=== PATIENT | male | born 1960 | race Caucasian/White ===

== ENCOUNTER 2024-02-26 14:02 | Outpatient (OUT) | payer OTHER, SELFPAY ==
--- NOTE | 2024-02-26 16:02 | P.CN_ITS ---
Consult Note: HPI Data of Consult Patient: new to practice Consult date: 02/26/24 Requesting Physician: Erum Ye MD Primary Care Provider: Non-Staff Physician, Consult Narrative Reason for consult: low back, left leg pain Narrative: 63yom who presents for evaluation. longstanding low back and left leg pain. previously underwent lumbar tfesi in july 2023, with significant relief >50% for over 3 months. also underwent lumbar medial branch blocks, with significant relief. lumbar imaging reviewed, significant for stenosis at multiple levels, worst at l4-5 and l5-s1. continues in a series of provider directed home exercises >6 weeks, without lasting benefit. uses gabapentin. denies adverse med side effects. cc:: CC: Erum Ye MD Review of Systems ROS Status of ROS 10 or more systems reviewed and unremark able except as noted in history and below Meds Home Medications and Allergies Home Medications ?Medication ?Instructions ?Recorded ?Confirmed ?Type acetaminophen 300 mg-codeine 30 mg 1 tab PO TID 02/26/24 02/26/24 History tablet acetaminophen 300 mg-codeine 30 mg 1 tab PO TID PRN pain #90 tabs 02/26/24 Rx tablet atorvastatin 20 mg tablet 20 mg PO DAILY 02/26/24 02/26/24 History baclofen 10 mg tablet 10 mg PO TID 02/26/24 02/26/24 History bupropion HBr 174 mg 150 mg PO BID 02/26/24 02/26/24 History tablet,extended release 24 hr cilostazol 100 mg tablet 100 mg PO BID 02/26/24 02/26/24 History clopidogrel 75 mg tablet 75 mg PO DAILY 02/26/24 02/26/24 History gabapentin 800 mg tablet 800 mg PO TID 02/26/24 02/26/24 History metoprolol succinate 25 mg capsule 25 mg PO DAILY 02/26/24 02/26/24 History sprinkle, ext. release 24 hr pantoprazole 40 mg tablet,delayed 40 mg PO DAILY 02/26/24 02/26/24 History release ropinirole 1 mg tablet 1 mg PO DAILY 02/26/24 02/26/24 History Allergies Allergy/AdvReac Type Severity Reaction Status Date / Time No Known Drug Allergies Allergy Verified 02/26/24 15:27 Exam Narrative Exam Narrative: Psych-alert and oriented x 3. Attentive and appropriate, constitutionally normal, displays normal mood and affect per situation. There are no obvious deficits in memory, reasoning, or intellect.? Skin-no obvious rashes, bruising, erythema noted to the patient's area of pain.? Extremities- extremities are warm with minimal edema and palpable pulses Lumbar-tenderness to palpation noted in the lumbar spine and paraspinal musculature. Pain is elicited with flexion, extension, and lateral rotation of the lumbar spine. Range of motion is diminished with these motions. Facet loading maneuvers are positive. Strength-noted to be unremarkable with the exception of decreased strength rated at 4 out of 5 in left quadriceps femoris, anterior tibialis. Sensory-no notable sensory deficits in the bilateral lower extremities to touch or pinprick in all dermatomal distributions with the exception to decreased sensation to the left L3, 4, 5 dermatomal distribution Coordination remains intact.? Gait remains non-antalgic. Assessment and Plan Assessment and Plan (1) Lumbar stenosis with neurogenic claudication: (2) Lumbar spondylosis: Plan 63yom who presents for evaluation. failed conservative measures, as noted. imaging reviewed, as noted. given symptoms and imaging findings, prudent to attempt left l4-5, l5-s1 transforaminal epidural steroid injection under fluoroscopic guidance. he is in agreement. meds reviewed. pdmp reviewed. uds obtained. will trial t#3 tid prn. follow up after procedure.
== END 2024-02-26 14:03 | disposition home or self-care (01) ==
PROVIDERS: Visit Provider Anesthesiology
DX: M48.062 Spinal stenosis, lumbar region with neurogenic claudication (principal); M47.816 Spondylosis without myelopathy or radiculopathy, lumbar region
CPT/HCPCS: G0463

== ENCOUNTER 2024-03-11 10:12 | Day surgery (SDC) | payer OTHER, SELFPAY ==
--- OUTSIDE RECORDS SUMMARY | 2024-03-11 10:27 | XMS_ITS | CCD ---
Author Organization [facility] Care Team Providers Care Staff Design Engineer Name Role Phone IFTIKHAR FREY Unavailable Unavailable NILL, IFTIKHAR Unavailable Unavailable MISC, DOCTOR Unavailable Unavailable PARKER BUSH Unavailable Unavailable NILHeavenly, IFTIKHAR Unavailable Unavailable JESSICA GOLDBERG Unavailable Unavailable ARAVIND BURNETT Unavailable Unavailable CHELI BRAMBILA Unavailable Unavailable Niki Deras Primary Care Provider NIKI DERAS Primary Care Unavailable ANKITA MENDEZ Admitting Unavailable ANKITA MENDEZ Attending Unavailable ANKITA MENDEZ Attending Unavailable VIVIAN ANDERSON Primary Care Unavailable ANKITA MENDEZ Admitting Unavailable Vivian Anderson Primary Care Provider Niki Deras Primary Care Provider SHANEL FRITZ Referring Unavailable NIKI DERAS Primary Care Unavailable YASMEEN TRAN Consulting Unavailable ROME RICHARDS Admitting Unavailable ROME RICHARDS Attending Unavailable Unavailable Primary Care Provider UnavailMagalie Benjamin APRN, CNP Primary Care Pro vider Magalie HENNING Primary Care Physician Magalie HENNING Primary Care Physician Guille ALICEA Primary Care Physician Magalie Malagon APRN, CNP Primary Care Pro vider Guille Alicea MD Primary Care Provider Beth Elias Primary Care Physician [phone] Beth Rogers APRN, CNP Primary Care Provider Unavailable Primary Care Provider UnavailBeth Cho APRN, CNP Primary Care Provider Beth Elias Primary Care Physician BETH ELIAS Primary Care Unavailable AVA HERRON Referring Unavailable CURT, BETH Primary Care Unavailable AVA HERRON W Referring Unavailable O'LEONEL, BELTRAN P Admitting Unavailable O'LEONEL, BELTRAN P Attending Unavailable BETH ELIAS Primary Care Unavailable Cresencio Andrade Attending Unavailable Cresencio Andrade Referring Unavailable Lion Beckman Referring Unavailable MD Lion Beckman Admitting Unavailable Lion Beckman Attending Unavailable Mirian Ugarte Attending Unavailable Beth Elias Attending Unavailable Beth Elias Attending Unavailable Beth Elias Attending Unavailable Ivis Bella Attending Unavailable Beth Elias LShaun Admitting Unavailable Beth Elias Attending Unavailable Cresencio Andrade Admitting Unavailable Cresencio Andrade Attending Unavailable Beth Elias Referring Unavailable EMILY Aranda Attending UnavailBeth Thomas LShaun Referring Unavailable Isaias Eliasmy LShaun Referring Unavailable EMILY Aranda Admitting UnavailEMILY Abdul Attending UnavailBeth Thomas Referring Unavailable EMILY Aranda Admitting UnavailEMILY Abdul Attending UnavailCresencio Al Admitting Unavailable Cresencio Andrade Attending Unavailable Cresencio Andrade Referring Unavailable Erum Ye MD Attending Unavailable Allergies Allergy Classification Reported Allergen(s) Allergy Type Date of Onset Reaction(s) Facility (1 source) No Known Medication Allergies; Translations: [No Known Medication Allergies] Propensity to adverse reactions (disorder) [facility] Repository Medications Current Medications Medication Drug Class(es) Dates Sig (Normalized) Sig (Original) Tylenol (8 sources) Start: 04-07-2023 Tylenol Refill s(s) 0 Start Date: 04/07/23 Status: Ordered Start: 01-12-2021 acetaminophen (TYLENOL) tablet 650 mg Start: 06-18-2020 End: 06-18-2020 acetaminophen (TYLENOL) tabl et 650 mg albuterol 0.833 mg/ml / ipratropium bromide 0.167 mg/ml inhalation solution (1 source) Anticholinergic, beta2-Adrenergic Agonist Start: 05-18-2022 End: 05-19-2022 ipratropium-albuterol (DUONEB) nebulizer solution 1 ampule amoxicillin 875 mg / clavulanate 125 mg oral tablet (2 sources) Penicillin-class Antibacterial Start: 01-15-2021 End: 01-25-2021 take 1 tablet by mouth every twelve hours amoxicillin-clavulanate (AUGMENTIN) 875-125 MG per tablet Take 1 tablet by mouth every 12 hours for 10 days 20 tablet 0 01/15/2021 01/25/2021 Active Start: 01-15-2021 amoxicillin-cl avulanate (AUGMENTIN) 875-125 MG per tablet 1 tablet atorvastatin 20 mg oral tablet (20 sources) HMG-CoA Reductase Inhibitor Start: 10-17-2023 take 1 tablet by mouth once daily atorvastatin 20 mg Tab 20 mg = 1 tab(s), Oral, Daily, # 90 tab(s), Refills(s) 3, Pharmacy: [facility] #[id number], 176, cm, 09/07/23 15:47:00 EDT, Height/Length Dosing, 82, kg, 09/07/23 15:47:00 EDT, Weight Dosing Start Date: 10/17/23 Status: Ordered Start: 05-02-2023 take 1 tablet by mey [facility] once daily atorvastatin 20 mg Tab 20 mg = 1 tab(s), Oral, Daily, # 90 tab(s), Refills(s) 3, Pharmacy: [facility] #[id number], 178, cm, 05/02/23 9:17:00 EST, Height/Length Dosing, 84.2, kg, 05/02/23 9:17:00 EST, Weight Dosing Start Date: 05/02/23 Status: Ordered Start: 04-05-2021 End: 08-08-2022 take 1 tablet by mouth once daily atorvastatin 20 mg Tab 20 mg = 1 tab(s), Oral, Daily, # 30 tab(s), Refills(s) 0 Start Date: 01/14/22 Status: Ordered Comment on above: Take 20 mg by mouth once daily. baclofen 10 mg oral tablet (20 sources) gamma-Aminobutyric Acid-ergic Agonist Start: 10-17-2023 End: 01-15-2024 take 1 tablet by mouth three times daily as needed for pain baclofen 10 mg Tab 10 mg = 1 tab(s), Oral, TID, PRN Muscle pain, X 90 day(s), # 270 tab(s), Refills(s) 0, Pharmacy: [facility] #37, 176, cm, 09/07/23 15:47:00 EDT, Height/Length Dosing, 82, kg, 09/07/23 15:47:00 EDT, Weight Dosing Start Date: 10/17/23 Stop Date: 01/15/24 Status: Ordered Start: 06-16-2023 End: 09-14-2023 take 1 tablet by mouth three times daily as needed for pain baclofen 10 mg Tab 10 mg = 1 tab(s), Oral, TID, PRN Muscle pain, X 90 day(s), # 270 tab(s), Refills(s) 0, Pharmacy: [facility] #[id number], 178, cm, 06/16/23 7:55:00 EST, Height/Length Dosing, 84.2, kg, 05/02/23 9:17:00 EST, Weight Dosing Start Date: 06/16/23 Stop Date: 09/14/23 Status: Ordered Start: 01-28-2021 End: 03-16-2023 take 1 tablet by mouth three times daily as needed for pain baclofen 10 mg Tab 10 mg = 1 tab(s), Oral, TID, PRN Muscle pain, X 90 day(s), # 270 tab(s), Refills(s) 0, Pharmacy: [facility] #[id number], 178, cm, 11/11/22 9:15:00 EDT, Height/Length Dosing, 73, kg, 10/14/22 8:44:00 EDT, Weight Dosing Start Date: 12/16/22 Stop Date: 03/16/23 Status: Ordered Comment on above: Take 1 tablet by mey three times daily. 12 hr buPROPion hydrochloride 150 mg extended release oral tablet (11 sources) Aminoketone Start: take 1 tablet by mouth twice daily buPROPion 150 mg ER Tab 150 mg = 1 tab(s), Oral, BID, # 60 tab(s), Refills(s) 3, Pharmacy: [facility] #37, 176, cm, 09/07/23 15:47:00 EDT, Height/Length Dosing, 82, kg, 09/07/23 15:47:00 EDT, Weight Dosing Start Date: 10/17/23 Status: Ordered Start: 05-02-2023 take 1 tablet by me[facility] twice daily buPROPion 150 mg ER Tab 150 mg = 1 tab(s), Oral, BID, # 60 tab(s), Refills(s) 3, Pharmacy: [facility] #[id number], 178, cm, 05/02/23 9:17:00 EST, Height/Length Dosing, 84.2, kg, 05/02/23 9:17:00 EST, Weight Dosing Start Date: 05/02/23 Status: Ordered Start: 02-07-2023 take 1 tablet by [facility] twice daily buPROPion 150 mg ER Tab 150 mg = 1 tab(s), Oral, BID, # 60 tab(s), Refills(s) 3, Pharmacy: [facility] #[id number], 178, cm, 02/07/23 11:02:00 EDT, Height/Length Dosing, 77.3, kg, 02/07/23 11:02:00 EDT, Weight Dosing Start Date: 02/07/23 Status: Ordered calcium chloride 0.0014 meq/ ml / potassium chloride 0.004 meq/ml / sodium chloride 0.103 meq/ml / sodium lactate 0.028 meq/ml injectable solution (2 sources) Start: 06-18-2020 lactated ringe rs infusion Start: 06-05-2020 lactated ringe rs infusion cephalexin 500 mg oral capsule (4 sources) Cephalosporin Antibacterial Start: 03-17-2022 take 1 capsule by mouth every eight hours cephalexin 500 mg Cap 500 mg = 1 cap(s), Oral, q8hr, # 30 cap(s), Refills(s) 0, Pharmacy: [facility] #37, 178, cm, 03/17/22 8:30:00 EDT, Height/Length Dosing, 77.1, kg, 03/17/22 8:30:00 EDT, Weight Dosing Start Date: 03/17/22 Status: Ordered cilostazol 100 mg oral tablet (20 sources) Phosphodiesterase 3 Inhibitor Start: 10-17-2023 cilostazol 100 mg Tab See Instructions, Take one tablet twice a day, # 90 EA, Refills(s) 3, Pharmacy: [facility] #37, 176, cm, 09/07/23 15:47:00 EDT, Height/Length Dosing, 82, kg, 09/07/23 15:47:00 EDT, Weight Dosing Start Date: 10/17/23 Status: Ordered Start: 07-23-2021 take 1 tablet by mey th twice daily cilostazol 100 mg Tab TAKE 1 TABLET BY MOUTH TWICE DAILY Start Date: 12/27/21 Status: Ordered Comment on above: Take 100 mg by mouth twice daily. clopidogrel 75 mg oral tablet (20 sources) [id number] Platelet Inhibitor Start: 2 End: 3 take 1 tablet by mouth once daily Plavix 75 mg Tab 75 mg = 1 tab(s), Oral, Daily, Refills(s) 0 Start Date: 08/27/21 Status: Ordered Comment on above: Take 75 mg by mouth once daily. diatrizoate meglumine-sodium (GASTROGRAFIN) 66-10 % solution 30 mL (1 source) Start: 1 diatrizoate meglumine-sodium (GASTROGRAFIN) 66-10 % solution 30 mL docusate sodium 50 mg / sennosides, custodial 8.6 mg oral tablet (9 sources) take 8.6-50 mg by mouth once senna-docusate (PERICOLACE) 8.6-50 MG per tablet Take 1 tablet by mouth daily 0 Active 0.4 ml enoxaparin sodium 100 mg/ml prefilled syringe (1 source) Low Molecular Weight Heparin Start: 1 enoxaparin (LOVENOX) injection 40 mg famotidine 40 mg oral tablet (18 sources) Histamine-2 Receptor Antagonist Start: 2 take 1 tablet by mouth once daily at bedtime famotidine (PEPCID) 40 MG tablet TAKE 1 TABLET BY MOUTH DAILY AT BEDTIME 0 09/28/2021 Active Start: 01-18-2022 take 1 tablet by mey th once daily at bedtime famotidine 40 mg Tab 40 mg = 1 tab(s), Oral, Once a day (at bedtime), # 30 tab(s), Refills(s) 1, Pharmacy: [facility] #37, 175, cm, 06/08/21 13:40:00 EST, Height/Length Dosing, 74.5, kg, 06/08/21 13:40:00 EST, Weight Dosing Start Date: 06/08/21 Status: Ordered Start: 01-12-2021 End: 01-15-2021 famotidine (PEPCID) injectio n 20 mg gabapentin 800 mg oral tablet (20 sources) Anti-epileptic Agent Start: 02-12-2024 take 1 tablet by mouth three times daily gabapentin 800 mg Tab 800 mg = 1 tab(s), Oral, TID, # 90 tab(s), Refills(s) 0, Pharmacy: [facility] #37, 176, cm, 02/02/24 8:14:00 EDT, Height/Length Dosing, 77.8, kg, 02/02/24 8:14:00 EDT, Weight Dosing Start Date: 02/12/24 Status: Ordered Start: 10-17-2023 take 1 tablet by mey three times daily gabapentin 600 mg Tab 600 mg = 1 tab(s), Oral, TID, # 270 tab(s), Refills(s) 0, Pharmacy: [facility] #37, 176, cm, 09/07/23 15:47:00 EDT, Height/Length Dosing, 82, kg, 09/07/23 15:47:00 EDT, Weight Dosing Start Date: 10/17/23 Status: Ordered Start: 06-16-2023 End: 09-14-2023 take 1 tablet by mouth three times daily gabapentin 600 mg Tab 600 mg = 1 tab(s), Oral, TID, X 90 day(s), # 270 tab(s), Refills(s) 0, [id number], cm, 06/16/23 7:55:00 EST, Height/Length Dosing, 84.2, kg, 05/02/23 9:17:00 EST, Weight Dosing Start Date: 06/16/23 Stop Date: 09/14/23 Status: Ordered Start: 06-10-2022 End: 07-10-2022 gabapentin 600 mg Tab 900 mg = 1.5 tab(s), Oral, TID, X 30 day(s), # 135 tab(s), Refills(s) 0, Pharmacy: [facility] #[id number], 178, cm, 06/10/22 13:55:00 EST, Height/Length Dosing, 73, kg, 06/10/22 13:55:00 EST, Weight Dosing Start Date: 06/10/22 Stop Date: 07/10/22 Status: Ordered Start: 12-24-2021 End: 03-16-2023 take 1 tablet by mouth three times daily gabapentin 600 mg Tab 600 mg = 1 tab(s), Oral, TID, X 90 day(s), # 270 tab(s), Refills(s) 0, Pharmacy: [facility] #[id number], 178, cm, 11/11/22 9:15:00 EDT, Height/Length Dosing, 73, kg, 10/14/22 8:44:00 EDT, Weight Dosing Start Date: 12/16/22 Stop Date: 03/16/23 Status: Ordered Start: 08-27-2021 End: 11-25-2021 take 1 tablet by mouth three times daily gabapentin 600 mg Tab 600 mg = 1 tab(s), Oral, TID, X 90 day(s), # 270 tab(s), Refills(s) 0, Pharmacy: [facility] #[facility], 178, cm, 08/27/21 10:52:00 EDT, Height/Length Dosing, 76.4, kg, 08/21/21 14:18:00 EDT, Weight Dosing Start Date: 08/27/21 Stop Date: 11/25/21 Status: Ordered Start: 01-21-2021 take 2 capsules by m outh three times daily gabapentin (NEURONTIN) 300 MG capsule TAKE 2 CAPSULES BY MOUTH THREE TIMES DAILY 0 01/21/2021 Active take 900 mg by mouth three times daily GABAPENTIN PO Take 900 mg by mouth 3 times daily 0 Suspended take 900 mg by mouth three times daily GABAPENTIN PO Take 900 mg by mouth 3 times daily 0 Active GABAPENTIN PO Ta ke by mouth daily 0 Suspended GABAPENTIN PO Ta ke by mouth daily 0 Active Comment on above: Take 600 mg by mouth three times daily. glucagon (rdna) 1 mg injection (1 source) Antihypoglycemic Agent Start: 05-18-2022 glucagon injection 1 mg 1000 ml glucose 100 mg/ml injection (3 sources) Start: 05-18-2022 dextrose 10 % infusion Start: 05-18-2022 dextrose bolus 10% 125 mL Start: 05-18-2022 glucose chewab le tablet 16 g ibuprofen 800 mg oral tablet (2 sources) Nonsteroidal Anti-inflammatory Drug Start: 01-15-2021 ibuprofen (ADVIL;MOTRIN) tablet 800 mg End: 06-04-2020 take 1 tablet by mouth every six hours as needed for pain ibuprofen (ADVIL;MOTRIN) 200 MG tablet Take 200 mg by mouth every 6 hours as needed for Pain. 0 06/04/2020 Discontinued (LIST CLEANUP) labetalol (NORMODYNE;TRANDATE) injection 10 mg (1 source) Start: 05-18-2022 labetalol (NORMODYNE;TRANDATE) injection 10 mg lidocaine 0.04 mg/mg medicated patch (2 sources) Antiarrhythmic, Amide Local Anesthetic Start: 06-10-2022 lidocaine 4% topical film 1 patch(es), Topical, Daily, 7 film, Refill(s) 0, 12 hours on 12 hours off PRN, [id number], 178, cm, 06/10/22 13:55:00 EST, Height/Length Dosing, 73, kg, 06/10/22 13:55:00 EST, Weight Dosing Start Date: 06/10/22 Status: Ordered Start: 06-18-2020 End: 06-18-2020 lidocaine (XYLOCAINE) 2 % ur o-jet 100 ml magnesium sulfate 10 mg/ml injection (1 source) Start: 01-12-2021 magnesium sulfate 1000 mg in dextrose 5% 100 mL IVPB 2 ml metoclopramide 5 mg/ml prefilled syringe (1 source) Dopamine-2 Receptor Antagonist Start: 05-18-2022 End: 05-19-2022 metoclopramide (REGLAN) injection 10 mg 24 hr metoprolol succinate 25 mg extended release oral tablet (20 sources) beta-Adrenergic Olamide Start: 06-13-2022 End: 08-08-2022 take 1 tablet by mouth once daily metoprolol succinate (TOPROL XL) 25 MG extended release tablet Take 1 tablet by mouth daily 90 tablet 3 08/08/2022 Active Start: 06-08-2021 Metoprolol suc cinate 25 mg ER Tablet Refills(s) 0 Start Date: 06/08/21 Status: Ordered Start: 04-05-2021 take 1 tablet by mey th once daily metoprolol succinate (TOPROL XL) 25 MG extended release tablet Take 1 tablet by mouth daily 90 tablet 3 01/07/2022 Suspended take 1 tablet by mey th once daily metoprolol succinate ER (TOPROL XL) 200 mg 24 hr tablet Take 200 mg by mouth once daily. 0 Active Comment on above: Take 200 mg by mouth once daily. 2 ml ondansetron 2 mg/ml injection (12 sources) Serotonin-3 Receptor Antagonist Start: 05-18-2022 End: 05-19-2022 ondansetron (ZOFRAN) injection 4 mg Start: 01-15-2021 take 1 tablet by mey th every eight hours as needed for nausea ondansetron (ZOFRAN-ODT) 4 MG disintegrating tablet Take 1 tablet by mouth every 8 hours as needed for Nausea or Vomiting 20 tablet 1 01/15/2021 Active Start: 01-12-2021 End: 01-12-2021 ondansetron (ZOFRAN) injecti on 4 mg Start: 06-04-2020 End: 06-05-2020 ondansetron (ZOFRAN) injecti on 4 mg Start: 06-04-2020 End: 01-12-2021 take 1 tablet by mouth every four hours as needed for nausea ondansetron (ZOFRAN ODT) 4 MG disintegrating tablet Take 1 tablet by mouth every 4 hours as needed for Nausea or Vomiting 10 tablet 0 06/04/2020 01/12/2021 Discontinued (LIST CLEANUP) ondansetron (ZOFRAN-ODT) disintegrating tablet 4 mg (1 source) Start: 01-12-2021 ondansetron (ZOFRAN-ODT) disintegrating tablet 4 mg oxyCODONE hydrochloride 5 mg oral tablet (1 source) Opioid Agonist Start: 06-05-2020 End: 06-05-2020 oxyCODONE (ROXICODONE) immediate release tablet 5 mg pantoprazole 40 mg delayed release oral tablet (20 sources) Proton Pump Inhibitor Start: 10-17-2023 take 1 tablet by mouth once daily Protonix 40 mg Tab-DR 40 mg = 1 tab(s), Oral, Daily, # 90 tab(s), Refills(s) 3, Pharmacy: [facility] #[facility], 176, cm, 09/07/23 15:47:00 EDT, Height/Length Dosing, 82, kg, 09/07/23 15:47:00 EDT, Weight Dosing Start Date: 10/17/23 Status: Ordered Start: 08-01-2023 take 1 tablet by mey th once daily Protonix 40 mg Tab-DR 40 mg = 1 tab(s), Oral, Daily, # 90 tab(s), Refills(s) 3, Pharmacy: [facility] #[id number], 178, cm, 08/01/23 8:07:00 EDT, Height/Length Dosing, 83.7, kg, 08/01/23 8:07:00 EDT, Weight Dosing Start Date: 08/01/23 Status: Ordered Start: 04-28-2021 End: 08-08-2022 take 1 tablet by mouth once daily Protonix 40 mg Tab-DR 40 mg = 1 tab(s), Oral, Daily, # 90 tab(s), Refills(s) 3, Pharmacy: [facility] #[id number], 178, cm, 07/22/22 14:01:00 EST, Height/Length Dosing, 80.9, kg, 07/22/22 14:01:00 EST, Weight Dosing Start Date: 07/22/22 Status: Ordered Start: 01-16-2021 pantoprazole ( PROTONIX) tablet 20 mg Start: 09-29-2014 take 1 tablet by mey th twice daily pantoprazole (PROTONIX) 20 MG tablet Take 1 tablet by mouth 2 times daily 60 tablet 11 09/29/2014 Active Comment on above: Take 40 mg by mouth once daily. polyethylene glycol 3350 [id number] mg powder for oral solution (1 source) Osmotic Laxative Start: 1 polyethylene glycol (GLYCOLAX) packet 17 g Potassium Chloride (1 source) Start: 1 potassium chloride (KLOR-CON M) extended release tablet 40 mEq pregabalin 100 mg oral capsule (12 sources) Start: 3 pregabalin 100 mg Cap 100 mg = 1 cap(s), Oral, TID, take twice a day for one week. If doing ok go to TID. DC GPN, # 90 cap(s), Refills(s) 0, Pharmacy: [facility] #[id number], 178, cm, 10/14/22 8:44:00 EDT, Height/Length Dosing, 73, kg, 10/14/22 8:44:00 EDT, Weight Dosing Start Date: 10/14/22 Status: Ordered Protonix 40 mg Tab-DR (1 source) Start: 2 take 1 tablet by mouth once daily Protonix 40 mg Tab-DR 40 mg = 1 tab(s), Oral, Daily, # 90 tab(s), Refills(s) 1, Pharmacy: [facility] #37, 175, cm, 06/23/21 10:13:00 EST, Height/Length Dosing, 74.5, kg, 06/08/21 13:40:00 EST, Weight Dosing Start Date: 07/27/21 Status: Ordered rOPINIRole 1 mg oral tablet (11 sources) Nonergot Dopamine Agonist Start: 4 take 1 tablet by mouth once daily at bedtime ropinirole 1 mg Tab 1 mg = 1 tab(s), Oral, Daily, 1 to 3 hours before bedtime, # 90 tab(s), Refills(s) 1, Pharmacy: [facility] #37, 176, cm, 09/07/23 15:47:00 EDT, Height/Length Dosing, 82, kg, 09/07/23 15:47:00 EDT, Weight Dosing Start Date: 10/17/23 Status: Ordered Start: 09-07-2023 take 1 tablet by mey th once daily at bedtime ropinirole 1 mg Tab 1 mg = 1 tab(s), Oral, Daily, 1 to 3 hours before bedtime, # 90 tab(s), Refills(s) 1, Pharmacy: [facility] #37, 178, cm, 08/02/23 10:58:00 EDT, Height/Length Dosing, 83.7, kg, 08/01/23 8:07:00 EDT, Weight Dosing Start Date: 09/07/23 Status: Ordered Start: 05-02-2023 take 1 tablet by mey th once daily at bedtime ropinirole 1 mg Tab 1 mg = 1 tab(s), Oral, Daily, 1 to 3 hours before bedtime, # 90 tab(s), Refills(s) 0, Pharmacy: [facility] #[id number], 178, cm, 05/02/23 9:17:00 EST, Height/Length Dosing, 84.2, kg, 05/02/23 9:17:00 EST, Weight Dosing Start Date: 05/02/23 Status: Ordered Start: 02-07-2023 End: 06-07-2023 take 1 tablet by mouth at bedtime ropinirole 0.5 mg Tab 0.5 mg = 1 tab(s), Oral, Bedtime, X 30 day(s), # 30 tab(s), Refills(s) 3, Pharmacy: [facility] #[id number], 178, cm, 02/07/23 11:02:00 EDT, Height/Length Dosing, 77.3, kg, 02/07/23 11:02:00 EDT, Weight Dosing Start Date: 02/07/23 Stop Date: 06/07/23 Status: Ordered 5 ml sodium chloride 9 mg/ml injection (9 sources) Start: 05-18-2022 0.9 % sodium c hloride infusion Start: 05-18-2022 sodium chlorid e flush 0.9 % injection 5-40 mL Start: 01-13-2021 sodium chlorid e flush 0.9 % injection 10 mL Start: 01-12-2021 sodium chlorid e flush 0.9 % injection 5-40 mL Start: 01-12-2021 End: 01-15-2021 0.9 % sodium chloride infusi on Start: 01-12-2021 End: 01-12-2021 0.9 % sodium chloride bolus triamcinolone acetonide 0.001 mg/mg topical ointment (20 sources) Corticosteroid Start: 10-17-2023 triamcinolone Top 0.1% Oint 1 ted, Topical, TID Dry skin, 30 gm, Refill(s) 0, [facility] #37, 176, cm, 09/07/23 15:47:00 EDT, Height/Length Dosing, 82, kg, 09/07/23 15:47:00 EDT, Weight Dosing Start Date: 10/17/23 Status: Ordered Start: 07-22-2022 triamcinolone Top 0.1% Oint 1 ted, Topical, TID Dry skin, 30 gm, Refill(s) 0, [facility] #[id number], 178, cm, 07/22/22 14:01:00 EST, Height/Length Dosing, 80.9, kg, 07/22/22 14:01:00 EST, Weight Dosing Start Date: 07/22/22 Status: Ordered Start: 03-15-2021 triamcinolone Top 0.1% Crm 1 ted, Topical, TID Rash, 30 gram, Refill(s) 1, [facility] #37, 175, cm, 03/15/21 14:04:00 EDT, Height/Length Dosing, 71.1, kg, 03/15/21 14:04:00 EDT, Weight Dosing Start Date: 03/15/21 Status: Ordered Start: 03-15-2021 triamcinolone Top 0.1% Crm 1 ted, Topical, TID Rash, 30 gram, Refill(s) 1, [facility] #37, 175, cm, 03/15/21 14:04:00 EDT, Height/Length Dosing, 71.1, kg, 03/15/21 14:04:00 EDT, Weight Dosing Start Date: 03/15/21 Status: Ordered Comment on above: Apply 1 application to affected area three times daily as needed. varenicline 0.5 mg oral tablet (7 sources) Partial Cholinergic Nicotinic Agonist Start: 10-03-2022 varenicline 0.5 mg oral tablet See Instructions, 1 tab(s) by mouth daily x3 days then 1 tab (s) by mouth x4 days., # 11 tab(s), Refills(s) 0, Pharmacy: [facility] #[id number], 178, cm, 09/21/22 13:00:00 EDT, Height/Length Dosing, 75, kg, 09/12/22 8:55:00 EDT, Weight Dosing Start Date: 10/03/22 Status: Ordered Start: 10-03-2022 take 1 tablet by [facility] twice daily varenicline 1 mg oral tablet 1 mg = 1 tab(s), Oral, BID, # 60 tab(s), Refills(s) 1, Pharmacy: [facility] #[id number], 178, cm, 09/21/22 13:00:00 EDT, Height/Length Dosing, 75, kg, 09/12/22 8:55:00 EDT, Weight Dosing Start Date: 10/03/22 Status: Ordered Start: 09-12-2022 take 1 tablet by [facility] once daily Chantix Starter Pack 0.5 mg-1 mg oral tablet See Instructions, 0.5mg daily day 1-3 0.5mg BID day 4-7 1mg BID day 8 until end of treatment, # 1 kit(s), Refills(s) 0, Pharmacy: [facility] #[id number], 178, cm, 09/12/22 8:55:00 EDT, Height/Length Dosing, 75, kg, 09/12/22 8:55:00 EDT, Weight... Start Date: 09/12/22 Status: Ordered Completed/Discontinued Medications Medication Drug Class(es) Dates Sig (Normalized) Sig (Original) acetaminophen 325 mg / HYDROcodone bitartrate 5 mg oral tablet (1 source) Opioid Agonist Start: 06-18-2020 End: 06-18-2020 HYDROcodone-acetam inophen (NORCO) 5-325 MG per tablet 1 tablet Start: 06-18-2020 End: 06-18-2020 HYDROcodone-acetaminophen (N ORCO) 5-325 MG per tablet 1 tablet acetaminophen 325 mg / oxyCODONE hydrochloride 5 mg oral tablet (3 sources) Opioid Agonist Start: 06-04-2020 End: 06-07-2020 take 1 tablet by mouth every six hours as needed for pain, then take 1 tablet by mouth as needed for pain oxyCODONE-acetaminophen (PERCOCET) 5-325 MG per tablet Indications: Left renal stone Take 1 tablet by mouth every 6 hours as needed for Pain for up to 3 days. Intended supply: 3 days. Take lowest dose possible to manage pain 12 tablet 0 06/04/2020 06/07/2020 200 ml ciprofloxacin 2 mg/ml injection (3 sources) Quinolone Antimicrobial Start: 01-12-2021 End: 01-13-2021 ciprofloxacin (CIPRO) IVPB 400 mg Start: 06-18-2020 End: 06-18-2020 ciprofloxacin (CIPRO) IVPB 4 00 mg Start: 06-05-2020 End: 06-05-2020 ciprofloxacin (CIPRO) IVPB 4 00 mg dimenhyDRINATE 50 mg oral tablet (1 source) Start: 06-18-2020 End: 06-18-2020 dimenhyDRINATE (DRAMAMINE) tablet 50 mg esomeprazole 40 mg delayed release oral capsule (2 sources) Proton Pump Inhibitor Start: 08-18-2014 End: 06-05-2020 take 1 capsule by mouth once daily esomeprazole (NEXIUM) 40 MG capsule Take 1 capsule by mouth daily. 30 capsule 3 08/18/2014 06/05/2020 Discontinued (DISCONTINUED BY ANOTHER CLINICIAN) 2 ml fentaNYL 0.05 mg/ml injection (4 sources) Opioid Agonist Start: 01-13-2021 End: 01-13-2021 fentaNYL (SUBLIMAZE) injection Start: 06-05-2020 fentaNYL (SUBL IMAZE) injection 50 mcg Start: 06-05-2020 fentaNYL (SUBL IMAZE) injection 25 mcg iopamidol (ISOVUE-370) 76 % injection 100 mL (2 sources) Start: 02-08-2021 End: 02-08-2021 iopamidol (ISOVUE-370) 76 % injection 100 mL Start: 06-04-2020 End: 06-04-2020 iopamidol (ISOVUE-370) 76 % injection 100 mL iopamidol (ISOVUE-370) 76 % injection 75 mL (1 source) Start: 01-12-2021 End: 01-12-2021 iopamidol (ISOVUE-370) 76 % injection 75 mL ketoconazole 20 mg/ml topical cream (5 sources) Azole Antifungal Start: 10-02-2014 End: 01-12-2021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 not intended for use in patients <18 years of age. eGFR results are calculated without a race factor using the 2020 CKD-EPI equation. Careful clinical correlation is recommended, particularly when comparing to results calculated using previous equations. The CKD-EPI equation is less accurate in patients with extremes of muscle mass, extra-renal metabolism of creatinine, excessive creatinine ingestion, or following therapy that affects renal tubular secretion. Performed By: #### P LEN #### [facility] [address] [place] [address] POC Performed on SEE BELOW Normal [facility] Comment on above: Result Comment: Perf ormed on POC Performed By: #### P LEN #### [facility] [address] [place] [address] POC Sample Type LEN Normal [facility] Comment on above: Performed By: #### P LEN #### [facility] [address] [place] [address] Family Medicine Office/Clini c Noteon 02-02-2024 Family Medicine Office/Clinic Note Family Medicine Office/Clinic Note HPI Staff Patient is here for follow up on hypertension. Hyperlipidemia How often are you checking your blood pressure? Not checking What are your average readings? Are you compliant with your diet? yes Do you exercise? no Are you compliant with your medications? yes Are you having difficulty affording your medications? no Do you have side effects from the medication? no Do you have any of the following symptoms? Chest Pain? no Palpitations? no MULLINS/SOB? no Headache? no Peripheral Edema? no Light Headedness? no Sore legs and feet, numbness when walking, thinks could be from low back pain .. History of Present Illness a 63-year-old male presenting today for a 6-month chronic care follow-up. HPI staff / Chief Complaint confirmed with the patient Social: The patient is ; The patient is currently working; Screening: Colon Cancer screening: couple years with a 1 year f/u recommended; this patient does _ have family history of colon cancer: took polyps out supposed to follow up in 1 year but never did Labs: 08/01/2023 PSA: 1.1 on 02/2022 ; this patient does _ have a family history of prostate cancer Smokers/ former smokers: Low dose lung CT: _ List of Providers: Pain clinic: Dr Andrade Cardiovascular surgeon: Dr Yan Manager Research: Dr Izaguirre Community Support Professional: [facility] Cr/eGFR: eGFR: 95 mL/min/1.73 m2 (08/01/23 08:56:00) Creatinine: 0.9 mg/dL (08/01/23 08:56:00) A1c: No qualifying data available. TSH: No qualifying data available. Vit D: No qualifying data available. LDL: LDL Direct: 72 mg/dL (08/01/23 08:56:00) Lipids: Chol: 125 mg/dL (08/01/23 08:56:00) HDL: 42 mg/dL (08/01/23 08:56:00) LDL Direct: 72 mg/dL (08/01/23 08:56:00) Tri mg/dL (08/01/23 08:56:00) VLDL: 18 mg/dL (08/01/23 08:56:00) The patient is experiencing lumbar pain and is in the process of obtaining credential insurance. He followed up with the specialist, but he is not in the network with his insurance. Previously, he received an injection from Dr. Andrade, which provided temporary relief. Currently, he is waiting for Dr. Andrade to approve another procedure. He has to undergo another procedure to numb the area before proceeding to ablation. There are 3 to 4 step processes. He inquires about the appropriate steps to take in the meantime. He states that it has been 4 or 5 months. He is frustrated. He continues to take gabapentin but is uncertain of its effectiveness. His neurosurgeon has advised against further intervention due to potential long-term implications. After walking for a while, he experiences tingling in his foot and leg pain, which he suspects may be due to poor blood circulation from stents. He reports severe foot pain that is significantly impacting his ability to walk. Occasionally he notices that removing his shoes and trying to walk exacerbates the pain. He experiences a need to defecate, often needing to strain. He takes a stool softener daily while working, as he cannot take it before work due to time constraints. The effectiveness of the stool softener varies. His last colonoscopy was a few years ago, during which polyps were removed. He was supposed to follow up back with Dr. Izaguirre for another colonoscopy within a year but did not follow through. He is planning to schedule an appointment. He has tried MiraLAX in the past, but it caused work-related issues. He had a single bowel movement after taking 2 pills. He denies hematochezia. He has a history of irritable bowel syndrome. He has a nodule on his leg, which has not increased in size. He had a similar nodule in the same leg, which resolved after bursting. He has dry spots on his skin that become erythematous and bleed when he bumps himself. He follows up with a top former, Dr. Gonsalves, who monitors for cancer. SOCIAL HISTORY The patient smokes. He is currently working 3 days a week. FAMILY HISTORY He denies any family history of colon cancer. His father and mother due to cancer. Review of Systems PHQ Score Initial Depression Screen Score: 0 SCORE Negative as stated in the HPI. Physical Exam Vitals & Measurements T: 36.4 ?C(Temporal Artery) HR: 74(Peripheral) RR: 18 BP: 128/82 SpO2: 96% HT: 69 in HT: 176 cm WT: 77.8 kg WT: 171.16 lb BMI: 25.12 Constitutional: Well-groomed, well-nourished, no signs of acute distress. HEENT: Head normocephalic, sclera is clear. Cardiothoracic: Heart rate and rhythm is regular strong, normal S1 and S2. No murmurs, rubs, or bruits auscultated. No peripheral edema, peripheral pulses +2 Respiratory: Lung sounds are clear throughout, respirations regular nonlabored. Abdomen/GI: Abdomen soft nondistended. Musculoskeletal: Gait is steady, full range of motion. Integument: No rashes or lesions noted to the exposed skin. Psychiatric: Alert and oriented x 3, pleasant, no mood changes. Assessment/Plan 1. Benign essential HTN (I10: Essential (more content not included)... Normal [facility] Comment on above: Result Comment: Elec tronically Signed By: Curt AQUINO, ELECTRIC NEEDLE SPECIALIST- REACTOR SERVICE OPERATOR, Beth Dash\.br\Date and Time Signed: 02/02/24 11:03 EDT\.br\Electronically Co-Signed By: Oni Gabriel\.br\Date and Time Co-Signed: 02/02/24 09:58 EDT Main OR Intraoperative Recor gwendolyn 12-27-2023 Main OR Intraoperative Record Main OR Intraoperative Record IntraOp Document Type FT Summary Primary Physician: Cresencio Andrade DO Finalized Date/Time: 12/27/23 13:20:06 Pt. Name: DENVER PERDUE/Sex: 1960 Male Med Rec #: [id number] Physician: Cresencio Andrade DO Financial #: [id number] Pt. Type: P Room/Bed: / Admit/Disch: 12/27/23 11:47:54 - Institution: Case Times FTPM Entry 1 Patient Times In Room 12/27/23 13:11:00 Out Room 12/27/23 13:20:00 Procedure Times Start 12/27/23 13:14:00 Stop 12/27/23 13:19:00 Anesthesia Times Last Modified By: Safia Bruno RN 12/27/23 13:19:37 Case Attendance FTPM Entry 1 Entry 2 Entry 3 Case Attendee Cresencio Andrade DO, RN, Safia Soto RN, Martita Miller Role Performed Surgeon - Primary Pole Sander Operator - Primary Scrub - Primary Time In 12/27/23 13:11:00 12/27/23 13:11:00 12/27/23 13:11:00 Time Out 12/27/23 13:20:00 12/27/23 13:20:00 12/27/23 13:20:00 Procedure MEDIAL BRANCH MEDIAL BRANCH MEDIAL BRANCH BLOCK(Bilateral) BLOCK(Bilateral) BLOCK(Bilateral) Comments Last Modified By: Damion MENON, Safia Bruno RN, Safia Blum RN 12/27/23 13:19:38 12/27/23 13:19:38 12/27/23 13:19:38 Entry 4 Case Attendee Alla Friend Role Performed Director Targeted Marketing Time In 12/27/23 13:11:00 Time Out 12/27/23 13:20:00 Procedure MEDIAL BRANCH BLOCK(Bilateral) Comments Last Modified By: Safia Bruno RN 12/27/23 13:19:38 Perioperative Protocols FTPM Pre-Care Text: Implements protective measures prior to operative or invasive procedure, confirms identity before the operative or invasive procedure, verifies operative procedure, surgical site, and laterality Entry 1 Procedure(s) MEDIAL BRANCH Patient Identity Birthday, ID Band BLOCK(Bilateral) Verified (select at Check, Patient least 2): Participation Consents / H and P H&P, Surgery/Procedure Operative Site Present Verified Consent Marking Verified Surgical Site Yes Laterality Verified Yes Verified Procedure Verified Yes Correct Patient Yes Position Verified Availability Equipment, Medication, Prep Dry Yes Verified (If X-ray Applicable) PreOp Antibiotic No Time Out Safia Bruno RN, Roderick RN, Raymond Rivera DO, Bradford A., Ott, Amy Time Out Complete 12/27/23 13:11:00 Outcomes Met? Yes Last Modified By: Safia Bruno RN 12/27/23 13:12:01 Post-Care Text: The patient is free from signs and symptoms of injury caused by extraneous objects Allergy Information FTPM Pre-Care Text: Verifies allergies Entry 1 Allergies Reviewed? Yes Allergies Reviewed Self/Patient With Outcomes Met? Yes Last Modified By: Safia Bruno RN 12/27/23 13:09:37 Post-Care Text: The patient received appropriate medication(s) safely administered during the perioperative period Surgical Procedures FTPM Entry 1 Procedure Description Procedure MEDIAL BRANCH BLOCK Modifiers Bilateral Surgeon Description L3-5 MBB Primary Procedure Yes Primary Surgeon Cresencio Andrade DO Start 12/27/23 13:14:00 Stop 12/27/23 13:19:00 Anesthesia Type None Surgical Service Pain Management Wound Class 1 - Clean Last Modified By: Safia Bruno RN 12/27/23 13:19:40 General Case Data FTPM Pre-Care Text: Classifies surgical wound, implements aseptic technique, initiates traffic control Entry 1 Case Information OR Pain Proc Room Case Level Level 2 Wound Class 1 - Clean Specialty Pain Management Preop Diagnosis M47.816 Postop Same As Preop Yes Postop Diagnosis M47.816 Outcomes Met? Yes Last Modified By: Safia Bruno RN 12/27/23 13:12:08 Post-Care Text: The patient is free from signs and symptoms of infection Skin Assessment (Pre Procedure) FTPM Pre-Care Text: Implements protective measures to prevent skin/ tissue injury due to thermal or mechanical sources Evaluates for signs and symptoms of physical injury to skin and tissue Entry 1 Skin Integrity Intact, [place], Warm, & Skin Abnormality No Dry Outcomes Met? Yes Last Modified By: Safia Bruno RN 12/27/23 13:09:49 Post-Care Text: The patient is free from signs and symptoms of injury caused by extraneous objects Patient Positioning FTPM Pre-Care Text: Identifies physical alterations that require additional precautions for procedure-specific positioning, verifies presence of prosthetics or corrective devices, positions the patient, evaluates the patient for signs and symptoms of injury as a result of positioning Entry 1 Procedure MEDIAL BRANCH Body Position Prone BLOCK(Bilateral) Feet Uncrossed? Yes Left Arm Position Resting at Side Right Arm Position Resting at Side Left Leg Position Extended Right Leg Position Extended Positioning Device Pillow Under Head Large, Safety Strap, Pillow Large Under Knees Press Points Checked Yes By Safia Bruno RN Outcomes Met? Yes Last Modified By: Tomi (more content not included)... Normal [facility] Main OR Preoperative Recordo n 12-27-2023 Main OR Preoperative Record Main OR Preoperative Record Holding Area Document Type FTPM Summary Primary Physician: Cresencio Andrade DO Finalized Date/Time: 12/27/23 12:18:34 Pt. Name: SHANNAN DENVER Lopez./Sex: 1960 Male Med Rec #: [id number] Physician: Cresencio Andrade DO Financial #: [id number] Pt. Type: Room/Bed: / Admit/Disch: 12/27/23 11:47:54 - Institution: Case Times Holding FTPM Pre-Care Text: Verifies consent for planned procedure, identifies individual values and wishes concerning care, includes family members in perioperative teaching Secures patient's records' belongings, and valuables, maintains patient's dignity and privacy, and maintains patient confidentiality Entry 1 In Holding 12/27/23 11:58:00 Outcomes Met? Yes Last Modified By: Guille Brown RN 12/27/23 11:58:07 Post-Care Text: The patient participates in decisions affecting his or her perioperative plan of care The patient's right to privacy is maintained Surgery Checklist FTPM Entry 1 Patient Birthday, ID Band Procedure History and Physical, Identification: Check, Patient Verification: Surgical Consent, With Participation Patient NPO after Midnight: No Date/Time: 12/27/23 11:58:00 Results Reviewed coffee 0800 Personal Items: Glasses, Jewelry Comments: Personal Items necklace and glasses Complaints of Pain: Yes Comment: Pain Comment: 02/28 lower back Operative Site Yes Marking: Marked By: Dr. Andrade Location: Bilateral L3-5 Availability Equipment, X-Ray Verified: Does Patient Smoke Yes If Yes to Smoking. 1 PPD Cigars or Cigarettes. How much per day? Patient states Yes Comment - Adult - Brooke postop adult Supervision supervision available Case Cancelled in No Holding Area see comments below for reason Last Modified By: Guille Brown RN 12/27/23 12:18:33 Finalized By: Guille Brown RN Document Signatures Signed By: Guille Brown RN 12/27/23 12:01 Guille Brown RN 12/27/23 12:18 Normal [facility] Insurance Correspondence Off iceon 11-02-2023 Insurance Correspondence Office [id number]#2.00 TIFF Normal [facility] RAD - MISCon 09-14-2023 RAD - MISC [id number]#1.00T IFF Normal [facility] XR ABDOMEN (KUB) (SINGLE AP VIEW)on 09-13-2023 XR ABDOMEN (KUB) (SINGLE AP VIEW) EXAM: XR ABDOMEN (KUB) (SINGLE AP VIEW) HISTORY: Kidney stones. COMPARISON: 07/26/2022. IMPRESSION: FINDINGS/IMPRESSION: 1. 5 mm stone versus stool superior pole right kidney, new. 2. Aortoiliac stent graft unchanged. Interpreted by: Claus Cornelius Jr., MD Signed by: Claus Cornelius Jr., MD 09/13/23 Final result Normal [facility] Office/Clinic Note-Physician on 09-12-2023 Office/Clinic Note-Physician [id number]#1.00 TIFF Normal [facility] Consent for Treatmenton 08-20 Consent for Treatment [id number]#1.00 TIFF Normal [facility] Consultation Noteon 09-07-19 Consultation Note Patient is presentin as a follow-up after his L5/S1 interlaminar epidural steroid injection on 08/02/2019 for the provided 75% pain relief and completely resolved his radicular symptoms. At present he still has axial back pain that he rates as a 4/10 but can be a 7/10 particularly in the morning as well as with twisting turning and bending. He is not radiation of any of these pain. This is different in nature than previous pain that he experienced with radicular symptoms. we did review his CT lumbar spine studies and discussed that this is likely spondyloarthropathy in nature as he does have degenerative changes throughout his lumbar spine. He has completed formal physical therapy in the remote past and participates in home stretching and strengthening exercises on a regular basis. He has tried acetaminophen and is unable to take NSAIDs secondary to Plavix use. Additionally, he feels that baclofen gabapentin not help with his axial component of his back pain. BARRETT Score: 52% i PHQ-2: 5 Patient denies any symptoms of progressively worsening upper/lower extremity weakness, progressively worsening gait abnormality, new onset bowel/bladder incontinence/ urinary retention, or saddle anesthesia. No new or worsening symptoms of fever, chills, night sweats. 14 Point Review of systems negative unless otherwise noted. General: No acute distress. Patient appears well-nourished. HEENT: Head is normocephalic and external ears are normal in appearance. Cardiovascular: No signs of poor perfusion and no peripheral edema Pulmonary: Nonlabored breathing, symmetric chest movement. GI: Abdomen nondistended Integumentary: No lesions Musculoskeletal: Laterally tender to palpation lumbar paraspinal musculature and underlying facets bilaterally. Neurologic: Alert, oriented x3. 5/5 strength grossly in the bilateral upper extremities. Sensation intact to light touch in the bilateral upper extremities. 5/5 strength grossly in the bilateral lower extremities. Sensation intact to light touch in the bilateral lower extremities. Special Testing: Negative Josue sign bilaterally, seated straight leg raise test not reproduce radicular sign bilaterally, lumbar facet loading did reproduce axial back pain. History, physical examination, and personal review of pertinent imaging results indicate a diagnosis of: -Lumbar radiculopathy, significantly proved -Lumbar spondyloarthropathy Plan: -Patient on XR sponsored L5/S1 interlaminar epidural steroid injection and his radicular symptoms are significantly improved and completely gone at present he still has persistent axial back pain that is spondylarthritis in nature we will plan to perform bilateral L3-5 medial branch blocks to target the L4/5 and L5-S1 facet joints under fluoroscopic guidance -Will continue on gabapentin and baclofen -Follow-up 1 to 2 weeks postinjection or sooner if any issues arise Patient was counseled on the above diagnosis and treatment, all questions were answered and patient agrees to adhere to the plan above. Risk and benefits of appropriate procedures and medications were reviewed as well with patient, who voiced understanding and agreeance. Patient was counseled on appropriate use of opioids if prescribed or renewed today and naloxone was offered to patient if opioids were prescribed or maintained at this visit. Patient was counseled on smoking cessation and/or continuing to abstain from nicotine/tobacco products as appropriate based on history; as smoking/nicotine can contribute to increased pain overall and decreased wound healing. Patient counseled on maintaining a healthy BMI as part of the total treatment of their pain and to reduce stress/strain on joints. Patient invited to return or call with any questions or concerns that arise. [facility] Comment on above: Result Comment: Elec tronically Signed By: Cresencio Andrade DO.br\Date and Time Signed: 09/07/23 16:43 EDT Office/Clinic Note-Nurseon 0 09-07-2023 Office/Clinic Note-Nurse [id number]#1.00 TIFF [facility] Office/Clinic Note-Physician on 09-07-2023 Office/Clinic Note-Physician [id number]#1.00 TIFF [facility] Patient Correspondenceon Patient Correspondence [id number]#1.00 TIFF [facility] Patient Correspondence [id number]#1.00 TIFF [facility] Patient History Officeon Patient History Office [id number]#1.00 TIFF [facility] Consent for Procedure/Surger yon 08-02-2023 Consent for Procedure/Surgery [id number]#1.00 TIFF [facility] Consent for Treatmenton 07-20 Consent for Treatment [id number] IFF Normal [facility] Discharge Instructionson Discharge Instructions [id number]#1.00 TIFF Normal [facility] IntraOperative Documentson 0 08-02-2023 IntraOperative Documents [id number]#1.00 TIFF Normal [facility] Main OR Intraoperative Recor don 08-02-2023 Main OR Intraoperative Record IntraOp Document Type FTPM Summary Primary Physician: Cresencio Andrade DO Finalized Date/Time: 08/02/23 11:31:39 Pt. Name: SHANNAN DENVERSIVAKUMAR Burdick D.O.B./Sex: 1960 Male Med Rec #: [id number] Physician: Cresencio Andrade DO Financial #: [id number] Pt. Type: P Room/Bed: / Admit/Disch: 08/02/23 10:35:56 - Institution: Case Times FTPM Entry 1 Patient Times In Room 08/02/23 11:26:00 Out Room 08/02/23 11:32:00 Procedure Times Start 08/02/23 11:29:00 Stop 08/02/23 11:31:00 Anesthesia Times Last Modified By: Martita Soto RN 08/02/23 11:31:34 Case Attendance FTPM Entry 1 Entry 2 Entry 3 Case Attendee Cresencio Andrade DO, RN, Martita Bruno RN, [facility] Role Performed Surgeon - Primary Pole Sander Operator - Primary Scrub - Primary Time In 08/02/23 11:26:00 08/02/23 11:26:00 08/02/23 11:26:00 Time Out 08/02/23 11:32:00 08/02/23 11:32:00 08/02/23 11:32:00 Procedure LUMBAR EPIDURAL STEROID LUMBAR EPIDURAL STEROID LUMBAR EPIDURAL STEROID INJECTION(.) INJECTION(.) INJECTION(.) Comments Last Modified By: Charles MENONMartita RN, Martita Concepcion RN 08/02/23 11:31:35 08/02/23 11:31:35 08/02/23 11:31:35 Entry 4 Case Attendee Felecia TAYLORR)Shahrzad Role Performed Director Targeted Marketing Time In 08/02/23 11:26:00 Time Out 08/02/23 11:32:00 Procedure LUMBAR EPIDURAL STEROID INJECTION(.) Comments Last Modified By: Martita Soto RN 08/02/23 11:31:35 Perioperative Protocols FTPM Pre-Care Text: Implements protective measures prior to operative or invasive procedure, confirms identity before the operative or invasive procedure, verifies operative procedure, surgical site, and laterality Entry 1 Procedure(s) LUMBAR EPIDURAL STEROID Patient Identity Birthday, ID Band INJECTION(.) Verified (select at Check, Patient least 2): Participation Consents / H and P HandP, Surgery/Procedure Operative Site Present Verified Consent Marking Verified Surgical Site Yes Laterality Verified Yes Verified Procedure Verified Yes Correct Patient Yes Position Verified Availability Equipment, Medication, Prep Dry Yes Verified (If X-ray Applicable) PreOp Antibiotic No Time Out Martita Soto RN, Given Participants Damion MENON, Raymond Stafford DO, Bradford A., Christman RT(R)Shahrzad Time Out Complete 08/02/23 11:26:00 Outcomes Met? Yes Last Modified By: Martita Soto RN 08/02/23 11:26:34 Post-Care Text: The patient is free from signs and symptoms of injury caused by extraneous objects Allergy Information FTPM Pre-Care Text: Verifies allergies Entry 1 Allergies Reviewed? Yes Allergies Reviewed Self/Patient With Outcomes Met? Yes Last Modified By: Martita Soto RN 08/02/23 11:26:41 Post-Care Text: The patient received appropriate medication(s) safely administered during the perioperative period Surgical Procedures FTPM Entry 1 Procedure Description Procedure LUMBAR EPIDURAL STEROID Modifiers . INJECTION Surgeon Description L5-S1 KRISTEN Primary Procedure Yes Primary Surgeon Cresencio Andrade DO Start 08/02/23 11:29:00 Stop 08/02/23 11:31:00 Anesthesia Type None Surgical Service Pain Management Wound Class 1 - Clean Last Modified By: Martita Soto RN 08/02/23 11:31:36 General Case Data FTPM Pre-Care Text: Classifies surgical wound, implements aseptic technique, initiates traffic control Entry 1 Case Information OR Pain Proc Room Case Level Level 2 Wound Class 1 - Clean Specialty Pain Management Preop Diagnosis M54.16 Postop Same As Preop Yes Postop Diagnosis M54.16 Outcomes Met? Yes Last Modified By: Martita Soto RN 08/02/23 11:26:50 Post-Care Text: The patient is free from signs and symptoms of infection Skin Assessment (Pre Procedure) FTPM Pre-Care Text: Implements protective measures to prevent skin/ tissue injury due to thermal or mechanical sources Evaluates for signs and symptoms of physical injury to skin and tissue Entry 1 Skin Integrity Intact, [place], Warm, and Skin Abnormality No Dry Outcomes Met? Yes Last Modified By: Martita Soto RN 08/02/23 11:26:59 Post-Care Text: The patient is free from signs and symptoms of injury caused by extraneous objects Patient Positioning FTPM Pre-Care Text: Identifies physical alterations that require additional precautions for procedure-specific positioning, verifies presence of prosthetics or corrective devices, positions the patient, evaluates the patient for signs and symptoms of injury as a result of positioning Entry 1 Procedure LUMBAR EPIDURAL STEROID Body Position Prone INJECTION(.) Feet Uncrossed? Yes Left Arm Position Resting at Side Right Arm Position Resting at Side Left Leg Position Extended Right Leg Position Extended Positioning Device Pillow Under Head Large, Safety Strap, Pillow Large Under Knees Press Points Checked Yes By Martita Soto RN Outcomes Met? Yes Last Modifie (more content not included)... Normal [facility] Main OR Preoperative Recordo n 08-02-2023 Main OR Preoperative Record Holding Area Document Type FTPM Summary Primary Physician: Cresencio Andrade DO Finalized Date/Time: 08/02/23 10:54:28 Pt. Name: DENVER PERDUE/Sex: 1960 Male Med Rec #: [id number] Physician: Cresencio Andrade DO Financial #: [id number] Pt. Type: P Room/Bed: / Admit/Disch: 08/02/23 10:35:56 - Institution: Case Times Holding FTPM Pre-Care Text: Verifies consent for planned procedure, identifies individual values and wishes concerning care, includes family members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 Refills(s) 3, Pharmacy: [facility] #[id number], 178, cm, 02/07/23 11:02:00 EDT, Height/Length Dosing, 77.3, kg, 02/07/23 11:02:00 EDT, Weight Dosing pregabalin 100 mg Cap: 100 mg = 1 cap(s), Oral, TID, take twice a day for one week. If doing ok go to TID. DC GPN, # 90 cap(s), Refills(s) 0, Pharmacy: [facility] #[id number], 178, cm, 10/14/22 8:44:00 EDT, Height/Length Dosing, 73, kg, 10/14/22 8:44:00 EDT, Weight D... ropinirole 0.5 mg Tab: 0.5 mg = 1 tab(s), Oral, Bedtime, X 30 day(s), # 30 tab(s), Refills(s) 3, Pharmacy: [facility] #[id number], 178, cm, 02/07/23 11:02:00 EDT, Height/Length Dosing, 77.3, kg, 02/07/23 11:02:00 EDT, Weight Dosing triamcinolone Top 0.1% Oint: 1 ted, Topical, TID Dry skin, 30 gm, Refill(s) 0, [facility] #[id number], 178, cm, 07/22/22 14:01:00 EST, Height/Length Dosing, 80.9, kg, 07/22/22 14:01:00 EST, Weight Dosing Documented Medications Documented Metoprolol succinate 25 mg ER Tablet: Refills(s) 0 Plavix 75 mg Tab: 75 mg = 1 tab(s), Oral, Daily, Refills(s) 0 Tylenol: Refills(s) 0 atorvastatin 20 mg Tab: 20 mg = 1 tab(s), Oral, Daily, # 30 tab(s), Refills(s) 0 cilostazol 100 mg Tab: TAKE 1 TABLET BY MOUTH TWICE DAILY Problem list: All Problems Sciatica / SNOMED CT 08168183 / Confirmed GERD (gastroesophageal reflux disease) / SNOMED CT 908325948 / Confirmed Pain in joint, multiple sites / SNOMED CT 400268920 / Confirmed Kidney stone on left side / SNOMED CT 354637844 / Confirmed AAA (abdominal aortic aneurysm) / SNOMED CT 841820802 / Confirmed PAD (peripheral artery disease) / SNOMED CT 7027716083 / Confirmed Hypocalcemia / SNOMED CT 4891283 / Confirmed BMI 24.0-24.9, adult / SNOMED CT 5479964196 / Confirmed Anticoagulated / SNOMED CT 920122420 / Confirmed Lumbar radiculopathy / SNOMED CT 055074224 / Confirmed Cigarette nicotine dependence / SNOMED CT 03567751 / Confirmed Prostate cancer screening / SNOMED CT 303633935 / Confirmed Combined hyperlipidemia / SNOMED CT 653746555 / Confirmed History of diverticular abscess of colon / SNOMED CT 6159636491 / Confirmed Benign essential HTN / SNOMED CT 0990150 / Confirmed Actinic keratoses / SNOMED CT 2324048965 / Confirmed Restless leg syndrome / SNOMED CT 04530489 / Confirmed 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 Canceled: Smoker / SNOMED CT 1004563866 Added secondary to documentation in Social History. Canceled: Left hip pain / SNOMED CT 27368620 Canceled: Lumbar back pain / SNOMED CT 121284638 Canceled: Dyspepsia / SNOMED CT 208648360 Canceled: Screening for lipoid disorders / SNOMED CT 987631535 Canceled: Tobacco use disorder / SNOMED CT 273532993 Canceled: Smoker / SNOMED CT 085786271 Added secondary to documentation in Social History. Canceled: Left lower quadrant pain / SNOMED CT 574106064 Canceled: Abdominal aortic aneurysm, without rupture / SNOMED CT 994694223 Canceled: Smoker / SNOMED CT 699892893 Added secondary to documentation in Social History. Canceled: Generalized abdominal pain / SNOMED CT 573829529 Canceled: Acute constipation / SNOMED [place] [address] (more content not included)... [facility] Comment on above: Result Comment: Elec tronically Signed By: Jillian Aranda PA-C\.br\Date and Time Signed: 04/07/23 08:37 EST\.br\Electronically Co-Signed By: Cresencio Andrade DO\.br\Date and Time Co-Signed: 04/07/23 11:51 EST Office/Clinic Note-Physician on 04-07-2023 Office/Clinic Note-Physician [id number]#1.00TIF F [facility] Patient Correspondenceon Patient Correspondence [id number]#1.00TIF F [facility] Patient Correspondence [id number]#1.00TIF F [facility] Patient History Officeon Patient History Office [id number]#1.00TIF F [facility] Insurance Correspondence Off iceon 03-23-2023 Insurance Correspondence Office [id number]#1.00T IFF [facility] Patient Correspondenceon Patient Correspondence [id number]#1.00T IFF [facility] Physician Referralon 023 Physician Referral [id number]#1.00T IFF [facility] Consultation Noteon 03-22-20 Consultation Note [id number]#1.00T IFF [facility] Consent for Procedure/Surger yon 03-21-2023 Consent for Procedure/Surgery [id number]#1.00 TIFF [facility] Consent for Treatmenton 02-21 Consent for Treatment [id number]#1.00 TIFF [facility] IntraOperative Documentson 1 IntraOperative Documents [id number]#1.00 TIFF [facility] Main OR Intraoperative Recor don 03-21-2023 Main OR Intraoperative Record IntraOp Document Type FTPM Summary Primary Physician: Lion Beckman MD Finalized Date/Time: 03/21/23 13:55:13 Pt. Name: SHANNANDENVER/Sex: 1960 Male Med Rec #: [id number] Physician: Lion Beckman MD Financial #: [id number] Pt. Type: P Room/Bed: / Admit/Disch: 03/21/23 13:01:44 - Institution: Case Times FTPM Entry 1 Patient Times In Room 03/21/23 13:49:00 Out Room 03/21/23 13:56:00 Procedure Times Start 03/21/23 13:52:00 Stop 03/21/23 13:55:00 Anesthesia Times Last Modified By: Martita Soto RN 03/21/23 13:55:07 Case Attendance FTPM Entry 1 Entry 2 Entry 3 Case Attendee Lion Beckman MD, RN, Martita Bruno RN, Safia Reese Role Performed Surgeon - Primary Pole Sander Operator - Primary Scrub - Primary Time In 03/21/23 13:49:00 03/21/23 13:49:00 03/21/23 13:49:00 Time Out 03/21/23 13:56:00 03/21/23 13:56:00 03/21/23 13:56:00 Procedure LUMBAR EPIDURAL STEROID LUMBAR EPIDURAL STEROID LUMBAR EPIDURAL STEROID INJECTION(.) INJECTION(.) INJECTION(.) Comments Last Modified By: Martita Soto RN, RN, Martita Concepcion RN 03/21/23 13:55:09 03/21/23 13:55:09 03/21/23 13:55:09 Entry 4 Case Attendee Anastacio Lozano Role Performed Director Targeted Marketing Time In 03/21/23 13:49:00 Time Out 03/21/23 13:56:00 Procedure LUMBAR EPIDURAL STEROID INJECTION(.) Comments Last Modified By: Martita Soto RN 03/21/23 13:55:09 Perioperative Protocols FTPM Pre-Care Text: Implements protective measures prior to operative or invasive procedure, confirms identity before the operative or invasive procedure, verifies operative procedure, surgical site, and laterality Entry 1 Procedure(s) LUMBAR EPIDURAL STEROID Patient Identity Birthday, ID Band INJECTION(.) Verified (select at Check, Patient least 2): Participation Consents / H and P HandP, Surgery/Procedure Operative Site Present Verified Consent Marking Verified Surgical Site Yes Laterality Verified Yes Verified Procedure Verified Yes Correct Patient Yes Position Verified Availability Equipment, Medication, Prep Dry Yes Verified (If X-ray Applicable) PreOp Antibiotic No Time Out Martita Soto RN, Given Participants Damion MENON, Karuna Stafford MD, Blake Mullins Bryce Time Out Complete 03/21/23 13:49:00 Outcomes Met? Yes Last Modified By: Martita Soto RN 03/21/23 13:50:32 Post-Care Text: The patient is free from signs and symptoms of injury caused by extraneous objects Allergy Information [facility] Pre-Care Text: Verifies allergies Entry 1 Allergies Reviewed? Yes Allergies Reviewed Self/Patient With Outcomes Met? Yes Last Modified By: Martita Soto RN 03/21/23 13:45:54 Post-Care Text: The patient received appropriate medication(s) safely administered during the perioperative period Surgical Procedures FTPM Entry 1 Procedure Description Procedure LUMBAR EPIDURAL STEROID Modifiers . INJECTION Surgeon Description L5-S1 KRISTEN Primary Procedure Yes Primary Surgeon Lion Beckman MD Start 03/21/23 13:52:00 Stop 03/21/23 13:55:00 Anesthesia Type None Surgical Service Pain Management Wound Class 1 - Clean Last Modified By: Martita Soto RN 03/21/23 13:55:11 General Case Data FT[facility] Pre-Care Text: Classifies surgical wound, implements aseptic technique, initiates traffic control Entry 1 Case Information OR Pain Proc Room Case Level Level 2 Wound Class 1 - Clean Specialty Pain Management Preop Diagnosis M54.16 Postop Same As Preop Yes Postop Diagnosis M54.16 Outcomes Met? Yes Last Modified By: Martita Soto RN 03/21/23 13:51:05 Post-Care Text: The patient is free from signs and symptoms of infection Skin Assessment (Pre Procedure) FT[facility] Pre-Care Text: Implements protective measures to prevent skin/ tissue injury due to thermal or mechanical sources Evaluates for signs and symptoms of physical injury to skin and tissue Entry 1 Skin Integrity Intact, [place], Warm, and Skin Abnormality No Dry Outcomes Met? Yes Last Modified By: Martita Soto RN 03/21/23 13:47:33 Post-Care Text: The patient is free from signs and symptoms of injury caused by extraneous objects Patient Positioning FT[facility] Pre-Care Text: Identifies physical alterations that require additional precautions for procedure-specific positioning, verifies presence of prosthetics or corrective devices, positions the patient, evaluates the patient for signs and symptoms of injury as a result of positioning Entry 1 Procedure LUMBAR EPIDURAL STEROID Body Position Prone INJECTION(.) Feet Uncrossed? Yes Left Arm Position Resting at Side Right Arm Position Resting at Side Left Leg Position Extended Right Leg Position Extended Positioning Device Pillow Under Head Large, Safety Strap, Pillow Large Under Knees Press Points Checked Yes By Martita Soto RN Outcomes Met? Yes Last Modified By: Yvette Soto RN (more content not included)... [facility] Main OR Preoperative Recordo n 03-21-2023 Main OR Preoperative Record Holding Area Document Type FTPM Summary Primary Physician: Lion Beckman MD Finalized Date/Time: 03/21/23 13:20:48 Pt. Name: DENVER PERDUE /Sex: 1960 Male Med Rec #: [id number] Physician: Lion Beckman MD Financial #: [id number] Pt. Type: P Room/Bed: / Admit/Disch: 03/21/23 13:01:44 - Institution: Case Times Holding FTPM Pre-Care Text: Verifies consent for planned procedure, identifies individual values and wishes concerning care, includes family members in perioperative teaching Secures patient's records' belongings, and valuables, maintains patient's dignity and privacy, and maintains patient confidentiality Entry 1 In Holding 03/21/23 13:19:00 Outcomes Met? Yes Last Modified By: Debbi Campbell RN 03/21/23 13:19:03 Post-Care Text: The patient participates in decisions affecting his or her perioperative plan of care The patient's right to privacy is maintained Surgery Checklist FTPM Entry 1 Patient Birthday, ID Band Procedure History and Physical, Identification: Check, Patient Verification: Surgical Consent, With Participation Patient NPO after Midnight: No Date/Time: 03/21/23 13:19:00 Results Reviewed 1130 cup of coffee Personal Items: Glasses, Jewelry Comments: Personal Items Pt. wearing glasses and Complaints of Pain: Yes Comment: one necklace. Pain Comment: 02/28 lower back pain Operative Site Yes Marking: Marked By: Dr. Beckman Location: L5-S1 Availability Equipment, X-Ray Verified: Does Patient Smoke Yes If Yes to Smoking. 1 PPD cigarettes Cigars or Cigarettes. How much per day? Patient states Yes Comment - Adult -Brooke postop adult Supervision supervision available Case Cancelled in No Holding Area see comments below for reason Last Modified By: Debbi Campbell RN 03/21/23 13:20:46 Finalized By: Debbi Campbell RN Document Signatures Signed By: Debbi Campbell RN 03/21/23 13:20 [facility] Operative Reporton 3 Operative Report Patient: DENVER PERDUE Age: 62 years Sex: Male : 1960 Associated Diagnoses: None Author: Lion Beckman MD Procedure Procedure: Lumbar Epidural Steroid Injection with Fluoroscopic Guidance at L5/S1 Diagnosis: Lumbar radiculitis Anesthesia: Local The patient was identified in the pre-op area. The procedure, including risks benefits and alternatives was discussed with the patient. The patient agreed to proceed. Informed consent was obtained and the site(s) marked. The patient was brought to the procedure room and placed in the prone position with padding under the abdomen to reduce lumbar lordosis. Time out was taken. The back was prepped and draped in sterile fashion with Chloraprep. Skin and subcutaneous tissues were anesthetized with 6 mL of Lidocaine 2% through a 25G needle. An 18G Touhy needle was then advanced under fluoroscopic guidance (A/P and contralateral oblique views) onto the inferior lamina and then advanced cephalad into the L5/S1 epidural space using loss of resistance technique with a plastic MARY syringe. Isovue 2mL was injected under live fluoroscopy which demonstrated appropriate epidural spread without vascular uptake. After confirmation of negative aspiration, 6mL of PF normal saline and 10mg of PF dexamethasone (in 1mL) were injected. The needle was removed and a bandage applied. The patient was brought to the recovery area in stable condition and then monitored for an appropriate period of time. The patient was discharged home in good condition with post-procedure instructions. No apparent complications. Epidural injection procedure Physical Exam: vital signs Vital Signs 03/21/2023 13:31 EDT Heart Rate Monitored 60 bpm SpO2 96 % 03/21/2023 13:30 EDT Systolic Blood Pressure 162 mmHg HI Diastolic Blood Pressure 82 mmHg Mean Arterial Pressure, Monitered 109 mmHg 03/21/2023 13:30 EDT Temperature Axillary 36.6 DegC 03/21/2023 13:29 EDT Respiratory Rate 14 br/min . [facility] Comment on above: Result Comment: Elec tronically Signed By: Lion Beckman MD\.br\Date and Time Signed: 03/21/23 13:55 EDT Patient Letter FTon 2022 Patient Letter [facility] (Inserted Image. Lissy ble to display) [address] [place] [address] [id number] March 15, 2023 DENVER PERDUE [address] [place] [address] : 1960 [facility] PPO To whom it may concern, I am writing a formal appeal for my patient Denver Perdue (1960), regarding his January 18, 2023 appointment with micah De La Rosa. I was not aware that his insurance when making a referral had to be set up based on 6 months at a time. Most insurances I deal with, one referral is all they need until the patient has completed their service. I am appealing to have his January 18, 2023 appointment to be covered since I was not aware of Mr. Perdue's insurance plan. I have talked with Earnestine his returned case inspector as well as the Service Department that gave me a call number [phone]. They have guided me that I needed to write a formal letter and I could fax it the appeal department. I would like to have this resolve as soon as possible due to my absent from the office due to medical leave. I thank you for your time and service in getting this resolved. Thank and have a good day. Sincerely, Beth Elias MSN, ELECTRIC NEEDLE SPECIALIST-REACTOR SERVICE OPERATOR [place] [address] Normal [facility] Patient Logson 03-03-2023 Patient Logs [id number]#1.00T IFF Normal [facility] Colonoscopy studyon 05-18-20 22 Beltran Izaguirre MD - 05/18/2022 Site: [facility] Patient Name: DENVER PERDUE Procedure Date: 05/18/2022 Date of : 1960 Gender: Male Attending MD: Beltran Izaguirre Referring MD: PCP NO Indications: - Screening for colorectal malignant neoplasm Medications: - See the Anesthesia note for documentation of the administered medications Complications: - No immediate complications. Estimated Blood Loss: - Estimated blood loss was minimal. Procedure: - The scope was introduced through the anus and advanced to the cecum, identified by appendiceal orifice and ileocecal valve. - The colonoscopy was performed without difficulty. - The patient tolerated the procedure well. - The quality of the bowel preparation was adequate. - The ileocecal valve, appendiceal orifice, and rectum were photographed. Findings: - A 30 mm polyp was found in the rectum. The polyp was pedunculated. The polyp was removed with a hot snare. Resection and retrieval were complete. To close a defect after polypectomy, one hemostatic clip was successfully placed. There was no bleeding at the end of the procedure. - Multiple medium-mouthed diverticula were found in the sigmoid colon. There was no evidence of diverticular bleeding. - A 6 mm polyp was found in the descending colon. The polyp was sessile. Biopsies were taken with a cold forceps for histology. Estimated blood loss was minimal. Impression: - One 30 mm polyp in the rectum, removed with a hot snare. Resected and retrieved. Clip was placed. - Severe diverticulosis in the sigmoid colon. There was no evidence of diverticular bleeding. - One 6 mm polyp in the descending colon. Biopsied. - The exam was otherwise normal to the cecum. Recommendation: - Repeat colonoscopy in 1 year for surveillance based on pathology results. - Await pathology results. Procedure Code(s): - 55738, Colonoscopy, flexible; with removal of tumor(s), polyp(s), or other lesion(s) by snare technique - 79058-96, Colonoscopy, flexible; with biopsy, single or multiple Diagnosis Code(s): - Z12.11, Encounter for screening for malignant neoplasm of colon - D12.8, Benign neoplasm of rectum - D12.4, Benign neoplasm of descending colon - K57.30, Diverticulosis of large intestine without perforation or abscess without bleeding CPT(R) - 2022 copyright [employer]. All Rights Reserved. The CPT codes, CCI edits and ICD codes generated are intended as suggestions and were generated based on input data. These codes are preliminary and upon handbag stitcher review may be revised to meet current compliance and payer requirements. The provider is responsible for the final determination of appropriate codes, and modifiers. Scope Withdrawal Time: 00:17:48 Signature Name: Beltran Izaguirre MD Signature Statement:This document has been electronically signed. Note Initiated On:05/18/2022 Signature Date:05/18/2022 8:57 AM [employer] Phone: Topicmarks Phone: CHEMISTRYOrdered By: SYSTEM SYSTEM on 03-17-2022 Albumin [Mass/Vol] 3.8 g/dL Normal 3.3 - 5.0 gm/dL [facility] Albumin/Globulin [Mass ratio] 1.1 {ratio} Normal 1.1 - 2.2 [facility] ALP [Catalytic activity/Vol] 90 [iU]/d Normal 21 - 98 Int._Unit/L [facility] ALT No additional P-5'-P [Catalytic activity/Vol] 16 [iU]/d Normal 6 - 46 Int._Unit/L [facility] Anion gap [Moles/Vol] 11 mmol/L Normal 6 - 16 mEq/L [facility] AST [Catalytic activity/Vol] 16 [iU]/d Normal 5 - 43 Int._Unit/L [facility] Bilirubin [Mass/Vol] 0.3 mg/dL Normal 0.0 - 1 .1 mg/dL [facility] Calcium [Mass/Vol] 8.9 mg/dL Normal 8.9 - 11. 1 mg/dL [facility] Chloride [Moles/Vol] 104 mmol/L Normal 101 - 1 11 mmol/L [facility] Cholesterol [Mass/Vol] 114 mg/dL Low 120 - 200 mg/dL [facility] Cholesterol in HDL [Mass/Vol] 39 mg/dL Invalid Interpretation Code [facility] Cholesterol in LDL [Mass/Vol] 65 mg/dL Normal <=129mg/dL [facility] Cholesterol in VLDL [Mass/Vol] 7 mg/dL Normal 7 - 40 mg/dL [facility] CO2 [Moles/Vol] 28 mmol/L Normal 21 - 31 mmol/L [facility] Creatinine [Mass/Vol] 0.9 mg/dL Normal 0.5 - 1.3 mg/dL [facility] GFR/1.73 sq M.predicted among blacks MDRD (S/P/Bld) [Vol rate/Area] mL/min/1.73 m2 Normal >=59mL/min/ 1.73 m2 [facility] Chem S GFR/1.73 sq M.predicted among non-blacks MDRD (S/P/Bld) [Vol rate/Area] mL/min/1.73 m2 Normal >=59mL/min/ 1.73 m2 [facility] Chem S Globulin (S) [Mass/Vol] 3.6 g/dL Normal 1.4 - 4.0 gm/dL [facility] Glucose [Mass/Vol] 100 mg/dL Normal 55 - 199 mg/dL [facility] Potassium [Moles/Vol] 3.9 mmol/L Normal 3.5 - 5.3 mmol/L [facility] Prostate specific Ag [Mass/Vol] 1.1 ng/mL Normal 0.1 - 3.5 ng/mL [facility] Protein [Mass/Vol] 7.4 g/dL Normal 6.0 - 7.8 gm/dL [facility] Sodium [Moles/Vol] 139 mmol/L Normal 135 - 145 mmol/L [facility] Triglyceride [Mass/Vol] 34 mg/dL Normal <=149mg/dL [facility] Urea nitrogen [Mass/Vol] 8 mg/dL Normal 5 - 21 mg/dL [facility] Urea nitrogen/Creatinine [Mass ratio] 9 mg/mg Low 10 - 20 [facility] HEMATOLOGYOrdered By: SYSTEM SYSTEM on 03-17-2022 Basophils/100 WBC (Bld) 0.6 % Normal 0.0 - 2.0 % [facility] HemeAutoSS Basophils/Leukocytes Auto (Bld) [Pure # fraction] 0.0 E9/L Normal 0.0 - 0.2 E9/L [facility] HemeAutoSS Eosinophils/100 WBC (Bld) 2.1 % Normal 0.0 - 8.0 % [facility] HemeAutoSS Eosinophils/Leukocyte s Auto (Bld) [Pure # fraction] 0.1 E9/L Normal 0.0 - 0.5 E9/L [facility] HemeAutoSS Lymphocytes/100 WBC (Bld) 21.9 % Normal 14.0 - 50.0 % [facility] HemeAutoSS Lymphocytes/Leukocyte s Auto (Bld) [Pure # fraction] 1.3 E9/L Normal 1.0 - 4.0 E9/L [facility] HemeAutoSS Monocytes/100 WBC (Bld) 8.5 % Normal 4.0 - 14.0 % [facility] HemeAutoSS Monocytes/Leukocytes Auto (Bld) [Pure # fraction] 0.5 E9/L Normal 0.2 - 1.0 E9/L [facility] Neutrophils/100 WBC (Bld) 66.9 % Normal 36.0 - 75.0 % [facility] Neutrophils/Leukocyte s Auto (Bld) [Pure # fraction] 4.1 E9/L Normal 2.0 - 7.5 E9/L [facility] HEMATOLOGYOrdered By: Milo Whitney on 03-17-2022 Erythrocyte distribution width (RBC) [Ratio] 14.9 % High 10.9 - 14.2 % [facility] Hematocrit (Bld) [Volume fraction] 46.0 % Normal 37.7 - 49.0 % [facility] Hemoglobin (Bld) [Mass/Vol] 15.1 g/dL Normal 13.5 - 17.5 gm/dL [facility] MCH (RBC) [Entitic mass] 30.4 pg Normal 27.0 - 34.0 pg [facility] MCHC (RBC) [Mass/Vol] 32.8 g/dL Normal 31.4 - 36.0 gm/dL [facility] MCV (RBC) [Entitic vol] 92.7 fL Normal 80.0 - 100.0 fL [facility] Platelet mean volume (Bld) [Entitic vol] 8.7 fL Normal 6.4 - 10.8 fL [facility] Platelets (Bld) [#/Vol] 206.0 E9/L Normal 150.0 - 500.0 E9/L [facility] RBC (Bld) [#/Vol] 5.0 E12/L Normal 4.3 - 5.9 E12/L [facility] WBC corrected for nucl RBC Auto (Bld) [#/Vol] 6.1 E9/L Normal 4.0 - 11.0 E9/L [facility] US CAROTID ARTERY BILATERALo n 02-25-2022 IN LEFT CAROTID BULB , THERE IS ATHEROSCLEROTIC PLAQUE THAT OCCUPIES 30% OF THE LUMINAL DIAMETER. THERE ARE SCATTERED ATHEROSCLEROSIS ELSEWHERE. SOME ARE CALCIFIED. RIGHT CAROTID TREE DEMONSTRATES SOFT PLAQUE WITHIN THE INTERNAL CAROTID ARTERY THAT OCCUPIES APPROXIMATELY 30-40% OF THE LUMINAL DIAMETER. THERE ARE SCATTERED ATHEROSCLEROSIS ELSEWHERE. BY VELOCITIES, BILATERAL ICAS ARE LESS THAN 50% STENOSIS. RIGHT VERTEBRAL IS ANTEGRADE. LEFT VERTEBRAL DOES NOT DEMONSTRATE ANY FLOW AND THEREFORE ASSUMED TO BE OCCLUDED. [facility] RADIOLOGY EXAMINATION: CAROTID DUPLEX ULTRASONOGRAPHY CLINICAL HISTORY: CAROTID BRUITS COMPARISONS: NONE AVAILABLE TECHNIQUE: B-mode, color flow and spectral Doppler FINDINGS: ARTERIAL BLOOD FLOW VELOCITY RIGHT PS Prox CCA 111 cm/s Mid CCA 105 cm/s Dist CCA 93 cm/s Prox ICA 100 cm/s Mid ICA 74 cm/s Dist ICA 76 cm/s Prox ECA 198 cm/s Prox VERT cm/s ICA/CCA 1.01 LEFT PS Prox CCA 118 cm/s Mid CCA 105 cm/s Dist CCA 108 cm/s Prox ICA 78 cm/s Mid ICA 77 cm/s Dist ICA 73 cm/s Prox ECA 138 cm/s Prox VERT cm/s ICA/CCA 0.89 [facility] RADIOLOGY Laci Dominique MD - 02/25/2022 EXAMINATION: CAROTID DUPLEX ULTRASONOGRAPHY CLINICAL HISTORY: CAROTID BRUITS COMPARISONS: NONE AVAILABLE TECHNIQUE: B-mode, color flow and spectral Doppler FINDINGS: ARTERIAL BLOOD FLOW VELOCITY RIGHT PS Prox CCA 111 cm/s Mid CCA 105 cm/s Dist CCA 93 cm/s Prox ICA 100 cm/s Mid ICA 74 cm/s Dist ICA 76 cm/s Prox ECA 198 cm/s Prox VERT cm/s ICA/CCA 1.01 LEFT PS Prox CCA 118 cm/s Mid CCA 105 cm/s Dist CCA 108 cm/s Prox ICA 78 cm/s Mid ICA 77 cm/s Dist ICA 73 cm/s Prox ECA 138 cm/s Prox VERT cm/s ICA/CCA 0.89 IMPRESSION: IN LEFT CAROTID BULB, THERE IS ATHEROSCLEROTIC PLAQUE THAT OCCUPIES 30% OF THE LUMINAL DIAMETER. THERE ARE SCATTERED ATHEROSCLEROSIS ELSEWHERE. SOME ARE CALCIFIED. RIGHT CAROTID TREE DEMONSTRATES SOFT PLAQUE WITHIN THE INTERNAL CAROTID ARTERY THAT OCCUPIES APPROXIMATELY 30-40% OF THE LUMINAL DIAMETER. THERE ARE SCATTERED ATHEROSCLEROSIS ELSEWHERE. BY VELOCITIES, BILATERAL ICAS ARE LESS THAN 50% STENOSIS. RIGHT VERTEBRAL IS ANTEGRADE. LEFT VERTEBRAL DOES NOT DEMONSTRATE ANY FLOW AND THEREFORE ASSUMED TO BE OCCLUDED. [employer] Phone: [employer] Phone: US CAROTID ARTERY BILATERALo n 02-24-2022 Radiology Study observation (narrative) [employer] Phone: XR ABDOMEN (KUB) (SINGLE AP VIEW)on 07-28-2021 Two small stones left kidney unchanged. [facility] EXAM: XR ABDOMEN (KU B) (SINGLE AP VIEW) HISTORY: Reason for exam:->kidney stones COMPARISON: CT abdomen and pelvis 01/12/2021. TECHNIQUE: KUB, 3 images. FINDINGS: A 5 mm and a 2 mm stone overlies the superior pole left kidney, unchanged. Aortoiliac stent graft. No stones over the bladder or expected course of the ureters. [facility] Claus Cornelius Jr., MD - 07/28/2021 EXAM: XR ABDOMEN (KUB) (SINGLE AP VIEW) HISTORY: Reason for exam:->kidney stones COMPARISON: CT abdomen and pelvis 01/12/2021. TECHNIQUE: KUB, 3 images. FINDINGS: A 5 mm and a 2 mm stone overlies the superior pole left kidney, unchanged. Aortoiliac stent graft. No stones over the bladder or expected course of the ureters. IMPRESSION: Two small stones left kidney unchanged. [employer] Phone: Radiology Study observation (narrative) [email or web address] Phone: XR ABDOMEN (KUB) (SINGLE AP VIEW)Ordered By: Claus Cornelius on 07-28-2021 [facility] [employer] Phone: Basic Metabolic Panelon 10-0 Anion gap [Moles/Vol] 12 mmol/L Normal 9-15 [facility] Comment on above: Performed By: #### B MP #### [facility] [address] [place] [address] Calcium [Mass/Vol] 9.2 mg/dL Normal 8.5-9.9 [facility] Comment on above: Performed By: #### B MP #### [facility] [address] [place] [address] Chloride [Moles/Vol] 102 mmol/L Normal 95-107 [facility] Comment on above: Performed By: #### B MP #### [facility] [address] [place] [address] CO2 [Moles/Vol] 29 mmol/L Normal 20-31 [facility] Comment on above: Performed By: #### B MP #### [facility] [address] [place] [address] Creatinine [Mass/Vol] 0.64 mg/dL Low 0.70-1.20 [facility] Comment on above: Performed By: #### B MP #### [facility] [address] [place] [address] GFR >60.0 Normal >60 [facility] Comment on above: Result Comment: >60 mL/min/1.73m2 EGFR, calc. for ages 18 and older using the MDRD formula (not corrected for weight), is valid for stable renal function. Performed By: #### B MP #### [facility] [address] [place] [address] GFR/1.73 sq M.predicted among blacks MDRD (S/P/Bld) [Vol rate/Area] mL/min/{1.73_m2} Normal >60 [facility] Comment on above: Result Comment: >60 mL/min/1.73m2 EGFR, calc. for ages 18 and older using the MDRD formula (not corrected for weight), is valid for stable renal function. Performed By: #### B MP #### [facility] [address] [place] [address] Glucose [Mass/Vol] 94 mg/dL Normal 70-99 [facility] Comment on above: Performed By: #### B MP #### [facility] [address] [place] [address] Potassium [Moles/Vol] 4.2 mmol/L Normal 3.4-4.9 [facility] Comment on above: Performed By: #### B MP #### [facility] [address] [place] [address] Sodium [Moles/Vol] 143 mmol/L Normal 135-144 [facility] Comment on above: Performed By: #### B MP #### [facility] [address] [place] [address] Urea nitrogen [Mass/Vol] 10 mg/dL Normal 8-23 [facility] Comment on above: Performed By: #### B #### [facility] [address] [place] [address] US TRANSRECTALOrdered By: Maite Quan on 02-10-2021 [employer] Phone: Branden, Chpo Incoming Radiant Results From [employer] - 02/10/2021 10:32 AM EDT IMPRESSION: 1.Limited transrectal ultrasound as part of preprocedure planning did not demonstrate any obvious abscess for drainage. COMPARISON:No prior studies are available for comparison. DIAGNOSIS: Prior abscess at outside hospital and percutaneous drain placement COMMENTS: None TECHNIQUE: Limited transrectal ultrasound performed to assess for transrectal drainage of abscess FINDINGS: Limited transrectal ultrasound did not demonstrate an obvious abscess. Bowel loops with wall thickening, particularly the sigmoid colon with wall thickening are seen. [employer] Phone: [employer] Phone: Basic Metabolic PanelOrdered By: Rome Richards on 01-15-2021 Anion gap [Moles/Vol] 11 mmol/L 9 - 17 mmol/L [employer] Phone: Calcium [Mass/Vol] 8.4 mg/dL Low 8.6 - 10. 4 mg/dL [employer] Phone: Chloride [Moles/Vol] 106 mmol/L 98 - 10 7 mmol/L [employer] Phone: CO2 [Moles/Vol] 25 mmol/L 20 - 31 mmol/L [employer] Phone: Creatinine [Mass/Vol] 0.67 mg/dL Low 0.70 - 1.20 mg/dL [employer] Phone: GFR >60 >60 mL/min [employer] Phone: GFR Non- >60 >60 mL/min [employer] Phone: GFR/1.73 sq M.predicted MDRD (S/P/Bld) [Vol rate/Area] [employer] Phone: Comment on above: Average GFR for 60-6 9 years old: 85 mL/min/1.73sq m Chronic Kidney Disease: <60 mL/min/1.73sq m Kidney failure: <15 mL/min/1.73sq m eGFR calculated using average adult body mass. Additional eGFR calculator available at: http://www.Arzeda/multiple_crcl_2012.htm GFR/1.73 sq M.predicted MDRD (S/P/Bld) [Vol rate/Area] NOT REPORTED [employer] Phone: Glucose [Mass/Vol] 99 mg/dL 70 - 99 mg/dL [employer] Phone: Interpretation and review of laboratory results Abnormal [employer] Phone: Potassium [Moles/Vol] 4.1 mmol/L 3.7 - 5.3 mmol/L [employer] Phone: Sodium [Moles/Vol] 142 mmol/L 135 - 144 mmol/L [employer] Phone: Urea nitrogen (BldV) [Mass/Vol] 12 mg/dL 8 - 23 mg/dL [employer] Phone: Urea nitrogen/Creatinine (Bld) [Mass ratio] NOT REPORTED [employer] Phone: [employer] Phone: Basic Metabolic Profon 01-15 (cont.) Normal [facility] Comment on above: Result Comment: Aver age GFR for 60-69 years old: 85 mL/min/1.73sq m Chronic Kidney Disease: <60 mL/min/1.73sq m Kidney failure: <15 mL/min/1.73sq m eGFR calculated using average adult body mass. Additional eGFR calculator available at: http://www.FAGUO.com/multiple_crcl_2012.htm Performed By: #### C BC, BMP #### [address] [address] [employer] Stock Checker: Dandre Griffiths MD Anion gap [Moles/Vol] 11 mmol/L Normal 9-17 [facility] Comment on above: Performed By: #### C BC, BMP #### [facility] [employer] [address] [place] [address] [employer] Checker: Dandre Griffiths MD Calcium [Mass/Vol] 8.4 mg/dL Low 8.6-10.4 [facility] Comment on above: Performed By: #### C BC, BMP #### [address] [address] [employer] Checker: Dandre Griffiths MD Chloride [Moles/Vol] 106 mmol/L Normal 98-107 [facility] Comment on above: Performed By: #### C BC, BMP #### [address] [address] [employer] Checker: Dandre Griffiths MD CO2 [Moles/Vol] 25 mmol/L Normal 20-31 [facility] Comment on above: Performed By: #### C BC, BMP #### [facility] [employer] [address] [place] [address] [employer] Checker: Dandre Griffiths MD Creatinine [Mass/Vol] 0.67 mg/dL Low 0.70-1.20 [facility] Comment on above: Performed By: #### C BC, BMP #### [facility] [employer] [address] [place] [address] [employer] Checker: Dandre Griffiths MD GFR, Amer >60 Normal >60 [facility] Comment on above: Performed By: #### C BC, BMP #### [facility] [employer] [address] [place] [address] [employer] Checker: Dandre Griffiths MD GFR,non Amer >60 Normal >60 [facility] Comment on above: Performed By: #### C BC, BMP #### [address] [address] [employer] Checker: Dandre Griffiths MD Glucose [Mass/Vol] 99 mg/dL Normal 70-99 [facility] Comment on above: Performed By: #### C BC, BMP #### [facility] [employer] [address] [place] [address] [employer] Checker: Dandre Griffiths MD Potassium [Moles/Vol] 4.1 mmol/L Normal 3.7-5.3 [facility] Comment on above: Performed By: #### C BC, BMP #### [address] [address] [employer] Checker: Dandre Griffiths MD Sodium [Moles/Vol] 142 mmol/L Normal 135-144 [facility] Comment on above: Performed By: #### C BC, BMP #### [address] [address] [employer] Checker: Dandre Griffiths MD Urea nitrogen [Mass/Vol] 12 mg/dL Normal 8-23 [facility] Comment on above: Performed By: #### C BC, BMP #### [facility] [employer] [address] [place] [address] [employer] Checker: Dandre Griffiths MD BUN/CRE Ratio NOT REPORTED Normal 9-20 [facility] Comment on above: Performed By: #### C BC, BMP #### [facility] [address] [place] [address] [employer] Stock Checker: Dandre Griffiths MD Staging: NOT REPORTED Normal [facility] Comment on above: Performed By: #### C BC, BMP #### [facility] [employer] [address] [place] [address] [employer] Checker: Dandre Griffiths MD CBCon 01-15-2021 Erythrocyte distribution width (RBC) [Ratio] 14.0 % Normal 11.8-14.4 [facility] Comment on above: Performed By: #### C BC, BMP #### [facility] [employer] [address] [place] [address] [employer] Checker: Dandre Griffiths MD Hematocrit (Bld) [Volume fraction] 41.2 % Normal 40.7-50.3 [facility] Comment on above: Performed By: #### C BC, BMP #### [facility] [employer] [address] [place] [address] [employer] Checker: Dandre Griffiths MD Hemoglobin (Bld) [Mass/Vol] 13.3 g/dL Normal 13.0-17.0 [facility] Comment on above: Performed By: #### C BC, BMP #### [facility] [employer] [address] [place] [address] [employer] Checker: Dandre Griffiths MD MCH (RBC) [Entitic mass] 31.2 pg Normal 25.2-33.5 [facility] Comment on above: Performed By: #### C BC, BMP #### [facility] [employer] [address] [place] [address] [employer] Checker: Dandre Griffiths MD MCHC (RBC) [Mass/Vol] 32.3 g/dL Normal 28.4-34.8 [facility] Comment on above: Performed By: #### C BC, BMP #### [facility] [employer] [address] [place] [address] [employer] Checker: Dandre Griffiths MD MCV (RBC) [Entitic vol] 96.7 fL Normal 82.6-102.9 [facility] Comment on above: Performed By: #### C BC, BMP #### [facility] [address] [place] [address] [employer] Stock Checker: Dandre Griffiths MD NRBC Automated 0.0 per 100 WBC Normal 0.0 [facility] Comment on above: Performed By: #### C BC, BMP #### [address] [address] [employer] Checker: Dandre Griffiths MD Platelet mean volume (Bld) [Entitic vol] 10.5 fL Normal 8.1-13.5 [facility] Comment on above: Performed By: #### C BC, BMP #### [address] [address] [employer] Checker: Dandre Griffiths MD Platelets (Bld) [#/Vol] 211 10*3/uL Normal 138-453 [facility] Comment on above: Performed By: #### C ADRIANA, BMP #### [facility] [employer] [address] [place] [address] [employer] Checker: Dandre Griffiths MD RBC (Bld) [#/Vol] 4.26 10*6/uL Normal 4.21-5.77 [facility] Comment on above: Performed By: #### C BC, BMP #### [address] [address] [employer] Checker: Dandre Griffiths MD WBC (Bld) [#/Vol] 9.1 10*3/uL Normal 3.5-11.3 [facility] Comment on above: Performed By: #### C BC, BMP #### [address] [address] [employer] Checker: Dandre Griffiths MD CBCOrdered By: Rome Subramanian on on 01-15-2021 Hematocrit (Bld) [Volume fraction] 41.2 % 40.7 - 50.3 % [facility] [employer] Work Phone: Hemoglobin.gastrointe stinal spec 1 Ql (Stl) 13.3 g/dL 13.0 - 17.0 g/dL [employer] Phone: MCH (RBC) [Entitic mass] 31.2 pg 25.2 - 33.5 pg [employer] Phone: MCHC (RBC) [Mass/Vol] 32.3 g/dL 28.4 - 34.8 g/dL [employer] Phone: MCV (RBC) [Entitic vol] 96.7 fL 82.6 - 102.9 fL [employer] Phone: NRBC Automated 0.0 0.0 per 100 WBC [employer] Phone: Platelet distribution width (Bld) [Ratio] 14.0 % 11.8 - 14.4 % [employer] Phone: Platelet mean volume (Bld) [Entitic vol] 10.5 fL 8.1 - 13.5 fL [employer] Phone: Platelets (Bld) [#/Vol] 211 10*3/uL [employer] Phone: RBC (Bld) [#/Vol] 4.26 10*6/uL 4.21 - 5.7 7 m/uL [employer] Phone: WBC (Bld) [#/Vol] 9.1 10*3/uL [employer] Phone: [employer] Phone: Cult,Aerobe/Anaerobeon 01-15 Cult,Aerobe/Anaerobe Specimen Descriptio n .ABSCESS PELVIC Special Requests NOT REPORTED Direct Exam MANY NEUTROPHILS MODERATE GRAM POSITIVE COCCI IN CLUSTERS FEW GRAM POSITIVE COCCI IN PAIRS FEW GRAM POSITIVE RODS Culture ESCHERICHIA COLI LIGHT GROWTH KLEBSIELLA PNEUMONIAE LIGHT GROWTH YEAST, NOT DEWAYNE ALBICANS OR DEWAYNE DUBLINIENSIS SCANT GROWTH YEAST, NOT DEWAYNE ALBICANS OR DEWAYNE DUBLINIENSIS SECOND MORPHOLOGY LIGHT GROWTH NORMAL BEATRIZ MIXED ANAEROBIC BEATRIZ Report Status FINAL 01/18/2021 SUSCEPTIBILITY Organism ESCHERICHIA COLI Method HEVER Amikacin NOT REPORTED Ampicillin <=2 SUSCEPTIBLE Ampicillin/Sulbactam NOT REPORTED Aztreonam <=1 SUSCEPTIBLE Cefazolin <=4 SUSCEPTIBLE Cefepime NOT REPORTED Ceftriaxone <=1 SUSCEPTIBLE Ciprofloxacin <=0.25 SUSCEPTIBLE Ertapenem NOT REPORTED ESBL NEGATIVE Gentamicin <=1 SUSCEPTIBLE Meropenem NOT REPORTED Nitrofurantoin NOT REPORTED Tigecycline NOT REPORTED Tobramycin <=1 SUSCEPTIBLE Trimethoprim/Sulfa <=20 SUSCEPTIBLE Piperacillin/Tazobactam <=4 SUSCEPTIBLE SUSCEPTIBILITY Organism KLEBSIELLA PNEUMONIAE Method HEVER Amikacin NOT REPORTED Ampicillin >=32 RESISTANT Ampicillin/Sulbactam NOT REPORTED Aztreonam <=1 SUSCEPTIBLE Cefazolin <=4 SUSCEPTIBLE Cefepime NOT REPORTED Ceftriaxone <=1 SUSCEPTIBLE Ciprofloxacin <=0.25 SUSCEPTIBLE Ertapenem NOT REPORTED ESBL NEGATIVE Gentamicin <=1 SUSCEPTIBLE Meropenem NOT REPORTED Nitrofurantoin NOT REPORTED Tigecycline NOT REPORTED Tobramycin <=1 SUSCEPTIBLE Trimethoprim/Sulfa <=20 SUSCEPTIBLE Piperacillin/Tazobactam <=4 SUSCEPTIBLE Normal [facility] Comment on above: Performed By: #### C BC, CMPX, MG, WIL #### [employer] [address] [place] [phone] [employer] Checker: Dandre Griffiths MD CBC WITH AUTO DIFFERENTIALOr dered By: Lidia Whitney on 01-14-2021 [employer] Eos # 0.06 [employer] [facility] Work Phone: Absolute Immature Granulocyte 0.06 [facility] Work Phone: Absolute Lymph # 0.62 Low [employer] Work Phone: Absolute [place] # 0.72 [facility] [employer] Work Phone: Basophils (Bld) [#/Vol] 0.03 10*3/uL [employer] Work Phone: Basophils/100 WBC (Bld) 0 % 0 - 2 % [employer] Work Phone: Differential Type NOT REPORTED [employer] Work Phone: Eosinophils/100 WBC (Bld) 1 % 1 - 4 % [employer] Work Phone: Hematocrit (Bld) [Volume fraction] 44.2 % 40.7 - 50.3 % [employer] Phone: Hemoglobin.gastrointe stinal spec 1 Ql (Stl) 14.3 g/dL 13.0 - 17.0 g/dL [employer] Phone: Immature granulocytes/100 WBC (Bld) 1 % High 0 [employer] Phone: Interpretation and review of laboratory results Abnormal [employer] Phone: Lymphocytes/100 WBC (Bld) 6 % Low 24 - 43 % [employer] Phone: MCH (RBC) [Entitic mass] 31.8 pg 25.2 - 33.5 pg [employer] Phone: MCHC (RBC) [Mass/Vol] 32.4 g/dL 28.4 - 34.8 g/dL [employer] Phone: MCV (RBC) [Entitic vol] 98.2 fL 82.6 - 102.9 fL [employer] Phone: Monocytes/100 WBC (Bld) 7 % 3 - 12 % [employer] Phone: NRBC Automated 0.0 0.0 per 100 WBC [employer] Phone: Platelet distribution width (Bld) [Ratio] 14.2 % 11.8 - 14.4 % [employer] Phone: Platelet Estimate NOT REPORTED [employer] Phone: Platelet mean volume (Bld) [Entitic vol] 10.4 fL 8.1 - 13.5 fL [employer] Phone: Platelets (Bld) [#/Vol] 218 10*3/uL [employer] Phone: RBC (Bld) [#/Vol] 4.50 10*6/uL 4.21 - 5.7 7 m/uL [employer] Phone: RBC (Bld) [#/Vol] NOT REPORTED [employer] Phone: Segmented neutrophils/100 WBC (Bld) 86 % High 36 - 65 % [employer] Work Phone: Segs Absolute 8.94 [employer] Work Phone: WBC (Bld) [#/Vol] 10.4 10*3/uL [employer] Work Phone: WBC (Bld) [#/Vol] NOT REPORTED [employer] Phone: [employer] Phone: CBC with Diffon 01-14-2021 Abs. Basophil 0.03 k/uL Normal 0.00-0.20 [facility] Comment on above: Performed By: #### C DP #### [facility] [employer] [address] [place] [address] [employer] Checker: Dandre Griffiths MD Abs.Imm.Granulocyte 0.06 k/uL Normal 0.00-0.30 [facility] Comment on above: Performed By: #### C DP #### [facility] [employer] [address] [place] [address] [employer] Checker: Dandre Griffiths MD Abs.Neutrophil (Seg) 8.94 k/uL High 1.50-8.10 [facility] Comment on above: Performed By: #### C DP #### [facility] [address] [place] [address] [employer] Checker: Dandre Griffiths MD Basophils/100 WBC (Bld) 0 % Normal 0-2 [facility] Comment on above: Performed By: #### C DP #### [employer] [address] [place] [address] [employer] Checker: Dandre Griffiths MD Eosinophils (Bld) [#/Vol] 0.06 10*3/uL Normal 0.00-0.44 [facility] Comment on above: Performed By: #### C DP #### [place] [address] [employer]er: Dandre Griffiths MD Eosinophils/100 WBC (Bld) 1 % Normal 1-4 [facility] Comment on above: Performed By: #### C DP #### [place] [address] [employer] Checker: Dandre Griffiths MD Erythrocyte distribution width (RBC) [Ratio] 14.2 % Normal 11.8-14.4 [facility] Comment on above: Performed By: #### C DP #### [place] [address] [employer] Checker: Dandre Griffiths MD Hematocrit (Bld) [Volume fraction] 44.2 % Normal 40.7-50.3 [facility] Comment on above: Performed By: #### C DP #### [place] [address] [employer] Checker: Dandre Griffiths MD Hemoglobin (Bld) [Mass/Vol] 14.3 g/dL Normal 13.0-17.0 [facility] Comment on above: Performed By: #### C DP #### [place] [address] [employer] Checker: Dandre Griffiths MD Immature granulocytes/100 WBC (Bld) 1 % High 0 [facility] Comment on above: Performed By: #### C DP #### [place] [address] [employer] Checker: Dandre Griffiths MD Lymphocytes (Bld) [#/Vol] 0.62 10*3/uL Low 1.10-3.70 [facility] Comment on above: Performed By: #### C DP #### [address] [address] [employer] Checker: Dandre Griffiths MD Lymphocytes/100 WBC (Bld) 6 % Low 24-43 [facility] Comment on above: Performed By: #### C DP #### [address] [address] [employer] Checker: Dandre Griffiths MD MCH (RBC) [Entitic mass] 31.8 pg Normal 25.2-33.5 [facility] Comment on above: Performed By: #### C DP #### [address] [address] [employer] Checker: Dandre Griffiths MD MCHC (RBC) [Mass/Vol] 32.4 g/dL Normal 28.4-34.8 [facility] Comment on above: Performed By: #### C DP #### [address] [address] [employer] Checker: Dandre Griffiths MD MCV (RBC) [Entitic vol] 98.2 fL Normal 82.6-102.9 [facility] Comment on above: Performed By: #### C DP #### [address] [address] [employer] Checker: Dandre Griffiths MD Monocytes (Bld) [#/Vol] 0.72 10*3/uL Normal 0.10-1.20 [facility] Comment on above: Performed By: #### C DP #### [address] [address] [employer] Checker: Dandre Griffiths MD Monocytes/100 WBC (Bld) 7 % Normal 3-12 [facility] Comment on above: Performed By: #### C DP #### [address] [address] [employer] Checker: Dandre Griffiths MD Neutrophil (Seg) 86 % High 36-65 [facility] Comment on above: Performed By: #### C DP #### [address] [address] [employer] Checker: Dandre Griffiths MD NRBC Automated 0.0 per 100 WBC Normal 0.0 [facility] Comment on above: Performed By: #### C DP #### [address] [address] [employer] Checker: Dandre Griffiths MD Platelet mean volume (Bld) [Entitic vol] 10.4 fL Normal 8.1-13.5 [facility] Comment on above: Performed By: #### C DP #### [address] [address] [employer] Checker: Dandre Griffiths MD Platelets (Bld) [#/Vol] 218 10*3/uL Normal 138-453 [facility] Comment on above: Performed By: #### C DP #### [address] [address] Apparel Stock Checker: Dandre Griffiths MD RBC (Bld) [#/Vol] 4.50 10*6/uL Normal 4.21-5.77 [facility] Comment on above: Performed By: #### C DP #### [address] [address] [employer]arel Stock Checker: Dandre Griffiths MD WBC (Bld) [#/Vol] 10.4 10*3/uL Normal 3.5-11.3 [facility] Comment on above: Performed By: #### C DP #### [address] [address] [employer]arel Stock Checker: Dandre Griffiths MD Auto Diff Performed NOT REPORTED Normal [facility] Comment on above: Performed By: #### C DP #### [address] [address] [employer] Stock Checker: Dandre Griffiths MD Platelet Estimate NOT REPORTED Normal [facility] Comment on above: Performed By: #### C DP #### [address] [address] [employer]arel Stock Checker: Dandre Griffiths MD RBC morphology finding Nom (Bld) NOT REPORTED Normal [facility] Comment on above: Performed By: #### C DP #### [address] [address] [employer] Stock Checker: Dandre Griffiths MD WBC Morphology NOT REPORTED Normal [facility] Comment on above: Performed By: #### C DP #### [address] [address] [employer]arel Stock Checker: Dandre Griffiths MD CBCon 01-13-2021 Erythrocyte distribution width (RBC) [Ratio] 14.3 % Normal 11.8-14.4 [facility] Comment on above: Performed By: #### C BC, CMPX, MG, WIL #### [address] [address] [employer]arel Stock Checker: Dandre Griffiths MD Hematocrit (Bld) [Volume fraction] 43.4 % Normal 40.7-50.3 [facility] Comment on above: Performed By: #### C BC, CMPX, MG, WIL #### [address] [address] [employer]arel Stock Checker: Dandre Griffiths MD Hemoglobin (Bld) [Mass/Vol] 13.9 g/dL Normal 13.0-17.0 [facility] Comment on above: Performed By: #### C BC, CMPX, MG, WIL #### [address] [address] [employer]arel Stock Checker: Dandre Griffiths MD MCH (RBC) [Entitic mass] 31.4 pg Normal 25.2-33.5 [facility] Comment on above: Performed By: #### C BC, CMPX, MG, WIL #### [address] [address] [employer] Stock Checker: Dandre Griffiths MD MCHC (RBC) [Mass/Vol] 32.0 g/dL Normal 28.4-34.8 [facility] Comment on above: Performed By: #### C BC, CMPX, MG, WIL #### [place] [address] [employer] Stock Checker: Dandre Griffiths MD MCV (RBC) [Entitic vol] 98.0 fL Normal 82.6-102.9 [facility] Comment on above: Performed By: #### C BC, CMPX, MG, WIL #### [address] [address] [employer]arel Stock Checker: Dandre Griffiths MD NRBC Automated 0.0 per 100 WBC Normal 0.0 [facility] Comment on above: Performed By: #### C BC, CMPX, MG, WIL #### [address] [address] [employer]arel Stock Checker: Dandre Griffiths MD Platelet mean volume (Bld) [Entitic vol] 10.5 fL Normal 8.1-13.5 [facility] Comment on above: Performed By: #### C BC, CMPX, MG, WIL #### [place] [address] [employer]arel Stock Checker: Dandre Griffiths MD Platelets (Bld) [#/Vol] 179 10*3/uL Normal 138-453 [facility] Comment on above: Performed By: #### C BC, CMPX, MG, WIL #### [facility] [address] [place] [address] [employer] Stock Checker: Dandre Griffiths MD RBC (Bld) [#/Vol] 4.43 10*6/uL Normal 4.21-5.77 [facility] Comment on above: Performed By: #### C BC, CMPX, MG, WIL #### [facility] [address] [place], [place] [phone] [employer] Stock Checker: Dandre Griffiths MD WBC (Bld) [#/Vol] 15.4 10*3/uL High 3.5-11.3 [facility] Comment on above: Performed By: #### C BC, CMPX, MG, WIL #### [facility] [address] [place], [place] [phone] [employer] Stock Checker: Dandre Griffiths MD CBCOrdered By: Elli Banuelos on 01-13-2021 Hematocrit (Bld) [Volume fraction] 43.4 % 40.7 - 50.3 % [employer] Phone: Hemoglobin.gastrointe stinal spec 1 Ql (Stl) 13.9 g/dL 13.0 - 17.0 g/dL [facility] [employer] Phone: Interpretation and review of laboratory results Abnormal [employer] Phone: MCH (RBC) [Entitic mass] 31.4 pg 25.2 - 33.5 pg [employer] Phone: MCHC (RBC) [Mass/Vol] 32.0 g/dL 28.4 - 34.8 g/dL [employer] Phone: MCV (RBC) [Entitic vol] 98.0 fL 82.6 - 102.9 fL [facility] [employer] Phone: NRBC Automated 0.0 0.0 per 100 WBC [facility] [employer] Phone: Platelet distribution width (Bld) [Ratio] 14.3 % 11.8 - 14.4 % [employer] Phone: Platelet mean volume (Bld) [Entitic vol] 10.5 fL 8.1 - 13.5 fL [employer] Phone: Platelets (Bld) [#/Vol] 179 10*3/uL [employer] Phone: RBC (Bld) [#/Vol] 4.43 10*6/uL 4.21 - 5.7 7 m/uL [employer] Phone: WBC (Bld) [#/Vol] 15.4 10*3/uL High [employer] Phone: [facility] [employer] Phone: CT ABSCESS DRAINAGEOrdered B y: Lidia Whitney on 01-13-[address] guided placement of a 8 Congolese pelvic drainage catheter via right transgluteal fashion. [employer] Phone: Branden, Mhpn Incoming Radiant Results From [employer] - 01/13/2021 4:22 PM EDT PROCEDURE: CT GUIDEDTRANSGLUTEAL RIGHT PELVICABSCESS DRAINAGE CATHETER PLACEMENT MODERATE CONSCIOUS SEDATION 01/13/2021 HISTORY: ORDERING SYSTEM PROVIDED HISTORY: recto sigmoid abscess 2/2 diverticulitis TECHNOLOGIST PROVIDED HISTORY: recto sigmoid abscess 2/2 diverticulitis SEDATION: 1.5 mg versed and 100 mcg fentanyl were titrated intravenously for moderate sedation monitored under my direction. Total intra service time of sedation was 30 minutes. The patient's vital signs were monitored throughout the procedure and recorded in the patient's medical record by the nurse. TECHNIQUE: Informed consent was obtained after a detailed explanation of the procedure including risks, benefits, and alternatives. [place] protocol was followed. All elements of maximal sterile barrier technique were used. A suitable skin site was prepped and draped in sterile fashion following CT localization. An 18 gauge needle was advanced under fluoro-CT guidance into the pelvic fluid collection via right transgluteal fashion. CT images confirmed satisfactory needle tip position. A 0.035 guidewire was used, again CT images confirmed satisfactory wire purchase within the pelvic collection. The wire was used to place a 8 Congolese all-purpose locking drainage catheter after the tract was dilated. Approximately 60 cc purulent material was drained. The catheter was sutured to the skin and the patient tolerated the procedure well. The catheter was attached to VICTOR M suction drainage. Dose modulation, iterative reconstruction, and/or weight based adjustment of the mA/kV was utilized to reduce the radiation dose to as low as reasonably achievable. FINDINGS: A total of 60 mL of purulent fluid was removed and sent for diagnostic tests. Postprocedural CT demonstrated complete collapse of the cavity. IMPRESSION: Successful CT guided placement of a 8 Congolese pelvic drainage catheter via right transgluteal fashion. [employer] Phone: [facility] [employer] Phone: Comp Metabolic Pr/rfx MGon 0 01-13-2021 (cont.) Normal [facility] Comment on above: Result Comment: Aver age GFR for 60-69 years old: 85 mL/min/1.73sq m Chronic Kidney Disease: <60 mL/min/1.73sq m Kidney failure: <15 mL/min/1.73sq m eGFR calculated using average adult body mass. Additional eGFR calculator available at: http://www.Arzed[employer]/multiple_crcl_2011.htm Performed By: #### C BC, CMPX, MG, WIL #### [employer] [facility] [address] [place] [phone] [employer] Stock Checker: Dandre Griffiths MD Albumin [Mass/Vol] 3.3 g/dL Low 3.5-5.2 [facility] Comment on above: Performed By: #### C BC, CMPX, MG, WIL #### [employer] [facility] [address] [place] [phone] [employer]arel Stock Checker: Dandre Griffiths MD Albumin/Glob Ratio 1.0 Normal 1.0-2.5 [facility] Comment on above: Performed By: #### C BC, CMPX, MG, WIL #### [employer] [address] [place] [phone] [employer]arel Stock Checker: Dandre Griffiths MD Alkaline Phos 101 U/L Normal 40-129 [facility] Comment on above: Performed By: #### C BC, CMPX, MG, WIL #### [address] [address] [employer]arel Stock Checker: Dandre Griffiths MD ALT [Catalytic activity/Vol] 12 U/L Normal 5-41 [facility] Comment on above: Performed By: #### C BC, CMPX, MG, WIL #### [facility] [address] [place] [phone] [employer] Stock Checker: Dandre Griffiths MD Anion gap [Moles/Vol] 11 mmol/L Normal 9-17 [facility] Comment on above: Performed By: #### C BC, CMPX, MG, WIL #### [address] [address] [employer]arel Stock Checker: Dandre Griffiths MD AST [Catalytic activity/Vol] 14 U/L Normal <40 [facility] Comment on above: Performed By: #### C BC, CMPX, MG, WIL #### [address] [address] [employer]arel Stock Checker: Dandre Griffiths MD Bilirubin [Mass/Vol] 0.78 mg/dL Normal 0.3-1.2 [facility] Comment on above: Performed By: #### C BC, CMPX, MG, WIL #### [facility] [employer] [address] [place] [phone] [employer]arel Stock Checker: Dandre Griffiths MD Calcium [Mass/Vol] 8.5 mg/dL Low 8.6-10.4 [facility] Comment on above: Performed By: #### C BC, CMPX, MG, WIL #### [facility] [employer] [address] [place] [address] [employer]arel Stock Checker: Dandre Griffiths MD Chloride [Moles/Vol] 104 mmol/L Normal 98-107 [facility] Comment on above: Performed By: #### C BC, CMPX, MG, WIL #### [facility] [address] [place] [phone] [employer] Stock Checker: Dandre Griffiths MD CO2 [Moles/Vol] 23 mmol/L Normal 20-31 [facility] Comment on above: Performed By: #### C BC, CMPX, MG, WIL #### [facility] [address] [place] [phone] [employer] Stock Checker: Dandre Griffiths MD Creatinine [Mass/Vol] 0.79 mg/dL Normal 0.70-1.20 [facility] Comment on above: Performed By: #### C BC, CMPX, MG, WIL #### [facility] [address] [place] [phone] [employer] Stock Checker: Dandre Griffiths MD GFR, Amer >60 Normal >60 [facility] Comment on above: Performed By: #### C BC, CMPX, MG, WIL #### [facility] [address] [place] [phone] [employer]arel Stock Checker: Dandre Griffiths MD GFR,non Amer >60 Normal >60 [facility] Comment on above: Performed By: #### C BC, CMPX, MG, WIL #### [address] [address] [employer]arel Stock Checker: Dandre Griffiths MD Glucose [Mass/Vol] 93 mg/dL Normal 70-99 [facility] Comment on above: Performed By: #### C BC, CMPX, MG, WIL #### [facility] [address] [place] [phone] [employer] Stock Checker: Dandre Griffiths MD Potassium [Moles/Vol] 3.9 mmol/L Normal 3.7-5.3 [facility] Comment on above: Performed By: #### C BC, CMPX, MG, WIL #### [facility] [address] [place] [phone] [employer] Stock Checker: Dandre Griffiths MD Protein [Mass/Vol] 6.6 g/dL Normal 6.4-8.3 [facility] Comment on above: Performed By: #### C BC, CMPX, MG, WIL #### [facility] [address] [place] [phone] [employer] Stock Checker: Dandre Griffiths MD Sodium [Moles/Vol] 138 mmol/L Normal 135-144 [facility] Comment on above: Performed By: #### C BC, CMPX, MG, WIL #### [facility] [address] [place] [phone] [employer]arel Stock Checker: Dandre Griffiths MD Urea nitrogen [Mass/Vol] 15 mg/dL Normal - [facility] Comment on above: Performed By: #### C BC, CMPX, MG, WIL #### [facility] [address] [place] [phone] Apparel Stock Checker: Dandre Griffiths MD BUN/CRE Ratio NOT REPORTED Normal - [facility] Comment on above: Performed By: #### C BC, CMPX, MG, WIL #### [facility] [address] [place] [phone] Apparel Stock Checker: Dandre Griffiths MD Staging: NOT REPORTED Normal [facility] Comment on above: Performed By: #### C BC, CMPX, MG, WIL #### [facility] [employer] [address] [place] [address] [phone] Apparel Stock Checker: Dandre Griffiths MD Comprehensive Metabolic Pane l w/ Reflex to MGOrdered By: Elli Banuelos on 01-13-2021 Albumin [Mass/Vol] 3.3 g/dL Low 3.5 - 5.2 g/dL [employer] Phone: Albumin/Globulin [Mass ratio] 1.0 {ratio} [employer] Phone: ALP (Bld) [Catalytic activity/Vol] 101 U/L 40 - 129 U/L [facility] [employer] Phone: ALT [Catalytic activity/Vol] 12 U/L 5 - 41 U/L [employer] Phone: Anion gap [Moles/Vol] 11 mmol/L 9 - 17 mmol/L [employer] Phone: AST [Catalytic activity/Vol] 14 U/L <40 [employer] [facility] [employer] Phone: Bilirubin [Mass/Vol] 0.78 mg/dL 0.3 - 1 .2 mg/dL [employer] Phone: Calcium [Mass/Vol] 8.5 mg/dL Low 8.6 - 10. 4 mg/dL [employer] Phone: Chloride [Moles/Vol] 104 mmol/L 98 - 10 7 mmol/L [employer] Phone: CO2 [Moles/Vol] 23 mmol/L 20 - 31 mmol/L [employer] Phone: Creatinine [Mass/Vol] 0.79 mg/dL 0.70 - 1.20 mg/dL [employer] [facility] [employer] Phone: Free PSA/Total PSA [Mass fraction] 6.6 g/dL 6.4 - 8.3 g/dL [employer] Phone: GFR >60 >60 mL/min [facility] Phone: GFR Non- >60 >60 mL/min [facility] [employer] Phone: GFR/1.73 sq M.predicted MDRD (S/P/Bld) [Vol rate/Area] [employer] Phone: Comment on above: Average GFR for 60-6 9 years old: 85 mL/min/1.73sq m Chronic Kidney Disease: <60 mL/min/1.73sq m Kidney failure: <15 mL/min/1.73sq m eGFR calculated using average adult body mass. Additional eGFR calculator available at: http://www.FAGUO.[employer]/multiple_crcl_2012.htm GFR/1.73 sq M.predicted MDRD (S/P/Bld) [Vol rate/Area] NOT REPORTED [facility] Phone: Glucose [Mass/Vol] 93 mg/dL 70 - 99 mg/dL [facility] [employer] Phone: Potassium [Moles/Vol] 3.9 mmol/L 3.7 - 5.3 mmol/L [facility] Phone: Sodium [Moles/Vol] 138 mmol/L 135 - 144 mmol/L [facility] Phone: Urea nitrogen (BldV) [Mass/Vol] 15 mg/dL 8 - 23 mg/dL [employer] Phone: Urea nitrogen/Creatinine (Bld) [Mass ratio] NOT REPORTED [facility] [employer] Phone: Cult,Fluidon 01-13-2021 Cult,Fluid Specimen Description .ASPIRATE Special Requests NOT REPORTED Direct Exam NOT REPORTED Culture DUE TO THE SPECIMEN TYPE, THE ORDER WAS CANCELED AND REORDERED. PLEASE REFER TO: ANAEROBIC AEROBIC CULTURE Report Status FINAL 01/13/2021 Normal [facility] Comment on above: Performed By: #### F U #### [facility] [address] [place] [phone] Apparel Stock Checker: Dandre Griffiths MD Culture, Body FluidOrdered B y: Kendall Thomason on 01-13-2021 Bacteria identified Cx Nom (Unsp spec) DUE TO THE SPECIMEN TYPE, THE ORDER WAS CANCELED AND REORDERED. PLEASE REFER TO: ANAEROBIC AEROBIC CULTURE [facility] [employer] Phone: Direct Exam NOT REPORTED [employer] Work Phone: Special Requests NOT REPORTED [email or web address] Phone: Specimen Description .ASPIRATE [facility] Phone: [email or web address] Phone: Magnesiumon 01-13-2021 Magnesium [Mass/Vol] 1.9 mg/dL Normal 1.6-2.6 [facility] Comment on above: Performed By: #### C BC, CMPX, MG, WIL #### [employer] [address] [place] [phone] Apparel Stock Checker: Dandre Griffiths MD MagnesiumOrdered By: Elli Banuelos on 01-13-2021 Magnesium [Mass/Vol] 1.9 mg/dL 1.6 - 2 .6 mg/dL [facility] Phone: No Panel InformationOrdered By: Elli Banuelos on 01-13-2021 Interpretation and review of laboratory results Abnormal [facility] [employer] Phone: [facility] [employer] Phone: PROTIME-INROrdered By: Lidia Whitney on 01-13-2021 INR Coag (Bld) [Relative time] 1.0 {INR} [email or web address] Phone: Comment on above: Therapeutic Range: Moderate Anticoagulant Intensity: INR = 2.0-3.0 High Anticoagulant Intensity: INR = 2.5-3.5 PT Coag (PPP) [Time] 11.1 s [email or web address] Phone: [facility] [employer] Phone: PTon 01-13-2021 INR Coag (PPP) [Relative time] 1.0 {INR} Normal [facility] Comment on above: Result Comment: Therapeutic Range: Moderate Anticoagulant Intensity: INR = 2.0-3.0 High Anticoagulant Intensity: INR = 2.5-3.5 Performed By: #### P T #### [employer] [address] [place] [address] Apparel Stock Checker: Dandre Griffiths MD PT Coag (PPP) [Time] 11.1 s Normal 9.1-12.3 [facility] Comment on above: Performed By: #### P T #### [employer] [address] [place] [phone] Apparel Stock Checker: Dandre Griffiths MD PhosphorusOrdered By: Elli Lakisha on 01-13-2021 Phosphate [Mass/Vol] 2.2 mg/dL Low 2.5 - 4 .5 mg/dL [employer] Work Phone: Phosphorus, Inorg.on 021 Phosphorus, Inorg. 2.2 mg/dL Low 2.5-4.5 [facility] Comment on above: Performed By: #### C BC, CMPX, MG, WIL #### [facility] [address] [place] [address] Apparel Stock Checker: Dandre Griffiths MD CBC Auto DifferentialOrdered By: Shanel Fritz on 01-12-2021 [facility] Bands # 2.10 High [facility] Work Phone: Absolute Eos # [facility] Work Phone: Absolute Immature Granulocyte NOT REPORTED [facility] Work Phone: Absolute Lymph # 1.17 [facility] Work Phone: [facility] [place] # 0.93 [facility] Work Phone: Bands 9 % 0 - 10 % [facility] Work Phone: Basophils (Bld) [#/Vol] 0 - 2 % [facility] Work Phone: Basophils Absolute [facility] Work Phone: Differential Type NOT REPORTED [employer] Work Phone: Eosinophils % 0 - 5 % [facility] Work Phone: Hematocrit (Bld) [Volume fraction] 46.9 % 41 - 53 % [employer] Work Phone: Hemoglobin.gastrointe stinal spec 1 Ql (Stl) 15.7 g/dL 13.5 - 17.5 g/dL [employer] Work Phone: Immature Granulocytes NOT REPORTED 0 % [facility] Work Phone: Interpretation and review of laboratory results Abnormal [employer] Phone: Lymphocytes/100 WBC (Bld) 5 % Low 13 - 44 % [employer] Phone: MCH (RBC) [Entitic mass] 32.2 pg 26 - 34 pg [employer] Phone: MCHC (RBC) [Mass/Vol] 33.5 g/dL 31 - 3 7 g/dL [employer] Phone: MCV (RBC) [Entitic vol] 96.0 fL 80 - 100 fL [employer] Phone: Monocytes/100 WBC (Bld) 4 % Low 5 - 9 % [email or web address] Phone: Morphology Mohit (Bld) [Interp] Manual Differential Performed [email or web address] Phone: NRBC Automated NOT REPORTED per 100 WBC [employer] [facility] Work Phone: Platelet distribution width (Bld) [Ratio] 15.4 % High 12.1 - 15.2 % [employer] [facility] [employer] Phone: Platelet Estimate NOT REPORTED [employer] Phone: Platelet mean volume (Bld) [Entitic vol] NOT REPORTED 6.0 - 12.0 fL [employer] Phone: Platelets (Bld) [#/Vol] 200 10*3/uL [employer] [facility] [employer] Phone: RBC (Bld) [#/Vol] 4.89 10*6/uL 4.5 - 5.9 m/uL [employer] Phone: RBC (Bld) [#/Vol] NOT REPORTED [facility] [employer] Phone: Segmented neutrophils/100 WBC (Bld) 82 % High 39 - 75 % [employer] Phone: Segs Absolute 19.10 High [employer] Work Phone: WBC (Bld) [#/Vol] 23.3 10*3/uL Critically high [employer] Work Phone: WBC (Bld) [#/Vol] NOT REPORTED [employer] Phone: [facility] [employer] Phone: CT ABDOMEN PELVIS W IV CONTR AST Additional Contrast? NoneOrdered By: Shanel Fritz on 01-12-2021 1. Acute sigmoid diverticulitis with 5.5 x 6.2 cm perisigmoid rim-enhancing fluid collection with air-fluid level, consistent with perisigmoid abscess. There is a punctate focus of perisigmoid extraluminal gas that communicates with this rim-enhancing fluid collection/abscess. 2. Interval resolution of left hydroureteronephrosis. There are nonobstructing left renal calculi. There is a simple left renal cyst. 3. Stable approximately 5.0 x 5.0 cm infrarenal abdominal aortic aneurysm with minimal aortoiliac atherosclerosis. 4. Sequela of old granulomatous disease. [facility] [employer] Phone: CT abdomen and pelvi s with contrast CLINICAL: Abdominal pain. History of abdominal aortic aneurysm. Constipation for 3 days. Emesis 2 days ago. TECHNIQUE: Contiguous transaxial images were obtained from lung bases to pubic symphysis following the administration of oral and intravenous contrast without incident. Dose reduction: mA and/or kV are were adjusted by automated exposure control software based upon patients height and weight. FINDINGS: Comparison made to CT abdomen and pelvis dated 06/04/2020. There is a calcified right lower lobe granuloma and there is minimal right basilar dependent atelectasis. There are calcified hepatic and splenic granulomata. Gallbladder is normal. There is no intrahepatic or extrahepatic biliary ductal dilatation. The pancreas and bilateral adrenal glands are normal. There is a 2.2 x 2.9 cm simple left renal cyst. There are several nonobstructing left renal calculi, largest measuring 6 mm. There is no hydronephrosis. There is mild wall thickening of the posterior and left posterolateral urinary bladder wall near region of inflammation within the pelvis. There is no abdominal or pelvic lymphadenopathy. There is a stable infrarenal abdominal aortic aneurysm measuring approximately 5.0 x 5.0 cm. There is minimal aortoiliac atherosclerosis. Evaluation the stomach and bowel is limited in the absence of oral contrast. The stomach and small bowel are grossly normal without small bowel obstruction. There is sigmoid colonic diverticulosis with sigmoid wall thickening and perisigmoid inflammatory fat stranding, consistent with acute sigmoid diverticulitis. There is a punctate focus of extraluminal gas in the region of the distal sigmoid colon that communicates with a 5.5 x 6.2 cm pelvic rim-enhancing collection with air-fluid level, consistent with abscess. Several punctate foci of gas are noted within this fluid collection. There is degenerative disc disease of the lumbar spine, most pronounced at L3-L4 and L5-S1 with retrolisthesis of L5 on S1. There is wedging of the T12 vertebral body, age indeterminate. [facility] [employer] Phone: Branden, pn Incoming Radiant Results From [employer] - 01/12/2021 10:[address] abdomen and pelvis with contrast CLINICAL: Abdominal pain. History of abdominal aortic aneurysm. Constipation for 3 days. Emesis 2 days ago. TECHNIQUE: Contiguous transaxial images were obtained from lung bases to pubic symphysis following the administration of oral and intravenous contrast without incident. Dose reduction: mA and/or kV are were adjusted by automated exposure control software based upon patients height and weight. FINDINGS: Comparison made to CT abdomen and pelvis dated 06/04/2020. There is a calcified right lower lobe granuloma and there is minimal right basilar dependent atelectasis. There are calcified hepatic and splenic granulomata. Gallbladder is normal. There is no intrahepatic or extrahepatic biliary ductal dilatation. The pancreas and bilateral adrenal glands are normal. There is a 2.2 x 2.9 cm simple left renal cyst. There are several nonobstructing left renal calculi, largest measuring 6 mm. There is no hydronephrosis. There is mild wall thickening of the posterior and left posterolateral urinary bladder wall near region of inflammation within the pelvis. There is no abdominal or pelvic lymphadenopathy. There is a stable infrarenal abdominal aortic aneurysm measuring approximately 5.0 x 5.0 cm. There is minimal aortoiliac atherosclerosis. Evaluation the stomach and bowel is limited in the absence of oral contrast. The stomach and small bowel are grossly normal without small bowel obstruction. There is sigmoid colonic diverticulosis with sigmoid wall thickening and perisigmoid inflammatory fat stranding, consistent with acute sigmoid diverticulitis. There is a punctate focus of extraluminal gas in the region of the distal sigmoid colon that communicates with a 5.5 x 6.2 cm pelvic rim-enhancing collection with air-fluid level, consistent with abscess. Several punctate foci of gas are noted within this fluid collection. There is degenerative disc disease of the lumbar spine, most pronounced at L3-L4 and L5-S1 with retrolisthesis of L5 on S1. There is wedging of the T12 vertebral body, age indeterminate. IMPRESSION: 1. Acute sigmoid diverticulitis with 5.5 x 6.2 cm perisigmoid rim-enhancing fluid collection with air-fluid level, consistent with perisigmoid abscess. There is a punctate focus of perisigmoid extraluminal gas that communicates with this rim-enhancing fluid collection/abscess. 2. Interval resolution of left hydroureteronephrosis. There are nonobstructing left renal calculi. There is a simple left renal cyst. 3. Stable approximately 5.0 x 5.0 cm infrarenal abdominal aortic aneurysm with minimal aortoiliac atherosclerosis. 4. Sequela of old granulomatous disease. [employer] Phone: [employer] Phone: Comprehensive Metabolic Pane l w/ Reflex to MGOrdered By: Shanel Fritz on 01-12-2021 Albumin [Mass/Vol] 3.9 g/dL 3.5 - 5.2 g/dL [employer] Phone: Albumin/Globulin Ratio NOT REPORTED [employer] Phone: ALP (Bld) [Catalytic activity/Vol] 120 U/L 40 - 129 U/L [employer] Phone: ALT [Catalytic activity/Vol] 15 U/L 5 - 41 U/L [employer] Phone: Anion gap [Moles/Vol] 11 mmol/L 9 - 17 mmol/L [employer] Phone: AST [Catalytic activity/Vol] 17 U/L <40 [employer] Phone: Bilirubin [Mass/Vol] 0.89 mg/dL 0.30 - 1.20 mg/dL [employer] Phone: Calcium [Mass/Vol] 9.6 mg/dL 8.6 - 10. 4 mg/dL [employer] Phone: Chloride [Moles/Vol] 103 mmol/L 98 - 10 7 mmol/L [employer] Phone: CO2 [Moles/Vol] 23 mmol/L 20 - 31 mmol/L [employer] Phone: Creatinine [Mass/Vol] 0.75 mg/dL 0.70 - 1.20 mg/dL [employer] Phone: Free PSA/Total PSA [Mass fraction] 8.0 g/dL 6.4 - 8.3 g/dL [employer] Phone: GFR >60 >60 mL/min [employer] Phone: GFR Non- >60 >60 mL/min [employer] Phone: GFR/1.73 sq M.predicted MDRD (S/P/Bld) [Vol rate/Area] [employer] Phone: Comment on above: Average GFR for 60-6 9 years old: 85 mL/min/1.73sq m Chronic Kidney Disease: <60 mL/min/1.73sq m Kidney failure: <15 mL/min/1.73sq m eGFR calculated using average adult body mass. Additional eGFR calculator available at: http://www.[employer]/multiple_crcl_2012.htm GFR/1.73 sq M.predicted MDRD (S/P/Bld) [Vol rate/Area] NOT REPORTED [employer] Phone: Glucose [Mass/Vol] 125 mg/dL High 70 - 99 mg/dL [facility] [employer] Phone: Interpretation and review of laboratory results Abnormal [facility] [employer] Phone: Potassium [Moles/Vol] 4.0 mmol/L 3.7 - 5.3 mmol/L [email or web address]: Sodium [Moles/Vol] 137 mmol/L 135 - 144 mmol/L [email or web address] Phone: Urea nitrogen (BldV) [Mass/Vol] 16 mg/dL 8 - 23 mg/dL [facility] [employer] Phone: Urea nitrogen/Creatinine (Bld) [Mass ratio] 21 High [facility] [employer] Phone: Lactic AcidOrdered By: Shanel Fritz on 01-12-2021 Lactate [Moles/Vol] 0.8 mmol/L 0.5 - 2. 2 mmol/L [email or web address] Phone: [facility] [employer] Phone: LipaseOrdered By: Shanel arauz on 01-12-2021 Lipase [Catalytic activity/Vol] 14 U/L 13 - 60 U/L [facility] [employer] Phone: Microscopic UrinalysisOrdere d By: Shanel Fritz on 01-12-2021 - [email or web address] Phone: Amorphous, UA NOT REPORTED None [facility] Work Phone: Bacteria, UA NOT REPORTED None [facility] Work Phone: Casts UA NOT REPORTED /LPF [facility] [employer] Work Phone: Crystals, UA NOT REPORTED None /HPF [facility] Work Phone: Epithelial Cells UA NOT REPORTED /HPF [facility] [employer] Work Phone: Interpretation and review of laboratory results Abnormal [facility] [employer] Work Phone: Mucus, UA 1+ Abnormal None [facility] Work Phone: Other Observations UA NOT REPORTED NOT REQ. [facility] Work Phone: RBC, UA 0 TO 2 [facility] Work Phone: Renal Epithelial, UA NOT REPORTED 0 /HPF [facility] Work Phone: Trichomonas, UA NOT REPORTED None [facility] Work Phone: WBC, UA 0 TO 2 0 /HPF [facility] Work Phone: Yeast, UA NOT REPORTED None [facility] Work Phone: [facility] Work Phone: No Panel InformationOrdered By: Shanel Fritz on 01-12-2021 [facility] [employer] Work Phone: Urinalysis, reflex to micros copicOrdered By: Shanel Fritz on 01-12-2021 Bilirubin Urine Negative NEGATIVE [facility] Work Phone: Color, UA TAMIKA Abnormal YELLOW [facility] Work Phone: Glucose, Ur Negative NEGATIVE [facility] Work Phone: Interpretation and review of laboratory results Abnormal [facility] Work Phone: Ketones Ql (U) SMALL Abnormal NEGATIVE [facility] Work Phone: Leukocyte esterase Test strip Ql (U) Negative NEGATIVE [facility] Work Phone: Nitrite, Urine Negative NEGATIVE [facility] Work Phone: pH, UA 6.5 [facility] [employer] Work Phone: Protein, UA TRACE Abnormal NEGATIVE [facility] Work Phone: Specific [place], UA 1.010 [facility] [employer] Work Phone: Turbidity UA CLEAR CLEAR [facility] [employer] Work Phone: Urinalysis Comments [facility] [employer] Work Phone: Urine Hgb TRACE Abnormal NEGATIVE [facility] Work Phone: Urobilinogen, Urine 4 mg/dL Abnormal Normal [facility] Work Phone: [facility] Work Phone: FLUORO FOR SURGICAL PROCEDUR ESon 06-18-2020 FLUORO FOR SURGICAL PROCEDURES Radiology exam is complete. No Radiologist dictation. Please follow up with ordering provider. Final result Normal [facility] OPERATIVE REPORTon OPERATIVE REPORT [address] [id number] OPERATIVE REPORT PATIENT NAME: DENVER PERDUE : 1960 MED REC NO: [id number] ROOM: ACCOUNT NO: [id number] ADMIT DATE: 06/18/2020 PROVIDER: Aknita Mendez DATE OF PROCEDURE: 06/18/2020 SURGEON: Dr. Ankita Mendez. COURTROOM DEPUTY OR CALENDAR CLERK: None. PREOPERATIVE DIAGNOSES: 1. Left ureteral calculus. 2. Left renal calculus. POSTOPERATIVE DIAGNOSES: 1. Left ureteral calculus. 2. Left renal calculus. PROCEDURES PERFORMED: Cystoscopy, left ureteroscopy, left Holmium laser lithotripsy, left ureteral stent exchange. ANESTHESIA: General. COMPLICATIONS: None. ESTIMATED BLOOD LOSS: Minimal. SPECIMENS: None. PROSTHESIS: A 6-Congolese x 26-cm double-J ureteral stent. DISPOSITION: Stable. FINDINGS: 1. Multiple left ureteral stones. 2. Multiple small left renal stones. INDICATIONS: The patient is a 59-year-old male with a history of stone disease, here now after having a stent placed for temporizing therapy. DESCRIPTION OF PROCEDURE: The patient was taken back to the operating room after informed consent including all risks, benefits, and alternatives were obtained. The patient was transferred from the [facility] onto the operating table, where he was induced under general anesthesia and given IV Cipro for preoperative antibiotic prophylaxis. To begin the case, he was prepped and draped in the normal sterile fashion, placed in the dorsal lithotomy. He had a 22-Congolese sheath with a 30-degree lens passed through the urethra into the bladder. Once in the bladder, we identified the left ureteral orifice. We were able to identify the stent. We grasped the stent and removed through the meatus. A 0.035-inch wire was passed up. We were able to then place a dual-lumen catheter. Additional Glidewire was passed up the left ureter into the kidney. Once we were able to do this, we then placed a flexible ureteroscope over the Glidewire into the left ureter. We identified several stones in the distal ureter. We were able to ablate these stones using 200 micron laser fiber. Once this was done, the fragments did come out. We then made our way up into the kidney. We identified several small fragments in the midpole. These were then ablated as well using the 200 micron laser fiber. Once this was done, we removed the scope leaving the Glidewire in place. We placed the cystoscope over the Glidewire and placed a 6-Congolese x 26-cm double-J ureteral stent over the Glidewire up into the kidney. Glidewire was removed. Proximal curl was confirmed by fluoroscopy and distal curl was confirmed by visualization. At this point in time, the stent string was attached to the glans penis with Steris and benzoin. He was awoken from general anesthesia, transferred to the [facility], and taken to the PACU in satisfactory condition by Nursing and Anesthesia Teams. PLAN: The patient will be discharged to home per PACU criteria and follow up with us in three to seven days for stent removal via string. ANKITA MENDEZ TZ/[id number]_T Doc#: [id number] CC: Normal [facility] FLUORO FOR SURGICAL PROCEDUR ESon 06-05-2020 FLUORO FOR SURGICAL PROCEDURES Radiology exam is complete. No Radiologist dictation. Please follow up with ordering provider. Final result Normal [facility] Radiology exam is complete. No Radiologist dictation. Please follow up with ordering provider. [facility], [place] OPERATIVE REPORTon OPERATIVE REPORT [address] [address] OPERATIVE REPORT PATIENT NAME: DENVER PERDUE : 1960 MED REC NO: [id number] ROOM: ACCOUNT NO: [id number] ADMIT DATE: 06/05/2020 PROVIDER: Ankita Mendez DATE OF PROCEDURE: 06/05/2020 SURGEON: Dr. Ankita Mendez. COURTROOM DEPUTY OR CALENDAR CLERK: None. PREOPERATIVE DIAGNOSIS: Left ureteral calculus. POSTOPERATIVE DIAGNOSIS: Left ureteral calculus. PROCEDURES PERFORMED: Cystoscopy and left ureteral stent. ANESTHESIA: General. COMPLICATIONS: None. ESTIMATED BLOOD LOSS: Minimal. SPECIMENS: None. PROSTHESIS: A 6-Congolese x 26 cm double-J ureteral stent. DISPOSITION: Stable. FINDINGS: Left ureteral obstruction. INDICATIONS: The patient is a 59-year-old male with CT-proven left ureteral stone as well as left renal stone, here now for temporizing therapy in the form of left ureteral stent placement. DESCRIPTION OF PROCEDURE: The patient was taken back to the operating room after informed consent including all risks, benefits, and alternatives were obtained. The patient was transferred from the [facility] onto the operating table, where he was induced under general anesthesia, and given IV Cipro for preoperative antibiotic prophylaxis. To begin the case, he was prepped and draped in the normal sterile fashion and placed in dorsal lithotomy. He had a 22-Congolese sheath with a 30-degree lens passed through the urethra into the bladder. Once in the bladder, we identified the left ureteral orifice. A 0.035-inch wire was attempted to be placed up. We were unable to place the wire up. We used an open-ended catheter 5-Congolese and passed up the ureter. We were able to pass by the stone, placed the Glidewire by. We then were able to remove the catheter leaving the Glidewire in place and then we placed a 6-Congolese x 26-cm double-J ureteral stent over the Glidewire up into the kidney. We did have some trouble getting by the distal stone. Once this was done, we removed the Glidewire. The proximal curl was confirmed by fluoroscopy. Distal curl was confirmed by visualization. At this point in time, the bladder was drained. He was awoken from general anesthesia, transferred to the [facility], and taken to the PACU in satisfactory condition by Nursing and Anesthesia Teams. PLAN: The patient will be discharged home per PACU criterion and follow up with us in one to two weeks for definitive stone therapy. He will be on antibiotics during the interim. ANKITA MENDEZ TZ/[id number] Doc#: [id number] CC: Normal [facility] Basic Metabolic Panel w/ Ref roly to MGon 06-04-2020 Anion gap [Moles/Vol] 10 mmol/L 9 - 17 mmol/L [place], [place] Bun/Cre Ratio 12 [place], [place] Calcium [Mass/Vol] 10.0 mg/dL 8.6 - 10. 4 mg/dL [place] Chloride [Moles/Vol] 104 mmol/L 98 - 10 7 mmol/L [place] CO2 [Moles/Vol] 27 mmol/L 20 - 31 mmol/L [place] Creatinine [Mass/Vol] 1.11 mg/dL 0.7 - 1.2 mg/dL [place] GFR >60 >60 mL/min [place] GFR Non- >60 >60 mL/min [place] GFR/1.73 sq M predicted among non-blacks MDRD (S/P/Bld) [Vol rate/Area] NOT REPORTED [place] GFR/1.73 sq M predicted among non-blacks MDRD (S/P/Bld) [Vol rate/Area] [place] Comment on above: Average GFR for 60-6 9 years old: 85 mL/min/1.73sq m Chronic Kidney Disease: <60 mL/min/1.73sq m Kidney failure: <15 mL/min/1.73sq m eGFR calculated using average adult body mass. Additional eGFR calculator available at: http://www.[employer]/multiple_crcl_2012.htm Glucose [Mass/Vol] 127 mg/dL High 70 - 99 mg/dL [place] Interpretation and review of laboratory results Abnormal [place] Potassium [Moles/Vol] 4.1 mmol/L 3.7 - 5.3 mmol/L [place] Sodium [Moles/Vol] 141 mmol/L 135 - 144 mmol/L [place] Urea nitrogen [Mass/Vol] 13 mg/dL 8 - 23 mg/dL [place] CBC Auto Differentialon 05-22 Basophils (Bld) [#/Vol] 0.00 10*3/uL [place] Basophils/100 WBC (Bld) 0 % 0 - 2 % [place] Differential Type YES [facility] [place] Eosinophils (Bld) [#/Vol] 0.00 10*3/uL [place] Eosinophils/100 WBC (Bld) 0 % 0 - 5 % [place] Erythrocyte distribution width (RBC) [Ratio] 14.6 % 12.1 - 15.2 % [place] Hematocrit (Bld) [Volume fraction] 46.3 % 41 - 53 % [place] Hemoglobin (Bld) [Mass/Vol] 15.6 g/dL 13.5 - 17.5 g/dL [place] Interpretation and review of laboratory results Abnormal [place] Lymphocytes (Bld) [#/Vol] 0.90 10*3/uL [place] Lymphocytes/100 WBC (Bld) 5 % Low 13 - 44 % [place] MCH (RBC) [Entitic mass] 32.0 pg 26 - 34 pg [place] MCHC (RBC) [Mass/Vol] 33.8 g/dL 31 - 3 7 g/dL [place] MCV (RBC) [Entitic vol] 94.8 fL 80 - 100 fL [place] Monocytes (Bld) [#/Vol] 0.70 10*3/uL [place] Monocytes/100 WBC (Bld) 5 % 5 - 9 % [place] Platelet mean volume (Bld) [Entitic vol] NOT REPORTED 6 - 12 fL [place] Platelets (Bld) [#/Vol] NOT REPORTED [place] Platelets (Bld) [#/Vol] 251 10*3/uL [place] RBC (Bld) [#/Vol] 4.89 10*6/uL 4.5 - 5.9 m/uL [place] RBC morphology finding Nom (Bld) NOT REPORTED [place] Segmented neutrophils/100 WBC (Bld) 90 % High 39 - 75 % [place] Segs Absolute 14.30 [place] WBC (Bld) [#/Vol] NOT REPORTED per 100 WBC [place] WBC (Bld) [#/Vol] 15.9 10*3/uL [place] WBC Morphology NOT REPORTED [place] COVID-19, PCRon 06-04-2020 SARS-CoV-2, Rapid Not Detected Not Detected [place], [place] Comment on above: Rapid NAAT: The specimen is NEGATIVE for SARS-CoV-2, the novel coronavirus associated with COVID-19. The ID NOW COVID-19 assay is designed to detect the virus that causes COVID-19 in patients with signs and symptoms of infection who are suspected of COVID-19. An individual without symptoms of COVID-19 and who is not shedding SARS-CoV-2 virus would expect to have a negative (not detected) result in this assay. Negative results should be treated as presumptive and, if inconsistent with clinical signs and symptoms or necessary for patient management, should be tested with an alternative molecular assay. Negative results do not preclude SARS-CoV-2 infection and should not be used as the sole basis for patient management decisions. Fact sheet for Healthcare Providers: https://www.fda.gov/media/232758/download Fact sheet for Patients: https://www.fda.gov/media/134010/download Methodology: Isothermal Nucleic Acid Amplification Source .THROAT [place] CT ABDOMEN PELVIS W IV CONTR AST Additional Contrast? Radiologist Recommendationon 06-04-2020 EXAMINATION: CT ABDO MEN PELVIS W IV CONTRAST HISTORY: Contrast As per Dr Cornelius. COMPARISON: CT of abdomen and pelvis from 06/04/2020. TECHNIQUE: CT examination of the abdomen and pelvis following the administration of 50 mL of Isovue-370 intravenous contrast. Coronal and sagittal reformations were performed. Oral contrast was not given. Dose reduction techniques were achieved by using automated exposure control and/or adjustment of mA and/or kV according to patient size and/or use of iterative reconstruction technique. REPORT: The lung bases are clear of infiltrate or nodule or effusion. The visualized heart shows no gross enlargement or pericardial effusion. A mild hiatal hernia is noted without inflammation or edema. The abdominal and pelvic vasculature show no acute process. There is prominence of the abdominal aorta noted at the lower aspect of the kidneys with a maximum measurement of 5.2 cm which is stable. No obvious dissection is noted. The spleen shows no abnormal density or enhancement. The stomach, pancreas, duodenum, and adrenal glands show no acute or gross process. The liver may show slight fatty changes without focal abnormal density or enhancement or ductal dilatation. The gallbladder shows no stones or irregularity. The left kidney shows delay with excretion. Multiple calculi are noted of the left kidney better seen on the earlier CT study. No obvious right renal stones are noted. No inflammation is noted of the right kidney or right ureter. There are mild inflammatory changes including mild surrounding fluid about the left kidney. Moderate to prominent hydroureteronephrosis. There are areas of mild inflammation along the left ureter. A left ureteral stone is again difficult to visualize. The bladder is unremarkable. Limited views of the external genitalia are normal. Perirectal regions and inguinal regions are unremarkable. The anus and rectum are unremarkable. The prostate is mildly prominent with a mid transverse measurement of 5.1 cm causing slight effacement against the floor of the bladder. Calcified phleboliths are noted in the pelvis. Seminal vesicles are unremarkable. Moderate diverticulosis is noted of the sigmoid colon without inflammation. There is moderate stool throughout the colon. The mesentery and ileocecal junction is unremarkable. The appendix is within normal limits. There is no free air, loculated fluid, mass, or lymphadenopathy. The subcutaneous tissues are unremarkable. No abdominal wall hernia is noted. Mild osteopenic and moderate degenerative changes are noted throughout. No bony lesions are noted. [facility] [place], [place], [facility] Incoming Radiant Results From [employer] - 06/04/2020 6:48 PM EST EXAMINATION: CT ABDOMEN PELVIS W IV CONTRAST HISTORY: Contrast As per Dr Cornelius. COMPARISON: CT of abdomen and pelvis from 06/04/2020. TECHNIQUE: CT examination of the abdomen and pelvis following the administration of 50 mL of Isovue-370 intravenous contrast. Coronal and sagittal reformations were performed. Oral contrast was not given. Dose reduction techniques were achieved by using automated exposure control and/or adjustment of mA and/or kV according to patient size and/or use of iterative reconstruction technique. REPORT: The lung bases are clear of infiltrate or nodule or effusion. The visualized heart shows no gross enlargement or pericardial effusion. A mild hiatal hernia is noted without inflammation or edema. The abdominal and pelvic vasculature show no acute process. There is prominence of the abdominal aorta noted at the lower aspect of the kidneys with a maximum measurement of 5.2 cm which is stable. No obvious dissection is noted. The spleen shows no abnormal density or enhancement. The stomach, pancreas, duodenum, and adrenal glands show no acute or gross process. The liver may show slight fatty changes without focal abnormal density or enhancement or ductal dilatation. The gallbladder shows no stones or irregularity. The left kidney shows delay with excretion. Multiple calculi are noted of the left kidney better seen on the earlier CT study. No obvious right renal stones are noted. No inflammation is noted of the right kidney or right ureter. There are mild inflammatory changes including mild surrounding fluid about the left kidney. Moderate to prominent hydroureteronephrosis. There are areas of mild inflammation along the left ureter. A left ureteral stone is again difficult to visualize. The bladder is unremarkable. Limited views of the external genitalia are normal. Perirectal regions and inguinal regions are unremarkable. The anus and rectum are unremarkable. The prostate is mildly prominent with a mid transverse measurement of 5.1 cm causing slight effacement against the floor of the bladder. Calcified phleboliths are noted in the pelvis. Seminal vesicles are unremarkable. Moderate diverticulosis is noted of the sigmoid colon without inflammation. There is moderate stool throughout the colon. The mesentery and ileocecal junction is unremarkable. The appendix is within normal limits. There is no free air, loculated fluid, mass, or lymphadenopathy. The subcutaneous tissues are unremarkable. No abdominal wall hernia is noted. Mild osteopenic and moderate degenerative changes are noted throughout. No bony lesions are noted. IMPRESSION: 1. Again noted is a moderate to prominent left-sided hydroureteronephrosis with inflammation. No obvious calculus is noted. There are some calcifications along the path of the left ureter but difficult to separate out from vascular calcifications. There is delay of excretion of the left kidney compared to the right. 2. Prominent but stable abdominal aortic aneurysm. [facility], [place] 1. Again noted is a moderate to prominent left-sided hydroureteronephrosis with inflammation. No obvious calculus is noted. There are some calcifications along the path of the left ureter but difficult to separate out from vascular calcifications. There is delay of excretion of the left kidney compared to the right. 2. Prominent but stable abdominal aortic aneurysm. [place], [place] CT ABDOMEN PELVIS WO CONTRAS Ton 06-04-2020 EXAMINATION: CT ABDO MEN PELVIS WO CONTRAST HISTORY: Reason for exam:->renal stone protocol COMPARISON: CT with contrast obtained 1659 hours same date reported separately. TECHNIQUE: CT examination of the abdomen and pelvis without IV contrast. Coronal and sagittal reformations were performed. Dose reduction techniques were achieved by using automated exposure control and/or adjustment of mA and/or kV according to patient size and/or use of iterative reconstruction technique. FINDINGS: A 5.1 to 5.2 cm greatest diameter infrarenal abdominal aortic aneurysm is present without involvement of the iliac arteries. There is perinephric stranding and edema of the left kidney with 3 or 4 small subcentimeter stones in the kidney and mild hydronephrosis and hydroureter which is difficult to follow past the level of the aneurysm. There are several calcifications in the inferior true pelvis that likely represent phleboliths, although possibility of a distal ureteral calculus is also present, particularly a 3 to 4 mm stone on image 95 series 2 at the level of the left ischial spine. 2.5 cm cyst left kidney. Normal size prostate. Minimal urine in the bladder. Appendix normal. Right kidney normal. No bowel obstruction. Normal gallbladder, spleen, pancreas and adrenal glands. Lung bases are clear. No free air. Abdominal wall intact. Degenerative changes are most prominent at L3-L4 in the lumbar spine. [place], [place] High-grade obstructi on of the left ureter of uncertain origin, likely due to a calculus, but difficult to separate from vascular calcifications within the lower abdomen and pelvis. Additional delayed images after contrast can be obtained as clinically indicated. 5.1-5.2 cm in greatest diameter infrarenal abdominal aortic aneurysm without leak. Diverticulosis sigmoid colon, without acute diverticulitis. Preliminary report was given by myself to Dr. Brasher at the conclusion of the study. With contrast CT abdomen pelvis dictated separately. [place], [place], [facility] Incoming Radiant Results From [employer] - 06/04/2020 5:28 PM EST EXAMINATION: CT ABDOMEN PELVIS WO CONTRAST HISTORY: Reason for exam:->renal stone protocol COMPARISON: CT with contrast obtained 1659 hours same date reported separately. TECHNIQUE: CT examination of the abdomen and pelvis without IV contrast. Coronal and sagittal reformations were performed. Dose reduction techniques were achieved by using automated exposure control and/or adjustment of mA and/or kV according to patient size and/or use of iterative reconstruction technique. FINDINGS: A 5.1 to 5.2 cm greatest diameter infrarenal abdominal aortic aneurysm is present without involvement of the iliac arteries. There is perinephric stranding and edema of the left kidney with 3 or 4 small subcentimeter stones in the kidney and mild hydronephrosis and hydroureter which is difficult to follow past the level of the aneurysm. There are several calcifications in the inferior true pelvis that likely represent phleboliths, although possibility of a distal ureteral calculus is also present, particularly a 3 to 4 mm stone on image 95 series 2 at the level of the left ischial spine. 2.5 cm cyst left kidney. Normal size prostate. Minimal urine in the bladder. Appendix normal. Right kidney normal. No bowel obstruction. Normal gallbladder, spleen, pancreas and adrenal glands. Lung bases are clear. No free air. Abdominal wall intact. Degenerative changes are most prominent at L3-L4 in the lumbar spine. IMPRESSION: High-grade obstruction of the left ureter of uncertain origin, likely due to a calculus, but difficult to separate from vascular calcifications within the lower abdomen and pelvis. Additional delayed images after contrast can be obtained as clinically indicated. 5.1-5.2 cm in greatest diameter infrarenal abdominal aortic aneurysm without leak. Diverticulosis sigmoid colon, without acute diverticulitis. Preliminary report was given by myself to Dr. Brasher at the conclusion of the study. With contrast CT abdomen pelvis dictated separately. [facility], [place] Microscopic Urinalysison Amorphous, UA NOT REPORTED None [facility], [place] Bacteria, UA RARE Abnormal None [facility], [place] Casts UA NOT REPORTED /LPF [facility], [place] Crystals, UA NOT REPORTED None /HPF [facility], [place] Epithelial Cells UA NOT REPORTED /HPF [facility], [place] Interpretation and review of laboratory results Abnormal [facility], [place] Mucus, UA NOT REPORTED None [facility], [place] Other Observations UA NOT REPORTED NOT REQ. [place] RBC (U) [#/Vol] LOADED [place] Renal Epithelial, UA NOT REPORTED 0 /HPF [place], [place] Trichomonas, UA NOT REPORTED None [place], [place] WBC, UA 5 TO 10 0 /HPF [place], [place] Yeast, UA NOT REPORTED None [place], [place] Otheron 06-04-2020 SARS-CoV-2 [place], [place] Immature granulocytes (Bld) [#/Vol] NOT REPORTED 0 % [place] Urinalysis, reflex to micros copicon 06-04-2020 Bilirubin Urine Negative NEGATIVE [place] Color, UA YELLOW YELLOW [place], [place] Glucose, Ur Negative NEGATIVE [place] Interpretation and review of laboratory results Abnormal [place] Ketones Ql (U) Negative NEGATIVE [place] Leukocyte esterase Test strip Ql (U) 1+ Abnormal NEGATIVE [place] Nitrite, Urine Negative NEGATIVE [place] pH, UA 8.0 [place], [place] Protein (U) [Mass/Vol] TRACE Abnormal NEGATIVE [place] Specific [place], UA 1.010 [place], [place] Turbidity UA HAZY Abnormal CLEAR [place] Urinalysis Comments [place] Urine Hgb 3+ Abnormal NEGATIVE [place] Urobilinogen, Urine Normal Normal [place] Vital Signs Date Time Vital Sign Value Performing Clinician Kasii alexandr 02-28-2024 14:21-0400 Blood Pressure Location Mirian Ugarte [facility] 02-28-2024 14:21-0400 Diastolic blood pressure 100 mm[Hg] Mirian Ugarte [facility] 02-28-2024 14:21-0400 Heart rate 75 /min Mirian Ugarte [facility] 02-28-2024 14:21-0400 SaO2% (BldA) [Mass fraction] 95 % Mirian Ugarte [facility] 02-28-2024 14:21-0400 Systolic blood pressure 172 mm[Hg] Mirian Ugarte [facility] 01-01-2024 12:30-0400 Diastolic blood pressure 93 mm[Hg] Jillian Aranda [facility] 01-01-2024 12:30-0400 Heart rate 78 /min Jillian Aranda [facility] 01-01-2024 12:30-0400 Mean blood pressure 112 mm[Hg] Jillian Aranda [facility] 01-01-2024 12:30-0400 Systolic blood pressure 151 mm[Hg] Jillian Aranda [facility] 12-27-2023 13:22-0400 Heart rate 59 /min Cresencio Raymond [facility] 12-27-2023 13:22-0400 SaO2% (BldA) [Mass fraction] 96 % Cresencio Andrade [facility] 12-27-2023 13:22-0400 Diastolic blood pressure 98 mm[Hg] Cresencio Andrade [facility] 12-27-2023 13:22-0400 Mean blood pressure 123 mm[Hg] Cresencio Andrade [facility] 12-27-2023 13:22-0400 Systolic blood pressure 171 mm[Hg] Cresencio Andrade [facility] 12-27-2023 13:22-0400 Respiratory rate 16 /min Cresencio Andrade [facility] 12-27-2023 13:13-0400 Diastolic blood pressure 102 mm[Hg] Cresencio Andrade [facility] 12-27-2023 13:13-0400 Heart rate 63 /min Cresencio Andrade [facility] 12-27-2023 13:13-0400 Respiratory rate 18 /min Cresencio Andrade [facility] 12-27-2023 13:13-0400 SaO2% (BldA) [Mass fraction] 97 % Cresencio Andrade [facility] 12-27-2023 13:13-0400 Systolic blood pressure 174 mm[Hg] Cresencio Andrade [facility] 12-27-2023 11:59-0400 Heart rate 60 /min Dupont Raymond [facility] 12-27-2023 11:59-0400 SaO2% (BldA) [Mass fraction] 98 % Cresencio Raymond [facility] 12-27-2023 11:59-0400 Body temperature 97.52 [degF] Cresencio Andrade [facility] 12-27-2023 11:57-0400 Diastolic blood pressure 99 mm[Hg] Cresencio Andrade [facility] 12-27-2023 11:57-0400 Mean blood pressure 121 mm[Hg] Cresencio Andrade [facility] 12-27-2023 11:57-0400 Systolic blood pressure 166 mm[Hg] Cresencio Andrade [facility] 12-27-2023 11:57-0400 Respiratory rate 16 /min Cresencio Andrade [facility] 09-07-2023 15:37-0400 Respiratory rate 14 /min Cresencio Andrade [facility] 08-02-2023 11:35-0400 Heart rate 68 /min Cresencio Andrade [facility] 08-02-2023 11:35-0400 SaO2% (BldA) [Mass fraction] 95 % Cresencio Andrade [facility] 08-02-2023 11:35-0400 Diastolic blood pressure 90 mm[Hg] Cresencio Andrade [facility] 08-02-2023 11:35-0400 Mean blood pressure 114 mm[Hg] Cresencio Andrade [facility] 08-02-2023 11:35-0400 Systolic blood pressure 161 mm[Hg] Cresencio Andrade [facility] 08-02-2023 11:34-0400 Respiratory rate 16 /min Cresencio Andrade [facility] 08-02-2023 11:28-0400 Diastolic blood pressure 94 mm[Hg] Cresencio Andrade [facility] 08-02-2023 11:28-0400 Heart rate 73 /min Cresencio Andrade [facility] 08-02-2023 11:28-0400 SaO2% (BldA) [Mass fraction] 97 % Cresencio Andrade [facility] 08-02-2023 11:28-0400 Systolic blood pressure 162 mm[Hg] Cresencio Andrade [facility] 08-02-2023 10:58-0400 Heart rate 71 /min Cresencio Andrade [facility] 08-02-2023 10:58-0400 SaO2% (BldA) [Mass fraction] 94 % Dupont Raymond [facility] 08-02-2023 10:58-0400 Body temperature 98.42 [degF] Cresencio Andrade [facility] 08-02-2023 10:55-0400 Diastolic blood pressure 86 mm[Hg] Cresencio Raymond [facility] 08-02-2023 10:55-0400 Mean blood pressure 109 mm[Hg] Cresencio Andrade [facility] 08-02-2023 10:55-0400 Systolic blood pressure 154 mm[Hg] Cresencio Andrade [facility] 08-02-2023 10:54-0400 Respiratory rate 14 /min Cresencio Andrade [facility] 08-01-2023 07:58-0400 Blood Pressure Location Bethargelia Elias [facility] 08-01-2023 07:58-0400 Body temperature 97.88 [degF] Beth Curt [facility] 08-01-2023 07:58-0400 Diastolic blood pressure 80 mm[Hg] Beth Curt [facility] 08-01-2023 07:58-0400 Heart rate 72 /min Beth Curt [facility] 08-01-2023 07:58-0400 Respiratory rate 18 /min Beth Curt [facility] 08-01-2023 07:58-0400 SaO2% (BldA) [Mass fraction] 97 % Beth Curt [facility] 08-01-2023 07:58-0400 Systolic blood pressure 130 mm[Hg] Beth Curt [facility] 06-16-2023 07:49-0500 Diastolic blood pressure 83 mm[Hg] Jillian Aranda [facility] 06-16-2023 07:49-0500 Heart rate 66 /min Jillian Aranda [facility] 01-26-2024 07:49-0500 Mean blood pressure 106 mm[Hg] Jillian Aranda [facility] 06-16-2023 07:49-0500 Respiratory rate 14 /min Jillian Aranda [facility] 06-16-2023 07:49-0500 Systolic blood pressure 153 mm[Hg] Jillian Aranda [facility] 04-07-2023 08:16-0500 Diastolic blood pressure 86 mm[Hg] Jillian Aranda [facility] 04-07-2023 08:16-0500 Heart rate 64 /min Jillian Aranda [facility] 04-07-2023 08:16-0500 Mean blood pressure 106 mm[Hg] Jillian Aranda [facility] 04-07-2023 08:16-0500 Respiratory rate 14 /min Jillian Aranda [facility] 04-07-2023 08:16-0500 Systolic blood pressure 146 mm[Hg] Jillian Aranda [facility] 02-10-2023 09:27-0400 Diastolic blood pressure 85 mm[Hg] Jillian Aranda [facility] 02-10-2023 09:27-0400 Heart rate 61 /min Jillian Aranda [facility] 02-10-2023 09:27-0400 Mean blood pressure 105 mm[Hg] Jillian Aranda [facility] 02-10-2023 09:27-0400 Respiratory rate 16 /min Jillian Aranda [facility] 02-10-2023 09:27-0400 Systolic blood pressure 144 mm[Hg] Jillian Aranda [facility] 02-07-2023 11:47-0400 Diastolic blood pressure 90 mm[Hg] Beth Curt [facility] 02-07-2023 11:47-0400 Mean blood pressure 107 mm[Hg] Beth Curt [facility] 02-07-2023 11:47-0400 Systolic blood pressure 142 mm[Hg] Beth Curt [facility] 02-07-2023 10:58-0400 Blood Pressure Location Beth Curt [facility] 02-07-2023 10:58-0400 Body temperature 98.78 [degF] Beth Curt [facility] 02-07-2023 10:58-0400 Diastolic blood pressure 60 mm[Hg] Beth Curt [facility] 02-07-2023 10:58-0400 Heart rate 68 /min Beth Curt [facility] 02-07-2023 10:58-0400 Respiratory rate 16 /min Beth Curt [facility] 02-07-2023 10:58-0400 SaO2% (BldA) [Mass fraction] 95 % Beth Curt [facility] 02-07-2023 10:58-0400 Systolic blood pressure 150 mm[Hg] Beth Curt [facility] 01-18-2023 07:59-0400 Diastolic blood pressure 81 mm[Hg] Jillian Aranda [facility] 01-18-2023 07:59-0400 Heart rate 60 /min Jillian Nekst [facility] 01-18-2023 07:59-0400 Mean blood pressure 100 mm[Hg] Jilliandanielle Aradna [facility] 01-18-2023 07:59-0400 Respiratory rate 16 /min Jilliandanielle Aranda [facility] 01-18-2023 07:59-0400 Systolic blood pressure 137 mm[Hg] Jilliandanielle Aranda [facility] 11-11-2022 09:08-0400 Diastolic blood pressure 83 mm[Hg] Jilliandanielle Aranda [facility] 11-11-2022 09:08-0400 Heart rate 63 /min Jilliandanielle Aranda [facility] 11-11-2022 09:08-0400 Mean blood pressure 102 mm[Hg] Jilliandanielle Aranda [facility] 11-11-2022 09:08-0400 Respiratory rate 14 /min Jillian Aranda [facility] 11-11-2022 09:08-0400 Systolic blood pressure 139 mm[Hg] Jillian Aranda [facility] 10-14-2022 08:33-0400 Diastolic blood pressure 87 mm[Hg] Jilliandanielle Aranda [facility] 10-14-2022 08:33-0400 Heart rate 89 /min Jilliandanielle Aranda [facility] 10-14-2022 08:33-0400 Mean blood pressure 99 mm[Hg] Jillian Aranda [facility] 10-14-2022 08:33-0400 Systolic blood pressure 124 mm[Hg] Jillian Aranda [facility] 09-21-2022 14:27-0400 Heart rate 66 /min Marcel Olivares [facility] 09-21-2022 14:27-0400 SaO2% (BldA) [Mass fraction] 95 % Macrel Zumbar [facility] 09-21-2022 14:27-0400 Respiratory rate 16 /min Marcel Zumbar [facility] 09-21-2022 14:26-0400 Diastolic blood pressure 84 mm[Hg] Marcel Zumbar [facility] 09-21-2022 14:26-0400 Mean blood pressure 101 mm[Hg] Marcel Zumbar [facility] 09-21-2022 14:26-0400 Systolic blood pressure 134 mm[Hg] Marcel Zumbar [facility] 09-21-2022 14:17-0400 Diastolic blood pressure 94 mm[Hg] Marcel Zumbar [facility] 09-21-2022 14:17-0400 Heart rate 64 /min Marcel Zumbar [facility] 09-21-2022 14:17-0400 Respiratory rate 14 /min Marcel Zumbar [facility] 09-21-2022 14:17-0400 SaO2% (BldA) [Mass fraction] 98 % Marcel Zumbar [facility] 09-21-2022 14:17-0400 Systolic blood pressure 143 mm[Hg] Marcel Zumbar [facility] 09-21-2022 13:00-0400 Heart rate 70 /min Marcel Zumbar [facility] 09-21-2022 13:00-0400 SaO2% (BldA) [Mass fraction] 96 % Marcel Zumbar [facility] 09-21-2022 12:59-0400 Body temperature 97.52 [degF] Marcel Zumbar [facility] 09-21-2022 12:57-0400 Diastolic blood pressure 86 mm[Hg] Marcel Zumbar [facility] 09-21-2022 12:57-0400 Mean blood pressure 102 mm[Hg] Marcel Zumbar [facility] 09-21-2022 12:57-0400 Systolic blood pressure 133 mm[Hg] Marcel Zumbar [facility] 09-21-2022 12:55-0400 Respiratory rate 4 /min Marcel Zumbar [facility] 08-19-2022 10:53-0400 Diastolic blood pressure 65 mm[Hg] Jillian Aranda [facility] 08-19-2022 10:53-0400 Heart rate 73 /min Jillian Aranda [facility] 08-19-2022 10:53-0400 Mean blood pressure 79 mm[Hg] Jillian Aranda [facility] 08-19-2022 10:53-0400 Respiratory rate 14 /min Jillian Aranda [facility] 08-19-2022 10:53-0400 Systolic blood pressure 107 mm[Hg] Jillian Aranda [facility] 07-27-2022 13:40-0500 Heart rate 60 /min Marcel Olivares [facility] 07-27-2022 13:40-0500 SaO2% (BldA) [Mass fraction] 97 % Marcel Zumbar [facility] 07-27-2022 13:40-0500 Diastolic blood pressure 92 mm[Hg] Marcel Zumbar [facility] 07-27-2022 13:40-0500 Mean blood pressure 115 mm[Hg] Marcel Zumbar [facility] 07-27-2022 13:40-0500 Systolic blood pressure 162 mm[Hg] Marcel Zumbar [facility] 07-27-2022 13:35-0500 Heart rate 69 /min Marcel Zumbar [facility] 07-27-2022 13:35-0500 SaO2% (BldA) [Mass fraction] 97 % Marcel Zumbar [facility] 07-27-2022 13:35-0500 Diastolic blood pressure 122 mm[Hg] Marcel Zumbar [facility] 07-27-2022 13:35-0500 Mean blood pressure 136 mm[Hg] Marcel Zumbar [facility] 07-27-2022 13:35-0500 Systolic blood pressure 165 mm[Hg] Marcel Zumbar [facility] 07-27-2022 13:35-0500 Respiratory rate 20 /min Marcel Zumbar [facility] 07-27-2022 13:28-0500 Diastolic blood pressure 102 mm[Hg] Marcel Zumbar [facility] 07-27-2022 13:28-0500 Heart rate 67 /min Marcel Zumbar [facility] 07-27-2022 13:28-0500 Respiratory rate 14 /min Marcel Zumbar [facility] 07-27-2022 13:28-0500 SaO2% (BldA) [Mass fraction] 98 % Marcel Degrootar [facility] 07-27-2022 13:28-0500 Systolic blood pressure 166 mm[Hg] Marcel Srumbar [facility] 07-27-2022 12:25-0500 Mean blood pressure 112 mm[Hg] Marcel Degrootar [facility] 07-27-2022 12:25-0500 Body temperature 98.06 [degF] Marcel Olivares [facility] 07-27-2022 12:24-0500 Respiratory rate 12 /min Marcel Olivares [facility] 07-22-2022 13:55-0500 Blood Pressure Location Beth Curt [facility] 07-22-2022 13:55-0500 Diastolic blood pressure 62 mm[Hg] Beth Curt [facility] 07-22-2022 13:55-0500 Heart rate 92 /min Beth Curt [facility] 07-22-2022 13:55-0500 SaO2% (BldA) [Mass fraction] 95 % Beth Curt [facility] 07-22-2022 13:55-0500 Systolic blood pressure 116 mm[Hg] Beth Curt [facility] 06-10-2022 13:45-0500 Diastolic blood pressure 94 mm[Hg] Jillian Aranda [facility] 06-10-2022 13:45-0500 Heart rate 64 /min Jillian Aranda [facility] 06-10-2022 13:45-0500 Mean blood pressure 114 mm[Hg] Jillian Aranda [facility] 06-10-2022 13:45-0500 Systolic blood pressure 155 mm[Hg] Jillian Aranda [facility] 05-18-2022 10:00-0500 Diastolic blood pressure 72 mm[Hg] Beltran Izaguirre MD Work Phone: [facility] 05-18-2022 10:00-0500 Heart rate 92 /min Beltran Izaguirre MD Work Phone: [facility] 05-18-2022 10:00-0500 Respiratory rate 16 /min Beltran Izaguirre MD Work Phone: [facility] 05-18-2022 10:00-0500 SaO2% (BldA) [Mass fraction] 95 % Beltran Izaguirre MD Work Phone: [facility] [employer] 05-18-2022 10:00-0500 Systolic blood pressure 125 mm[Hg] Beltran Izaguirre MD Work Phone: [facility] [employer] 05-18-2022 09:30-0500 Body temperature 97.3 [degF] Beltran Izaguirre MD Work Phone: [facility] [employer] 05-18-2022 06:15-0500 Body height 175.3 cm Beltran Izaguirre MD Work Phone: [facility] [employer] 05-18-2022 06:15-0500 Body mass index (BMI) [Ratio] 23.63 kg/m2 Beltran Izaguirre MD Work Phone: [facility] [employer] 05-18-2022 06:15-0500 Body weight 72.58 kg Beltran Izaguirre MD Work Phone: [facility] [employer] 05-11-2022 15:21-0500 Heart rate 55 /min Marcel Olivares [facility] 05-11-2022 15:21-0500 SaO2% (BldA) [Mass fraction] 98 % Marcel Zumbar [facility] 05-11-2022 15:21-0500 Respiratory rate 20 /min Marcel Zumbar [facility] 05-11-2022 15:20-0500 Diastolic blood pressure 78 mm[Hg] Marcel Zumbar [facility] 05-11-2022 15:20-0500 Mean blood pressure 103 mm[Hg] Marcel Zumbar [facility] 05-11-2022 15:20-0500 Systolic blood pressure 154 mm[Hg] Marcel Zumbar [facility] 05-11-2022 15:17-0500 Diastolic blood pressure 91 mm[Hg] Marcel Zumbar [facility] 05-11-2022 15:17-0500 Systolic blood pressure 147 mm[Hg] Marcel Zumbar [facility] 05-11-2022 15:14-0500 Diastolic blood pressure 86 mm[Hg] Marcel Zumbar [facility] 05-11-2022 15:14-0500 Heart rate 58 /min Marcel Zumbar [facility] 05-11-2022 15:14-0500 Respiratory rate 16 /min Marcel Zumbar [facility] 05-11-2022 15:14-0500 SaO2% (BldA) [Mass fraction] 95 % Marcel Zumbar [facility] 05-11-2022 15:14-0500 Systolic blood pressure 171 mm[Hg] Marcel Zumbar [facility] 05-11-2022 14:21-0500 Heart rate 61 /min Marcel Zumbar [facility] 05-11-2022 14:21-0500 SaO2% (BldA) [Mass fraction] 98 % Marcel Zumbar [facility] 05-11-2022 14:09-0500 Mean blood pressure 101 mm[Hg] Marcel Zumbar [facility] 05-11-2022 14:08-0500 Body temperature 97.52 [degF] Marcel Zumbar [facility] 05-11-2022 14:06-0500 Respiratory rate 15 /min Marcel Zumbar [facility] 04-27-2022 08:05-0500 Diastolic blood pressure 82 mm[Hg] Marcel Zumbar [facility] 04-27-2022 08:05-0500 Heart rate 55 /min Marcel Zumbar [facility] 04-27-2022 08:05-0500 Mean blood pressure 100 mm[Hg] Marcel Zumbar [facility] 04-27-2022 08:05-0500 Systolic blood pressure 135 mm[Hg] Marcel Zumbar [facility] 04-05-2022 08:23-0500 Blood Pressure Location Iftikhar NILL [facility] [place] 04-05-2022 08:23-0500 Diastolic blood pressure 100 mm[Hg] Iftikhar NILL [facility] [place] 04-05-2022 08:23-0500 Heart rate 67 /min Iftikhar NILL [facility] [place] 04-05-2022 08:23-0500 Respiratory rate 16 /min Iftikhar FREY [facility] [place] 04-05-2022 08:23-0500 Systolic blood pressure 170 mm[Hg] Iftikhar FREY [facility] [place] 03-17-2022 13:05-0400 Diastolic blood pressure 88 mm[Hg] Christopher BROWN [facility] 03-17-2022 13:05-0400 Mean blood pressure 105 mm[Hg] Christopher BROWN [facility] 03-17-2022 13:05-0400 Systolic blood pressure 138 mm[Hg] Christopher BROWN [facility] 03-17-2022 08:25-0400 Blood Pressure Location Christopher BROWN [facility] 03-17-2022 08:25-0400 Body temperature 98.42 [degF] Christopher BROWN [facility] 03-17-2022 08:25-0400 Diastolic blood pressure 84 mm[Hg] Christopher BROWN [facility] 03-17-2022 08:25-0400 Heart rate 77 /min Christopher BROWN [facility] 03-17-2022 08:25-0400 Respiratory rate 16 /min Christopher BROWN [facility] 03-17-2022 08:25-0400 SaO2% (BldA) [Mass fraction] 94 % Christopher BROWN [facility] 03-17-2022 08:25-0400 Systolic blood pressure 170 mm[Hg] Guille NIXON [facility] 03-04-2022 08:05-0400 Diastolic blood pressure 94 mm[Hg] Jillian Aranda [facility] 03-04-2022 08:05-0400 Heart rate 65 /min Jillian Aranda [facility] 03-04-2022 08:05-0400 Mean blood pressure 117 mm[Hg] Jillian Aranda [facility] 03-04-2022 08:05-0400 Respiratory rate 14 /min Jillian Aranda [facility] 03-04-2022 08:05-0400 Systolic blood pressure 164 mm[Hg] Jillian Aranda [facility] 02-02-2022 08:46-0400 Diastolic blood pressure 87 mm[Hg] Marcel Zumbar [facility] 02-02-2022 08:46-0400 Heart rate 62 /min Marcel Zumbar [facility] 02-02-2022 08:46-0400 Mean blood pressure 107 mm[Hg] Marcel Zumbar [facility] 02-02-2022 08:46-0400 SaO2% (BldA) [Mass fraction] 97 % Marcel Zumbar [facility] 02-02-2022 08:46-0400 Systolic blood pressure 148 mm[Hg] Marcel Zumbar [facility] 02-02-2022 08:46-0400 Respiratory rate 16 /min Marcel Zumbar [facility] [facility] 02-02-2022 08:39-0400 Diastolic blood pressure 98 mm[Hg] Marcel Zumbar [facility] 02-02-2022 08:39-0400 Heart rate 61 /min Marcel Zumbar [facility] 02-02-2022 08:39-0400 Respiratory rate 16 /min Marcel Zumbar [facility] 02-02-2022 08:39-0400 SaO2% (BldA) [Mass fraction] 96 % Marcel Zumbar [facility] 02-02-2022 08:39-0400 Systolic blood pressure 171 mm[Hg] Marcel Zumbar [facility] 02-02-2022 07:34-0400 Body temperature 97.88 [degF] Marcel Zumbar [facility] 02-02-2022 07:34-0400 Diastolic blood pressure 88 mm[Hg] Marcel Zumbar [facility] 02-02-2022 07:34-0400 Heart rate 64 /min Marcel Zumbar [facility] 02-02-2022 07:34-0400 Mean blood pressure 112 mm[Hg] Marcel Zumbar [facility] 02-02-2022 07:34-0400 Respiratory rate 16 /min Marcel Zumbar [facility] 02-02-2022 07:34-0400 SaO2% (BldA) [Mass fraction] 95 % Marcel Zumbar [facility] 02-02-2022 07:34-0400 Systolic blood pressure 160 mm[Hg] Marcel Zumbar [facility] 12-27-2021 12:42-0400 Diastolic blood pressure 67 mm[Hg] Jillian Aranda [facility] 12-27-2021 12:42-0400 Heart rate 81 /min Jillian Aranda [facility] 12-27-2021 12:42-0400 Mean blood pressure 81 mm[Hg] Jillian Aranda [facility] 12-27-2021 12:42-0400 Respiratory rate 12 /min Jillian Aranda [facility] 12-27-2021 12:42-0400 Systolic blood pressure 108 mm[Hg] Jillian Aranda [facility] 09-22-2021 13:41-0400 Body height 175.3 cm Amilcar Yan MD Work Phone: [facility] 09-22-2021 13:41-0400 Body weight 81.65 kg Amilcar Yan MD Work Phone: [facility] 09-15-2021 15:10-0400 Blood Pressure Location Magalie DONNAMILLER [facility] [place] 09-15-2021 15:10-0400 Body temperature 97.7 [degF] Magalie DONNAMILLER [facility] [place] 09-15-2021 15:10-0400 Diastolic blood pressure 78 mm[Hg] Magalie DONNAMILLER [facility] [place] 09-15-2021 15:10-0400 Heart rate 70 /min Magalie DONNAMILLER [facility] [place] 09-15-2021 15:10-0400 Respiratory rate 16 /min Magalie ERICKSONR [facility] [place] 09-15-2021 15:10-0400 SaO2% (BldA) [Mass fraction] 96 % Magalie BENTLEYILLER [facility] [place] 09-15-2021 15:10-0400 Systolic blood pressure 124 mm[Hg] Magalie ERICKSONR [facility] [place] 01-15-2021 08:00-0400 Body temperature 98.1 [degF] Neftali Galvin MD Work Phone: [employer] Work Phone: 01-15-2021 08:00-0400 Diastolic blood pressure 81 mm[Hg] Neftali Galvin MD Work Phone: [employer] Work Phone: 01-15-2021 08:00-0400 Heart rate 66 /min Neftali Galvin MD Work Phone: [employer] Work Phone: 01-15-2021 08:00-0400 Respiratory rate 16 /min Neftali Galvin MD Work Phone: [employer] Work Phone: 01-15-2021 08:00-0400 SaO2% (BldA) [Mass fraction] 98 % Neftali Galvin MD Work Phone: [employer] Work Phone: 01-15-2021 08:00-0400 Systolic blood pressure 162 mm[Hg] Neftali Galvin MD Work Phone: [employer] Work Phone: 01-15-2021 06:00-0400 Body mass index (BMI) [Ratio] 24.9 kg/m2 Neftali Galvin MD Work Phone: [employer] Work Phone: 01-15-2021 06:00-0400 Body weight 76.48 kg Neftali Galvin MD Work Phone: [employer] Work Phone: 01-12-2021 23:29-0400 Body height 175.3 cm Neftali Galvin MD Work Phone: [employer] Work Phone: 01-12-2021 18:59-0400 Diastolic blood pressure 76 mm[Hg] Shanel Fritz MD Work Phone: [employer] Work Phone: 01-12-2021 18:59-0400 SaO2% (BldA) [Mass fraction] 91 % Shanel Fritz MD Work Phone: [employer] Work Phone: 01-12-2021 18:59-0400 Systolic blood pressure 146 mm[Hg] Shanel Fritz MD Work Phone: [employer] Work Phone: 01-12-2021 14:35-0400 Heart rate 85 /min Shanel Fritz MD Work Phone: [employer] Work Phone: 01-12-2021 14:35-0400 Respiratory rate 22 /min Shanel Fritz MD Work Phone: [employer] Work Phone: 01-12-2021 08:46-0400 Body temperature 98.71 [degF] Shanel Fritz MD Work Phone: [employer] Work Phone: 01-12-2021 08:43-0400 Body height 175.3 cm Shanel Fritz MD Work Phone: [employer] Work Phone: 01-12-2021 08:43-0400 Body mass index (BMI) [Ratio] 23.63 kg/m2 Shanel Fritz MD Work Phone: [employer] Work Phone: 01-12-2021 08:43-0400 Body weight 72.58 kg Shanel Fritz MD Work Phone: [employer] Work Phone: 06-18-2020 11:30-0500 BP Diastolic 73 mm[Hg] [facility] westPrimo.io [facility] [place] 06-18-2020 11:30-0500 BP Systolic 149 mm[Hg] [facility] [employer] [facility] 06-18-2020 11:30-0500 Pulse (Heart Rate) 63 /min [facility] 06-18-2020 11:30-0500 Pulse Oximetry 97 % [facility]FREECULTRreg[facility] hospital clevel[facility] westAvrio Solutions Company LimitedFreeman [facility], [place] 06-18-2020 11:30-0500 Respiratory Rate 16 /min [facility] [place] 06-18-2020 10:30-0500 Body Temperature 97.5 [degF] [facility]RE[facility]ULTRreg[facility] west2Duche [facility] Hospital[facility]chet[facility] [place] 06-18-2020 07:30-0500 BMI (Body Mass Index) 23.48 kg/m2 [facility]FREECULTRreg[facility] hospital cle[facility] westAvrio Solutions Company LimitedBART[facility] [place] 06-18-2020 07:30-0500 Body weight 72.12 kg [facility] [place] 06-18-2020 07:30-0500 Height 175.3 cm [facility]Street[facility] [place] 06-05-2020 09:00-0500 BP Diastolic 82 mm[Hg] [facility] [place] 06-05-2020 09:00-0500 BP Systolic 174 mm[Hg] [facility] [place] 06-05-2020 09:00-0500 Pulse (Heart Rate) 66 /min [facility] 06-05-2020 09:00-0500 Pulse Oximetry 94 % [facility] [place], [place] 06-05-2020 09:00-0500 Respiratory Rate 18 /min [facility], [place] 06-05-2020 08:30-0500 Body Temperature 98.2 [degF] [facility] 06-05-2020 06:31-0500 BMI (Body Mass Index) 23.63 kg/m2 [facility] 06-05-2020 06:31-0500 Body weight 72.58 kg [facility] [place] 06-05-2020 06:31-0500 Height 175.3 cm [facility] [place] 06-04-2020 18:03-0500 BP Diastolic 86 mm[Hg] [facility] 06-04-2020 18:03-0500 BP Systolic 156 mm[Hg] [facility] 06-04-2020 18:03-0500 Pulse Oximetry 95 % [facility] 06-04-2020 15:00-0500 Body Temperature 98.71 [degF] [facility] 06-04-2020 14:58-0500 BMI (Body Mass Index) 24.03 kg/m2 [facility] 06-04-2020 14:58-0500 Body weight 75.98 kg [facility] 06-04-2020 14:58-0500 Height 177.8 cm [facility] 06-04-2020 14:58-0500 Pulse (Heart Rate) 79 /min [facility], [place] 06-04-2020 14:58-0500 Respiratory Rate 18 /min [facility] Encounters Encounter Date Encounter Type Care Provider Facility Start: 08-02-2024 ambulatory Beth Cabezas y:RAVIN Nye Start: 02-28-2024 End: 02-28-2024 ambulatory Mirian Ugarte Facility:[facility] Start: 02-28-2024 End: 02-28-2024 Patient encounter procedure Mirian Ugarte [facility] Start: 02-26-2024 End: 02-26-2024 ambulatory Erum Ye MD Facility:[facility] Start: 02-21-2024 End: 02-21-2024 ambulatory BELTRAN [facility] Start: 02-02-2024 End: 02-02-2024 ambulatory Beth Elias Facility:[facility] Start: 01-01-2024 End: 01-01-2024 ambulatory EMILY Aranda Facility:[facility] Start: 01-01-2024 End: 01-01-2024 Pain Management Jillian Aranda [facility] Start: 12-27-2023 End: 12-27-2023 ambulatory Cresencio Andrade Facility:[facility] Start: 12-27-2023 End: 12-27-2023 Pain Management Cresencio Andrade [facility] Start: 09-13-2023 End: 09-16-2023 [facility]ulatory [facility] Start: 09-07-2023 End: 09-07-2023 ambulatory Cresencio Andrade Facility:[facility] Start: 09-07-2023 End: 09-07-2023 Pain Management Cresencio Andrade [facility] Start: 08-02-2023 End: 08-02-2023 ambulatory Cresencio Andrade Facility:[facility] Start: 08-02-2023 End: 08-02-2023 Pain Management Cresencio Andrade [facility] Start: 08-01-2023 End: 08-01-2023 Lab Drop off Beth Elias [facility] Start: 08-01-2023 End: 08-01-2023 ambulatory Beth Elias Facility:[facility] Start: 08-01-2023 End: 08-01-2023 Patient encounter procedure Beth Elias [facility] [place] Start: 06-16-2023 End: 06-16-2023 ambulatory Beth Elias Facility:[facility] Start: 06-16-2023 End: 06-16-2023 Pain Management Jillian Aranda [facility] Start: 05-02-2023 End: 05-02-2023 ambulatory Ivis Bella Facility:[facility] Start: 04-07-2023 End: 04-07-2023 ambulatory Beth Elias Facility:[facility] Start: 04-07-2023 End: 04-07-2023 Pain Management Jillian Aranda [facility] Start: 03-21-2023 End: 03-21-2023 ambulatory Lion Beckman Facility:[facility] Start: 02-10-2023 End: 02-10-2023 Pain Management Jillian Aranda [facility] Start: 02-07-2023 End: 02-07-2023 Patient encounter procedure Beth Elias [facility] [place] Start: 01-19-2023 Telephone encounter Amilcar madrid MD Work Phone: [facility] Comment on above: Refill Request (Plet al) Start: 01-18-2023 End: 01-18-2023 Pain Management Jillian Aranda [facility] Start: 01-10-2023 End: 01-12-2023 Subsequent hospital visit by physician Amilcar Yan MD Work Phone: [facility] Ultrasound Comment on above: Aneurysm of infraren al abdominal aorta, unspecified whether ruptured (HCC) Start: 11-11-2022 End: 11-11-2022 Pain Management Jillian Aranda [facility] Start: 10-24-2022 Telephone encounter Amilcar madrid MD Work Phone: [facility] Comment on above: Medication Assistanc e (Patient out of Pletal, requesting new Rx ) Start: 10-14-2022 End: 10-14-2022 Pain Management Jillian Aranda [facility] Start: 09-21-2022 End: 09-21-2022 Pain Management Marcel Elise [facility] Start: 08-23-2022 Chart abstracting Amilcar Lam cia, MD Work Phone: [facility] Comment on above: Abstract Start: 08-19-2022 End: 08-19-2022 Pain Management Jillian Aranda [facility] Start: 08-08-2022 End: 08-10-2022 Subsequent hospital visit by physician Luis Ultrasound 1 [facility] Ultrasound Comment on above: 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) Infrarenal abdominal aortic aneurysm (AAA) without rupture Start: 07-27-2022 End: 07-27-2022 Pain Management Marcel Zumbar [facility] Start: 07-22-2022 End: 07-22-2022 Patient encounter procedure Beth BurdickShaun Elias [facility] [place] Start: 06-10-2022 End: 06-10-2022 Pain Management Jillian Aranda [facility] Start: 05-18-2022 End: 05-18-2022 Subsequent hospital visit by physician Beltran Izaguirre MD Work Phone: [facility] Comment on above: Colon cancer screeni ng Start: 05-11-2022 End: 05-11-2022 Pain Management Marcel Olivares [facility] Start: 04-29-2022 End: 04-29-2022 Patient encounter procedure Marcel Olivares [facility] Start: 04-27-2022 End: 04-27-2022 Pain Management Marcel Olivares [facility] Start: 04-05-2022 End: 04-05-2022 Patient encounter procedure Iftikhar FREY [facility] [place] Start: 03-17-2022 End: 03-17-2022 Lab Drop off Guille ALICEA [facility] Start: 03-17-2022 End: 03-17-2022 Patient encounter procedure Guille ALICEA [facility] [place] Start: 03-04-2022 End: 03-04-2022 Pain Management Jillian Aranda [facility] Start: 02-24-2022 End: 02-26-2022 Subsequent hospital visit by physician Luis Romero 2 [facility] Ultrasound Comment on above: Bilateral carotid br uits Start: 02-02-2022 End: 02-02-2022 Pain Management Marcel Olivares [facility] Start: 12-27-2021 End: 12-27-2021 Pain Management Jillian Aranda [facility] Start: 09-15-2021 End: 09-15-2021 Patient encounter procedure Magalie BENTLEYYUMIKO [facility] [place] Start: 09-13-2021 End: 09-15-2021 Subsequent hospital visit by physician Luis Ultrasound 2 [facility] Ultrasound Comment on above: Abdominal aortic ane urysm without rupture (HCC) 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) Start: 07-28-2021 End: 07-30-2021 Subsequent hospital visit by physician Hellen Additional Xray At [facility] Radiology Comment on above: Kidney stones Start: 05-05-2021 End: 05-07-2021 Subsequent hospital visit by physician Smith Nuclear Medicine Room 3 [facility] Nuclear Medicine Comment on above: Arrived Start: 02-08-2021 End: 02-10-2021 Subsequent hospital visit by physician Smith Ct Room 1 [facility] CT Scan Comment on above: Abscess Start: 02-08-2021 End: 02-10-2021 Admission to establishment Rome Brock MD Work Phone: [facility]tras[facility] Start: 02-08-2021 End: 02-10-2021 Subsequent hospital visit by physician Rome Brock MD Work Phone: [facility]tras[facility] Comment on above: Colonic diverticular abscess; Encounter for preadmission testing; Abscess Start: 01-12-2021 End: 01-15-2021 Evaluation and management of inpatient SHANEL FRITZ [facility] Start: 01-12-2021 End: 01-15-2021 Evaluation and management of inpatient Neftali Galvin MD Work Phone: [facility]Med Surg Start: 01-12-2021 End: 01-12-2021 Emergency department patient visit Shanel Fritz MD Work Phone: [facility] ED Comment on above: Colonic diverticular abscess (Primary Dx) Start: 06-18-2020 End: 06-18-2020 Patient encounter procedure [facility] Start: 06-18-2020 End: 06-18-2020 Subsequent hospital visit by physician Ankita Mendez Work Phone: [facility] Start: 06-11-2020 End: 06-11-2020 Subsequent hospital visit by physician [facility] Covid19 Pat Screening Schedule [facility] PRE ADMIT Comment on above: Arrived Start: 06-05-2020 End: 06-05-2020 Patient encounter procedure [facility] Start: 06-05-2020 End: 06-05-2020 Subsequent hospital visit by physician Ankita Mendez Work Phone: [facility] Comment on above: Kidney stone Start: 06-04-2020 End: 06-04-2020 Emergency department patient visit Guille Brasher Work Phone: [facility] ED Comment on above: Left renal stone (Pr imary Dx); Abdominal aortic aneurysm (AAA) without rupture (HCC) Start: 10-19-2016 End: 10-19-2016 Ambulatory [facility] Facility:[facility]1 Procedures Date Procedure Procedure Detail Performing Clinician Start: 12-27-2023 Injection of facet j oint using fluoroscopic guidance Jillian Aranda Comment on above: b/l l4-s1 mbb 100% r elief for 4 hours Start: 08-02-2023 Epidural injection o f lumbar spine using fluoroscopic guidance Cresencio Andrade Comment on above: 75% relief Start: 03-21-2023 Epidural injection o f lumbar spine using fluoroscopic guidance [employer] Comment on above: 65% relief Start: 09-21-2022 Structure of pirifor mis muscle (body structure) [employer] Comment on above: Bilateral piriformis injection- 80% relief for 2 days, returned after Start: 07-27-2022 Injection of facet j oint using fluoroscopic guidance [employer] Comment on above: S1-S3 100% relief fo r few hours Start: 05-18-2022 End: 05-18-2022 Colonoscopy Beltran Izaguirre MD Work Phone: Start: 05-11-2022 Injection of sacroil iac joint using fluoroscopic guidance [employer] Comment on above: b/l sij 90% relief f or 2 weeks, back to baseline Start: 02-24-2022 Duplex scan extracra nial art compl bi study Laci Dominique MD Work Phone: Start: 02-02-2022 Injection of nerve r oot of lumbar spine using fluoroscopic guidance [employer] Comment on above: BL S1 TFESI 10% Reli ef Start: 07-28-2021 Radiologic exam abdo men 1 view Anders Santiago PA-C Work Phone: Start: 07-28-2021 Injection of nerve r oot of lumbar spine using fluoroscopic guidance Magalie HENNING Comment on above: S1-75% relief S1-75% relief Start: 06-04-2021 Placement of stent Rodolfo HENNING Comment on above: Aortic aneurysm Aortic aneurysm Start: 02-08-2021 Ct abdomen & pelvis w/contrast material Rome Brock MD Work Phone: Start: 02-08-2021 Us transrectal Flaco Quan ELECTRIC NEEDLE SPECIALIST - REACTOR SERVICE OPERATOR Work Phone: Start: 01-15-2021 Basic metabolic pane l calcium total Rome Richards DO Work Phone: Start: 01-14-2021 Blood count complete auto&auto difrntl wbc Lidia Whitney MD Work Phone: Start: 01-13-2021 End: 01-13-2021 Cul bact xcpt urine blood/stool aerobic isol Kendall Thomason MD Work Phone: Start: 01-13-2021 Cath, drainage Lidia Aguilar MD Work Phone: Start: 01-13-2021 Prothrombin time Lidia Whitney MD Work Phone: Start: 01-13-2021 Assay of magnesium Colt roldan Banuelos ELECTRIC NEEDLE SPECIALIST - REACTOR SERVICE OPERATOR Work Phone: Start: 01-12-2021 Urinalysis microscopic only Shanel Fritz MD Work Phone: Start: 01-12-2021 Urnls dip stick/tabl et rgnt auto w/o microscopy Shanel Fritz MD Work Phone: Start: 01-12-2021 Ct abdomen & pelvis w/contrast material Shanel Fritz MD Work Phone: Start: 01-12-2021 Assay of lipase Shanel turk MD Work Phone: Start: 01-12-2021 Lactate [Moles/volum e] in Serum or Plasma Shanel Fritz MD Work Phone: Start: 01-06-2021 Diverticulitis (disorder) Magalie [employer] Comment on above: Has drain tube in pl triny right lower buttocks area. Has drain tube in pl triny right lower buttocks area. Start: 11-09-2020 Lumbosacral myelography Magalie HENNING Start: 09-30-2020 Epidural injection o f lumbar spine using fluoroscopic guidance Magaliecallie HENNING Comment on above: L5-S1 10% improvment for 2 days L5-S1 10% improvment for 2 days Start: 07-08-2020 Injection of nerve r oot of lumbar spine using fluoroscopic guidance [employer] Comment on above: 25% relief - did not help pain going down his leg 25% relief - did not help pain going down his leg Start: 06-05-2020 Fluoroscopy during operation Ankita Mendez Work Phone: Start: 06-05-2020 Ecg routine ecg w/le ast 12 lds w/i&r Ankita Mendez Work Phone: Start: 06-04-2020 COVID-19 Sebastian Brasher Work Phone: Start: 06-04-2020 Ct abdomen & pelvis w/contrast material Guille Brasher Work Phone: Start: 06-04-2020 Ct abdomen & pelvis w/o contrast material Guille Brasher Work Phone: Start: 06-04-2020 Urinalysis microscopic only Guille Brasher Work Phone: Start: 06-04-2020 Urnls dip stick/tabl et rgnt auto w/o microscopy Guille Brasher Work Phone: Start: 06-04-2020 BASIC METABOLIC PANE L W/ REFLEX TO MG FOR LOW K Guille Brasher Work Phone: Start: 06-04-2020 Blood count complete auto&auto difrntl wbc Guille Brasher Work Phone: Start: 11-13-2019 Epidural steroid injection [employer] Comment on above: bilat L5 TFESI- 80% relief at time of OV bilat L5 TFESI- 80% relief at time of OV Start: 06-19-2019 Injection of nerve r oot of lumbar spine using fluoroscopic guidance [employer] Start: 09-26-2018 transforaminal epidu ral steroid injection 10 Jillian Nekst Comment on above: L4-L5 TFESI 50% reli ef to present Start: 09-26-2018 transforaminal epidu ral steroid injection 11 Jillian Nekst Comment on above: L4-L5 TFESI 50% reli ef to present Start: 09-26-2018 transforaminal epidu ral steroid injection 12 Jillian Nekst Comment on above: L4-L5 TFESI 50% reli ef to present Start: 09-26-2018 transforaminal epidu ral steroid injection 13 Cresencio Andrade Comment on above: L4-L5 TFESI 50% reli ef to present Start: 09-26-2018 transforaminal epidu ral steroid injection 14 Jillian Nekst Comment on above: L4-L5 TFESI 50% reli ef to present Start: 09-26-2018 transforaminal epidu ral steroid injection 7 Magalie MARLIN Comment on above: L4-L5 TFESI 50% reli ef to present L4-L5 TFESI 50% reli ef to present Start: 09-26-2018 transforaminal epidu ral steroid injection 8 Jillian Nekst Comment on above: L4-L5 TFESI 50% reli ef to present Start: 09-26-2018 transforaminal epidu ral steroid injection 9 Bazine Nekst Comment on above: L4-L5 TFESI 50% reli ef to present Start: 09-05-2018 Transforaminal Epidu ral Steroid Injection 10 Jillian Nekst Comment on above: Left L4-5 95% pain r elief Start: 09-05-2018 Transforaminal Epidu ral Steroid Injection 11 Jillian Nekst Comment on above: Left L4-5 95% pain r elief Start: 09-05-2018 Transforaminal Epidu ral Steroid Injection 12 Bazine Nekst Comment on above: Left L4-5 95% pain r elief Start: 09-05-2018 Transforaminal Epidu ral Steroid Injection 13 Jillian Nekst Comment on above: Left L4-5 95% pain r elief Start: 09-05-2018 Transforaminal Epidu ral Steroid Injection 14 Cresencio Andrade Comment on above: Left L4-5 95% pain r elief Start: 09-05-2018 Transforaminal Epidu ral Steroid Injection 15 Jillian Nekst Comment on above: Left L4-5 95% pain r elief Start: 09-05-2018 Transforaminal Epidu ral Steroid Injection 8 [employer] Comment on above: Left L4-5 95% pain r elief Left L4-5 95% pain r elief Start: 09-05-2018 Transforaminal Epidu ral Steroid Injection 9 [employer] Comment on above: Left L4-5 95% pain r elief Abdominal aortic ane urysm (disorder) [facility] Colonoscopy abnormal (finding) Mirian Vanaracelis Comment on above: [facility] (disorder) [facility] Hernia of abdominal cavity (disorder) [facility] [employer] [facility] Comment on above: right inguinal herni a repair on 10/19/2016 hernia bilateral 1980 right inguinal herni a repair on 10/19/2016 hernia bilateral 1980 Lipoma removed from left flank area 10 [employer] Comment on above: 1998 1998 Lipoma removed from left flank area 11 [employer] Comment on above: 1998 Lipoma removed from left flank area 12 [employer] Comment on above: 1998 Lipoma removed from left flank area 13 [employer] Comment on above: 1998 Lipoma removed from left flank area 14 [employer] Comment on above: 1998 Lipoma removed from left flank area 15 Jillian Aranda Comment on above: 1998 Lipoma removed from left flank area 16 Cresencio Andrade Comment on above: 1998 Lipoma removed from left flank area 17 Jillian Aranda Comment on above: 1998 Lipoma removed from left flank area 18 Mirian Ugarte Comment on above: 1998 transforaminal epidu ral steroid injection 11 Magalie HENNING Comment on above: BL L5 0% relief BL L5 0% relief transforaminal epidu ral steroid injection 12 Jillian Nekst Comment on above: BL L5 0% relief transforaminal epidu ral steroid injection 13 Jillian Nekst Comment on above: BL L5 0% relief transforaminal epidu ral steroid injection 14 Jillian Nekst Comment on above: BL L5 0% relief transforaminal epidu ral steroid injection 15 Jillian Nekst Comment on above: BL L5 0% relief transforaminal epidu ral steroid injection 16 Jillian Nekst Comment on above: BL L5 0% relief transforaminal epidu ral steroid injection 17 Cresencio Andrade Comment on above: BL L5 0% relief transforaminal epidu ral steroid injection 18 Jillian Nekst Comment on above: BL L5 0% relief transforaminal epidu ral steroid injection 19 Mirian Ugarte Comment on above: BL L5 0% relief Plan of Treatment Date Care Activity Detail Author Start: 05-18-2032 Screening for malign ant neoplasm of colon [facility] Start: 08-22-2031 DTaP/Tdap/Td vaccine (3 - Td or Tdap) DTaP/Tdap/Td vaccine (3 - Td or Tdap) [facility] Start: 03-24-2027 DTaP/Tdap/Td vaccine (2 - Td or Tdap) DTaP/Tdap/Td vaccine (2 - Td or Tdap) [facility] Start: 08-17-2023 End: 08-17-2023 Patient encounter procedure 08/17/2023 Office Visit Urology Anders Santiago PA-C [address] [place] [address] [facility] Start: 01-20-2023 Influenza vaccination [facility] Start: 12-20-2022 Influenza vaccination Flu vaccine (# 1) [facility] Start: 08-04-2022 End: 08-04-2022 Patient encounter procedure 08/04/2022 Office Visit Urology Anders Santiago PA-C [address] [facility] [address] [facility] Start: 06-13-2022 End: 06-13-2022 Patient encounter procedure 06/13/2022 Office Visit Cardiology Laci Dominique MD [address] [address] [facility] Start: 05-22-2022 DEPRESSION ASSESSMENT DEPRESSION ASS [facility] Start: 05-18-2022 End: 05-18-2022 Colon ca scrn not hi rsk ind COLORECTAL CANCER SCREENING, NOT HIGH RISK Colon cancer screening 05/18/2022 8:09 AM EST [facility] Start: 05-13-2022 End: 05-13-2022 Patient encounter procedure 05/13/2022 [place] [address] [place] [address] [address] [place] [address] [facility] Start: 01-20-2022 Influenza vaccination Flu vacc ine (Season Ended) [facility] Start: 12-20-2021 Influenza vaccination Flu vaccine (# 1) [facility] Start: 11-15-2021 End: 11-15-2021 Patient encounter procedure 11/15/2021 Office Visit Cardiology Laci Dominique MD [address] [place] [address] [facility] Start: 08-09-2021 End: 08-09-2021 Patient encounter procedure 08/09/2021 Office Visit Cardiology Laci Dominique MD [address] [place] [address] [facility] Start: 07-29-2021 End: 07-29-2021 Patient encounter procedure [facility] Start: 05-10-2021 End: 05-10-2021 Patient encounter procedure 05/10/2021 Office Visit Cardiology Laci Dominique MD [address] [place] [address] [facility] Start: 03-06-2021 COVID-19 Vaccine (3 - Booster for Pfizer series) COVID-19 Vaccine (3 - Booster for Pfizer series) [facility] Start: 02-23-2021 End: 02-23-2021 Patient encounter procedure 02/23/2021 Office Visit Radiology Flaco Quan, ELECTRIC NEEDLE SPECIALIST - REACTOR SERVICE OPERATOR [address] [place] [address] [phone] [facility] Start: 02-04-2021 COVID-19 Vaccine (3 - Booster for Pfizer series) COVID-19 Vaccine (3 - Booster for Pfizer series) [facility] Start: 01-20-2021 Influenza vaccination Flu vaccine (# 1) [facility] Start: 10-30-2020 COVID-19 Vaccine (3 - Booster for Pfizer series) COVID-19 Vaccine (3 - Booster for Pfizer series) [facility] Start: 10-30-2020 COVID-19 VACCINE (3 - Pfizer series) COVID-19 VACCINE (3 - Pfizer series) [facility] Start: 06-25-2020 End: 06-25-2020 Office Visit 06/25/2020 Office Visit Urology Anders Santiago PA-C [address] [place] [address] [phone] [facility] [place] Start: 06-18-2020 End: 06-18-2020 Hospital Encounter [facility] Comment on above: CYSTOSCOPY URETEROSC OPY LASER-WITH HLL Start: 06-05-2020 End: 06-05-2020 Hospital Encounter [facility] Comment on above: CYSTOSCOPY STENT INS ERTION Start: 01-21-2020 Influenza vaccination Flu vaccine (# 1) [place] Start: 08-23-2019 Lipid panel Lipid screen [facility] Work Phone: Start: 08-23-2015 Lipid panel [facility] Start: 09-30-2014 PROSTATE CANCER SCREENING DISCUSSION PROSTATE CANCER SCREENING DISCUSSION [facility] Start: 09-30-2009 Influenza vaccination LUNG CANCER SC REENING [facility] Start: 09-30-2009 Screening for malign ant neoplasm of colon Colon cancer screen colonoscopy [place], [place] Start: 09-30-2009 Screening for malign ant neoplasm of lung [facility] Start: 09-30-2009 Shingles Vaccine (1 of 2) Shingles Vaccine (1 of 2) [facility] Start: 09-30-2009 SHINGRIX VACCINE (1 of 2) SHINGRIX VACCINE (1 of 2) [facility] Start: 09-30-2004 COLOGUARD (FIT-DNA) COLOGUARD (FIT-D NA) [facility] Start: 09-30-2004 Colonoscopy COLONOSCOPY [facility] Start: 09-30-2004 COLORECTAL CANCER SCREENING COLORECTAL CANCER SCREENING [facility] Start: 09-30-[address] COLONOGRAPHY [facility] Start: 09-30-2004 DIABETES SCREEN DIABETES SCREEN [facility] Start: 09-30-2004 FECAL OCCULT BLOOD FECAL OCCULT BLOO D [facility] Start: 09-30-2004 Screening for malign ant neoplasm of colon [facility] Start: 09-30-2004 SIGMOIDOSCOPY [facility]COPY [facility] Start: 09-30-1994 Diabetes screen Diabetes screen [facility] Start: 09-30-1994 LIPID SCREEN LIPID SCREEN [facility] Start: 09-30-1978 DTaP/Tdap/Td vaccine (1 - Tdap) DTaP/Tdap/Td vaccine (1 - Tdap) [place] Start: 09-30-1978 Urine microalbumin profile DTAP,TDAP,TD (1 - Tdap) [facility] Start: 09-30-1977 Hepatitis C screening Hepatitis C [facility] Start: 09-30-1977 HEPATITIS C SCREENING HEPATITIS C [facility] Start: 09-30-1977 HIV SCREENING HIV SCREENING [facility] Start: 09-30-1974 HIV screening HIV screen [facility] Start: 1971 Depression Screen Depression Screen [facility] Start: 09-30-1965 PNEUMOCOCCAL (1 - PCV) PNEUMOCOCCAL (1 - PCV) [facility] Start: 09-30-1965 Pneumococcal 0-64 ye ars Vaccine (1 - PCV) Pneumococcal 0-64 years Vaccine (1 - PCV) [facility] Start: 09-30-1965 Pneumococcal 0-64 ye ars Vaccine (1 of 1 - PPSV23) Pneumococcal 0-64 years Vaccine (1 of 1 - PPSV23) [place] Start: 09-30-1965 Pneumococcal 0-64 ye ars Vaccine (1 of 2 - PPSV23) Pneumococcal 0-64 years Vaccine (1 of 2 - PPSV23) [facility] Start: 04-02-1960 COVID-19 VACCINE (#1) COVID-19 VACCI NE (#1) [facility] Start: 1959 Hepatitis C screening Hepatitis C [facility] End: 01-12-2021 Blood Occult Stool Screen #1 Blood Occult Stool Screen #1 Lab Routine One Time for 1 Occurrences starting 01/12/2021 until 01/12/2021 [facility] Work Phone: Comment on above: One Time for 1 Occur rences starting 01/12/2021 until 01/12/2021 End: 06-11-2020 Covid-19 Ambulatory Covid-19 Ambulatory Lab Routine Once for 1 Occurrences starting 06/11/2020 until 06/11/2020 [place] Comment on above: Once for 1 Occurrenc es starting 06/11/2020 until 06/11/2020 Covid-19 Ambulatory Covid-19 Amb ulatory Lab Routine 06/11/2020 4:23 PM [facility] [[email or web address] [place] CT ABDOMEN PELVIS W IV CONTRAST Additional Contrast? Rectal CT ABDOMEN PELVIS W IV CONTRAST Additional Contrast? Rectal Imaging Routine Abscess 02/08/2021 1:23 PM EDT [employer] Phone: Culture, Anaerobic a nd Aerobic Culture, Anaerobic and Aerobic Microbiology Routine 01/13/2021 2:34 PM EDT [employer] Phone: End: 06-04-2020 Culture, Urine Culture, Urine Microbiology Routine Once for 1 Occurrences starting 06/04/2020 until 06/04/2020 [facility] [place] Comment on above: Once for 1 Occurrenc es starting 06/04/2020 until 06/04/2020 Culture, Urine Culture, Urine Microbiology Routine 06/04/2020 5:00 PM [facility] [[email or web address]] [facility] [place] EKG 12 Lead EKG 12 Lead ECG Routine 06/05/2020 7:10 AM [facility] [email or web address]] [facility] [place] End: 06-18-2020 Fluoroscopy during operation [facility]O FOR SURGICAL PROCEDURES Imaging Routine Once for 1 Occurrences starting 06/18/2020 until 06/18/2020 [employer] Comment on above: Once for 1 Occurrenc es starting 06/18/2020 until 06/18/2020 Glucose [Mass/volume ] in Serum or Plasma POCT Glucose Point of Care Testing STAT As Needed until discontinued starting 05/18/2022 [employer] Phone: Comment on above: As Needed until disc ontinued starting 05/18/2022 End: 05-18-2022 INITIATE PACU OXYGEN THERAPY PROTOCOL Initiate PACU Oxygen Therapy Protocol Respiratory Care Routine Continuous until discontinued starting 05/18/2022 [employer] Phone: Comment on above: Continuous until dis continued starting 05/18/2022 Intermittent pulse oximetry Pulse Oximetry Spot Check Respiratory Care Routine As Needed until discontinued starting 01/12/2021 [employer] Phone: Comment on above: As Needed until disc ontinued starting 01/12/2021 NM MYOCARDIAL SPECT REST EXERCISE OR RX NM MYOCARDIAL SPECT REST EXERCISE OR RX Imaging Routine Pre-operative clearance 05/05/2021 10:59 AM EST [employer] Phone: Oxygen therapy [Mini mum Data Set] [facility] [employer] [place] Comment on above: Daily until disconti nued starting 06/18/2020 Daily until disconti nued starting 01/12/2021 Phase I & II - meter ed glucose Phase I & II - metered glucose Point of Care Testing Routine As Needed until discontinued starting 06/05/2020 [facility] [employer] [place] Comment on above: As Needed until disc ontinued starting 06/05/2020 Surgical Pathology Surgical Path ology Lab Routine Colon cancer screening Release Upon Ordering for 1 Occurrences starting 05/18/2022 [facility] [employer] Phone: Comment on above: Release Upon Orderin g for 1 Occurrences starting 05/18/2022 End: 09-13-2021 US DUP LOWER EXTREMITY RIGHT ARTERIES [employer] Phone: Comment on above: 1 Occurrences starti ng 09/13/2021 until 09/13/2021 End: 08-08-2022 US DUP LOWER EXTREMITY RIGHT ARTERIES [employer] Phone: Comment on above: 1 Occurrences starti ng 08/08/2022 until 08/08/2022 End: 08-08-2022 US DUPLEX SCAN OF AORTA [employer] Phone: Comment on above: 1 Occurrences starti ng 08/08/2022 until 08/08/2022 End: 09-13-2021 US SCREENING FOR AAA [employer] Phone: Comment on above: 1 Occurrences starti ng 09/13/2021 until 09/13/2021 End: 01-10-2023 Vascular duplex abdominal aorta [employer] Comment on above: 1 Occurrences starti ng 01/10/2023 until 01/10/2023 [facility] Immunizations Immunization Date Immunization Notes Care Provider Mary yeh 08-21-2021 tetanus toxoid, reduced diphtheria toxoid, and acellular pertussis vaccine, adsorbed; Translations: [Boostrix (Tdap)] Magalie HENNING [facility] [place] 09-04-2020 COVID-19, mRNA, LNP-S, PF, 30 mcg/0.3 mL dose; Translations: [Pfizer-BioNTech COVID-19 Vaccine] Magalie HENNING [facility] [place] Comment on above: Reason for Medicatio n: Prophylaxis Reason for Medicatio n: Prophylaxis 08-07-2020 COVID-19, mRNA, LNP-S, PF, 30 mcg/0.3 mL dose; Translations: [Pfizer-BioNTech COVID-19 Vaccine] Magalie HENNING [facility] [place] Comment on above: Reason for Medicatio n: Prophylaxis Reason for Medicatio n: Prophylaxis 04-11-2019 influenza, injectable, quadrivalent, contains preservative Magalie HENNING [facility] [place] 03-24-2017 tetanus toxoid, reduced diphtheria toxoid, and acellular pertussis vaccine, adsorbed; Translations: [Adacel (Tdap)] Magalie HENNING [facility] NEGATED: Highlighted row has not occurred!08-01-2023 influenza virus vaccine, unspecified formulation Beth Elias [facility] [place] NEGATED: Highlighted row has not occurred!07-22-2022 influenza virus vaccine, unspecified formulation Beth Elias [facility] [place] NEGATED: Highlighted row has not occurred!03-17-2022 SARS-CoV-2 mRNA (tozinameran 5y-11y) vaccine Guille ALICEA [facility] [place] Comment on above: Result Comment: init ial vaccinations received NEGATED: Highlighted row has not occurred!07-30-2020 influenza virus vaccine, unspecified formulation Magalie DONNAMILLER [facility] NEGATED: Highlighted row has not occurred!04-11-2019 influenza virus vaccine, unspecified formulation Magalie DONNAMILLER [facility] Comment on above: Result Comment: pt r eceived vaccine Result Comment: pt r eceived vaccine Payers Date Payer Category Payer Unknown 2022 Private Health Insurance [id number] 2020 Unknown [id number] 1959 Unknown [id number] 2.16.8 [id number] 1959 Unknown [id number] 2.16.8 40.1.097053.3.579.2.173 1959 Unknown [id number] 2.16.8 40.1.384229.3.579.2.175 1959 Unknown [id number] 2.16.8 40.1.450303.3.579.2.174 1959 Unknown [id number] 2.16.8 40.1.540139.3.579.2.174 1959 Unknown [id number] 2.16.8 40.1.245887.3.579.2.182 1959 Unknown [id number] 2.16.8 40.1.124387.3.579.2.727 1959 Unknown [id number] 2.16.8 40.1.825843.3.579.2.7 1959 Unknown [id number] 2.16.8 40.1.167377.3.579.2. 1959 Unknown [id number] 2.16.8 40.1.958155.3.579.2. 1959 Unknown [id number] 2.16.8 40.1.782430.3.579.2. 1959 Unknown [id number] 2.16.8 40.1.698916.3.579.2. 1959 Unknown [id number] 2.16.8 40.1.252712.3.579.2. 1959 Unknown [id number] 2.16.8 40.1.732958.3.579.2. 1959 Unknown [id number] 2.16.8 40.1.604914.3.579.2. 1959 Unknown [id number] 2.16.8 40.1.828909.3.579.2. 1959 Unknown [id number] 2.16.8 40.1.921945.3.579.2. 1959 Unknown [id number] 2.16.8 40.1.580643.3.579.2. 1959 Unknown [id number] 2.16.8 40.1.952409.3.579.2. 1959 Unknown [id number] 2.16. [id number] 1959 Unknown [id number] Social History Date Type Detail Facility Start: 06-05-2020 End: 08-23-2022 Tobacco smoking status NHIS Current every day smoker [place] Start: 05-28-1969 History of tobacco use Cigarette Smo ker [place] Start: 06-05-2020 End: 01-18-2023 Cigarettes smoked current (pack per day) - Reported [place] Start: 06-05-2020 End: 08-23-2022 Tobacco use and exposure Never used [facility] [place] Start: 06-05-2020 End: 08-08-2022 Alcohol intake Current non-drinker of alcohol (finding) [place] Start: 1960 Sex Assigned At Not on file [place] Start: 09-03-2021 End: 08-08-2022 Exposure to SARS-CoV-2 (event) Not sure [place] Start: 09-15-2021 End: 02-28-2024 Tobacco smoking status Heavy tobacco smoker (finding) [facility] Comment on above: 1-2 ppd 1-2 ppd Tobacco smoking status Never [facility] Comment on above: 1-2 ppd 1-2 ppd Start: 11-03-2022 End: 01-18-2023 Sex Assigned At Male [facility] Medical Equipment Procedure Code Equipment Code Equipment Original Text Equipment Identifier Dates Stent Uret 6fr L 26cm Hydr+ Pgtl Tapr Tip Grad Bldr Mrk [id number] Start: 06-05-2020 Stent Uret 6fr L 26cm Hydr+ Pgtl Tapr Tip Grad Bldr k [id number] Start: 06-18-2020 Graft Evar L14cm Aort [id number] Il [id number] Ipsilateral Leg W/ - [id number] Start: 06-03-2021 Comment on above: Description: Main body abdominal aorta Graft Endopros L 12cm Dst [id number] Contralateral Leg W/ C3 - [id number] Start: 06-03-2021 Comment on above: Description: Implanted in: LEFT COMMON I LIAC ARTERY Stent Protege Ev erflex [id number] Start: 06-03-2021 Comment on above: Description: IMPLANTED IN: LEFT FEMORAL ARTERY Patch Biologic V asc 1cm Wx14cm L .55mm Thicknessxenosure [id number] Start: 06-03-2021 Functional Status Date Assessment Result Facility 02-28-2024 Functional Status N/A [facility] 01-01-2024 Functional Status N/A [facility] 12-27-2023 Functional Status N/A [facility] 09-07-2023 Functional Status N/A [facility] 08-02-2023 Functional Status N/A [facility] 08-01-2023 Functional Status N/A [facility] 06-16-2023 Functional Status N/A [facility] 04-07-2023 Functional Status N/A [facility] 02-10-2023 Functional Status N/A [facility] 02-07-2023 Functional Status N/A [facility] 01-18-2023 Functional Status N/A [facility] 11-11-2022 Functional Status N/A [facility] 10-14-2022 Functional Status N/A [facility] 09-21-2022 Functional Status N/A [facility] 08-19-2022 Functional Status N/A [facility] 07-27-2022 Functional Status N/A [facility] 06-10-2022 Functional Status N/A [facility] 05-11-2022 Functional Status N/A [facility] 04-27-2022 Functional Status N/A [facility] 04-05-2022 Functional Status N/A [facility] 03-17-2022 Functional Status N/A [facility] 03-04-2022 Functional Status N/A [facility] 02-02-2022 N/A [facility] 12-27-2021 Functional Status N/A [facility] Clinical Notes 01-13-2021 to 02-28-2024 Note Date & Type Note Facility 02-28-2024 Hospital Discharg e instructions Patient Education 02/28/2024 15:30:20 Hypertension, Adult, Ssaw-an-Uwre Hypertension, Adult Hypertension is another name for high blood pressure. High blood pressure forces your heart to work harder to pump blood. This can cause problems over time. There are two numbers in a blood pressure reading. There is a top number (systolic) over a bottom number (diastolic). It is best to have a blood pressure that is below 120/80. What are the causes? The cause of this condition is not known. Some other conditions can lead to high blood pressure. What increases the risk? Some lifestyle factors can make you more likely to develop high blood pressure: Smoking. Not getting enough exercise or physical activity. Being overweight. Having too much fat, sugar, calories, or salt (sodium) in your diet. Drinking too much alcohol. Other risk factors include: Having any of these conditions: ?Heart disease. ?Diabetes. ? High cholesterol. ?Kidney disease. ?Obstructive sleep apnea. Having a family history of high blood pressure and high cholesterol. Age. The risk increases with age. Stress. What are the signs or symptoms? High blood pressure may not cause symptoms. Very high blood pressure (hypertensive crisis) may cause: Headache. Fast or uneven heartbeats (palpitations). Shortness of breath. Nosebleed. Vomiting or feeling like you may vomit (nauseous). Changes in how you see. Very bad chest pain. Feeling dizzy. Seizures. How is this treated? This condition is treated by making healthy lifestyle changes, such as: ?Eating healthy foods. ?Exercising more. ?Drinking less alcohol. Your doctor may prescribe medicine if lifestyle changes do not help enough and if: ?Your top number is above 130. ?Your bottom number is above 80. Your personal target blood pressure may vary. Follow these instructions at home: Eating and drinking If told, follow the DASH eating plan. To follow this plan: ?Fill one half of your plate at each meal with fruits and vegetables. ?Fill one fourth of your plate at each meal with whole grains. Whole grains include whole-wheat pasta, brown rice, and whole-grain bread. ?Eat or drink low-fat dairy products, such as skim milk or low-fat yogurt. ?Fill one fourth of your plate at each meal with low-fat (lean) proteins. Low-fat proteins include fish, chicken without skin, eggs, beans, and tofu. ?Avoid fatty meat, cured and processed meat, or chicken with skin. ?Avoid pre-made or processed food. Limit the amount of salt in your diet to less than 1,500 mg each day. Do not drink alcohol if: ?Your doctor tells you not to drink. ?You are , may be , or are planning to become . If you drink alcohol: ?Limit how much you have to: ?0 1 drink a day for women. ?0 2 drinks a day for men. ?Know how much alcohol is in your drink. In the [place] one drink equals one 12 oz bottle of beer (355 mL), one 5 oz glass of wine (148 mL), or one 1 oz glass of hard liquor (44 mL). Lifestyle Work with your doctor to stay at a healthy weight or to lose weight. Ask your doctor what the best weight is for you. Get at least 30 minutes of exercise that causes your heart to beat faster (aerobic exercise) most days of the week. This may include walking, swimming, or biking. Get at least 30 minutes of exercise that strengthens your muscles (resistance exercise) at least 3 days a week. This may include lifting weights or doing Pilates. Do not smoke or use any products that contain nicotine or tobacco. If you need help quitting, ask your doctor. Check your blood pressure at home as told by your doctor. Keep all follow-up visits. Medicines Take ixwc-vzv-egypclm and prescription medicines only as told by your doctor. Follow directions carefully. Do not skip doses of blood pressure medicine. The medicine does not work as well if you skip doses. Skipping doses also puts you at risk for problems. Ask your doctor about side effects or reactions to medicines that you should watch for. Contact a doctor if: You think you are having a reaction to the medicine you are taking. You have headaches that keep coming back. You feel dizzy. You have swelling in your ankles. You have trouble with your vision. Get help right away if: You get a very bad headache. You start to feel mixed up (confused). You feel weak or numb. You feel faint. You have very bad pain in your: ?Chest. ?Belly (abdomen). You vomit more than once. You have trouble breathing. These symptoms may be an emergency. Get help right away. Call 911. Do not wait to see if the symptoms will go away. Do not drive yourself to the hospital. Summary Hypertension is another name for high blood pressure. High blood pressure forces your heart to work harder to pump blood. For most people, a normal blood pressure is less than 120/80. Making healthy choices can help lower blood pressure. If your blood pressure does not get lower with healthy choices, you may need to take medicine. This information is not intended to replace advice given to you by your health care provider. Make sure you discuss any questions you have with your health care provider. Document Revised: 02/24/2022 Document Reviewed: 02/24/2022 [employer] Patient Education 2023 [employer]. 02/28/2024 15:30:16 Sciatica, Edwq-rc-Vjjd Sciatica Sciatica is pain, weakness, tingling, or loss of feeling (numbness) along the sciatic nerve. The sciatic nerve starts in the lower back and goes down the back of each leg. Sciatica usually affects one side of the body. Sciatica usually goes away on its own or with treatment. Sometimes, sciatica may come back. What are the causes? This condition happens when the sciatic nerve is pinched or has pressure put on it. This may be caused by: A disk in between the bones of the spine bulging out too far (herniated disk). Changes in the spinal disks due to aging. A condition that affects a muscle in the butt. Extra bone growth near the sciatic nerve. A break (fracture) of the area between your hip bones (pelvis). . Tumor. This is rare. What increases the risk? You are more likely to develop this condition if you: Play sports that put pressure or stress on the spine. Have poor strength and ease of movement (flexibility). Have had a back injury or back surgery. Sit for long periods of time. Do activities that involve bending or lifting over and over again. Are very overweight (obese). What are the signs or symptoms? Symptoms can vary from mild to very bad. They may include: Any of these problems in the lower back, leg, hip, or butt: ?Mild tingling, loss of feeling, or dull aches. ?A burning feeling. ?Sharp pains. Loss of feeling in the back of the calf or the sole of the foot. Leg weakness. Very bad back pain that makes it hard to move. These symptoms may get worse when you cough, sneeze, or laugh. They may also get worse when you sit or stand for long periods of time. How is this treated? This condition often gets better without any treatment. However, treatment may include: Changing or cutting back on physical activity when you have pain. Exercising, including strengthening and stretching. Putting ice or heat on the affected area. Shots of medicines to relieve pain and swelling or to relax your muscles. Surgery. Follow these instructions at home: Medicines Take mujd-iif-jbjnwjn and prescription medicines only as told by your doctor. Ask your doctor if you should avoid driving or using machines while you are taking your medicine. Managing pain If told, put ice on the affected area. To do this: ?Put ice in a plastic bag. ?Place a towel between your skin and the bag. ?Leave the ice on for 20 minutes, 2 3 times a day. ?If your skin turns bright red, take off the ice right away to prevent skin damage. The risk of skin damage is higher if you cannot feel pain, heat, or cold. If told, put heat on the affected area. Do this as often as told by your doctor. Use the heat source that your doctor tells you to use, such as a moist heat pack or a heating pad. ?Place a towel between your skin and the heat source. ?Leave the heat on for 20 30 minutes. ?If your skin turns bright red, take off the heat right away to prevent huerta. The risk of huerta is higher if you cannot feel pain, heat, or cold. Activity Return to your normal activities when your doctor says that it is safe. Avoid activities that make your symptoms worse. Take short rests during the day. ?When you rest for a long time, do some physical activity or stretching between periods of rest. ?Avoid sitting for a long time without moving. Get up and move around at least one time each hour. Do exercises and stretches as told by your doctor. Do not lift anything that is heavier than 10 lb (4.5 kg). ?Avoid lifting heavy things even when you do not have symptoms. ?Avoid lifting heavy things over and over. When you lift objects, always lift in a way that is safe for your body. To do this, you should: ?Bend your knees. ?Keep the object close to your body. ?Avoid twisting. General instructions Stay at a healthy weight. Wear comfortable shoes that support your feet. Avoid wearing high heels. Avoid sleeping on a mattress that is too soft or too hard. You might have less pain if you sleep on a mattress that is firm enough to support your back. Contact a doctor if: Your pain is not controlled by medicine. Your pain does not get better. Your pain gets worse. Your pain lasts longer than 4 weeks. You lose weight without trying. Get help right away if: You cannot control when you pee (urinate) or poop (have a bowel movement). You have weakness in any of these areas and it gets worse: ?Lower back. ?The area between your hip bones. ?Butt. ?Legs. You have redness or swelling of your back. You have a burning feeling when you pee. Summary Sciatica is pain, weakness, tingling, or loss of feeling (numbness) along the sciatic nerve. This may include the lower back, legs, hips, and butt. This condition happens when the sciatic nerve is pinched or has pressure put on it. Treatment often includes rest, exercise, medicines, and putting ice or heat on the affected area. This information is not intended to replace advice given to you by your health care provider. Make sure you discuss any questions you have with your health care provider. Document Revised: 08/15/2022 Document Reviewed: 08/15/2022 [employer] Patient Education 2023 [employer]. 02/28/2024 15:30:08 Acute Pain, Adult Acute Pain, Adult Acute pain is a type of sudden pain that may last for just a few days or for as long as three months. It is often related to an illness, injury, or a medical procedure. Acute pain may be mild, moderate, or severe. Pain can make it hard for you to do your daily activities. It can cause anxiety and lead to other problems if it is not treated. Treatment may not take all the pain away, but it may lessen the pain so you can move around and tolerate it. Pain is best treated with medicines and other therapies such as distraction, meditation, oils from plants (aromatherapy), heat, and ice. Treatment depends on the cause of the pain and how severe it is. Acute pain usually goes away once your injury has healed or you are no longer ill. Follow these instructions at home: Medicines Take akzw-mfq-ozuxayf and prescription medicines only as told by your health care provider. Take the lowest dose of medicine for the shortest amount of time needed to relieve the pain. If you are taking prescription pain medicine: ?Do not stop taking the medicine suddenly. Talk to your health care provider about how and when to stop taking prescription medicine. ?Do not take more pills than told by your health care provider even if your pain is severe. ?Do not take other lvrt-bhb-pkpcipu pain medicines in addition to prescription pain medicine unless told by your health care provider. ?Keep your medicine in a safe place, away from children or anyone who could use it in a way that it was not prescribed. ?Ask your health care provider if the medicine prescribed to you requires you to avoid driving or using machinery. Managing pain, stiffness, and swelling If told, put ice on the affected area. ?Put ice in a plastic bag. ?Place a towel between your skin and the bag. ?Leave the ice on for 20 minutes, 2 3 times a day. If told, apply heat to the affected area as often as told by your health care provider. Use the heat source that your health care provider recommends, such as a moist heat pack or a heating pad. ?Place a towel between your skin and the heat source. ?Leave the heat on for 20 30 minutes. If your skin turns bright red, remove the ice or heat right away to prevent skin damage. The risk of damage is higher if you cannot feel pain, heat, or cold. Managing constipation Your medicines may cause constipation. To prevent or treat constipation, you may need to: Drink enough fluid to keep your urine pale yellow. Take tluu-shy-tnmsucv or prescription medicines. Eat foods that are high in fiber, such as beans, whole grains, and fresh fruits and vegetables. Limit foods that are high in fat and processed sugars, such as fried or sweet foods. Activity Rest as told by your health care provider. Return to your normal activities as told by your health care provider. Ask your health care provider what activities are safe for you. Ask your health care provider if doing physical therapy exercises to improve movement and strength can help you manage your pain. General instructions Check your pain level as told by your health care provider. Ask your health care provider if distraction, relaxation, or aromatherapy can help you manage your pain. Keep all follow-up visits. Your health care provider will monitor your pain level. Contact a health care provider if: Your pain is not controlled by medicine. Your pain does not improve or gets worse. You have side effects from pain medicines. Get help right away if: You have severe pain. You have trouble breathing. You faint, or another person sees you faint. You have chest pain or pressure that lasts for more than a few minutes, or if you have other symptoms along with chest pain, including: ?Pain or discomfort in one or both arms, your back, neck, jaw, or stomach. ?Shortness of breath. ?A cold sweat. ?Nausea. ?Feeling light-headed. These symptoms may be an emergency. Get help right away. Call 911. Do not wait to see if the symptoms will go away. Do not drive yourself to the hospital. This information is not intended to replace advice given to you by your health care provider. Make sure you discuss any questions you have with your health care provider. Document Revised: 11/30/2022 Document Reviewed: 11/30/2022 [employer] Patient Education 2023 [employer]. Follow Up Care 02/28/2024 12:56:26 With:Curt AQUINO, ELECTRIC NEEDLE SPECIALIST-REACTOR SERVICE OPERATOR, Beth Dash Address: [address] [place] [id number] When: Unknown [facility] 02-28-2024 Note Patient Education Cardiovascular Hypertension, Adult Hypertension is another name for high blood pressure. High blood pressure forces your heart to work harder to pump blood. This can cause problems over time. There are two numbers in a blood pressure reading. There is a top number (systolic) over a bottom number (diastolic). It is best to have a blood pressure that is below 120/80. What are the causes? The cause of this condition is not known. Some other conditions can lead to high blood pressure. What increases the risk? Some lifestyle factors can make you more likely to develop high blood pressure: ? Smoking. ? Not getting enough exercise or physical activity. ? Being overweight. ? Having too much fat, sugar, calories, or salt (sodium) in your diet. ? Drinking too much alcohol. Other risk factors include: ? Having any of these conditions: ? Heart disease. ? Diabetes. ? High cholesterol. ? Kidney disease. ? Obstructive sleep apnea. ? Having a family history of high blood pressure and high cholesterol. ? Age. The risk increases with age. ? Stress. What are the signs or symptoms? High blood pressure may not cause symptoms. Very high blood pressure (hypertensive crisis) may cause: ? Headache. ? Fast or uneven heartbeats (palpitations). ? Shortness of breath. ? Nosebleed. ? Vomiting or feeling like you may vomit (nauseous). ? Changes in how you see. ? Very bad chest pain. ? Feeling dizzy. ? Seizures. How is this treated? ? This condition is treated by making healthy lifestyle changes, such as: ? Eating healthy foods. ? Exercising more. ? Drinking less alcohol. ? Your doctor may prescribe medicine if lifestyle changes do not help enough and if: ? Your top number is above 130. ? Your bottom number is above 80. ? Your personal target blood pressure may vary. Follow these instructions at home: Eating and drinking ? If told, follow the DASH eating plan. To follow this plan: ? Fill one half of your plate at each meal with fruits and vegetables. ? Fill one fourth of your plate at each meal with whole grains. Whole grains include whole-wheat pasta, brown rice, and whole-grain bread. ? Eat or drink low-fat dairy products, such as skim milk or low-fat yogurt. ? Fill one fourth of your plate at each meal with low-fat (lean) proteins. Low-fat proteins include fish, chicken without skin, eggs, beans, and tofu. ? Avoid fatty meat, cured and processed meat, or chicken with skin. ? Avoid pre-made or processed food. ? Limit the amount of salt in your diet to less than 1,500 mg each day. ? Do not drink alcohol if: ? Your doctor tells you not to drink. ? You are , may be , or are planning to become . ? If you drink alcohol: ? Limit how much you have to: ? 0?1 drink a day for women. ? 0?2 drinks a day for men. ? Know how much alcohol is in your drink. In the [place] one drink equals one 12 oz bottle of beer (355 mL), one 5 oz glass of wine (148 mL), or one 1? oz glass of hard liquor (44 mL). Lifestyle ? Work with your doctor to stay at a healthy weight or to lose weight. Ask your doctor what the best weight is for you. ? Get at least 30 minutes of exercise that causes your heart to beat faster (aerobic exercise) most days of the week. This may include walking, swimming, or biking. ? Get at least 30 minutes of exercise that strengthens your muscles (resistance exercise) at least 3 days a week. This may include lifting weights or doing Pilates. ? Do not smoke or use any products that contain nicotine or tobacco. If you need help quitting, ask your doctor. ? Check your blood pressure at home as told by your doctor. ? Keep all follow-up visits. Medicines ? Take mxuf-yll-lsawjwu and prescription medicines only as told by your doctor. Follow directions carefully. ? Do not skip doses of blood pressure medicine. The medicine does not work as well if you skip doses. Skipping doses also puts you at risk for problems. ? Ask your doctor about side effects or reactions to medicines that you should watch for. Contact a doctor if: ? You think you are having a reaction to the medicine you are taking. ? You have headaches that keep coming back. ? You feel dizzy. ? You have swelling in your ankles. ? You have trouble with your vision. Get help right away if: ? You get a very bad headache. ? You start to feel mixed up (confused). ? You feel weak or numb. ? You feel faint. ? You have very bad pain in your: ? Chest. ? Belly (abdomen). ? You vomit more than once. ? You have trouble breathing. These symptoms may be an emergency. Get help right away. Call 911. ? Do not wait to see if the symptoms will go away. ? Do not drive yourself to the hospital. Summary ? Hypertension is another name for high blood pressure. ? High blood pressure forces your heart to work harder to p (more content not included)... [facility] 02-01-2024 Note Patient Education Cardiovascular Hypertension, Adult High blood pressure (hypertension) is when the force of blood pumping through the arteries is too strong. The arteries are the blood vessels that carry blood from the heart throughout the body. Hypertension forces the heart to work harder to pump blood and may cause arteries to become narrow or stiff. Untreated or uncontrolled hypertension can lead to a heart attack, heart failure, a stroke, kidney disease, and other problems. A blood pressure reading consists of a higher number over a lower number. Ideally, your blood pressure should be below 120/80. The first ( top ) number is called the systolic pressure. It is a measure of the pressure in your arteries as your heart beats. The second ( bottom ) number is called the diastolic pressure. It is a measure of the pressure in your arteries as the heart relaxes. What are the causes? The exact cause of this condition is not known. There are some conditions that result in high blood pressure. What increases the risk? Certain factors may make you more likely to develop high blood pressure. Some of these risk factors are under your control, including: ? Smoking. ? Not getting enough exercise or physical activity. ? Being overweight. ? Having too much fat, sugar, calories, or salt (sodium) in your diet. ? Drinking too much alcohol. Other risk factors include: ? Having a personal history of heart disease, diabetes, high cholesterol, or kidney disease. ? Stress. ? Having a family history of high blood pressure and high cholesterol. ? Having obstructive sleep apnea. ? Age. The risk increases with age. What are the signs or symptoms? High blood pressure may not cause symptoms. Very high blood pressure (hypertensive crisis) may cause: ? Headache. ? Fast or irregular heartbeats (palpitations). ? Shortness of breath. ? Nosebleed. ? Nausea and vomiting. ? Vision changes. ? Severe chest pain, dizziness, and seizures. How is this diagnosed? This condition is diagnosed by measuring your blood pressure while you are seated, with your arm resting on a flat surface, your legs uncrossed, and your feet flat on the floor. The cuff of the blood pressure monitor will be placed directly against the skin of your upper arm at the level of your heart. Blood pressure should be measured at least twice using the same arm. Certain conditions can cause a difference in blood pressure between your right and left arms. If you have a high blood pressure reading during one visit or you have normal blood pressure with other risk factors, you may be asked to: ? Return on a different day to have your blood pressure checked again. ? Monitor your blood pressure at home for 1 week or longer. If you are diagnosed with hypertension, you may have other blood or imaging tests to help your health care provider understand your overall risk for other conditions. How is this treated? This condition is treated by making healthy lifestyle changes, such as eating healthy foods, exercising more, and reducing your alcohol intake. You may be referred for counseling on a healthy diet and physical activity. Your health care provider may prescribe medicine if lifestyle changes are not enough to get your blood pressure under control and if: ? Your systolic blood pressure is above 130. ? Your diastolic blood pressure is above 80. Your personal target blood pressure may vary depending on your medical conditions, your age, and other factors. Follow these instructions at home: Eating and drinking ? Eat a diet that is high in fiber and potassium, and low in sodium, added sugar, and fat. An example of this eating plan is called the DASH diet. DASH stands for Dietary Approaches to Stop Hypertension. To eat this way: ? Eat plenty of fresh fruits and vegetables. Try to fill one half of your plate at each meal with fruits and vegetables. ? Eat whole grains, such as whole-wheat pasta, brown rice, or whole-grain bread. Fill about one fourth of your plate with whole grains. ? Eat or drink low-fat dairy products, such as skim milk or low-fat yogurt. ? Avoid fatty cuts of meat, processed or cured meats, and poultry with skin. Fill about one fourth of your plate with lean proteins, such as fish, chicken without skin, beans, eggs, or tofu. ? Avoid pre-made and processed foods. These tend to be higher in sodium, added sugar, and fat. ? Reduce your daily sodium intake. Many people with hypertension should eat less than 1,500 mg of sodium a day. ? Do not drink alcohol if: ? Your health care provider tells you not to drink. ? You are , may be , or are planning to become . ? If you drink alcohol: ? Limit how much you have to: ? 0?1 drink a day for women. ? 0?2 drinks a day for men. ? Know how much alcohol is in your drink. In the [place] one drink equals one 12 oz bottle of beer (355 mL), one 5 oz glass of wine (148 mL), (more content not included)... 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 Patient underwent bilateral medial branch block covering the L4-S1 facet joints on 12/27/2023. This gave 100% relief for at least 4 hours. Unfortunate, the back pain has since returned and is back to baseline at a 5/10. This affects his quality of life. This affects his activities. Affects his ability to do things he wants to do and he is eager to get long-term relief. Based on his imaging findings, his pain pattern and his failure to improve with conservative treatments as well as the significant response he got from the recent medial branch block I discussed with patient once again pursuing bilateral medial branch block covering the L4-S1 facet joints under fluoroscopy for diagnostic purposes. If he once again get significant short-term relief he would be a future cane for RFA. Procedure was discussed. Risk and benefits were discussed. Patient is agreeable. He will follow-up 1 week after the injection for reevaluation. Call the clinic in the interim should he require anything from our services. BARRETT score: 62%. Future Appointments Appointment Date:02/02/2024 08:00:00 AM Scheduled Provider:Curt AQUINO, Beth HARLEY Location:[facility] Appointment Type: Open Future Scheduled Tests Laboratory* CBC w/ Auto Diff 02/07/23 * Comprehensive Metabolic Panel 02/07/23 * Lipid Panel 02/07/23 [facility] 08-12-2024 NoteConsultation Note Patient: DENVER PERDUE Age: 63 years Sex: Male : 1960 Associated Diagnoses: None Author: Jillian Aranda PA-C Subjective Chief complaint 01/01/2024 12:30 EDT Low back pain . Patient is a 63-year-old male. He is following up today after undergoing bilateral medial branch block covering the L4-S1 facet joints. This was done on 12/27/2023 and gave him 100% relief for 4 hours if not more. His back pain was impaired at that time. Unfortunate, it has since returned. It is a 5/10. Worse with being upright, worse with being active, worse with standing. He would like to get this amount of pain relief long-term. He has done therapy in the past that has not helped. He has trialed all reasonable conservative treatments. This has not helped. He underwent an epidural in the pastwith relief of his radicular symptoms at this time just wants to get relief of the back pain. Health Status Allergies: Allergic Reactions (Selected) No Known Allergies No Known Medication Allergies, Allergies (2) Active Severity Reaction No Known Allergies None Documented No Known Medication Allergies None Documented Current medications: (Selected) Prescriptions Prescribed Protonix 40 mg Tab-DR: 40 mg = 1 tab(s), Oral, Daily, # 90 tab(s), Refills(s) 3, Pharmacy: [facility] #[facility], 176, cm, 09/07/23 15:47:00 EDT, Height/Length Dosing, 82, kg, 09/07/23 15:47:00 EDT, Weight Dosing atorvastatin 20 mg Tab: 20 mg = 1 tab(s), Oral, Daily, # 90 tab(s), Refills(s) 3, Pharmacy: [facility] #[facility], 176, cm, 09/07/23 15:47:00 EDT, Height/Length Dosing, 82, kg, 09/07/23 15:47:00EDT, Weight Dosing baclofen 10 mg Tab: 10 mg = 1 tab(s), Oral, TID, PRN Muscle pain, X 90 day(s), # 270 tab(s), Refills(s) 0, Pharmacy: [facility] #[facility], 176, cm, 09/07/23 15:47:00 EDT, Height/Length Dosing, 82, kg, 09/07/23 15:47:00 EDT, Weight Dosing buPROPion 150 mg ER Tab: 150 mg = 1 tab(s), Oral, BID, # 60 tab(s), Refills(s) 3, Pharmacy: [facility] #[facility], 176, cm, 09/07/23 15:47:00 EDT, Height/Length Dosing, 82, kg, 09/07/23 15:47:00EDT, Weight Dosing cilostazol 100 mg Tab: See Instructions, Take one tablet twice a day, # 90 EA, Refills(s) 3, Pharmacy: [facility] #[facility], 176, cm, 09/07/23 15:47:00 EDT, Height/Length Dosing, 82, kg, 09/07/23 15:47:00 EDT, Weight Dosing gabapentin 600 mg Tab: 600 mg = 1 tab(s), Oral, TID, # 270 tab(s), Refills(s) 0, Pharmacy: [facility] #[facility], 176, cm, 09/07/23 15:47:00 EDT, Height/Length Dosing, 82, kg, 09/07/23 15:47:00 EDT, Weight Dosing ropinirole 1 mg Tab: 1 mg = 1 tab(s), Oral, Daily, 1 to 3 hours before bedtime, # 90 tab(s), Refills(s) 1, Pharmacy: [facility] #[facility], 176, cm, 09/07/23 15:47:00 EDT, Height/Length Dosing, 82, kg, 09/07/23 15:47:00 EDT, Weight Dosing triamcinolone Top 0.1% Oint: 1 ted, Topical, TID Dry skin, 30 gm, Refill(s) 0, [facility] #[facility], 176, cm, 09/07/23 15:47:00 EDT, Height/Length Dosing, 82, kg, 09/07/23 15:47:00 EDT, Weight Dosing Documented Medications Documented Metoprolol succinate 25 mg ER Tablet: Refills(s) 0 Plavix 75 mg Tab: 75 mg = 1 tab(s), Oral, Daily, Refills(s) 0 Problem list: All Problems Sciatica / SNOMED CT 17303141 / Confirmed GERD (gastroesophageal reflux disease) / SNOMED CT 883488344 / Confirmed Pain in joint, multiple sites / SNOMED CT 420979893 / Confirmed Kidney stone on left side / SNOMED CT 895214871 / Confirmed AAA (abdominal aortic aneurysm) / SNOMED CT 300982914 / Confirmed PAD (peripheral artery disease) / SNOMED CT 6112453306 / Confirmed Hypocalcemia / SNOMED CT 3892702 / Confirmed Anticoagulated / SNOMED CT 945309306 / Confirmed Lumbar radiculopathy / SNOMED CT 348079502 / Confirmed Cigarette nicotine dependence / SNOMED CT 58159773 / Confirmed Prostate cancer screening / SNOMED CT [id number] / Confirmed Combined hyperlipidemia / SNOMED CT 642443301 / Confirmed History of diverticular abscess of colon / SNOMED CT 9291403148 / Confirmed Benign essential HTN / SNOMED CT 4972912 / Confirmed Actinic keratoses / SNOMED CT 7754709407 / Confirmed Restless leg syndrome / SNOMED CT 53383988 / Confirmed 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 Canceled: Smoker / SNOMED CT 1162357895 Added secondary to documentation in Social History. Canceled: Left hip pain / SNOMED CT 73239412 Canceled: Lumbar back pain / SNOMED CT 332370724 Canceled: Dyspepsia / SNOMED CT 341577153 (more content not included)...[facility] HospitalComment on above:Result Comment: Electronically Signed By: Jillian Aranda PA-C\.br\Date and Time Signed: 01/01/24 12:59 [id number] NoteOperative Report Diagnosis: m47.816, lumbar spondyloarthropathy Procedure: Bilateral diagnostic lumbar medial branch blocks under fluoroscopic guidance, targeting the L4/5 and L5/S1 facet joints Anesthesia: Local Complications: none After informed consent was obtained, the patient was brought to the procedure room and placed in the prone position. The back area is prepped and draped in usual sterile fashion. Using fluoroscopic guidance skin and subcutaneous tissue overlying needle trajectories to the target sites were anesthetized with 2% lidocaine. 22-gauge needles were advanced under fluoroscopic guidance to the appropriate anatomic landmarks. Needle tip position was confirmed using fluoroscopy in at least 2 views. Injection of small amount of contrast through each needle tip revealed appropriate spread without vascular take. Subsequently, 0.5 mL of 0.5% bupivacaine was injected at each needle tip. The needles were re moved. The patient was then transferred to the recovery room in stable condition. Follow-up: Should the patient have pain relief, the patient may be a candidate for radiofrequency lesioning. The patient agrees to continue currently prescribed/recommended therapies.[facility] HospitalComment on above: Result Comment: Electronically Signed By: Cresencio Andrade DO\.br\Date and Time Signed: 12/27/23 13:20 [id number] Evaluation + Plan noteExtracted from: Title:chronic pain Author:Cresencio Andrade DO Date:09/07/23 Patient is presenting as a f ollow-up after his L5/S1 interlaminar epidural steroid injection on 08/02/2019 for the provided 75% pain relief and completely resolved his radicular symptoms. At present he still has axial back pain that he rates as a 4/10 but can be a 7/10 particularly in the morning as well as with twisting turning and bending. He is not radiation of any of these pain. This is different in nature than previous pain that he experienced with radicular symptoms. we did review his CT lumbar spine studies and discussed that this is likely spondyloarthropathy in nature as he does have degenerative changes throughout his lumbar spine. He has completed formal physical therapy in the remote past and participates in home stretching and strengthening exercises on a regular basis. He has tried acetaminophen and is unable to take NSAIDs secondary to Plavix use. Additionally, he feels that baclofen gabapentin not help with his axial component of his back pain. BARRETT Score: 52% i PHQ-2: 5 Patient denies any symptoms of progressively worsening upper/lower extremity weakness, progressively worsening gait abnormality, new onset bowel/bladder incontinence/ urinary retention, or saddle anesthesia. No new or worsening symptoms of fever, chills, night sweats. 14 Point Review of systems negative unless otherwise noted. General: No acute distress. Patient appears well-nourished. HEENT: Head is normocephalic and external ears are normal in appearance. Cardiovascular: No signs of poor perfusion and no peripheral edema Pulmonary: Nonlabored breathing, symmetric chest movement. GI: Abdomen nondistended Integumentary: No lesions Musculoskeletal: Laterally tender to palpation lumbar paraspinal musculature and underlying facets bilaterally. Neurologic: Alert, oriented x3. 5/5 strength grossly in the bilateral upper extremities. Sensation intact to light touch in the bilateral upper extremities. 5/5 strength grossly in the bilateral lower extremities. Sensation intact to light touch in the bilateral lower extremities. Special Testing: Negative Josue sign bilaterally, seated straight leg raise test not reproduce radicular sign bilaterally, lumbar facet loading did reproduce axial back pain. History, physical examination, and personal review of pertinent imaging results indicate a diagnosis of: -Lumbar radiculopathy, significantly proved -Lumbar spondyloarthropathy Plan: -Patient on XR sponsored L5/S1 interlaminar epidural steroid injection and his radicular symptoms are significantly improved and completely gone at present he still has persistent axial back pain that is spondylarthritis in nature we will plan to perform bilateral L3-5 medial branch blocks to target the L4/5 and L5-S1 facet joints under fluoroscopic guidance -Will continue on gabapentin and baclofen -Follow-up 1 to 2 weeks postinjection or sooner if any issues arise Patient was counseled on the above diagnosis and treatment, all questions were answered and patient agrees to adhere to the plan above. Risk and benefits of appropriate procedures and medications were reviewed as well with patient, who voiced understanding and agreeance. Patient was counseled on appropriate use of opioids if prescribed or renewed today and naloxone was offered to patient if opioids were prescribed or maintained at this visit. Patient was counseled on smoking cessation and/or continuing to abstain from nicotine/tobacco products as appropriate based on history; as smoking/nicotine can contribute to increased pain overall and decreased wound healing. Patient counseled on maintaining a healthy BMI as part of the total treatment of their pain and to reduce stress/strain on joints. Patient invited to return or call with any questions or concerns that arise. Future Appointments Appointment Date:02/02/2024 08:00:00 AM Scheduled Provider:Curt AQUINO, ELECTRIC NEEDLE SPECIALIST-ROBERT, Beth Dash Location:[facility] Appointment Type: Open Future Scheduled Tests Laboratory* CBC w/ Auto Diff 02/07/23 * Comprehensive Metabolic Panel 02/07/23 * Lipid Panel 02/07/23 [facility]04-05-2024 Evaluation + Plan noteExtracted from: Title:Bilateral lumbar media l branch block for L4/5 and L5/S1 facets #1 Author:Cresencio Andrade DO Date:12/27/23 Diagnosis: m47.816, lumbar s pondyloarthropathy Procedure: Bilateral diagnostic lumbar medial branch blocks under fluoroscopic guidance, targeting the L4/5 and L5/S1 facet joints Anesthesia: Local Complications: none After informed consent was obtained, the patient was brought to the procedure room and placed in the prone position. The back area is prepped and draped in usual sterile fashion. Using fluoroscopic guidance skin and subcutaneous tissue overlying needle trajectories to the target sites were anesthetized with 2% lidocaine. 22- gauge needles were advanced under fluoroscopic guidance to the appropriate anatomic landmarks. Needle tip position was confirmed using fluoroscopy in at least 2 views. Injection of small amount of contrast through each needle tip revealed appropriate spread without vascular take. Subsequently, 0.5 mL of 0.5% bupivacaine was injected at each needle tip. The needles were removed. The patient was then transferred to the recovery room in stable condition. Follow-up: Should the patient have pain relief, the patient may be a candidate for radiofrequency lesioning. The patient agrees to continue currently prescribed/recommended therapies. Future Appointments Appointment Date:01/01/2024 10:30:00 AM Scheduled Provider:Jillian Aranda PA-C Location:[facility] Appointment Type:Pain Management - Follow Up (FT) Appointment Date:02/02/2024 08:00:00 AM Scheduled Provider:Curt AQUINO, ELECTRIC NEEDLE SPECIALIST-Beth JONES [facility] Type: Open Future Scheduled Tests Laboratory* CBC w/ Auto Diff 02/07/23 * Comprehensive Metabolic Panel 02/07/23 * Lipid Panel 02/07/23 [facility] 03-13-2024 Evaluation + Plan noteExtracted from: Title:L5/S1 interlaminar epi dural steroid injection Author:Cresencio Andrade DO Date:08/02/23 Diagnosis: M54.16, lumbar ra diculopathy Procedure: L5/S1 lumbar interlaminar epidural steroid injection under fluoroscopic guidance Anesthesia: Local Complications: none We had a discussion about his current pain symptoms it appears that he has some element of radicular symptoms that we are addressing today. We also discussed that based on his previous x-ray and CT imaging he also has lumbar spondyloarthropathy and his pain particular the axial component of his low back pain may be secondary to spondyloarthropathy as this is different in nature than his typical radicular symptoms or neuropathic pain features. Will discuss this further at his follow- up and it may be reasonable to consider lumbar medial branch blocks to address his arthritic pain in his low back. After informed consent was obtained, the patient was brought to the procedure suite and placed in the prone position. Pulse oximetry and blood pressure were monitored throughout. Low back areas prepped and draped in the usual sterile fashion. Using fluoroscopic guidance, the skin and subcutaneous tissue overlying the needle trajectory were anesthetized with 2% lidocaine. A 17-gauge Touhy needle was inserted and directed by fluoroscopy. Entry into the epidural space was confirmed using the cskj-fk-opbeuutgct technique and 2 cc of air. Injection of contrast revealed appropriate spread without vascular uptake. 4 mL of normal saline plus 40 mg of methylprednisolone was then injected. The needle was removed and the patient was then transferred to the recovery room in stable condition. The patient tolerated the procedure well. There were no apparent complications. Follow-up: The patient will update us on the response to this procedure, and agrees to continue currently prescribed/recommended therapies. Future Appointments Appointment Date:09/07/2023 03:30:00 PM Scheduled Provider:Cresencio Andrade DO Location:[facility] Appointment Type:Pain Management - Follow Up (FT) Appointment Date:02/02/2024 08:00:00 AM Scheduled Provider:Curt AQUINO, BERNARD-Beth JONES [facility] Appoint[facility] Type: Open Future Scheduled Tests Laboratory* CBC w/ Auto Diff 02/07/23 * Comprehensive Metabolic Panel 02/07/23 * Lipid Panel 02/07/23 [facility]03-13-2024 Note [id number] [facility] 08-02-2023 NoteDiagnosis: M54.16, lumbar radiculopathy Procedure: L5/S1 lumbar interlaminar epidural steroid injection under fluoroscopic guidance Anesthesia: Local Complications: none We had a discussion about his current pain symptoms it appears that he has some element of radicular symptoms that we are addressing today. We also discussed that based on his previous x-ray and CT imaging he also has lumbar spondyloarthropathy and his pain particular the axial component of his lowback pain may be secondary to spondyloarthropathy as this is different in nature than his typical radicular symptoms or neuropathic pain features. Will discuss this further at his follow-up and it may be reasonable to consider lumbar medial branch blocks to address his arthritic pain in his low back. After informed consent was obtained, the patient was brought to the procedure suite and placed in the prone position. Pulse oximetry and blood pressure were monitored throughout. Low back areas prepped and draped in the usual sterile fashion. Using fluoroscopic guidance, the skin and subcutaneous tissue overlying the needle trajectory were anesthetized with 2% lidocaine. A 17-gauge Touhy needle was inserted and directed by fluoroscopy. Entry into the epidural space was confirmed using the jqbx-tw-swtmfvskne technique and 2 cc of air. Injection of contrast revealed appropriate spread without vascular uptake. 4 mL of normal saline plus 40 mg of methylprednisolone was then injected. The needlewas removed and the patient was then transferred to the recovery room in stable condition. The patient tolerated the procedure well. There were no apparent complications. Follow-up: The patient will update us on the response to this procedure, and agrees to continue currently prescribed/recommended therapies.[facility] Comment on above:Result Comment: Electronically Signed By: Cresencio Andrade DO\.[place]\Date and Time Signed: 08/02/23 11:33 [id number] Hospital Discharge instructions Patient Education 07/30/2023 16:46:01 Peripheral Vascular Disease Peripheral Vascular Disease Peripheral vascular disease (PVD) is a disease of the blood vessels. PVD may also be called peripheral artery disease (PAD) or poor circulation. PVD is the blocking or hardening of the arteries anywhere within the circulatory system beyond the heart. This can result in a decreased supply of blood to the arms, legs, and internal organs, such as the stomach or kidneys. However, PVD most often affects a person's lower legs and feet. Without treatment, PVD often worsens. PVD can lead to acute limb ischemia. This occurs when an arm or leg suddenly has trouble getting enough blood. This is a medical emergency. What are the causes? The most common cause of PVD is atherosclerosis. This is a buildup of fatty material and other substances (plaque)inside your arteries. Pieces of plaque can break off from the mendoza of an artery and become stuck in a smaller artery, blocking blood flow and possibly causing acute limb ischemia. Other common causes of PVD include: Blood clots that form inside the blood vessels. Injuries to blood vessels. Diseases that cause inflammation of blood vessels or cause blood vessel tightening (spasms). What increases the risk? The following factors may make you more likely to develop this condition: A family history of PVD. Common medical conditions, including: ?High cholesterol. ?Diabetes. ?High blood pressure (hypertension). ?Heart disease. ?Known atherosclerotic disease in another area of the body. ?Past injury, such as huerta or a broken bone. Other medical conditions, such as: ?Buerger's disease. This is caused by inflamed blood vessels in your hands and feet. ?Some forms of arthritis. ? defects that affect the arteries in your legs. ?Kidney disease. Using tobacco and nicotine products. Not getting enough exercise. Obesity. Being age 65 or older, or being age 50 or older and having the other risk factors. What are the signs or symptoms? This condition may cause different symptoms. Your symptoms depend on what body part is not getting enough blood. Common signs and symptoms include: Cramps in your buttocks, legs, and feet. Intermittent claudication. This is pain and weakness in your legs during activity that resolves with rest. Leg pain at rest and leg numbness, tingling, or weakness. Coldness in a leg or foot, especially when compared to the other leg or foot. Skin or hair changes. These can include: ?Hair loss. ?Shiny skin. ?Pale or bluish skin. ?Thick toenails. Inability to get or maintain an erection (erectile dysfunction). Tiredness (fatigue). Weak pulse or no pulse in the feet. People with PVD are more likely to develop open wounds (ulcers) and sores on their toes, feet, or legs. The ulcers or sores may take longer than normal to heal. How is this diagnosed? PVD is diagnosed based on your signs and symptoms, a physical exam, and your medical history. You may also have other tests to find the cause. Tests include: Ankle-brachial index test.This test compares the blood pressure readings of the legs and arms. ?This may also include an exercise ankle-brachial index test in which you walk on a treadmill to check your symptoms. Doppler ultrasound. This takes pictures of blood flow through your blood vessels. Imaging studies that use dye to show blood flow. These are: ?CT angiogram. ?Magnetic resonance angiogram, or MRA. How is this treated? Treatment for PVD depends on the cause of your condition, how severe your symptoms are, and your age. Underlying causes need to be treated and controlled. These include long-term (chronic) conditions, such as diabetes, high cholesterol, and hypertension. Treatment may include: Lifestyle changes, such as: ?Quitting tobacco use. ?Exercising regularly. ?Following a low-fat, low-cholesterol diet. ?Not drinking alcohol. Taking medicines, such as: ?Blood thinners to prevent blood clots. ?Medicines to improve blood flow. ?Medicines to improve cholesterol levels. Procedures, such as: ?Angioplasty. This uses an inflated balloon to open a blocked artery and improve blood flow. ?Stent implant. This inserts a small mesh tube to keep a blocked artery open. ?Peripheral bypass surgery. This reroutes blood flow around a blocked artery. ?Surgery to remove tissue from an infected wound (debridement). ?Amputation. This is surgical removal of the affected limb. It may be necessary in cases of acute limb ischemia when medical or surgical treatments have not helped. Follow these instructions at home: Medicines Take elup-npb-smsezkh and prescription medicines only as told by your health care provider. If you are taking blood thinners: ?Talk with your health care provider before you take any medicines that contain aspirin or NSAIDs, such as ibuprofen. These medicines increase your risk for dangerous bleeding. ?Take your medicine exactly as told, at the same time every day. ?Avoid activities that could cause injury or bruising, and follow instructions about how to preventfalls. ?Wear a medical alert bracelet or carry a card that lists what medicines you take. Lifestyle Exercise regularly. Ask your health care provider about some good activities for you. Talk with your health care provider about maintaining a healthy weight. If needed, ask about losingweight. Eat a diet that is low in fat and cholesterol. If you need help, talk with your health care provider. Do not drink alcohol. Do not use any products that contain nicotine or tobacco. These products include cigarettes, chewing tobacco, and vaping devices, such as e-cigarettes. If you need help quitting, ask your health careprovider. General instructions Take good care of your feet. To do this: ?Wear comfortable shoes that fit well. ?Check your feet often for any cuts or sores. Get an annual influenza vaccine. Keep all follow-up visits. This is important. Where to find more information Society for Vascular Surgery: vascular.org [place] [employer]: heart.org National Heart, Lung, and Blood [place]: nhlbi.nih.gov Contact a health care provider if: You have leg cramps while walking. You have leg pain when you rest. Your leg or foot feels cold. Your skin changes color. You have erectile dysfunction. You have cuts or sores on your legs or feet that do not heal. Get help right away if: You have sudden changes in color and feeling of your arms or legs, such as: ?Your arm or leg turns cold, numb, and blue. ?Your arm or leg becomes red, warm, swollen, painful, or numb. You have any symptoms of a stroke. BE FAST is an easy way to remember the main warning signs of astroke: ?B - Balance. Signs are dizziness, sudden trouble walking, or loss of balance. ?E - Eyes. Signs are trouble seeing or a sudden change in vision. ?F - Face. Signs are sudden weakness or numbness of the face, or the face or eyelid drooping on oneside. ?A - Arms. Signs are weakness or numbness in an arm. This happens suddenly and usually on one side of the body. ?S - Speech. Signs are sudden trouble speaking, slurred speech, or trouble understanding what people say. ?T - Time. Time to call emergency services. Write down what time symptoms started. You have other signs of a stroke, such as: ?A sudden, severe headache with no known cause. ?Nausea or vomiting. ?Seizure. You have chest pain or trouble breathing. These symptoms may represent a serious problem that is an emergency. Do not wait to see if the symptoms will go away. Get medical help right away. Call your local emergency services (911 in the [place] Do not drive yourself to the hospital. Summary Peripheral vascular disease (PVD) is a disease of the blood vessels. PVD is the blocking or hardening of the arteries anywhere within the circulatory system beyond the heart. PVD may cause different symptoms. Your symptoms depend on what part of your body is not getting enough blood. Treatment for PVD depends on what caused it, how severe your symptoms are, and your age. This information is not intended to replace advice given to you by your health care provider. Make sure you discuss any questions you have with your health care provider. Document Revised: 11/09/2020 Document Reviewed: 11/09/2020 [employer] Patient Education 2022 [employer]. 07/30/2023 16:45:57 Intermittent Claudication Intermittent Claudication Intermittent claudication is pain in one leg or both legs that occurs when walking or exercising and goes away when resting. This condition is a symptom of peripheral vascular disease (PVD). PVD is adisease of the blood vessels. This condition is commonly treated with physical activity, medicine, and lifestyle changes. If medical management does not improve symptoms, surgery may be done to restore blood flow. This surgery is called revascularization. What are the causes? This condition is caused by a buildup of fatty material and other substances (plaque) within the arteries (atherosclerosis). Plaque makes arteries stiff and narrow, preventing proper blood flow to the leg muscles. Pain occurs when you walk or exercise because your muscles need more blood when you are moving and exercising but cannot get it because of poor blood flow. What increases the risk? The following factors may make you more likely to develop this condition: Smoking cigarettes. A personal history of stroke or heart disease. Age. The older you are, the higher the risk. Being inactive (sedentary lifestyle) or being overweight. A family history of atherosclerosis. Having another health condition, such as: ?Diabetes. ?High blood pressure. ?High cholesterol. What are the signs or symptoms? Symptoms of this condition can be in one leg or both legs, and can occur in the feet, calf, thigh, hip, or buttock over time. Symptoms may include: Aches or pains when walking. Cramps. A feeling of tightness, weakness, or heaviness. A wound on the lower leg or foot that heals poorly or does not heal. How is this diagnosed? This condition may be diagnosed based on: Your symptoms. Your medical history. A physical exam. Tests, such as: ?Ankle-brachial index (ZOHREH) to check blood pressure in the legs and compare it to the pressure in the arms. ?Exercise ankle-brachial test. For this test, you walk on a treadmill. Tests are done to check how the condition affects your ability to walk or exercise. ?Arterial duplex ultrasound to view how blood flows within arteries. ?CT angiogram (CTA). An X-ray machine is used to take pictures of the blood vessels after dye is injected. ?Magnetic resonance angiogram (MRA). This creates images of blood vessels and blood flow within them. ?Angiogram. In this procedure, dye is injected into arteries and then X-rays are taken. ?Blood tests. How is this treated? Treatment for this condition involves treating the underlying cause and managing risk factors, suchas high blood pressure, high cholesterol, or diabetes. Treatment may include: Lifestyle changes, such as: ?Starting a supervised or home-based exercise program. ?Losing weight. ?Quitting smoking. Medicines to help restore blood flow through your legs. If you have symptoms that affect your everyday activities, or have a wound that is not healing, treatment may include: Angioplasty to open a blocked artery using an inflated balloon. Stent implant to open a blocked artery using a mesh-like tube. Surgery to restore blood flow by creating a bypass around a blocked area. Follow these instructions at home: Lifestyle Maintain a healthy weight. Eat a diet that is low in saturated fats and calories. Consider working with a dietitianto help youmake healthy food choices. Do not use any products that contain nicotine or tobacco. These products include cigarettes, chewing tobacco, and vaping devices, such as e-cigarettes. If you need help quitting, ask your health careprovider. If your health care provider recommended an exercise program for you, follow it as directed. Your exercise program may involve: ?Walking three or more times a week. ?Walking until you have certain symptoms of intermittent claudication, resting until your symptoms go away, and then resuming your walk. ?Gradually increasing your total walking time to about 50 minutes a day. General instructions Work with your health care provider to manage other health conditions that may increase your risk, including diabetes, high blood pressure, or high cholesterol. Take lqsc-eux-fscegnq and prescription medicines only as told by your health care provider. Keep all follow-up visits. This is important. Contact a health care provider if: Your pain does not go away with rest. You have sores on your legs that do not heal or have pus or a bad smell. Your condition gets worse or does not improve with treatment. Get help right away if: You have chest pain. You have trouble breathing. Your foot or leg is cold or it changes color. Your foot or leg becomes numb. You have any symptoms of a stroke. BE FAST is an easy way to remember the main warning signs of astroke: ?B - Balance. Signs are dizziness, sudden trouble walking, or loss of balance. ?E - Eyes. Signs are trouble seeing or a sudden change in vision. ?F - Face. Signs are sudden weakness or numbness of the face, or the face or eyelid drooping on oneside. ?A - Arms. Signs are weakness or numbness in an arm. This happens suddenly and usually on one side of the body. ?S - Speech. Signs are sudden trouble speaking, slurred speech, or trouble understanding what people say. ?T - Time. Time to call emergency services. Write down what time symptoms started. You have other signs of a stroke, such as: ?A sudden, severe headache with no known cause. ?Nausea or vomiting. ?Seizure. These symptoms may represent a serious problem that is an emergency. Do not wait to see if the symptoms resolve. Get medical help right away. Call your local emergency services (911 in the [place]). Do not drive yourself to the hospital. Summary Intermittent claudication is pain in the leg or legs that occurs when walking or exercising and goes away when resting. This condition is caused by a buildup of plaque in the arteries. Plaque makes arteries stiff and narrow, which prevents proper blood flow to the leg. Intermittent claudication can be treated with medicine and lifestyle changes. If these fail, surgery may be done to restore blood flow to the affected area. Work with your health care provider to manage other health conditions you may have, including diabetes, high blood pressure, or high cholesterol. This information is not intended to replace advice given to you by your health care provider. Make sure you discuss any questions you have with your health care provider. Document Revised: 11/09/2020 Document Reviewed: 11/09/2020 [employer] Patient Education 2022 Pretty Simple. 07/30/2023 16:45:52 Health Risks of Smoking Health Risks of Smoking Smoking tobacco is very bad for your health. Tobacco smoke contains many toxic chemicals that can damage every part of your body. Secondhand smoke can be harmful to those around you. Tobacco or nicotine use can cause many long-term (chronic) diseases. Smoking is difficult to quit because a chemical in tobacco, called nicotine, causes addiction or dependence. When you smoke and inhale, nicotine is absorbed quickly into your bloodstream through yourlungs. Both inhaled and non-inhaled nicotine may be addictive. How can quitting affect me? There are health benefits of quitting smoking. Some benefits happen right away and others take time. Benefits may include: Blood flow, blood pressure, heart rate, and lung capacity may begin to improve. However, any lung damage that has already occurred cannot be repaired. Respiratory symptoms from smoking, such as nasal congestion and cough, may improve over time. Your risk of heart disease, stroke, and cancer is reduced. The overall quality of your health may improve. You may save money, as you will not spend money on tobacco products and may spend less money on smoking-related health issues. What can increase my risk? Smoking harms nearly every organ in the body. People who smoke tobacco have a shorter life expectancy and an increased risk of many serious medical problems. These include: More respiratory infections, such as colds and pneumonia. Cancer. Heart disease. Stroke. Chronic respiratory diseases. Delayed wound healing and increased risk of complications during surgery. Problems with reproduction, , and childbirth, such as infertility, early (premature) births, stillbirths, and defects. Secondhand smoke exposure to children increases the risk of: Sudden infant syndrome (SIDS). Infections in the nose, throat, or airways (respiratory infections). Chronic respiratory symptoms. What actions can I take to quit? Smoking is an addiction that affects both your body and your mind, and long-time habits can be hardto change. Your health care provider can recommend: Nicotine replacement products, such as patches, gum, and nasal sprays. Use these products only as directed. Do not replace cigarette smoking with electronic cigarettes, which are commonly called e-cigarettes. The safety of e-cigarettes is not known, and some may contain harmful chemicals. Programs and community resources, which may include group support, education, or talk therapy. Prescription medicines to help reduce cravings. A combination of two or more quit methods, which may increase the success of quitting. Where to find support Follow the recommendations from your health care provider about support groups and other assistance. You can also visit: U.[place]. Department of Health and Human Services: www.smokefree.gov [place] [employer]: www.freedomfromsmoking.org [place] [employer] Association: www.heart.org Where to find more information Centers for Disease Control and Prevention: www.cdc.gov World Health Organization: www.who.int Summary Smoking tobacco is very bad for your health. Tobacco smoke contains many toxic chemicals that can damage every part of the body. Smoking is difficult to quit because a chemical in tobacco, called nicotine, causes addiction or dependence. There are immediate and long-term health benefits of quitting smoking. A combination of two or more quit methods may increase the success of quitting. This information is not intended to replace advice given to you by your health care provider. Make sure you discuss any questions you have with your health care provider. Document Revised: 05/10/2022 Document Reviewed: 05/10/2022 [employer] Patient Education 2022 Pretty Simple. 07/30/2023 16:45:51 DASH Eating Plan DASH Eating Plan DASH stands for Dietary Approaches to Stop Hypertension. The DASH eating plan is a healthy eating plan that has been shown to: Reduce high blood pressure (hypertension). Reduce your risk for type 2 diabetes, heart disease, and stroke. Help with weight loss. What are tips for following this plan? Reading food labels Check food labels for the amount of salt (sodium) per serving. Choose foods with less than 5 percent of the Daily Value of sodium. Generally, foods with less than 300 milligrams (mg) of sodium per serving fit into this eating plan. To find whole grains, look for the word whole as the first word in the ingredient list. Shopping Buy products labeled as low-sodium or no salt added. Buy fresh foods. Avoid canned foods and pre-made or frozen meals. Cooking Avoid adding salt when cooking. Use salt-free seasonings or herbs instead of table salt or sea salt. Check with your health care provider or pharmacist before using salt substitutes. Do not kaur foods. Cook foods using healthy methods such as baking, boiling, grilling, roasting, andbroiling instead. Cook with heart-healthy oils, such as olive, canola, avocado, soybean, or sunflower oil. Meal planning Eat a balanced diet that includes: ?4 or more servings of fruits and 4 or more servings of vegetables each day. Try to fill one-half of your plate with fruits and vegetables. ?6 8 servings of whole grains each day. ?Less than 6 oz (170 g) of lean meat, poultry, or fish each day. A 3-oz (85-g) serving of meat is about the same size as a deck of cards. One egg equals 1 oz (28 g). ?2 3 servings of low-fat dairy each day. One serving is 1 cup (237 mL). ?1 serving of nuts, seeds, or beans 5 times each week. ?2 3 servings of heart-healthy fats. Healthy fats called omega-3 fatty acids are found in foods such as walnuts, flaxseeds, fortified milks, and eggs. These fats are also found in cold-water fish, such as sardines, salmon, and mackerel. Limit how much you eat of: ?Canned or prepackaged foods. ?Food that is high in trans fat, such as some fried foods. ?Food that is high in saturated fat, such as fatty meat. ?Desserts and other sweets, sugary drinks, and other foods with added sugar. ?Full-fat dairy products. Do not salt foods before eating. Do not eat more than 4 egg yolks a week. Try to eat at least 2 vegetarian meals a week. Eat more home-cooked food and less restaurant, buffet, and fast food. Lifestyle When eating at a restaurant, ask that your food be prepared with less salt or no salt, if possible. If you drink alcohol: ?Limit how much you use to: ?0 1 drink a day for women who are not . ?0 2 drinks a day for men. ?Be aware of how much alcohol is in your drink. In the [place] one drink equals one 12 oz bottle of beer (355 mL), one 5 oz glass of wine (148 mL), or one 1 oz glass of hard liquor (44 mL). General information Avoid eating more than 2,300 mg of salt a day. If you have hypertension, you may need to reduce your sodium intake to 1,500 mg a day. Work with your health care provider to maintain a healthy body weight or to lose weight. Ask what an ideal weight is for you. Get at least 30 minutes of exercise that causes your heart to beat faster (aerobic exercise) most days of the week. Activities may include walking, swimming, or biking. Work with your health care provider or dietitian to adjust your eating plan to your individual calorie needs. What foods should I eat? Fruits All fresh, dried, or frozen fruit. Canned fruit in natural juice (without added sugar). Vegetables Fresh or frozen vegetables (raw, steamed, roasted, or grilled). Low-sodium or reduced-sodium tomatoand vegetable juice. Low-sodium or reduced-sodium tomato sauce and tomato paste. Low-sodium or reduced-sodium canned vegetables. Grains Whole-grain or whole-wheat bread. Whole-grain or whole-wheat pasta. Brown rice. Oatmeal. Quinoa. Bulgur. Whole-grain and low-sodium cereals. Parris bread. Low- fat, low-sodium crackers. Whole-wheat flour tortillas. Meats and other proteins Skinless chicken or turkey. Ground chicken or turkey. Pork with fat trimmed off. Fish and seafood. Egg whites. Dried beans, peas, or lentils. Unsalted nuts, nut butters, and seeds. Unsalted canned beans. Lean cuts of beef with fat trimmed off. Low-sodium, lean precooked or cured meat, such as sausages or meat loaves. Dairy Low-fat (1%) or fat-free (skim) milk. Reduced-fat, low-fat, or fat-free cheeses. Nonfat, low-sodiumricotta or cottage cheese. Low-fat or nonfat yogurt. Low-fat, low-sodium cheese. Fats and oils Soft margarine without trans fats. Vegetable oil. Reduced-fat, low-fat, or light mayonnaise and salad dressings (reduced-sodium). Canola, safflower, olive, avocado, soybean, and sunflower oils. Avocado. Seasonings and condiments Herbs. Spices. Seasoning mixes without salt. Other foods Unsalted popcorn and pretzels. Fat-free sweets. The items listed above may not be a complete list of foods and beverages you can eat. Contact a dietitian for more information. What foods should I avoid? Fruits Canned fruit in a light or heavy syrup. Fried fruit. Fruit in cream or butter sauce. Vegetables Creamed or fried vegetables. Vegetables in a cheese sauce. Regular canned vegetables (not low-sodium or reduced-sodium). Regular canned tomato sauce and paste (not low-sodium or reduced-sodium). Regular tomato and vegetable juice (not low-sodium or reduced-sodium). Pickles. Olives. Grains Baked goods made with fat, such as croissants, muffins, or some breads. Dry pasta or rice meal packs. Meats and other proteins Fatty cuts of meat. Ribs. Fried meat. Cordon. Bologna, salami, and other precooked or cured meats, such as sausages or meat loaves. Fat from the back of a pig (fatback). Bratwurst. Salted nuts and seeds. Canned beans with added salt. Canned or smoked fish. Whole eggs or egg yolks. Chicken or turkey with skin. Dairy Whole or 2% milk, cream, and tbiw-ptt-itdc. Whole or full-fat cream cheese. Whole-fat or sweetened yogurt. Full-fat cheese. Nondairy creamers. Whipped toppings. Processed cheese and cheese spreads. Fats and oils Butter. Stick margarine. Lard. Shortening. Ghee. Cordon fat. Tropical oils, such as coconut, palm kernel, or palm oil. Seasonings and condiments Onion salt, garlic salt, seasoned salt, table salt, and sea salt. [facility] sauce. Tartar sauce. Barbecue sauce. Teriyaki sauce. Soy sauce, including reduced-sodium. Steak sauce. Canned and packaged gravies. Fish sauce. Oyster sauce. Cocktail sauce. Store-bought horseradish. Ketchup. Mustard. Meat flavorings and tenderizers. Bouillon cubes. Hot sauces. Pre-made or packaged marinades. Pre-made or packaged taco seasonings. Relishes. Regular salad dressings. Other foods Salted popcorn and pretzels. The items listed above may not be a complete list of foods and beverages you should avoid. Contact a dietitian for more information. Where to find more information National Heart, Lung, [employer] [place]: www.nhlbi.nih.gov [place] [employer] Association: www.heart.org Academy of Nutrition and Dietetics: www.eatright.org National Kidney Foundation: www.kidney.org Summary The DASH eating plan is a healthy eating plan that has been shown to reduce high blood pressure (hypertension). It may also reduce your risk for type 2 diabetes, heart disease, and stroke. When on the DASH eating plan, aim to eat more fresh fruits and vegetables, whole grains, lean proteins, low-fat dairy, and heart-healthy fats. With the DASH eating plan, you should limit salt (sodium) intake to 2,300 mg a day. If you have hypertension, you may need to reduce your sodium intake to 1,500 mg a day. Work with your health care provider or dietitian to adjust your eating plan to your individual calorie needs. This information is not intended to replace advice given to you by your health care provider. Make sure you discuss any questions you have with your health care provider. Document Revised: 04/10/2020 Document Reviewed: 04/10/2020 [employer] Patient Education 2022 Pretty Simple. Follow Up Care 05/02/2023 10:10:57 With:Curt AQUINO, ELECTRIC NEEDLE SPECIALIST-REACTOR SERVICE OPERATOR, Beth Dash Address: [address] [place], [place] [id number] When:Within 6 Month(s) Comments:chronic care [facility] [place] 01-26-2024 Evaluation + Plan noteExtracted from: Title:Pain Managment Follow up Author:Jillian Greene Date:06/16/23 Patient: DENVER PERDUE Age: 62 years Sex: Male : 1960 Associated Diagnoses: None Author: Jillian Aranda PA-C Subjective Chief complaint 06/16/2023 7:49 EST lower back pain . Patient is a 62-year-old male. He presents today for another follow-up after undergoing an L5-S1 epidural steroid injection. This was done on 03/21/2023 and gave him 65% relief. He still has 50% relief but he is noticing that some of the pain is returning so he wants to get the ball rolling and get on the schedule to have another injection as soon as possible. He has lower back pain with Bilateral leg pain. He rates it a 5 10/10. He is using gabapentin. mg 3 times a day. He also uses baclofen. Up to 10 mg 3 times a day as needed pain. These 2 medications do help him. He tolerates them well. He is requesting refills. He never did get a second opinion and he still feels that he would like to get second opinion as he would like to get this taken care of . Health Status Allergies: Allergic Reactions (Selected) No Known Allergies No Known Medication Allergies, Allergies (2) ActiveReaction No Known AllergiesNone Documented No Known Medication AllergiesNone Documented Current medications: (Selected) Prescriptions Prescribed Protonix 40 mg Tab-DR: 40 mg = 1 tab(s), Oral, Daily, # 90 tab(s), Refills(s) 3, Pharmacy: [facility] #[id number], 178, cm, 07/22/22 14:01:00 EST, Height/Length Dosing, 80.9, kg, 07/22/22 14:01:00 EST, Weight Dosing atorvastatin 20 mg Tab: 20 mg = 1 tab(s), Oral, Daily, # 90 tab(s), Refills(s) 3, Pharmacy: [facility] #[id number], 178, cm, 05/02/23 9:17:00 EST, Height/Length Dosing, 84.2, kg, 05/02/23 9:17:00 EST, Weight Dosing buPROPion 150 mg ER Tab: 150 mg = 1 tab(s), Oral, BID, # 60 tab(s), Refills(s) 3, [facility]acy: [facility] #[id number], 178, cm, 05/02/23 9:17:00 EST, Height/Length Dosing, 84.2, kg, 05/02/23 9:17:00 EST, Weight Dosing pregabalin 100 mg Cap: 100 mg = 1 cap(s), Oral, TID, take twice a day for one week. If doing ok go to TID. DC GPN, # 90 cap(s), Refills(s) 0, Pharmacy: [facility] #[id number], 178, cm, 10/14/22 8:44:00 EDT, Height/Length Dosing, 73, kg, 10/14/22 8:44:00 EDT, Weight D... ropinirole 1 mg Tab: 1 mg = 1 tab(s), Oral, Daily, 1 to 3 hours before bedtime, # 90 tab(s), Refills(s) 0, Pharmacy: [facility] #[id number], 178, cm, 05/02/23 9:17:00 EST, Height/Length Dosing, 84.2, kg, 05/02/23 9:17:00 EST, Weight Dosing triamcinolone Top 0.1% Oint: 1 ted, Topical, TID Dry skin, 30 gm, Refill(s) 0, [facility] #[id number], 178, cm, 07/22/22 14:01:00 EST, Height/Length Dosing, 80.9, kg, 07/22/22 14:01:00 EST, Weight Dosing Documented Medications Documented Metoprolol succinate 25 mg ER Tablet: Refills(s) 0 Plavix 75 mg Tab: 75 mg = 1 tab(s), Oral, Daily, Refills(s) 0 Tylenol: Refills(s) 0 cilostazol 100 mg Tab: TAKE 1 TABLET BY MOUTH TWICE DAILY Problem list: All Problems Sciatica / SNOMED CT 72977900 / Confirmed GERD (gastroesophageal reflux disease) / SNOMED CT 017229026 / Confirmed Pain in joint, multiple sites / SNOMED CT 633066535 / Confirmed Kidney stone on left side / SNOMED CT 778885174 / Confirmed AAA (abdominal aortic aneurysm) / SNOMED CT 954861239 / Confirmed PAD (peripheral artery disease) / SNOMED CT 2327218549 / Confirmed Hypocalcemia / SNOMED CT 2283470 / Confirmed Anticoagulated / SNOMED CT 646950549 / Confirmed Lumbar radiculopathy / SNOMED CT 737179930 / Confirmed Cigarette nicotine dependence / SNOMED CT 62785289 / Confirmed Prostate cancer screening / SNOMED CT 266896764 / Confirmed Combined hyperlipidemia / SNOMED CT 466771074 / Confirmed History of diverticular abscess of colon / SNOMED CT 2595218387 / Confirmed Benign essential HTN / SNOMED CT 0777388 / Confirmed Actinic keratoses / SNOMED CT 0964500424 / Confirmed Restless leg syndrome / SNOMED CT 94891548 / Confirmed 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 Canceled: Smoker / SNOMED CT 1348244309 Added secondary to documentation in Social History. Canceled: Left hip pain / SNOMED CT 55269773 Canceled: Lumbar back pain / SNOMED CT 024884350 Canceled: Dyspepsia / SNOMED CT 662690163 Canceled: Screening for lipoid disorders / SNOMED CT 778550910 Canceled: Tobacco use disorder / SNOMED CT 485427890 Canceled: Smoker / SNOMED CT 063813215 Added secondary to documentation in Social History. Canceled: Left lower quadrant pain / SNOMED CT 508552268 Canceled: Abdominal aortic aneurysm, without rupture / SNOMED CT 493753679 Canceled: Smoker / SNOMED CT 682176805 Added secondary to documentation in Social History. Canceled: Generalized abdominal pain / SNOMED CT 605327592 Canceled: Acute constipation / SNOMED CT 201440987 Canceled: BMI 23.0-23.9, adult / SNOMED CT 1749706821 Canceled: Acute diverticulitis / SNOMED CT 2377523345 Canceled: BMI 22.0-22.9, adult / SNOMED CT 6368288182 Canceled: Diverticulitis of sigmoid colon / SNOMED CT 4061932594 Canceled: Abscess of sigmoid colon / SNOMED CT 0445523948 Canceled: Smoker / SNOMED CT 439792077 Added secondary to documentation in Social History. Canceled: BMI 23.0-23.9, adult / SNOMED CT 9691417382 Canceled: Cigarette smoker / SNOMED CT 998706490 Canceled: Dry skin dermatitis / SNOMED CT 887882402 Canceled: BMI 24.0-24.9, adult / SNOMED CT 8598364763 Canceled: Laceration of left thigh / SNOMED CT 825706266 Canceled: Senile purpura / SNOMED CT 03310755 Canceled: Colon cancer screening / SNOMED CT 139578769 Canceled: Cellulitis of right hand excluding fingers and thumb / SNOMED CT 237944270 Canceled: Screening for malignant neoplasm of colon / SNOMED CT 584976152 Canceled: Sore throat / SNOMED CT 676207509 Canceled: Oral thrush / SNOMED CT 777870879 Canceled: Skin lesion of hand / SNOMED CT 0167811897 Canceled: Lipid screening / SNOMED CT 441088474 Canceled: Medication management / SNOMED CT 465269307 Canceled: Diabetes mellitus screening / SNOMED CT 730389558 Objective Vital Signs 06/16/2023 7:49 EST Peripheral Pulse Rate 66 bpm Respiratory Rate 14 br/min Systolic Blood Pressure 153 mmHg HI Diastolic Blood Pressure 83 mmHg Mean Arterial Pressure, Cuff 106 mmHg General: Alert and oriented, No acute distress. Eye: Normal conjunctiva. HENT: Normocephalic, Normal hearing. Cardiovascular: No edema. Musculoskeletal Normal range of motion. Normal strength. 5/5 lower extremity strength Integumentary: Warm, Dry, [place]. Neurologic: Alert, Oriented. Psychiatric: Cooperative, Appropriate mood & affect. Results Review CT scan. 02/02/2023. L3-4 disc bulge/herniation affecting the right-sided nerve. L4-5 disc bulge affecting the left-sided nerve. Moderate stenosis. L5-S1 bilateral neural foraminal narrowing. Impression and Plan Patient is a 62-year-old male with a past medical history significant for lumbar stenosis, lumbar neuritis, lumbar degenerative disease, lumbar disc bulge and lumbar spondylosis. We once again discussed referral for second opinion as he did not do this at the end of last year because of insurance changes. He would like to get set up for this so we will set him up locally with Dr. Tilley. In regards to his injection he underwent previous L5-S1 epidural steroid injection with significant improvement. He still has 50% relief from this but wants to get set up to have this done once again as he is noticing that, the pain is returning. We once again reviewed the imaging. We discussed repeating the L5-S1 epidural injection under fluoroscopy for both diagnostic and therapeutic purposes. Procedure was discussed. Risk and benefits were discussed. Patient is agreeable. He will follow-up 2 weeks after the injection for reevaluation. Call clinic sooner if necessary. In the meantime he will continue on gabapentin and baclofen. OARRS reviewed. Refill sent to the pharmacy. BARRETT score: 70% Addendum by Jillian Aranda PA-C on May 8:20 EST 600 mg of GPN Future Appointments Appointment Date:08/01/2023 08:00:00 AM Scheduled Provider:[facility] Anders Tammy L. [facility] App[facility] Type: Open Future Scheduled Tests Laboratory* CBC w/ Auto Diff 02/07/23 * Comprehensive Metabolic Panel 02/07/23 * Lipid Panel 02/07/23 [facility]11-17-2023 Evaluation + Plan noteExtracted from: Title:Pain Managment Follow up Author:Jillian Greene Date:04/07/23 Impression and Plan Patient is a 62-year-old male with a past medical history significant for lumbar stenosis, lumbar neuritis, lumbar degenerative disease, lumbar disc bulge, and lumbar foraminal stenosis. Recent L5-S1 epidural steroid injection gave him 65% relief. He states that things are better. It still is not perfect but better than before. He would like to get a second opinion from a surgeon. We will facilitate a referral. He wants to check with his insurance company to see who would be covered he will let us know. In the meantime, he is going to continue on gabapentin 1200 mg 3 times a day and baclofen 10 mg up to 3 times a day. He tolerates both these well. They do also help him. OARRS reviewed. Refill sent to the pharmacy per his request. Follow-up in 24 May 2023 to discuss repeating the injection should it be necessary as he states that he does not want to have to wait around. If he wants to do get it done again he wants to be able to do this. BARRETT score: 64% Future Appointments Appointment Date:05/09/2023 11:00:00 AM Scheduled Provider:CRICKET Anders Tammy L. Location:[facility] Appointment Type: Open Appointment Date:06/16/2023 07:45:00 AM Scheduled Provider:Jillian Aranda PA-C Location:[facility] Appointment Type:Pain Management - Follow Up (FT) Future Scheduled Tests Laboratory* CBC w/ Auto Diff 02/07/23 * Comprehensive Metabolic Panel 02/07/23 * Lipid Panel 02/07/23 [facility]10-31-2023 Note [id number] [facility] 02-10-2023 Evaluation + Plan noteExtracted from: Title:Pain Managment Follow up Author:Jillian Greene Date:02/10/23 Impression and Plan Patient is a 62-year-old male with a past medical history significant for lumbar stenosis, lumbar neuritis, lumbar degenerative disease, lumbar disc bulge, and lumbar foraminal stenosis. We reviewed the lumbar CT scan. We had a long session of his pain. We had a long assessment his options. He has previously failed all other reasonable conservative treatments. Patient states that he is significantly debilitated because of all the pain that he is experiencing. Based on his CT findings, his pain pattern and his physical examination I would recommend an L5- S1 epidural steroid injection for both diagnostic and therapeutic purposes. Procedure was discussed. Risks and benefits were discussed. Patient is agreeable. He will follow-up 2 weeks after the injection for reevaluation. Call the clinic sooner if necessary. Patient did inquire about having us do something permanent to help his pain permanently. I discussed with him referral to a surgeon but he states that he saw a previous surgeon and they told him that he did not need surgery and in fact, to have that appointment he canceled an appointment with us and then when he needed a refill I would not give it to him . At this time, he does not require refill of the gabapentin. OARRS was reviewed. He will call when he does. BARRETT score: 86% Future Appointments Appointment Date:05/09/2023 11:00:00 AM Scheduled Provider:Curt AQUINO, ELECTRIC NEEDLE SPECIALIST-ROBERT, Beth Dash Location:[facility] Appointment Type: Open Future Scheduled Tests Laboratory* CBC w/ Auto Diff 02/07/23 * Comprehensive Metabolic Panel 02/07/23 * Lipid Panel 02/07/23 [facility]09-18-2023 Hospital Discharge instructions Patient Education 02/06/2023 18:30:10 High Cholesterol High Cholesterol High cholesterol is a condition in which the blood has high levels of a white, waxy substance similar to fat (cholesterol). The liver makes all the cholesterol that the body needs. The human body needs small amounts of cholesterol to help build cells. A person gets extra or excess cholesterol from the food that he or she eats. The blood carries cholesterol from the liver to the rest of the body. If you have high cholesterol,deposits (plaques) may build up on the mendoza of your arteries. Arteries are the blood vessels that carry blood away from your heart. These plaques make the arteries narrow and stiff. Cholesterol plaques increase your risk for heart attack and stroke. Work with your health care provider to keep your cholesterol levels in a healthy range. What increases the risk? The following factors may make you more likely to develop this condition: Eating foods that are high in animal fat (saturated fat) or cholesterol. Being overweight. Not getting enough exercise. A family history of high cholesterol (familial hypercholesterolemia). Use of tobacco products. Having diabetes. What are the signs or symptoms? In most cases, high cholesterol does not usually cause any symptoms. In severe cases, very high cholesterol levels can cause: Fatty bumps under the skin (xanthomas). A white or williamson ring around the black center (pupil) of the eye. How is this diagnosed? This condition may be diagnosed based on the results of a blood test. If you are older than 20 years of age, your health care provider may check your cholesterol levels every 4 6 years. You may be checked more often if you have high cholesterol or other risk factors for heart disease. The blood test for cholesterol measures: Bad cholesterol, or LDL cholesterol. This is the main type of cholesterol that causes heart disease. The desired level is less than 100 mg/dL (2.59 mmol/L). Good cholesterol, or HDL cholesterol. HDL helps protect against heart disease by cleaning the arteries and carrying the LDL to the liver for processing. The desired level for HDL is 60 mg/dL (1.55 mmol/L) or higher. Triglycerides. These are fats that your body can store or burn for energy. The desired level is less than 150 mg/dL (1.69 mmol/L). Total cholesterol. This measures the total amount of cholesterol in your blood and includes LDL, HDL, and triglycerides. The desired level is less than 200 mg/dL (5.17 mmol/L). How is this treated? Treatment for high cholesterol starts with lifestyle changes, such as diet and exercise. Diet changes. You may be asked to eat foods that have more fiber and less saturated fats or added sugar. Lifestyle changes. These may include regular exercise, maintaining a healthy weight, and quitting use of tobacco products. Medicines. These are given when diet and lifestyle changes have not worked. You may be prescribed astatin medicine to help lower your cholesterol levels. Follow these instructions at home: Eating and drinking Eat a healthy, balanced diet. This diet includes: ? Daily servings of a variety of fresh, frozen, or canned fruits and vegetables. ?Daily servings of whole grain foods that are rich in fiber. ?Foods that are low in saturated fats and trans fats. These include poultry and fish without skin, lean cuts of meat, and low-fat dairy products. ?A variety of fish, especially oily fish that contain omega-3 fatty acids. Aim to eat fish at least2 times a week. Avoid foods and drinks that have added sugar. Use healthy cooking methods, such as roasting, grilling, broiling, baking, poaching, steaming, and stir-frying. Do not kaur your food except for stir-frying. If you drink alcohol: ?Limit how much you have to: ?0 1 drink a day for women who are not . ?0 2 drinks a day for men. ?Know how much alcohol is in a drink. In the [place] one drink equals one 12 oz bottle of beer (355 mL), one 5 oz glass of wine (148 mL), or one 1 oz glass of hard liquor (44 mL). Lifestyle Get regular exercise. Aim to exercise for a total of 150 minutes a week. Increase your activity level by doing activities such as gardening, walking, and taking the stairs. Do not use any products that contain nicotine or tobacco. These products include cigarettes, chewing tobacco, and vaping devices, such as e-cigarettes. If you need help quitting, ask your health careprovider. General instructions Take vtxh-kmh-obnvcyk and prescription medicines only as told by your health care provider. Keep all follow-up visits. This is important. Where to find more information [place] [employer]: www.heart.org National Heart, Lung, and Blood [place]: www.nhlbi.nih.gov Contact a health care provider if: You have trouble achieving or maintaining a healthy diet or weight. You are starting an exercise program. You are unable to stop smoking. Get help right away if: You have chest pain. You have trouble breathing. You have discomfort or pain in your jaw, neck, back, shoulder, or arm. You have any symptoms of a stroke. BE FAST is an easy way to remember the main warning signs of astroke: ?B - Balance. Signs are dizziness, sudden trouble walking, or loss of balance. ?E - Eyes. Signs are trouble seeing or a sudden change in vision. ?F - Face. Signs are sudden weakness or numbness of the face, or the face or eyelid drooping on oneside. ?A - Arms. Signs are weakness or numbness in an arm. This happens suddenly and usually on one side of the body. ?S - Speech. Signs are sudden trouble speaking, slurred speech, or trouble understanding what people say. ?T - Time. Time to call emergency services. Write down what time symptoms started. You have other signs of a stroke, such as: ?A sudden, severe headache with no known cause. ?Nausea or vomiting. ?Seizure. These symptoms may represent a serious problem that is an emergency. Do not wait to see if the symptoms will go away. Get medical help right away. Call your local emergency services (911 in the [place] Do not drive yourself to the hospital. Summary Cholesterol plaques increase your risk for heart attack and stroke. Work with your health care provider to keep your cholesterol levels in a healthy range. Eat a healthy, balanced diet, get regular exercise, and maintain a healthy weight. Do not use any products that contain nicotine or tobacco. These products include cigarettes, chewing tobacco, and vaping devices, such as e-cigarettes. Get help right away if you have any symptoms of a stroke. This information is not intended to replace advice given to you by your health care provider. Make sure you discuss any questions you have with your health care provider. Document Revised: 07/22/2021 Document Reviewed: 07/12/2021 [employer] Patient Education 2022 [employer] 02/06/2023 18:30:06 Health Risks of Smoking Health Risks of Smoking Smoking tobacco is very bad for your health. Tobacco smoke contains many toxic chemicals that can damage every part of your body. Secondhand smoke can be harmful to those around you. Tobacco or nicotine use can cause many long-term (chronic) diseases. Smoking is difficult to quit because a chemical in tobacco, called nicotine, causes addiction or dependence. When you smoke and inhale, nicotine is absorbed quickly into your bloodstream through yourlungs. Both inhaled and non-inhaled nicotine may be addictive. How can quitting affect me? There are health benefits of quitting smoking. Some benefits happen right away and others take time. Benefits may include: Blood flow, blood pressure, heart rate, and lung capacity may begin to improve. However, any lung damage that has already occurred cannot be repaired. Respiratory symptoms from smoking, such as nasal congestion and cough, may improve over time. Your risk of heart disease, stroke, and cancer is reduced. The overall quality of your health may improve. You may save money, as you will not spend money on tobacco products and may spend less money on smoking-related health issues. What can increase my risk? Smoking harms nearly every organ in the body. People who smoke tobacco have a shorter life expectancy and an increased risk of many serious medical problems. These include: More respiratory infections, such as colds and pneumonia. Cancer. Heart disease. Stroke. Chronic respiratory diseases. Delayed wound healing and increased risk of complications during surgery. Problems with reproduction, , and childbirth, such as infertility, early (premature) births, stillbirths, and defects. Secondhand smoke exposure to children increases the risk of: Sudden syndrome (SIDS). Infections in the nose, throat, or airways (respiratory infections). Chronic respiratory symptoms. What actions can I take to quit? Smoking is an addiction that affects both your body and your mind, and long-time habits can be hardto change. Your health care provider can recommend: Nicotine replacement products, such as patches, gum, and nasal sprays. Use these products only as directed. Do not replace cigarette smoking with electronic cigarettes, which are commonly called e-cigarettes. The safety of e-cigarettes is not known, and some may contain harmful chemicals. Programs and community resources, which may include group support, education, or talk therapy. Prescription medicines to help reduce cravings. A combination of two or more quit methods, which may increase the success of quitting. Where to find support Follow the recommendations from your health care provider about support groups and other assistance. You can also visit: [place]. Department of Health and Human Services: www.smokefree.gov [place] [employer] Association: www.freedomfromsmoking.org [place] Heart Association: www.heart.org Where to find more information Centers for Disease Control and Prevention: www.cdc.gov World Health Organization: www.who.int Summary Smoking tobacco is very bad for your health. Tobacco smoke contains many toxic chemicals that can damage every part of the body. Smoking is difficult to quit because a chemical in tobacco, called nicotine, causes addiction or dependence. There are immediate and long-term health benefits of quitting smoking. A combination of two or more quit methods may increase the success of quitting. This information is not intended to replace advice given to you by your health care provider. Make sure you discuss any questions you have with your health care provider. Document Revised: 05/10/2022 Document Reviewed: 05/10/2022 [employer] Patient Education 2022 [employer]. 02/06/2023 18:30:05 DASH Eating Plan DASH Eating Plan DASH stands for Dietary Approaches to Stop Hypertension. The DASH eating plan is a healthy eating plan that has been shown to: Reduce high blood pressure (hypertension). Reduce your risk for type 2 diabetes, heart disease, and stroke. Help with weight loss. What are tips for following this plan? Reading food labels Check food labels for the amount of salt (sodium) per serving. Choose foods with less than 5 percent of the Daily Value of sodium. Generally, foods with less than 300 milligrams (mg) of sodium per serving fit into this eating plan. To find whole grains, look for the word whole as the first word in the ingredient list. Shopping Buy products labeled as low-sodium or no salt added. Buy fresh foods. Avoid canned foods and pre-made or frozen meals. Cooking Avoid adding salt when cooking. Use salt-free seasonings or herbs instead of table salt or sea salt. Check with your health care provider or pharmacist before using salt substitutes. Do not kaur foods. Cook foods using healthy methods such as baking, boiling, grilling, roasting, andbroiling instead. Cook with heart-healthy oils, such as olive, canola, avocado, soybean, or sunflower oil. Meal planning Eat a balanced diet that includes: ?4 or more servings of fruits and 4 or more servings of vegetables each day. Try to fill one-half of your plate with fruits and vegetables. ?6 8 servings of whole grains each day. ?Less than 6 oz (170 g) of lean meat, poultry, or fish each day. A 3-oz (85-g) serving of meat is about the same size as a deck of cards. One egg equals 1 oz (28 g). ?2 3 servings of low-fat dairy each day. One serving is 1 cup (237 mL). ?1 serving of nuts, seeds, or beans 5 times each week. ?2 3 servings of heart-healthy fats. Healthy fats called omega-3 fatty acids are found in foods such as walnuts, flaxseeds, fortified milks, and eggs. These fats are also found in cold-water fish, such as sardines, salmon, and mackerel. Limit how much you eat of: ?Canned or prepackaged foods. ?Food that is high in trans fat, such as some fried foods. ?Food that is high in saturated fat, such as fatty meat. ?Desserts and other sweets, sugary drinks, and other foods with added sugar. ?Full-fat dairy products. Do not salt foods before eating. Do not eat more than 4 egg yolks a week. Try to eat at least 2 vegetarian meals a week. Eat more home-cooked food and less restaurant, buffet, and fast food. Lifestyle When eating at a restaurant, ask that your food be prepared with less salt or no salt, if possible. If you drink alcohol: ?Limit how much you use to: ?0 1 drink a day for women who are not . ?0 2 drinks a day for men. ?Be aware of how much alcohol is in your drink. In the [place] one drink equals one 12 oz bottle of beer (355 mL), one 5 oz glass of wine (148 mL), or one 1 oz glass of hard liquor (44 mL). General information Avoid eating more than 2,300 mg of salt a day. If you have hypertension, you may need to reduce your sodium intake to 1,500 mg a day. Work with your health care provider to maintain a healthy body weight or to lose weight. Ask what an ideal weight is for you. Get at least 30 minutes of exercise that causes your heart to beat faster (aerobic exercise) most days of the week. Activities may include walking, swimming, or biking. Work with your health care provider or dietitian to adjust your eating plan to your individual calorie needs. What foods should I eat? Fruits All fresh, dried, or frozen fruit. Canned fruit in natural juice (without added sugar). Vegetables Fresh or frozen vegetables (raw, steamed, roasted, or grilled). Low-sodium or reduced-sodium tomatoand vegetable juice. Low-sodium or reduced-sodium tomato sauce and tomato paste. Low-sodium or reduced-sodium canned vegetables. Grains Whole-grain or whole-wheat bread. Whole-grain or whole-wheat pasta. Brown rice. Oatmeal. Quinoa. Bulgur. Whole-grain and low-sodium cereals. Parris bread. Low- fat, low-sodium crackers. Whole-wheat flour tortillas. Meats and other proteins Skinless chicken or turkey. Ground chicken or turkey. Pork with fat trimmed off. Fish and seafood. Egg whites. Dried beans, peas, or lentils. Unsalted nuts, nut butters, and seeds. Unsalted canned beans. Lean cuts of beef with fat trimmed off. Low-sodium, lean precooked or cured meat, such as sausages or meat loaves. Dairy Low-fat (1%) or fat-free (skim) milk. Reduced-fat, low-fat, or fat-free cheeses. Nonfat, low-sodiumricotta or cottage cheese. Low-fat or nonfat yogurt. Low-fat, low-sodium cheese. Fats and oils Soft margarine without trans fats. Vegetable oil. Reduced-fat, low-fat, or light mayonnaise and salad dressings (reduced-sodium). Canola, safflower, olive, avocado, soybean, and sunflower oils. Avocado. Seasonings and condiments Herbs. Spices. Seasoning mixes without salt. Other foods Unsalted popcorn and pretzels. Fat-free sweets. The items listed above may not be a complete list of foods and beverages you can eat. Contact a dietitian for more information. What foods should I avoid? Fruits Canned fruit in a light or heavy syrup. Fried fruit. Fruit in cream or butter sauce. Vegetables Creamed or fried vegetables. Vegetables in a cheese sauce. Regular canned vegetables (not low-sodium or reduced-sodium). Regular canned tomato sauce and paste (not low-sodium or reduced-sodium). Regular tomato and vegetable juice (not low-sodium or reduced-sodium). Pickles. Olives. Grains Baked goods made with fat, such as croissants, muffins, or some breads. Dry pasta or rice meal packs. Meats and other proteins Fatty cuts of meat. Ribs. Fried meat. Cordon. Bologna, salami, and other precooked or cured meats, such as sausages or meat loaves. Fat from the back of a pig (fatback). Bratwurst. Salted nuts and seeds. Canned beans with added salt. Canned or smoked fish. Whole eggs or egg yolks. Chicken or turkey with skin. Dairy Whole or 2% milk, cream, and hnvp-lvm-jgmh. Whole or full-fat cream cheese. Whole-fat or sweetened yogurt. Full-fat cheese. Nondairy creamers. Whipped toppings. Processed cheese and cheese spreads. Fats and oils Butter. Stick margarine. Lard. Shortening. Ghee. Cordon fat. Tropical oils, such as coconut, palm kernel, or palm oil. Seasonings and condiments Onion salt, garlic salt, seasoned salt, table salt, and sea salt. Worcestershire sauce. Tartar sauce. Barbecue sauce. Teriyaki sauce. Soy sauce, including reduced-sodium. Steak sauce. Canned and packaged gravies. Fish sauce. Oyster sauce. Cocktail sauce. Store-bought horseradish. Ketchup. Mustard. Meat flavorings and tenderizers. Bouillon cubes. Hot sauces. Pre-made or packaged marinades. Pre-made or packaged taco seasonings. Relishes. Regular salad dressings. Other foods Salted popcorn and pretzels. The items listed above may not be a complete list of foods and beverages you should avoid. Contact a dietitian for more information. Where to find more information National Heart, Lung, and Blood [place]: www.nhlbi.nih.gov [place] [employer]: www.heart.org Academy of Nutrition and Dietetics: www.eatright.org National Kidney Foundation: www.kidney.org Summary The DASH eating plan is a healthy eating plan that has been shown to reduce high blood pressure (hypertension). It may also reduce your risk for type 2 diabetes, heart disease, and stroke. When on the DASH eating plan, aim to eat more fresh fruits and vegetables, whole grains, lean proteins, low-fat dairy, and heart-healthy fats. With the DASH eating plan, you should limit salt (sodium) intake to 2,300 mg a day. If you have hypertension, you may need to reduce your sodium intake to 1,500 mg a day. Work with your health care provider or dietitian to adjust your eating plan to your individual calorie needs. This information is not intended to replace advice given to you by your health care provider. Make sure you discuss any questions you have with your health care provider. Document Revised: 04/10/2020 Document Reviewed: 04/10/2020 [employer] Patient Education 2022 [employer]. Follow Up Care 07/22/2022 14:47:37 With:Curt AQUINO, ELECTRIC NEEDLE SPECIALIST-REACTOR SERVICE OPERATOR, Beth Dash Address: [address] [place] [id number] When:Within 3 Month(s) Comments:smoking cessation f/u [facility] [place] 08-31-2023 Miscellaneous Notes* Telephone Encounter - Radha Marroquin - 01/19/2023 3:44 PM EDT Patient requested refill of Pletal 100 mg, qty 180, one tob po bis, [address] Yan [facility] [place] [place] [facility] + Plan note Extracted from: Title:Pain Managment Follow up Author:Jillian Greene Date:01/18/23 Impression and Plan Patient is a 62-year-old male with a past medical history significant for lumbosacral neuritis, lumbar degenerative disease and multifocal pain. At this time, he is using gabapentin. 900 mg 3 times a day. He has not gotten the relief he is looking for with this. We had previously discussed Lyrica but was too expensive. We discussed increasing gabapentin to max dose. He is going to go up to 1200 mg 3 times a day. I told him that this is the maximum dose he should be on. He voiced understanding. We reviewed his previous imaging. Unfortunate, he has not gotten any long-term relief from previous injections. We discussed obtaining an updated lumbar CT scan for possible injection options versus surgical consultation depend on the results. Patient is agreeable. Patient is not able to have an MRI due to some shrapnel in his body. He is going to follow-up after the CT scan for further discussion of different options. BARRETT score: 72% Future Appointments Appointment Date:02/03/2023 09:20:00 AM Scheduled Provider:CRICKET Anders Tammy L. Location:[facility] Appointment Type:[facility]06-23-2023 Evaluation + Plan noteExtracted from: Title:Pain Managment Follow up Author:Jillian Greene Date:11/11/22 Impression and Plan Patient is a 62-year-old male with a past medical history significant for multifocal pain, sacroiliitis and lumbar neuritis. Unfortunately, the last few injections that he has had have not given him any long-term relief. We once again had a long discussion about this. He has lower back pain with bilateral leg pain that he rates a 5/10. He wondered once again about what he could possibly take to try to get some pain relief. We had a long discussion what the medication options that are available to him. At this time, he would like to just stay on the gabapentin and the baclofen. OARRS was reviewed. He is requesting refills. These were sent to the pharmacy. He is also going to continue to use OTC lidocaine roll on medication that he has been using that he states works well for him. At this time, he is going to follow-up in 3 months. He will call the clinic sooner or if he should require anything for services before then. BARRETT score: 64% Future Appointments Appointment Date:01/27/2023 08:00:00 AM Scheduled Provider:CRICKET Anders Tammy L. Location:[facility] Appointment Type:[facility]06-05-2023 Miscellaneous Notes* Telephone Encounter - Radha Marroquin - 10/24/2022 11:31 AM EDT Patient requesting refill of Pletal Called into [facility] [phone] Cilostazol 100 mg tab, 100mg, 180 qty, 2 refills. Take 1 tab po bid [facility] + Plan note Extracted from: Title:Pain Managment Follow up Author:Jillian Greene Date:10/14/22 Impression and Plan Patient is a 62-year-old male with a past medical history significant for multifocal pain, sacroiliitis and lumbar neuritis. Unfortunate, the last few injections that he has had have not given him any long-term relief. He is discouraged by this. He states that each 1 gives him short-term relief but nothing long-term. He just wants to feel better. He also able to walk further and stand longer. He wants feel to be more active. He is using baclofen and gabapentin. He now shares with me that the gabapentin makes him tired and upset his stomach. I recommended discontinuing the gabapentin and trialing Lyrica. How to switch over was discussed. Potential side effects were discussed. He is going to switch over to Lyrica at 100 mg twice daily and if doing well he can go to 3 times daily. OARRS was reviewed. Follow-up in 3 to 4 weeks. Call clinic sooner if necessary. BARRETT score: 56% Future Appointments Appointment Date:11/11/2022 09:00:00 AM Scheduled Provider:Jillian Aranda PA-C Location:[facility] Appointment Type:Pain Management - Follow Up (FT) Appointment Date:01/27/2023 08:00:00 AM Scheduled Provider:Curt AQUINO, ELECTRIC NEEDLE SPECIALIST-ROBERT, Beth Dash [facility]05-03-2023 Evaluation + Plan noteExtracted from: Title:Clinical Document Author:Anitra Olivares MD Date:09/21/22 Procedure: Injection of the left and right sciatic nerves within the piriformis muscles under fluoroscopic guidance Diagnosis: Compression of the left and right sciatic nerves Solution: 4 mL of lidocaine 2%, 5 mL normal saline, and 1 mL of Kenalog 40 mg. 10 mL total. 5 mL per side Contrast: 3 mL per side Local anesthetic: 2 mL lidocaine 2% per side Anesthesia: Local Complications: None After informed consent was obtained the patient was brought to the OR and placed in the prone position. The area in question was prepped in sterile fashion. An AP fluoroscopic view of the pelvis was obtained and the greater trochanter and inferior sacroiliac joint on the left side were visualized. A line connecting the 2 sites was visualized and after local anesthetic was administered into the skin with a 25- gauge needle, a 25-gauge Quincke needle was inserted into the skin and advanced to the midpoint of that line just superior to the acetabulum and was advanced until the bone was contacted. The needle was withdrawn slightly. Aspiration was negative. Contrast was administered which demonstrated appropriate spread. The local anesthetic steroid solution was injected incrementally. The needle was removed. Bleeding was nil. The procedure was repeated in the same manner on the right side. The patient tolerated the procedure well and was transferred to the recovery room in good condition. Future Appointments Appointment Date:10/14/2022 08:45:00 AM Scheduled Provider:Jillian Aranda PA-C Location:[facility] Appointment Type:Pain Management - Follow Up (FT) Appointment Date:01/27/2023 08:00:00 AM Scheduled Provider:Curt AQUINO, ELECTRIC NEEDLE SPECIALIST-Beth JONES Location:[facility] Appointment Type:[facility]03-31-2023 Evaluation + Plan noteExtracted from: Title:Pain Managment Follow up Author:Jillian Greene Date:08/19/22 Impression and Plan Patient is a 61-year-old male. He presents today for follow-up after undergoing left and right lateral branch blocks from S1-3. This gave him 100% relief for 4 to 6 hours. He was able to walk further and stand longer. Unfortunately, since his pain has returned he is once again significantly debilitated. This is affecting his quality of life and activities of daily. Is affecting his ability to comfortable and affecting his ability to do certain things. His ability to walk and stand for any sort of distance is affected. Based on his pain pattern we discussed different options. I recommended to patient a bilateral piriformis injection to be done by Dr. Olivares. Procedure was discussed. Questions and concerns were all answered and discussed at length. At this time we will facilitate authorization for this and follow-up with patient to do the injection. We will then see him back 3 weeks after the injection for reevaluation. In regards to his medications, OARRS reviewed. At this time, he is also requesting refills. I will send refills to his pharmacy of his medications baclofen and gabapentin. BARRETT score: 58 Future Appointments Appointment Date:01/27/2023 08:00:00 AM Scheduled Provider:Curt AQUINO, Beth HARLEY Location:[facility] Appointment Type:[facility]03-02-2023 Hospital Discharge instructions Patient Education 07/21/2022 14:32:40 Health Risks of Smoking Health Risks of Smoking Smoking cigarettes is very bad for your health. Tobacco smoke has over 200 known poisons in it. It contains the poisonous gases nitrogen oxide and carbon monoxide. There are over 60 chemicals in tobacco smoke that cause cancer. Smoking is difficult to quit because a chemical in tobacco, called nicotine, causes addiction or dependence. When you smoke and inhale, nicotine is absorbed rapidly into the bloodstream through your lungs. Both inhaled and non-inhaled nicotine may be addictive. What are the risks of cigarette smoke? Cigarette smokers have an increased risk of many serious medical problems, including: Lung cancer. Lung disease, such as pneumonia, bronchitis, and emphysema. Chest pain (angina) and heart attack because the heart is not getting enough oxygen. Heart disease and peripheral blood vessel disease. High blood pressure (hypertension). Stroke. Oral cancer, including cancer of the lip, mouth, or voice box. Bladder cancer. Pancreatic cancer. Cervical cancer. complications, including premature . Stillbirths and smaller babies, defects, and genetic damage to sperm. Early menopause. Lower estrogen level for women. Infertility. Facial wrinkles. Blindness. Increased risk of broken bones (fractures). Senile dementia. Stomach ulcers and internal bleeding. Delayed wound healing and increased risk of complications during surgery. Even smoking lightly shortens your life expectancy by several years. Because of secondhand smoke exposure, children of smokers have an increased risk of the following: Sudden infant syndrome (SIDS). Respiratory infections. Lung cancer. Heart disease. Ear infections. What are the benefits of quitting? There are many health benefits of quitting smoking. Here are some of them: Within days of quitting smoking, your risk of having a heart attack decreases, your blood flow improves, and your lung capacity improves. Blood pressure, pulse rate, and breathing patterns start returning to normal soon after quitting. Within months, your lungs may clear up completely. Quitting for 10 years reduces your risk of developing lung cancer and heart disease to almost that of a nonsmoker. People who quit may see an improvement in their overall quality of life. How do I quit smoking? Smoking is an addiction with both physical and psychological effects, and longtime habits can be hard to change. Your health care provider can recommend: Programs and community resources, which may include group support, education, or talk therapy. Prescription medicines to help reduce cravings. Nicotine replacement products, such as patches, gum, and nasal sprays. Use these products only as directed. Do not replace cigarette smoking with electronic cigarettes, which are commonly called e-cigarettes. The safety of e-cigarettes is not known, and some may contain harmful chemicals. A combination of two or more of these methods. Where to find more information [place] [employer]: www.lung.org [place] [employer]: www.cancer.org Summary Smoking cigarettes is very bad for your health. Cigarette smokers have an increased risk of many serious medical problems, including several cancers, heart disease, and stroke. Smoking is an addiction with both physical and psychological effects, and longtime habits can be hard to change. By stopping right away, you can greatly reduce the risk of medical problems for you and your family. To help you quit smoking, your health care provider can recommend programs, community resources, prescription medicines, and nicotine replacement products such as patches, gum, and nasal sprays. This information is not intended to replace advice given to you by your health care provider. Make sure you discuss any questions you have with your health care provider. Document Released: 06/15/2005 Document Revised: 08/09/2018 Document Reviewed: 05/12/2017 [employer] Patient Education 2020 Pretty Simple. 07/21/2022 14:32:29 DASH Eating Plan DASH Eating Plan DASH stands for Dietary Approaches to Stop Hypertension. The DASH eating plan is a healthy eatingplan that has been shown to reduce high blood pressure (hypertension). It may also reduce your riskfor type 2 diabetes, heart disease, and stroke. The DASH eating plan may also help with weight loss. What are tips for following this plan? General guidelines Avoid eating more than 2,300 mg (milligrams) of salt (sodium) a day. If you have hypertension, you may need to reduce your sodium intake to 1,500 mg a day. Limit alcohol intake to no more than 1 drink a day for non women and 2 drinks a day for men. One drink equals 12 oz of beer, 5 oz of wine, or 1 oz of hard liquor. Work with your health care provider to maintain a healthy body weight or to lose weight. Ask what an ideal weight is for you. Get at least 30 minutes of exercise that causes your heart to beat faster (aerobic exercise) most days of the week. Activities may include walking, swimming, or biking. Work with your health care provider or diet and dairy nutrition consultant (dietitian) to adjust your eating plan to your individual calorie needs. Reading food labels Check food labels for the amount of sodium per serving. Choose foods with less than 5 percent of the Daily Value of sodium. Generally, foods with less than 300 mg of sodium per serving fit into this eating plan. To find whole grains, look for the word whole as the first word in the ingredient list. Shopping Buy products labeled as low-sodium or no salt added. Buy fresh foods. Avoid canned foods and premade or frozen meals. Cooking Avoid adding salt when cooking. Use salt-free seasonings or herbs instead of table salt or sea salt. Check with your health care provider or pharmacist before using salt substitutes. Do not kaur foods. Cook foods using healthy methods such as baking, boiling, grilling, and broiling instead. Cook with heart-healthy oils, such as olive, canola, soybean, or sunflower oil. Meal planning Eat a balanced diet that includes: ?5 or more servings of fruits and vegetables each day. At each meal, try to fill half of your platewith fruits and vegetables. ?Up to 6 8 servings of whole grains each day. ?Less than 6 oz of lean meat, poultry, or fish each day. A 3-oz serving of meat is about the same size as a deck of cards. One egg equals 1 oz. ?2 servings of low-fat dairy each day. ?A serving of nuts, seeds, or beans 5 times each week. ?Heart-healthy fats. Healthy fats called Pillsbury-3 fatty acids are found in foods such as flaxseeds and coldwater fish, like sardines, salmon, and mackerel. Limit how much you eat of the following: ?Canned or prepackaged foods. ?Food that is high in trans fat, such as fried foods. ?Food that is high in saturated fat, such as fatty meat. ?Sweets, desserts, sugary drinks, and other foods with added sugar. ?Full-fat dairy products. Do not salt foods before eating. Try to eat at least 2 vegetarian meals each week. Eat more home-cooked food and less restaurant, buffet, and fast food. When eating at a restaurant, ask that your food be prepared with less salt or no salt, if possible. What foods are recommended? The items listed may not be a complete list. Talk with your dietitian about what dietary choices are best for you. Grains Whole-grain or whole-wheat bread. Whole-grain or whole-wheat pasta. Brown rice. Oatmeal. Quinoa. Bulgur. Whole-grain and low-sodium cereals. Parris bread. Low- fat, low-sodium crackers. Whole-wheat flour tortillas. Vegetables Fresh or frozen vegetables (raw, steamed, roasted, or grilled). Low-sodium or reduced-sodium tomatoand vegetable juice. Low-sodium or reduced-sodium tomato sauce and tomato paste. Low-sodium or reduced-sodium canned vegetables. Fruits All fresh, dried, or frozen fruit. Canned fruit in natural juice (without added sugar). Meat and other protein foods Skinless chicken or turkey. Ground chicken or turkey. Pork with fat trimmed off. Fish and seafood. Egg whites. Dried beans, peas, or lentils. Unsalted nuts, nut butters, and seeds. Unsalted canned beans. Lean cuts of beef with fat trimmed off. Low-sodium, lean deli meat. Dairy Low-fat (1%) or fat-free (skim) milk. Fat-free, low-fat, or reduced-fat cheeses. Nonfat, low-sodiumricotta or cottage cheese. Low-fat or nonfat yogurt. Low-fat, low-sodium cheese. Fats and oils Soft margarine without trans fats. Vegetable oil. Low-fat, reduced-fat, or light mayonnaise and salad dressings (reduced-sodium). Canola, safflower, olive, soybean, and sunflower oils. Avocado. Seasoning and other foods Herbs. Spices. Seasoning mixes without salt. Unsalted popcorn and pretzels. Fat- free sweets. What foods are not recommended? The items listed may not be a complete list. Talk with your dietitian about what dietary choices are best for you. Grains Baked goods made with fat, such as croissants, muffins, or some breads. Dry pasta or rice meal packs. Vegetables Creamed or fried vegetables. Vegetables in a cheese sauce. Regular canned vegetables (not low-sodium or reduced-sodium). Regular canned tomato sauce and paste (not low-sodium or reduced-sodium). Regular tomato and vegetable juice (not low-sodium or reduced-sodium). Pickles. Olives. Fruits Canned fruit in a light or heavy syrup. Fried fruit. Fruit in cream or butter sauce. Meat and other protein foods Fatty cuts of meat. Ribs. Fried meat. Cordon. Sausage. Bologna and other processed lunch meats. Salami. Fatback. Hotdogs. Bratwurst. Salted nuts and seeds. Canned beans with added salt. Canned or smoked fish. Whole eggs or egg yolks. Chicken or turkey with skin. Dairy Whole or 2% milk, cream, and [id number]. Whole or full-fat cream cheese. Whole-fat or sweetened yogurt. Full-fat cheese. Nondairy creamers. Whipped toppings. Processed cheese and cheese spreads. Fats and oils Butter. Stick margarine. Lard. Shortening. Ghee. Cordon fat. Tropical oils, such as coconut, palm kernel, or palm oil. Seasoning and other foods Salted popcorn and pretzels. Onion salt, garlic salt, seasoned salt, table salt, and sea salt. [facility] Hospitalter[facility] sauce. Tartar sauce. Barbecue sauce. Teriyaki sauce. Soy sauce, including reduced-sodium.Steak sauce. Canned and packaged gravies. Fish sauce. Oyster sauce. Cocktail sauce. Horseradish that you find on the shelf. Ketchup. Mustard. Meat flavorings and tenderizers. Bouillon cubes. Hot sauce and Tabasco sauce. Premade or packaged marinades. Premade or packaged taco seasonings. Relishes. Regular salad dressings. Where to find more information: National Heart, Lung, and [place]: www.nhlbi.nih.gov [place] [employer]: www.heart.org Summary The DASH eating plan is a healthy eating plan that has been shown to reduce high blood pressure (hypertension). It may also reduce your risk for type 2 diabetes, heart disease, and stroke. With the DASH eating plan, you should limit salt (sodium) intake to 2,300 mg a day. If you have hypertension, you may need to reduce your sodium intake to 1,500 mg a day. When on the DASH eating plan, aim to eat more fresh fruits and vegetables, whole grains, lean proteins, low-fat dairy, and heart-healthy fats. Work with your health care provider or diet and dairy nutrition consultant (dietitian) to adjust your eating plan to your individual calorie needs. This information is not intended to replace advice given to you by your health care provider. Make sure you discuss any questions you have with your health care provider. Document Released: 04/26/2012 Document Revised: 04/20/2018 Document Reviewed: 05/01/2017 [employer] Patient Education 2020 Pretty Simple. Follow Up Care 07/14/2022 15:46:53 With:Curt AQUINO, ELECTRIC NEEDLE SPECIALIST-REACTOR SERVICE OPERATOR, Beth Dash Address: [address] [place] [id number] When:Within 6 Month(s) Comments:chronic care [facility] [place] 01-20-2023 Evaluation + Plan noteExtracted from: Title:Pain Managment Follow up Author:Jillian Greene Date:06/10/22 Impression and Plan Patient is a 61-year-old male with a past medical history significant for sacroiliitis. Recent bilateral sacroiliac joint injections gave him 90% relief for 2 weeks but unfortunately, the pain then returned. It is back to baseline at an 8/10. It is in the buttocks and affects his ability to get comfort. This affects his ability to do think throughout the day. It affects his quality of life and activities daily. Previous physical therapy did not help. He is not able to use anti-inflammatory medications due to Plavix use. The sacroiliac joint injections gave significant relief but unfortunate, did not last long enough. I discussed with patient pursuing a bilateral sacroiliac joint block and if he does well with this he may be a future candidate for RFA. Procedure was discussed. Risk and benefits were discussed. Patient is agreeable. He will follow-up 2 weeks after the injection for reevaluation. Call clinic sooner if necessary. BARRETT score: 35 [facility]12-28-2022 History of Present illness Narrative* Aleja Galeano RN - 05/18/2022 9:17 AM EST 09:05 Admitted to PACU from OR. Monitor leads applied rec'd report and pt assessed. Remains very sleepy from surgery will monitor. 09:15 Remains sleepy VSS no distress noted. 09:23 Fully awake offers no C/O, VSS. [facility] environment Phone: [phone] 592-874312-28-2022 Hospital Discharge instructions* Discharge Instructions* Beltran Izaguirre MD - 05/18/2022 8:53 AM EST Normal post colonoscopy instructions May resume Plavix Call office in 1 week for polyp results No driving today [facility] ffk environment Phone: [phone] 124-368112-28-2022 NoteSite: [facility] Patient Name: DENVER PERDUE Procedure Date: 05/18/2022 Date of : 1960 Gender: Male Attending MD: Beltran Izaguirre Referring MD: PCP NO Indications: - Screening for colorectal malignant neoplasm Medications: - See the Anesthesia note for documentation of the administered medications Complications: - No immediate complications. Estimated Blood Loss: - Estimated blood loss was minimal. Procedure: - The scope was introduced through the anus and advanced to the cecum, identified by appendiceal orifice and ileocecal valve. - The colonoscopy was performed without difficulty. - The patient tolerated the procedure well. - The quality of the bowel preparation was adequate. - The ileocecal valve, appendiceal orifice, and rectum were photographed. Findings: - A 30 mm polyp was found in the rectum. The polyp was pedunculated. The polyp was removed with a hot snare. Resection and retrieval were complete. To close a defect after polypectomy, one hemostatic clip was successfully placed. There was no bleeding at the end of the procedure. - Multiple medium-mouthed diverticula were found in the sigmoid colon. There was no evidence of diverticular bleeding. - A 6 mm polyp was found in the descending colon. The polyp was sessile. Biopsies were taken with a cold forceps for histology. Estimated blood loss was minimal. Impression: - One 30 mm polyp in the rectum, removed with a hot snare. Resected and retrieved. Clip was placed. - Severe diverticulosis in the sigmoid colon. There was no evidence of diverticular bleeding. - One 6 mm polyp in the descending colon. Biopsied. - The exam was otherwise normal to the cecum. Recommendation: - Repeat colonoscopy in 1 year for surveillance based on pathology results. - Await pathology results. Procedure Code(s): - 98147, Colonoscopy, flexible; with removal of tumor(s), polyp(s), or other lesion(s) by snare technique - 96285-15, Colonoscopy, flexible; with biopsy, single or multiple Diagnosis Code(s): - Z12.11, Encounter for screening for malignant neoplasm of colon - D12.8, Benign neoplasm of rectum - D12.4, Benign neoplasm of descending colon - K57.30, Diverticulosis of large intestine without perforation or abscess without bleeding CPT(R) - 2022 copyright [place] [employer]. All Rights Reserved. The CPT codes, CCI edits and ICD codes generated are intended as suggestions and were generated based on input data. These codes are preliminary and upon handbag stitcher review may be revised to meet current compliance and payer requirements. The provider is responsible for the final determination of appropriate codes, and modifiers. Scope Withdrawal Time: 00:17:48 Signature Name: Beltran Izaguirre MD Signature Statement:This document has been electronically signed. Note Initiated On:05/18/2022 Signature Date:05/18/2022 8:57 [facility] [id number] Hospital Discharge instructions Patient Education 03/17/2022 09:06:08 Colon Polyps Colon Polyps Polyps are tissue growths inside the body. Polyps can grow in many places, including the large intestine (colon). A polyp may be a round bump or a mushroom-shaped growth. You could have one polyp or several. Most colon polyps are noncancerous (benign). However, some colon polyps can become cancerous over time. Finding and removing the polyps early can help prevent this. What are the causes? The exact cause of colon polyps is not known. What increases the risk? You are more likely to develop this condition if you: Have a family history of colon cancer or colon polyps. Are older than 50 or older than 45 if you are . Have inflammatory bowel disease, such as ulcerative colitis or Crohn's disease. Have certain hereditary conditions, such as: ?Familial adenomatous polyposis. ?Fernandez syndrome. ?Turcot syndrome. ?Peutz Jeghers syndrome. Are overweight. Smoke cigarettes. Do not get enough exercise. Drink too much alcohol. Eat a diet that is high in fat and red meat and low in fiber. Had childhood cancer that was treated with abdominal radiation. What are the signs or symptoms? Most polyps do not cause symptoms. If you have symptoms, they may include: Blood coming from your rectum when having a bowel movement. Blood in your stool. The stool may look dark red or black. Abdominal pain. A change in bowel habits, such as constipation or diarrhea. How is this diagnosed? This condition is diagnosed with a colonoscopy. This is a procedure in which a lighted, flexible scope is inserted into the anus and then passed into the colon to examine the area. Polyps are sometimes found when a colonoscopy is done as part of routine cancer screening tests. How is this treated? Treatment for this condition involves removing any polyps that are found. Most polyps can be removed during a colonoscopy. Those polyps will then be tested for cancer. Additional treatment may be needed depending on the results of testing. Follow these instructions at home: Lifestyle Maintain a healthy weight, or lose weight if recommended by your health care provider. Exercise every day or as told by your health care provider. Do not use any products that contain nicotine or tobacco, such as cigarettes and e-cigarettes. If you need help quitting, ask your health care provider. If you drink alcohol, limit how much you have: ?0 1 drink a day for women. ? 0 2 drinks a day for men. Be aware of how much alcohol is in your drink. In the [place] one drink equals one 12 oz bottle of beer (355 mL), one 5 oz glass of wine (148 mL), or one 1 oz shot of hard liquor (44 mL). Eating and drinking Eat foods that are high in fiber, such as fruits, vegetables, and whole grains. Eat foods that are high in calcium and vitamin D, such as milk, cheese, yogurt, eggs, liver, fish, and broccoli. Limit foods that are high in fat, such as fried foods and desserts. Limit the amount of red meat and processed meat you eat, such as hot dogs, sausage, cordon, and lunch meats. General instructions Keep all follow-up visits as told by your health care provider. This is important. ?This includes having regularly scheduled colonoscopies. ?Talk to your health care provider about when you need a colonoscopy. Contact a health care provider if: You have new or worsening bleeding during a bowel movement. You have new or increased blood in your stool. You have a change in bowel habits. You lose weight for no known reason. Summary Polyps are tissue growths inside the body. Polyps can grow in many places, including the colon. Most colon polyps are noncancerous (benign), but some can become cancerous over time. This condition is diagnosed with a colonoscopy. Treatment for this condition involves removing any polyps that are found. Most polyps can be removed during a colonoscopy. This information is not intended to replace advice given to you by your health care provider. Make sure you discuss any questions you have with your health care provider. Document Released: 02/01/2005 Document Revised: 08/23/2018 Document Reviewed: 08/23/2018 [employer] Patient Education 2020 Pretty Simple. 03/16/2022 14:24:46 Gastroesophageal Reflux Disease, Adult Gastroesophageal Reflux Disease, Adult Gastroesophageal reflux (TERESA) happens when acid from the stomach flows up into the tube that connects the mouth and the stomach (esophagus). Normally, food travels down the esophagus and stays in thestomach to be digested. However, when a person has TERESA, food and stomach acid sometimes move back up into the esophagus. If this becomes a more serious problem, the person may be diagnosed with a disease called gastroesophageal reflux disease (GERD). GERD occurs when the reflux: Happens often. Causes frequent or severe symptoms. Causes problems such as damage to the esophagus. When stomach acid comes in contact with the esophagus, the acid may cause soreness (inflammation) in the esophagus. Over time, GERD may create small holes (ulcers) in the lining of the esophagus. What are the causes? This condition is caused by a problem with the muscle between the esophagus and the stomach (lower esophageal sphincter, or LES). Normally, the LES muscle closes after food passes through the esophagus to the stomach. When the LES is weakened or abnormal, it does not close properly, and that allowsfood and stomach acid to go back up into the esophagus. The LES can be weakened by certain dietary substances, medicines, and medical conditions, including: Tobacco use. . Having a hiatal hernia. Alcohol use. Certain foods and beverages, such as coffee, chocolate, onions, and peppermint. What increases the risk? You are more likely to develop this condition if you: Have an increased body weight. Have a connective tissue disorder. Use NSAID medicines. What are the signs or symptoms? Symptoms of this condition include: Heartburn. Difficult or painful swallowing. The feeling of having a lump in the throat. A bitter taste in the mouth. Bad breath. Having a large amount of saliva. Having an upset or bloated stomach. Belching. Chest pain. Different conditions can cause chest pain. Make sure you see your health care provider if you experience chest pain. Shortness of breath or wheezing. Ongoing (chronic) cough or a night-time cough. Wearing away of tooth enamel. Weight loss. How is this diagnosed? Your health care provider will take a medical history and perform a physical exam. To determine if you have mild or severe GERD, your health care provider may also monitor how you respond to treatment. You may also have tests, including: A test to examine your stomach and esophagus with a small camera (endoscopy). A test that measures the acidity level in your esophagus. A test that measures how much pressure is on your esophagus. A barium swallow or modified barium swallow test to show the shape, size, and functioning of your esophagus. How is this treated? The goal of treatment is to help relieve your symptoms and to prevent complications. Treatment for this condition may vary depending on how severe your symptoms are. Your health care provider may recommend: Changes to your diet. Medicine. Surgery. Follow these instructions at home: Eating and drinking Follow a diet as recommended by your health care provider. This may involve avoiding foods and drinks such as: ?Coffee and tea (with or without caffeine). ?Drinks that contain alcohol. ?Energy drinks and sports drinks. ?Carbonated drinks or sodas. ?Chocolate and cocoa. ?Peppermint and mint flavorings. ?Garlic and onions. ?Horseradish. ?Spicy and acidic foods, including peppers, chili powder, brennan powder, vinegar, hot sauces, and barbecue sauce. ?[place] fruit juices and citrus fruits, such as oranges, nilesh, and limes. ?Tomato-based foods, such as red sauce, chili, salsa, and pizza with red sauce. ?Fried and fatty foods, such as donuts, ghanaian fries, potato chips, and high-fat dressings. ?High-fat meats, such as hot dogs and fatty cuts of red and white meats, such as rib eye steak, sausage, ham, and cordon. ?High-fat dairy items, such as whole milk, butter, and cream cheese. Eat small, frequent meals instead of large meals. Avoid drinking large amounts of liquid with your meals. Avoid eating meals during the 2 3 hours before bedtime. Avoid lying down right after you eat. Do not exercise right after you eat. Lifestyle Do not use any products that contain nicotine or tobacco, such as cigarettes, e- cigarettes, and chewing tobacco. If you need help quitting, ask your health care provider. Try to reduce your stress by using methods such as yoga or meditation. If you need help reducing stress, ask your health care provider. If you are overweight, reduce your weight to an amount that is healthy for you. Ask your health care provider for guidance about a safe weight loss goal. General instructions Pay attention to any changes in your symptoms. Take wvwc-ckj-wsahzjh and prescription medicines only as told by your health care provider. Do not take aspirin, ibuprofen, or other NSAIDs unless your health care provider told you to do so. Wear loose-fitting clothing. Do not wear anything tight around your waist that causes pressure on your abdomen. Raise (elevate) the head of your bed about 6 inches (15 cm). Avoid bending over if this makes your symptoms worse. Keep all follow-up visits as told by your health care provider. This is important. Contact a health care provider if: You have: ?New symptoms. ?Unexplained weight loss. ?Difficulty swallowing or it hurts to swallow. ?Wheezing or a persistent cough. ?A hoarse voice. Your symptoms do not improve with treatment. Get help right away if you: Have pain in your arms, neck, jaw, teeth, or back. Feel sweaty, dizzy, or light-headed. Have chest pain or shortness of breath. Vomit and your vomit looks like blood or coffee grounds. Faint. Have stool that is bloody or black. Cannot swallow, drink, or eat. Summary Gastroesophageal reflux happens when acid from the stomach flows up into the esophagus. GERD is a disease in which the reflux happens often, causes frequent or severe symptoms, or causes problems such as damage to the esophagus. Treatment for this condition may vary depending on how severe your symptoms are. Your health care provider may recommend diet and lifestyle changes, medicine, or surgery. Contact a health care provider if you have new or worsening symptoms. Take fcza-yki-oduvlom and prescription medicines only as told by your health care provider. Do not take aspirin, ibuprofen, or other NSAIDs unless your health care provider told you to do so. Keep all follow-up visits as told by your health care provider. This is important. This information is not intended to replace advice given to you by your health care provider. Make sure you discuss any questions you have with your health care provider. Document Released: 02/15/2006 Document Revised: 11/14/2018 Document Reviewed: 11/14/2018 [employer] Patient Education 2020 Pretty Simple. Follow Up Care 09/28/2021 09:49:44 With:Guille ALICEA MD, FAM Address: [address] [place], [place] [id number]- [facility] Evaluation + Plan noteExtracted from: Title:Pain management follow-up Author:Jillian Aranda PA-C Date:03/04/22 Impression and Plan Patient is a 61-year-old male with a past medical history sent for lumbosacral neuritis. Recent repeat bilateral S1 transforaminal epidural steroid injection did not give him any relief. He is discouraged and wants to know what else he can do because he states that the surgeon would not touch him . He is not exactly sure why. He does not understand why the surgeon would not help him. I would like to get these notes. I would like him to continue on his baclofen and gabapentin. He will call when he requires any refills. At this time I would like to gather up his notes from his surgeon and I would like to speak to Dr. olivares. I will call patient with a formal plan of care once I have been able to speak to him. Future Appointments Appointment Date:03/17/2022 08:20:00 AM Scheduled Provider:Guille ALICEA MD Location:[facility] [place] Appointment Type:[facility]09-14-2022 Evaluation + Plan noteExtracted from: Title:Operative Report Author:Marcel Olivares MD Date:02/02/22 SURGERY DATE: 02/02/2022 DIAGNOSIS: Lumbosacral radiculopathy OPERATION: Bilateral lumbosacral transforaminal epidural steroid injection under fluoroscopic guidance at the S1 nerve roots SOLUTION USED: 1 mL of lidocaine 2%, 3 mL of normal saline, and 1 mL of Kenalog 40 mg, 5 mL total, 2.5 mL per side; 1 mL of Isovue per side ANESTHESIA: Local COMPLICATIONS: None NOTES: The procedure was performed at the left and right S1 levels because the patient had symptoms in the distribution of those nerve roots PROCEDURE: After informed consent was obtained, the patient was brought to the Operating Room and placed in the prone position. The area in question was prepped and draped in a sterile fashion. An ipsilateral oblique fluoroscopic view of the lumbosacral spine was obtained and after a local anesthetic was administered into the skin, a 25 gauge Quincke needle was inserted into the skin and advanced into the left S1 foramen under intermittent fluoroscopic guidance. Proper needle position was confirmed via AP and lateral fluoroscopy. Contrast was administered under live fluoroscopy which demonstrated appropriate epidural and nerve root uptake and the absence of any intravascular or intrathecal spread. The local anesthetic steroid solution was injected incrementally. The needle was removed. Bleeding was nil. The procedure was repeated in the same manner at the same level on the opposite side. The patient tolerated the procedure well and was transferred to the Recovery Room in good condition. Marcel Olivares M.D. Future Appointments Appointment Date:03/04/2022 08:00:00 AM Scheduled Provider:Jillian Aranda PA-C [facility] [place] [facility] Type:Pain Management - Follow Up (FT) Appointment Date:03/17/2022 08:20:00 AM Scheduled Provider:Guille ALICEA MD Location:[facility] [place] Appointment Type:[facility]08-08-2022 Evaluation + Plan noteExtracted from: Title:Pain management follow up Author:Jillian Aranda PA-C Date:12/27/21 Impression and Plan Patient is a 60-year-old male. He has a past medical history significant for lumbosacral neuritis. Patient underwent previous bilateral S1 transforaminal epidural steroid injection. This was done on 07/28/2021 and gave him 75% relief. He continues to use baclofen 10 mg 1 tablet up to 3 times daily as needed pain. He also uses gabapentin 600 mg 3 times a day. He tolerates his well. No side effects. He takes it as prescribed. He is requesting a 9-day supply be sent to his pharmacy. I will accommodate this. At this time we discussed repeating the injection but he wants to first see the surgeon. He has an appointment tomorrow. He states that based on what they tell him he may call to pursue the injection but he would like to get his surgical options first. OARRS was reviewed and is appropriate. Patient will follow-up as needed. He will call after he discusses with the surgeon what his options are. Future Appointments Appointment Date:03/17/2022 08:20:00 AM Scheduled Provider:Guille ALICEA MD Location:[facility] [place] Appointment Type:[facility]04-27-2022 Hospital Discharge instructions Patient Education 09/15/2021 15:50:02 Laceration Care, Adult, Ikvo-xn-Ivit Laceration Care, Adult A laceration is a cut that may go through all layers of the skin. The cut may also go into the tissue that is right under the skin. Some cuts heal on their own. Others need to be closed with stitches(sutures), janice, skin adhesive strips, or skin glue. Taking care of your injury lowers your riskof infection, helps your injury to heal better, and may prevent scarring. Supplies needed: Soap. Water. Hand hydraulic repairer. Bandage (dressing). Antibiotic ointment. Clean towel. How to take care of your cut Wash your hands with soap and water before touching your wound or changing your bandage. If soap and water are not available, use hand hydraulic repairer. If your doctor used stitches or janice: Keep the wound clean and dry. If you were given a bandage, change it at least once a day as told by your doctor. You should also change it if it gets wet or dirty. Keep the wound completely dry for the first 24 hours, or as told by your doctor. After that, you may take a shower or a bath. Do not get the wound soaked in water until after the stitches or janice have been removed. Clean the wound once a day, or as told by your doctor: ?Wash the wound with soap and water. ?Rinse the wound with water to remove all soap. ?Pat the wound dry with a clean towel. Do not rub the wound. After you clean the wound, put a thin layer of antibiotic ointment on it as told by your doctor. This ointment: ?Helps to prevent infection. ?Keeps the bandage from sticking to the wound. Have your stitches or janice removed as told by your doctor. If your doctor used skin adhesive strips: Keep the wound clean and dry. If you were given a bandage, you should change it at least once a day as told by your doctor. You should also change it if it gets wet or dirty. Do not get the skin adhesive strips wet. You can take a shower or a bath, but keep the wound dry. If the wound gets wet, pat it dry with a clean towel. Do not rub the wound. Skin adhesive strips fall off on their own. You can trim the strips as the wound heals. Do not remove any strips that are still stuck to the wound. They will fall off after a while. If your doctor used skin glue: Try to keep your wound dry, but you may briefly wet it in the shower or bath. Do not soak the woundin water, such as by swimming. After you take a shower or a bath, gently pat the wound dry with a clean towel. Do not rub the wound. Do not do any activities that will make you really sweaty until the skin glue has fallen off on itsown. Do not apply liquid, cream, or ointment medicine to your wound while the skin glue is still on. If you were given a bandage, you should change it at least once a day or as told by your doctor. You should also change it if it gets dirty or wet. If a bandage is placed over the wound, do not let the tape touch the skin glue. Do not pick at the glue. The skin glue usually stays on for 5 10 days. Then, it falls off the skin. General instructions Take duzd-sst-vmnheuv and prescription medicines only as told by your doctor. If you were given antibiotic medicine or ointment, take or apply it as told by your doctor. Do not stop using it even if your condition improves. Do not scratch or pick at the wound. Check your wound every day for signs of infection. Watch for: ?Redness, swelling, or pain. ?Fluid, blood, or pus. Raise (elevate) the injured area above the level of your heart while you are sitting or lying down. If directed, put ice on the affected area: ?Put ice in a plastic bag. ?Place a towel between your skin and the bag. ?Leave the ice on for 20 minutes, 2 3 times a day. Prevent scarring by covering your wound with sunscreen of at least 30 SPF whenever you are outside after your wound has healed. Keep all follow-up visits as told by your doctor. This is important. Get help if: You got a tetanus shot and you have any of these problems at the injection site: ?Swelling. ?Very bad pain. ?Redness. ?Bleeding. You have a fever. A wound that was closed breaks open. You notice a bad smell coming from your wound or your bandage. You notice something coming out of the wound, such as wood or glass. Medicine does not relieve your pain. You have more redness, swelling, or pain at the site of your wound. You have fluid, blood, or pus coming from your wound. You notice a change in the color of your skin near your wound. You need to change the bandage often because fluid, blood, or pus is coming from the wound. You start to have a new rash. You start to have numbness around the wound. Get help right away if: You have very bad swelling around the wound. Your pain suddenly gets worse and is very bad. You notice painful lumps near the wound or anywhere on your body. You have a red streak going away from your wound. The wound is on your hand or foot, and: ?You cannot move a finger or toe. ?Your fingers or toes look pale or bluish. Summary A laceration is a cut that may go through all layers of the skin. The cut may also go into the tissue right under the skin. Some cuts heal on their own. Others need to be closed with stitches, janice, skin adhesive strips,or skin glue. Follow your doctor's instructions for caring for your cut. Proper care of a cut lowers the risk of infection, helps the cut heal better, and prevents scarring. This information is not intended to replace advice given to you by your health care provider. Make sure you discuss any questions you have with your health care provider. Document Released: 10/24/2008 Document Revised: 07/06/2018 Document Reviewed: 05/28/2018 [employer] Patient Education [employer]. Follow Up Care 03/15/2021 14:44:23 With:[facility] Address: [facility] Note1.Limited transrectal ultrasound as part of preprocedure planning did not demonstrate any obvious abscess for drainage. COMPARISON:No prior studies are available for comparison. DIAGNOSIS: Prior absce ss at outside hospital and percutaneous drain placement COMMENTS: None TECHNIQUE: Limited transrectal ultrasound performed to assess for transrectal drainage of abscess FINDINGS: Limited transrectal ultrasound did not demonstrate an obvious abscess. Bowel loops with wall thickening, particularly the sigmoid colon with wall thickening are seen.[employer] Work Phone: [phone]) 864-475208-27-2021 History of Present illness Narrative* Nanette Cary - 01/15/2021 11:31 AM EDT CLINICAL PHARMACY NOTE: MEDS TO BEDS Total # of Prescriptions Filled: 2 The following medications were delivered to the patient: Ondansetron 4 odt Amoxicillin- pot clavul 875-125 Additional Documentation: Left with pt in room * Rome Richards, - 01/15/2021 9:52 AM EDT Images from the original note were not included. [facility] Office: [phone] Francisco Sanabria DO, Rome Richards DO, Chandler Romeo DO, Kenyon Rose DO, Tanika Forte MD, Kat Romo MD, Janneth Arevalo MD, Viktoria Parks MD, Goran Weinstein MD, Lanny Michel MD, MD Phyllis, Patt Castro MD, Guille Navarro DO, Tbaitha Berkowitz MD, Perry Schreiber DO, MD Nadia, Lani Coles DO, Neftali Galvin MD, Viktoria Kent MD, Ernestine Garcia MD, Tyson Ferreira MD, Sandra Colindres CNP, Viviane Whitman CNP, Elli Banuelos CNP, Janie Sutton, WINDOWS LAPTOP TECHNICIAN,Will Arzate CNP, Camille Casillas CNP, Brooke Calle CNP, Tamika Melgoza, REACTOR SERVICE OPERATOR, Noe Lucero CNP, Bk Palacios PA-C, Frieda Strange DNP, Liz Martin CNP, Elisabet Rodriguez CNP, Sharla Rodriguez CNP, Roger Lozano CNP, Laura Roca CNP, Daksha Vann, REACTOR SERVICE OPERATOR [facility] IN-PATIENT SERVICE [facility] Progress Note 01/15/2021 10:08 AM Name: Denver Perdue Acct: [id number] Room: 0320/0320-01 Day: 3 Admit Date: 01/12/2021 8:27 PM PCP: NIKI DERAS Code Status: Full Code Subjective: C/C: Abdominal pain Interval History Status: Improved Up to chair Left lower quadrant pain resolving Mild pain at drain site Doing okay with diet Has had loose stools Hoping to go home today Data Base Updates: WBC9.1k/uL RBC4.26m/uL Vrdisngomx59.3 Specimen Source: Abscess Specimen Description.ABSCESS PELVIC Special RequestsNOT REPORTED Direct ExamMANY NEUTROPHILSAbnormal MODERATE GRAM POSITIVE COCCI IN CLUSTERSAbnormal FEW GRAM POSITIVE COCCI IN PAIRSAbnormal FEW GRAM POSITIVE RODSAbnormal CultureLACTOSE FERMENTING GRAM NEGATIVE RODS LIGHT GROWTHAbnormal NORMAL BEATRIZ Brief History: Denver Perdue is a 60 y.o. male who presents with: LLQ pain Patient was admitted thru [place] [facility] with diverticulitis, diverticular abscess The patient reports his problems began last week He had developed crampy left lower quadrant abdominal pain Stools have been somewhat loose and green in color He did achieve some relief with bowel movements He does have chronic back pain The patient follows with pain management He also underwent a L4 5 injection last week on Monday No prior history of diverticular disease CT revealed: 1. Acute sigmoid diverticulitis with 5.5 x 6.2 cm perisigmoid rim-enhancing fluid collection with air-fluid level, consistent with perisigmoid abscess. There is a punctate focus of perisigmoid extraluminal gas that communicates with this rim-enhancing fluid collection/abscess. 2. Interval resolution of left hydroureteronephrosis. There are nonobstructing left renal calculi. There is a simple leftrenal cyst. 3. Stable approximately 5.0 x 5.0 cm infrarenal abdominal aortic aneurysm with minimal aortoiliac atherosclerosis. 4. Sequela of old granulomatous disease. The initial plan included: Admit N.p.o. Antibiotics: Zosyn train caller for abscess drainage per IR Pain management CRS evaluation Smoking cessation / education Reflux precautions Vascular follow-up as scheduled: 5 cm AAA On 01/13 the patient underwent: Abscess drainage placement A total of 60 mL of purulent fluid was removed and sent for diagnostic tests. Postprocedural CT demonstrated complete collapse of the cavity The patient responded well to medical therapy Diet was resumed He was transition to oral therapy Discharge planning initiated Medications: Allergies: No Known Allergies Current Meds: Scheduled Meds: amoxicillin-clavulanate 1 tablet Oral 2 times per day [START ON 01/16/2021] pantoprazole 20 mg Oral QAM AC sodium chloride flush 10 mL IntraCATHeter BID sodium chloride flush 5-40 mL IntraVENous 2 times per day enoxaparin 40 mg Subcutaneous Daily Continuous Infusions: sodium chloride PRN Meds: ibuprofen, sodium chloride flush, sodium chloride, potassium chloride OR potassium alternative oral replacement OR potassium chloride, magnesium sulfate, ondansetron OR ondansetron, acetaminophen OR [DISCONTINUED] acetaminophen, polyethylene glycol Data: Past Medical History: has a past medical history of AAA (abdominal aortic aneurysm) (HCC), Chest pain, Chronic midline low back pain with bilateral sciatica, DDD (degenerative disc disease), lumbar, GERD (gastroesophageal reflux disease), and GERD (gastroesophageal reflux disease). Social History: reports that he has been smoking cigarettes. He has been smoking about 1.00 pack per day. He has never used smokeless tobacco. He reports that he does not drink alcohol and does not use drugs. Family History: Family History Problem Relation Age of Onset Heart Disease Mother Cancer Mother Primary site unknown to patient Cancer Father Primary site unknown to patient Review of Systems: Review of Systems Constitutional: Positive for activity change (Improving). Negative for chills, diaphoresis (Reportssweats last night, he attributes to his room being warm) and fever. Respiratory: Positive for cough (Chronic). Negative for shortness of breath. Cardiovascular: Negative for chest pain and palpitations. Gastrointestinal: Positive for abdominal pain (Improving left lower quadrant pain, mild pain at drain site). Negative for abdominal distention, constipation, diarrhea, nausea and vomiting. Genitourinary: Negative for flank pain and hematuria. Musculoskeletal: Positive for back pain (Known lumbar degenerative disc disease) and gait problem (Due to chronic back pain and sciatica). Neurological: Positive for numbness (Chronic sciatica worse on the right side). Physical Examination: Physical Exam Vitals reviewed. Constitutional: General: He is not in acute distress. Appearance: He is not diaphoretic. HENT: Head: Normocephalic. Nose: Nose normal. Eyes: General: No scleral icterus. Conjunctiva/sclera: Conjunctivae normal. Neck: Trachea: No tracheal deviation. Cardiovascular: Rate and Rhythm: Normal rate and regular rhythm. Pulmonary: Effort: Pulmonary effort is normal. No respiratory distress. Breath sounds: Rhonchi (Occasional) present. No wheezing or rales. Chest: Chest wall: No tenderness. Abdominal: General: Bowel sounds are normal. There is no distension. Palpations: Abdomen is soft. Tenderness: There is abdominal tenderness (Less left lower quadrant discomfort). Comments: Drain site stable Drain collecting purulent fluid Musculoskeletal: General: No tenderness. Cervical back: Neck supple. Skin: General: Skin is warm and dry. Neurological: Mental Status: He is alert. Vitals: BP (!) 162/81 Pulse 66 Temp 98.1 F (36.7 C) (Oral) Resp 16 Ht 5' 9 (1.753 m) Wt 168 lb 9.6 oz (76.5 kg) SpO2 98% BMI 24.90 kg/m Temp (24hrs), Av.5 F (36.9 C), Min:98.1 F (36.7 C), Max:98.9 F (37.2 C) No results for input(s): POCGLU in the last 72 hours. I/O (24Hr): Intake/Output Summary (Last 24 hours) at 01/15/2021 1008 Last data filed at 01/15/2021 0643 Gross per 24 hour Intake Output 10 ml Net -10 ml Labs: Hematology: Recent Labs 01/13/21 0647 01/13/21 0820 01/14/21 1257 01/15/21 0426 WBC 15.4* -- 10.4 9.1 RBC 4.43 -- 4.50 4.26 HGB 13.9 -- 14.3 13.3 HCT 43.4 -- 44.2 41.2 MCV 98.0 -- 98.2 96.7 MCH 31.4 -- 31.8 31.2 MCHC 32.0 -- 32.4 32.3 RDW 14.3 -- 14.2 14.0 PLT 179 -- 218 211 MPV 10.5 -- 10.4 10.5 INR -- 1.0 -- -- Chemistry: Recent Labs 01/13/21 0647 01/15/21 0426 NA 138 142 K 3.9 4.1 CL 104 106 CO2 23 25 GLUCOSE 93 99 BUN 15 12 CREATININE 0.79 0.67* MG 1.9 -- ANIONGAP 11 11 LABGLOM >60 >60 GFRAA >60 >60 CALCIUM 8.5* 8.4* PHOS 2.2* -- Recent Labs 01/13/21 0647 PROT 6.6 LABALBU 3.3* AST 14 ALT 12 ALKPHOS 101 BILITOT 0.78 ABG:No results found for: POCPH, PHART, PH, POCPCO2, VEM6FJY, PCO2, POCPO2, PO2ART, PO2, POCHCO3, VNF0MIP, HCO3, NBEA, PBEA, BEART, BE, THGBART, THB, MBJ4GON, GACB2HWJ, [id number], O2SAT, FIO2 Lab Results Component Value Date/Time SPECIAL NOT REPORTED 01/13/2021 02:34 PM Lab Results Component Value Date/Time CULTURE LACTOSE FERMENTING GRAM NEGATIVE RODS LIGHT GROWTH (A) 01/13/2021 02:34 PM CULTURE NORMAL BEATRIZ 01/13/2021 02:34 PM Radiology: CT ABDOMEN PELVIS W IV CONTRAST Additional Contrast? None Result Date: 01/12/2021 1. Acute sigmoid diverticulitis with 5.5 x 6.2 cm perisigmoid rim-enhancing fluid collection with air-fluid level, consistent with perisigmoid abscess. There is a punctate focus of perisigmoid extraluminal gas that communicates with this rim-enhancing fluid collection/abscess. 2. Interval resolution of left hydroureteronephrosis. There are nonobstructing left renal calculi. There is a simple leftrenal cyst. 3. Stable approximately 5.0 x 5.0 cm infrarenal abdominal aortic aneurysm with minimal aortoiliac atherosclerosis. 4. Sequela of old granulomatous disease. CT ABSCESS DRAINAGE Result Date: 01/13/[address] guided placement of a 8 Congolese pelvic drainage catheter via right transgluteal fashion. Assessment: Principal Problem: Colonic diverticular abscess Active Problems: GERD (gastroesophageal reflux disease) Acute diverticulitis AAA (abdominal aortic aneurysm) (HCC) Tobacco use Chronic midline low back pain with bilateral sciatica DDD (degenerative disc disease), lumbar Hypokalemia Labile blood pressure Resolved Problems: * No resolved hospital problems. * Plan: Progress to regular diet Transition to oral therapy Antibiotics: Augmentin 10 days Pain management CRS evaluation and f/u Dr Tran in two weeks Smoking cessation / education Reflux precautions Vascular follow-up as scheduled: 5 cm AAA Correct electrolyte abnormalities Blood Pressure - Monitor and control DVT prophylaxis DC planning Will discharge when arrangements complete and ok with other services. Follow-up with PCP in one week, NIKI DERAS Notify PCP of discharge Med rec done Drain care CINDY done Home care orders placed DCP 32 min+ IP CONSULT TO GENERAL SURGERY IP CONSULT TO HOME CARE NEEDS Rome Richards DO 01/15/2021 10:08 AM * Rome Richards DO - 01/14/2021 11:14 AM EDT Physician Progress Note PATIENT: DENVER PERDUE CSN #: [id number] : 1960 ADMIT DATE: 01/12/2021 8:27 PM DISCH DATE: RESPONDING PROVIDER #: ROME RICHARDS DO QUERY TEXT: Pt admitted with Ac Diverticulitis with abscess. Pt noted to have SIRS. If possible, please document in the progress notes and discharge summary if you are evaluating and /or treating any of the following: The medical record reflects the following: Risk Factors: GERD, AAA, Diverticulitis Clinical Indicators: CT Acute sigmoid diverticulitis with 5.5 x 6.2 cm perisigmoid rim-enhancing fluid collection with air-fluid level, consistent with perisigmoid abscess. WBC 01/12 23.3, 01/13 15.4, Resp 19-26, HR 91-110 Treatment: IR placed drainage tube to sigmoid, Ct, Cipro changed to Zosyn, IV fluids. Please call with any questions. Donna Peña Options provided: -- Abscess Sepsis, present on admission -- Ac Diverticulitis with abscess without Sepsis -- Other - I will add my own diagnosis -- Disagree - Not applicable / Not valid -- Disagree - Clinically unable to determine / Unknown -- Refer to Clinical Documentation Reviewer PROVIDER RESPONSE TEXT: This patient has Ac Diverticulitis with abscess without Sepsis. Query created by: Donna Peña on 01/14/2021 11:08 AM Electronically signed by: ROME RICHARDS DO 01/14/2021 11:13 AM * Rome Richards, DO - 01/14/2021 10:07 AM EDT Images from the original note were not included. [facility] Office: [phone] Francisco Sanabria DO, Rome Richards, DO, Chandler Romeo DO, Kenyon Rose DO, Tanika Forte MD, Kat Romo MD, Janneth Arevalo MD, Viktoria Parks MD, Goran Weinstein MD, Lanny Michel MD, MD Phyllis, Patt Castro MD, Guille Navarro DO, Tabitha Berkowitz MD, Perry Schreiber DO, MD Nadia, Lani Coles DO, Neftali Galvin MD, Viktoria Kent MD, Ernestine Garcia MD, Tyson Ferreira MD, Sandra Colindres, REACTOR SERVICE OPERATOR, Viviane Whitman, REACTOR SERVICE OPERATOR, Elli Banuelos, REACTOR SERVICE OPERATOR, Janie Sutton, WINDOWS LAPTOP TECHNICIAN,Will Arzate, REACTOR SERVICE OPERATOR, Camille Casillas, REACTOR SERVICE OPERATOR, Brooke Calle, REACTOR SERVICE OPERATOR, Tamika Melgoza, REACTOR SERVICE OPERATOR, Noe Lucero, REACTOR SERVICE OPERATOR, Bk Palacios PA-C, Frieda Strange, RACH, Liz Martin, REACTOR SERVICE OPERATOR, Elisabet Rdoriguez, REACTOR SERVICE OPERATOR, Sharla Rodriguez, REACTOR SERVICE OPERATOR, Roger Lozano, REACTOR SERVICE OPERATOR, Laura Roca, REACTOR SERVICE OPERATOR, Daksha Vann, REACTOR SERVICE OPERATOR [facility] IN-PATIENT SERVICE [facility] Progress Note 01/14/2021 10:18 AM Name: Denver Perdue Acct: [id number] Room: [address] [place] [address] Day: 2 Admit Date: 01/12/2021 8:27 PM PCP: NIKI DERAS Code Status: Full Code Subjective: C/C: Abdominal pain Interval History Status: Improved Status post drain placement Pain better controlled Ambulating Hungry No BM Data Base Updates: Specimen Source: Abscess Specimen Description.ABSCESS PELVIC Special RequestsNOT REPORTED Direct ExamMANY NEUTROPHILSAbnormal MODERATE GRAM POSITIVE COCCI IN CLUSTERSAbnormal FEW GRAM POSITIVE COCCI IN PAIRSAbnormal FEW GRAM POSITIVE RODSAbnormal CulturePENDING Brief History: Denver Perdue is a 60 y.o. male who presents with: LLQ pain Patient was admitted thru [place] [facility] with diverticulitis, diverticular abscess The patient reports his problems began last week He had developed crampy left lower quadrant abdominal pain Stools have been somewhat loose and green in color He did achieve some relief with bowel movements He does have chronic back pain The patient follows with pain management He also underwent a L4 5 injection last week on Monday No prior history of diverticular disease CT revealed: 1. Acute sigmoid diverticulitis with 5.5 x 6.2 cm perisigmoid rim-enhancing fluid collection with air-fluid level, consistent with perisigmoid abscess. There is a punctate focus of perisigmoid extraluminal gas that communicates with this rim-enhancing fluid collection/abscess. 2. Interval resolution of left hydroureteronephrosis. There are nonobstructing left renal calculi. There is a simple leftrenal cyst. 3. Stable approximately 5.0 x 5.0 cm infrarenal abdominal aortic aneurysm with minimal aortoiliac atherosclerosis. 4. Sequela of old granulomatous disease. The initial plan included: Admit N.p.o. Antibiotics: Zosyn train caller for abscess drainage per IR Pain management CRS evaluation Smoking cessation / education Reflux precautions Vascular follow-up as scheduled: 5 cm AAA On 01/13 the patient underwent: Abscess drainage placement A total of 60 mL of purulent fluid was removed and sent for diagnostic tests. Postprocedural CT demonstrated complete collapse of the cavity Medications: Allergies: No Known Allergies Current Meds: Scheduled Meds: piperacillin-tazobactam 3,375 mg IntraVENous Q8H sodium chloride flush 10 mL IntraCATHeter BID sodium chloride flush 5-40 mL IntraVENous 2 times per day enoxaparin 40 mg Subcutaneous Daily famotidine (PEPCID) injection 20 mg IntraVENous BID Continuous Infusions: sodium chloride sodium chloride 125 mL/hr at 01/13/212051 PRN Meds: morphine, sodium chloride flush, sodium chloride, potassium chloride OR potassium alternative oral replacement OR potassium chloride, magnesium sulfate, ondansetron OR ondansetron, acetaminophen OR acetaminophen, polyethylene glycol Data: Past Medical History: has a past medical history of AAA (abdominal aortic aneurysm) (HCC), Chest pain, Chronic midline low back pain with bilateral sciatica, DDD (degenerative disc disease), lumbar, GERD (gastroesophageal reflux disease), and GERD (gastroesophageal reflux disease). Social History: reports that he has been smoking cigarettes. He has been smoking about 1.00 pack per day. He has never used smokeless tobacco. He reports that he does not drink alcohol and does not use drugs. Family History: Family History Problem Relation Age of Onset Heart Disease Mother Cancer Mother Primary site unknown to patient Cancer Father Primary site unknown to patient Review of Systems: Review of Systems Constitutional: Positive for activity change (Decreased) and diaphoresis (Reports sweats last night, he attributes to his room being warm). Negative for appetite change (The patient is hungry) and fever. Respiratory: Positive for cough (Chronic). Negative for shortness of breath. Cardiovascular: Negative for chest pain and palpitations. Gastrointestinal: Positive for abdominal pain (Improving left lower quadrant pain). Negative for abdominal distention, constipation, diarrhea, nausea and vomiting. Genitourinary: Negative for flank pain and hematuria. Musculoskeletal: Positive for back pain (Known lumbar degenerative disc disease) and gait problem (Due to chronic back pain and sciatica). Neurological: Positive for numbness (Chronic sciatica worse on the right side). Physical Examination: Physical Exam Vitals reviewed. Constitutional: General: He is not in acute distress. Appearance: He is not diaphoretic. HENT: Head: Normocephalic. Nose: Nose normal. Eyes: General: No scleral icterus. Conjunctiva/sclera: Conjunctivae normal. Neck: Trachea: No tracheal deviation. Cardiovascular: Rate and Rhythm: Normal rate and regular rhythm. Pulmonary: Effort: Pulmonary effort is normal. No respiratory distress. Breath sounds: Rhonchi (Occasional) present. No wheezing or rales. Chest: Chest wall: No tenderness. Abdominal: General: Bowel sounds are normal. There is no distension. Palpations: Abdomen is soft. Tenderness: There is abdominal tenderness (Less left lower quadrant discomfort). Comments: Drain site stable Drain collecting purulent fluid Musculoskeletal: General: No tenderness. Cervical back: Neck supple. Skin: General: Skin is warm and dry. Neurological: Mental Status: He is alert. Vitals: BP (!) 155/94 Pulse 69 Temp 98.1 F (36.7 C) Resp 16 Ht 5' 9 (1.753 m) Wt 169 lb (76.7 kg) SpO2 93% BMI 24.96 kg/m Temp (24hrs), Av.8 F (36.6 C), Min:96.8 F (36 C), Max:98.1 F (36.7 C) No results for input(s): POCGLU in the last 72 hours. I/O (24Hr): Intake/Output Summary (Last 24 hours) at 01/14/2021 1018 Last data filed at 01/14/2021 0627 Gross per 24 hour Intake 1855 ml Output 90 ml Net 1765 ml Labs: Hematology: Recent Labs 01/12/21 0848 01/13/21 0647 01/13/21 0820 WBC 23.3* 15.4* -- RBC 4.89 4.43 -- HGB 15.7 13.9 -- HCT 46.9 43.4 -- MCV 96.0 98.0 -- MCH 32.2 31.4 -- MCHC 33.5 32.0 -- RDW 15.4* 14.3 -- PLT 200 179 -- MPV NOT REPORTED 10.5 -- INR -- -- 1.0 Chemistry: Recent Labs 01/12/21 0848 01/13/21 0647 NA 137 138 K 4.0 3.9 CL 103 104 CO2 23 23 GLUCOSE 125* 93 BUN 16 15 CREATININE 0.75 0.79 MG -- 1.9 ANIONGAP 11 11 LABGLOM >60 >60 GFRAA >60 >60 CALCIUM 9.6 8.5* PHOS -- 2.2* Recent Labs 01/12/21 0848 01/13/21 0647 PROT 8.0 6.6 LABALBU 3.9 3.3* AST 17 14 ALT 15 12 ALKPHOS 120 101 BILITOT 0.89 0.78 LIPASE 14 -- ABG:No results found for: POCPH, PHART, PH, POCPCO2, UFX6MFC, PCO2, POCPO2, PO2ART, PO2, POCHCO3, EFM7VEH, HCO3, NBEA, PBEA, BEART, BE, THGBART, THB, JNL5QCJ, ZZMY0IDX, [id number], O2SAT, FIO2 Lab Results Component Value Date/Time SPECIAL NOT REPORTED 01/13/2021 02:34 PM Lab Results Component Value Date/Time CULTURE PENDING 01/13/2021 02:34 PM Radiology: CT ABDOMEN PELVIS W IV CONTRAST Additional Contrast? None Result Date: 01/12/2021 1. Acute sigmoid diverticulitis with 5.5 x 6.2 cm perisigmoid rim-enhancing fluid collection with air-fluid level, consistent with perisigmoid abscess. There is a punctate focus of perisigmoid extraluminal gas that communicates with this rim-enhancing fluid collection/abscess. 2. Interval resolution of left hydroureteronephrosis. There are nonobstructing left renal calculi. There is a simple leftrenal cyst. 3. Stable approximately 5.0 x 5.0 cm infrarenal abdominal aortic aneurysm with minimal aortoiliac atherosclerosis. 4. Sequela of old granulomatous disease. CT ABSCESS DRAINAGE Result Date: 01/13/[address] guided placement of a 8 Congolese pelvic drainage catheter via right transgluteal fashion. Assessment: Principal Problem: Colonic diverticular abscess Active Problems: GERD (gastroesophageal reflux disease) Acute diverticulitis AAA (abdominal aortic aneurysm) (HCC) Tobacco use Chronic midline low back pain with bilateral sciatica DDD (degenerative disc disease), lumbar Hypokalemia Resolved Problems: * No resolved hospital problems. * Plan: Progress to clear liquid diet Antibiotics: Zosyn Pain management CRS evaluation and f/u Dr Tran Smoking cessation / education Reflux precautions Vascular follow-up as scheduled: 5 cm AAA Correct electrolyte abnormalities DVT prophylaxis IP CONSULT TO GENERAL SURGERY Rome Richards DO 01/14/2021 10:18 AM * Yasmeen Tran MD - 01/14/2021 5:53 AM EDT General Surgery: Daily Progress Note PATIENT NAME: Denver Perdue TODAY'S DATE: 01/14/2021, 5:53 AM SUBJECTIVE: Pt seen and examined at bedside. No acute events overnight and he appears significantly improved. Pt states his abdominal pain has resolved. C/O minimal pain at the drain placement site from yesterday. Denies fever, chills, nausea, vomiting, chest pain, and SOB. He is NPO and has not eaten. He has been getting up out of bed and walking. + flatus, - BM. OBJECTIVE: VITALS: BP 131/68 Pulse 71 Temp 98.1 F (36.7 C) (Temporal) Resp 20 Ht 5' 9 (1.753 m) Wt 163 lb (73.9 kg) SpO2 94% BMI 24.07 kg/m INTAKE/OUTPUT: Intake/Output Summary (Last 24 hours) at 01/14/2021 0553 Last data filed at 01/13/2021 1827 Gross per 24 hour Intake Output 80 ml Net -80 ml PHYSICAL EXAM: General Appearance: awake, alert, oriented, in no acute distress HEENT: Normocephalic, atraumatic, mucus membranes moist Skin: Skin color, texture, turgor normal. No rashes or lesions. Lungs: Normal expansion and respiratory effort Heart: Heart regular rate and rhythm Abdomen: soft, ND, NTTP, VICTOR M drain in place posteriorly draining purulent fluid about 5cc in bulb Extremities: Extremities warm to touch, pink, with no edema. Data: CBC: Lab Results Component Value Date WBC 15.4 01/13/2021 RBC 4.43 01/13/2021 HGB 13.9 01/13/2021 HCT 43.4 01/13/2021 MCV 98.0 01/13/2021 MCH 31.4 01/13/2021 MCHC 32.0 01/13/2021 RDW 14.3 01/13/2021 PLT 179 01/13/2021 MPV 10.5 01/13/2021 BMP: Lab Results Component Value Date NA 138 01/13/2021 K 3.9 01/13/2021 CL 104 01/13/2021 CO2 23 01/13/2021 BUN 15 01/13/2021 LABALBU 3.3 01/13/2021 CREATININE 0.79 01/13/2021 CALCIUM 8.5 01/13/2021 GFRAA >60 01/13/2021 LABGLOM >60 01/13/2021 GLUCOSE 93 01/13/2021 ASSESSMENT: Active Hospital Problems Diagnosis Date Noted Colonic diverticular abscess [K57.20] 01/13/2021 Tobacco use [Z72.0] 01/13/2021 Chronic midline low back pain with bilateral sciatica [M54.41, M54.42, G89.29] 01/13/2021 AAA (abdominal aortic aneurysm) (HCC) [I71.4] DDD (degenerative disc disease), lumbar [M51.36] Acute diverticulitis [K57.92] 01/12/2021 GERD (gastroesophageal reflux disease) [K21.9] 09/29/2014 60 y.o. male with acute diverticulitis s/p drain placement for perisigmoid abscess by IR. Plan: IR successfully place drain into perisigmoid abscess with 60 cc of purulent fluid drained. VICTOR M drainin place. Continue to monitor output Medical management and supportive care per primary team Advance to [facility] today Activity: Continue to encourage ambulation/activity w/ PT/OT Continue to encourage incentive spirometry Continue to monitor with serial abdominal exams. Follow up as outpatient with vascular surgery for infrarenal AAA measuring 5cm x5cm I performed a history and physical examination on the patient and discussed the management with themedical student . I reviewed, edited and agree with the findings and plan as documented in her note. Patient doing well clinically. Abdominal pain resolved. Mild pain at IR drain site. 5ml purulent fluid drained overnight. Okay for clear liquid diet. I Dr. Tran saw and examined the patient. I have edited the above and agree with the above. Yasmeen Tran Colorectal Surgery * Yasmeen Tran MD - 01/13/2021 5:52 AM EDT General Surgery: Daily Progress Note PATIENT NAME: Denver Perdue TODAY'S DATE: 01/13/2021, 5:53 AM SUBJECTIVE: Pt seen and examined at bedside. No acute events overnight. Pt states overall pain is 5/10. C/O abdominal pain in his lower quadrants. Denies fever, chills, nausea, vomiting, chest pain, and SOB. He is NPO. He last ate Monday. Gets up to chair. + flatus, - BM. OBJECTIVE: VITALS: BP 139/88 Pulse 110 Temp 99.5 F (37.5 C) (Oral) Resp 18 Ht 5' 9 (1.753 m) Wt 163lb (73.9 kg) SpO2 97% BMI 24.07 kg/m INTAKE/OUTPUT: No intake or output data in the 24 hours ending 01/13/21 0553 PHYSICAL EXAM: General Appearance: awake, alert, oriented, in no acute distress HEENT: Normocephalic, atraumatic, mucus membranes moist Skin: Skin color, texture, turgor normal. No rashes or lesions. Lungs: Normal expansion. Clear to auscultation. Heart: Heart regular rate and rhythm Abdomen: Tenderness to palpation in the lower abdominal quadrants, mild guarding. Nondistended. Nonperitoneal.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 [place]) * Aortic Aneurysm: Abdominal ([place]izen [place]) documented in this encounter* Instructions* Mirian Weaver RN - 06/05/2020 SAME DAY SURGERY DISCHARGE INSTRUCTIONS 1. Do not drive or operate hazardous machinery for 24 hours. 2. Do not make important personal or business decisions for 24 hours. 3. Do not drink alcoholic beverages for 24 hours. 4. Do not smoke tobacco products for 24 hours. 5. Eat light foods (Jell-O, soups, etc....) and drink plenty of fluids (water, Sprite, etc...) up to 8 glasses per day, as you can tolerate. 6. Limit your activities for 24 hours. Do not engage in heavy work until your surgeon gives you permission. 7. Report the following signs or any questions regarding your physical condition to your surgeon immediately: Excessive swelling of, or around the wound area. Redness. Temperature of 100 degrees (F) or above. Excessive pain. 8. Call your surgeon for any questions regarding your surgery. CYSTOSCOPY DISCHARGE INSTRUCTIONS Possible burning during urination and/or blood tinged urine. Drink 6-8 glasses of water for the next day or so. (This helps to flush the urinary tract.) Call Dr. Mendez ([phone]) if you develop: Fever over 100 degrees Prolonged soreness/pain Unusual bleeding/bruising Unable to urinate or if urine is bloody You cannot pass urine 8 hours after the test. You have pain in your belly or your back just below your rib cage. (This is called flank pain.) You have frequent urge to urinate but can pass only small amounts of urine. Call Dr. Mendez office for follow-up appointment ([phone]). documented in this encounter History of Present Illness * Jeannette Gomez RN - 06/18/2020 11:33 AM EST Pt verbalized readiness to go home. Discharge instructions given to pt and . Verbalized understanding and all questions answered at this time. Discharge Criteria Inpatients must meet Criteria 1 through 7. All other patients are either YES or N/A. If a NO is chosen then Anesthesia or Surgeon must be notified. 1. Minimum 30 minutes after last dose of sedative medication, minimum 120 minutes after last dose of reversal agent. Yes 2. Systolic BP stable within 20 mmHg for 30 minutes & systolic BP between 90 & 180 or within 10 mmHg of baseline. Yes 3. Pulse between 60 and 100 or within 10 bpm of baseline. Yes 4. Spontaneous respiratory rate >/= 10 per minute. Yes 5. SaO2 >/= 95 or >/= baseline. Yes 6. Able to cough and swallow or return to baseline function. Yes 7. Alert and oriented or return to baseline mental status. Yes 8. Demonstrates controlled, coordinated movements, ambulates with steady gait, or return to baseline activity function. Yes 9. Minimal or no pain or nausea, or at a level tolerable and acceptable to patient. Yes 10. Takes and retains oral fluids as allowed. Yes 11. Procedural / perioperative site stable. Minimal or no bleeding. Yes 12. If GI endoscopy procedure, minimal or no abdominal distention or passing flatus. N/A 13. Written discharge instructions and emergency telephone number provided. Yes 14. Accompanied by a responsible adult. Yes * Jeannette Gomez RN - 06/18/2020 10:40 AM EST Pt ambulated to bathroom and back to chair with 1 assist. Pt able to urinate, and states it really huerta. RN reassured pt that bleeding and burning with urination are completely normal after this type of procedure. * Tess Wall RN - 06/05/2020 2:36 PM EST Patient instructed on the pre-operative, intra-operative, and post-operative process. Patient instructed on NPO status. Medication instructions and Pre operative instruction sheet reviewed over the phone. Instructed pt to stop taking mobic 7 days prior to surgery and to take gabapentin and protonixwith a small sip of water prior to arriving to the hospital the day of surgery. documented in this encounter* Mirian Weaver RN - 06/05/2020 9:21 AM EST Discharge instructions given to pt and . 09 Dr. Mendez spoke with pt and .Discharge Criteria Inpatients must meet Criteria 1 through 7. All other patients are either YES or N/A. If a NO is chosen then Anesthesia or Surgeon must be notified. 1. Minimum 30 minutes after last dose of sedative medication, minimum 120 minutes after last dose of reversal agent. Yes 2. Systolic BP stable within 20 mmHg for 30 minutes & systolic BP between 90 & 180 or within 10 mmHg of baseline. Yes 3. Pulse between 60 and 100 or within 10 bpm of baseline. Yes 4. Spontaneous respiratory rate >/= 10 per minute. Yes 5. SaO2 >/= 95 or >/= baseline. Yes 6. Able to cough and swallow or return to baseline function. Yes 7. Alert and oriented or return to baseline mental status. Yes 8. Demonstrates controlled, coordinated movements, ambulates with steady gait, or return to baseline activity function. Yes 9. Minimal or no pain or nausea, or at a level tolerable and acceptable to patient. Yes 10. Takes and retains oral fluids as allowed. Yes 11. Procedural / perioperative site stable. Minimal or no bleeding. Yes 12. If GI endoscopy procedure, minimal or no abdominal distention or passing flatus. N/A 13. Written discharge instructions and emergency telephone number provided. Yes 14. Accompanied by a responsible adult. Yes documented in this encounter Assessments Diagnosis Ureteral calculus- Primary Calculus of ureter Diagnosis Left renal stone- Primary Abdominal aortic aneurysm (AAA) without rupture (HCC) Diagnosis Kidney stone Calculus of kidney Reason for Referral Status Reason Specialty Diagnoses / Procedures Referre d By Contact Referred To Contact Closed Radiology Diagnoses Abscess Procedures CT ABDOMEN PELVIS WO CONTRAST Additional Contrast? Rectal Rome Brock MD [address] [facility] [address] [place] [address] Status Reason Specialty Diagnoses / Procedures Referre d By Contact Referred To Contact Closed Radiology Diagnoses Colonic diverticular abscess Encounter for preadmission testing Procedures US TRANSRECTAL Flaco Quan, ELECTRIC NEEDLE SPECIALIST - REACTOR SERVICE OPERATOR [address] [facility] [address] [place] [address] Specialty Diagnoses / Procedures Referred By Contac t Referred To Contact Radiology Diagnoses Abdominal aortic aneurysm without rupture (HCC) Procedures US [place]CREENING [place] [id number] [place] [address] [address] [place] [address] Referral ID Status Reason Start Date Expiration Date V isits Requested Visits Authorized Pending Review 09/13/2021 08/30/2022 1 1 Specialty Diagnoses / Procedures Referred By Contac t Referred To Contact Radiology Diagnoses 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) Procedures US DUP LOWER EXTREMITY RIGHT [place]ER[place] [id number] [place] [address] [address] [place] [address] Referral ID Status Reason Start Date Expiration Date V isits Requested Visits Authorized Pending Review 09/13/2021 08/30/2022 1 1 Specialty Diagnoses / Procedures Referred By Contac t Referred To Contact Radiology Diagnoses Bilateral carotid bruits Procedures US CAROTID ARTERY BILATERAL Laci Dominique MD [address] [facility] [address] [place] [address] Referral ID Status Reason Start Date Expiration Date Visits Re quested Visits Authorized [id number] Closed 02/22/2022 02/06/2023 1 1 Referral ID Status Reason Start Date Expiration Date V isits Requested Visits Authorized [id number] Pending Review 07/30/2022 07/29/2023 1 1 Specialty Diagnoses / Procedures Referred By Contac t Referred To Contact Radiology Diagnoses Infrarenal abdominal aortic aneurysm (AAA) without rupture (HCC) Procedures [place] [address] [place] [address] Referral ID Status Reason Start Date Expiration Date V isits Requested Visits Authorized [id number] Pending Review 07/30/2022 07/29/2023 1 1 Specialty Diagnoses / Procedures Referred By Contac t Referred To Contact Diagnoses Aneurysm of infrarenal abdominal aorta, unspecified whether ruptured (HCC) Procedures Vascular [place] [address] [place] [address] Referral ID Status Reason Start Date Expiration Date V isits Requested Visits Authorized [id number] Pending Review 01/10/2023 01/05/2024 1 1 Additional Source Comments (unrecognized sect ion and content) No Status Records FoundNo Status Records FoundNo Status Records FoundNo Status Records FoundNo Status Records FoundNo Status Records FoundNo Status Records FoundNo Status Records Found INFORMATION SOURCE (unrecogn ized section and content) DATE CREATED AUTHOR 11/15/2017 [facility] DATE CREATED AUTHOR AUTHOR'S ORGANIZ ATION 06/18/2020 [facility] DATE CREATED AUTHOR AUTHOR'S ORGANIZ ATION 01/19/2021 [facility] DATE CREATED AUTHOR AUTHOR'S ORGANIZ ATION 02/25/2021 [facility] DATE CREATED AUTHOR AUTHOR'S ORGANIZ ATION 09/16/2023 [facility] DATE CREATED AUTHOR AUTHOR'S ORGANIZ ATION 02/22/2024 [facility] DATE CREATED AUTHOR AUTHOR'S ORGANIZ ATION 03/01/2024 [facility] DATE CREATED AUTHOR AUTHOR'S ORGANIZ ATION 03/06/2024 [facility] Reason for Visit (unrecogniz ed section and content) Status Reason Specialty Diagnoses / Procedures Referre d By Contact Referred To Contact Diagnoses Left ureteral calculus LEFT URETERAL CALCULUS Procedures ND CYSTO/URETERO W/LITHOTRIPSY &INDWELL STENT INSRT ND CYSTO/URETERO W/LITHOTRIPSY &INDWELL STENT INSRT CYSTOSCOPY URETEROSCOPY LASER-WITH HLL CYSTOSCOPY STENT INSERTION/EXCHANGE Ankita Mendez MD [address], [address] [place] [address] [employer] Reason Comments Flank Pain pain to left flank a nd abdomen started yesterday. Pt sent here from [facility] office for possible Kidney Stone Status Reason Specialty Diagnoses / Procedures Referre d By Contact Referred To Contact Diagnoses Kidney stone KIDNEY STONE Procedures ND CYSTOSCOPY,INSERT URETERAL STENT CYSTOSCOPY STENT INSERTION Ankita Mendez MD [address], [address] [place] [address] [facility] [employer] Reason Comments Abdominal Pain started Monday - had BM Monday - hx AAA - was sent over from walk in clinic Status Reason Specialty Diagnoses / Procedures Referre d By Contact Referred To Contact Diagnoses Acute diverticulitis acute diverticulitis Rome Richards DO [address] [place] [address] [facility] [employer] Status Reason Specialty Diagnoses / Procedures Referre d By Contact Referred To Contact Closed Radiology Diagnoses Abscess Procedures CT ABDOMEN PELVIS WO CONTRAST Additional Contrast? Rectal Rome Brock MD [address] [facility] [address] [place] [address] Status Reason Specialty Diagnoses / Procedures Referre d By Contact Referred To Contact Closed Radiology Diagnoses Colonic diverticular abscess Encounter for preadmission testing Procedures US ABSCESS DRAINAGE W CATH S&I IR ABSCESS DRAINAGE PERC Flaco Quan, ELECTRIC NEEDLE SPECIALIST - REACTOR SERVICE OPERATOR [address] [facility] [address] [place] [address] Specialty Diagnoses / Procedures Referred By Reynaldo rm Referred To Contact Radiology Diagnoses Pre-operative clearance Z01.818 (ICD-10-CM) - Pre-operative clearance Procedures NM MYOCARDIAL SPECT REST EXERCISE OR RX CHG MYOCARDIAL SPECT MULTIPLE STUDIES [id number] - CHG MYOCARDIAL SPECT MULTIPLE STUDIES Laci Dominique MD [address] [place] [address] Referral ID Status Reason Start Date Expiration Date V isits Requested Visits Authorized [id number] Pending Review 05/05/2021 04/05/2022 4 4 Specialty Diagnoses / Procedures Referred By Contac t Referred To Contact Radiology Diagnoses Abdominal aortic aneurysm without rupture (HCC) Procedures [place] [address] [place] [address] Referral ID Status Reason Start Date Expiration Date V isits Requested Visits Authorized Pending Review 09/13/2021 08/30/2022 1 1 Specialty Diagnoses / Procedures Referred By Contac t Referred To Contact Radiology Diagnoses 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) Procedures US DUP LOWER [place]ITY [place] [address] [place] [address] Referral ID Status Reason Start Date Expiration Date V isits Requested Visits Authorized Pending Review 09/13/2021 08/30/2022 1 1 Specialty Diagnoses / Procedures Referred By Contac t Referred To Contact Radiology Diagnoses Bilateral carotid bruits Procedures US CAROTID ARTERY BILATERAL Laci Dominique MD [address] [facility] [address] [place] [address] Referral ID Status Reason Start Date Expiration Date Visits Re quested Visits Authorized [id number] Closed 02/22/2022 02/06/2023 1 1 Specialty Diagnoses / Procedures Referred By Contac t Referred To Contact Diagnoses Colon cancer screening COLON SCREENING Procedures ND COLON CA SCRN NOT HI RSK IND ND COLONOSCOPY FLX DX W/COLLJ SPEC WHEN PFRMD COLONOSCOPY, PAT ON ADMIT Beltran Izaguirre MD [address] [place] [address] [facility] [address] [place] [address] Referral ID Status Reason Start Date Expiration Date Visits Re quested Visits Authorized [id number] 1 1 Referral ID Status Reason Start Date Expiration Date V isits Requested Visits Authorized [id number] Pending Review 07/30/2022 07/29/2023 1 1 Specialty Diagnoses / Procedures Referred By Contac t Referred To Contact Radiology Diagnoses Infrarenal abdominal aortic aneurysm (AAA) without rupture (HCC) Procedures [place] [address] [place] [address] Referral ID Status Reason Start Date Expiration Date V isits Requested Visits Authorized [id number] Pending Review 07/30/2022 07/29/2023 1 1 Reason Comments Abstract Reason Comments Medication Assistance Patient out of Ple mikala, requesting new Rx Specialty Diagnoses / Procedures Referred By Contac t Referred To Contact Diagnoses Aneurysm of infrarenal abdominal aorta, unspecified whether ruptured (HCC) Procedures Vascular [place] [address] [place] [address] Referral ID Status Reason Start Date Expiration Date V isits Requested Visits Authorized [id number] Pending Review 01/10/2023 01/05/2024 1 1 Reason Comments Refill Request Pletal Ordered Prescriptions (unrec ognized section and content) Prescription Sig Dispensed Refills Start Date End Da te sulfamethoxazole-trimetho prim (BACTRIM DS) 800-160 MG per tablet Take 1 tablet by mouth 2 times daily for 7 days 14 tablet 0 06/04/2020 06/11/2020 tamsulosin (FLOMAX) 0.4 MG capsule Take 1 capsule by mouth daily for 7 days 7 capsule 0 06/04/2020 06/11/2020 ondansetron (ZOFRAN ODT) 4 MG disintegrating tablet Take 1 tablet by mouth every 4 hours as needed for Nausea or Vomiting 10 tablet 0 06/04/2020 oxyCODONE-acetaminophen (PERCOCET) 5-325 MG per tabletIndications:Left renal stone Take 1 tablet by mouth every 6 hours as needed for Pain for up to 3 days. Intended supply: 3 days. Take lowest dose possible to manage pain 12 tablet 0 06/04/2020 06/07/2020 Prescription Sig Dispensed Refills Start Date End Da te amoxicillin-clavulanate (AUGMENTIN) 875-125 MG per tablet Take 1 tablet by mouth every 12 hours for 10 days 20 tablet 0 01/15/2021 01/25/2021 ondansetron (ZOFRAN-ODT) 4 MG disintegrating tablet Take 1 tablet by mouth every 8 hours as needed for Nausea or Vomiting 20 tablet 1 01/15/2021 Scheduled Active and Recently Administ ered Medications (unrecognized section and content) Medication Order 01/10/2021 01/11/2021 01/12/2021 0.9 % sodium chloride bolus (COMPLETED) 1,000 mL (13.8 mL/kg), Intravenous, at 1,000 mL/hr, Administer over 1 Hours, ONCE, On Mon01/12/21 at 0900, For 1 dose 0900 (New Bag - Prov ider: Starr Brasher RN)1050 (Stopped - Provider: Iftikhar Ac RN) morphine sulfate (PF) injection 4 mg (COMPLETED) 4 mg, Intravenous, ONCE, On Mon01/12/21 at 0900, For 1 dose 0901 (Given - Provid er: Starr Brasher RN) morphine sulfate (PF) injection 4 mg (COMPLETED) 4 mg, Intravenous, ONCE, On Mon01/12/21 at 1100, For 1 dose 1056 (Given - Provid er: Iftikhar Ac RN) morphine sulfate (PF) injection 4 mg (COMPLETED) 4 mg, IntraVENous, ONCE, On Mon01/12/21 at 1730, For 1 dose 1722 (Given - Provid er: Delores Hatfield RN) ondansetron (ZOFRAN) injection 4 mg (COMPLETED) 4 mg, Intravenous, ONCE, On Mon01/12/21 at 0900, For 1 dose 0901 (Given - Provid er: Starr Brasher RN) piperacillin-tazobactam (ZOSYN) 4,500 mg in dextrose 5 % 100 mL IVPB (mini-bag) (COMPLETED) 4,500 mg, Intravenous, ONCE, 1 dose, On Mon01/12/21 at 1030 1044 (New Bag - Prov ider: Iftikhar Ac RN)1114 (Stopped - Provider: Delores Hatfield RN) piperacillin-tazobactam (ZOSYN) 4,500 mg in dextrose 5 % 100 mL IVPB (mini-bag) (COMPLETED) 4,500 mg, IntraVENous, ONCE, 1 dose, On Mon01/12/21 at 1730 1722 (New Bag - Prov ider: Delores Hatfield RN)1756 (Stopped - Provider: Iftikhar Ac RN) PRN Medication Order 01/10/2021 01/11/2021 01/12/2021 iopamidol (ISOVUE-370) 76 % injection 75 mL (COMPLETED) 75 mL, Intravenous, IMG ONCE PRN, Other, Starting on Mon01/12/21 at 0913, For 1 dose 0942 (Given - Provid er: Delmy Dean) Scheduled Medication Order 01/13/2021 01/14/2021 01/15/2021 amoxicillin-clavulanate (AUGMENTIN) 875-125 MG per tablet 1 tablet 1 tablet, Oral, EVERY 12 HOURS SCHEDULED (2 times per day), First dose on Mon01/15/21 at 1015 1204 (Given - Provider: Zahida Read RN)2100 (Due) enoxaparin (LOVENOX) injection 40 mg 40 mg, Subcutaneous, DAILY, First dose on Mon01/13/21 at 0900 0742 (Not Given - Provider: Majo Mchugh RN - Reason: Contraindicated)1022 (Held by provider - Provider: Lidia Whitney MD - Reason: Transfer to a Procedural area - Comment: IR drainage of abscess) 0900 (Automatically Held - Provider: Lidia Whitney MD)1018 (Unheld by provider - Provider: Rome Richards DO)1506 (Given - Provider: Cherie Self RN) 0809 (Given - Provider: Zahida Read RN) famotidine (PEPCID) injection 20 mg (CANCELED) 20 mg, IntraVENous, 2 TIMES DAILY, First dose on Mon01/12/21 at 2245, Administer over 2 minutes. 0833 (Given - Provider: Cherie Self RN)2053 (Given - Provider: Solo Huff RN) 0937 (Given - Provider: Cherie Self RN)2305 (Given - Provider: Jeanine Harry RN) 0809 (Given - Provider: Zahida Read, RN) pantoprazole (PROTONIX) tablet 20 mg 20 mg, Oral, DAILY BEFORE BREAKFAST, First dose on Mon01/16/21 at 0700, Do not crush or break. piperacillin-tazobactam (ZOSYN) 3,375 mg in dextrose 5 % 50 mL IVPB (mini-bag) (CANCELED) 3,375 mg, IntraVENous, EVERY 8 HOURS, First dose (after last reorder) on Mon01/13/21 at 0145, Until Discontinued 0153 (New Bag - Provider: Shahzad Torres RN)0527 (Stopped - Provider: Shahzad Torres RN)1023 (New Bag - Provider: Cherie Self RN)1434 (Stopped - Provider: Cherie Self RN)1720 (New Bag - Provider: Cherie Self RN)2120 (Stopped - Provider: Solo Huff RN) 0142 (New Bag - Provider: Solo Huff RN)0542 (Stopped - Provider: Solo Huff RN)0937 (New Bag - Provider: Cherie Self RN)1414 (Stopped - Provider: Cherie Self RN)1753 (New Bag - Provider: Cherie Self RN)1930 (Paused - Provider: Jeanine Harry RN - Comment: loss of iv)2311 (Restarted - Provider: Jeanine Harry RN) 0103 (Stopped - Provider: Jeanine Harry RN)0202 (New Bag - Provider: Jeanine Harry RN)0603 (Stopped - Provider: Jeanine Harry RN)1004 (Canceled Entry - Provider: Zahida Read, RN) sodium chloride flush 0.9 % injection 10 mL 10 mL, IntraCATHeter, 2 TIMES DAILY, First dose on Mon01/13/21 at 1445, Please flush abscess drain with 10 mL of saline BID and record I&Os. 1448 (Given - Provider: Cherie Self RN)2227 (Given - Provider: Solo Huff RN - Comment: see MAR) 0937 (Given - Provider: Cherie Self RN)2312 (Not Given - Provider: Jeanine Harry RN - Reason: Loss of IV access) 0810 (Given - Provider: Zahida Read, RN)2100 (Due) sodium chloride flush 0.9 % injection 5-40 mL 5-40 mL, IntraVENous, EVERY 12 HOURS SCHEDULED (2 times per day), First dose on Mon01/12/21 at 2200, For Line Patency: Peripheral IV = 5 mL; Midline or Central Line = 10 mL/lumen. If following IV push medication, administer flush at same rate as the IV push. Flush volume is determined by type of infusion therapy being given. For non-viscous solutions use: Peripheral IV = 5 mL Midline or Central Line = 10 mL/lumen For viscous solutions (i.e. blood components, parenteral nutrition, contrast media, or after obtaining blood sample) use: Peripheral IV = 10 mL Midline or Central Line = 20 mL/lumen 0833 (Given - Provider: Cherie Self RN)2051 (Given - Provider: Solo Huff RN)2052 (Given - Provider: Solo Huff RN - Comment: victor m) 0900 (Not Given - Provider: Cherie Self RN - Reason: IV Fluid Infusing)231 (Not Given - Provider: Jeanine Harry RN - Reason: Loss of IV access) 0810 (Given - Provider: Zahida Read, LYNSEY)2100 (Due) Continuous Medication Order 01/13/2021 01/14/2021 01/15/2021 0.9 % sodium chloride infusion (CANCELED) IntraVENous, at 125 mL/hr, CONTINUOUS, Starting on Mon01/12/21 at 2200 2051 (New Bag - Provider: Solo Huff RN) PRN Medication Order 01/13/2021 01/14/2021 01/15/2021 0.9 % sodium chloride infusion 25 mL, IntraVENous, at 100 mL/hr, PRN, If patient receiving piggyback infusions without ordered maintenance IV fluids or with frequent/long duration piggyback infusions, Starting on Mon01/12/21 at 2129, Administer at the same rate as the piggyback being infused. acetaminophen (TYLENOL) tablet 650 mg 650 mg, Oral, EVERY 6 HOURS PRN, Pain Mild (1-3), Fever, For temp greater than 100.4 F (38 C), Starting on Mon01/12/21 at 2129, Maximum dose of acetaminophen is 4000 mg from all sources in 24 hours. fentaNYL (SUBLIMAZE) injection (COMPLETED) ONCE PRN, Starting on Mon01/13/21 at 1347, For 1 dose 1347 (Given - Provider: Guerline Esparza RN - Comment: for procedural discomfort) fentaNYL (SUBLIMAZE) injection (COMPLETED) ONCE PRN, Starting on Mon01/13/21 at 1354, For 1 dose 1354 (Given - Provider: Guerline Esparza RN - Comment: for drain placement) ibuprofen (ADVIL;MOTRIN) tablet 800 mg 800 mg, Oral, EVERY 8 HOURS PRN, Pain Mild (1-3), Starting on Mon01/15/21 at 0847, Do not crush or chew. magnesium sulfate 1000 mg in dextrose 5% 100 mL IVPB 1,000 mg, IntraVENous, at 100 mL/hr, Administer over 1 Hours, PRN, Other, Per IV Magnesium Replacement Protocol, Starting on Mon01/12/21 at 2129, Mg Lab Replacement Action 1.4-1.6 1 gram IVPB x 2 doses (2 gram Total) 1.0-1.3 1 gram IVPB x 4 doses (4 gram Total) <1.0 CALL PHYSICIAN and 1 gram IVPB x 4 doses (4 gram Total) Infuse at 1 gram/hr. Repeat Mag level next AM. Protocol not for use in patients with CrCl less than 30 mL/min. midazolam PF (VERSED) injection (COMPLETED) ONCE PRN, Starting on Mon01/13/21 at 1346, For 1 dose 1346 (Given - Provider: Guerline Esparza RN - Comment: for procedural anxiety) morphine (PF) injection 1 mg (CANCELED) 1 mg, IntraVENous, EVERY 4 HOURS PRN, Pain Severe (7-10), Starting on Mon01/13/21 at 0807, If oral and IV narcotics ordered, use oral first and only use IV if oral is ineffective or cannot take oral. Do Not give oral and IV within 1 hour of each other unless specifically ordered. 0833 (Given - Provider: Cherie Self RN)2100 (Given - Provider: Solo Huff RN) 1258 (Given - Provider: Cherie Self RN)1803 (Given - Provider: Cherie Self RN)2302 (Given - Provider: Jeanine Harry RN) ondansetron (ZOFRAN) injection 4 mg(Linked Group 1) 4 mg, IntraVENous, EVERY 6 HOURS PRN, Nausea, Vomiting, Starting on Mon01/12/21 at 2128, Administer if oral route cannot be used. ondansetron (ZOFRAN-ODT) disintegrating tablet 4 mg(Linked Group 1) 4 mg, Oral, EVERY 8 HOURS PRN, Nausea, Vomiting, Starting on Mon01/12/21 at 2128 polyethylene glycol (GLYCOLAX) packet 17 g 17 g, Oral, DAILY PRN, Constipation, Starting on Mon01/12/21 at 2128, First line therapy for constipation potassium bicarb-citric acid (EFFER-K) effervescent tablet 40 mEq(Linked Group 2) 40 mEq, Oral, PRN, Per Potassium Replacement Protocol, Starting on Mon01/12/21 at 2128, Administer as alternative if patient unable to tolerate oral tablet. K Lab Replacement Action 3.1 to 3.5 40 mEq ORAL x 1 Under 3.1 Refer to IV replacement protocol Recheck K level in AM. Protocol not for use in patients with CrCl less than 30 mL/min. Do not chew or crush. Dissolve flavored tablets completely in 3 to 4 ounces of cold water; unflavored tablets may be dissolved in 3 to 4 ounces of cold juice. Patient to sip slowly over a 5 to 10 minute period. May further dilute if GI adverse effects occur. potassium chloride (KLOR-CON M) extended release tablet 40 mEq(Linked Group 2) 40 mEq, Oral, PRN, Per Potassium Replacement Protocol, Starting on Mon01/12/21 at 2128, May give oral solution if patient unable to tolerate tablet K Lab Replacement Action 3.1-3.5 40 mEq ORAL x 1 2.7-3.0 Refer to IV replacement protocol <2.7 Refer to IV replacement protocol Recheck potassium level in AM. Protocol not for use in patients with CrCl less than 30 mL/min. potassium chloride 10 mEq/100 mL IVPB (Peripheral Line)(Linked Group 2) 10 mEq, IntraVENous, at 100 mL/hr, PRN, Per Potassium Replacement Protocol, Starting on Mon01/12/21 at 2128, K Lab Replacement Action 2.7-3.0 10 mEeq IVPB x 6 doses (60 mEq Total) <2.7 CALL PHYSICIAN and 10 mEq IVPB x 6 doses (60 mEq Total) Infuse at 10 mEq/hr. Repeat potassium lab 1 hour after final administration. Protocol not for use in patients with CrCl less than 30 mL/min. sodium chloride flush 0.9 % injection 10 mL 10 mL, IntraVENous, PRN, Line Care, After every IV line use, Starting on Mon01/12/21 at 2128 Linked Groups Order Group 1: ondansetron (ZOFRAN-ODT) disintegrating tablet 4 mgJump to med 4 mg, Oral, EVERY 8 HOURS PRN, Nausea, Vomiting, Starting on Mon01/12/21 at 2128 Or ondansetron (ZOFRAN) injection 4 mgJump to med 4 mg, IntraVENous, EVERY 6 HOURS PRN, Nausea, Vomiting, Starting on Mon01/12/21 at 2128
Administer if oral route cannot be used.
Group 2: potassium chloride (KLOR-CON M) extended release tablet 40 mEqJump to med 40 mEq, Oral, PRN, Per Potassium Replacement Protocol, Starting on Mon01/12/21 at 2128
May give oral solution if patient unable to tolerate tablet K Lab Replacement Action 3.1-3.5 40 mEq ORAL x 1 &n bsp;& nbsp; 2.7-3.0 Refer to IV replacement protocol &n bsp;& nbsp; <2.7 Refer to IV replacement protocol &n bsp;& nbsp; Recheck potassium level in AM. Protocol not for use in patients with CrCl less than 30 mL/min.
Or potassium bicarb-citric acid (EFFER-K) effervescent tablet 40 mEqJump to med 40 mEq, Oral, PRN, Per Potassium Replacement Protocol, Starting on Mon01/12/21 at 2129
Administer as alternative if patient unable to tolerate oral tablet. K Lab R eplac ement Action 3.1 to 3.5 40 mEq ORAL x 1 Under 3.1 Refer to IV replacement protocol Recheck K level in AM. Protocol not for use in patients with CrCl less than 30 mL/min. Do not chew or crush. Dissolve flavored tablets completely in 3 to 4 ounces of cold water; unflavored tablets may be dissolved in 3 to 4 ounces of cold juice. Patient to sip slowly over a 5 to 10 minute period. May further dilute if GI adverse effects occur.
Or potassium chloride 10 mEq/100 mL IVPB (Peripheral Line)Jump to med 10 mEq, IntraVENous, at 100 mL/hr, PRN, Per Potassium Replacement Protocol, Starting on Mon01/12/21 at 2129
K Lab Replacement Action 2.7-3.0 10 mEeq IVPB x 6 doses &n bsp;& nbsp; (60 mEq Total) <2.7 CALL PHYSICIAN and &n bsp;& nbsp; 10 mEq IVPB x 6 doses &n bsp;& nbsp; (60 mEq Total) Infuse at 10 mEq/hr. Repeat potassium lab 1 hour after final administration. Protocol not for use in patients with CrCl less than 30 mL/min.
Scheduled Medication Order 05/16/2022 05/17/2022 05/18/2022 sodium chloride flush 0.9 % injection 5-40 mL 5-40 mL, IntraVENous, EVERY 12 HOURS SCHEDULED (2 times per day), First dose on Mon05/18/22 at 0900, Until Discontinued, For Line Patency: Peripheral IV = 5 mL; Midline or Central Line = 10 mL/lumen. If following IV push medication, administer flush at same rate as the IV push. Flush volume is determined by type of infusion therapy being given. For non-viscous solutions use: Peripheral IV = 5 mL Midline or Central Line = 10 mL/lumen For viscous solutions (i.e. blood components, parenteral nutrition, contrast media, or after obtaining blood sample) use: Peripheral IV = 10 mL Midline or Central Line = 20 mL/lumen, PACU only 0900 (Due)2100 (Due) PRN Medication Order 05/16/2022 05/17/2022 05/18/2022 0.9 % sodium chloride infusion 25 mL, IntraVENous, at 100 mL/hr, PRN, If patient receiving piggyback infusions without ordered maintenance IV fluids or with frequent/long duration piggyback infusions, Starting on Mon05/18/22 at 0844, Administer at the same rate as the piggyback being infused., PACU only dextrose 10 % infusion IntraVENous, at 100 mL/hr, CONTINUOUS PRN, if blood glucose remains LESS THAN 70 mg/dL after 2 dextrose 10% intravenous boluses or administration of glucagon, Starting on Mon05/18/22 at 0844, If blood glucose fails to stabilize after 2 dextrose 10% intravenous boluses or glucagon administration, start dextrose 10% infusion at 100 mL/hour and repeat blood glucose at 30 and 60 minutes. If blood glucose is GREATER THAN 70 mg/dL after 60 minutes, discontinue dextrose 10% infusion., PACU only dextrose bolus 10% 125 mL(Linked Group 1) 125 mL, IntraVENous, at 937.5 mL/hr, Administer over 8 Minutes, PRN, Other, Blood glucose 40 - 69 mg/dL and patient NOT ALERT or NPO, Starting on Mon05/18/22 at 0844, Repeat blood glucose in 15 minutes. If blood glucose remains LESS THAN 70 mg/dL, repeat treatment and recheck blood glucose in 15 minutes x 2. If using glycemic management system, dose as instructed per system. If blood glucose remains LESS THAN 70 mg/dL after 2 intravenous boluses start dextrose 10% at 100 mL/hour and notify provider., PACU only dextrose bolus 10% 250 mL(Linked Group 1) 250 mL, IntraVENous, at 937.5 mL/hr, Administer over 16 Minutes, PRN, Other, Blood glucose LESS THAN 40 mg/dL and patient NOT ALERT or NPO, Starting on Mon05/18/22 at 0844, Repeat blood glucose in 15 minutes. If blood glucose remains LESS THAN 70 mg/dL, repeat treatment and recheck blood glucose in 15 minutes x 2. If using glycemic management system, dose as instructed per system. If blood glucose remains LESS THAN 70 mg/dL after 2 intravenous boluses start dextrose 10% at 100 mL/hour and notify provider., PACU only glucagon injection 1 mg 1 mg, SubCUTAneous, PRN, Starting on Mon05/18/22 at 0844, Until Discontinued, Low blood sugar, Blood glucose LESS THAN 70 mg/dL and patient NOT ALERT or NPO and does not have IV access., After administration, attempt intravenous access and start dextrose 10% at 100 mL/hr. Repeat blood glucose in 15 minutes x 2 and notify provider., PACU only glucose chewable tablet 16 g 16 g (4 tablet), Oral, PRN, Starting on Mon05/18/22 at 0844, Until Discontinued, Low blood sugar, If blood glucose is LESS THAN 70 mg/dL and patient is alert and tolerating oral. Give 4 tablets (16g) Repeat blood glucose in 15 minutes. If blood glucose is LESS THAN 70 mg/dL, repeat treatment and recheck blood glucose in 15 minutes x 2. If blood glucose remains LESS THAN 70 mg/dL, notify provider., PACU only hydrALAZINE (APRESOLINE) injection 10 mg(Linked Group 2) 10 mg, IntraVENous, EVERY 15 MIN PRN, 2 doses, Starting on Mon05/18/22 at 0844, Until Discontinued, High Blood Pressure, for SBP greater than 180 mmHg for 2 consecutive measurements taken from different sites, If heart rate is greater than 60 bpm, hold hydralazine and use labetalol if ordered, otherwise contact provider. Inform provider if SBP is still greater than 180 mmHg 10 minutes after second antihypertensive dose is administered., PACU only ipratropium-albuterol (DUONEB) nebulizer solution 1 ampule 1 ampule, Inhalation, ONCE PRN, 1 dose, Starting on Mon05/18/22 at 0844, Until Mikayla 05/19/22 at 0844, Shortness of Breath, Initiate RT Bronchodilator Protocol: No, PACU only labetalol (NORMODYNE;TRANDATE) injection 10 mg(Linked Group 2) 10 mg, IntraVENous, EVERY 15 MIN PRN, 2 doses, Starting on Mon05/18/22 at 0844, Until Discontinued, High Blood Pressure, for SBP greater than 180 mmHg for 2 consecutive measurements taken from different sites., If heart rate is 60 bpm or less hold labetalol and use hydralazine if ordered, otherwise contact provider. Inform provider if SBP is still greater than 180 mmHg, 10 minutes after second antihypertensive dose is administered., PACU only metoclopramide (REGLAN) injection 10 mg 10 mg, IntraVENous, ONCE PRN, 1 dose, Starting on Mon05/18/22 at 0844, Until Mikayla 05/19/22 at 0844, Nausea, Secondary antiemetic therapy., PACU only ondansetron (ZOFRAN) injection 4 mg 4 mg, IntraVENous, ONCE PRN, 1 dose, Starting on Mon05/18/22 at 0844, Until Mikayla 05/19/22 at 0844, Nausea, Initial antiemetic therapy., PACU only sodium chloride flush 0.9 % injection 5-40 mL 5-40 mL, IntraVENous, PRN, Starting on Mon05/18/22 at 0844, Until Discontinued, Line Care, After every IV line use, For Line Patency: Peripheral IV = 5 mL; Midline or Central Line = 10 mL/lumen. If following IV push medication, administer flush at same rate as the IV push. Flush volume is determined by type of infusion therapy being given. For non-viscous solutions use: Peripheral IV = 5 mL Midline or Central Line = 10 mL/lumen For viscous solutions (i.e. blood components, parenteral nutrition, contrast media, or after obtaining blood sample) use: Peripheral IV = 10 mL Midline or Central Line = 20 mL/lumen, PACU only sterile water for irrigation (CANCELED) PRN, Starting on Mon05/18/22 at 0820, Intra-op 0820 (Given - Provid er: Beltran Izaguirre MD) Linked Groups Order Group 1: dextrose bolus 10% 125 mLJump to med 125 mL, IntraVENous, at 937.5 mL/hr, Administer over 8 Minutes, PRN, Other, Blood glucose 40 - 69 mg/dL and patient NOT ALERT or NPO, Starting on Mon05/18/22 at 0844
Repeat blood glucose in 15 minutes. If blood glucose remains LESS THAN 70 mg/dL, repeat treatment and recheck blood glucose in 15 minutes x 2. If using glycemic management system, dose as instructed per system. If blood glucose remains LESS THAN 70 mg/dL after 2 intravenous boluses start dextrose 10% at 100 mL/hour and notify provider.
PACU only Or dextrose bolus 10% 250 mLJump to med 250 mL, IntraVENous, at 937.5 mL/hr, Administer over 16 Minutes, PRN, Other, Blood glucose LESS THAN 40 mg/dL and patient NOT ALERT or NPO, Starting on Mon05/18/22 at 0844
Repeat blood glucose in 15 minutes. If blood glucose remains LESS THAN 70 mg/dL, repeat treatment and recheck blood glucose in 15 minutes x 2. If using glycemic management system, dose as instructed per system. If blood glucose remains LESS THAN 70 mg/dL after 2 intravenous boluses start dextrose 10% at 100 mL/hour and notify provider.
PACU only Group 2: labetalol (NORMODYNE;TRANDATE) injection 10 mgJump to med 10 mg, IntraVENous, EVERY 15 MIN PRN, 2 doses, Starting on Mon05/18/22 at 0844, Until Discontinued, High Blood Pressure, for SBP greater than 180 mmHg for 2 consecutive measurements taken from different sites.
If heart rate is 60 bpm or less hold labetalol and use hydralazine if ordered, otherwise contact provider. Inform provider if SBP is still greater than 180 mmHg, 10 minutes after second antihypertensive dose is administered.
PACU only Or hydrALAZINE (APRESOLINE) injection 10 mgJump to med 10 mg, IntraVENous, EVERY 15 MIN PRN, 2 doses, Starting on Mon05/18/22 at 0844, Until Discontinued, High Blood Pressure, for SBP greater than 180 mmHg for 2 consecutive measurements taken from different sites
If heart rate is greater than 60 bpm, hold hydralazine and use labetalol if ordered, otherwise contact provider. Inform provider if SBP is still greater than 180 mmHg 10 minutes after second antihypertensive dose is administered.
PACU only Care Teams (unrecognized sec tion and content) Staff Design Engineer Relationship Specialty Start Date End Date Magalie Henning ELECTRIC NEEDLE SPECIALIST - [facility] [address] [place] [address] PCP - General Family Medicine 07/28/21 Staff Design Engineer Relationship Specialty Start Date End Date Magalie Henning ELECTRIC NEEDLE SPECIALIST [address] [place] [address] PCP - General Family Medicine 07/28/21 Staff Design Engineer Relationship Specialty Start Date End Date Magalie Henning ELECTRIC NEEDLE SPECIALIST [facility] [address] [place] [address] PCP - General Family Medicine 07/28/21 Staff Design Engineer Relationship Specialty Start Date End Date Magalie Henning ELECTRIC NEEDLE SPECIALIST [facility] [address] [place] [address] PCP - General Family Medicine 07/28/21 Staff Design Engineer Relationship Specialty Start Date End Date Guille Alicea MD [address] [place] [id number] PCP - General Family Medicine 05/18/22 Staff Design Engineer Relationship Specialty Start Date End Date Beth Elias APRN [facility] [address] [place] [address] PCP - General 07/26/22 Source Comments (unrecognize d section and content) In the event this informatio n is protected by the [facility] Confidentiality of Alcohol and Drug Abuse Patient Records regulations: The Federal rules restrict any use of the information to criminally investigate or prosecute any alcohol or drug abuse patient.[facility] the event this information is protected by the Federal Confidentiality of Alcohol and Drug Abuse Patient Records regulations: The Federal rules restrict any use of the information to criminally investigate or prosecute any alcohol or drug abuse patient.[facility] the event this information is protected by the Federal Confidentiality of Alcohol and Drug Abuse Patient Records regulations: The Federal rules restrict any use of the information to criminally investigate or prosecute any alcohol or drug abuse patient.[facility] FOR RECORDS PERTAINING TO PATIENTS WHO ARE OR HAVE BEEN ENROLLED IN A CHEMICAL DEPENDENCY/SUBSTANCEABUSE PROGRAM, SOME INFORMATION MAY BE OMITTED. This clinical summary was aggregated from multiple sources. Caution should be exercised in using it in the provision of clinical care. This summary normalizes information from multiple sources, and as a consequence, information in this document may materially change the coding, format and clinical context of patient data. In addition, data may be omitted in some cases. CLINICAL DECISIONS SHOULD BE BASED ON THE PRIMARY CLINICAL RECORDS. [employer] [employer] [facility] provides no warranty or guarantee of the accuracy or completeness of information in this document.
[2024-03-11 10:44] VITALS: BP 144/89; PULSE 78; TEMP 37.3; O2SAT 97
[2024-03-11 11:23] VITALS: BP 160/84; PULSE 69; O2SAT 95
[2024-03-11] MEDS: BUPIVACAINE HCL 0.25% PF 25 MG/10 ML VIAL INJ (11:23)
[2024-03-11] MEDS: TRIAMCINOLONE ACETONIDE 40 MG/ML VIAL 80 MG INJ (11:23)
[2024-03-11] MEDS: LIDOCAINE HCL 2% 400 MG/20 ML MDV 5 ML INJ (11:23)
[2024-03-11] MEDS: IOHEXOL 240 MG/ML - 10 ML VIAL INJ (11:23)
[2024-03-11] MEDS: 0.9 % SODIUM CHLORIDE 10 ML SYRINGE - SALINE FLUSH INJ (11:23)
[2024-03-11 11:24] VITALS: BP 164/88; PULSE 71; O2SAT 97
--- NOTE | 2024-03-11 11:27 | P.ON_ITS ---
Date of procedure: 03/11/24 Pre-op diagnosis: Pain due to lumbar stenosis with neurogenic claudication Post-op diagnosis: same as pre-op Procedure: Procedure: Left L4-5, L5-S1 transforaminal epidural steroid injection Medications: Bupivacaine 0.25% 2cc, lidocaine 2% 1cc, kenalog 80mg The patient was seen and examined in the preoperative holding area.? Informed consent was obtained and placed on the chart.? Patient was brought to the medical procedure unit and placed in the prone position where a timeout was completed verifying the correct patient, procedure site, position, and planned special equipment using sterile aseptic technique.? Under direct fluoroscopic visualization a 25-gauge Quincke tipped spinal needle was advanced to the designated neural foramen where contrast dye was injected to show adequate spread.? The needle was inserted at level left L4-5. There was no evidence of vascular or adverse uptake.? Epidural spread was appreciated.? The above- mentioned injectate was then placed in a 1.5 mL aliquot preceded by negative aspiration.? The needle was removed. The needle was inserted and the procedure repeated at level left L5-S1.? The surgery site was covered.? Patient was taken to the postprocedural recovery area and monitored for an appropriate length of time before found suitable for discharge in the accompaniment of a responsible adult. Anesthesia: Local Surgeon: Erum Ye Pathology: none sent Condition: stable Disposition: no change
== END 2024-03-11 11:33 | disposition home or self-care (01) ==
LOC: SURGOUT 10:14
PROVIDERS: Visit Provider Anesthesiology
DX: M48.062 Spinal stenosis, lumbar region with neurogenic claudication (principal)
CPT/HCPCS: 64483; 64484; J0665; J3301; Q9966

== ENCOUNTER 2024-03-28 08:14 | Outpatient (OUT) | payer OTHER, SELFPAY ==
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
== END 2024-03-28 08:15 | disposition home or self-care (01) ==
LOC: PM 08:15
PROVIDERS: Visit Provider Nurse Practitioner
DX: M48.062 Spinal stenosis, lumbar region with neurogenic claudication (principal); M47.816 Spondylosis without myelopathy or radiculopathy, lumbar region; M79.18 Myalgia, other site
CPT/HCPCS: G0463

== ENCOUNTER 2024-06-26 08:07 | Outpatient (OUT) | payer OTHER, SELFPAY ==
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
== END 2024-06-26 08:08 | disposition home or self-care (01) ==
LOC: PM 08:07
PROVIDERS: Visit Provider Nurse Practitioner
DX: M48.062 Spinal stenosis, lumbar region with neurogenic claudication (principal); M47.816 Spondylosis without myelopathy or radiculopathy, lumbar region; M79.18 Myalgia, other site
CPT/HCPCS: G0463

== ENCOUNTER 2024-07-22 08:34 | Day surgery (SDC) | payer OTHER, SELFPAY ==
[2024-07-22 09:36] VITALS: BP 147/80; PULSE 61; TEMP 36.9; O2SAT 97
[2024-07-22 10:12] VITALS: BP 168/73; PULSE 65; O2SAT 97
[2024-07-22 10:13] VITALS: BP 161/74; PULSE 62; O2SAT 97
[2024-07-22] MEDS: 0.9 % SODIUM CHLORIDE 10 ML SYRINGE - SALINE FLUSH INJ (10:15)
[2024-07-22] MEDS: IOHEXOL 240 MG/ML - 10 ML VIAL 24 MG INJ (10:16)
[2024-07-22] MEDS: LIDOCAINE HCL 2% 400 MG/20 ML MDV 3 ML INJ (10:16)
[2024-07-22] MEDS: METHYLPREDNISOLONE ACETATE 80 MG/ML VIAL INJ (10:16)
[2024-07-22] MEDS: BUPIVACAINE HCL 0.25% PF 25 MG/10 ML VIAL INJ (10:16)
--- NOTE | 2024-07-22 10:16 | P.ON_ITS ---
Date of procedure: 07/22/24 Pre-op diagnosis: Pain due to lumbar stenosis with neurogenic claudication Post-op diagnosis: same as pre-op Procedure: Procedure: Left L4-5, L5-S1 transforaminal epidural steroid injection Medications: Bupivacaine 0.25% 2cc, lidocaine 2% 1cc, depomedrol 80mg The patient was seen and examined in the preoperative holding area.? Informed consent was obtained and placed on the chart.? Patient was brought to the medical procedure unit and placed in the prone position where a timeout was completed verifying the correct patient, procedure site, position, and planned special equipment using sterile aseptic technique.? Under direct fluoroscopic visualization a 25-gauge Quincke tipped spinal needle was advanced to the designated neural foramen where contrast dye was injected to show adequate spread.? The needle was inserted at level left L4-5. There was no evidence of vascular or adverse uptake.? Epidural spread was appreciated.? The above- mentioned injectate was then placed in a 1.5 mL aliquot preceded by negative aspiration.? The needle was removed. The needle was inserted and the procedure repeated at level left L5-S1.? The surgery site was covered.? Patient was taken to the postprocedural recovery area and monitored for an appropriate length of time before found suitable for discharge in the accompaniment of a responsible adult. Anesthesia: Local Surgeon: Erum Ye Pathology: none sent Condition: stable Disposition: no change
== END 2024-07-22 10:20 | disposition home or self-care (01) ==
LOC: SURGOUT 08:34
PROVIDERS: Visit Provider Anesthesiology
DX: M48.062 Spinal stenosis, lumbar region with neurogenic claudication (principal)
CPT/HCPCS: 64483; 64484; J0665; J1010; Q9966

== ENCOUNTER 2024-07-31 10:31 | Outpatient (OUT) | payer OTHER, SELFPAY ==
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
== END 2024-07-31 10:32 | disposition home or self-care (01) ==
LOC: PM 10:32
PROVIDERS: Visit Provider Nurse Practitioner
DX: M48.02 Spinal stenosis, cervical region (principal); M54.16 Radiculopathy, lumbar region; M47.816 Spondylosis without myelopathy or radiculopathy, lumbar region; M79.18 Myalgia, other site
CPT/HCPCS: G0463

== ENCOUNTER 2024-08-19 09:38 | Day surgery (SDC) | payer OTHER, SELFPAY ==
[2024-08-19 10:30] VITALS: BP 146/84; PULSE 69; TEMP 36.7; O2SAT 96
[2024-08-19 10:47] VITALS: BP 170/82; PULSE 70; O2SAT 96
[2024-08-19 10:48] VITALS: BP 167/82; PULSE 69; O2SAT 95
[2024-08-19] MEDS: BUPIVACAINE HCL 0.25% PF 25 MG/10 ML VIAL 2 ML INJ (10:54)
[2024-08-19] MEDS: 0.9 % SODIUM CHLORIDE 10 ML SYRINGE - SALINE FLUSH 2 ML INJ (10:54)
--- NOTE | 2024-08-19 10:54 | P.ON_ITS ---
Date of procedure: 08/19/24 Pre-op diagnosis: Pain due to left sciatica Post-op diagnosis: same as pre-op Procedure: Procedure: Left distal sciatic nerve block Medications: Bupivacaine 0.25% 4cc, depomedrol 80mg After informed consent was obtained and placed on the chart, the patient was brought to the medical procedures unit and placed in the prone position.? A timeout was completed verifying correct patient, procedure, site, positioning, and planned special equipment.? The area overlying the popliteal fossa was prepped and draped using aseptic technique. Ultrasound guidance was used to find the distal sciatic nerve, just before it branches into the tibial and common per michaud nerves. A 22-gauge, 4-inch Stimuplex needle with active tip was advanced through a skin wheal raised with 2% lidocaine in the area overlying the site of insertion. The needle was advanced until it abutted the sciatic nerve. A test injection was given with 1cc of the above solution, which showed appropriate spread around the sciatic nerve. ? The above-mentioned injectate was placed in three 1 mL aliquots preceded by negative aspiration without sequelae.? The needle was removed.? The needle insertion site was covered.? The patient was taken to the postprocedural recovery area and monitored for the appropriate length of time, and when the patient was found suitable for discharge in the accompaniment of a responsible adult. Anesthesia: Local Surgeon: Erum Ye Pathology: none sent Condition: stable Disposition: no change
[2024-08-19] MEDS: METHYLPREDNISOLONE ACETATE 80 MG/ML VIAL INJ (10:55)
[2024-08-19] MEDS: LIDOCAINE HCL 2% PF 100 MG/5 ML VIAL 4 ML INJ (10:55)
[2024-08-19] MEDS: IOHEXOL 240 MG/ML - 50 ML VIAL 24 MG INJ (10:55)
== END 2024-08-19 11:01 | disposition home or self-care (01) ==
LOC: SURGOUT 09:38
PROVIDERS: Visit Provider Anesthesiology
DX: M54.42 Lumbago with sciatica, left side (principal)
CPT/HCPCS: 64445; J0665; J1010; Q9966

== ENCOUNTER 2024-08-28 08:43 | Outpatient (OUT) | payer OTHER, SELFPAY ==
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
== END 2024-08-28 08:44 | disposition home or self-care (01) ==
LOC: PM 08:44
PROVIDERS: Visit Provider Nurse Practitioner
DX: M48.062 Spinal stenosis, lumbar region with neurogenic claudication (principal); M54.16 Radiculopathy, lumbar region; M47.816 Spondylosis without myelopathy or radiculopathy, lumbar region; M79.18 Myalgia, other site
CPT/HCPCS: G0463

== ENCOUNTER 2024-09-12 13:58 | Outpatient (OUT) | payer OTHER, SELFPAY ==
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
== END 2024-09-12 13:59 | disposition home or self-care (01) ==
LOC: PM 13:59
PROVIDERS: Visit Provider Nurse Practitioner
DX: M54.16 Radiculopathy, lumbar region (principal); M48.062 Spinal stenosis, lumbar region with neurogenic claudication; M47.816 Spondylosis without myelopathy or radiculopathy, lumbar region; M79.18 Myalgia, other site
CPT/HCPCS: G0463

== ENCOUNTER 2024-11-18 08:39 | Day surgery (SDC) | payer MEDICARE, SELFPAY ==
--- OUTSIDE RECORDS SUMMARY | 2024-11-18 08:42 | XMS_ITS | Clinical Summary ---
Author Organization [facility] Address [address] [place] [address] Care Team Providers Care Repairer Cylinder Heads Name Role Phone Unavailable Primary Care Provider Unavailabl e Allergies No known active allergies Medications gabapentin (NEURONTIN) 600 mg tablet Take 600 mg by mouth three times daily. Active clopidogrel (PLAVIX) 75 mg tablet Take 75 mg by mouth once daily. Active atorvastatin (LIPITOR) 20 mg tablet Take 20 mg by mouth once daily. Active metoprolol succinate ER (TOPROL XL) 200 mg 24 hr tablet Take 200 mg by mouth once daily. Active baclofen (LIORESAL) 10 mg tablet Take 1 tablet by mouth three times daily. 3 Active cilostazol (PLETAL) 100 mg tablet Take 100 mg by mouth twice daily. [address] (PROTONIX) 40 mg tablet Take 40 mg by mouth once daily. 3 Active triamcinolone acetonide (KENALOG) 0.1 % ointment Apply 1 application to affected area three times daily as needed. 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 Back pain, lumbosacral 08/23/2022 Encounters Date Type Department Care Team Description 10/23/2024 Travel from Last 3 Months Family History Medical History Relation Comments Cancer Mother Relation Status Comments Mother Social History Tobacco Use Types Packs/Day Years Used Date Smoking Tobacco: Every Day Cigarettes 1 47 Smokeless Tobacco: Never Tobacco Cessation:Ready to Q uit: Not Asked; Counseling Given: Not Answered Area Deprivation Index Answer Date Wilfrido rded National Score (1-100), lower number is lower ri sk 71 01/18/2023 State Score (1-10), lower number is lower risk 5 01/18/2023 Data from: https://www.neighborhoodatlas.medicine.[facility].edu/. Last address used for calculation [address] [facility] 01/18/2023 Sex and Gender Information Value Date Recorded Sex Assigned at Not on file Legal Sex Male 7:11 PM EDT Gender Identity Not on file Sexual Orientation Not on file Last Filed Vital Signs Vital Sign Reading Time Taken Comments Blood Pressure 140/82 01/18/2023 1:02 PM EDT Pulse - - Temperature - - Respiratory Rate - - Oxygen Saturation - - Inhaled Oxygen Concentration - - Weight 72.6 kg (160 lb) 01/18/2023 1:02 PM EDT Height 175.3 cm (5' 9 ) 01/18/2023 1:02 PM EDT Body Mass Index 23.63 01/18/2023 1:02 PM EDT Plan of Treatment Upcoming Encounters Date Type Department Care Team (Late st Contact Info) Description 11/25/2024 9:45 AM EDT Nurse Visit [facility] Vascular Surgery [facility] [address] [place] [address] ZOHREH 11/25/2024 10:15 AM EDT Office Visit [facility] Vascular Surgery [facility] [address] [place] [place] [address] [place] [address] [place] [address] PAD Health Maintenance Due Date Last Done Comments Anxiety Screening 09/30/1977 Depression Screening 09/30/1977 HIV Screening 09/30/1977 Hepatitis C Screening 09/30/1977 Lipid Screening 09/30/1994 CT Colonography 09/30/2004 Cologuard (FIT-DNA) 09/30/2004 Fecal Occult Blood 09/30/2004 Prostate Cancer Screening Discussion 09/30/2004 Sigmoidoscopy 09/30/2004 Shingrix Vaccine (1 of 2) 09/30/2009 Covid-19 Vaccine (3 - 2023-2 5 season) 2024 09/04/2020, 08/07/2020 Pneumococcal Vaccine: 50+ (2 of 2 - PPSV23) 06/07/2024 04/12/2024 Advance Directive Discussion 09/30/2024 Colonoscopy 02/20/2025 02/21/2024 Colorectal Cancer Screening 02/20/2025 Diabetes Screening 07/02/2027 07/02/2024, 0 07/02/2024, 05/02/2024, Additional history exists DTaP,Tdap,Td Vaccine (3 - Td or Tdap) 08/22/2031 08/21/2021, 03/24/2017 RSV Vaccine (1 - 1-dose 75+ series) 09/30/2034 Abdominal Aortic Aneurysm Screening Completed 08/08/2022, 09/13/2021 Influenza Vaccine Completed 04/12/2024, 04/11/2019
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
--- OUTSIDE RECORDS SUMMARY | 2024-11-18 08:42 | XMS_ITS | Encounter Summary ---
Author Organization [facility] 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) Procedures US DUP LOWER EXTREMITY RIGHT [place]ER[place] [id number] [place] [address] [address] [place] [address] Phone: tel: fax: Referral ID Status Reason Start Date Expiration Date Visits Re quested Visits Authorized Closed 09/13/2021 08/30/2022 1 1 * Imaging (Routine) - Closed Specialty Diagnoses / Procedures Referred By Contac t Referred To Contact Radiology Diagnoses Abdominal aortic aneurysm without rupture Procedures [place] [address] [place] [address] Phone: tel: fax: Referral ID Status Reason Start Date Expiration Date Visits Re quested Visits Authorized Closed 09/13/2021 08/30/2022 1 1 Encounter Details Date Type Department Care Team (Latest Contact Info) Description 08/30/2021 Transcribe Orders Luis Patel [facility] [address] [place] [address] [place] [address] [place] [address] Abdominal aortic aneurysm without rupture (Primary Dx); 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) Social History Tobacco Use Types Packs/Day Years Used Date Smoking Tobacco: Every Day Cigarettes 1 55.5 Started: [birth year]/28/1970 Smokeless Tobacco: Never Alcohol Use Standard Drinks/Week Comments No 0 (1 standard drink = 0.6 oz pur e alcohol) Sex and Gender Information Value Date Recorded Sex Assigned at Not on file Legal Sex Male 2:52 PM EDT Gender Identity Not on file Sexual Orientation Not on file documented as of this encounter Plan of Treatment Upcoming Encounters Date Type Department Care Team (Late st Contact Info) Description 04/24/2025 1:15 PM EST Office Visit [facility] Cardiology [address] [facility] [facility] [address] [place] [address] Laci Dominique MD [address] [facility] [address] [place] [address] 6 month follow up 09/25/2025 1:30 PM EDT Office Visit [facility] Urology [address] [facility] [address]nd [place] [address] Anders Santiago PA-C [address] [facility] [facility] [address] [place] [address] 1 yr KUB documented as of this encounter Results * US SCREENING FOR AAA (09/13/2021 9:43 AM EDT) Anatomical Region Laterality Modality Ultrasound 09/29/2021 1:56 PM EDT Impressions 09/30/2021 3:38 PM EDT Patient is status post EVAR. No evidence of endoleak. Follow up guidelines are according to the Society of Vascular Surgery from 2009. Narrative 09/30/2021 3:38 PM EDT ABDOMINAL AORTA ULTRASOUND HISTORY: Patient is here for surveillance of his prior EVAR Technique: Sonography of the abdominal aorta was performed. Images were obtained and stored in a permanent archive. COMPARISON: None RESULT: AORTA (AP x TV): Proximal: 2.50 x 2.87 cm Mid (Level of renal arteries): 1.94 x 1.99 cm Distal: 1.1 x 1.1 cm Common Iliac Arteries (AP x TV): Right: 1.43 x 0.98 cm Left: 1.16 x 0.88 cm AAA: 7.48 x 4.84 x 4.67 cm Procedure Note Amilcar Yan MD - 09/30/2021 ABDOMINAL AORTA ULTRASOUND HISTORY: Patient is here for surveillance of his prior EVAR Technique: Sonography of the abdominal aorta was performed. Images wereobtained and stored in a permanent archive. COMPARISON: None RESULT: AORTA (AP x TV): Proximal: 2.50 x 2.87 cm Mid (Level of renal arteries): 1.94 x 1.99 cm Distal: 1.1 x 1.1 cm Common Iliac Arteries (AP x TV): Right: 1.43 x 0.98 cm Left: 1.16 x 0.88 cm AAA: 7.48 x 4.84 x 4.67 cm IMPRESSION: Patient is status post EVAR. No evidence of endoleak. Follow up guidelines are according to the Society of Vascular Surgery [id number]. us Amilcar Yan MD IMG US ORDERABLES Final Resul t * US DUP LOWER EXTREMITY RIGHT ARTERIES (09/13/2021 9:13 AM EDT) Anatomical Region Laterality Modality Ultrasound 09/29/2021 2:00 PM EDT Impressions 09/30/2021 3:39 PM EDT PATENT RIGHT COMMON FEMORAL ARTERY ENDARTERECTOMY Narrative 09/30/2021 3:39 PM EDT EXAMINATION: RIGHT LOWER EXTREMITY ARTERIAL DUPLEX CLINICAL HISTORY: PATIENT IS STATUS POST RIGHT FEMORAL ENDARTERECTOMY COMPARISONS: None REASON FOR EXAMINATION: As above FINDINGS: The following arteries were evaluated of the right leg: BULK CLERK, SFA, popliteal artery and a few of the runoff vessels. The measurements of the systolic velocities at the various levels of these arteries are noted below. Right leg: Triphasic waveforms are noted throughout the right lower extremity with no doubling of velocities noted. RIGHT PEAK SYSTOLIC FLOW RATE (cm/sec) Common Femoral 174 FA Prox 109 FA Mid 122 FA Dst 69 Popliteal Mid 66 Ant Tib Prx 72 Ant Tib Mid 32 Ant Tib Dst 27 Post Tib Prx 74 Post Tib Mid 51 Post Tib Dst 56 Peroneal Prx 41 Peroneal Mid 37 Peroneal Dist 35 Procedure Note Amilcar Yan MD - 09/30/2021 EXAMINATION: RIGHT LOWER EXTREMITY ARTERIAL DUPLEX CLINICAL HISTORY: PATIENT IS STATUS POST RIGHT FEMORAL ENDARTERECTOMY COMPARISONS: None REASON FOR EXAMINATION: As above FINDINGS: The following arteries were evaluated of the right leg: BULK CLERK,SFA, popliteal artery and a few of the runoff vessels. The measurements ofthe systolic velocities at the various levels of these arteries are notedbelow. Right leg: Triphasic waveforms are noted throughout the right lowerextremity with no doubling of velocities noted. 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
--- OUTSIDE RECORDS SUMMARY | 2024-11-18 08:42 | XMS_ITS | Encounter Summary ---
Author Organization [facility] Address [address] [place] [address] Care Team Providers Care Tailer Off Name Role Phone Sherie Ramon BERNARD - SHIP SCALER Primary Care Provider + Reason for Referral * Imaging (Routine) - Closed Specialty Diagnoses / Procedures Referred By Contac t Referred To Contact Radiology Diagnoses Atherosclerosis of [place] artery of both lower extremities with intermittent claudication Abdominal aortic aneurysm without rupture Procedures CTA ABDOMINAL AORTA W [place]IL[place] [address] [place] [address] Phone: tel: fax: Referral ID Status Reason Start Date Expiration Date Visits Re quested Visits Authorized [id number] Closed 03/16/2021 05/14/2021 1 1 Encounter Details Date Type Department Care Team (Latest Contact Info) Description 03/15/2021 Transcribe Orders Luis Patel Pre Access [address] [place] [address] [place] [address] [place] [address] Atherosclerosis of [place] artery of both lower extremities with intermittent claudication (Primary Dx); Abdominal aortic aneurysm without rupture Social History Tobacco Use Types Packs/Day Years Used Date Smoking Tobacco: Every Day Cigarettes Smokeless Tobacco: Never Alcohol Use Standard Drinks/Week Comments No 0 (1 standard drink = 0.6 oz pur e alcohol) Sex and Gender Information Value Date Recorded Sex Assigned at Not on file Legal Sex Male 2:52 PM EDT Gender Identity Not on file Sexual Orientation Not on file COVID-19 Exposure Response Date Recorded In the last month, have you been in contact with someone who was confirmed or suspected to have Coronavirus / COVID-19? No / Unsure 03/17/2021 1:27 PM EDT documented as of this encounter Plan of Treatment Upcoming Encounters Date Type Department Care Team (Late st Contact Info) Description 04/24/2025 1:15 PM EST Office Visit [facility] Cardiology [address] [place] [address] [place] [address] Laci Dominique MD [address] [facility] [address] [place] [address] 6 month follow up 09/25/2025 1:30 PM EDT Office Visit [facility] [address] [facility] [address] [place] [address] Anders Santiago PA-C [address] [place] [address] [place] [id number] 1 yr KUB documented as of this encounter Results * CTA ABDOMINAL AORTA W BILAT RUNOFF W WO CONTRAST (03/17/2021 2:08 PM EDT) Anatomical Region Laterality Modality Abdomen, Vascular, Pelvis Comput ed Tomography 03/17/2021 2:41 PM EDT Impressions 03/17/2021 2:59 PM EDT Infrarenal abdominal aortic aneurysm with maximum AP and transverse dimension 5.4 x 5.6 cm, extending caudally to aortic bifurcation. Occlusion left superficial femoral artery beginning just distal to origin, with reconstitution occurring at level of inferior geniculate arteries. 2 vessel left lower extremity distal runoff via anterior tibial and posterior tibial arteries. Peroneal artery identified to level of distal tibia proximal to tibial plafond. Three-vessel right lower extremity distal runoff via anterior tibial, posterior tibial, and peroneal arteries. Hypoplastic left internal iliac artery. 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 Nonobstructing left renal calculus. All CT scans at this facility use dose modulation, iterative reconstruction, and/or weight based dosing when appropriate to reduce radiation dose to as low as reasonably achievable. Narrative 03/17/2021 2:59 PM EDT CTA abdomen, pelvis, bilateral lower extremities, with intravenous contrast medium. History: Bilateral intermittent lower extremity claudication. Dominantly aortic aneurysm. Technical Factors: CTA imaging of the abdomen, pelvis, bilateral lower extremities, were obtained and formatted as 5 mm contiguous axial images from the domes of the diaphragm to the ankles. Overlap, 3-D MIP, sagittal, and coronal reconstructions were also obtained. Oral contrast medium: None. Intravenous contrast medium: Isovue-370, 100 mL. Comparison: CT abdomen pelvis, February 08, 2021. Bilateral lower extremity color flow arterial Doppler sonography, March 04, 2021. Findings: Lungs: Lung bases are clear. Liver: Normal in size, shape, and attenuation. Bile Ducts: Normal in caliber. Gallbladder: No stones or wall thickening. Pancreas: Normal without masses, cysts, ductal dilatation or calcification. Spleen: Normal in size without masses or calcifications. No splenules. Kidneys: Normal in size and enhancement. No hydronephrosis, masses, calculi right kidney. 6.6 mm calculus upper pole left kidney. 2 cm cyst anterior lower pole left kidney. No left hydronephrosis. Adrenals: Normal. Small bowel: Normal in caliber. Appendix: Normal. Colon: Normal in caliber. Diverticular change, sigmoid colon. Peritoneum: No ascites, free air, or fluid collections. Lymph nodes: Retroperitoneal: No enlarged retroperitoneal lymph nodes. Mesenteric: No enlarged mesenteric lymph nodes. Pelvic: No enlarged pelvic lymph nodes. Ureters: Normal in course and caliber. No calcifications. Bladder: No wall thickening. Prostate: Upper limits of normal with transverse diameter 5 cm. Abdominal Wall: No hernia identified Bones: No bone lesions. Diffuse disc space narrowing L3-4, L5-S1. No post operative changes. Vessels: Infrarenal abdominal aortic aneurysm with maximum AP and transverse diameter 5.4 cm x 5.6 cm extending caudally to aortic bifurcation (series 2, image 37). Celiac artery, superior mesenteric artery, and bilateral main renal arteries patent. Inferior mesenteric artery patent and arises at junction of abdominal aorta and left common iliac artery. Portal vein, splenic vein, superior mesenteric vein are patent. On the right side, the right common, internal, and external iliac arteries are patent. The right common femoral profunda femoral arteries are patent. Right superficial femoral artery patent right popliteal artery patent. Right anterior tibial artery identified and in continuity from origin to ankle. Right posterior tibial artery patent from level of origin and to level of ankle. Right peroneal artery identified from the level of origin to the level of ankle. On the left side, the left common and external iliac arteries are patent. The left internal iliac artery is patent but hypoplastic. Left common femoral and profunda femoral arteries patent. Origin left superficial femoral artery patent but quickly occludes at level of proximal left thigh reconstitution via geniculate and profunda femoral branches near abductor canal. Left popliteal artery patent. Left anterior tibial artery patent from its origin the level of ankle. Left posterior tibial artery patent from level of origin the level of ankle. Left peroneal artery patent from level of origin to distal left tibia. Procedure Note Signer, MD Lazaro - 03/17/2021 CTA abdomen, pelvis, bilateral lower extremities, with intravenouscontrast medium. History: Bilateral intermittent lower extremity claudication. Dominantlyaortic aneurysm. Technical Factors: CTA imaging of the abdomen, pelvis, bilateral lower extremities, wereobtained and formatted as 5 mm contiguous axial images from the domes ofthe diaphragm to the ankles. Overlap, 3-D MIP, sagittal, and coronalreconstructions were also obtained. Oral contrast medium: None. Intravenous contrast medium: Isovue-370, 100 mL. Comparison: CT abdomen pelvis, February 08, 2021. Bilateral lowerextremity color flow arterial Doppler sonography, March 04, 2021. Findings: Lungs: Lung bases are clear. Liver: Normal in size, shape, and attenuation. Bile Ducts: Normal in caliber. Gallbladder: No stones or wall thickening. Pancreas: Normal without masses, cysts, ductal dilatation orcalcification. Spleen: Normal in size without masses or calcifications. No splenules. Kidneys: Normal in size and enhancement. No hydronephrosis, masses,calculi right kidney. 6.6 mm calculus upper pole left kidney. 2 cm cystanterior lower pole left kidney. No left hydronephrosis. Adrenals: Normal. Small bowel: Normal in caliber. Appendix: Normal. Colon: Normal in caliber. Diverticular change, sigmoid colon. Peritoneum: No ascites, free air, or fluid collections. Lymph nodes: Retroperitoneal: No enlarged retroperitoneal lymph nodes. Mesenteric: No enlarged mesenteric lymph nodes. Pelvic: No enlarged pelvic lymph nodes. Ureters: Normal in course and caliber. No calcifications. Bladder: No wall thickening. Prostate: Upper limits of normal with transverse diameter 5 cm. Abdominal Wall: No hernia identified Bones: No bone lesions. Diffuse disc space narrowing L3-4, L5-S1. No post operative changes. Vessels: Infrarenal abdominal aortic aneurysm with maximum AP andtransverse diameter 5.4 cm x 5.6 cm extending caudally to aorticbifurcation (series 2, image 37). Celiac artery, superior mesenteric artery, and bilateral main renalarteries patent. Inferior mesenteric artery patent and arises at junctionof abdominal aorta and left common iliac artery. Portal vein, splenic vein, superior mesenteric vein are patent. On the right side, the right common, internal, and external iliac arteriesare patent. The right common femoral profunda femoral arteries are patent.Right superficial femoral artery patent right popliteal artery patent.Right anterior tibial artery identified and in continuity from origin to ankle. Right posterior tibialartery patent from level of origin and to level of ankle. Right peronealartery identified from the level of origin to the level of ankle. On the left side, the left common and external iliac arteries are patent.The left internal iliac artery is patent but hypoplastic. Left commonfemoral and profunda femoral arteries patent. Origin left superficialfemoral artery patent but quickly occludes at level of proximal left thigh reconstitution via geniculate andprofunda femoral branches near abductor canal. Left popliteal arterypatent. Left anterior tibial artery patent from its origin the level ofankle. Left posterior tibial artery patent from level of origin the level of ankle. Left peroneal arterypatent from level of origin to distal left tibia. IMPRESSION: Infrarenal abdominal aortic aneurysm with maximum AP and transversedimension 5.4 x 5.6 cm, extending caudally to aortic bifurcation. Occlusion left superficial femoral artery beginning just distal to origin,with reconstitution occurring at level of inferior geniculate arteries. 2 vessel left lower extremity distal runoff via anterior tibial andposterior tibial arteries. Peroneal artery identified to level of distaltibia proximal to tibial plafond. Three-vessel right lower extremity distal runoff via anterior tibial,posterior tibial, and peroneal arteries. Hypoplastic left internal iliac artery. Inferior mesenteric artery arises at junction abdominal aorta and leftcommon iliac artery. Nonobstructing left renal calculus. All CT scans at this facility use dose modulation, iterativereconstruction, and/or weight based dosing when appropriate to reduceradiation dose to as low as reasonably achievable. Amilcar Yan MD IMRuchi CT ORDERABLES Final Resul t documented in this encounter Visit Diagnoses Diagnosis Atherosclerosis of [place] artery of both lower extremities with intermittent claudication- Primary Atherosclerosis of [place] arteries of the extremities with intermittent claudication Abdominal aortic aneurysm without rupture Abdominal aneurysm without mention of rupture Atherosclerosis of [place] artery of both lower extremities with intermittent claudication Atherosclerosis of [place] arteries of the extremities with intermittent claudication Abdominal aortic aneurysm without rupture Abdominal aneurysm without mention of rupture documented in this encounter Additional Health Concerns Infection Onset Date Last Indicated Resolved Time COVID-19 (Rule Out) 05/28/2021 05/28/2021 05/29/19 22 8:40 AM EST documented as of this encounter Care Teams Tailer Off Relationship Specialty Start Date End Date Sherie Ramon APRN - SHIP SCALER PCP - General 07/26/22 documented as of this encounter
--- OUTSIDE RECORDS SUMMARY | 2024-11-18 08:42 | XMS_ITS | Encounter Summary ---
Author Organization [facility] Address [address] [place] [address] Care Team Providers Care Sales Representative [employer] Name Role Phone Sherie Ramon BERNARD - [employer] Primary Care Provider + Reason for Referral * Imaging (Routine) - Closed Specialty Diagnoses / Procedures Referred By Contac t Referred To Contact Radiology Diagnoses Lumbosacral radiculopathy M54.17 (ICD-10-CM) - Lumbosacral radiculopathy Procedures CT LUMBAR SPINE WO CONTRAST CHG CT LUMBAR SPINE W/O CONTRAST MATERIAL [address] - CHG CT LUMBAR SPINE W/O CONTRAST MATERIAL Jillian Aranda PA [address] [place] [address] Phone: tel: fax: Referral ID Status Reason Start Date Expiration Date Visits Re quested Visits Authorized [id number] Closed 01/25/2023 01/30/2024 1 1 Encounter Details Date Type Department Care Team (Late st Contact Info) Description 01/30/2023 Transcribe Orders Luis Patel Pre Access [address] [place], [place] [phone] Jillian Aranda PA [address] [place] [address] Lumbosacral radiculopathy (Primary Dx) Social History Tobacco Use Types Packs/Day Years [...] Description 04/24/2025 1:15 PM EST Office Visit [facility] Cardiology [address] [facility] [address] [place] [address] Laci Dominique MD [address] [facility] [address] [place] [address] 6 month follow up 09/25/2025 1:30 PM EDT Office Visit [facility] Urology [address] [facility] 2nd [place] [address] Anders Santiago, PAAna [address] [place] [address] [address] 1 yr KUB documented as of this encounter Results * CT LUMBAR SPINE WO CONTRAST (02/02/2023 9:10 AM EDT) Anatomical Region Laterality Modality T-spine, L-spine, Pelvis Compute d Tomography 02/02/2023 1:38 PM EDT Impressions 02/02/2023 1:45 PM EDT Lumbar spondylosis at L3-4 through L5-S1. This is highlighted by severe right neural foraminal narrowing at L3-4, contacting the nerve root Narrative 02/02/2023 1:45 PM EDT EXAMINATION: CT OF THE LUMBAR SPINE WITHOUT CONTRAST 02/02/2023 TECHNIQUE: CT of the lumbar spine was performed without the administration of intravenous contrast. Multiplanar reformatted images are provided for review. Adjustment of mA and/or kV according to patient size was utilized. Automated exposure control, iterative reconstruction, and/or weight based adjustment of the mA/kV was utilized to reduce the radiation dose to as low as reasonably achievable. COMPARISON: None HISTORY: ORDERING SYSTEM PROVIDED HISTORY: Lumbosacral radiculopathy TECHNOLOGIST PROVIDED HISTORY: What reading provider will be dictating this exam?->CRC FINDINGS: BONES/ALIGNMENT: There is normal alignment of the spine. The vertebral body heights are maintained. No osseous destructive lesion is seen. DEGENERATIVE CHANGES: L1-2: No disc herniation L2-3: Mild annular disc bulge L3-4: Large annular disc bulge, eccentric to the right lateral zone, with osteophyte formation. There is mild canal stenosis. There is advanced right neural foraminal narrowing with contacting of the nerve root. L4-5: There is mild annular disc bulge, eccentric to the left foraminal and lateral zone. There is advanced right and mild right neural foraminal narrowing along with moderate canal stenosis. L5-S1: There is a moderate annular disc bulge with vacuum disc phenomenon. There is moderate left and [id number] right neural foraminal narrowing. SOFT TISSUES/RETROPERITONEUM: Aorta bi-iliac stenting. Sigmoid diverticula without inflammation. Nonobstructive right renal stone. Procedure Note Sharath Moody MD - 02/02/2023 EXAMINATION: CT OF THE LUMBAR SPINE WITHOUT CONTRAST 02/02/2023 TECHNIQUE: CT of the lumbar spine was performed without the administration of intravenous contrast. Multiplanar reformatted images are provided forreview. Adjustment of mA and/or kV according to patient size was utilized.Automated exposure control, iterative reconstruction, and/or weight based adjustmentof the mA/kV was utilized to reduce the radiation dose to as low asreasonably achievable. COMPARISON: None HISTORY: ORDERING SYSTEM PROVIDED HISTORY: Lumbosacral radiculopathy TECHNOLOGIST PROVIDED HISTORY: What reading provider will be dictating this exam?->CRC FINDINGS: BONES/ALIGNMENT: There is normal alignment of the spine. The vertebralbody heights are maintained. No osseous destructive lesion is seen. DEGENERATIVE CHANGES: L1-2: No disc herniation L2-3: Mild annular disc bulge L3-4: Large annular disc bulge, eccentric to the right lateral zone,with osteophyte formation. There is mild canal stenosis. There is advancedright neural foraminal narrowing with contacting of the nerve root. L4-5: There is mild annular disc bulge, eccentric to the left foraminaland lateral zone. There is advanced right and mild right neural foraminal narrowing along with moderate canal stenosis. L5-S1: There is a moderate annular disc bulge with vacuum discphenomenon. There is moderate left and [id number] right neural foraminalnarrowing. SOFT TISSUES/RETROPERITONEUM: Aorta bi-iliac stenting. Sigmoiddiverticula without inflammation. Nonobstructive right renal stone. IMPRESSION: Lumbar spondylosis at L3-4 through L5-S1. This is highlighted by severe right neural foraminal narrowing at L3-4, contacting the nerve root Jillian ORTA IMG CT ORDERABLES Final Resul t documented in this encounter Visit Diagnoses Diagnosis Lumbosacral radiculopathy- Primary Thoracic or lumbosacral neuritis or radiculitis, unspecified Lumbosacral radiculopathy Thoracic or lumbosacral neuritis or radiculitis, unspecified documented in this encounter Care Teams Sales Representative [employer] Relationship Specialty Start Date End Date Sherie Ramon APRN - [employer] PCP - General 07/26/22 documented as of this encounter
--- OUTSIDE RECORDS SUMMARY | 2024-11-18 08:42 | XMS_ITS | Clinical Summary ---
Author Organization [facility] Address [address] [place] [address] Care Team Providers Care Assistant Chief Engineer Name Role Phone Unavailable Primary Care Provider Unavailabl e Allergies No known active allergies Encounters Date Type Department Care Team Description 09/03/2024 2:00 PM EDT Procedure Visit [facility] [address] [id number] Guille Phillips DO Lumbar radiculopathy (Primary Dx) from Last 3 Months Social History Tobacco Use Types Packs/Day Years Used Date Smoking Tobacco: Never Assessed Sex and Gender Information Value Date Recorded Sex Assigned at Not on file Legal Sex Male 6:38 PM EDT Gender Identity Not on file Sexual Orientation Not on file Plan of Treatment Health Maintenance Due Date Last Done Comments CT Colonography 1959 FIT-DNA 1959 FIT 1959 FOBT 1960 Sigmoidoscopy 1960 Pneumococcal Vaccine: 65+ Ye ars (2 of 2 - PPSV23) 04/12/2025 04/12/2024 Colonoscopy 06/10/2034 06/10/2024, 06/10/2024 Colorectal Cancer Screening 06/10/2034 Influenza Vaccine Completed 04/12/2024, 04/11/2019 Procedures Procedure Name Priority Date/Time Associated Diagnosis Comments [facility] EMG 1 EXTREMEITY Routine 09/03/2024 2:27 PM EDT Lumbar radiculopathy [facility] NVC 5-6 NERVES Routine 09/03/2024 2:27 PM EDT Lumbar radiculopathy from Last 3 Months Results * EMG 1 Extremeity (09/03/2024 2:27 PM EDT) Narrative Alan Guille, DO - 09/03/2024 2:27 PM EDT L5 radiculopathy on the left, mild Guille Phillips DO NEUROLOGY ORDERABLES Lara l Result * NVC 5-6 Nerves (09/03/2024 2:27 PM EDT) Mayelin Alan Guille - 09/03/2024 2:27 PM EDT L5 radiculopathy on the left, mild Guille Phillips DO NEUROLOGY ORDERABLES Lara l Result from Last 3 Months Insurance [employer]
--- OUTSIDE RECORDS SUMMARY | 2024-11-18 08:42 | XMS_ITS | Clinical Summary ---
Author Organization [facility] Address [address] [place] [address] Care Team Providers Care Board Setter Name Role Phone Sherie Ramon LIPSTICK MOLDER - SILO FILLER Primary Care Provider + Allergies No known active allergies Medications baclofen (LIORESAL) 10 MG tablet TAKE 1 TABLET BY MOUTH THREE TIMES DAILY NEEDED for muscle pain 1 Active gabapentin (NEURONTIN) 600 MG tablet TAKE 1 TABLET BY MOUTH THREE TIMES DAILY 2 Active atorvastatin (LIPITOR) 20 MG tablet Take 1 tablet by mouth daily 90 tablet 3 3 Active rOPINIRole (REQUIP) 1 MG tablet Take 2 tablets by mouth nightly 4 Active buPROPion (WELLBUTRIN SR) 150 MG extended release tablet Take 1 tablet by mouth 2 times daily 60 tablet 3 4 Active tamsulosin (FLOMAX) 0.4 MG capsule Take 1 capsule by mouth daily 30 capsule 3 4 Active nicotine (NICODERM CQ) 14 MG/24HR Place 1 patch onto the skin daily 30 patch 3 4 Active Vitamin D (CHOLECALCIFEROL) 50 MCG (1999 UT) TABS tablet Take 1 tablet by mouth Daily with supper 60 tablet 4 4 Active metoprolol succinate (TOPROL XL) 25 MG extended release tablet TAKE 1 TABLET BY MOUTH EVERY DAY 90 tablet 1 5 Active pantoprazole (PROTONIX) 40 MG tabletIndications :Essential hypertension Take 1 tablet by mouth daily 90 tablet 3 5 Active clopidogrel (PLAVIX) 75 MG tablet Take 1 tablet by mouth daily 90 tablet 3 5 Active Active Problems Problem Noted Date Diagnosed Date Kidney stones 09/13/2024 Ileostomy dysfunction 06/10/2024 Candidiasis 04/26/2024 Oral candidiasis 04/25/2024 Primary hypertension 04/23/2024 Post-op pain 04/22/[address] 04/22/2024 Diverticulitis of sigmoid colon 04/16/2024 Constipation 04/16/2024 Dry skin dermatitis 04/16/2024 Multiple joint pain 04/16/2024 Rheumatoid arthritis 04/16/2024 Impaired mobility & ADLs dt RA flare sp debility iliostomy 04/16/2024 Shock 04/15/2024 Urinary retention 04/15/2024 Status post splenectomy 04/12/2024 Assessment & Plan (05/07/2024 2:12 PM EST): New, at goal (stable), needs routine vaccination as discussed with patient and Hemorrhagic shock 04/11/2024 Diverticulitis 04/10/2024 Perforation and abscess of l arge intestine concurrent with and due to diverticulitis 03/22/2024 Assessment & Plan (05/07/2024 2:12 PM EST): New and at goal DC PICC line. 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 Spondylosis of lumbar spine 02/26/2024 History of colonic polyps 02/13/2024 Overview (02/21/2024): Problem List Diagnosis Replacement Utility 02/20/2024 Herniated lumbar intervertebral disc 08/23/2022 Thrombosis of arteries of lower extremity 2022 Mixed hyperlipidemia 03/17/2022 Sciatica 03/16/2022 Smoker 12/28/2021 Peripheral vascular disease 12/28/2021 AAA (abdominal aortic aneurysm) without rupture 06/03/2021 Iliac artery stenosis, left 05/28/2021 Thrombosis of both common femoral arteries 05/28 Edema of left lower leg due to peripheral venous insufficiency 03/16/2021 Atherosclerosis of [place] teries of extremities with intermittent claudication, left leg 03/16/2021 Colonic diverticular abscess 01/13/2021 Tobacco use 01/13/2021 Chronic 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 Added secondary to documentation in Social History. Chest pain 09/29/2014 GERD (gastroesophageal reflux disease) 5 AAA (abdominal aortic aneurysm) Lumbar degenerative disc disease Hypokalemia Labile blood pressure Resolved Problems Problem Noted Date Diagnosed Date Resolved Date Colon cancer screening 05/07/202406/06 Colon cancer screening 05/18/202203/22 Encounters Date Type Department Care Team Description 10/28/2024 1:59 PM EDT - 10/30/2024 11:59 PM EDT Hospital Encounter [facility] Ultrasound [address] [place] [address] Laci Dominique MD Bilateral carotid bruits Discharge Disposition: Home or Self Care 10/17/2024 2:00 PM EDT Office Visit [facility] Cardiology [address] [facility] [address] [place] [id number] Laci Dominique MD Essential hypertension (Primary Dx); Abdominal aortic aneurysm (AAA) without rupture, unspecified part; 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); PAD (peripheral artery disease); Hyperlipidemia, unspecified hyperlipidemia type; Bilateral carotid bruits; Atherosclerosis of [place] arteries of extremities with intermittent claudication, left leg 09/23/2024 Results Follow-Up [facility] Specialty Providers on Main [place] [id number] Violetta Murray APRN - SILO FILLER 09/22/2024 Refill [facility] Physical Medicine and Rehabilitation [address] [place] [address] Bárbraa Dong, Medication Refill 09/19/2024 1:30 PM EDT Office Visit [facility] Urology [address] [facility] 2nd [place] [address] Anders Santiago PA-C Kidney stones (Primary Dx); BPH with obstruction/lower urinary tract symptoms 09/17/2024 4:38 PM EDT - 09/19/2024 11:59 PM EDT Hospital Encounter [facility] Radiology [address] [place] [address] Kidney stones Discharge Disposition: Home or Self Care 09/17/2024 4:29 PM EDT - 09/19/2024 11:59 PM EDT Hospital Encounter [facility] Radiology [address] [place] [address] Discharge Disposition: Home or Self Care 09/13/2024 Orders Only [facility] Urology [address] [facility] 2nd [place] [address] Anders Santiago PA-C Kidney stones (Primary Dx) 09/02/2024 Refill [facility] Heart Failure Center [address] [place] [id number] Laci Dominique MD Medication Refill from Last 3 Months Immunizations Immunization Administration Dates Next Due Hib PRP-T, ACTHIB (age 2m-5y , Adlt Risk), HIBERIX (age 6w-4y, Adlt Risk), IM, 0.5mL 04/12/2024 Influenza, AFLURIA, FLUZONE, (age3 y+), IM, Trivalent MDV, 0.5mL 04/12/2024 Meningococcal ACWY, MENVEO ( MenACWY-CRM), (age 2m-55y), IM, 0.5mL 04/12/2024 Meningococcal B, BEXSERO, (age 10y-25y), IM, 0.5 mL 04/12/2024 Pneumococcal, PCV-13, PREVNAR 13, (age 6w+), IM, 0.5mL 04/12/2024 Family History Medical History Relation Name Comments No Known Problems Brother x 1 No Known Problems Daughter x 1 Cancer Father Primary site un known to patient Cancer Mother Primary site un known to patient Heart Disease Mother No Known Problems Sister x 3 No Known Problems Son x 1 Relation Name Status Comments Brother x 1 Alive Daughter x 1 Alive Father Mother Sister x 3 Alive Son x 1 Alive Social History Tobacco Use Types Packs/Day Years Used Date Smoking Tobacco: Former Cigarettes 1 55.5 S tarted: 05/28/1969 Passive Smoke Exposure: Past Smokeless Tobacco: Never Tobacco Cessation:Counseling Given: Not Answered Alcohol Use Standard Drinks/Week Comments No 0 (1 standard drink = 0.6 oz pur e alcohol) [place] Utilities Answer Date Recorded In the past 12 months has e [employer], gas, oil, or water [employer] threatened to shut off services in your [...] any time in the past 12 m [facility], were you homeless or living in a jail (including now)? No 04/20/2024 Food Insecurity Answer [...] Sign Reading Time Taken Comments Blood Pressure 150/82 10/17/2024 2:25 PM EDT Pulse 75 10/17/2024 2:25 PM EDT Temperature 36.7 C (98 F) 07/16/2024 10:15 AM EST Respiratory Rate 18 07/03/2024 1:21 PM EST Oxygen Saturation 93% 10/17/2024 2:25 PM EDT Inhaled Oxygen Concentration - - Weight 85.1 kg (187 lb 9.6 oz) 10/17/2024 2:25 P M EDT Height 175.3 cm (5' 9.02 ) 09/19/2024 1:18 PM ED T Body Mass Index 27.69 09/19/2024 1:18 PM EDT Plan of Treatment Upcoming Encounters Date Type Department Care Team (Late st Contact Info) Description 04/24/2025 1:15 PM EST Office Visit [facility] Cardiology [address] [place] [address] [place] [address] Laci Dominique MD [address] [facility] [address] [place] [address] 6 month follow up 09/25/2025 1:30 PM EDT Office Visit [facility] Urology [address] [facility] 2nd [place] [address] Anders Santiago, PAJonhC [address] [facility] [address] [address] 1 yr KUB Health Maintenance Due Date Last Done Comments HIV screen 09/30/1974 Hepatitis C screen 09/30/1977 FIT/FOBT: Average risk 09/30/2004 Fecal-DNA (Cologuard): Average risk 09/30/2004 Sigmoidoscopy/CT colonography 09/30/2004 Shingles vaccine (1 of 2) 09/30/2009 Lipids 08/23/2015 08/22/2014 COVID-19 Vaccine (3 - season) 2024 09/04/2020, 08/07/2020 Meningococcal B vaccine (2 of 5 - Increased Risk Bexsero 3-dose series) 05/10/2024 04/12/2024 Meningococcal (ACWY) vaccine (2 - Risk 2-dose series) 06/07/2024 04/12/2024 Pneumococcal 50+ years Vaccine (2 of 2 - PPSV23) 06/07/2024 04/12/2024 Annual Wellness Visit (Medicare) 10/17/2024 A1C test (Diabetic or Prediabetic) 04/11/2025 04/11/2024 Depression Screen 05/07/2025 05/07/2024, 05/07/2024 DTaP/Tdap/Td vaccine (3 - Td or Tdap) 08/22/2031 08/21/2021, 03/24/2017 Colonoscopy 06/10/2034 06/10/2024, 05/23, 02/21/2024, Additional history exists Colorectal Cancer Screen 06/10/2034 Respiratory Syncytial Virus (RSV) or age 60 yrs+ (1 - 1-dose 75+ series) 09/30/2034 Prostate Specific Antigen (PSA) Screening or Monitoring Discontinued 08/22/2014 Diabetes screen Discontinued 04/11/2024 Flu vaccine Completed 04/12/2024, 04/11/2019 Hib vaccine Completed 04/12/2024 Pneumococcal 0-49 years Vaccine Discontinued 04/12/2024 GFR test (Diabetes, CKD 3-4, OR last GFR 15-59) Discontinued 07/02/2024, 05/02/2024, 04/25/2024, Additional history exists Hepatitis A vaccine Aged Out No longe r eligible based on patient's age to complete this topic Hepatitis B vaccine Aged Out No longe r eligible based on patient's age to complete this topic Polio vaccine Aged Out No longer elig ible based on patient's age to complete this topic Medical Devices Implanted Type Area Casing In Line Feeder Device Identifier Shelf Expiration Date Model / Serial / Lot Graft Evar L14cm Aort [id number] Ipsilateral Leg W/ - [id number] Implanted:Qty: 1 on 06/03/2021 by Amilcar Yan MD at [facility] [employer] Right: Groin [employer]WD 11/01/2023 [id number] / [id number] / Description:Main body abdomi nal aorta Graft Endopros L12cm Dst [id number] Contralateral Leg W/ C3 - [id number] Implanted:Qty: 1 on 06/03/2021 by Amilcar Yan MD at [facility] [employer] Groin [employer] 02/28/2024 [id number] / [id number] / Description:Implanted in: LE FT COMMON ILIAC ARTERY Stent Protege Everflex [id number] Implanted:Qty: 1 on 06/03/2021 by Amilcar Yan MD at [facility] Stent:Biliar y/Pancreatic /Iliac Groin [employer] [facility] 11/20/2021 [id number] / / [id number] Description:IMPLANTED IN: LE FT FEMORAL ARTERY Stent Uret 6fr L26cm Hydr+ Pgtl Tapr Tip Grad Bldr Mrk Lo Implanted:Qty: 1 on 06/05/2020 by Justin Mendez MD at [facility] Left: Ureter [employer] 10/28/2022 [id number] / / [id number] Stent Uret 6fr L26cm Hydr+ Pgtl Tapr Tip Grad Bldr Mrk Lo Implanted:Qty: 1 on 06/18/2020 by Justin Mendez MD at [facility] Left: Ureter [employer] 10/28/2022 [id number] / / [id number] Patch Biologic Vasc 1cm Wx14cm L .55mm Thicknessxenosure Implanted:Qty: 1 on 06/03/2021 by Amilcar Yan MD at [facility] [employer] 08/16/2026 [id number] / / [id number] Procedures Procedure Name Priority Date/Time Associated Diagnosis Comments VAS DUP CAROTID BILATERAL Routine 10/28/2024 2:47 PM EDT Bilateral carotid bruits XR ABDOMEN (KUB) (SINGLE AP VIEW) Routine 09/17/2024 4:44 PM EDT Kidney stones BASIC METABOLIC PANEL Routine 07/02/2024 5:06 AM EST COLONOSCOPY PROCEDURE Routine 06/10/2024 7:19 AM EST HEMOGLOBIN A1C Routine 04/11/2024 4:24 AM EST PSA SCREENING Routine 08/22/2014 8:41 AM EDT LIPID PANEL Routine 08/22/2014 8:41 AM EDT from Last 3 Months or Most Recently Relevant to Health Maintenance Results * Vascular duplex carotid bilateral (10/28/2024 2:47 PM EDT) Left CCA dist PSV 103.0 cm/s [facility] CV RPACS VR Left CCA mid PSV 97.10 cm/s [facility] CV RPACS VR Left CCA prox PSV 123.0 cm/s [facility] CV RPACS VR Left ICA dist PSV 88.4 cm/s [facility] CV RPACS VR Left ICA dist EDV 27.4 cm/s [facility] CV RPACS VR Left ICA mid PSV 95.9 cm/s [facility] CV RPACS VR Left ICA prox PSV 108.0 cm/s [facility] CV RPACS VR Left ECA PSV 123.0 cm/s [facility] CV RPACS VR Right cca dist PSV 87.0 cm/s [facility] CV RPACS VR Right CCA mid PSV 98.20 cm/s [facility] CV RPACS VR Right CCA prox PSV 109.0 cm/s [facility] CV RPACS VR Right ICA dist PSV 79.3 cm/s [facility] CV RPACS VR Right ICA mid PSV 136.0 cm/s [facility] CV RPACS VR Right ICA prox PSV 202.0 cm/s [facility] CV RPACS VR Right ICA prox EDV 31.0 cm/s [facility] CV RPACS VR Right ECA PSV 169.0 cm/s [facility] C V RPACS VR Right vertebral PSV 59.2 cm/s BS CV RPACS VR Right ICA/CCA PSV 2.06 BS CV RPACS VR Left ICA/CCA PSV 1.11 BS CV RPACS VR Anatomical Region Laterality Modality Vascular, Head Ultrasound Narrative 10/28/2024 4:09 PM EDT Mild (<50%) stenosis in the right internal carotid artery. Mild plaque in the right internal carotid artery. Mild (<50%) stenosis in the left internal carotid artery. Mild plaque in the left internal carotid artery. Normal antegrade flow involving the right vertebral artery. Occluded flow involving the left vertebral artery. Right Carotid Common Carotid Artery: Patent. Intimal thickening present. Internal Carotid Artery: Mild (<50%) stenosis. Intimal thickening present. Mild plaque. External Carotid Artery: Patent. Vertebral Artery: Flow is antegrade. Left Carotid Common Carotid Artery: Patent. Intimal thickening present. Internal Carotid Artery: Mild (<50%) stenosis. Intimal thickening present. Mild plaque. External Carotid Artery: Patent. Vertebral Artery: Occluded. Signal Integrity Engineer Details A williamson scale, color Doppler imaging and spectral Doppler analysis ultrasound was performed. During the study longitudinal and transverse views were obtained. Pulsed wave doppler was performed. Overall the study quality was good. us Laci Matta MD CV VASCULAR ORDERABLES Final Re sult * XR ABDOMEN (KUB) (SINGLE AP VIEW) (09/17/2024 4:44 PM EDT) Anatomical Region Laterality Modality Abdomen Computed Radiogr aphy 09/17/2024 4:44 PM EDT Impressions 09/21/2024 8:12 AM EDT 1. 5 mm right renal calculus. 2. Nonobstructive bowel gas pattern. 3. Large amount of stool. Narrative 09/21/2024 8:12 AM EDT EXAM: XR ABDOMEN (KUB) (SINGLE AP VIEW) HISTORY: Kidney stones, , , COMPARISON: 09/12/2024. FINDINGS: Supine view of the abdomen demonstrates a nonspecific and nonobstructive bowel gas pattern. There are no significant air-fluid levels demonstrated. Visceral and psoas margins are well maintained. The properitoneal fat stripes are well defined. Aortoiliac stent graft placement. Large amount of stool. 5 mm right renal calculus. No definite free air. S-shaped thoracolumbar scoliosis. Procedure Note MarlyDulce MariaLuis Aliciarashel, DO - 09/21/2024 EXAM: XR ABDOMEN (KUB) (SINGLE AP VIEW) HISTORY: Kidney stones, , , COMPARISON: 09/12/2024. FINDINGS: Supine view of the abdomen demonstrates a nonspecific and nonobstructivebowel gas pattern. There are no significant air-fluid levels demonstrated.Visceral and psoas margins are well maintained. The properitoneal fat stripes arewell defined. Aortoiliac stent graft placement. Large amount of stool. 5 mmright renal calculus. No definite free air. S-shaped thoracolumbar scoliosis. IMPRESSION: 1. 5 mm right renal calculus. 2. Nonobstructive bowel gas pattern. 3. Large amount of stool. us Anders Santiago PA-C IMG DIAGNOSTIC IMAGING ORD ERABLES Final Result * (ABNORMAL) Basic Metabolic Panel (07/02/2024 5:06 AM EST) Sodium 143 135 - 144 mEq/L 07/02/2024 6:41 AM [facility] Potassium 4.3 3.4 - 4.9 mEq/L 07/02/2024 6:41 AM [facility] Chloride 108(H) 95 - 107 mEq/L 07/02/2024 6:41 AM [facility] CO2 25 20 - 31 mEq/L 07/02/2024 6:41 AM [facility] Anion Gap 10 9 - 15 mEq/L 07/02/2024 6:41 AM [facility] Glucose 74 70 - 99 mg/dL 07/02/2024 6:41 AM [facility] BUN 15 8 - 23 mg/dL 07/02/2024 6:41 AM [facility] Creatinine 0.97 0.70 - 1.20 mg/dL 07/02/2024 6:41 AM [facility] Est, Glom Filt Rate 86.8 >60 07/02/2024 6:41 AM EST [facility] Comment: Pediatric calculator link https://www.kidney.org/professionals/kdoqi/gfr_calculatorped Effective Feb 21, 2022 [...] following therapy that affects renal tubular secretion. Calcium 8.4(L) 8.5 - 9.9 mg/dL 07/02/2024 6:41 AM [facility] Blood BLOOD SPECIMEN / Unknown 07/02/2024 5:06 AM EST 07/02/2024 6:22 AM EST Aneesh Izaguirre MD CHEMISTRY ORDERABLES Lara l Result [facility] [address] [facility] [address] [phone] * Colonoscopy (06/10/2024 7:19 AM EST) 06/10/2024 7:19 AM EST Narrative [facility] - 06/10/2024 7:19 AM [facility] Patient: DENVER CAMPBELL : 1960 Account: [id number] Sex at : Male Age: 63 Years Procedure: Colonoscopy Date: 06/10/2024 Attending Physician: Aneesh Izaguirre Indications: - Screening for colorectal malignant neoplasm [...] orifice, and rectum were photographed. Findings: - There was evidence of a prior end-to-end colo-rectal anastomosis in the rectum. This was patent and was characterized by healthy appearing mucosa. The anastomosis was traversed. - An 8 mm polyp was found in the descending colon. The polyp was sessile. The polyp was removed with a hot snare. Resection and retrieval were complete. Impression: - Patent end-to-end colo-rectal anastomosis, characterized by healthy appearing mucosa. - One 8 mm polyp in the descending colon, removed with a hot snare. Resected and retrieved. Recommendation: - Await pathology results. Procedure Code(s): - 99219, Colonoscopy, flexible; with removal of tumor(s), polyp(s), or other lesion(s) by snare technique Diagnosis Code(s): - Z12.11, Encounter for screening for malignant neoplasm of colon - Z98.0, Intestinal bypass and anastomosis status - D12.4, Benign neoplasm of descending colon CPT(R) - 3 copyright [employer]. All Rights Reserved. The CPT codes, CCI edits and ICD codes generated are intended as suggestions and were generated based on input data. These codes are preliminary and upon security systems manager review may be revised to meet current compliance and payer requirements. The provider is responsible for the final determination of appropriate codes, and modifiers. Scope Withdrawal Time: 00:06:31 Aneesh Izaguirre MD This document has been electronically signed. Note Initiated:06/10/2024 Note Completed:06/10/2024 7:48 AM Procedure Note Aneesh Izaguirre MD - 06/10/2024 [facility] Patient: DENVER CAMPBELL : 1960 Account: [id number] Sex at : Male Age: 63 Years Procedure: Colonoscopy Date: 06/10/2024 Attending Physician: Aneesh Izaguirre Indications: - Screening for colorectal malignant neoplasm [...] orifice, and rectum were photographed. Findings: - There was evidence of a prior end-to-end colo-rectalanastomosis in the rectum. This was patent and was characterized byhealthy appearing mucosa. The anastomosis was traversed. - An 8 mm polyp was found in the descending colon. The polypwas sessile. The polyp was removed with a hot snare. Resectionand retrieval were complete. Impression: - Patent end-to-end colo-rectal anastomosis, characterized by healthy appearing mucosa. - One 8 mm polyp in the descending colon, removed with a hotsnare. Resected and retrieved. Recommendation: - Await pathology results. Procedure Code(s): - 63855, Colonoscopy, flexible; with removal of tumor(s),polyp(s), or other lesion(s) by snare technique Diagnosis Code(s): - Z12.11, Encounter for screening for malignant neoplasm of colon - Z98.0, Intestinal bypass and anastomosis status - D12.4, Benign neoplasm of descending colon CPT(R) - 2023 copyright [employer]. All RightsReserved. The CPT codes, CCI edits and ICD codes generated are intended as suggestions and were generated based on input data. These codesare preliminary and upon security systems manager review may be revised to meet current compliance and payer requirements. The provider is responsiblefor the final determination of appropriate codes, and modifiers. Scope Withdrawal Time: 00:06:31 Aneesh Izaguirre MD This document has been electronically signed. Note Initiated:06/10/2024 Note Completed:06/10/2024 7:48 AM us Aneesh Izaguirre MD ENDOSCOPY ORDERABLES Lara l Result [facility] * Hemoglobin A1c (04/11/2024 4:24 AM EST) Hemoglobin A1C 5.9 4.0 - 6.0 % 04/11/2024 6:48 PM EST nVoq Estimated Avg Glucose 123 mg/dL 04/11/2024 6:48 PM EST nVoq Comment: The ADA and AACC recommend providing the estimated average glucose result to permit better patient understanding of their HBA1c result. Performed at [facility], [address] [place] [id number] . Blood BLOOD SPECIMEN / Unknown 04/11/2024 4:24 AM EST 04/11/2024 4:31 AM EST us Gladys Diane LIPSTICK MOLDER - SILO FILLER CHEMISTRY ORDERABLES Final Result [facility] [address] [place] [address], [facility] [phone] [address], [facility] [phone] * Psa screening (08/22/2014 8:41 AM EDT) Pathologist [facility] PSA 2.07 0.00 - 3.89 ng/mL 08/22/2014 5:22 PM EDT [facility] Comment: When the Total PSA is between 3.00 and 10.00 ng/mL, consider requesting a Free PSA to aid in diagnosis. 08/22/2014 8:41 AM EDT 08/22/2014 4:47 PM EDT us Joe Johns MD CHEMISTRY ORDERABLES Final Resu lt [facility] * (ABNORMAL) Lipid Panel (08/22/2014 8:41 AM EDT) Cholesterol, Total 191 0 - 199 mg/dL 08/22/2014 5:24 PM EDT [facility] Comment:ATP III Cholesterol classification is Desirable. Triglycerides 84 0 - 200 mg/dL 08/22/2014 5:24 PM EDT [facility] Comment:ATP III Triglyceride s Classification is Normal. HDL 41 40 - 59 mg/dL 08/22/2014 5:24 PM EDT [facility] Comment: ATP III HDL Cholesterol Classification is Desirable. Expected Values: Males: >55 = No Risk 35-55 = Moderate Risk <35 = High Risk Females: >65 = No Risk 45-65 = Moderate Risk <45 = High Risk NCEP Guidelines: Third Report September 2000 >59 = negative risk factor for CHD <40 = major risk factor for CHD LDL Calculated 133(H) 0 - 129 mg/dL 08/22/2014 5:24 PM EDT [facility] Comment:ATT III Classificati on is Borderline High. 08/22/2014 8:41 AM EDT 08/22/2014 4:47 PM EDT us Joe Johns MD CHEMISTRY ORDERABLES Final Resu lt [facility] from Last 3 Months or Most Recently Relevant to Health Maintenance Insurance MEDICARE Member Subscriber Plan / Payer ( fective 2024-Present) Name:Neal Campbellic Relation to Subscriber:Self Name:Neal Campbellic Payer ID:Not on file Group ID:Not on file Type:Not on file Address: [address] Advance Directives * Full Code (Latest Code Status on File) Date Activated Date Inactivated Comments 07/01/2024 1:58 PM 07/03/2024 3:29 PM * Full Code Date Activated Date Inactivated Comments 07/01/2024 1:58 PM 07/01/2024 1:58 PM * Full Code Date Activated Date Inactivated Comments 06/10/2024 6:17 AM 06/10/2024 11:13 AM * Full Code Date Activated Date Inactivated Comments 04/20/2024 2:22 PM 04/25/2024 5:44 PM * Full Code Date Activated Date Inactivated Comments 04/10/2024 8:12 AM 04/20/2024 2:05 PM Healthcare Agents on File Name Relationship Healthcare Agent Relationshi p Communication Brooke Campbell Spouse Primary Decision Maker Care Teams Board Setter Relationship Specialty Start Date End Date Sherie Ramon APRN - SILO FILLER PCP - General 07/26/22
--- OUTSIDE RECORDS SUMMARY | 2024-11-18 08:42 | XMS_ITS | Encounter Summary ---
Author Organization [facility] 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) Procedures Vascular duplex [place] [address] [place] [address] Phone: tel: fax: Referral ID Status Reason Start Date Expiration Date Visits Re quested Visits Authorized [id number] Closed 01/10/2023 01/05/2024 1 1 * Other (Routine) - Closed Specialty Diagnoses / Procedures Referred By Contac t Referred To Contact Diagnoses Aneurysm of infrarenal abdominal aorta, unspecified whether ruptured Procedures Vascular [place] [address] [place] [address] Phone: tel: fax: Referral ID Status Reason Start Date Expiration Date Visits Re quested Visits Authorized [id number] Closed 01/10/2023 01/05/2024 1 1 Encounter Details Date Type Department Care Team (Latest Contact Info) Description 01/05/2023 Transcribe Orders Luis Patel Pre Access [address] [place] [address] [place] [address] [place] [address] Aneurysm of infrarenal abdominal aorta, unspecified whether ruptured (Primary Dx); Embolism and thrombosis of arteries [...] Description 04/24/2025 1:15 PM EST Office Visit [facility] Cardiology [address] [place] [address] Laci Dominique MD [address] [place] [address] 6 month follow up 09/25/2025 1:30 PM EDT Office Visit [facility] Urology [address] Specialty Clinic [address]nd [place] [address] Anders Santiago, PA-C [address] [place] [address] [address] [place] [address] 1 yr KUB documented as of this encounter Results * Vascular duplex abdominal aorta (01/10/2023 7:38 AM EDT) Anatomical Region Laterality Modality Ultrasound Narrative 02/08/2023 10:33 AM EDT Status post EVAR. No evidence of endoleak. Patent bilateral iliac limbs. us Amilcar Yan MD CV VASCULAR ORDERABLES Final Result * Vascular duplex lower extremity arteries right (01/10/2023 7:38 AM EDT) Anatomical Region Laterality Modality Vascular, Thigh, Leg Ultrasound Narrative 02/08/2023 10:35 AM EDT Patent right common femoral artery endarterectomy. No evidence of hemodynamically significant stenosis in the right lower extremity. 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
[2024-11-18 09:11] VITALS: BP 156/83; PULSE 67; TEMP 37.2; O2SAT 98
[2024-11-18 09:48] VITALS: PULSE 63; O2SAT 93
[2024-11-18 09:49] VITALS: BP 158/74; PULSE 66; O2SAT 96
[2024-11-18] MEDS: TRIAMCINOLONE ACETONIDE 40 MG/ML VIAL 80 MG INJ (09:49)
[2024-11-18] MEDS: 0.9 % SODIUM CHLORIDE 10 ML SYRINGE - SALINE FLUSH INJ (09:50)
[2024-11-18] MEDS: BUPIVACAINE HCL 0.25% PF 25 MG/10 ML VIAL INJ (09:50)
[2024-11-18] MEDS: IOHEXOL 240 MG/ML - 10 ML VIAL INJ (09:50)
[2024-11-18 09:51] VITALS: BP 153/71
[2024-11-18] MEDS: LIDOCAINE HCL 2% 400 MG/20 ML MDV INJ (09:51)
--- NOTE | 2024-11-18 09:55 | P.ON_ITS ---
Date of procedure: 11/18/24 Pre-op diagnosis: Pain due to lumbar stenosis with neurogenic claudication Post-op diagnosis: same as pre-op Procedure: Procedure: Left L4-5, L5-S1 transforaminal epidural steroid injection Medications: Bupivacaine 0.25% 2cc, lidocaine 2% 1cc, kenalog 80mg The patient was seen and examined in the preoperative holding area.? Informed consent was obtained and placed on the chart.? Patient was brought to the medical procedure unit and placed in the prone position where a timeout was completed verifying the correct patient, procedure site, position, and planned special equipment using sterile aseptic technique.? Under direct fluoroscopic visualization a 25-gauge Quincke tipped spinal needle was advanced to the designated neural foramen where contrast dye was injected to show adequate spread.? The needle was inserted at level left L4-5. There was no evidence of vascular or adverse uptake.? Epidural spread was appreciated.? The above- mentioned injectate was then placed in a 1.5 mL aliquot preceded by negative aspiration.? The needle was removed. The needle was inserted and the procedure repeated at level left L5-S1.? The surgery site was covered.? Patient was taken to the postprocedural recovery area and monitored for an appropriate length of time before found suitable for discharge in the accompaniment of a responsible adult. Anesthesia: Local Surgeon: Erum Ye Pathology: none sent Condition: stable Disposition: no change
== END 2024-11-18 09:57 | disposition home or self-care (01) ==
LOC: SURGOUT 08:40
PROVIDERS: Visit Provider Anesthesiology
DX: M48.062 Spinal stenosis, lumbar region with neurogenic claudication (principal); M54.50 Low back pain, unspecified
CPT/HCPCS: 64483; 64484; J0665; J3301; Q9966

== ENCOUNTER 2024-11-28 09:05 | Outpatient (OUT) | payer MEDICARE, SELFPAY ==
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
== END 2024-11-28 09:06 | disposition home or self-care (01) ==
PROVIDERS: Visit Provider Nurse Practitioner
DX: M54.16 Radiculopathy, lumbar region (principal); M48.062 Spinal stenosis, lumbar region with neurogenic claudication; M47.816 Spondylosis without myelopathy or radiculopathy, lumbar region; M79.18 Myalgia, other site
CPT/HCPCS: G0463

== ENCOUNTER 2025-02-20 09:32 | Outpatient (OUT) | payer MEDICARE, SELFPAY ==
--- OUTSIDE RECORDS SUMMARY | 2025-02-05 13:15 | XMS_ITS ---
Author Name Auto Generated Organization OHIP Support Name Relationship Address Phone NOT GIVEN Next of Kin Unknown Unavailable NOT GIVEN Next of Kin Unknown Unavailable NOT GIVEN Next of Kin Unknown Unavailable NOT GIVEN Next of Kin Unknown Unavailable TYRELL VELASQUEZ Next of Kin Unknown [phone] TYRELL VELASQUEZ Next of Kin Unknown [phone] YTRELL VELASQUEZ Next of Kin Unknown [phone] TYRELL VELASQUEZ Next of Kin Unknown [phone] TYRELL VELASQUEZ Next of Kin Unknown [phone] TYRELL VELASQUEZ Next of Kin Unknown [phone] NOT GIVEN Next of Kin Unknown Unavailable TYRELL VELASQUEZ Next of Kin Unknown [phone] TYRELL VELASQUEZ Next of Kin Unknown [phone] TYRELL VELASQUEZ Next of Kin Unknown [phone] TYRELL PERDUE Next of Kin Unknown + NOT GIVEN Next of Kin Unknown Unavailable NOT GIVEN Next of Kin Unknown Unavailable NOT GIVEN Next of Kin Unknown Unavailable NOT GIVEN Next of Kin Unknown Unavailable NOT GIVEN Next of Kin Unknown Unavailable TYRELL PERDUE Next of Kin [address] [place] [phone] + Care Team Providers Care Labor Custodian Name Role Phone HENRY PHILLIPS Attending Unavailable BURT WISE Referring Unavailable CURT, BETH Primary Care Unavailable KEITH MCLEAN Referring Unavailable CURT, BETH Referring Unavailable CURT, BETH Primary Care Unavailable SCULLIN, DEVON Admitting Unavailable SCULLIN, DEVON Attending Unavailable CURT, BETH Primary Care Unavailable ADDIS, DEVON Consulting Unavailable LANCE NORWOOD Consulting Unavailable VERONICA RIOS Consulting Unavailable HENRY CLEMENTS Consulting Unavailable SHANEL AGUSTIN Consulting Unavailable VALE SHIN Consulting Unavailable O'LEONEL, BELTRAN P Admitting Unavailable O'LEONEL, BELTRAN P Attending Unavailable O'LEONEL, BELTRAN P Referring Unavailable CURT, BETH Primary Care Unavailable CHRIS STERN Consulting Unavailable JM I, ANDRADE Consulting Unavailable EMMA, MANAF Consulting Unavailable JESSICA PERDUE Consulting Unavailable HENRY CLEMENTS Consulting Unavailable CAROLIN GOLDBERG Consulting Unavailable DEVON MANCINI Consulting Unavailable LAUREN IZQUIERDO Consulting Unavailable O'LEONEL, BELTRAN P Admitting Unavailable O'LEONEL, BELTRAN P Attending Unavailable CURT, BETH Primary Care Unavailable O'LEONEL, BELTRAN P Admitting Unavailable O'LEONEL, BELTRAN P Attending Unavailable CURT, BETH Primary Care Unavailable CHO I, ANDRADE Attending Unavailable CHO I, ANDRADE Referring Unavailable CURT, BETH Primary Care Unavailable O'LEONEL, BELTRAN P Referring Unavailable CURT, BETH Primary Care Unavailable CURT, BETH Primary Care Unavailable VINAY MCLEANHAM Referring Unavailable CURT, BETH Primary Care Unavailable VINAY MCLEANHAM Referring Unavailable ABBUD, VERONICA A Referring Unavailable CURT, BETH Primary Care Unavailable ABBUD, VERONICA A Referring Unavailable CURT, BETH Primary Care Unavailable ABBUD, VERONICA A Referring Unavailable CURT, BETH Primary Care Unavailable CURT, BETH Primary Care Unavailable MARCO URIARTE Referring Unavailable ABBUD, VERONICA A Referring Unavailable CURT, BETH Primary Care Unavailable ABBUD, VERONICA A Referring Unavailable CURT, BETH Primary Care Unavailable ABBUD, VERONICA A Referring Unavailable CURT, BETH Primary Care Unavailable ABBUD, VERONICA A Referring Unavailable CURT, BETH Primary Care Unavailable ABBUD, VERONICA A Referring Unavailable CURT, BETH Primary Care Unavailable ABBUD, VERONICA A Referring Unavailable CURT, BETH Primary Care Unavailable ABBUD, VERONICA A Referring Unavailable CURT, BETH Primary Care Unavailable DORKOSKIE, MARCO D Referring Unavailable CURT, BETH Primary Care Unavailable ABBUD, VERONICA A Referring Unavailable CURT, BETH Primary Care Unavailable Ephraim BURNETTE, Erum Jones Attending Unavailable pEhraim BURNETTE, Erum Jones Attending Unavailable Ephraim BURNETTE, Erum Jones Attending Unavailable Ephraim BURNETTE, Erum Jones Attending Unavailable MICHELLE, DAYAN Referring Unavailable MICHELLE, DAYAN Referring Unavailable MICHELLE, DAYAN Referring Unavailable MICHELLE, DAYAN Referring Unavailable MICHELLE, DAYAN Referring Unavailable MICHELLE, DAYAN Attending Unavailable MICHELLE, DAYAN Attending Unavailable MICHELLE, DAYAN Referring Unavailable MICHELLE, DAYAN Referring Unavailable Curt, Beth L. Admitting Unavailable Mirian Ugarte Attending Unavailable AUGSUTA, Niki T Primary Care Unavailable Curt, Beth L. Attending Unavailable Curt, Beth L. Attending Unavailable Curt, Beth L. Attending Unavailable Curt, Beth L. Attending Unavailable Curt, Beth L. Attending Unavailable MICHELLE, DAYAN T Attending Unavailable MICHELLE, DAYAN T Referring Unavailable MICHELLE, DAYAN T Admitting Unavailable MICHELLE, DAYAN T Attending Unavailable MICHELLE, DAYAN T Referring Unavailable MICHELLE, DAYAN T Admitting Unavailable Curt, Beth L. Attending Unavailable Curt, Beth L. Admitting Unavailable Curt, Beth L. Admitting Unavailable Curt, Beth L. Attending Unavailable Curt, Beth L. Admitting Unavailable Curt, Beth L. Attending Unavailable Curt, Beth L. Admitting Unavailable Curt, Beth L. Admitting Unavailable PROBLEMS DATE TYPE CONDITION / CODE ATTENDING STATUS [facility] 02/05/2025 Admitting diagnosis Chronic viral hepatitis C (HCC) / B18.2(ICD-10) [facility] 12/31/2024 Principle diagnosis Other specified abnormal immunological findings in serum / R76.8(ICD-10) [facility] 11/12/2024 Admitting Diagnosis Follow-up / [id number]() MICHELLE, [facility] 10/28/2024 Principle diagnosis Other specified symptoms and signs involving the circulatory and respiratory systems / R09.89(ICD-10) ANDRADE LEAL [facility] 10/21/2024 Admitting Diagnosis Radiculopathy, site unspecified / M54.10(ICD-10) MICHELLE, [facility] 09/13/2024 Unknown Calculus of kidn ey / N20.0(ICD-10) [facility] 09/17/2024 Admitting diagnosis Calculus of kidney / N20.0(ICD-10) [facility] 07/01/2024 Admitting diagnosis Enterostomy malfunction / K94.13(ICD-10) BELTRAN IZAGUIRRE [facility] 06/10/2024 Admitting diagnosis Encounter for screening for malignant neoplasm of colon / Z12.11(ICD-10) BELTRAN IZAGUIRRE [facility] 05/08/2024 Admitting diagnosis Diverticulitis of large intestine with perforation and abscess without bleeding / K57.20(ICD-10) [facility] 04/26/2024 Unknown Candidiasis, unspecified / B37.9(ICD-10) [facility] 04/25/2024 Unknown Diverticulitis o f large intestine with perforation and abscess without bleeding / K57.20(ICD-10) [facility] 04/20/2024 Admitting diagnosis Other reduced mobility / Z74.09(ICD-10) [facility] 04/20/2024 Admitting diagnosis Other specified health status / Z78.9(ICD-10) [facility] 04/10/2024 Admitting diagnosis Diverticulitis of large intestine without perforation or abscess without bleeding / K57.32(ICD-10) BELTRAN IZAGUIRRE [facility] 04/10/2024 Admitting diagnosis Diverticulitis of intestine, part unspecified, without perforation or abscess without bleeding / K57.92(ICD-10) BELTRAN IZAGUIRRE [facility] PROCEDURES No Procedure Records Found RESULTS AMBULATORY VISIT SUMMARY Observed: 01/13 8:12 AM Status: F Source: [facility] Ambulatory Visit Summary [place] PERDUE :1960 Visit Date:01/13/2025 Ambulatory Visit Instructions Your Diagnosis Restless leg syndrome Hepatitis C antibody detected Cigarette nicotine dependence Overweight BMI 26.0-26.9,adult Your Care Team Attending Physician - Curt MSN, CONCRETE VIBRATOR OPERATOR-POLYMER MATERIALS CONSULTANT, Beth Dash Primary Care Physician - Curt MSN, CONCRETE VIBRATOR OPERATOR-POLYMER MATERIALS CONSULTANT, Beth Dash This Is Your Medications List Misc Prescription (baclofen 10 mg tablet) Misc Prescription (handicap placard) atorvastatin (atorvastatin 20 mg Tab) baclofen (baclofen 10 mg Tab) buPROPion (buPROPion 150 mg ER Tab) cilostazol (cilostazol 100 mg Tab) clopidogrel (Plavix 75 mg Tab) ferrous sulfate (ferrous sulfate 325 mg Tab) gabapentin (gabapentin 800 mg Tab) metoprolol (Metoprolol succinate 25 mg ER Tablet) pantoprazole (Protonix 40 mg Tab-DR) ropinirole (ropinirole 3 mg Tab) Procedures Performed CT myelogram of lumbar region (11/06/2024), Injection of facet joint using fluoroscopic guidance [...] steroid injection. Discharge Vitals Heart Rate (Peripheral) 50 Respiratory Rate 16 Blood Pressure 108/68 Height 176 cm Height 69 in Weight 82 kg Weight 180.779 lb BMI 26.47 What to do next Scheduled Follow-Up Appointments Monday2025 9:20 AM EST With: Curt AQUINO, Beth HARLEY Where: [facility] [address] [place] [address]- You Need to Schedule the Following Appointments Follow Up with Curt AQUINO, Beth HARLEY When: In 6 months Comments: chronic care Where: [address] [place] [phone] Medications What How Much When Why Instructions Unchanged atorvastatin (atorvastatin 20 mg Tab) 1 Tablets By Mouth Every day Unchanged baclofen (baclofen 10 mg Tab) 1 Tablets By Mouth 3 times a day as needed for Muscle pain Unchanged buPROPion (buPROPion 150 mg ER Tab) 1 Tablets By Mouth 2 times a day Unchanged cilostazol (cilostazol 100 mg Tab) See instructions Take one tablet twice a day Unchanged clopidogrel (Plavix 75 mg Tab) 1 Tablets By Mouth Every day Unchanged ferrous sulfate (ferrous sulfate 325 mg Tab) 1 Tablets By Mouth Every day Iron deficiency anemia, unspecified Duration: 90 Days Unchanged gabapentin (gabapentin 800 mg Tab) See instructions TAKE 1 TABLET BY MOUTH THREE TIMES DAILY Unchanged metoprolol (Metoprolol succinate 25 mg ER Tablet) Unchanged Misc Prescription (baclofen 10 mg tablet) 0 Unchanged Misc Prescription (handicap placard) See instructions Intermittent claudication of left lower extremity due to atherosclerosis used to access handicap parking places, limited 5 years, exp: 2029 Unchanged pantoprazole (Protonix 40 mg Tab-DR) 1 Tablets By Mouth Every day Unchanged ropinirole (ropinirole 3 mg Tab) 1 Tablets By Mouth 3 times a day Allergies No Known Allergies No Known Medication Allergies Problems Ongoing - Any problem that you are currently receiving treatment for. AAA (abdominal aortic aneurysm) Actinic keratoses Anticoagulated Benign essential HTN Cigarette nicotine dependence Combined hyperlipidemia Constipation Difficulty sleeping Diverticulitis of colon Embolism of iliac artery GERD (gastroesophageal reflux disease) Hepatitis C antibody detected History of diverticular abscess of colon History of reversal of ileostomy Hoarseness of voice Hypocalcemia Intermittent claudication of left lower extremity due to atherosclerosis Iron deficiency anemia, unspecified Kidney stone on left side Lumbar radiculopathy Multiple lipomas Overweight PAD (peripheral artery disease) Pain in joint, multiple sites Restless leg syndrome S/P colon resection S/P splenectomy Sacroiliitis Sciatica Historical - Any problem that you are no longer receiving treatment for. Smoker Patient Survey You may receive a survey via text or e-mail asking about your office visit. Please share your experience with us by completing your survey. We appreciate your feedback and thank you for choosing us for your care. Education Materials Restless Legs Syndrome Restless legs syndrome is a condition that causes uncomfortable feelings or sensations in the legs, especially while sitting or lying down. The sensations usually cause an overwhelming urge to move the legs. The arms can also sometimes be affected. The condition can range from mild to severe. The symptoms often interfere with a person's ability to sleep. What are the causes? The cause of this condition is not known. What increases the risk? The following factors may make you more likely to develop this condition: ??? Being older than 50. ??? . ??? Being a woman. In general, the condition is more common in women than in men. ??? A family history of the condition. ??? Having iron deficiency. ??? Overuse of caffeine, nicotine, or alcohol. ??? Certain medical conditions, such as kidney disease, Parkinson's disease, or nerve damage. ??? Certain medicines, such as those for high blood pressure, nausea, colds, allergies, depression, and some heart conditions. What are the signs or symptoms? The main symptom of this condition is uncomfortable sensations in the legs, such as: ??? Pulling. ??? Tingling. ??? Prickling. ??? Throbbing. ??? Crawling. ??? Burning. Usually, the sensations: ??? Affect both sides of the body. ??? Are worse when you sit or lie down. ??? Are worse at night. These may make it difficult to fall asleep. ??? Make you have a strong urge to move your legs. ??? Are temporarily relieved by moving your legs or standing. The arms can also be affected, but this is rare. People who have this condition often have tiredness during the day because of their lack of sleep at night. How is this diagnosed? This condition may be diagnosed based on: ??? Your symptoms. ??? Blood tests. In some cases, you may be monitored in a sleep lab by a specialist (a sleep study). This can detect any disruptions in your sleep. How is this treated? This condition is treated by managing the symptoms. This may include: ??? Lifestyle changes, such as exercising, using relaxation techniques, and avoiding caffeine, alcohol, or tobacco. ??? Iron supplements. ??? Medicines. Parkinson's medications may be tried first. Anti-seizure medications can also be helpful. Follow these instructions at home: General instructions ??? Take [id number] and prescription medicines only as told by your health care provider. ??? Use methods to help relieve the uncomfortable sensations, such as: ? Massaging your legs. ? Walking or stretching. ? Taking a cold or hot bath. ??? Keep all follow-up visits. This is important. Lifestyle ??? Practice good sleep habits. For example, go to bed and get up at the same time every day. Most adults should get 7???9 hours of sleep each night. ??? Exercise regularly. Try to get at least 30 minutes of exercise most days of the week. ??? Practice ways of relaxing, such as yoga or meditation. ??? Avoid caffeine and alcohol. ??? Do not use any products that contain nicotine or tobacco. These products include cigarettes, chewing tobacco, and vaping devices, such as e-cigarettes. If you need help quitting, ask your health care provider. Where to find more information ??? National [place] of Neurological Disorders and Stroke: www.ninds.nih.gov Contact a health care provider if: ??? Your symptoms get worse or they do not improve with treatment. Summary ??? Restless legs syndrome is a condition that causes uncomfortable feelings or sensations in the legs, especially while sitting or lying down. ??? The symptoms often interfere with your ability to sleep. ??? This condition is treated by managing the symptoms. You may need to make lifestyle changes or take medicines. This information is not intended to replace advice given to you by your health care provider. Make sure you discuss any questions you have with your health care provider. Document Revised: 12/19/2021 Document Reviewed: 12/19/2021 [employer] Patient Education ??? 2023 [employer] Patient Portal You may access all of your results and other medical record information on our secure patient portal. If you are not signed up for this yet, please contact [employer] at [phone] to get signed up today. Language Information Language assistance services are available as needed. FAMILY MEDICINE OFFICE/CLINI C NOTE Observed: 01/13/2025 8:12 AM Status: F Source: [facility] Family Medicine Office/Clini c Note Chief Complaint The patient presents with concerns regarding restless legs syndrome and hepatitis C management. HPI Staff Patient is a 64 yo male in office today to discuss RLS. Still has RLS at night, wakes him up throughout the night if he does not take his Ropinirole. Patient stated that his insurance will not cover medication for Hep C. Patient brought denial letter today. History of Present Illness The patient is a 64-year-old male presenting with management of restless legs syndrome. Staff HPI has been reviewed with the patient The patient reports experiencing restless legs syndrome, which disrupts his sleep if he does not take his medication, Requip. The dosage of Requip was increased to 3 mg three times a day, which has resulted in some improvement, although the patient occasionally forgets to take it. The patient is also following up with a dye room helper for hepatitis C management. There are issues with insurance coverage for the prescribed medication, which requires coordination with the dye room helper and insurance company. The patient has a history of cigarette smoking and is currently trying to quit. Review of Systems PHQ Score Initial Depression Screen Score: 0 SCORE - Neurological: Reports restless legs syndrome disrupting sleep. - Gastrointestinal: Following up with dye room helper for hepatitis C management. - Respiratory: Reports ongoing cigarette smoking, attempting to quit. Physical Exam Vitals & Measurements HR: 50(Peripheral) RR: 16 BP: 108/68 SpO2: 99% HT: 176 cm HT: 69 in WT: 82 kg WT: 180.779 lb BMI: 26.47 Constitutional: Well-groomed, well-nourished, no signs of acute [...] 3, pleasant, no mood changes. Assessment/Plan 1. Restless leg syndrome (G25.81: Restless legs syndrome) The patient is advised to continue taking Requip at the dosage of 3 mg three times a day. It is important for the patient to adhere to the medication schedule to manage symptoms effectively. Assisted the patient with his cell phone to put reminders in it so he can remember to take his medication. Remind him for it to be effective he has to adhere to the regimen. Ordered: 1126F Pain severity quantified; no pain present Current tobacco smoker 1034F Functional status assessed 1170F Medication list documented in medical record 1159F Most recent diastolic blood pressure <80 mm Hg 3078F Patient screen for fall risk: no falls in last year or 1 fall with no injury in last year 1101F Review of all meds by a prescribing practitioner or clinical pharmacist documented in EHR 1160F Systolic BP <130 mm Hg (Most Recent) 3074F 2. Hepatitis C antibody detected (R76.8: Other specified abnormal immunological findings in serum) The patient should continue follow-up with the dye room helper for hepatitis C management. Coordination with the insurance company is necessary to resolve medication coverage issues. 3. Cigarette nicotine dependence (F17.210: Nicotine dependence, cigarettes, uncomplicated) Strongly recommend patient to quit tobacco use. Cigarette smoking harms nearly every organ of the body, causes many diseases, and reduces the health of smokers in general. Quitting smoking lowers risk for smoking-related diseases and increases life expectancy. Encouraged patient to visit helpful online resources and/or free telephone support such as 2-627-VCJHRTD. Prescription medication to help smoking cessation available on request. Ordered: 1126F Pain severity quantified; no pain present Current tobacco smoker 1034F Functional status assessed 1170F Medication list documented in medical record 1159F Most recent diastolic blood pressure <80 mm Hg 3078F Patient screen for fall risk: no falls in last year or 1 fall with no injury in last year 1101F Review of all meds by a prescribing practitioner or clinical pharmacist documented in EHR 1160F Systolic BP <130 mm Hg (Most Recent) 3074F 4. Overweight (E66.3: Overweight) Calorie restriction along with routine aerobic exercises discussed in order to avoid hypertension, osteoarthritis, metabolic syndrome and/or worsening of chronic underlying disease states. Encouraged to limit sugary drinks, foods high in sodium, as well as alcohol. Ordered: 1126F Pain severity quantified; no pain present Current tobacco smoker 1034F Functional status assessed 1170F Medication list documented in medical record 1159F Most recent diastolic blood pressure <80 mm Hg 3078F Patient screen for fall risk: no falls in last year or 1 fall with no injury in last year 1101F Review of all meds by a prescribing practitioner or clinical pharmacist documented in EHR 1160F Systolic BP <130 mm Hg (Most Recent) 3074F 5. BMI 26.0-26.9,adult (Z68.26: Body mass index [BMI] 26.0-26.9, adult) see #4 Ordered: 1126F Pain severity quantified; no pain present Current tobacco smoker 1034F Functional status assessed 1170F Medication list documented in medical record 1159F Most recent diastolic blood pressure <80 mm Hg 3078F Patient screen for fall risk: no falls in last year or 1 fall with no injury in last year 1101F Review of all meds by a prescribing practitioner or clinical pharmacist documented in EHR 1160F Systolic BP <130 mm Hg (Most Recent) 3074F This note was created by the assist of a speech-recognition program although the intention is to generate a document that actually reflects the content of the visit, no guarantees can be provided that every mistake has been identified and corrected by editing. Follow-up With When Contact Information Curt MSN, CONCRETE VIBRATOR OPERATOR-POLYMER MATERIALS CONSULTANT, Beth Dash In [address] [place] [phone] Additional Instructions: chronic care Patient Education Restless Legs Syndrome Problem List/Past Medical History Ongoing AAA (abdominal aortic aneurysm) Actinic keratoses Anticoagulated Benign essential HTN Cigarette nicotine dependence Combined hyperlipidemia Constipation Difficulty sleeping Diverticulitis of colon Embolism of iliac artery GERD (gastroesophageal reflux disease) Hepatitis C antibody detected History of diverticular abscess of colon History of reversal of ileostomy Hoarseness of voice Hypocalcemia Intermittent claudication of left lower extremity due to atherosclerosis Iron deficiency anemia, unspecified Kidney stone on left side Lumbar radiculopathy Multiple lipomas Overweight PAD (peripheral artery disease) Pain in joint, multiple sites Restless leg syndrome S/P colon resection S/P splenectomy Sacroiliitis Sciatica Historical Smoker Procedure/Surgical History CT myelogram of lumbar region (11/06/2024), Injection of facet joint using fluoroscopic guidance [...] left flank area, transforaminal epidural steroid injection. Medications atorvastatin 20 mg Tab, 20 mg= 1 tab(s), Oral, Daily, 4 refills baclofen 10 mg Tab, 10 mg= 1 tab(s), Oral, TID, PRN baclofen 10 mg tablet, 0 buPROPion 150 mg ER Tab, 150 mg= 1 tab(s), Oral, BID, 11 refills cilostazol 100 mg Tab, See Instructions, 3 refills ferrous sulfate 325 mg Tab, 325 mg= 1 tab(s), Oral, Daily gabapentin 800 mg Tab, See Instructions handicap placard, See Instructions Metoprolol succinate 25 mg ER Tablet Plavix 75 mg Tab, 75 mg= 1 tab(s), Oral, Daily, 4 refills Protonix 40 mg Tab-DR, 40 mg= 1 tab(s), Oral, Daily, 4 refills ropinirole 3 mg Tab, 3 mg= 1 tab(s), Oral, TID, 4 refills Allergies No Known Allergies No Known Medication Allergies Social History Alcohol - Denies Alcohol Use, 04/27/2022 Past, Beer, 08/06/2020 Employment/School Employed, 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 Never Smokeless Tobacco Use:. Cigarettes, 1 per day. 47 year(s). Started age 11.0 Years. Previous treatment: None. Ready to change: No. Yes, 01/13/2025 10 or more cigarettes (1/2 pack or more)/day in last 30 days Tobacco Use:., 12/02/2024 10 or more cigarettes (1/2 pack or more)/day in last 30 days Tobacco Use:., 06/04/2024 Family History Alcoholism: Father. Arthritis: Mother. Cancer: Mother and Father. Immunizations Vaccine Date Status Comments pneumococcal 13-valent vaccine 04/12/2024 Recorded 2024-12-02: VIS DATE: 09/30/2022 meningococcal group B vaccine 04/12/2024 Recorded 2024-12-02: VIS DATE: 12/25/2020 meningococcal conjugate vaccine 04/12/2024 Recorded 2024-12-02: VIS DATE: 12/25/2020 influenza virus vaccine, inactivated 04/12/2024 Recorded 2024-12-02: VIS DATE: 12/25/2020 haemophilus b conjugate (PRP-T) vaccine 04/12/2024 Recorded 2024-12-02: VIS DATE: 12/25/2020 influenza virus vaccine, inactivated - Not Given Postpone due to refusal influenza virus vaccine, inactivated - Not Given Patient Refuses diphtheria/pertussis, acel/tetanus adult 08/21/2021 Given SARS-CoV-2 (COVID-19) mRNA BNT-162b2 vax 09/04/2020 Given Prophylaxis SARS-CoV-2 (COVID-19) mRNA BNT-162b2 vax 08/07/2020 Given Prophylaxis influenza virus vaccine, inactivated - Not Given Patient Refuses influenza virus vaccine, inactivated 04/11/2019 Given diphtheria/pertussis, acel/tetanus adult 03/24/2017 Given Result Comment: Electronical ly Signed By: Curt AQUINO, CONCRETE VIBRATOR OPERATOR-ROBERT, Beth Dash\.br\Date and Time Signed: 01/13/25 10:57 EDT PATIENT EDUCATION Observed: 01/12/2025 11:39 AM Status: F Source: [facility] Patient Education Neurology Restless Legs Syndrome Restless legs syndrome is a condition that causes uncomfortable feelings or sensations in the legs, especially while sitting or lying down. The sensations usually cause an overwhelming urge to move the legs. The arms can also sometimes be affected. The condition can range from mild to severe. The symptoms often interfere with a person's ability to sleep. What are the causes? The cause of this condition is not known. What increases the risk? The following factors may make you more likely to develop this condition: ??? Being older than 50. ??? . ??? Being a woman. In general, the condition is more common in women than in men. ??? A family history of the condition. ??? Having iron deficiency. ??? Overuse of caffeine, nicotine, or alcohol. ??? Certain medical conditions, such as kidney disease, Parkinson's disease, or nerve damage. ??? Certain medicines, such as those for high blood pressure, nausea, colds, allergies, depression, and some heart conditions. What are the signs or symptoms? The main symptom of this condition is uncomfortable sensations in the legs, such as: ??? Pulling. ??? Tingling. ??? Prickling. ??? Throbbing. ??? Crawling. ??? Burning. Usually, the sensations: ??? Affect both sides of the body. ??? Are worse when you sit or lie down. ??? Are worse at night. These may make it difficult to fall asleep. ??? Make you have a strong urge to move your legs. ??? Are temporarily relieved by moving your legs or standing. The arms can also be affected, but this is rare. People who have this condition often have tiredness during the day because of their lack of sleep at night. How is this diagnosed? This condition may be diagnosed based on: ??? Your symptoms. ??? Blood tests. In some cases, you may be monitored in a sleep lab by a specialist (a sleep study). This can detect any disruptions in your sleep. How is this treated? This condition is treated by managing the symptoms. This may include: ??? Lifestyle changes, such as exercising, using relaxation techniques, and avoiding caffeine, alcohol, or tobacco. ??? Iron supplements. ??? Medicines. Parkinson's medications may be tried first. Anti-seizure medications can also be helpful. Follow these instructions at home: General instructions ??? Take otpb-vxb-qgydppq and prescription medicines only as told by your health care provider. ??? Use methods to help relieve the uncomfortable sensations, such as: ? Massaging your legs. ? Walking or stretching. ? Taking a cold or hot bath. ??? Keep all follow-up visits. This is important. Lifestyle ??? Practice good sleep habits. For example, go to bed and get up at the same time every day. Most adults should get 7?9 hours of sleep each night. ??? Exercise regularly. Try to get at least 30 minutes of exercise most days of the week. ??? Practice ways of relaxing, such as yoga or meditation. ??? Avoid caffeine and alcohol. ??? Do not use any products that contain nicotine or tobacco. These products include cigarettes, chewing tobacco, and vaping devices, such as e-cigarettes. If you need help quitting, ask your health care provider. Where to find more information ??? National [place] of Neurological Disorders and Stroke: www.ninds.nih.gov Contact a health care provider if: ??? Your symptoms get worse or they do not improve with treatment. Summary ??? Restless legs syndrome is a condition that causes uncomfortable feelings or sensations in the legs, especially while sitting or lying down. ??? The symptoms often interfere with your ability to sleep. ??? This condition is treated by managing the symptoms. You may need to make lifestyle changes or take medicines. This information is not intended to replace advice given to you by your health care provider. Make sure you discuss any questions you have with your health care provider. Document Revised: 12/19/2021 Document Reviewed: 12/19/2021 [employer] ([employer]) Patient Education ? 2023 [employer] FIBROSCAN Observed: 12/31/2024 10:00 AM Status: F Source: [facility] Table formatting from the or iginal result was not included. Velocity Controlled Transient Elastography (Fibroscan) Concrete Stone Finishing Supervisor: Niki Holloway Attending: Keith Mclean MD Patient was identified via name and . [place] Perdue presents to endoscopy suite for VCTE. Referring Physician: Dr. Mclean Diagnosis: Hep C Probe Used: M Pre-procedure Checklist: Presence of ascites: No Fasting for at least two hours: Yes Alcohol Use: No History of heart failure: No @[id number](ALT:3,AST:3,GGT:3,ALKPHOS:3,BILITOT:3)@ @RESUFAST(PLT:3)@ Findings: Median kPa: 6.7 IQR/med (%): 7 Controlled Attenuation Paramater (CAP) Median (dB/m): 261 IQR (%): 24 Interpretation: Appropriate reading, Based on LSM of 6.7 Kpa, NO evidence of advanced fibrosis noted Fibrosis stage 0-I ( F0-1) Based on CAP of 261 db/M, Mild steatosis (< 33%) - S1. Clinical correlation indicated Keith Mclean MD [facility] Interpreted by: Keith Mclean MD Signed by: Keith Mclean MD 01/08/25 Final result HEPATITIS A ABS, TOTAL Collected: 12/31 9:18 AM Status: F Source: [facility] TYPE CODE TESTS RESULT OUT OF RANGE REFERENCE UNITS LAB Hepatitis A Abs, Total Positive Abnormal Negative Result Comment: The positive anti-HAV is consistent with recent or remote Hepatitis A infection or antibody response to HAV vaccination. False positive anti-HAV can occur. Performed By: [facility] [address] [place] [id number] Speeder Frame Tender: Chriss Agudelo MD, PhD CLIA Number: [id number] HEP B SURF AB Collected: 12/31/2024 9:18 AM Status: F Source: [facility] TYPE CODE TESTS RESULT OUT OF RANGE REFERENCE UNITS LAB IAHBS Hep B Surf Ab <3.50 <10 mIU/mL Result Comment: REFERENCE RANGE: <10.0 NON-REACTIVE/NOT IMMUNE >=10.0 REACTIVE/IMMUNE Performed at [facility], [address] [place] [id number] . HEPATITIS B SURFACE AG Collected: 12/31/2024 9:18 AM Status: F Source: [facility] TYPE CODE TESTS RESULT OUT OF RANGE REFERENCE UNITS LAB HBSAG Hepatitis B Surface Ag Interp Non-reactive Performed By: #### HBSG #### [facility] [address] [place] [id number] HCV GENOTYPE BY SEQUENCING Collected: 0 12/31/2024 9:18 AM Status: F Source: [facility] TYPE CODE TESTS RESULT OUT OF RANGE REFERENCE UNITS LAB 5559C HCV Genotype By Sequencing 1a or 1b Result Comment: Cannot be fu rther subtyped into Type 1a or Type 1b due to high conservation of the 5' untranslated region of the HCV genome. In addition, Type 6 virus may be misclassified as Type 1 in some cases. The Hepatitis C Virus High-Resolution Genotype by Sequencing test (NDTranslateMedia test code [id number]) provides a higher level of subtype resolution. INTERPRETIVE INFORMATION: Hepatitis C Genotyping Hepatitis C viral RNA is tested using reverse submarine advisory team watch officer polymerase chain reaction (RT-PCR) to amplify a specific portion of the 5' untranslated region (5' UTR) of the viral genome. The amplified nucleic acid is sequenced bidirectionally using dye-terminator chemistry (C[employer]). Sequencing data is compared to a database of characterized sequences. Isolates of hepatitis C virus are grouped into six major genotypes (1-6). These genotypes are subtyped according to sequence characteristics. Due to high conservation of the 5' untranslated region of the HCV genome, this test has limitations in differentiating subtype 1a from 1b. Therefore, these subtypes will be reported as 1a or 1b. In rare instances, type 6 virus may be misclassified as type 1. This test was developed and its performance characteristics determined by [facility]. It has not been cleared or approved by the U.S. Food and Drug Administration. This test was performed in a CLIA-certified laboratory and is intended for clinical purposes. Performed By: [facility] [address] [place] [id number] Speeder Frame Tender: Chriss Agudelo MD, PhD CLIA Number: [id number] HCV QUANT REFLEX TO GENOTYPE Collected: 12/31/2024 9:18 AM Status: F Source: [facility] TYPE CODE TESTS RESULT OUT OF RANGE REFERENCE UNITS LAB B057C HCV Qnt by NAAT IU/mL [id number] IU/mL LAB B057D HCV Qnt by NAAT log IU/mL 6.02 log IU/mL Result Comment: Hepatitis C Virus Genotype by Sequencing added. LAB B096F HCV Qnt by NAAT Interp Detected Abnormal Not Detect Result Comment: INTERPRETIVE INFORMATION: HCV by Quantitative NAAT The quantitative range of this test is 15-100,000,000 IU/mL (1.18-8.0 log IU/mL). A result of Not Detected does not rule out the presence of inhibitors in the patient specimen or hepatitis C virus RNA concentrations below the level of detection of the test. Care should be taken when interpreting any single viral load determination. This test is intended for use as an aid in the diagnosis of HCV infection in the following populations: individuals with antibody evidence of HCV with evidence of liver disease, individuals suspected to be actively infected with HCV antibody evidence, and individuals at risk for HCV infection with antibodies to HCV. Detection of HCV RNA indicates that the virus is replicating and therefore is evidence of active infection. This test is also intended for use as an aid in the management of patients with an HCV infection undergoing antiviral therapy. The assay can be used to measure HCV RNA levels at baseline, during treatment, at the end of treatment, and at the end of follow-up of treatment to determine sustained or nonsustained viral response. The results must be interpreted within the context of all relevant clinical and laboratory findings. This test should not be used for blood donor screening, associated reentry protocols, or for screening human cells, tissues, and cellular tissue-based products (HCT/P). Performed By: [facility] [address] [place], [place] [id number] Speeder Frame Tender: Chriss Agudelo MD, PhD CLIA Number: [id number] HEPATITIS B CORE ABS, TOTAL Collected: 12/31/2024 9:1 8 AM Status: F Source: [facility] TYPE CODE TESTS RESULT OUT OF RANGE REFERENCE UNITS LAB 2009A Hepatitis B Core Abs, Total Negative Negative Result Comment: INTERPRETIVE INFORMATION: Hepatitis B Core Ab (Total) This assay should not be used for blood donor screening, associated re-entry protocols, or for screening Human Cells, Tissues and Cellular and Tissue-Based Products (HCT/P). Performed By: [facility] [address] [place] [id number] Speeder Frame Tender: Chriss Agudelo MD, PhD CLIA Number: [id number] COMPREHENSIVE METABOLIC PANEL Collected: 12/31/2024 9 :18 AM Status: F Source: [facility] TYPE CODE TESTS RESULT OUT OF RANGE REFERENCE UNITS LAB NA Sodium 141 135-144 mEq/L LAB K Potassium 3.9 3.4-4.9 mEq/L LAB CL Chloride 104 95-107 mEq/L LAB CO2 CO2 26 20-31 mEq/L LAB AGAP Anion Gap 11 9-15 mEq/L LAB GLU Glucose 93 70-99 mg/dL LAB BUN BUN 11 8-23 mg/dL LAB CREA Creatinine 1.05 0.70-1.20 mg/dL LAB GFR GFR 78.7 >60 Result Comment: Pediatric ca lculator link [email or web address] Effective Feb 21, 2022 These [...] following therapy that affects renal tubular secretion. LAB CA Calcium 9.2 8.5-9.9 mg/dL LAB TP Total Protein 7.0 6.3-8.0 g/dL LAB ALB Albumin 4.2 3.5-4.6 g/dL LAB BILIT Bilirubin Total 0.4 0.2-0.7 mg/dL LAB ALP Alkaline Phosphatase 101 35-104 U/L LAB ALT ALT 19 0-41 U/L LAB AST AST 19 0-40 U/L LAB GLOB Globulin 2.8 2.3-3.5 g/dL Performed By: #### CMP #### [facility] [address] [place] [address] CBC WITH PLATELET AND DIFFERENTIAL Collected: 12/31/2024 9:18 AM Status: F Source: [facility] TYPE CODE TESTS RESULT OUT OF RANGE REFERENCE UNITS LAB WBCIR WBC 8.8 4.8-10.8 K/uL LAB RBC RBC 4.55 Low 4.70-6.10 M/uL LAB HGB Hemoglobin 12.2 Low 14.0-18.0 g/dL LAB HCT Hematocrit 40.3 Low 42.0-52.0 % LAB MCV MCV 88.6 79.0-92.2 fL LAB MCH MCH 26.8 Low 27.0-31.3 pg LAB MCHC MCHC 30.3 Low 33.0-37.0 % LAB RDW RDW 28.0 High alert 11.5-14.5 % LAB PLT Platelet Count 426 High alert 130-400 K/uL LAB ANISO Anisocytosis 3+ LAB HYPO Hypochromia 1+ LAB POIK Poikilocytosis 3+ LAB ACANT Acanthocytes 1+ LAB OVAL Ovalocytes 1+ LAB TARG Target Cells 2+ LAB BSTIP Basophilic Stippling 2+ LAB PLTR Platelet Slide Review Increased LAB SLREV Slide Review see below Result Comment: Slide review agrees with reported results LAB SEGR Neutrophils 72.3 % LAB LYMPR Lymphocytes 15.5 % LAB MONOR Monocytes 8.9 % LAB EOSR Eosinophils 2.3 % LAB BASOR Basophils 0.8 % LAB ASEGR Absolute Neutrophils 6.4 1.4-6.5 K/uL LAB ALYMR Absolute Lymphocytes 1.4 1.0-4.8 K/uL LAB AMONR Absolute Monocytes 0.8 0.2-0.8 K/uL LAB AEOSR Absolute Eosinophils 0.2 0.0-0.7 K/uL LAB ABASR Absolute Basophils 0.1 0.0-0.2 K/uL Performed By: #### CBCWD ### # [facility] [address] [place] [address] HIV AG/AB Collected: 9:18 AM Status: F Source: [facility] TYPE CODE TESTS RESULT OUT OF RANGE REFERENCE UNITS LAB IHIVA HIV Ag/Ab NONREACTIVE NR Result Comment: No laborator y evidence of HIV infection. If acute HIV infection is suspected, consider testing for HIV-1 RNA. Performed at [facility], [address] [place] [id number] . PATIENT EDUCATION Observed: 12/02/2024 10:54 AM Status: C Source: [facility] Patient Education Cardiovascular Hypertension, Adult High blood [...] risk factors are under your control, including: ??? Smoking. ??? Not getting enough exercise or physical activity. ??? Being overweight. ??? Having too much fat, sugar, calories, or salt (sodium) in your diet. ??? Drinking too much alcohol. Other risk factors include: ??? Having a personal history of heart disease, diabetes, high cholesterol, or kidney disease. ??? Stress. ??? Having a family history of high blood pressure and high cholesterol. ??? Having obstructive sleep apnea. ??? Age. The risk increases with age. What are the signs or symptoms? High blood pressure may not cause symptoms. Very high blood pressure (hypertensive crisis) may cause: ??? Headache. ??? Fast or irregular heartbeats (palpitations). ??? Shortness of breath. ??? Nosebleed. ??? Nausea and vomiting. ??? Vision changes. ??? Severe chest pain, dizziness, and seizures. How [...] risk factors, you may be asked to: ??? Return on a different day to have your blood pressure checked again. ??? Monitor your blood pressure at home for [...] your blood pressure under control and if: ??? Your systolic blood pressure is above 130. ??? Your diastolic blood pressure is above 80. Your personal target blood pressure may vary depending on your medical conditions, your age, and other factors. Follow these instructions at home: Eating and drinking ??? Eat a diet that is high in [...] higher in sodium, added sugar, and fat. ??? Reduce your daily sodium intake. Many people with hypertension should eat less than 1,500 mg of sodium a day. ??? Do not drink alcohol if: ? Your health care provider tells you not to drink. ? You are , may be , or are planning to become . ??? If you drink alcohol: ? Limit how [...] glass of hard liquor (44 mL). Lifestyle ??? Work with your health care provider to maintain a healthy body weight or to lose weight. Ask what an ideal weight is for you. ??? Get at least 30 minutes of exercise that causes your heart to beat faster (aerobic exercise) most days of the week. Activities may include walking, swimming, or biking. ??? Include exercise to strengthen your muscles (resistance exercise), such as Pilates or lifting weights, as part of your weekly exercise routine. Try to do these types of exercises for 30 minutes at least 3 days a week. ??? Do not use any products that contain nicotine or tobacco. These products include cigarettes, chewing tobacco, and vaping devices, such as e-cigarettes. If you need help quitting, ask your health care provider. ??? Monitor your blood pressure at home as told by your health care provider. ??? Keep all follow-up visits. This is important. Medicines ??? Take mnij-eaz-auvsych and prescription medicines only as told by your health care provider. Follow directions carefully. Blood pressure medicines must be taken as prescribed. ??? Do not skip doses of blood pressure medicine. Doing this puts you at risk for problems and can make the medicine less effective. ??? Ask your health care provider about side effects or reactions to medicines that you should watch for. Contact a health care provider if you: ??? Think you are having a reaction to a medicine you are taking. ??? Have headaches that keep coming back (recurring). ??? Feel dizzy. ??? Have swelling in your ankles. ??? Have trouble with your vision. Get help right away if you: ??? Develop a severe headache or confusion. ??? Have unusual weakness or numbness. ??? Feel faint. ??? Have severe pain in your chest or abdomen. ??? Vomit repeatedly. ??? Have trouble breathing. These symptoms may be an emergency. Get help right away. Call 911. ??? Do not wait to see if the symptoms will go away. ??? Do not drive yourself to the hospital. Summary ??? Hypertension is when the force of blood pumping through your arteries is too strong. If this condition is not controlled, it may put you at risk for serious complications. ??? Your personal target blood pressure may vary depending on your medical conditions, your age, and other factors. For most people, a normal blood pressure is less than 120/80. ??? Hypertension is treated with lifestyle changes, medicines, or a combination of both. Lifestyle changes include losing weight, eating a healthy, low-sodium diet, exercising more, and limiting alcohol. This information is not intended to replace advice given to you by your health care provider. Make sure you discuss any questions you have with your health care provider. Document Revised: 03/15/2022 Document Reviewed: 03/15/2022 [employer] Patient Education ? 2023 [employer].ENT Hoarseness Hoarseness, also called dysphonia, is any abnormal change in your voice that can make it difficult to speak. Your voice may sound raspy, breathy, or strained. Hoarseness is caused by a problem with your vocal cords (vocal folds). These are two bands of tissue inside your voice box (larynx). When you speak, your vocal cords move back and forth to create sound. The surfaces of your vocal cords need to be smooth for your voice to sound clear. Swelling or lumps on your vocal cords can cause hoarseness. Vocal cord problems may be the result of injuries or abnormal growths, certain diseases, upper respiratory infection, or allergies. Other causes may include medicine side effects and exposure to irritants. Follow these instructions at home: Pay attention to any changes in your symptoms. Take these actions to stay safe and to help relieve your symptoms: Lifestyle ??? Do not eat foods that give you heartburn, such as spicy or acidic foods like hot peppers and orange juice. These foods can cause a gastroesophageal reflux that may worsen your vocal cord problems. ??? Limit how much alcohol and caffeine you drink as told by your health care provider. ??? Drink enough fluid to keep your urine pale yellow. ??? Do not use any products that contain nicotine or tobacco. These products include cigarettes, chewing tobacco, and vaping devices, such as e-cigarettes. If you need help quitting, ask your health care provider. ??? Avoid secondhand smoke. General instructions ??? Use a humidifier if the air in your home is dry. ??? Avoid coughing or clearing your throat. ??? Do not whisper. Whispering can cause muscle strain. ??? Do not speak in a loud or harsh voice. ??? Rest your voice. If recommended by your health care provider, schedule an appointment with a speech-english language learner teacher. This specialist may give you methods to try that can help you avoid misusing your voice. Contact a health care provider if: ??? Your voice is hoarse longer than 2 weeks. ??? You almost lose or completely lose your voice for more than 3 days. ??? You have pain when you swallow or try to talk. ??? You feel a lump in your neck. Get help right away if: ??? You have trouble swallowing. ??? You feel like you are choking when you swallow. ??? You cough up blood or vomit blood. ??? You have trouble breathing. ??? You choke, cannot swallow, or cannot breathe if you lie flat. ??? You notice swelling or a rash on your body, face, or tongue. These symptoms may represent a serious problem that is an emergency. Do not wait to see if the symptoms will go away. Get medical help right away. Call your local emergency services (911 in the [place] Do not drive yourself to the hospital. Summary ??? Hoarseness, also called dysphonia, is any abnormal change in your voice that can make it difficult to speak. Your voice may sound raspy, breathy, or strained. ??? Hoarseness is caused by a problem with your vocal cords (vocal folds). ??? Do not speak in a loud or harsh voice, whisper, use nicotine or tobacco products, or eat foods that give you heartburn. ??? See your health care provider if your hoarseness does not improve after 2 weeks. This information is not intended to replace advice given to you by your health care provider. Make sure you discuss any questions you have with your health care provider. Document Revised: 10/26/2021 Document Reviewed: 10/26/2021 [employer] Patient Education ? 2023 [employer].Nutrition High Cholesterol High cholesterol is a condition [...] of the body. If you have high cholesterol, deposits (plaques) may build up on the mendoza [...] you more likely to develop this condition: ??? Eating foods that are high in animal fat (saturated fat) or cholesterol. ??? Being overweight. ??? Not getting enough exercise. ??? A family history of high cholesterol (familial hypercholesterolemia). ??? Use of tobacco products. ??? Having diabetes. What are the signs or symptoms? In most cases, high cholesterol does not usually cause any symptoms. In severe cases, very high cholesterol levels can cause: ??? Fatty bumps under the skin (xanthomas). ??? A white or williamson ring around the black center (pupil) of the eye. How is this diagnosed? This condition may be diagnosed based on the results of a blood test. ??? If you are older than 20 years of age, your health care provider may check your cholesterol levels every 4?6 years. ??? You may be checked more often if you have high cholesterol or other risk factors for heart disease. The blood test for cholesterol measures: ??? Bad cholesterol, or LDL cholesterol. This is the main type of cholesterol that causes heart disease. The desired level is less than 100 mg/dL (2.59 mmol/L). ??? Good cholesterol, or HDL cholesterol. HDL helps protect against heart disease by cleaning the arteries and carrying the LDL to the liver for processing. The desired level for HDL is 60 mg/dL (1.55 mmol/L) or higher. ??? Triglycerides. These are fats that your body can store or burn for energy. The desired level is less than 150 mg/dL (1.69 mmol/L). ??? Total cholesterol. This measures the total amount of cholesterol in your blood and includes LDL, HDL, and triglycerides. The desired level is less than 200 mg/dL (5.17 mmol/L). How is this treated? Treatment for high cholesterol starts with lifestyle changes, such as diet and exercise. ??? Diet changes. You may be asked to eat foods that have more fiber and less saturated fats or added sugar. ??? Lifestyle changes. These may include regular exercise, maintaining a healthy weight, and quitting use of tobacco products. ??? Medicines. These are given when diet and lifestyle changes have not worked. You may be prescribed a statin medicine to help lower your cholesterol levels. Follow these instructions at home: Eating and drinking ??? Eat a healthy, balanced diet. This diet includes: ? Daily servings of a variety of fresh, frozen, or canned fruits and vegetables. ? Daily servings of whole grain foods that are rich in fiber. ? Foods that are low in saturated fats and trans fats. These include poultry and fish without skin, lean cuts of meat, and low-fat dairy products. ? A variety of fish, especially oily fish that contain omega-3 fatty acids. Aim to eat fish at least 2 times a week. ??? Avoid foods and drinks that have added sugar. ??? Use healthy cooking methods, such as roasting, grilling, broiling, baking, poaching, steaming, and stir-frying. Do not kaur your food except for stir- frying. ??? If you drink alcohol: ? Limit how much you have to: ? 0?1 drink a day for women who are not . ? 0?2 drinks a day for men. ? Know how much alcohol is in a drink. In the [place] one drink equals one 12 oz bottle of beer (355 mL), one 5 oz glass of wine (148 mL), or one 1? oz glass of hard liquor (44 mL). Lifestyle ??? Get regular exercise. Aim to exercise for a total of 150 minutes a week. Increase your activity level by doing activities such as gardening, walking, and taking the stairs. ??? Do not use any products that contain nicotine or tobacco. These products include cigarettes, chewing tobacco, and vaping devices, such as e-cigarettes. If you need help quitting, ask your health care provider. General instructions ??? Take bvom-bdt-brxinub and prescription medicines only as told by your health care provider. ??? Keep all follow-up visits. This is important. Where to find more information ??? [place] [employer]: www.heart.org ??? National Heart, Lung, and Blood [place]: www.nhlbi.nih.gov Contact a health care provider if: ??? You have trouble achieving or maintaining a healthy diet or weight. ??? You are starting an exercise program. ??? You are unable to stop smoking. Get help right away if: ??? You have chest pain. ??? You have trouble breathing. ??? You have discomfort or pain in your jaw, neck, back, shoulder, or arm. ??? You have any symptoms of a stroke. BE FAST is an easy way to remember the main warning signs of a stroke: ? B - Balance. Signs are dizziness, sudden trouble walking, or loss of balance. ? E - Eyes. Signs are trouble seeing or a sudden change in vision. ? F - Face. Signs are sudden weakness or numbness of the face, or the face or eyelid drooping on one side. ? A - Arms. Signs are weakness or numbness in an arm. This happens suddenly and usually on one side of the body. ? S - Speech. Signs are sudden trouble speaking, slurred speech, or trouble understanding what people say. ? T - Time. Time to call emergency services. Write down what time symptoms started. ??? You have other signs of a stroke, such as: ? A sudden, severe headache with no known cause. ? Nausea or vomiting. ? Seizure. These symptoms may represent a serious problem that is an emergency. Do not wait to see if the symptoms will go away. Get medical help right away. Call your local emergency services (911 in the [place] Do not drive yourself to the hospital. Summary ??? Cholesterol plaques increase your risk for heart attack and stroke. Work with your health care provider to keep your cholesterol levels in a healthy range. ??? Eat a healthy, balanced diet, get regular exercise, and maintain a healthy weight. ??? Do not use any products that contain nicotine or tobacco. These products include cigarettes, chewing tobacco, and vaping devices, such as e-cigarettes. ??? Get help right away if you have any symptoms of a stroke. This information is not intended to replace advice given to you by your health care provider. Make sure you discuss any questions you have with your health care provider. Document Revised: 12/09/2022 Document Reviewed: 07/12/2021 Elsevier Patient Education ? 2023 [employer]Pulmonary Medicine Health Risks of Smoking Smoking tobacco is [...] is absorbed quickly into your bloodstream through your lungs. Both inhaled and non-inhaled nicotine may be addictive. How can quitting affect me? There are health benefits of quitting smoking. Some benefits happen right away and others take time. Benefits may include: ??? Blood flow, blood pressure, heart rate, and lung capacity may begin to improve. However, any lung damage that has already occurred cannot be repaired. ??? Respiratory symptoms from smoking, such as nasal congestion and cough, may improve over time. ??? Your risk of heart disease, stroke, and cancer is reduced. ??? The overall quality of your health may improve. ??? You may save money, as you will not spend money on tobacco products and may spend less money on smoking-related health issues. What can increase my risk? Smoking harms nearly every organ in the body. People who smoke tobacco have a shorter life expectancy and an increased risk of many serious medical problems. These include: ??? More respiratory infections, such as colds and pneumonia. ??? Cancer. ??? Heart disease. ??? Stroke. ??? Chronic respiratory diseases. ??? Delayed wound healing and increased risk of complications during surgery. ??? Problems with reproduction, , and childbirth, such as infertility, early (premature) births, stillbirths, and defects. Secondhand smoke exposure to children increases the risk of: ??? Sudden infant syndrome (SIDS). ??? Infections in the nose, throat, or airways (respiratory infections). ??? Chronic respiratory symptoms. What actions can I take to quit? Smoking is an addiction that affects both your body and your mind, and long-time habits can be hard to change. Your health care provider can recommend: ??? Nicotine replacement products, such as patches, gum, and nasal sprays. Use these products only as directed. Do not replace cigarette smoking with electronic cigarettes, which are commonly called e-cigarettes. The safety of e-cigarettes is not known, and some may contain harmful chemicals. ??? Programs and community resources, which may include group support, education, or talk therapy. ??? Prescription medicines to help reduce cravings. ??? A combination of two or more quit methods, which may increase the success of quitting. Where to find support Follow the recommendations from your health care provider about support groups and other assistance. You can also visit: ??? [place] Department of Health and Human Services: www.smokefree.gov ??? [place] [employer]: www.freedomfromsmoking.org ??? [place] [employer]: www.heart.org Where to find more information ??? Centers for Disease Control and Prevention: www.cdc.gov ??? World Health Organization: www.who.int Summary ??? Smoking tobacco is very bad for your health. Tobacco smoke contains many toxic chemicals that can damage every part of the body. ??? Smoking is difficult to quit because a chemical in tobacco, called nicotine, causes addiction or dependence. ??? There are immediate and long-term health benefits of quitting smoking. ??? A combination of two or more quit methods may increase the success of quitting. This information is not intended to replace advice given to you by your health care provider. Make sure you discuss any questions you have with your health care provider. Document Revised: 05/10/2022 Document Reviewed: 05/10/2022 [employer] Patient Education ? 2023 [employer] CBC W/ AUTO DIFF Collected: 07/14/202 5 9:09 AM Status: F Source: [facility] TYPE CODE TESTS RESULT OUT OF RANGE REFERENCE UNITS LAB [id number](LOINC) WBC 9.0 Normal 4.0-11.0 E9/L LAB [id number](LOINC) RBC 4.1 Low 4.3-5.9 E12/L LAB [id number](LOINC) HGB 9.9 Low 13.5-17.5 gm/dL LAB [id number](LOINC) Hct 32.2 Low 37.7-49.0 % LAB [id number](LOINC) RDW 19.9 High 10.9-14.2 % LAB [id number](LOINC) MCH 24.5 Low 27.0-34.0 pg LAB [id number](LOINC) MCHC 30.8 Low 31.4-36.0 gm/dL LAB [id number](LOINC) MCV 79.5 Low 80.0-100.0 fL LAB [id number](LOINC) MPV 8.3 Normal 6.4-10.8 fL LAB [id number](LOINC) Platelet 513.0 High 150.0-500.0 E9/ L Performed By: #### [id number] # ### [facility] [address] [place] [address] IRON Collected: 9:09 AM Status: F Source: [facility] TYPE CODE TESTS RESULT OUT OF RANGE REFERENCE UNITS LAB [id number]([facility]) Iron 24 Low 35-153 microgra m/ dL Performed By: #### [id number] # ### [facility] [address] [id number] EGFR Collected: 9:09 AM Status: F Source: [facility] TYPE CODE TESTS RESULT OUT OF RANGE REFERENCE UNITS LAB [id number](INC) eGFR 83 Normal >=59 mL/min/1 .7 3 m2 Performed By: #### [id number] #### [facility] [address] [place] [address] FOLATE Collected: 9:09 AM Status: F Source: [facility] TYPE CODE TESTS RESULT OUT OF RANGE REFERENCE UNITS LAB [id number](LOINC) Folate Lvl 10.0 Normal >=6.7 ng/mL Performed By: #### [id number] # ### [facility] [address] [id number] LIPID PANEL Collected: 9:09 AM Status: F Source: [facility] TYPE CODE TESTS RESULT OUT OF RANGE REFERENCE UNITS LAB 34415518(LOINC) Chol 134 Normal 120-200 mg/dL LAB [id number](LOINC) HDL 48 Unknown mg/dL Result Comment: '>= 60 LOW R ISK' '<= 40 HIGH RISK' LAB [id number](LOINC) LDL Direct 84 Normal <=129 mg/dL LAB [id number](LOINC) Trig 48 Normal <=149 mg/dL LAB 43407778(INC) VLDL 10 Normal 7-40 mg/dL Performed By: #### [id number] # ### [facility] [address] [place] [address] FERRITIN Collected: 12/02/2024 9:09 AM Status: F Source: [facility] TYPE CODE TESTS RESULT OUT OF RANGE REFERENCE UNITS LAB [id number]([facility]) Ferritin Lvl 5 Low 24-336 ng/ mL Performed By: #### [id number] # ### [facility] [address] [place] [address] .HCV RT-PCR, QUANT (NON-GRAPH) Collected: 12/02/2024 9:09 AM Status: F Source: [facility] TYPE CODE TESTS RESULT OUT OF RANGE REFERENCE UNITS LAB CD:[id number]( LOINC) Hepatitis C Quantitation [id number] Unknown Internat ional_Un it/mL LAB CD:[id number]( LOINC) HCV log10 5.691 Unknown LAB CD:[id number](LO INC) Test Information: Comment Unknown Result Comment: The quantita tive range of this assay is 15 IU/mL to 100 million IU/mL. LAB CD:[id number](L OINC) Interpretation: Comment Unknown Result Comment: Positive HCV antibody screen with the presence of HCV RNA is consistent with active infection. Performed at: [address] [id number] MD Cj Lipscomb Performed By: #### [id number] #### [facility] [address] [place] [address] HCV ANTIBODY RFX TO QUANT PCR Collected : 12/02/2024 9:09 AM Status: F Source: [facility] TYPE CODE TESTS RESULT OUT OF RANGE REFERENCE UNITS LAB [id number]([facility]) HCV Ab Reactive Abnormal Non Reactive Result Comment: Performed at : [address] [id number] PhD Haroldo Dominguez Performed By: #### [id number] #### [facility] [address] [id number] RETIC COUNT Collected: 9:09 AM Status: F Source: [facility] TYPE CODE TESTS RESULT OUT OF RANGE REFERENCE UNITS LAB [id number]([facility]) Reticulocyte 1.2 Normal 0.5-2.2 % Result Comment: Reticulocyte count has been corrected for anemia Performed By: #### [id number] # ### [facility] [address] [place] [address] CMP Collected: 12/02/2024 9:09 AM Status: F Source: [facility] TYPE CODE TESTS RESULT OUT OF RANGE REFERENCE UNITS LAB 97951530(INC) Glucose Lvl 88 Normal 55-199 mg/d L LAB 07863567(INC) BUN 12 Normal 5-21 mg/dL LAB 2062616([facility]) Creatinine 1.0 Normal 0.5-1.3 mg/dL LAB 26246765(INC) Calcium Lvl 8.9 Normal 8.9-11.1 mg/ dL LAB 26585903(INC) Sodium Lvl 142 Normal 135-145 mmol/ L LAB 91874967(INC) Potassium Lvl 3.5 Normal 3.5-5.3 mm ol/L LAB 18823621(LOINC) Chloride 104 Normal 101-111 mmol/L LAB [id number](INC) CO2 32 High 21-31 mmol/L LAB 39653231(INC) Alk Phos 86 Normal 21-98 Int._Un it /L LAB [id number](LOINC) Bili Total 0.5 Normal 0.0-1.1 mg/dL LAB 17630909(LOINC) Albumin Lvl 4.1 Normal 3.3-5.0 gm/d L LAB [id number](LOINC) Total Protein 7.1 Normal 6.0-7.8 gm /dL LAB [id number](LOINC) ALT 29 Normal 6-46 Int._Uni t /L LAB 69439743(LOINC) AST 21 Normal 5-43 Int._Uni t /L LAB 32955054(LOINC) BUN/Creat Ratio 12 Normal 10-20 No Units LAB [id number]([facility]) AGAP 10 Normal 6-16 mEq/L LAB 26655959(INC) Globulin 3.0 Normal 1.4-4.0 gm/dL LAB 50707769(INC) A/G Ratio 1.4 Normal 1.1-2.2 Performed By: #### [id number] # ### [facility] [address] [place] [address] PSA SCREEN, TOTAL Collected: 9:09 AM Status: F Source: [facility] TYPE CODE TESTS RESULT OUT OF RANGE REFERENCE UNITS LAB [id number]([facility]) PSA Scrn Tot. 1.0 Normal 0.1-3.5 ng/mL Result Comment: The concentr ation of PSA determined by different manufacturers can vary due to differences in assay methods and reagent specificity. Values obtained from different assay methods cannot be used interchangeably. The methodology used for this result was chemiluminescence using [employer]'s Access Hybritech PSA reagent. Performed By: #### [id number] #### [facility] [address] [place] [address] CBC W/ AUTO DIFF Collected: 12/02/2024 9:09 AM Statu s: F Source: [facility] TYPE CODE TESTS RESULT OUT OF RANGE REFERENCE UNITS LAB 00519105(LOINC ) WBC 9.0 Normal 4.0-11.0 E9/L LAB 37682338(LOINC ) RBC 4.1 Low 4.3-5.9 E12/L LAB 51142637(LOINC ) HGB 9.9 Low 13.5-17.5 gm/dL LAB 49514805(LOINC ) Hct 32.2 Low 37.7-49.0 % LAB 61040285(LOINC ) RDW 19.9 High 10.9-14.2 % LAB 22328693(LOINC ) MCH 24.5 Low 27.0-34.0 pg LAB 93000475(LOINC ) MCHC 30.8 Low 31.4-36.0 gm/dL LAB 23667827(LOINC ) MCV 79.5 Low 80.0-100.0 fL LAB 83200646(LOINC ) MPV 8.3 Normal 6.4-10.8 fL LAB 49557851(LOINC ) Platelet 513.0 High 150.0-500.0 E9/L LAB 05721749(LOINC ) Segs Man 55.0 Normal 36.0-75.0 % LAB 39840889(LOINC ) Lymph Man 36.0 Normal 14.0-50.0 % LAB 16205921(LOINC ) Monocyte Man 7.0 Normal 4.0-14.0 % LAB 95781380(LOINC ) Eos Man 2.0 Normal 0.0-8.0 % LAB 99882154(LOINC ) Basophil Man 0.0 Normal 0.0-2.0 % LAB 81166505(LOINC ) NRBC Man 2.0 High 0.0-0.0 % LAB [id number](LOINC ) Neutro Abs Man 5.0 Unknown E9/L LAB 71137861(LOINC ) Lymph Abs Man 3.2 Normal 1.0-4.0 E9/L LAB 83132891(LOINC ) Ceiba Abs Man 0.6 Normal 0.2-1.0 E9/L LAB [id number](LOINC ) Eos Abs Man 0.2 Normal 0.0-0.5 E9/L LAB 55036530(LOINC ) Basophil Abs Man 0.0 Normal 0.0-0.2 E9/L LAB 47618620(LOINC ) RBC Morph SEE MORPHOLOGY Unknown LAB 47966894(LOINC ) Hypochromasia PRESENT Unknown LAB 33558208(LOINC ) Anisocytosis PRESENT Unknown Performed By: #### [id number] # ### [facility] [address] [place] [address] VIT B12 Collected: 12/02/2024 9:09 AM Status: F Source: [facility] TYPE CODE TESTS RESULT OUT OF RANGE REFERENCE UNITS LAB 33025789(LOINC) Vitamin B12 Lvl 548 Normal 50-1500 pg/mL Performed By: #### [id number] # ### [facility] [address] [place] [address] TIBC CALCULATED Collected: 9:09 AM Status: F Source: [facility] TYPE CODE TESTS RESULT OUT OF RANGE REFERENCE UNITS LAB [id number](LOINC) TIBC 472 High 250-400 microgra m/ dL LAB [id number](LOINC) Transferrin 337 Normal 200-370 mg/d L Performed By: #### [id number] #### [facility] [address] [place] [address] FAMILY MEDICINE OFFICE/CLINI C NOTE Observed: 12/02/2024 8:14 AM Status: F Source: [facility] Family Medicine Office/Clini c Note Chief Complaint The patient reports worsening restless legs syndrome and concerns about vaccination status. HPI Staff Patient is here for follow up on hypertension. HLD How often are you checking your blood pressure? Not checking What are your average readings? Are you compliant with your diet? no Do you exercise? yes walks Are you compliant with your medications? yes Do you have side effects from the medication? no Do you have any of the following symptoms? Chest Pain? no Palpitations? no MULLINS/SOB? yes Headache? no Peripheral Edema? no Light Headedness? no Patient stated that his restless leg (left) is not getting better, stated that he has to move his leg often when trying to relax and unable to sleep at night. History of Present Illness 64 Years old Male here for 4 month chronic care HPI staff / Chief Complaint confirmed with the patient Screening: Colon Cancer screenin03/23/2024 with a year f/u recommended; this patient does _ have family history of colon cancer: found a blockage, had a colon resection 04/10/2024 Labs: 08/01/2023 for office, 04/2024 hospital PSA: 1.1 on 02/2022 ; this patient does _ have a family history of prostate cancer Smokers/ former smokers: Low dose lung CT: _ List of Providers Pain clinic: Dr Andrade Cardiovascular surgeon: Dr Yan Material Scheduler: Dr Izaguirre Registration Manager: [facility] Cr/eGFR: eGFR: 95 mL/min/1.73 m2 (08/01/23 08:56:00) Creatinine: 0.9 mg/dL (08/01/23 08:56:00) A1c: No qualifying data available. TSH: No qualifying data available. Vit D: No qualifying data available. LDL: LDL Direct: 72 mg/dL (08/01/23 08:56:00) Lipids: Chol: 125 mg/dL (08/01/23 08:56:00) HDL: 42 mg/dL (08/01/23 08:56:00) LDL Direct: 72 mg/dL (08/01/23 08:56:00) Tri mg/dL (08/01/23 08:56:00) VLDL: 18 mg/dL (08/01/23 08:56:00) Microalbumin: No qualifying data available. INR: INR: 1.12 (11/06/24 08:00:00) The patient is presenting with management of restless legs syndrome and review of vaccination status as well as his chronic care follow-up. The patient reports worsening symptoms of restless legs syndrome, particularly during the morning and night, despite taking medication twice daily. He experiences significant discomfort at work. The patient is currently on ropinirole, and asking for dose adjustment. The patient has a history of a colostomy, which affects his dietary choices. Certain foods, particularly meats, exacerbate gastrointestinal symptoms, leading to frequent bathroom visits. He avoids red meats and prefers eggs, potatoes, and fish, which are better tolerated. The patient reports persistent hoarseness of voice, which has been present since a surgical procedure last year. He attributes this to possible intubation during surgery, although smoking may also contribute. 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 He is due for a shingles vaccine and may need to visit a pharmacy for administration. Review of Systems PHQ Score Initial Depression Screen Score: 0 SCORE - Neurological: Reports worsening restless legs syndrome, particularly in the morning and night. - Gastrointestinal: Reports frequent bathroom visits triggered by certain foods, particularly meats. - Respiratory: Reports persistent hoarseness of voice since last year. - General: Denies alcohol consumption. Physical Exam Vitals & Measurements HR: 72(Peripheral) RR: 18 BP: 126/88 SpO2: 97% HT: 176 cm HT: 69 in WT: 83.6 kg WT: 184.306 lb BMI: 26.99 Constitutional: Well-groomed, well-nourished, no signs of acute [...] Assessment/Plan 1. Benign essential HTN (I10: Essential (primary) hypertension) The importance of the following were all reviewed with the patient: -Take medications as prescribed. There are simple Lifestyle Modifications that you can do to reduce your blood pressure. -Weight Reduction -Follow the DASH eating plan. -Reduce Sodium (Salt) Intake to 2000mg per day. -Use Moderation when consuming alcohol. - To improve your health we recommend increasing your level of moderate exercise to at least 2.5 hrs per week. Blood pressure is well-managed and controlled at this time we will continue the metoprolol as previously prescribed. Ordered: 1126F Pain severity quantified; no pain present CBC w/ Auto Diff Comprehensive Metabolic Panel Current tobacco smoker 1034F Functional status assessed 1170F HCV Antibody RFX to Quant PCR Lab Specimen Collect [id number] Lipid Panel Medication list documented in medical record 1159F Most recent diastolic blood pressure 80-89 mm Hg 3079F Patient screen for fall risk: no falls in last year or 1 fall with no injury in last year 1101F PSA Screen, Total Systolic BP <130 mm Hg (Most Recent) 3074F 2. Combined hyperlipidemia (E78.2: Mixed hyperlipidemia) The importance of the following were all reviewed with the patient: -Take medications as prescribed. - Recommended following the TLC Lipid Diet which is a low fat/low cholesterol diet for high cholesterol. - More information about this eating plan can be found here: http://tlcdiet.org - To improve your health we recommend increasing your level of moderate exercise to at least 2.5 hrs per week. For more information, please visit the CDC Exercise and Fitness Recommendations at www.cdc.gov/physicalactivity/basics/index.htm He is due for his lipid panel we will go ahead and get that drawn. Encouraged to continue taking the Lipitor at 20 mg we will make adjustments accordingly to his results. 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 Monitor any signs and symptoms. Ordered: 1126F Pain severity quantified; no pain present CBC w/ Auto Diff Comprehensive Metabolic Panel Current tobacco smoker 1034F Functional status assessed 1170F HCV Antibody RFX to Quant PCR Lab Specimen Collect 99397 Lipid Panel Medication list documented in medical record 1159F Most recent diastolic blood pressure 80-89 mm Hg 3079F Patient screen for fall risk: no falls in last year or 1 fall with no injury in last year 1101F PSA Screen, Total Systolic BP <130 mm Hg (Most Recent) 3074F 4. Restless leg syndrome (G25.81: Restless legs syndrome) The patient reports worsening symptoms of restless legs syndrome, particularly during the morning and night, despite taking medication twice daily. The plan is to increase the medication dosage to three times daily, at the dose of 3 mg and reassess in six weeks. Ordered: 1126F Pain severity quantified; no pain present CBC w/ Auto Diff Comprehensive Metabolic Panel Current tobacco smoker 1034F Functional status assessed 1170F HCV Antibody RFX to Quant PCR Lab Specimen Collect 19394 Lipid Panel Medication list documented in medical record 1159F Most recent diastolic blood pressure 80-89 mm Hg 3079F Patient screen for fall risk: no falls in last year or 1 fall with no injury in last year 1101F PSA Screen, Total Systolic BP <130 mm Hg (Most Recent) 3074F 5. Cigarette nicotine dependence (F17.210: Nicotine dependence, cigarettes, uncomplicated) Strongly recommend patient to quit tobacco use. Cigarette smoking harms nearly every organ of the body, causes many diseases, and reduces the health of smokers in general. Quitting smoking lowers risk for smoking-related diseases and increases life expectancy. Encouraged patient to visit helpful online resources and/or free telephone support such as [facility]. Prescription medication to help smoking cessation available on request. Ordered: CBC w/ Auto Diff Comprehensive Metabolic Panel HCV Antibody RFX to Quant PCR Lab Specimen Collect [id number] Lipid Panel PSA Screen, Total 6. Hoarseness of voice (R49.0: Dysphonia) The patient reports persistent hoarseness of voice since a surgical procedure last year. The plan includes trying home remedies such as gargling with warm salt water and avoiding irritants. May need a referral to ENT for further evaluation. 7. Difficulty sleeping (G47.9: Sleep disorder, unspecified) Encouraged to try [id number] melatonin 5 to 10 mg every night. If no improvement may look into Tylenol PM as well. Ordered: CBC w/ Auto Diff Comprehensive Metabolic Panel HCV Antibody RFX to Quant PCR Lipid Panel PSA Screen, Total 8. Overweight (E66.3: Overweight) Calorie restriction along with routine aerobic exercises discussed in order to avoid hypertension, osteoarthritis, metabolic syndrome and/or worsening of chronic underlying disease states. Encouraged to limit sugary drinks, foods high in sodium, as well as alcohol. Ordered: 1126F Pain severity quantified; no pain present CBC w/ Auto Diff Comprehensive Metabolic Panel Current tobacco smoker 1034F Functional status assessed 1170F HCV Antibody RFX to Quant PCR Lipid Panel Medication list documented in medical record 1159F Most recent diastolic blood pressure 80-89 mm Hg 3079F Patient screen for fall risk: no falls in last year or 1 fall with no injury in last year 1101F PSA Screen, Total Systolic BP <130 mm Hg (Most Recent) 3074F 9. BMI 26.0-26.9,adult (Z68.26: Body mass index [BMI] 26.0-26.9, adult) see #8 Ordered: CBC w/ Auto Diff Comprehensive Metabolic Panel HCV Antibody RFX to Quant PCR Lipid Panel PSA Screen, Total 10. Medication management (Z79.899: Other meterman (current) drug therapy) Ordered: 1126F Pain severity quantified; no pain present CBC w/ Auto Diff Comprehensive Metabolic Panel Current tobacco smoker 1034F Functional status assessed 1170F HCV Antibody RFX to Quant PCR Lipid Panel Medication list documented in medical record 1159F Most recent diastolic blood pressure 80-89 mm Hg 3079F Patient screen for fall risk: no falls in last year or 1 fall with no injury in last year 1101F PSA Screen, Total Systolic BP <130 mm Hg (Most Recent) 3074F 11. Encounter for screening for cardiovascular disorders (Z13.6: Encounter for screening for cardiovascular disorders) Ordered: 1126F Pain severity quantified; no pain present CBC w/ Auto Diff Comprehensive Metabolic Panel Current tobacco smoker 1034F Functional status assessed 1170F HCV Antibody RFX to Quant PCR Lipid Panel Medication list documented in medical record 1159F Most recent diastolic blood pressure 80-89 mm Hg 3079F Patient screen for fall risk: no falls in last year or 1 fall with no injury in last year 1101F PSA Screen, Total Systolic BP <130 mm Hg (Most Recent) 3074F 12. Screening for viral disease (Z11.59: Encounter for screening for other viral diseases) The patient is concerned about his vaccination status due to a history of splenectomy, requiring regular updates on vaccines. He is due for a shingles vaccine and may need to visit a pharmacy for administration. Ordered: 1126F Pain severity quantified; no pain present CBC w/ Auto Diff Comprehensive Metabolic Panel Current tobacco smoker 1034F Functional status assessed 1170F HCV Antibody RFX to Quant PCR Lipid Panel Medication list documented in medical record 1159F Most recent diastolic blood pressure 80-89 mm Hg 3079F Patient screen for fall risk: no falls in last year or 1 fall with no injury in last year 1101F PSA Screen, Total Systolic BP <130 mm Hg (Most Recent) 3074F 13. Diabetes mellitus screening (Z13.1: Encounter for screening for diabetes mellitus) Ordered: 1126F Pain severity quantified; no pain present CBC w/ Auto Diff Comprehensive Metabolic Panel Current tobacco smoker 1034F Functional status assessed 1170F HCV Antibody RFX to Quant PCR Lipid Panel Medication list documented in medical record 1159F Most recent diastolic blood pressure 80-89 mm Hg 3079F Patient screen for fall risk: no falls in last year or 1 fall with no injury in last year 1101F PSA Screen, Total Systolic BP <130 mm Hg (Most Recent) 3074F 14. Prostate cancer screening (Z12.5: Encounter for screening for malignant neoplasm of prostate) Ordered: 1126F Pain severity quantified; no pain present Current tobacco smoker 1034F Functional status assessed 1170F Medication list documented in medical record 1159F Most recent diastolic blood pressure 80-89 mm Hg 3079F Patient screen for fall risk: no falls in last year or 1 fall with no injury in last year 1101F Systolic BP <130 mm Hg (Most Recent) 3074F 15. Lipid screening (Z13.220: Encounter for screening for lipoid disorders) Orders: ropinirole, 3 mg = 1 tab(s), Oral, TID, # 90 tab(s), Refills(s) 0, Pharmacy: [facility], 176, cm, 12/02/24 8:25:00 EDT, Height/Length Dosing, 83.6, kg, 12/02/24 8:25:00 EDT, Weight Dosing This note was created by the assist of a speech-recognition program although the intention is to generate a document that actually reflects the content of the visit, no guarantees can be provided that every mistake has been identified and corrected by editing. Follow-up With When Contact Information Curt AQUINO, CONCRETE VIBRATOR OPERATOR-POLYMER MATERIALS CONSULTANT, Beth Dash In [address] [place] [phone] Additional Instructions: RLS Patient Education Health Risks of Smoking Hypertension, Adult High Cholesterol Hoarseness Problem List/Past Medical History Ongoing AAA (abdominal aortic aneurysm) Actinic keratoses SANDEEP (acute kidney injury) Anticoagulated Benign essential HTN BMI 26.0-26.9,adult Cigarette nicotine dependence Combined hyperlipidemia Constipation Difficulty sleeping Diverticulitis of colon Embolism of iliac artery GERD (gastroesophageal reflux disease) History of diverticular abscess of colon History of reversal of ileostomy Hoarseness of voice Hypocalcemia Intermittent claudication of left lower extremity due to atherosclerosis Kidney stone on left side Lipid screening Lumbar radiculopathy Medication management Multiple lipomas Overweight PAD (peripheral artery disease) Pain in joint, multiple sites Restless leg syndrome S/P colon resection S/P splenectomy Sacroiliitis Sciatica Historical Smoker Procedure/Surgical History CT myelogram of lumbar region (11/06/2024), Injection of facet joint using fluoroscopic guidance [...] left flank area, transforaminal epidural steroid injection. Medications atorvastatin 20 mg Tab, 20 mg= 1 tab(s), Oral, Daily, 4 refills baclofen 10 mg Tab, 10 mg= 1 tab(s), Oral, TID, PRN baclofen 10 mg tablet, 0 buPROPion 150 mg ER Tab, 150 mg= 1 tab(s), Oral, BID, 11 refills cilostazol 100 mg Tab, See Instructions, 3 refills gabapentin 800 mg Tab, 800 mg= 1 tab(s), Oral, TID handicap placard, See Instructions Metoprolol succinate 25 mg ER Tablet Plavix 75 mg Tab, 75 mg= 1 tab(s), Oral, Daily, 4 refills Protonix 40 mg Tab-DR, 40 mg= 1 tab(s), Oral, Daily, 4 refills ropinirole 3 mg Tab, 3 mg= 1 tab(s), Oral, TID Allergies No Known Allergies No Known Medication Allergies Social History Alcohol - Denies Alcohol Use, 04/27/2022 Past, Beer, 08/06/2020 Employment/School Employed, 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 Never Smokeless Tobacco Use:. Cigarettes, 1 per day. 47 year(s). Started age 11.0 Years. Previous treatment: None. Ready to change: No. Yes, 07/30/2024 10 or more cigarettes (1/2 pack or more)/day in last 30 days Tobacco Use:., 06/04/2024 Family History Alcoholism: Father. Arthritis: Mother. Cancer: Mother and Father. Immunizations Vaccine Date Status Comments pneumococcal 13-valent vaccine 04/12/2024 Recorded 2024-12-02: VIS DATE: 09/30/2022 meningococcal group B vaccine 04/12/2024 Recorded 2024-12-02: VIS DATE: 12/25/2020 meningococcal conjugate vaccine 04/12/2024 Recorded 2024-12-02: VIS DATE: 12/25/2020 influenza virus vaccine, inactivated 04/12/2024 Recorded 2024-12-02: VIS DATE: 12/25/2020 haemophilus b conjugate (PRP-T) vaccine 04/12/2024 Recorded 2024-12-02: VIS DATE: 12/25/2020 influenza virus vaccine, inactivated - Not Given Postpone due to refusal influenza virus vaccine, inactivated - Not Given Patient Refuses diphtheria/pertussis, acel/tetanus adult 08/21/2021 Given SARS-CoV-2 (COVID-19) mRNA BNT-162b2 vax 09/04/2020 Given Prophylaxis SARS-CoV-2 (COVID-19) mRNA BNT-162b2 vax 08/07/2020 Given Prophylaxis influenza virus vaccine, inactivated - Not Given Patient Refuses influenza virus vaccine, inactivated 04/11/2019 Given diphtheria/pertussis, acel/tetanus adult 03/24/2017 Given Result Comment: Electronical ly Signed By: Curt AQUINO, Beth HARLEY\.br\Date and Time Signed: 12/02/24 10:55 EDT AMBULATORY VISIT SUMMARY Observed: 12/02 8:14 AM Status: F Source: [facility] Ambulatory Visit Summary DEN[place] PERDUE :1960 Visit Date:12/02/2024 Ambulatory Visit Instructions Your Diagnosis Benign essential HTN Combined hyperlipidemia Embolism of iliac artery Restless leg syndrome Cigarette nicotine dependence Hoarseness of voice Difficulty sleeping Overweight BMI 26.0-26.9,adult Medication management Encounter for screening for cardiovascular disorders Screening for viral disease Diabetes mellitus screening Prostate cancer screening Lipid screening Your Care Team Attending Physician - CRICKET Anders Tammy L. Primary Care Physician - CRICKET Anders Tammy L. This Is Your Medications List ropinirole (ropinirole 3 mg Tab) Contact prescribing physician if questions or concerns Misc Prescription (baclofen 10 mg tablet) Misc Prescription (handicap placard) atorvastatin (atorvastatin 20 mg Tab) baclofen (baclofen 10 mg Tab) buPROPion (buPROPion 150 mg ER Tab) cilostazol (cilostazol 100 mg Tab) clopidogrel (Plavix 75 mg Tab) gabapentin (gabapentin 800 mg Tab) metoprolol (Metoprolol succinate 25 mg ER Tablet) pantoprazole (Protonix 40 mg Tab-DR) Procedures Performed CT myelogram of lumbar region (11/06/2024), Injection of facet joint using fluoroscopic guidance [...] steroid injection. Discharge Vitals Heart Rate (Peripheral) 72 Respiratory Rate 18 Blood Pressure 126/88 Height 176 cm Height 69 in Weight 83.6 kg Weight 184.306 lb BMI 26.99 What to do next Scheduled Follow-Up Appointments Monday 8:20 AM EDT With: Curt AQUINO, BERNARD-Beth JONES Where: [address] [address]- You Need to Schedule the Following Appointments Follow Up with Curt AQUINO, BERNARD-ROBERT, Beth Dash When: In 6 weeks Comments: RLS Where: [address] [place] [phone] Medications What How Much When Why Instructions Changed ropinirole (ropinirole 3 mg Tab) 1 Tablets By Mouth 3 times a day Pickup at [facility] Unchanged atorvastatin (atorvastatin 20 mg Tab) 1 Tablets By Mouth Every day Contact prescribing physician if questions or concerns Unchanged baclofen (baclofen 10 mg Tab) 1 Tablets By Mouth 3 times a day as needed for Muscle pain Contact prescribing physician if questions or concerns Unchanged buPROPion (buPROPion 150 mg ER Tab) 1 Tablets By Mouth 2 times a day Contact prescribing physician if questions or concerns Unchanged cilostazol (cilostazol 100 mg Tab) See instructions Take one tablet twice a day Contact prescribing physician if questions or concerns Unchanged clopidogrel (Plavix 75 mg Tab) 1 Tablets By Mouth Every day Contact prescribing physician if questions or concerns Unchanged gabapentin (gabapentin 800 mg Tab) 1 Tablets By Mouth 3 times a day Contact prescribing physician if questions or concerns Unchanged metoprolol (Metoprolol succinate 25 mg ER Tablet) Contact prescribing physician if questions or concerns Unchanged Misc Prescription (baclofen 10 mg tablet) 0 Contact prescribing physician if questions or concerns Unchanged Misc Prescription (handicap placard) See instructions Intermittent claudication of left lower extremity due to atherosclerosis used to access handicap parking places, limited 5 years, exp: 2029 Contact prescribing physician if questions or concerns Unchanged pantoprazole (Protonix 40 mg Tab-DR) 1 Tablets By Mouth Every day Contact prescribing physician if questions or concerns Pharmacy Information [facility]: [address] [place] [phone] Allergies No Known Allergies No Known Medication Allergies Problems Ongoing - Any problem that you are currently receiving treatment for. AAA (abdominal aortic aneurysm) Actinic keratoses SANDEEP (acute kidney injury) Anticoagulated Benign essential HTN BMI 26.0-26.9,adult Cigarette nicotine dependence Combined hyperlipidemia Constipation Difficulty sleeping Diverticulitis of colon Embolism of iliac artery GERD (gastroesophageal reflux disease) History of diverticular abscess of colon History of reversal of ileostomy Hoarseness of voice Hypocalcemia Intermittent claudication of left lower extremity due to atherosclerosis Kidney stone on left side Lipid screening Lumbar radiculopathy Medication management Multiple lipomas Overweight PAD (peripheral artery disease) Pain in joint, multiple sites Restless leg syndrome S/P colon resection S/P splenectomy Sacroiliitis Sciatica Historical - Any problem that you are no longer receiving treatment for. Smoker Patient Survey You may receive a survey via text or e-mail asking about your office visit. Please share your experience with us by completing your survey. We appreciate your feedback and thank you for choosing us for your care. Education Materials Hoarseness Hoarseness, also called dysphonia, is any abnormal change in your voice that can make it difficult to speak. Your voice may sound raspy, breathy, or strained. Hoarseness is caused by a problem with your vocal cords (vocal folds). These are two bands of tissue inside your voice box (larynx). When you speak, your vocal cords move back and forth to create sound. The surfaces of your vocal cords need to be smooth for your voice to sound clear. Swelling or lumps on your vocal cords can cause hoarseness. Vocal cord problems may be the result of injuries or abnormal growths, certain diseases, upper respiratory infection, or allergies. Other causes may include medicine side effects and exposure to irritants. Follow these instructions at home: Pay attention to any changes in your symptoms. Take these actions to stay safe and to help relieve your symptoms: Lifestyle ??? Do not eat foods that give you heartburn, such as spicy or acidic foods like hot peppers and orange juice. These foods can cause a gastroesophageal reflux that may worsen your vocal cord problems. ??? Limit how much alcohol and caffeine you drink as told by your health care provider. ??? Drink enough fluid to keep your urine pale yellow. ??? Do not use any products that contain nicotine or tobacco. These products include cigarettes, chewing tobacco, and vaping devices, such as e-cigarettes. If you need help quitting, ask your health care provider. ??? Avoid secondhand smoke. General instructions ??? Use a humidifier if the air in your home is dry. ??? Avoid coughing or clearing your throat. ??? Do not whisper. Whispering can cause muscle strain. ??? Do not speak in a loud or harsh voice. ??? Rest your voice. If recommended by your health care provider, schedule an appointment with a speech-english language learner teacher. This specialist may give you methods to try that can help you avoid misusing your voice. Contact a health care provider if: ??? Your voice is hoarse longer than 2 weeks. ??? You almost lose or completely lose your voice for more than 3 days. ??? You have pain when you swallow or try to talk. ??? You feel a lump in your neck. Get help right away if: ??? You have trouble swallowing. ??? You feel like you are choking when you swallow. ??? You cough up blood or vomit blood. ??? You have trouble breathing. ??? You choke, cannot swallow, or cannot breathe if you lie flat. ??? You notice swelling or a rash on your body, face, or tongue. These symptoms may represent a serious problem that is an emergency. Do not wait to see if the symptoms will go away. Get medical help right away. Call your local emergency services (911 in the [place] Do not drive yourself to the hospital. Summary ??? Hoarseness, also called dysphonia, is any abnormal change in your voice that can make it difficult to speak. Your voice may sound raspy, breathy, or strained. ??? Hoarseness is caused by a problem with your vocal cords (vocal folds). ??? Do not speak in a loud or harsh voice, whisper, use nicotine or tobacco products, or eat foods that give you heartburn. ??? See your health care provider if your hoarseness does not improve after 2 weeks. This information is not intended to replace advice given to you by your health care provider. Make sure you discuss any questions you have with your health care provider. Document Revised: 10/26/2021 Document Reviewed: 10/26/2021 [employer] Patient Education ??? 2023 [facility] Patient Portal You may access all of your results and other medical record information on our secure patient portal. If you are not signed up for this yet, please contact [facility] at [phone] to get signed up today. Language Information Language assistance services are available as needed. PROGRESS Observed: 11/12/2024 1:15 PM Status: COMPLETED Source: [facility] Neurosurgery Clinic Note Chief Complaint: Left low back and leg pain, imaging follow-up. Interval History: Denver Perdue is a 64 y.o. year-old male who presents for for review of a CT myelogram of the lumbar and thoracic spine. He continues to note that his leg pain is worse than his back pain. He denies any substantial changes in the pattern of pain since last seen. A CT myelogram was performed at [facility]. In review of his symptoms, he was first evaluated in referral from pain management at [facility] for evaluation of left low back pain which radiates into the left leg on 10/21/2024. Pain has been present for approximately 7 years. He denies any clear inciting event. The pain is worsened over time. He notes that pain is centered in the left low back. It radiates down the lateral aspect of the left leg, down the lateral aspect of the left calf, and into the bottom of the left foot. Pain had radiated into the bilateral legs until about 6 months ago, when the right leg pain improved. He notes numbness involving the bilateral soles of the feet as well as numbness in the same distribution of the pain in the left leg. He feels that his left leg is weaker than the right. He has undergone multiple nonsurgical therapies including injections, physical therapy, gabapentin, and baclofen. He has not undergone MRI imaging due to shrapnel in the left shoulder and neck. He did last undergo CT imaging of the lumbar spine in 2022. He underwent an EMG of the lower extremities by Dr. Phillips in the [place] which stated evidence of a chronic left L5 radiculopathy without active denervation. He is referred to discuss potential surgical treatments including potential treatment with spinal cord stimulation. Problem List: Problem List[1] Past Medical History: Medical History[2] Past Surgical History: Surgical History[3] Medications: Current Outpatient Medications Medication Instructions atorvastatin (LIPITOR) 20 mg, oral, Daily baclofen (Lioresal) 10 mg tablet TAKE 1 TABLET BY MOUTH THREE TIMES DAILY NEEDED for MUSCLE pain buPROPion SR (WELLBUTRIN SR) 150 mg, oral, 2 times daily RT cholecalciferol (VITAMIN D-3) 2,000 Units, oral cilostazol (PLETAL) 100 mg, oral, 2 times daily clopidogrel (PLAVIX) 75 mg, oral, Daily gabapentin (Neurontin) 600 mg tablet 1 tablet, oral, 3 times daily RT metoprolol succinate XL (TOPROL-XL) 25 mg, oral, Daily nicotine (Nicoderm CQ) 14 mg/24 hr patch 1 patch, transdermal pantoprazole (PROTONIX) 40 mg, oral, Daily rOPINIRole (REQUIP) 2 mg, oral, 2 times daily RT Allergies: Allergies[4] Review of Systems: Review of Systems Musculoskeletal: Positive for back pain. Exam: Vitals: Vitals: 11/12/24 1310 BP: 128/70 Pulse: 66 Temp: 36.5 ???C (97.7 ???F) Body mass index is 25.83 kg/m???. Deferred. Lab: No visits with results within 30 Day(s) from this visit. Latest known visit with results is: No results found for any previous visit. Imaging: CT myelogram imaging of the thoracic and lumbar spine from [facility] dated 11/06/2024 is available for review. There is dense pooling of the contrast agent in the dependent portions of the lumbar and thoracic thecal sac. There is poor opacification of the remaining CSF. At least on my interpretation of imaging on the remote viewer, the study is nondiagnostic. There is a suggestion of the disc protrusion with lateral recess stenosis at the L4-5 level on the left. The report which accompanies it, however details some regions of neuroforaminal narrowing without definite canal stenosis. Impression: Denver Perdue is a 64 y.o. male with a history of left low back and left leg pain. The distribution of symptoms is suggestive of an L5 radiculopathy and an EMG had demonstrated evidence of chronic L5 radiculopathy on the left. A CT myelogram obtained and attempted define a structural lesion does not appear to be of diagnostic quality to my ability to interpret the images. The patient, his , and I had a ludin conversation. We discussed the difficulty in determining if there is a surgical intervention. He has experienced improvement with epidural steroid injections near the site in the past, although the relief is time-limited. This would again suggest that there may be a target for structural decompression. At this point, I believe that there are 3 major options. The first would be continuing epidural steroid injections and pain management while avoiding additional intervention. The second would be to undertake a percutaneous trial of spinal cord stimulation. While this may be of help in reducing pain symptoms, it is unlikely to resolve left lower extremity pain. A trial through a thoracic laminotomy could be considered, but a percutaneous trial is less invasive and based on the available imaging of the thoracic spine there is no critical stenosis or prior surgical intervention that would prevent a percutaneous trial. The patient, his , and I spent some time talking about the difference between a percutaneous trial and a trial via thoracic laminotomy. The third option would be undertaking a left L4 and L5 hemilaminectomy with possible discectomy. Given the poor imaging quality, it is difficult for me to predict how helpful such intervention would be. If there is a substantial amount of stenosis, this maneuver may be a more permanent solution to chronic radicular pain the neuromodulation. It does, however, carry the risks of surgical intervention. At the conclusion of the conversation, they wished for my recommendation as to the right thing to do. I indicated that I would consider each of the options separately. If his pain management doctors do not feel that a percutaneous trial would be reasonable, I would also be willing to explore a trial via thoracic laminotomy. Plan: 1. I will attempt to obtain a neuroradiology evaluation of the outside imaging to aid in interpretation at [facility]. 2. If the patient elects to proceed with a decompressive surgery, we will plan to return to neurosurgery clinic and discussed the details. 3. If the patient elects for a trial of neuromodulation with spinal cord stimulation and a percutaneous trial as deemed to be a poor option, I would be happy to see him to discuss a paddle type trial. A voice recognition system was used to compose this note. While attempts have been made to review dictation as it is transcribed, on occasion spoken words may be misinterpreted by the technology leading to omissions and inappropriate words or phrases. [1] Patient Active Problem List Diagnosis Actinic keratoses Acute diverticulitis SANDEEP (acute kidney injury) AAA (abdominal aortic aneurysm) without rupture Aneurysm of infrarenal abdominal aorta Anticoagulated Impaired mobility and activities of daily living Atheroscler of [place] artery of both legs with intermit claudication Intermittent claudication of left lower extremity due to atherosclerosis Back pain, lumbosacral Chest pain Benign essential HTN Primary hypertension BMI 27.0-27.9,adult Chronic midline low back pain with bilateral sciatica Colonic diverticular abscess Constipation Diverticulitis of sigmoid colon Dry skin dermatitis Atherosclerosis of [place] arteries of extremities with intermittent claudication, left leg Edema of left lower leg due to peripheral venous insufficiency GERD (gastroesophageal reflux disease) Hemorrhagic shock (CMS/HCC) Herniated lumbar intervertebral disc History of colonic polyps History of diverticular abscess of colon History of reversal of ileostomy Hypocalcemia Hypokalemia Ileostomy in place (CMS/HCC) Kidney stones Labile blood pressure Ileostomy dysfunction (CMS/HCC) Lumbar degenerative disc disease Lumbar radiculopathy Spondylosis of lumbar spine Mixed hyperlipidemia Multiple joint pain Multiple lipomas Nicotine dependence Candidiasis Oral candidiasis Overweight PAD (peripheral artery disease) Peripheral vascular disease Perforation and abscess of large intestine concurrent with and due to diverticulitis Post-op pain Restless leg syndrome Rheumatoid arthritis (CMS/HCC) S/P colon resection S/P splenectomy Status post splenectomy Sacroiliitis Sciatica Shock (CMS/HCC) Smoker Thrombosis of arteries of lower extremity (CMS/HCC) Thrombosis of both common femoral arteries (CMS/HCC) 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 No pertinent past medical history. [3] Past Surgical History: Procedure Laterality Date AORTIC VALVE SURGERY COLOSTOMY COLOSTOMY CLOSURE HERNIA REPAIR LIPOMA RESECTION SPLENECTOMY, TOTAL [4] No Known Allergies FOLLOW-UP Observed: 11/12/2024 1:15 PM Status: COMPLETED Source: [facility] [id number] Denver Perdue 89 M Date Provider Department Center 11/12/2024 [facility] SURG Second Fl No family history on file Level of Service:21484 [place] OFFICE/OUTPATIENT ESTABLISHED MOD MDM 30 MIN Reason for Visit and Comments: Follow-up [608055] CT SPINE THORACIC W/ CONTRAST Observed: 11/06/2024 9:28 AM Status: F Source: [facility] Exam Date/Time: 11/06/2024 09:38 EDT Reason for Exam: M54.10 Report IMPRESSION: Mild degenerative changes thoracic spine without high-grade canal or foraminal narrowing. HISTORY: Back pain. TECHNIQUE: CT of the thoracic spine with intrathecal contrast, without IV contrast. Spiral, high resolution axial images were obtained from the cervicothoracic junction to thoracolumbar junction with sagittal and coronal planar reconstructions. All CT scans at this facility use dose modulation, iterative reconstruction, and/or weight based dosing when appropriate to reduce radiation dose to as low as reasonably achievable. COMPARISON: No prior dedicated thoracic spine imaging available. RESULT: Counting reference: Lumbosacral junction. 12 rib-bearing vertebral bodies. Alignment: Mild thoracic kyphosis. Mild dextroscoliosis. Grade 1 retrolisthesis of T12 on L1 measuring around 4 mm. Bone marrow / fracture: No evidence for acute fracture. No destructive osseous lesions. Underlying decreased bone mineral density. Thoracic soft tissues: Of the meniscus changes within the imaged lungs. Biapical pleural parenchymal thickening/scarring. Granulomatous calcifications. No distinct acute findings. Renal calculi, better imaged on the concurrent CT lumbar spine. Canal and foramina: Mild degenerative changes with endplate osteophytes and facet degenerative changes. No distinct high-grade canal or foraminal narrowing within the thoracic spine. For T12-L-1 findings refer to the concurrent CT lumbar spine. Tech Comments: GFR (mL/min/1/73m2) na Contrast: Isovue 300 Contrast amount in ml's: 15.00 Report Ordering Provider: , FINAL REPORT Dictated: 11/06/2024 10:24 am Noe Yousif MD Signed (Electronic Signature): 11/06/2024 10:24 am Signed by: Noe Yousif MD Transcribed by: MEDHAT Technologist: MARQUIS CT SPINE LUMBAR W/ CONTRAST Observed: 9:20 AM Status: F Source: [facility] Exam Date/Time: 11/06/2024 09:37 EDT Reason for Exam: M54.10 Report IMPRESSION: Multilevel degenerative changes lumbar spine, overall similar to slightly worsened compared to the CT from 2020. HISTORY: Back pain. Left leg pain. TECHNIQUE: Routine CT myelogram of the lumbar spine with intrathecal contrast, without intravenous contrast. Sagittal and coronal reconstructions. All CT scans at this facility use dose modulation, iterative reconstruction, and/or weight based dosing when appropriate to reduce radiation dose to as low as reasonably achievable. Unless otherwise stated, incidental findings identified in this report do not require routine follow-up imaging. COMPARISON: CT 11/09/2020. RESULT: Counting reference: Lumbosacral junction. For the purposes of this report, L5-S1 is the last well-formed disc space. Alignment: Mild levoscoliosis. Grade 1 retrolisthesis of T12 on L1 measuring around 4 mm, similar to prior. Grade 1 retrolisthesis of L5 on S1 measuring around 4 mm, similar to prior. Bone marrow /fracture: No destructive osseous lesions. No evidence for acute fracture. Severe disc height loss at L3-L4 with vacuum disc phenomenon and endplate sclerosis. Moderate to severe disc height loss at L5-S1 with vacuum disc phenomenon and areas of endplate sclerosis. Paraspinal soft tissues: Bilateral renal calculi, without hydronephrosis. Partially imaged aortobiiliac stent graft, not well assessed on this study without intravenous contrast. T12-L1: Retrolisthesis. Disc bulge. Endplate osteophytes. No significant canal or foraminal narrowing. L1-L2: Disc bulge. Endplate osteophytes. Facet degenerative changes. No significant canal or foraminal narrowing. L2-L3: Disc bulge. Endplate osteophytes. Facet degenerative changes. No significant canal or foraminal narrowing. L3-L4: Severe disc height loss with endplate sclerosis. Endplate osteophytes. Facet degenerative changes. Moderate to severe right foraminal narrowing, with mild canal narrowing and mild left foraminal narrowing. Report L4-L5: Disc height loss. Endplate osteophytes. Facet degenerative changes. Moderate bilateral foraminal narrowing with mild to moderate canal narrowing. L5-S1: Disc height loss. Retrolisthesis. Endplate osteophytes. Facet degenerative changes. Mild to moderate bilateral foraminal narrowing without definite canal narrowing. Sacrum and iliac wings: Degenerative changes SI joints. No acute findings. Other: Overall the degenerative changes are similar to slightly worsened from the prior CT from 2020.. Tech Comments: GFR (mL/min/1/73m2) na Contrast: Isovue 300 Contrast amount in ml's: 15.00 Ordering Provider: , FINAL REPORT Dictated: 11/06/2024 10:20 am Noe Yousif MD Signed (Electronic Signature): 11/06/2024 10:20 am Signed by: Noe Yousif MD Transcribed by: MEDHAT Technologist: MARQUIS MAIN OR PACU II RECORD Observed: 025 9:00 AM Status: F Source: [facility] Main OR PACU II Record PACU Phase II Document Type FT Summary Primary Physician: RODNEY, XXXX Finalized Date/Time: 11/06/24 15:30:06 Pt. Name: DENVER PERDUE/Sex: 1960 Male Med Rec #: [id number] Physician: DAYAN MARTINEZ MD Financial #: [id number] Pt. Type: O Room/Bed: / Admit/Disch: 11/06/24 07:15:15 - Institution: Case Times PACU II FT Pre-Care Text: Identifies barriers to communication and implements measures to provide psychological support and determines knowledge level Develops individualized plan of care, and ensures continuity of care Maintains patient's dignity and privacy, and maintains patient confidentiality Identifies and reports philosophical, cultural, and spiritual beliefs and values Identifies individual values and wishes concerning care administers prescribed antibiotic therapy and immunizing agents as ordered, Evaluates postoperative tissue perfusion Implements thermoregulation measures, and monitors body temperature Evaluates postoperative respiratory status Evaluates postoperative cardiac status Evaluates postoperative neurological status Assesses pain control, collaborated in initiating patient-controlled analgesia and implements alternative methods of pain control Verifies allergies, administers prescribed medications and solutions, evaluates response to medications Entry 1 In PACU II 11/06/24 09:30:00 Discharge from PACU 11/06/24 13:35:00 II Outcomes Met? Yes Last Modified By: Shirley Martínez RN 11/06/24 15:30:04 Post-Care Text: The patient demonstrates knowledge of the expected response to the operative or invasive procedure The patient's care is consistent with the individualized perioperative plan of care The patient's right to privacy is maintained The patient's value system, lifestyle, ethnicity, and culture are considered, respected, and incorporated into the perioperative plan of care The patient participates in decisions affecting his or her perioperative plan of care. The patient is free from signs and symptoms of infection The patient has wound/tissue perfusion consistent with or improved from baseline levels established preoperatively The patient is at or returning to normothermia at the conclusion of the immediate postoperative period The patient's respiratory function is consistent with or improved from baseline levels established preoperatively The patient's cardiovascular status is consistent with or improved from baseline levels established preoperatively The patient's neurological status is consistent with or improved from baseline levels established preoperatively The patient demonstrates and/or reports adequate pain control throughout the perioperative period The patient received appropriate medication(s), safely administered during the perioperative period Finalized By: Shirley Martínez RN Document Signatures Signed By: Shirley Martínez RN 11/06/24 15:30 MAIN OR PREOPERATIVE RECORD Observed: 9:00 AM Status: F Source: [facility] Main OR Preoperative Record Holding Area Document Type FT Summary Primary Physician: NONE, XXXX Finalized Date/Time: 11/06/24 07:55:57 Pt. Name: DENVER PERDUE/Sex: 1960 Male Med Rec #: [id number] Physician: DAYAN MARTINEZ MD Financial #: [id number] Pt. Type: O Room/Bed: / Admit/Disch: 11/06/24 07:15:15 - Institution: Case Times Holding FT Pre-Care Text: Verifies consent for planned procedure, identifies individual values and wishes concerning care, includes family members in perioperative teaching Secures patient's records' belongings, and valuables, maintains patient's dignity and privacy, and maintains patient confidentiality Entry 1 In Holding 11/06/24 08:00:00 Last Modified By: Sangita Castro RN 11/06/24 07:52:13 Post-Care Text: The patient participates in decisions affecting his or her perioperative plan of care The patient's right to privacy is maintained Surgery Checklist FT Entry 1 Patient Birthday, ID Band Procedure With Patient Identification: Check, Patient Verification: Participation NPO after Midnight: n/a Personal Items: Glasses, Jewelry Personal Items necklace Limitations: none Comment: Complaints of Pain: Yes Pain Comment: 10/29 Does Patient Smoke Yes If Yes to Smoking. 2-3 Cigars or Cigarettes. How much per day? Patient states Yes Comment - Adult Tyrell () postop adult Supervision supervision available Case Cancelled in No Holding Area see comments below for reason Last Modified By: Sangita Castro RN 11/06/24 07:55:50 Finalized By: Sangita Castro RN Document Signatures Signed By: Sangita Castro RN 11/06/24 07:55 XR MYELOGRAM 2 OR MORE REGIONS Observed: 11/06/2024 8:50 AM Status: F Source: [facility] Exam Date/Time: 11/06/2024 09:35 EDT Reason for Exam: M54.10 Report IMPRESSION: Technically successful myelogram.\X09\ Refer to the separately dictated CT myelogram reports for further results. PROCEDURE: XR Myelogram 2 or More Regions HISTORY: Back pain. Consent: The risks, benefits, treatment options, potential complications, equipment, and personnel to be involved were discussed with the patient. All questions were answered and consent was obtained. The patient indicated willingness to proceed. General: The lower back was sterile prepped and draped. Time Out: A time out was performed immediately prior to procedure start with the team. Anesthesia Type: administration of local anesthesia. Local Anesthesia: 1% Lidocaine TECHNIQUE/RESULT: Access Site: 22 gauge spinal needle from a left paramedian approach at the L2-L3 level. Counting reference: Lumbosacral junction. For the purposes of this report, L4-5 is considered the level nearest the iliac crest. Procedure Details: Using sterile procedure, local anesthesia was introduced to the skin and subcutaneous tissues as outlined above. Diagnostic Myelo Details: Under fluoroscopic guidance, the needle was carefully advanced into the lumbar subarachnoid space resulting in free flow of CSF. 15 ml of Isovue-300 M Intrathecal contrast was administered. CSF Color: Clear Diagnostic Myelogram Results: Myelogram Type: Thoracic and Lumbar Primary Site Results: Free flow of contrast into the thecal sac Estimated Blood Loss: 0 mls Type of Removed Specimens: None Number of Specimens: None Fluoroscopic Radiation Summary: Report All CT scans at this facility use dose modulation, iterative reconstruction, and/or weight based dosing when appropriate to reduce radiation dose to as low as reasonably achievable. Post-Procedure: \X09\Conclusion: The patient was transferred to the Radiology Recovery Room in stable condition and will be observed for approximately 4 hours. Immediate Complications: None Tech Comments: Contrast: Isovue 300 M Contrast amount in ml's: 15.00 Ka,r in mGy = 14.30 DAP = 314.45 Ordering Provider: , FINAL REPORT Dictated: 11/06/2024 10:30 am Noe Yousif MD Signed (Electronic Signature): 11/06/2024 10:30 am Signed by: Noe Yousif MD Transcribed by: MEDHAT Technologist: SAL PT & PTT Collected: 8:00 AM Status: F Source: [facility] Order Comment: ONLY if patie nt has been on blood thinners and has not had labs in past week. TYPE CODE TESTS RESULT OUT OF RANGE REFERENCE UNITS LAB 96575072(INC ) PT 12.6 High 9.4-12.5 second(s) Result Comment: 15 days - 4 weeks 1 - 5 months 6 -11 months 1 ??? 5 years 6 ??? 10 years 11 -17 years Mean: 11.2 (9.5 ??? 12.6) Mean: 11.0 (9.7 ??? 12.8) Mean: 11.0 (9.8 ??? 13.0) Mean: 11.3 (9.9 ??? 13.4) Mean: 11.7 (10.0 ??? 14.6) Mean: 11.8 (10.0 - 14.1) Pediatric Reference ranges were obtained from a study by Willy Paige et al. prepared from 1437 samples obtained at 7 different centers using the same coagulation reagent and instrumentation as [facility]. Currently there are no coagulation studies available worldwide for children to 14 days, and no normal ranges. LAB [id number](LOINC ) PTT 28.9 Normal 25.1-36.5 second(s) Result Comment: Parameter 15 days - 4 weeks 1 - 5 months 6 - 11 months 1 - 5 years 6 - 10 years 11 - 17 years PTT Mean: 35.4 (27.6-45.6) Mean: 33.5 (24.8-40.7) Mean: 32.4 (25.1-40.7) Mean: 31.6 (24.0-39.2) Mean: 31.6 (26.9-38.7) Mean: 31.0 (24.6-38.4) Pediatric Reference ranges were obtained from a study by Willy Paige et al. prepared from 1437 samples obtained at 7 different centers using the same coagulation reagent and instrumentation as [facility]. Currently there are no coagulation studies available worldwide for children to 14 days, and no normal ranges. Heparin therapeutic range (represented by Anti-Factor Xa activity of 0.2 - 0.4 U/mL) corresponds to PTT of 56.6 - 109.0 sec. LAB [id number](LOINC ) INR 1.12 Unknown Result Comment: INR results are specifically intended to assess patients stabilized on long-term Anticoagulation therapy suggested INR???s ???Less Intensive Anticoagulation??? 2.0 ??? 3.0 Conventional Range 3.0 ??? 4.5 Performed By: #### [id number] #### [facility] [address] [place] [address] PROGRESS Observed: 10/21/2024 2:30 PM Status: COMPLETED Source: [facility] Neurosurgery Consult Chief Complaint: Left low back and leg pain. History of Present Illness: Denver Perdue is a 64 y.o. male who presents in kind referral from pain management in [facility] for evaluation of left low back and leg pain. She reports that pain has been present for least 7 years. He denies any clear inciting event. It has worsened over time. He notes that pain is centered in the left low back. It radiates down the lateral aspect of the left leg, down the lateral aspect of the left calf, and into the bottom of the left foot. Pain had radiated into the bilateral legs until about 6 months ago, when the right leg pain improved. He notes numbness involving the bilateral soles of the feet as well as numbness in the same distribution of the pain in the left leg. He feels that his left leg is weaker than the right. He has undergone multiple nonsurgical therapies including injections, physical therapy, gabapentin, and baclofen. He has not undergone MRI imaging due to shrapnel in the left shoulder and neck. He did last undergo CT imaging of the lumbar spine in 2022. He underwent an EMG of the lower extremities by Dr. Phillips in the [place] which stated evidence of a chronic left L5 radiculopathy without active denervation. He is referred to discuss potential surgical treatments including potential treatment with spinal cord stimulation. Problem List: Patient Active Problem List Diagnosis Actinic keratoses Acute diverticulitis SANDEEP (acute kidney injury) AAA (abdominal aortic aneurysm) without rupture Aneurysm of infrarenal abdominal aorta Anticoagulated Impaired mobility and activities of daily living Atheroscler of [place] artery of both legs with intermit claudication Intermittent claudication of left lower extremity due to atherosclerosis Back pain, lumbosacral Chest pain Benign essential HTN Primary hypertension BMI 27.0-27.9,adult Chronic midline low back pain with bilateral sciatica Colonic diverticular abscess Constipation Diverticulitis of sigmoid colon Dry skin dermatitis Atherosclerosis of [place] arteries of extremities with intermittent claudication, left leg Edema of left lower leg due to peripheral venous insufficiency GERD (gastroesophageal reflux disease) Hemorrhagic shock (CMS/HCC) Herniated lumbar intervertebral disc History of colonic polyps History of diverticular abscess of colon History of reversal of ileostomy Hypocalcemia Hypokalemia Ileostomy in place (CMS/HCC) Kidney stones Labile blood pressure Ileostomy dysfunction (CMS/HCC) Lumbar degenerative disc disease Lumbar radiculopathy Spondylosis of lumbar spine Mixed hyperlipidemia Multiple joint pain Multiple lipomas Nicotine dependence Candidiasis Oral candidiasis Overweight PAD (peripheral artery disease) Peripheral vascular disease Perforation and abscess of large intestine concurrent with and due to diverticulitis Post-op pain Restless leg syndrome Rheumatoid arthritis (CMS/HCC) S/P colon resection S/P splenectomy Status post splenectomy Sacroiliitis Sciatica Shock (CMS/HCC) Smoker Thrombosis of arteries of lower extremity (CMS/HCC) 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 No pertinent past medical history. Past Surgical History: Past Surgical History: Procedure Laterality Date AORTIC VALVE SURGERY COLOSTOMY COLOSTOMY CLOSURE HERNIA REPAIR LIPOMA RESECTION SPLENECTOMY, TOTAL Medications: Current Outpatient Medications: atorvastatin (Lipitor) 20 mg tablet, Take 20 mg by mouth in the morning., Disp: , Rfl: baclofen (Lioresal) 10 mg tablet, TAKE 1 TABLET BY MOUTH THREE TIMES DAILY NEEDED for MUSCLE pain, Disp: , Rfl: buPROPion SR (Wellbutrin SR) 150 mg 12 hr tablet, Take 150 mg by mouth in the morning and at bedtime., Disp: , Rfl: cholecalciferol (Vitamin D-3) 50 MCG (1999 UT) tablet, Take 2,000 Units by mouth., Disp: , Rfl: cilostazol (Pletal) 100 mg tablet, Take 100 mg by mouth two times daily., Disp: , Rfl: clopidogrel (Plavix) 75 mg tablet, Take 75 mg by mouth in the morning., Disp: , Rfl: gabapentin (Neurontin) 600 mg tablet, Take 1 tablet by mouth in the morning, afternoon, and at bedtime., Disp: , Rfl: metoprolol succinate XL (Toprol-XL) 25 mg 24 hr tablet, Take 25 mg by mouth in the morning., Disp: , Rfl: nicotine (Nicoderm CQ) 14 mg/24 hr patch, Place 1 patch on the skin., Disp: , Rfl: pantoprazole (ProtoNix) 40 mg EC tablet, Take 40 mg by mouth in the morning., Disp: , Rfl: rOPINIRole (Requip) 2 mg tablet, Take 2 mg by mouth in the morning and at bedtime., Disp: , Rfl: Allergies: Not on File Social History: Social History Socioeconomic History Marital status: Spouse name: Not on file Number of children: Not on file Years of education: Not on file Highest education level: Not on file Occupational History Not on file Tobacco Use Smoking status: Some Days Types: Cigarettes Smokeless tobacco: Never Substance and Sexual Activity Alcohol use: Never Drug use: Never Sexual activity: Not on file Other Topics Concern Not on file Social History Narrative Not on file Social Determinants of Health Financial Resource Strain: Not on file Food Insecurity: No Food Insecurity (04/20/2024) Received from [email or web address] Hunger Vital Sign Worried About Running Out of Food in the Last Year: Never true Ran Out of Food in the Last Year: Never true Transportation Needs: No Transportation Needs (04/20/2024) Received from [email or web address] PRAPARE - Transportation Lack of Transportation (Medical): No Lack of Transportation (Non-Medical): No Physical Activity: Not on file Stress: Not on file Social Connections: Not on file Intimate Partner Violence: Unknown (10/21/2024) Humiliation, Afraid, Rape, and Kick questionnaire Fear of Current or Ex-Partner: Patient unable to answer Emotionally Abused: Not on file Physically Abused: Not on file Sexually Abused: Not on file Housing Stability: Low Risk (04/20/2024) Received from [email or web address] Housing Stability Vital Sign Unable to Pay for Housing in the Last Year: No Number of Times Moved in the Last Year: 1 Homeless in the Last Year: No Family History: No family history on file. Review of Systems: Review of Systems Musculoskeletal: Positive for back pain. Neurological: Positive for weakness. Exam: Vitals: Vitals: 10/21/24 1427 BP: 118/67 Pulse: 82 Temp: 37.3 ???C (99.1 ???F) Body mass index is 25.83 kg/m???. I/O: @IOBRIEF@ General: Awake, alert, NAD. Well groomed. HEENT: Normocephalic, atraumatic. Neck supple without lymphadenopathy. Heart: Regular rate and rhythm. Lungs: Clear to auscultation bilaterally. Abdomen: Soft, non-tender, non-distended. Bowel sounds present. Extremities: No cyanosis or edema. No noted deformities. Neurologic: Appropriate affect during exam. Oriented x 3. Normal fluency and prosody of speech. Content appropriate and higher function appears intact. CN II-XII grossly intact. PERRL. EOMI. Face symmetric strength and sensation. Tongue midline. Shoulder shrug full strength and symmetric. Palate elevates symmetrically. Motor 5/5 throughout bilateral upper extremities, 4+ of 5 throughout bilateral lower extremities, pain limited. No pronator drift. Sensation intact to light touch throughout. DTR's 1+ and symmetric. Gait antalgic with some sparing of the left leg. Able to toe and heel walk. FTN intact. No ankle clonus. Lab: No visits with results within 1 Day(s) from this visit. Latest known visit with results is: No results found for any previous visit. Imaging: CT lumbar spine wo IV contrast Order: [id number] Impression Lumbar spondylosis at L3-4 through L5-S1. This is highlighted by severe right neural foraminal narrowing at L3-4, contacting the nerve root Narrative EXAMINATION: CT OF THE LUMBAR SPINE WITHOUT [...] disc phenomenon. There is moderate left and [id number] right neural foraminal narrowing. SOFT TISSUES/RETROPERITONEUM: Aorta bi-iliac stenting. Sigmoid diverticula without inflammation. Nonobstructive right renal stone. Exam End: 02/02/23 09:10 Specimen Collected: 02/02/23 13:38 Last Resulted: 02/02/23 13:45 Received From: [facility] Result Received: 09/13/24 11:05 Impression: Denver Perdue is a 64 y.o. male with a longstanding history of left low back and left leg pain. His leg symptoms are suspicious for an L5 radiculopathy and this is supported by the EMG findings. CT imaging demonstrates multilevel degenerative changes but is not adequate to define soft tissues or planned surgery. Today, the patient and I discussed the findings. I recommended obtaining additional structural imaging with a CT myelogram in the interest of identifying any culprit lesions amenable to surgical therapy. If there is no clear target for surgical intervention, he may be an appropriate candidate for a trial of neuromodulation with spinal cord stimulation. Recommendations: 1. We will obtain a CT myelogram of thoracic and lumbar spine for evaluation of left lower extremity radiculopathy. 2. We will plan for follow-up in neurosurgery clinic after the imaging is complete. A voice recognition system was used to compose this note. While attempts have been made to review dictation as it is transcribed, on occasion spoken words may be misinterpreted by the technology leading to omissions and inappropriate words or phrases. CONSULT Observed: 10/21/2024 2:30 PM Status: COMPLETED Source: [facility] [id number] Denver Perdue 89 M Date Provider Department Center 10/21/2024 [facility] SURG [address] Fl No family history on file Level of Service:[id number] [place] OFFICE/OUTPATIENT NEW MODERATE MDM 45 MINUTES Reason for Visit and Comments: Consult [484] XR ABDOMEN (KUB) (SINGLE AP VIEW) Observed: 09/21/2024 8:12 AM Status: F Source: [facility] EXAM: XR ABDOMEN (KUB) (SING LE AP VIEW) HISTORY: Kidney stones, , , [...] gas pattern. 3. Large amount of stool. Interpreted by: Luis Luke DO Signed by: Luis Luke DO 09/21/24 Final result POPULATION HEALTH Observed: 07/31/2024 11:17 AM Status: F Source: [facility] Population Health Case Information Case Priority: None Programs: -- Referral Source: Emergency Planning And Response Manager Referral Reason: Care coordination Case Type: Transition Care Management Risk Score: -- Case Status: Enrolled (July 05, 2024) Date Assigned: July 04, 2024 Assigned By: Alla Osuna R.N. Date Enrolled: July 05, 2024 Assigned Primary Personnel: Alla Osuna R.N. Assigned Secondary Personnel: -- Case Physician: Curt AQUINO, CONCRETE VIBRATOR OPERATOR-POLYMER MATERIALS CONSULTANT, Beth Dash Problems Ongoing AAA (abdominal aortic aneurysm) Actinic keratoses SANDEEP (acute kidney injury) Anticoagulated Benign essential HTN BMI 27.0-27.9,adult Cigarette nicotine dependence Combined hyperlipidemia Constipation Diverticulitis of colon Embolism of iliac artery GERD (gastroesophageal reflux disease) History of diverticular abscess of colon History of reversal of ileostomy Hypocalcemia Intermittent claudication of left lower extremity due to atherosclerosis Kidney stone on left side Lumbar radiculopathy Multiple lipomas Overweight PAD (peripheral artery disease) Pain in joint, multiple sites Restless leg syndrome S/P colon resection S/P splenectomy Sacroiliitis Sciatica Historical Smoker Procedure/Surgical History Injection of facet joint using fluoroscopic guidance [...] left flank area, transforaminal epidural steroid injection. Home Medications atorvastatin 20 mg Tab, 20 mg= 1 tab(s), Oral, Daily, 3 refills baclofen 10 mg Tab, 10 mg= 1 tab(s), Oral, TID, PRN baclofen 10 mg tablet, 0 buPROPion 150 mg ER Tab, 150 mg= 1 tab(s), Oral, BID, 11 refills cilostazol 100 mg Tab, See Instructions, 3 refills gabapentin 800 mg Tab, 800 mg= 1 tab(s), Oral, TID Metoprolol succinate 25 mg ER Tablet Plavix 75 mg Tab, 75 mg= 1 tab(s), Oral, Daily Protonix 40 mg Tab-DR, 40 mg= 1 tab(s), Oral, Daily, 3 refills ropinirole 2 mg Tab, 2 mg= 1 tab(s), Oral, BID, 4 refills Allergies No Known Allergies No Known Medication Allergies Social History Alcohol - Denies Alcohol Use, 04/27/2022 Past, Beer, 08/06/2020 Employment/School Employed, 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 Never Smokeless Tobacco Use:. Cigarettes, 1 per day. 47 year(s). Started age 11.0 Years. Previous treatment: None. Ready to change: No. Yes, 07/30/2024 10 or more cigarettes (1/2 pack or more)/day in last 30 days Tobacco Use:., 06/04/2024 10 or more cigarettes (1/2 pack or more)/day in last 30 days Tobacco Use:., 02/10/2023 Family History Alcoholism: Father. Arthritis: Mother. Cancer: Mother and Father. Screenings and Assessments 07/04/24 06:56:00 Result Name Value Comment Phone Call Monitoring Consent Agreed to continue call Phone Verification Patient Information Full name, street address and date of verified CM Program Enrollment Provides verbal consent for enrollment Goals and Interventions Care Plan Progress Note tcm #4 final Patient states I'm ok. . Reports Bowel movement are becoming more normal. . Denies any abdominal pain or bloating. Denies any drainage from area and states it looks like it is healed. Denies CP, SOB, or fever. Denies trouble eating, drinking, swallowing. Patient ended call at this time d/t an incoming call Patient notified this was last tcm, but can contact the office if has further concerns. Communication Events Date: July 31, 2024 Method: Phone call Type: Outbound Duration (min): 2 Outcome: Case discussion Contact Type: Patient Contact Name: DENVER PERDUE Notes: tcm #4 final see ft summary note Created By: Alla Osuna R.N. Date: July 23, 2024 Method: Phone call Type: Outbound Duration (min): 6 Outcome: Case discussion Contact Type: Patient Contact Name: DENVER PERDUE Notes: tcm #3 se ft summary note Created By: Alla Osuna R.N. Date: July 11, 2024 Method: Phone call Type: Outbound Duration (min): 12 Outcome: Case discussion Contact Type: Patient Contact Name: DENVER PERDUE Notes: tcm #2 see ft summary note Created By: Alla Osuna R.N. Date: July 04, 2024 Method: Phone call Type: Outbound Duration (min): 1 Outcome: Case discussion Contact Type: Patient Contact Name: DENVER PERDUE Notes: tcm #1 see ft sumary note Created By: Alla Osuna R.N. Date: July 04, 2024 Method: Phone call Type: Outbound Duration (min): 16 Outcome: Case discussion Contact Type: Patient Contact Name: DENVER PERDUE Notes: tcm #1 see ft summary note Created By: Alla Osuna R.N. Date: July 04, 2024 Method: Phone call Type: Outbound Duration (min): 1 Outcome: Case discussion Contact Type: Patient Contact Name: DENVER PERDUE Notes: tcm #1 see ft summary note Created By: Alla Osuna R.N. Date: July 04, 2024 Method: Phone call Type: Outbound Duration (min): 5 Outcome: Case discussion Contact Type: Patient Contact Name: DENVER PERDUE Notes: tcm#1 see ft summary note Created By: Alla Osuna R.N. FAMILY MEDICINE OFFICE/CLINI C NOTE Observed: 07/30/2024 10:07 AM Status: F Source: [facility] Family Medicine Office/Clini c Note Chief Complaint The patient presents for follow-up regarding restless legs syndrome and management of medications post-ileostomy reversal. HPI Staff C/O: restless leg Onset: chronic Location: derrek legs Symptoms: spasms takes Ropinirole and will take earlier in the evening but then his spasms will start up earlier in the AM , having more spasms during the day Patient is here for follow up on hypertension. HLD How often are you checking your blood [...] Light Headedness? no History of Present Illness 63 Years old Male here for 6 month CC HPI staff / Chief Complaint confirmed with the patient Screening: Colon Cancer screenin03/23/2024 with a year f/u recommended; this patient does _ have family history of colon cancer: found a blockage, had a colon resection 04/10/2024 Labs: 08/01/2023 for office, 04/2024 hospital PSA: 1.1 on 02/2022 ; this patient does _ have a family history of prostate cancer Smokers/ former smokers: Low dose lung CT: _ List of Providers: Pain clinic: Dr Andrade Cardiovascular surgeon: Dr Yan Material Scheduler: Dr Izaguirre Registration Manager: [facility] Cr/eGFR: eGFR: 95 mL/min/1.73 m2 (08/01/23 [...] 18 mg/dL (08/01/23 08:56:00) The patient is presenting with recent management adjustments for restless legs syndrome (RLS) and routine follow-up after ileostomy reversal. Following the ileostomy reversal performed last month, the patient reports experiencing bowel irritation and urgency, although without significant bowel movement. The patient has been applying Neosporin to the surgical site for irritation, noting it appears to provide some relief. As per his last surgical consultation, further visits are unnecessary unless preparing for a future colonoscopy five years henceforth. In parallel, the patient's RLS has progressed to daytime occurrences. Previously manifesting primarily nocturnally, this change prompted a new medication regimen trial involving twice-daily dosing, with plans to assess symptom improvement over six weeks and potential dosage increase to three times daily. The patient additionally references resolving dry rash-like symptoms related to the ostomy supplies, speculating previous interventions for a similar condition due to significant scarring. Does not typically check his blood pressures at home, but denies any chest pain, palpitations, or swelling in the legs. Continues takes all of his medications as prescribed. Does continue to smoke but states he has cut back. Review of Systems PHQ Score Initial Depression Screen Score: 0 SCORE - Neurologic: Reports episodes of restless legs during the day. - Dermatologic: Reports rash-like itchiness and irritation; denies dryness or severe itching currently. - Cardiovascular: Denies chest pain or palpitations. - Vascular: Denies swelling in the legs. Physical Exam Vitals & Measurements T: 36.4 ???C(Temporal Artery) HR: 64(Peripheral) RR: 18 BP: 146/84 SpO2: 97% HT: 69 in HT: 176 cm WT: 84.5 kg WT: 186.29 lb BMI: 27.28 Constitutional: Well-groomed, well-nourished, no signs of acute [...] rashes or lesions noted to the exposed skin, incisions to abdomen well-healed. Psychiatric: Alert and oriented x 3, pleasant, no mood changes. Assessment/Plan 1. Benign essential HTN (I10: Essential (primary) hypertension) The importance of the following were all reviewed with the patient: -Take medications as prescribed. There are simple Lifestyle Modifications that you can do to reduce your blood pressure. -Weight Reduction -Follow the DASH eating plan. -Reduce Sodium (Salt) Intake to 2000mg per day. -Use Moderation when consuming alcohol. - To improve your health we recommend increasing your level of moderate exercise to at least 2.5 hrs per week. Continue medications as prescribed, encouraged to monitor blood pressures at home notify the office if there is any elevation. Will have him follow-up in 4 months and we will do his annual blood work at that time. 2. Combined hyperlipidemia (E78.2: Mixed hyperlipidemia) The importance of the following were all reviewed with the patient: -Take medications as prescribed. - Recommended following the TLC Lipid Diet which is a low fat/low cholesterol diet for high cholesterol. - More information about this eating plan can be found here: http://tlcdiet.org - To improve your health we recommend increasing your level of moderate exercise to at least 2.5 hrs per week. 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 Does not seem like he will be following up with him so we will do a complete blood work in 4 months. 3. Restless leg syndrome (G25.81: Restless legs syndrome) Management includes addressing the progression of symptoms through a revised medication schedule. Will go ahead and increase the Requip to be every 12 hours, again follow-up with me in 4 months. The patient should monitor symptoms under this regimen and follow up to consider further adjustments as needed. 4. History of reversal of ileostomy (Z98.890: Other specified postprocedural states) The patient is advised to continue using topical applications for mild irritation relief. Routine postoperative follow-ups with the surgeon are deferred pending future need or scheduled colonoscopy preparation. 5. Cigarette nicotine dependence (F17.210: Nicotine dependence, cigarettes, uncomplicated) Strongly recommend patient to quit tobacco use. Cigarette smoking harms nearly every organ of the body, causes many diseases, and reduces the health of smokers in general. Quitting smoking lowers risk for smoking-related diseases and increases life expectancy. Encouraged patient to visit helpful online resources and/or free telephone support such as [facility]. Prescription medication to help smoking cessation available on request. 6. Overweight (E66.3: Overweight) Calorie restriction along with routine aerobic exercises discussed in order to avoid hypertension, osteoarthritis, metabolic syndrome and/or worsening of chronic underlying disease states. Encouraged to limit sugary drinks, foods high in sodium, as well as alcohol. 7. BMI 27.0-27.9,adult (Z68.27: Body mass index [BMI] 27.0-27.9, adult) see #7 Orders: cilostazol, See Instructions, Take one tablet twice a day, # 90 EA, Refills(s) 3, Pharmacy: [facility], 176, cm, 07/30/24 8:06:00 EDT, Height/Length Dosing, 84.5, kg, 07/30/24 8:06:00 EDT, Weight Dosing gabapentin, 600 mg = 1 tab(s), Oral, TID, # 270 tab(s), Refills(s) 0, Pharmacy: [facility], 176, cm, 09/07/23 15:47:00 EDT, Height/Length Dosing, 82, kg, 09/07/23 15:47:00 EDT, Weight Dosing ropinirole, 2 mg = 1 tab(s), Oral, BID, # 180 tab(s), Refills(s) 4, other reason (Rx) This note was created by the assist of a speech-recognition program although the intention is to generate a document that actually reflects the content of the visit, no guarantees can be provided that every mistake has been identified and corrected by editing. Follow-up With When Contact Information Curt AQUINO, CONCRETE VIBRATOR OPERATOR-POLYMER MATERIALS CONSULTANT, Beth Dash In [address] [place] [phone] Additional Instructions: chronic care Patient Education Hypertension, Adult High Cholesterol Health Risks of Smoking Problem List/Past Medical History Ongoing AAA (abdominal aortic aneurysm) Actinic keratoses SANDEEP (acute kidney injury) Anticoagulated Benign essential HTN BMI 27.0-27.9,adult Cigarette nicotine dependence Combined hyperlipidemia Constipation Diverticulitis of colon Embolism of iliac artery GERD (gastroesophageal reflux disease) History of diverticular abscess of colon History of reversal of ileostomy Hypocalcemia Intermittent claudication of left lower extremity due to atherosclerosis Kidney stone on left side Lumbar radiculopathy Multiple lipomas Overweight PAD (peripheral artery disease) Pain in joint, multiple sites Restless leg syndrome S/P colon resection S/P splenectomy Sacroiliitis Sciatica Historical Smoker Procedure/Surgical History Injection of facet joint using fluoroscopic guidance [...] left flank area, transforaminal epidural steroid injection. Medications atorvastatin 20 mg Tab, 20 mg= 1 tab(s), Oral, Daily, 3 refills baclofen 10 mg Tab, 10 mg= 1 tab(s), Oral, TID, PRN baclofen 10 mg tablet, 0 buPROPion 150 mg ER Tab, 150 mg= 1 tab(s), Oral, BID, 11 refills cilostazol 100 mg Tab, See Instructions, 3 refills gabapentin 800 mg Tab, 800 mg= 1 tab(s), Oral, TID Metoprolol succinate 25 mg ER Tablet Plavix 75 mg Tab, 75 mg= 1 tab(s), Oral, Daily Protonix 40 mg Tab-DR, 40 mg= 1 tab(s), Oral, Daily, 3 refills ropinirole 2 mg Tab, 2 mg= 1 tab(s), Oral, BID, 4 refills Allergies No Known Allergies No Known Medication Allergies Social History Alcohol - Denies Alcohol Use, 04/27/2022 Past, Beer, 08/06/2020 Employment/School Employed, 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 Never Smokeless Tobacco Use:. Cigarettes, 1 per day. 47 year(s). Started age 10.0 Years. Previous treatment: None. Ready to change: No. Yes, 07/30/2024 10 or more cigarettes (1/2 pack or more)/day in last 30 days Tobacco Use:., 06/04/2024 10 or more cigarettes (1/2 pack or more)/day in last 30 days Tobacco Use:., 02/10/2023 Family History Alcoholism: Father. Arthritis: Mother. Cancer: Mother and Father. Immunizations Vaccine Date Status Comments influenza virus vaccine, inactivated - Not Given Postpone due to refusal influenza virus vaccine, inactivated - Not Given Patient Refuses diphtheria/pertussis, acel/tetanus adult 08/21/2021 Given SARS-CoV-2 (COVID-19) mRNA BNT-162b2 vax 09/04/2020 Given Prophylaxis SARS-CoV-2 (COVID-19) mRNA BNT-162b2 vax 08/07/2020 Given Prophylaxis influenza virus vaccine, inactivated - Not Given Patient Refuses influenza virus vaccine, inactivated 04/11/2019 Given diphtheria/pertussis, acel/tetanus adult 03/24/2017 Given Result Comment: Electronical ly Signed By: Curt AQUINO, Beth HARLEY\.br\Date and Time Signed: 07/30/24 10:08 EDT AMBULATORY VISIT SUMMARY Observed: 07/30 8:33 AM Status: F Source: [facility] Ambulatory Visit Summary SHANNANDENVER May Heavenly :1960 Visit Date:07/30/2024 Ambulatory Visit Instructions Your Diagnosis Benign essential HTN Combined hyperlipidemia Restless leg syndrome History of reversal of ileostomy Cigarette nicotine dependence Overweight BMI 27.0-27.9,adult Your Care Team Attending Physician - CRICKET Anders Tammy L. Primary Care Physician - CRICKET Anders Tammy L. This Is Your Medications List cilostazol (cilostazol 100 mg Tab) ropinirole (ropinirole 2 mg Tab) Contact prescribing physician if questions or concerns Misc Prescription (baclofen 10 mg tablet) atorvastatin (atorvastatin 20 mg Tab) baclofen (baclofen 10 mg Tab) buPROPion (buPROPion 150 mg ER Tab) clopidogrel (Plavix 75 mg Tab) gabapentin (gabapentin 800 mg Tab) metoprolol (Metoprolol succinate 25 mg ER Tablet) pantoprazole (Protonix 40 mg Tab-DR) [Image Removed: STOP]Stop taking these medications Misc Prescription (brava protective seal - # 42538) Misc Prescription (xproconvex light -#[id number]) Misc Prescription (xproconvex light -#[id number]) tamsulosin (tamsulosin 0.4 mg Cap) Procedures Performed Injection of facet joint using [...] steroid injection. Discharge Vitals Temperature (Temporal Artery) 36.4 ???C Heart Rate (Peripheral) 64 Respiratory Rate 18 Blood Pressure 146/84 Height 176 cm Height 69 in Weight 84.5 kg Weight 186.29 lb BMI 27.28 What to do next Scheduled Follow-Up Appointments Monday 8:20 AM EDT With: Curt AQUINO, Beth HARLEY Where: [facility] [address] [place] [address]- You Need to Schedule the Following Appointments Follow Up with Curt AQUINO, Beth HARLEY When: In 4 months Comments: chronic care Where: [address] [place] [phone] Medications What How Much When Instructions Changed ropinirole (ropinirole 2 mg Tab) 1 Tablets By Mouth 2 times a day Unchanged cilostazol (cilostazol 100 mg Tab) See instructions Take one tablet twice a day Pickup at [facility] Unchanged atorvastatin (atorvastatin 20 mg Tab) 1 [...] if questions or concerns Unchanged gabapentin (gabapentin 800 mg Tab) 1 Tablets By Mouth 3 times a day Contact prescribing physician if questions or concerns Unchanged metoprolol (Metoprolol succinate 25 mg ER Tablet) Contact prescribing physician if questions or concerns Unchanged Misc Prescription (baclofen 10 mg tablet) 0 Contact prescribing physician if questions or concerns Unchanged pantoprazole (Protonix 40 mg Tab-DR) 1 Tablets By Mouth Every day Contact prescribing physician if questions or concerns Pharmacy Information [facility]: [address] [place] [id number] [phone] What How Much When Why Comments Stop Taking Misc Prescription (brava protective seal - # 77418) See instructions Colostomy present use with colostomy, change daily Stop Taking Misc Prescription (xproconvex light -#[id number]) See instructions Colostomy present change colostomy bag daily. Stop Taking Misc Prescription (xproconvex light -#[id number]) See instructions Colostomy present change colostomy bag daily. Stop Taking tamsulosin (tamsulosin 0.4 mg Cap) 1 Capsules Allergies No Known Allergies No Known Medication Allergies Problems Ongoing - Any problem that you are currently receiving treatment for. AAA (abdominal aortic aneurysm) Actinic keratoses SANDEEP (acute kidney injury) Anticoagulated Benign essential HTN BMI 27.0-27.9,adult Cigarette nicotine dependence Combined hyperlipidemia Constipation Diverticulitis of colon Embolism of iliac artery GERD (gastroesophageal reflux disease) History of diverticular abscess of colon History of reversal of ileostomy Hypocalcemia Intermittent claudication of left lower extremity due to atherosclerosis Kidney stone on left side Lumbar radiculopathy Multiple lipomas Overweight PAD (peripheral artery disease) Pain in joint, multiple sites Restless leg syndrome S/P colon resection S/P splenectomy Sacroiliitis Sciatica Historical - Any problem that you are no longer receiving treatment for. Smoker Patient Survey You may receive a survey via text or e-mail asking about your office visit. Please share your experience with us by completing your survey. We appreciate your feedback and thank you for choosing us for your care. Education Materials Hypertension, Adult High blood pressure (hypertension) is [...] risk factors are under your control, including: ??? Smoking. ??? Not getting enough exercise or physical activity. ??? Being overweight. ??? Having too much fat, sugar, calories, or salt (sodium) in your diet. ??? Drinking too much alcohol. Other risk factors include: ??? Having a personal history of heart disease, diabetes, high cholesterol, or kidney disease. ??? Stress. ??? Having a family history of high blood pressure and high cholesterol. ??? Having obstructive sleep apnea. ??? Age. The risk increases with age. What are the signs or symptoms? High blood pressure may not cause symptoms. Very high blood pressure (hypertensive crisis) may cause: ??? Headache. ??? Fast or irregular heartbeats (palpitations). ??? Shortness of breath. ??? Nosebleed. ??? Nausea and vomiting. ??? Vision changes. ??? Severe chest pain, dizziness, and seizures. How [...] risk factors, you may be asked to: ??? Return on a different day to have your blood pressure checked again. ??? Monitor your blood pressure at home for [...] your blood pressure under control and if: ??? Your systolic blood pressure is above 130. ??? Your diastolic blood pressure is above 80. Your personal target blood pressure may vary depending on your medical conditions, your age, and other factors. Follow these instructions at home: Eating and drinking ??? Eat a diet that is high in [...] higher in sodium, added sugar, and fat. ??? Reduce your daily sodium intake. Many people with hypertension should eat less than 1,500 mg of sodium a day. ??? Do not drink alcohol if: ? Your health care provider tells you not to drink. ? You are , may be , or are planning to become . ??? If you drink alcohol: ? Limit how much you have to: ? 0???1 drink a day for women. ? 0???2 drinks a day for men. ? Know how much alcohol is in your drink. In the [place] one drink equals one 12 oz bottle of beer (355 mL), one 5 oz glass of wine (148 mL), or one 1??? oz glass of hard liquor (44 mL). Lifestyle ??? Work with your health care provider to maintain a healthy body weight or to lose weight. Ask what an ideal weight is for you. ??? Get at least 30 minutes of exercise that causes your heart to beat faster (aerobic exercise) most days of the week. Activities may include walking, swimming, or biking. ??? Include exercise to strengthen your muscles (resistance exercise), such as Pilates or lifting weights, as part of your weekly exercise routine. Try to do these types of exercises for 30 minutes at least 3 days a week. ??? Do not use any products that contain nicotine or tobacco. These products include cigarettes, chewing tobacco, and vaping devices, such as e-cigarettes. If you need help quitting, ask your health care provider. ??? Monitor your blood pressure at home as told by your health care provider. ??? Keep all follow-up visits. This is important. Medicines ??? Take vhil-xxn-jjwhnoh and prescription medicines only as told by your health care provider. Follow directions carefully. Blood pressure medicines must be taken as prescribed. ??? Do not skip doses of blood pressure medicine. Doing this puts you at risk for problems and can make the medicine less effective. ??? Ask your health care provider about side effects or reactions to medicines that you should watch for. Contact a health care provider if you: ??? Think you are having a reaction to a medicine you are taking. ??? Have headaches that keep coming back (recurring). ??? Feel dizzy. ??? Have swelling in your ankles. ??? Have trouble with your vision. Get help right away if you: ??? Develop a severe headache or confusion. ??? Have unusual weakness or numbness. ??? Feel faint. ??? Have severe pain in your chest or abdomen. ??? Vomit repeatedly. ??? Have trouble breathing. These symptoms may be an emergency. Get help right away. Call 911. ??? Do not wait to see if the symptoms will go away. ??? Do not drive yourself to the hospital. Summary ??? Hypertension is when the force of blood pumping through your arteries is too strong. If this condition is not controlled, it may put you at risk for serious complications. ??? Your personal target blood pressure may vary depending on your medical conditions, your age, and other factors. For most people, a normal blood pressure is less than 120/80. ??? Hypertension is treated with lifestyle changes, medicines, or a combination of both. Lifestyle changes include losing weight, eating a healthy, low-sodium diet, exercising more, and limiting alcohol. This information is not intended to replace advice given to you by your health care provider. Make sure you discuss any questions you have with your health care provider. Document Revised: 03/15/2022 Document Reviewed: 03/15/2022 [employer] Patient Education ??? 2023 [employer]. High Cholesterol High cholesterol is a condition [...] of the body. If you have high cholesterol, deposits (plaques) may build up on the mendoza [...] you more likely to develop this condition: ??? Eating foods that are high in animal fat (saturated fat) or cholesterol. ??? Being overweight. ??? Not getting enough exercise. ??? A family history of high cholesterol (familial hypercholesterolemia). ??? Use of tobacco products. ??? Having diabetes. What are the signs or symptoms? In most cases, high cholesterol does not usually cause any symptoms. In severe cases, very high cholesterol levels can cause: ??? Fatty bumps under the skin (xanthomas). ??? A white or williamson ring around the black center (pupil) of the eye. How is this diagnosed? This condition may be diagnosed based on the results of a blood test. ??? If you are older than 20 years of age, your health care provider may check your cholesterol levels every 4???6 years. ??? You may be checked more often if you have high cholesterol or other risk factors for heart disease. The blood test for cholesterol measures: ??? Bad cholesterol, or LDL cholesterol. This is the main type of cholesterol that causes heart disease. The desired level is less than 100 mg/dL (2.59 mmol/L). ??? Good cholesterol, or HDL cholesterol. HDL helps protect against heart disease by cleaning the arteries and carrying the LDL to the liver for processing. The desired level for HDL is 60 mg/dL (1.55 mmol/L) or higher. ??? Triglycerides. These are fats that your body can store or burn for energy. The desired level is less than 150 mg/dL (1.69 mmol/L). ??? Total cholesterol. This measures the total amount of cholesterol in your blood and includes LDL, HDL, and triglycerides. The desired level is less than 200 mg/dL (5.17 mmol/L). How is this treated? Treatment for high cholesterol starts with lifestyle changes, such as diet and exercise. ??? Diet changes. You may be asked to eat foods that have more fiber and less saturated fats or added sugar. ??? Lifestyle changes. These may include regular exercise, maintaining a healthy weight, and quitting use of tobacco products. ??? Medicines. These are given when diet and lifestyle changes have not worked. You may be prescribed a statin medicine to help lower your cholesterol levels. Follow these instructions at home: Eating and drinking ??? Eat a healthy, balanced diet. This diet includes: ? Daily servings of a variety of fresh, frozen, or canned fruits and vegetables. ? Daily servings of whole grain foods that are rich in fiber. ? Foods that are low in saturated fats and trans fats. These include poultry and fish without skin, lean cuts of meat, and low-fat dairy products. ? A variety of fish, especially oily fish that contain omega-3 fatty acids. Aim to eat fish at least 2 times a week. ??? Avoid foods and drinks that have added sugar. ??? Use healthy cooking methods, such as roasting, grilling, broiling, baking, poaching, steaming, and stir-frying. Do not kaur your food except for stir-frying. ??? If you drink alcohol: ? Limit how much you have to: ? 0???1 drink a day for women who are not . ? 0???2 drinks a day for men. ? Know how much alcohol is in a drink. In the [place] one drink equals one 12 oz bottle of beer (355 mL), one 5 oz glass of wine (148 mL), or one 1??? oz glass of hard liquor (44 mL). Lifestyle ??? Get regular exercise. Aim to exercise for a total of 150 minutes a week. Increase your activity level by doing activities such as gardening, walking, and taking the stairs. ??? Do not use any products that contain nicotine or tobacco. These products include cigarettes, chewing tobacco, and vaping devices, such as e-cigarettes. If you need help quitting, ask your health care provider. General instructions ??? Take rfzk-mdi-knballp and prescription medicines only as told by your health care provider. ??? Keep all follow-up visits. This is important. Where to find more information ??? [place] [employer]: www.heart.org ??? National Heart, Lung, and Blood [place]: www.nhlbi.nih.gov Contact a health care provider if: ??? You have trouble achieving or maintaining a healthy diet or weight. ??? You are starting an exercise program. ??? You are unable to stop smoking. Get help right away if: ??? You have chest pain. ??? You have trouble breathing. ??? You have discomfort or pain in your jaw, neck, back, shoulder, or arm. ??? You have any symptoms of a stroke. BE FAST is an easy way to remember the main warning signs of a stroke: ? B - Balance. Signs are dizziness, sudden trouble walking, or loss of balance. ? E - Eyes. Signs are trouble seeing or a sudden change in vision. ? F - Face. Signs are sudden weakness or numbness of the face, or the face or eyelid drooping on one side. ? A - Arms. Signs are weakness or numbness in an arm. This happens suddenly and usually on one side of the body. ? S - Speech. Signs are sudden trouble speaking, slurred speech, or trouble understanding what people say. ? T - Time. Time to call emergency services. Write down what time symptoms started. ??? You have other signs of a stroke, such as: ? A sudden, severe headache with no known cause. ? Nausea or vomiting. ? Seizure. These symptoms may represent a serious problem that is an emergency. Do not wait to see if the symptoms will go away. Get medical help right away. Call your local emergency services (911 in the [place] Do not drive yourself to the hospital. Summary ??? Cholesterol plaques increase your risk for heart attack and stroke. Work with your health care provider to keep your cholesterol levels in a healthy range. ??? Eat a healthy, balanced diet, get regular exercise, and maintain a healthy weight. ??? Do not use any products that contain nicotine or tobacco. These products include cigarettes, chewing tobacco, and vaping devices, such as e-cigarettes. ??? Get help right away if you have any symptoms of a stroke. This information is not intended to replace advice given to you by your health care provider. Make sure you discuss any questions you have with your health care provider. Document Revised: 12/09/2022 Document Reviewed: 07/12/2021 [employer] Patient Education ??? 2023 [employer] Health Risks of Smoking Smoking tobacco is [...] is absorbed quickly into your bloodstream through your lungs. Both inhaled and non-inhaled nicotine may be addictive. How can quitting affect me? There are health benefits of quitting smoking. Some benefits happen right away and others take time. Benefits may include: ??? Blood flow, blood pressure, heart rate, and lung capacity may begin to improve. However, any lung damage that has already occurred cannot be repaired. ??? Respiratory symptoms from smoking, such as nasal congestion and cough, may improve over time. ??? Your risk of heart disease, stroke, and cancer is reduced. ??? The overall quality of your health may improve. ??? You may save money, as you will not spend money on tobacco products and may spend less money on smoking-related health issues. What can increase my risk? Smoking harms nearly every organ in the body. People who smoke tobacco have a shorter life expectancy and an increased risk of many serious medical problems. These include: ??? More respiratory infections, such as colds and pneumonia. ??? Cancer. ??? Heart disease. ??? Stroke. ??? Chronic respiratory diseases. ??? Delayed wound healing and increased risk of complications during surgery. ??? Problems with reproduction, , and childbirth, such as infertility, early (premature) births, stillbirths, and defects. Secondhand smoke exposure to children increases the risk of: ??? Sudden infant syndrome (SIDS). ??? Infections in the nose, throat, or airways (respiratory infections). ??? Chronic respiratory symptoms. What actions can I take to quit? Smoking is an addiction that affects both your body and your mind, and long-time habits can be hard to change. Your health care provider can recommend: ??? Nicotine replacement products, such as patches, gum, and nasal sprays. Use these products only as directed. Do not replace cigarette smoking with electronic cigarettes, which are commonly called e-cigarettes. The safety of e-cigarettes is not known, and some may contain harmful chemicals. ??? Programs and community resources, which may include group support, education, or talk therapy. ??? Prescription medicines to help reduce cravings. ??? A combination of two or more quit methods, which may increase the success of quitting. Where to find support Follow the recommendations from your health care provider about support groups and other assistance. You can also visit: ??? [place] Department of Health and Human Services: www.smokefree.gov ??? [place] [employer]: www.freedomfromsmoking.org ??? [place] [employer]: www.heart.org Where to find more information ??? Centers for Disease Control and Prevention: www.cdc.gov ??? World Health Organization: www.who.int Summary ??? Smoking tobacco is very bad for your health. Tobacco smoke contains many toxic chemicals that can damage every part of the body. ??? Smoking is difficult to quit because a chemical in tobacco, called nicotine, causes addiction or dependence. ??? There are immediate and long-term health benefits of quitting smoking. ??? A combination of two or more quit methods may increase the success of quitting. This information is not intended to replace advice given to you by your health care provider. Make sure you discuss any questions you have with your health care provider. Document Revised: 05/10/2022 Document Reviewed: 05/10/2022 [employer] Patient Education ??? 2023 [employer]. PATIENT EDUCATION Observed: 07/28/2024 12:58 PM Status: C Source: [facility] Patient Education Cardiovascular Hypertension, Adult High blood [...] risk factors are under your control, including: ??? Smoking. ??? Not getting enough exercise or physical activity. ??? Being overweight. ??? Having too much fat, sugar, calories, or salt (sodium) in your diet. ??? Drinking too much alcohol. Other risk factors include: ??? Having a personal history of heart disease, diabetes, high cholesterol, or kidney disease. ??? Stress. ??? Having a family history of high blood pressure and high cholesterol. ??? Having obstructive sleep apnea. ??? Age. The risk increases with age. What are the signs or symptoms? High blood pressure may not cause symptoms. Very high blood pressure (hypertensive crisis) may cause: ??? Headache. ??? Fast or irregular heartbeats (palpitations). ??? Shortness of breath. ??? Nosebleed. ??? Nausea and vomiting. ??? Vision changes. ??? Severe chest pain, dizziness, and seizures. How [...] risk factors, you may be asked to: ??? Return on a different day to have your blood pressure checked again. ??? Monitor your blood pressure at home for [...] your blood pressure under control and if: ??? Your systolic blood pressure is above 130. ??? Your diastolic blood pressure is above 80. Your personal target blood pressure may vary depending on your medical conditions, your age, and other factors. Follow these instructions at home: Eating and drinking ??? Eat a diet that is high in [...] higher in sodium, added sugar, and fat. ??? Reduce your daily sodium intake. Many people with hypertension should eat less than 1,500 mg of sodium a day. ??? Do not drink alcohol if: ? Your health care provider tells you not to drink. ? You are , may be , or are planning to become . ??? If you drink alcohol: ? Limit how [...] glass of hard liquor (44 mL). Lifestyle ??? Work with your health care provider to maintain a healthy body weight or to lose weight. Ask what an ideal weight is for you. ??? Get at least 30 minutes of exercise that causes your heart to beat faster (aerobic exercise) most days of the week. Activities may include walking, swimming, or biking. ??? Include exercise to strengthen your muscles (resistance exercise), such as Pilates or lifting weights, as part of your weekly exercise routine. Try to do these types of exercises for 30 minutes at least 3 days a week. ??? Do not use any products that contain nicotine or tobacco. These products include cigarettes, chewing tobacco, and vaping devices, such as e-cigarettes. If you need help quitting, ask your health care provider. ??? Monitor your blood pressure at home as told by your health care provider. ??? Keep all follow-up visits. This is important. Medicines ??? Take jdpz-anz-qsuihdy and prescription medicines only as told by your health care provider. Follow directions carefully. Blood pressure medicines must be taken as prescribed. ??? Do not skip doses of blood pressure medicine. Doing this puts you at risk for problems and can make the medicine less effective. ??? Ask your health care provider about side effects or reactions to medicines that you should watch for. Contact a health care provider if you: ??? Think you are having a reaction to a medicine you are taking. ??? Have headaches that keep coming back (recurring). ??? Feel dizzy. ??? Have swelling in your ankles. ??? Have trouble with your vision. Get help right away if you: ??? Develop a severe headache or confusion. ??? Have unusual weakness or numbness. ??? Feel faint. ??? Have severe pain in your chest or abdomen. ??? Vomit repeatedly. ??? Have trouble breathing. These symptoms may be an emergency. Get help right away. Call 911. ??? Do not wait to see if the symptoms will go away. ??? Do not drive yourself to the hospital. Summary ??? Hypertension is when the force of blood pumping through your arteries is too strong. If this condition is not controlled, it may put you at risk for serious complications. ??? Your personal target blood pressure may vary depending on your medical conditions, your age, and other factors. For most people, a normal blood pressure is less than 120/80. ??? Hypertension is treated with lifestyle changes, medicines, or a combination of both. Lifestyle changes include losing weight, eating a healthy, low-sodium diet, exercising more, and limiting alcohol. This information is not intended to replace advice given to you by your health care provider. Make sure you discuss any questions you have with your health care provider. Document Revised: 03/15/2022 Document Reviewed: 03/15/2022 [employer] Patient Education ? 2023 [employer]Nutrition High Cholesterol High cholesterol is a condition [...] of the body. If you have high cholesterol, deposits (plaques) may build up on the mendoza [...] you more likely to develop this condition: ??? Eating foods that are high in animal fat (saturated fat) or cholesterol. ??? Being overweight. ??? Not getting enough exercise. ??? A family history of high cholesterol (familial hypercholesterolemia). ??? Use of tobacco products. ??? Having diabetes. What are the signs or symptoms? In most cases, high cholesterol does not usually cause any symptoms. In severe cases, very high cholesterol levels can cause: ??? Fatty bumps under the skin (xanthomas). ??? A white or williamson ring around the black center (pupil) of the eye. How is this diagnosed? This condition may be diagnosed based on the results of a blood test. ??? If you are older than 20 years of age, your health care provider may check your cholesterol levels every 4?6 years. ??? You may be checked more often if you have high cholesterol or other risk factors for heart disease. The blood test for cholesterol measures: ??? Bad cholesterol, or LDL cholesterol. This is the main type of cholesterol that causes heart disease. The desired level is less than 100 mg/dL (2.59 mmol/L). ??? Good cholesterol, or HDL cholesterol. HDL helps protect against heart disease by cleaning the arteries and carrying the LDL to the liver for processing. The desired level for HDL is 60 mg/dL (1.55 mmol/L) or higher. ??? Triglycerides. These are fats that your body can store or burn for energy. The desired level is less than 150 mg/dL (1.69 mmol/L). ??? Total cholesterol. This measures the total amount of cholesterol in your blood and includes LDL, HDL, and triglycerides. The desired level is less than 200 mg/dL (5.17 mmol/L). How is this treated? Treatment for high cholesterol starts with lifestyle changes, such as diet and exercise. ??? Diet changes. You may be asked to eat foods that have more fiber and less saturated fats or added sugar. ??? Lifestyle changes. These may include regular exercise, maintaining a healthy weight, and quitting use of tobacco products. ??? Medicines. These are given when diet and lifestyle changes have not worked. You may be prescribed a statin medicine to help lower your cholesterol levels. Follow these instructions at home: Eating and drinking ??? Eat a healthy, balanced diet. This diet includes: ? Daily servings of a variety of fresh, frozen, or canned fruits and vegetables. ? Daily servings of whole grain foods that are rich in fiber. ? Foods that are low in saturated fats and trans fats. These include poultry and fish without skin, lean cuts of meat, and low-fat dairy products. ? A variety of fish, especially oily fish that contain omega-3 fatty acids. Aim to eat fish at least 2 times a week. ??? Avoid foods and drinks that have added sugar. ??? Use healthy cooking methods, such as roasting, grilling, broiling, baking, poaching, steaming, and stir-frying. Do not kaur your food except for stir- frying. ??? If you drink alcohol: ? Limit how much you have to: ? 0?1 drink a day for women who are not . ? 0?2 drinks a day for men. ? Know how much alcohol is in a drink. In the [place] one drink equals one 12 oz bottle of beer (355 mL), one 5 oz glass of wine (148 mL), or one 1? oz glass of hard liquor (44 mL). Lifestyle ??? Get regular exercise. Aim to exercise for a total of 150 minutes a week. Increase your activity level by doing activities such as gardening, walking, and taking the stairs. ??? Do not use any products that contain nicotine or tobacco. These products include cigarettes, chewing tobacco, and vaping devices, such as e-cigarettes. If you need help quitting, ask your health care provider. General instructions ??? Take opmj-hiz-thetlwa and prescription medicines only as told by your health care provider. ??? Keep all follow-up visits. This is important. Where to find more information ??? [place] [employer]: www.heart.org ??? National Heart, Lung, and Blood [place]: www.nhlbi.nih.gov Contact a health care provider if: ??? You have trouble achieving or maintaining a healthy diet or weight. ??? You are starting an exercise program. ??? You are unable to stop smoking. Get help right away if: ??? You have chest pain. ??? You have trouble breathing. ??? You have discomfort or pain in your jaw, neck, back, shoulder, or arm. ??? You have any symptoms of a stroke. BE FAST is an easy way to remember the main warning signs of a stroke: ? B - Balance. Signs are dizziness, sudden trouble walking, or loss of balance. ? E - Eyes. Signs are trouble seeing or a sudden change in vision. ? F - Face. Signs are sudden weakness or numbness of the face, or the face or eyelid drooping on one side. ? A - Arms. Signs are weakness or numbness in an arm. This happens suddenly and usually on one side of the body. ? S - Speech. Signs are sudden trouble speaking, slurred speech, or trouble understanding what people say. ? T - Time. Time to call emergency services. Write down what time symptoms started. ??? You have other signs of a stroke, such as: ? A sudden, severe headache with no known cause. ? Nausea or vomiting. ? Seizure. These symptoms may represent a serious problem that is an emergency. Do not wait to see if the symptoms will go away. Get medical help right away. Call your local emergency services (911 in the [place] Do not drive yourself to the hospital. Summary ??? Cholesterol plaques increase your risk for heart attack and stroke. Work with your health care provider to keep your cholesterol levels in a healthy range. ??? Eat a healthy, balanced diet, get regular exercise, and maintain a healthy weight. ??? Do not use any products that contain nicotine or tobacco. These products include cigarettes, chewing tobacco, and vaping devices, such as e-cigarettes. ??? Get help right away if you have any symptoms of a stroke. This information is not intended to replace advice given to you by your health care provider. Make sure you discuss any questions you have with your health care provider. Document Revised: 12/09/2022 Document Reviewed: 07/12/2021 [employer] Patient Education ? 2023 [employer]Pulmonary Medicine Health Risks of Smoking Smoking tobacco is [...] is absorbed quickly into your bloodstream through your lungs. Both inhaled and non-inhaled nicotine may be addictive. How can quitting affect me? There are health benefits of quitting smoking. Some benefits happen right away and others take time. Benefits may include: ??? Blood flow, blood pressure, heart rate, and lung capacity may begin to improve. However, any lung damage that has already occurred cannot be repaired. ??? Respiratory symptoms from smoking, such as nasal congestion and cough, may improve over time. ??? Your risk of heart disease, stroke, and cancer is reduced. ??? The overall quality of your health may improve. ??? You may save money, as you will not spend money on tobacco products and may spend less money on smoking-related health issues. What can increase my risk? Smoking harms nearly every organ in the body. People who smoke tobacco have a shorter life expectancy and an increased risk of many serious medical problems. These include: ??? More respiratory infections, such as colds and pneumonia. ??? Cancer. ??? Heart disease. ??? Stroke. ??? Chronic respiratory diseases. ??? Delayed wound healing and increased risk of complications during surgery. ??? Problems with reproduction, , and childbirth, such as infertility, early (premature) births, stillbirths, and defects. Secondhand smoke exposure to children increases the risk of: ??? Sudden syndrome (SIDS). ??? Infections in the nose, throat, or airways (respiratory infections). ??? Chronic respiratory symptoms. What actions can I take to quit? Smoking is an addiction that affects both your body and your mind, and long-time habits can be hard to change. Your health care provider can recommend: ??? Nicotine replacement products, such as patches, gum, and nasal sprays. Use these products only as directed. Do not replace cigarette smoking with electronic cigarettes, which are commonly called e-cigarettes. The safety of e-cigarettes is not known, and some may contain harmful chemicals. ??? Programs and community resources, which may include group support, education, or talk therapy. ??? Prescription medicines to help reduce cravings. ??? A combination of two or more quit methods, which may increase the success of quitting. Where to find support Follow the recommendations from your health care provider about support groups and other assistance. You can also visit: ??? U.S. Department of Health and Human Services: www.smokefree.gov ??? [place] [employer]: www.freedomfromsmoking.org ??? [place] [employer]: www.heart.org Where to find more information ??? Centers for Disease Control and Prevention: www.cdc.gov ??? World Health Organization: www.who.int Summary ??? Smoking tobacco is very bad for your health. Tobacco smoke contains many toxic chemicals that can damage every part of the body. ??? Smoking is difficult to quit because a chemical in tobacco, called nicotine, causes addiction or dependence. ??? There are immediate and long-term health benefits of quitting smoking. ??? A combination of two or more quit methods may increase the success of quitting. This information is not intended to replace advice given to you by your health care provider. Make sure you discuss any questions you have with your health care provider. Document Revised: 05/10/2022 Document Reviewed: 05/10/2022 [employer] Patient Education ? 2023 [employer]. POPULATION HEALTH Observed: 07/23/2024 1:41 PM Status: F Source: [facility] Population Health Case Information No case details exist for the encounter. Problems Ongoing AAA (abdominal aortic aneurysm) Actinic keratoses SANDEEP (acute kidney injury) Anticoagulated Benign essential HTN Cigarette nicotine dependence Combined hyperlipidemia Constipation Diverticulitis of colon Embolism of iliac artery GERD (gastroesophageal reflux disease) History of diverticular abscess of colon Hypocalcemia Ileostomy present Intermittent claudication of left lower extremity due to atherosclerosis Kidney stone on left side Lumbar radiculopathy Multiple lipomas Overweight PAD (peripheral artery disease) Pain in joint, multiple sites Restless leg syndrome S/P colon resection S/P splenectomy Sacroiliitis Sciatica Historical Smoker Procedure/Surgical History Injection of facet joint using fluoroscopic guidance [...] left flank area, transforaminal epidural steroid injection. Home Medications acetaminophen-oxycodone 325 mg-5 mg Tab, 1 tab(s), Oral, QID, Not taking atorvastatin 20 mg Tab, 20 mg= 1 tab(s), Oral, Daily, 3 refills baclofen 10 mg Tab, 10 mg= 1 tab(s), Oral, TID, PRN baclofen 10 mg tablet, 0 brava protective seal - # [id number], See Instructions, 5 refills buPROPion 150 mg ER Tab, 150 mg= 1 tab(s), Oral, BID, 11 refills cilostazol 100 mg Tab, See Instructions, 3 refills gabapentin 600 mg Tab, 600 mg= 1 tab(s), Oral, TID gabapentin 800 mg Tab, 800 mg= 1 tab(s), Oral, TID Metoprolol succinate 25 mg ER Tablet Plavix 75 mg Tab, 75 mg= 1 tab(s), Oral, Daily Protonix 40 mg Tab-DR, 40 mg= 1 tab(s), Oral, Daily, 3 refills ropinirole 2 mg Tab, 2 mg= 1 tab(s), Oral, Bedtime, 4 refills tamsulosin 0.4 mg Cap, 0.4 mg= 1 cap(s) xproconvex light -#[id number], See Instructions, 5 refills xproconvex light -#[id number], See Instructions, 5 refills Allergies No Known Allergies No Known Medication Allergies Social History Alcohol - Denies Alcohol Use, 04/27/2022 Past, Beer, 08/06/2020 Employment/School Employed, 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 Never Smokeless Tobacco Use:. Cigarettes, 1 per day. 47 year(s). Started age 10.0 Years. Previous treatment: None. Ready to change: No. Yes, 02/28/2024 10 or more cigarettes (1/2 pack or more)/day in last 30 days Tobacco Use:., 02/10/2023 Family History Alcoholism: Father. Arthritis: Mother. Cancer: Mother and Father. Screenings and Assessments 07/04/24 09:36:00 Result Name Value Comment Phone Call Monitoring Consent Agreed to continue call Phone Verification Patient Information Full name, street address and date of verified CM Program Enrollment Provides verbal consent for enrollment Goals and Interventions Care Plan Progress Note tcm #3 [id number] min Patient states I'm ok. . Continues to endorses diarrhea, but goes on to say it really isn't diarrhea anymore it's gotten more solid, it's just that I have to go right after I eat cause it goes straight through me. . Had janice removed. Denies any drainage from area and states it looks like it is healed. Denies CP, SOB, or fever. Patient continues to slowly advance diet as tolerated. Denies trouble eating, drinking, swallowing, sleeping, or with bladder. Denies concerns. Encouraged to seek medical attention should abdominal pain increase, begin to have fever, or bloody stools. Denies concerns Communication Events Date: July 23, 2024 Method: Phone call Type: Outbound Duration (min): 6 Outcome: Case discussion Contact Type: Patient Contact Name: DENVER PERDUE Notes: tcm #3 see ft summary note Created By: Alla Osuna R.N. Date: July 11, 2024 Method: Phone call Type: Outbound Duration (min): 3 Outcome: Case discussion Contact Type: Patient Contact Name: DENVER PERDUE Notes: tcm #2 see ft summary ote Created By: Alla Osuna R.N. Date: July 04, 2024 Method: Phone call Type: Outbound Duration (min): 16 Outcome: Case discussion Contact Type: Patient Contact Name: DENVER PERDUE Notes: imley #1 CN called patient back to finish call d/t bad connection Created By: Alla Osuna R.N. Date: July 04, 2024 Method: Phone call Type: Outbound Duration (min): 5 Outcome: Case discussion Contact Type: Patient Contact Name: DENVER PERDUE Notes: tcm #1 see ft summary note Created By: Alla Osuna R.N. POPULATION HEALTH Observed: 07/11/2024 9:37 AM Status: F Source: [facility] Population Health Case Information No case details exist for the encounter. Problems Ongoing AAA (abdominal aortic aneurysm) Actinic keratoses SANDEEP (acute kidney injury) Anticoagulated Benign essential HTN Cigarette nicotine dependence Combined hyperlipidemia Constipation Diverticulitis of colon Embolism of iliac artery GERD (gastroesophageal reflux disease) History of diverticular abscess of colon Hypocalcemia Ileostomy present Intermittent claudication of left lower extremity due to atherosclerosis Kidney stone on left side Lumbar radiculopathy Multiple lipomas Overweight PAD (peripheral artery disease) Pain in joint, multiple sites Restless leg syndrome S/P colon resection S/P splenectomy Sacroiliitis Sciatica Historical Smoker Procedure/Surgical History Injection of facet joint using fluoroscopic guidance [...] left flank area, transforaminal epidural steroid injection. Home Medications acetaminophen-oxycodone 325 mg-5 mg Tab, 1 tab(s), Oral, QID, Not taking atorvastatin 20 mg Tab, 20 mg= 1 tab(s), Oral, Daily, 3 refills baclofen 10 mg Tab, 10 mg= 1 tab(s), Oral, TID, PRN baclofen 10 mg tablet, 0 brava protective seal - # [id number], See Instructions, 5 refills buPROPion 150 mg ER Tab, 150 mg= 1 tab(s), Oral, BID, 11 refills cilostazol 100 mg Tab, See Instructions, 3 refills gabapentin 600 mg Tab, 600 mg= 1 tab(s), Oral, TID gabapentin 800 mg Tab, 800 mg= 1 tab(s), Oral, TID Metoprolol succinate 25 mg ER Tablet Plavix 75 mg Tab, 75 mg= 1 tab(s), Oral, Daily Protonix 40 mg Tab-DR, 40 mg= 1 tab(s), Oral, Daily, 3 refills ropinirole 2 mg Tab, 2 mg= 1 tab(s), Oral, Bedtime, 4 refills tamsulosin 0.4 mg Cap, 0.4 mg= 1 cap(s) xproconvex light -#[id number], See Instructions, 5 refills xproconvex light -#[id number], See Instructions, 5 refills Allergies No Known Allergies No Known Medication Allergies Social History Alcohol - Denies Alcohol Use, 04/27/2022 Past, Beer, 08/06/2020 Employment/School Employed, 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 Never Smokeless Tobacco Use:. Cigarettes, 1 per day. 47 year(s). Started age 10.0 Years. Previous treatment: None. Ready to change: No. Yes, 02/28/2024 10 or more cigarettes (1/2 pack or more)/day in last 30 days Tobacco Use:., 02/10/2023 Family History Alcoholism: Father. Arthritis: Mother. Cancer: Mother and Father. Screenings and Assessments 07/04/24 09:36:00 Result Name Value Comment Phone Call Monitoring Consent Agreed to continue call Phone Verification Patient Information Full name, street address and date of verified CM Program Enrollment Provides verbal consent for enrollment Goals and Interventions Care Plan Progress Note [facility] #4 [id number] 12 min Patient states I'm ok, just a little sore. . Continues to endorses diarrhea. Discussed using a barrier cream in Sheila area d/t soreness.Has 7 seven janice to close wound. It is covered at this time by a gauze dressing per patient. States dressing is clean and dry with no discharge. Will have janice removed 07/16/2024. Denies CP, SOB, or fever. Endorse, but does state that this is becoming less frequent and is also having formed stool as well. Patient also continues to express discomfort around anus d/t frequency of BM. Indicates he is using hemorrhoid cream to soothe area. Discussed using a barrier cream as well. Patient is slowly advancing diet as tolerated. Denies trouble eating, drinking, swallowing, sleeping, or with bladder. Denies concerns. Encouraged to seek medical attention should abdominal pain increase, begin to have fever, bloody stools, or purulent discharge from wound. Also encouraged patient to use pillow o splint if needed to cough. Patient acknowledged understanding. Communication Events Date: July 11, 2024 Method: Phone call Type: Outbound Duration (min): 3 Outcome: Case discussion Contact Type: Patient Contact Name: DENVER PERDUE Notes: tcm #2 see ft summary ote Created By: Alla Osuna R.N. Date: July 04, 2024 Method: Phone call Type: Outbound Duration (min): 16 Outcome: Case discussion Contact Type: Patient Contact Name: DENVER PERDUE Notes: tcm #1 CN called patient back to finish call d/t bad connection Created By: Alla Osuna R.N. Date: July 04, 2024 Method: Phone call Type: Outbound Duration (min): 5 Outcome: Case discussion Contact Type: Patient Contact Name: DENVER PERDUE Notes: tcm #1 see ft summary note Created By: Alla Osuna R.N. POPULATION HEALTH Observed: 07/04/2024 9:40 AM Status: F Source: [facility] Population Health Case Information No case details exist for the encounter. Problems Ongoing AAA (abdominal aortic aneurysm) Actinic keratoses SANDEEP (acute kidney injury) Anticoagulated Benign essential HTN Cigarette nicotine dependence Combined hyperlipidemia Constipation Diverticulitis of colon Embolism of iliac artery GERD (gastroesophageal reflux disease) History of diverticular abscess of colon Hypocalcemia Ileostomy present Intermittent claudication of left lower extremity due to atherosclerosis Kidney stone on left side Lumbar radiculopathy Multiple lipomas Overweight PAD (peripheral artery disease) Pain in joint, multiple sites Restless leg syndrome S/P colon resection S/P splenectomy Sacroiliitis Sciatica Historical Smoker Procedure/Surgical History Injection of facet joint using fluoroscopic guidance [...] left flank area, transforaminal epidural steroid injection. Home Medications acetaminophen-oxycodone 325 mg-5 mg Tab, 1 tab(s), Oral, QID, Not taking atorvastatin 20 mg Tab, 20 mg= 1 tab(s), Oral, Daily, 3 refills baclofen 10 mg Tab, 10 mg= 1 tab(s), Oral, TID, PRN baclofen 10 mg tablet, 0 brava protective seal - # [id number], See Instructions, 5 refills buPROPion 150 mg ER Tab, 150 mg= 1 tab(s), Oral, BID, 11 refills cilostazol 100 mg Tab, See Instructions, 3 refills gabapentin 600 mg Tab, 600 mg= 1 tab(s), Oral, TID gabapentin 800 mg Tab, 800 mg= 1 tab(s), Oral, TID Metoprolol succinate 25 mg ER Tablet Percocet 5 mg-325 mg oral tablet, 1 tab(s), Oral, q6hr Plavix 75 mg Tab, 75 mg= 1 tab(s), Oral, Daily Protonix 40 mg Tab-DR, 40 mg= 1 tab(s), Oral, Daily, 3 refills ropinirole 2 mg Tab, 2 mg= 1 tab(s), Oral, Bedtime, 4 refills tamsulosin 0.4 mg Cap, 0.4 mg= 1 cap(s) xproconvex light -#[id number], See Instructions, 5 refills xproconvex light -#[id number], See Instructions, 5 refills Allergies No Known Allergies No Known Medication Allergies Social History Alcohol - Denies Alcohol Use, 04/27/2022 Past, Beer, 08/06/2020 Employment/School Employed, 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 Never Smokeless Tobacco Use:. Cigarettes, 1 per day. 47 year(s). Started age 10.0 Years. Previous treatment: None. Ready to change: No. Yes, 02/28/2024 10 or more cigarettes (1/2 pack or more)/day in last 30 days Tobacco Use:., 02/10/2023 Family History Alcoholism: Father. Arthritis: Mother. Cancer: Mother and Father. Screenings and Assessments 07/04/24 09:36:00 Result Name Value Comment Phone Call Monitoring Consent Agreed to continue call Phone Verification Patient Information Full name, street address and date of verified CM Program Enrollment Provides verbal consent for enrollment Goals and Interventions Care Plan Progress Note Admit Date: 07/01/2024 Date of Discharge: 07/03/2024 Follow-up appointment scheduled? declines at this time. Will f/u with specialist. Did you understand your discharge instructions? yes Are you able to follow them? yes Did you receive new medications? Percocet 5-325 q6h PO PRN up to 3 days Have you filled the Rx's? yes Are you taking them as prescribed? yes Are you having difficulty eating or swallowing your pills? no Are you having any stomach upset, diarrhea or constipation? diarrhea How are you sleeping? ok Are you having any pain? some soreness in abdomen Do you have everything you need at home to care for yourself? yes Do you have Home Health? no Called patient for Transitional Care Management following hospitalization for ileostomy reversal. Patient risk for readmission unavailable. Reviewed discharge instructions and medications reconciled with patient, discharge list and EHR. Reviewed purpose and side effects of new medications. Patient states I'm ok, just a little sore. . Endorses diarrhea. Discussed using a barrier cream in Sheila area d/t soreness.Has 7 seven janice to close wound. It is covered at this time by a guaze dressing per patient. States dressing is clean and dry with no discharge. Denies CP, SOB, or fever. Endorses some soreness in back. Expressed concern of how long would have diarrhea. CN reminded patient it could take several weeks/months for everything to return to normal. Encouraged patient to discuss this with specialist at follow up in a 2 weeks. Patient is slowly advancing diet as tolerated. Denies trouble eating, drinking, swallowing, sleeping, or wit bladder. Denies concerns. Encouraged to seek medical attention should abdominal pain increase, begin to have fever, bloody stools, or purulent discharge from wound. Also encouraged patient to use pillow o splint if needed to cough. Patient acknowledged understanding. TCM services explained and direct phone number given. Communication Events Date: July 04, 2024 Method: Phone call Type: Outbound Duration (min): 16 Outcome: Case discussion Contact Type: Patient Contact Name: SHANNANDENVER Notes: tcm #1 CN called patient back to finish call d/t bad connection Created By: Alla Osuna R.N. Date: July 04, 2024 Method: Phone call Type: Outbound Duration (min): 5 Outcome: Case discussion Contact Type: Patient Contact Name: DENVER PERDUE Notes: tcm #1 see ft summary note Created By: Alla Osuna R.N. CBC WITH PLATELET AND DIFFERENTIAL Collected: 07/03/2024 5:46 AM Status: F Source: [facility] Order Comment: Collection lima s been rescheduled by JACQUE at 07/03/2024 05:39 Reason: Patient refuse venipuncture TYPE CODE TESTS RESULT OUT OF RANGE REFERENCE UNITS LAB WBCIR WBC 11.9 High alert 4.8-10.8 K/uL LAB RBC RBC 3.54 Low 4.70-6.10 M/uL LAB HGB Hemoglobin 9.0 Low 14.0-18.0 g/dL LAB HCT Hematocrit 30.4 Low 42.0-52.0 % LAB MCV MCV 85.9 79.0-92.2 fL LAB MCH MCH 25.4 Low 27.0-31.3 pg LAB MCHC MCHC 29.6 Low 33.0-37.0 % LAB RDW RDW 17.5 High alert 11.5-14.5 % LAB PLT Platelet Count 511 High alert 130-400 K/uL LAB SMDG Smudge Cells 12.5 LAB ANISO Anisocytosis 1+ LAB MACRO Macrocytic 1+ LAB POLY Polychromasia 1+ LAB HYPO Hypochromia 1+ LAB POIK Poikilocytosis 2+ LAB OVAL Ovalocytes 1+ LAB TARG Target Cells 1+ LAB PLTR Platelet Slide Review Increased LAB SLREV Slide Review see below Result Comment: Slide review agrees with reported results LAB SEGR Neutrophils 57.0 % LAB LYMPR Lymphocytes 34.0 % LAB MONOR Monocytes 5.8 % LAB EOSR Eosinophils 3.0 % LAB BASOR Basophils 1.0 % LAB ASEGR Absolute Neutrophils 6.8 High alert 1.4-6.5 K/uL LAB ALYMR Absolute Lymphocytes 4.0 1.0-4.8 K/uL LAB AMONR Absolute Monocytes 0.7 0.2-0.8 K/uL LAB AEOSR Absolute Eosinophils 0.4 0.0-0.7 K/uL LAB ABASR Absolute Basophils 0.1 0.0-0.2 K/uL Performed By: #### CBCWD ### # [facility] [address] [place] [address] CBC WITH PLATELET NO DIFFERENTIAL Collected: 07/02/2024 5:06 AM Status: F Source: [facility] TYPE CODE TESTS RESULT OUT OF RANGE REFERENCE UNITS LAB WBCIR WBC 19.3 High alert 4.8-10.8 K/uL LAB RBC RBC 3.60 Low 4.70-6.10 M/uL LAB HGB Hemoglobin 9.3 Low 14.0-18.0 g/dL LAB HCT Hematocrit 31.4 Low 42.0-52.0 % LAB MCV MCV 87.2 79.0-92.2 fL LAB MCH MCH 25.8 Low 27.0-31.3 pg LAB MCHC MCHC 29.6 Low 33.0-37.0 % LAB RDW RDW 17.9 High alert 11.5-14.5 % LAB PLT Platelet Count 540 High alert 130-400 K/uL Performed By: #### CBCND ### # [facility] [address] [place] [id number] BASIC METABOLIC PANEL Collected: 2024 5:06 AM Status: F Source: [facility] TYPE CODE TESTS RESULT OUT OF RANGE REFERENCE UNITS LAB NA Sodium 143 135-144 mEq/L LAB K Potassium 4.3 3.4-4.9 mEq/L LAB CL Chloride 108 High alert 95-107 mEq/L LAB CO2 CO2 25 20-31 mEq/L LAB AGAP Anion Gap 10 9-15 mEq/L LAB GLU Glucose 74 70-99 mg/dL LAB BUN BUN 15 8-23 mg/dL LAB CREA Creatinine 0.97 0.70-1.20 mg/dL LAB GFR GFR 86.8 >60 Result Comment: Pediatric ca lculator link https://www.kidney.org/professionals/kdoqi/gfr_calculatorped Effective Feb 21, 2022 These [...] following therapy that affects renal tubular secretion. LAB CA Calcium 8.4 Low 8.5-9.9 mg/dL Performed By: #### BMP #### [facility] [address] [place] [id number] OPERATIVE REPORT Observed: 07/01/2024 9:47 AM Status: F Source: [facility] [address] [place] [address] OPERATIVE REPORT PATIENT NAME:DENVER PERDUE DOB:1960 [facility] REC NO:[id number] ROOM:[facility] ACCOUNT NO:[id number] ADMIT DATE:07/01/2024 PROVIDER:Beltran Izaguirre MD DATE OF PROCEDURE: 07/01/2024 SURGEON: Beltran Izaguirre MD SAFETY SECURITY OFFICER: Ms. Olvera. PREOPERATIVE DIAGNOSIS: Dysfunctional ileostomy. POSTOPERATIVE DIAGNOSIS: Dysfunctional ileostomy. PROCEDURE: Ileostomy reversal. ANESTHESIA: 1. General endotracheal anesthesia. 2. Bilateral TAP block. ESTIMATED BLOOD LOSS: 50. SPECIMEN: None. COMPLICATIONS: None. INDICATIONS: 63-year-old male with previous sigmoid resection with diverting ileostomy for complicated diverticulitis. Colonoscopy preoperatively showed a patent anastomosis. Risks and benefits of ileostomy reversal discussed. Risks of infection, bleeding, anastomotic leak, reoperation, and postoperative pain discussed. Despite the risks, he wished to proceed. Consent obtained. DESCRIPTION OF PROCEDURE: He was taken to the operating room, placed in a supine position. General endotracheal anesthesia was administered. Abdomen was prepped and draped with a ChloraPrep-containing solution. Bilateral TAP block was placed. Ancef and Flagyl given preoperatively. Time-out was taken for appropriate verification. A circumferential incision at the mucocutaneous junction of his loop ileostomy was performed. It was freed up to the anterior fascia. I entered the abdomen without difficulty. The remainder of the adhesions were taken down circumferentially. The ileostomy and the afferent and efferent limbs of the bowel were exteriorized. A 75 HORACE was used to transect the afferent and efferent limbs of the ileostomy. The mesentery was suture ligated using 0 Vicryl suture. The ileostomy was discarded. A irgz-is-gtov ileoileostomy was performed with a 75 HORACE and completed with a 60 TA stapler. The anastomotic crotch was reinforced with interrupted 3-0 silk suture. The mesenteric defect was closed with a 3-0 silk suture in a [id number]-[id number] fashion. The anastomosis was well perfused and under no tension. The bowel was placed back in the abdomen. No other adhesions were present. Lap, needle, and instrument counts were all correct. The posterior fascia was closed using a running 0 Vicryl suture. The anterior fascia was closed with a combination of 0 Vicryl and 0 Prolene suture. Subcutaneous tissues were irrigated with saline. A 1/-inch Henry drain was placed and secured in the subcutaneous tissue, and the skin was closed with janice. Following completion, the lap, needle, and instrument counts were all correct. The patient was extubated and taken to Recovery for postop monitoring. BELTRAN IZAGUIRRE MD TPO/AQS Doc#: [id number] SURGICAL SPECIMEN Observed: 06/10/2024 9:27 AM Status: F Source: [facility] [address] [place], [place] [id number] FINAL SURGICAL PATHOLOGY REPORT Patient Name: DENVER PERDUE Accession No: [id number] Age Sex: 1960 Location: [facility] Account No: [id number] Collected: 06/10/2024 Med Rec No: [id number] Received: 06/11/2024 Attend Phys: BELTRAN IZAGUIRRE Completed: 06/12/2024 Perform Phys: BELTRAN IZAGUIRRE FINAL DIAGNOSIS: DESCENDING COLON BIOPSY - INFLAMMATORY POLYP WITH FOCAL ADENOMATOUS CHANGES. ALIFA/KATINA CLINICAL INFORMATION: Colon cancer screening, Z12.11. SPECIMEN: Descending Colon Biopsy GROSS DESCRIPTION: The specimen is received in formalin in a container labeled Denver Perdue and designated as colon and consists of a pinkish-estrdaa polyp, measuring 3 mm in greatest dimension, filtered, submitted in toto in one cassette. KATINA/HUSSEIN CPT: 62835 X1 NITA HILLMAN M.D. 06/12/2024 Electronically signed out by Page 1 of 1 Performed By: #### JOSE CARLOS #### [address] [address] FAMILY MEDICINE OFFICE/CLINI C NOTE Observed: 06/04/2024 3:38 PM Status: F Source: [facility] Family Medicine Office/Clini c Note Chief Complaint The patient presents for follow-up care regarding acute kidney injury and persistent restless legs syndrome. HPI Staff C/O:restless leg Onset: ongoing / chronic Location: left leg Symptoms: cramps, spasms OTC: History of Present Illness 63 Years old Male here for 1 Month follow up upon discharge from the hospital for acute kidney injury and splenectomy, companied by his . HPI staff / Chief Complaint confirmed with the patient Screening: Colon Cancer screenin03/23/2024 with a year f/u recommended; this patient does _ have family history of colon cancer: found a blockage, had a colon resection 04/10/2024 Labs: 08/01/2023 for office, 04/2024 hospital PSA: 1.1 on 02/2022 ; this patient does _ have a family history of prostate cancer Smokers/ former smokers: Low dose lung CT: _ List of Providers: Pain clinic: Dr Andrade Cardiovascular surgeon: Dr Yan Material Scheduler: Dr Izaguirre Registration Manager: [facility] Cr/eGFR: eGFR: 95 mL/min/1.73 m2 (08/01/23 08:56:00) Creatinine: 0.9 mg/dL (08/01/23 08:56:00) A1c: No qualifying data available. TSH: No qualifying data available. Vit D: No qualifying data available. LDL: LDL Direct: 72 mg/dL (08/01/23 08:56:00) Lipids: Chol: 125 mg/dL (08/01/23 08:56:00) HDL: 42 mg/dL (08/01/23 08:56:00) LDL Direct: 72 mg/dL (08/01/23 08:56:00) Tri mg/dL (08/01/23 08:56:00) VLDL: 18 mg/dL (08/01/23 08:56:00) Future Appointments [facility] [place] Appt. Date: 08/02/2024 7:20 AM Scheduled Provider: [place], [address] Phone: [phone] Fax: [phone] The acute kidney injury was initially noticed when the patient began experiencing symptoms, including changes in urination patterns, as described during the visit. Blood work was recently done to monitor kidney function and CBC, which reportedly showed high blood platelets, though they are improving. 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 The patient had a catheter placed for about a week while in the hospital due to difficulty urinating, leading to ongoing issues with urination flow. 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 The patient also has a history of restless legs syndrome, for which he has been prescribed 1 mg of Ropinirole, initially taken twice daily due to severity at night. The patient reports that 2 mg provides better symptom control, and requests an increase in dosage. Moreover, the patient has a history of cigarette nicotine dependence but has quit smoking. He is currently using nicotine patches to manage withdrawal symptoms, having recently reduced to a 14 mg patch. The patient reports cravings and potential overdosing risks if he smoked while on the patches, which he has avoided. Additionally, the patient reports the presence of lipomas, which were noted during the visit. One on the leg has increased in size over time. Review of Systems PHQ Score Initial Depression Screen Score: 0 SCORE - Skin: Reports presence of knots/lipomas. - Musculoskeletal: Reports restless legs, primarily at night. - Genitourinary: Reports altered urination patterns since catheterization. - Respiratory: Denies wheezing. - Social: Denies current smoking status. Physical Exam Vitals & Measurements T: 36.7 ???C(Temporal Artery) HR: 76(Peripheral) RR: 18 BP: 126/68 SpO2: 97% HT: 69 in HT: 176 cm WT: 82.5 kg WT: 181.881 lb BMI: 26.63 Constitutional: Well-groomed, well-nourished, no signs of acute distress. HEENT: Head normocephalic, sclera is clear. Cardiothoracic: Heart rate and rhythm is regular strong, normal S1 and S2. No murmurs, rubs, or bruits auscultated. No peripheral edema, peripheral pulses +2 Respiratory: Lung sounds are clear throughout, respirations regular nonlabored. No wheezing noted. Abdomen/GI: Abdomen soft nondistended. ostomy in placed to right abdomen Musculoskeletal: Gait is steady, full range of motion. Integument: No rashes or lesions noted to the exposed skin. Approximate 2 inch round, soft, raised movable area to the left lateral leg, approximate 1 to 2 inch round, soft, raised movable area to the right axillary. Psychiatric: Alert and oriented x 3, pleasant, no mood changes. Assessment/Plan 1. SANDEEP (acute kidney injury) (N17.9: Acute kidney failure, unspecified) Continued monitoring of kidney function is indicated. Blood work will be rechecked at the next visit to ensure improvement. The patient's catheter history and urinary changes necessitate follow-up consideration. For current evaluation, no nephrology referral was needed unless laboratory abnormalities persist. 2. Ileostomy present (Z93.2: Ileostomy status) No intervention required today regarding the ileostomy. Ensure supply issues for ileostomy care are being addressed, as per the patient???s report of exchange troubles and need for appropriate supplies. 3. Restless Legs Syndrome (G25.81) The patient's Ropinirole dosage has been increased to 2 mg for better symptom control. Monitor effectiveness and any side effects during the trial period, with a follow-up plan to reassess or adjust the dosage if necessary. 4. Multiple lipomas (D17.9: Benign lipomatous neoplasm, unspecified) Known history of having lipomas. Noticed 1 on the left lateral leg that has gotten a little bit bigger per patient. He already follows up with a candy dipper. Encouraged that if it starts increasing in size or causing discomfort to follow-up with them to have it evaluated and removed. 5. Cigarette nicotine dependence (F17.210: Nicotine dependence, cigarettes, uncomplicated) The patient continues using nicotine patches to manage withdrawal as he remains abstinent from smoking. A transition to a lower patch dosage has commenced. Reinforce the need to avoid smoking with the patch to prevent nicotine overdose. 6. Overweight (E66.3: Overweight) Calorie restriction along with routine aerobic exercises discussed in order to avoid hypertension, osteoarthritis, metabolic syndrome and/or worsening of chronic underlying disease states. Encouraged to limit sugary drinks, foods high in sodium, as well as alcohol. 7. BMI 26.0-26.9,adult (Z68.26: Body mass index [BMI] 26.0-26.9, adult) see #5 Orders: nicotine, 1 patch(es), TransDermal, Daily for 21 day(s), 21 patch(es), Refill(s) 0, Apply 1 patch daily as directed, [facility], 176, cm, 06/04/24 14:49:00 EST, Height/Length Dosing, 82.5, kg, 06/04/24 14:49:00 EST, Weight Dosing ropinirole, 2 mg = 1 tab(s), Oral, Bedtime, X 30 day(s), # 30 tab(s), Refills(s) 0, Pharmacy: [facility], 176, cm, 06/04/24 14:49:00 EST, Height/Length Dosing, 82.5, kg, 06/04/24 14:49:00 EST, Weight Dosing This note was created by the assist of a speech-recognition program although the intention is to generate a document that actually reflects the content of the visit, no guarantees can be provided that every mistake has been identified and corrected by editing. Follow-up With When Contact Information Curt MSN, CONCRETE VIBRATOR OPERATOR-POLYMER MATERIALS CONSULTANT, Beth Dash Only if needed [address] [place] [phone] Additional Instructions: Patient Education Lipoma Restless Legs Syndrome Colostomy Home Guide, Adult Acute Kidney Injury, Adult Health Risks of Smoking Problem List/Past Medical History Ongoing AAA (abdominal aortic aneurysm) Actinic keratoses SANDEEP (acute kidney injury) Anticoagulated Benign essential HTN Cigarette nicotine dependence Combined hyperlipidemia Constipation Diverticulitis of colon Embolism of iliac artery GERD (gastroesophageal reflux disease) History of diverticular abscess of colon Hypocalcemia Ileostomy present Intermittent claudication of left lower extremity due to atherosclerosis Kidney stone on left side Lumbar radiculopathy Multiple lipomas Overweight PAD (peripheral artery disease) Pain in joint, multiple sites Restless leg syndrome S/P colon resection S/P splenectomy Sacroiliitis Sciatica Historical Smoker Procedure/Surgical History Injection of facet joint using fluoroscopic guidance [...] left flank area, transforaminal epidural steroid injection. Medications acetaminophen-oxycodone 325 mg-5 mg Tab, 1 tab(s), Oral, QID atorvastatin 20 mg Tab, 20 mg= 1 tab(s), Oral, Daily, 3 refills baclofen 10 mg Tab, 10 mg= 1 tab(s), Oral, TID, PRN baclofen 10 mg tablet, 0 brava protective seal - # [id number], See Instructions, 5 refills buPROPion 150 mg ER Tab, 150 mg= 1 tab(s), Oral, BID, 11 refills cilostazol 100 mg Tab, See Instructions, 3 refills gabapentin 600 mg Tab, 600 mg= 1 tab(s), Oral, TID gabapentin 800 mg Tab, 800 mg= 1 tab(s), Oral, TID Metoprolol succinate 25 mg ER Tablet nicotine 14 mg/24 hr Transderm ER Film, 1 patch(es), TransDermal, Daily Plavix 75 mg Tab, 75 mg= 1 tab(s), Oral, Daily Protonix 40 mg Tab-DR, 40 mg= 1 tab(s), Oral, Daily, 3 refills ropinirole 2 mg Tab, 2 mg= 1 tab(s), Oral, Bedtime tamsulosin 0.4 mg Cap, 0.4 mg= 1 cap(s) xproconvex light -#[id number], See Instructions, 5 refills xproconvex light -#[id number], See Instructions, 5 refills Allergies No Known Allergies No Known Medication Allergies Social History Alcohol - Denies Alcohol Use, 04/27/2022 Past, Beer, 08/06/2020 Employment/School Employed, 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 Never Smokeless Tobacco Use:. Cigarettes, 1 per day. 47 year(s). Started age 11.0 Years. Previous treatment: None. Ready to change: No. Yes, 02/28/2024 10 or more cigarettes (1/2 pack or more)/day in last 30 days Tobacco Use:., 02/10/2023 Family History Alcoholism: Father. Arthritis: Mother. Cancer: Mother and Father. Immunizations Vaccine Date Status Comments influenza virus vaccine, inactivated - Not Given Postpone due to refusal influenza virus vaccine, inactivated - Not Given Patient Refuses diphtheria/pertussis, acel/tetanus adult 08/21/2021 Given SARS-CoV-2 (COVID-19) mRNA BNT-162b2 vax 09/04/2020 Given Prophylaxis SARS-CoV-2 (COVID-19) mRNA BNT-162b2 vax 08/07/2020 Given Prophylaxis influenza virus vaccine, inactivated - Not Given Patient Refuses influenza virus vaccine, inactivated 04/11/2019 Given diphtheria/pertussis, acel/tetanus adult 03/24/2017 Given Result Comment: Electronical ly Signed By: Curt AQUINO, CONCRETE VIBRATOR OPERATOR-POLYMER MATERIALS CONSULTANT, Beth Dash\.br\Date and Time Signed: 06/04/24 15:38 EST PATIENT EDUCATION Observed: 06/04/2024 3:38 PM Status: C Source: [facility] Patient Education Caregiving Colostomy Home Guide, Adult A colostomy is a surgically created opening (ostomy) that brings a piece of the large intestine through an opening in the abdomen to create a stoma. The stoma allows stool (feces) and gas (flatus) to leave the body. A stoma may be a variety of shapes and sizes. An ostomy pouch or bag is used to cover the stoma and to contain the stool and gas. A colostomy may be temporary or permanent, depending on the medical reason for your surgery. After surgery, you will need to learn to care for your ostomy. This includes emptying and changing the colostomy bag as needed. There are many different types of bags or pouching options, including one-piece, two-piece, clear, fabric covered, flat or curved (convex), drainable, and closed or vented options. Your health care provider will help you select the best pouch for you. How to care for the stoma Your stoma should look pink, red, and moist, like the inside of your cheek. It should not be painful to touch, but it may bleed easily when rubbed or bumped. Soon after surgery, the stoma may be swollen, but this goes away within 6 weeks. To care for the stoma: ??? Keep the skin around the stoma clean and dry. ??? Use a clean, soft washcloth to gently wash the stoma and the skin around it. Clean using a circular motion, and wipe away from the stoma opening, nottoward it. ? Use warm water and only use cleansers, such as mild soap and stoma-safe adhesive remover, recommended by your health care provider. ? Inspect and dry the skin around the stoma. ??? Use stoma powder or skin protectant on your skin as told by your health care provider. Do not use any other powders, gels, wipes, or creams on the skin around the stoma. These may keep pouch adhesive from sticking or may cause injury to your stoma. ??? Check the stoma area every day for signs of infection or problems. Check for: ? New or worsening redness, warmth, swelling, irritation, itching, or pain around the stoma. ? New or worsening changes to the stoma, such as bleeding, trauma, or a dark and dusky color. ? Changes to the drainage from the stoma, such as pus, blood, a large amount of liquid drainage, or little to no stool drainage. ??? Measure the stoma opening regularly and record the size. Watch for changes, such as the stoma getting longer, becoming flat, or falling below skin level. (It is normal for the stoma to get smaller as the swelling goes away.) Share this information with your health care provider. Changes in the size or shape of the stoma may require a different style of pouch to be used. How to empty the colostomy bag Empty your bag at bedtime, before physical activity or sexual relations, and whenever it is one-third to one-half full. Do not let the bag get more than half-full with stool or gas. The bag could leak if it gets too full. Some colostomy bags have a built-in gas release valve that releases gas often throughout the day. Follow these basic steps for emptying a drainable pouch: 1. Prepare the toilet or container: ??? If draining directly into the toilet, put several pieces of toilet paper into the toilet water. This will prevent splashing as you empty the stool into the toilet. Sit far back on the toilet seat. ??? If draining into a container, place a few pieces of moistened toilet paper in the bottom of the container. This can help when emptying the container. 2. Remove the clip or the tqsd-org-[id number] fastener from the tail end of the bag. 3. Unroll the tail, then empty the stool into the toilet or container. 4. Clean the tail with toilet paper or a moist towelette. 5. Reroll the tail, and close it with the clip or the dych-bcw-mnox fastener. 6. Wash your hands. How to change the colostomy bag Change your bag every 3?4 days or as often as told by your health care provider. Also change the bag if it is leaking or from the skin, or if your skin around the stoma looks or feels irritated. Irritated skin may be a sign that the bag is leaking. Always have colostomy supplies with you, and follow these basic steps: 1. Have paper towels or tissues and a trash bag nearby to clean any discharge and dispose of the soiled pouch. 2. Remove the old pouching appliance. Use your fingers, a warm, moist cloth, or a stoma-safe adhesive remover to gently remove the pouch and remove adhesive residue. 3. Clean the stoma area with water or with mild soap and water, as directed. Use water to rinse away any soap. 4. Dry the skin. You may use the cool setting on a unhairer to do this. 5. Use a tracing pattern (template) to cut the skin barrier to the size needed. The opening should be large enough to fit around the stoma, but you should not see exposed skin. 6. If you are using a two-piece bag, attach the bag and the base to each other. Add the barrier ring, if you use one. 7. If directed, apply stoma powder or skin protectant to the skin. 8. Warm the pouch base with your hands or blow with a unhairer for 5?10 seconds. 9. Remove the paper from the adhesive backing of the pouch base. 10. Press the adhesive backing onto the skin around the stoma. 11. Gently rub the pouch base onto the skin. This creates heat that helps the barrier to stick. 12. Apply barrier strips to the edges of the pouch, if desired. 13. Dispose of the soiled pouch, and wash your hands. General recommendations ??? Avoid wearing tight clothes or having anything press directly on your stoma or bag. Change your clothing whenever it is soiled or damp. ??? You may shower or bathe with the bag on or off. Do not use harsh or oily soaps or lotions. Dry the skin and bag after bathing. Do not shower or bathe right after changing the pouch. Wait 4?5 hours. ??? Store all supplies in a cool, dry place. Do not leave supplies in extreme heat because some parts can melt or not stick as well. ??? Whenever you leave home, take extra clothing and an extra ostomy pouch with you. ??? If your bag gets wet, you can dry it with a unhairer on the cool setting. ??? To prevent odor, you may put drops of ostomy deodorizer in the bag. ??? If recommended by your health care provider, put ostomy lubricant inside the bag. This helps stool slide out of the bag more easily and completely. Contact a health care provider if: ??? You have new or worsening redness, warmth, swelling, irritation, itching, or pain around the stoma. ??? You have new or worsening changes to the stoma, such as bleeding, trauma, or a dark and dusky color. ??? There are changes to the drainage from the stoma, such as pus, blood, a large amount of liquid drainage, or little to no stool drainage. ??? Your stoma extends in or out farther than normal. ??? You need to change your bag every day or have frequent leaks. ??? You have a fever. Get help right away if: ??? Your stool is bloody. ??? You have nausea or you vomit. ??? You have trouble breathing. These symptoms may be an emergency. Get help right away. Call 911. ??? Do not wait to see if the symptoms will go away. ??? Do not drive yourself to the hospital. Summary ??? Measure your stoma opening regularly and record the size. Watch for changes. ??? Empty your bag at bedtime, before physical activity or sexual relations, and whenever it is one-third to one-half full. Do not let the bag get more than half-full with stool or gas. ??? Change your bag every 3?4 days or as often as told by your health care provider. ??? Whenever you leave home, take extra clothing and an extra ostomy pouch with you. This information is not intended to replace advice given to you by your health care provider. Make sure you discuss any questions you have with your health care provider. Document Revised: 05/18/2022 Document Reviewed: 05/18/2022 [employer] Patient Education ? 2023 [employer].Dermatology Lipoma A lipoma is a noncancerous (benign) tumor that is made up of fat cells. This is a very common type of soft-tissue growth. Lipomas are usually found under the skin (subcutaneous). They may occur in any tissue of the body that contains fat. Common areas for lipomas to appear include the back, arms, shoulders, buttocks, and thighs. Lipomas grow slowly, and they are usually painless. Most lipomas do not cause problems and do not require treatment. What are the causes? The cause of this condition is not known. What increases the risk? You are more likely to develop this condition if: ??? You are 40?60 years old. ??? You have a family history of lipomas. What are the signs or symptoms? A lipoma usually appears as a small, round bump under the skin. In most cases, the lump will: ??? Feel soft or rubbery. ??? Not cause pain or other symptoms. However, if a lipoma is located in an area where it pushes on nerves, it can become painful or cause other symptoms. How is this diagnosed? A lipoma can usually be diagnosed with a physical exam. You may also have tests to confirm the diagnosis and to rule out other conditions. Tests may include: ??? Imaging tests, such as a CT scan or an MRI. ??? Removal of a tissue sample to be looked at under a microscope (biopsy). How is this treated? Treatment for this condition depends on the size of the lipoma and whether it is causing any symptoms. ??? For small lipomas that are not causing problems, no treatment is needed. ??? If a lipoma is bigger or it causes problems, surgery may be done to remove the lipoma. Lipomas can also be removed to improve appearance. Most often, the procedure is done after applying a medicine that numbs the area (local anesthetic). ??? Liposuction may be done to reduce the size of the lipoma before it is removed through surgery, or it may be done to remove the lipoma. Lipomas are removed with this method to limit incision size and scarring. A liposuction tube is inserted through a small incision into the lipoma, and the contents of the lipoma are removed through the tube with suction. Follow these instructions at home: ??? Watch your lipoma for any changes. ??? Keep all follow-up visits. This is important. Where to find more information ??? OrthoInfo: orthoinfo.aaos.org Contact a health care provider if: ??? Your lipoma becomes larger or hard. ??? Your lipoma becomes painful, red, or increasingly swollen. These could be signs of infection or a more serious condition. Get help right away if: ??? You develop tingling or numbness in an area near the lipoma. This could indicate that the lipoma is causing nerve damage. Summary ??? A lipoma is a noncancerous tumor that is made up of fat cells. ??? Most lipomas do not cause problems and do not require treatment. ??? If a lipoma is bigger or it causes problems, surgery may be done to remove the lipoma. ??? Contact a health care provider if your lipoma becomes larger or hard, or if it becomes painful, red, or increasingly swollen. These could be signs of infection or a more serious condition. This information is not intended to replace advice given to you by your health care provider. Make sure you discuss any questions you have with your health care provider. Document Revised: 05/27/2022 Document Reviewed: 05/27/2022 [employer] Patient Education ? 2023 [employer].Nephrology Acute Kidney Injury, Adult Acute kidney injury is a sudden decrease in the ability of the kidneys to do what they are supposed to do. The kidneys are a pair of organs that: ??? Make urine. ??? Make hormones. ??? Keep the right amount of fluids and chemicals in the body. This condition ranges from mild to severe. Over time, it may turn into long-term (chronic) kidney disease. Finding and treating the injury early may keep it from turning into chronic kidney disease. What are the causes? Common causes of this condition include: ??? A problem with blood flow to the kidneys. This may be caused by: ? Low blood pressure, shock, or severe dehydration. ? Severe blood loss. ? Heart and blood vessel disease. ? Severe huerta. ? Liver disease. ??? Direct damage to the kidneys. This may be caused by: ? Certain medicines or toxins. ? Kidney disease. ? Contrast dye used in imaging tests. ? An infection of the kidney or bloodstream. ? Problems from surgery. ? Trauma to the kidney area. ? Organ failure. This includes heart or liver failure. ??? A sudden block in urine flow. This may be caused by: ? Cancer. ? Kidney stones. ? An enlarged prostate. What increases the risk? You may be more likely to develop this condition if: ??? You are older than 65 years of age. ??? You are female. ??? You are in the hospital. You may be even more at risk if you are very sick. ??? You have certain conditions. These may include: ? Chronic kidney or liver disease. ? Diabetes. ? Heart disease and heart failure. ? Lung disease. What are the signs or symptoms? This condition may not cause symptoms until it becomes severe. If it does, symptoms may include: ??? Feeling very tired or having trouble staying awake. ??? Nausea or vomiting. ??? Swelling (edema) of the face, legs, ankles, or feet. ??? Pain in your abdomen, back, or along the side of your back (flank). ??? Urine changes. You may: ? Make little or no urine. ? Pass urine with a weak flow. ??? Muscle twitches and cramps. These are most often in the legs. ??? Confusion or trouble focusing. ??? Not feeling the urge to eat. ??? Fever. How is this diagnosed? This condition may be diagnosed based on your symptoms and your medical history. You may have a physical exam done. You may also have tests, such as: ??? Blood tests. ??? Urine tests. ??? Imaging tests. ??? A kidney biopsy. This is when a sample of kidney tissue is removed and looked at under a microscope. How is this treated? Treatment depends on the cause and how severe the condition is. In mild cases, treatment may not be needed. The kidneys may heal on their own. In severe cases, treatment may include: ??? Treating the cause of the kidney injury. This may mean that you have to change your medicines or the doses you take. ??? Getting fluids through an IV tube. ??? Having a flexible tube (catheter) put in. This tube will drain urine and prevent blockages. ??? Trying to keep problems from starting. This may mean not using certain medicines or not having tests done that could cause more injury. In some cases, you may also need: ??? Dialysis or continuous renal replacement therapy (CRRT). This treatment uses a machine to do the job of the kidneys. ??? Surgery. This may be done to repair a damaged kidney. It could also be done to remove a blockage in the urinary tract. Follow these instructions at home: Medicines ??? Take fhxt-pyf-ndhdipx and prescription medicines only as told by your health care provider. ??? Do not take new medicines unless approved by your health care provider. Many medicines can make kidney damage worse. ??? Do not take vitamin or mineral supplements unless approved by your health care provider. Some of these can make kidney damage worse. Lifestyle ??? Make changes to your diet as told by your health care provider. You may need to eat less protein. ??? Get to, and stay at, a healthy weight. If you need help, ask your health care provider. ??? Start or keep up an exercise plan. Exercise at least 30 minutes a day, 5 days a week. ??? Do not use any products that contain nicotine or tobacco. These products include cigarettes, chewing tobacco, and vaping devices, such as e-cigarettes. If you need help quitting, ask your health care provider. General instructions ??? Keep track of your blood pressure. Tell your health care provider if you notice any changes. ??? Keep your vaccines up to date. Ask your health care provider which vaccines you need. ??? Keep all follow-up visits. Your health care provider will need to monitor your kidneys. Where to find support ??? [place] [employer] of Kidney Patients: aakp.org ??? [place] [employer]: akfinc.org Where to find more information ??? National Kidney Foundation: kidney.org ??? Medical Education [place]: ? LifeOptions: lifeoptions.org ? Kidney School: kidneyschool.org Contact a health care provider if: ??? Your symptoms get worse. ??? You have new symptoms, such as: ? Headaches. ? Skin that is darker or associate accountant than normal. ? Easy bruising. ? Feeling itchy. ? Hiccups. ? Lack of menstrual periods. ??? You have a fever. Get help right away if: ??? You have signs of severe kidney disease, such as: ? Chest pain. ? Shortness of breath. ? Seizures. ??? You have pain or bleeding when you pass urine. ??? You make little or no urine. These symptoms may be an emergency. Get help right away. Call 911. ??? Do not wait to see if the symptoms will go away. ??? Do not drive yourself to the hospital. This information is not intended to replace advice given to you by your health care provider. Make sure you discuss any questions you have with your health care provider. Document Revised: 11/25/2022 Document Reviewed: 11/25/2022 [employer] Patient Education ? 2023 [employer]Neurology Restless Legs Syndrome Restless legs syndrome is a condition that causes uncomfortable feelings or sensations in the legs, especially while sitting or lying down. The sensations usually cause an overwhelming urge to move the legs. The arms can also sometimes be affected. The condition can range from mild to severe. The symptoms often interfere with a person's ability to sleep. What are the causes? The cause of this condition is not known. What increases the risk? The following factors may make you more likely to develop this condition: ??? Being older than 50. ??? . ??? Being a woman. In general, the condition is more common in women than in men. ??? A family history of the condition. ??? Having iron deficiency. ??? Overuse of caffeine, nicotine, or alcohol. ??? Certain medical conditions, such as kidney disease, Parkinson's disease, or nerve damage. ??? Certain medicines, such as those for high blood pressure, nausea, colds, allergies, depression, and some heart conditions. What are the signs or symptoms? The main symptom of this condition is uncomfortable sensations in the legs, such as: ??? Pulling. ??? Tingling. ??? Prickling. ??? Throbbing. ??? Crawling. ??? Burning. Usually, the sensations: ??? Affect both sides of the body. ??? Are worse when you sit or lie down. ??? Are worse at night. These may make it difficult to fall asleep. ??? Make you have a strong urge to move your legs. ??? Are temporarily relieved by moving your legs or standing. The arms can also be affected, but this is rare. People who have this condition often have tiredness during the day because of their lack of sleep at night. How is this diagnosed? This condition may be diagnosed based on: ??? Your symptoms. ??? Blood tests. In some cases, you may be monitored in a sleep lab by a specialist (a sleep study). This can detect any disruptions in your sleep. How is this treated? This condition is treated by managing the symptoms. This may include: ??? Lifestyle changes, such as exercising, using relaxation techniques, and avoiding caffeine, alcohol, or tobacco. ??? Iron supplements. ??? Medicines. Parkinson's medications may be tried first. Anti-seizure medications can also be helpful. Follow these instructions at home: General instructions ??? Take sklj-oil-oqstinv and prescription medicines only as told by your health care provider. ??? Use methods to help relieve the uncomfortable sensations, such as: ? Massaging your legs. ? Walking or stretching. ? Taking a cold or hot bath. ??? Keep all follow-up visits. This is important. Lifestyle ??? Practice good sleep habits. For example, go to bed and get up at the same time every day. Most adults should get 7?9 hours of sleep each night. ??? Exercise regularly. Try to get at least 30 minutes of exercise most days of the week. ??? Practice ways of relaxing, such as yoga or meditation. ??? Avoid caffeine and alcohol. ??? Do not use any products that contain nicotine or tobacco. These products include cigarettes, chewing tobacco, and vaping devices, such as e-cigarettes. If you need help quitting, ask your health care provider. Where to find more information ??? National [place] of Neurological Disorders and Stroke: www.ninds.nih.gov Contact a health care provider if: ??? Your symptoms get worse or they do not improve with treatment. Summary ??? Restless legs syndrome is a condition that causes uncomfortable feelings or sensations in the legs, especially while sitting or lying down. ??? The symptoms often interfere with your ability to sleep. ??? This condition is treated by managing the symptoms. You may need to make lifestyle changes or take medicines. This information is not intended to replace advice given to you by your health care provider. Make sure you discuss any questions you have with your health care provider. Document Revised: 12/19/2021 Document Reviewed: 12/19/2021 [employer] Patient Education ? 2023 [employer].Pulmonary Medicine Health Risks of Smoking Smoking tobacco is [...] is absorbed quickly into your bloodstream through your lungs. Both inhaled and non-inhaled nicotine may be addictive. How can quitting affect me? There are health benefits of quitting smoking. Some benefits happen right away and others take time. Benefits may include: ??? Blood flow, blood pressure, heart rate, and lung capacity may begin to improve. However, any lung damage that has already occurred cannot be repaired. ??? Respiratory symptoms from smoking, such as nasal congestion and cough, may improve over time. ??? Your risk of heart disease, stroke, and cancer is reduced. ??? The overall quality of your health may improve. ??? You may save money, as you will not spend money on tobacco products and may spend less money on smoking-related health issues. What can increase my risk? Smoking harms nearly every organ in the body. People who smoke tobacco have a shorter life expectancy and an increased risk of many serious medical problems. These include: ??? More respiratory infections, such as colds and pneumonia. ??? Cancer. ??? Heart disease. ??? Stroke. ??? Chronic respiratory diseases. ??? Delayed wound healing and increased risk of complications during surgery. ??? Problems with reproduction, , and childbirth, such as infertility, early (premature) births, stillbirths, and defects. Secondhand smoke exposure to children increases the risk of: ??? Sudden syndrome (SIDS). ??? Infections in the nose, throat, or airways (respiratory infections). ??? Chronic respiratory symptoms. What actions can I take to quit? Smoking is an addiction that affects both your body and your mind, and long-time habits can be hard to change. Your health care provider can recommend: ??? Nicotine replacement products, such as patches, gum, and nasal sprays. Use these products only as directed. Do not replace cigarette smoking with electronic cigarettes, which are commonly called e-cigarettes. The safety of e-cigarettes is not known, and some may contain harmful chemicals. ??? Programs and community resources, which may include group support, education, or talk therapy. ??? Prescription medicines to help reduce cravings. ??? A combination of two or more quit methods, which may increase the success of quitting. Where to find support Follow the recommendations from your health care provider about support groups and other assistance. You can also visit: ??? U.S. Department of Health and Human Services: www.smokefree.gov ??? [place] [employer] Association: www.freedomfromsmoking.org ??? [place] Heart Association: www.heart.org Where to find more information ??? Centers for Disease Control and Prevention: www.cdc.gov ??? World Health Organization: www.who.int Summary ??? Smoking tobacco is very bad for your health. Tobacco smoke contains many toxic chemicals that can damage every part of the body. ??? Smoking is difficult to quit because a chemical in tobacco, called nicotine, causes addiction or dependence. ??? There are immediate and long-term health benefits of quitting smoking. ??? A combination of two or more quit methods may increase the success of quitting. This information is not intended to replace advice given to you by your health care provider. Make sure you discuss any questions you have with your health care provider. Document Revised: 05/10/2022 Document Reviewed: 05/10/2022 [employer] ([employer]) Patient Education ? 2023 [employer] AMBULATORY VISIT SUMMARY Observed: 06/04 3:27 PM Status: F Source: [facility] Ambulatory Visit Summary JEANCARLOS PERDUEDONALD Burdick :1960 Visit Date:06/04/2024 Ambulatory Visit Instructions Your Diagnosis SANDEEP (acute kidney injury) Hypovolemic shock Ileostomy present Cigarette nicotine dependence Overweight BMI 26.0-26.9,adult Your Care Team Attending Physician - Curt AQUINO, BERNARD-Beth JONES Primary Care Physician - Curt AQUINO, BERNARD-Beth JONES. This Is Your Medications List nicotine (nicotine 14 mg/24 hr Transderm ER Film) ropinirole (ropinirole 2 mg Tab) Contact prescribing physician if questions or concerns Misc Prescription (baclofen 10 mg tablet) Misc Prescription (brava protective seal - # 69519) Misc Prescription (xproconvex light -#[id number]) Misc Prescription (xproconvex light -#[id number]) acetaminophen-oxycodone (acetaminophen-oxycodone 325 mg-5 mg Tab) atorvastatin (atorvastatin 20 mg Tab) baclofen (baclofen 10 mg Tab) buPROPion (buPROPion 150 mg ER Tab) cilostazol (cilostazol 100 mg Tab) clopidogrel (Plavix 75 mg Tab) gabapentin (gabapentin 600 mg Tab) gabapentin (gabapentin 800 mg Tab) metoprolol (Metoprolol succinate 25 mg ER Tablet) pantoprazole (Protonix 40 mg Tab-DR) tamsulosin (tamsulosin 0.4 mg Cap) Procedures Performed Injection of facet joint using [...] steroid injection. Discharge Vitals Temperature (Temporal Artery) 36.7 ???C Heart Rate (Peripheral) 76 Respiratory Rate 18 Blood Pressure 126/68 Height 176 cm Height 69 in Weight 82.5 kg Weight 181.881 lb BMI 26.63 What to do next Scheduled Follow-Up Appointments Monday 7:20 AM EDT With: Curt AQUINO, Beth HARLEY Where: [facility] [address] [place] [address]- You Need to Schedule the Following Appointments Follow Up with Curt AQUINO, Beth HARLEY When: Only if needed Where: [address] [place] [id number] Medications What How Much When Why Instructions Changed nicotine (nicotine 14 mg/ 24 hr Transderm ER Film) 1 Patches Transdermal Every day Duration: 21 Days Apply 1 patch daily as directed Pickup at [facility] Changed ropinirole (ropinirole 2 mg Tab) 1 Tablets By Mouth At bedtime Duration: 30 Days Pickup at [facility] Unchanged acetaminophen-oxycodone (acetaminophen-oxycodone 325 mg-5 mg Tab) 1 Tablets By Mouth 4 times a day Contact prescribing physician if [...] concerns Unchanged cilostazol (cilostazol 100 mg Tab) See instructions Take one tablet twice a day Contact prescribing physician if questions or concerns Unchanged clopidogrel (Plavix 75 mg Tab) 1 Tablets By Mouth Every day Contact prescribing physician if questions or concerns Unchanged gabapentin (gabapentin 600 mg Tab) 1 Tablets By Mouth 3 times a day Contact prescribing physician if questions or concerns Unchanged gabapentin (gabapentin 800 mg Tab) 1 Tablets By Mouth 3 times a day Contact prescribing physician if questions or concerns Unchanged metoprolol (Metoprolol succinate 25 mg ER Tablet) Contact prescribing physician if questions or concerns Unchanged Misc Prescription (baclofen 10 mg tablet) 0 Contact prescribing physician if questions or concerns Unchanged Misc Prescription (brava protective seal - # [id number]) See instructions Colostomy present use with colostomy, change daily Contact prescribing physician if questions or concerns Unchanged Misc Prescription (xproconvex light -#[id number]) See instructions Colostomy present change colostomy bag daily. Contact prescribing physician if questions or concerns Unchanged Misc Prescription (xproconvex light -#[id number]) See instructions Colostomy present change colostomy bag daily. Contact prescribing physician if questions or concerns Unchanged pantoprazole (Protonix 40 mg Tab-DR) 1 Tablets By Mouth Every day Contact prescribing physician if questions or concerns Unchanged tamsulosin (tamsulosin 0.4 mg Cap) 1 Capsules Contact prescribing physician if questions or concerns Pharmacy Information [facility]: [address] [place], [place] [id number] [phone] Allergies No Known Allergies No Known Medication Allergies Problems Ongoing - Any problem that you are currently receiving treatment for. AAA (abdominal aortic aneurysm) Actinic keratoses SANDEEP (acute kidney injury) Anticoagulated Benign essential HTN Cigarette nicotine dependence Combined hyperlipidemia Constipation Diverticulitis of colon Embolism of iliac artery GERD (gastroesophageal reflux disease) History of diverticular abscess of colon Hypocalcemia Hypovolemic shock Ileostomy present Intermittent claudication of left lower extremity due to atherosclerosis Kidney stone on left side Lumbar radiculopathy Overweight PAD (peripheral artery disease) Pain in joint, multiple sites Restless leg syndrome S/P colon resection S/P splenectomy Sacroiliitis Sciatica Historical - Any problem that you are no longer receiving treatment for. Smoker Patient Survey You may receive a survey via text or e-mail asking about your office visit. Please share your experience with us by completing your survey. We appreciate your feedback and thank you for choosing us for your care. Education Materials Colostomy Home Guide, Adult A colostomy is a surgically created opening (ostomy) that brings a piece of the large intestine through an opening in the abdomen to create a stoma. The stoma allows stool (feces) and gas (flatus) to leave the body. A stoma may be a variety of shapes and sizes. An ostomy pouch or bag is used to cover the stoma and to contain the stool and gas. A colostomy may be temporary or permanent, depending on the medical reason for your surgery. After surgery, you will need to learn to care for your ostomy. This includes emptying and changing the colostomy bag as needed. There are many different types of bags or pouching options, including one-piece, two-piece, clear, fabric covered, flat or curved (convex), drainable, and closed or vented options. Your health care provider will help you select the best pouch for you. How to care for the stoma Your stoma should look pink, red, and moist, like the inside of your cheek. It should not be painful to touch, but it may bleed easily when rubbed or bumped. Soon after surgery, the stoma may be swollen, but this goes away within 6 weeks. To care for the stoma: ??? Keep the skin around the stoma clean and dry. ??? Use a clean, soft washcloth to gently wash the stoma and the skin around it. Clean using a circular motion, and wipe away from the stoma opening, nottoward it. ? Use warm water and only use cleansers, such as mild soap and stoma-safe adhesive remover, recommended by your health care provider. ? Inspect and dry the skin around the stoma. ??? Use stoma powder or skin protectant on your skin as told by your health care provider. Do not use any other powders, gels, wipes, or creams on the skin around the stoma. These may keep pouch adhesive from sticking or may cause injury to your stoma. ??? Check the stoma area every day for signs of infection or problems. Check for: ? New or worsening redness, warmth, swelling, irritation, itching, or pain around the stoma. ? New or worsening changes to the stoma, such as bleeding, trauma, or a dark and dusky color. ? Changes to the drainage from the stoma, such as pus, blood, a large amount of liquid drainage, or little to no stool drainage. ??? Measure the stoma opening regularly and record the size. Watch for changes, such as the stoma getting longer, becoming flat, or falling below skin level. (It is normal for the stoma to get smaller as the swelling goes away.) Share this information with your health care provider. Changes in the size or shape of the stoma may require a different style of pouch to be used. How to empty the colostomy bag Empty your bag at bedtime, before physical activity or sexual relations, and whenever it is one-third to one-half full. Do not let the bag get more than half-full with stool or gas. The bag could leak if it gets too full. Some colostomy bags have a built-in gas release valve that releases gas often throughout the day. Follow these basic steps for emptying a drainable pouch: 1. Prepare the toilet or container: ??? If draining directly into the toilet, put several pieces of toilet paper into the toilet water. This will prevent splashing as you empty the stool into the toilet. Sit far back on the toilet seat. ??? If draining into a container, place a few pieces of moistened toilet paper in the bottom of the container. This can help when emptying the container. 2. Remove the clip or the txxd-xww-jtbw fastener from the tail end of the bag. 3. Unroll the tail, then empty the stool into the toilet or container. 4. Clean the tail with toilet paper or a moist towelette. 5. Reroll the tail, and close it with the clip or the sjiy-lgs-fyqd fastener. 6. Wash your hands. How to change the colostomy bag Change your bag every 3???4 days or as often as told by your health care provider. Also change the bag if it is leaking or from the skin, or if your skin around the stoma looks or feels irritated. Irritated skin may be a sign that the bag is leaking. Always have colostomy supplies with you, and follow these basic steps: 1. Have paper towels or tissues and a trash bag nearby to clean any discharge and dispose of the soiled pouch. 2. Remove the old pouching appliance. Use your fingers, a warm, moist cloth, or a stoma-safe adhesive remover to gently remove the pouch and remove adhesive residue. 3. Clean the stoma area with water or with mild soap and water, as directed. Use water to rinse away any soap. 4. Dry the skin. You may use the cool setting on a unhairer to do this. 5. Use a tracing pattern (template) to cut the skin barrier to the size needed. The opening should be large enough to fit around the stoma, but you should not see exposed skin. 6. If you are using a two-piece bag, attach the bag and the base to each other. Add the barrier ring, if you use one. 7. If directed, apply stoma powder or skin protectant to the skin. 8. Warm the pouch base with your hands or blow with a unhairer for 5???10 seconds. 9. Remove the paper from the adhesive backing of the pouch base. 10. Press the adhesive backing onto the skin around the stoma. 11. Gently rub the pouch base onto the skin. This creates heat that helps the barrier to stick. 12. Apply barrier strips to the edges of the pouch, if desired. 13. Dispose of the soiled pouch, and wash your hands. General recommendations ??? Avoid wearing tight clothes or having anything press directly on your stoma or bag. Change your clothing whenever it is soiled or damp. ??? You may shower or bathe with the bag on or off. Do not use harsh or oily soaps or lotions. Dry the skin and bag after bathing. Do not shower or bathe right after changing the pouch. Wait 4???5 hours. ??? Store all supplies in a cool, dry place. Do not leave supplies in extreme heat because some parts can melt or not stick as well. ??? Whenever you leave home, take extra clothing and an extra ostomy pouch with you. ??? If your bag gets wet, you can dry it with a unhairer on the cool setting. ??? To prevent odor, you may put drops of ostomy deodorizer in the bag. ??? If recommended by your health care provider, put ostomy lubricant inside the bag. This helps stool slide out of the bag more easily and completely. Contact a health care provider if: ??? You have new or worsening redness, warmth, swelling, irritation, itching, or pain around the stoma. ??? You have new or worsening changes to the stoma, such as bleeding, trauma, or a dark and dusky color. ??? There are changes to the drainage from the stoma, such as pus, blood, a large amount of liquid drainage, or little to no stool drainage. ??? Your stoma extends in or out farther than normal. ??? You need to change your bag every day or have frequent leaks. ??? You have a fever. Get help right away if: ??? Your stool is bloody. ??? You have nausea or you vomit. ??? You have trouble breathing. These symptoms may be an emergency. Get help right away. Call 911. ??? Do not wait to see if the symptoms will go away. ??? Do not drive yourself to the hospital. Summary ??? Measure your stoma opening regularly and record the size. Watch for changes. ??? Empty your bag at bedtime, before physical activity or sexual relations, and whenever it is one-third to one-half full. Do not let the bag get more than half-full with stool or gas. ??? Change your bag every 3???4 days or as often as told by your health care provider. ??? Whenever you leave home, take extra clothing and an extra ostomy pouch with you. This information is not intended to replace advice given to you by your health care provider. Make sure you discuss any questions you have with your health care provider. Document Revised: 05/18/2022 Document Reviewed: 05/18/2022 [employer] Patient Education ??? 2023 [employer]. Acute Kidney Injury, Adult Acute kidney injury is a sudden decrease in the ability of the kidneys to do what they are supposed to do. The kidneys are a pair of organs that: ??? Make urine. ??? Make hormones. ??? Keep the right amount of fluids and chemicals in the body. This condition ranges from mild to severe. Over time, it may turn into long-term (chronic) kidney disease. Finding and treating the injury early may keep it from turning into chronic kidney disease. What are the causes? Common causes of this condition include: ??? A problem with blood flow to the kidneys. This may be caused by: ? Low blood pressure, shock, or severe dehydration. ? Severe blood loss. ? Heart and blood vessel disease. ? Severe huerta. ? Liver disease. ??? Direct damage to the kidneys. This may be caused by: ? Certain medicines or toxins. ? Kidney disease. ? Contrast dye used in imaging tests. ? An infection of the kidney or bloodstream. ? Problems from surgery. ? Trauma to the kidney area. ? Organ failure. This includes heart or liver failure. ??? A sudden block in urine flow. This may be caused by: ? Cancer. ? Kidney stones. ? An enlarged prostate. What increases the risk? You may be more likely to develop this condition if: ??? You are older than 65 years of age. ??? You are female. ??? You are in the hospital. You may be even more at risk if you are very sick. ??? You have certain conditions. These may include: ? Chronic kidney or liver disease. ? Diabetes. ? Heart disease and heart failure. ? Lung disease. What are the signs or symptoms? This condition may not cause symptoms until it becomes severe. If it does, symptoms may include: ??? Feeling very tired or having trouble staying awake. ??? Nausea or vomiting. ??? Swelling (edema) of the face, legs, ankles, or feet. ??? Pain in your abdomen, back, or along the side of your back (flank). ??? Urine changes. You may: ? Make little or no urine. ? Pass urine with a weak flow. ??? Muscle twitches and cramps. These are most often in the legs. ??? Confusion or trouble focusing. ??? Not feeling the urge to eat. ??? Fever. How is this diagnosed? This condition may be diagnosed based on your symptoms and your medical history. You may have a physical exam done. You may also have tests, such as: ??? Blood tests. ??? Urine tests. ??? Imaging tests. ??? A kidney biopsy. This is when a sample of kidney tissue is removed and looked at under a microscope. How is this treated? Treatment depends on the cause and how severe the condition is. In mild cases, treatment may not be needed. The kidneys may heal on their own. In severe cases, treatment may include: ??? Treating the cause of the kidney injury. This may mean that you have to change your medicines or the doses you take. ??? Getting fluids through an IV tube. ??? Having a flexible tube (catheter) put in. This tube will drain urine and prevent blockages. ??? Trying to keep problems from starting. This may mean not using certain medicines or not having tests done that could cause more injury. In some cases, you may also need: ??? Dialysis or continuous renal replacement therapy (CRRT). This treatment uses a machine to do the job of the kidneys. ??? Surgery. This may be done to repair a damaged kidney. It could also be done to remove a blockage in the urinary tract. Follow these instructions at home: Medicines ??? Take [id number] and prescription medicines only as told by your health care provider. ??? Do not take new medicines unless approved by your health care provider. Many medicines can make kidney damage worse. ??? Do not take vitamin or mineral supplements unless approved by your health care provider. Some of these can make kidney damage worse. Lifestyle ??? Make changes to your diet as told by your health care provider. You may need to eat less protein. ??? Get to, and stay at, a healthy weight. If you need help, ask your health care provider. ??? Start or keep up an exercise plan. Exercise at least 30 minutes a day, 5 days a week. ??? Do not use any products that contain nicotine or tobacco. These products include cigarettes, chewing tobacco, and vaping devices, such as e-cigarettes. If you need help quitting, ask your health care provider. General instructions ??? Keep track of your blood pressure. Tell your health care provider if you notice any changes. ??? Keep your vaccines up to date. Ask your health care provider which vaccines you need. ??? Keep all follow-up visits. Your health care provider will need to monitor your kidneys. Where to find support ??? [place] Association [employer] Kidney Patients: aakp.org ??? [place] Kidney Fund: akfinc.org Where to find more information ??? National Kidney Foundation: kidney.org ??? Medical Education [place]: ? LifeOptions: lifeoptions.org ? Kidney School: kidneyschool.org Contact a health care provider if: ??? Your symptoms get worse. ??? You have new symptoms, such as: ? Headaches. ? Skin that is darker or associate accountant than normal. ? Easy bruising. ? Feeling itchy. ? Hiccups. ? Lack of menstrual periods. ??? You have a fever. Get help right away if: ??? You have signs of severe kidney disease, such as: ? Chest pain. ? Shortness of breath. ? Seizures. ??? You have pain or bleeding when you pass urine. ??? You make little or no urine. These symptoms may be an emergency. Get help right away. Call 911. ??? Do not wait to see if the symptoms will go away. ??? Do not drive yourself to the hospital. This information is not intended to replace advice given to you by your health care provider. Make sure you discuss any questions you have with your health care provider. Document Revised: 11/25/2022 Document Reviewed: 11/25/2022 [employer] Patient Education ??? 2023 [employer] Health Risks of Smoking Smoking tobacco is [...] is absorbed quickly into your bloodstream through your lungs. Both inhaled and non-inhaled nicotine may be addictive. How can quitting affect me? There are health benefits of quitting smoking. Some benefits happen right away and others take time. Benefits may include: ??? Blood flow, blood pressure, heart rate, and lung capacity may begin to improve. However, any lung damage that has already occurred cannot be repaired. ??? Respiratory symptoms from smoking, such as nasal congestion and cough, may improve over time. ??? Your risk of heart disease, stroke, and cancer is reduced. ??? The overall quality of your health may improve. ??? You may save money, as you will not spend money on tobacco products and may spend less money on smoking-related health issues. What can increase my risk? Smoking harms nearly every organ in the body. People who smoke tobacco have a shorter life expectancy and an increased risk of many serious medical problems. These include: ??? More respiratory infections, such as colds and pneumonia. ??? Cancer. ??? Heart disease. ??? Stroke. ??? Chronic respiratory diseases. ??? Delayed wound healing and increased risk of complications during surgery. ??? Problems with reproduction, , and childbirth, such as infertility, early (premature) births, stillbirths, and defects. Secondhand smoke exposure to children increases the risk of: ??? Sudden infant syndrome (SIDS). ??? Infections in the nose, throat, or airways (respiratory infections). ??? Chronic respiratory symptoms. What actions can I take to quit? Smoking is an addiction that affects both your body and your mind, and long-time habits can be hard to change. Your health care provider can recommend: ??? Nicotine replacement products, such as patches, gum, and nasal sprays. Use these products only as directed. Do not replace cigarette smoking with electronic cigarettes, which are commonly called e-cigarettes. The safety of e-cigarettes is not known, and some may contain harmful chemicals. ??? Programs and community resources, which may include group support, education, or talk therapy. ??? Prescription medicines to help reduce cravings. ??? A combination of two or more quit methods, which may increase the success of quitting. Where to find support Follow the recommendations from your health care provider about support groups and other assistance. You can also visit: ??? U.S. Department of Health and Human Services: www.smokefree.gov ??? [place] Lung Association: www.freedomfromsmoking.org ??? [place] Heart Association: www.heart.org Where to find more information ??? Centers for Disease Control and Prevention: www.cdc.gov ??? World Health Organization: www.who.int Summary ??? Smoking tobacco is very bad for your health. Tobacco smoke contains many toxic chemicals that can damage every part of the body. ??? Smoking is difficult to quit because a chemical in tobacco, called nicotine, causes addiction or dependence. ??? There are immediate and long-term health benefits of quitting smoking. ??? A combination of two or more quit methods may increase the success of quitting. This information is not intended to replace advice given to you by your health care provider. Make sure you discuss any questions you have with your health care provider. Document Revised: 05/10/2022 Document Reviewed: 05/10/2022 [employer] Patient Education ??? 2023 [employer]. POPULATION HEALTH Observed: 05/27/2024 11:18 AM Status: F Source: [facility] Case Information Case Priority: None Programs: -- Referral Source: Emergency Planning And Response Manager Referral Reason: Care coordination Case Type: Transition Care Management Risk Score: -- Case Status: Enrolled (April 26, 2024) Date Assigned: April 26, 2024 Assigned By: Mylene Ledesma RN Date Enrolled: April 26, 2024 Assigned Primary Personnel: Alla Osuna R.N. Assigned Secondary Personnel: -- Case Physician: Curt MSN, CONCRETE VIBRATOR OPERATOR-ROBERT, Beth Dash Problems Ongoing AAA (abdominal aortic aneurysm) Actinic keratoses SANDEEP (acute kidney injury) Anticoagulated Benign essential HTN Cigarette nicotine dependence Combined hyperlipidemia Constipation Diverticulitis of colon Embolism of iliac artery GERD (gastroesophageal reflux disease) History of diverticular abscess of colon Hypocalcemia Hypovolemic shock Ileostomy present Intermittent claudication of left lower extremity due to atherosclerosis Kidney stone on left side Lumbar radiculopathy PAD (peripheral artery disease) Pain in joint, multiple sites Restless leg syndrome S/P colon resection S/P splenectomy Sacroiliitis Sciatica Historical Smoker Procedure/Surgical History Injection of facet joint using fluoroscopic guidance [...] left flank area, transforaminal epidural steroid injection. Home Medications acetaminophen-oxycodone 325 mg-5 mg Tab, 1 tab(s), Oral, QID atorvastatin 20 mg Tab, 20 mg= 1 tab(s), Oral, Daily, 3 refills baclofen 10 mg Tab, 10 mg= 1 tab(s), Oral, TID, PRN baclofen 10 mg tablet, 0 buPROPion 150 mg ER Tab, 150 mg= 1 tab(s), Oral, BID, 11 refills cilostazol 100 mg Tab, See Instructions, 3 refills colostomy bag: xproconvex [id number]., See Instructions, 6 refills gabapentin 600 mg Tab, 600 mg= 1 tab(s), Oral, TID gabapentin 800 mg Tab, 800 mg= 1 tab(s), Oral, TID Metoprolol succinate 25 mg ER Tablet nicotine 14 mg/24 hr Transderm ER Film nicotine 21 mg/24 hr Transderm ER Film, 1 patch(es), Topical, Daily Plavix 75 mg Tab, 75 mg= 1 tab(s), Oral, Daily Protonix 40 mg Tab-DR, 40 mg= 1 tab(s), Oral, Daily, 3 refills ropinirole 1 mg Tab, 1 mg= 1 tab(s), Oral, Daily, 1 refills Seals brava protective seals- [id number], See Instructions, 6 refills tamsulosin 0.4 mg Cap, 0.4 mg= 1 cap(s) Allergies No Known Allergies No Known Medication Allergies Social History Alcohol - Denies Alcohol Use, 04/27/2022 Past, Beer, 08/06/2020 Employment/School 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 Never Smokeless Tobacco Use:. Cigarettes, 1 per day. 47 year(s). Started age 11.0 Years. Previous treatment: None. Ready to change: No. Yes, 02/28/2024 10 or more cigarettes (1/2 pack or more)/day in last 30 days Tobacco Use:., 02/10/2023 Family History Alcoholism: Father. Arthritis: Mother. Cancer: Mother and Father. Screenings and Assessments 04/26/24 11:08:00 Result Name Value Comment Phone Call Monitoring Consent Agreed to continue call Phone Verification Patient Information Full name, street address and date of verified CM Program Enrollment Provides verbal consent for enrollment Goals and Interventions Care Plan Progress Note [facility] #3 [id number] 8 min. Notified patient of discussion with PCP and ostomy supplies encouraged to reach out to [facility] to see if they have any solutions since they are more familiar with different supplies and options. If this is unsuccessful encouraged patient to discuss alternative options with insurance company. Acknowledges understanding. Patient is in process of speaking to ostomy nurse at [facility] as directed by [facility]. Communication Events Date: May 27, 2024 Method: Phone call Type: Outbound Duration (min): 8 Outcome: Case discussion Contact Type: Patient Contact Name: DENVER PERDUE Notes: tcm #7 see ft summary note Created By: Alla Osuna R.N. Date: May 27, 2024 Method: Phone call Type: Outbound Duration (min): 5 Outcome: Case discussion Contact Type: Patient Contact Name: DENVER PERDUE Notes: tcm #7 see ft summary note Created By: Alla Osuna R.N. Date: May 23, 2024 Method: Phone call Type: Outbound Duration (min): 1 Outcome: Left message-voicemail Contact Type: sourcing coordinator Contact Name: Alla Osuna R.N. Notes: miley #5 LVM asking for return call Created By: Alla Osuna R.N. Date: May 21, 2024 Method: Phone call Type: Outbound Duration (min): 14 Outcome: Case discussion Contact Type: Patient Contact Name: DENVER PERDUE Notes: tcm #4 see ft summary note Created By: Alla Osuna R.N. Date: May 13, 2024 Method: Phone call Type: Outbound Duration (min): 7 Outcome: Case discussion Contact Type: Patient Contact Name: DENVER PERDUE Notes: tcm #3 see ft summary note Created By: Alla Osuna R.N. Date: May 07, 2024 Method: Phone call Type: Outbound Duration (min): 7 Outcome: Case discussion Contact Type: Patient Contact Name: DENVER PERDUE Notes: tcm #2 see ft summary note Created By: Alla Osuna R.N. Date: April 26, 2024 Method: Phone call Type: Outbound Duration (min): 11 Outcome: Case discussion Contact Type: Patient Contact Name: DENVER PERDUE Notes: TCM #1 - Spoke with patient for initial TCM program call; Patient Summary sent to PCP. Created By: Mylene Ledesma RN Date: April 24, 2024 Method: Phone call Type: Outbound Duration (min): 8 Outcome: Case discussion Contact Type: Patient Contact Name: DENVER PERDUE Notes: tcm #1 see ft summary note Created By: Alla Osuna R.N. [facility] Observed: 05/27/2024 10:51 AM Status: F Source: [facility] Case Information Case Priority: None Programs: -- Referral Source: Emergency Planning And Response Manager Referral Reason: Care coordination Case Type: Transition Care Management Risk Score: -- Case Status: Enrolled (April 26, 2024) Date Assigned: April 26, 2024 Assigned By: Baltazar MENON, Mylene Reese Date Enrolled: April 26, 2024 Assigned Primary Personnel: Alla Osuna R.N. Assigned Secondary Personnel: -- Case Physician: Curt MSN, CONCRETE VIBRATOR OPERATOR-POLYMER MATERIALS CONSULTANT, Beth Dash Problems Ongoing AAA (abdominal aortic aneurysm) Actinic keratoses SANDEEP (acute kidney injury) Anticoagulated Benign essential HTN Cigarette nicotine dependence Combined hyperlipidemia Constipation Diverticulitis of colon Embolism of iliac artery GERD (gastroesophageal reflux disease) History of diverticular abscess of colon Hypocalcemia Hypovolemic shock Ileostomy present Intermittent claudication of left lower extremity due to atherosclerosis Kidney stone on left side Lumbar radiculopathy PAD (peripheral artery disease) Pain in joint, multiple sites Restless leg syndrome S/P colon resection S/P splenectomy Sacroiliitis Sciatica Historical Smoker Procedure/Surgical History Injection of facet joint using fluoroscopic guidance [...] left flank area, transforaminal epidural steroid injection. Home Medications acetaminophen-oxycodone 325 mg-5 mg Tab, 1 tab(s), Oral, QID atorvastatin 20 mg Tab, 20 mg= 1 tab(s), Oral, Daily, 3 refills baclofen 10 mg Tab, 10 mg= 1 tab(s), Oral, TID, PRN baclofen 10 mg tablet, 0 buPROPion 150 mg ER Tab, 150 mg= 1 tab(s), Oral, BID, 11 refills cilostazol 100 mg Tab, See Instructions, 3 refills colostomy bag: xproconvex [id number]., See Instructions, 6 refills gabapentin 600 mg Tab, 600 mg= 1 tab(s), Oral, TID gabapentin 800 mg Tab, 800 mg= 1 tab(s), Oral, TID Metoprolol succinate 25 mg ER Tablet nicotine 14 mg/24 hr Transderm ER Film nicotine 21 mg/24 hr Transderm ER Film, 1 patch(es), Topical, Daily Plavix 75 mg Tab, 75 mg= 1 tab(s), Oral, Daily Protonix 40 mg Tab-DR, 40 mg= 1 tab(s), Oral, Daily, 3 refills ropinirole 1 mg Tab, 1 mg= 1 tab(s), Oral, Daily, 1 refills Seals brava protective seals- [id number], See Instructions, 6 refills tamsulosin 0.4 mg Cap, 0.4 mg= 1 cap(s) Allergies No Known Allergies No Known Medication Allergies Social History Alcohol - Denies Alcohol Use, 04/27/2022 Past, Beer, 08/06/2020 Employment/School 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 Never Smokeless Tobacco Use:. Cigarettes, 1 per day. 47 year(s). Started age 11.0 Years. Previous treatment: None. Ready to change: No. Yes, 02/28/2024 10 or more cigarettes (1/2 pack or more)/day in last 30 days Tobacco Use:., 02/10/2023 Family History Alcoholism: Father. Arthritis: Mother. Cancer: Mother and Father. Screenings and Assessments 04/26/24 11:08:00 Result Name Value Comment Phone Call Monitoring Consent Agreed to continue call Phone Verification Patient Information Full name, street address and date of verified CM Program Enrollment Provides verbal consent for enrollment Goals and Interventions Care Plan Progress Note tcm #7 [phone] 5 min Returned Patient call regarding ostomy supplies. Patient continue to have difficulty obtaining supplies. His insurance is not accepted locally at any of the DME suppliers that carry his specific ostomy supplies and DM no longer orders supplies. Patient will check with hospital and CN will check with PCP to see if alternative supplies can be ordered. Patient indicates everything else is going good. Denies abdominal pain,or bloating. Denies difficulty attaching bag. Kelvin s/s of infection, fever, CP, SOB, difficulty eating, drinking, swallowing, or sleeping. Denies trouble with bladder. Denies other concerns. Communication Events Date: May 27, 2024 Method: Phone call Type: Outbound Duration (min): 5 Outcome: Case discussion Contact Type: Patient Contact Name: DENVER PERDUE Notes: tcm #7 see ft summary note Created By: Alla Osuna R.N. Date: May 23, 2024 Method: Phone call Type: Outbound Duration (min): 1 Outcome: Left message-voicemail Contact Type: sourcing coordinator Contact Name: Alla Osuna R.N. Notes: tcm #5 LVM asking for return call Created By: Alla Osuna R.N. Date: May 21, 2024 Method: Phone call Type: Outbound Duration (min): 14 Outcome: Case discussion Contact Type: Patient Contact Name: DENVER PERDUE Notes: tcm #4 see ft summary note Created By: Alla Osuna R.N. Date: May 13, 2024 Method: Phone call Type: Outbound Duration (min): 7 Outcome: Case discussion Contact Type: Patient Contact Name: DENVER PERDUE Notes: tcm #3 see ft summary note Created By: Alla Osuna R.N. Date: May 07, 2024 Method: Phone call Type: Outbound Duration (min): 7 Outcome: Case discussion Contact Type: Patient Contact Name: DENVER PERDUE Notes: tcm #2 see ft summary note Created By: Alla Osuna R.N. Date: April 26, 2024 Method: Phone call Type: Outbound Duration (min): 11 Outcome: Case discussion Contact Type: Patient Contact Name: DENVER PERDUE Notes: TCM #1 - Spoke with patient for initial TCM program call; Patient Summary sent to PCP. Created By: Mylene Ledesma RN Date: April 24, 2024 Method: Phone call Type: Outbound Duration (min): 8 Outcome: Case discussion Contact Type: Patient Contact Name: DENVER PERDUE Notes: tcm #1 see ft summary note Created By: Alla Osuna R.N. POPULATION HEALTH Observed: 05/21/2024 10:52 AM Status: F Source: [facility] Population Health Case Information No case details exist for the encounter. Problems Ongoing AAA (abdominal aortic aneurysm) Actinic keratoses SANDEEP (acute kidney injury) Anticoagulated Benign essential HTN Cigarette nicotine dependence Combined hyperlipidemia Constipation Diverticulitis of colon Embolism of iliac artery GERD (gastroesophageal reflux disease) History of diverticular abscess of colon Hypocalcemia Hypovolemic shock Ileostomy present Intermittent claudication of left lower extremity due to atherosclerosis Kidney stone on left side Lumbar radiculopathy PAD (peripheral artery disease) Pain in joint, multiple sites Restless leg syndrome S/P colon resection S/P splenectomy Sacroiliitis Sciatica Historical Smoker Procedure/Surgical History Injection of facet joint using fluoroscopic guidance [...] left flank area, transforaminal epidural steroid injection. Home Medications acetaminophen-oxycodone 325 mg-5 mg Tab, 1 tab(s), Oral, QID atorvastatin 20 mg Tab, 20 mg= 1 tab(s), Oral, Daily, 3 refills baclofen 10 mg Tab, 10 mg= 1 tab(s), Oral, TID, PRN baclofen 10 mg tablet, 0 buPROPion 150 mg ER Tab, 150 mg= 1 tab(s), Oral, BID, 11 refills cilostazol 100 mg Tab, See Instructions, 3 refills gabapentin 600 mg Tab, 600 mg= 1 tab(s), Oral, TID gabapentin 800 mg Tab, 800 mg= 1 tab(s), Oral, TID Metoprolol succinate 25 mg ER Tablet nicotine 14 mg/24 hr Transderm ER Film nicotine 21 mg/24 hr Transderm ER Film, 1 patch(es), Topical, Daily Plavix 75 mg Tab, 75 mg= 1 tab(s), Oral, Daily Protonix 40 mg Tab-DR, 40 mg= 1 tab(s), Oral, Daily, 3 refills ropinirole 1 mg Tab, 1 mg= 1 tab(s), Oral, Daily, 1 refills tamsulosin 0.4 mg Cap, 0.4 mg= 1 cap(s) Allergies No Known Allergies No Known Medication Allergies Social History Alcohol - Denies Alcohol Use, 04/27/2022 Past, Beer, 08/06/2020 Employment/School 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 Never Smokeless Tobacco Use:. Cigarettes, 1 per day. 47 year(s). Started age 11.0 Years. Previous treatment: None. Ready to change: No. Yes, 02/28/2024 10 or more cigarettes (1/2 pack or more)/day in last 30 days Tobacco Use:., 02/10/2023 Family History Alcoholism: Father. Arthritis: Mother. Cancer: Mother and Father. Screenings and Assessments 04/30/24 14:54:00 Result Name Value Comment Little Interest - Pleasure in Activities Not at all Feeling Down, Depressed, Hopeless Not at all Initial Depression Screen Score 0 SCORE Goals and Interventions Care Plan Progress Note tcm #4 1034 14 min Patient states I'm doing pretty good. Patient denies abdominal pain. Continues to experiment with what food he can eat. To keep stool at an appropriate consistency. Patient is attempting to maintain a low fiber diet as directed. Continues to have difficulty getting ostomy supples. DM-N can order supplies for patient per patient. Sent supply names and number of supplies to PCP so can send an order to drugstore. Denies CP, SOB, trouble eating, drinking, swallowing, sleeping, or with bladder. Denies concerns. Communication Events Date: May 21, 2024 Method: Phone call Type: Outbound Duration (min): 14 Outcome: Case discussion Contact Type: Patient Contact Name: DENVER PERDUE Notes: tcm #4 see ft summary note Created By: Alla Osuna R.N. Date: May 13, 2024 Method: Phone call Type: Outbound Duration (min): 6 Outcome: Case discussion Contact Type: Patient Contact Name: DENVER PERDUE Notes: tcm #3 see summary note Created By: Alla Osuna R.N. Date: May 07, 2024 Method: Phone call Type: Outbound Duration (min): 7 Outcome: Case discussion Contact Type: Patient Contact Name: DENVER PERDUE Notes: tcm # 2 see ft summary note Created By: Alla Osuna R.N. Date: April 24, 2024 Method: Phone call Type: Outbound Duration (min): 8 Outcome: Case discussion Contact Type: Patient Contact Name: DENVER PERDUE Notes: tcm #1 see ft summary note Created By: Alla Osuna R.N. [facility] Observed: 05/13/2024 12:27 PM Status: F Source: [facility] Population Health Case Information No case details exist for the encounter. Problems Ongoing AAA (abdominal aortic aneurysm) Actinic keratoses SANDEEP (acute kidney injury) Anticoagulated Benign essential HTN Cigarette nicotine dependence Combined hyperlipidemia Constipation Diverticulitis of colon Embolism of iliac artery GERD (gastroesophageal reflux disease) History of diverticular abscess of colon Hypocalcemia Hypovolemic shock Ileostomy present Intermittent claudication of left lower extremity due to atherosclerosis Kidney stone on left side Lumbar radiculopathy PAD (peripheral artery disease) Pain in joint, multiple sites Restless leg syndrome S/P colon resection S/P splenectomy Sacroiliitis Sciatica Historical Smoker Procedure/Surgical History Injection of facet joint using fluoroscopic guidance [...] left flank area, transforaminal epidural steroid injection. Home Medications acetaminophen-oxycodone 325 mg-5 mg Tab, 1 tab(s), Oral, QID atorvastatin 20 mg Tab, 20 mg= 1 tab(s), Oral, Daily, 3 refills baclofen 10 mg Tab, 10 mg= 1 tab(s), Oral, TID, PRN baclofen 10 mg tablet, 0 buPROPion 150 mg ER Tab, 150 mg= 1 tab(s), Oral, BID, 11 refills cilostazol 100 mg Tab, See Instructions, 3 refills gabapentin 600 mg Tab, 600 mg= 1 tab(s), Oral, TID gabapentin 800 mg Tab, 800 mg= 1 tab(s), Oral, TID Metoprolol succinate 25 mg ER Tablet Plavix 75 mg Tab, 75 mg= 1 tab(s), Oral, Daily Protonix 40 mg Tab-DR, 40 mg= 1 tab(s), Oral, Daily, 3 refills ropinirole 1 mg Tab, 1 mg= 1 tab(s), Oral, Daily, 1 refills tamsulosin 0.4 mg Cap, 0.4 mg= 1 cap(s) Allergies No Known Allergies No Known Medication Allergies Social History Alcohol - Denies Alcohol Use, 04/27/2022 Past, Beer, 08/06/2020 Employment/School 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 Never Smokeless Tobacco Use:. Cigarettes, 1 per day. 47 year(s). Started age 11.0 Years. Previous treatment: None. Ready to change: No. Yes, 02/28/2024 10 or more cigarettes (1/2 pack or more)/day in last 30 days Tobacco Use:., 02/10/2023 Family History Alcoholism: Father. Arthritis: Mother. Cancer: Mother and Father. Screenings and Assessments 04/30/24 14:54:00 Result Name Value Comment Little Interest - Pleasure in Activities Not at all Feeling Down, Depressed, Hopeless Not at all Initial Depression Screen Score 0 SCORE Goals and Interventions Care Plan Progress Note tcm #3 1219 7 min Patient states I'm doing pretty good. Patient denies abdominal pain. Continues o experiment with what food he can eat. To keep stool at an appropriate consistency. Patient is attempting to maintain a low fiber diet as directed. Also states having difficulty getting ostomy supples. The surgeons ofc and insurance company are attempting to find a local automatic trimming sewer that carries the supplies and takes his insurance. Denies CP, SOB, trouble eating, drinking, swallowing, sleeping, or with bladder. Denies concerns. Communication Events Date: May 13, 2024 Method: Phone call Type: Outbound Duration (min): 6 Outcome: Case discussion Contact Type: Patient Contact Name: DENVER PERDUE Notes: tcm #3 see summary note Created By: Alla Osuna R.N. Date: May 07, 2024 Method: Phone call Type: Outbound Duration (min): 7 Outcome: Case discussion Contact Type: Patient Contact Name: DENVER PERDUE Notes: tcm # 2 see ft summary note Created By: Alla Osuna R.N. [facility] Observed: 05/07/2024 1:12 PM Status: F Source: [facility] Population Health Case Information No case details exist for the encounter. Problems Ongoing AAA (abdominal aortic aneurysm) Actinic keratoses SANDEEP (acute kidney injury) Anticoagulated Benign essential HTN Cigarette nicotine dependence Combined hyperlipidemia Constipation Diverticulitis of colon Embolism of iliac artery GERD (gastroesophageal reflux disease) History of diverticular abscess of colon Hypocalcemia Hypovolemic shock Ileostomy present Intermittent claudication of left lower extremity due to atherosclerosis Kidney stone on left side Lumbar radiculopathy PAD (peripheral artery disease) Pain in joint, multiple sites Restless leg syndrome S/P colon resection S/P splenectomy Sacroiliitis Sciatica Historical Smoker Procedure/Surgical History Injection of facet joint using fluoroscopic guidance [...] left flank area, transforaminal epidural steroid injection. Home Medications acetaminophen-oxycodone 325 mg-5 mg Tab, 1 tab(s), Oral, QID atorvastatin 20 mg Tab, 20 mg= 1 tab(s), Oral, Daily, 3 refills baclofen 10 mg Tab, 10 mg= 1 tab(s), Oral, TID, PRN baclofen 10 mg tablet, 0 buPROPion 150 mg ER Tab, 150 mg= 1 tab(s), Oral, BID, 11 refills cilostazol 100 mg Tab, See Instructions, 3 refills gabapentin 600 mg Tab, 600 mg= 1 tab(s), Oral, TID gabapentin 800 mg Tab, 800 mg= 1 tab(s), Oral, TID Metoprolol succinate 25 mg ER Tablet Plavix 75 mg Tab, 75 mg= 1 tab(s), Oral, Daily Protonix 40 mg Tab-DR, 40 mg= 1 tab(s), Oral, Daily, 3 refills ropinirole 1 mg Tab, 1 mg= 1 tab(s), Oral, Daily, 1 refills tamsulosin 0.4 mg Cap, 0.4 mg= 1 cap(s) Allergies No Known Allergies No Known Medication Allergies Social History Alcohol - Denies Alcohol Use, 04/27/2022 Past, Beer, 08/06/2020 Employment/School 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 Never Smokeless Tobacco Use:. Cigarettes, 1 per day. 47 year(s). Started age 10.0 Years. Previous treatment: None. Ready to change: No. Yes, 02/28/2024 10 or more cigarettes (1/2 pack or more)/day in last 30 days Tobacco Use:., 02/10/2023 Family History Alcoholism: Father. Arthritis: Mother. Cancer: Mother and Father. Screenings and Assessments 04/30/24 14:54:00 Result Name Value Comment Little Interest - Pleasure in Activities Not at all Feeling Down, Depressed, Hopeless Not at all Initial Depression Screen Score 0 SCORE Goals and Interventions Care Plan Progress Note tcm #2 1307 7 min Patient states I'm doing pretty good. Has an appointment today with specialist to see if will continue to need the PICC line. Will also have a f/u with asphalt paving supervisor. States BP has been around 107/73. He had a f/u this morning with surgeon who per patient told him the goal would be to reverse the colostomy in 3 months. Reports stools continue to go between runny and more solid. Encouraged patient to be conscious of how body is reacting to different food he is eating. Patient is attempting to maintain a low fiber diet as directed. Denies CP, SOB, trouble eating, drinking, swallowing, sleeping, or with bladder. Denies concerns. Communication Events Date: May 07, 2024 Method: Phone call Type: Outbound Duration (min): 7 Outcome: Case discussion Contact Type: Patient Contact Name: DENVER PREDUE Notes: tcm # 2 see ft summary note Created By: Alla Osuna R.N. CBC WITH DIFF Collected: 05/02/2024 2:37 PM Status: F Source: [facility] TYPE CODE TESTS RESULT OUT OF RANGE REFERENCE UNITS LAB WBC(LOINC) WBC Count 10.7 3.5-11.0 k/uL LAB RBC(LOINC) RBC Count 3.25 Low 4.50-5.90 m/uL LAB HGB(LOINC) Hemoglobin 9.6 Low 13.5-17.5 g/dL LAB HCT(LOINC) Hematocrit 29.3 Low 41.0-53.0 % LAB MCV(LOINC) MCV 90.2 80.0-100.0 fL LAB MCH(LOINC) MCH 29.5 26.0-34.0 pg LAB MCHC(LOINC) MCHC 32.8 31.0-37.0 g/dL LAB RDW(LOINC) RDW 14.8 12.1-15.2 % LAB PLT(LOINC) Platelet Count 938 High 140-450 k/uL LAB MPVX(LOINC) MPV 9.0 6.0-12.0 fL LAB SEG(LOINC) Neutrophil (Seg) 63 39-75 % LAB LYM(LOINC) Lymphocyte 24 13-44 % LAB MON(LOINC) Monocyte 10 High 5-9 % LAB EO(LOINC) Eosinophil 2 0-5 % LAB BASO(LOINC) Basophil 0 0-2 % LAB IGRAN(LOINC) Immature Granulocyte 1 0-5 % LAB ASEG(LOINC) Abs.Neutrophil (Seg) 6.76 High 2.1-6.5 k/uL LAB ALYM(LOINC) Abs. Lymph 2.61 1.00-4.80 k/uL LAB AMONO(LOINC) Abs. Monocyte 1.05 High 0.00-1.00 k/u L LAB AEO(LOINC) Abs. Eosinophil 0.20 0.00-0.40 k/u L LAB ABASO(LOINC) Abs. Basophil 0.03 0.00-0.20 k/u L LAB AIGRAN(LOINC) Abs.Imm.Granuloc yte 0.06 0.00-0.30 k/uL Performed By: #### CDP, CRP, CP #### [facility] [address] [place] [address] Computer Information Science Professor: Willard Ramirez MD COMP METABOLIC PROF Collected: 05/02/20 24 2:37 PM Status: F Source: [facility] TYPE CODE TESTS RESULT OUT OF RANGE REFERENCE UNITS LAB NA(LOINC) NA (Sodium) 135 135-144 mmol/L LAB K(LOINC) K (Potassium) 4.7 3.7-5.3 mmol/L LAB CL(LOINC) Chloride 101 98-107 mmol/L LAB HCO(LOINC) CO2 20 20-31 mmol/L LAB GAP(LOINC) Anion Gap 14 9-17 mmol/L LAB GLU(LOINC) Glucose 130 High 70-99 mg/dL LAB BUN(LOINC) BUN (Urea N) 20 8-23 mg/dL LAB CRE(LOINC) Creatinine 1.2 0.7-1.2 mg/dL LAB EGFR(LOINC) eGFR 68 >60 mL/min/1. 73m2 Result Comment: These results are not intended for use in patients <18 years of age. eGFR results are calculated without a race factor using the 2020 CKD-EPI equation. Careful clinical correlation is recommended, particularly when comparing to results calculated using previous equations. The CKD-EPI equation is less accurate in patients with extremes of muscle mass, extra-renal metabolism of creatine, excessive creatine ingestion, or following therapy that affects renal tubular secretion. LAB BUNCRE(LOINC) BUN/CRE Ratio 17 9-20 LAB CA(LOINC) Calcium 9.5 8.6-10.4 mg/dL LAB TP(LOINC) Protein, Total 6.9 6.4-8.3 g/dL LAB ALB(LOINC) Albumin 3.4 Low 3.5-5.2 g/dL LAB TBIL(LOINC) Bilirubin, Total 0.2 Low 0.3-1.2 mg/dL LAB ALP(LOINC) Alkaline Phos 127 40-129 U/L LAB ALT(LOINC) ALT 21 5-41 U/L LAB AST(LOINC) AST 11 <40 U/L Performed By: #### CDP, CRP, CP #### [facility] [address], [place] [id number] Computer Information Science Professor: Willard Ramirez MD C-REACTIVE PROTEIN Collected: 05/02/2024 2:37 PM Sta tus: F Source: [facility] TYPE CODE TESTS RESULT OUT OF RANGE REFERENCE UNITS LAB CRP(LOINC) C-Reactive Protein <3.0 0.0-5.0 mg/L Performed By: #### CDP, CRP, CP #### [facility] [address] [place] [address] Computer Information Science Professor: Willard Ramirez MD FAMILY MEDICINE OFFICE/CLINI C NOTE Observed: 04/30/2024 5:41 PM Status: F Source: [facility] Family Medicine Office/Clini c Note Chief Complaint Follow-up post-surgery and management of acute kidney injury. HPI Staff TCM followup: Hospital: [facility] Visit date: 04-10-24 - 04-25-24 Symptoms the patient presented with: Splenectomy, colon resection with Stoma Current concerns: circulation in hands , stinging sensation in left upper thigh History of Present Illness 63 Years old Male here for Hospital f/u [facility] 04/25, for ileostomy as well as a splenectomy. HPI staff / Chief Complaint confirmed with the patient Screening: Colon Cancer screenin03/23/2024 with a year f/u recommended; this patient does _ have family history of colon cancer: found a blockage, had a colon resection 04/10/2024 Labs: 08/01/2023 PSA: 1.1 on 02/2022 ; this patient does _ have a family history of prostate cancer Smokers/ former smokers: Low dose lung CT: _ List of Providers: Pain clinic: Dr Andrade Cardiovascular surgeon: Dr Yan Material Scheduler: Dr Izaguirre Registration Manager: [facility] Cr/eGFR: eGFR: 95 mL/min/1.73 m2 (08/01/23 08:56:00) Creatinine: 0.9 mg/dL (08/01/23 08:56:00) A1c: No qualifying data available. TSH: No qualifying data available. Vit D: No qualifying data available. LDL: LDL Direct: 72 mg/dL (08/01/23 08:56:00) Lipids: Chol: 125 mg/dL (08/01/23 08:56:00) HDL: 42 mg/dL (08/01/23 08:56:00) LDL Direct: 72 mg/dL (08/01/23 08:56:00) Tri mg/dL (08/01/23 08:56:00) VLDL: 18 mg/dL (08/01/23 08:56:00) Future Appointments [facility] Appt. Date: 08/02/2024 7:20 AM Scheduled Provider: [place], [address] Phone: [phone] Fax: [phone] The patient underwent surgery following a diagnosis of diverticulitis of the colon, which involved colon resection and ileostomy. His condition was complicated by hypovolemic shock, necessitating significant medical intervention, including the use of intravenous fluids and blood transfusions, with the patient receiving approximately six liters of transfused blood. The patient also has a history of status post splenectomy and has been dealing with acute kidney injury. Post-discharge, he reports feeling generally weak and is not engaged in any formal rehabilitation program beyond walking. He noted quitting smoking recently and reports not being on any specific home therapy regiment. The patient expresses having gone through significant medical challenges and is under antibiotic infusion treatment due to associated complications from recent procedures. He is scheduled for blood work to assess current levels, supported by his surgeon in [place] this Review of Systems PHQ Score Initial Depression Screen Score: 0 SCORE - Constitutional: Reports feeling weak; denies feeling strong. - Cardiovascular: Denies chest pain currently, reported symptoms related to procedures during hospitalization. - Respiratory: Denies shortness of breath at present. - Gastrointestinal: Denies constipation, reports presence of ileostomy. - Genitourinary: Denies urinary frequency; reported history of transient elevated blood pressure managed with medication. - Musculoskeletal: Denies engaging in prescribed home exercises for rehabilitation. - Neurological: Reports transient feelings of dizziness upon standing. - Psychological: Denies smoking after quitting during recent hospitalization. Physical Exam Vitals & Measurements T: 36.6 ???C(Temporal Artery) HR: 74(Peripheral) RR: 18 BP: 104/68 SpO2: 92% HT: 69 in HT: 176 cm WT: 71.5 kg WT: 157.63 lb BMI: 23.08 Constitutional: Well-groomed, well-nourished, no signs of acute distress. HEENT: Head normocephalic, sclera is clear. Cardiothoracic: Heart rate and rhythm is regular strong, normal S1 and S2. No murmurs, rubs, or bruits auscultated. No peripheral edema, peripheral pulses +2 Respiratory: Lung sounds are clear throughout, respirations regular nonlabored. Abdomen/GI: Abdomen soft nondistended. Bowel sounds active x 4. Ileostomy in place draining brown liquid to soft stool Musculoskeletal: Gait is steady, full range of motion. Integument: Midline abdominal incision healed scabbed area noted in the middle, edges well proximal no active drainage and no erythema. Psychiatric: Alert and oriented x 3, pleasant, no mood changes. Assessment/Plan 1. S/P colon resection (Z90.49: Acquired absence of other specified parts of digestive tract) Collaborate with surgical follow-up to ensure the patient???s satisfactory recovery. Reinforce the importance of adhering to follow-up schedules and lifestyle modifications as required by current health status. Maintain healthy eating habits and maintain good hydration. Will closely monitor as well follow-up with me in 1 month 2. Ileostomy present (Z93.2: Ileostomy status) Continuously provide care instructions for managing ileostomy, including skin care and signs of complications such as infection. 3. Diverticulitis of colon (K57.32: Diverticulitis of large intestine without perforation or abscess without bleeding) Encourage patient to adhere to a diet suitable for recovery post-resection, ensuring ileostomy management. Patient education on physical rehabilitation to regain strength is crucial, recommended to begin regimen gently tailored to the patient???s tolerance and slowly increase activity levels. 4. Hypovolemic shock (R57.1: Hypovolemic shock) Regular monitoring of hemodynamic signs and symptoms, ensuring patient maintains adequate fluid intake to support circulatory stability. He is scheduled for blood work this , he will have the hospital send me the results as well. Encouraged him to monitor blood pressure readings at home as well as a heart rate bring him to his cardiology met next week, follow-up in 1 month. 5. SANDEEP (acute kidney injury) (N17.9: Acute kidney failure, unspecified) Monitor renal function through scheduled blood tests. Continue hydration and adjust current medications as necessary to preserve kidney function. 6. 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 Recommend necessary prophylactic measures against infection, maintain regular follow-ups to monitor overall health. 8. BMI 23.0-23.9, adult (Z68.23: Body mass index [BMI] 23.0-23.9, adult) Maintain healthy weight through proper nutrition and exercise. This note was created by the assist of a speech-recognition program although the intention is to generate a document that actually reflects the content of the visit, no guarantees can be provided that every mistake has been identified and corrected by editing. Follow-up With When Contact Information Curt MSN, CONCRETE VIBRATOR OPERATOR-POLYMER MATERIALS CONSULTANT, Beth Dash In [address] [place] [phone] Additional Instructions: Patient Education Acute Kidney Injury, Adult Ileostomy Problem List/Past Medical History Ongoing AAA (abdominal aortic aneurysm) Actinic keratoses SANDEEP (acute kidney injury) Anticoagulated Benign essential HTN Cigarette nicotine dependence Combined hyperlipidemia Constipation Diverticulitis of colon Embolism of iliac artery GERD (gastroesophageal reflux disease) History of diverticular abscess of colon Hypocalcemia Hypovolemic shock Ileostomy present Intermittent claudication of left lower extremity due to atherosclerosis Kidney stone on left side Lumbar radiculopathy PAD (peripheral artery disease) Pain in joint, multiple sites Restless leg syndrome S/P colon resection S/P splenectomy Sacroiliitis Sciatica Historical Smoker Procedure/Surgical History Injection of facet joint using fluoroscopic guidance [...] left flank area, transforaminal epidural steroid injection. Medications acetaminophen-oxycodone 325 mg-5 mg Tab, 1 tab(s), Oral, QID atorvastatin 20 mg Tab, 20 mg= 1 tab(s), Oral, Daily, 3 refills baclofen 10 mg tablet, 0 buPROPion 150 mg ER Tab, 150 mg= 1 tab(s), Oral, BID, 11 refills cilostazol 100 mg Tab, See Instructions, 3 refills gabapentin 600 mg Tab, 600 mg= 1 tab(s), Oral, TID gabapentin 800 mg Tab, 800 mg= 1 tab(s), Oral, TID Metoprolol succinate 25 mg ER Tablet Plavix 75 mg Tab, 75 mg= 1 tab(s), Oral, Daily Protonix 40 mg Tab-DR, 40 mg= 1 tab(s), Oral, Daily, 3 refills ropinirole 1 mg Tab, 1 mg= 1 tab(s), Oral, Daily, 1 refills tamsulosin 0.4 mg Cap, 0.4 mg= 1 cap(s) Allergies No Known Allergies No Known Medication Allergies Social History Alcohol - Denies Alcohol Use, 04/27/2022 Past, Beer, 08/06/2020 Employment/School 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 Never Smokeless Tobacco Use:. Cigarettes, 1 per day. 47 year(s). Started age 11.0 Years. Previous treatment: None. Ready to change: No. Yes, 02/28/2024 10 or more cigarettes (1/2 pack or more)/day in last 30 days Tobacco Use:., 02/10/2023 Family History Alcoholism: Father. Arthritis: Mother. Cancer: Mother and Father. Immunizations Vaccine Date Status Comments influenza virus vaccine, inactivated - Not Given Postpone due to refusal influenza virus vaccine, inactivated - Not Given Patient Refuses diphtheria/pertussis, acel/tetanus adult 08/21/2021 Given SARS-CoV-2 (COVID-19) mRNA BNT-162b2 vax 09/04/2020 Given Prophylaxis SARS-CoV-2 (COVID-19) mRNA BNT-162b2 vax 08/07/2020 Given Prophylaxis influenza virus vaccine, inactivated - Not Given Patient Refuses influenza virus vaccine, inactivated 04/11/2019 Given diphtheria/pertussis, acel/tetanus adult 03/24/2017 Given Result Comment: Electronical ly Signed By: Curt AQUINO, CONCRETE VIBRATOR OPERATOR-Beth JONES\.br\Date and Time Signed: 04/30/24 17:41 EST AMBULATORY VISIT SUMMARY Observed: 04/30 3:56 PM Status: F Source: [facility] Ambulatory Visit Summary DENVER PERDUE :1960 Visit Date:04/30/2024 Ambulatory Visit Instructions Your Diagnosis S/P colon resection Ileostomy present Diverticulitis of colon Hypovolemic shock SANDEEP (acute kidney injury) S/P splenectomy BMI 23.0-23.9, adult Your Care Team Attending Physician - Curt AQUINO, CONCRETE VIBRATOR OPERATOR-Beth JONES Primary Care Physician - Curt MSN, CONCRETE VIBRATOR OPERATOR-POLYMER MATERIALS CONSULTANT, Beth Dash This Is Your Medications List [facility] Prescription (baclofen 10 mg tablet) acetaminophen-oxycodone (acetaminophen-oxycodone 325 mg-5 mg Tab) atorvastatin (atorvastatin 20 mg Tab) buPROPion (buPROPion 150 mg ER Tab) cilostazol (cilostazol 100 mg Tab) clopidogrel (Plavix 75 mg Tab) gabapentin (gabapentin 600 mg Tab) gabapentin (gabapentin 800 mg Tab) metoprolol (Metoprolol succinate 25 mg ER Tablet) pantoprazole (Protonix 40 mg Tab-DR) ropinirole (ropinirole 1 mg Tab) tamsulosin (tamsulosin 0.4 mg Cap) Procedures Performed Injection of facet joint using [...] steroid injection. Discharge Vitals Temperature (Temporal Artery) 36.6 ???C Heart Rate (Peripheral) 74 Respiratory Rate 18 Blood Pressure 104/68 Height 69 in Height 176 cm Weight 157.63 lb Weight 71.5 kg BMI 23.08 What to do next Scheduled Follow-Up Appointments Monday 2:40 PM EST With: Curt AQUINO, Beth HAR[place] Where: [facility] [address] [place] [address]- Monday 7:20 AM EDT With: Curt AQUINO, Beth HARLEY Where: [facility] [address] [place] [address]- You Need to Schedule the Following Appointments Follow Up with Curt AQUINO, Beth HARLEY When: In 1 month Where: [address] [place] [id number] Medications What How Much When Instructions Unchanged acetaminophen-oxycodone (acetaminophen-oxycodone 325 mg-5 mg Tab) 1 Tablets By Mouth 4 times a day Unchanged atorvastatin (atorvastatin 20 mg Tab) 1 [...] (Metoprolol succinate 25 mg ER Tablet) Unchanged Misc Prescription (baclofen 10 mg tablet) 0 Unchanged pantoprazole (Protonix 40 mg Tab-DR) 1 Tablets By Mouth Every day Unchanged ropinirole (ropinirole 1 mg Tab) 1 Tablets By Mouth Every day 1 to 3 hours before bedtime Unchanged tamsulosin (tamsulosin 0.4 mg Cap) 1 Capsules Allergies No Known Allergies No Known Medication Allergies Problems Ongoing - Any problem that you are currently receiving treatment for. AAA (abdominal aortic aneurysm) Actinic keratoses SANDEEP (acute kidney injury) Anticoagulated Benign essential HTN Cigarette nicotine dependence Combined hyperlipidemia Constipation Diverticulitis of colon Embolism of iliac artery GERD (gastroesophageal reflux disease) History of diverticular abscess of colon Hypocalcemia Hypovolemic shock Ileostomy present Intermittent claudication of left lower extremity due to atherosclerosis Kidney stone on left side Lumbar radiculopathy PAD (peripheral artery disease) Pain in joint, multiple sites Restless leg syndrome S/P colon resection S/P splenectomy Sacroiliitis Sciatica Historical - Any problem that you are no longer receiving treatment for. Smoker Patient Survey You may receive a survey via text or e-mail asking about your office visit. Please share your experience with us by completing your survey. We appreciate your feedback and thank you for choosing us for your care. Education Materials Acute Kidney Injury, Adult Acute kidney injury is a sudden decrease in the ability of the kidneys to do what they are supposed to do. The kidneys are a pair of organs that: ??? Make urine. ??? Make hormones. ??? Keep the right amount of fluids and chemicals in the body. This condition ranges from mild to severe. Over time, it may turn into long-term (chronic) kidney disease. Finding and treating the injury early may keep it from turning into chronic kidney disease. What are the causes? Common causes of this condition include: ??? A problem with blood flow to the kidneys. This may be caused by: ? Low blood pressure, shock, or severe dehydration. ? Severe blood loss. ? Heart and blood vessel disease. ? Severe huerta. ? Liver disease. ??? Direct damage to the kidneys. This may be caused by: ? Certain medicines or toxins. ? Kidney disease. ? Contrast dye used in imaging tests. ? An infection of the kidney or bloodstream. ? Problems from surgery. ? Trauma to the kidney area. ? Organ failure. This includes heart or liver failure. ??? A sudden block in urine flow. This may be caused by: ? Cancer. ? Kidney stones. ? An enlarged prostate. What increases the risk? You may be more likely to develop this condition if: ??? You are older than 65 years of age. ??? You are female. ??? You are in the hospital. You may be even more at risk if you are very sick. ??? You have certain conditions. These may include: ? Chronic kidney or liver disease. ? Diabetes. ? Heart disease and heart failure. ? Lung disease. What are the signs or symptoms? This condition may not cause symptoms until it becomes severe. If it does, symptoms may include: ??? Feeling very tired or having trouble staying awake. ??? Nausea or vomiting. ??? Swelling (edema) of the face, legs, ankles, or feet. ??? Pain in your abdomen, back, or along the side of your back (flank). ??? Urine changes. You may: ? Make little or no urine. ? Pass urine with a weak flow. ??? Muscle twitches and cramps. These are most often in the legs. ??? Confusion or trouble focusing. ??? Not feeling the urge to eat. ??? Fever. How is this diagnosed? This condition may be diagnosed based on your symptoms and your medical history. You may have a physical exam done. You may also have tests, such as: ??? Blood tests. ??? Urine tests. ??? Imaging tests. ??? A kidney biopsy. This is when a sample of kidney tissue is removed and looked at under a microscope. How is this treated? Treatment depends on the cause and how severe the condition is. In mild cases, treatment may not be needed. The kidneys may heal on their own. In severe cases, treatment may include: ??? Treating the cause of the kidney injury. This may mean that you have to change your medicines or the doses you take. ??? Getting fluids through an IV tube. ??? Having a flexible tube (catheter) put in. This tube will drain urine and prevent blockages. ??? Trying to keep problems from starting. This may mean not using certain medicines or not having tests done that could cause more injury. In some cases, you may also need: ??? Dialysis or continuous renal replacement therapy (CRRT). This treatment uses a machine to do the job of the kidneys. ??? Surgery. This may be done to repair a damaged kidney. It could also be done to remove a blockage in the urinary tract. Follow these instructions at home: Medicines ??? Take mqyp-lkf-nilosra and prescription medicines only as told by your health care provider. ??? Do not take new medicines unless approved by your health care provider. Many medicines can make kidney damage worse. ??? Do not take vitamin or mineral supplements unless approved by your health care provider. Some of these can make kidney damage worse. Lifestyle ??? Make changes to your diet as told by your health care provider. You may need to eat less protein. ??? Get to, and stay at, a healthy weight. If you need help, ask your health care provider. ??? Start or keep up an exercise plan. Exercise at least 30 minutes a day, 5 days a week. ??? Do not use any products that contain nicotine or tobacco. These products include cigarettes, chewing tobacco, and vaping devices, such as e-cigarettes. If you need help quitting, ask your health care provider. General instructions ??? Keep track of your blood pressure. Tell your health care provider if you notice any changes. ??? Keep your vaccines up to date. Ask your health care provider which vaccines you need. ??? Keep all follow-up visits. Your health care provider will need to monitor your kidneys. Where to find support ??? [place] [employer] Kidney Patients: aakp.org ??? [employer]: akfinc.org Where to find more information ??? National Kidney Foundation: kidney.org ??? Medical Education [place]: ? LifeOptions: lifeoptions.org ? Kidney School: kidneyschool.org Contact a health care provider if: ??? Your symptoms get worse. ??? You have new symptoms, such as: ? Headaches. ? Skin that is darker or associate accountant than normal. ? Easy bruising. ? Feeling itchy. ? Hiccups. ? Lack of menstrual periods. ??? You have a fever. Get help right away if: ??? You have signs of severe kidney disease, such as: ? Chest pain. ? Shortness of breath. ? Seizures. ??? You have pain or bleeding when you pass urine. ??? You make little or no urine. These symptoms may be an emergency. Get help right away. Call 911. ??? Do not wait to see if the symptoms will go away. ??? Do not drive yourself to the hospital. This information is not intended to replace advice given to you by your health care provider. Make sure you discuss any questions you have with your health care provider. Document Revised: 11/25/2022 Document Reviewed: 11/25/2022 [employer] Patient Education ??? 2023 [employer] Ileostomy Ileostomy is a surgery to redirect part of the small intestine (ileum) to an external opening (stoma) in the abdomen. This means that poop (stool) passes through the stoma and into an external bag (ostomy pouch) instead of passing through the rest of the intestines and the rectum (bowel). You may need this surgery if your bowel is diseased or has been partially removed. An ileostomy may be temporary or permanent. Tell a health care provider about: ??? Any allergies you have. ??? All medicines you are taking, including vitamins, herbs, eye drops, creams, and aoqv-eha-utxeqlt medicines. ??? Any problems you or family members have had with anesthesia. ??? Any bleeding problems you have. ??? Any surgeries you have had. ??? Any medical conditions you have or have had. ??? Whether you are or may be . What are the risks? Your health care provider will talk with you about risks. These may include: ??? Infection. ??? Bleeding. ??? Allergic reactions to medicines or dyes. ??? Damage to nearby structures or organs. ??? Lung problems, such as: ? Lung infection (pneumonia). ? Pulmonary embolism. This is when a blood clot forms in a leg and travels to the lung. ??? Blockage of the intestine (ileus). ??? Tissue that bulges through a weak spot in the abdomen muscles (hernia). ??? Part of the small intestine coming out through the stoma (prolapse). ??? Dehydration. What happens before the surgery? When to stop eating and drinking Follow instructions from your health care provider about what you may eat and drink. These may include: ??? 8 hours before your procedure ? Stop eating most foods. Do not eat meat, fried foods, or fatty foods. ? Eat only light foods, such as toast or crackers. ? All liquids are okay except energy drinks and alcohol. ??? 6 hours before your procedure ? Stop eating. ? Drink only clear liquids, such as water, clear fruit juice, black coffee, plain tea, and sports drinks. ? Do not drink energy drinks or alcohol. ??? 2 hours before your procedure ? Stop drinking all liquids. ? You may be allowed to take medicines with small sips of water. If you do not follow your health care provider's instructions, your procedure may be delayed or canceled. Medicines Ask your health care provider about: ??? Changing or stopping your regular medicines. These include any diabetes medicines or blood thinners you take. ??? Taking medicines such as aspirin and ibuprofen. These medicines can thin your blood. Do not take them unless your health care provider tells you to. ??? Taking zgaw-vjr-rgfvmhe medicines, vitamins, herbs, and supplements. Exams and tests ??? You will have a physical exam, which may include a rectal exam. ??? You may have tests, such as: ? Blood tests. ? Stool tests. ? X-rays. ? Colonoscopy. General instructions ??? Ask your health care provider: ? How your surgery and stoma site will be marked. ? What steps will be taken to help prevent infection. These may include: ? Removing hair at the surgery site. ? Washing skin with a soap that kills germs. ? Taking antibiotics. ??? Do not use any products that contain nicotine or tobacco for at least 4 weeks before the procedure. These products include cigarettes, chewing tobacco, and vaping devices, such as e-cigarettes. If you need help quitting, ask your health care provider. What happens during the surgery? An IV will be inserted into one of your veins. ??? You may be given: ? A sedative. This helps you relax. ? Anesthesia. This will: ? Numb certain areas of your body. ? Make you fall asleep for surgery. ??? A drainage tube called a nasogastric tube (NG tube) may be passed through your nose and into your stomach. ??? An incision will be made in your abdomen. ??? Your ileum will be cut so that it is divided in two. The end of the ileum will be attached to your abdomen with stitches (sutures) to make the stoma. ??? An ostomy pouch will be attached to your stoma. ??? The incision in your upper abdomen will be closed with sutures and may be covered with a bandage (dressing). The procedure may vary among health care providers and hospitals. What happens after the surgery? General information ??? Your blood pressure, heart rate, breathing rate, and blood oxygen level will be monitored until you leave the hospital or clinic. ??? You will have some pain. Medicines will be available to help you. ??? You will be asked to: ? Get out of bed and start walking as soon as you are able. ? Do deep breathing exercises several times a day to prevent pneumonia. ??? You will be taught how to care for your stoma and ostomy pouch. ??? Wear compression stockings as told by your health care provider. These stockings help to prevent blood clots and reduce swelling in your legs. ??? Do not drive or operate machinery until your health care provider says that it is safe. Hydration and nutrition ??? You may continue to get fluids and medicines through your IV. ??? You may not be able to drink fluids or eat solid food for at least 24 hours after your procedure. You may be given ice chips to suck on until you are able to drink fluids. ??? The NG tube may stay in place until you can drink and eat normally. This information is not intended to replace advice given to you by your health care provider. Make sure you discuss any questions you have with your health care provider. Document Revised: 11/09/2022 Document Reviewed: 11/09/2022 [employer] Patient Education ??? 2023 [employer]. PATIENT EDUCATION Observed: 04/28/2024 5:57 PM Status: C Source: [facility] Patient Education Gastroenterology Ileostomy Ileostomy is a surgery to redirect part of the small intestine (ileum) to an external opening (stoma) in the abdomen. This means that poop (stool) passes through the stoma and into an external bag (ostomy pouch) instead of passing through the rest of the intestines and the rectum (bowel). You may need this surgery if your bowel is diseased or has been partially removed. An ileostomy may be temporary or permanent. Tell a health care provider about: ??? Any allergies you have. ??? All medicines you are taking, including vitamins, herbs, eye drops, creams, and fxai-qqy-joeiunw medicines. ??? Any problems you or family members have had with anesthesia. ??? Any bleeding problems you have. ??? Any surgeries you have had. ??? Any medical conditions you have or have had. ??? Whether you are or may be . What are the risks? Your health care provider will talk with you about risks. These may include: ??? Infection. ??? Bleeding. ??? Allergic reactions to medicines or dyes. ??? Damage to nearby structures or organs. ??? Lung problems, such as: ? Lung infection (pneumonia). ? Pulmonary embolism. This is when a blood clot forms in a leg and travels to the lung. ??? Blockage of the intestine (ileus). ??? Tissue that bulges through a weak spot in the abdomen muscles (hernia). ??? Part of the small intestine coming out through the stoma (prolapse). ??? Dehydration. What happens before the surgery? When to stop eating and drinking Follow instructions from your health care provider about what you may eat and drink. These may include: ??? 8 hours before your procedure ? Stop eating most foods. Do not eat meat, fried foods, or fatty foods. ? Eat only light foods, such as toast or crackers. ? All liquids are okay except energy drinks and alcohol. ??? 6 hours before your procedure ? Stop eating. ? Drink only clear liquids, such as water, clear fruit juice, black coffee, plain tea, and sports drinks. ? Do not drink energy drinks or alcohol. ??? 2 hours before your procedure ? Stop drinking all liquids. ? You may be allowed to take medicines with small sips of water. If you do not follow your health care provider's instructions, your procedure may be delayed or canceled. Medicines Ask your health care provider about: ??? Changing or stopping your regular medicines. These include any diabetes medicines or blood thinners you take. ??? Taking medicines such as aspirin and ibuprofen. These medicines can thin your blood. Do not take them unless your health care provider tells you to. ??? Taking rxmr-lto-piewugf medicines, vitamins, herbs, and supplements. Exams and tests ??? You will have a physical exam, which may include a rectal exam. ??? You may have tests, such as: ? Blood tests. ? Stool tests. ? X-rays. ? Colonoscopy. General instructions ??? Ask your health care provider: ? How your surgery and stoma site will be marked. ? What steps will be taken to help prevent infection. These may include: ? Removing hair at the surgery site. ? Washing skin with a soap that kills germs. ? Taking antibiotics. ??? Do not use any products that contain nicotine or tobacco for at least 4 weeks before the procedure. These products include cigarettes, chewing tobacco, and vaping devices, such as e-cigarettes. If you need help quitting, ask your health care provider. What happens during the surgery? An IV will be inserted into one of your veins. ??? You may be given: ? A sedative. This helps you relax. ? Anesthesia. This will: ? Numb certain areas of your body. ? Make you fall asleep for surgery. ??? A drainage tube called a nasogastric tube (NG tube) may be passed through your nose and into your stomach. ??? An incision will be made in your abdomen. ??? Your ileum will be cut so that it is divided in two. The end of the ileum will be attached to your abdomen with stitches (sutures) to make the stoma. ??? An ostomy pouch will be attached to your stoma. ??? The incision in your upper abdomen will be closed with sutures and may be covered with a bandage (dressing). The procedure may vary among health care providers and hospitals. What happens after the surgery? General information ??? Your blood pressure, heart rate, breathing rate, and blood oxygen level will be monitored until you leave the hospital or clinic. ??? You will have some pain. Medicines will be available to help you. ??? You will be asked to: ? Get out of bed and start walking as soon as you are able. ? Do deep breathing exercises several times a day to prevent pneumonia. ??? You will be taught how to care for your stoma and ostomy pouch. ??? Wear compression stockings as told by your health care provider. These stockings help to prevent blood clots and reduce swelling in your legs. ??? Do not drive or operate machinery until your health care provider says that it is safe. Hydration and nutrition ??? You may continue to get fluids and medicines through your IV. ??? You may not be able to drink fluids or eat solid food for at least 24 hours after your procedure. You may be given ice chips to suck on until you are able to drink fluids. ??? The NG tube may stay in place until you can drink and eat normally. This information is not intended to replace advice given to you by your health care provider. Make sure you discuss any questions you have with your health care provider. Document Revised: 11/09/2022 Document Reviewed: 11/09/2022 [employer] Patient Education ? 2023 [employer].Nephrology Acute Kidney Injury, Adult Acute kidney injury is a sudden decrease in the ability of the kidneys to do what they are supposed to do. The kidneys are a pair of organs that: ??? Make urine. ??? Make hormones. ??? Keep the right amount of fluids and chemicals in the body. This condition ranges from mild to severe. Over time, it may turn into long-term (chronic) kidney disease. Finding and treating the injury early may keep it from turning into chronic kidney disease. What are the causes? Common causes of this condition include: ??? A problem with blood flow to the kidneys. This may be caused by: ? Low blood pressure, shock, or severe dehydration. ? Severe blood loss. ? Heart and blood vessel disease. ? Severe huerta. ? Liver disease. ??? Direct damage to the kidneys. This may be caused by: ? Certain medicines or toxins. ? Kidney disease. ? Contrast dye used in imaging tests. ? An infection of the kidney or bloodstream. ? Problems from surgery. ? Trauma to the kidney area. ? Organ failure. This includes heart or liver failure. ??? A sudden block in urine flow. This may be caused by: ? Cancer. ? Kidney stones. ? An enlarged prostate. What increases the risk? You may be more likely to develop this condition if: ??? You are older than 65 years of age. ??? You are female. ??? You are in the hospital. You may be even more at risk if you are very sick. ??? You have certain conditions. These may include: ? Chronic kidney or liver disease. ? Diabetes. ? Heart disease and heart failure. ? Lung disease. What are the signs or symptoms? This condition may not cause symptoms until it becomes severe. If it does, symptoms may include: ??? Feeling very tired or having trouble staying awake. ??? Nausea or vomiting. ??? Swelling (edema) of the face, legs, ankles, or feet. ??? Pain in your abdomen, back, or along the side of your back (flank). ??? Urine changes. You may: ? Make little or no urine. ? Pass urine with a weak flow. ??? Muscle twitches and cramps. These are most often in the legs. ??? Confusion or trouble focusing. ??? Not feeling the urge to eat. ??? Fever. How is this diagnosed? This condition may be diagnosed based on your symptoms and your medical history. You may have a physical exam done. You may also have tests, such as: ??? Blood tests. ??? Urine tests. ??? Imaging tests. ??? A kidney biopsy. This is when a sample of kidney tissue is removed and looked at under a microscope. How is this treated? Treatment depends on the cause and how severe the condition is. In mild cases, treatment may not be needed. The kidneys may heal on their own. In severe cases, treatment may include: ??? Treating the cause of the kidney injury. This may mean that you have to change your medicines or the doses you take. ??? Getting fluids through an IV tube. ??? Having a flexible tube (catheter) put in. This tube will drain urine and prevent blockages. ??? Trying to keep problems from starting. This may mean not using certain medicines or not having tests done that could cause more injury. In some cases, you may also need: ??? Dialysis or continuous renal replacement therapy (CRRT). This treatment uses a machine to do the job of the kidneys. ??? Surgery. This may be done to repair a damaged kidney. It could also be done to remove a blockage in the urinary tract. Follow these instructions at home: Medicines ??? Take uaow-zmz-mitpruz and prescription medicines only as told by your health care provider. ??? Do not take new medicines unless approved by your health care provider. Many medicines can make kidney damage worse. ??? Do not take vitamin or mineral supplements unless approved by your health care provider. Some of these can make kidney damage worse. Lifestyle ??? Make changes to your diet as told by your health care provider. You may need to eat less protein. ??? Get to, and stay at, a healthy weight. If you need help, ask your health care provider. ??? Start or keep up an exercise plan. Exercise at least 30 minutes a day, 5 days a week. ??? Do not use any products that contain nicotine or tobacco. These products include cigarettes, chewing tobacco, and vaping devices, such as e-cigarettes. If you need help quitting, ask your health care provider. General instructions ??? Keep track of your blood pressure. Tell your health care provider if you notice any changes. ??? Keep your vaccines up to date. Ask your health care provider which vaccines you need. ??? Keep all follow-up visits. Your health care provider will need to monitor your kidneys. Where to find support ??? [place] [employer] Kidney Patients: aakp.org ??? [place] Kidney [employer]: akfinc.org Where to find more information ??? National Kidney Foundation: kidney.org ??? Medical Education [place]: ? LifeOptions: lifeoptions.org ? Kidney School: kidneyschool.org Contact a health care provider if: ??? Your symptoms get worse. ??? You have new symptoms, such as: ? Headaches. ? Skin that is darker or associate accountant than normal. ? Easy bruising. ? Feeling itchy. ? Hiccups. ? Lack of menstrual periods. ??? You have a fever. Get help right away if: ??? You have signs of severe kidney disease, such as: ? Chest pain. ? Shortness of breath. ? Seizures. ??? You have pain or bleeding when you pass urine. ??? You make little or no urine. These symptoms may be an emergency. Get help right away. Call 911. ??? Do not wait to see if the symptoms will go away. ??? Do not drive yourself to the hospital. This information is not intended to replace advice given to you by your health care provider. Make sure you discuss any questions you have with your health care provider. Document Revised: 11/25/2022 Document Reviewed: 11/25/2022 [employer] Patient Education ? 2023 [employer]. PATH CONSULT HEMATOLOGY Collected: 04/25/2024 6:28 AM Status: F Source: [facility] TYPE CODE TESTS RESULT OUT OF RANGE REFERENCE UNITS LAB HREV Path Consult Hematology Reviewed Result Comment: The peripher al blood smear is reviewed. There is leukocytosis. The leukocyte population is predominantly composed of neutrophils with granulocytic left shift. There is anemia with red blood cell anisopoikilocytosis and polychromasia. Target cells are present. Rare nucleated red blood cells are noted. There is thrombocytosis with platelet anisocytosis. The findings may be reactive however a myeloproliferative disorder cannot be completely excluded. [id number] Performed By: #### HREV #### [facility] [address] [place] [address] C-REACTIVE PROTEIN Collected: 04/25/2024 6:28 AM Sta tus: F Source: [facility] TYPE CODE TESTS RESULT OUT OF RANGE REFERENCE UNITS LAB CRP C-Reactive Protein 24.1 High alert 0.0-5.0 mg/L Performed By: #### CRP #### [facility] [address] [facility] [address] BASIC METABOLIC PANEL Collected: 2023 6:28 AM Status: F Source: [facility] TYPE CODE TESTS RESULT OUT OF RANGE REFERENCE UNITS LAB NA Sodium 140 135-144 mEq/L LAB K Potassium 3.8 3.4-4.9 mEq/L LAB CL Chloride 104 95-107 mEq/L LAB CO2 CO2 27 20-31 mEq/L LAB AGAP Anion Gap 9 9-15 mEq/L LAB GLU Glucose 102 High alert 70-99 mg/dL LAB BUN BUN 7 Low 8-23 mg/dL LAB CREA Creatinine 1.11 0.70-1.20 mg/dL LAB GFR GFR 73.9 >60 Result Comment: Pediatric ca lculator link [email or web address]_[email or web address] Effective Feb 21, 2022 These [...] following therapy that affects renal tubular secretion. LAB CA Calcium 8.9 8.5-9.9 mg/dL Performed By: #### BMP #### [facility] [address] [place] [address] CBC WITH PLATELET AND DIFFERENTIAL Collected: 04/25/2024 6:28 AM Status: F Source: [facility] Order Comment: CALL Zhu LCR HB tel. [phone], plt results called to and read back by ramiro jane, 04/25/2024 06:43, by [facility] TYPE CODE TESTS RESULT OUT OF RANGE REFERENCE UNITS LAB WBCIR WBC 15.6 High alert 4.8-10.8 K/uL LAB RBC RBC 3.06 Low 4.70-6.10 M/uL LAB HGB Hemoglobin 9.4 Low 14.0-18.0 g/dL LAB HCT Hematocrit 28.7 Low 42.0-52.0 % LAB MCV MCV 93.8 High alert 79.0-92.2 fL LAB MCH MCH 30.7 27.0-31.3 pg LAB MCHC MCHC 32.8 Low 33.0-37.0 % LAB RDW RDW 15.3 High alert 11.5-14.5 % LAB PLT Platelet Count 970 High alert 130-400 K/uL LAB ATLYM Atypical Lymphs 4 % LAB NRBCR Nucleated RBC 1 /100 WBC LAB SMDG Smudge Cells 4.9 LAB ANISO Anisocytosis 2+ LAB MACRO Macrocytic 1+ LAB POLY Polychromasia 1+ LAB POIK Poikilocytosis 2+ LAB PLTR Platelet Slide Review Increased LAB PATHH Path Consult Hematology Yes Result Comment: Sent for Pat hology Review LAB SEGR Neutrophils 86.0 % LAB LYMPR Lymphocytes 5.0 % LAB MONOR Monocytes 3.9 % LAB EOSR Eosinophils 1.4 % LAB BASOR Basophils 1.0 % LAB ASEGR Absolute Neutrophils 13.4 High alert 1.4-6.5 K/uL LAB ALYMR Absolute Lymphocytes 1.4 1.0-4.8 K/uL LAB AMONR Absolute Monocytes 0.6 0.2-0.8 K/uL LAB AEOSR Absolute Eosinophils 0.0 0.0-0.7 K/uL LAB ABASR Absolute Basophils 0.2 0.0-0.2 K/uL Performed By: #### CBCWD ### # [facility] [address] [place] [id number] BASIC METABOLIC PANEL Collected: 2023 5:26 AM Status: F Source: [facility] TYPE CODE TESTS RESULT OUT OF RANGE REFERENCE UNITS LAB NA Sodium 140 135-144 mEq/L LAB K Potassium 3.8 3.4-4.9 mEq/L LAB CL Chloride 101 95-107 mEq/L LAB CO2 CO2 30 20-31 mEq/L LAB AGAP Anion Gap 9 9-15 mEq/L LAB GLU Glucose 104 High alert 70-99 mg/dL LAB BUN BUN 11 8-23 mg/dL LAB CREA Creatinine 1.11 0.70-1.20 mg/dL LAB GFR GFR 73.9 >60 Result Comment: Pediatric ca lculator link [email or web address]_[email or web address] Effective Feb 21, 2022 These [...] following therapy that affects renal tubular secretion. LAB CA Calcium 8.7 8.5-9.9 mg/dL Performed By: #### BMP #### [facility] [address] [place] [address] CBC WITH PLATELET AND DIFFERENTIAL Collected: 04/22/2024 5:26 AM Status: F Source: [facility] TYPE CODE TESTS RESULT OUT OF RANGE REFERENCE UNITS LAB WBCIR WBC 16.0 High alert 4.8-10.8 K/uL LAB RBC RBC 2.93 Low 4.70-6.10 M/uL LAB HGB Hemoglobin 9.0 Low 14.0-18.0 g/dL LAB HCT Hematocrit 27.1 Low 42.0-52.0 % LAB MCV MCV 92.5 High alert 79.0-92.2 fL LAB MCH MCH 30.7 27.0-31.3 pg LAB MCHC MCHC 33.2 33.0-37.0 % LAB RDW RDW 15.4 High alert 11.5-14.5 % LAB PLT Platelet Count 836 High alert 130-400 K/uL LAB SEGR Neutrophils 70.7 % LAB LYMPR Lymphocytes 16.7 % LAB MONOR Monocytes 7.8 % LAB EOSR Eosinophils 2.1 % LAB BASOR Basophils 0.5 % LAB ASEGR Absolute Neutrophils 11.3 High alert 1.4-6.5 K/uL LAB ALYMR Absolute Lymphocytes 2.7 1.0-4.8 K/uL LAB AMONR Absolute Monocytes 1.3 High alert 0.2-0.8 K/uL LAB AEOSR Absolute Eosinophils 0.3 0.0-0.7 K/uL LAB ABASR Absolute Basophils 0.1 0.0-0.2 K/uL Performed By: #### CBCWD ### # [facility] [address] [place] [address] POCT GLUCOSE Collected: 04/21/2024 6:01 AM Status: F Source: [facility] TYPE CODE TESTS RESULT OUT OF RANGE REFERENCE UNITS LAB GLUP POC Glucose 108 High alert 70-99 mg/dl LAB PERFP POC Performed on ACCU-CHEK Performed By: #### PGLU #### [facility] [address] [facility] [address] CBC WITH PLATELET AND DIFFERENTIAL Collected: 04/21/2024 4:36 AM Status: F Source: [facility] TYPE CODE TESTS RESULT OUT OF RANGE REFERENCE UNITS LAB WBCIR WBC 13.5 High alert 4.8-10.8 K/uL LAB RBC RBC 2.70 Low 4.70-6.10 M/uL LAB HGB Hemoglobin 8.3 Low 14.0-18.0 g/dL LAB HCT Hematocrit 25.2 Low 42.0-52.0 % LAB MCV MCV 93.3 High alert 79.0-92.2 fL LAB MCH MCH 30.7 27.0-31.3 pg LAB MCHC MCHC 32.9 Low 33.0-37.0 % LAB RDW RDW 15.2 High alert 11.5-14.5 % LAB PLT Platelet Count 717 High alert 130-400 K/uL LAB SEGR Neutrophils 64.7 % LAB LYMPR Lymphocytes 17.8 % LAB MONOR Monocytes 9.2 % LAB EOSR Eosinophils 3.6 % LAB BASOR Basophils 0.8 % LAB ASEGR Absolute Neutrophils 8.7 High alert 1.4-6.5 K/uL LAB ALYMR Absolute Lymphocytes 2.4 1.0-4.8 K/uL LAB AMONR Absolute Monocytes 1.2 High alert 0.2-0.8 K/uL LAB AEOSR Absolute Eosinophils 0.5 0.0-0.7 K/uL LAB ABASR Absolute Basophils 0.1 0.0-0.2 K/uL Performed By: #### CBCWD ### # [facility] [address] [place] [address] RENAL FUNCTION PANEL Collected: 4:36 AM Status: F Source: [facility] TYPE CODE TESTS RESULT OUT OF RANGE REFERENCE UNITS LAB NA Sodium 141 135-144 mEq/L LAB K Potassium 3.8 3.4-4.9 mEq/L LAB CL Chloride 104 95-107 mEq/L LAB CO2 CO2 30 20-31 mEq/L LAB AGAP Anion Gap 7 Low 9-15 mEq/L LAB GLU Glucose 99 70-99 mg/dL LAB BUN BUN 11 8-23 mg/dL LAB CREA Creatinine 0.83 0.70-1.20 mg/dL LAB GFR GFR >90.0 >60 Result Comment: Pediatric ca lculator link [email or web address]_[email or web address] Effective Feb 21, 2022 These [...] following therapy that affects renal tubular secretion. LAB CA Calcium 8.2 Low 8.5-9.9 mg/dL LAB PHOS Phosphorus 3.5 2.3-4.8 mg/dL LAB ALB Albumin 2.8 Low 3.5-4.6 g/dL Performed By: #### RENAL ### # [facility] [address] [place] [address] POCT GLUCOSE Collected: 04/20/2024 8:48 PM Status: F Source: [facility] TYPE CODE TESTS RESULT OUT OF RANGE REFERENCE UNITS LAB GLUP POC Glucose 127 High alert 70-99 mg/dl LAB PERFP POC Performed on ACCU-CHEK Performed By: #### PGLU #### [facility] [address] [place] [address] POCT GLUCOSE Collected: 04/20/2024 11:00 AM Status: F Source: [facility] TYPE CODE TESTS RESULT OUT OF RANGE REFERENCE UNITS LAB GLUP POC Glucose 139 High alert 70-99 mg/dl LAB PERFP POC Performed on ACCU-CHEK Performed By: #### PGLU #### [facility] [address] [place] [id number] POCT GLUCOSE Collected: 04/20/2024 7:46 AM Status: F Source: [facility] TYPE CODE TESTS RESULT OUT OF RANGE REFERENCE UNITS LAB GLUP POC Glucose 135 High alert 70-99 mg/dl LAB PERFP POC Performed on ACCU-CHEK Performed By: #### PGLU #### [facility] [address] [place] [id number] CBC WITH PLATELET AND DIFFERENTIAL Collected: 04/20/2024 5:19 AM Status: F Source: [facility] TYPE CODE TESTS RESULT OUT OF RANGE REFERENCE UNITS LAB WBCIR WBC 12.3 High alert 4.8-10.8 K/uL LAB RBC RBC 2.84 Low 4.70-6.10 M/uL LAB HGB Hemoglobin 8.5 Low 14.0-18.0 g/dL LAB HCT Hematocrit 26.5 Low 42.0-52.0 % LAB MCV MCV 93.3 High alert 79.0-92.2 fL LAB MCH MCH 29.9 27.0-31.3 pg LAB MCHC MCHC 32.1 Low 33.0-37.0 % LAB RDW RDW 15.2 High alert 11.5-14.5 % LAB PLT Platelet Count 666 High alert 130-400 K/uL LAB SEGR Neutrophils 64.2 % LAB LYMPR Lymphocytes 16.3 % LAB MONOR Monocytes 11.9 % LAB EOSR Eosinophils 3.2 % LAB BASOR Basophils 0.6 % LAB ASEGR Absolute Neutrophils 7.9 High alert 1.4-6.5 K/uL LAB ALYMR Absolute Lymphocytes 2.0 1.0-4.8 K/uL LAB AMONR Absolute Monocytes 1.5 High alert 0.2-0.8 K/uL LAB AEOSR Absolute Eosinophils 0.4 0.0-0.7 K/uL LAB ABASR Absolute Basophils 0.1 0.0-0.2 K/uL Performed By: #### CBCWD ### # [facility] [address] [place] [id number] RENAL FUNCTION PANEL Collected: 5:19 AM Status: F Source: [facility] TYPE CODE TESTS RESULT OUT OF RANGE REFERENCE UNITS LAB NA Sodium 140 135-144 mEq/L LAB K Potassium 3.5 3.4-4.9 mEq/L LAB CL Chloride 102 95-107 mEq/L LAB CO2 CO2 31 20-31 mEq/L LAB AGAP Anion Gap 7 Low 9-15 mEq/L LAB GLU Glucose 120 High alert 70-99 mg/dL LAB BUN BUN 12 8-23 mg/dL LAB CREA Creatinine 0.77 0.70-1.20 mg/dL LAB GFR GFR >90.0 >60 Result Comment: Pediatric ca lculator link [email or web address]_[email or web address] Effective Feb 21, 2022 These [...] following therapy that affects renal tubular secretion. LAB CA Calcium 8.2 Low 8.5-9.9 mg/dL LAB PHOS Phosphorus 3.1 2.3-4.8 mg/dL LAB ALB Albumin 2.9 Low 3.5-4.6 g/dL Performed By: #### RENAL ### # [facility] [address] [facility] [place] [address] C-REACTIVE PROTEIN Collected: 04/20/2024 5:19 AM Sta tus: F Source: [facility] TYPE CODE TESTS RESULT OUT OF RANGE REFERENCE UNITS LAB CRP C-Reactive Protein 22.9 High alert 0.0-5.0 mg/L Performed By: #### CRP #### [facility] [address] [facility] [address] POCT GLUCOSE Collected: 04/19/2024 8:35 PM Status: F Source: [facility] TYPE CODE TESTS RESULT OUT OF RANGE REFERENCE UNITS LAB GLUP POC Glucose 140 High alert 70-99 mg/dl LAB PERFP POC Performed on ACCU-CHEK Performed By: #### PGLU #### [facility] [address] [place] [address] POCT GLUCOSE Collected: 04/19/2024 3:57 PM Status: F Source: [facility] TYPE CODE TESTS RESULT OUT OF RANGE REFERENCE UNITS LAB GLUP POC Glucose 140 High alert 70-99 mg/dl LAB PERFP POC Performed on ACCU-CHEK Performed By: #### PGLU #### [facility] [address] [place] [address] POCT GLUCOSE Collected: 04/19/2024 11:14 AM Status: F Source: [facility] TYPE CODE TESTS RESULT OUT OF RANGE REFERENCE UNITS LAB GLUP POC Glucose 136 High alert 70-99 mg/dl LAB PERFP POC Performed on ACCU-CHEK Performed By: #### PGLU #### [facility] [address] [place] [address] CT ABDOMEN PELVIS W IV CONTRAST Observed: 04/19/2024 9:54 AM Status: F Source: [facility] EXAMINATION: CT OF THE ABDOMEN AND PELVIS WITH [id number]/29/2024 9:54 am TECHNIQUE: CT of the abdomen and pelvis was performed with the administration of intravenous contrast. Multiplanar reformatted images are provided for review. Automated exposure control, iterative reconstruction, and/or weight based adjustment of the mA/kV was utilized to reduce the radiation dose to as low as reasonably achievable. COMPARISON: CT abdomen and pelvis 02/21/2024. 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 Additional Contrast?->Oral What reading provider will be dictating this exam?->CRC FINDINGS: The included lung bases are clear. There is no visible pleural or pericardial effusion. The heart is normal in size. There is a calcified granuloma in the central right lower lobe. There is no evidence of pneumonia or pleural or pericardial effusions. The liver and gallbladder and adrenal glands and pancreas are unremarkable. There is been interval splenectomy with a surgical drain terminating in the splenic bed with no evidence of abscess. Kidneys enhance normally with no hydronephrosis or calculus disease. There is a simple cortical cyst along the anteromedial lower pole of the left kidney measuring 3.4 cm. There is no gross gastric abnormality. A nasogastric tube has been placed and terminates in the gastric fundus. There has been interval sigmoidectomy and placement of a right lower quadrant loop ileostomy. There is generalized small bowel ileus with no gross small bowel wall thickening or gross perienteric fatty infiltrative changes. There is minimally complex fluid in the posterior deep pelvis-presacral region likely reflecting postsurgical serosanguineous fluid with no evidence of abscess. A Patten catheter is present within the urinary bladder which is largely decompressed. IMPRESSION: 1. Interval sigmoidectomy and placement of a right lower quadrant diverting ileostomy with no complicating process. 2. Presumed postsurgical deep posterior pelvic serosanguineous fluid. 3. No evidence of abdominal or pelvic phlegmon or abscess or bowel obstruction. 4. Diffuse small bowel ileus pattern. No bowel wall pneumatosis or free intraperitoneal air. 5. Interval splenectomy with no complicating process. Interpreted by: Alberto Molina MD Signed by: Alberto Molina MD 04/19/24 Final result POCT GLUCOSE Collected: 04/19/2024 7:16 AM Status: F Source: [facility] TYPE CODE TESTS RESULT OUT OF RANGE REFERENCE UNITS LAB GLUP POC Glucose 140 High alert 70-99 mg/dl LAB PERFP POC Performed on ACCU-CHEK Performed By: #### PGLU #### [facility] [address] [place] [address] RENAL FUNCTION PANEL Collected: 024 6:01 AM Status: F Source: [facility] TYPE CODE TESTS RESULT OUT OF RANGE REFERENCE UNITS LAB NA Sodium 143 135-144 mEq/L LAB K Potassium 3.6 3.4-4.9 mEq/L LAB CL Chloride 103 95-107 mEq/L LAB CO2 CO2 34 High alert 20-31 mEq/L LAB AGAP Anion Gap 6 Low 9-15 mEq/L LAB GLU Glucose 131 High alert 70-99 mg/dL LAB BUN BUN 14 8-23 mg/dL LAB CREA Creatinine 0.82 0.70-1.20 mg/dL LAB GFR GFR >90.0 >60 Result Comment: Pediatric ca lculator link [email or web address]/[email or web address]_[email or web address] Effective Feb 21, 2022 These [...] following therapy that affects renal tubular secretion. LAB CA Calcium 8.2 Low 8.5-9.9 mg/dL LAB PHOS Phosphorus 2.6 2.3-4.8 mg/dL LAB ALB Albumin 2.9 Low 3.5-4.6 g/dL Performed By: #### RENAL ### # [facility] [address] [place] [address] CBC WITH PLATELET AND DIFFERENTIAL Collected: 04/19/2024 6:00 AM Status: F Source: [facility] TYPE CODE TESTS RESULT OUT OF RANGE REFERENCE UNITS LAB WBCIR WBC 10.4 4.8-10.8 K/uL LAB RBC RBC 2.85 Low 4.70-6.10 M/uL LAB HGB Hemoglobin 8.8 Low 14.0-18.0 g/dL LAB HCT Hematocrit 26.7 Low 42.0-52.0 % LAB MCV MCV 93.7 High alert 79.0-92.2 fL LAB MCH MCH 30.9 27.0-31.3 pg LAB MCHC MCHC 33.0 33.0-37.0 % LAB RDW RDW 15.4 High alert 11.5-14.5 % LAB PLT Platelet Count 671 High alert 130-400 K/uL LAB MYELO Myelocytes 2 % LAB NRBCR Nucleated RBC 2 /100 WBC LAB SMDG Smudge Cells 2.9 LAB ANISO Anisocytosis 1+ LAB MACRO Macrocytic 1+ LAB POLY Polychromasia 1+ LAB HYPO Hypochromia 1+ LAB POIK Poikilocytosis 2+ LAB OVAL Ovalocytes 1+ LAB STOMA Stomatocytes 1+ LAB TARG Target Cells 1+ LAB PLTR Platelet Slide Review Increased LAB SLREV Slide Review see below Result Comment: Slide review agrees with reported results LAB SEGR Neutrophils 77.0 % LAB LYMPR Lymphocytes 9.0 % LAB MONOR Monocytes 9.5 % LAB EOSR Eosinophils 3.0 % LAB BASOR Basophils 0.5 % LAB ASEGR Absolute Neutrophils 8.2 High alert 1.4-6.5 K/uL LAB ALYMR Absolute Lymphocytes 0.9 Low 1.0-4.8 K/uL LAB AMONR Absolute Monocytes 1.0 High alert 0.2-0.8 K/uL LAB AEOSR Absolute Eosinophils 0.3 0.0-0.7 K/uL LAB ABASR Absolute Basophils 0.0 0.0-0.2 K/uL Performed By: #### CBCWD ### # [facility] [address] [facility] [place] [address] POCT GLUCOSE Collected: 04/18/2024 4:21 PM Status: F Source: [facility] TYPE CODE TESTS RESULT OUT OF RANGE REFERENCE UNITS LAB GLUP POC Glucose 94 70-99 mg/dl LAB PERFP POC Performed on ACCU-CHEK Performed By: #### PGLU #### [facility] [address] [place] [address] POCT GLUCOSE Collected: 04/18/2024 11:56 AM Status: F Source: [facility] TYPE CODE TESTS RESULT OUT OF RANGE REFERENCE UNITS LAB GLUP POC Glucose 133 High alert 70-99 mg/dl LAB PERFP POC Performed on ACCU-CHEK Performed By: #### PGLU #### [facility] [address] [place] [address] POCT GLUCOSE Collected: 04/18/2024 8:16 AM Status: F Source: [facility] TYPE CODE TESTS RESULT OUT OF RANGE REFERENCE UNITS LAB GLUP POC Glucose 117 High alert 70-99 mg/dl LAB PERFP POC Performed on ACCU-CHEK Performed By: #### PGLU #### [facility] [address] [place] [address] POCT GLUCOSE Collected: 04/18/2024 6:29 AM Status: F Source: [facility] TYPE CODE TESTS RESULT OUT OF RANGE REFERENCE UNITS LAB GLUP POC Glucose 147 High alert 70-99 mg/dl LAB PERFP POC Performed on ACCU-CHEK Performed By: #### PGLU #### [facility] [address] [place] [address] CBC WITH PLATELET AND DIFFERENTIAL Collected: 04/18/2024 4:57 AM Status: F Source: [facility] Order Comment: Collection lima s been rescheduled by DEBBI at 04/18/2024 02:16 Reason: Patient has port or line TYPE CODE TESTS RESULT OUT OF RANGE REFERENCE UNITS LAB WBCIR WBC 14.2 High alert 4.8-10.8 K/uL LAB RBC RBC 2.98 Low 4.70-6.10 M/uL LAB HGB Hemoglobin 9.4 Low 14.0-18.0 g/dL LAB HCT Hematocrit 27.5 Low 42.0-52.0 % LAB MCV MCV 92.3 High alert 79.0-92.2 fL LAB MCH MCH 31.5 High alert 27.0-31.3 pg LAB MCHC MCHC 34.2 33.0-37.0 % LAB RDW RDW 15.5 High alert 11.5-14.5 % LAB PLT Platelet Count 570 High alert 130-400 K/uL LAB BAND Bands 1 % LAB MYELO Myelocytes 2 % LAB ANISO Anisocytosis 1+ LAB MACRO Macrocytic 1+ LAB POLY Polychromasia 1+ LAB POIK Poikilocytosis 1+ LAB STOMA Stomatocytes 1+ LAB PLTR Platelet Slide Review Increased LAB SLREV Slide Review see below Result Comment: Slide review agrees with reported results LAB SEGR Neutrophils 84.0 % LAB LYMPR Lymphocytes 6.0 % LAB MONOR Monocytes 7.6 % LAB EOSR Eosinophils 1.1 % LAB BASOR Basophils 0.4 % LAB ASEGR Absolute Neutrophils 12.4 High alert 1.4-6.5 K/uL LAB ALYMR Absolute Lymphocytes 0.9 Low 1.0-4.8 K/uL LAB AMONR Absolute Monocytes 1.1 High alert 0.2-0.8 K/uL LAB AEOSR Absolute Eosinophils 0.0 0.0-0.7 K/uL LAB ABASR Absolute Basophils 0.0 0.0-0.2 K/uL Performed By: #### CBCWD ### # [facility] [address] [place] [address] RENAL FUNCTION PANEL Collected: 4:57 AM Status: F Source: [facility] Order Comment: Collection lima s been rescheduled by DEBBI at 04/18/2024 02:16 Reason: Patient has port or line TYPE CODE TESTS RESULT OUT OF RANGE REFERENCE UNITS LAB NA Sodium 137 135-144 mEq/L LAB K Potassium 3.2 Low 3.4-4.9 mEq/L LAB CL Chloride 94 Low 95-107 mEq/L LAB CO2 CO2 31 20-31 mEq/L LAB AGAP Anion Gap 12 9-15 mEq/L LAB GLU Glucose 124 High alert 70-99 mg/dL LAB BUN BUN 10 8-23 mg/dL LAB CREA Creatinine 0.88 0.70-1.20 mg/dL LAB GFR GFR >90.0 >60 Result Comment: Pediatric ca lculator link [email or web address]_[email or web address] Effective Feb 21, 2022 These [...] following therapy that affects renal tubular secretion. LAB CA Calcium 8.5 8.5-9.9 mg/dL LAB PHOS Phosphorus 2.9 2.3-4.8 mg/dL LAB ALB Albumin 3.0 Low 3.5-4.6 g/dL Performed By: #### RENAL ### # [facility] [address] [place] [address] POCT GLUCOSE Collected: 04/17/2024 7:53 PM Status: F Source: [facility] TYPE CODE TESTS RESULT OUT OF RANGE REFERENCE UNITS LAB GLUP POC Glucose 116 High alert 70-99 mg/dl LAB PERFP POC Performed on ACCU-CHEK Performed By: #### PGLU #### [facility] [address] [place] [address] POCT GLUCOSE Collected: 04/17/2024 4:48 PM Status: F Source: [facility] TYPE CODE TESTS RESULT OUT OF RANGE REFERENCE UNITS LAB GLUP POC Glucose 89 70-99 mg/dl LAB PERFP POC Performed on ACCU-CHEK Performed By: #### PGLU #### [facility] [address] [place] [address] POCT GLUCOSE Collected: 04/17/2024 11:48 AM Status: F Source: [facility] TYPE CODE TESTS RESULT OUT OF RANGE REFERENCE UNITS LAB GLUP POC Glucose 102 High alert 70-99 mg/dl LAB PERFP POC Performed on ACCU-CHEK Performed By: #### PGLU #### [facility] [address] [place] [address] POCT GLUCOSE Collected: 04/17/2024 10:20 AM Status: F Source: [facility] TYPE CODE TESTS RESULT OUT OF RANGE REFERENCE UNITS LAB GLUP POC Glucose 118 High alert 70-99 mg/dl LAB PERFP POC Performed on ACCU-CHEK Performed By: #### PGLU #### [facility] [address] [place] [address] IR PICC WO SQ PORT/PUMP > 5 YEARS Observed: 04/17/2024 8:45 AM Status: F Source: [facility] PROCEDURE: ULTRASOUND GUIDED VASCULAR ACCESS. FLUOROSCOPY GUIDED PICC PLACEMENT 04/17/2024. HISTORY: ORDERING SYSTEM PROVIDED HISTORY: Perforated diverticulitis with abscess TECHNOLOGIST PROVIDED HISTORY: Reason for exam:->Perforated diverticulitis with abscess What reading provider will be dictating this exam?->CRC SEDATION: FLUOROSCOPY DOSE AND TYPE: Radiation Exposure Index: None, TECHNIQUE: Informed consent was obtained after a detailed explanation of the procedure including risks, benefits, and alternatives. Dermott protocol was observed. The right arm was prepped and draped in sterile fashion using maximum sterile barrier technique. Local anesthesia was achieved with lidocaine. A micropuncture needle was used to access the right brachial vein using ultrasound guidance. An ultrasound image demonstrating patency of the vein with needle tip located within it. An image was obtained and stored in PACs. A 0.018 guidewire was used to place a peel-a-way sheath and a 5 [place] dual lumen 44 cm PICC was advanced with fluoroscopic guidance with the tip at the cavo-atrial junction. The catheter flushed easily and there was a good blood return. The catheter was secured to the skin. The patient tolerated the procedure well and there were no immediate complications. FINDINGS: Fluoroscopic image demonstrates the tip of the catheter at the cavo-atrial junction. IMPRESSION: Successful ultrasound and fluoroscopy guided PICC placement Interpreted by: Sharath Moody MD Signed by: Sharath Moody MD 04/17/24 Final result CBC WITH PLATELET AND DIFFERENTIAL Collected: 04/17/2024 6:18 AM Status: F Source: [facility] TYPE CODE TESTS RESULT OUT OF RANGE REFERENCE UNITS LAB WBCIR WBC 12.7 High alert 4.8-10.8 K/uL LAB RBC RBC 2.84 Low 4.70-6.10 M/uL LAB HGB Hemoglobin 8.8 Low 14.0-18.0 g/dL LAB HCT Hematocrit 26.4 Low 42.0-52.0 % LAB MCV MCV 93.0 High alert 79.0-92.2 fL LAB MCH MCH 31.0 27.0-31.3 pg LAB MCHC MCHC 33.3 33.0-37.0 % LAB RDW RDW 15.7 High alert 11.5-14.5 % LAB PLT Platelet Count 521 High alert 130-400 K/uL LAB NRBCR Nucleated RBC 4 /100 WBC LAB SMDG Smudge Cells 2.9 LAB ANISO Anisocytosis 1+ LAB MACRO Macrocytic 1+ LAB POLY Polychromasia 1+ LAB HYPO Hypochromia 1+ LAB POIK Poikilocytosis 1+ LAB STOMA Stomatocytes 1+ LAB PLTR Platelet Slide Review Increased LAB SLREV Slide Review see below Result Comment: Slide review agrees with reported results LAB SEGR Neutrophils 87.0 % LAB LYMPR Lymphocytes 5.0 % LAB MONOR Monocytes 4.8 % LAB EOSR Eosinophils 4.0 % LAB BASOR Basophils 0.5 % LAB ASEGR Absolute Neutrophils 11.0 High alert 1.4-6.5 K/uL LAB ALYMR Absolute Lymphocytes 0.6 Low 1.0-4.8 K/uL LAB AMONR Absolute Monocytes 0.6 0.2-0.8 K/uL LAB AEOSR Absolute Eosinophils 0.5 0.0-0.7 K/uL LAB ABASR Absolute Basophils 0.0 0.0-0.2 K/uL Performed By: #### CBCWD ### # [facility] [address] [place] [address] RENAL FUNCTION PANEL Collected: 6:18 AM Status: F Source: [facility] TYPE CODE TESTS RESULT OUT OF RANGE REFERENCE UNITS LAB NA Sodium 138 135-144 mEq/L LAB K Potassium 3.3 Low 3.4-4.9 mEq/L LAB CL Chloride 99 95-107 mEq/L LAB CO2 CO2 24 20-31 mEq/L LAB AGAP Anion Gap 15 9-15 mEq/L LAB GLU Glucose 99 70-99 mg/dL LAB BUN BUN 12 8-23 mg/dL LAB CREA Creatinine 0.74 0.70-1.20 mg/dL LAB GFR GFR >90.0 >60 Result Comment: Pediatric ca lculator link [email or web address]_[email or web address] Effective Feb 21, 2022 These [...] following therapy that affects renal tubular secretion. LAB CA Calcium 8.3 Low 8.5-9.9 mg/dL LAB PHOS Phosphorus 2.5 2.3-4.8 mg/dL LAB ALB Albumin 2.9 Low 3.5-4.6 g/dL Performed By: #### RENAL ### # [facility] [address] [place] [address] RENAL FUNCTION PANEL Collected: 6:39 AM Status: F Source: [facility] TYPE CODE TESTS RESULT OUT OF RANGE REFERENCE UNITS LAB NA Sodium 139 135-144 mEq/L LAB K Potassium 3.8 3.4-4.9 mEq/L LAB CL Chloride 102 95-107 mEq/L LAB CO2 CO2 30 20-31 mEq/L LAB AGAP Anion Gap 7 Low 9-15 mEq/L LAB GLU Glucose 85 70-99 mg/dL LAB BUN BUN 13 8-23 mg/dL LAB CREA Creatinine 0.78 0.70-1.20 mg/dL LAB GFR GFR >90.0 >60 Result Comment: Pediatric ca lculator link [email or web address] Effective Feb 21, 2022 These [...] following therapy that affects renal tubular secretion. LAB CA Calcium 8.2 Low 8.5-9.9 mg/dL LAB PHOS Phosphorus 2.9 2.3-4.8 mg/dL LAB ALB Albumin 2.9 Low 3.5-4.6 g/dL Performed By: #### RENAL ### # [facility] [address] [place] [address] CBC WITH PLATELET AND DIFFERENTIAL Collected: 04/16/2024 6:39 AM Status: F Source: [facility] TYPE CODE TESTS RESULT OUT OF RANGE REFERENCE UNITS LAB WBCIR WBC 11.9 High alert 4.8-10.8 K/uL LAB RBC RBC 2.66 Low 4.70-6.10 M/uL LAB HGB Hemoglobin 8.1 Low 14.0-18.0 g/dL LAB HCT Hematocrit 24.9 Low 42.0-52.0 % LAB MCV MCV 93.6 High alert 79.0-92.2 fL LAB MCH MCH 30.5 27.0-31.3 pg LAB MCHC MCHC 32.5 Low 33.0-37.0 % LAB RDW RDW 16.1 High alert 11.5-14.5 % LAB PLT Platelet Count 385 130-400 K/uL LAB ATLYM Atypical Lymphs 1 % LAB NRBCR Nucleated RBC 4 /100 WBC LAB SMDG Smudge Cells 8.7 LAB PLTR Platelet Slide Review Adequate LAB SLREV Slide Review see below Result Comment: Slide review agrees with reported results LAB SEGR Neutrophils 83.0 % LAB LYMPR Lymphocytes 5.0 % LAB MONOR Monocytes 4.8 % LAB EOSR Eosinophils 4.0 % LAB BASOR Basophils 3.0 % LAB ASEGR Absolute Neutrophils 9.9 High alert 1.4-6.5 K/uL LAB ALYMR Absolute Lymphocytes 0.7 Low 1.0-4.8 K/uL LAB AMONR Absolute Monocytes 0.6 0.2-0.8 K/uL LAB AEOSR Absolute Eosinophils 0.5 0.0-0.7 K/uL LAB ABASR Absolute Basophils 0.4 High alert 0.0-0.2 K/uL Performed By: #### CBCWD ### # [facility] [address] [place] [address] RENAL FUNCTION PANEL Collected: 4:27 AM Status: F Source: [facility] TYPE CODE TESTS RESULT OUT OF RANGE REFERENCE UNITS LAB NA Sodium 141 135-144 mEq/L LAB K Potassium 3.5 3.4-4.9 mEq/L LAB CL Chloride 102 95-107 mEq/L LAB CO2 CO2 31 20-31 mEq/L LAB AGAP Anion Gap 8 Low 9-15 mEq/L LAB GLU Glucose 97 70-99 mg/dL LAB BUN BUN 12 8-23 mg/dL LAB CREA Creatinine 0.97 0.70-1.20 mg/dL LAB GFR GFR 86.9 >60 Result Comment: Pediatric ca lculator link [email or web address] Effective Feb 21, 2022 These [...] following therapy that affects renal tubular secretion. LAB CA Calcium 8.2 Low 8.5-9.9 mg/dL LAB PHOS Phosphorus 2.7 2.3-4.8 mg/dL LAB ALB Albumin 2.6 Low 3.5-4.6 g/dL Performed By: #### RENAL ### # [facility] [address] [place] [id number] MAGNESIUM Collected: 4 4:27 AM Status: F Source: [facility] TYPE CODE TESTS RESULT OUT OF RANGE REFERENCE UNITS LAB MG Magnesium 1.8 1.7-2.4 mg/dL Performed By: #### MG #### [facility] [address] [facility] [address] LIVER PANEL Collected: 04/15/2024 4:27 AM Status: F Source: [facility] TYPE CODE TESTS RESULT OUT OF RANGE REFERENCE UNITS LAB TP Total Protein 5.2 Low 6.3-8.0 g/dL LAB ALP Alkaline Phosphatase 88 35-104 U/L LAB ALT ALT 67 High alert 0-41 U/L LAB AST AST 21 0-40 U/L LAB BILIT Bilirubin Total 0.5 0.2-0.7 mg/dL LAB BILID Bilirubin Direct <0.2 0.0-0.4 mg/dL LAB BILII Bilirubin Indirect see below 0.0-0.6 mg/dL Result Comment: Indirect Derrek irubin cannot be calculated since Total Bilirubin and/or Direct Bilirubin is below measurable range. Performed By: #### LIVER ### # [facility] [address] [facility] [address] CBC WITH PLATELET AND DIFFERENTIAL Collected: 04/15/2024 4:27 AM Status: F Source: [facility] TYPE CODE TESTS RESULT OUT OF RANGE REFERENCE UNITS LAB WBCIR WBC 10.5 4.8-10.8 K/uL LAB RBC RBC 2.52 Low 4.70-6.10 M/uL LAB HGB Hemoglobin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 REFERENCE UNITS LAB WBCIR WBC 7.6 4.8-10.8 K/uL LAB RBC RBC 5.20 4.70-6.10 M/uL LAB HGB Hemoglobin 16.8 14.0-18.0 g/dL LAB HCT Hematocrit 50.6 42.0-52.0 % LAB MCV MCV 97.3 High alert 79.0-92.2 fL LAB MCH MCH 32.3 High alert 27.0-31.3 pg LAB MCHC MCHC 33.2 33.0-37.0 % LAB RDW RDW 14.6 High alert 11.5-14.5 % LAB PLT Platelet Count 199 130-400 K/uL Performed By: #### CBCND ### # [facility] [address] [place] [address] FRESH FROZEN PLASMA Observed: 04/03/2024 2:01 PM Status: F Source: [facility] PATIENT: SHANNAN Burdick MRN: [id number] LOC: [facility] BILL# : [id number] : 1960 SEX: M ORDERED BY: LEXI Moore ORDERED : 04/11/2024 03:13 COLLECTED: 04/03/2024 14:01 ORDER : [id number] RECEIVED : 04/03/2024 14:01 Two types on record-confirmation type not required. TEST NAME RESULT UNITS RANGES ABN FL ST Fresh Frozen Plasma E5548 FP Thaw 5D W1 F =<[id number] F Fresh Frozen Plasma E5548 FP Thaw 5D W1 F =<[id number] F Fresh Frozen Plasma E5548 FP Thaw 5D W1 F =<[id number] F Fresh Frozen Plasma E5548 FP Thaw 5D W1 F =<N5539H65 F Fresh Frozen Plasma E2701 FP thaw 5D W1 F =<[id number] F Fresh Frozen Plasma E5548 FP Thaw 5D W1 F =<[id number] F Fresh Frozen Plasma E5549 FP Thaw 5D W1 F =<[id number] F Fresh Frozen Plasma E2701 FP thaw 5D W1 F =<[id number] F Fresh Frozen Plasma E5548 FP Thaw 5D W1 F =<[id number] F Performed By: #### FFP #### [facility] [address] [place] [address] RBC LR Observed: 04/03/2024 2:01 PM Status: F Source: [facility] PATIENT: SHANNAN Burdick MRN: [id number] LOC: [facility] BILL# : [id number] : 1960 SEX: M ORDERED BY: LEXI Moore ORDERED : 04/11/2024 02:25 COLLECTED: 04/03/2024 14:01 ORDER : [id number] RECEIVED : 04/03/2024 14:01 Two types on record-confirmation type not required. TEST NAME RESULT UNITS RANGES ABN FL ST RBC LR E0336 RBC LR W1 F =<[id number] F RBC LR E0685 RBC Aph LR W1 F =<[id number] F RBC LR E0686 RBC Aph LR W1 F =<R8723E72 F RBC LR E0685 RBC Aph LR W1 F =<[id number] F RBC LR E0686 RBC Aph LR W1 F =<E6853G35 F RBC LR E0336 RBC LR W1 F =<[id number] F RBC LR E0336 RBC LR W1 F =<[id number] F RBC LR E0336 RBC LR W1 F =<[id number] F RBC LR E0336 RBC LR W1 F =<S6331R52 F RBC LR E0685 RBC Aph LR W1 F =<R6981W10 F RBC LR E0336 RBC LR W1 F =<Y7305P32 F Performed By: #### RL #### [facility] [address] [facility] [address] TYPE AND SCREEN CAPTURE 3 SCRN CELL Observed: 04/03/2024 2:01 PM Status: F Source: [facility] PATIENT: SHANNAN Burdick MRN: Heavenly [id number] LOC: [facility] BILL# : [id number] : 1960 SEX: M ORDERED BY: LEXI Moore ORDERED : 04/03/2024 13:57 COLLECTED: 04/03/2024 14:01 ORDER : [id number] RECEIVED : 04/03/2024 14:01 Two types on record-confirmation type not required. TEST NAME RESULT UNITS RANGES ABN FL ST ABORH Capture O POS F Antibody 3 Cell Scrn Captu NEG F Performed By: #### TS3C #### [facility] [address] [place] [address] PLATELET LR Observed: 04/03/2024 2:01 PM Status: F Source: [facility] PATIENT: SHANNAN Burdick MRN: Heavenly [id number] LOC: [facility] BILL# : [id number] : 1960 SEX: M ORDERED BY: LEXI Moore ORDERED : 04/11/2024 08:02 COLLECTED: 04/03/2024 14:01 ORDER : [id number] RECEIVED : 04/03/2024 14:01 Two types on record-confirmation type not required. TEST NAME RESULT UNITS RANGES ABN FL ST Platelet IRR LR E8342 APLT LR W1 F =<[id number] F Performed By: #### PL #### [facility] [address] [place] [address] FAMILY MEDICINE OFFICE/CLINI C NOTE Observed: 02/28/2024 3:31 PM Status: F Source: [facility] Medicine Office/Clini c Note Chief Complaint leg and hip pain HPI Staff complaints of leg and hip pain Onset: a week Characteristics: left side, think it comes from back pain, hard to do daily activities, hip down to calf, OTC tried: ice on back, was [place] pain [place] [facility] they got new drs who are not credentialed with his insurance so they placed him on hold History of Present Illness I have reviewed and verified the staff HPI to be accurate for this encounter. Portions of this record have been created with voice recognition software. Occasional wrong-word or ?iuguz-g-rfyv? substitutions may have occurred due to the [...] department. Follow-up With When Contact Information Curt AQUINO, CONCRETE VIBRATOR OPERATOR-POLYMER MATERIALS CONSULTANT, Beth Dash [address] [place] [phone] Additional Instructions: Patient Education Hypertension, Adult, Kqlx-br-Roxo Sciatica, Btwn-fe-Exre Acute Pain, Adult Problem List/Past Medical History [...] sites Restless leg syndrome Sacroiliitis Sciatica Historical Smoker Procedure/Surgical History Injection of facet joint using fluoroscopic guidance [...] left flank area, transforaminal epidural steroid injection. Medications atorvastatin 20 mg Tab, 20 mg= 1 tab(s), Oral, Daily, 3 refills buPROPion 150 mg ER Tab, 150 mg= 1 tab(s), Oral, BID, 3 refills cilostazol 100 mg Tab, See Instructions, 3 refills gabapentin 600 mg Tab, 600 mg= 1 tab(s), Oral, TID gabapentin 800 mg Tab, 800 mg= 1 tab(s), Oral, TID Metoprolol succinate 25 mg ER Tablet Plavix 75 mg Tab, 75 mg= 1 tab(s), Oral, Daily Protonix 40 mg Tab-DR, 40 mg= 1 tab(s), Oral, Daily, 3 refills ropinirole 1 mg Tab, 1 mg= 1 tab(s), Oral, Daily, 1 refills triamcinolone Top 0.1% Oint, 1 ted, Topical, TID, PRN Allergies No Known Allergies No Known Medication Allergies Social History Alcohol - Denies Alcohol Use, 04/27/2022 Past, Beer, 08/06/2020 Employment/School Employed, 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 Never Smokeless Tobacco Use:. Cigarettes, 1 per day. 47 year(s). Started age 11.0 Years. Previous treatment: None. Ready to change: No. Yes, 02/28/2024 10 or more cigarettes (1/2 pack or more)/day in last 30 days Tobacco Use:., 02/10/2023 10 or more cigarettes (1/2 pack or more)/day in last 30 days Tobacco Use:., 01/18/2023 Family History Alcoholism: Father. Arthritis: Mother. Cancer: Mother and Father. Immunizations Vaccine Date Status Comments influenza virus vaccine, inactivated - Not Given Postpone due to refusal influenza virus vaccine, inactivated - Not Given Patient Refuses diphtheria/pertussis, acel/tetanus adult 08/21/2021 Given SARS-CoV-2 (COVID-19) mRNA BNT-162b2 vax 09/04/2020 Given Prophylaxis SARS-CoV-2 (COVID-19) mRNA BNT-162b2 vax 08/07/2020 Given Prophylaxis influenza virus vaccine, inactivated - Not Given Patient Refuses influenza virus vaccine, inactivated 04/11/2019 Given diphtheria/pertussis, acel/tetanus adult 03/24/2017 Given Result Comment: Electronical ly Signed By: Aurora Tena\.quinton\Date and Time Signed: 02/28/24 15:33 EDT PATIENT EDUCATION Observed: 02/28/2024 3:30 PM Status: C Source: [facility] Patient Education Cardiovascular Hypertension, Adult Hypertension is [...] at each meal with low-fat (lean) proteins. Low- fat proteins include fish, chicken without skin, eggs, [...] Keep all follow-up visits. Medicines ? Take qnuw-mxe-suvqqpv and prescription medicines only as told by [...] heart to work harder to pump blood. ? For most people, a normal blood pressure is less than 120/80. ? Making healthy choices can help lower blood pressure. If your blood pressure does not get lower with healthy choices, you may need to take medicine. This information is not intended to replace advice given to you by your health care provider. Make sure you discuss any questions you have with your health care provider. Document Revised: 02/24/2022 Document Reviewed: 02/24/2022 [employer] Patient Education ? 2023 [employer].Orthopedics Sciatica Sciatica is pain, weakness, tingling, or [...] on it. This may be caused by: ? A disk in between the bones of the spine bulging out too far (herniated disk). ? Changes in the spinal disks due to aging. ? A condition that affects a muscle in the butt. ? Extra bone growth near the sciatic nerve. ? A break (fracture) of the area between your hip bones (pelvis). ? . ? Tumor. This is rare. What increases the risk? You are more likely to develop this condition if you: ? Play sports that put pressure or stress on the spine. ? Have poor strength and ease of movement (flexibility). ? Have had a back injury or back surgery. ? Sit for long periods of time. ? Do activities that involve bending or lifting over and over again. ? Are very overweight (obese). What are the signs or symptoms? Symptoms can vary from mild to very bad. They may include: ? Any of these problems in the lower back, leg, hip, or butt: ? Mild tingling, loss of feeling, or dull aches. ? A burning feeling. ? Sharp pains. ? Loss of feeling in the back of the calf or the sole of the foot. ? Leg weakness. ? Very bad back pain that makes it hard to move. These symptoms may get worse when you cough, sneeze, or laugh. They may also get worse when you sit or stand for long periods of time. How is this treated? This condition often gets better without any treatment. However, treatment may include: ? Changing or cutting back on physical activity when you have pain. ? Exercising, including strengthening and stretching. ? Putting ice or heat on the affected area. ? Shots of medicines to relieve pain and swelling or to relax your muscles. ? Surgery. Follow these instructions at home: Medicines ? Take sqcd-llw-rpsxzlv and prescription medicines only as told by your doctor. ? Ask your doctor if you should avoid driving or using machines while you are taking your medicine. Managing pain ? If told, put ice on the affected area. To do this: ? Put ice in a plastic bag. ? Place a towel between your skin and the bag. ? Leave the ice on for 20 minutes, 2?3 times a day. ? If your skin turns bright red, take off the ice right away to prevent skin damage. The risk of skin damage is higher if you cannot feel pain, heat, or cold. ? If told, put heat on the affected area. Do this as often as told by your doctor. Use the heat source that your doctor tells you to use, such as a moist heat pack or a heating pad. ? Place a towel between your skin and the heat source. ? Leave the heat on for 20?30 minutes. ? If your skin turns bright red, take off the heat right away to prevent huerta. The risk of huerta is higher if you cannot feel pain, heat, or cold. Activity ? Return to your normal activities when your doctor says that it is safe. ? Avoid activities that make your symptoms worse. ? Take short rests during the day. ? When you rest for a long time, do some physical activity or stretching between periods of rest. ? Avoid sitting for a long time without moving. Get up and move around at least one time each hour. ? Do exercises and stretches as told by your doctor. ? Do not lift anything that is heavier than 10 lb (4.5 kg). ? Avoid lifting heavy things even when you do not have symptoms. ? Avoid lifting heavy things over and over. ? When you lift objects, always lift in a way that is safe for your body. To do this, you should: ? Bend your knees. ? Keep the object close to your body. ? Avoid twisting. General instructions ? Stay at a healthy weight. ? Wear comfortable shoes that support your feet. Avoid wearing high heels. ? Avoid sleeping on a mattress that is too soft or too hard. You might have less pain if you sleep on a mattress that is firm enough to support your back. Contact a doctor if: ? Your pain is not controlled by medicine. ? Your pain does not get better. ? Your pain gets worse. ? Your pain lasts longer than 4 weeks. ? You lose weight without trying. Get help right away if: ? You cannot control when you pee (urinate) or poop (have a bowel movement). ? You have weakness in any of these areas and it gets worse: ? Lower back. ? The area between your hip bones. ? Butt. ? Legs. ? You have redness or swelling of your back. ? You have a burning feeling when you pee. Summary ? Sciatica is pain, weakness, tingling, or loss of feeling (numbness) along the sciatic nerve. This may include the lower back, legs, hips, and butt. ? This condition happens when the sciatic nerve is pinched or has pressure put on it. ? Treatment often includes rest, exercise, medicines, and putting ice or heat on the affected area. This information is not intended to replace advice given to you by your health care provider. Make sure you discuss any questions you have with your health care provider. Document Revised: 08/15/2022 Document Reviewed: 08/15/2022 [employer] Patient Education ? 2023 [employer].Acute Pain, Adult Acute pain is a type [...] ill. Follow these instructions at home: Medicines ? Take xpnw-tgf-pbosffu and prescription medicines only as told by your health care provider. ? Take the lowest dose of medicine for the shortest amount of time needed to relieve the pain. ? If you are taking prescription pain medicine: ? Do not stop taking the medicine suddenly. Talk to your health care provider about how and when to stop taking prescription medicine. ? Do not take more pills than told by your health care provider even if your pain is severe. ? Do not take other wbuv-uig-lbeoxfe pain medicines in addition to prescription pain medicine unless told by your health care provider. ? Keep your medicine in a safe place, away from children or anyone who could use it in a way that it was not prescribed. ? Ask your health care provider if the medicine prescribed to you requires you to avoid driving or using machinery. Managing pain, stiffness, and swelling ? If told, put ice on the affected area. ? Put ice in a plastic bag. ? Place a towel between your skin and the bag. ? Leave the ice on for 20 minutes, 2?3 times a day. ? If told, apply heat to the affected area as often as told by your health care provider. Use the heat source that your health care provider recommends, such as a moist heat pack or a heating pad. ? Place a towel between your skin and the heat source. ? Leave the heat on for 20?30 minutes. ? If your skin turns bright red, remove the ice or heat right away to prevent skin damage. The risk of damage is higher if you cannot feel pain, heat, or cold. Managing constipation Your medicines may cause constipation. To prevent or treat constipation, you may need to: ? Drink enough fluid to keep your urine pale yellow. ? Take yfig-ivt-onihopz or prescription medicines. ? Eat foods that are high in fiber, such as beans, whole grains, and fresh fruits and vegetables. ? Limit foods that are high in fat and processed sugars, such as fried or sweet foods. Activity ? Rest as told by your health care provider. ? Return to your normal activities as told by your health care provider. Ask your health care provider what activities are safe for you. ? Ask your health care provider if doing physical therapy exercises to improve movement and strength can help you manage your pain. General instructions ? Check your pain level as told by your health care provider. ? Ask your health care provider if distraction, relaxation, or aromatherapy can help you manage your pain. ? Keep all follow-up visits. Your health care provider will monitor your pain level. Contact a health care provider if: ? Your pain is not controlled by medicine. ? Your pain does not improve or gets worse. ? You have side effects from pain medicines. Get help right away if: ? You have severe pain. ? You have trouble breathing. ? You faint, or another person sees you faint. ? You have chest pain or pressure that lasts for more than a few minutes, or if you have other symptoms along with chest pain, including: ? Pain or discomfort in one or both arms, your back, neck, jaw, or stomach. ? Shortness of breath. ? A cold sweat. ? Nausea. ? Feeling light-headed. These symptoms may be an emergency. [...] provider. Document Revised: 11/30/2022 Document Reviewed: 11/30/2022 [employer] Patient Education ? 2023 [employer] AMBULATORY VISIT SUMMARY Observed: 02/27 2:58 PM Status: F Source: [facility] Ambulatory Visit Summary DENVER PERDUE :1960 Visit Date:02/28/2024 Ambulatory Visit Instructions Your Diagnosis Chronic sciatica of left side Your Care Team Attending Physician - Shanel VICK, [place] Primary Care Physician - Curt MSN, CONCRETE VIBRATOR OPERATOR-POLYMER MATERIALS CONSULTANT, Beth Burdick. This Is Your Medications List atorvastatin (atorvastatin [...] Appointments Monday 7:20 AM EDT With: Curt AQUINO, CONCRETE VIBRATOR OPERATOR-ROBERT, Beth Dash Where: [place] [id number]- Medications What How Much When Instructions Unchanged [...] you for choosing us for your care. [facility] Observed: 09/13/2023 1:04 PM Status: F Source: [facility] [id number] ALLERGIES DATE TYPE / CODE NAME / CODE REACTION SEVERITY SOURCE SYSTEMIC/50506279 6(SNOMED CT) NO KNOWN ALLERGIES [facility] SYSTEMIC/26143499 6(SNOMED CT) ALLERGIES NOT ON FILE [facility] [id number](SNOM ED CT) No Known Allergies [facility] [id number](SNOM ED CT) No Known Medication Allergies [facility] CHRIS436861212(SNOM ED CT) Unknown [facility] ENCOUNTERS ADMIT/DISCHARGE ACCOUNT NUMBER ADMITTING ENCOUNTER CLASS LOCATION SOURCE 02/05/2025 [id number] Ambulatory Building:[facility] 01/13/2025/01/14/20 [id number] Ambulatory FM WillardBuil ding:FM WillardRoom : Exam 3 [facility] 01/08/2025 [id number] Ambulatory Building:[facility] 12/31/2024 [id number] Ambulatory Building:[facility] 12/25/2024 [id number] Ambulatory Building:[facility] 12/02/2024 [id number] Beth Ramon Ambulatory FTMCBuildin g:FT LAB [facility] 12/02/2024 [id number] Beth Ramon Ambulatory FTMCBuildin g:FT LAB [facility] 12/02/2024/12/03/19 [id number] Beth Ramon Ambulatory FTMCBuildin g:FT LAB [facility] 12/02/2024/12/03/19 [id number] Ambulatory FM WillardBuil ding:FM WillardRoom : Exam 2 [facility] 11/18/2024/11/19/19 [id number] Ambulatory PM BellevdebbyBui lding:PM [facility] 11/12/2024/11/13/19 25 [id number] Ambulatory Buildin [id number] [facility] 11/12/2024/11/13/19 25 [id number] Ambulatory Building:[facility] 11/06/2024/11/07/19 25 [id number] Ambulatory Buildin [id number] [facility] 11/06/2024/11/07/19 25 [id number] Ambulatory Buildin [id number] [facility] 11/06/2024/11/07/19 [id number] Ambulatory Buildin [id number] [facility] 11/06/2024/11/07/19 [id number] Ambulatory Buildin [id number] [facility] 11/06/2024 [id number] DAYAN MARTINEZ Ambulatory FTMCBuildin g:FT XR [facility] 11/06/2024/11/07/19 [id number] DAYAN MARTINEZ Ambulatory FTMCBuildin g:FT XR [facility] 10/28/2024/10/31/19 [id number] Ambulatory Building[facility] 10/22/2024/10/23/19 25 [id number] Ambulatory Buildin [id number] [facility] 10/22/2024/10/23/19 [id number] Ambulatory Buildin [id number] [facility] 10/21/2024/10/22/19 [id number] Ambulatory Building:[facility] 09/17/2024/09/20/19 [id number] Amb[facility] 09/17/2024/09/20/19 25 [id number] Ambulatory Building:[facility] 09/03/2024/09/04/19 [id number] Ambulatory Building:[facility] 08/19/2024/08/20/19 25 [id number] Ambulatory PM AbelinoBui lding:PM [facility] 07/30/2024/07/31/19 25 [id number] Ambulatory FM WillardBuil ding:FM WillardRoom : Exam 2 [facility] 07/04/2024/08/08/19 25 [id number] Beth Ramon Ambulatory CD:[id number]: CD:[id number] 25 [facility] 07/01/2024/07/03/19 [id number] BELTRAN IZAGUIRRE Inpatient Encounter Building: WTRoom: [id number]: [address] [place] [address] 06/10/2024/06/10/19 [id number] BELTRAN IZAGUIRRE Ambulatory Building: L1Room: ORPOOLBed: [facility] 06/04/2024/06/04/19 25 [id number] Ambulatory FM WillardBuil ding:FM WillardRoom : Exam 2 [facility] 05/08/2024/05/08/20 24 [id number] Ambulatory Building:[facility] 05/05/2024/05/05/20 24 [id number] Ambulatory Building:[facility] 05/04/2024/05/04/20 24 [id number] Ambulatory Building:[facility] 05/03/2024/05/03/20 24 [id number] Ambulatory Building:[facility] 05/02/2024/05/02/20 24 [id number] Ambulatory Building:[facility] 05/01/2024/05/01/20 24 [id number] Ambulatory Building:[facility] 04/30/2024/04/30/20 24 [id number] Ambulatory FM WillardBuil ding: Milton [facility] 04/30/2024/04/30/20 24 [id number] Ambulatory Building:[facility] 04/29/2024/04/29/20 24 [id number] Ambulatory Building:[facility] 04/28/2024/04/28/20 24 [id number] Ambulatory Building:[facility] 04/27/2024/04/27/20 24 [id number] Ambulatory Building:[facility] 04/26/2024/04/26/20 24 [id number] Ambulatory Building:[facility] 04/26/2024/06/03/19 25 [id number] Beth Ramon Ambulatory CD:[id number]: CD:[id number] 25 [facility] 04/22/2024/04/26/20 24 [id number] Beth Ramon Ambulatory CD:[id number] 75Building: CD:[id number] 25 [facility] 04/20/2024/04/25/20 24 [id number] DEVON MANCINI Inpatient Encounter Building:CR HBRoom: G798Scj: [facility] 04/10/2024/04/20/20 24 [id number] BELTRAN IZAGUIRRE Inpatient Encounter Building:C4 WTRoom: D342Izl: [facility] 04/03/2024/04/07/20 24 [id number] Ambulatory Building:LP AT [facility] 03/11/2024/03/11/20 24 [id number] Ambulatory PM BellevueBui lding:PM [facility] 02/28/2024 [id number] Ambulatory CC NorRadhal ding:CC [facility] 02/28/2024/02/28/20 24 [id number] Ambulatory CC NorwalAdelfouil ding:[facility] 2 [facility] 02/26/2024/02/26/20 24 [id number] Ambulatory PM BellevueBui lding:PM [facility] 12/07/2018 [id number] Ambulatory CD:[id number]: CD:[id number] 69 [facility] PAYERS ENCOUNTER GUARANTOR PAYER SUBSCRIBER SOURCE 02/05/2025 DENVER REINOSO: [place], [place] [address]Lcg: () Primary Insurance:[facility] Number: [id number] Date:2024-10-[address] [place] [address]GM: DENVER GAMINOOB: [id number] [place], [place] [address]Tmw: (HP) [facility] 01/13/2025 DENVER REINOSO: [facility] STTel: [phone] (HP) Primary Insurance:PARAMOUNTPolic y Number: [id number] Date:7956-11-97RJ [address] [place] [address]UX: DENVERDONALD SANTAAN [facility] 01/08/2025 DENVER MURRYDOB: [place], [place] [address]Gyt: (HP) Primary Insurance:[place] ELITEPolicy Number: [id number] Date:2024-10-20P [address] [place] [address]HS: DENVER LISSETYDOB: 7580-32-82ZJS45 [place], [place] [address]Gkt: (HP) [facility] 12/31/2024 DENVER MURRYDOB: [place], [place] [address]Ngv: (HP) Primary Insurance:[place] ELITEPolicy Number: [id number] Date:2024-10-20P O [address] [address]XO: DENVER MURRYDOB: [id number] [place], [place] [address]Sup: (HP) [facility] 12/25/2024 DENVER MURRYDOB: [place], [place] [address]Tcb: (HP) Primary Insurance:[place] ELITEPolicy Number: [id number] Date:2024-10-20P [address] [place] [address]TJ: DENVER MURRYDOB: 5934-34-84IFY00 [place], [place] [address]Kjp: (HP) [facility] 12/02/2024 DENVERDONALD DARLINGYDOB: [facility] STTel: [phone] (HP) Primary Insurance:PARAMOUNTPolic y Number: [id number] Date:8311-24-45GU [place]AMERA [place], [place] [address]KS: DENVER SANTANA [facility] 12/02/2024 DENVER L MURRYDOB: [address] STTel: [phone] (HP) Primary Insurance:PARAMOUNTPolic y Number: [id number] Date:4954-41-27AZ [place]AMERA [place], [place] [address]NH: EDNVER SANTANA [facility] 12/02/2024 DENVER Heavenly MURRYDOB: W [facility] STTel: [phone] (HP) Primary Insurance:PARAMOUNTPolic y Number: [id number] Date:8792-69-28TV TAMERA [address] [place] [address]FJ: DENVER SANTANA [facility] 11/18/2024 Denverdonald DarlingyDOB: [place] [phone] Primary Insurance:ParamountPolic y Number: Effective Date:2295-84-75Idva Name:MEDP O Tamera [address] [place] [address]RJ: Denver Heavenly MurryDOB: 0181-98-25CDZ85 [place] [address] [facility] 11/12/2024 Primary Insurance:[place] ELITE MEDICAREPolicy Number: [id number] Date:2024-10-20 DENVER MURRYDOB: 4583-85-71WRZ85 [place] [address] [facility] 11/12/2024 Primary Insurance:[place] ELITE MEDICAREPolicy Number: [id number] Date:2024-10-20 DENVER MURRYDOB: 6207-79-68DWU15 [place] [address] [facility] 11/06/2024 Primary Insurance:NATAN ALEJANDRO MEDICAREPolicy Number: [id number] Date:2024-10-20 DENVER DARLINGYDOB: 1598-44-81BSV69 [place] [address] [facility] 11/06/2024 Primary Insurance:NATAN ALEJANDRO MEDICAREPolicy Number: [id number] Date:2024-10-20 DENVER MURRYDOB: 8022-17-39YUV58 [place] [address] [facility] 11/06/2024 Primary Insurance:NATAN ALEJANDRO MEDICAREPolicy Number: [id number] Date:2024-10-20 DENVER MURRYDOB: 2394-08-66NUG77 [place] [address] [facility] 11/06/2024 Primary Insurance:NATAN ALEJANDRO MEDICAREPolicy Number: [id number] Date:2024-10-20 DENVER DARLINGYDOB: 4030-30-81KPA37 [place] [address] [facility] 11/06/2024 DENVER L MURRYDOB: W [facility] STTel: [phone] (HP) Primary Insurance:MEDICAREPolicy Number: [id number] Date:9200-50-87XK[address] [address]WA: [facility]ALD [facility] 11/06/2024 Secondary Insurance:PARAMOUNTPolic y Number: [id number] Date: [place], [place] [address]AC: DENVER L MAX [facility] 11/06/2024 DENVER L MURRYDOB: W [facility] STTel: [phone] (HP) Primary Insurance:PARAMOUNTPolic y Number: [id number] Date:4026-37-72NB [address] [address]UW: DENVER L MAX [facility] 10/28/2024 DENVER GAMINOOB: [place], [place] [address]Wzp: (HP) Primary Insurance:NATAN ELITEPolicy Number: [id number] Date:2024-10-20P [address] [address]TG: DENVERDONALD GAMINOOB: [id number] [place], [place] [address]Dix: (HP) [facility] 10/22/2024 Primary Insurance:[place] ELITE MEDICAREPolicy Number: [id number] Date:2024-10-20 DENVER GAMINOOB: [id number] [place] [address] [facility] 10/22/2024 Primary Insurance:NATAN ELITE MEDICAREPolicy Number: [id number] Date:2024-10-20 DENVER LISSETINGRIDOB: 6048-17-09IYZ82 [place] [address] [facility] 10/21/2024 Primary Insurance:NATAN ELITE MEDICAREPolicy Number: [id number] Date:2024-10-20 DENVER GAMINOOB: 0670-81-92MUS49 [place] [address] [facility] 09/17/2024 DENVER GAMINOOB: [place], [place] [address]Ulh: (HP) Primary Insurance:PERKINSChampion Windows ACAPolicy Number: [id number] Date:1960-82-10[address] [place] [address]MX: DENVERDONALD GAMINOOB: [id number] [place], [place] [address]Hsx: (HP) [facility] 09/17/2024 DENVER GAMINOOB: [place], [place] [address]Xme: (HP) Primary Insurance:PERKINS Vobile ACAPolicy Number: [id number] Date:9846-95-49WM [address] [address]XF: DENVERDONALD GAMINOOB: 8279-00-66JXD54 [place], [place] [address]Smc: (HP) [facility] 09/03/2024 DENVERDONALD GAMINOOB: [place] [id number]: (HP) Primary Insurance:Resolve TherapeuticsPolicy Number: [id number] Date:2023-08-03 DENVER GAMINOOB: 0089-19-48IQI02 [place] [phone] [place] [address] [facility] 08/19/2024 Denverdonald GaminoOB: [place] [address] Primary Insurance:Responde Ai Number: Effective Date:8261-07-62Xxdu Name:[address] [address]QO: Denverdonald DarlingyDOB: 7880-78-92WAW84 [place] [phone] [place] [address] 07/30/2024 DENVERDONALD GAMINOOB: [facility] STTel: [phone]~~[phone] (HP) Primary Insurance:[employer]Point Globaly Number: [id number] Date:0455-94-89CN[address] [address]JV: [id number] DENVER Burdick LISSETLaloOUSMANE [facility] 07/01/2024 DENVER Heavenly DARLINGYDOB: [place], [place] [address]Gbz: (HP) Primary Insurance:[employer] ACAPolicy Number: [id number] Date:7648-36-88NB [address] [address]UH: DENVER GAMINOOB: [id number] [place], [place] [address]Ibp: (HP) [facility] 06/10/2024 DENVER GAMINOOB: [place], [place] [address]Dzv: (HP) Primary Insurance:PERKINS MARKETPLACE ACAPolicy Number: [id number] Date:0188-69-91XO [address] [address]CA: DENVER GAMINOOB: 3274-22-79QHW82 [place], [place] [address]Pog: (HP) [facility] 06/04/2024 DENVER GAMINOOB: [facility]: [phone]~~[phone] (HP) Primary Insurance:MolinaPolicy Number: [id number] Date:5155-28-23SJ [address] [address]QQ: [phone] DENVER PERDUEUNK [facility] 05/08/2024 DENVER GAMINOOB: [place], [place] [address]Qlz: (HP) Primary Insurance:PERKINS BandtasticPLACE ACAPolicy Number: [id number] Date:0921-21-98WU [address] [address]PV: DENVER GAMINOOB: [id number] [place], [place] [address]Dcd: (HP) [facility] 05/05/2024 DENVER GAMINOOB: [place], [place] [address]Kdq: (HP) Primary Insurance:PERKINS MARKETPLACE ACAPolicy Number: [id number] Date:2813-68-96MP [address] [address]DI: DENVER L MURRYDOB: 7197-21-17KKU11 [place], [place] [address]Mut: (HP) [facility] 05/04/2024 DENVER L MURRYDOB: [place], [place] [address]Ocv: (HP) Primary Insurance:[employer] ACAPolicy Number: [id number] Date:7334-34-38HV[address] [address]RH: DENVER L MURRYDOB: 5630-00-98LGX19 [place], [place] [address]Mym: (HP) [facility] 05/03/2024 DENVER L MURRYDOB: [place], [place] [address]Ryi: (HP) Primary Insurance:[employer] ACAPolicy Number: [id number] Date:9414-47-74ON[address] [address]SI: DENVER L MURRYDOB: 4180-60-29ZWL64 [place], [place] [address]Ual: (HP) [facility] 05/02/2024 DENVER L MURRYDOB: [place], [place] [address]Zcb: (HP) Primary Insurance:[employer] ACAPolicy Number: [id number] Date:7630-11-94DR[address] [address]PP: DENVER L MURRYDOB: 0692-32-69MVY60 [place], [place] [address]Uhn: (HP) [facility] 05/01/2024 DENVER L MURRYDOB: [place], [place] [address]Cyj: (HP) Primary Insurance:PERKINS MARKETPLACE ACAPolicy Number: [id number] Date:2887-32-40WZ [address] [place] [address]EY: DENVER DARLINGYDOB: 7489-10-81GLS26 [place], [place] [address]Wzx: (HP) [facility] 04/30/2024 DENVER DARLINGYDOB: [facility]: [phone]~~[phone] (HP) Primary Insurance:CaskPoledulioy Number: [id number] Date:0582-05-17ZX [address] [place] [address]SG: [phone] DENVER SANTANA [facility] 04/30/2024 DENVER DARLINGYDOB: [place], [place] [address]Gyv: (HP) Primary Insurance:[employer] ACAPolicy Number: [id number] Date:1480-06-52SP [address] [place] [address]SC: DENVER DARLINGYDOB: 6981-48-61GHX45 [place], [place] [address]Lgi: (HP) [facility] 04/29/2024 DENVER DARLINGYDOB: [place], [place] [address]Ith: (HP) Primary Insurance:[employer] ACAPolicy Number: [id number] Date:7867-41-89WK [address] [place] [address]UO: DENVER DARLINGYDOB: 8951-29-47GBV09 [place], [place] [address]Qqm: (HP) [facility] 04/28/2024 DENVER GAMINOOB: [place], [place] [address]Syd: (HP) Primary Insurance:PERKINSChampion Windows ACAPolicy Number: [id number] Date:3311-50-20QD [address] [address]QQ: DENVER L MURRYDOB: 0174-58-39ZHY51 [place], [place] [address]Wff: (HP) [facility] 04/27/2024 DENVER L MURRYDOB: [place], [place] [address]Gly: (HP) Primary Insurance:PERKINS Vobile ACAPolicy Number: [id number] Date:6563-83-00LE [address] [address]PY: DENVER L MURRYDOB: 9273-11-48MEY33 [place], [place] [address]Vlw: (HP) [facility] 04/26/2024 DENVER L MURRYDOB: [place], [place] [address]Wrm: (HP) Primary Insurance:PERKINSChampion Windows ACAPolicy Number: [id number] Date:3614-83-01YN [address] [address]TI: DENVER L MURRYDOB: 5862-70-92EXZ34 [place], [place] [address]Xru: (HP) [facility] 04/20/2024 DENVER L MURRYDOB: [place], [place] [address]Abt: (HP) Primary Insurance:PERKINS Vobile ACAPolicy Number: [id number] Date:4574-16-75FY [address] [address]RT: DENVER L MURRYDOB: 7911-22-48XCI42 [place], [place] [address]Ybd: (HP) [facility] 04/10/2024 DENVER GAMINOOB: [place], [place] [address]Omi: (HP) Primary Insurance:[employer] ACAPolicy Number: [id number] Date:2958-49-24AL[address] [address]QC: DENVER DARLINGYDOB: 1369-93-15ZXO32 [place], [place] [address]Ipp: (HP) [facility] 04/03/2024 DENVER GAMINOOB: [place], [place] [address]Cmp: (HP) Primary Insurance:[employer] ACAPolicy Number: [id number] Date:1635-95-30VC [address] [address]EV: DENVER GAMINOOB: 7731-26-49VDJ30 [place], [place] [address]Gpc: (HP) [facility] 03/11/2024 [place] GaminoOB: [place] [address] Primary Insurance:MolinaPolicy Number: Effective Date:2626-91-64Ynkq Name:[facility] O [address] [address]GW: Denverdonald DarlingyDOB: 5937-49-53EXS27 [place] [address] [facility] 02/28/2024 DENVER GAMINOOB: [facility] STTel: [phone]~~[phone] (HP) Primary Insurance:MolinaPolicy Number: [id number] Date:2873-31-56EI[address] [address]GJ: [phone] DENVER L MAX [facility] 02/26/2024 Denver Reinoso: [place] [address] Primary Insurance:MolinaPolicy Number: Effective Date:8614-37-05Rapt Name:RO [address] [address] [address]TJ: [place] Reinoso: 4428-66-60LAL39 [place] [address] [facility] 12/07/2018 DENVER REINOSO: [facility] STTel: [phone] (HP) Primary Insurance:MEDICAL MUTUALPolicy Number: Effective Date:6093-35-03[address] [address]AE: [facility]al[facility]
--- OUTSIDE RECORDS SUMMARY | 2025-02-20 09:35 | XMS_ITS | Encounter Summary ---
Author Organization [facility] Address [address], [address] [place] [address] Care Team Providers Care String Cutter Name Role Phone Sherie Ramon LEAD HANDLER - GLOBAL CATEGORY MANAGER Primary Care Provider + Reason for Referral * Imaging (Routine) - Closed Specialty Diagnoses / Procedures Referred By Contac t Referred To Contact Radiology Diagnoses Lumbosacral radiculopathy M54.17 (ICD-10-CM) - Lumbosacral radiculopathy Procedures CT LUMBAR SPINE WO CONTRAST CHG CT LUMBAR SPINE W/O CONTRAST MATERIAL 24257 - CHG CT LUMBAR SPINE W/O CONTRAST MATERIAL Jillian Aranda PA [address] [place] [address] Phone: tel: fax: Referral ID Status Reason Start Date Expiration Date Visits Re quested Visits Authorized [id number] Closed 01/25/2023 01/30/2024 1 1 Encounter Details Date Type Department Care Team (Late st Contact Info) Description 01/30/2023 Transcribe Orders Luis Patel Pre Access [address] [place], [place] [address] Jillian Aranda PA [address] [place] [address] Lumbosacral radiculopathy (Primary Dx) Social History Tobacco Use Types Packs/Day Years Used Date Smoking Tobacco: Every Day Cigarettes 1 55.7 Started: [birth year]/28/1969 Smokeless Tobacco: Never Alcohol Use [...] Care Team (Late st Contact Info) Description 03/19/2025 1:40 PM EDT Office Visit [facility] OR [address] [place] [address] Mignon Mclean MD [address] [place] [address] 4 to 6 week follow up 04/24/2025 1:15 PM EST Office Visit [facility] Cardiology [address] [place] [address] [address] [place] [address] Laci Dominique MD [address] [place] [address] 6 month follow up 09/25/2025 1:30 PM EDT Office Visit [facility] [address] [facility] [address]nd [place] [address] Anders Santiago, PAJonhC [address] [place] [address] [address] 1 yr KUB documented as [...] disc phenomenon. There is moderate left and fvwf-en-pwbjqypn right neural foraminal narrowing. SOFT TISSUES/RETROPERITONEUM: Aorta [...] vacuum discphenomenon. There is moderate left and nwxc-mb-ciqwasfb right neural foraminalnarrowing. SOFT TISSUES/RETROPERITONEUM: Aorta bi-iliac stenting. Sigmoiddiverticula without inflammation. Nonobstructive right renal stone. IMPRESSION: Lumbar spondylosis at L3-4 through L5-S1. This is highlighted by severe right neural foraminal narrowing at L3-4, contacting the nerve root Jillian ORTA IMRuchi CT ORDERABLES Final Resul t documented in this encounter Visit Diagnoses Diagnosis Lumbosacral radiculopathy- Primary Thoracic or lumbosacral neuritis or radiculitis, unspecified Lumbosacral radiculopathy Thoracic or lumbosacral neuritis or radiculitis, unspecified documented in this encounter Care Teams String Cutter Relationship Specialty Start Date End Date Sherie Ramon APRN - GLOBAL CATEGORY MANAGER PCP - General 07/26/22 documented as of this encounter
--- OUTSIDE RECORDS SUMMARY | 2025-02-20 09:35 | XMS_ITS | Clinical Summary ---
Author Organization [facility] Address [address] [place], [place] [id number] Care Team Providers Care Exerciser Horse Name Role Phone Unavailable Primary Care Provider [...] three times daily as needed. 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/. Last address used for calculation [address] [facility] 01/18/2023 Sex and Gender Information Value Date Recorded Sex Assigned at Not on file Legal Sex Male 7:11 PM EDT Gender Identity Not on file Sexual Orientation Not on file Last Filed Vital Signs Vital Sign Reading Time Taken Comments Blood Pressure 130/80 11/25/2024 10:48 AM EDT Pulse - - Temperature - - Respiratory Rate 14 11/25/2024 10:48 AM EDT Oxygen Saturation - - Inhaled Oxygen Concentration - - Weight 81.6 kg (180 lb) 11/25/2024 10:48 AM EDT Height 175.3 cm (5' 9 ) 11/25/2024 10:48 AM EDT Body Mass Index 26.58 11/25/2024 10:48 AM EDT Plan of Treatment Health Maintenance Due Date Last Done Comments Anxiety Screening 09/30/1977 Depression Screening 09/30/1977 HIV Screening 09/30/1977 Hepatitis C Screening 09/30/1977 Lipid Screening 09/30/1994 CT Colonography 09/30/2004 Cologuard (FIT-DNA) 09/30/2004 Fecal Occult Blood 09/30/2004 Prostate Cancer Screening Discussion 09/30/2004 Sigmoidoscopy 09/30/2004 Lung Cancer Screening 09/30/2009 Shingrix Vaccine (1 of 2) 09/30/2009 Pneumococcal Vaccine: 50+ (2 of 2 - PPSV23, PCV20, or PCV21) 06/07/2024 04/12/2024 Advance Directive Discussion 09/30/2024 Influenza Vaccine (#1) 2025 04/12/2024, 2018 Colonoscopy 02/20/2025 02/21/2024 Colorectal Cancer Screening 02/20/2025 Diabetes Screening 07/02/2027 07/02/2024, 0 07/02/2024, 05/02/2024, Additional history exists DTaP,Tdap,Td Vaccine (3 - Td or Tdap) 08/22/2031 08/21/2021, 03/24/2017 RSV Vaccine (1 - 1-dose 75+ series) 09/30/2034 Abdominal Aortic Aneurysm Screening Completed 08/08/2022, 09/13/2021
--- OUTSIDE RECORDS SUMMARY | 2025-02-20 09:35 | XMS_ITS | Encounter Summary ---
Author Organization [facility] 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) Procedures US DUP LOWER EXTREMITY RIGHT [place]car Yan [place] [address] [place] [address] [address] [place] [address] Phone: tel: fax: Referral ID Status Reason Start Date Expiration Date Visits Re quested Visits Authorized Closed 09/13/2021 08/30/2022 1 1 * Imaging (Routine) - Closed Specialty Diagnoses / Procedures Referred By Contac t Referred To Contact Radiology Diagnoses Abdominal aortic aneurysm without rupture Procedures [place] [address] [place] [address] Phone: tel: fax: Referral ID Status Reason Start Date Expiration Date Visits Re quested Visits Authorized Closed 09/13/2021 08/30/2022 1 1 Encounter Details Date Type Department Care Team (Latest Contact Info) Description 08/30/2021 Transcribe Orders Luis Patel Pre Access [address] [place] [address] [place] [address] [place] [address] Abdominal aortic aneurysm without rupture (Primary Dx); [...] Description 03/19/2025 1:40 PM EDT Office Visit [facility] [place] [address] [place] [address] Mignon Mclean MD [address] [place] [address] 4 to 6 week follow up 04/24/2025 1:15 PM EST Office Visit [facility] Cardiology [address] [place] [address] [address] [place] [address] Laci Dominique MD [address] [facility] [address] [place] [address] 6 month follow up 09/25/2025 1:30 PM EDT Office Visit [facility] [address] [facility] 2nd [place] [address] Anders Santiago PA-C [address] [place] [address] [address] [place] [address] 1 yr KUB documented as [...] according to the Society of Vascular Surgery [id number]. us Amilcar Yan MD [facility] [place] ORDERABLES Final Resul t * US [...] arteries were evaluated of the right leg: BENDING MACHINE SET UP OPERATOR, SFA, popliteal artery and a few of [...] arteries were evaluated of the right leg: BENDING MACHINE SET UP OPERATOR,SFA, popliteal artery and a few of the [...] IMPRESSION: PATENT RIGHT COMMON FEMORAL ARTERY ENDARTERECTOMY Amilcar Yan MD [facility] ORDERABLES Final Resul t documented in this [...] extremity documented in this encounter Care Teams Knitting Teacher Relationship Specialty Start Date End Date Sherie Ramon, BRAND AMBASSADOR - CHLORINATOR OPERATOR PCP - General 07/26/22 documented as of this encounter
--- OUTSIDE RECORDS SUMMARY | 2025-02-20 09:35 | XMS_ITS | Encounter Summary ---
Author Organization [facility] Address [address], [address] [place] [address] Care Team Providers Care Adobe Layer Name Role Phone Sherie Ramon PANTOGRAPH I ENGRAVER - SALESPERSON BURIAL NEEDS Primary Care Provider + Reason for Visit * Reason Comments Medication Refill Encounter Details Date Type Department Care Team (Late st Contact Info) Description 02/16/2025 Refill [facility] [address] [place] [address] Laci Dominique MD [address] [place] [address] Medication Refill Social History Tobacco Use Types Packs/Day Years Used Date Smoking Tobacco: Every Day Cigarettes 1 55.7 Started: 05/28/1970 Passive Smoke Exposure: Past Smokeless Tobacco: Never Comments:Patient has slowed down Alcohol Use Standard Drinks/Week Comments No 0 (1 standard drink = 0.6 oz pur e alcohol) [facility] Utilities Answer Date Recorded In the past 12 months has [employer], gas, oil, or water [employer] threatened to shut off services in your [...] any time in the past 12 m [facility], were you homeless or living in a retirement (including now)? No 04/20/2024 Food Insecurity Answer [...] Description 03/19/2025 1:40 PM EDT Office Visit [facility] [place] [address] [facility] [place] [address] Mignon Mclean MD [address] [facility] [place] [address] 4 to 6 week follow up 04/24/2025 1:15 PM EST Office Visit [facility] Cardiology [address] [place] [address] [place], [place] [address], [place] [address] Laci Dominique MD [address] [place] [address] 6 month follow up 09/25/2025 1:30 PM EDT Office Visit [facility] [address] [facility] 2nd [place] [address] Anders Santiago, PAJonhC [address] [facility] [address] [place] [address] 1 yr KUB documented as of this encounter Visit Diagnoses Not on filedocumented in this encounter Care Teams Adobe Layer Relationship Specialty Start Date End Date Sherie Ramon APRN - SALESPERSON BURIAL NEEDS PCP - General 07/26/22 documented as of this encounter
--- OUTSIDE RECORDS SUMMARY | 2025-02-20 09:35 | XMS_ITS | Encounter Summary ---
Author Organization [facility] Address [address], [address] [place] [address] Care Team Providers Care Glass Handler Name Role Phone Sherie Ramon FLOOR SERVICE WORKER SPRING - HOT STAMP OPERATOR Primary Care Provider + Encounter Details Date Type Department Care Team (Late st Contact Info) Description 01/09/2025 Telephone [facility] [address] [place] [address] Chayito Amos MA Social History Tobacco Use Types Packs/Day Years Used Date Smoking Tobacco: Every Day Cigarettes 1 55.7 Started: [birth year]/28/1970 Passive Smoke Exposure: Past Smokeless Tobacco: Never Comments:Patient has slowed down Alcohol Use Standard Drinks/Week Comments No 0 (1 standard drink = 0.6 oz pur e alcohol) [facility] Utilities Answer Date Recorded In the past 12 months has [employer], gas, oil, or water company threatened to shut off services in your [...] any time in the past 12 m ont, were you homeless or living in a fpc (including now)? No 04/20/2024 Food Insecurity Answer [...] Description 03/19/2025 1:40 PM EDT Office Visit [facility] [place] [address] [place] [address] Mignon Mclean MD [address] [place] [address] 4 to 6 week follow up 04/24/2025 1:15 PM EST Office Visit [facility] Cardiology [address] [facility] [address] [place] [address] Laci Dominique MD [address] [address] 6 month follow up 09/25/2025 1:30 PM EDT Office Visit [facility] [address] Specialty Clinic 2nd [place] [address] Anders Santiago, PAAna [address] [facility] [address] [place] [address] 1 yr KUB documented as of this encounter Visit Diagnoses Not on filedocumented in this encounter Care Teams Glass Handler Relationship Specialty Start Date End Date Sherie Ramon APRN - HOT STAMP OPERATOR PCP - General 07/26/22 documented as of this encounter
--- OUTSIDE RECORDS SUMMARY | 2025-02-20 09:35 | XMS_ITS | Clinical Summary ---
Author Organization [facility] Address [address] [place] [address] Care Team Providers Care Raw Stock Machine Feeder Name Role Phone Unavailable Primary Care Provider Unavailabl e Allergies No known active allergies Social History Tobacco Use Types Packs/Day Years Used Date Smoking Tobacco: Never Assessed Sex and Gender Information Value Date Recorded Sex Assigned at Not on file Legal Sex Male 6:38 PM EDT Gender Identity Not on file Sexual Orientation Not on file Plan of Treatment Health Maintenance Due Date Last Done Comments CT Colonography 1959 FIT-DNA 1959 FIT 1959 FOBT 1959 Sigmoidoscopy 1959 Influenza Vaccine (#1) 2025 04/12/2024, 2018 Pneumococcal Vaccine: 65+ Ye ars (2 of 2 - PPSV23) 04/12/2025 04/12/2024 Colonoscopy 06/10/2034 06/10/2024, 06/10/2024 Colorectal Cancer Screening 06/10/2034 Insurance [employer]
--- OUTSIDE RECORDS SUMMARY | 2025-02-20 09:35 | XMS_ITS | Clinical Summary ---
Author Organization [facility] Address [address] [place] [address] Care Team Providers Care Special Needs Tutor Name Role Phone Amilcar Yan MD Unavailable [phone] Laci Dominique MD Unavailable Allergies No known active allergies Medications atorvastatin (Lipitor) 20 mg tablet Take 20 mg by mouth in the morning. Active baclofen (Lioresal) 10 mg tablet TAKE 1 TABLET BY MOUTH THREE TIMES DAILY NEEDED for MUSCLE pain Active buPROPion SR (Wellbutrin SR) 150 mg 12 hr tablet Take 150 mg by mouth in the morning and at bedtime. Active clopidogrel (Plavix) 75 mg tablet Take 75 mg by mouth in the morning. Active gabapentin (Neurontin) 600 mg tablet Take 1 tablet by mouth in the morning, afternoon, and at bedtime. 12/24/2021 Active metoprolol succinate XL (Toprol-XL) 25 mg 24 hr tablet Take 25 mg by mouth in the morning. Active nicotine (Nicoderm CQ) 14 mg/[address] 1 patch on the skin. 04/25/2024 Active pantoprazole (ProtoNix) 40 mg EC tablet Take 40 mg by mouth in the morning. Active rOPINIRole (Requip) 2 mg tablet Take 2 mg by mouth in the morning and at bedtime. Active cilostazol (Pletal) 100 mg tablet Take 100 mg by mouth two times daily. Active cholecalciferol (Vitamin D-3) 50 MCG (1999) tablet Take 2,000 Units by mouth. Active Active Problems Problem Noted Date Diagnosed Date Actinic keratoses 10/21/2024 SANDEEP (acute kidney injury) 10/21/2024 Anticoagulated 10/21/2024 Intermittent claudication of left lower extremity due to atherosclerosis 10/21/2024 Benign essential HTN 10/21/2024 BMI 27.0-27.9,adult 10/21/2024 History of diverticular abscess of colon 025 History of reversal of ileostomy 10/21/2024 Hypocalcemia 10/21/2024 Hypokalemia 10/21/2024 Labile blood pressure 10/21/2024 Lumbar degenerative disc disease 10/21/2024 Lumbar radiculopathy 10/21/2024 Multiple lipomas 10/21/2024 Overweight 10/21/2024 PAD (peripheral artery disease) 10/21/2024 Restless leg syndrome 10/21/2024 S/P colon resection 10/21/2024 S/P splenectomy 10/21/2024 Sacroiliitis 10/21/2024 Embolism of iliac artery 10/21/2024 Kidney stones 09/13/2024 Ileostomy dysfunction 06/10/2024 Candidiasis 04/26/2024 Oral candidiasis 04/25/2024 Primary hypertension 04/23/[address] 04/22/2024 Post-op pain 04/22/2024 Impaired mobility and activities of daily living 04/16/2024 Constipation 04/16/2024 Diverticulitis of sigmoid colon 04/16/2024 Dry skin dermatitis 04/16/2024 Multiple joint pain 04/16/2024 Rheumatoid arthritis 04/16/2024 Shock 04/15/2024 Urinary retention 04/15/2024 Status post splenectomy 04/12/2024 Hemorrhagic shock 04/11/2024 Perforation and abscess of l arge intestine concurrent with and due to diverticulitis 03/22/2024 Spondylosis of lumbar spine 02/26/2024 History of colonic polyps 02/13/2024 Overview (10/21/2024): Problem List Diagnosis Replacement Utility 02/20/2024 Aneurysm of infrarenal abdominal aorta Atheroscler of [place] artery of both legs with intermit claudication 08/23/2022 Back pain, lumbosacral 08/23/2022 Herniated lumbar intervertebral disc 08/23/2022 Thrombosis of arteries of lower extremity 2022 Thrombosis of iliac artery 08/23/2022 Mixed hyperlipidemia 03/17/2022 Sciatica 03/16/2022 Peripheral vascular disease 12/28/2021 Smoker 12/28/2021 AAA (abdominal aortic aneurysm) without rupture 06/03/2021 Thrombosis of both common femoral arteries 05/28 Iliac artery stenosis, left 05/28/2021 Atherosclerosis of [place] ar teries of extremities with intermittent claudication, left leg 03/16/2021 Edema of left lower leg due to peripheral venous insufficiency 03/16/2021 Chronic midline low back pain with bilateral sci atica 01/13/2021 Colonic diverticular abscess 01/13/2021 Tobacco use 01/13/2021 Acute diverticulitis 01/12/2021 Ureteral calculus 06/17/2020 Nicotine dependence 10/28/2016 Overview (10/21/2024): Comment on above: Added secondary to documentation in Social History. Added secondary to documentation in Social History. Chest pain 09/29/2014 GERD (gastroesophageal reflux disease) 5 Social History Tobacco Use Types Packs/Day Years Used Date Smoking Tobacco: Some Days Cigarettes Smokeless Tobacco: Never Tobacco Cessation:Ready to Q uit: Not Asked; Counseling Given: Not Answered Alcohol Use Standard Drinks/Week Comments Never 0 (1 standard drink = 0.6 oz pur e alcohol) Humiliation, Afraid, Rape, a nd Kick questionnaire Answer Date Recorded Within the last year, have y ou been afraid of your partner or ex-partner? Patient unable to answer 11/12/2024 Emotionally Abused Not on file 11/12/2024 Physically Abused Not on file 11/12/2024 Sexually Abused Not on file 11/12/2024 PHQ-2 Answer Date Recorded Patient Health Questionnaire-2 Score 0 11/12/2024 Sex and Gender Information Value Date Recorded Sex Assigned at Not on file Legal Sex Male 11:04 AM EDT Gender Identity Not on file Sexual Orientation Not on file Last Filed Vital Signs Vital Sign Reading Time Taken Comments Blood Pressure 128/70 11/12/2024 1:10 PM EDT Pulse 66 11/12/2024 1:10 PM EDT Temperature 36.5 C (97.7 F) 11/12/2024 1:10 PM EDT Respiratory Rate - - Oxygen Saturation - - Inhaled Oxygen Concentration - - Weight 81.6 kg (180 lb) 11/12/2024 1:10 PM EDT Height 177.8 cm (5' 10 ) 11/12/2024 1:10 PM EDT Body Mass Index 25.83 11/12/2024 1:10 PM EDT Plan of Treatment Health Maintenance Due Date Last Done Comments CT Colonography 1959 FIT-DNA 1959 FIT 1959 FOBT 1959 Medicare Annual Wellness (AWV) 1959 Medicare Initial Physical (IPPE) 1959 Sigmoidoscopy 1959 Zoster Vaccines (1 of 2) 09/30/2009 Meningococcal B Vaccine (2 o f 5 - Increased Risk Bexsero 3-dose series) 05/10/2024 04/12/2024 Meningococcal Vaccine (2 - Risk 2-dose series) 06/07/2024 04/12/2024 Pneumococcal Vaccine: 50+ Years (2 of 2 - PPSV23, PCV20, or PCV21) 06/07/2024 04/12/2024 COVID-19 Vaccine (3 - 2024-2 6 season) 2025 09/04/2020, 08/07/2020 Influenza Vaccine (#1) 2025 , 04/12/2024, 04/11/2019 Depression Screening 11/12/2025 11/12/2024 Fall Risk Screening 11/12/2025 11/12/2024 Adult Tetanus 08/22/2031 08/21/2021, 03/24/2017 Colonoscopy 06/10/2034 06/10/2024 Colorectal Cancer Screening 06/10/2034 HIB Vaccines Completed 04/12/2024 HPV Vaccines Aged Out No longer eligi ble based on patient's age to complete this topic IPV Vaccines Aged Out No longer eligi ble based on patient's age to complete this topic Rotavirus Vaccines Aged Out No longer eligible based on patient's age to complete this topic Insurance [employer] MEDICARE Care Teams Special Needs Tutor Relationship Specialty [place] [id number] [address] [facility] [address] [place] [address] Referring Physician Vascular Surgery 10/21/24 Laci Dominique MD [address] [place] [address] [address] [place] [address] Referring Physician Cardiology 10/21/24 Sherie Ramon CNP Primary Care Provider Family Medicine 10/21/24
--- OUTSIDE RECORDS SUMMARY | 2025-02-20 09:35 | XMS_ITS | Patient Health Record ---
Author Organization [facility] Address [address] [place] [address] Care Team Providers Care Hosting Engineer Name Role Phone None, Unknown or Primary Care Provider Unavailab le Reason For Referral No Information Plan Of Treatment No Information Insurance Providers Payer Name Payer Address Payer Phone Subscriber Number Group Number Insured Name Patient Relationship to Insured Coverage Start Date Coverage End Date [facility] [address] [address] [place] [phone] [id number] DEN[place] CAMPBELL Self - patient is the insured
--- OUTSIDE RECORDS SUMMARY | 2025-02-20 09:35 | XMS_ITS | Encounter Summary ---
Author Organization [facility] Address [address], [address] [place] [address] Care Team Providers Care Combo Welder Name Role Phone Sherie Ramon FINANCIAL LEGAL ASSISTANT - CONSTRUCTION ESTIMATOR Primary Care Provider + Reason for Referral * Imaging (Routine) - Closed Specialty Diagnoses / Procedures Referred By Contac t Referred To Contact Radiology Diagnoses Atherosclerosis of [place] artery of both lower extremities with intermittent claudication Abdominal aortic aneurysm without rupture Procedures CTA ABDOMINAL AORTA W [place] [address] [place] [address] Phone: tel: fax: Referral ID Status Reason Start Date Expiration Date Visits Re quested Visits Authorized [id number] Closed 03/16/2021 05/14/2021 1 1 Encounter Details Date Type Department Care Team (Latest Contact Info) Description 03/15/2021 Transcribe Orders Luis Patel Pre Access [address] [place] [address] [place] [address] [place] [address] Atherosclerosis of [place] artery of both lower extremities with intermittent [...] Description 03/19/2025 1:40 PM EDT Office Visit [facility] [place] [address] [place] [address] [place] [address] [place] [address] 4 to 6 week follow up 04/24/2025 1:15 PM EST Office Visit [facility] Cardiology [address] [place] [address] [address] [place] [address] Laci Dominique MD [address] [facility] [address] [place] [address] 6 month follow up 09/25/2025 1:30 PM EDT Office Visit [facility] Urology [address] [facility] Specialty Clinic 2nd [place] [address] Anders Santiago, JUAN AC [address] [place] [address] [facility] [address] [place] [address] 1 yr KUB documented as [...] dose to as low as reasonably achievable. us Amilcar Yan MD IMG CT ORDERABLES Final Resul t documented in this encounter Visit Diagnoses Diagnosis Atherosclerosis of [place] artery of both lower extremities with intermittent claudication- Primary Atherosclerosis of [place] arteries of the extremities with intermittent claudication Abdominal aortic aneurysm without rupture Abdominal aneurysm without mention of rupture Atherosclerosis of [place] artery of both lower extremities with intermittent claudication Atherosclerosis of [place] arteries of the extremities with intermittent claudication Abdominal aortic aneurysm without rupture Abdominal aneurysm without mention of rupture documented in this encounter Additional Health Concerns Infection Onset Date Last Indicated Resolved Time COVID-19 (Rule Out) 05/28/2021 05/28/2021 05/29/19 22 8:40 AM EST documented as of this encounter Care Teams Combo Welder Relationship Specialty Start Date End Date Sherie Ramon, BERNARD - CONSTRUCTION ESTIMATOR PCP - General 07/26/22 documented as of this encounter
--- OUTSIDE RECORDS SUMMARY | 2025-02-20 09:35 | XMS_ITS | Clinical Summary ---
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 Primary Care Provider + Allergies No known active allergies Medications baclofen (LIORESAL) 10 MG tablet Take 1 tablet by mouth 3 times daily Only takes twice daily per patient 01/29/20 21 Active gabapentin (NEURONTIN) 600 MG tablet Patient taking 800 mg po twice daily 12/25/19 22 Active atorvastatin (LIPITOR) 20 MG tablet Take 1 tablet by mouth daily 90 tablet 3 01/19/20 23 Active Additional Information Patient not taking.Reported on 02/05/2025 rOPINIRole (REQUIP) 1 MG tablet Take 2 tablets by mouth nightly 04/05/20 24 Active buPROPion (WELLBUTRIN SR) 150 MG extended release tablet Take 1 tablet by mouth 2 times daily 60 tablet 3 04/24/20 24 Active tamsulosin (FLOMAX) 0.4 MG capsule Take 1 capsule by mouth daily 30 capsule 3 04/25/20 24 Active Additional Information Patient not taking.Reported on 02/05/2025 nicotine (NICODERM CQ) 14 MG/24HR Place 1 patch onto the skin daily 30 patch 3 04/25/20 24 Active Additional Information Patient not taking.Reported on 02/05/2025 Vitamin D (CHOLECALCIFERO L) 50 MCG (1999 UT) TABS tablet Take 1 tablet by mouth Daily with supper 60 tablet 4 04/24/20 24 Active pantoprazole (PROTONIX) 40 MG tabletIndicatio ns:Essential hypertension Take 1 tablet by mouth daily 90 tablet 3 09/04/19 25 Active clopidogrel (PLAVIX) 75 MG tablet Take 1 tablet by mouth daily 90 tablet 3 09/04/19 25 Active Cyanocobalamin (VITAMIN B 12) 500 MCG TABS Take 500 mcg by mouth daily Active ferrous sulfate (IRON 325) 325 (65 Fe) MG tablet Take 1 tablet by mouth daily (with breakfast) Active Sofosbuvir-Velp atasvir 400-100 MG TABS Take 1 tablet by mouth daily 30 tablet 2 01/09/20 25 Active metoprolol succinate (TOPROL XL) 25 MG extended release tablet TAKE 1 TABLET BY MOUTH EVERY DAY 90 tablet 1 02/18/20 25 Active metoprolol succinate (TOPROL XL) 25 MG extended release tablet TAKE 1 TABLET BY MOUTH EVERY DAY 90 tablet 1 09/04/19 25 025 Discontinued Active Problems Problem Noted Date Diagnosed Date [...] to peripheral venous insufficiency 03/16/2021 Atherosclerosis of [place] ar teries of extremities with intermittent claudication, [...] Encounters Date Type Department Care Team Description 02/16/2025 Refill [facility] Failure [facility] [address] [address] Laci Dominique MD Medication Refill 02/05/2025 2:00 PM EDT Office Visit [facility] [place] [place] [address] [place] [address] Mignon Mclean MD Chronic hepatitis C without hepatic coma (HCC) (Primary Dx) 01/09/2025 Telephone [facility] Gastroenterology [address] [place] [address] Chayito Amos MA 01/08/2025 1:50 PM EDT Office Visit [facility] [place] [address] [place] [address] Mignon Mclean MD Chronic hepatitis C without hepatic coma (HCC) (Primary Dx) 01/08/2025 Telephone [facility] Cardiology [address] [place] [address] Laci Dominique MD medications 12/31/2024 10:30 AM EDT Ancillary Procedure [facility] [place] [address] [place] [address] Hepatitis C antibody positive 12/31/2024 Orders Only [facility] [place] [address] [place] [address] Mignon Mclean MD Hepatitis C antibody positive; Chronic hepatitis C without hepatic coma (HCC) 12/30/2024 Telephone [facility] Cardiology [address] [place] [address] Laci Dominique MD 12/25/2024 2:50 PM EDT Office Visit [facility] [place] [address] [place] [address] Mignon Mclean MD Hepatitis C antibody positive (Primary Dx); Chronic hepatitis C without hepatic coma (HCC) from Last 3 Months Immunizations Immunization Administration [...] 3 No Known Problems Son x 1 Colon Cancer Neg Hx Relation Name Status Comments Brother x 1 Alive Daughter x 1 Alive Father Mother Sister x 3 Alive Son x 1 Alive Social History Tobacco Use Types Packs/Day Years Used Date Smoking Tobacco: Every Day Cigarettes 1 55.7 Started: 05/28/1969 Passive Smoke Exposure: Past Smokeless Tobacco: Never Tobacco Cessation:Ready to Q uit: No; Counseling Given: No Comments:Patient has slowed down Alcohol Use Standard Drinks/Week Comments No 0 (1 standard drink = 0.6 oz pur e alcohol) [facility] Utilities Answer Date Recorded In the past 12 months has th e electric, gas, oil, or water company threatened [...] any time in the past 12 m [facility], were you homeless or living in a prison (including now)? No 04/20/2024 Food Insecurity Answer [...] Sign Reading Time Taken Comments Blood Pressure 112/66 02/05/2025 1:49 PM EDT Pulse 85 02/05/2025 1:49 PM EDT Temperature 37.2 C (99 F) 02/05/2025 1:49 PM EDT Respiratory Rate 16 02/05/2025 1:49 PM EDT Oxygen Saturation 93% 02/05/2025 1:49 PM EDT Inhaled Oxygen Concentration - - Weight 83.3 kg (183 lb 9.6 oz) 02/05/2025 1:49 P M EDT Height 175.3 cm (5' 9 ) 02/05/2025 1:49 PM EDT Body Mass Index 27.11 02/05/2025 1:49 PM EDT Plan of Treatment Upcoming Encounters Date Type Department Care Team (Late st Contact Info) Description 03/19/2025 1:40 PM EDT Office Visit [facility] [place] [address] [place] [address] Mignon Mclean MD [address] [place] [address] 4 to 6 week follow up 04/24/2025 1:15 PM EST Office Visit [facility] Cardiology [address] [facility] [address] [place] [address] Laci Dominique MD [address] [address] 6 month follow up 09/25/2025 1:30 PM EDT Office Visit [facility] Urology [address] [facility] [address]nd [place] [address] Anders Santiago PA-C [address] [place] [address] 1 yr KUB Health Maintenance Due Date Last Done Comments Hepatitis A vaccine (1 of 2 - Risk 2-dose series) 09/30/1978 FIT/FOBT: Average risk 09/30/2004 Fecal-DNA (Cologuard): Average risk 09/30/2004 Sigmoidoscopy/CT colonography 09/30/2004 Lung Cancer Screening &/or Counseling 09/30/2009 Shingles vaccine (1 of 2) 09/30/2009 Lipids 08/23/2015 08/22/2014 Hepatitis B vaccine (1 of 3 - Risk 3-dose series) 2019 Respiratory Syncytial Virus (RSV) or age 60 yrs+ (1 - Risk 60-74 years 1-dose series) 2019 Meningococcal B vaccine (2 of 5 - Increased Risk Bexsero 3-dose series) 05/10/2024 04/12/2024 Meningococcal (ACWY) vaccine (2 - Risk 2-dose series) 06/07/2024 04/12/2024 Pneumococcal 50+ years Vaccine (2 of 2 - PPSV23, PCV20, or PCV21) 06/07/2024 04/12/2024 Annual Wellness Visit (Medicare) 10/17/2024 Flu vaccine (#1) 12/20/2024 04/12/2024, 04/11/2019 COVID-19 Vaccine (3 - season) 2025 09/04/2020, 08/07/2020 A1C test (Diabetic or Prediabetic) 04/11/2025 04/11/2024 Depression Screen 05/07/2025 05/07/2024, 05/07/2024 DTaP/Tdap/Td vaccine (3 - Td or Tdap) 08/22/2031 08/21/2021, 03/24/2017 Colonoscopy 06/10/2034 06/10/2024, 05/23, 02/21/2024, Additional history exists Colorectal Cancer Screen 06/10/2034 Prostate Specific Antigen (PSA) Screening or Monitoring Discontinued 08/22/2014 Diabetes screen Discontinued 04/11/2024 Hib vaccine Completed 04/12/2024 Pneumococcal 0-49 years Vaccine Discontinued 04/12/2024 GFR test (Diabetes, CKD 3-4, OR last GFR 15-59) Discontinued 12/31/2024, 07/02/2024, 05/02/2024, Additional history exists HIV screen Completed 12/31/2024 Hepatitis C screen Completed 12/31/2024 Polio vaccine Aged Out No longer elig ible based on patient's age to complete this topic Medical Devices Implanted Type Area Shop Technician Device Identifier Shelf Expiration Date Model / Serial / Lot Graft Evar L14cm Aort [id number] Il [id number] Ipsilateral Leg W/ - [id number] Implanted:Qty: 1 on 06/03/2021 by Amilcar Yan MD at [facility] Endografts Right: Groin [employer]WD 11/01/2023 [id number] / [id number] / Description:Main body abdomi nal aorta Graft Endopros L12cm Dst [id number] Contralateral Leg W/ C3 - [id number] Implanted:Qty: 1 on 06/03/2021 by Amilcar Yan MD at [facility] Endografts Groin [employer]WD 02/28/2024 [id number] / [id number] / Description:Implanted in: LE FT COMMON ILIAC ARTERY Stent Protege Everflex [id number] Implanted:Qty: 1 on 06/03/2021 by Amilcar Yan MD at [facility] Stent:Biliar y/Pancreatic /Iliac Groin [employer]-PMM 11/20/2021 [id number] / / [id number] Description:IMPLANTED IN: LE FT FEMORAL ARTERY Stent Uret 6fr L26cm Hydr+ Pgtl Tapr Tip Grad Bldr Mrk Lo Implanted:Qty: 1 on 06/05/2020 by Justin Mendez MD at [facility] Left: Ureter [employer] 10/28/2022 [id number] / / [id number] Stent Uret 6fr L26cm Hydr+ Pgtl Tapr Tip Grad Bldr Mrk Lo Implanted:Qty: 1 on 06/18/2020 by Justin Mendez MD at [facility] Left: Ureter [employer] 10/28/2022 [id number] / / [id number] Patch Biologic Vasc 1cm Wx14cm L .55mm Thicknessxenosure Implanted:Qty: 1 on 06/03/2021 by Amilcar Yan MD at [facility] [employer] 08/16/2026 [id number] / / [id number] Procedures Procedure Name Priority Date/Time Associated Diagnosis Comments US FIBROSCAN Routine 12/31/2024 10:10 AM EDT Hepatitis C antibody positive HEP C GENOTYPING PCR & SEQUENCE Routine 12/31/2024 9:18 AM EDT HEPATITIS C RNA QNT W GENOTYPE RFLX Routine 12/31/2024 9:18 AM EDT Hepatitis C antibody positive CBC WITH AUTO DIFFERENTIAL Routine 12/31/2024 9:18 AM EDT Hepatitis C antibody positive COMPREHENSIVE METABOLIC PANEL Routine 12/31/2024 9:18 AM EDT Hepatitis C antibody positive HEPATITIS A ANTIBODY, TOTAL Routine 12/31/2024 9:18 AM EDT Hepatitis C antibody positive HEPATITIS B CORE ANTIBODY, TOTAL Routine 12/31/2024 9:18 AM EDT Hepatitis C antibody positive HEPATITIS B SURFACE ANTIGEN Routine 12/31/2024 9:18 AM EDT Hepatitis C antibody positive HEPATITIS B SURFACE ANTIBODY Routine 12/31/2024 9:18 AM EDT Hepatitis C antibody positive HIV SCREEN Routine 12/31/2024 9:18 AM EDT Hepatitis C antibody positive Chronic hepatitis C without hepatic coma (HCC) COLONOSCOPY PROCEDURE Routine 06/10/2024 7:19 AM EST HEMOGLOBIN A1C Routine 04/11/2024 4:24 AM EST PSA SCREENING Routine 08/22/2014 8:41 AM EDT LIPID PANEL Routine 08/22/2014 8:41 AM EDT from Last 3 Months or Most Recently Relevant to Health Maintenance Results * US FIBROSCAN (12/31/2024 10:10 AM EDT) Anatomical Region Laterality Modality Abdomen Ultrasound Narrative 01/08/2025 1:56 PM EDT Table formatting from the original result was not included. Velocity Controlled Transient Elastography (Fibroscan) Marine Engineering Teacher: Niki Holloway Attending: Mignon Mclean MD Patient was identified via name and . Denver Campbell presents to endoscopy suite for VCTE. Referring Physician: Dr. Mclean Diagnosis: Hep C Probe Used: M Pre-procedure Checklist: Presence of ascites: No Fasting for at least two hours: Yes Alcohol Use: No History of heart failure: No @[id number](ALT:3,AST:3,GGT:3,ALKPHOS:3,BILITOT:3)@ @RESUFAST(PLT:3)@ Findings: Median kPa: 6.7 IQR/med (%): 7 Controlled Attenuation Paramater (CAP) Median (dB/m): 261 IQR (%): 24 Interpretation: Appropriate reading, Based on LSM of 6.7 Kpa, NO evidence of advanced fibrosis noted Fibrosis stage 0-I ( F0-1) Based on CAP of 261 db/M, Mild steatosis (< 33%) - S1. Clinical correlation indicated Mignon Mclean MD [facility] Mignon Mclean MD [facility] ORDERABLES Final Resul t * (ABNORMAL) Hepatitis C RNA QNT W Genotype RFLX (12/31/2024 9:18 AM EDT) HCV QNT by NAAT IU/ML 1,040,000 IU/mL 01/02/2025 1:02 AM EDT [facility] HCV Qnt by NAAT log IU/ml 6.02 log IU/mL 01/02/2025 1:02 AM EDT [facility] Comment:Hepatitis C Virus Ge notype by Sequencing added. Interpretation Detected( A) Not Detected 01/02/2025 1:02 AM EDT [facility] Comment: INTERPRETIVE INFORMATION: HCV by Quantitative NAAT [...] and cellular tissue-based products (HCT/P). Performed By: [facility] [address] [place] [address] Payroll Officer: Chriss Agudelo MD, PhD CLIA Number: [id number] BLOOD SPECIMEN / Unknown 12/31/2024 9:18 AM EDT 12/31/2024 11:12 AM EDT Mignon Mclean MD CHEMISTRY ORDERABLES Final Re sult [facility] [address] [place] [id number], [facility] [phone] [facility] [address] [place] [address] [phone] * HEP C GENOTYPING PCR & SEQUENCE (12/31/2024 9:18 AM EDT) Hepatitis C Genotype 1a or 1b 01/04/2025 8:08 AM EDT [facility] Comment: Cannot be further subtyped into Type 1a or Type 1b due to high conservation of the 5' untranslated region of the HCV genome. In addition, Type 6 virus may be misclassified as Type 1 in some cases. The Hepatitis C Virus High-Resolution Genotype by Sequencing test ([facility] test code [id number]) provides a higher level of subtype resolution. INTERPRETIVE INFORMATION: Hepatitis C Genotyping Hepatitis C viral RNA is tested using reverse program architect polymerase chain reaction (RT-PCR) to amplify a specific portion of the 5' untranslated region (5' UTR) of the viral genome. The amplified nucleic acid is sequenced bidirectionally using dye-terminator chemistry (Tigerstripe). Sequencing data is compared to a database [...] developed and its performance characteristics determined by [facility] [employer]. It has not been cleared or approved by the U.S. Food and Drug Administration. This test was performed in a CLIA-certified laboratory and is intended for clinical purposes. Performed By: [facility] [employer] [employer] [facility] [employer] [address] [place] [address] Payroll Officer: Chriss Agudelo MD, PhD CLIA Number: [id number] 12/31/2024 9:18 AM EDT 12/31/2024 11:12 AM EDT us Mignon Mclean MD CHEMISTRY ORDERABLES Final Re sult [facility] [address] [place] [id number], [facility] [phone] [address] [phone] * (ABNORMAL) CBC with Auto Differential (12/31/2024 9:18 AM EDT) WBC 8.8 4.8 - 10.8 K/uL 12/31/2024 11:16 AM [facility] RBC 4.55(L) 4.70 - 6.10 M/uL 12/31/2024 11:16 AM [facility] Hemoglobin 12.2(L) 14.0 - 18.0 g/dL 12/31/2024 11:16 AM [facility] Hematocrit 40.3(L) 42.0 - 52.0 % 12/31/2024 11:16 AM [facility] MCV 88.6 79.0 - 92.2 fL 12/31/2024 11:16 AM [facility] MCH 26.8(L) 27.0 - 31.3 pg 12/31/2024 11:16 AM [facility] MCHC 30.3(L) 33.0 - 37.0 % 12/31/2024 11:16 AM [facility] RDW 28.0(H) 11.5 - 14.5 % 12/31/2024 11:16 AM [facility] Platelets 426(H) 130 - 400 K/uL 12/31/2024 11:16 AM [facility] PLATELET SLIDE REVIEW Increased 12/31/2024 3:35 PM [facility] SLIDE REVIEW see below 12/31/2024 3:35 PM [facility] Comment:Slide review agrees with reported results Neutrophils % 72.3 % 12/31/2024 11:16 AM [facility] Lymphocytes % 15.5 % 12/31/2024 11:16 AM [facility] Monocytes % 8.9 % 12/31/2024 11:16 AM [facility] Eosinophils % 2.3 % 12/31/2024 11:16 AM [facility] Basophils % 0.8 % 12/31/2024 11:16 AM EDT [facility] Neutrophils Absolute 6.4 1.4 - 6.5 K/uL 12/31/2024 11:16 AM EDT [facility] Lymphocytes Absolute 1.4 1.0 - 4.8 K/uL 12/31/2024 11:16 AM EDT [facility] Monocytes Absolute 0.8 0.2 - 0.8 K/uL 12/31/2024 11:16 AM EDT [facility] Eosinophils Absolute 0.2 0.0 - 0.7 K/uL 12/31/2024 11:16 AM EDT [facility] Basophils Absolute 0.1 0.0 - 0.2 K/uL 12/31/2024 11:16 AM EDT [facility] Anisocytosis 3+ 12/31/2024 3:09 PM EDT [facility] Hypochromia 1+ 12/31/2024 3:09 PM EDT [facility] Poikilocytes 3+ 12/31/2024 3:09 PM EDT [facility] Acanthocytes 1+ 12/31/2024 3:09 PM EDT [facility] Ovalocytes 1+ 12/31/2024 3:09 PM EDT [facility] Target Cells 2+ 12/31/2024 3:09 PM EDT [facility] Basophilic Stippling 2+ 12/31/2024 3:09 PM EDT [facility] Blood BLOOD SPECIMEN / Unknown 12/31/2024 9:18 AM EDT 12/31/2024 11:14 AM EDT Mignon Mclean MD HEMATOLOGY ORDERABLES Final R esult [facility] [address] [place] [id number], [facility] [phone] * (ABNORMAL) Hepatitis A Antibody, Total (12/31/2024 9:18 AM EDT) Pathologist [facility] Hep A Total Ab Positive( A) Negative 01/01/2025 6:38 PM EDT [facility] Comment: The positive anti-HAV is consistent with recent or remote Hepatitis A infection or antibody response to HAV vaccination. False positive anti-HAV can occur. Performed By: [facility] [employer] [address] [place] [address] Payroll Officer: Chriss Agudelo MD, PhD CLIA Number: [id number] Blood BLOOD SPECIMEN / Unknown 12/31/2024 9:18 AM EDT 12/31/2024 11:12 AM EDT Mignon Mclean MD IMMUNOLOGY ORDERABLES Final R esult Performing Organization Address City/[facility]/ZIP Co de Phone Number [facility] [address] [place] [address], [facility] [phone] [facility] [address] [place] [address] * Hepatitis B Core Antibody, Total (12/31/2024 9:18 AM EDT) Pathologist [facility] Hep B Core Total Ab Negative Negative 01/01/2025 5:01 PM EDT [facility] Comment: INTERPRETIVE INFORMATION: Hepatitis B Core Ab (Total) This assay should not be used for blood donor screening, associated re-entry protocols, or for screening Human Cells, Tissues and Cellular and Tissue-Based Products (HCT/P). Performed By: [facility] [employer] [address] [place] [address] Payroll Officer: Chriss Agudelo MD, PhD CLIA Number: [id number] Blood BLOOD SPECIMEN / Unknown 12/31/2024 9:18 AM EDT 12/31/2024 11:12 AM EDT Mignon Mclean MD IMMUNOLOGY ORDERABLES Final R esult [facility] [address] [place] [address], [facility] [phone] [facility] [address] [place], [place] [address] [phone] * HIV Screen (12/31/2024 9:18 AM EDT) HIV Ag/Ab NONREACTIVE NR 12/31/2024 8:58 PM EDT [facility] Comment: No laboratory evidence of HIV infection. If acute HIV infection is suspected, consider testing for HIV-1 RNA. Performed at [facility], [address] [place] [id number] . BLOOD SPECIMEN / Unknown 12/31/2024 9:18 AM EDT 12/31/2024 11:12 AM EDT Mignon Mclean MD IMMUNOLOGY ORDERABLES Final R esult Performing Organization Address City/[facility]/ZIP Co de Phone Number [facility] [address] [place] [address], [facility] [phone] [address], [facility] [phone] * Hepatitis B Surface Antibody (12/31/2024 9:18 AM EDT) Hep B S Ab <3.50 <10 mIU/mL 12/31/2024 8:58 PM EDT [facility] Comment: REFERENCE RANGE: <10.0 NON-REACTIVE/NOT IMMUNE >=10.0 REACTIVE/IMMUNE Performed at [facility], [address] [place] [id number] . Blood BLOOD SPECIMEN / Unknown 12/31/2024 9:18 AM EDT 12/31/2024 11:12 AM EDT Mignon Mclean MD IMMUNOLOGY ORDERABLES Final R esult [facility] [address] [place] [address], [facility] [phone] [address], [facility] [phone] * Hepatitis B Surface Antigen (12/31/2024 9:18 AM EDT) Hep B S Ag Interp Non-reacti ve 12/31/2024 11:15 AM EDT [facility] Blood BLOOD SPECIMEN / Unknown 12/31/2024 9:18 AM EDT 12/31/2024 11:12 AM EDT us Mignon Mclean MD IMMUNOLOGY ORDERABLES Final R esult [facility] [address] [place] [id number], [facility] [phone] * Comprehensive Metabolic Panel (12/31/2024 9:18 AM EDT) Sodium 141 135 - 144 mEq/L 12/31/2024 11:15 AM [facility] Potassium 3.9 3.4 - 4.9 mEq/L 12/31/2024 11:15 AM [facility] Chloride 104 95 - 107 mEq/L 12/31/2024 11:15 AM [facility] CO2 26 20 - 31 mEq/L 12/31/2024 11:15 AM [facility] Anion Gap 11 9 - 15 mEq/L 12/31/2024 11:15 AM [facility] Glucose 93 70 - 99 mg/dL 12/31/2024 11:15 AM [facility] BUN 11 8 - 23 mg/dL 12/31/2024 11:15 AM [facility] Creatinine 1.05 0.70 - 1.20 mg/dL 12/31/2024 11:15 AM [facility] Est, Glom Filt Rate 78.7 >60 12/31/2024 11:15 AM [facility] Comment: Pediatric calculator link https://www.kidney.org/professionals/kdoqi/gfr_calculatorped Effective [...] therapy that affects renal tubular secretion. Calcium 9.2 8.5 - 9.9 mg/dL 12/31/2024 11:15 AM [facility] Total Protein 7.0 6.3 - 8.0 g/dL 12/31/2024 11:15 AM [facility] Albumin 4.2 3.5 - 4.6 g/dL 12/31/2024 11:15 AM [facility] Total Bilirubin 0.4 0.2 - 0.7 mg/dL 12/31/2024 11:15 AM [facility] Alkaline Phosphatase 101 35 - 104 U/L 12/31/2024 11:15 AM [facility] ALT 19 0 - 41 U/L 12/31/2024 11:15 AM [facility] AST 19 0 - 40 U/L 12/31/2024 11:15 AM [facility] Globulin 2.8 2.3 - 3.5 g/dL 12/31/2024 11:15 AM [facility] Blood BLOOD SPECIMEN / Unknown 12/31/2024 9:18 AM EDT 12/31/2024 11:12 AM EDT Mignon Mclean MD CHEMISTRY ORDERABLES Final Re sult [facility] [address] [facility]. [place] [id number], [facility] [phone] * Colonoscopy (06/10/2024 7:19 AM EST) 06/10/2024 7:19 AM EST Narrative [facility] MUSE - 06/10/2024 7:19 AM [facility] Patient: DENVER CAMPBELL : 1960 Account: [id number] Sex at : Male Age: 63 Years [...] - Await pathology results. 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 All Rights Reserved. The CPT codes, CCI edits and ICD codes generated are intended as suggestions and were generated based on input data. These codes are preliminary and upon spring inspector review may be revised to meet current compliance and payer requirements. The provider is responsible for the final determination of appropriate codes, and modifiers. Scope Withdrawal Time: 00:06:31 Aneesh Izaguirre MD This document has been electronically signed. Note Initiated:06/10/2024 Note Completed:06/10/2024 7:48 AM Procedure Note Aneesh Izaguirre MD - 06/10/2024 [facility] Patient: DENVER DE LA GARZAN: [id number] : 1960 Account: [id number] Sex at : Male Age: 63 Years [...] - Await pathology results. 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 All RightsReserved. The CPT codes, CCI edits and ICD codes generated are intended as suggestions and were generated based on input data. These codesare preliminary and upon spring inspector review may be revised to meet current compliance and payer requirements. The provider is responsiblefor the final determination of appropriate codes, and modifiers. Scope Withdrawal Time: 00:06:31 Aneesh Izaguirre MD This document has been electronically signed. Note Initiated:06/10/2024 Note Completed:06/10/2024 7:48 AM Aneesh Izaguirre MD ENDOSCOPY ORDERABLES Lara l Result Performing Organization Address [facility]/ZIP Co de Phone Number SW[facility] MUSE * Hemoglobin A1c (04/11/2024 4:24 AM EST) [facility] Hemoglobin A1C 5.9 4.0 - 6.0 % 04/11/2024 6:48 PM EST [facility] Estimated Avg Glucose 123 mg/dL 04/11/2024 6:48 PM EST [facility] Comment: The ADA and AACC recommend providing the estimated average glucose result to permit better patient understanding of their HBA1c result. Performed at [facility], [address] [place] [address] . Blood BLOOD SPECIMEN / Unknown 04/11/2024 4:24 AM EST 04/11/2024 4:31 AM EST us Gladys Borja CNP CHEMISTRY ORDERABLES Final Result Performing Organization Address [facility] Co de Phone Number [facility] [address] [place] [address], [facility] [phone] [address], [facility] [phone] * Psa screening (08/22/2014 8:41 AM EDT) [facility] PSA 2.07 0.00 - 3.89 ng/mL 08/22/2014 5:22 PM EDT [facility] Comment: When the Total PSA is between 3.00 and 10.00 ng/mL, consider requesting a Free PSA to aid in diagnosis. 08/22/2014 8:41 AM EDT 08/22/2014 4:47 PM EDT us Joe Johns MD CHEMISTRY ORDERABLES Final Resu lt Performing Organization Address [facility]/ZIP Co de Phone Number [facility] * (ABNORMAL) Lipid Panel (08/22/2014 8:41 AM EDT) Pathologist [facility] Cholesterol, Total 191 0 - 199 mg/dL [...] Insurance MEDICARE Member Subscriber Plan / Payer (Ef fective 2024-Present) Name:Denver Campbell Relation to Subscriber:Self Name:Denver Campbell Payer ID:Not on file Group ID:Not on file Type:Not on file Address: [address] Advance Directives * Full Code (Latest [...] Campbell Spouse Primary Decision Maker Care Teams Communication Center Coordinator Relationship Specialty Start Date End Date Sherie Ramon APRN - ROBERT PCP - General 07/26/22
--- OUTSIDE RECORDS SUMMARY | 2025-02-20 09:35 | XMS_ITS | Encounter Summary ---
Author Organization [facility] 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) Procedures Vascular duplex lower extremity arteries right Amilcar Yan MD [id number] [place] [address] [address] [place] [address] Phone: tel: fax: Referral ID Status Reason Start Date Expiration Date Visits Re quested Visits Authorized [id number] Closed 01/10/2023 01/05/2024 1 1 * Other (Routine) - Closed Specialty Diagnoses / Procedures Referred By Contac t Referred To Contact Diagnoses Aneurysm of infrarenal abdominal aorta, unspecified whether ruptured Procedures Vascular duplex abdominal aorta Amilcar Yan MD [id number] [place] [address] [address] [place] [address] Phone: tel: fax: Referral ID Status Reason Start Date Expiration Date Visits Re quested Visits Authorized [id number] Closed 01/10/2023 01/05/2024 1 1 Encounter Details Date Type Department Care Team (Latest Contact Info) Description 01/05/2023 Transcribe Orders Luis Jorge Pre Access [address] [place] [address] [place] [address] [place], [place] [id number] Aneurysm of infrarenal abdominal aorta, unspecified whether [...] Description 03/19/2025 1:40 PM EDT Office Visit [facility] [place] [address] [place] [address] Mignon Mclean MD [address] [place] [address] 4 to 6 week follow up 04/24/2025 1:15 PM EST Office Visit [facility] [address] [place] [address] [address] [place] [address] Laci Dominique MD [address] [facility] [address] [place] [address] 6 month follow up 09/25/2025 1:30 PM EDT Office Visit [facility] [address] [address] [place] [address] Anders Santiago PAJonhC [address] [place] [address] [facility] [address] [place] [address] 1 yr KUB documented as [...] significant stenosis in the right lower extremity. us Amilcar Yan MD CV VASCULAR ORDERABLES Final Result documented in this [...] ruptured documented in this encounter Care Teams Model Maker Plastic Relationship Specialty Start Date End Date Sherie Ramon APRN - [address] ATTENDANT PCP - General 07/26/22 documented as of this encounter
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
== END 2025-02-20 09:33 | disposition home or self-care (01) ==
LOC: PM 09:32
PROVIDERS: Visit Provider Nurse Practitioner
DX: M54.16 Radiculopathy, lumbar region (principal); M48.062 Spinal stenosis, lumbar region with neurogenic claudication; M79.18 Myalgia, other site; M47.816 Spondylosis without myelopathy or radiculopathy, lumbar region
CPT/HCPCS: G0463

== ENCOUNTER 2025-03-24 08:05 | Day surgery (SDC) | payer MEDICARE, SELFPAY ==
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
--- OUTSIDE RECORDS SUMMARY | 2025-03-24 08:09 | XMS_ITS | Clinical Summary ---
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 Primary Care Provider + Allergies No known active allergies Medications MedicationSigDispense QuantityRefillsLast FilledStart DateEnd DateStatus baclofen (LIORESAL) 10 MG tablet Take 1 tablet by mouth 3 times daily Only takes twice daily per patient 01/28/2021ctive gabapentin (NEURONTIN) 600 MG tablet Patient taking 800 mg po twice daily12/24/2021ctive atorvastatin (LIPITOR) 20 MG tablet Take 1 tablet by mouth daily 90 tablet ctive Additional Information Patient not taking.Reported on 02/05/2025 rOPINIRole (REQUIP) 1 MG tablet Take 2 tablets by mouth dsbdasx8004/05/2024ctive buPROPion (WELLBUTRIN SR) 150 MG extended release tablet Take 1 tablet by mouth 2 times daily 60 tablet ctive tamsulosin (FLOMAX) 0.4 MG capsule Take 1 capsule by mouth daily 30 capsule ctive Additional Information Patient not taking.Reported on 02/05/2025 nicotine (NICODERM CQ) 14 MG/24HR Place 1 patch onto the skin daily 30 patch ctive Additional Information Patient not taking.Reported on 02/05/2025 Vitamin D (CHOLECALCIFEROL) 50 MCG (1999) TABS tablet Take 1 tablet by mouth Daily with supper 60 tablet ctive pantoprazole (PROTONIX) 40 MG tablet Indications:Essential hypertensionTake 1 tablet by mouth daily 90 tablet 5Active clopidogrel (PLAVIX) 75 MG tablet Take 1 tablet by mouth daily 90 tablet 5Active Cyanocobalamin (VITAMIN B 12) 500 MCG TABS Take 500 mcg by mouth dailyActive ferrous sulfate (IRON 325) 325 (65 Fe) MG tablet Take 1 tablet by mouth daily (with breakfast)Active Sofosbuvir-Velpatasvir 400-100 MG TABS Take 1 tablet by mouth daily 30 tablet 5Active metoprolol succinate (TOPROL XL) 25 MG extended release tablet TAKE 1 TABLET BY MOUTH EVERY DAY 90 tablet 5Active Active Problems ProblemNoted DateDiagnosed DateKidney bhphug7309/13/2024Ileostomy dysfunction 06/10/20248674Tozeqwxxjpm67/06/2024Oral dkmnmnmxakn57/05/2024rimary hypertension 04/23/2024ost-op pain04/22/2024Ileostomy in place04/22/2024iverticulitis of sigmoid colon04/16/20247089Osrxspmsefcr50/26/2024ry skin yhzhfwzflf87/26/2024 Multiple joint pain04/16/2024heumatoid rokheiqre55/26/2024Impaired mobility & ADLs dt RA flare sp debility xtbjmuboc58/26/7072Upunl06/25/2024Urinary retention 04/15/2024Status post vvpmufuopdb43/22/2024 Assessment & Plan (05/07/2024 2:12 PM EST): New, at goal (stable), needs routine vaccination as discussed with patient and Hemorrhagic shock4524Lfypmordwyqymp44/20/2024Perforation and abscess of large intestine concurrent with and due to tlgoxutdlljoqr56/01/2024 Assessment & Plan (05/07/2024 2:12 PM EST): New and at goal DC PICC line. 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 Spondylosis of lumbar spine02/26/2024History of colonic rgtast8202/13/2024 Overview (02/21/2024): Problem List Diagnosis Replacement Utility 02/20/2024 Herniated lumbar intervertebral disc08/23/2022Thrombosis of arteries of lower fcipzhbin30/04/2023Mixed hkvzstorikvwoj65/27/3987Ylkmwbuh44/26/2022Smoker 12/28/2021eripheral vascular qxudyvb41/09/2022AAA (abdominal aortic aneurysm) without getomxx9706/03/2021Iliac artery stenosis, left05/28/2021Thrombosis of both common femoral jlutbqzc89/07/2022Edema of left lower leg due to peripheral venous hoyiwwebgrxlh54/26/2021therosclerosis of [place] arteries of extremities with intermittent claudication, left leg03/16/2021olonic diverticular abscess 01/13/2021Tobacco use01/13/2021hronic midline low back pain with bilateral rmufzfhm07/25/2021cute vpfosncvgntewi07/24/2021Ureteral /27/2021 Nicotine imueywhciq90/09/2017 Overview (04/16/2024): Comment on above: Added secondary to documentation in Social History. Added secondary to documentation in Social History. Chest pain09/29/2014GERD (gastroesophageal reflux disease)09/29/2014AA (abdominal aortic aneurysm)Lumbar degenerative disc diseaseHypokalemiaLabile blood pressure Resolved Problems ProblemNoted DateDiagnosed DateResolved DateColon cancer hppkdhulj32/17/2024 5Colon cancer pyadutnzr75 Encounters DateTypeDepartmentCare VgfiOktlnuijwts75/29/2025 11:45 AM EDTOffice Visit [facility] [address] [place] [address] Mignon Mclean MD Chronic hepatitis C without hepatic coma (HCC) (Primary Dx)03/19/2025Orders Only [facility] [address] [place] [address] Mignon Mclean MD Chronic hepatitis C without hepatic coma (HCC)02/16/2025Refill [facility] [address] [facility], [address] [address] Laci Dominique MD Medication Nmptgl1802/05/2025 2:00 PM EDTOffice Visit [facility] [place] [address] [place] [address] Mignon Mclean MD Chronic hepatitis C without hepatic coma (HCC) (Primary Dx)01/09/2025[facility] Gastroenterology [address] [place] [address] Chayito Amos MA OTHER01/08/2025 1:50 PM EDTOffice Visit [facility] [place] [address] [place] [address] Mignon Mclean MD Chronic hepatitis C without hepatic coma (HCC) (Primary Dx)01/08/2025[facility] Cardiology [address] [address] Laci Dominique MD wpwvepxvzoi83/12/2025 10:30 AM EDTAncillary Procedure [facility] [place] [address] [place] [address] Hepatitis C antibody jfaxrwtj61/12/2025Orders Only [facility] [place] [address] [place] [address] Mignon Mclean MD Hepatitis C antibody positive; Chronic hepatitis C without hepatic coma (HCC)12/30/2024[facility] Cardiology [address] [address] Laci Dominique MD 12/25/2024 2:50 PM EDTOffice Visit [facility] [place] [address] [place] [address] Mignon Mclean MD Hepatitis C antibody positive (Primary Dx); Chronic hepatitis C without hepatic coma (HCC)from Last 3 Months Immunizations ImmunizationAdministration DatesNext DueHib PRP-T, ACTHIB (age 2m-5y, Adlt Risk), HIBERIX (age 6w-4y, Adlt Risk), IM, 0.5mL04/12/2024Influenza, AFLURIA, FLUZONE, (age3 y+), IM, Trivalent MDV, 0.5mL04/12/2024Meningococcal ACWY, MENVEO (MenACWY-CRM), (age 2m-55y), IM, 0.5mL04/12/2024Meningococcal B, BEXSERO, (age 10y-25y), IM, 0.5mL04/12/2024neumococcal, PCV-13, PREVNAR 13, (age 6w+), IM, 0.5mL04/12/2024 Family History Medical HistoryRelationNameCommentsNo Known ProblemsBrotherx 1No Known Problems Daughterx 1CancerFatherPrimary site unknown to patientCancerMotherPrimary site unknown to patientHeart DiseaseMotherNo Known ProblemsSisterx 3No Known Problems Sonx 1Colon CancerNeg HxRelationNameStatusCommentsBrotherx 1AliveDaughterx 1 AliveFatherDeceasedMotherDeceasedSisterx 3AliveSonx 1Alive Social History Tobacco UseTypesPacks/DayYears UsedDateSmoking Tobacco: Every VmjCkhqcbayfo461.8 Started: 05/28[birth year]1969Passive Smoke Exposure: PastSmokeless Tobacco: Never Tobacco Cessation:Ready to Q uit: No; Counseling Given: No Comments:Patient has slowed down Alcohol UseStandard Drinks/WeekCommentsNo0 (1 standard drink = 0.6 oz pure alcohol)[facility] UtilitiesAnswerDate RecordedIn the past 12 months has the [employer], gas, oil, or water [employer] threatened to shut off services in your home?No 04/20/2024HQ-2AnswerDate RecordedPHQ-9 Total Yjamy47207/08/2023Hunger Vital Sign AnswerDate RecordedWithin the past 12 [...] were you homeless or living in a snf (including now)?No04/20/2024Food Insecurity AnswerDate RecordedWithin the past 12 months, you worried that your food would run out before you got the money to buymore.Within the past 12 months, the food you bought just didn't last and you didn't have money to get more.Interpersonal Safety Domain Source: IP Abuse ScreeningAnswerDate RecordedPhysical zhqyjDcmrlf99/10/2025Verbal yngxrYohlzz19/10/2025Emotional gvxggRcyncx96/10/2025Financial fsbghRtmaka61/10/2025Sexual jnlsoTbflyk48/10/2025 Sex and Gender InformationValueDate RecordedSex Assigned at BirthNot on file Legal FnuUrph8808/11/2014 2:52 PM EDTGender IdentityNot on fileSexual Orientation Not on file Last Filed Vital Signs Vital SignReadingTime TakenCommentsBlood Iytwxhho849/7410 11:28 AM EDT Olgnz3479 1:49 PM JTFPfgdnqwllbb58.2 ??C (99 ??F)02/05/2025 1:49 PM EDT Respiratory Oxql633802/05/2025 1:49 PM EDTOxygen Mbdvrgmgsh81%02/05/2025 1:49 PM EDTInhaled Oxygen Concentration--Rrnkxe27.8 kg (187 lb)03/19/2025 11:28 AM EDT Mbzjnm609.3 cm (5' 9 )02/05/2025 1:49 PM EDTBody Mass Index27.6209 1:49 PM EDT Plan of Treatment DateTypeDepartmentCare Team (Latest Contact Info)Ueqjgerhkxe50/04/2025 1:15 PM ESTOffice Visit [facility] [address] [facility] [address] [place] [address] Laci Dominique MD [address] [facility] [address] [place] [address] 6 month follow up08/11/2025 2:00 PM EDTOffice Visit [facility] Gastroenterology [address] [place] [address] Horacio Perez MD [address] [place] [address] FU09/25/2025 1:30 PM EDTOffice Visit [facility] Urology [address] [facility] 2nd [place] [address] Anders Santiago, PAAna 27 [facility] [address] [address] 1 yr KUBHealth MaintenanceDue DateLast DoneCommentsHepatitis A vaccine (1 of 2 - Risk 2-dose series)09/30/1978FIT/FOBT: Average risk09/30/2004Fecal-DNA (Cologuard): Average risk09/30/2004Sigmoidoscopy/CT yjigsyoriohm28/12/2005Lung Cancer Screening &/or Jahlwfusbv98/12/2010Shingles vaccine (1 of 2)09/30/2009 Zfbubg98/03/Hepatitis B vaccine (1 of 3 - Risk 3-dose series) 2019Respiratory Syncytial Virus (RSV) or age 60 yrs+ (1 - Risk 60-74 years 1-dose series)2019Meningococcal B vaccine (2 of 5 - Increased Risk Bexsero 3-dose series)/Meningococcal (ACWY) vaccine (2 - Risk 2-dose series)4Pneumococcal 50+ years Vaccine (2 of 2 - PPSV23, PCV20, or PCV21)/2024Annual Wellness Visit (Medicare) 10/17/2024Flu vaccine (#1)/, 04/11/2019COVID-19 Vaccine (3 - season)/, 1A1C test (Diabetic or Prediabetic)/epression Lnnuxx53/, 4DTaP/Tdap/Td vaccine (3 - Td or Tdap)/06/2021, 03/24/2017 Sehrpybbged28/20/203501/, 06/10/2024, 02/21/2024, Additional history existsColorectal Cancer Apjxjm0806/10/2034Prostate Specific Antigen (PSA) Screening or AfbrddxcntBzcgppmhcepr50/03/2015Diabetes screenDiscontinued 04/11/2024Hib ohyapokVkhkqezgl64/22/2024Pneumococcal 0-49 years Vaccine Jvqgxheijcls30/22/2024HIV zovslbHuugrqyus06/12/2025GFR test (Diabetes, CKD 3-4, OR last GFR 15-59)Zvxncxemarbl02/29/2025, 12/31/2024, 07/02/2024, Additional history existsHepatitis C fdwrpbBqnjyhdih78/29/2025, 12/31/2024Polio vaccineAged OutNo longer eligible based on patient's age to complete this topic Medical Devices ImplantedTypeAreaManufacturerDevice IdentifierShelf Expiration DateModel / Serial / LotGraft Evar L14cm Aort [id number] Il Hgp34ml Ipsilateral Leg W/ - [id number] Implanted:Qty: 1 on 06/03/2021 [facility]Right: [employer]-[id number] / [id number] / Description:Main body abdominal aortaGraft Endopros L12cm Dst Mhq51tk Contralateral Leg W/ C3 - [id number] Implanted:Qty: 1 on 06/03/2021 by [facility] CenterEndograftsGroinW [employer]ORE [employer] INC-[id number] / [id number] / Description:Implanted in: LEFT COMMON ILIAC ARTERYStent Protege Everflex [id number] Implanted:Qty: 1 on 06/03/2021 [facility]:Biliary/Pancreatic/IliacGroinMEDTRONIC [facility] INC-PMM11/20/2021 [id number] / / [id number]:IMPLANTED IN: LEFT FEMORAL ARTERYStent Uret 6fr L26cm Hydr+ Pgtl Tapr Tip Grad Bldr Mrk Lo Implanted:Qty: 1 on 06/05/2020 [facility]: UreterBO[facility] SCI [facility]Y-WD10/28/[id number] / / [id number] Uret 6fr L26cm Hydr+ Pgtl Tapr Tip Grad Bldr Mrk Lo Implanted:Qty: 1 on 06/18/2020 by [facility]Left: UreterBOSTON SCI UROLOGY-WD10/28/[id number] / / [id number] Biologic Vasc 1cm Wx14cm L .55mm Thicknessxenosure Implanted:Qty: 1 on 06/03/2021 [facility]-WD08/16/84434H48 / / [id number] Procedures Procedure NamePriorityDate/TimeAssociated DiagnosisCommentsHEPATITIS C RNA, QUANTITATIVE, UPLGmqnnge82/29/2025 11:55 AM EDT Chronic hepatitis C without hepatic coma (HCC) XXWVgcjcvd56/29/2025 11:55 AM EDT Chronic hepatitis C without hepatic coma (HCC) COMPREHENSIVE METABOLIC MLHUEWtmcmpz18/29/2025 11:55 AM EDT Chronic hepatitis C without hepatic coma (HCC) US VKJBVXIDUYmupbxb39/12/2025 10:10 AM EDT Hepatitis C antibody positive HEP C GENOTYPING PCR & OTAQXMSTXtioizd98/12/2025 9:18 AM EDT HEPATITIS C RNA QNT W GENOTYPE AMKKVjjxxfd00/12/2025 9:18 AM EDT Hepatitis C antibody positive CBC WITH AUTO CXGTUCFXAVSSYhcsrer62/12/2025 9:18 AM EDT Hepatitis C antibody positive COMPREHENSIVE METABOLIC VQGCAYyoluxi44/12/2025 9:18 AM EDT Hepatitis C antibody positive HEPATITIS A ANTIBODY, IHBNSJfulhoz98/12/2025 9:18 AM EDT Hepatitis C antibody positive HEPATITIS B CORE ANTIBODY, MDCLMKyvgved90/12/2025 9:18 AM EDT Hepatitis C antibody positive HEPATITIS B SURFACE IWCOPAVRsimbsy61/12/2025 9:18 AM EDT Hepatitis C antibody positive HEPATITIS B SURFACE ZWQADJMARpbpyhv24/12/2025 9:18 AM EDT Hepatitis C antibody positive HIV UXAKZMWcymspn24/12/2025 9:18 AM EDT Hepatitis C antibody positive Chronic hepatitis C without hepatic coma (HCC) COLONOSCOPY NTKNIJJMFPkyxyva50/20/2025 7:19 AM EST HEMOGLOBIN R0TTjfnnsh19/21/2024 4:24 AM EST PSA GJCTRODEYMuowwai25/03/2015 8:41 AM EDT LIPID MWTOGPaoakrn48/03/2015 8:41 AM EDT from Last 3 Months or Most Recently Relevant to Health Maintenance Results * Hepatitis C RNA, quantitative, PCR (03/19/2025 11:55 AM EDT)ComponentValueRef RangeTest MethodAnalysis TimePerformed AtPathologist SignatureHCV QNT by NAAT IU/MLNot DetectedIU/mL03/21/2025 5:19 PM EDTARUP LABORATORYHCV Qnt by NAAT log IU/mlNot Detectedlog IU/mL03/21/2025 5:19 PM EDTARUP LABORATORYInterpretation Not DetectedNot Mhivianm22/31/2025 5:19 PM EDTARUP LABORATORYComment: INTERPRETIVE INFORMATION: HCV by Quantitative NAAT [...] and cellular tissue-based products (HCT/P). Performed By: [facility] [address] [place] [address] Library Technician: Chriss Agudelo MD, PhD CLIA Number: [id number] Specimen (Source)Anatomical Location / LateralityCollection Method / Volume Collection TimeReceived TimeBloodBLOOD SPECIMEN / Otflsbp1903/19/2025 11:55 AM EDT 03/19/2025 12:54 PM EDT Narrative Authorizing ProviderResult TypeResult StatusHicmadelyn Mclean MDIMMUNOLOGY ORDERABLESFinal ResultPerforming OrganizationAddressCity/State/ZIP CodePhone Number [facility] [address] [place] [address], [facility] [phone] [facility] [address] [place] [id number] [place] [address] * (ABNORMAL) CBC (03/19/2025 11:55 AM EDT)ComponentValueRef RangeTest Method Analysis TimePerformed AtPathologist SignatureWBC8.74.8 - 10.8 K/uL03/19/2025 12:50 PM [facility] LABRBC4.974.70 - 6.10 M/uL03/19/2025 12:50 PM [facility] FZKJpuczqabyt28.714.0 - 18.0 g/dL 03/19/2025 12:50 PM [facility] BINXquzduvzlf45.342.0 - 52.0 %03/19/2025 12:50 PM [facility] GEGFYH44.2(H)79.0 - 92.2 fL03/19/2025 12:50 PM [facility] AXCARN83.6(H)27.0 - 31.3 pg03/19/2025 12:50 PM [facility] KRCKQRA06.5(L)33.0 - 37.0 %03/19/2025 12:50 PM [facility] BRJEAM67.0(H)11.5 - 14.5 %03/19/2025 12:50 PM [facility] SCCHkvkeoqap674807 - 400 K/uL03/19/2025 12:50 PM [facility] LABSpecimen (Source)Anatomical Location / LateralityCollection Method / VolumeCollection TimeReceived TimeBloodBLOOD SPECIMEN / Fqaiznu3703/19/2025 11:55 AM EDT 03/19/2025 12:44 PM EDT Narrative Authorizing ProviderResult TypeResult StatusHicmadelyn Mclean MDHEMATOLOGY ORDERABLESFinal ResultPerforming OrganizationAddressCity/State/ZIP CodePhone Number [facility] [address] [place] [id number], [facility] [phone] * (ABNORMAL) Comprehensive Metabolic Panel (03/19/2025 11:55 AM EDT) Only the most recent of2 resultswithin the time period is included. ComponentValueRef RangeTest MethodAnalysis TimePerformed AtPathologist Signature Tbhxjh267745 - 144 mEq/L1 12:52 PM [facility] Potassium4.63.4 - 4.9 mEq/L1 12:52 PM [facility] RMVNhlilwvi53013 - 107 mEq/L1 12:52 PM [facility] QDJHT92604 - 31 mEq/L1 12:52 PM [facility] Anion Udw608 - 15 mEq/L1 12:52 PM [facility] Mpanpdh2823 - 99 mg/dL03/19/2025 12:52 PM [facility] LABBUN 178 - 23 mg/dL03/19/2025 12:52 PM [facility] LABCreatinine 1.100.70 - 1.20 mg/dL03/19/2025 12:52 PM [facility] LABEst, Glom Filt Rate74.3>6003/19/2025 12:52 PM [facility] Comment: Pediatric calculator link https://www.kidney.org/professionals/kdoqi/gfr_calculatorped Effective [...] following therapy that affects renal tubular secretion. Tkwfuwp84.0(H)8.5 - 9.9 mg/dL03/19/2025 12:52 PM [facility] LABTotal Protein7.46.3 - 8.0 g/dL03/19/2025 12:52 PM [facility] LABAlbumin4.33.5 - 4.6 g/dL03/19/2025 12:52 PM [facility] LABTotal Bilirubin0.30.2 - 0.7 mg/dL03/19/2025 12:52 PM [facility] LABAlkaline Cuvprngwqbq410(H)35 - 104 U/L1 12:52 PM EDT [facility] MYZSOL550 - 41 U/L1 12:52 PM [facility] NJJLJI584 - 40 U/L1 12:52 PM [facility] LABGlobulin3.12.3 - 3.5 g/dL03/19/2025 12:52 PM [facility] LABSpecimen (Source)Anatomical Location / LateralityCollection Method / VolumeCollection TimeReceived TimeBloodBLOOD SPECIMEN / Unknown 03/19/2025 11:55 AM EDT1 12:43 PM EDT Narrative Authorizing ProviderResult TypeResult StatusMignon Mclean MDCHEMISTRY ORDERABLESFinal ResultPerforming OrganizationAddressCity/State/ZIP CodePhone Number [facility] [address] [place] [address], [facility] [phone] * [place] FIBROSCAN (12/31/2024 10:10 AM EDT)Anatomical RegionLateralityModality AbdomenUltrasoundSpecimen (Source)Anatomical Location / LateralityCollection Method / VolumeCollection TimeReceived Time Narrative 01/08/2025 1:56 PM EDT Table formatting from the original result was not included. Velocity Controlled Transient Elastography (Fibroscan) Healthcare Financial Analyst: ??Niki Holloway Attending: ??Mignon Mclean MD Patient was identified via name and . Denver Campbell presents to endoscopy suite for VCTE. Referring Physician: ??Dr. Mclean Diagnosis: ??Hep C Probe Used: ??M Pre-procedure Checklist: Presence of ascites: ??No Fasting for at least two hours: ??Yes Alcohol Use: ??No History of heart failure: ??No @DSMAQQJ99ALU(ALT:3,AST:3,GGT:3,ALKPHOS:3,BILITOT:3)@ @RESUFAST(PLT:3)@ Findings: Median kPa: ??6.7 IQR/med (%): ??7 Controlled Attenuation Paramater (CAP) Median (dB/m): ??261 IQR (%): ??24 Interpretation: Appropriate reading, Based on LSM of 6.7 Kpa, NO evidence of advanced fibrosis noted Fibrosis stage 0-I ( F0-1) Based on CAP of 261 db/M, Mild steatosis (< 33%) - S1. Clinical correlation indicated Mignon Mclean MD [facility] Authorizing ProviderResult TypeResult StatusHicmadelyn Mclean MDUNION GENERAL [facility] ORDERABLES Final Result * (ABNORMAL) Hepatitis C RNA QNT W Genotype RFLX (12/31/2024 9:18 AM EDT) ComponentValueRef RangeTest MethodAnalysis TimePerformed AtPathologist SignatureHCV QNT by NAAT IU/ML1,040,000IU/mL01/02/2025 1:02 AM EDTARUP LABORATORYHCV Qnt by NAAT log IU/ml6.02log IU/mL01/02/2025 1:02 AM EDTARUP LABORATORYComment:Hepatitis C Virus Genotype by Sequencing added. InterpretationDetected(A)Not Esmpdaap12/14/2025 1:02 AM EDTARUP LABORATORY Comment: INTERPRETIVE INFORMATION: HCV by Quantitative [...] and cellular tissue-based products (HCT/P). Performed By: [facility] [address] [place] [address] Library Technician: Chriss Agudelo MD, PhD CLIA Number: [id number] Specimen (Source)Anatomical Location / LateralityCollection Method / Volume Collection TimeReceived TimeBLOOD SPECIMEN / Kyrpcnt5912/31/2024 9:18 AM EDT 12/31/2024 11:12 AM EDT Narrative Authorizing ProviderResult TypeResult StatusHicham allafi MDCHEMISTRY ORDERABLESFinal ResultPerforming OrganizationAddressCity/State/ZIP CodePhone Number [facility] [address] [facility]. [place], [place] [address] [phone] [facility] [address] [place] [address] [phone] * HEP C GENOTYPING PCR & SEQUENCE (12/31/2024 9:18 AM EDT)ComponentValueRef RangeTest MethodAnalysis TimePerformed AtPathologist SignatureHepatitis C Gvhodjmp0z or 1b01/04/2025 8:08 AM EDTARUP LABORATORYComment: Cannot be further subtyped into Type 1a or Type 1b due to high conservation of the 5' untranslated region of the HCV genome. In addition, Type 6 virus may be misclassified as Type 1 in some cases. The Hepatitis C Virus High-Resolution Genotype by Sequencing test ([employer] test code 6348549) provides a higher level of subtype resolution. INTERPRETIVE INFORMATION: ??Hepatitis C Genotyping Hepatitis C viral RNA is tested using reverse waitangi tribunal member polymerase chain reaction (RT-PCR) to amplify a specific portion of the 5' untranslated region (5' UTR) of the viral genome. The amplified nucleic acid is sequenced bidirectionally using dye-terminator chemistry ([employer]). Sequencing data is compared to a database [...] developed and its performance characteristics determined by [facility]. It has not been cleared or approved by the U.S. Food and Drug Administration. This test was performed in a CLIA-certified laboratory and is intended for clinical purposes. Performed By: [facility] [address] [place] [address] Library Technician: Chriss Agudelo MD, PhD CLIA Number: [id number] Specimen (Source)Anatomical Location / LateralityCollection Method / Volume Collection TimeReceived Time12/31/2024 9:18 AM EDT12/31/2024 11:12 AM EDT Narrative Authorizing ProviderResult TypeResult StatusHicham Khallafi MDCHEMISTRY ORDERABLESFinal ResultPerforming OrganizationAddressCity/State/ZIP CodePhone Number [facility] [address] [place] [id number] [phone] [facility] [address] [place], [place] [address] [phone] * (ABNORMAL) CBC with Auto Differential (12/31/2024 9:18 AM EDT)ComponentValue Ref RangeTest MethodAnalysis TimePerformed AtPathologist SignatureWBC8.84.8 - 10.8 K/uL12/31/2024 11:16 AM [facility] LABRBC4.55(L)4.70 - 6.10 M/uL12/31/2024 11:16 AM [facility] LABHemoglobin 12.2(L)14.0 - 18.0 g/dL12/31/2024 11:16 AM [facility] Ucpjvcljtl36.3(L)42.0 - 52.0 %12/31/2024 11:16 AM [facility] QHSZQF81.679.0 - 92.2 fL12/31/2024 11:16 AM [facility] HDHXMC14.8(L)27.0 - 31.3 pg12/31/2024 11:16 AM [facility] VSNAWHD07.3(L)33.0 - 37.0 %12/31/2024 11:16 AM [facility] JVSGOP84.0(H)11.5 - 14.5 %12/31/2024 11:16 AM [facility] BSJVykuoytko283(H)130 - 400 K/uL12/31/2024 11:16 AM [facility] LABPLATELET SLIDE ETEXWWFnabqzpxj02/12/2025 3:35 PM [facility] LABSLIDE REVIEWsee below12/31/2024 3:35 PM [facility] LABComment:Slide review agrees with reported results Neutrophils %72.3%12/31/2024 11:16 AM [facility] Lymphocytes %15.5%12/31/2024 11:16 AM [facility] Monocytes %8.9%12/31/2024 11:16 AM [facility] Eosinophils %2.3%12/31/2024 11:16 AM [facility] Basophils %0.8%12/31/2024 11:16 AM [facility] Neutrophils Absolute6.41.4 - 6.5 K/12/31/2024 11:16 AM [facility] LABLymphocytes Absolute1.41.0 - 4.8 K/12/31/2024 11:16 AM [facility] LABMonocytes Absolute0.80.2 - 0.8 K/uL 12/31/2024 11:16 AM [facility]Eosinophils Absolute0.2 0.0 - 0.7 K/uL12/31/2024 11:16 AM [facility] LABBasophils Absolute0.10.0 - 0.2 K/12/31/2024 11:16 AM [facility]Anisocytosis3+12/31/2024 3:09 PM [facility] Hypochromia1+12/31/2024 3:09 PM [facility] Poikilocytes3+12/31/2024 3:09 PM [facility] Acanthocytes1+12/31/2024 3:09 PM [facility] LABOvalocytes 1+12/31/2024 3:09 PM [facility] LABTarget Cells2+ 12/31/2024 3:09 PM [facility] LABBasophilic Stippling2+ 12/31/2024 3:09 PM [facility] LABSpecimen (Source) Anatomical Location / LateralityCollection Method / VolumeCollection Time Received TimeBloodBLOOD SPECIMEN / Sjkggub3712/31/2024 9:18 AM EDT12/31/2024 11:14 AM EDT Narrative Authorizing ProviderResult TypeResult StatusMignon Mclean MDHEMATOLOGY ORDERABLESFinal ResultPerforming OrganizationAddressCity/State/ZIP CodePhone Number [facility] [address] [phone] * (ABNORMAL) Hepatitis A Antibody, Total (12/31/2024 9:18 AM EDT)ComponentValue Ref RangeTest MethodAnalysis TimePerformed AtPathologist SignatureHep A Total AbPositive(A)Xbxxjmqv93/13/2025 6:38 PM EDTARUP LABORATORYComment: The positive anti-HAV is consistent with recent or remote Hepatitis A infection or antibody response to HAV vaccination. False positive anti-HAV can occur. Performed By: [facility] [address] [place] [id number] Library Technician: Chriss Agudelo MD, PhD CLIA Number: [id number] Specimen (Source)Anatomical Location / LateralityCollection Method / Volume Collection TimeReceived TimeBloodBLOOD SPECIMEN / Arpoxjs5612/31/2024 9:18 AM EDT 12/31/2024 11:12 AM EDT Narrative Authorizing ProviderResult TypeResult StatusMignon Mclean MDIMMUNOLOGY ORDERABLESFinal ResultPerforming OrganizationAddressCity/State/ZIP CodePhone Number [facility] [address] [place] [address], [facility] [phone] [phone] * Hepatitis B Core Antibody, Total (12/31/2024 9:18 AM EDT)ComponentValueRef RangeTest MethodAnalysis TimePerformed AtPathologist SignatureHep B Core Total WfVheuabbnWrxpykzf93/13/2025 5:01 PM EDTARUP LABORATORYComment: INTERPRETIVE INFORMATION: Hepatitis B Core Ab (Total) This assay should not be used for blood donor screening, associated re-entry protocols, or for screening Human Cells, Tissues and Cellular and Tissue-Based Products (HCT/P). Performed By: [facility] [address] [place] [address] Library Technician: Chriss Agudelo MD, PhD CLIA Number: [id number] Specimen (Source)Anatomical Location / LateralityCollection Method / Volume Collection TimeReceived TimeBloodBLOOD SPECIMEN / Mgyrlpj5712/31/2024 9:18 AM EDT 12/31/2024 11:12 AM EDT Narrative Authorizing ProviderResult TypeResult StatusHicmadelyn Mclean MDIMMUNOLOGY ORDERABLESFinal ResultPerforming OrganizationAddressCity/State/ZIP CodePhone Number [facility] [address] [place] [address], [facility] [phone] [phone] * HIV Screen (12/31/2024 9:18 AM EDT)ComponentValueRef RangeTest MethodAnalysis TimePerformed AtPathologist SignatureHIV Ag/WtUGGEGVYEOQYHW82/12/2025 8:58 PM EDTMERCY LABORATORIESComment: No laboratory evidence of HIV infection. ??If acute HIV infection is suspected, consider testing for HIV-1 RNA. [facility], [address] [place] [address] . Specimen (Source)Anatomical Location / LateralityCollection Method / Volume Collection TimeReceived TimeBLOOD SPECIMEN / Ivurkgp29/04/2025 9:18 AM EDT 12/31/2024 11:12 AM EDT Narrative Authorizing ProviderResult TypeResult StatusMignon Mclean MDIMMUNOLOGY ORDERABLESFinal ResultPerforming OrganizationAddressCity/State/ZIP CodePhone Number [facility] [address] [place] [address], [facility] [phone] [address], [facility] [phone] * Hepatitis B Surface Antibody (12/31/2024 9:18 AM EDT)ComponentValueRef Range Test MethodAnalysis TimePerformed AtPathologist SignatureHep B S Ab<3.50<10 mIU/mL12/31/2024 8:58 PM EDTRINITY HEALTH SYSTEM EAST CAMPUS LABORATORIESComment: REFERENCE RANGE: <10.0 NON-REACTIVE/NOT IMMUNE >=10.0 REACTIVE/IMMUNE Performed at [facility], [address] [place] [address] . Specimen (Source)Anatomical Location / LateralityCollection Method / Volume Collection TimeReceived TimeBloodBLOOD SPECIMEN / Rsorvvo6812/31/2024 9:18 AM EDT 12/31/2024 11:12 AM EDT Narrative Authorizing ProviderResult TypeResult StatusMignon Mclean MDIMMUNOLOGY ORDERABLESFinal ResultPerforming OrganizationAddressCity/State/ZIP CodePhone Number [facility] [address] [place] [address], [facility] [phone] [address], [facility] [phone] * Hepatitis B Surface Antigen (12/31/2024 9:18 AM EDT)ComponentValueRef Range Test MethodAnalysis TimePerformed AtPathologist SignatureHep B S Ag Interp Non-kcuviunq10/12/2025 11:15 AM ED[facility] LABSpecimen (Source)Anatomical Location / LateralityCollection Method / VolumeCollection TimeReceived TimeBloodBLOOD SPECIMEN / Zxgcxht5012/31/2024 9:18 AM EDT12/31/2024 11:12 AM EDT Narrative Authorizing ProviderResult TypeResult StatusMignon Mclean MDIMMUNOLOGY ORDERABLESFinal ResultPerforming OrganizationAddressCity/State/ZIP CodePhone Number [facility] [address] [place] [id number], [facility] [phone] * Colonoscopy (06/10/2024 7:19 AM EST)Specimen (Source)Anatomical Location / LateralityCollection Method / VolumeCollection TimeReceived Time06/10/2024 7:19 AM EST Narrative [facility] - 06/10/2024 7:19 AM EST [facility] Patient: DENVER CAMPBELL : 1960 Account: [id number] Sex at : Male Age: 63 Years Procedure: Colonoscopy Date: 06/10/2024 Attending Physician: Aneesh Izaguirre Indications: ? - ??Screening for colorectal malignant neoplasm Medications: ? - ??See the Anesthesia note for documentation of the administered ?medications Complications: ? - ??No immediate complications. Estimated Blood Loss: ? - ??Estimated blood loss was minimal. Procedure: ? - The scope was introduced through the anus and advanced to the ?cecum, identified by appendiceal orifice and ileocecal valve. ? - ??The colonoscopy was performed without difficulty. ? - ??The patient tolerated the procedure well. ? - ??The quality of the bowel preparation was adequate. ? - ??The ileocecal valve, appendiceal orifice, and rectum were ?photographed. Findings: ? - ??There was evidence of a prior end-to-end colo-rectal anastomosis ?in the rectum. ??This was patent and was characterized by healthy ?appearing mucosa. ??The anastomosis was traversed. ? - ??An 8 mm polyp was found in the descending colon. ??The polyp was ?sessile. ??The polyp was removed with a hot snare. ?? Resection and ?retrieval were complete. Impression: ? - ??Patent end-to-end colo-rectal anastomosis, characterized by ?healthy appearing mucosa. ? - ??One 8 mm polyp in the descending colon, removed with a hot snare. ? Resected and retrieved. Recommendation: ? - ??Await pathology results. Procedure Code(s): ? - 63270, Colonoscopy, flexible; with removal of tumor(s), polyp(s), ?or other lesion(s) by snare technique Diagnosis Code(s): ? - Z12.11, Encounter for screening for malignant neoplasm of colon ? - Z98.0, Intestinal bypass and anastomosis status ? - D12.4, Benign neoplasm of descending colon ?CPT(R) - 2022 copyright [employer]. All Rights Reserved. ?The CPT codes, CCI edits and ICD codes generated are intended as ?suggestions and were generated based on input data. ??These codes are ?preliminary and upon medical biller/coder review may be revised to meet current ?compliance and payer requirements. ??The provider is responsible for ?the final determination of appropriate codes, and modifiers. Scope Withdrawal Time: ? 00:06:31 Aneesh Izaguirre MD This document has been electronically signed. Note Initiated:06/10/2024 Note Completed:06/10/2024 7:48 AM Procedure Note Aneesh Izaguirre MD - 06/10/2024 [facility] Patient: DENVER CAMPBELL : 1960 Account: [id number] Sex at : Male Age: 63 Years [...] - Await pathology results. Procedure Code(s): - 53062, Colonoscopy, flexible; with removal of tumor(s),polyp(s), or other lesion(s) by snare technique Diagnosis Code(s): - Z12.11, Encounter for screening for malignant neoplasm of colon - Z98.0, Intestinal bypass and anastomosis status - D12.4, Benign neoplasm of descending colon CPT(R) - 2023 copyright [employer]. All RightsReserved. The CPT codes, CCI edits and ICD codes generated are intended as suggestions and were generated based on input data. These codesare preliminary and upon medical biller/coder review may be revised to meet current compliance and payer requirements. The provider is responsiblefor the final determination of appropriate codes, and modifiers. Scope Withdrawal Time: 00:06:31 Aneesh Izaguirre MD This document has been electronically signed. Note Initiated:06/10/2024 Note Completed:06/10/2024 7:48 AM Authorizing ProviderResult TypeResult StatusTimdany Izaguirre MDENDOSCOPY ORDERABLESFinal ResultPerforming OrganizationAddressCity/State/ZIP CodePhone Number [facility] * Hemoglobin A1c (04/11/2024 4:24 AM EST)ComponentValueRef RangeTest Method Analysis TimePerformed AtPathologist SignatureHemoglobin A1C5.94.0 - 6.0 % 04/11/2024 6:48 PM ESTMERCY LABORATORIESEstimated Avg Pevtjas033ci/dL 04/11/2024 6:48 PM ESTMERCY LABORATORIESComment: The ADA and AACC recommend providing the estimated average glucose result to permit better patient understanding of their HBA1c result. Performed at [facility], [address] [place] [address] . Specimen (Source)Anatomical Location / LateralityCollection Method / Volume Collection TimeReceived TimeBloodBLOOD SPECIMEN / Eniukyd0004/11/2024 4:24 AM EST 04/11/2024 4:31 AM EST Narrative Authorizing ProviderResult TypeResult StatusGladys Diane TRADES HELPER - CNPCHEMISTRY ORDERABLESFinal ResultPerforming OrganizationAddressCity/State/ZIP CodePhone Number [facility] [address] [place] [address], [facility] [phone] [place] [id number], [facility] [phone] * Psa screening (08/22/2014 8:41 AM EDT)ComponentValueRef RangeTest Method Analysis TimePerformed AtPathologist SignaturePSA2.070.00 - 3.89 ng/mL 08/22/2014 5:22 PM EDTCHPO LABComment: When the Total PSA is between 3.00 and 10.00 ng/mL, consider requesting a Free PSA to aid in diagnosis. Specimen (Source)Anatomical Location / LateralityCollection Method / Volume Collection TimeReceived Time08/22/2014 8:41 AM EDT08/22/2014 4:47 PM EDT Narrative Authorizing ProviderResult TypeResult StatusMartin Andreas MDCHEMISTRY ORDERABLES Final ResultPerforming OrganizationAddressCity/State/ZIP CodePhone Number [facility] * (ABNORMAL) Lipid Panel (08/22/2014 8:41 AM EDT)ComponentValueRef RangeTest MethodAnalysis TimePerformed AtPathologist SignatureCholesterol, Dytov8592 - 199 mg/dL08/22/2014 5:24 PM EDTCHPO LABComment:ATP III Cholesterol classification is Desirable.Zhifsqldvfnnq902 - 200 mg/dL08/22/2014 5:24 PM EDT [facility] LABComment:ATP III Triglycerides Classification is Normal.ZNM7849 - 59 mg/dL08/22/2014 5:24 PM EDTCHPO LABComment: ATP III HDL Cholesterol Classification is Desirable. Expected Values: Males: >55 = No Risk ?35-55 = Moderate Risk <35 = High Risk Females: >65 = No Risk ?45-65 = Moderate Risk <45 = High Risk NCEP Guidelines: ??Third Report September 2000 >59 = negative risk factor for CHD <40 = major risk factor for CHD LDL Bdnkfkxthg926(H)0 - 129 mg/dL08/22/2014 5:24 PM EDTCHPO LABComment:ATT III Classification is Borderline High.Specimen (Source)Anatomical Location / LateralityCollection Method / VolumeCollection TimeReceived Time08/22/2014 8:41 AM EDT08/22/2014 4:47 PM EDT Narrative Authorizing ProviderResult TypeResult StatusMartin Andreas MDCHEMISTRY ORDERABLES Final ResultPerforming OrganizationAddressCity/State/ZIP CodePhone Number [facility] from Last 3 Months or Most Recently Relevant to Health Maintenance Insurance Advance Directives * Full Code (Latest Code Status on File) Date ActivatedDate InactivatedComments07/01/2024 1:58 PM2 3:29 PM * Full Code Date ActivatedDate InactivatedComments07/01/2024 1:58 PM2 1:58 PM * Full Code Date ActivatedDate InactivatedComments06/10/2024 6:17 AM06/10/2024 11:13 AM * Full Code Date ActivatedDate WynkgofekdbGzrtqlkd34/30/2024 2:22 PM04/25/2024 5:44 PM * Full Code Date ActivatedDate FtjlluwhvokWcqymipe31/20/2024 8:12 AM04/20/2024 2:05 PM NameRelationshipHealthcare Agent RelationshipCommunicationLinda MurrySpouse Primary Decision Maker* * Care Teams Team MemberRelationshipSpecialtyStart DateEnd Date Sherie Ramon APRN - DASHBOARD DEVELOPER [facility] - [facility]07/26/22
--- OUTSIDE RECORDS SUMMARY | 2025-03-24 08:09 | XMS_ITS | Patient Health Record ---
Author Organization [facility] in [place] Address [address] [place] [address] Care Team Providers Care Waterproof Bag Cutting Machine Operator Name Role Phone None, Unknown or Primary Care Provider Unavailab le Reason For Referral No Information Plan Of Treatment No Information Insurance Providers Payer Name Payer Address Payer Phone Subscriber Number Group Number Insured Name Patient Relationship to Insured Coverage Start Date Coverage End Date [facility] [address] [address] [place], [place] [phone] [id number], ERICSelf - patient is the insured
--- OUTSIDE RECORDS SUMMARY | 2025-03-24 08:09 | XMS_ITS | Clinical Summary ---
Author Organization [facility] Address [address] [place] [address] Care Team Providers Care Rolling Mill Operator Helper Name Role Phone Amilcar Yan MD Unavailable [phone] Laci Dominique MD Unavailable Allergies No known active allergies Medications MedicationSigDispense QuantityRefillsLast FilledStart DateEnd DateStatus atorvastatin (Lipitor) 20 mg tablet Take 20 mg by mouth in the morning.Active baclofen (Lioresal) 10 mg tablet TAKE 1 TABLET BY MOUTH THREE TIMES DAILY NEEDED for MUSCLE painActive buPROPion SR (Wellbutrin SR) 150 mg 12 hr tablet Take 150 mg by mouth in the morning and at bedtime.Active clopidogrel (Plavix) 75 mg tablet Take 75 mg by mouth in the morning.Active gabapentin (Neurontin) 600 mg tablet Take 1 tablet by mouth in the morning, afternoon, and at bedtime.12/24/2021 Active metoprolol succinate XL (Toprol-XL) 25 mg 24 hr tablet Take 25 mg by mouth in the morning.Active nicotine (Nicoderm CQ) 14 mg/[address] 1 patch on the skin.04/25/2024ctive pantoprazole (ProtoNix) 40 mg EC tablet Take 40 mg by mouth in the morning.Active rOPINIRole (Requip) 2 mg tablet Take 2 mg by mouth in the morning and at bedtime.Active cilostazol (Pletal) 100 mg tablet Take 100 mg by mouth two times daily.Active cholecalciferol (Vitamin D-3) 50 MCG (1999) tablet Take 2,000 Units by mouth.Active Active Problems ProblemNoted DateDiagnosed DateActinic uiaipinlb96/02/2025KI (acute kidney injury)10/21/20248350Qefuxjoedohpty75/02/2025Intermittent claudication of left lower extremity due to nvinyktnitwoqrj86/02/2025enign essential HTN10/21/2024MI 27.0-27.9,adult10/21/2024History of diverticular abscess of colon10/21/2024 History of reversal of apuvbjdif10/02/2751Lumiwsngxqwh48/02/2025Hypokalemia 10/21/2024Labile blood hbhqncsu67/02/2025Lumbar degenerative disc disease 10/21/2024Lumbar sdlechadpdlio26/02/2025Multiple rrjfhzf4110/21/2024Overweight 10/21/2024PAD (peripheral artery disease)10/21/2024Restless leg syndrome 10/21/2024S/P colon qjozczbji23/02/2025S/P hefhcunlgaf37/02/2025Sacroiliitis 10/21/2024Embolism of iliac btyrmo1510/21/2024Kidney nehzle7209/13/2024Ileostomy qlqdxktrkov50/20/3525Wnswaphhijd28/06/2024Oral udxnvjapljb15/05/2024rimary eiyvsqfrxkaz58/03/2024Ileostomy in place04/22/2024ost-op pain04/22/2024Impaired mobility and activities of daily zcmwrd0804/16/20241337Ufpgcbhvfwrp77/26/2024 Diverticulitis of sigmoid colon04/16/2024ry skin gpnpspokkf68/26/2024Multiple joint pain04/16/2024heumatoid vfiocpuby81/26/0071Hepzr18/25/2024Urinary pdbhmxdej99/25/2024Status post afuqsljrwjg39/22/2024Hemorrhagic shock04/11/2024 Perforation and abscess of large intestine concurrent with and due to rwffezywwbbtel82/01/2024Spondylosis of lumbar spine02/26/2024History of colonic waksjz2002/13/2024 Overview (10/21/2024): Problem List Diagnosis Replacement Utility 02/20/2024 Aneurysm of infrarenal abdominal aorta08/23/2022theroscler of [place] artery of both legs with intermit obgcptkzgeem00/04/2023ack pain, rcnzxlewsgr41/04/2023 Herniated lumbar intervertebral disc08/23/2022Thrombosis of arteries of lower vnhqbkvpu62/04/2023Thrombosis of iliac hsekoc1608/23/2022Mixed hyperlipidemia 03/17/20229142Xuweeils51/26/2022Peripheral vascular txciilx9512/28/2021moker 12/28/2021AA (abdominal aortic aneurysm) without yhsurrl5406/03/2021Thrombosis of both common femoral /07/2022Iliac artery stenosis, left05/28/2021 Atherosclerosis of [place] arteries of extremities with intermittent claudication, left leg03/16/2021dema of left lower leg due to peripheral venous womrssmywzryt69/26/2021hronic midline low back pain with bilateral sciatica 01/13/2021olonic diverticular afwtwpz0201/13/2021Tobacco use01/13/2021cute axcbahwetsuphj55/24/2021Ureteral doaarpuc69/27/2021Nicotine khjjdsyrqa72/09/2017 Overview (10/21/2024): Comment on above: Added secondary to documentation in Social History. Added secondary to documentation in Social History. Chest pain09/29/2014GERD (gastroesophageal reflux disease)09/29/2014 Social History Tobacco UseTypesPacks/DayYears UsedDateSmoking Tobacco: Some DaysCigarettes Smokeless Tobacco: Never Tobacco Cessation:Ready to Q uit: Not Asked; Counseling Given: Not Answered Alcohol UseStandard Drinks/WeekCommentsNever0 (1 standard drink = 0.6 oz pure alcohol)Humiliation, Afraid, Rape, and Kick questionnaireAnswerDate Recorded Within the last year, have you been afraid of your partner or ex-partner?Patient unable to xhfpkl1611/12/2024Emotionally AbusedNot on file11/12/2024Physically AbusedNot on file11/12/2024Sexually AbusedNot on file11/12/2024PHQ-2AnswerDate RecordedPatient Health Questionnaire-2 Cxuea340Sex and Gender InformationValueDate RecordedSex Assigned at BirthNot on fileLegal SexMale 09/13/2024 11:04 AM EDTGender IdentityNot on fileSexual OrientationNot on file Last Filed Vital Signs Vital SignReadingTime TakenCommentsBlood Vtpvovbi500/70011/12/2024 1:10 PM EDT Hxflh597311/12/2024 1:10 PM KTAFyixznucroz84.5 ??C (97.7 ??F)11/12/2024 1:10 PM EDTRespiratory Rate--Oxygen Saturation--Inhaled Oxygen Concentration--Wtjepd18.6 kg (180 lb)11/12/2024 1:10 PM AAOFkfjwi510.8 cm (5' 10 )11/12/2024 1:10 PM EDT Body Mass Index25.8311/12/2024 1:10 PM EDT Plan of Treatment Health MaintenanceDue DateLast DoneCommentsCT Gwaesyqeuvcw84/12/1960FIT-DNA 1960FIT1960FOBT1960Medicare Annual Wellness (AWV)1960 Medicare Initial Physical (IPPE)1960 1923Snattkvkneuul72/12/1960Zoster Vaccines (1 of 2)09/30/2009Meningococcal B Vaccine (2 of 5 - Increased Risk Bexsero 3- dose series)Meningococcal Vaccine (2 - Risk 2-dose series) neumococcal Vaccine: 50+ Years (2 of 2 - PPSV23, PCV20, or PCV21)4COVID-19 Vaccine (3 - season)2025 09/04/2020, 08/07/2020Influenza Vaccine (#1), 04/12/2024, 04/11/2019Depression Zwzefwymh20/24/59521411/12/2024Fall Risk Daegtbfpz68/24/2026 11/12/2024dult Nkuyqhh01/06/2021, 03/24/20173491Bdpzifrdhib66/20/2035 06/10/2024olorectal Cancer Echldclsq72/20/2035HIB WeiuunkaGtnkaqwml84/22/2024 HPV VaccinesAged OutNo longer eligible based on patient's age to complete this topicIPV VaccinesAged OutNo longer eligible based on patient's age to complete this topicRotavirus VaccinesAged OutNo longer eligible based on patient's age to complete this topic Insurance Care Teams Team MemberRelationshipSpecialty[place] [id number] [facility] [address] [place] [address] Referring PhysicianVascular Surgery10/21/24 Laci Dominique MD [address] [place] [address] [address] [place] [address] Referring PhysicianCardiology10/21/24 Sherie Ramon CNP Primary Care ProviderFami Medicine10/21/24
--- OUTSIDE RECORDS SUMMARY | 2025-03-24 08:10 | XMS_ITS | Clinical Summary ---
Author Organization [facility] Address [address] [facility] [place] [address] Care Team Providers Care Shearing Machine Operator Name Role Phone Unavailable Primary Care Provider Unavailabl e Allergies No known active allergies Social History Tobacco UseTypesPacks/DayYears UsedDateSmoking Tobacco: Never AssessedSex and Gender InformationValueDate RecordedSex Assigned at BirthNot on fileLegal Sex Male08/03/2022 6:38 PM EDTGender IdentityNot on fileSexual OrientationNot on file Plan of Treatment Health MaintenanceDue DateLast DoneCommentsCT Dmjatcglimqj03/12/1960FIT-DNA 1960FIT1960FOBT1960 2206Zllvfmtujkeax48/12/1960MMR Vaccines (1 of 1 - Standard series)1DTaP/Tdap/Td Vaccines (1 - Tdap)09/30/1966COVID-19 Vaccine (3 - season)/, 08/07/2020Influenza Vaccine (#1), 04/11/2019Pneumococcal Vaccine: 65+ Years (2 of 2 - PCV20 or PCV21)/6703Uqwpaumjupq37/20/03316206/10/2024, 06/10/2024 Colorectal Cancer Lywphoyav26/20/2035HIB VaccinesAged OutNo longer eligible based on patient's age to complete this topicHPV VaccinesAged OutNo longer eligible based on patient's age to complete this topicHepatitis A VaccinesAged OutNo longer eligible based on patient's age to complete this topicHepatitis B VaccinesAged OutNo longer eligible based on patient's age to complete this topic IPV VaccinesAged OutNo longer eligible based on patient's age to complete this topicMeningococcal B VaccineAged OutNo longer eligible based on patient's age to complete this topicMeningococcal VaccineAged OutNo longer eligible based on patient's age to complete this topicRotavirus VaccinesAged OutNo longer eligible based on patient's age to complete [place] [address]
--- OUTSIDE RECORDS SUMMARY | 2025-03-24 08:10 | XMS_ITS | Encounter Summary ---
Author Organization [facility] 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 Primary Care Provider + Encounter Details DateTypeDepartmentCare Team (Latest Contact Info)Olxurnqudon78/29/2025Orders Only [facility] [address] [place] [address] Mignon Mclean MD [address] [place] [address] Chronic hepatitis C without hepatic coma (HCC) Social History Tobacco UseTypesPacks/DayYears UsedDateSmoking Tobacco: Every FbxJbbpzwxnkc664.8 Started: 05/28/1970Passive Smoke Exposure: PastSmokeless Tobacco: Never Comments:Patient has slowed down Alcohol UseStandard Drinks/WeekCommentsNo0 (1 standard drink = 0.6 oz pure alcohol)[facility] UtilitiesAnswerDate RecordedIn the past 12 months has the electric, gas, oil, or water company threatened to shut off services in your home?No 04/20/2024HQ-2AnswerDate RecordedPHQ-9 Total Gdgqw38407/08/2023Hunger Vital Sign AnswerDate RecordedWithin the past 12 months, you worried that your food would run out before you got the money to buymore.Never true04/20/2024Within the past 12 months, the food you bought just didn't last and you didn't have money to get more.Never true11/30/2024PRAPARE - TransportationAnswerDate RecordedIn the past 12 months, [...] were you homeless or living in a halfway (including now)?No04/20/2024Food Insecurity AnswerDate RecordedWithin the past 12 months, you worried that your food would run out before you got the money to buymore.Within the past 12 months, the food you bought just didn't last and you didn't have money to get more.Interpersonal Safety Domain Source: IP Abuse ScreeningAnswerDate RecordedPhysical wzxmgPndfol03/10/2025Verbal fpzuqFlbmmt89/10/2025Emotional ozgarOjdgrx27/10/2025Financial laotfRgythl33/10/2025Sexual hvvujAbjlpq25/10/2025 Sex and Gender InformationValueDate RecordedSex Assigned at BirthNot on file Legal GjtBygw2708/11/2014 2:52 PM EDTGender IdentityNot on fileSexual Orientation Not on filedocumented as of this encounter Plan of Treatment DateTypeDepartmentCare Team (Latest Contact Info)Cyjjddhapwa59/04/2025 1:15 PM ESTOffice Visit [facility] [address] [place] [address] Laci Dominique MD [address] [place] [address] 6 month follow up08/11/2025 2:00 PM EDTOffice Visit [facility] [address] [place] [address] Horacio Perez MD [address] [place] [address] 09/25/2025 1:30 PM EDTOffice Visit [facility] [address] [facility] [address] [place] [address] Anders Santiago PA-C [address] [facility] [address] [place] [address] 1 yr KUBdocumented as of this encounter Procedures Procedure NamePriorityDate/TimeAssociated DiagnosisCommentsHEPATITIS C RNA, QUANTITATIVE, CBWWuzkdii00/29/2025 11:55 AM EDT Chronic hepatitis C without hepatic coma (HCC) OESRmmkqxa75/29/2025 11:55 AM EDT Chronic hepatitis C without hepatic coma (HCC) COMPREHENSIVE METABOLIC GNKHRAyqamgg36/29/2025 11:55 AM EDT Chronic hepatitis C without hepatic coma (HCC) documented in this encounter Results * Hepatitis C RNA, quantitative, PCR (03/19/2025 11:55 AM EDT)ComponentValueRef RangeTest MethodAnalysis TimePerformed AtPathologist SignatureHCV QNT by NAAT IU/MLNot DetectedIU/mL03/21/2025 5:19 PM EDTARUP LABORATORYHCV Qnt by NAAT log IU/mlNot Detectedlog IU/mL03/21/2025 5:19 PM EDTARUP LABORATORYInterpretation Not DetectedNot Incckiag88/31/2025 5:19 PM EDTARUP LABORATORYComment: INTERPRETIVE INFORMATION: HCV [...] and cellular tissue-based products (HCT/P). Performed By: [facility] [address] [place] [address] Coating Inspector: Chriss Agudelo MD, PhD CLIA Number: [id number] Specimen (Source)Anatomical Location / LateralityCollection Method / Volume Collection TimeReceived TimeBloodBLOOD SPECIMEN / Csutkwr1103/19/2025 11:55 AM EDT 03/19/2025 12:54 PM EDT Narrative Authorizing ProviderResult TypeResult StatusMignon Mclean MDIMMUNOLOGY ORDERABLESFinal ResultPerforming OrganizationAddressCity/State/ZIP CodePhone Number [facility] [address] [place] [address] [phone] [facility] [address] [place], [place] [address] [phone] * (ABNORMAL) CBC (03/19/2025 11:55 AM EDT)ComponentValueRef RangeTest Method Analysis TimePerformed AtPathologist SignatureWBC8.74.8 - 10.8 K/uL03/19/2025 12:[address] [facility] LABRBC4.974.70 - 6.10 M/uL03/19/2025 12:[address] [facility] ZNJOnaxmxiwud22.714.0 - 18.0 g/dL 03/19/2025 12:[address] [facility] BAVBpnsllaopy05.342.0 - 52.0 %03/19/2025 12:[address] [facility] GOHMIR37.2(H)79.0 - 92.2 fL03/19/2025 12:[address] [facility] KPHDQR14.6(H)27.0 - 31.3 pg03/19/2025 12:[address] [facility] SQRTVVD08.5(L)33.0 - 37.0 %03/19/2025 12:[address] [facility] JSPTSG28.0(H)11.5 - 14.5 %03/19/2025 12:[address] [facility] AZCEhasdszbd534419 - 400 K/uL03/19/2025 12:[address] [facility] LABSpecimen (Source)Anatomical Location / LateralityCollection Method / VolumeCollection TimeReceived TimeBloodBLOOD SPECIMEN / Vevmhpb1803/19/2025 11:55 AM EDT 03/19/2025 12:44 PM EDT Narrative Authorizing ProviderResult TypeResult StatusHicmadelyn Mclean MDHEMATOLOGY ORDERABLESFinal ResultPerforming OrganizationAddressCity/State/ZIP CodePhone Number [facility] [address] [place] [address], [facility] [phone] * (ABNORMAL) Comprehensive Metabolic Panel (03/19/2025 11:55 AM EDT)Component ValueRef RangeTest MethodAnalysis TimePerformed AtPathologist SignatureSodium 346704 - 144 mEq/L1 12:[address] [facility] Potassium4.63.4 - 4.9 mEq/L1 12:[address] [facility] GCWEitmlfsf42540 - 107 mEq/L1 12:[address] [facility] XOBIO92117 - 31 mEq/L1 12:[address] [facility] LABAnion Uvi949 - 15 mEq/L1 12:[address] [facility] ZKITmawhtx7635 - 99 mg/dL03/19/2025 12:[address] [facility] TOKHMZ509 - 23 mg/dL03/19/2025 12:[address] [facility] LABCreatinine1.100.70 - 1.20 mg/dL03/19/2025 12:[address] [facility] LABEst, Glom Filt Rate74.3>6003/19/2025 12:[address] [facility] LABComment: Pediatric calculator link https://www.kidney.org/professionals/kdoqi/gfr_calculatorped Effective Feb [...] following therapy that affects renal tubular secretion. Ljhuhxd43.0(H)8.5 - 9.9 mg/dL03/19/2025 12:[address] [facility] LABTotal Protein7.46.3 - 8.0 g/dL03/19/2025 12:[address] [facility] LABAlbumin4.33.5 - 4.6 g/dL03/19/2025 12:[address] [facility] LABTotal Bilirubin0.30.2 - 0.7 mg/dL03/19/2025 12:[address] [facility] LABAlkaline Sjpfztmolzq152(H)35 - 104 U/L1 12:52 PM T [facility] OBYAGL928 - 41 U/L1 12:[address] [facility] RNCSNH086 - 40 U/L1 12:[address] [facility] LABGlobulin3.12.3 - 3.5 g/dL03/19/2025 12:[address] [facility] LABSpecimen (Source)Anatomical Location / LateralityCollection Method / VolumeCollection TimeReceived TimeBloodBLOOD SPECIMEN / Unknown 03/19/2025 11:55 AM EDT1 12:43 PM EDT Narrative Authorizing ProviderResult TypeResult StatusHicham Taniaallafadalgisa MDCHEMISTRY ORDERABLESFinal ResultPerforming OrganizationAddressCity/State/ZIP CodePhone Number [facility] [address] [place] [address], [facility] [phone] documented in this encounter Visit Diagnoses Diagnosis Chronic hepatitis C without hepatic coma (HCC) documented in this encounter Care Teams Team MemberRelationshipSpecialtyStart DateEnd Date Sherie Ramon, BERNARD - ROBERT PCP - General07/26/22documented as of this encounter
--- OUTSIDE RECORDS SUMMARY | 2025-03-24 08:18 | XMS_ITS | CCD ---
Author Organization [facility] ion Partnership [facility] Care Team Providers Care Dairy Worker Name Role Phone IFTIKHAR FREY Unavailable Unavailable NILL, IFTIKHAR Unavailable Unavailable MISC, DOCTOR Unavailable Unavailable PARKER FRANKLNI Unavailable Unavailable NILHeavenly, IFTIKHAR Unavailable Unavailable JESSICA GOLDBERG Unavailable Unavailable ARAVIND BURNETT Unavailable Unavailable SABINE BRAMBILA Unavailable Unavailable Leonel Taveras Primary Care Provider LEONEL TAVERAS Primary Care Unavailable ANKITA YIP Admitting Unavailable ANKITA YIP Attending Unavailable ANKITA YIP Attending Unavailable VIVIAN PETIT Primary Care Unavailable ANKITA YIP Admitting Unavailable Vivian Petit Primary Care Provider [phone] Leonel Taveras Primary Care Provider SHANEL FRITZ Referring Unavailable LEONEL TAVERAS Primary Care Unavailable YASMEEN TRAN Consulting Unavailable GEOFFREY RICHARDS Admitting Unavailable GEOFFREY RICHARDS Attending Unavailable Unavailable Primary Care Provider Unavailabl e Magalie Malagon APRN, CNP Primary Care Pro vider Magalie HENNING Primary Care Physician [phone] Magalie HENNING Primary Care Physician [phone] Henry FREITAS Primary Care Physician [phone] Magalie Malagon APRN, CNP Primary Care Pro vider Henry Freitas MD Primary Care Provider Sherie Ramon Primary Care Physician [phone] Sherie Rogers APRN, CNP Primary Care Provider Unavailable Primary Care Provider Unavailabl e Tristen APPLICATION ADMINISTRATOR - PROCUREMENT BUYER, Sherie Primary Care Provider Sherie Ramon Primary Care Physician [phone] Tristen APPLICATION ADMINISTRATOR - PROCUREMENT BUYER, Sherie Primary Care Provider Tristen APPLICATION ADMINISTRATOR - PROCUREMENT BUYER, Sherie Primary Care Provider Unavailable Primary Care Provider Unavailabl e Tristen APPLICATION ADMINISTRATOR - PROCUREMENT BUYER, Sherie Primary Care Provider Unavailable Primary Care Provider Unavailabl e HENRY PHILLIPS Attending Unavailable BILLIE, MOLLY Referring Unavailable ABBUD, VERONICA A Referring Unavailable TRISTEN, SHERIE Primary Care Unavailable TRISTEN, SHERIE Primary Care Unavailable ABBUD, VERONICA A Referring Unavailable TRISETN, SHERIE Primary Care Unavailable ABBUD, VERONICA A Referring Unavailable DORKOSKIE, MARCO D Referring Unavailable TRISTEN, SHERIE Primary Care Unavailable TRISTEN, SHERIE Primary Care Unavailable ABBUD, VERONICA A Referring Unavailable TRISTEN, SHERIE Primary Care Unavailable ABBUD, VERONICA A Referring Unavailable TRISTEN, SHERIE Primary Care Unavailable ABBUD, VERONICA A Referring Unavailable TRISTEN, SHERIE Primary Care Unavailable ABBUD, VERONICA A Referring Unavailable TRISTEN, SHERIE Primary Care Unavailable ABBUD, VERONICA A Referring Unavailable ABBUD, VERONICA A Referring Unavailable TRISTEN, SHERIE Primary Care Unavailable ABBUD, VERONICA A Referring Unavailable TRISTEN, SHERIE Primary Care Unavailable DORKOSKIE, MARCO D Referring Unavailable TRISTEN, SHERIE Primary Care Unavailable ABBUD, VERONICA A Referring Unavailable TRISTEN, SHERIE Primary Care Unavailable MICHELLE, DAYAN Referring Unavailable MICHELLE, DAYAN Attending Unavailable MICHELLE, DAYAN Attending Unavailable MICHELLE, DAYAN Referring Unavailable MICHELLE, DYAAN Referring Unavailable MICHELLE, DAYAN Referring Unavailable MICHELLE, DAYAN Referring Unavailable MICHELLE, DAYAN Referring Unavailable MICHELLE, DAYAN Referring Unavailable MICHELLE, DAYAN T Admitting Unavailable MICHELLE, DAYAN T Attending Unavailable MICHELLE, DAYAN T Referring Unavailable Jillian Aranda Attending Unavailable Tristen, Sherie L. Referring Unavailable Tristen, Sherie L. Admitting Unavailable Tristen, Sherie L. Admitting Unavailable Tristen, Sherie L. Admitting Unavailable Bordner, Mirian C Attending Unavailable Tristen, Sherie L. Attending Unavailable Tristen, Sherie L. Attending Unavailable Tristen, Sherie L. Attending Unavailable Tristen, Sherie L. Attending Unavailable Tristen, Sherie L. Attending Unavailable Cresencio Andrade Attending Unavailable Cresencio Andrade Referring Unavailable Gijacyitis , Erum Jones Attending Unavailable Giedraitis , Erum Jones Attending Unavailable Giedraitis , Erum Jones Attending Unavailable Giedraitis , Andselma Jones Attending Unavailable Tristen, MSN, APPLICATION ADMINISTRATOR-PROCUREMENT BUYER Sherie L. Attending U navailable Tristen, MSN, APPLICATION ADMINISTRATOR-PROCUREMENT BUYER Sherie L. Admitting U navailable Tristen, MSN, APPLICATION ADMINISTRATOR-PROCUREMENT BUYER Sherie L. Attending U navailable Tristen, MSN, APPLICATION ADMINISTRATOR-PROCUREMENT BUYER Sherie L. Admitting U navailable Tristen, Sherie L. Attending Unavailable MICHELLE, DAYAN T Attending Unavailable MICHELLE, DAYAN T Referring Unavailable MICHELLE, DAYAN T Admitting Unavailable Tristen, Sherie L. Admitting Unavailable Tristen, Sherie L. Attending Unavailable TRISTEN, SHERIE Primary Care Unavailable RENEEAFSigrid, HICHAM Referring Unavailable TRISTEN, SHERIE Primary Care Unavailable KHALLAFI, HICHAM Referring Unavailable TRISTEN, SHERIE Primary Care Unavailable O'LEONEL, BELTRAN P Referring Unavailable CHO I, ANDRADE Referring Unavailable CHO I, ANDRADE Attending Unavailable TRISTEN, SHERIE Primary Care Unavailable TRISTEN, SHERIE Primary Care Unavailable O'LEONEL, BELTRAN P Attending Unavailable O'LEONEL, BELTRAN P Admitting Unavailable TRISTEN, SHERIE Primary Care Unavailable O'LEONEL, BELTRAN P Admitting Unavailable O'LEONEL, BELTRAN P Attending Unavailable TRISTEN, SHERIE Primary Care Unavailable O'LEONEL, BELTRAN P Admitting Unavailable O'LEONEL, BELTRAN P Attending Unavailable TRISTEN, SHERIE Primary Care Unavailable CHRIS DYER Consulting Unavailable O'LEONEL, BELTRAN P Admitting Unavailable O'LEONEL, BELTRAN P Referring Unavailable O'LEONEL, BELTRAN P Attending Unavailable CHO I, ANDRADE Consulting Unavailable JULIANA PARRA Consulting Unavailable JESSICA PERDUE Consulting Unavailable HENRY ALVARADO Consulting Unavailable VERA GOLDBERG Consulting Unavailable SCDAMARISINBÁRBARA Consulting Unavailable PRANEETH AC Consulting Unavailable TRISTEN, SHERIE Primary Care Unavailable BÁRBARA DONG Attending Unavailable CAROLANNINBÁRBARA Consulting Unavailable BÁRBARA ODNG Admitting Unavailable LANCE NORWOOD Consulting Unavailable VERONICA MARISCAL Consulting Unavailable HENRY ALVARADO Consulting Unavailable SHANEL ESPINOZA Consulting Unavailable VALE SHIN Consulting Unavailable TRISTEN, SHERIE Referring Unavailable TRISTEN, SHERIE Primary Care Unavailable KEITH KING Referring Unavailable TRISTEN, SHERIE Primary Care Unavailable TristenIsaiasmy LShaun Attending Unavailable Sherie Ramon Attending Unavailable Henry FREITAS Admitting Unavailable Henyr FREITAS Attending Unavailable Henry FREITAS Attending Unavailable Henry FREITAS Admitting Unavailable Allergies Allergy ClassificationReported Allergen(s)Allergy TypeDate of OnsetReaction(s) Facility (1 source)ALLERGIES NOT ON FILE; Translations: [ALLERGIES NOT ON FILE]Propensity to adverse reactions (disorder)[facility] Repository (4 sources)No Known Medication Allergies; Translations: [No Known Medication Allergies]Propensity to adverse reactions (disorder)[facility] [place] Rep[facility] Medications Current Medications MedicationDrug Class(es)DatesSig (Normalized)Sig (Original)acetaminophen 325 mg / oxyCODONE hydrochloride 5 mg oral tablet (14 sources)Opioid AgonistStart: 07-03-2024 End: 62-32-1528mrjWGFYRO-acetaminophen (PERCOCET) 5-325 MG per tablet Indications: Ileostomy dysfunction (HCC) Take 1 tablet by mouth every 6 hours as needed for Pain for up to 3 days. 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 Max Daily Amount: 6 tablets 30 tablet 04/24/2024 05/01/2024 ActiveStart: 04-20-2024 oxyCODONE-acetaminophen (PERCOCET) 5-325 MG per tablet 1 tabletStart: 06-04-2020 End: 19-57-5373qmfy 1 tablet by mouth every six hours as needed for pain, then take 1 tablet by mouth as needed for painoxyCODONE-acetaminophen (PERCOCET) 5- 325 MG per tablet Indications: Left renal stone Take 1 tablet by mouth every 6 hours as needed for Pain for up to 3 days. Intended supply: 3 days. Take lowest dose possible to manage pain 12 tablet 0 06/04/2020 06/07/2020 Expiredalbuterol 0.833 mg/ml / ipratropium bromide 0.167 mg/ml inhalation solution (7 sources)Anticholinergic, beta2-Adrenergic AgonistStart: 06-10-2024 End: 45-67-2347hkur 1 dose by inhalation once as needed1 Dose, Inhalation, ONCE PRN, 1 dose, Starting on Mon06/10/24 at 0757, Until Mon06/11/24 at 0757, Sh ortness of Breath, Initiate RT Bronchodilator Protocol: No, PACU onlyStart: 60-02-3221Glnag: 04-12-2024 End: 54-04-4082Ajsna: 05-18-2022 End: 27-79-2152xcusvqyzvpx-albuterol (DUONEB) nebulizer solution 1 ampule amoxicillin 875 mg / clavulanate 125 mg oral tablet (2 sources)Penicillin-class AntibacterialStart: 01-15-2021 End: 92-80-3811yqqi 1 tablet by mouth every twelve hoursamoxicillin-clavulanate (AUGMENTIN) 875-125 MG per tablet Take 1 tablet by mouth every 12 hours for10 days 20 tablet 0 01/15/2021 01/25/2021 ActiveStart: 16-95-3477nqupmzchkzs- clavulanate (AUGMENTIN) 875-125 MG per tablet 1 tabletatorvastatin 20 mg oral tablet (20 sources)HMG-CoA Reductase InhibitorStart: 83-92-0113nepz 1 tablet by mouth once dailyatorvastatin 20 mg Tab 20 mg = 1 tab(s), Oral, Daily, # 90 tab(s), Refills(s) 4, Pharmacy: [facility], 176, cm, 07/30/24 8:06:00 EDT, Height/Length Dosing, 84.5, kg, 07/30/24 8:06:00 EDT, Weight Dosing Start Date: 09/03/24 Status: Ordered Quantity: 90.0 Unit: tab(s) Repeat number: 5Start: 04-05-2021 End: 70-35-7966hihb 1 tablet by mouth once dailyatorvastatin 20 mg Tab 20 mg = 1 tab(s), Oral, Daily, # 30 tab(s), Refills(s) 0 Start Date: 01/14/22Status: OrderedComment on above:Take 20 mg by mouth once daily.baclofen 10 mg oral tablet (20 sources)gamma-Aminobutyric Acid-ergic AgonistStart: 94-05-2298xrfn 1 tablet by mouth three times daily as needed for painbaclofen 10 mg Tab 10 mg = 1 tab(s), Oral, TID, PRN Muscle pain, # 90 tab(s), Refills(s) 0, Pharmacy: [facility], 176, cm, 01/13/25 8:21:00 EDT, Height/Length Dosing, 82, kg, 258:21:00 EDT, Weight Dosing Start Date: 01/29/25 Status: Ordered Quantity: 90.0 Unit: tab(s) Repeat number: 1Start: 22-76-5801cvqp 1 tablet by mouth three times daily as needed for painbaclofen 10 mg Tab 10 mg = 1 tab(s), Oral, TID, PRN Muscle pain, # 90 tab(s), Refills(s) 0, Pharmacy: [facility], 176, cm, 12/02/24 8:25:00 EDT, Height/Length Dosing, 83.6, kg, 12/02/24 8:25:00 EDT, Weight Dosing Start Date: 12/11/24 Status: Ordered Quantity: 90.0 Unit: tab(s) Repeatnumber: 1Start: 02-08-9572vzek 1 tablet by mouth three times daily as needed for painbaclofen 10 mg Tab 10 mg = 1 tab(s), Oral, TID, PRN Muscle pain, # 90 tab(s), Refills(s) 0, Pharmacy: [facility], 176, cm, 07/30/24 8:06:00 EDT, Height/Length Dosing, 84.5, kg, 07/30/24 8:06:00 EDT, Weight Dosing Start Date: 10/21/24 Status: Ordered Quantity: 90.0 Unit: tab(s) Repeat number: 1Start: 57-47-4859mntelthk 10 mg tablet baclofen 10 mg tablet Start Date: 04/30/24 Status: Ordered Repeat number: 1 Start: 17-58-2535ekccqftx 10 mg tablet baclofen 10 mg tablet Start Date: 04/30/24 Status: OrderedStart: 01-28-2021 End: 49-57-8482ptir 1 tablet by mouth three times daily as needed for pain baclofen (LIORESAL) 10 MG tablet TAKE 1 TABLET BY MOUTH THREE TIMES DAILY NEEDED for muscle pain01/28/2021 ActiveComment on above:Take 1 tablet by mouth three times daily.brava protective seal - # 00620 (1 source)Start: 16-76-1129ouesa protective seal - # 09760 brava protective seal - # 95982, See Instructions, 30 EA, 5, use with colostomy, change daily, Supply Start Date: 05/29/24 Status: Qyfqehh03 hr buPROPion hydrochloride 150 mg extended release oral tablet (20 sources)AminoketoneStart: 02-07-2023 End: 51-97-5764zbdy 1 tablet by mouth twice dailybuPROPion 150 mg ER Tab 150 mg = 1 tab(s), Oral, BID, # 60 tab(s), Refills(s) 11, Pharmacy: [facility], 172, cm, 02/28/24 14:27:00 EDT, Height/Length Dosing, 79.1, kg, 02/28/24 14:27:00 EDT, Weight Dosing Start Date: 04/02/24 Status: Ordered Quantity: 60.0 Unit: tab(s) Repeat number: 12calcium carbonate 500 mg chewable tablet (2 sources)Start: 58-06-6822Pmcub: 81-40-8644uksaeuqjtm 500 mg oral capsule (4 sources)Cephalosporin AntibacterialStart: 40-01-5075ktnn 1 capsule by mouth every eight hourscephalexin 500 mg Cap 500 mg = 1 cap(s), Oral, q8hr, # 30 cap(s), Refills(s) 0, Pharmacy: [facility], 178, cm, 03/17/22 8:30:00 EDT, Height/Length Dosing, 77.1, kg, 03/17/22 8:30:00 EDT, Weight Dosing Start Date: 03/17/22 Status: Orderedcholecalciferol 0.05 mg oral tablet (16 sources)Vitamin DStart: 19-55-0763mqrv 1 tablet by mouth once dailyVitamin D (CHOLECALCIFEROL) 50 MCG (2000 UT) TABS tablet Take 1 tablet by mouth Daily with supper 60 tablet 4 04/24/2024 ActiveStart: 42,000 Units, Oral, DAILY WITH DINNER, First dose on Mon04/22/24 at 1730, Until Discontinued, Labeling may look different. 25 qrv=4879 Units. Please double check dosages.cilostazol 100 mg oral tablet (20 sources)Phosphodiesterase 3 InhibitorStart: 78-80-5693xxzr 1 tablet by mouth twice dailycilostazol 100 mg Tab See Instructions, TAKE 1 TABLET BY MOUTH TWICE DAILY, # 90 tab(s), Refills(s)3, Pharmacy: [facility], 176, cm, 01/13/25 8:21:00 EDT, Height/Length Dosing, 82, kg, 01/13/25 8:21:00 EDT, Weight Dosing Start Date: 02/26/25 Status: Ordered Quantity: 90.0 Unit: tab(s) Repeat number: 1Start: 80-91-7470andydsxdwm 100 mg Tab See Instructions, Take one tablet twice a day, # 90 EA, Refills(s) 3, Pharmacy: [facility], 176, cm, 07/30/24 8:06:00 EDT, Height/Length Dosing, 84.5, kg, 07/30/24 8:06:00 EDT, Weight Dosing Start Date: 07/30/24 Status: Ordered Quantity: 90.0 Unit: EA Repeat number: 4Start: 07-23-2021 End: 21-83-0928hyxx 1 tablet by mouth twice dailycilostazol (PLETAL) 100 mg tablet Take 100 mg by mouth twice daily. 10/16/2022 ActiveComment on above:Take 100 mg by mouth twice daily.clopidogrel 75 mg oral tablet (20 sources)P2Y12 Platelet InhibitorStart: 25-22-6610mskj 1 tablet by mouth once dailyPlavix 75 mg Tab 75 mg = 1 tab(s), Oral, Daily, # 90 tab(s), Refills(s) 4, Pharmacy: [facility] #[facility], 176, cm, 07/30/24 8:06:00 EDT, Height/Length Dosing, 84.5, kg, 07/30/24 8:06:00 EDT, Weight Dosing Start Date: 10/21/24 Status: Ordered Quantity: 90.0 Unit: tab(s) Repeat number: 5Start: 08-77-8851opsg 1 tablet by mouth once dailyclopidogrel (PLAVIX) 75 MG tablet TAKE 1 TABLET BY MOUTH EVERY DAY 90 tablet 3 02/04/2024 ActiveStart: 08-09-2021 End: 26-96-9475twth 1 tablet by mouth once dailyclopidogrel (PLAVIX) 75 MG tablet TAKE 1 TABLET BY MOUTH EVERY DAY 90 tablet 3 02/04/2024 ActiveComment on above:Take 75 mg by mouth once daily.diatrizoate meglumine-sodium (GASTROGRAFIN) 66-10 % solution 30 mL (1 source)Start: 90-69-6590yfqiebldcda meglumine-sodium (GASTROGRAFIN) 66-10 % solution 30 mLertapenem (INVANZ) infusion (9 sources)Start: 04-25-2024 End: 31-87-7329cfblvhqby (INVANZ) infusion Infuse 1,000 mg intravenously every 24 hours for 10 days CBC BMP in 1 week CRP in 1 week Fax results to [phone] 10 g 04/25/2024 05/05/2024 Activefamotidine 40 mg oral tablet (18 sources)Histamine-2 Receptor AntagonistStart: 80-18-0143zsav 1 tablet by mouth once daily at bedtimefamotidine (PEPCID) 40 MG tablet TAKE 1 TABLET BY MOUTH DAILY AT BEDTIME 0 09/28/2021 ActiveStart: 60-08-9994knta 1 tablet by mouth once daily at bedtimefamotidine 40 mg Tab 40 mg = 1 tab(s), Oral, Once a day (at bedtime), # 30 tab(s), Refills(s) 1, Pharmacy: [facility], 175, cm, 06/08/21 13:40:00 EST, Height/Length Dosing, 74.5, kg, 06/08/21 13:40:00 EST, Weight Dosing Start Date: 06/08/21 Status: OrderedStart: 01-12-2021 End: 39-38-5151dhgybkuade (PEPCID) injection 20 mgferrous sulfate 325 mg oral tablet (1 source)Start: 12-03-2024 End: 70-62-9403yqbi 1 tablet by mouth once dailyferrous sulfate 325 mg Tab 325 mg = 1 tab(s), Oral, Daily, X 90 day(s), # 90 tab(s), Refills(s) 0, Pharmacy: [facility], 176, cm, 12/02/24 8:25:00 EDT, Height/Length Dosing, 83.6, kg,12/02/24 8:25:00 EDT, Weight Dosing Start Date: 12/03/24 Stop Date: 03/03/25 Status: Ordered Quantity: 90.0 Unit: tab(s) Repeat number: 1 Indications: Iron deficiency anemia, unspecified;fluconazole 200 mg oral tablet (9 sources)Azole AntifungalStart: 04-25-2024 End: 73-80-8635jdyl 1 tablet by mouth once dailyfluconazole (DIFLUCAN) 200 MG tablet Take 1 tablet by mouth daily for 10 days 10 tablet 04/25/2024 05/05/2024 Activefluticasone propionate 0.05 mg/actuat metered dose nasal spray (2 sources)CorticosteroidStart: 48-57-0477smtqaunvkf 800 mg oral tablet (20 sources)Anti-epileptic AgentStart: 16-20-4218csgy 1 tablet by mouth three times dailygabapentin 800 mg Tab See Instructions, TAKE 1 TABLET BY MOUTH THREE TIMES DAILY, # 90 tab(s), Refills(s) 2, Pharmacy: [facility], 176, cm, 01/13/25 8:21:00 EDT, Height/Length Dosing,82, kg, 01/13/25 8:21:00 EDT, Weight Dosing Start Date: 01/29/25 Status: Ordered Quantity: 90.0 Unit: tab(s) Repeat number: 1Start: 49-93-7932qgkd 1 tablet by mouth three times daily gabapentin 800 mg Tab See Instructions, TAKE 1 TABLET BY MOUTH THREE TIMES DAILY, # 90 tab(s), Refills(s) 0, Pharmacy: [facility], 176, cm, 12/02/24 8:25:00 EDT, Height/Length Dosing,83.6, kg, 12/02/24 8:25:00 EDT, Weight Dosing Start Date: 12/11/24 Status: Ordered Quantity: 90.0 Unit: tab(s) Repeat number: 1Start: 20-35-3510bkop 1 tablet by mouth three times daily gabapentin 800 mg Tab 800 mg = 1 tab(s), Oral, TID, # 90 tab(s), Refills(s) 0, Pharmacy: [facility], 176, cm, 07/30/24 8:06:00 EDT, Height/Length Dosing, 84.5, kg, 07/30/24 8:06:00 EDT, Weight Dosing Start Date: 10/21/24 Status: Ordered Quantity: 90.0 Unit: tab(s) Repeat number: 1Start: 12-15-5929wipk 600 mg by mouth three times mg, Oral, 3 TIMES DAILY, First dose on 07/01/24 at 1415, Until DiscontinuedStart: 66-23-9938upsx 600 mg by mouth three times hrxoy117 mg, Oral, 3 TIMES DAILY, First dose (after last reorder) on 04/20/24 at 1445, Until DiscontinuedStart: 57-69-5803iumn 1 tablet by mouth three times dailygabapentin 800 mg Tab 800 mg = 1 tab(s), Oral, TID, # 90 tab(s), Refills(s) 0, Pharmacy: [facility], 176, cm, 02/02/24 8:14:00 EDT, Height/Length Dosing, 77.8, kg, 02/02/24 8:14:00 EDT, Weight Dosing Start Date: 02/12/24 Status: OrderedStart: 12-24-2021 End: 50-88-0438fttf 1 tablet by mouth three times dailygabapentin (NEURONTIN) 600 MG tablet TAKE 1 TABLET BY MOUTH THREE TIMES DAILY 12/24/2021 ActiveStart: 12-24-2021 End: 27-90-7337lmdrgytewv 600 mg Tab 900 mg = 1.5 tab(s), Oral, TID, X 30 day(s), # 135 tab(s), Refills(s) 0, Pharmacy: [facility] #[id number], 178, cm, 06/10/22 13:55:00 EST, Height/Length Dosing, 73, kg, 06/10/22 13:55:00 EST, Weight Dosing Start Date: 06/10/22 Stop Date: 07/10/22 Status: OrderedStart: 08-27-2021 End: 10-55-8028wwqw 1 tablet by mouth three times dailygabapentin 600 mg Tab 600 mg = 1 tab(s), Oral, TID, X 90 day(s), # 270 tab(s), Refills(s) 0, Pharmacy: [facility], 178, cm, 08/27/21 10:52:00 EDT, Height/Length Dosing, 76.4, kg, 08/21/21 14:18:00 EDT, Weight Dosing Start Date: 08/27/21 Stop Date: 11/25/21 Status: OrderedStart: 39-28-7106knkr 2 capsules by mouth three times dailygabapentin (NEURONTIN) 300 MG capsule TAKE 2 CAPSULES BY MOUTH THREE TIMES DAILY 0 01/21/2021 Activetake 900 mg by mouth three times dailyGABAPENTIN PO Take 900 mg by mouth 3 times daily 0 Suspendedtake 900 mg by mouth three times dailyGABAPENTIN PO Take 900 mg by mouth 3 times daily 0 ActiveGABAPENTIN PO Take by mouth daily 0 SuspendedGABAPENTIN PO Take by mouth daily 0 Active Comment on above:Take 600 mg by mouth three times daily.glucagon (rdna) 1 mg injection (4 sources)Antihypoglycemic AgentStart: mg, SubCUTAneous, PRN, Starting on Mon06/10/24 at 0757, Until Discontinued, Low blood sugar, Blood glucose LESS THAN 70 mg/dL and patient NOT ALERT or NPO and does not have IV access., After administration, attempt intravenous access and start dextrose 10% at 100 mL/hr. Repeat blood glucose in 15minutes x 2 and notify provider. Reconstitute powder for injection by adding 1 mL of metal polisher and buffer apprentice-supplied sterile diluent or sterile water for injection to a vial containing 1 mg of the drug, to provide solutions containing 1 mg/mL. Shake vial gently to dissolve., PACU onlyStart: 24-06-2356Adkhz: 07-94-6181Jvgkp: 06-06-0139lcgqfmzv injection 1 mgGlucose (10 sources)Start: 35-46-1739CjofePGMvvy, at 100 mL/hr, CONTINUOUS PRN, if blood glucose remains LESS THAN 70 mg/dL after 2 dextrose 10% intravenous boluses or administration of glucagon, Starting on Mon06/10/24 at 0757, If blood glucose fails to stabilize after 2 dextrose 10% intravenous boluses or glucagon administration, start dextrose 10% infusion at 100 mL/hour and repeat blood glucose at 30 and 60 minutes. If blood glucose is GREATER THAN 70 mg/dL after 60 minutes, discontinue dextrose 10% infusion., PACU onlyStart: 21-66-6870imuztliu bolus 10% 125 mLStart: 68-35-147987 g (4 tablet), Oral, PRN, Starting on Mon06/10/24 at 0757, Until Discontinued, Low blood sugar, If blood glucose is LESS THAN 70 mg/dL and patient is alert and tolerating oral. Give 4 tablets (16g) Repeat blood glucose in 15 minutes. If blood glucose is LESS THAN 70 mg/dL, repeat treatment and recheck blood glucose in 15 minutes x 2. If blood glucose remains LESS THAN 70 mg/dL, notify provider., PACU onlyStart: 20-49-1427Cvgkn: 43-58-3701wiifxwuh bolus 10% 125 mLStart: 92-68-1933Bbmpo: 92-23-4339Uggzq: 18-44-7217uzgivbhr 10 % infusionStart: 40-72-7801chkktoiy bolus 10% 125 mLStart: 79-03-1985vcuybcj chewable tablet 16 ghandicap placard (4 sources)Start: 25-93-5078mmagdajp placard handicap placard, See Instructions, 1 EA, 0, used to access handicap parking places, limited 5 years, exp: 09/18/2029, Supply Start Date: 09/18/24 Status: Ordered Quantity: 1.0 Unit: EA Repeat number: 1 Indications: Atherosclerosis of [place] arteries of extremities with intermittent claudication, left leg;HYDROmorphone (DILAUDID) injection 0.5 mg (1 source)Start: 00-55-1594DENLWccgwymdw (DILAUDID) injection 0.5 mgibuprofen 800 mg oral tablet (2 sources)Nonsteroidal Anti-inflammatory DrugStart: 82-37-5959arzteflyf (ADVIL;MOTRIN) tablet 800 mg End: 94-24-4823qjub 1 tablet by mouth every six hours as needed for pain ibuprofen (ADVIL;MOTRIN) 200 MG tablet Take 200 mg by mouth every 6 hours as needed for Pain. 0 06/04/2020 Discontinued (LIST CLEANUP)1 ml ketorolac tromethamine 30 mg/ml cartridge (3 sources)Nonsteroidal Anti-inflammatory Drug, Cyclooxygenase InhibitorStart: 07-01-2024 End: 19-08-919564 mg, IntraVENous, EVERY 6 HOURS PRN, Starting on 07/01/24 at 1358, Until 07/06/24 at 1357, Pain Moderate (4-6), Do not administer for more than 5 days.Start: 04-10-2024 End: 80-63-7136Lbqqd: 06-04-2020 End: 60-11-4791nnrkwruww (TORADOL) injection 30 mglabetalol (NORMODYNE;TRANDATE) injection 10 mg (2 sources)Start: 23-68-7977esvhjevjm (NORMODYNE;TRANDATE) injection 10 mgStart: 67-81-7040vosokndkv (NORMODYNE;TRANDATE) injection 10 mglidocaine 0.04 mg/mg medicated patch (4 sources)Antiarrhythmic, Amide Local AnestheticStart: patch, TransDERmal, Administer over 24 Hours, DAILY, First dose on Mon04/22/24 at 0915, Substituted for Lidocaine 5% Patch.Start: 04-16-2024 End: 42-67-4676Kybyu: 05-39-6522xpdkegozi 4% topical film 1 patch(es), Topical, Daily, 7 film, Refill(s) 0, 12 hours on 12 hours off PRN, [facility] #[id number], 178, cm, 06/10/22 13:55:00 EST, Height/Length Dosing, 73, kg, 06/10/22 13:55:00 EST, Weight Dosing Start Date: 06/10/22 Status: OrderedStart: 06-18-2020 End: 50-84-9465abmypvuqo (XYLOCAINE) 2 % uro-jet2 ml metoclopramide 5 mg/ml prefilled syringe (2 sources)Dopamine-2 Receptor AntagonistStart: 06-10-2024 End: 94-42-324479 mg, IntraVENous, ONCE PRN, 1 dose, Starting on Mon06/10/24 at 0757, Until Mon06/11/24 at 0757, Nausea, Secondary antiemetic therapy., PACU onlyStart: 05-18-2022 End: 04-14-8098lpdwdtyittljko (REGLAN) injection 10 mg24 hr metoprolol succinate 25 mg extended release oral tablet (20 sources)beta-Adrenergic BlockerStart: 28-38-8377nrol 1 tablet by mouth once dailymetoprolol succinate (TOPROL XL) 25 MG extended release tablet TAKE 1 TABLET BY MOUTH EVERY DAY 90 tablet 1 09/03/2024 ActiveStart: 18-49-6016rybj 25 mg by mouth once daily25 mg, Oral, DAILY, First dose on Mon07/01/24 at 1415, Until Discontinued, Do not crush or chew.Start: 06-13-2022 End: 26-62-1309cvcm 1 tablet by mouth once dailymetoprolol succinate (TOPROL XL) 25 MG extended release tablet Take 1 tablet by mouth daily 90 tablet 3 08/08/2022 ActiveStart: 75-83-6204Zxwqyetkdg succinate 25 mg ER Tablet Refills(s) 0 Start Date: 06/08/21 Status: Ordered Repeat number: 1Start: 91-50-9905Efurfyvirn succinate 25 mg ER Tablet Refills(s) 0 Start Date: 06/08/21 Status: OrderedStart: 35-55-6691sdyy 1 tablet by mouth once dailymetoprolol succinate (TOPROL XL) 25 MG extended release tablet Take 1 tablet by mouth daily 90 tablet 3 01/07/2022 Suspendedtake 1 tablet by mouth once dailymetoprolol succinate ER (TOPROL XL) 200 mg 24 hr tablet Take 200 mg by mouth once daily. ActiveComment on above:Take 200 mg by mouth once daily.miconazole nitrate 0.02 mg/mg topical powder (1 source)Azole AntifungalStart: 11-20-2923rfbom 1 dose topically twice daily Topical, 2 TIMES DAILY, First dose on Mon04/22/24 at 1145, Apply to To back rash. Substituted for Nystatin (MICOSTATIN) powder.naloxone 0.4 mg in 10 mL sodium chloride syringe (2 sources)Start: 57-55-6888KizynPUOrvh, PRN, Opioid Reversal, Starting on Mon06/10/24 at 0757, PRN if respiratory rate is lessthan 6/min and patient is difficult to arouse then notify physician STAT. Mix 9 mL of sodium chloride 0.9% with 0.4 mg (1 mL) of naloxone (NARCAN) in 10 mL syringe. (Note: dilution is 0.04 mg/mL) Give 0.08 mg (2 mL of special dilution), slow IV push, repeat up to 0.4 mg (10 mL) or until patient is responsive to physical stimulation and respiratory rate is equal to or greater than 6 breaths/min. Continue to observe, if no response within 3 minutes of administration of 0.4 mg (10 mL) total, repeat dose (0.4 mg as administered previously). Concentration 0.04 mg/mL, PACU onlyStart: hr nicotine 0.583 mg/hr transdermal system (19 sources)Cholinergic Nicotinic AgonistStart: 04-21-2024 End: 84-63-0454cmoiy 1 dose transdermal route once dailynicotine (NICODERM CQ) 14 MG/24HR Place 1 patch onto the skin daily 30 patch 3 04/25/2024 ActiveStart: ml ondansetron 2 mg/ml injection (14 sources)Serotonin-3 Receptor AntagonistStart: 06-10-2024 End: mg, IntraVENous, ONCE PRN, 1 dose, Starting on Mon06/10/24 at 0757, Until Mon06/11/24 at 0757, Nausea, Initial antiemetic therapy., PACU only Start: 04-10-2024 End: 13-46-4424Hphrq: 05-18-2022 End: 50-24-5033mmmppiudasz (ZOFRAN) injection 4 mgStart: 89-97-6216brrr 1 tablet by mouth every eight hours as needed for nauseaondansetron (ZOFRAN-ODT) 4 MG disintegrating tablet Take 1 tablet by mouth every 8 hours as needed for Nausea or Vomiting 20 tablet 1 01/15/2021 ActiveStart: 01-12-2021 End: 11-06-9553qmwfheepmsd (ZOFRAN) injection 4 mgStart: 06-04-2020 End: 20-06-1412ixdotfstfhg (ZOFRAN) injection 4 mgStart: 06-04-2020 End: 51-96-1108sqxu 1 tablet by mouth every four hours as needed for nausea ondansetron (ZOFRAN ODT) 4 MG disintegrating tablet Take 1 tablet by mouth every 4 hours as needed for Nausea or Vomiting 10 tablet 0 06/04/2020 01/12/2021 Discontinued (LIST CLEANUP)ondansetron (ZOFRAN-ODT) disintegrating tablet 4 mg (3 sources)Start: 72-85-4411amqafkjwjwe (ZOFRAN-ODT) disintegrating tablet 4 mg Start: 09-02-9408dzeavhppfqh (ZOFRAN-ODT) disintegrating tablet 4 mgStart: 83-01-3470yhfkrzqxwtp (ZOFRAN-ODT) disintegrating tablet 4 mgoxyCODONE hydrochloride 5 mg oral tablet (1 source)Opioid AgonistStart: 06-05-2020 End: 85-74-6253lfyWCISVV (ROXICODONE) immediate release tablet 5 mgpantoprazole 40 mg delayed release oral tablet (20 sources)Proton Pump InhibitorStart: 68-81-4568vgvt 1 tablet by mouth once dailyProtonix 40 mg Tab-DR 40 mg = 1 tab(s), Oral, Daily, # 90 tab(s), Refills(s) 4, Pharmacy: [facility] #37, 176, cm, 07/30/24 8:06:00 EDT, Height/Length Dosing, 84.5, kg, 07/30/24 8:06:00 EDT, Weight Dosing Start Date: 09/03/24 Status: Ordered Quantity: 90.0 Unit: tab(s) Repeat number: 5Start: 56-53-8756diez 1 tablet by mouth once dailypantoprazole (PROTONIX) 40 MG tablet Indications: Essential hypertension Take 1 tablet by mouth daily 90 tablet 3 10/25/2023 ActiveStart: 04-28-2021 End: 28-19-5242ydsd 1 tablet by mouth once dailyProtonix 40 mg Tab-DR 40 mg = 1 tab(s), Oral, Daily, # 90 tab(s), Refills(s) 3, [facility] [place] [id number], 178, cm, 07/22/22 14:01:00 EST, Height/Length Dosing, 80.9, kg, 07/22/22 14:01:00 EST, Weight Dosing Start Date: 07/22/22 Status: OrderedStart: 01-16-2021 pantoprazole (PROTONIX) tablet 20 mgStart: 99-39-3279uzlo 1 tablet by mouth twice dailypantoprazole (PROTONIX) 20 MG tablet Take 1 tablet by mouth 2 times daily 60 tablet 11 09/29/2014 ActiveComment on above:Take 40 mg by mouth once daily.PIPERACILLIN-TAZOBACTAM (ZOSYN) INFUSION (OUTPATIENT ONLY) (1 source)Start: 04-17-2024 End: 93-92-8945nuvcutlvokxd glycol 3350 02951 mg powder for oral solution (1 source)Osmotic LaxativeStart: 55-61-9978ygmvlpjxdzsb glycol (GLYCOLAX) packet 17 gpregabalin 100 mg oral capsule (12 sources)Start: 54-35-5816uxtcclwpas 100 mg Cap 100 mg = 1 cap(s), Oral, TID, take twice a day for one week. If doing ok go to TID. DC GPN, # 90 cap(s), Refills(s) 0, Pharmacy: [facility] #[id number], 178, cm, 10/14/22 8:44:00 EDT, Height/Length Dosing, 73, kg, 10/14/22 8:44:00 EDT, Weight Dosing Start Date: 10/14/22 Status: Ordered1 ml promethazine hydrochloride 25 mg/ml injection (2 sources)PhenothiazineStart: 13-68-0093Xbfem: 87-73-4675Arfavvab 40 mg Tab-DR (1 source)Start: 79-65-8076fbbr 1 tablet by mouth once dailyProtonix 40 mg Tab- DR 40 mg = 1 tab(s), Oral, Daily, # 90 tab(s), Refills(s) 1, Pharmacy: [facility] #37, 175, cm, 06/23/21 10:13:00 EST, Height/Length Dosing, 74.5, kg, 06/08/21 13:40:00EST, Weight Dosing Start Date: 07/27/21 Status: Ordered rOPINIRole 3 mg oral tablet (20 sources)Nonergot Dopamine AgonistStart: 66-05-7392xmqw 1 tablet by mouth three times dailyropinirole 3 mg Tab 3 mg = 1 tab(s), Oral, TID, # 90 tab(s), Refills(s) 4, Pharmacy: [facility] #37, 176, cm, 12/02/24 8:25:00 EDT, Height/Length Dosing, 83.6, kg, 12/02/24 8:25:00 EDT, Weight Dosing Start Date: 12/23/24 Status: Ordered Quantity: 90.0 Unit: tab(s) Repeat number: 5Start: 49-26-2331ekcd 1 tablet by mouth three times dailyropinirole 3 mg Tab 3 mg = 1 tab(s), Oral, TID, # 90 tab(s), Refills(s) 0, Pharmacy: [facility] #37, 176, cm, 12/02/24 8:25:00 EDT, Height/Length Dosing, 83.6, kg, 12/02/24 8:25:00 EDT, Weight Dosing Start Date: 12/02/24 Status: Ordered Quantity: 90.0 Unit: tab(s) Repeat number: 1Start: 93-62-0994hgkg 1 tablet by mouth twice daily ropinirole 2 mg Tab 2 mg = 1 tab(s), Oral, BID, # 180 tab(s), Refills(s) 4, Pharmacy: [facility] #[id number], 176, cm, 07/30/24 8:06:00 EDT, Height/Length Dosing, 84.5, kg, 07/30/24 8:06:00 EDT, Weight Dosing Start Date: 09/06/24 Status: Ordered Quantity: 180.0 Unit: tab(s) Repeat number: 5Start: 07-01-2024 End: 63-77-5524heuh 0.5 mg by mouth once daily0.5 mg, Oral, NIGHTLY, First dose on Mon07/01/24 at 2100, Until DiscontinuedStart: 06-04-2024 End: 27-84-9845ypfg 2 mg by mouth once daily2 mg, Oral, NIGHTLY, First dose (after last modification) on Mon07/02/24 at 2100, Until DiscontinuedStart: 19-51-7500bufk 2 tablets by mouth once dailyrOPINIRole (REQUIP) 1 MG tablet Take 2 tablets by mouth nightly 04/05/2024 ActiveStart: 12-66-7499lerm 1 tablet by mouth once daily at bedtimerOPINIRole (REQUIP) 1 MG tablet TAKE 1 TABLET BY MOUTH EVERY DAY 1 to 3 hours before bedtime 04/05/2024 ActiveStart: 10-17-2023 take 1 tablet by mouth once daily at bedtimeropinirole 1 mg Tab 1 mg = 1 tab(s), Oral, Daily, 1 to 3 hours before bedtime, # 90 tab(s), Refills(s) 1, Pharmacy: [facility] #37, 176, cm, 09/07/23 15:47:00 EDT, Height/Length Dosing, 82, kg, 09/07/23 15:47:00 EDT, Weight Dosing Start Date: 10/17/23 Status: OrderedStart: 17-13-5384ukip 1 tablet by mouth once daily at bedtimeropinirole 1 mg Tab 1 mg = 1 tab(s), Oral, Daily, 1 to 3 hours before bedtime, # 90 tab(s), Refills(s) 1, Pharmacy: [facility] #37, 178, cm, 08/02/23 10:58:00 EDT, Height/Length Dosing, 83.7, kg, 08/01/23 8:07:00 EDT, Weight Dosing Start Date: 09/07/23 Status: OrderedStart: 42-33-7179hkvw 1 tablet by mouth once daily at bedtimeropinirole 1 mg Tab 1 mg = 1 tab(s), Oral, Daily, 1 to 3 hours before bedtime, # 90 tab(s), Refills(s) 0, Pharmacy: [facility] #[id number], 178, cm, 05/02/23 9:17:00 EST, Height/Length Dosing, 84.2, kg, 05/02/23 9:17:00 EST, Weight Dosing Start Date: 05/02/23 Status: OrderedStart: 02-07-2023 End: 39-96-6784ksov 1 tablet by mouth at bedtimeropinirole 0.5 mg Tab 0.5 mg = 1 tab(s), Oral, Bedtime, X 30 day(s), # 30 tab(s), Refills(s) 3, Pharmacy: [facility] #[id number], 178, cm, 02/07/23 11:02:00 EDT, Height/Length Dosing, 77.3, kg, 02/07/23 11:02:00 EDT, Weight Dosing Start Date: 02/07/23 Stop Date: 06/07/23 Status: Orderedtamsulosin hydrochloride 0.4 mg oral capsule (20 sources)alpha-Adrenergic BlockerStart: 78-13-5389ibla 1 capsule by mouth once dailytamsulosin (FLOMAX) 0.4 MG capsule Take 1 capsule by mouth daily 30 capsule 3 04/25/2024 ActiveStart: 06-04-2020 End: 57-53-2096iyxb 1 capsule by mouth once dailytamsulosin (FLOMAX) 0.4 MG capsule Take 1 capsule by mouth daily 4 capsule 0 06/25/2020 01/12/2021 D iscontinued (LIST CLEANUP)triamcinolone acetonide 0.001 mg/mg topical ointment (20 sources)CorticosteroidStart: 79-24-7187vjupnlatsyhgw Top 0.1% Oint 1 ted, Topical, TID Dry skin, 30 gm, Refill(s) 0, [facility] #[facility], 176, cm, 09/07/23 15:47:00 EDT, Height/Length Dosing, 82, kg, 09/07/23 15:47:00 EDT, Weight Dosing Start Date: 10/17/23 Status: OrderedStart: 96-36-1542gvqpraifmollm Top 0.1% Crm 1 ted, Topical, TID Rash, 30 gram, Refill(s) 1, [facility] #37, 175, cm, 03/15/21 14:04:00 EDT, Height/Length Dosing, 71.1, kg, 03/15/21 14:04:00 EDT, Weight Dosing Start Date: 03/15/21 Status: OrderedStart: 43-69-0094kufidqyamglsv Top 0.1% Crm 1 ted, Topical, TID Rash, 30 gram, Refill(s) 1, [facility] #[facility], 175, cm, 03/15/21 14:04:00 EDT, Height/Length Dosing, 71.1, kg, 03/15/21 14:04:00 EDT, Weight Dosing Start Date: 03/15/21 Status: OrderedComment on above:Apply 1 application to affected area three times daily as needed.varenicline 0.5 mg oral tablet (7 sources)Partial Cholinergic Nicotinic AgonistStart: 50-54-7370zmvnoniyckz 0.5 mg oral tablet See Instructions, 1 tab(s) by mouth daily x3 days then 1 tab (s) by mouth x4 days., # 11 tab(s), Refills(s) 0, Pharmacy: [facility] #[id number], 178, cm, 09/21/22 13:00:00 EDT, Height/Length Dosing, 75, kg, 09/12/22 8:55:00 EDT, Weight Dosing Start Date: 10/03/22 Status: OrderedStart: 10-03-2022 take 1 tablet by mouth twice dailyvarenicline 1 mg oral tablet 1 mg = 1 tab(s), Oral, BID, # 60 tab(s), Refills(s) 1, Pharmacy: [facility] #[id number], 178, cm, 09/21/22 13:00:00 EDT, Height/Length Dosing, 75, kg, 09/12/22 8:55:00 EDT, Weight Dosing Start Date: 10/03/22 Status: OrderedStart: 25-91-3912qqzj 1 tablet by mouth once dailyChantix Starter Pack 0.5 mg-1 mg oral tablet See Instructions, 0.5mg daily day 1-3 0.5mg BID day 4-7 1mg BID day 8 until end of treatment, # 1 kit(s), Refills(s) 0, Pharmacy: [facility] #[id number], 178, cm, 09/12/22 8:55:00 EDT, Height/Length Dosing, 75, kg, 09/12/22 8:55:00 EDT, Weight... Start Date: 09/12/22 Status: Orderedxproconvex light -#[id number] (2 sources)Start: 94-11-7940dwudpuauiw light -#[id number] xproconvex light - #[id number], See Instructions, 30 EA, 5, change colostomybag daily., Supply Start Date: 05/29/24 Status: Ordered (1 source)Start: 04-17-2024 End: 05-17-2024 (12 sources)Start: 04-19-2024 End: 07-81-0818Eaylt: 04-18-2024 End: 51-23-7395Kluiy: 04-17-2024[Order 1 Start] Name: potassium chloride (KLOR- CON M) extended release tablet 40 mEq Signed Summary: 40 mEq, Oral, PRN, Starting on Mon04/17/24 at 0801, Until Discontinued, Per Potassium Replacement Protocol, May give alternative linked oral order (ordered as effervescent, packet, or liquid solution) if patient unable to tolerate tablet. K Lab Replacement Action 3.1 to 3.5 40 mEq ORAL x 1 Under 3.1 Refer to IV replacement protocol Recheck K level in AM. Protocol not for use in patients with CrCl less than 30 mL/min. Do not crush, chew, or suck on tablet. Tablet may also be broken in half andeach half swallowed separately. [Order 1 End] [Order 2 Start] Name: potassium bicarb-citric acid (EFFER-K) effervescent tablet 40 mEq Signed Summary: 40 mEq, Oral, PRN, Starting on Mon04/17/24 at 0801, Until Discontinued, Per Potassium Replacement Protocol, Administer as alternative if patient unable to [...] juice. Patient to sip slowly over a 5to 10 minute period. May further dilute if GI adverse effects occur. [Order 2 End] [Order 3 Start] Name: potassium chloride 10 mEq/100 mL IVPB (Peripheral Line) Signed Summary: 10 mEq, IntraVENous, PRN, Starting on Mon04/17/24 at 0801, Until Discontinued, at 100 mL/hr, Per Potassium Replacement Protocol, K Lab Replacement Action 2.7 to 3.0 10 mEq IVPB x 6 doses (60 mEq Total) Under 2.7 CALL PROVIDER and administer 10 mEq IVPB x 6 doses (60 mEq Total) Infuse at 10 mEq/hr. Repeat Potassium lab 1hour after final administration. Protocol not for use in patients with CrCl less than 30 mL/min. [Order 3 End]Start: 34-68-5943Wseto: 33-46-1765Ywdpb: 04-12-2024[Order 1 Start] Name: oxyCODONE-acetaminophen (PERCOCET) 5-325 MG per tablet 1 tablet Signed Summary: 1 tablet, Oral, EVERY 4 HOURS PRN, Starting on Mon04/12/24 at 0906, Until Discontinued, Pain Moderate (4-6), Maximum dose of acetaminophen is 4000 mg from all sources in 24 hours. [Order 1 End] [Order 2 Start] Name: oxyCODONE- acetaminophen (PERCOCET) 5-325 MG per tablet 2 tablet Signed Summary: 2 tablet, Oral, EVERY 4 HOURS PRN, Starting on Mon04/12/24 at 0906, Until Discontinued, Pain Severe(7-10), Maximum dose of acetaminophen is 4000 mg from all sources in 24 hours. [Order 2 End]Start: 68-71-4341Rytae: 94-07-0123Tqber: 04-11-2024 End: 54-95-5163Xzzem: 04-10-2024[Order 1 Start] Name: HYDROmorphone (DILAUDID) injection 0.5 mg Signed Summary: 0.5 mg, IntraVENous, EVERY 2 HOURS PRN, Starting on Mon04/10/24 at 1643, Until Discontinued, Pain Moderate (4-6), pain, If oral and IV narcotics ordered, use oral first and only use IV if oral is ineffective or cannot take oral. Do Not give oral and IV within 1 hour of each other unless specifically ordered. [Order 1End] [Order 2 Start] Name: HYDROmorphone HCl PF (DILAUDID) injection 1 mg Signed Summary: 1 mg, Intr aVENous, EVERY 2 HOURS PRN, Starting on Mon04/10/24 at 1643, Until Discontinued, Pain Severe (7-10), pain, If oral and IV narcotics ordered, use oral first and only use IV if oral is ineffective or cannot take oral. Do Not give oral and IV within 1 hour of each other unless specifically ordered. [Order 2 End]Start: 04-10-2024[Order 1 Start] Name: dextrose bolus 10% 125 mL Signed Summary: 125 mL, IntraVENous, at 937.5 mL/hr, Administer over 8 Minutes, PRN, Other, Blood glucose 40 - 69 mg/dL and patient NOT ALERT or NPO, Starting on Mon04/10/24 at 1554, Repeat blood glucose in 15 minutes. If blood glucose remains LESS THAN 70 mg/dL, repeat treatment and recheck blood glucose in 15 minutes x 2. If using glycemic management system, dose as instructed per system. If blood glucose remains LESS THAN 70 mg/dL after 2 intravenous boluses start dextrose 10% at 100 mL/hour and notify provider. [Order 1 End] [Order 2 Start]Name: dextrose bolus 10% 250 mL Signed Summary: 250 mL, IntraVENous, at 937.5 mL/hr, Administer over 16 Minutes, PRN, Other, Blood glucose LESS THAN 40 mg/dL and patient NOT ALERT or NPO, Starting onWed 04/10/24 at 1554, Repeat blood glucose in 15 minutes. If blood glucose remains LESS THAN 70 mg/dL, repeat treatment and recheck blood glucose in 15 minutes x 2. If using glycemic management system, dose as instructed per system. If blood glucose remains LESS THAN 70 mg/dL after 2 intravenous boluses start dextrose 10% at 100 mL/hour and notify provider. [Order 2 End]Start: 04-10-2024[Order 1 Start] Name: ondansetron (ZOFRAN-ODT) disintegrating tablet 4 mg Signed Summary: 4 mg, Oral, EVERY 8 HOURS PRN, Starting on Mon04/10/24 at 1505, Until Discontinued, Nausea, Vomiting [Order 1 End] [Order 2 Start] Name: ondansetron (ZOFRAN) injection 4 mg Signed Summary: 4 mg, IntraVENous, EVERY 6 HOURS PRN, Starting on Mon04/10/24 at 1505, Until Discontinued, Nausea, Vomiting, Administer if oral route cannot be used. [Order 2 End] (1 source)Start: 04-10-2024 Completed/Discontinued Medications MedicationDrug Class(es)DatesSig (Normalized)Sig (Original)acetaminophen 325 mg oral tablet (9 sources)Start: 28-16-6914269 mg, Oral, EVERY 4 HOURS PRN, Starting on Mon04/21/24 at 1229, Until Discontinued, Pain Mild (1-3), Pain Moderate (4-6), Fever, Maximum dose of acetaminophen is 3000 mg from all sources in 24 hours. Discontinue at discharge.Start: 70-57-9882Zzhnoqm Refills(s) 0 Start Date: 04/07/23 Status: OrderedStart: 34-53-4835qxinewjipmqch (TYLENOL) tablet 650 mg Start: 06-18-2020 End: 88-95-5178gcrwltqljemuf (TYLENOL) tablet 650 mgacetaminophen 300 mg / codeine phosphate 30 mg oral tablet (2 sources)Opioid AgonistStart: 02-26-2024 End: 87-78-0615Esdff: 78-91-1595kabyxtmojhvwc-codeine (TYLENOL #3) 300-30 MG per tablet 02/26/2024 Activeacetaminophen 325 mg / HYDROcodone bitartrate 5 mg oral tablet (1 source)Opioid AgonistStart: 06-18-2020 End: 08-31-5634CRHLQseiglr-acetaminophen (NORCO) 5-325 MG per tablet 1 tablet Start: 06-18-2020 End: 38-04-3836AFPWSpqdmcu-acetaminophen (NORCO) 5-325 MG per tablet 1 ml albumin human, detention 50 mg/ml injection (1 source)Human Serum AlbuminStart: 04-10-2024 End: 25-88-1186fsybgazz hydroxide 40 mg/ml / magnesium hydroxide 40 mg/ml / simethicone 4 mg/ml oral suspension (1 source)Start: 04-12-2024 End: 15-18-6480Ihwws: 04-12-2024 End: 71-21-7476lkctwdfujk 6 mg / menthol 10 mg oral lozenge (1 source)Standardized Chemical AllergenStart: lozenge, Oral, EVERY 2 HOURS PRN, Starting on Mon04/21/24 at 1734, Until Discontinued, Sore Throat bisacodyl 10 mg rectal suppository (1 source)Stimulant LaxativeStart: 84-72-9154qdop 10 mg rectal route once daily as needed for pttlloaxrids79 mg, Rectal, DAILY PRN, Starting on Mon04/21/24 at 1229, Until Discontinued, Constipation, First line therapy for constipation calcium chloride 0.0014 meq/ml / potassium chloride 0.004 meq/ml / sodium chloride 0.103 meq/ml / sodium lactate 0.028 meq/ml injectable solution (7 sources)Start: 04-20-2024 End: 13-01-3292Lzgyv: 04-12-2024 End: 51-46-8809Oewav: 04-11-2024 End: 87-99-5735Mpnnn: 04-10-2024 End: 73-45-9715Ssotg: 17-52-6030zoggxvqn ringers infusionStart: 06-05-2020 lactated ringers kzgigalo710 ml ciprofloxacin 2 mg/ml injection (3 sources)Quinolone AntimicrobialStart: 01-12-2021 End: 24-58-3980fvdlhwasundoj (CIPRO) IVPB 400 mgStart: 06-18-2020 End: 96-55-3321ctctgeemvsfvi (CIPRO) IVPB 400 mgStart: 06-05-2020 End: 93-67-4259uhylcvjmeiuhe (CIPRO) IVPB 400 mgdimenhyDRINATE 50 mg oral tablet (1 source)Start: 06-18-2020 End: 10-49-5798ajmggzgHWMDVWF (DRAMAMINE) tablet 50 mgdocusate sodium 50 mg / sennosides, detention 8.6 mg oral tablet (11 sources) End: 06-25-2430tdho 8.6-50 mg by mouth oncesenna-docusate (PERICOLACE) 8.6-50 MG per tablet Take 1 tablet by mouth daily Active0.4 ml enoxaparin sodium 100 mg/ml prefilled syringe (4 sources)Low Molecular Weight HeparinStart: 35-91-6325ujlagz 40 mg by subcutaneous injection once daily40 mg, SubCUTAneous, DAILY, First dose on 07/01/24 at 1415, Until Discontinued, Indication of Use: Prophylaxis-DVT/PE, Administer by deep subCUTAneous injection with pt lying down. Alternate inject ion sites on abdominal wall. Do not rub site after injection. Check with provider prior to any invasive procedure., Post-opStart: 33-99-4225tjixol 40 mg by subcutaneous injection once daily40 mg, SubCUTAneous, DAILY, First dose (after last modification) on 04/21/24 at 0900, Until Discontinued, Indication of Use: Prophylaxis-DVT/PE, Administer by deep subCUTAneous injection with pt ly ing down. Alternate injection sites on abdominal wall. Do not rub site after injection. Check with provider prior to any invasive procedure.Start: 01-13-2021 enoxaparin (LOVENOX) injection 40 mgertapenem (INVanz) 1,000 mg in sodium chloride 0.9 % 50 mL IVPB (mini-bag) (9 sources)Start: 05-04-2024 End: 18-98-6137woqv 1000 mg intravenously once daily1,000 mg, IntraVENous, ONCE, 1 dose, On 05/04/24 at 1345, Antimicrobial Indications: Intra-Abdominal Infection, Incompatible with dextrose containing solutions. Invanz 1000mg IV every day for 10 daysStart: 05-03-2024 End: 48-47-3163rhqy 1000 mg intravenously once daily1,000 mg, IntraVENous, ONCE, 1 dose, On Mon05/03/24 at 1400, Antimicrobial Indications: Intra-Abdominal Infection, Incompatible with dextrose containing solutions. Invanz 1000mg IV every day for 10 daysStart: 05-02-2024 End: 22-01-2731oqbw 1000 mg intravenously once daily1,000 mg, IntraVENous, ONCE, 1 dose, On Mikayla 05/02/24 at 1415, Antimicrobial Indications: Intra-Abdominal Infection, Incompatible with dextrose containing solutions. Invanz 1000mg IV every day for 10 daysStart: 04-30-2024 End: 42-79-7530gzfn 1000 mg intravenously once daily1,000 mg, IntraVENous, ONCE, 1 dose, On 04/30/24 at 1415, Antimicrobial Indications: Intra-Abdominal Infection, Incompatible with dextrose containing solutions. Invanz 1000mg IV every day for 10 daysStart: 04-29-2024 End: 31-29-4868broi 1000 mg intravenously once daily1,000 mg, IntraVENous, ONCE, 1 dose, On 04/29/24 at 1400, Antimicrobial Indications: Intra-Abdominal Infection, Incompatible with dextrose containing solutions. Invanz 1000mg IV every day for 10 daysStart: 04-28-2024 End: 83-55-3142fykm 1000 mg intravenously once daily1,000 mg, IntraVENous, ONCE, 1 dose, On Mon04/28/24 at 1400, Antimicrobial Indications: Intra-Abdominal Infection, Incompatible with dextrose containing solutions. Invanz 1000mg IV every day for 10 daysStart: 04-27-2024 End: 99-46-9877uzfd 1000 mg intravenously once daily1,000 mg, IntraVENous, ONCE, 1 dose, On 04/27/24 at 1415, Antimicrobial Indications: Intra-Abdominal Infection, Incompatible with dextrose containing solutions. Invanz 1000mg IV every day for 10 daysStart: 04-26-2024 End: 57-09-2266adiq 1000 mg intravenously once daily1,000 mg, IntraVENous, ONCE, 1 dose, On Mon04/26/24 at 1430, Antimicrobial Indications: Intra-Abdominal Infection, Incompatible with dextrose containing solutions. Invanz 1000mg IV every day for 10 daysStart: 04-25-2024 End: ,000 mg, IntraVENous, ONCE, 1 dose, On Mikayla 04/25/24 at 1200, Antimicrobial Indications: Other, Other Abx Indication: ., Incompatible with dextrose containing solutions.esomeprazole 40 mg delayed release oral capsule (2 sources)Proton Pump InhibitorStart: 08-18-2014 End: 50-15-2913cces 1 capsule by mouth once dailyesomeprazole (NEXIUM) 40 MG capsule Take 1 capsule by mouth daily. 30 capsule 3 08/18/2014 06/05/2020 Discontinued (DISCONTINUED BY ANOTHER CLINICIAN)2 ml fentaNYL 0.05 mg/ml injection (4 sources)Opioid AgonistStart: 01-13-2021 End: 66-70-8867hobetLNJ (SUBLIMAZE) injectionStart: 20-32-4091itnphKGX (SUBLIMAZE) injection 50 mcgStart: 98-92-2979xyemxIPU (SUBLIMAZE) injection 25 mcg2 ml furosemide 10 mg/ml injection (2 sources)Loop DiureticStart: 04-13-2024 End: ml HYDROmorphone hydrochloride 1 mg/ml cartridge (2 sources)Opioid AgonistStart: 07-01-2024 End: .5 mg, IntraVENous, EVERY 10 MIN PRN, 4 doses, Starting on Mon07/01/24 at 0953, Until Mon07/01/24 at 1354, Pain Severe (7-10), Phase I - Initial therapy for severe pain., PACU onlyStart: 04-10-2024 End: 61-65-7341tdsrhvdqy (ISOVUE-370) 76 % injection 100 mL (2 sources)Start: 02-08-2021 End: 02-44-8400kyielxemd (ISOVUE-370) 76 % injection 100 mLStart: 06-04-2020 End: 73-95-6828yjjzzqwdn (ISOVUE-370) 76 % injection 100 mLiopamidol (ISOVUE- 370) 76 % injection 75 mL (1 source)Start: 01-12-2021 End: 78-19-8800htlxywcul (ISOVUE-370) 76 % injection 75 mLketoconazole 20 mg/ml topical cream (5 sources)Azole AntifungalStart: 10-02-2014 End: 19-69-5880wuudsmixsgpa (NIZORAL) 2 % cream Indications: Tinea pedis Apply to affected area(s) twice daily 30 g 3 10/02/2014 01/12/2021 Discontinued (LIST CLEANUP)lactobacillus rhamnosus gg [id number] unt oral capsule (2 sources)Start: 69-60-2871chaj 1 capsule by mouth twice daily1 capsule, Oral, 2 TIMES DAILY, First dose (after last modification) on 04/20/24 at 2100, UntilDiscontinuedStart: 48-42-4009Fublwfgpp / Sodium Chloride (1 source)Antiarrhythmic, Amide Local AnestheticStart: 06-04-2020 End: 74-68-7645jrrwjhdem (cardiac) (XYLOCAINE) 76 mg in sodium chloride 0.9 % 100 mL IVPB50 ml magnesium sulfate 40 mg/ml injection (2 sources)Start: 04-13-2024 End: 93-21-7912Bkrac: 74-79-7251stwldcrby sulfate 1000 mg in dextrose 5% 100 mL IVPBmeloxicam 15 mg oral tablet (6 sources)Nonsteroidal Anti-inflammatory Drugtake 1 tablet by mouth once daily meloxicam (MOBIC) 15 MG tablet Take 15 mg by mouth daily 0 Riktvgzbr568 ml metroNIDAZOLE 5 mg/ml injection (1 source)Nitroimidazole AntimicrobialStart: 01-12-2021 End: 81-49-8176dpodbbxtpjmwr (FLAGYL) 500 mg in NaCl 100 mL IVPB premix2 ml midazolam 1 mg/ml injection (1 source)BenzodiazepineStart: 01-13-2021 End: 18-79-4151yrdghgegg PF (VERSED) injection1 ml morphine sulfate 2 mg/ml cartridge (5 sources)Opioid AgonistStart: 01-13-2021 End: 73-17-8059uesuadlo (PF) injection 1 mgStart: 01-12-2021 End: 13-69-2358xjoztpzl injection 2 mgStart: 01-12-2021 End: 64-51-4801zibenuzz sulfate (PF) injection 4 mgStart: 01-12-2021 End: 50-86-8446fovugrig sulfate (PF) injection 4 mgStart: 01-12-2021 End: 45-22-4917kyoxrxzm sulfate (PF) injection 4 mgnystatin 934922 unt/ml oral suspension (2 sources)Polyene AntifungalStart: 04-20-2024 End: 55-26-6825504,000 Units (5 mL), Oral, 4 TIMES DAILY, 12 doses, First dose (after last modification) on 04/20/24 at 2100, Last dose on Mon04/23/24 at 1700, Swish about the mouth and retain in the mouth for as long as possible before swallowing.Start: 04-16-2024 End: 86-03-3121uksxlkeeftlwm hydrochloride 0.5 mg/ml nasal spray (1 source)Start: 04-22-2024 End: spray, Each Nostril, 2 TIMES DAILY, 6 doses, First dose on Mon04/22/24 at 0930, Last dose on Mon04/24/24 at 2100piperacillin-tazobactam (ZOSYN) 3,375 mg in dextrose 5 % 50 mL IVPB (mini-bag) (1 source)Start: 01-13-2021 End: 67-53-5398bfizqfffnwdy-tazobactam (ZOSYN) 3,375 mg in dextrose 5 % 50 mL IVPB (mini-bag)piperacillin-tazobactam (ZOSYN) 3,375 mg in sodium chloride 0.9 % 50 mL IVPB (mini-bag) (2 sources)Start: ,375 mg, IntraVENous, EVERY 6 HOURS, First dose (after last modification) on Mon04/21/24 at 2045, Until Discontinued, Antimicrobial Indications: Intra-Abdominal InfectionStart: 04-20-2024 End: ,375 mg, IntraVENous, EVERY 8 HOURS, First dose (after last modification) on 04/20/24 at 1445,Until Discontinued, Antimicrobial Indications: Intra-Abdominal Infectionpiperacillin-tazobactam (ZOSYN) 4,500 mg in dextrose 5 % 100 mL IVPB (mini-bag) (2 sources)Start: 01-12-2021 End: 24-46-7600fsuuhepswrpd-tazobactam (ZOSYN) 4,500 mg in dextrose 5 % 100 mL IVPB (mini-bag)Start: 01-12-2021 End: 42-69-9218uaqbhhahbpoi-tazobactam (ZOSYN) 4,500 mg in dextrose 5 % 100 mL IVPB (mini-bag)piperacillin-tazobactam (ZOSYN) infusion (2 sources)Start: 04-24-2024 End: 55-15-4386ognh 3.375 g intravenously every six hourspiperacillin-tazobactam (ZOSYN) infusion Infuse 3.375 g intravenously every 6 hours for 10 days Cbcbmp weekly CRP weekly 135 g 04/24/2024 04/25/2024 Discontinued (Stop Taking at Discharge)Start: 04-17-2024 End: 06-99-0483kllj 3.375 g intravenously every six hourspiperacillin-tazobactam (ZOSYN) infusion Infuse 3.375 g intravenously every 6 hours CBC BMP weekly CRP in 3 weeks Fax results to [phone] Follow-up with Dr. Veronica Mariscal in 4 weeks at [id number] 405 g 04/17/2024 04/24/2024 Discontinued (Stop Taking at Discharge) PN-Adult 3 IN 1 Central Line (Standard) (1 source)Start: 04-20-2024 End: 17-66-9232AigncLOIxuz, at 75 mL/hr, Administer over 24 Hours, CONTINUOUS TPN, Starting on 04/20/24 at 1445, For 6 hours, Use 1.2 micro filter. Do not use administration sets and lines that contain DEHP. USE CAUTION IF PATIENT USING PROPOFOL.50 ml potassium chloride 0.4 meq/ml injection (2 sources)Start: 04-18-2024 End: 20-51-1477Kvdlu: 46-25-8609eteaftero chloride (KLOR-CON M) extended release tablet 40 mEqraNITIdine 150 mg oral tablet (2 sources)Histamine-2 Receptor Antagonist End: 78-02-4476cceu 1 tablet by mouth four times dailyranitidine (ZANTAC) 150 MG tablet Take 150 mg by mouth 4 times daily. 0 06/05/2020 Discontinued (DIS CONTINUED BY ANOTHER CLINICIAN)simvastatin 20 mg oral tablet (5 sources)HMG-CoA Reductase InhibitorStart: 09-29-2014 End: 51-55-8500lzxz 1 tablet by mouth once dailysimvastatin (ZOCOR) 20 MG tablet Take 1 tablet by mouth nightly 30 tablet 09/29/2014 01/12/2021 Discontinued (LIST CLEANUP)10 ml sodium bicarbonate 84 mg/ml injection (1 source)Start: 04-11-2024 End: 84-20-2166Ncycw: 04-11-2024 End: ml sodium chloride 9 mg/ml injection (20 sources)Start: -40 mL, IntraVENous, EVERY 12 HOURS SCHEDULED (2 times per day), First dose on Mon07/01/24 at 2100, Until Discontinued, For Line Patency: Peripheral IV = 5 mL; Midline or Central Line = 10 mL/lumen.If following IV push medication, administer flush at same rate as the IV push. Flush volume is determined by type of infusion therapy being given. For non- viscous solutions use: Peripheral IV = 5 mL Midline or Central Line = 10 mL/lumen For viscous solutions (i.e. blood components, parenteral nutrition, contrast media, or after obtaining blood sample) use: Peripheral IV = 10 mL Midline or CentralLine = 20 mL/lumen, Post-opStart: 85-36-6143Dnnyv: 07-01-2024 End: 45-98-1576RdvsfMEOgjn, at 50 mL/hr, CONTINUOUS, Starting on Mon07/01/24 at 1415, Post-opStart: 07-01-2024 End: 05-83-0392YvotpLMUzqr, at 5-250 mL/hr, PRN, if patient receiving piggyback infusions and maintenance fluids are not ordered, Starting on Mon07/01/24 at 0705, For piggyback infusion, administer at same rate as piggyback for a total of 25 mL. Enter 25 mL into dose field and piggyback rate into rate field of ord er. If piggyback is infusing at a rate less than 100 mL/hr, enter 25 mL into dose field and 100 mL/hr into rate field of order., Pre-op (day of surgery) Start: -40 mL, IntraVENous, EVERY 12 HOURS SCHEDULED (2 times per day), First dose on Mon06/10/24 at 0900, Until Discontinued, For Line Patency: Peripheral IV = 5 mL; Midline or Central Line = 10 mL/lumen.If following IV push medication, administer flush at same rate as the IV push. Flush volume is deter mined by type of infusion therapy being given. For non-viscous solutions use: Peripheral IV = 5 mL Midline or Central Line = 10 mL/lumen For viscous solutions (i.e. blood components, parenteral nutrition, contrast media, or after obtaining blood sample) use: Peripheral IV = 10 mL Midline or CentralLine = 20 mL/lumen, PACU onlyStart: 63-15-5443cror 1 mL intravenously every hour as needed IntraVENous, at 100 mL/hr, PRN, If patient receiving piggyback infusions without ordered maintenance IV fluids or with frequent/long duration piggyback infusions, Starting on Mon06/10/24 at 0757, Administer at the same rate as the piggyback being infused., PACU onlyStart: -40 mL, IntraVENous, PRN, Starting on Mon06/10/24 at 0757, Until Discontinued, Line Care, After every IV [...] IV = 10 mL Midline or Central Line= 20 mL/lumen, PACU onlyStart: 06-10-2024 End: 66-05-4872BbjusYOHrfj, at 5-250 mL/hr, PRN, if patient receiving piggyback infusions and maintenance fluids are not ordered, Starting on Mon06/10/24 at 0617, For piggyback infusion, administer at same rate as piggyback for a total of 25 mL. Enter 25 mL into dose field and piggyback rate into rate field of ord er. If piggyback is infusing at a rate less than 100 mL/hr, enter 25 mL into dose field and 100 mL/hr into rate field of order., Pre-op (day of surgery) Start: 05-04-2024 End: -40 mL, IntraVENous, PRN, Starting on 05/04/24 at 1329, Until 05/05/24 at 0728, Line Care,If following IV push medication, administer flush at same rate as the IV push. Flush volume is determined by type of infusion therapy being given. For non-viscous solutions use: Peripheral IV = 5 mL Midline or Central Line = 10 mL/lumen For viscous solutions (i.e. blood components, parenteral nutrition, contrast media, or after obtaining blood sample) use: Peripheral IV = 10 mL Midline or CentralLine = 20 mL/lumenStart: 04-20-2024 End: -40 mL, IntraVENous, EVERY 12 HOURS SCHEDULED (2 times per day), First dose (after last modification) on 04/20/24 at 2100, Until Discontinued, For Line Patency: Peripheral IV = 5 mL; Midline or Central Line = 10 mL/lumen. If following IV push medication, administer flush at same rate as the IVpush. Flush volume is determined by type of infusion therapy being given. For non-viscous solutionsuse: Peripheral IV = 5 mL Midline or Central Line = 10 mL/lumen For viscous solutions (i.e. blood components, parenteral nutrition, contrast media, or after obtaining blood sample) use: Peripheral IV= 10 mL Midline or Central Line = 20 mL/lumenStart: 02-84-3716Upgsc: 27-45-2290Auviz: 04-11-2024 End: 02-25-2444Gzjfu: 04-11-2024 End: 77-05-1690Qwzpc: 04-10-2024 End: 77-10-9566Uqtfw: 04-10-2024 End: 15-83-0694Oilyo: .9 % sodium chloride infusionStart: 05-18-2022 sodium chloride flush 0.9 % injection 5-40 mLStart: 60-41-3554ucrdxo chloride flush 0.9 % injection 10 mLStart: 20-32-3215xrtrts chloride flush 0.9 % injection 5-40 mLStart: 01-12-2021 End: .9 % sodium chloride infusionStart: 01-12-2021 End: .9 % sodium chloride bolussodium phosphate, dibasic 35.5 mg/ml / sodium phosphate, monobasic 96.4 mg/ml enema (1 source)Start: enema, Rectal, DAILY PRN, Starting on 04/21/24 at 1229, Until Discontinued, Constipation, Second line therapy for constipation, After 24 hours, if no result from first line PRN therapy, give second line therapy in combination with first line therapy.sulfamethoxazole 800 mg / trimethoprim 160 mg oral tablet (4 sources)Dihydrofolate Reductase Inhibitor Antibacterial, Sulfonamide AntimicrobialStart: 06-04-2020 End: 49-25-7593ycjc 1 tablet by mouth twice dailysulfamethoxazole-trimethoprim (BACTRIM DS) 800-160 MG per tablet Take 1 tablet by mouth 2 times daily for 7 days 14 tablet 0 06/04/2020 06/11/2020 Expiredubidecarenone 100 mg / vitamin e 5 unt oral capsule (1 source)Start: 23-37-9268wape 100 mg by mouth once ipyvn372 mg, Oral, DAILY, First dose on 04/22/24 at 0915, Until Discontinuedvitamin B12 (1 source)Vitamin B60Zlrmo: 83-00-3890pcjiqt 1000 ug by intramuscular injection every week1,000 mcg, IntraMUSCular, WEEKLY, First dose on 04/22/24 at 0915, Until Discontinued (2 sources)Start: 04-19-2024 End: 04-19-2024 (1 source)Start: 04-11-2024 End: 04-12-2024 (2 sources)Start: 04-11-2024 End: 19-39-3248Zyerz: 04-11-2024 End: 04-11-2024 Problems Active Problems Problem ClassificationProblemDateDocumented DateEpisodic/ChronicAcute and unspecified renal failure (6 sources)Acute renal failure syndrome; Translations: [Acute kidney failure, unspecified]Onset: 14-39-2063SkggsfptIuwiih and peripheral arterial embolism or thrombosis (20 sources)Embolism and thrombosis of arteries of the lower extremities; Translations: [Arterial embolism and thrombosis of lower extremity]Onset: 906528-37-6885BiyqtraUqlmlb; peripheral; and visceral artery aneurysms (20 sources)Abdominal aortic aneurysm without rupture; Translations: [Abdominal aortic aneurysm]Onset: 42-79-6108IbsptueOqppombl of urinary tract (20 sources)Ureteric stone; Translations: [Kidney stone]Onset: 06-17-2020 39-06-2868ExrmmnmeOgccmejtbmo and hemorrhagic disorders (13 sources)Non-thrombocytopenic purpura; Translations: [Other nonthrombocytopenic purpura]Onset: 21-95-3586YqhfonnaDjzpjbnpkkjuq of surgical procedures or medical care (9 sources)Ileostomy malfunction; Translations: [Enterostomy malfunction]Onset: 903921-52-9122LwjyqaoLuaagsuyic and other anemia (3 sources)Iron deficiency anemia; Translations: [Iron deficiency anemia, unspecified]Onset: 525445-87-7346InuqrcqvKmzbhfmjx of lipid metabolism (20 sources)Mixed hyperlipidemia; Translations: [Mixed hyperlipidemia]Onset: 52-28-1148FnsluqgTeqtqkcrbhzoag and diverticulitis (20 sources)Abscess with diverticular disease of colon; Translations: [Diverticulitis of large intestine with perforation and abscess without bleeding]Onset: 54-36-9467EgxggxfPaksloalkl disorders (20 sources)Gastro-esophageal reflux disease without esophagitis; Translations: [Gastroesophageal reflux disease]Onset: 213707-80-5899LenjveqFujwsbwnm hypertension (20 sources)Essential hypertension; Translations: [Essential (primary) hypertension]Onset: 47-11-9549ByhaobgRoqhd and electrolyte disorders (20 sources)Hypokalemia; Translations: [Hypokalemia]EpisodicHepatitis (2 sources)Chronic viral hepatitis C; Translations: [Chronic viral hepatitis C (HCC)]Onset: 05-03-1560JcuooyhDzuoajumflyol and screening for infectious disease (5 sources)Viral screening status; Translations: [Encounter for screening for other viral diseases]Onset: 96-71-8820NrdiqpotOqvn wounds of extremities (5 sources)Laceration of left thigh; Translations: [Laceration without foreign body, left thigh, initial encounter]Onset: 76-46-5478YducahalQqgjfqfntxoboh (1 source)Unspecified osteoarthritis, unspecified site; Translations: [UNSPECIFIED OSTEOARTHRITIS UNS SITE]Onset: 69-91-5972GxpgcybHdhbq aftercare (1 source)Long-term current use of anticoagulant; Translations: [assisted (current) use of anticoagulants]Onset: 46-58-9477QvknoghiJxnwn aftercare (3 sources)Long-term current use of drug therapy; Translations: [Other alf (current) drug therapy]Onset: 63-87-5055DtrelkuvXerfc and unspecified benign neoplasm (1 source)Benign lipomatous tumor; Translations: [Benign lipomatous neoplasm, unspecified]Onset: 93-08-4708KswsdinyJffqe and unspecified benign neoplasm (5 sources)Lipoma (clinical)88-16-8312AluffmpgZhcmb circulatory disease (20 sources)Iliac artery stenosis; Translations: [Stricture of artery]Onset: 194274-15-7904BuarkudEytwk circulatory disease (20 sources)Labile blood pressure; Translations: [Other specified symptoms and signs involving the circulatory and respiratory systems]EpisodicOther circulatory disease (3 sources)Carotid bruit; Translations: [Other specified symptoms and signs involving the circulatory and respiratory systems]EpisodicOther circulatory disease (1 source)Bleeding; Translations: [Hemorrhage, not elsewhere classified] 08-93-3137OegkezwuWfbkf gastrointestinal disorders (19 sources)Ileostomy present; Translations: [Ileostomy status]Onset: 04-22-2024 77-63-1357HlolhnyStczq gastrointestinal disorders (20 sources)History of pmtqytcnueekbp51-41-1883NlqwbudlWxhif gastrointestinal disorders (1 source)H/O: gastrointestinal disease; Translations: [Personal history of other diseases of the digestive system]Onset: 88-30-4694NogcrqjaZfygc gastrointestinal disorders (20 sources)Constipation; Translations: [Constipation, unspecified]Onset: 814485-51-2364YqjauklgExkca gastrointestinal disorders (1 source)Constipation, unspecified; Translations: [Constipation, unspecified] Onset: 72-62-3716FxgihvhwDlcdo hereditary and degenerative nervous system conditions (20 sources)Restless legs; Translations: [Restless legs syndrome]Onset: 60-53-0756OoilvrsXuvxt non-traumatic joint disorders (20 sources)Multiple joint pain; Translations: [Pain in unspecified joint]Onset: 706899-89-6454RdotjmeePsdsj non-traumatic joint disorders (3 sources)Disorder of dcya92-41-8511QqlxutxcSutct nutritional; endocrine; and metabolic disorders (20 sources)Xrfzrnhqozho49-38-3259UrsxzhlYycdb nutritional; endocrine; and metabolic disorders (13 sources)Overweight in adulthood with body mass index of 25 or more but less than 30; Translations: [Body mass index (BMI) 26.0-26.9, adult]Onset: 07-30-2023 EpisodicOther nutritional; endocrine; and metabolic disorders (18 sources)Overweight; Translations: [Overweight]Onset: 11-94-0177WcdtppmwBvaqw skin disorders (19 sources)Multiple actinic cwohzkgpv11-55-7430YsqdqggdNlufj skin disorders (1 source)Actinic keratosis; Translations: [Actinic keratosis]Onset: 02-07-2023 EpisodicOther upper respiratory disease (1 source)Difficulty talking; Translations: [Dysphonia]Onset: 35-14-7958Hjxrloyb Other upper respiratory disease (3 sources)Vybwrg07-78-1784FspajpfkDgowdczixz and visceral atherosclerosis (20 sources)Atherosclerosis of artery of lower limb; Translations: [Atherosclerosis of quinault arteries of extremities with intermittent claudication, left leg]Onset: 677714-84-5344FukteraEyfxqjtfpzu and intestinal abscess (4 sources)Abscess of sigmoid heqtn18-81-4557FehjirnlEucfylvd codes; unclassified (3 sources)Body mass index 20-24 - normal; Translations: [Body mass index (BMI) 24.0-24.9, adult]Onset: 74-11-9133QsptwnbkCegkygaj codes; unclassified (1 source)Acquired absence of organ; Translations: [Acquired absence of other specified parts of digestive tract]Onset: 65-20-3415BvjsdhtoDypyhzqv codes; unclassified (1 source)Spleen absent; 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]Onset: 31-44-3984HkfrkjwsMxwgsvqq codes; unclassified (6 sources)History of unsjuypav76-51-6212HiubwqtwOksgsgwg codes; unclassified (1 source)Sleep disorder; Translations: [Sleep disorder, unspecified]Onset: 70-49-2135XrdazjkcPkkfaytg codes; unclassified (3 sources)Difficulty lmhboqup68-23-9425CgfyrljiJardoznzlk arthritis and related disease (17 sources)Rheumatoid arthritis; Translations: [Rheumatoid arthritis, unspecified]Onset: 693487-67-3618YltykizJdwz and subcutaneous tissue infections (11 sources)Abscess; Translations: [Cutaneous abscess, unspecified]Onset: 19-14-6266KjllprenByodupmwedo; intervertebral disc disorders; other back problems (20 sources)Degeneration of lumbar intervertebral disc; Translations: [Other intervertebral disc degeneration, lumbar region]Onset: 77-78-3411Fdjcjoi Spondylosis; intervertebral disc disorders; other back problems (20 sources)Chronic low back pain; Translations: [Lumbago with sciatica, right side]Onset: 39-70-2863JncesvbsGppizhdkj-related disorders (20 sources)Nicotine dependence, cigarettes, uncomplicated; Translations: [Nicotine dependence]Onset: 83-65-2001UoifwkqNfxeukt on above:Added secondary to documentation in Social History.Added secondary to documentation in Social History.Unclassified (20 sources)Body mass index 20-24 - srimwx41-25-5204Gdlusvcuvpxk (20 sources)Drug therapy qiqjgzd10-09-6285Hwiyotoegavo (20 sources)Peripheral arterial wyrlwuj22-73-0844Zridnllurryf (20 sources)Patient encounter oxkkvs24-47-9677Daiglpilaesj (4 sources)History of closure of yejcrmcjn43-39-0293Wknhahzukhzw (1 source)Personal history of colon polyps, unspecified; Translations: [Personal history of colon polyps, unspecified]Onset: 02-21-2024 Past or Other Problems Problem ClassificationProblemDateDocumented DateEpisodic/ChronicAbdominal hernia (4 sources)Unilateral inguinal hernia, without obstruction or gangrene, recurrent; Translations: [UNI ING HERNW/O OBST/GANGREN RECUR]Onset: 10-19-2016 EpisodicAdministrative/social admission (20 sources)Other reduced mobility; Translations: [Other specified conditions influencing health status]Onset: 284961-49-4741EwbzqqzsNhdevvnknfypo symptoms and ill-defined conditions (18 sources)Acute retention of urine ; Translations: [Other retention of urine] Onset: 732173-11-3691LcgtwjsiPavextr (20 sources)Candidiasis of mouth; Translations: [Candidal stomatitis]Onset: 825471-01-6077IiedsxwfDtpvdzxikdp chest pain (20 sources)Chest pain; Translations: [Chest pain, unspecified]Onset: 09-29-2014 33-11-7070MghvarucAcpse and unspecified benign neoplasm (17 sources)History of polyp of colon; Translations: [History of colonic polyps] Onset: 233268-20-1828SfuvoohvBxxzz circulatory disease (1 source)Other specified symptoms and signs involving the circulatory and respiratory systems; Translations:[Other specified symptoms and signs involving the circulatory and respiratory systems]Onset: 11-35-6019FpcpqwzhSxcav diseases of veins and lymphatics (20 sources)Venous stasis edema of left lower limb; Translations: [Venous insufficiency (chronic) (peripheral)]Onset: 757811-18-4450TusohdkbKluzi nervous system disorders (17 sources)Postoperative pain ; Translations: [Other acute postprocedural pain] Onset: 321887-02-7462PrekwlclVcodm screening for suspected conditions (not mental disorders or infectious disease) (20 sources)Screening for malignant neoplasm of colon done; Translations: [Encounter for screening for malignant neoplasm of colon]Onset: 03-16-2022 Resolved: 94-23-5743LivkqthgCfifi skin disorders (20 sources)Dry skin dermatitis; Translations: [Xerosis cutis]Onset: 04-16-2024 01-39-8080JdkqdrmbWbhthxtg codes; unclassified (20 sources)Tobacco use and exposure - finding; Translations: [Tobacco use] Onset: 31-33-9939XooycdzmWjrykgtk codes; unclassified (2 sources)Other specified health status; Translations: [Other specified health status]Onset: 41-15-3141CxudceraJkvgo (20 sources)Hemorrhagic shock; Translations: [Other shock]Onset: 04-11-2024 96-61-4718TnluedtoOychvljhoypc (1 source)Personal history of colon polyps, unspecified; Translations: [Personal history of colon polyps, unspecified]Onset: 02-21-2024 Results Test NameValueInterpretationReference RangeFacilityHCV by Veda Saldivar 83-51-5712XHD Qnt by NAAT InterpNot detectedNormalNot DetectArkansas Valley Regional Medical CenterComment on above:Result Comment: INTERPRETIVE INFORMATION: HCV by Quantitative NAAT [...] and cellular tissue-based products (HCT/P). Performed By: [facility] [address] [place] [address] Nutrition Worker: Chriss Agudelo MD, PhD CLIA Number: [id number] Qnt by NAAT IU/mLNot detectedNormDenver Health Medical CenterHCV Qnt by NAAT log IU/mLNot detectedNormDenver Health Medical CenterCBC With Platelet No Differentialon 49-68-3415Seuauidumcn distribution width (RBC) [Ratio]18.0 %Critically high11.5-14.5[facility] Comment on above:Performed By: #### CBCND ####[facility] [facility] [phone] (Bld) [Volume fraction]48.3 % Vtppnl85.0-52.0[facility] CenterComment on above:Performed By: #### CBCND ####[facility] [facility] [phone] Hemoglobin (Bld) [Mass/Vol]15.7 g/nXUjgamp79.0-18.0[facility] Comment on above:Performed By: #### CBCND ####[facility] [facility] [phone] (RBC) [Entitic mass]31.6 pgCritically high27.0-31.3MSky Ridge Medical CenterComment on above:Performed By: #### CBCND ####[facility] [place] [address] [phone] MCHC32.5 %Low33.0-37.0[facility] Medical CenterComment on above:Performed By: #### CBCND ####[facility] [facility] [phone] (RBC) [Entitic vol]97.2 fLCritically high79.0-92.2MSky Ridge Medical CenterComment on above:Performed By: #### CBCND ####[facility] [facility] [phone] (Bld) [#/Vol]365 10*3/dZQmxfsd798-247CjwwpArkansas Valley Regional Medical CenterComment on above: Performed By: #### CBCND ####[facility] [facility] [facility] [phone] (Bld) [#/Vol]4.97 10*6/uLNormal4.70-6.10[facility] CenterComment on above:Performed By: #### CBCND ####[facility] [place] [address] [phone] (Bld) [#/Vol]8.7 10*3/uLNormal4.8-10.8[facility] CenterComment on above:Performed By: #### CBCND ####[facility] [phone] Metabolic Panelon 04-44-0402Hjjhnil [Mass/Vol]4.3 g/dLNormal3.5-4.6MSky Ridge Medical CenterComment on above:Performed By: #### CMP #### [facility] [address] [place] [address] CTY [Catalytic activity/Vol]113 U/LCritically bvca83-409MouzuArkansas Valley Regional Medical CenterComment on above:Performed By: #### CMP #### [facility] [address] [place] [address] MMD [Catalytic activity/Vol]10 U/LNormal0-41[facility] CenterComment on above:Performed By: #### CMP #### [facility] [address] [place] [address] Umixy gap [Moles/Vol]10 mmol/LNormal9-15[facility] CenterComment on above:Performed By: #### CMP #### [facility] [address] [place] [address] UVW [Catalytic activity/Vol]13 U/LNormal0-40[facility] CenterComment on above:Performed By: #### CMP #### [facility] [address] [place] [address] Eoghlszmq [Mass/Vol]0.3 mg/dLNormal0.2-0.7[facility] CenterComment on above:Performed By: #### CMP #### [facility] [address] [place] [address] Oszvghi [Mass/Vol]10.0 mg/dLCritically high8.5-9.9[facility] CenterComment on above:Performed By: #### CMP #### [facility] [address] [place] [address] Juqqxgnr [Moles/Vol]104 mmol/EQzeppp85-840UvsksArkansas Valley Regional Medical CenterComment on above:Performed By: #### CMP #### [facility] [address] [place] [place] [address] SH3 [Moles/Vol]29 mmol/OAsckyx41-75UnzsxArkansas Valley Regional Medical Center Comment on above:Performed By: #### CMP #### [facility] [address] [place] [address] Zpnmibcqzp [Mass/Vol]1.10 mg/dLNormal0.70-1.20[facility] CenterComment on above:Performed By: #### CMP #### [facility] [address] [place] [address] IGR95.3Normal>60[facility] CenterComment on above:Result Comment: Pediatric calculator link [email or web address]://www.kidney.org/professionals/kdoqi/gfr_[email or web address] Effective Feb [...] or following therapy that affects renal tubular secretion.Performed By: #### CMP #### [facility] [address] [place] [address] Tylvhqxx (S) [Mass/Vol]3.1 g/dLNormal2.3-3.5[facility] CenterComment on above:Performed By: #### CMP #### [facility] [address] [place] [address] Jstgijc [Mass/Vol]75 mg/wLBiuzdy92-88FdilqSky Ridge Medical Center Comment on above:Performed By: #### CMP #### [facility] [address] [place] [address] Jzfraxevo [Moles/Vol]4.6 mmol/LNormal3.4-4.9[facility] CenterComment on above:Performed By: #### CMP #### [facility] [address] [place] [address] Ajyaxxb [Mass/Vol]7.4 g/dLNormal6.3-8.0[facility] Comment on above:Performed By: #### CMP #### [facility] [address] [place] [address] Ivmmci [Moles/Vol]143 mmol/MSyxvvn934-186QdjsoArkansas Valley Regional Medical CenterComment on above:Performed By: #### CMP #### [facility] [address] [place] [address] Nmdl nitrogen [Mass/Vol]17 mg/dLNormal8-23[facility] CenterComment on above:Performed By: #### CMP #### [facility] [address] [place] [address] NPG w/ Auto Diffon 16-32-4382Sgxufdfkvskx Ql (Bld)PRESENTInvalid Interpretation CodeSelect Medical Cleveland Clinic Rehabilitation Hospital, AvonComment on above:Performed By: #### [id number] #### [facility] Laboratory [address], [place] [address]Zegcehit Absolute0.1 E9/LNormal0.0-0.2Fisher Kennedy Krieger InstituteComment on above:Performed By: #### [id number] #### [facility] [address], [place] [address]Dkwczlnhx/100 WBC (Bld)0.8 %Normal0.0-2.0[facility], AvonComment on above:Performed By: #### [id number] #### [facility] [address], [place] [address]Eeu Absolute0.6 E9/LHigh0.0-0.5FNewark Hospital Comment on above:Performed By: #### [id number] #### [facility] [address], [place] [address]Cglaiyhyyqg/100 WBC (Bld)6.6 %Normal0.0-8.0[facility], AvonComment on above:Performed By: #### [id number] #### [facility] [address], [place] [address]Zwhtsvoriuv distribution width (RBC) [Ratio]21.8 %High10.9-14.2 [facility], AvonComment on above:Performed By: #### [id number] #### [facility] Laboratory [address] [place] [address]Uafxwaygyd (Bld) [Volume fraction]47.8 %Mhejqj98.7-49.0[facility], AvonComment on above:Performed By: #### [id number] #### [facility] [address] [place] [address]Jndrmiimqd (Bld) [Mass/Vol]15.6 g/tBBmyfqg80.5-17.5FNewark HospitalComment on above:Performed By: #### [id number] #### [facility] [address] [place] [address]Kyaku Absolute2.3 E9/LNormal1.0-4.0[facility] Comment on above:Performed By: #### [id number] #### [facility] [address] [place] [address]Wybnocigzgd/100 WBC (Bld)25.5 %Juqpdp31.0-50.0[facility], AvonComment on above:Performed By: #### [id number] #### [facility] Laboratory [address], [place] [address]SZC (RBC) [Entitic mass]31.4 gcSfzqus87.0-34.0[facility], AvonComment on above:Performed By: #### [id number] #### [facility] [address] [place] [address]QABP (RBC) [Mass/Vol]32.7 g/lEDttpgu25.4-36.0[facility], AvonComment on above:Performed By: #### [id number] #### [facility] Laboratory [address] [place] [address]VRB (RBC) [Entitic vol]95.8 jLCexmqq35.0-100.0[facility], AvonComment on above:Performed By: #### [id number] #### [facility] [address], [place] [address]Ezaa Absolute0.9 E9/LNormal0.2-1.0[facility] Comment on above:Performed By: #### [id number] #### [facility] [address], [place] [address]Wrxoqldgj/100 WBC (Bld)10.1 %Normal4.0-14.0[facility], AvonComment on above:Performed By: #### [id number] #### [facility] [address], [place] [address]Ardhyb Absolute5.1 E9/LNormal2.0-7.5FNewark Hospital Comment on above:Performed By: #### [id number] #### [facility] Laboratory [address], [place] [address]Zlzdmn Auto57.0 %Carxnw70.0-75.0[facility] Comment on above:Performed By: #### [id number] #### [facility] [address] [place] [address]Rlizvjcr279.0 E9/FIavnfp835.0-500.0[facility] Comment on above:Performed By: #### [id number] #### [facility] Laboratory [address], [place] [address]Looehlos mean volume (Bld) [Entitic vol]8.9 fLNormal6.4-10.8 [facility], AvonComment on above:Performed By: #### [id number] #### [facility] [address], [place] [address]UUY8.0 E12/LNormal4.3-5.9[facility], AvonComment on above:Performed By: #### [id number] #### [facility] [address], [place] [address]OFQ morphology finding Nom (Bld)SEE MORPHOLOGYInvalid Interpretation CodeSelect Medical Cleveland Clinic Rehabilitation Hospital, AvonComment on above:Performed By: #### [id number] #### [facility] Laboratory [address] [place] [address]AYP9.9 E9/LNormal4.0-11.0[facility], AvonComment on above:Performed By: #### [id number] #### [facility] [address], [place] [address]Famptajpwm 69-41-8146Uveuwkjz Lvl22 ng/hMHki69-665PjzevtSelect Medical Cleveland Clinic Rehabilitation Hospital, AvonComment on above:Performed By: #### [id number] #### [facility] Laboratory [address], [place] [address]Mrqdtyzr 70-83-8207Wyedeh Lvl4.5 ng/mLLow>=6.7FNewark HospitalComment on above:Performed By: #### [id number] #### [facility] Laboratory [address] [place] [address]Njabkn 94-10-6634Xmuh055 microgram/tFKkmjnf00-297VzmwhdSelect Medical Cleveland Clinic Rehabilitation Hospital, AvonComment on above:Performed By: #### [id number] #### [facility] Laboratory [address] [place] [address]Tuxnp Counton 64-31-4252Cikepfunxmxs6.1 %Normal0.5-2.2FNewark HospitalComment on above:Performed By: #### [id number] #### [facility] [address], [place] [address]DTZJ Calculatedon 26-57-4308YGZN909 microgram/aACbxybt218-619 [facility], AvonComment on above:Performed By: #### [id number] #### [facility] [address], [place] [address]Anmhlravwfv [Mass/Vol]239 mg/pSZakeve438-373IkambtSelect Medical Cleveland Clinic Rehabilitation Hospital, AvonComment on above:Performed By: #### [id number] #### [facility] [address], [place] [address]Bqubetwmsc Visit Summaryon 26-10-5313Epfhgbpxmu Visit Summary Ambulatory Visit Summary JASMEET PERDUE :1960 Visit Date:01/13/2025 Ambulatory Visit Instructions Your Diagnosis Restless leg syndrome Hepatitis C antibody detected Cigarette nicotine dependence Overweight BMI 26.0-26.9,adult Your Care Team Attending Physician - Tristen MSN, APPLICATION ADMINISTRATOR-Sherie JONES Primary Care Physician - Tristen AQUINO, APPLICATION ADMINISTRATOR-PROCUREMENT BUYERSherie This Is Your Medications List Misc Prescription [...] fluoroscopic guidance (07/27/2022), Injection of sacroiliac joint usingfluoroscopic guidance (05/11/2022), Injection of nerve root of lumbar spine using fluoroscopic guidance (02/02/2022), Injection of nerve root of lumbar spine using fluoroscopic guidance (07/28/2021),Stent placement (06/04/2021), Diverticulitis (01/06/2021), Lumbar myelogram (11/09/2020), Epidural injection of lumbar spine using fluoroscopic guidance (09/30/2020), Injection of nerve root of lumbar spine using fluoroscopic guidance (07/08/2020), Epidural steroid injection (11/13/2019), Injectionof nerve root of lumbar spine using fluoroscopic [...] Follow-Up Appointments Monday2025 9:20 AM EST With: Tristen AQUINO, BERNARD-ROBERT, Sherie Dash Where: [facility] [address] [place] [address]- You Need to Schedule the Following Appointments Follow Up with Tristen AQUINO, CRICKET, Sherie Dash When: In 6 months Comments: chronic care Where: [address] [place] [phone] Medications What How Much When Why Instructions [...] 1 Tablets By Mouth Every day Iron deficiencyanemia, unspecified Duration: 90 Days Unchanged gabapentin (gabapentin [...] - Any problem that you are no long (more content not included)... [facility] Medicine Office/Clinic Noteon 01-13-2025 [facility]/Clinic [facility] Chief Complaint The patient presents with [...] patient is also following up with a dioramist for hepatitis C management. There are issues with insurance coverage for the prescribed medication, which requires coordination with the dioramist and insurance company. The patient has a history of cigarette smoking and is currently trying to quit. Review of Systems PHQ Score Initial Depression Screen Score: 0 SCORE - Neurological: Reports restless legs syndrome disrupting sleep. - Gastrointestinal: Following up with dioramist for hepatitis C management. - Respiratory: Reports [...] the medication schedule to manage symptoms effectively. Assistedthe patient with his cell phone to put [...] The patient should continue follow-up with the dioramist for hepatitis C management. Coordination with the [...] resources and/or free telephone support such as 4-384-RJZMIUT. Prescription medication to help smoking cessation available [...] and/or worsening of chronic underlying disease states. Encouragedto limit sugary drinks, foods high in sodium, as well as alcohol. Ordered: 1126F Pain severity quantified; no pain present Current tobacco smoker 1034F Functional status assessed 1170F Medication list documented in medical record 1159F Most recent diastolic blood pressure <80 mm Hg 3078F (more content not included)...[facility] CenterComment on above:Result Comment: Electronically Signed By: Tristen AQUINO, APPLICATION ADMINISTRATOR-ROBERT, Sherie Dash\.br\Date and Time Signed: 01/13/25 10:57 EDTHCV Genotype By Sequencingon 60-56-0582RWU Genotype By Izrxgiplaa8g or 1bNoWray Community District HospitalComment on above:Result Comment: Cannot be further subtyped into Type 1a or Type 1b due to high conservation of the 5' untranslated region of the HCV genome. In addition, Type 6 virus may be misclassified as Type 1 in some cases. The Hepatitis C Virus High-Resolution Genotype by Sequencing test ([facility] test code 3704869) provides a higher level of subtype resolution. INTERPRETIVE INFORMATION: Hepatitis C Genotyping Hepatitis C viral RNA is tested using reverse timber poisoner polymerase chain reaction (RT-PCR) to amplify a specific portion of the 5' untranslated region (5' UTR) of the viral genome. The amplified nucleic acid is sequenced bidirectionally using dye-terminator chemistry ([employer]). Sequencing data is compared to a database [...] developed and its performance characteristics determined by [facility]. It has not been cleared or approved by the U.S. Food and Drug Administration. This test was performed in a CLIA-certified laboratory and is intended for clinical purposes. Performed By: [facility] [address] [place] [id number] Nutrition Worker: Chriss Agudelo MD, PhD CLIA Number: [id number] Quant reflex to Genotypeon 07-45-4201FXB Qnt by NAAT InterpDetectedAbnormalNot [facility] Memorial HospitalComment on above: Result Comment: INTERPRETIVE INFORMATION: HCV by Quantitative [...] and cellular tissue-based products (HCT/P). Performed By: [facility] [address] [place] [id number] Nutrition Worker: Chriss Agudelo MD, PhD CLIA Number: [id number] Qnt by NAAT IU/[id number] IU/mLNYuma District HospitalHCV Qnt by NAAT log IU/mL6.02 log IU/mLNYuma District HospitalComment on above:Result Comment: Hepatitis C Virus Genotype by Sequencing added.Hepatitis A Abs, Totalon 49-39-2210Hmfjvzyum A Abs, Total PositiveAbnormilNegLongmont United HospitalComment on above:Result Comment: The positive anti-HAV is consistent with recent or remote Hepatitis A infection or antibody response to HAV vaccination. False positive anti-HAV can occur. Performed By: [facility] [employer] [address] [place] [address] Nutrition Worker: Chriss Agudelo MD, PhD CLIA Number: [id number] B Core Abs, Totalon 61-99-6920Arijeoefb B Core Abs, TotalNegativeNormalNegLongmont United HospitalComment on above: Result Comment: INTERPRETIVE INFORMATION: Hepatitis B Core Ab (Total) This assay should not be used for blood donor screening, associated re-entry protocols, or for screening Human Cells, Tissues and Cellular and Tissue-Based Products (HCT/P). Performed By: [employer] [address] [place] [address] Nutrition Worker: Chriss Agudelo MD, PhD CLIA Number: [id number] With Platelet and Differentialon 16-74-8636Jcrlhfja Slide ReviewIncreWest Springs HospitalComment on above: Performed By: #### CBCWD #### [facility] [address] [place] [address] Tvoes Reviewsee belowValley View HospitalComment on above:Result Comment: Slide review agrees with reported resultsPerformed By: #### CBCWD #### [facility] [address] [place] [place] [address] Ynilsobtqxtr3+[facility] View HospitalComment on above: Performed By: #### CBCWD #### [facility] [address] [place] [address] Aulnchsphoer Ql (Bld)3+[facility] View HospitalComment on above:Performed By: #### CBCWD #### [facility] [address] [place] [address] Xxewdqropc stippling LM Ql (Bld)2+[facility] View HospitalComment on above:Performed By: #### CBCWD #### [facility] [address] [place] [address] Jknrxxjucpu2+[facility] View HospitalComment on above: Performed By: #### CBCWD #### [facility] [address] [place] [address] Apwjpvrbtw2+[facility] HospitalComment on above: Performed By: #### CBCWD #### [facility] [address] [place] [address] Cpclhxycxmxifh6+[facility] HospitalComment on above: Performed By: #### CBCWD #### [facility] [address] [place] [place] [address] Iovmkl Cells2+[facility] View HospitalComment on above: Performed By: #### CBCWD #### [facility] [address] [place] [address] Tfyveuuhq (Bld) [#/Vol]0.1 10*3/uLNormal0.0-0.2MSky Ridge Medical CenterComment on above:Performed By: #### CBCWD #### [facility] [address] [place] [address] Iasmdiksv/100 WBC (Bld)0.8 %[facility] Comment on above:Performed By: #### CBCWD #### [facility] [address] [place] [address] Igcrpueuswl (Bld) [#/Vol]0.2 10*3/uLNormal0.0-0.7[facility] CenterComment on above:Performed By: #### CBCWD #### [facility] [address] [place] [address] Onbyvyssedv/100 WBC (Bld)2.3 %[facility] Comment on above:Performed By: #### CBCWD #### [facility] [address] [place] [address] Kdxyvcfpziz distribution width (RBC) [Ratio]28.0 %Critically high 11.5-14.5[facility] CenterComment on above:Performed By: #### CBCWD #### [facility] [address] [place] [address] Ypsuzyelhx (Bld) [Volume fraction]40.3 %Low42.0-52.0[facility] CenterComment on above:Performed By: #### CBCWD #### [facility] [address] [place] [address] Xxrroutjah (Bld) [Mass/Vol]12.2 g/dLLow14.0-18.0[facility] CenterComment on above:Performed By: #### CBCWD #### [facility] [address] [place] [address] Pyttyzyzexl (Bld) [#/Vol]1.4 10*3/uLNormal1.0-4.8[facility] CenterComment on above:Performed By: #### CBCWD #### [facility] [address] [place] [address] Hccbfcqsqvp/100 WBC (Bld)15.5 %NormalArkansas Valley Regional Medical Center Comment on above:Performed By: #### CBCWD #### [facility] [address] [place] [address] ZJI (RBC) [Entitic mass]26.8 pgLow27.0-31.3MSky Ridge Medical CenterComment on above:Performed By: #### CBCWD #### [facility] [address] [place] [address] EFTR77.3 %Low33.0-37.0[facility] CenterComment on above: Performed By: #### CBCWD #### [facility] [address] [place] [address] ONW (RBC) [Entitic vol]88.6 vLKjcaac73.0-92.2[facility] CenterComment on above:Performed By: #### CBCWD #### [facility] [address] [place] [address] Tfttgurvo (Bld) [#/Vol]0.8 10*3/uLNormal0.2-0.8[facility] CenterComment on above:Performed By: #### CBCWD #### [facility] [address] [place] [address] Dzdwwxnlh/100 WBC (Bld)8.9 %[facility] Comment on above:Performed By: #### CBCWD #### [facility] [address] [place] [address] Ctjmpiylgrt (Bld) [#/Vol]6.4 10*3/uLNormal1.4-6.5[facility] CenterComment on above:Performed By: #### CBCWD #### [facility] [address] [place] [address] Yruhrrjwnmx/100 WBC (Bld)72.3 %[facility] Comment on above:Performed By: #### CBCWD #### [facility] [address] [place] [address] Dweenbzea (Bld) [#/Vol]426 10*3/uLCritically ohwe417-594BcvytArkansas Valley Regional Medical CenterComment on above:Performed By: #### CBCWD #### [facility] [address] [place] [address] QON (Bld) [#/Vol]4.55 10*6/uLLow4.70-6.10[facility] CenterComment on above:Performed By: #### CBCWD #### [facility] [address] [place] [address] LYB (Bld) [#/Vol]8.8 10*3/uLNormal4.8-10.8[facility] CenterComment on above:Performed By: #### CBCWD #### [facility] [address] [place] [address] Ezohyjlycjfyp Metabolic Panelon 95-23-8126Pcdlbgc [Mass/Vol]4.2 g/dL Normal3.5-4.6MSky Ridge Medical CenterComment on above:Performed By: #### CMP #### [facility] [address] [place] [address] PUD [Catalytic activity/Vol]101 U/IVibdjr85-990VltgpArkansas Valley Regional Medical CenterComment on above:Performed By: #### CMP #### [facility] [address] [place] [address] JAF [Catalytic activity/Vol]19 U/LNormal0-41[facility] CenterComment on above:Performed By: #### CMP #### [facility] [address] [place] [address] Feeoe gap [Moles/Vol]11 mmol/LNormal9-15[facility] CenterComment on above:Performed By: #### CMP #### [facility] [address] [place] [place] [address] FUL [Catalytic activity/Vol]19 U/LNormal0-40[facility] CenterComment on above:Performed By: #### CMP #### [facility] [address] [place] [address] Vvpkkamvi [Mass/Vol]0.4 mg/dLNormal0.2-0.7[facility] CenterComment on above:Performed By: #### CMP #### [facility] [address] [place] [address] Tcelddp [Mass/Vol]9.2 mg/dLNormal8.5-9.9[facility] CenterComment on above:Performed By: #### CMP #### [facility] [address] [place] [place] [address] Llmxpofo [Moles/Vol]104 mmol/XSixxbd70-600QjtheArkansas Valley Regional Medical CenterComment on above:Performed By: #### CMP #### [facility] [address] [place] [address] OH3 [Moles/Vol]26 mmol/KYrztlk06-30CwkkmArkansas Valley Regional Medical Center Comment on above:Performed By: #### CMP #### [facility] [address] [place] [address] Xzsukgauoy [Mass/Vol]1.05 mg/dLNormal0.70-1.20[facility] Medical CenterComment on above:Performed By: #### CMP #### [facility] [address] [place] [address] NTM84.7Normal>60Ar[facility] Regional Medical CenterComment on above:Result Comment: Pediatric calculator link https://www.kidney.org/professionals/kdoqi/gfr_[email or web address] Effective Feb [...] or following therapy that affects renal tubular secretion.Performed By: #### CMP #### [facility] [address] [place] [address] Ocpihpgl (S) [Mass/Vol]2.8 g/dLNormal2.3-3.5Ar[facility] Regional Medical CenterComment on above:Performed By: #### CMP #### [facility] [address] [place] [address] Vbwsprj [Mass/Vol]93 mg/kMIblosv37-96JdpfuSky Ridge Medical Center Comment on above:Performed By: #### CMP #### [facility] [address] [place] [address] Fcoecgxqy [Moles/Vol]3.9 mmol/LNormal3.4-4.9Ar[facility] Medical CenterComment on above:Performed By: #### CMP #### [facility] [address] [place] [address] Mdfquxs [Mass/Vol]7.0 g/dLNormal6.3-8.0[facility] Comment on above:Performed By: #### CMP #### [facility] [address] [place] [address] Nyltda [Moles/Vol]141 mmol/RXxemkq758-267HxrlmArkansas Valley Regional Medical CenterComment on above:Performed By: #### CMP #### [facility] [address] [place] [address] Lhef nitrogen [Mass/Vol]11 mg/dLNormal8-23Ar[facility] Regional Medical CenterComment on above:Performed By: #### CMP #### [facility] [address] [place] [address] OGB Ag/Abon 75-36-1969XID Ag/AbNon-ReactiveNocone health wesley long hospitalNRArkansas Valley Regional Medical CenterComment on above:Result Comment: No laboratory evidence of HIV infection. If acute HIV infection is suspected, consider testing for HIV-1 RNA. Performed at [facility], [address] [place] [address] .Hep B Surf Abon 29-87-0449Ejq B Surf Ab<3.50Normal<10Ar[facility] Regional Medical CenterComment on above:Result Comment: REFERENCE RANGE: <10.0 NON-REACTIVE/NOT IMMUNE >=10.0 REACTIVE/IMMUNE Performed at [facility], [address] [place] [address] .Hepatitis B Surface Agon 55-75-8475Tpazmczxa B Surface Ag Interp Non-ReactiveNoWray Community District HospitalComment on above:Performed By: #### HBSG #### [facility] [address] [place] [address] DZ FIBROSCANon 70-29-9128QZ FIBROSCANTable formatting from the original result was not included. Velocity Controlled Transient Elastography (Fibroscan) City Weighmaster: Leonel Holloway Attending: Keith King MD Patient was identified via name and . Jasmeet Perdue presents to endoscopy suite for VCTE. Referring Physician: Dr. King Diagnosis: Hep C Probe Used: M Pre-procedure Checklist: Presence of ascites: No Fasting for at least two hours: Yes Alcohol Use: No History of heart failure: No @OYVZZIH74UVD(ALT:3,AST:3,GGT:3,ALKPHOS:3,BILITOT:3)@ @RESUFAST(PLT:3)@ Findings: Median kPa: 6.7 IQR/med (%): 7 Controlled Attenuation Paramater (CAP) Median (dB/m): 261 IQR (%): 24 Interpretation: Appropriate reading, Based on LSM of 6.7 Kpa, NO evidence of advanced fibrosis noted Fibrosis stage 0-I ( F0-1) Based on CAP of 261 db/M, Mild steatosis (< 33%) - S1. Clinical correlation indicated Keith King MD [facility] Interpreted by: Keith King MD Signed by: Keith King MD 01/08/25 Final resultNoWray Community District Hospital.HCV RT-PCR, Quant (Non-Graph)on 83-41-5907HFU rwj074.691Invalid Interpretation [facility] Comment on above:Performed By: #### [id number] #### [facility] [address], [place] [address]Rwhmdzdkr C Tecztlldijfr536624 International_Unit/mLInvalid Interpretation [facility] HospitalComment on above:Performed By: #### [id number] #### [facility] [address], [place] [address]Rdxvoatluuympl:CommentInvalid Interpretation [facility] HospitalComment on above:Result Comment: Positive HCV antibody screen with the presence of HCV RNA is consistent with active infection. Performed at: [address] [id number] MD Cj Vázquezformed By: #### [id number] #### [facility] [address], [place] [address]Scpp Information:CommentInvalid Interpretation [facility] HospitalComment on above:Result Comment: The quantitative range of this assay is 15 IU/mL to 100 million IU/mL.Performed By: #### [id number] #### [facility] [address], [place] [address]VCO Antibody RFX to Quant PCRon 93-54-8740ZMN AbReactive AbnormalNon ReactiveSelect Medical [facility] Clinic Rehabilitation Hospital, AvonComment on above:Result Comment: Performed at: [address] [id number] PhD Haroldo DominguezPerformed By: #### [id number] #### [facility] [address], [place] [address]Vjxfxqpllk 05-90-9036Htjcgumt Lvl5 ng/zVAps87-920LoetswSelect Medical Cleveland Clinic Rehabilitation Hospital, AvonComment on above:Performed By: #### [id number] #### [facility] [address], [place] [address]Ncxibqvd 13-44-9718Omkkgo Lvl10.0 ng/mLNormal>=6.7FNewark HospitalComment on above:Performed By: #### [id number] #### [facility] [address] [place] [address]Nbontc 08-60-3345Hwey39 microgram/bWBek56-241RkswhySelect Medical [facility] Clinic Rehabilitation Hospital, AvonComment on above:Performed By: #### [id number] #### [facility] [address], [place] [address]Ggeze Counton 46-47-3794Louucdmcjclh5.2 %Normal0.5-2.2FNewark HospitalComment on above:Result Comment: Reticulocyte count has been corrected for anemiaPerformed By: #### [id number] #### [facility] [address], [place] [address]UIKI Calculatedon 40-65-2672GUWL647 microgram/aBClix775-090 [facility], AvonComment on above:Performed By: #### [id number] #### [facility] [address], [place] [address]Ielowuuoica [Mass/Vol]337 mg/aOTxwcvt355-632JyhgcsSelect Medical Cleveland Clinic Rehabilitation Hospital, AvonComment on above:Performed By: #### [id number] #### [facility] [address], [place] [address]Orb B12on 59-37-4764Coxholkwg (Vitamin B12) [Mass/Vol]548 pg/mL Qzcshl58-4301JkxyvuSelect Medical Cleveland Clinic Rehabilitation Hospital, AvonComment on above:Performed By: #### [id number] #### [facility] [address], [place] [address]Dzofpaxljh Visit Summaryon 61-01-2819Exsonijzym Visit Summary Ambulatory Visit Summary JASMEET PERDUE :1960 Visit Date:12/02/2024 Ambulatory Visit Instructions Your Diagnosis Benign essential HTN Combined hyperlipidemia Embolism of iliac artery Restless leg syndrome Cigarette nicotine dependence Hoarseness of voice Difficulty sleeping Overweight BMI 26.0-26.9,adult Medication management Encounter for screening for cardiovascular disorders Screening for viral disease Diabetes mellitus screening Prostate cancer screening Lipid screening Your Care Team Attending Physician - Tristen MSN, APPLICATION ADMINISTRATOR-PROCUREMENT BUYERSherie Primary Care Physician - Tristen MSN, APPLICATION ADMINISTRATOR-PROCUREMENT BUYERSherie This Is Your Medications List ropinirole (ropinirole [...] fluoroscopic guidance (07/27/2022), Injection of sacroiliac joint usingfluoroscopic guidance (05/11/2022), Injection of nerve root of lumbar spine using fluoroscopic guidance (02/02/2022), Injection of nerve root of lumbar spine using fluoroscopic guidance (07/28/2021),Stent placement (06/04/2021), Diverticulitis (01/06/2021), Lumbar myelogram (11/09/2020), Epidural injection of lumbar spine using fluoroscopic guidance (09/30/2020), Injection of nerve root of lumbar spine using fluoroscopic guidance (07/08/2020), Epidural steroid injection (11/13/2019), Injectionof nerve root of lumbar spine using fluoroscopic [...] Follow-Up Appointments Monday 8:20 AM EDT With: Tristen AQUINO, Sherie HARLEY Where: [address] [address]- You Need to Schedule the Following Appointments Follow Up with Tristen AQUINO, Sherie HARLEY When: In 6 weeks Comments: RLS Where: [address] [place] [phone] Medications What How Much When Why Instructions Changed ropinirole (ropinirole 3 mg Tab) 1 Tablets By Mouth 3 times a day Pickup at [facility] Unchanged atorvastatin (atorvastatin 20 mg Tab) [...] Tablets By Mouth Every day Contact prescribing physicianif questions or concerns Unchanged gabapentin (gabapentin 800 mg Tab) 1 Tablets By Mouth 3 times a day Contact prescribing physician if questions or concerns Unchanged metoprolol (Metoprolol succinate 25 mg ER Tablet) Contact prescribing physician if questions or concerns Unchanged Misc Prescription (baclofen 10 mg tablet) 0 Contact prescribing physician if questions orconcerns Unchanged Misc Prescription (handicap placard) See instructions Intermittent claudication of left lower extremity due to atherosclerosis used to access [employer] parking places, limited 5 years, exp: 2029 Contact prescribing physician if questions or concerns Unchanged pantoprazole (Protonix 40 mg Tab-DR) 1 Tablets By Mouth Every day Contact prescribing physician if questions or concerns Pharmacy Information [facility]: [address], [place] [phone] Allergies No Known Allergies No Known Medication Allergies Problems Ongoing - Any problem that you are currently receiving treatment for. AAA (abdominal aortic a (more content not included)...NormalSelect Medical Cleveland Clinic Rehabilitation Hospital, AvonCB w/ Auto Diffon 28-40-5573Zpknrfxqratu Ql (Bld)PRESENTInvalid Interpretation [facility] HospitalComment on above:Performed By: #### [id number] #### [facility] [address], [place] [address]Crsibock Abs Man0.0 E9/LNormal0.0-0.2FNewark HospitalComment on above:Performed By: #### [id number] #### [facility] [address], [place] [address]Ynsheczjv/100 WBC (Bld)0.0 %Normal0.0-2.0[facility], AvonComment on above:Performed By: #### [id number] #### [facility] [address], [place] [address]Kvs Abs Man0.2 E9/LNormal0.0-0.5FNewark Hospital Comment on above:Performed By: #### [id number] #### [facility] [address] [place] [address]Epplzkwwlbt/100 WBC (Bld)2.0 %Normal0.0-8.0[facility], AvonComment on above:Performed By: #### [id number] #### [facility] [address] [place] [address]JebisifyubszgPLDDIDCHqtjvmy Interpretation [facility] HospitalComment on above:Performed By: #### [id number] #### [facility] [address] [place] [address]Kywbd Abs Man3.2 E9/LNormal1.0-4.0[facility] Comment on above:Performed By: #### [id number] #### [facility] [address] [place] [address]Lfusdcqjnzo/100 WBC (Bld)36.0 %Xawrcj58.0-50.0[facility], AvonComment on above:Performed By: #### [id number] #### [facility] [address] [place] [address]Owei Abs Man0.6 E9/LNormal0.2-1.0[facility] Comment on above:Performed By: #### [id number] #### [facility] [address] [place] [address]Klknfdwgm/100 WBC (Bld)7.0 %Normal4.0-14.0[facility], AvonComment on above:Performed By: #### [id number] #### [facility] [address] [place] [address]Lqpovx Abs Man5.0 E9/LInvalid Interpretation [facility] HospitalComment on above:Performed By: #### [id number] #### [facility] [address] [place] [address]OCOD Man2.0 %High0.0-0.0[facility], AvonComment on above:Performed By: #### [id number] #### [facility] [address], [place] [address]BZX morphology finding Nom (Bld)SEE MORPHOLOGYInvalid Interpretation CodeSelect Medical Cleveland Clinic Rehabilitation Hospital, AvonComment on above:Performed By: #### [id number] #### [facility] [address], [place] [address]Ccxo Man55.0 %Kooqgq73.0-75.0[facility], AvonComment on above:Performed By: #### [id number] #### [facility] [address], [place] [address]Azvhwlracty distribution width (RBC) [Ratio]19.9 %High10.9-14.2 [facility] Hospital, AvonComment on above:Performed By: #### [id number] #### [facility] [address], [place] [address]Xsgwjzowqj (Bld) [Volume fraction]32.2 %Low37.7-49.0[facility], AvonComment on above:Performed By: #### [id number] #### [facility] [address], [place] [address]Nmxyipzmnw (Bld) [Mass/Vol]9.9 g/dLLow13.5-17.5FNewark HospitalComment on above:Performed By: #### [id number] #### [facility] [address], [place] [address]WRD (RBC) [Entitic mass]24.5 pgLow27.0-34.0[facility], AvonComment on above:Performed By: #### [id number] #### [facility] [address], [place] [address]GLZC (RBC) [Mass/Vol]30.8 g/dLLow31.4-36.0[facility], AvonComment on above:Performed By: #### [id number] #### [facility] [address], [place] [address]ZCM (RBC) [Entitic vol]79.5 fLLow80.0-100.0[facility], AvonComment on above:Performed By: #### [id number] #### [facility] [address] [place] [address]Tvoeoevr875.0 E9/HSphi270.0-500.0[facility] Comment on above:Performed By: #### [id number] #### [facility] [address] [place] [address]Skfunzyn mean volume (Bld) [Entitic vol]8.3 fLNormal6.4-10.8 [facility], AvonComment on above:Performed By: #### [id number] #### [facility] [address] [place] [address]UEF5.1 E12/LLow4.3-5.9[facility], AvonComment on above:Performed By: #### [id number] #### [facility] [address] [place] [address]WLX9.0 E9/LNormal4.0-11.0[facility], AvonComment on above:Performed By: #### [id number] #### [facility] [address] [place] [address]UIQtj 60-67-2968Qhoyctn [Mass/Vol]4.1 g/dLNormal3.3-5.0[facility], AvonComment on above:Performed By: #### [id number] #### [facility] [address] [place] [address]Lrdpypb/Globulin [Mass ratio]1.4 {ratio}Normal1.1-2.2FNewark HospitalComment on above:Performed By: #### [id number] #### [facility] [address] [place] [address]Ozt Phos86 Int._Unit/AXerqoc51-15PjxfybSelect Medical [facility] Clinic [facility] Comment on above:Performed By: #### [id number] #### [facility] [address] [place] [address]AXU78 Int._Unit/LNormal6-46[facility], AvonComment on above:Performed By: #### [id number] #### [facility] [address], [place] [address]Dnxli gap [Moles/Vol]10 mmol/LNormal6-16[facility], AvonComment on above:Performed By: #### [id number] #### [facility] [address], [place] [address]ECG87 Int._Unit/LNormal5-43[facility], AvonComment on above:Performed By: #### [id number] #### [facility] [address], [place] [address]Ffnh Total0.5 mg/dLNormal0.0-1.1FNew[facility] Hospital Comment on above:Performed By: #### [id number] #### [facility] [address], [place] [address]IQG/Creat Ratio12 No VwrhkIuemcq16-46PgkgkdSelect Medical Cleveland Clinic Rehabilitation Hospital, AvonComment on above:Performed By: #### [id number] #### [facility] [address], [place] [address]Uzqfhtv [Mass/Vol]8.9 mg/dLNormal8.9-11.1FNewark HospitalComment on above:Performed By: #### [id number] #### [facility] [address], [place] [address]Fqjjzqha [Moles/Vol]104 mmol/MGsablj464-308ObekdsSelect Medical Cleveland Clinic Rehabilitation Hospital, AvonComment on above:Performed By: #### [id number] #### [facility] [address], [place] [address]LF0 [Moles/Vol]32 mmol/CQhha84-84JajzprSelect Medical [facility] Clinic [facility] Comment on above:Performed By: #### [id number] #### [facility] [address], [place] [address]Gelarafmwv [Mass/Vol]1.0 mg/dLNormal0.5-1.3FNewark HospitalComment on above:Performed By: #### [id number] #### [facility] [address], [place] [address]Puxmgmvr (S) [Mass/Vol]3.0 g/dLNormal1.4-4.0[facility], AvonComment on above:Performed By: #### [id number] #### [facility] [address], [place] [address]Jkyuzac [Mass/Vol]88 mg/nWBdgfrd03-804SdazfaSelect Medical Cleveland Clinic Rehabilitation Hospital, AvonComment on above:Performed By: #### [id number] #### [facility] [address], [place] [address]Zixudjsdf [Moles/Vol]3.5 mmol/LNormal3.5-5.3FNewark HospitalComment on above:Performed By: #### [id number] #### [facility] [address], [place] [address]Kvzczqr [Mass/Vol]7.1 g/dLNormal6.0-7.8[facility], AvonComment on above:Performed By: #### [id number] #### [facility] [address], [place] [address]Jdoozw [Moles/Vol]142 mmol/IJapykp851-685RtrdnnSelect Medical Cleveland Clinic Rehabilitation Hospital, AvonComment on above:Performed By: #### [id number] #### [facility] [address], [place] [address]Ipkv nitrogen [Mass/Vol]12 mg/dLNormal5-21[facility], AvonComment on above:Performed By: #### [id number] #### [facility] [address], [place] [address]Fvopru Medicine Office/Clinic Noteon 34-25-0400Ocxooi Medicine Office/Clinic NoteFasouthcoast behavioral health hospital Medicine Office/Clinic Note Chief Complaint The patient reports worsening [...] clinic: Dr Andrade Cardiovascular surgeon: Dr Yan Software Qa System Specialist: Dr Hall Games Manager: NOMJaskaran LABS Cr/eGFR: eGFR: 95 mL/min/1.73 [...] CBC w/ Auto Diff Comprehensive Metabolic Panel C (more content not included)...NormalSelect Medical Cleveland Clinic Rehabilitation Hospital, AvonComment on above:Result Comment: Electronically Signed By: Tristen AQUINO, APPLICATION ADMINISTRATOR-ROBERT, Sherie Dash\.br\Date and Time Signed: 12/02/24 10:55 EDTLipid Panelon 12-02-2024 Cholesterol [Mass/Vol]134 mg/rYXgzhzn349-372IchdmxSelect Medical [facility] Clinic Rehabilitation Hospital, AvonComment on above:Performed By: #### [id number] #### [facility] [address], [place] [address]Snkmsygmmrt in HDL [Mass/Vol]48 mg/dLInvalid Interpretation CodeSelect Medical Cleveland Clinic Rehabilitation Hospital, AvonComment on above:Result Comment: '>= 60 LOW RISK' '<= 40 HIGH RISK'Performed By: #### [id number] #### [facility] [address], [place] [address]Cpecvoomkap in LDL [Mass/Vol]84 mg/dLNormal<=129[facility], AvonComment on above:Performed By: #### [id number] #### [facility] [address], [place] [address]Wkyylvysure in VLDL [Mass/Vol]10 mg/dLNormal7-40[facility], AvonComment on above:Performed By: #### [id number] #### [facility] [address], [place] [address]Zlcgzvagxvmk [Mass/Vol]48 mg/dLNormal<=149[facility], AvonComment on above:Performed By: #### [id number] #### [facility] [address], [place] [address]IKO Screen, Totalon 15-95-0735KTR Scrn Tot.1.0 ng/mLNormal 0.1-3.5Fisher [facility] Krieger InstituteComment on above:Result Comment: The concentration of PSA determined by different manufacturers can vary due to diffe rences in assay methods and reagent specificity. Values obtained from different assay methods cannot be used interchangeably. The methodology used for this result was chemiluminescence using [employer] Access Hybritech PSA reagent.Performed By: #### [id number] #### [facility] [address], [place] [address]eLEJtk 89-44-7744zTVV53 mL/min/1.73 l4Wazygp>=59[facility] Krieger InstituteComment on above:Performed By: #### [id number] #### [facility] [address], [place] [address]Nvwumd-Vjcl 82-17-4745Yaaxfn-[id number] Jasmeet Perdue 1960 M Date Provider Department Center 11/12/2024 [facility] SURG [place] No family history on file Level of Service:32822 GA OFFICE/OUTPATIENT ESTABLISHED MOD MDM 30 MIN Reason for Visit and Comments: Follow-up [396671]NormalCleveland Clinic South Pointe HospitalCOAGULATIONOrdered By: Harleen Ayala on 40-14-0957pXUZ Coag (PPP) [Time]28.9 nGczphc89.1 - 36.5 second(s)[facility] Auto CoagComment on above:Interpretive Data: Parameter 15 days - 4 weeks 1 [...] the same coagulation reagent and instrumentation as [facility]. Currently there are no coagulation studies available worldwide for children to 14 days, andno normal ranges. Heparin therapeutic range (represented by Anti-Factor Xa activity of 0.2 - 0.4 U/mL) corresponds to PTT of 56.6 - 109.0 sec.PT Coag (PPP) [Time]12.6 sHigh9.4 - 12.5 second(s)[facility] Auto CoagComment on above:Interpretive Data: 15 days - 4 weeks 1 - 5 months 6 -11 months 1 5 years 6 10 years 11 -17 years Mean: 11.2 (9.5 12.6) Mean: 11.0 (9.7 12.8) Mean: 11.0 (9.8 13.0) Mean: 11.3 (9.9 13.4) Mean: 11.7 (10.0 14.6) Mean: 11.8 (10.0 - 14.1) Pediatric Reference ranges were obtained from a study by Willy Paige et al. prepared from 1437 samples obtained at 7 different centers using the same coagulation reagent and instrumentation as [facility]. Currently there are no coagulation studies available worldwide for children to 14 days, andno normal ranges.CT Spine Lumbar w/ Contraston [id number] Spine Lumbar w/ ContrastExam Date/Time: 11/06/2024 09:37 EDT Reason for Exam: [...] Noe Yousif MD Transcribed by: MEDHAT Technologist: Kimmy [facility]rieger InstituteCT Spine Thoracic w/ Contraston [id number] Spine Thoracic w/ ContrastExam Date/Time: 11/06/2024 09:38 EDT Reason for Exam: [...] REPORT Dictated: 11/06/2024 10:24 am Noe Yousif MD. Signed (Electronic Signature): 11/06/2024 10:24 am Signed by: Noe Yousif MD Transcribed by: MEDHAT Technologist: CaritoAtrium Health Wake Forest Baptist Medical Centeraracelis Kennedy K[facility] InstituteMain OR PACU II Recordon [id number] OR PACU II RecordMain OR PACU II Record PACU Phase II Document Type FT Summary Primary Physician: NONE, XXXX Finalized Date/Time: 11/06/24 15:30:06 Pt. Name: JASMEET PERDUE/Sex: 1960 Male Med Rec #: [id number] Physician: DAYAN MARTINEZ MD Financial #: [id number] Pt. Type: O Room/Bed: / Admit/Disch: 11/06/24 [...] and monitors body temperature Evaluates postoperative respiratory statusEvaluates postoperative cardiac status Evaluates postoperative neurological status [...] individualized perioperative plan of care The patient's rightto privacy is maintained The patient's value system, [...] with or improved from baseline levels established preoperativelyThe patient's cardiovascular status is consistent with or improved from baseline levels established preoperatively The patient's neurological status is consistent with or improved from baseline levels established preoperatively The patient demonstrates and/or reports adequate pain control throughout the perioperative period The patient received appropriate medication(s), safely administered during the perioperativeperiod Finalized By: Shirley Martínez RN Document Signatures Signed By: Shirley Martínez RN 11/06/24 15:30[facility] Center[facility] OR Preoperative Recordon [phone] OR Preoperative RecordMain OR Preoperative Record Holding Area Document Type FT Summary Primary Physician: NONE, XXXX Finalized Date/Time: 11/06/24 07:55:57 Pt. Name: JASMEET PERDUE/Sex: 1960 Male Med Rec #: [id number] Physician: DAYAN MARTINEZ MD Financial #: [id number] Pt. Type: O Room/Bed: / Admit/Disch: 11/06/24 [...] or her perioperative plan of care The patient'sright to privacy is maintained Surgery Checklist FT [...] day? Patient states Yes Comment - Adult Brooke () postop adult Supervision supervision available Case Cancelled in No Holding Area see comments below for reason Last Modified By: Sangita Castro RN 11/06/24 07:55:50 Finalized By: Sangita Castro RN Document Signatures Signed By: Sangita Castro RN 11/06/24 07:55[facility] CenterPT & PTT Ordered By: Harleen Ayala on [id number] Coag (PPP) [Relative time]1.12 {INR} Invalid Interpretation [facility] Auto CoagComment on above:Interpretive Data: INR results are specifically intended to assess patients stabilized on long-term Anticoagulation therapy suggested INR s Less Intensive Anticoagulation 2.0 3.0 Conventional Range 3.0 4.5Order Comment: ONLY if patient has been on blood thinners and has not had labs in past week.Result Comment: INR results are specifically intended to assess patients stabilized on long-term Anticoagulation therapy suggested INR???s ???Less Intensive Anticoagulation??? 2.0 ??? 3.0 Conventional Range 3.0 ??? 4.5Performed By: #### [id number] #### [facility] [address], [place] [address]IE & PTTon 84-25-0599GP78.6 second(s)High9.4-12.5FNewark HospitalComment on above:Order Comment: ONLY if patient has been on blood thinners and has not had labs in past week.Result Comment: 15 days - 4 weeks 1 - 5 months 6 -11 months 1 ??? 5 years 6 ??? 10 years 11 -17 years Mean: 11.2 (9.5 ??? 12.6) Mean: 11.0 (9.7 ??? 12.8) Mean: 11.0 (9.8 ??? 13.0) Mean: 11.3 (9.9 ??? 13.4) Mean: 11.7 (10.0 ??? 14.6) Mean: 11.8 (10.0 - 14.1) Pediatric Reference ranges were obtained from a study by birdie Diez. prepared from 1437 samples obtained at 7 different centers using the same coagulation reagent and instrumentation as [facility]. Currently there are no coagulation studies available worldwide for children to 14 days, andno normal ranges.Performed By: #### [id number] #### Pancho [facility] [address], [place] [address]OHY60.9 second(s)Afonmk78.1-36.5FNewark Hospital Comment on above:Order Comment: ONLY if patient has been on blood thinners and has not had labs in past week.Result Comment: Parameter 15 days - 4 weeks 1 - 5 months 6 - 11 months 1 - 5 years 6 - 10 years 11 - 17 years PTT Mean: 35.4 (27.6-45.6) Mean: 33.5 (24.8-40.7) Mean: 32.4 (25.1-40.7) Mean: 31.6 (24.0-39.2) Mean: 31.6 (26.9-38.7) Mean: 31.0 (24.6-38.4) Pediatric Reference ranges were obtained from a study by Willy Manquin, et al. prepared from 1437 samples obtained at 7 different centers using the same coagulation reagent and instrumentation as [facility]. Currently there are no coagulation studies available worldwide for children to 14 days, andno normal ranges. Heparin therapeutic range (represented by Anti-Factor Xa activity of 0.2 - 0.4 U/mL) corresponds to PTT of 56.6 - 109.0 sec.Performed By: #### [id number] #### [facility] [address], [place] [address]VG Myelogram 2 or More Regionson [id number] Myelogram 2 or More RegionsExam Date/Time: 11/06/2024 09:35 EDT Reason for Exam: [...] Noe Yousif MD Transcribed by: MEDHAT Technologist: [facility] Medical CenterVascular duplex carotid bilateralon 29-37-1381Cyju CCA dist VYK368 cm/sBon Secours Mercy HealthLeft CCA mid PSV97.1 cm/sBon Secours Mercy HealthLeft CCA prox UEN543 cm/s [facility] HealthLeft ECA VLU108 cm/sBon Secours Mercy HealthLeft ICA dist EDV27.4 cm/sBon Secours Mercy HealthLeft ICA dist PSV88.4 cm/sBon Secours Mercy HealthLeft ICA mid PSV95.9 cm/sBon Secours Mercy HealthLeft ICA prox PSV 108 cm/sBon Secours Mercy HealthLeft ICA/CCA PSV1.11[facility] Right cca dist PSV87 cm/sBon [facility]ours Mercy HealthRight CCA mid PSV98.2 cm/sBon Secours Mercy HealthRight CCA prox KPD206 cm/sBon [facility] Mercy HealthRight ECA SHX430 cm/sBon [facility] Mercy HealthRight ICA dist PSV79.3 cm/sBon [facility]ours Mercy HealthRight ICA mid IGC785 cm/sBon [facility]ours Mercy HealthRight ICA prox EDV31 cm/s [facility] HealthRight ICA prox VZW286 cm/sBon [facility]ours Mercy HealthRight ICA/CCA PSV2.06[facility] Mer[facility] HealthRight vertebral PSV59.2 cm/sBon Secours Mercy HealthMild (<50%) stenosis in the right internal carotid [...] External Carotid Artery: Patent. Vertebral Artery: Occluded. Recruitment Officer Details A williamson scale, color Doppler imaging and spectral Doppler analysis ultrasound was performed. During the study longitudinal and transverse views were obtained. Pulsed wave doppler was performed. Overall the study quality was good.[facility] Stafford HospitalRadiology Study observation (narrative)Jamison [facility] Medical CenterConsulton [id number] Jasmeet Perdue 1960 M Date Provider Department Center 10/21/2024 Tere0-DAYAN MARTINEZ [facility] SURG Second Fl No family history on file Level of Service:91921 GA OFFICE/OUTPATIENT NEW MODERATE MDM 45 MINUTES Reason for Visit and Comments: Consult [484][facility] DaytonXR ABDOMEN (KUB) (SINGLE AP VIEW)on 41-74-4257IC ABDOMEN (KUB) (SINGLE AP VIEW)EXAM: XR ABDOMEN (KUB) (SINGLE AP VIEW) HISTORY: [...] Signed by: Luis Luke DO 09/21/24 Final resultNormalMerTrinity Health System 1 Extremeityon [id number] radiculopathy on the left, [facility] HealthcareNVC 5-6 Nerveson 26-29-4704V1 radiculopathy on the left, [facility] Population Healthon 09-42-5030RatxvqzxezAmerican Academic Health System Case Information Case Priority: None Programs: -- Referral Source: Cashier And Waiter/Waitress Referral Reason: Care coordination Case Type: Transition Care Management Risk Score: -- Case Status: Enrolled (July 05, 2024) Date Assigned: July 04, 2024 Assigned By: Alla Osuna R.N. Date Enrolled: July 05, 2024 Assigned Primary Personnel: Alla Osuna R.N. 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 Ambulatory Visit Summaryon [id number] Visit SummaryAmbulatory Visit Summary NETTEJASMEET :1960 Visit Date:07/30/2024 Ambulatory Visit Instructions Your Diagnosis Benign essential HTN Combined hyperlipidemia Restless leg syndrome History of reversal of ileostomy Cigarette nicotine dependence Overweight BMI 27.0-27.9,adult Your Care Team Attending Physician - Tristen MSN, APPLICATION ADMINISTRATOR-PROCUREMENT BUYERSherie Primary Care Physician - Tristen MSN, APPLICATION ADMINISTRATOR-PROCUREMENT BUYERSherie This Is Your Medications List cilostazol (cilostazol [...] Misc Prescription (brava protective seal - # 80325) Misc Prescription (xproconvex light -#0170668) Misc Prescription (xproconvex light -#2913508) tamsulosin (tamsulosin 0.4 mg Cap) Procedures Performed [...] (11/09/2020), Epidural injection of lumbar spine using fluoroscopicguidance (09/30/2020), Injection of nerve root of lumbar [...] Follow-Up Appointments Monday 8:20 AM EDT With: Tristen MSN, APPLICATION ADMINISTRATOR-PROCUREMENT BUYER, Sherie Dash Where: [address] [place] [address]- You Need to Schedule the Following Appointments Follow Up with Tristen MSN, APPLICATION ADMINISTRATOR-PROCUREMENT BUYER, Sherie Dash When: In 4 months Comments: chronic care Where: [address] [place] [address] Medications What How Much When Instructions Changed ropinirole (ropinirole 2 mg Tab) 1 Tablets By Mouth 2 times a day Unchanged cilostazol (cilostazol 100 mg Tab) See instructions Take one tablet twice a [facility] Unchanged atorvastatin (atorvastatin 20 mg Tab) [...] Tablets By Mouth Every day Contact prescribing physicianif questions or concerns Unchanged gabapentin (gabapentin 800 mg Tab) 1 Tablets By Mouth 3 times a day Contact prescribing physician if questions or concerns Unchanged metoprolol (Metoprolol succinate 25 mg ER Tablet) Contact prescribing physician if questions or concerns Unchanged Misc Prescription (baclofen 10 mg tablet) 0 Contact prescribing physician if questions orconcerns Unchanged pantoprazole (Protonix 40 mg Tab-DR) 1 Tablets By Mouth Every day Contact prescribing physician if questions or concerns Pharmacy Information [facility]: [address] [place], [place] [id number] [phone] What How Much When Why Comments Stop Taking Misc Prescription (brava protective seal - # 59201) See instructions Colostomy present use with colostomy, change daily Stop Taking Misc Prescription (xproconvex light -#4027549) See instructions Colostomy present change colostomy bag daily. Stop Taking Misc Prescription (xproconvex light -#8859175) See instructions Colostomy present change colostomy bag daily. Stop Taking tamsulosin (tamsulosin 0.4 mg Cap) 1 Capsules Allergies (more content not included)...[facility] Medicine Office/Clinic Noteon [id number] Medicine Office/Clinic NoteFasouthcoast behavioral health hospital Medicine Office/Clinic Note Chief Complaint The patient presents for follow-up regarding restless legs syndrome and management of medications post-ileostomy reversal. HPI Staff C/O: restless leg Onset: chronic Location: dior legs Symptoms: spasms takes Ropinirole and will [...] clinic: Dr Andrade Cardiovascular surgeon: Dr Yan Software Qa System Specialist: Dr Hall Games Manager: [facility] Cr/eGFR: eGFR: 95 mL/min/1.73 [...] the surgical site for irritation, noting it appearsto provide some relief. As per his last [...] moderate exercise to at least 2.5 hrs pe (more content not included)...[facility] Medical CenterComment on above:Result Comment: Electronically Signed By: Tristen AQUINO, APPLICATION ADMINISTRATOR-ROBERT, Sherie Dash\.br\Date and Time Signed: 07/30/24 10:08 [facility] UnitInneractive on [id number] Valley Health Network Case Information No case details exist for [...] (11/09/2020), Epidural injection of lumbar spine using fluoroscopicguidance (09/30/2020), Injection of nerve root of lumbar [...] tablet, 0 brava protective seal - # 69993, See Instructions, 5 refills buPROPion 150 mg [...] Cap, 0.4 mg= 1 cap(s) xproconvex light -#5111370, See Instructions, 5 refills xproconvex light -#5827563, See Instructions, 5 refills Allergies No Known Allergies No Known Medication Allergies Social History Alcohol - Denies Alcohol Use, 04/27/2022 Past, Beer, 08/06/2020 Employment/School 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 . Continues [...] Outbound Duration (min): 6 Outcome: Case discussion Conta (more content not included)...[facility]St[facility] 12-19-0807JgxcnsrufxAmerican Academic Health System Case Information No case details exist for [...] (11/09/2020), Epidural injection of lumbar spine using fluoroscopicguidance (09/30/2020), Injection of nerve root of lumbar [...] tablet, 0 brava protective seal - # 69422, See Instructions, 5 refills buPROPion 150 mg [...] Cap, 0.4 mg= 1 cap(s) xproconvex light -#1169922, See Instructions, 5 refills xproconvex light -#4274377, See Instructions, 5 refills Allergies No Known Allergies No Known Medication Allergies Social History Alcohol - Denies Alcohol Use, 04/27/2022 Past, Beer, 08/06/2020 Employment/School 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 [facility] [id number]al Access Hospital Case Information No case details exist for [...] (11/09/2020), Epidural injection of lumbar spine using fluoroscopicguidance (09/30/2020), Injection of nerve root of lumbar [...] tablet, 0 brava protective seal - # 89203, See Instructions, 5 refills buPROPion 150 mg [...] Cap, 0.4 mg= 1 cap(s) xproconvex light -#3697245, See Instructions, 5 refills xproconvex light -#1664081, See Instructions, 5 refills Allergies No Known Allergies No Known Medication Allergies Social History Alcohol - Denies Alcohol Use, 04/27/2022 Past, Beer, 08/06/2020 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 no Called (more content not included)...[facility] W Auto Differential panel (Bld)on 83-28-6185Hsphqwrbndki Ql (Bld)1+Bon [facility] Clinic Orthopedic Centerphils (Bld) [#/Vol]0.1 10*3/uL0.0 - 0.2 K/uLBon Secours [facility] Health Basophils/100 WBC (Bld)1.0 %[facility] HealthEosinophils (Bld) [#/Vol]0.4 10*3/uL0.0 - 0.7 K/uLBon Secours Mercy HealthEosinophils/100 WBC (Bld)3.0 %[facility] Medical CenterErythrocyte distribution width (RBC) [Ratio]17.5 %High11.5 - 14.5 %[facility] Medical CenterHematocrit (Bld) [Volume fraction]30.4 %Low42.0 - 52.0 %[facility] Medical CenterHemoglobin (Bld) [Mass/Vol]9.0 g/dLLow14.0 - 18.0 g/dLBon Secours [facility] Medical CenterHypochromia Ql (Bld)1+Bon [facility] Interpretation and review of laboratory resultsAbnormalBon [facility] Lymphocytes (Bld) [#/Vol]4.0 10*3/uL1.0 - 4.8 K/uLBon Secours [facility] Health Lymphocytes/100 WBC (Bld)34.0 %[facility] Medical CenterMacrocytes Ql (Bld)1+[facility] Medical CenterMCH (RBC) [Entitic mass]25.4 pgLow27.0 - 31.3 pgBon SecMercy Health Urbana HospitalMCHC (RBC) [Mass/Vol]29.6 %Low33.0 - 37.0 %[facility] SecMercy Health U[facility] Hospital MCV (RBC) [Entitic vol]85.9 fL79.0 - 92.2 fLBon Secours [facility] Hospital HealthMonocytes (Bld) [#/Vol]0.7 10*3/uL0.2 - 0.8 K/uLBon Secours [facility] HealthMonocytes/100 WBC (Bld)5.8 %[facility] Medical CenterNeutrophils (Bld) [#/Vol]6.8 10*3/uLHigh1.4 - 6.5 K/uLBon Secours [facility] Medical CenterOvalocytes LM Ql (Bld)1+[facility] Platelets (Bld) [#/Vol]511 10*3/hDVgyv896 - 400 K/uLBon SecRapides Regional Medical Center Health Platelets LM Ql (Bld)IncreasedBon [facility]ena Regional Medical CenterPoikilocytosis LM Ql (Bld) 2+Bon [facility] CenterPolychromasia LM Ql (Bld)1+Bon [facility] CenterRBC (Bld) [#/Vol]3.54 10*6/uLLowBon [facility] Regional Medical CenterSegmented neutrophils/100 WBC (Bld)57.0 %Bon [facility] CenterSLIDE REVIEWsee belowInova Fair Oaks HospitalComment on above:Slide review agrees with reported resultsSmudge cells LM Ql (Bld)12.5Bon [facility] Medical CenterTarget cells LM Ql (Bld)1+Bon [facility] CenterWBC (Bld) [#/Vol]11.9 10*3/uLHigh4.8 - 10.8 K/uLBon [facility] Collection has been rescheduled by JACQUE at 07/03/2024 05:39 Reason: Patient refuse venipunctureBlanchard Valley Health SystemCBC With Platelet and Differentialon 03-46-8871Afzergvk Slide Review [facility] HospitalComment on above:Order Comment: Collection has been rescheduled by DEBBI at 04/18/2024 02:16 Reason: Patient has port or linePerformed By: #### RENAL #### [facility] [address] [place] [address] Gbbnp Reviewsee [facility] Valley HospitalComment on above:Order Comment: Collection has been rescheduled by DEBBI at 04/18/2024 02:16 Reason: Patient has port or lineResult Comment: Slide review agrees with reported resultsPerformed By: #### RENAL #### [facility] [address] [place] [address] Hfrkpqykdjuu Ql (Bld)1+[facility] HospitalComment on above:Order Comment: Collection has been rescheduled by DEBBI at 04/18/2024 02:16 Reason: Patient has port or linePerformed By: #### RENAL #### [facility] [address] [place] [address] Dufcdedho (Bld) [#/Vol]0.1 10*3/uLNormal0.0-0.2MSky Ridge Medical CenterComment on above:Order Comment: Collection has been rescheduled by DAVCN at 04/18/2024 02:16 Reason: Patient has port or linePerformed By: #### RENAL #### [facility] [address] [place] [address] Witlspmsj/100 WBC (Bld)1.0 %[facility] Comment on above:Order Comment: Collection has been rescheduled by DAVCN at 04/18/2024 02:16 Reason: Patient has port or linePerformed By: #### RENAL #### [facility] [address] [place] [address] Qkwiewuyaey (Bld) [#/Vol]0.4 10*3/uLNormal0.0-0.7[facility] Medical CenterComment on above:Order Comment: Collection has been rescheduled by DAVCN at 04/18/2024 02:16 Reason: Patient has port or linePerformed By: #### RENAL #### [facility] [address] [place] [address] Cbwyqnfpakn/100 WBC (Bld)3.0 %[facility] Comment on above:Order Comment: Collection has been rescheduled by DAVCN at 04/18/2024 02:16 Reason: Patient has port or linePerformed By: #### RENAL #### [facility] [address] [place] [address] Mjmwbptxgrp7+[facility] HospitalComment on above: Order Comment: Collection has been rescheduled by DAVCN at 04/18/2024 02:16 Reason: Patient has port or linePerformed By: #### RENAL #### [facility] [address] [place] [address] Tktgttgygng (Bld) [#/Vol]4.0 10*3/uLNormal1.0-4.8[facility] Medical CenterComment on above:Order Comment: Collection has been rescheduled by DAVCN at 04/18/2024 02:16 Reason: Patient has port or linePerformed By: #### RENAL #### [facility] [address] [place] [address] Ipflyrwhnwd/100 WBC (Bld)34.0 %[facility] Comment on above:Order Comment: Collection has been rescheduled by DAVCN at 04/18/2024 02:16 Reason: Patient has port or linePerformed By: #### RENAL #### [facility] [address] [place] [address] Xngoximaja4+[facility] HospitalComment on above: Order Comment: Collection has been rescheduled by DAVCN at 04/18/2024 02:16 Reason: Patient has port or linePerformed By: #### RENAL #### [facility] [address] [place] [address] Srwdamwar (Bld) [#/Vol]0.7 10*3/uLNormal0.2-0.8[facility] Medical CenterComment on above:Order Comment: Collection has been rescheduled by DAVCN at 04/18/2024 02:16 Reason: Patient has port or linePerformed By: #### RENAL #### [facility] [address] [place] [address] Yytiyjsod/100 WBC (Bld)5.8 %[facility] Comment on above:Order Comment: Collection has been rescheduled by DAVCN at 04/18/2024 02:16 Reason: Patient has port or linePerformed By: #### RENAL #### [facility] [address] [place] [address] Wbryektzrea (Bld) [#/Vol]6.8 10*3/uLCritically high1.4-6.5[facility] Medical CenterComment on above:Order Comment: Collection has been rescheduled by DAVCN at 04/18/2024 02:16 Reason: Patient has port or linePerformed By: #### RENAL #### [facility] [address] [place] [address] Ybvqrbniyci/100 WBC (Bld)57.0 %[facility] Comment on above:Order Comment: Collection has been rescheduled by DAVCN at 04/18/2024 02:16 Reason: Patient has port or linePerformed By: #### RENAL #### [facility] [address] [place] [address] Kygbmblfat9+[facility] HospitalComment on above: Order Comment: Collection has been rescheduled by DAVCN at 04/18/2024 02:16 Reason: Patient has port or linePerformed By: #### RENAL #### [facility] [address] [place] [address] Sqzhwuzvdvabeh5+[facility] HospitalComment on above: Order Comment: Collection has been rescheduled by DAVCN at 04/18/2024 02:16 Reason: Patient has port or linePerformed By: #### RENAL #### [facility] [address] [place] [address] Zdbabxnswgwbe2+Valley View HospitalComment on above: Order Comment: Collection has been rescheduled by DAVCN at 04/18/2024 02:16 Reason: Patient has port or linePerformed By: #### RENAL #### [facility] [address] [place] [address] Fgqecm Cells12.5NormDenver Health Medical CenterComment on above: Order Comment: Collection has been rescheduled by DAVCN at 04/18/2024 02:16 Reason: Patient has port or linePerformed By: #### RENAL #### [facility] [address] [place] [address] Ebfejg Cells1+Valley View HospitalComment on above: Order Comment: Collection has been rescheduled by DAVCN at 04/18/2024 02:16 Reason: Patient has port or linePerformed By: #### RENAL #### [facility] [address] [place] [address] Imeqaaqopgq distribution width (RBC) [Ratio]17.5 %Critically high 11.5-14.5[facility] Medical CenterComment on above:Order Comment: Collection has been rescheduled by DAVCN at 04/18/2024 02:16 Reason: Patient has port or linePerformed By: #### RENAL #### [facility] [address] [place] [address] Xzlemqwhdm (Bld) [Volume fraction]30.4 %Low42.0-52.0[facility] CenterComment on above:Order Comment: Collection has been rescheduled by DAVCN at 04/18/2024 02:16 Reason: Patient has port or linePerformed By: #### RENAL #### [facility] [address] [place] [address] Wdcktprkqe (Bld) [Mass/Vol]9.0 g/dLLow14.0-18.0[facility] CenterComment on above:Order Comment: Collection has been rescheduled by DAVCN at 04/18/2024 02:16 Reason: Patient has port or linePerformed By: #### RENAL #### [facility] [address] [place] [address] KQQ (RBC) [Entitic mass]25.4 pgLow27.0-31.3MSky Ridge Medical CenterComment on above:Order Comment: Collection has been rescheduled by DAVCN at 04/18/2024 02:16 Reason: Patient has port or linePerformed By: #### RENAL #### [facility] [address] [address] IFVU12.6 %Low33.0-37.0[facility] CenterComment on above: Order Comment: Collection has been rescheduled by DAVCN at 04/18/2024 02:16 Reason: Patient has port or linePerformed By: #### RENAL #### [facility] [address] [place] [address] UKH (RBC) [Entitic vol]85.9 kIIebvmc21.0-92.2MSky Ridge Medical CenterComment on above:Order Comment: Collection has been rescheduled by DAVCN at 04/18/2024 02:16 Reason: Patient has port or linePerformed By: #### RENAL #### [facility] [address] [place] [address] Pjwghoqac (Bld) [#/Vol]511 10*3/uLCritically qujj781-808ZblnmArkansas Valley Regional Medical CenterComment on above:Order Comment: Collection has been rescheduled by DAVCN at 04/18/2024 02:16 Reason: Patient has port or linePerformed By: #### RENAL #### [facility] [address] [place] [place] [address] NCS (Bld) [#/Vol]3.54 10*6/uLLow4.70-6.10[facility] Medical CenterComment on above:Order Comment: Collection has been rescheduled by DAVCN at 04/18/2024 02:16 Reason: Patient has port or linePerformed By: #### RENAL #### [facility] [address] [place] [address] NPR (Bld) [#/Vol]11.9 10*3/uLCritically high4.8-10.8[facility] CenterComment on above:Order Comment: Collection has been rescheduled by DAVCN at 04/18/2024 02:16 Reason: Patient has port or linePerformed By: #### RENAL #### [facility] [address] [place] [place] [address] Dxvbx Metabolic Panelon [id number] gap [Moles/Vol]10 mmol/L Normal9-15[facility] CenterComment on above:Performed By: #### RENAL #### [facility] [address] [place] [place] [address] Deouqsu [Mass/Vol]8.4 mg/dLLow8.5-9.9[facility] Comment on above:Performed By: #### RENAL #### [facility] [address] [place] [address] Bjwvaaai [Moles/Vol]108 mmol/LCritically thji73-086FkyrcArkansas Valley Regional Medical CenterComment on above:Performed By: #### RENAL #### [facility] [address] [place] [address] TE2 [Moles/Vol]25 mmol/VKawzwm40-63QoalrArkansas Valley Regional Medical Center Comment on above:Performed By: #### RENAL #### [facility] [address] [place] [place] [address] Pfmszkvtnh [Mass/Vol]0.97 mg/dLNormal0.70-1.20[facility] CenterComment on above:Performed By: #### RENAL #### [facility] [address] [place] [place] [address] ZVN39.8Normal>60[facility] CenterComment on above:Result Comment: Pediatric calculator link https://www.kidney.org/professionals/kdoqi/gfr_calculatorped Effective Feb [...] or following therapy that affects renal tubular secretion.Performed By: #### RENAL #### [facility] [address] [place] [place] [address] Vbuzrap [Mass/Vol]74 mg/jHTcwxwa98-31CglpeSky Ridge Medical Center Comment on above:Performed By: #### RENAL #### [facility] [address] [place] [place] [address] Wkfikreig [Moles/Vol]4.3 mmol/LNormal3.4-4.9[facility] CenterComment on above:Performed By: #### RENAL #### [facility] [address] [place] [place] [address] Tqbqzt [Moles/Vol]143 mmol/FMxgbjp335-862FalygArkansas Valley Regional Medical CenterComment on above:Performed By: #### RENAL #### [facility] [address] [place] [place] [address] Cyxg nitrogen [Mass/Vol]15 mg/dLNormal8-23[facility] CenterComment on above:Performed By: #### RENAL #### [facility] [address] [place] [place] [address] Pujpf metabolic 2000 panelon 01-09-4291Xvksq gap [Moles/Vol]10 mmol/LBon Secours Mercy HealthCalcium [Mass/Vol]8.4 mg/dLLow8.5 - 9.9 mg/dLBon Secours Mercy HealthChloride [Moles/Vol]108 mmol/LHighBon Secours Mercy Health CO2 [Moles/Vol]25 mmol/LBon Secours Mercy HealthCreatinine [Mass/Vol]0.97 mg/dL 0.70 - 1.20 mg/dLBon Secours Mercy HealthGFR/1.73 sq M.predicted among non- blacks MDRD (S/P/Bld) [Vol rate/Area]86.8 mL/min/{1.73_m2}60 - PINFBon Secours AkesoGenXy HealthComment on above:Pediatric calculator link https://www.kidney.org/professionals/kdoqi/gfr_calculatorped Effective Feb 21, 2022 [...] following therapy that affects renal tubular secretion. Glucose [Mass/Vol]74 mg/dL70 - 99 mg/dLBon Secours AkesoGenXy HealthInterpretation and review of laboratory resultsAbnormalBon Secours Mercy HealthPotassium [Moles/Vol]4.3 mmol/LBon Secours Mercy HealthSodium [Moles/Vol]143 mmol/LBon Secours Mercy HealthUrea nitrogen [Mass/Vol]15 mg/dL8 - 23 mg/dLBon Adena Regional Medical CenterBon Adena Regional Medical CenterCBC With Platelet No Differentialon [id number] distribution width (RBC) [Ratio]17.9 %Critically high 11.5-14.5[facility] CenterComment on above:Performed By: #### RENAL #### [facility] [address] [place] [place] [address] Cvhvsijpry (Bld) [Volume fraction]31.4 %Low42.0-52.0[facility] CenterComment on above:Performed By: #### RENAL #### [facility] [address] [facility] [address] Bqastmyaeb (Bld) [Mass/Vol]9.3 g/dLLow14.0-18.0[facility] CenterComment on above:Performed By: #### RENAL #### [facility] [address] [facility] [address] MSF (RBC) [Entitic mass]25.8 pgLow27.0-31.3MSky Ridge Medical CenterComment on above:Performed By: #### RENAL #### [facility] [address] [place] [place] [address] LUHC89.6 %Low33.0-37.0[facility] CenterComment on above: Performed By: #### RENAL #### [facility] [address] [place] [place] [address] SWX (RBC) [Entitic vol]87.2 bDAptsyd75.0-92.2MSky Ridge Medical CenterComment on above:Performed By: #### RENAL #### [facility] [address] [place] [place] [address] Xijdorhgg (Bld) [#/Vol]540 10*3/uLCritically deja214-491FklvoArkansas Valley Regional Medical CenterComment on above:Performed By: #### RENAL #### [facility] [address] [place] [place] [address] IMI (Bld) [#/Vol]3.60 10*6/uLLow4.70-6.10[facility] CenterComment on above:Performed By: #### RENAL #### [facility] [address] [place] [address] XEF (Bld) [#/Vol]19.3 10*3/uLCritically high4.8-10.8[facility] CenterComment on above:Performed By: #### RENAL #### [facility] [address] [place] [address] JPQ panel Auto (Bld)on [id number] distribution width (RBC) [Ratio]17.9 %High11.5 - 14.5 %Bon [facility] Regional Medical CenterHematocrit (Bld) [Volume fraction]31.4 %Low42.0 - 52.0 %[facility]aks HospitalHemoglobin (Bld) [Mass/Vol]9.3 g/dLLow14.0 - 18.0 g/dLBon Adena Regional Medical CenterInterpretation and review of laboratory resultsAbnormalBon Protestant HospitalH (RBC) [Entitic mass]25.8 pgLow27.0 - 31.3 pgBon Protestant HospitalHC (RBC) [Mass/Vol]29.6 % Low33.0 - 37.0 %[facility]aks HospitalV (RBC) [Entitic vol]87.2 fL79.0 - 92.2 fLBon Adena Regional Medical CenterPlatelets (Bld) [#/Vol]540 10*3/aCBqfz631 - 400 K/uLBon SecMercy Health Urbana HospitalRBC (Bld) [#/Vol]3.60 10*6/uLLowBon Adena Regional Medical CenterWBC (Bld) [#/Vol]19.3 10*3/uLHigh4.8 - 10.8 K/uLBon Adena Regional Medical Center Bon [facility] Medical CenterOPERATIVE REPORTon [id number] REPORTMOUNT ST. [facility] [address] [place] [address] OPERATIVE REPORT PATIENT NAME:JASMEET PERDUE :1960 [facility] REC NO:[id number] ROOM:[facility] ACCOUNT NO:[id number] ADMIT DATE:07/01/2024 PROVIDER:Beltran Hall MD DATE OF PROCEDURE: 07/01/2024 SURGEON: Beltran Hall MD RESOURCE ROOM TEACHER: Ms. Olvera. PREOPERATIVE DIAGNOSIS: Dysfunctional ileostomy. POSTOPERATIVE [...] the afferent and efferent limbs of the b owel were exteriorized. A 75 HORACE was used to transect the afferent and efferent limbs of the ileostomy. The mesentery was suture ligated using 0 Vicryl suture. The ileostomy was discarded. A akwp-gk-isnw ileoileostomy was performed with a 75 HORACE and completed with a 60 TA stapler. The anastomotic crotch was reinforced with interrupted 3-0 silk suture. The mesenteric defect was closed with a 3-0 silk suture in a wlqxqu-sh-grsmt fashion. The anastomosis was well perfused and under no tension. The bowel was placed back in the abdomen. No other adhesions were present. Lap, needle, and instrument counts were all correct. The posterior fascia was closed using a running 0 Vicryl suture. The anterior fascia was closed with a combination of 0 Vicryl and 0 Prolene suture. Subcutaneous tissues were irrigated with saline. A1/4-inch Henry drain was placed and secured in the subcutaneous tissue, and the skin was closed with janice. Following completion, the lap, needle, and instrument counts were all correct. The patient was extubated and taken to Recovery for postop monitoring. BELTRAN HALL MD TPO/AQS Doc#: [id number] View HospitalColonoscopy studyon [id number] [facility] Patient: JASMEET PERDUE : 1960 Account: [id number] Sex at : Male Age: 63 Years Procedure: Colonoscopy Date: 06/10/2024 Attending Physician: Beltran Hall Indications: - Screening for colorectal malignant neoplasm [...] - Await pathology results. 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 All Rights Reserved. The CPT codes, CCI edits and ICD codes generated are intended as suggestions and were generated based on input data. These codes are preliminary and upon soft sugar cutter review may be revised to meet current compliance and payer requirements. The provider is responsible for the final determination of appropriate codes, and modifiers. Scope Withdrawal Time: 00:06:31 Beltran Hall MD This document has been electronically signed. Note Initiated:06/10/2024 Note Completed:06/10/2024 7:48 AMSWOH Beltran Angeles MD - 06/10/2024 [facility] Patient: JASMEET PERDUE : 1960 Account: [id number] Sex at : Male Age: 63 Years Procedure: Colonoscopy Date: 06/10/2024 Attending Physician: Beltran Hall Indications: - Screening for colorectal malignant neoplasm [...] - Await pathology results. 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 All Rights Reserved. The CPT codes, CCI edits and ICD codes generated are intended as suggestions and were generated based on input data. These codes are preliminary and upon soft sugar cutter review may be revised to meet current compliance and payer requirements. The provider is responsible for the final determination of appropriate codes, and modifiers. Scope Withdrawal Time: 00:06:31 Beltran Hall MD This document has been electronically signed. Note Initiated:06/10/2024 Note Completed:06/10/2024 7:48 AM [facility] CampusSurgical Specimenon 06-10-2024 [facility] [address] [place], [place] [id number] FINAL SURGICAL PATHOLOGY REPORT Patient Name: JASMEET PERDUE Accession No: [id number] Age Sex: 1960 Location: [facility] Account No: [id number] Collected: 06/10/2024 Med Rec No: [id number] Received: 06/11/2024 Attend Phys: BELTRAN HALL Completed: 06/12/2024 Perform Phys: BELTRAN HALL FINAL DIAGNOSIS: DESCENDING COLON BIOPSY - INFLAMMATORY POLYP WITH FOCAL ADENOMATOUS CHANGES. ALIFA/ALIFA CLINICAL INFORMATION: Colon cancer screening, Z12.11. SPECIMEN: Descending Colon Biopsy GROSS DESCRIPTION: The specimen is received in formalin in a container labeled Jasmeet Perdue and designated as colon and consists of a pinkish-estrada polyp, measuring 3 mm in greatest dimension, filtered, submitted in toto in one cassette. ALIFA/PJS CPT: 47678 X1 NITA HILLMAN M.D. 06/12/2024 Electronically signed out by Page 1 of 1Invalid Interpretation [facility] HealthComment on above:Performed By: #### JOSE CARLOS ####[facility] [facility] [phone] Visit Summaryon [id number] Visit SummaryAmbulatory Visit Summary JASMEET PERDUE :1960 Visit Date:06/04/2024 Ambulatory Visit Instructions Your Diagnosis SANDEEP (acute kidney injury) Hypovolemic shock Ileostomy present Cigarette nicotine dependence Overweight BMI 26.0-26.9,adult Your Care Team Attending Physician - Tristen AQUINO, APPLICATION ADMINISTRATOR-Sherie JONES Primary Care Physician - Tristen AQUINO, BERNARD-Sherie JONES This Is Your Medications List nicotine (nicotine 14 mg/24 hr Transderm ER Film) ropinirole (ropinirole 2 mg Tab) Contact prescribing physician if questions or concerns Misc Prescription (baclofen 10 mg tablet) Misc Prescription (brava protective seal - # 27054) Misc Prescription (xproconvex light -#[id number]) Misc Prescription (xproconvex light -#[id number]) acetaminophen-oxycodone (acetaminophen-oxycodone 325 mg-5 mg Tab) atorvastatin [...] (11/09/2020), Epidural injection of lumbar spine using fluoroscopicguidance (09/30/2020), Injection of nerve root of lumbar [...] Follow-Up Appointments Monday 7:20 AM EDT With: Tristen AQUINO, Sherie HARLEY Where: [address] [address]- You Need to Schedule the Following Appointments Follow Up with Tristen AQUINO, BERNARD-ROBERT, Sherie Dash When: Only if needed Where: [address] [place] [phone] Medications What How Much When Why Instructions Changed nicotine (nicotine 14 mg/ 24 hr Transderm ER Film) 1 Patches Transdermal Every day Duration: 21 Days Apply 1 patch daily as directed Pickup at [facility] Changed ropinirole (ropinirole 2 mg Tab) 1 Tablets By Mouth At bedtime Duration: 30 Days Pickup at [facility] Unchanged acetaminophen-oxycodone (acetaminophen-oxycodone 325 mg-5 mg [...] Tablets By Mouth Every day Contact prescribing physicianif questions or concerns Unchanged gabapentin (gabapentin 600 [...] tablet) 0 Contact prescribing physician if questions orconcerns Unchanged Misc Prescription (brava protective seal - # 36634) See instructions Colostomy present use with colostomy, change daily Contac (more content not included)...[facility] CenterF[facility] Medicine Office/Clinic Note on [id number] Medicine Office/Clinic NoteFami Medicine Office/Clinic Note Chief Complaint The patient presents for [...] clinic: Dr Andrade Cardiovascular surgeon: Dr Yan Software Qa System Specialist: Dr Hall Games Manager: NOMJ[facility] LABS Cr/eGFR: eGFR: 95 mL/min/1.73 [...] VLDL: 18 mg/dL (08/01/23 08:56:00) Future Appointments [facility] [place] Appt. Date: 08/02/2024 7:20 AM Scheduled Provider: [place], [address] Phone: [phone] Fax: [phone] The acute kidney injury was initially noticed when the patient began experiencing symptoms, including changes in urination patterns, as described during the visit. Blood work was recently done to monitor kidney function and CBC, which reportedly showed high blood platelets, though they are improving. He followed up with a natural resources engineer in [place]. The patient had a catheter placed for about a week while in the hospital due to difficulty urinating, leading to ongoing issues with urination flow. Hestates he did not have specific orders to follow-up with a transition of care specialist upon discharge from the hospital. The patient [...] ileostomy. Ensure supply issues for ileostomy care arebeing addressed, as per the patient???s report of exchange troubles and need for appropriate supplies. 3. Restle (more content not included)...[facility] CenterComment on above:Result Comment: Electronically Signed By: Tristen AQUINO, APPLICATION ADMINISTRATOR-ROBERT, Sherie Dash\.br\Date and Time Signed: 06/04/24 15:38 [facility] 05-27-2024 [facility] Case Information Case Priority: None Programs: -- Referral Source: Cashier And Waiter/Waitress Referral Reason: Care coordination Case Type: Transition Care Management Risk Score: -- Case Status: Enrolled (April 26, 2024) Date Assigned: April 26, 2024 Assigned By: Mylene Ledesma RN Date Enrolled: April 26, 2024 Assigned Primary Personnel: Alla Osuna R.N. Assigned Secondary Personnel: -- Case Physician: Tristen MSN, APPLICATION ADMINISTRATOR-PROCUREMENT BUYER, Sherie Dash Problems Ongoing AAA (abdominal aortic aneurysm) [...] (11/09/2020), Epidural injection of lumbar spine using fluoroscopicguidance (09/30/2020), Injection of nerve root of lumbar [...] See Instructions, 3 refills colostomy bag: xproconvex light-47113., See Instructions, 6 refills gabapentin 600 mg [...] Daily, 1 refills Seals brava protective seals- 46252, See Instructions, 6 refills tamsulosin 0.4 mg Cap, 0.4 mg= 1 cap(s) Allergies No Known Allergies No Known Medication Allergies Social History Alcohol - Denies Alcohol Use, 04/27/2022 Past, Beer, 08/06/2020 Employment/School 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 Notified patient of discussion with PCP and ostomy supplies encouraged to reach out to surgeons ofc to see if they have any solutions since they are more familiar with different supplies and options. If this is unsuccessful encouraged patient to discuss alternati (more content not included)...[facility] Case Information Case Priority: None Programs: -- Referral Source: Cashier And Waiter/Waitress Referral Reason: Care coordination Case Type: Transition Care Management Risk Score: -- Case Status: Enrolled (April 26, 2024) Date Assigned: April 26, 2024 Assigned By: Mylene Ledesma RN Date Enrolled: April 26, 2024 Assigned Primary Personnel: Alla Osuna R.N. Assigned Secondary Personnel: -- Case Physician: Tristen MSN, APPLICATION ADMINISTRATOR-PROCUREMENT BUYER, Sherie Dash Problems Ongoing AAA (abdominal aortic aneurysm) [...] (11/09/2020), Epidural injection of lumbar spine using fluoroscopicguidance (09/30/2020), Injection of nerve root of lumbar [...] See Instructions, 3 refills colostomy bag: xproconvex light-08593., See Instructions, 6 refills gabapentin 600 mg [...] Daily, 1 refills Seals brava protective seals- 72599, See Instructions, 6 refills tamsulosin 0.4 mg Cap, 0.4 mg= 1 cap(s) Allergies No Known Allergies No Known Medication Allergies Social History Alcohol - Denies Alcohol Use, 04/27/2022 Past, Beer, 08/06/2020 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 Patient continue to have difficulty obtaining supplies. His insurance is not accepted locally at any of the DME suppliers that carryhis specific ostomy supplies and DM no longer orders supplies. Patient will check (more content notincluded)... 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 Patient denies abdominal pain. Continuesto experiment with what food he can eat. To keep stool at an appropriate consistency. Patient is attempting to maintain a low fiber diet as directed. Continues to have difficulty getting ostomy supples. DM-N can order supplies for patient per patient. Sent supply names and number of supplies to PCPso can send an order to drugstore. Denies CP, SOB, trouble eating, drinking, swallowing, sleeping, or with bladder. Denies concerns. Communication Events Date: May 21, 2024 Method: Phone call Type: Outbound Duration (min): 14 Outcome: Case discussion Contact Type: Patient Contact Name: JASMEET PERDUE Notes: tcm #4 see ft summary note Created By: Alla Osuna R.N. 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 Denies CP, SOB, trouble eating, drinking, swallowing, sleeping, or with bladder. Denies concerns. Communication Events Date: May 13, 2024 Method: Phone call Type: Outbound Duration (min): 6 Outcome: Case discussion Contact Type: Patient Contact Name: JASMEET PERDUE Notes: tcm #3 see summary note Created By: Alla Osuna R.N. 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 Will also have a f/u with hourly manager. States BP hasbeen around 107/73. He had a f/u this [...] Case discussion Contact Type: Patient Contact Name: JASMEET PERDUE Notes: tcm # 2 see ft summary note Created By: Alla Osuna R.N.[facility] Centeraracelis Kennedy Krieger InstituteC-Reactive Proteinon [id number] High sensitivity method [Mass/Vol]mg/L0.0 - 5.0 mg/LBon [facility] Medical CenterCRP [Mass/Vol]mg/LNormal0.0-5.0Holzer Health SystemComment on above:Performed By: #### CDP, CP, CRP #### [facility] [address] [place] [address] Telesales Advisor: Willard Ramirez [facility] With Auto Differentialon [id number] (Bld) [#/Vol]0.03 10*3/uLBon [facility]ena Regional Medical CenterImmature granulocytes (Bld) [#/Vol]0.06 10*3/uLBon [facility] HealthInterpretation and review of laboratory resultsAbnormalBon [facility] Regional Medical CenterLymphocytes/100 WBC (Bld)2.61 %[facility] HealthMonocytes/100 WBC (Bld)1.05 %HighInova Fair Oaks HospitalNeutrophils/100 WBC (Bld)63 %39 - 75 %Bon [facility] CenterSegmented neutrophils/100 WBC (Bld)6.76 %HighInova Fair Oaks HospitalWBC other (Bld) [#/Vol]10.7[facility] HospitalCBC with Diffon [id number]/100 WBC (Bld)0 %Normal0-2Bon [facility] CenterComment on above:Performed By: #### CDP, CP, CRP #### [facility] [address] [place] [address] Telesales Advisor: Willard Ramirez MDEosinophils (Bld) [#/Vol]0.20 10*3/uLNormal 0.00-0.40Bon [facility] on above:Performed By: #### CDP, CP, CRP #### [facility] [address] [place] [address] Telesales Advisor: Willard Ramirez MDEosinophils/100 WBC (Bld)2 %Normal0-5Bon [facility] on above:Performed By: #### CDP, CP, CRP #### [facility] [address] [place] [address] Telesales Advisor: Willard Ramirez MDErythrocyte distribution width (RBC) [Ratio]14.8 % Aogsvo30.1-15.2Bon [facility] on above:Performed By: #### CDP, CP, CRP #### [facility] [address] [place] [address] Telesales Advisor: Willard Ramirez MDHematocrit (Bld) [Volume fraction]29.3 %Low 41.0-53.0Bon [facility] on above:Performed By: #### CDP, CP, CRP #### [facility] [address] [place] [address] Telesales Advisor: Willard Ramirez MDHemoglobin (Bld) [Mass/Vol]9.6 g/dLLow13.5-17.5Bon [facility] on above:Performed By: #### CDP, CP, CRP #### [facility] [address] [place] [address] Telesales Advisor: Willard Ramirez MDImmature granulocytes/100 WBC (Bld)1 %Normal0-5Bon [facility] on above:Performed By: #### CDP, CP, CRP #### [facility] [address] [place] [address] Telesales Advisor: Willard Ramirez MDLymphocytes/100 WBC (Bld)24 %Vakjgm47-62Shg [facility] Medical CenterComment on above:Performed By: #### CDP, CP, CRP #### [facility] [address] [place] [id number] Telesales Advisor: DIANN AdamsonCH (RBC) [Entitic mass]29.5 dlMjtknq35.0-34.0[facility] Medical CenterComment on above:Performed By: #### CDP, CP, CRP #### [facility] [address] [place] [address] Telesales Advisor: AYANNA AdamsonC (RBC) [Mass/Vol]32.8 g/lOAhestt40.0-37.0[facility] Medical CenterCombrighton hospital on above:Performed By: #### CDP, CP, CRP #### [facility] [address] [place] [id number] Telesales Advisor: DIANN AdamsonCV (RBC) [Entitic vol]90.2 sQCsvpjf71.0-100.0[facility] CenterCombrighton hospital on above:Performed By: #### CDP, CP, CRP #### [facility] [address] [place] [address] Telesales Advisor: DIANN Adamsononocytes/100 WBC (Bld)10 %High5-9[facility] CenterCombrighton hospital on above:Performed By: #### CDP, CP, CRP #### [facility] [address] [place] [phone] Telesales Advisor: KASSIDY Adamsonlatelet mean volume (Bld) [Entitic vol]9.0 fL Normal6.0-12.0[facility] Medical CenterComment on above:Performed By: #### CDP, CP, CRP #### [facility] [address] [place] [address] Telesales Advisor: Rafael Adamson (Bld) [#/Vol]938 10*3/dIPnwy275-034Qth [facility] Medical CenterCombrighton hospital on above:Performed By: #### CDP, CP, CRP #### [facility] [address] [place] [address] Telesales Advisor: FRANKI AdamsonBC (Bld) [#/Vol]3.25 10*6/uLLow4.50-5.90Bon SecMercy Health Urbana HospitalCombrighton hospital on above:Performed By: #### CDP, CP, CRP #### [facility] [address] [place] [address] Telesales Advisor: Jc Adamson. Basophil0.03 k/uLNormal0.00-0.20Holzer Health SystemCombrighton hospital on above:Performed By: #### CDP, CP, CRP #### [facility] [address] [place] [address] Telesales Advisor: MDAbs. SnowImm.Granulocyte0.06 k/uLNormal0.00-0.30Hol[facility] Health SystemCombrighton hospital on above:Performed By: #### CDP, CP, CRP #### [facility] [address] [place] [address] Telesales Advisor: MDAbs. SnowNeutrophil (Seg)6.76 k/uLHigh2.1-6.5MerElmira Psychiatric CenterCombrighton hospital on above:Performed By: #### CDP, CP, CRP #### [facility] [address] [place] [address] Telesales Advisor: Jason Adamsonhocytes (Bld) [#/Vol]2.61 10*3/uLNormal 1.00-4.80Hol[facility] Health SystemCombrighton hospital on above:Performed By: #### CDP, CP, CRP #### [facility] [address] [place], [place] [id number] Telesales Advisor: Amado Adamsoncytaditya (Bld) [#/Vol]1.05 10*3/uLHigh0.00-1.00 [facility] Health SystemComment on above:Performed By: #### CDP, CP, CRP #### [facility] [address] [place] [address] Telesales Advisor: Kae Adamsonophil (Seg)63 %Tnedic29-27ZxvhkHolzer Health SystemComment on above:Performed By: #### CDP, CP, CRP #### [facility] [address] [place] [address] Telesales Advisor: VISH Adamson (Bld) [#/Vol]10.7 10*3/uLNormal3.5-11.0Holzer Health SystemComment on above:Performed By: #### CDP, CP, CRP #### [facility] [address] [place] [address] Telesales Advisor: Grzegorz Adamson Metabolic Profon [id number] [Mass/Vol] 3.4 g/dLLow3.5-5.2MSelect Medical Specialty Hospital - Cleveland-FairhillComment on above:Performed By: #### CDP, CP, CRP #### [facility] [address] [place] [phone] Telesales Advisor: Ritchie Adamsonline Lcdd741 U/PGbmofn58-350OabzyHolzer Health SystemComment on above:Performed By: #### CDP, CP, CRP #### [facility] [address] [place] [address] Telesales Advisor: Willard Ramirez MDALT [Catalytic activity/Vol]21 U/LNormal5-41Hol[facility] Health SystemCombrighton hospital on above:Performed By: #### CDP, CP, CRP #### [facility] [address] [place] [address] Telesales Advisor: Kendrick Adamson gap [Moles/Vol]14 mmol/LNormal9-17Holzer Health SystemComment on above:Performed By: #### CDP, CP, CRP #### [facility] [address] [place] [address] Telesales Advisor: Willard Ramirez MDAST [Catalytic activity/Vol]11 U/LNormal<40Holzer Health SystemComment on above:Performed By: #### CDP, CP, CRP #### [facility] [address] [place] [address] Telesales Advisor: Willard Ramirez MDBilirubin [Mass/Vol]0.2 mg/dLLow0.3-1.2MSelect Medical Specialty Hospital - Cleveland-FairhillComment on above:Performed By: #### CDP, CP, CRP #### [facility] [address] [place] [phone] Telesales Advisor: Willard Ramirez MDBUN/CRE Gwgqa16Tswgpr4-23Mbzmw [facility] Comment on above:Performed By: #### CDP, CP, CRP #### [facility] [address] [place] [phone] Telesales Advisor: ALBA Adamsonalcium [Mass/Vol]9.5 mg/dLNormal8.6-10.4Holzer Health SystemComment on above:Performed By: #### CDP, CP, CRP #### [facility] [address] [place] [address] Telesales Advisor: ALBA Adamsonhloride [Moles/Vol]101 mmol/EVfpwcj97-575KjgbnHolzer Health SystemComment on above:Performed By: #### CDP, CP, CRP #### [facility] [address] [place] [phone] Telesales Advisor: ABLA AdamsonO2 [Moles/Vol]20 mmol/ZTtdtzk39-07YdielHolzer Health SystemComment on above:Performed By: #### ELMIRA ARNAA, CRP #### [facility] [address] [place], [place] [id number] Telesales Advisor: ALBA Adamsonreatinine [Mass/Vol]1.2 mg/dLNormal0.7-1.2MSelect Medical Specialty Hospital - Cleveland-FairhillComment on above:Performed By: #### SUMIT CP, CRP #### [facility] [address] [place] [address] Telesales Advisor: Willard Ramirez MDGFR/1.73 sq M.predicted among non-blacks MDRD (S/P/Bld) [Vol rate/Area]68 mL/min/{1.73_m2}Normal>60[facility] Comment on above:Result Comment: These results are not intended for [...] or following therapy that affects renal tubular secretion.Performed By: #### ELMIRA ARANA, CRP #### [facility] [address] [place], [place] [id number] Telesales Advisor: Willard Ramirez MDGlucose [Mass/Vol]130 mg/nCQzgj51-50HcrvcSelect Medical Specialty Hospital - Cleveland-FairhillComment on above:Performed By: #### ELMIRA ARANA, CRP #### [facility] [address] [place], [place] [id number] Telesales Advisor: KASSIDY Adamsonotassium [Moles/Vol]4.7 mmol/LNormal3.7-5.3MSelect Medical Specialty Hospital - Cleveland-FairhillComment on above:Performed By: #### ELMIRA ARANA, CRP #### [facility] [address] [place] [phone] Telesales Advisor: KASSIDY Adamsonrotein [Mass/Vol]6.9 g/dLNormal6.4-8.3MSelect Medical Specialty Hospital - Cleveland-FairhillComment on above:Performed By: #### SUMIT CP, CRP #### [facility] [address] [place] [phone] Telesales Advisor: BENJAMÍN Adamsonodium [Moles/Vol]135 mmol/CKsrskj737-722XwegvHolzer Health SystemComment on above:Performed By: #### SUMIT CP, CRP #### [facility] [address] [place] [phone] Telesales Advisor: Willard Ramirez MDUrea nitrogen [Mass/Vol]20 mg/dLNormal8-23Hol[facility] Health SystemComment on above:Performed By: #### ELMIRA ARANA, CRP #### [facility] [address] [place] [phone] Telesales Advisor: ALBA Adamsonomprehensive metabolic panelon [id number] [Mass/Vol]3.4 g/dLLow3.5 - 5.2 g/dLBon Secours [facility] - Andersony HealthALP [Catalytic activity/Vol]127 U/L40 - 129 U/LBon [facility] Anders[facility] HealthALT [Catalytic activity/Vol]21 U/L5 - 41 U/LBon Secours Mercy HealthAnion gap [Moles/Vol]14 mmol/L9 - 17 mmol/LBon Secours Mercy HealthAST [Catalytic activity/Vol]11 U/L NINF - 40 U/LBon Secours Mercy HealthBilirubin [Mass/Vol]0.2 mg/dLLow0.3 - 1.2 mg/dLBon Secours Mercy HealthCalcium [Mass/Vol]9.5 mg/dL8.6 - 10.4 mg/dLBon Secours Mercy HealthChloride [Moles/Vol]101 mmol/L98 - 107 mmol/LBon [facility] Andersony HealthCO2 [Moles/Vol]20 mmol/L20 - 31 mmol/LBon [facility] Creatinine [Mass/Vol]1.2 mg/dL0.7 - 1.2 mg/dLBon [facility] CenterAutoparts24Bath Community HospitalEst, Dick Filt Rate68- PINFBon [facility]ena Regional Medical CenterComment on above: These results are not intended for use [...] following therapy that affects renal tubular secretion. Glucose [Mass/Vol]130 mg/wMIdyu44 - 99 mg/dLBon [facility] [employer] Interpretation and review of laboratory resultsAbnormalBon [facility] Potassium [Moles/Vol]4.7 mmol/L3.7 - 5.3 mmol/LBon [facility] CenterPowerPractical Reg[facility] Hospital CompanyProtein [Mass/Vol]6.9 g/dL6.4 - 8.3 g/dLBon [facility] AkesoGenXBath Community HospitalSodium [Moles/Vol]135 mmol/L135 - 144 mmol/LBon [facility] CenterTreatsie [facility] Medical CenterUrea nitrogen [Mass/Vol]20 mg/dL8 - 23 mg/dLBon [facility] Medical CenterUrea nitrogen/Creatinine [Mass ratio]17 mg/mg9 - 20Bon [facility] AkesoGenXBath Community HospitalNo Panel Informationon [id number] [facility] AkesoGenXBath Community HospitalAmbulatory Visit Summaryon 21-07-0132Eoekvqxueh Visit SummaryAmbulatory Visit Summary JASMEET PERDUE Heavenly :1960 Visit Date:04/30/2024 Ambulatory Visit Instructions Your Diagnosis S/P colon resection Ileostomy present Diverticulitis of colon Hypovolemic shock SANDEEP (acute kidney injury) S/P splenectomy BMI 23.0-23.9, adult Your Care Team Attending Physician - Tristen AQUINO, BERNARD-Sherie JONES Primary Care Physician - Tristen AQUINO, APPLICATION ADMINISTRATOR-Sherie JONES This Is Your Medications List [facility] Prescription (baclofen 10 mg tablet) acetaminophen-oxycodone (acetaminophen-oxycodone [...] (11/09/2020), Epidural injection of lumbar spine using fluoroscopicguidance (09/30/2020), Injection of nerve root of lumbar [...] Follow-Up Appointments Monday 2:40 PM EST With: Tristen MSN, APPLICATION ADMINISTRATOR-PROCUREMENT BUYER, Sherie Dash Where: [facility] [address] [place] [address]- Monday 7:20 AM EDT With: Tristen AQUINO, Sherie HARLEY Where: [facility] [place] [address] [place] [address]- You Need to Schedule the Following Appointments Follow Up with Tristen AQUINO, Sherie HARLEY When: In 1 month Where: [address] [place] [phone] Medications What How Much When Instructions Unchanged [...] a survey via text or e-mail asking (more content not included)...[facility] CenterFasouthcoast behavioral health hospital Medicine Office/Clinic Note on [id number] Medicine Office/Clinic NoteFami Medicine Office/Clinic Note Chief Complaint Follow-up post-surgery and management of acute kidney injury. HPI Staff TCM followup: Hospital: [facility] Visit date: 04-10-24 - 04-25-24 Symptoms the patient presented with: Splenectomy, colon resection with Stoma Current concerns: circulation in hands , stinging sensation in left upper thigh History of Present Illness 63 Years old Male here for Hospital f/u [facility] 04/25, for ileostomy as well [...] clinic: Dr Andrade Cardiovascular surgeon: Dr Yan Software Qa System Specialist: Dr Hall Games Manager: [facility] Cr/eGFR: eGFR: 95 mL/min/1.73 [...] VLDL: 18 mg/dL (08/01/23 08:56:00) Future Appointments [facility] [place] Appt. Date: 08/02/2024 7:20 AM Scheduled [place]: [place], [address] Phone: [phone] Fax: [phone] The patient underwent surgery following a diagnosis [...] being on any specific home therapy regiment. Thepatient expresses having gone through significant medical challenges and is under antibiotic infusion treatment due to associated complications from recent procedures. He is scheduled for blood work to assess current levels, supported by his surgeon in [place] this Review of Systems PHQ Score Initial [...] area noted in the middle, edges well proximalno active drainage and no erythema. Psychiatric: Alert [...] maintain good hydration. Will closely monitor as wellfollow-up with me in 1 month 2. Ileostomy present (Z93.2: Ileostomy status) Continuously provide care instructions for managing ileostomy, including skin care and signs of complications such as infection. 3. Diverticulitis of colon (K57.32 (more content not included)...[facility] Medical CenterComment on above:Result Comment: Electronically Signed By: Tristen AQUINO, APPLICATION ADMINISTRATOR-PROCUREMENT BUYER, Sherie Dash\.br\Date and Time Signed: 04/30/24 17:41 ESTBasic Metabolic Panelon [id number] gap [Moles/Vol]9 mmol/LNormal9-15[facility] CenterComment on above:Performed By: #### PGLU #### [facility] [address] [place] [address] Uyfqoaa [Mass/Vol]8.9 mg/dLNormal8.5-9.9[facility] CenterComment on above:Performed By: #### PGLU #### [facility] [address] [place] [address] Gwnkgxeo [Moles/Vol]104 mmol/TMfqigr00-831MfskuArkansas Valley Regional Medical CenterComment on above:Performed By: #### PGLU #### [facility] [address] [place] [address] GV6 [Moles/Vol]27 mmol/PMatggz76-55HimpsArkansas Valley Regional Medical Center Comment on above:Performed By: #### PGLU #### [facility] [address] [place] [address] Cfxenruqzw [Mass/Vol]1.11 mg/dLNormal0.70-1.20[facility] CenterComment on above:Performed By: #### PGLU #### [facility] [address] [place] [address] PST51.9Normal>60[facility] CenterComment on above:Result Comment: Pediatric calculator link https://www.kidney.org/professionals/kdoqi/gfr_calculatorped Effective Feb [...] or following therapy that affects renal tubular secretion.Performed By: #### PGLU #### [facility] [address] [place] [address] Gkjsypf [Mass/Vol]102 mg/dLCritically ctgn30-02OfegwSky Ridge Medical CenterComment on above:Performed By: #### PGLU #### [facility] [address] [place] [address] Hebpponog [Moles/Vol]3.8 mmol/LNormal3.4-4.9[facility] CenterComment on above:Performed By: #### PGLU #### [facility] [address] [place] [address] Hrqaqr [Moles/Vol]140 mmol/GVyowff850-202ZsokdArkansas Valley Regional Medical CenterComment on above:Performed By: #### PGLU #### [facility] [address] [place] [place] [address] Imvn nitrogen [Mass/Vol]7 mg/dLLow8-23[facility] Comment on above:Performed By: #### PGLU #### [facility] [address] [place] [address] Ddaur metabolic 2000 panelon [id number] gap [Moles/Vol]9 mmol/L [facility] Mercy HealthCalcium [Mass/Vol]8.9 mg/dL8.5 - 9.9 mg/dLBon [facility] Medical CenterChloride [Moles/Vol]104 mmol/LBon [facility] Medical CenterCO2 [Moles/Vol]27 mmol/LBon [facility] Medical CenterCreatinine [Mass/Vol]1.11 mg/dL0.70 - 1.20 mg/dLBon [facility] Medical CenterGFR/1.73 sq M.predicted among non-blacks MDRD (S/P/Bld) [Vol rate/Area]73.9 mL/min/{1.73_m2}60 - PINFBon [facility] Regional Medical CenterComment on above:Pediatric calculator link https://www.kidney.org/professionals/kdoqi/gfr_calculatorped Effective Feb 21, 2022 [...] following therapy that affects renal tubular secretion. Glucose [Mass/Vol]102 mg/uBKbxs80 - 99 mg/dLBon [facility] Interpretation and review of laboratory resultsAbnormalBon [facility] Potassium [Moles/Vol]3.8 mmol/LBon [facility] Medical CenterSodium [Moles/Vol]140 mmol/LBon [facility] Medical CenterUrea nitrogen [Mass/Vol]7 mg/dLLow8 - 23 mg/dLBon [facility] Hospital and SchoolC-Reactive Proteinon [id number] High sensitivity method [Mass/Vol]24.1 mg/LHigh0.0 - 5.0 mg/LBon [facility] CenterCRP [Mass/Vol]24.1 mg/LCritically high0.0-5.0[facility] Comment on above:Performed By: #### CBCND #### [facility] [address] [place] [address] CBC W Auto Differential panel (Bld)on [id number] Ql (Bld)2+Bon [facility] CenterBasophils (Bld) [#/Vol]0.2 10*3/uL0.0 - 0.2 K/uL Bon [facility] CenterBasophils/100 WBC (Bld)1.0 %[facility] Eosinophils (Bld) [#/Vol]0.0 10*3/uL0.0 - 0.7 K/uLBon [facility] Eosinophils/100 WBC (Bld)1.4 %[facility] HospitalErythrocyte distribution width (RBC) [Ratio]15.3 %High11.5 - 14.5 %[facility] HospitalHematocrit (Bld) [Volume fraction]28.7 %Low42.0 - 52.0 %[facility] HospitalHemoglobin (Bld) [Mass/Vol]9.4 g/dLLow14.0 - 18.0 g/dLBon [facility] Interpretation and review of laboratory resultsAbnormalBon [facility] Lymphocytes (Bld) [#/Vol]1.4 10*3/uL1.0 - 4.8 K/uLInova Fair Oaks Hospital Lymphocytes/100 WBC (Bld)5.0 %[facility] HospitalMacrocytes Ql (Bld)1+[facility] Oaks HospitalH (RBC) [Entitic mass]30.7 pg27.0 - 31.3 pgInova Fair Oaks HospitalMCHC (RBC) [Mass/Vol]32.8 %Low33.0 - 37.0 %[facility] MCV (RBC) [Entitic vol]93.8 oRQygj23.0 - 92.2 fLInova Fair Oaks Hospital Monocytes (Bld) [#/Vol]0.6 10*3/uL0.2 - 0.8 K/uLInova Fair Oaks Hospital Monocytes/100 WBC (Bld)3.9 %[facility] HospitalNeutrophils (Bld) [#/Vol] 13.4 10*3/uLHigh1.4 - 6.5 K/uLBon [facility] Regional Medical CenterNucleated RBC/100 WBC (Bld) [Ratio]1 %/100 WBCBon Secours Mercy HealthPathologist interpretation (Bld) [Interp]YesInova Fair Oaks HospitalComment on above:Sent for Pathology Review Platelets (Bld) [#/Vol]970 10*3/uLCritically upia062 - 400 K/uLJohnston Memorial Hospital HealthPlatelets LM Ql (Bld)IncreasedBon [facility] Regional Medical CenterPoikilocytosis LM Ql (Bld)2+Bon SecRapides Regional Medical Center HealthPolychromasia LM Ql (Bld)1+Bon [facility] HealthRBC (Bld) [#/Vol]3.06 10*6/uLLowBon [facility] CenterSegmented neutrophils/100 WBC (Bld)86.0 %Bon [facility] CenterSmudge cells LM Ql (Bld) 4.9Bon SecMercy Health Urbana HospitalVariant lymphocytes/100 WBC (Bld)4 %Bon [facility] CenterWBC (Bld) [#/Vol]15.6 10*3/uLHigh4.8 - 10.8 K/uLInova Fair Oaks Hospital CALL Zhu LCRHB tel. [phone], plt results called to and read back by ramiro jane, 04/25/2024 06:43, by [facility] With Platelet and Differentialon [id number] Consult HematologyYeArkansas Valley Regional Medical CenterComment on above:Order Comment: CALL Zhu LCRHB tel. [phone],plt results called to and read back by ramiro jane,04/25/2024 06:43, byCHATRResult Comment: Sent for Pathology ReviewPerformed By: #### CBCWD #### [facility] [address] [place] [address] Urusbfyy Slide ReviewIncreasedValley View Hospital Comment on above:Order Comment: CALL Zhu LCRHB tel. [phone],plt results called to and read back by ramiro jane,04/25/2024 06:43, byCHATRPerformed By: #### CBCWD #### [facility] [address] [place] [address] Qbyvyqrgkazi Ql (Bld)2+[facility] View HospitalComment on above:Order Comment: CALL Zhu LCRHB tel. [phone],plt results called to and read back by ramiro jane,04/25/2024 06:43, byCHATRPerformed By: #### CBCWD #### [facility] [address] [place] [address] Mfatreqe Lymphs4 %[facility] View HospitalComment on above:Order Comment: CALL Zhu LCRHB tel. [phone],plt results called to and read back by ramiro jane,04/25/2024 06:43, byCHATRPerformed By: #### CBCWD #### [facility] [address] [place] [address] Okscfulqp (Bld) [#/Vol]0.2 10*3/uLNormal0.0-0.2MSky Ridge Medical CenterComment on above:Order Comment: CALL Zhu LCRHB tel. [phone],plt results called to and read back by ramiro jane,04/25/2024 06:43, byCHATRPerformed By: #### CBCWD #### [facility] [address] [address] Hfannjwky/100 WBC (Bld)1.0 %[facility] Comment on above:Order Comment: CALL Zhu LCRHB tel. [phone],plt results called to and read back by ramiro jane,04/25/2024 06:43, byCHATRPerformed By: #### CBCWD #### [facility] [address] [facility] [address] Fyshytvucby (Bld) [#/Vol]0.0 10*3/uLNormal0.0-0.7[facility] CenterComment on above:Order Comment: CALL Zhu LCRHB tel. [phone],plt results called to and read back by ramiro jane,04/25/2024 06:43, byCHATRPerformed By: #### CBCWD #### [facility] [address] [place] [address] Vsvnvyduybe/100 WBC (Bld)1.4 %[facility] Comment on above:Order Comment: CALL Zhu LCRHB tel. [phone],plt results called to and read back by ramiro jane,04/25/2024 06:43, byCHATRPerformed By: #### CBCWD #### [facility] [address] [place] [address] Atjgxuysgvu (Bld) [#/Vol]1.4 10*3/uLNormal1.0-4.8[facility] CenterComment on above:Order Comment: CALL Zhu LCRHB tel. [phone],plt results called to and read back by ramiro jane,04/25/2024 06:43, byCHATRPerformed By: #### CBCWD #### [facility] [address] [place] [address] Vwopbummlgd/100 WBC (Bld)5.0 %[facility] Comment on above:Order Comment: CALL Zhu LCRHB tel. [phone],plt results called to and read back by ramiro jane,04/25/2024 06:43, byCHATRPerformed By: #### CBCWD #### [facility] [address] [place] [address] Rtefmkocdq5+[facility] View HospitalComment on above: Order Comment: CALL Zhu LCRHB tel. [phone],plt results called to and read back by ramiro jane,04/25/2024 06:43, byCHATRPerformed By: #### CBCWD #### [facility] [address] [place] [address] Maroijepa (Bld) [#/Vol]0.6 10*3/uLNormal0.2-0.8[facility] CenterComment on above:Order Comment: CALL Zhu LCRHB tel. [phone],plt results called to and read back by ramiro jane,04/25/2024 06:43, byCHATRPerformed By: #### CBCWD #### [facility] [address] [place] [address] Wvuoxwvjx/100 WBC (Bld)3.9 %[facility] Comment on above:Order Comment: CALL Zhu LCRHB tel. [phone],plt results called to and read back by ramiro jane,04/25/2024 06:43, byCHATRPerformed By: #### CBCWD #### [facility] [address] [address] Hfwdaakcuxx (Bld) [#/Vol]13.4 10*3/uLCritically high1.4-6.5[facility] CenterComment on above:Order Comment: CALL Zhu LCRHB tel. [phone],plt results called to and read back by ramiro jane,04/25/2024 06:43, byCHATRPerformed By: #### CBCWD #### [facility] [address] [address] Eulnpwrvxuj/100 WBC (Bld)86.0 %[facility] Comment on above:Order Comment: CALL Zhu LCRHB tel. [phone],plt results called to and read back by ramiro jane,04/25/2024 06:43, byCHATRPerformed By: #### CBCWD #### [facility] [address] [place] [address] Ivhtfbagu RBC1 /100 WBCNormalArkansas Valley Regional Medical CenterComment on above:Order Comment: CALL Zhu LCRHB tel. [phone],plt results called to and read back by ramiro jane,04/25/2024 06:43, byCHATRPerformed By: #### CBCWD #### [facility] [address] [address] Jheudevbdkzvyp0+[facility] HospitalComment on above: Order Comment: CALL Zhu LCRHB tel. [phone],plt results called to and read back by ramiro jane,04/25/2024 06:43, byCHATRPerformed By: #### CBCWD #### [facility] [address] [address] Vfkcgwlrrwhmi1+NormalArkansas Valley Regional Medical CenterComment on above: Order Comment: CALL Zhu LCRHB tel. [phone],plt results called to and read back by ramiro jane,04/25/2024 06:43, byCHATRPerformed By: #### CBCWD #### [facility] [address] [address] Fjrxzp Cells4.9NormalArkansas Valley Regional Medical CenterComment on above: Order Comment: CALL Zhu LCRHB tel. [phone],plt results called to and read back by ramiro jane,04/25/2024 06:43, byCHATRPerformed By: #### CBCWD #### [facility] [address] [place] [address] Stetktbeigs distribution width (RBC) [Ratio]15.3 %Critically high 11.5-14.5[facility] CenterComment on above:Order Comment: CALL Zhu LCRHB tel. [phone],plt results called to and read back by ramiro jane, 04/25/2024 06:43, byCHATRPerformed By: #### CBCWD #### [facility] [address] [address] Vuqkiplsyl (Bld) [Volume fraction]28.7 %Low42.0-52.0[facility] CenterComment on above:Order Comment: CALL Zhu LCRHB tel. [phone],plt results called to and read back by ramiro jane,04/25/2024 06:43, byCHATRPerformed By: #### CBCWD #### [facility] [address] [place] [address] Qulskgkjrw (Bld) [Mass/Vol]9.4 g/dLLow14.0-18.0[facility] CenterComment on above:Order Comment: CALL Zhu LCRHB tel. [phone],plt results called to and read back by ramiro jane,04/25/2024 06:43, byCHATRPerformed By: #### CBCWD #### [facility] [address] [address] FWP (RBC) [Entitic mass]30.7 syXgrasu60.0-31.3MSky Ridge Medical CenterComment on above:Order Comment: CALL Zhu LCRHB tel. [phone],plt results called to and read back by ramiro jane,04/25/2024 06:43, byCHATR Performed By: #### CBCWD #### [facility] [address] [place] [address] VAUV64.8 %Low33.0-37.0[facility] CenterComment on above: Order Comment: CALL Zhu LCRHB tel. [phone],plt results called to and read back by ramiro jane,04/25/2024 06:43, byCHATRPerformed By: #### CBCWD #### [facility] [address] [place] [address] YWP (RBC) [Entitic vol]93.8 fLCritically high79.0-92.2MSky Ridge Medical CenterComment on above:Order Comment: CALL Zhu LCRHB tel. [phone],plt results called to and read back by ramiro jane,04/25/2024 06:43, byCHATRPerformed By: #### CBCWD #### [facility] [address] [place] [address] Bwgxltrko (Bld) [#/Vol]970 10*3/uLCritically piin762-066AcabbArkansas Valley Regional Medical CenterComment on above:Order Comment: CALL Zhu LCRHB tel. [phone],plt results called to and read back by ramiro jane,04/25/2024 06:43, byCHATRPerformed By: #### CBCWD #### [facility] [address] [place] [address] XMD (Bld) [#/Vol]3.06 10*6/uLLow4.70-6.10[facility] CenterComment on above:Order Comment: CALL Zhu LCRHB tel. [phone],plt results called to and read back by ramiro jane,04/25/2024 06:43, byCHATR Performed By: #### CBCWD #### [facility] [address] [place] [place] [address] AXA (Bld) [#/Vol]15.6 10*3/uLCritically high4.8-10.8[facility] CenterComment on above:Order Comment: CALL Zhu LCRHB tel. [phone],plt results called to and read back by ramiro jane,04/25/2024 06:43, byCHATRPerformed By: #### CBCWD #### [facility] [address] [facility] [address] XRG High sensitivity method [Mass/Vol]on [id number] and review of laboratory resultsAbnoSturgis Regional Hospital Consult Hematologyon [id number] Consult HematologyReviewed [facility] View HospitalComment on above:Result Comment: The peripheral blood smear is reviewed. There is leukocytosis. [...] completely excluded. Clinical correlation is necessary. MJ [id number] By: #### CBCND #### [facility] [address] [place] [address] Apzsn Metabolic Panelon 28-56-9635Dwlif gap [Moles/Vol]9 mmol/L Normal9-15[facility] CenterComment on above:Performed By: #### PGLU #### [facility] [address] [place] [place] [address] Sxhgtbc [Mass/Vol]8.7 mg/dLNormal8.5-9.9[facility] CenterComment on above:Performed By: #### PGLU #### [facility] [address] [place] [address] Ahshppxr [Moles/Vol]101 mmol/TOnazrx64-840KhcqkArkansas Valley Regional Medical CenterComment on above:Performed By: #### PGLU #### [facility] [address] [place] [place] [address] NY1 [Moles/Vol]30 mmol/VVnpqrv91-60BbfuiArkansas Valley Regional Medical Center Comment on above:Performed By: #### PGLU #### [facility] [address] [place] [place] [address] Aicxiombcq [Mass/Vol]1.11 mg/dLNormal0.70-1.20[facility] CenterComment on above:Performed By: #### PGLU #### [facility] [address] [place] [address] VNW52.9Normal>60[facility] CenterComment on above:Result Comment: Pediatric calculator link https://www.kidney.org/professionals/kdoqi/gfr_calculatorped Effective Feb [...] or following therapy that affects renal tubular secretion.Performed By: #### PGLU #### [facility] [address] [place] [address] Wvznzrh [Mass/Vol]104 mg/dLCritically zsuh36-69FscvoSky Ridge Medical CenterComment on above:Performed By: #### PGLU #### [facility] [address] [place] [address] Ulzhyhugm [Moles/Vol]3.8 mmol/LNormal3.4-4.9[facility] CenterComment on above:Performed By: #### PGLU #### [facility] [address] [place] [place] [address] Joxqnc [Moles/Vol]140 mmol/HVaxozw516-161DibcsArkansas Valley Regional Medical CenterComment on above:Performed By: #### PGLU #### [facility] [address] [place] [place] [address] Hfmn nitrogen [Mass/Vol]11 mg/dLNormal8-23Ar[facility] CenterComment on above:Performed By: #### PGLU #### [facility] [address] [place] [address] Inklx metabolic 2000 panelon 82-43-2329Fkjnj gap [Moles/Vol]9 mmol/L [facility] [place] AkesoGenXy HealthCalcium [Mass/Vol]8.7 mg/dL8.5 - 9.9 mg/dLBon Secours Mercy HealthChloride [Moles/Vol]101 mmol/LBon Secours AkesoGenXy HealthCO2 [Moles/Vol]30 mmol/LBon Secours AkesoGenXy HealthCreatinine [Mass/Vol]1.11 mg/dL0.70 - 1.20 mg/dLBon Secours AkesoGenXy HealthGFR/1.73 sq M.predicted among non-blacks MDRD (S/P/Bld) [Vol rate/Area]73.9 mL/min/{1.73_m2}60 - PINFBon SecSharetribeComment on above:Pediatric calculator link https://www.kidney.org/professionals/kdoqi/gfr_calculatorped Effective Feb 21, 2022 [...] following therapy that affects renal tubular secretion. Glucose [Mass/Vol]104 mg/wLBtwd44 - 99 mg/dLBon [employer] Interpretation and review of laboratory resultsAbnormalInova [facility]aks Hospital Potassium [Moles/Vol]3.8 mmol/LBon [facility] Medical CenterSodium [Moles/Vol]140 mmol/LBon [facility] Medical CenterUrea nitrogen [Mass/Vol]11 mg/dL8 - 23 mg/dLBon [facility]ver[facility] HealthC W Auto Differential panel (Bld) on [id number] and review of laboratory resultsAbnormalInova Fair Oaks HospitalMCHC (RBC) [Mass/Vol]33.2 %33.0 - 37.0 %[facility] Segmented neutrophils/100 WBC (Bld)70.7 %[facility] With Platelet and Differentialon 30-32-3960Yjoqraekd (Bld) [#/Vol]0.1 10*3/uLNormal0.0-0.2Bon [facility] on above: Performed By: #### PGLU #### [facility] [address] [facility] [address] Zuavologb/100 WBC (Bld)0.5 %NormalBon [facility] - Andersonment on above:Performed By: #### PGLU #### [facility] [address] [place] [address] Czmezaqwccr (Bld) [#/Vol]0.3 10*3/uLNormal0.0-0.7Bon [facility] on above:Performed By: #### PGLU #### [facility] [address] [place] [address] Oilzwocmgeo/100 WBC (Bld)2.1 %NormalAugusta Health on above:Performed By: #### PGLU #### [facility] [address] [facility] [address] Xalbfdeiesl distribution width (RBC) [Ratio]15.4 %Critically high 11.5-14.5Bon [facility] on above:Performed By: #### PGLU #### [facility] [address] [place] [address] Gmrxudgprk (Bld) [Volume fraction]27.1 %Low42.0-52.0[facility] Medical CenterComment on above:Performed By: #### PGLU #### [facility] [address] [facility] [address] Womxvdbosf (Bld) [Mass/Vol]9.0 g/dLLow14.0-18.0[facility] HealthComment on above:Performed By: #### PGLU #### [facility] [address] [facility] [address] Wxrdimntupd (Bld) [#/Vol]2.7 10*3/uLNormal1.0-4.8[facility] Medical CenterComment on above:Performed By: #### PGLU #### [facility] [address] [facility] [place] [address] Boveyhnokvl/100 WBC (Bld)16.7 %NormalBon Secours [facility] Heights Medical CenterComment on above:Performed By: #### PGLU #### [facility] [address] [facility] [address] YKZ (RBC) [Entitic mass]30.7 noRohkpw20.0-31.3[facility] Medical CenterComment on above:Performed By: #### PGLU #### [facility] [address] [facility] [address] XGFA84.2 %Ksmxef57.0-37.0[facility] CenterComment on above:Performed By: #### PGLU #### [facility] [address] [facility] [address] VGH (RBC) [Entitic vol]92.5 fLCritically high79.0-92.2[facility] HealthComment on above:Performed By: #### PGLU #### [facility] [address] [facility] [address] Thzqjmzjd (Bld) [#/Vol]1.3 10*3/uLCritically high0.2-0.8[facility] Medical CenterComment on above:Performed By: #### PGLU #### [facility] [address] [place] [address] Mzdnbqwoi/100 WBC (Bld)7.8 %NormalBon [facility] Medical CenterComment on above:Performed By: #### PGLU #### [facility] [address] [facility] [address] Aidozgjynog (Bld) [#/Vol]11.3 10*3/uLCritically high1.4-6.5Bon SecMercy Health Urbana HospitalComment on above:Performed By: #### PGLU #### [facility] [address] [facility] [address] Omwyurhldcj/100 WBC (Bld)70.7 %[facility] Comment on above:Performed By: #### PGLU #### [facility] [address] [facility] [address] Roasromkj (Bld) [#/Vol]836 10*3/uLCritically fpot542-908Wth SecMercy Health Urbana HospitalComment on above:Performed By: #### PGLU #### [facility] [address] [facility] [address] NSS (Bld) [#/Vol]2.93 10*6/uLLow4.70-6.10Bon [facility] Comment on above:Performed By: #### PGLU #### [facility] [address] [facility] [address] SLT (Bld) [#/Vol]16.0 10*3/uLCritically high4.8-10.8Bon SecMercy Health Urbana HospitalComment on above:Performed By: #### PGLU #### [facility] [address] [facility] [address] NBZ W Auto Differential panel (Bld)on [id number] and review of laboratory resultsAbnormalInova Fair Oaks HospitalMCHC (RBC) [Mass/Vol]32.9 %Low33.0 - 37.0 %[facility] HospitalSegmented neutrophils/100 WBC (Bld)64.7 %[facility] CBC With Platelet and Differentialon 62-25-8606Daxtmazkf (Bld) [#/Vol]0.1 10*3/uLNormal0.0-0.2Bon [facility] on above:Performed By: #### RENAL #### [facility] [address] [address] Zoowfbjos/100 WBC (Bld)0.8 %[facility] on above:Performed By: #### RENAL #### [facility] [address] [address] Opixlbsomsb (Bld) [#/Vol]0.5 10*3/uLNormal0.0-0.7Bon [facility] on above:Performed By: #### RENAL #### [facility] [address] [address] Nhxdrueedkk/100 WBC (Bld)3.6 %[facility] on above:Performed By: #### RENAL #### [facility] [address] [address] Ynqplqsrrpi distribution width (RBC) [Ratio]15.2 %Critically high 11.5-14.5Bon [facility] on above:Performed By: #### RENAL #### [facility] [address] [address] Bnmihkkvgj (Bld) [Volume fraction]25.2 %Low42.0-52.0Bon [facility] on above:Performed By: #### RENAL #### [facility] [address] [address] Rxzbyywxng (Bld) [Mass/Vol]8.3 g/dLLow14.0-18.0[facility] HealthComment on above:Performed By: #### RENAL #### [facility] [address] [place] [place] [address] Vzthelhxlem (Bld) [#/Vol]2.4 10*3/uLNormal1.0-4.8[facility] HealthComment on above:Performed By: #### RENAL #### [facility] [address] [facility] [address] Fdejewhlooy/100 WBC (Bld)17.8 %NormalBon Secours [facility] - Andersony HealthComment on above:Performed By: #### RENAL #### [facility] [address] [facility] [address] HGL (RBC) [Entitic mass]30.7 tfMrlgzm77.0-31.3[facility] Anders[facility] HealthComment on above:Performed By: #### RENAL #### [facility] [address] [facility] [address] RKEL67.9 %Low33.0-37.0[facility] CenterComment on above: Performed By: #### RENAL #### [facility] [address] [facility] [address] RDN (RBC) [Entitic vol]93.3 fLCritically high79.0-92.2[facility] HealthComment on above:Performed By: #### RENAL #### [facility] [address] [facility] [address] Oszflyxsc (Bld) [#/Vol]1.2 10*3/uLCritically high0.2-0.8[facility] HealthComment on above:Performed By: #### RENAL #### [facility] [address] [facility] [address] Ldggiqpiz/100 WBC (Bld)9.2 %NormalBon Secours [facility] Andersony HealthComment on above:Performed By: #### RENAL #### [facility] [address] [place] [place] [address] Rcfnpvbrxjz (Bld) [#/Vol]8.7 10*3/uLCritically high1.4-6.5Bon [facility] CenterComment on above:Performed By: #### RENAL #### [facility] [address] [place] [address] Fnbdofloexl/100 WBC (Bld)64.7 %[facility] Comment on above:Performed By: #### RENAL #### [facility] [address] [place] [address] Mvukwmrek (Bld) [#/Vol]717 10*3/uLCritically bbxj850-559Giy [facility] Medical CenterComment on above:Performed By: #### RENAL #### [facility] [address] [place] [address] UPP (Bld) [#/Vol]2.70 10*6/uLLow4.70-6.10Bon [facility] Comment on above:Performed By: #### RENAL #### [facility] [address] [place] [address] DIF (Bld) [#/Vol]13.5 10*3/uLCritically high4.8-10.8Bon [facility] CenterComment on above:Performed By: #### RENAL #### [facility] [address] [place] [address] QZUB Glucoseon 64-64-1534Exefozj [Mass/Vol]108 mg/jPUfvm99 - 99 mg/dlBon [facility] CenterInterpretation and review of laboratory results AbnormalBon [facility] CenterPerformed onACCU-CHEKBon [facility] CenterBon [facility] Medical CenterGlucose [Mass/Vol]108 mg/dLCritically ufyg16-89Vhmen [facility] Va Medical CenterComment on above:Performed By: #### RENAL #### [facility] [address] [place] [address] ORE Performed onACCU-CHEKNormalArkansas Valley Regional Medical CenterComment on above:Performed By: #### RENAL #### [facility] [address] [place] [address] [phone] Function Panelon 37-82-2212Mrqvpfm [Mass/Vol]2.8 g/dLLow3.5 - 4.6 g/dLBon [facility] HealthAnion gap [Moles/Vol]7 mmol/LLowBon SecDoctors Hospitaly HealthCalcium [Mass/Vol]8.2 mg/dLLow8.5 - 9.9 mg/dLBon [facility]ours [facility] HealthChloride [Moles/Vol]104 mmol/LBon SecRapides Regional [facility] HealthCO2 [Moles/Vol]30 mmol/LBon [facility] HealthCreatinine [Mass/Vol]0.83 mg/dL0.70 - 1.20 mg/dL Bon SecRap[facility] HealthGFR/1.73 sq M.predicted among non-blacks MDRD (S/P/Bld) [Vol rate/Area]60 - PINFBon Adena Regional Medical CenterComment on above:Pediatric calculator link https://www.kidney.org/professionals/kdoqi/gfr_calculatorped Effective Feb 21, 2022 [...] following therapy that affects renal tubular secretion. Glucose [Mass/Vol]99 mg/dL70 - 99 mg/dLBon [facility] HealthInterpretation and review of laboratory resultsAbnormalBon [facility] HealthPhosphate [Mass/Vol]3.5 mg/dL2.3 - 4.8 mg/dLBon [facility]ours [facility] HealthPotassium [Moles/Vol] 3.8 mmol/LBon [facility] HealthSodium [Moles/Vol]141 mmol/LBon [facility] HealthUrea nitrogen [Mass/Vol]11 mg/dL8 - 23 mg/dLBon [facility]ours [facility] HealthBon [facility] HealthAlbumin [Mass/Vol]2.8 g/dLLow3.5-4.6MSky Ridge Medical CenterComment on above:Performed By: #### CBCWD #### [facility] [address] [place] [address] Golsr gap [Moles/Vol]7 mmol/LLow9-15[facility] Comment on above:Performed By: #### CBCWD #### [facility] [address] [place] [place] [address] Bzsocvc [Mass/Vol]8.2 mg/dLLow8.5-9.9[facility] Center Comment on above:Performed By: #### CBCWD #### [facility] [address] [place] [address] Yiqjcvrj [Moles/Vol]104 mmol/VKpwjud98-733OjpiqArkansas Valley Regional Medical CenterComment on above:Performed By: #### CBCWD #### [facility] [address] [place] [address] UW4 [Moles/Vol]30 mmol/HSzemws96-39JaufoArkansas Valley Regional Medical Center Comment on above:Performed By: #### CBCWD #### [facility] [address] [place] [address] Ynipbnxbcl [Mass/Vol]0.83 mg/dLNormal0.70-1.20[facility] CenterComment on above:Performed By: #### CBCWD #### [facility] [address] [place] [address] EEH>90.0Normal>60[facility] CenterComment on above: Result Comment: Pediatric calculator link https://www.kidney.org/professionals/kdoqi/gfr_calculatorped Effective Feb [...] or following therapy that affects renal tubular secretion.Performed By: #### CBCWD #### [facility] [address] [place] [address] Qapafel [Mass/Vol]99 mg/oMXlyhzs34-27AxajfSky Ridge Medical Center Comment on above:Performed By: #### CBCWD #### [facility] [address] [place] [address] Cncnerhiw [Mass/Vol]3.5 mg/dLNormal2.3-4.8[facility] CenterComment on above:Performed By: #### CBCWD #### [facility] [address] [place] [address] Ehintpffg [Moles/Vol]3.8 mmol/LNormal3.4-4.9[facility] CenterComment on above:Performed By: #### CBCWD #### [facility] [address] [place] [address] Nunjgj [Moles/Vol]141 mmol/NRadfhd656-367ZysixArkansas Valley Regional Medical CenterComment on above:Performed By: #### CBCWD #### [facility] [address] [place] [address] Nuhu nitrogen [Mass/Vol]11 mg/dLNormal8-23[facility] CenterComment on above:Performed By: #### CBCWD #### [facility] [address] [place] [address] T-Reactive Proteinon [id number] High sensitivity method [Mass/Vol]22.9 mg/LHigh0.0 - 5.0 mg/LBon [facility] Regional Medical CenterCRP [Mass/Vol]22.9 mg/LCritically high0.0-5.0[facility] CenterComment on above: Performed By: #### CRP ####[facility] [place] [phone] W Auto Differential panel (Bld)on [id number] and review of laboratory resultsAbnormalBon [facility] Regional Medical CenterMCHC (RBC) [Mass/Vol]32.1 %Low33.0 - 37.0 %[facility] CenterSegmented neutrophils/100 WBC (Bld)64.2 %[facility] HealthBon [facility] CBC With Platelet and Differentialon 73-79-6282Pllbywfie (Bld) [#/Vol]0.1 10*3/uLNormal0.0-0.2[facility] Medical CenterComment on above:Performed By: #### RENAL #### [facility] [address] [facility] [address] Faibcpluy/100 WBC (Bld)0.6 %NormalBon [facility] Heights Medical CenterComment on above:Performed By: #### RENAL #### [facility] [address] [facility] [address] Lejmcwszeot (Bld) [#/Vol]0.4 10*3/uLNormal0.0-0.7[facility] Medical CenterComment on above:Performed By: #### RENAL #### [facility] [address] [facility] [address] Wasdrkushci/100 WBC (Bld)3.2 %NormalBon SecMercy Health Urbana HospitalComment on above:Performed By: #### RENAL #### [facility] [address] [facility] [address] Xqjymkkxfpp distribution width (RBC) [Ratio]15.2 %Critically high 11.5-14.5[facility] Medical CenterComment on above:Performed By: #### RENAL #### [facility] [address] [facility] [address] Jvelfbpnkd (Bld) [Volume fraction]26.5 %Low42.0-52.0[facility] Medical CenterComment on above:Performed By: #### RENAL #### [facility] [address] [facility] [address] Savewmdqrz (Bld) [Mass/Vol]8.5 g/dLLow14.0-18.0[facility] Medical CenterComment on above:Performed By: #### RENAL #### [facility] [address] [place] [address] Rolfkrdpzuc (Bld) [#/Vol]2.0 10*3/uLNormal1.0-4.8[facility] Medical CenterComment on above:Performed By: #### RENAL #### [facility] [address] [place] [address] Tafedqufalg/100 WBC (Bld)16.3 %NormalBon [facility] Hospital HealthComment on above:Performed By: #### RENAL #### [facility] [address] [facility] [address] CJL (RBC) [Entitic mass]29.9 duYezgiq67.0-31.3[facility] HealthComment on above:Performed By: #### RENAL #### [facility] [address] [place] [address] YWMS49.1 %Low33.0-37.0[facility] CenterComment on above: Performed By: #### RENAL #### [facility] [address] [facility] [address] EAC (RBC) [Entitic vol]93.3 fLCritically high79.0-92.2[facility] HealthComment on above:Performed By: #### RENAL #### [facility] [address] [facility] [address] Xxvooilsa (Bld) [#/Vol]1.5 10*3/uLCritically high0.2-0.8[facility] HealthComment on above:Performed By: #### RENAL #### [facility] [address] [place] [address] Qwryibxhi/100 WBC (Bld)11.9 %NormalBon [facility] Medical CenterComment on above:Performed By: #### RENAL #### [facility] [address] [facility] [address] Mkadoqmuaut (Bld) [#/Vol]7.9 10*3/uLCritically high1.4-6.5Bon [facility] CenterComment on above:Performed By: #### RENAL #### [facility] [address] [address] Najwnxhbvhh/100 WBC (Bld)64.2 %NormalArkansas Valley Regional Medical Center Comment on above:Performed By: #### RENAL #### [facility] [address] [place] [address] Ulcxspbcj (Bld) [#/Vol]666 10*3/uLCritically jtpy911-533Bkq [facility] CenterComment on above:Performed By: #### RENAL #### [facility] [address] [place] [address] SSL (Bld) [#/Vol]2.84 10*6/uLLow4.70-6.10[facility] Comment on above:Performed By: #### RENAL #### [facility] [address] [place] [address] XRZ (Bld) [#/Vol]12.3 10*3/uLCritically high4.8-10.8Bon [facility] CenterComment on above:Performed By: #### RENAL #### [facility] [address] [facility] [address] EVE High sensitivity method [Mass/Vol]on 61-42-6641Jenbvrcxxveldf and review of laboratory resultsAbnormalHenrico Doctors' Hospital—Henrico CampusEKG Rhythm Stripon 22-10-6020HSTOKCHERRINGTON HOSPITAL LABInova Fair Oaks HospitalPOCT Glucoseon 03-85-9332Kxtzjys [Mass/Vol]127 mg/lSBecu24 - 99 mg/dlBon [facility] Regional Medical CenterInterpretation and review of laboratory results AbnormalInova Fair Oaks HospitalPerformed onACCU-CHEKBon Children's Care Hospital and SchoolGlucose [Mass/Vol]127 mg/dLCritically mugx45-75ZtheqSky Ridge Medical CenterComment on above:Performed By: #### CBCWD #### [facility] [address] [place] [address] UTP Performed onColorado Mental Health Institute at Fort LoganComment on above:Performed By: #### CBCWD #### [facility] [address] [place] [address] Yrbflhp [Mass/Vol]139 mg/dLCritically nukr45-32Mmy [facility] CenterComment on above:Performed By: #### CBCWD #### [facility] [address] [place] [address] Dkxwsjtwnfkydw and review of laboratory resultsAbnormalBon [facility] Medical CenterPerformed onACCU-CHEKBon [facility]ony HealthBon [facility] HealthGlucose [Mass/Vol]135 mg/nIPvui74 - 99 mg/dlBon [facility] Interpretation and review of laboratory resultsAbnormPioneer Community Hospital of Patrick Performed onACCU-CHEKBon [facility] HealthBon [facility] HealthGlucose [Mass/Vol]135 mg/dLCritically utow88-02LakirSky Ridge Medical CenterComment on above:Performed By: #### PGLU #### [facility] [address] [place] [address] VSV Performed [facility] Term HospitalComment on above:Performed By: #### PGLU #### [facility] [address] [place] [address] Xpdvc Function Panelon [id number] [Mass/Vol]2.9 g/dLLow3.5 - 4.6 g/dLBon [facility] Andersony HealthAnion gap [Moles/Vol]7 mmol/LLowBon [facility] HealthCalcium [Mass/Vol]8.2 mg/dLLow8.5 - 9.9 mg/dLBon Secours Mercy HealthChloride [Moles/Vol]102 mmol/LBon [facility] HealthCO2 [Moles/Vol]31 mmol/LBon [facility] Andersony HealthCreatinine [Mass/Vol]0.77 mg/dL0.70 - 1.20 mg/dL Bon [facility] CenterGFR/1.73 sq M.predicted among non-blacks MDRD (S/P/Bld) [Vol rate/Area]60 - PINFBon [facility]ena Regional Medical CenterGlucose [Mass/Vol]120 mg/dLHigh 70 - 99 mg/dLBon [facility] CenterInterpretation and review of laboratory resultsAbnormalBon [facility] Medical CenterPhosphate [Mass/Vol]3.1 mg/dL2.3 - 4.8 mg/dLBon [facility] Medical CenterPotassium [Moles/Vol]3.5 mmol/LBon [facility] Medical CenterSodium [Moles/Vol]140 mmol/LBon [facility] Medical CenterUrea nitrogen [Mass/Vol]12 mg/dL8 - 23 mg/dLBon [facility] Albumin [Mass/Vol]2.9 g/dLLow3.5-4.6MSky Ridge Medical CenterComment on above:Performed By: #### PGLU #### [facility] [address] [facility] [address] Svtld gap [Moles/Vol]7 mmol/LLow9-15[facility] Comment on above:Performed By: #### PGLU #### [facility] [address] [place] [address] Midoydq [Mass/Vol]8.2 mg/dLLow8.5-9.9[facility] Comment on above:Performed By: #### PGLU #### [facility] [address] [place] [address] Eirigtoz [Moles/Vol]102 mmol/OYhksog08-431RsenaArkansas Valley Regional Medical CenterComment on above:Performed By: #### PGLU #### [facility] [address] [place] [address] MY2 [Moles/Vol]31 mmol/XHghumk52-06TookkArk[facility] Comment on above:Performed By: #### PGLU #### [facility] [address] [place] [address] Hbyjvwcvzo [Mass/Vol]0.77 mg/dLNormal0.70-1.20[facility] CenterComment on above:Performed By: #### PGLU #### [facility] [address] [place] [address] LIK>90.0Normal>60[facility] CenterComment on above: Result Comment: Pediatric calculator link https://www.kidney.org/professionals/kdoqi/gfr_calculatorped Effective Feb [...] or following therapy that affects renal tubular secretion.Performed By: #### PGLU #### [facility] [address] [place] [address] Lrykbjl [Mass/Vol]120 mg/dLCritically rddu97-48VibicSky Ridge Medical CenterComment on above:Performed By: #### PGLU #### [facility] [address] [place] [address] Yrkjhymtb [Mass/Vol]3.1 mg/dLNormal2.3-4.8[facility] CenterComment on above:Performed By: #### PGLU #### [facility] [address] [place] [address] Rndaerekd [Moles/Vol]3.5 mmol/LNormal3.4-4.9[facility] CenterComment on above:Performed By: #### PGLU #### [facility] [address] [place] [address] Sddwrx [Moles/Vol]140 mmol/MIycufc228-873RejsbArkansas Valley Regional Medical CenterComment on above:Performed By: #### PGLU #### [facility] [address] [place] [address] Rwks nitrogen [Mass/Vol]12 mg/dLNormal8-23[facility] CenterComment on above:Performed By: #### PGLU #### [facility] [address] [address] UMO W Auto Differential panel (Bld)on 14-47-0935Zrptphgwaixy Ql (Bld)1+Bon SecRapides Regional Medical Center HealthBasophils (Bld) [#/Vol]0.0 10*3/uL0.0 - 0.2 K/uL [facility] HealthBasophils/100 WBC (Bld)0.5 %Bon [facility] Eosinophils (Bld) [#/Vol]0.3 10*3/uL0.0 - 0.7 K/uLBon SecMercy Health [facility] Hospital Eosinophils/100 WBC (Bld)3.0 %Bon SecMercy Health Urbana HospitalErythrocyte distribution width (RBC) [Ratio]15.4 %High11.5 - 14.5 %[facility]aks HospitalHematocrit (Bld) [Volume fraction]26.7 %Low42.0 - 52.0 %Bon [facility] Medical CenterHemoglobin (Bld) [Mass/Vol]8.8 g/dLLow14.0 - 18.0 g/dLBon SecMercy Health Urbana HospitalHypochromia Ql (Bld)1+Bon [facility] CenterInterpretation and review of laboratory resultsAbnormalBon SecMercy Health Urbana HospitalLymphocytes (Bld) [#/Vol]0.9 10*3/uLLow 1.0 - 4.8 K/uLBon [facility]ena Regional Medical CenterLymphocytes/100 WBC (Bld)9.0 %Bon [facility] HealthMacrocytes Ql (Bld)1+Bon SecUniversity Hospitals Conneaut Medical CenterH (RBC) [Entitic mass]30.9 pg27.0 - 31.3 pgBon SecUniversity Hospitals Conneaut Medical CenterHC (RBC) [Mass/Vol]33.0 % 33.0 - 37.0 %Bon Protestant HospitalV (RBC) [Entitic vol]93.7 tGUxii31.0 - 92.2 fLBon [facility] Regional Medical CenterMonocytes (Bld) [#/Vol]1.0 10*3/uLHigh0.2 - 0.8 K/uLBon Secours Mercy HealthMonocytes/100 WBC (Bld)9.5 %[facility] Myelocytes/100 WBC (Bld)2 %[facility] HealthNeutrophils (Bld) [#/Vol]8.2 10*3/uLHigh1.4 - 6.5 K/uLBon Secours Mercy HealthNucleated RBC/100 WBC (Bld) [Ratio]2 %/100 WBCBon Secours Mercy HealthOvalocytes LM Ql (Bld)1+[facility] HealthPlatelets (Bld) [#/Vol]671 10*3/kULxcd777 - 400 K/uLBon Secours Mercy HealthPlatelets LM Ql (Bld)IncreasedBon Secours Mercy HealthPoikilocytosis LM Ql (Bld)2+[facility] HealthPolychromasia LM Ql (Bld)1+[facility] HealthRBC (Bld) [#/Vol]2.85 10*6/uLLowBon Secours Mercy HealthSegmented neutrophils/100 WBC (Bld)77.0 %[facility] HealthSLIDE REVIEWsee belowBon Secours Mercy HealthSmudge cells LM Ql (Bld)2.9[facility] Stomatocytes LM Ql (Bld)1+[facility] HealthTarget cells LM Ql (Bld)1+[facility] HealthWBC (Bld) [#/Vol]10.4 10*3/uL4.8 - 10.8 K/uLBon Secours Mercy HealthBon [facility] HealthCBC With Platelet and Differentialon 39-97-4968Sgwhktnxotcz Ql (Bld)1+NormalArkansas Valley Regional Medical CenterComment on above:Performed By: #### CBCWD ####[facility] [facility] [phone] (Bld) [#/Vol]0.0 10*3/uLNormal0.0-0.2 [facility] CenterComment on above:Performed By: #### CBCWD ####[facility] [facility] [phone]/100 WBC (Bld)0.5 %[facility] HospitalComment on above:Performed By: #### CBCWD ####[facility] [facility] [phone] (Bld) [#/Vol]0.3 10*3/uLNormal0.0-0.7[facility] CenterComment on above:Performed By: #### CBCWD ####[facility] [facility] [phone]/100 WBC (Bld) 3.0 %[facility] HospitalComment on above:Performed By: #### CBCWD ####[facility] [facility] [phone] Hypochromia1+[facility] HospitalComment on above:Performed By: #### CBCWD ####[facility] [facility] [phone] (Bld) [#/Vol]0.9 10*3/uLLow1.0-4.8[facility] CenterComment on above:Performed By: #### CBCWD ####[facility] [facility] [phone]/100 WBC (Bld) 9.0 %[facility] HospitalComment on above:Performed By: #### CBCWD ####[facility] [facility] [phone] Macrocytic1+[facility] HospitalComment on above:Performed By: #### CBCWD ####[facility] [facility] [phone] (Bld) [#/Vol]1.0 10*3/uLCritically high0.2-0.8[facility] CenterComment on above:Performed By: #### CBCWD ####[facility] [facility] [phone]/100 WBC (Bld)9.5 %[facility] HospitalComment on above:Performed By: #### CBCWD ####[facility] [facility] [phone] %[facility] HospitalComment on above:Performed By: #### CBCWD ####[facility] [facility] [phone] (Bld) [#/Vol]8.2 10*3/uLCritically high 1.4-6.5[facility] CenterComment on above:Performed By: #### CBCWD ####[facility] [facility] [phone] Neutrophils/100 WBC (Bld)77.0 %[facility] HospitalComment on above:Performed By: #### CBCWD ####[facility] [facility] [phone] RBC2 /100 WBCNoWray Community District HospitalComment on above:Performed By: #### CBCWD ####[facility] [facility] [phone]+[facility] HospitalComment on above:Performed By: #### CBCWD ####[facility] [facility] [phone] Slide Review IncreasedNoWray Community District HospitalComment on above:Performed By: #### CBCWD ####[facility] [facility] [phone] Poikilocytosis2+[facility] HospitalComment on above:Performed By: #### CBCWD ####[facility] [facility] [phone]+[facility] HospitalComment on above:Performed By: #### CBCWD ####[facility] [facility] [phone] Reviewsee belowNoWray Community District HospitalComment on above:Result Comment: Slide review agrees with reported results Performed By: #### CBCWD ####[facility] [facility] [phone] Cells2.9NoWray Community District HospitalComment on above:Performed By: #### CBCWD ####[facility] [facility] [phone]+[facility] Comment on above:Performed By: #### CBCWD ####[facility] [facility] [phone] Cells1+[facility] HospitalComment on above:Performed By: #### CBCWD ####[facility] [facility] [phone] distribution width (RBC) [Ratio]15.4 %Critically high11.5-14.5[facility] CenterComment on above:Performed By: #### CBCWD ####[facility] [facility] [phone] (Bld) [Volume fraction]26.7 %Low 42.0-52.0[facility] CenterComment on above:Performed By: #### CBCWD ####[facility] [facility] [phone] Hemoglobin (Bld) [Mass/Vol]8.8 g/dLLow14.0-18.0[facility] Comment on above:Performed By: #### CBCWD ####[facility] [facility] [phone] (RBC) [Entitic mass]30.9 pgNormal 27.0-31.3MSky Ridge Medical CenterComment on above:Performed By: #### CBCWD ####[facility] [facility] [phone] 33.0 %Mmikyt78.0-37.0[facility] CenterComment on above:Performed By: #### CBCWD ####[place] [address] [facility] [phone] (RBC) [Entitic vol]93.7 fLCritically high79.0-92.2MSky Ridge Medical CenterComment on above:Performed By: #### CBCWD ####[facility] [place] [address] [phone] (Bld) [#/Vol]671 10*3/uLCritically pzqu456-521EngvxArkansas Valley Regional Medical CenterComment on above:Performed By: #### CBCWD ####[address] [phone] (Bld) [#/Vol]2.85 10*6/uLLow4.70-6.10[facility] CenterComment on above:Performed By: #### CBCWD ####[place] [address] [facility] [phone] (Bld) [#/Vol] 10.4 10*3/uLNormal4.8-10.8[facility] CenterComment on above: Performed By: #### CBCWD ####[address] [phone] ABDOMEN PELVIS W IV CONTRASTon 56-98-0894SN ABDOMEN PELVIS W IV CONTRASTEXAMINATION: CT OF THE ABDOMEN AND PELVIS WITH MSXHFYEJ99/29/2024 9:54 am TECHNIQUE: CT of the abdomen [...] fluid with no evidence of abscess. A Fraire catheter is present within the urinary bladder [...] Signed by: Alberto Molina MD 04/19/24 Final resultNormDenver Health Medical CenterCT Abdomen and Pelvis W contrast Joby [id number] HospitalRadiology Study observation (narrative)Bon [facility] Medical CenterCT Abdomen and Pelvis W contrast IVOrdered By: Alberto Molina on 27-68-8481Kyc [facility] Work Phone: ekg Rhythm Stripon 51-10-5150XMEHGOhioHealth Grove City [facility] LABProvidence Hospital LABInova Fair Oaks HospitalPOCT Glucose on 47-54-2756Lvyomuw [Mass/Vol]140 mg/pFApyl18 - 99 mg/dlBon [facility] Regional Medical CenterInterpretation and review of laboratory resultsAbLewisGale Hospital MontgomeryPerformed onACCU-CHEKBon Children's Care Hospital and School Glucose [Mass/Vol]140 mg/dLCritically qecg08-78Lhdhp[address] [place] [address] Comment on above:Performed By: #### CBCWD #### [facility] [address] [facility] [address] DGO Performed [facility] HospitalComment on above:Performed By: #### CBCWD #### [facility] [address] [facility] [address] Uvflaip [Mass/Vol]140 mg/aUXcwf98 - 99 mg/dlBon [facility] Interpretation and review of laboratory resultsAbLewisGale Hospital Montgomery Performed onACCU-CHEKBon Children's Care Hospital and SchoolGlucose [Mass/Vol]140 mg/dLCritically irvq25-43PsfmkSky Ridge Medical CenterComment on above:Performed By: #### PGLU #### [facility] [address] [place] [address] KLJ Performed [facility] Term HospitalComment on above:Performed By: #### PGLU #### [facility] [address] [address] Yutplbn [Mass/Vol]136 mg/gQAikm74 - 99 mg/dlBon [facility] Interpretation and review of laboratory resultsAbLewisGale Hospital Montgomery Performed onACCU-CHEKBon Children's Care Hospital and SchoolGlucose [Mass/Vol]136 mg/dLCritically yxsj53-49YkhkiSky Ridge Medical CenterComment on above:Performed By: #### PGLU ####[facility] [place] [phone] Performed onColorado Mental Health Institute at Fort LoganComment on above:Performed By: #### PGLU ####[facility] [place] [phone] [Mass/Vol]140 mg/oDOeuy75 - 99 mg/dlBon Sec[facility] HealthInterpretation and review of laboratory resultsAbnormalBon [facility] HealthPerformed onACCU-CHEKBon [facility] HealthBon [facility] HealthGlucose [Mass/Vol]140 mg/dL Critically kexs85-92YugkwSky Ridge Medical CenterComment on above:Performed By: #### PGLU #### [facility] [address] [place] [address] YUJ Performed onColorado Mental Health Institute at Fort LoganComment on above:Performed By: #### PGLU #### [facility] [address] [place] [address] Yajcc Function Panelon [id number] [Mass/Vol]2.9 g/dLLow3.5 - 4.6 g/dLBon [facility] HealthAnion gap [Moles/Vol]6 mmol/LLowBon Secours Mercy HealthCalcium [Mass/Vol]8.2 mg/dLLow8.5 - 9.9 mg/dLBon Secours Mercy HealthChloride [Moles/Vol]103 mmol/LBon Secours Mercy HealthCO2 [Moles/Vol]34 mmol/LHighBon Secours Mercy HealthCreatinine [Mass/Vol]0.82 mg/dL0.70 - 1.20 mg/dLBon Secours Mercy HealthGFR/1.73 sq M.predicted among non-blacks MDRD (S/P/Bld) [Vol rate/Area]60 - PINFBon Secours Mercy HealthGlucose [Mass/Vol]131 mg/mABadm28 - 99 mg/dLBon Secours [facility] HealthInterpretation and review of laboratory resultsAbnormalBon [facility]ours [facility] HealthPhosphate [Mass/Vol]2.6 mg/dL 2.3 - 4.8 mg/dLBon SecRapides [facility] Center HealthPotassium [Moles/Vol]3.6 mmol/LBon [facility] HealthSodium [Moles/Vol]143 mmol/LBon [facility] HealthUrea nitrogen [Mass/Vol]14 mg/dL8 - 23 mg/dLBon [facility]ours [facility] HealthBon [facility] HealthAlbumin [Mass/Vol]2.9 g/dLLow3.5-4.6MSky Ridge Medical CenterComment on above:Performed By: #### CBCWD #### [facility] [address] [place] [address] Vfcnn gap [Moles/Vol]6 mmol/LLow9-15[facility] Comment on above:Performed By: #### CBCWD #### [facility] [address] [place] [address] Ojzzykf [Mass/Vol]8.2 mg/dLLow8.5-9.9[facility] Comment on above:Performed By: #### CBCWD #### [facility] [address] [place] [address] Wivsspst [Moles/Vol]103 mmol/XNkrlgs59-942CpuywArkansas Valley Regional Medical CenterComment on above:Performed By: #### CBCWD #### [facility] [address] [place] [address] TJ7 [Moles/Vol]34 mmol/LCritically jgdx78-16EnmkkArkansas Valley Regional Medical CenterComment on above:Performed By: #### CBCWD #### [facility] [address] [place] [address] Zdpvlefegr [Mass/Vol]0.82 mg/dLNormal0.70-1.20[facility] CenterComment on above:Performed By: #### CBCWD #### [facility] [address] [place] [address] FTT>90.0Normal>60[facility] CenterComment on above: Result Comment: Pediatric calculator link https://www.kidney.org/professionals/kdoqi/gfr_calculatorped Effective Feb [...] or following therapy that affects renal tubular secretion.Performed By: #### CBCWD #### [facility] [address] [place] [address] Vqnfuaf [Mass/Vol]131 mg/dLCritically ziww84-23TtbnnSky Ridge Medical CenterComment on above:Performed By: #### CBCWD #### [facility] [address] [place] [address] Fbeswbxyk [Mass/Vol]2.6 mg/dLNormal2.3-4.8[facility] CenterComment on above:Performed By: #### CBCWD #### [facility] [address] [place] [address] Ivfynfayo [Moles/Vol]3.6 mmol/LNormal3.4-4.9[facility] CenterComment on above:Performed By: #### CBCWD #### [facility] [address] [place] [address] Ripmrz [Moles/Vol]143 mmol/RNhknnh812-288FweedArkansas Valley Regional Medical CenterComment on above:Performed By: #### CBCWD #### [facility] [address] [place] [address] Mqba nitrogen [Mass/Vol]14 mg/dLNormal8-23[facility] CenterComment on above:Performed By: #### CBCWD #### [facility] [address] [place] [address] PVJ W Auto Differential panel (Bld)on [id number] Ql (Bld)1+[facility] HealthBand form neutrophils/100 WBC (Bld)1 %[facility] Medical CenterBasophils (Bld) [#/Vol]0.0 10*3/uL0.0 - 0.2 K/uLBon Secours [facility] HealthBasophils/100 WBC (Bld)0.4 %[facility] HealthEosinophils (Bld) [#/Vol]0.0 10*3/uL0.0 - 0.7 K/uLBon Secours Mercy HealthEosinophils/100 WBC (Bld)1.1 %[facility] HealthErythrocyte distribution width (RBC) [Ratio] 15.5 %High11.5 - 14.5 %[facility] HealthHematocrit (Bld) [Volume fraction]27.5 %Low42.0 - 52.0 %[facility] HealthHemoglobin (Bld) [Mass/Vol]9.4 g/dLLow14.0 - 18.0 g/dLBon [facility] HealthInterpretation and review of laboratory resultsAbnormalBon [facility] HealthLymphocytes (Bld) [#/Vol]0.9 10*3/uLLow1.0 - 4.8 K/uLBon Secours Mercy HealthLymphocytes/100 WBC (Bld)6.0 %[facility] HealthMacrocytes Ql (Bld)1+[facility] Health MCH (RBC) [Entitic mass]31.5 vuYski95.0 - 31.3 pgBon Secours [facility] Medical CenterMCHC (RBC) [Mass/Vol]34.2 %33.0 - 37.0 %[facility] Medical CenterMCV (RBC) [Entitic vol]92.3 yGImzj93.0 - 92.2 fLBon Secours [facility] HealthMonocytes (Bld) [#/Vol]1.1 10*3/uLHigh0.2 - 0.8 K/uLBon Secours [facility] HealthMonocytes/100 WBC (Bld)7.6 %[facility] HealthMyelocytes/100 WBC (Bld)2 %[facility] Health Neutrophils (Bld) [#/Vol]12.4 10*3/uLHigh1.4 - 6.5 K/uLBon Secours [facility] Health Platelets (Bld) [#/Vol]570 10*3/nEKkml250 - 400 K/uLJohnston Memorial Hospital Health Platelets LM Ql (Bld)IncreasedInova Fair Oaks HospitalPoikilocytosis LM Ql (Bld) 1+[facility] HealthPolychromasia LM Ql (Bld)1+[facility] HealthRBC (Bld) [#/Vol]2.98 10*6/uLLowBon [facility]ena Regional Medical CenterSegmented neutrophils/100 WBC (Bld)84.0 %[facility] HealthSLIDE REVIEWsee belowJohnston Memorial Hospital HealthStomatocytes LM Ql (Bld)1+[facility] HealthWBC (Bld) [#/Vol]14.2 10*3/uLHigh4.8 - 10.8 K/uLAbrazo Central CampusCBC With Platelet and Differentialon 04-18-2024 Platelet Slide ReviewIncreasedValley View HospitalComment on above:Order Comment: Collection has been rescheduled by DAVCN at 04/18/2024 02:16 Reason:Patient has portor linePerformed By: #### PGLU #### [facility] [address] [place] [address] Kstus Reviewsee belowValley View HospitalComment on above:Order Comment: Collection has been rescheduled by LUIS ALBERTOCN at 04/18/2024 02:16 Reason:Patient has portor lineResult Comment: Slide review agrees with reported resultsPerformed By: #### PGLU #### [facility] [address] [place] [address] Gqhjfrbuadcp Ql (Bld)1+Val[facility] View HospitalComment on above:Order Comment: Collection has been rescheduled by DAVCN at 04/18/2024 02:16 Reason:Patient has portor linePerformed By: #### PGLU #### [facility] [address] [facility] [address] [facility] [place] [address] Ookfk9 %Valley View HospitalComment on above:Order Comment: Collection has been rescheduled by DAVCN at 04/18/2024 02:16 Reason:Patient has portor linePerformed By: #### PGLU #### [facility] [address] [place] [address] Bvsrftaid (Bld) [#/Vol]0.0 10*3/uLNormal0.0-0.2MSky Ridge Medical CenterComment on above:Order Comment: Collection has been rescheduled by DAVCN at 04/18/2024 02:16 Reason:Patient has portor linePerformed By: #### PGLU #### [facility] [address] [address] Teuvbnppnrh (Bld) [#/Vol]0.0 10*3/uLNormal0.0-0.7[facility] CenterComment on above:Order Comment: Collection has been rescheduled by DAVCN at 04/18/2024 02:16 Reason:Patient has portor linePerformed By: #### PGLU #### [facility] [address] [facility] [place] [address] Vyzyjhuoxji (Bld) [#/Vol]0.9 10*3/uLLow1.0-4.8[facility] CenterComment on above:Order Comment: Collection has been rescheduled by DAVCN at 04/18/2024 02:16 Reason:Patient has portor linePerformed By: #### PGLU #### [facility] [address] [place] [address] Ryydabyvqfz/100 WBC (Bld)6.0 %[facility] Comment on above:Order Comment: Collection has been rescheduled by DAVCN at 04/18/2024 02:16 Reason:Patient has portor linePerformed By: #### PGLU #### [facility] [address] [address] Rlstqrgzym9+[facility] View HospitalComment on above: Order Comment: Collection has been rescheduled by DAVCN at 04/18/2024 02:16 Reason:Patient has portor linePerformed By: #### PGLU #### [facility] [address] [place] [address] Safpsmzms (Bld) [#/Vol]1.1 10*3/uLCritically high0.2-0.8[facility] CenterComment on above:Order Comment: Collection has been rescheduled by DAVCN at 04/18/2024 02:16 Reason:Patient has portor linePerformed By: #### PGLU #### [facility] [address] [place] [address] Xhsyllwvq/100 WBC (Bld)7.6 %[facility] Comment on above:Order Comment: Collection has been rescheduled by DAVCN at 04/18/2024 02:16 Reason:Patient has portor linePerformed By: #### PGLU #### [facility] [address] [address] Ecctdglikh5 %[facility] HospitalComment on above: Order Comment: Collection has been rescheduled by DAVCN at 04/18/2024 02:16 Reason:Patient has portor linePerformed By: #### PGLU #### [facility] [address] [place] [address] Lcvosylfudf (Bld) [#/Vol]12.4 10*3/uLCritically high1.4-6.5[facility] CenterComment on above:Order Comment: Collection has been rescheduled by DAVCN at 04/18/2024 02:16 Reason:Patient has portor linePerformed By: #### PGLU #### [facility] [address] [place] [address] Sbfqeaaftnt/100 WBC (Bld)84.0 %[facility] Comment on above:Order Comment: Collection has been rescheduled by DAVCN at 04/18/2024 02:16 Reason:Patient has portor linePerformed By: #### PGLU #### [facility] [address] [place] [address] Uazuzvojeksfou6+NormalMercy Regional Medical CenterComment on above: Order Comment: Collection has been rescheduled by DAVCN at 04/18/2024 02:16 Reason:Patient has portor linePerformed By: #### PGLU #### [facility] [address] [place] [address] Grwbydtwvispf2+[facility] HospitalComment on above: Order Comment: Collection has been rescheduled by DAVCN at 04/18/2024 02:16 Reason:Patient has portor linePerformed By: #### PGLU #### [facility] [address] [place] [address] Bkbrxpgldevw6+[facility] HospitalComment on above: Order Comment: Collection has been rescheduled by DAVCN at 04/18/2024 02:16 Reason:Patient has portor linePerformed By: #### PGLU #### [facility] [address] [place] [address] Dzdcyljcv/100 WBC (Bld)0.4 %[facility] Comment on above:Order Comment: Collection has been rescheduled by DAVCN at 04/18/2024 02:16 Reason:Patient has portor linePerformed By: #### PGLU #### [facility] [address] [place] [address] Srzzmtrilkf/100 WBC (Bld)1.1 %[facility] Comment on above:Order Comment: Collection has been rescheduled by DAVCN at 04/18/2024 02:16 Reason:Patient has portor linePerformed By: #### PGLU #### [facility] [address] [place] [address] Oecjbfewpel distribution width (RBC) [Ratio]15.5 %Critically high 11.5-14.5Ar[facility] CenterComment on above:Order Comment: Collection has been rescheduled by DAVCN at 04/18/2024 02:16 Reason:Patient has portor linePerformed By: #### PGLU #### [facility] [address] [place] [address] Kzksaiposd (Bld) [Volume fraction]27.5 %Low42.0-52.0[facility] CenterComment on above:Order Comment: Collection has been rescheduled by DAVCN at 04/18/2024 02:16 Reason:Patient has portor linePerformed By: #### PGLU #### [facility] [address] [place] [address] Badzcbzapq (Bld) [Mass/Vol]9.4 g/dLLow14.0-18.0[facility] CenterComment on above:Order Comment: Collection has been rescheduled by DAVCN at 04/18/2024 02:16 Reason:Patient has portor linePerformed By: #### PGLU #### [facility] [address] [place] [address] KDZ (RBC) [Entitic mass]31.5 pgCritically high27.0-31.3MSky Ridge Medical CenterComment on above:Order Comment: Collection has been rescheduled by DAVCN at 04/18/2024 02:16 Reason:Patient has portor linePerformed By: #### PGLU #### [facility] [address] [place] [address] MQDU46.2 %Vifyme00.0-37.0[facility] CenterComment on above:Order Comment: Collection has been rescheduled by DAVCN at 04/18/2024 02:16 Reason:Patient has portor linePerformed By: #### PGLU #### [facility] [address] [place] [address] NIX (RBC) [Entitic vol]92.3 fLCritically high79.0-92.2MSky Ridge Medical CenterComment on above:Order Comment: Collection has been rescheduled by DAVCN at 04/18/2024 02:16 Reason:Patient has portor linePerformed By: #### PGLU #### [facility] [address] [place] [address] Foftxgdxg (Bld) [#/Vol]570 10*3/uLCritically ziwy741-811WegeyArkansas Valley Regional Medical CenterComment on above:Order Comment: Collection has been rescheduled by DAVCN at 04/18/2024 02:16 Reason:Patient has portor linePerformed By: #### PGLU #### [facility] [address] [place] [address] IYL (Bld) [#/Vol]2.98 10*6/uLLow4.70-6.10[facility] CenterComment on above:Order Comment: Collection has been rescheduled by DAVCN at 04/18/2024 02:16 Reason:Patient has portor linePerformed By: #### PGLU #### [facility] [address] [place] [address] KPP (Bld) [#/Vol]14.2 10*3/uLCritically high4.8-10.8[facility] CenterComment on above:Order Comment: Collection has been rescheduled by DAVCN at 04/18/2024 02:16 Reason:Patient has portor linePerformed By: #### PGLU #### [facility] [address] [place] [address] VMB Rhythm Stripon [id number]'s Hospital ColoradoPOCT Glucoseon 08-32-3926Mgyzxki [Mass/Vol]94 mg/dL70 - 99 mg/dlBon [facility] Performed onACCU-CHEKBon Children's Care Hospital and SchoolGlucose [Mass/Vol]94 mg/iBBgvezt26-94QhnghSky Ridge Medical CenterComment on above: Performed By: #### PGLU #### [facility] [address] [place] [address] ORF Performed onACCU-CHEKNormalArkansas Valley Regional Medical CenterComment on above:Performed By: #### PGLU #### [facility] [address] [place] [address] Oltrddm [Mass/Vol]133 mg/hQWbww01 - 99 mg/dlBon [facility] Interpretation and review of laboratory resultsAbnormalBon [facility] Performed onACCU-CHEKBon [facility] HealthBon SecDoctors Hospitaly HealthGlucose [Mass/Vol]133 mg/dLCritically phkn72-74Oogzf Tog[facility] Va Medical CenterComment on above:Performed By: #### CBCWD #### [facility] [address] [place] [address] YEJ Performed onColorado Mental Health Institute at Fort LoganComment on above:Performed By: #### CBCWD #### [facility] [address] [place] [address] Whlbbrg [Mass/Vol]117 mg/cPAgel95 - 99 mg/dlBon [facility] Interpretation and review of laboratory resultsAbnormPioneer Community Hospital of Patrick Performed onACCU-CHEKBon SecMedina Hospital SecRapides Regional Medical Center HealthGlucose [Mass/Vol]117 mg/dLCritically bukk91-53Zmeqb [facility] Va Medical CenterComment on above:Performed By: #### CBCWD #### [facility] [address] [place] [address] PDN Performed [facility] Term HospitalComment on above:Performed By: #### CBCWD #### [facility] [address] [place] [address] Fwpdaax [Mass/Vol]147 mg/lGJobh95 - 99 mg/dlBon [facility] Interpretation and review of laboratory resultsAbnormPioneer Community Hospital of Patrick Performed onACCU-CHEKBon [facility] HealthDignity Health [facility] SecDoctors Hospitaly HealthGlucose [Mass/Vol]147 mg/dLCritically swky12-41Xawwx [facility] Va Medical CenterComment on above:Performed By: #### CBCWD #### [facility] [address] [place] [address] CYG Performed onColorado Mental Health Institute at Fort LoganComment on above:Performed By: #### CBCWD #### [facility] [address] [place] [address] Armti Function Panelon [id number] [Mass/Vol]3.0 g/dLLow3.5 - 4.6 g/dLBon SecMercy Health Urbana HospitalAnion gap [Moles/Vol]12 mmol/LBon [facility] HealthCalcium [Mass/Vol]8.5 mg/dL8.5 - 9.9 mg/dLBon Secours [facility] HealthChloride [Moles/Vol]94 mmol/LLowBon [facility] HealthCO2 [Moles/Vol]31 mmol/LBon [facility] HealthCreatinine [Mass/Vol]0.88 mg/dL0.70 - 1.20 mg/dLBon SecRapides Regional Medical Center HealthGFR/1.73 sq M.predicted among non-blacks MDRD (S/P/Bld) [Vol rate/Area]60 - PINFBon SecMercy Health Urbana HospitalGlucose [Mass/Vol]124 mg/sHCafk56 - 99 mg/dLBon [facility] Medical CenterInterpretation and review of laboratory results AbnormalBon [facility] HealthPhosphate [Mass/Vol]2.9 mg/dL2.3 - 4.8 mg/dLBon SecRapides Regional Medical Center HealthPotassium [Moles/Vol]3.2 mmol/LLowBon [facility] Sodium [Moles/Vol]137 mmol/LBon [facility] Medical CenterUrea nitrogen [Mass/Vol]10 mg/dL8 - 23 mg/dLBon [facility] LABInova Fair Oaks HospitalAlbumin [Mass/Vol]3.0 g/dLLow3.5-4.6MSky Ridge Medical CenterComment on above:Order Comment: Collection has been rescheduled by DEBBI at 04/18/2024 02:16 Reason: Patient has port or linePerformed By: #### RENAL #### [facility] [address] [place] [address] Wjdqe gap [Moles/Vol]12 mmol/LNormal9-15[facility] CenterComment on above:Order Comment: Collection has been rescheduled by DEBBI at 04/18/2024 02:16 Reason: Patient has port or linePerformed By: #### RENAL #### [facility] [address] [place] [address] Uhinplj [Mass/Vol]8.5 mg/dLNormal8.5-9.9[facility] CenterComment on above:Order Comment: Collection has been rescheduled by DAVCN at 04/18/2024 02:16 Reason: Patient has port or linePerformed By: #### RENAL #### [facility] [address] [place] [address] Ldkazvmp [Moles/Vol]94 mmol/LFvw08-270SiszcArkansas Valley Regional [facility] Center Comment on above:Order Comment: Collection has been rescheduled by DAVCN at 04/18/2024 02:16 Reason: Patient has port or linePerformed By: #### RENAL #### [facility] [address] [place] [address] SP0 [Moles/Vol]31 mmol/PTqbhoo01-74SznfbArk[facility] Comment on above:Order Comment: Collection has been rescheduled by DAVCN at 04/18/2024 02:16 Reason: Patient has port or linePerformed By: #### RENAL #### [facility] [address] [place] [address] Rrcmvxkpsb [Mass/Vol]0.88 mg/dLNormal0.70-1.20[facility] CenterComment on above:Order Comment: Collection has been rescheduled by DAVCN at 04/18/2024 02:16 Reason: Patient has port or linePerformed By: #### RENAL #### [facility] [address] [address] VBI>90.0Normal>60[facility] CenterComment on above:Order Comment: Collection has been rescheduled by DAVCN at 04/18/2024 02:16 Reason: Patient has port or lineResult Comment: Pediatric calculator link https://www.kidney.org/professionals/kdoqi/gfr_calculatorped Effective Feb [...] or following therapy that affects renal tubular secretion.Performed By: #### RENAL #### [facility] [address] [address] Krjpczb [Mass/Vol]124 mg/dLCritically vmpv35-16QlubiSky Ridge Medical CenterComment on above:Order Comment: Collection has been rescheduled by [facility] at 04/18/2024 02:16 Reason: Patient has port or linePerformed By: #### RENAL #### [facility] [address] [address] Acppiichs [Mass/Vol]2.9 mg/dLNormal2.3-4.8[facility] CenterComment on above:Order Comment: Collection has been rescheduled by [facility] at 04/18/2024 02:16 Reason: Patient has port or linePerformed By: #### RENAL #### [facility] [address] [place] [address] Bwjpqzcuk [Moles/Vol]3.2 mmol/LLow3.4-4.9[facility] CenterComment on above:Order Comment: Collection has been rescheduled by DAVCN at 04/18/2024 02:16 Reason: Patient has port or linePerformed By: #### RENAL #### [facility] [address] [address] Bdodmz [Moles/Vol]137 mmol/KEfqhqy561-584PschfArkansas Valley Regional Medical CenterComment on above:Order Comment: Collection has been rescheduled by [facility] at 04/18/2024 02:16 Reason: Patient has port or linePerformed By: #### RENAL #### [facility] [address] [place] [address] Ieui nitrogen [Mass/Vol]10 mg/dLNormal8-23[facility] CenterComment on above:Order Comment: Collection has been rescheduled by DEBBI at 04/18/2024 02:16 Reason: Patient has port or linePerformed By: #### RENAL #### [facility] [address] [place] [place] [address] CSE W Auto Differential panel (Bld)on 03-30-0016Bzdqltbpftfk Ql (Bld)1+[facility] HealthBasophils (Bld) [#/Vol]0.0 10*3/uL0.0 - 0.2 K/uL [facility] HealthBasophils/100 WBC (Bld)0.5 %[facility] Health Eosinophils (Bld) [#/Vol]0.5 10*3/uL0.0 - 0.7 K/uLBon [facility]ours [facility] Eosinophils/100 WBC (Bld)4.0 %[facility] Medical CenterErythrocyte distribution width (RBC) [Ratio]15.7 %High11.5 - 14.5 %Bon SecRapides Regional Medical Center HealthHematocrit (Bld) [Volume fraction]26.4 %Low42.0 - 52.0 %Bon SecRapides Regional Medical Center HealthHemoglobin (Bld) [Mass/Vol]8.8 g/dLLow14.0 - 18.0 g/dLBon Secours [facility] Medical CenterHypochromia Ql (Bld)1+Bon SecRapides Regional Medical Center HealthInterpretation and review of laboratory resultsAbnormalBon [facility] HealthLymphocytes (Bld) [#/Vol]0.6 10*3/uLLow 1.0 - 4.8 K/uLBon [facility]ency Hospital CompanyLymphocytes/100 WBC (Bld)5.0 %[facility] HealthMacrocytes Ql (Bld)1+Bon [facility] (RBC) [Entitic mass]31.0 pg27.0 - 31.3 pgBon Secours TriHealthHC (RBC) [Mass/Vol]33.3 % 33.0 - 37.0 %[facility] (RBC) [Entitic vol]93.0 lAKepp21.0 - 92.2 fLBon Secours Mercy HealthMonocytes (Bld) [#/Vol]0.6 10*3/uL0.2 - 0.8 K/uL [facility] HealthMonocytes/100 WBC (Bld)4.8 %[facility] Neutrophils (Bld) [#/Vol]11.0 10*3/uLHigh1.4 - 6.5 K/uLBon Secours Mercy Health Nucleated RBC/100 WBC (Bld) [Ratio]4 %/100 WBCBon Secours Mercy HealthPlatelets (Bld) [#/Vol]521 10*3/eKSpee152 - 400 K/uLBon Secours Mercy HealthPlatelets LM Ql (Bld)IncreasedBon Secours Mercy HealthPoikilocytosis LM Ql (Bld)1+[facility] HealthPolychromasia LM Ql (Bld)1+[facility] HealthRBC (Bld) [#/Vol]2.84 10*6/uLLowBon Secours Mercy HealthSegmented neutrophils/100 WBC (Bld)87.0 %[facility] HealthSmudge cells LM Ql (Bld)2.9[facility] HealthStomatocytes LM Ql (Bld)1+[facility] HealthWBC (Bld) [#/Vol]12.7 10*3/uLHigh4.8 - 10.8 K/uLBon Secours [facility] HealthBon [facility] HealthCBC With Platelet and Differentialon 13-19-8517Hqhvlftk Slide ReviewIncreasedUchealth Grandview HospitalComment on above:Performed By: #### PGLU #### [facility] [address] [place] [address] VPYMR REVIEWsee belowNormalBon SecMercy Health Urbana HospitalComment on above: Result Comment: Slide review agrees with reported resultsPerformed By: #### PGLU #### [facility] [address] [place] [address] Qnrdfejlmjkh Ql (Bld)1+[facility] HospitalComment on above:Performed By: #### PGLU #### [facility] [address] [place] [address] Quoodjhlr (Bld) [#/Vol]0.0 10*3/uLNormal0.0-0.2MSky Ridge Medical CenterComment on above:Performed By: #### PGLU #### [facility] [address] [place] [address] Tpsfuyiec/100 WBC (Bld)0.5 %[facility] Comment on above:Performed By: #### PGLU #### [facility] [address] [place] [address] Vurspexxrhx (Bld) [#/Vol]0.5 10*3/uLNormal0.0-0.7[facility] CenterComment on above:Performed By: #### PGLU #### [facility] [address] [place] [address] Vzwvxzuzpil/100 WBC (Bld)4.0 %[facility] Comment on above:Performed By: #### PGLU #### [facility] [address] [place] [address] Xoyevrxtllj2+[facility] HospitalComment on above: Performed By: #### PGLU #### [facility] [address] [place] [address] Fbcpuianxsj (Bld) [#/Vol]0.6 10*3/uLLow1.0-4.8[facility] CenterComment on above:Performed By: #### PGLU #### [facility] [address] [place] [address] Lffwrahdkgn/100 WBC (Bld)5.0 %[facility] Comment on above:Performed By: #### PGLU #### [facility] [address] [place] [address] Gueepdzcpp7+[facility] HospitalComment on above: Performed By: #### PGLU #### [facility] [address] [place] [address] Houpjldtf (Bld) [#/Vol]0.6 10*3/uLNormal0.2-0.8[facility] CenterComment on above:Performed By: #### PGLU #### [facility] [address] [place] [address] Qgwrziggd/100 WBC (Bld)4.8 %[facility] Comment on above:Performed By: #### PGLU #### [facility] [address] [place] [address] Httsefbtsxt (Bld) [#/Vol]11.0 10*3/uLCritically high1.4-6.5[facility] CenterComment on above:Performed By: #### PGLU #### [facility] [address] [address] Nlfsqzriazi/100 WBC (Bld)87.0 %[facility] Comment on above:Performed By: #### PGLU #### [facility] [address] [place] [address] Tqgftkocw RBC4 /100 WBCNoWray Community District HospitalComment on above:Performed By: #### PGLU #### [facility] [address] [address] Jlxsoxxsvbbvwi2+[facility] HospitalComment on above: Performed By: #### PGLU #### [facility] [address] [address] Vwfayfgldkxdy0+[facility] HospitalComment on above: Performed By: #### PGLU #### [facility] [address] [place] [address] Wnfuzo Cells2.9NoWray Community District HospitalComment on above: Performed By: #### PGLU #### [facility] [address] [place] [address] Butvexhsitfv0+NormalArkansas Valley Regional Medical CenterComment on above: Performed By: #### PGLU #### [facility] [address] [address] Yshgrfkkmwv distribution width (RBC) [Ratio]15.7 %Critically high 11.5-14.5Ar[facility] CenterComment on above:Performed By: #### PGLU #### [facility] [address] [facility] [address] Twhuxejwcj (Bld) [Volume fraction]26.4 %Low42.0-52.0[facility] CenterComment on above:Performed By: #### PGLU #### [facility] [address] [facility] [address] Rpgtvqchvr (Bld) [Mass/Vol]8.8 g/dLLow14.0-18.0[facility] CenterComment on above:Performed By: #### PGLU #### [facility] [address] [address] BLE (RBC) [Entitic mass]31.0 agYkawkh51.0-31.3MSky Ridge Medical CenterComment on above:Performed By: #### PGLU #### [facility] [address] [address] LIGP50.3 %Paxawr05.0-37.0[facility] CenterComment on above:Performed By: #### PGLU #### [facility] [address] [address] IAG (RBC) [Entitic vol]93.0 fLCritically high79.0-92.2MSky Ridge Medical CenterComment on above:Performed By: #### PGLU #### [facility] [address] [address] Rfkpivdtv (Bld) [#/Vol]521 10*3/uLCritically ltey061-474ZzqeuArkansas Valley Regional Medical CenterComment on above:Performed By: #### PGLU #### [facility] [address] [place] [address] GHR (Bld) [#/Vol]2.84 10*6/uLLow4.70-6.10[facility] CenterComment on above:Performed By: #### PGLU #### [facility] [address] [place] [address] TFP (Bld) [#/Vol]12.7 10*3/uLCritically high4.8-10.8[facility] CenterComment on above:Performed By: #### PGLU #### [facility] [address] [place] [address] BGK Rhythm Stripon [id number] Riverview Hospital and ClinicsIR Picc Equal or Greater Than 5 Yearson 58-09-1560LDXS CASCO RADIOLOGYCHAvera Queen of Peace HospitalRadiology Study observation (narrative)[facility] CenterPOCT Glucoseon [id number] [Mass/Vol]116 mg/fXNqsi84 - 99 mg/dlBon [facility] Regional Medical CenterInterpretation and review of laboratory resultsAbnoTwin County Regional HealthcarePerformed on ACCU-CHEKBon Children's Care Hospital and SchoolGlucose [Mass/Vol]116 mg/dLCritically wrbi09-06YpzrdSky Ridge Medical CenterComment on above:Performed By: #### PGLU #### [facility] [address] [place] [address] XCR Performed onACCU-CHEKNormalArkansas Valley Regional Medical CenterComment on above:Performed By: #### PGLU #### [facility] [address] [place] [address] Homcfuw [Mass/Vol]89 mg/dL70 - 99 mg/dlBon [facility] Performed onACCU-CHEKBon Children's Care Hospital and SchoolGlucose [Mass/Vol]89 mg/kZTvduon63-50EajxfSky Ridge Medical CenterComment on above: Performed By: #### CBCND #### [facility] [address] [place] [address] IMF Performed [facility] HospitalComment on above:Performed By: #### CBCND #### [facility] [address] [place] [address] Lohkryo [Mass/Vol]102 mg/mYBwjm66 - 99 mg/dlBon [facility] Center Interpretation and review of laboratory resultsAbLewisGale Hospital Montgomery Performed onACCU-CHEKBon SecMarshfield Medical Center - Ladysmith Rusk CountyGlucose [Mass/Vol]102 mg/dLCritically bpha75-41ZdzawSky Ridge Medical CenterComment on above:Performed By: #### CBCND #### [facility] [address] [address] QZO Performed [facility] HospitalComment on above:Performed By: #### CBCND #### [facility] [address] [place] [address] Atshxgd [Mass/Vol]118 mg/uIChvz90 - 99 mg/dlBon [facility] Interpretation and review of laboratory resultsAbLewisGale Hospital Montgomery Performed onACCU-CHEKBon Children's Care Hospital and SchoolGlucose [Mass/Vol]118 mg/dLCritically wccs83-27Mlz[address] [place], [place] [address]Comment on above:Performed By: #### PGLU #### [facility] [address] [place] [address] YAX Performed [facility] HospitalComment on above:Performed By: #### PGLU #### [facility] [address] [place] [address] Yqoum Function Panelon [id number] [Mass/Vol]2.9 g/dLLow3.5 - 4.6 g/dLBon Adena Regional Medical CenterAnion gap [Moles/Vol]15 mmol/LBon Secours Mercy HealthCalcium [Mass/Vol]8.3 mg/dLLow8.5 - 9.9 mg/dLBon Secours [facility] Chloride [Moles/Vol]99 mmol/LBon Secours [facility] HealthCO2 [Moles/Vol]24 mmol/LBon Secours [facility] HealthCreatinine [Mass/Vol]0.74 mg/dL0.70 - 1.20 mg/dLBon Secours Mercy HealthGFR/1.73 sq M.predicted among non-blacks MDRD (S/P/Bld) [Vol rate/Area]60 - PINFBon Secours [facility] Lady Of [facility] HealthGlucose [Mass/Vol]99 mg/dL70 - 99 mg/dLBon Secours [facility] HealthInterpretation and review of laboratory results AbnormalBon Secours [facility] HealthPhosphate [Mass/Vol]2.5 mg/dL2.3 - 4.8 mg/dLBon Secours [facility] HealthPotassium [Moles/Vol]3.3 mmol/LLowBon [facility] Sodium [Moles/Vol]138 mmol/LBon SecDoctors Hospitaly HealthUrea nitrogen [Mass/Vol]12 mg/dL8 - 23 mg/dLBon Secours [facility] HealthBon [facility] HealthAlbumin [Mass/Vol]2.9 g/dLLow3.5-4.6MSky Ridge Medical CenterComment on above: Performed By: #### PGLU #### [facility] [address] [place] [address] Feetz gap [Moles/Vol]15 mmol/LNormal9-15Ar[facility] CenterComment on above:Performed By: #### PGLU #### [facility] [address] [place] [address] Vdpquks [Mass/Vol]8.3 mg/dLLow8.5-9.9[facility] Comment on above:Performed By: #### PGLU #### [facility] [address] [place] [address] Avcbpaxg [Moles/Vol]99 mmol/IInklla93-867GuhnwArkansas Valley Regional Medical CenterComment on above:Performed By: #### PGLU #### [facility] [address] [place] [place] [address] QE5 [Moles/Vol]24 mmol/HFpztaf35-88ScixpArk[facility] Center Comment on above:Performed By: #### PGLU #### [facility] [address] [place] [place] [address] Kdtygfbuka [Mass/Vol]0.74 mg/dLNormal0.70-1.20[facility] CenterComment on above:Performed By: #### PGLU #### [facility] [address] [place] [address] HZP>90.0Normal>60Ar[facility] CenterComment on above: Result Comment: Pediatric calculator link https://www.kidney.org/professionals/kdoqi/gfr_calculatorped Effective Feb [...] or following therapy that affects renal tubular secretion.Performed By: #### PGLU #### [facility] [address] [place] [address] Udhyvvv [Mass/Vol]99 mg/xQDotfcy44-07LhhplSky Ridge Medical Center Comment on above:Performed By: #### PGLU #### [facility] [address] [place] [address] Fuxfgsoch [Mass/Vol]2.5 mg/dLNormal2.3-4.8[facility] CenterComment on above:Performed By: #### PGLU #### [facility] [address] [place] [address] Pychyluut [Moles/Vol]3.3 mmol/LLow3.4-4.9[facility] CenterComment on above:Performed By: #### PGLU #### [facility] [address] [place] [address] Jrnvmd [Moles/Vol]138 mmol/HYsycuz665-484WzgnpArkansas Valley Regional Medical CenterComment on above:Performed By: #### PGLU #### [facility] [address] [place] [address] Grvo nitrogen [Mass/Vol]12 mg/dLNormal8-23Ar[facility] CenterComment on above:Performed By: #### PGLU #### [facility] [address] [place] [address] CQN W Auto Differential panel (Bld)on [id number] (Bld) [#/Vol]0.4 10*3/uLHigh0.0 - 0.2 K/uLBon Secours [facility] Hospital HealthBasophils/100 WBC (Bld)3.0 %[facility] HealthEosinophils (Bld) [#/Vol]0.5 10*3/uL0.0 - 0.7 K/uLBon Secours [facility] HealthEosinophils/100 WBC (Bld)4.0 %[facility] HealthErythrocyte distribution width (RBC) [Ratio]16.1 %High11.5 - 14.5 %[facility] HealthHematocrit (Bld) [Volume fraction]24.9 %Low42.0 - 52.0 %[facility] HealthHemoglobin (Bld) [Mass/Vol]8.1 g/dLLow14.0 - 18.0 g/dLBon SecRapides Regional Medical Center HealthInterpretation and review of laboratory resultsAbnormalBon Secours [facility] HealthLymphocytes (Bld) [#/Vol]0.7 10*3/uLLow1.0 - 4.8 K/uLBon Secours Mercy HealthLymphocytes/100 WBC (Bld)5.0 %[facility] HospitalH (RBC) [Entitic mass]30.5 pg27.0 - 31.3 pgBon Secours TriHealthHC (RBC) [Mass/Vol]32.5 %Low33.0 - 37.0 %[facility] CompanyMCV (RBC) [Entitic vol] 93.6 pPBltt91.0 - 92.2 fLBon Secours Mercy HealthMonocytes (Bld) [#/Vol]0.6 10*3/uL0.2 - 0.8 K/uLBon Secours Mercy HealthMonocytes/100 WBC (Bld)4.8 %[facility] HealthNeutrophils (Bld) [#/Vol]9.9 10*3/uLHigh1.4 - 6.5 K/uLBon Secours Mercy HealthNucleated RBC/100 WBC (Bld) [Ratio]4 %/100 WBCBon Secours Mercy HealthPlatelets (Bld) [#/Vol]385 10*3/uL130 - 400 K/uLBon Secours Mercy HealthPlatelets LM Ql (Bld)AdequateBon Secours Mercy HealthRBC (Bld) [#/Vol]2.66 10*6/uLLowBon Secours Mercy HealthSegmented neutrophils/100 WBC (Bld)83.0 %[facility] HealthSmudge cells LM Ql (Bld)8.7[facility] HealthVariant lymphocytes/100 WBC (Bld)1 %[facility] HealthWBC (Bld) [#/Vol]11.9 10*3/uLHigh4.8 - 10.8 K/uLBon Secours Mercy HealthBon Secours [facility] HealthCBC With Platelet and Differentialon 90-71-3862Ijmrwkjt Slide ReviewAdequateNoKindred Hospital - Denver SouthComment on above:Performed By: #### CBCWD #### [facility] [address] [place] [address] UFRKY REVIEWsee belowNormalBon Secours Metro[facility] Cleveland Heights Medical CenterComment on above: Result Comment: Slide review agrees with reported resultsPerformed By: #### CBCWD #### [facility] [address] [address] Bhwhonhg Lymphs1 %NormalArkansas Valley Regional Medical CenterComment on above:Performed By: #### CBCWD #### [facility] [address] [address] Pqzagagnu (Bld) [#/Vol]0.4 10*3/uLCritically high0.0-0.2MSky Ridge Medical CenterComment on above:Performed By: #### CBCWD #### [facility] [address] [place] [address] Pbgyikvty/100 WBC (Bld)3.0 %[facility] Comment on above:Performed By: #### CBCWD #### [facility] [address] [place] [address] Vuswcossvuw (Bld) [#/Vol]0.5 10*3/uLNormal0.0-0.7[facility] CenterComment on above:Performed By: #### CBCWD #### [facility] [address] [place] [address] Vrypxlgarop/100 WBC (Bld)4.0 %[facility] Comment on above:Performed By: #### CBCWD #### [facility] [address] [address] Oaycyhdiwlw (Bld) [#/Vol]0.7 10*3/uLLow1.0-4.8[facility] CenterComment on above:Performed By: #### CBCWD #### [facility] [address] [address] Qsltkflrttd/100 WBC (Bld)5.0 %[facility] Comment on above:Performed By: #### CBCWD #### [facility] [address] [place] [address] Dedpxvrno (Bld) [#/Vol]0.6 10*3/uLNormal0.2-0.8[facility] CenterComment on above:Performed By: #### CBCWD #### [facility] [address] [place] [address] Emimhtukn/100 WBC (Bld)4.8 %[facility] Comment on above:Performed By: #### CBCWD #### [facility] [address] [place] [address] Tjlwnggnymz (Bld) [#/Vol]9.9 10*3/uLCritically high1.4-6.5[facility] CenterComment on above:Performed By: #### CBCWD #### [facility] [address] [place] [address] Ivopfnhiklr/100 WBC (Bld)83.0 %NormalArkansas Valley [facility] Center Comment on above:Performed By: #### CBCWD #### [facility] [address] [place] [address] Wavekiojj RBC4 /100 WBCNormDenver Health Medical CenterComment on above:Performed By: #### CBCWD #### [facility] [address] [place] [address] Xvttye Cells8.7NormalArkansas Valley Regional Medical CenterComment on above: Performed By: #### CBCWD #### [facility] [address] [place] [address] Azyurhxaxln distribution width (RBC) [Ratio]16.1 %Critically high 11.5-14.5[facility] CenterComment on above:Performed By: #### CBCWD #### [facility] [address] [place] [address] Hqzhexktsx (Bld) [Volume fraction]24.9 %Low42.0-52.0[facility] CenterComment on above:Performed By: #### CBCWD #### [facility] [address] [place] [address] Pugaxjjvaz (Bld) [Mass/Vol]8.1 g/dLLow14.0-18.0[facility] CenterComment on above:Performed By: #### CBCWD #### [facility] [address] [place] [address] HZG (RBC) [Entitic mass]30.5 hhBuybfj28.0-31.3MSky Ridge Medical CenterComment on above:Performed By: #### CBCWD #### [facility] [address] [place] [place] [address] PECQ62.5 %Low33.0-37.0[facility] CenterComment on above: Performed By: #### CBCWD #### [facility] [address] [place] [address] TPO (RBC) [Entitic vol]93.6 fLCritically high79.0-92.2MSky Ridge Medical CenterComment on above:Performed By: #### CBCWD #### [facility] [address] [place] [address] Txttywfrk (Bld) [#/Vol]385 10*3/kXDeaxzq886-899SzrlyArkansas Valley Regional Medical CenterComment on above:Performed By: #### CBCWD #### [facility] [address] [place] [address] FVD (Bld) [#/Vol]2.66 10*6/uLLow4.70-6.10[facility] CenterComment on above:Performed By: #### CBCWD #### [facility] [address] [place] [address] XGT (Bld) [#/Vol]11.9 10*3/uLCritically high4.8-10.8[facility] CenterComment on above:Performed By: #### CBCWD #### [facility] [address] [place] [address] SLO Rhythm Stripon [id number] Riverview [facility] Clinics Pathology studyon [id number] Valley Health SystemRenal Function Panelon [id number] [Mass/Vol]2.9 g/dLLow3.5 - 4.6 g/dLBon Adena Regional Medical CenterAni gap [Moles/Vol]7 mmol/LLowBon [facility] Medical CenterCalcium [Mass/Vol]8.2 mg/dLLow8.5 - 9.9 mg/dLBon [facility] Chloride [Moles/Vol]102 mmol/LBon [facility] Medical CenterCO2 [Moles/Vol]30 mmol/L [facility] CenterCreatinine [Mass/Vol]0.78 mg/dL0.70 - 1.20 mg/dLBon [facility] Regional Medical CenterGFR/1.73 sq M.predicted among non-blacks MDRD (S/P/Bld) [Vol rate/Area]60 - PINFBon Adena Regional Medical CenterGlucose [Mass/Vol]85 mg/dL70 - 99 mg/dLBon [facility] CenterInterpretation and review of laboratory results AbnormalBon [facility] Medical CenterPhosphate [Mass/Vol]2.9 mg/dL2.3 - 4.8 mg/dLBon [facility] Medical CenterPotassium [Moles/Vol]3.8 mmol/LBon [facility] Sodium [Moles/Vol]139 mmol/LBon [facility] Regional Medical CenterUrea nitrogen [Mass/Vol]13 mg/dL8 - 23 mg/dLBon [facility]ena Regional Medical CenterBon [facility] Medical CenterAlbumin [Mass/Vol]2.9 g/dLLow3.5-4.6MSky Ridge Medical CenterComment on above: Performed By: #### PGLU #### [facility] [address] [place] [address] Wvnrr gap [Moles/Vol]7 mmol/LLow9-15[facility] Comment on above:Performed By: #### PGLU #### [facility] [address] [place] [address] Qddwzyt [Mass/Vol]8.2 mg/dLLow8.5-9.9[facility] Comment on above:Performed By: #### PGLU #### [facility] [address] [place] [address] Mxtqoxxi [Moles/Vol]102 mmol/CFxqthi47-545YnxhnArkansas Valley Regional Medical CenterComment on above:Performed By: #### PGLU #### [facility] [address] [place] [place] [address] UW4 [Moles/Vol]30 mmol/IQwsixf75-38IpgjyArkansas Valley Regional Medical Center Comment on above:Performed By: #### PGLU #### [facility] [address] [place] [address] Nxazidqiww [Mass/Vol]0.78 mg/dLNormal0.70-1.20[facility] CenterComment on above:Performed By: #### PGLU #### [facility] [address] [place] [address] JLH>90.0Normal>60[facility] CenterComment on above: Result Comment: Pediatric calculator link https://www.kidney.org/professionals/kdoqi/gfr_calculatorped Effective Feb [...] or following therapy that affects renal tubular secretion.Performed By: #### PGLU #### [facility] [address] [place] [address] Vaeypuj [Mass/Vol]85 mg/aBRowzxz07-28BqcpkSky Ridge Medical Center Comment on above:Performed By: #### PGLU #### [facility] [address] [place] [address] Kprwavqbu [Mass/Vol]2.9 mg/dLNormal2.3-4.8[facility] CenterComment on above:Performed By: #### PGLU #### [facility] [address] [place] [address] Epbgpdgmg [Moles/Vol]3.8 mmol/LNormal3.4-4.9[facility] CenterComment on above:Performed By: #### PGLU #### [facility] [address] [place] [place] [address] Swttwu [Moles/Vol]139 mmol/QCyuvib928-133HjuzxArkansas Valley Regional Medical CenterComment on above:Performed By: #### PGLU #### [facility] [address] [place] [place] [address] Wiol nitrogen [Mass/Vol]13 mg/dLNormal8-23Ar[facility] CenterComment on above:Performed By: #### PGLU #### [facility] [address] [place] [place] [address] AKN W Auto Differential panel (Bld)on [id number] Ql (Bld)1+[facility] HealthBand form neutrophils/100 WBC (Bld)2 %[facility] HealthBasophils (Bld) [#/Vol]0.1 10*3/uL0.0 - 0.2 K/uLBon Secours Mercy HealthBasophils/100 WBC (Bld)1.0 %Bon [facility] HealthEosinophils (Bld) [#/Vol]0.6 10*3/uL0.0 - 0.7 K/uLBon Secours Mercy HealthEosinophils/100 WBC (Bld)6.0 %[facility] HealthErythrocyte distribution width (RBC) [Ratio] 16.2 %High11.5 - 14.5 %[facility] HealthHematocrit (Bld) [Volume fraction]23.5 %Low42.0 - 52.0 %[facility] HealthHemoglobin (Bld) [Mass/Vol]7.8 g/dLLow14.0 - 18.0 g/dLBon Secours Mercy HealthInterpretation and review of laboratory resultsAbnormalBon [facility] Mer[facility] HealthLymphocytes (Bld) [#/Vol]0.9 10*3/uLLow1.0 - 4.8 K/uLBon Secours Mercy HealthLymphocytes/100 WBC (Bld)9.0 %[facility] HealthMacrocytes Ql (Bld)1+[facility] MCH (RBC) [Entitic mass]31.0 pg27.0 - 31.3 pgBon Secours Mercy HealthMCHC (RBC) [Mass/Vol]33.2 %33.0 - 37.0 %[facility] HealthMCV (RBC) [Entitic vol]93.3 cAOued09.0 - 92.2 fLBon Secours Mercy HealthMetamyelocytes/100 WBC (Bld)1 %[facility] HealthMonocytes (Bld) [#/Vol]1.2 10*3/uLHigh0.2 - 0.8 K/uLBon Secours Mercy HealthMonocytes/100 WBC (Bld)10.5 %[facility] Myelocytes/100 WBC (Bld)1 %[facility] HealthNeutrophils (Bld) [#/Vol]7.9 10*3/uLHigh1.4 - 6.5 K/uLBon Secours Mercy HealthNucleated RBC/100 WBC (Bld) [Ratio]4 %/100 WBCBon Secours Mercy HealthPlatelets (Bld) [#/Vol]296 10*3/uL130 - 400 K/uLBon Secours Mercy HealthPlatelets LM Ql (Bld)AdequateBon [facility]ours Mercy HealthPolychromasia LM Ql (Bld)1+[facility] HealthRBC (Bld) [#/Vol]2.52 10*6/uLLowBon [facility]ours [facility] HealthSegmented neutrophils/100 WBC (Bld)71.0 %[facility] HealthSLIDE REVIEWsee belowBon Secours Mercy HealthWBC (Bld) [#/Vol]10.5 10*3/uL4.8 - 10.8 K/uLBon Secours Mercy HealthBon [facility] HealthCBC With Platelet and Differentialon 03-38-4799Zzucebirfszg Ql (Bld)1+ [facility] HospitalComment on above:Performed By: #### CBCWD ####[facility] [facility] [phone] %[facility] HospitalComment on above:Performed By: #### CBCWD ####[facility] [facility] [phone] Basophils/100 WBC (Bld)1.0 %[facility] HospitalComment on above: Result Comment: Corrected result; previously reported as 0.6 on 04/15/2024 at 06:39 by NEWHEPerformed By: #### CBCWD ####[facility] [facility] [phone] (Bld) [#/Vol]0.6 10*3/uLNormal 0.0-0.7[facility] CenterComment on above:Result Comment: Corrected result; previously reported as 0.8 on 04/15/2024 at 06:39 by NEWHEPerformed By: #### CBCWD ####[facility] [facility] [phone]/100 WBC (Bld)6.0 %[facility] HospitalComment on above:Result Comment: Corrected result; previously reported as 7.1 on 04/15/2024 at 06:39 by NEWHEPerformed By: #### CBCWD ####[facility] [facility] [phone] (Bld) [#/Vol] 0.9 10*3/uLLow1.0-4.8[facility] CenterComment on above:Result Comment: Corrected result; previously reported as 1.2 on 04/15/2024 at 06:39 by NEWHEPerformed By: #### CBCWD ####[facility] [facility] [phone]/100 WBC (Bld)9.0 %[facility] HospitalComment on above:Result Comment: Corrected result; previously reported as 11.4 on 04/15/2024 at 06:39 by NEWHEPerformed By: #### CBCWD ####[facility] [facility] [phone] Macrocytic1+[facility] HospitalComment on above:Performed By: #### CBCWD ####[facility] [facility] [phone] %NormalMagruder Hospitalcy Regional Medical CenterComment on above:Performed By: #### CBCWD ####[facility] [facility] [phone] (Bld) [#/Vol]1.2 10*3/uLCritically high 0.2-0.8[facility] CenterComment on above:Result Comment: Corrected result; previously reported as 1.3 on 04/15/2024 at 06:39 by NEWHEPerformed By: #### CBCWD ####[facility] [place] [address] [phone]/100 WBC (Bld)10.5 %[facility] HospitalComment on above:Result Comment: Corrected result; previously reported as 12.1 on 04/15/2024 at 06:39 by NEWHEPerformed By: #### CBCWD ####[facility] [facility] [phone] %[facility] HospitalComment on above:Performed By: #### CBCWD ####[facility] [facility] [phone] (Bld) [#/Vol]7.9 10*3/uLCritically high1.4-6.5[facility] CenterComment on above:Result Comment: Corrected result; previously reported as 7.1 on 04/15/2024 at 06:39 by NEWHEPerformed By: #### CBCWD ####[facility] [facility] [phone]/100 WBC (Bld)71.0 % [facility] HospitalComment on above:Result Comment: Corrected result; previously reported as 67.7 on 04/15/2024 at 06:39 by NEWHEPerformed By: #### CBCWD ####[facility] [place] [address] [phone] RBC4 /100 WBCNormalArk[facility] Comment on above:Performed By: #### CBCWD ####[facility] [facility] RdCall[address] [place] [phone] Slide ReviewAdequateNoWray Community District HospitalComment on above:Performed By: #### CBCWD ####[facility] [facility] [place] [phone]+ NormalArkansas Valley Regional Medical CenterComment on above:Performed By: #### CBCWD ####[facility] [facility] [place] [phone] Reviewsee belowNoWray Community District HospitalComment on above:Result Comment: Slide review agrees with reported resultsPerformed By: #### CBCWD ####[facility] [facility] [phone] Basophils (Bld) [#/Vol]0.1 10*3/uLNormal0.0-0.2MSky [facility] Medical Center Comment on above:Performed By: #### CBCWD ####[facility] [facility] [place] [phone] distribution width (RBC) [Ratio] 16.2 %Critically high11.5-14.5[facility] CenterComment on above: Performed By: #### CBCWD ####[facility] [facility] [place] [phone] (Bld) [Volume fraction]23.5 %Low42.0-52.0[facility] CenterComment on above:Performed By: #### CBCWD ####[facility] [facility] [facility] RdCall[address] [place] [phone] (Bld) [Mass/Vol]7.8 g/dLLow14.0-18.0[facility] CenterComment on above: Performed By: #### CBCWD ####[facility] [facility] [facility] [address]Call[address] [place] [phone] (RBC) [Entitic mass]31.0 rpUmegvo52.0-31.3MSky Ridge Medical CenterComment on above:Performed By: #### CBCWD ####[facility] [facility] [phone] %Narjtx02.0-37.0 [facility] CenterComment on above:Performed By: #### CBCWD ####[facility] [facility] [phone] (RBC) [Entitic vol]93.3 fLCritically high79.0-92.2MSky Ridge Medical CenterComment on above:Performed By: #### CBCWD ####[facility] [facility] [phone] (Bld) [#/Vol]296 10*3/oOMwrphi221-685 [facility] CenterComment on above:Performed By: #### CBCWD ####[facility] [facility] [phone] (Bld) [#/Vol]2.52 10*6/uLLow4.70-6.10[facility] CenterComment on above: Performed By: #### CBCWD ####[facility] [facility] [phone] (Bld) [#/Vol]10.5 10*3/uLNormal4.8-10.8[facility] CenterComment on above:Performed By: #### CBCWD ####[facility] [facility] [phone] Function Panelon [id number] [Catalytic activity/Vol]88 U/L35 - 104 U/LBon [facility] ALT [Catalytic activity/Vol]67 U/LHigh0 - 41 U/LBon [facility] Medical CenterAST [Catalytic activity/Vol]21 U/L0 - 40 U/LBon [facility] CenterBilirubin [Mass/Vol]0.5 mg/dL0.2 - 0.7 mg/dLBon [facility] CenterBilirubin.direct [Mass/Vol]mg/dL0.0 - 0.4 mg/dLBon SecRapides Regional Medical Center HealthBilirubin.indirect [Mass/Vol]see below0.0 - 0.6 mg/dLBon [facility] HealthProtein [Mass/Vol]5.2 g/dLLow6.3 - 8.0 g/dLBon Secours [facility] Medical CenterLiver Panelon [id number] [Catalytic activity/Vol]88 U/GFysjqc13-959IcjodArkansas Valley Regional Medical CenterComment on above:Performed By: #### LIVER ####[facility] [place] [phone] [Catalytic activity/Vol]67 U/LCritically high 0-41[facility] CenterComment on above:Performed By: #### LIVER ####[facility]Man[facility] Healthcare Centerain [place] [phone] [Catalytic activity/Vol]21 U/LNormal0-40[facility] CenterComment on above:Performed By: #### LIVER ####[facility]Manning Regional Healthcare Centerain [place] [phone] [Mass/Vol]0.5 mg/dLNormal0.2-0.7[facility] CenterComment on above:Performed By: #### LIVER ####[facility]Man[address] Healthcare Centerain [place] [phone] Indirectsee belowNormal0.0-0.6MSky Ridge Medical CenterComment on above: Result Comment: Indirect Bilirubin cannot be calculated since Total Bilirubin and/or Direct Bilirubin is below measurable range.Performed By: #### LIVER ####[facility] [place] [phone] Bilirubin.indirect [Mass/Vol]mg/dLNormal0.0-0.4[facility] Comment on above:Performed By: #### LIVER ####[facility] [place] [phone] [Mass/Vol]5.2 g/dLLow6.3-8.0[facility] CenterComment on above:Performed By: #### LIVER ####[facility] [place] [phone] 82-52-6467Rplbfaysk [Mass/Vol]1.8 mg/dL1.7 - 2.4 mg/dLBon [facility] Magnesium [Mass/Vol]1.8 mg/dLNormal1.7-2.4[facility] CenterComment on above:Performed By: #### PGLU #### [facility] [address] [place] [address] Cx Panel Informationon [id number] and review of laboratory resultsAbnormalBon [facility] Health Description Blood BankRed Blood Cells, Leuko-reducedBon [facility] Dispense Status Blood BankreleasedBon [facility] CenterProduct Code Blood [id number] [facility] CenterPREPARE RBC (CROSSMATCH), 1 Unitson 64-63-3570Gmlwr product unit ID (Dose) [#][id number] [facility] Blood product unit ID (Dose) [#][id number] SecRapides Regional Medical Center HealthBlood product unit ID (Dose) [#][id number] SecRapides Regional Medical Center HealthBlood product unit ID (Dose) [#][id number] [facility] CenterDescription Blood BankRed Blood Cells, Apheresis, Leuko-reducedBon [facility] HealthDispense Status Blood BanktransfusedBon [facility] CenterProduct Code Blood [id number] [facility] SecRapides Regional Medical Center HealthRenal Function Panelon 04-15-2024 Albumin [Mass/Vol]2.6 g/dLLow3.5 - 4.6 g/dLBon SecDoctors Hospitaly HealthAnion gap [Moles/Vol]8 mmol/LLowBon [facility] HealthCalcium [Mass/Vol]8.2 mg/dLLow8.5 - 9.9 mg/dLBon [facility]ours Mer[facility] HealthChloride [Moles/Vol]102 mmol/LBon [facility]ours [facility] HealthCO2 [Moles/Vol]31 mmol/LBon [facility] HealthCreatinine [Mass/Vol]0.97 mg/dL0.70 - 1.20 mg/dLBon [facility]ours [facility] HealthGFR/1.73 sq M.predicted among non-blacks MDRD (S/P/Bld) [Vol rate/Area]86.9 mL/min/{1.73_m2} 60 - PINFBon Secours Mercy HealthGlucose [Mass/Vol]97 mg/dL70 - 99 mg/dLBon [facility] HealthPhosphate [Mass/Vol]2.7 mg/dL2.3 - 4.8 mg/dLBon [facility] HealthPotassium [Moles/Vol]3.5 mmol/LBon [facility]ours [facility] HealthSodium [Moles/Vol]141 mmol/LBon [facility]ours [facility] HealthUrea nitrogen [Mass/Vol]12 mg/dL8 - 23 mg/dLBon Secours [facility] HealthAlbumin [Mass/Vol]2.6 g/dLLow3.5-4.6MSky Ridge Medical CenterComment on above:Performed By: #### PGLU #### [facility] [address] [place] [address] Nyyfh gap [Moles/Vol]8 mmol/LLow9-15[facility] Comment on above:Performed By: #### PGLU #### [facility] [address] [place] [address] Uikfeve [Mass/Vol]8.2 mg/dLLow8.5-9.9[facility] Comment on above:Performed By: #### PGLU #### [facility] [address] [place] [address] Acvvxqjp [Moles/Vol]102 mmol/RPyxdyg97-640NqxnvArkansas Valley Regional Medical CenterComment on above:Performed By: #### PGLU #### [facility] [address] [place] [address] HB9 [Moles/Vol]31 mmol/WBwhlzk75-29ExbzjAr[facility] Comment on above:Performed By: #### PGLU #### [facility] [address] [place] [address] Trjfhbcjcq [Mass/Vol]0.97 mg/dLNormal0.70-1.20[facility] CenterComment on above:Performed By: #### PGLU #### [facility] [address] [place] [address] BEC03.9Normal>60[facility] CenterComment on above:Result Comment: Pediatric calculator link https://www.kidney.org/professionals/kdoqi/gfr_calculatorped Effective Feb [...] or following therapy that affects renal tubular secretion.Performed By: #### PGLU #### [facility] [address] [place] [address] Mfdovjm [Mass/Vol]97 mg/xYQfkoxv36-60QxvsmSky Ridge Medical Center Comment on above:Performed By: #### PGLU #### [facility] [address] [place] [address] Sezsvnxwy [Mass/Vol]2.7 mg/dLNormal2.3-4.8[facility] CenterComment on above:Performed By: #### PGLU #### [facility] [address] [place] [address] Cwxvbbbns [Moles/Vol]3.5 mmol/LNormal3.4-4.9[facility] CenterComment on above:Performed By: #### PGLU #### [facility] [address] [place] [address] Olwgim [Moles/Vol]141 mmol/JUzmtpt008-422AqmskArkansas Valley Regional Medical CenterComment on above:Performed By: #### PGLU #### [facility] [address] [place] [address] Zivl nitrogen [Mass/Vol]12 mg/dLNormal01-11[facility] CenterComment on above:Performed By: #### PGLU #### [facility] [address] [place] [address] H-Reactive Proteinon 33-19-1988VJB High sensitivity method [Mass/Vol]116.8 mg/LHigh0.0 - 5.0 mg/LBon SecMercy Health Urbana HospitalCRP [Mass/Vol] 116.8 mg/LCritically high0.0-5.0[facility] CenterComment on above: Performed By: #### CRP ####[facility] [place] [phone] W Auto Differential panel (Bld)on 23-54-8673Aolsfspar (Bld) [#/Vol]0.2 10*3/uL0.0 - 0.2 K/uLBon SecRapides Regional Medical Center HealthBasophils/100 WBC (Bld) 2.0 %Bon SecRapides Regional Medical Center HealthEosinophils (Bld) [#/Vol]0.9 10*3/uLHigh0.0 - 0.7 K/uLBon Secours [facility] HealthEosinophils/100 WBC (Bld)8.0 %[facility] HospitalErythrocyte distribution width (RBC) [Ratio]16.4 %High11.5 - 14.5 %Bon SecRapides Regional Medical Center HealthHematocrit (Bld) [Volume fraction]24.5 %Low42.0 - 52.0 %Bon SecMercy Health Urbana HospitalHemoglobin (Bld) [Mass/Vol]8.2 g/dLLow14.0 - 18.0 g/dLBon SecMercy Health Urbana HospitalInterpretation and review of laboratory resultsAbnormalBon SecDoctors Hospitaly HealthLymphocytes (Bld) [#/Vol]1.1 10*3/uL1.0 - 4.8 K/uLBon Secours [facility] HealthLymphocytes/100 WBC (Bld)10.0 %Bon [facility] HospitalH (RBC) [Entitic mass]31.4 uqJfgn04.0 - 31.3 pgBon SecUniversity Hospitals Conneaut Medical CenterHC (RBC) [Mass/Vol]33.5 %33.0 - 37.0 %Bon Protestant HospitalV (RBC) [Entitic vol]93.9 dSZbzl97.0 - 92.2 fLBon [facility] Medical CenterMonocytes (Bld) [#/Vol]0.8 10*3/uL 0.2 - 0.8 K/uLBon [facility] Medical CenterMonocytes/100 WBC (Bld)6.7 %Bon [facility] CenterNeutrophils (Bld) [#/Vol]8.3 10*3/uLHigh1.4 - 6.5 K/uLBon [facility] CenterNucleated RBC/100 WBC (Bld) [Ratio]4 %/100 WBCBon [facility] Medical CenterPlatelets (Bld) [#/Vol]200 10*3/uL130 - 400 K/uLBon [facility] Platelets LM Ql (Bld)AdequateBon SecRapides Regional Medical Center HealthRBC (Bld) [#/Vol]2.61 10*6/uLLowBon [facility] CenterSegmented neutrophils/100 WBC (Bld)74.0 %Bon [facility] CenterWBC (Bld) [#/Vol]11.2 10*3/uLHigh4.8 - 10.8 K/uLBon [facility] and SchoolCBC With Platelet and Differentialon [id number] Slide ReviewAdeMcKee Medical Center Comment on above:Performed By: #### PGLU #### [facility] [address] [place] [address] AEUIJ REVIEWsee belowNormPioneer Community Hospital of PatrickComment on above: Result Comment: Slide review agrees with reported resultsPerformed By: #### PGLU #### [facility] [address] [place] [address] Bgotsaimp (Bld) [#/Vol]0.2 10*3/uLNormal0.0-0.2MSky Ridge Medical CenterComment on above:Performed By: #### PGLU #### [facility] [address] [place] [address] Kygpavwvf/100 WBC (Bld)2.0 %[facility] Comment on above:Performed By: #### PGLU #### [facility] [address] [place] [address] Mxbvnfmorze (Bld) [#/Vol]0.9 10*3/uLCritically high0.0-0.7[facility] CenterComment on above:Performed By: #### PGLU #### [facility] [address] [address] Kvuclfisuxt/100 WBC (Bld)8.0 %[facility] Comment on above:Performed By: #### PGLU #### [facility] [address] [address] Yfqzxttljta (Bld) [#/Vol]1.1 10*3/uLNormal1.0-4.8[facility] CenterComment on above:Performed By: #### PGLU #### [facility] [address] [place] [address] Oxnqmhtddbb/100 WBC (Bld)10.0 %[facility] Comment on above:Performed By: #### PGLU #### [facility] [address] [place] [address] Ozbggpiho (Bld) [#/Vol]0.8 10*3/uLNormal0.2-0.8[facility] CenterComment on above:Performed By: #### PGLU #### [facility] [address] [place] [address] Joeysiitv/100 WBC (Bld)6.7 %[facility] Comment on above:Performed By: #### PGLU #### [facility] [address] [place] [address] Eawbeyctqdb (Bld) [#/Vol]8.3 10*3/uLCritically high1.4-6.5[facility] CenterComment on above:Performed By: #### PGLU #### [facility] [address] [place] [address] Pertapjywdp/100 WBC (Bld)74.0 %NormalArkansas [facility] Comment on above:Performed By: #### PGLU #### [facility] [address] [place] [address] Ultvjkpxr RBC4 /100 WBCNormalArkansas Valley Regional Medical CenterComment on above:Performed By: #### PGLU #### [facility] [address] [place] [address] Gcwzxqztdje distribution width (RBC) [Ratio]16.4 %Critically high 11.5-14.5[facility] CenterComment on above:Performed By: #### PGLU #### [facility] [address] [address] Vjvvnfprmq (Bld) [Volume fraction]24.5 %Low42.0-52.0[facility] CenterComment on above:Performed By: #### PGLU #### [facility] [address] [address] Biutpayexe (Bld) [Mass/Vol]8.2 g/dLLow14.0-18.0[facility] CenterComment on above:Performed By: #### PGLU #### [facility] [address] [place] [address] CCI (RBC) [Entitic mass]31.4 pgCritically high27.0-31.3MSky Ridge Medical CenterComment on above:Performed By: #### PGLU #### [facility] [address] [place] [address] FUBI10.5 %Jgfqjv70.0-37.0[facility] CenterComment on above:Performed By: #### PGLU #### [facility] [address] [place] [place] [address] RNT (RBC) [Entitic vol]93.9 fLCritically high79.0-92.2MSky Ridge Medical CenterComment on above:Performed By: #### PGLU #### [facility] [address] [place] [address] Djzyzvafr (Bld) [#/Vol]200 10*3/rPGcmtdy497-761VjgktArkansas Valley Regional Medical CenterComment on above:Performed By: #### PGLU #### [facility] [address] [place] [address] RTD (Bld) [#/Vol]2.61 10*6/uLLow4.70-6.10[facility] CenterComment on above:Performed By: #### PGLU #### [facility] [address] [place] [address] JBF (Bld) [#/Vol]11.2 10*3/uLCritically high4.8-10.8[facility] CenterComment on above:Performed By: #### PGLU #### [facility] [address] [place] [address] ZNF High sensitivity method [Mass/Vol]on 60-17-6825Gamrsxermrlrgt and review of laboratory resultsAbnormalHenrico Doctors' Hospital—Henrico CampusHepatic Function Panelon 74-56-8881URI [Catalytic activity/Vol]72 U/L35 - 104 U/LBon [facility] CenterALT [Catalytic activity/Vol]104 U/LHigh0 - 41 U/LBon [facility] HealthAST [Catalytic activity/Vol]33 U/L0 - 40 U/LBon [facility] CenterBilirubin [Mass/Vol]0.7 mg/dL0.2 - 0.7 mg/dLBon [facility] CenterBilirubin.direct [Mass/Vol]0.3 mg/dL0.0 - 0.4 mg/dLBon [facility] CenterBilirubin.indirect [Mass/Vol]0.4 mg/dL0.0 - 0.6 mg/dLBon [facility] CenterProtein [Mass/Vol]5.1 g/dLLow6.3 - 8.0 g/dLBon [facility] Medical CenterLiver Panelon [id number] [Catalytic activity/Vol]72 U/QMclchb08-801NqrrrArkansas Valley Regional Medical CenterComment on above:Performed By: #### LIVER ####[facility] RdMercyOne Elkader [facility] Center [phone] [Catalytic activity/Vol]104 U/LCritically high0-41[facility] CenterComment on above:Performed By: #### LIVER ####[facility] [place] [phone] [Catalytic activity/Vol]33 U/LNormal0-40[facility] CenterComment on above:Result Comment: Specimen hemolysis has exceeded the interference as defined by Cesar. Value may be falsely increased. Suggest recollection if clinically indicated.Performed By: #### LIVER ####[facility] [place] [phone] [Mass/Vol]0.7 mg/dLNormal0.2-0.7[facility] CenterComment on above:Performed By: #### LIVER ####[facility] [place] [phone] Indirect0.4 mg/dLNormal0.0-0.6MSky Ridge Medical CenterComment on above:Performed By: #### LIVER ####[facility] [place] [phone].indirect [Mass/Vol]0.3 mg/dLNormal0.0-0.4[facility] Valley Regional Medical CenterComment on above:Result Comment: Specimen hemolysis has exceeded the interference as defined by Cesar. Value may be falsely increased. Suggest recollection if clinically indicated.Performed By: #### LIVER ####[facility] [place] [phone] [Mass/Vol]5.1 g/dLLow6.3-8.0[facility] CenterComment on above:Performed By: #### LIVER ####[facility] [place] [phone] Magnesiumon 96-87-1376Xynletrnm [Mass/Vol]2.0 mg/dL1.7 - 2.4 mg/dLBon [facility] Regional Medical CenterMagnesium [Mass/Vol]2.0 mg/dLNormal1.7-2.4[facility] CenterComment on above:Performed By: #### MG ####[facility] [place] [phone] Panel Informationon 04-14-2024 Interpretation and review of laboratory resultsAbnormPioneer Community Hospital of Patrick Bon [facility] CenterPOCT Glucoseon 22-11-0083Lfxmfxf [Mass/Vol]109 mg/dLHigh 70 - 99 mg/dlBon [facility] Medical CenterInterpretation and review of laboratory resultsAbnormPioneer Community Hospital of PatrickPerformed onACCU-CHEKBon Children's Care Hospital and SchoolGlucose [Mass/Vol]109 mg/dLCritically vbpv88-65 [facility] CenterComment on above:Performed By: #### PGLU #### [facility] [address] [place] [address] GWL Performed [facility] HospitalComment on above:Performed By: #### PGLU #### [facility] [address] [place] [address] Ucnuwfc [Mass/Vol]98 mg/dL70 - 99 mg/dlBon [facility] Performed onACCU-CHEKBon Children's Care Hospital and SchoolGlucose [Mass/Vol]98 mg/gYSiveka35-10PapdkSky Ridge Medical CenterComment on above: Performed By: #### PGLU #### [facility] [address] [place] [address] QAP Performed [facility] HospitalComment on above:Performed By: #### PGLU #### [facility] [address] [place] [address] Oxqupnt [Mass/Vol]109 mg/jXDbru47 - 99 mg/dlBon [facility] Interpretation and review of laboratory resultsAbnormalBon [facility] Performed onACCU-CHEKBon Adena Regional Medical CenterBon [facility] Medical CenterGlucose [Mass/Vol]109 mg/dLCritically ohfz54-50FuijpSky Ridge Medical CenterComment on above:Performed By: #### PGLU #### [facility] [address] [place] [address] UDU Performed onCOOK HOSPITALU-CHEKNormalArkansas Valley Regional Medical CenterComment on above:Performed By: #### PGLU #### [facility] [address] [place] [address] Ibxoqwaaxvdbdkv 87-30-2928Qbmffxbpqkoyy [place] [Mass/Vol]0.43 ng/mLHigh 0.00 - 0.15 ng/mLBon [facility] Medical CenterProcalcitonin0.43 ng/mLCritically high 0.00-0.15[facility] CenterComment on above:Result Comment: Suspected Sepsis: Low likelihood of sepsis <.50 ng/mL Increased [...] to determine the patient's Mortality Risk Prognosis (www.gmgsat-yuk-nungxqclhm.com) In healthy neonates, plasma Procalcitonin (PCT) concentrations increase gradually after , reaching peak values at about 24 hours of age then decrease to normal values below 0.5 ng/mL by 48-72 hours of age.Performed By: #### PROCT ####[facility] [place] [phone] [place] [Mass/Vol]on 97-36-6775Wbnxyqtpamtbda and review of laboratory resultsAbnormalBon [facility] Andersony HealthBon [facility] HealthRenal Function Panelon 42-62-3111Mvbkzrn [Mass/Vol]2.5 g/dLLow3.5 - 4.6 g/dLBon Secours Mercy HealthAnion gap [Moles/Vol] 10 mmol/LBon Secours Mercy HealthCalcium [Mass/Vol]7.8 mg/dLLow8.5 - 9.9 mg/dL [facility] HealthChloride [Moles/Vol]104 mmol/LBon [facility] Health CO2 [Moles/Vol]26 mmol/LBon Secours Mercy HealthCreatinine [Mass/Vol]0.86 mg/dL 0.70 - 1.20 mg/dLBon Secours [facility] Anders[facility] HealthGFR/1.73 sq M.predicted among non- blacks MDRD (S/P/Bld) [Vol rate/Area]60 - PINFBon SecDoctors Hospitaly HealthGlucose [Mass/Vol]93 mg/dL70 - 99 mg/dLBon Secours Mercy HealthPhosphate [Mass/Vol]2.0 mg/dLLow2.3 - 4.8 mg/dLBon Secours Mercy HealthPotassium [Moles/Vol]4.2 mmol/L Bon SecDoctors Hospitaly HealthSodium [Moles/Vol]140 mmol/LBon SecDoctors Hospitaly HealthUrea nitrogen [Mass/Vol]13 mg/dL8 - 23 mg/dLBon [facility]ours [facility] HealthAlbumin [Mass/Vol]2.5 g/dLLow3.5-4.6Mault[facility] alliance community hospitaly [facility] CenterComment on above: Performed By: #### TS3C #### [facility] [address] [place] [address] Vhzqi gap [Moles/Vol]10 mmol/LNormal9-15[facility] CenterComment on above:Performed By: #### TS3C #### [facility] [address] [place] [address] Qzmxexz [Mass/Vol]7.8 mg/dLLow8.5-9.9[facility] Comment on above:Performed By: #### TS3C #### [facility] [address] [place] [address] Qprrkbpc [Moles/Vol]104 mmol/JKrgdui23-104UbbgrArkansas Valley Regional Medical CenterComment on above:Performed By: #### TS3C #### [facility] [address] [place] [address] DF4 [Moles/Vol]26 mmol/NWvssto54-14NqeguArkansas Valley [facility] Comment on above:Performed By: #### TS3C #### [facility] [address] [place] [address] Xphvwbrkln [Mass/Vol]0.86 mg/dLNormal0.70-1.20[facility] CenterComment on above:Performed By: #### TS3C #### [facility] [address] [place] [address] UKJ>90.0Normal>60[facility] CenterComment on above: Result Comment: Pediatric calculator link https://www.kidney.org/professionals/kdoqi/gfr_calculatorped Effective Feb [...] or following therapy that affects renal tubular secretion.Performed By: #### TS3C #### [facility] [address] [place] [address] Pehosoa [Mass/Vol]93 mg/fFRupgli74-59FoyjySky Ridge Medical Center Comment on above:Performed By: #### TS3C #### [facility] [address] [place] [address] Bkytxznlu [Mass/Vol]2.0 mg/dLLow2.3-4.8[facility] Comment on above:Performed By: #### TS3C #### [facility] [address] [place] [address] Zaxzloyqq [Moles/Vol]4.2 mmol/LNormal3.4-4.9[facility] CenterComment on above:Performed By: #### TS3C #### [facility] [address] [place] [address] Wssyyp [Moles/Vol]140 mmol/IBopovt819-742BlgoaArkansas Valley Regional Medical CenterComment on above:Performed By: #### TS3C #### [facility] [address] [place] [address] Xghg nitrogen [Mass/Vol]13 mg/dLNormal8-23[facility] CenterComment on above:Performed By: #### TS3C #### [facility] [address] [place] [address] TTB W Auto Differential panel (Bld)on 24-93-9482Aqkywbzfz (Bld) [#/Vol]0.0 10*3/uL0.0 - 0.2 K/uLBon Adena Regional Medical CenterBasophils/100 WBC (Bld) 0.3 %[facility]aks HospitalErythrocyte distribution width (RBC) [Ratio]16.7 % High11.5 - 14.5 %[facility] HospitalHematocrit (Bld) [Volume fraction]23.2 %Low42.0 - 52.0 %[facility] HospitalHemoglobin (Bld) [Mass/Vol]8.0 g/dLLow 14.0 - 18.0 g/dLBon [facility] CenterInterpretation and review of laboratory resultsAbnormalBon Protestant HospitalH (RBC) [Entitic mass]31.1 pg27.0 - 31.3 pgBon Protestant HospitalHC (RBC) [Mass/Vol]34.5 %33.0 - 37.0 %Bon Protestant HospitalV (RBC) [Entitic vol]90.3 fL79.0 - 92.2 fLBon Secours Mercy HealthNucleated RBC/100 WBC (Bld) [Ratio]1 %/100 WBCBon Secours [facility] HealthPlatelets (Bld) [#/Vol]180 10*3/uL130 - 400 K/uLBon [facility] Platelets LM Ql (Bld)AdequateBon [facility] HealthRBC (Bld) [#/Vol]2.57 10*6/uLLowBon [facility]ena [facility] Medical CenterSegmented neutrophils/100 WBC (Bld)83.0 %[facility] Medical CenterWBC (Bld) [#/Vol]12.1 10*3/uLHigh4.8 - 10.8 K/uLBon Sec[facility] HealthBon SecMercy Health Urbana HospitalCBC With Platelet and Differentialon 58-52-3813Afnkpnzbisy (Bld) [#/Vol]0.1 10*3/uLNormal0.0-0.7[facility] HealthComment on above:Performed By: #### TS3C #### [facility] [address] [address] Jfbyuosjbfk/100 WBC (Bld)1.0 %NormalBon Secours [facility] Hospital HealthComment on above:Performed By: #### TS3C #### [facility] [address] [address] Whiqcbyhpoc (Bld) [#/Vol]1.3 10*3/uLNormal1.0-4.8[facility] HealthComment on above:Performed By: #### TS3C #### [facility] [address] [address] Hvtetttzzfw/100 WBC (Bld)11.0 %NormalBon Secours [facility] Hospital HealthComment on above:Performed By: #### TS3C #### [facility] [address] [address] Thvpbulzu (Bld) [#/Vol]0.7 10*3/uLNormal0.2-0.8[facility] HealthComment on above:Performed By: #### TS3C #### [facility] [address] [place] [address] Xsxfbgmzn/100 WBC (Bld)5.7 %NormalBon [facility] Medical CenterCombrighton hospital on above:Performed By: #### TS3C #### [facility] [address] [place] [address] Wkbzenmzrsv (Bld) [#/Vol]10.0 10*3/uLCritically high1.4-6.5Bon [facility] CenterComment on above:Performed By: #### TS3C #### [facility] [address] [place] [address] Zvtyctae Slide ReviewAdequatVail Health Hospital Comment on above:Performed By: #### TS3C #### [facility] [address] [place] [address] RGVTB REVIEWsee belowNormilBon [facility] on above: Result Comment: Slide review agrees with reported resultsPerformed By: #### TS3C #### [facility] [address] [place] [address] Diwwqsioybo/100 WBC (Bld)83.0 %[facility] Comment on above:Performed By: #### TS3C #### [facility] [address] [place] [address] Encreahwf RBC1 /100 WBCNoWray Community District HospitalComment on above:Performed By: #### TS3C #### [facility] [address] [place] [address] Kicgrvgbn (Bld) [#/Vol]0.0 10*3/uLNormal0.0-0.2MercLaurel Oaks Behavioral Health CenterComment on above:Performed By: #### TS3C #### [facility] [address] [place] [address] Inlxkfpiq/100 WBC (Bld)0.3 %[facility] Comment on above:Performed By: #### TS3C #### [facility] [address] [place] [address] Xlgmuylxzsj distribution width (RBC) [Ratio]16.7 %Critically high 11.5-14.5[facility] CenterComment on above:Performed By: #### TS3C #### [facility] [address] [place] [address] Pgsyaskyel (Bld) [Volume fraction]23.2 %Low42.0-52.0[facility] CenterComment on above:Performed By: #### TS3C #### [facility] [address] [place] [address] Lszyujzdti (Bld) [Mass/Vol]8.0 g/dLLow14.0-18.0[facility] CenterComment on above:Performed By: #### TS3C #### [facility] [address] [place] [address] KHS (RBC) [Entitic mass]31.1 clBxxgak39.0-31.3MSky Ridge Medical CenterComment on above:Performed By: #### TS3C #### [facility] [address] [place] [address] IABW38.5 %Huuzdp07.0-37.0[facility] CenterComment on above:Performed By: #### TS3C #### [facility] [address] [place] [address] FQY (RBC) [Entitic vol]90.3 rBLmeqdv73.0-92.2MSky Ridge Medical CenterComment on above:Performed By: #### TS3C #### [facility] [address] [place] [address] Rwfyvxyai (Bld) [#/Vol]180 10*3/yHDmqzlo432-635AvgtdArkansas Valley Regional Medical CenterComment on above:Performed By: #### TS3C #### [facility] [address] [place] [address] BWB (Bld) [#/Vol]2.57 10*6/uLLow4.70-6.10[facility] CenterComment on above:Performed By: #### TS3C #### [facility] [address] [place] [address] CYY (Bld) [#/Vol]12.1 10*3/uLCritically high4.8-10.8[facility] CenterComment on above:Performed By: #### TS3C #### [facility] [address] [place] [address] QDQ Rhythm Stripon 47-64-1897AUNJWAspirus [facility] Hemoglobin and Hematocriton 90-22-3448Msotyfcdim (Bld) [Volume fraction]23.0 % Low42.0-52.0Bon [facility] CenterComment on above:Performed By: #### TS3C #### [facility] [address] [place] [address] Ajvqelcfmp (Bld) [Mass/Vol]8.1 g/dLLow14.0-18.0Bon [facility] CenterComment on above:Performed By: #### TS3C #### [facility] [address] [place] [address] Zzjrpiabaxiqyr and review of laboratory resultsAbnormalHenrico Doctors' Hospital—Henrico CampusHepatic Function Panelon 95-26-2157JBG [Catalytic activity/Vol]58 U/L35 - 104 U/LBon [facility]ena Regional Medical CenterALT [Catalytic activity/Vol]160 U/LHigh0 - 41 U/LBon [facility]ena Regional Medical CenterAST [Catalytic activity/Vol]79 U/LHigh0 - 40 U/LBon [facility] Medical CenterBilirubin [Mass/Vol]0.7 mg/dL0.2 - 0.7 mg/dLBon [facility] Medical CenterBilirubin.direct [Mass/Vol]0.5 mg/dLHigh0.0 - 0.4 mg/dLBon [facility] Medical CenterBilirubin.indirect [Mass/Vol]0.2 mg/dL0.0 - 0.6 mg/dLBon [facility] CenterProtein [Mass/Vol]4.7 g/dLLow6.3 - 8.0 g/dLBon SecMercy Health Urbana HospitalLiver Panelon [id number] [Catalytic activity/Vol]58 U/ZDugbxa15-018JwqitArkansas Valley Regional Medical CenterComment on above: Performed By: #### PGLU #### [facility] [address] [place] [address] LLP [Catalytic activity/Vol]160 U/LCritically high0-41[facility] CenterComment on above:Performed By: #### PGLU #### [facility] [address] [place] [address] DSP [Catalytic activity/Vol]79 U/LCritically high0-40[facility] CenterComment on above:Performed By: #### PGLU #### [facility] [address] [place] [address] Fixpaiihd [Mass/Vol]0.7 mg/dLNormal0.2-0.7[facility] CenterComment on above:Performed By: #### PGLU #### [facility] [address] [place] [address] Xehfjaqxo Indirect0.2 mg/dLNormal0.0-0.6MSky Ridge Medical CenterComment on above:Performed By: #### PGLU #### [facility] [address] [place] [address] Ncyvpyjcq.indirect [Mass/Vol]0.5 mg/dLCritically high0.0-0.4[facility] CenterComment on above:Performed By: #### PGLU #### [facility] [address] [place] [address] Cxggula [Mass/Vol]4.7 g/dLLow6.3-8.0[facility] Comment on above:Performed By: #### PGLU #### [facility] [address] [place] [address] Swggxmocuys 32-98-8723Euoleyvkl [Mass/Vol]1.6 mg/dLLow1.7 - 2.4 mg/dLBon [facility]ena Regional Medical CenterMagnesium [Mass/Vol]1.6 mg/dLLow1.7-2.4[facility] CenterComment on above:Performed By: #### MG ####[facility] [facility] [phone] Panel Informationon 31-91-7223Aevhnaheatacgx and review of laboratory resultsAbnormalBon [facility] and SchoolPOCT Glucoseon 25-84-5683Ctrfuep [Mass/Vol] 115 mg/dPOwhm41 - 99 mg/dlBon [facility] CenterInterpretation and review of laboratory resultsAbnormalInova Fair Oaks HospitalPerformed onACCU-CHEKBon Children's Care Hospital and SchoolGlucose [Mass/Vol]115 mg/dL Critically zmpm61-31WvdicSky Ridge Medical CenterComment on above:Performed By: #### PGLU ####[facility] [facility] [phone] Performed onCOOK HOSPITALU-[facility] Comment on above:Performed By: #### PGLU ####[facility] [facility] [phone] Function Panelon 02-17-1348Zcbxqmz [Mass/Vol]2.6 g/dLLow3.5 - 4.6 g/dLBon Adena [facility] Medical CenterAnion gap [Moles/Vol] 6 mmol/LLowBon [facility] CenterCalcium [Mass/Vol]7.6 mg/dLLow8.5 - 9.9 mg/dL [facility] HealthChloride [Moles/Vol]109 mmol/LHighBon [facility] HealthCO2 [Moles/Vol]27 mmol/LBon [facility] Medical CenterCreatinine [Mass/Vol]1.10 mg/dL0.70 - 1.20 mg/dLBon [facility] Medical CenterGFR/1.73 sq M.predicted among non- blacks MDRD (S/P/Bld) [Vol rate/Area]74.7 mL/min/{1.73_m2}60 - PINFBon [facility] HealthGlucose [Mass/Vol]105 mg/mMRthf25 - 99 mg/dLBon [facility] Phosphate [Mass/Vol]1.1 mg/dLLow2.3 - 4.8 mg/dLBon [facility] HealthPotassium [Moles/Vol]3.7 mmol/LBon [facility] HealthSodium [Moles/Vol]142 mmol/LBon [facility] HealthUrea nitrogen [Mass/Vol]17 mg/dL8 - 23 mg/dLBon [facility] HealthAlbumin [Mass/Vol]2.6 g/dLLow3.5-4.6MSky [facility] Comment on above:Performed By: #### PGLU #### [facility] [address] [place] [address] Rwomt gap [Moles/Vol]6 mmol/LLow9-15[facility] Comment on above:Performed By: #### PGLU #### [facility] [address] [place] [address] Zvctnfi [Mass/Vol]7.6 mg/dLLow8.5-9.9[facility] Comment on above:Performed By: #### PGLU #### [facility] [address] [place] [address] Ikrhulaz [Moles/Vol]109 mmol/LCritically fvev01-180IgspmArkansas Valley Regional Medical CenterComment on above:Performed By: #### PGLU #### [facility] [address] [place] [address] LV5 [Moles/Vol]27 mmol/DMzgbra66-43TtawrArk[facility] Comment on above:Performed By: #### PGLU #### [facility] [address] [place] [address] Mgrqdsgwca [Mass/Vol]1.10 mg/dLNormal0.70-1.20[facility] CenterComment on above:Performed By: #### PGLU #### [facility] [address] [place] [address] KSG91.7Normal>60[facility] CenterComment on above:Result Comment: Pediatric calculator link https://www.kidney.org/professionals/kdoqi/gfr_calculatorped Effective Feb [...] or following therapy that affects renal tubular secretion.Performed By: #### PGLU #### [facility] [address] [place] [address] [employer]wlsorp [Mass/Vol]105 mg/dLCritically lqhi48-59BmbjuSky Ridge Medical CenterComment on above:Performed By: #### PGLU #### [facility] [address] [facility] [address] Fktkzngvn [Mass/Vol]1.1 mg/dLLow2.3-4.8[facility] Comment on above:Performed By: #### PGLU #### [facility] [address] [facility] [address] Bodztwyud [Moles/Vol]3.7 mmol/LNormal3.4-4.9[facility] CenterComment on above:Performed By: #### PGLU #### [facility] [address] [place] [address] Rpayvj [Moles/Vol]142 mmol/MOqvxyc696-385XxfnpArkansas Valley Regional Medical CenterComment on above:Performed By: #### PGLU #### [facility] [address] [place] [address] Ihng nitrogen [Mass/Vol]17 mg/dLNormal8-23[facility] CenterComment on above:Performed By: #### PGLU #### [facility] [address] [facility] [address] BYQ W Auto Differential panel (Bld)on 78-22-1675Xfldbhhzdqiftk and review of laboratory resultsAbnormalBon [facility] Medical CenterMCHC (RBC) [Mass/Vol]34.4 %33.0 - 37.0 %[facility] HospitalSegmented neutrophils/100 WBC (Bld)74.9 %Bon [facility] With Platelet and Differentialon 28-43-4053Bdshbirmm (Bld) [#/Vol]0.0 10*3/uLNormal0.0-0.2[facility] Medical CenterComment on above:Performed By: #### TS3C #### [facility] [address] [place] [place] [address] Dnraykrvm/100 WBC (Bld)0.2 %NormalBon [facility] Medical CenterComment on above:Performed By: #### TS3C #### [facility] [address] [place] [address] Ehsyhlbdwef (Bld) [#/Vol]0.0 10*3/uLNormal0.0-0.7Bon SecMercy Health Urbana HospitalComment on above:Performed By: #### TS3C #### [facility] [address] [place] [address] Bdskltepibj/100 WBC (Bld)0.1 %NormalBon [facility] Medical CenterComment on above:Performed By: #### TS3C #### [facility] [address] [place] [address] Twnbcqphham distribution width (RBC) [Ratio]17.2 %Critically high 11.5-14.5Bon SecMercy Health Urbana HospitalComment on above:Performed By: #### TS3C #### [facility] [address] [place] [address] Gknlcoyauj (Bld) [Volume fraction]22.1 %Low42.0-52.0Bon SecMercy Health Urbana HospitalComment on above:Performed By: #### TS3C #### [facility] [address] [place] [address] Jkcbusptde (Bld) [Mass/Vol]7.6 g/dLLow14.0-18.0Bon SecMercy Health Urbana HospitalComment on above:Performed By: #### TS3C #### [facility] [address] [place] [address] Iiqjemqwlbv (Bld) [#/Vol]1.6 10*3/uLNormal1.0-4.8Bon SecMercy Health Urbana HospitalComment on above:Performed By: #### TS3C #### [facility] [address] [place] [address] Ntgfpqilmtq/100 WBC (Bld)14.6 %NormalBon SecMercy Health Urbana HospitalComment on above:Performed By: #### TS3C #### [facility] [address] [place] [address] CAD (RBC) [Entitic mass]30.6 ntOiovzh23.0-31.3Bon SecMercy Health Urbana HospitalCombrighton hospital on above:Performed By: #### TS3C #### [facility] [address] [place] [address] INIZ58.4 %Zapyri40.0-37.0[facility] CenterComment on above:Performed By: #### TS3C #### [facility] [address] [place] [address] OQN (RBC) [Entitic vol]89.1 mBPyxtad11.0-92.2Bon SecMercy Health Urbana HospitalComment on above:Performed By: #### TS3C #### [facility] [address] [place] [address] Jxuqggxoi (Bld) [#/Vol]1.1 10*3/uLCritically high0.2-0.8Bon SecMercy Health Urbana HospitalComment on above:Performed By: #### TS3C #### [facility] [address] [place] [address] Idrkixbvy/100 WBC (Bld)9.8 %NormalBon [facility] CenterComment on above:Performed By: #### TS3C #### [facility] [address] [place] [address] Hirwuomrvcd (Bld) [#/Vol]8.0 10*3/uLCritically high1.4-6.5Bon [facility] CenterComment on above:Performed By: #### TS3C #### [facility] [address] [place] [address] Agmnmzjcfvy/100 WBC (Bld)74.9 %[facility] Comment on above:Performed By: #### TS3C #### [facility] [address] [place] [address] Rfbrxslsi (Bld) [#/Vol]156 10*3/yLZynqmc955-462Hmo [facility] CenterComment on above:Performed By: #### TS3C #### [facility] [address] [place] [address] BDB (Bld) [#/Vol]2.48 10*6/uLLow4.70-6.10[facility] Comment on above:Performed By: #### TS3C #### [facility] [address] [place] [address] LEH (Bld) [#/Vol]10.7 10*3/uLNormal4.8-10.8[facility] Comment on above:Performed By: #### TS3C #### [facility] [address] [place] [address] Ujhhcwhuzwodh Metabolic Panelon [id number] [Mass/Vol]2.8 g/dL Low3.5-4.6MSky Ridge Medical CenterComment on above:Performed By: #### CBCND #### [facility] [address] [place] [address] XTK [Catalytic activity/Vol]52 U/BKfjgoi03-577WpdwfArkansas Valley Regional Medical CenterComment on above:Performed By: #### CBCND #### [facility] [address] [place] [address] ETC [Catalytic activity/Vol]232 U/LCritically high0-41[facility] CenterComment on above:Performed By: #### CBCND #### [facility] [address] [place] [address] Ijtwn gap [Moles/Vol]8 mmol/LLow9-15[facility] Comment on above:Performed By: #### CBCND #### [facility] [address] [place] [address] AUT [Catalytic activity/Vol]216 U/LCritically high0-40[facility] CenterComment on above:Performed By: #### CBCND #### [facility] [address] [place] [address] Ndqczvxnq [Mass/Vol]0.6 mg/dLNormal0.2-0.7[facility] CenterComment on above:Performed By: #### CBCND #### [facility] [address] [place] [address] Efxdjbw [Mass/Vol]7.3 mg/dLLow8.5-9.9[facility] Comment on above:Performed By: #### CBCND #### [facility] [address] [place] [address] Ppzvrbvc [Moles/Vol]112 mmol/LCritically uljx67-341WrtjeArkansas Valley Regional Medical CenterComment on above:Performed By: #### CBCND #### [facility] [address] [place] [address] WY7 [Moles/Vol]24 mmol/YFneaql94-62KtkpsArkansas Valley Regional [facility] Center Comment on above:Performed By: #### CBCND #### [facility] [address] [place] [address] Puvfwlggju [Mass/Vol]1.78 mg/dLCritically high0.70-1.20[facility] CenterComment on above:Performed By: #### CBCND #### [facility] [address] [place] [address] QNK27.9Low>60[facility] CenterComment on above:Result Comment: Pediatric calculator link https://www.kidney.org/professionals/kdoqi/gfr_calculatorped Effective Feb [...] or following therapy that affects renal tubular secretion.Performed By: #### CBCND #### [facility] [address] [place] [address] Ovnvreue (S) [Mass/Vol]1.8 g/dLLow2.3-3.5[facility] CenterComment on above:Performed By: #### CBCND #### [facility] [address] [place] [address] Alhtktd [Mass/Vol]102 mg/dLCritically knhc79-60MrcpzSky Ridge Medical CenterComment on above:Performed By: #### CBCND #### [facility] [address] [place] [address] Haeqyunwb [Moles/Vol]4.1 mmol/LNormal3.4-4.9[facility] CenterComment on above:Performed By: #### CBCND #### [facility] [address] [place] [address] Fljnaqd [Mass/Vol]4.6 g/dLLow6.3-8.0[facility] Comment on above:Performed By: #### CBCND #### [facility] [address] [place] [address] Duttbl [Moles/Vol]144 mmol/ZUtslak334-692IaghoArkansas Valley Regional Medical CenterComment on above:Performed By: #### CBCND #### [facility] [address] [place] [address] Kiok nitrogen [Mass/Vol]30 mg/dLCritically high8-[facility] CenterComment on above:Performed By: #### CBCND #### [facility] [address] [place] [address] Mhbhhjcyokyhq metabolic 2000 panelon [id number] [Mass/Vol]2.8 g/dLLow3.5 - 4.6 g/dLBon Secours Mercy HealthALP [Catalytic activity/Vol]52 U/L 35 - 104 U/LBon Secours Mercy HealthALT [Catalytic activity/Vol]232 U/LHigh0 - 41 U/LBon Secours Mercy HealthAnion gap [Moles/Vol]8 mmol/LLowBon Secours Mercy HealthAST [Catalytic activity/Vol]216 U/LHigh0 - 40 U/LBon [facility]ours [facility]cy Health Bilirubin [Mass/Vol]0.6 mg/dL0.2 - 0.7 mg/dLBon Secours Mercy HealthCalcium [Mass/Vol]7.3 mg/dLLow8.5 - 9.9 mg/dLBon Secours Mercy HealthChloride [Moles/Vol]112 mmol/LHighBon Secours Mercy HealthCO2 [Moles/Vol]24 mmol/LBon Secours Mercy HealthCreatinine [Mass/Vol]1.78 mg/dLHigh0.70 - 1.20 mg/dLBon Secours Mercy HealthGFR/1.73 sq M.predicted among non-blacks MDRD (S/P/Bld) [Vol rate/Area]41.9 mL/min/{1.73_m2}Low60 - PINFBon Secours Mercy HealthGlobulin (S) [Mass/Vol]1.8 g/dLLow2.3 - 3.5 g/dLBon Secours Mercy HealthGlucose [Mass/Vol]102 mg/yXNell01 - 99 mg/dLBon Secours Mercy HealthInterpretation and review of laboratory resultsAbnormalBon [facility]ours Mercy HealthPotassium [Moles/Vol]4.1 mmol/LBon Secours Mercy HealthProtein [Mass/Vol]4.6 g/dLLow6.3 - 8.0 g/dLBon [facility] Medical CenterSodium [Moles/Vol]144 mmol/LBon [facility]ena Regional Medical CenterUrea nitrogen [Mass/Vol]30 mg/dLHigh8 - 23 mg/dLBon Children's Care Hospital and SchoolHemoglobin and Hematocriton [phone] (Bld) [Volume fraction]24.5 %Low42.0-52.0[facility]aks HospitalComment on above:Performed By: #### PGLU #### [facility] [address] [facility] [address] Gjdlfewvfz (Bld) [Mass/Vol]8.3 g/dLLow14.0-18.0[facility]aks HospitalComment on above:Performed By: #### PGLU #### [facility] [address] [facility] [address] Xnjnhqaulgmwjv and review of laboratory resultsAbnoSt. Michael's HospitalHematocrit (Bld) [Volume fraction]20.2 % Critically low42.0 - 52.0 %[facility] HospitalHemoglobin (Bld) [Mass/Vol] 7.0 g/dLCritically low14.0 - 18.0 g/dLBon [facility] Regional Medical CenterInterpretation and review of laboratory resultsAbCobre Valley Regional Medical CenterHematocrit (Bld) [Volume fraction]20.2 % Critically low42.0-52.0[facility] CenterComment on above:Order Comment: CALL Zhu LCICL tel. [phone],h/h results called to and read back by liz bills, 04/12/2024 14:51, byCARDYPerformed By: #### PGLU #### [facility] [address] [facility] [address] Hatkrgkgdw (Bld) [Mass/Vol]7.0 g/dLCritically low14.0-18.0[facility] CenterComment on above:Order Comment: CALL Zhu LCICL tel. [phone],h/h results called to and read back by liz bills, 04/12/2024 14:51, byCARDYPerformed By: #### PGLU #### [facility] [address] [place] [address] Ixvqacgwpu (Bld) [Volume fraction]22.0 %Low42.0-52.0[facility] Mercy HealthComment on above:Performed By: #### TS3C #### [facility] [address] [place] [address] Caionartyh (Bld) [Mass/Vol]7.7 g/dLLow14.0-18.0Bon [facility] Mercy HealthComment on above:Performed By: #### TS3C #### [facility] [address] [place] [address] Dbwznarkocjbdv and review of laboratory resultsAbnormalBon Secours [facility] HealthBon Secours Mercy HealthHematocrit (Bld) [Volume fraction]22.0 %Low 42.0-52.0[facility] HealthComment on above:Performed By: #### PGLU #### [facility] [address] [place] [address] Hdzhokdcpg (Bld) [Mass/Vol]7.8 g/dLLow14.0-18.0[facility] HealthComment on above:Performed By: #### PGLU #### [facility] [address] [place] [address] Rptuytmiychahe and review of laboratory resultsAbnormalBon Secours Mercy HealthBon Secours Mercy HealthNo Panel Informationon [id number] Blood BankPlasma, 5 Day, ThawedBon Secours Mercy HealthDispense Status Blood BankreleasedBon Secours Mercy HealthDispense Status Blood BanktransfusedBon [facility]ours Mercy HealthProduct Code Blood [id number] [facility] Product Code Blood [id number] [facility] HealthPOCT Arterialon 94-95-1569Ccbj Excess, Cucmgtzv-7-3 - 3Bon [facility] HealthCalcium, Ionized 1.13 mmol/L1.12 - 1.32 mmol/LBon Secours Mercy HealthCO2 [Moles/Vol]26 mmol/L21 - 32 mmol/LBon [facility]ours Mercy HealthCreatinine [Mass/Vol]1.8 mg/dLHigh0.8 - 1.3 mg/dLBon Secours [facility] DicguoOTB55.000Bon [facility] HealthGFR/1.73 sq M.predicted among non-blacks MDRD (S/P/Bld) [Vol rate/Area]41 mL/min/{1.73_m2} Nuqfmieb79 - PINFBon Secours [facility] HealthGlucose [Mass/Vol]103 mg/hTXhhe71 - 99 mg/dlBon Secours [facility] HealthHCO3 (Bld) [Moles/Vol]24.9 mmol/L21.0 - 29.0 mmol/L Bon SecDoctors Hospitaly HealthHematocrit (Bld) [Volume fraction]21 %Low41 - 53 %[facility] HealthHemoglobin (Bld) [Mass/Vol]7.1 g/dLLowBon [facility] HealthInterpretation and review of laboratory resultsAbnormalBon [facility]ours [facility] HealthLactate [Moles/Vol]1.13 mmol/L0.40 - 2.00 mmol/LBon [facility] Health Oxygen saturation in Blood93 %93 - 100 %[facility] HealthpCO2, Maqvslzq67 HighBon Secours [facility] - [facility] HealthPerformed onSEE BELOWBon [facility] HealthpH, Arterial7.888Ihd5.350 - 7.450Bon [facility] Mercy HealthpO2, Kpefxyts92NdmBay Secours [facility] HealthPOC Nafqrrsz344UkpgBeo [facility] HealthPotassium [Moles/Vol]4.0 mmol/LBon Secours [facility] HealthSample TypeARTBon Secours Mercy HealthSodium [Moles/Vol]147 mmol/LHighBon [facility]ours Mercy HealthBon [facility] Mercy HealthChloride [Moles/Vol]112 mmol/LCritically mktb92-449LxtzlArkansas Valley Regional Medical CenterComment on above:Performed By: #### TS3C #### [facility] [address] [place] [address] FZ5 [Moles/Vol]26 mmol/CWvggie86-66IicjgArkansas Valley Regional Medical Center Comment on above:Performed By: #### TS3C #### [facility] [address] [place] [address] Obtyokkory [Mass/Vol]1.8 mg/dLCritically high0.8-1.3MSky Ridge Medical CenterComment on above:Performed By: #### TS3C #### [facility] [address] [place] [address] PSR24Pmavjpay>60[facility] CenterComment on above:Result Comment: Pediatric calculator link https://www.kidney.org/professionals/kdoqi/gfr_calculatorped Effective Feb [...] or following therapy that affects renal tubular secretion.Performed By: #### TS3C #### [facility] [address] [place] [address] Kjpjqey [Mass/Vol]103 mg/dLCritically aeot25-19ThzrdSky Ridge Medical CenterComment on above:Performed By: #### TS3C #### [facility] [address] [place] [address] LUN2 (Bld) [Moles/Vol]24.9 mmol/XWxsini30.0-29.0[facility] CenterComment on above:Performed By: #### TS3C #### [facility] [address] [place] [address] Wjinehkawc (Bld) [Volume fraction]21 %Jmp50-51DjgtyArkansas Valley Regional Medical CenterComment on above:Performed By: #### TS3C #### [facility] [address] [place] [address] Btnskehniy (Bld) [Mass/Vol]7.1 g/dLLow13.5-17.5Ar[facility] CenterComment on above:Performed By: #### TS3C #### [facility] [address] [place] [address] Odkggc saturation in Blood93 %Knnwld34-694ZhkdjArkansas Valley Regional Medical CenterComment on above:Performed By: #### TS3C #### [facility] [address] [place] [address] KIX Arterial Base Gpidfm-4Prddmk-0-3MSky Ridge Medical Center Comment on above:Performed By: #### TS3C #### [facility] [address] [place] [address] ZBO Arterial IAH394 mm HgCritically eybd76-18EqnbhArkansas Valley Regional Medical CenterComment on above:Performed By: #### TS3C #### [facility] [address] [place] [address] MRD Arterial pH7.542Mus0.350-7.45[facility] Comment on above:Performed By: #### TS3C #### [facility] [address] [place] [address] QFQ Arterial PO270 mm RyOzr62-433BvimcArkansas Valley Regional Medical Center Comment on above:Performed By: #### TS3C #### [facility] [address] [place] [address] ZQH Calciuim Ionized1.13 mmol/LNormal1.12-1.32[facility] CenterComment on above:Performed By: #### TS3C #### [facility] [address] [place] [address] DOR FIO23.000NormalArkansas Valley Regional Medical CenterComment on above: Performed By: #### TS3C #### [facility] [address] [place] [address] CVS Lactic Acid1.13 mmol/LNormal0.40-2.00Ar[facility] CenterComment on above:Performed By: #### TS3C #### [facility] [address] [place] [address] CDZ Performed onSEE BELOWValley View HospitalComment on above:Result Comment: Performed on POC Sample Type: Arterial Draw site: Art Line Jorge's test: N/A Oxygen Delivery System: CannulaPerformed By: #### TS3C #### [facility] [address] [place] [address] URT Sample TypeARTValley View HospitalComment on above:Performed By: #### TS3C #### [facility] [address] [place] [address] Xgpdfmaln [Moles/Vol]4.0 mmol/LNormal3.5-5.1MSky Ridge Medical CenterComment on above:Performed By: #### TS3C #### [facility] [address] [place] [address] Kieooz [Moles/Vol]147 mmol/LCritically nkwj575-263IuastArkansas Valley Regional Medical CenterComment on above:Performed By: #### TS3C #### [facility] [address] [place] [address] BOTJ Glucoseon 42-66-5684Kmwenig [Mass/Vol]116 mg/hJYghy32 - 99 mg/dlBon [facility] CenterInterpretation and review of laboratory results AbnormalBon [facility] Medical CenterPerformed onACCU-CHEKBon SecMarshfield Medical Center - Ladysmith Rusk CountyGlucose [Mass/Vol]116 mg/dLCritically jhzs52-43LvwlqSky Ridge Medical CenterComment on above:Performed By: #### TS3C #### [facility] [address] [place] [address] VOB Performed onACCU-CHEKNYuma District HospitalComment on above:Performed By: #### TS3C #### [facility] [address] [place] [address] Lkwchhb [Mass/Vol]133 mg/eHFdmm67 - 99 mg/dlBon [facility] Interpretation and review of laboratory resultsAbnormalBon [facility] Performed onACCU-CHEKBon SecDoctors Hospitallobo [facility] SecRapides Regional Medical Center HealthGlucose [Mass/Vol]133 mg/dLCritically yoew05-03QydnySky Ridge Medical CenterComment on above:Performed By: #### PGLU #### [facility] [address] [place] [address] REO Performed onACCU-CHEKNYuma District HospitalComment on above:Performed By: #### PGLU #### [facility] [address] [place] [address] OGPHLXJ PLASMA, 2 Unitson 44-33-8392Ijcij product unit ID (Dose) [#] [id number] Seckinza AkesoGenXy HealthBlood product unit ID (Dose) [#] [id number] [facility] HealthBlood product unit ID (Dose) [#] [id number] [facility] HealthBlood product unit ID (Dose) [#] [id number] [facility] HealthBlood product unit ID (Dose) [#] [id number] [facility] HealthBlood product unit ID (Dose) [#] [id number] [facility] HealthBlood product unit ID (Dose) [#] [id number] SecDoctors Hospitaly HealthDescription Blood BankPlasma, Apheresis, 5 Day, ThawedBon Seckinza AkesoGenXy HealthProduct Code Blood [id number] Secbayhealth emergency center, [place] AkesoGenXy HealthProduct Code Blood [id number] SecRapides Regional Medical Center HealthDignity [facility] SecDoctors Hospitaly HealthPathology studyon [phone] HOSPITAL LABBon SecRapides Regional Medical Center HealthAPTTon [id number] Coag (PPP) [Time]30.1 sBon SecDoctors Hospitaly HealthaPTT Coag (PPP) [Time]29.1 sBon SecDoctors HospitalStratopy HealthBasic Metabolic Panelon 89-91-7391Xpfti gap [Moles/Vol]6 mmol/LLow9-[facility] CenterComment on above:Performed By: #### PGLU #### [facility] [address] [place] [address] Fwqoztr [Mass/Vol]7.2 mg/dLLow8.5-9.9[facility] Comment on above:Performed By: #### PGLU #### [facility] [address] [place] [address] Qngxnlir [Moles/Vol]110 mmol/LCritically drkf97-044OselgArkansas Valley Regional Medical CenterComment on above:Performed By: #### PGLU #### [facility] [address] [place] [address] QX0 [Moles/Vol]25 mmol/VRgewnk72-55JvjgdArk[facility] Comment on above:Performed By: #### PGLU #### [facility] [address] [place] [address] Vdfwspbdnn [Mass/Vol]1.66 mg/dLCritically high0.70-1.20[facility] CenterComment on above:Performed By: #### PGLU #### [facility] [address] [place] [address] ERJ37.6Low>60[facility] CenterComment on above:Result Comment: Pediatric calculator link https://www.kidney.org/professionals/kdoqi/gfr_calculatorped Effective Feb [...] or following therapy that affects renal tubular secretion.Performed By: #### PGLU #### [facility] [address] [place] [address] Nehmvfr [Mass/Vol]102 mg/dLCritically satw76-87NiaefSky Ridge Medical CenterComment on above:Performed By: #### PGLU #### [facility] [address] [place] [address] Sbptdhhjc [Moles/Vol]4.0 mmol/LNormal3.4-4.9[facility] CenterComment on above:Performed By: #### PGLU #### [facility] [address] [place] [address] Yhxrhd [Moles/Vol]141 mmol/PHestqu660-405EakybArkansas Valley Regional Medical CenterComment on above:Performed By: #### PGLU #### [facility] [address] [place] [address] Zwjw nitrogen [Mass/Vol]27 mg/dLCritically high8-23Ar[facility] CenterComment on above:Performed By: #### PGLU #### [facility] [address] [place] [address] Kzgiw gap [Moles/Vol]10 mmol/LNormal9-15Ar[facility] CenterComment on above:Performed By: #### PGLU #### [facility] [address] [place] [address] Efarqxk [Mass/Vol]6.8 mg/dLLow8.5-9.9[facility] Comment on above:Performed By: #### PGLU #### [facility] [address] [place] [address] Mlesyccz [Moles/Vol]111 mmol/LCritically fesu43-307YxplpArkansas Valley Regional Medical CenterComment on above:Performed By: #### PGLU #### [facility] [address] [place] [address] HZ0 [Moles/Vol]18 mmol/SWck08-89VqyreArkansas Valley Regional Medical CenterComment on above:Performed By: #### PGLU #### [facility] [address] [place] [address] Sdfanxofzu [Mass/Vol]1.59 mg/dLCritically high0.70-1.20[facility] CenterComment on above:Performed By: #### PGLU #### [facility] [address] [place] [address] KYA18.0Low>60[facility] CenterComment on above:Result Comment: Pediatric calculator link https://www.kidney.org/professionals/kdoqi/gfr_calculatorped Effective Feb [...] or following therapy that affects renal tubular secretion.Performed By: #### PGLU #### [facility] [address] [place] [place] [address] Nahyqfc [Mass/Vol]185 mg/dLCritically wflv15-52WmyivSky Ridge Medical CenterComment on above:Performed By: #### PGLU #### [facility] [address] [place] [address] Wtujwnlsg [Moles/Vol]5.2 mmol/LCritically high3.4-4.9[facility] CenterComment on above:Performed By: #### PGLU #### [facility] [address] [place] [address] Xggbij [Moles/Vol]139 mmol/ANhoxss778-848EcpqyArkansas Valley Regional Medical CenterComment on above:Performed By: #### PGLU #### [facility] [address] [facility] [address] Rltl nitrogen [Mass/Vol]18 mg/dLNormal8-23Ar[facility] CenterComment on above:Performed By: #### PGLU #### [facility] [address] [facility] [address] Isrks metabolic 2000 panelon 36-77-4084Hwsuo gap [Moles/Vol]6 mmol/L LowBon Secours Mercy HealthCalcium [Mass/Vol]7.2 mg/dLLow8.5 - 9.9 mg/dLBon Secours Mercy HealthChloride [Moles/Vol]110 mmol/LHighBon [facility] Health CO2 [Moles/Vol]25 mmol/LBon [facility]ours Mercy HealthCreatinine [Mass/Vol]1.66 mg/dL High0.70 - 1.20 mg/dLBon Secours Mercy HealthGFR/1.73 sq M.predicted among non- blacks MDRD (S/P/Bld) [Vol rate/Area]45.6 mL/min/{1.73_m2}Low60 - PINFBon Secours Mercy HealthGlucose [Mass/Vol]102 mg/oDQoyk22 - 99 mg/dLBon Secours Mercy HealthInterpretation and review of laboratory resultsAbnormalBon [facility] HealthPotassium [Moles/Vol]4.0 mmol/LBon [facility]ours Mercy HealthSodium [Moles/Vol]141 mmol/LBon Secours Mercy HealthUrea nitrogen [Mass/Vol]27 mg/dL High8 - 23 mg/dLBon Secours Mercy HealthBon Secours Mercy HealthAnion gap [Moles/Vol]10 mmol/LBon [facility]ours Mercy HealthCalcium [Mass/Vol]6.8 mg/dLLow8.5 - 9.9 mg/dLBon Secours Mercy HealthChloride [Moles/Vol]111 mmol/LHighBon [facility] Mer[facility] HealthCO2 [Moles/Vol]18 mmol/LLowBon Secours Mercy HealthCreatinine [Mass/Vol]1.59 mg/dLHigh0.70 - 1.20 mg/dLBon Secours Mercy HealthGFR/1.73 sq M.predicted among non-blacks MDRD (S/P/Bld) [Vol rate/Area]48.0 mL/min/{1.73_m2} Low60 - PINFBon Secours Mercy HealthGlucose [Mass/Vol]185 mg/rPHerp71 - 99 mg/dL Bon [facility] HealthInterpretation and review of laboratory resultsAbnormal Bon [facility] HealthPotassium [Moles/Vol]5.2 mmol/LHighBon [facility]ours Mercy HealthSodium [Moles/Vol]139 mmol/LBon Secours Mercy HealthUrea nitrogen [Mass/Vol]18 mg/dL8 - 23 mg/dLBon Secours Mercy HealthCBC W Auto Differential panel (Bld)on [id number] and review of laboratory resultsAbnormal [facility] HospitalHC (RBC) [Mass/Vol]33.1 %33.0 - 37.0 %[facility] Hospitalented neutrophils/100 WBC (Bld)82.4 %[facility] HospitalBon [facility] With Platelet No Differentialon [id number] distribution width (RBC) [Ratio]15.9 %Critically high11.5-14.5Bon [facility] CenterComment on above:Performed By: #### TS3C #### [facility] [address] [facility] [address] Calbgvmxvr (Bld) [Volume fraction]25.9 %Low42.0-52.0Bon [facility] CenterComment on above:Performed By: #### TS3C #### [facility] [address] [place] [address] Hkbkfxfnni (Bld) [Mass/Vol]9.2 g/dLLow14.0-18.0Bon [facility] CenterComment on above:Performed By: #### TS3C #### [facility] [address] [place] [address] AZY (RBC) [Entitic mass]31.4 pgCritically high27.0-31.3Bon [facility] Medical CenterComment on above:Performed By: #### TS3C #### [facility] [address] [place] [address] ICYR51.5 %Scorax42.0-37.0[facility] CenterComment on above:Performed By: #### TS3C #### [facility] [address] [place] [address] ZON (RBC) [Entitic vol]88.4 rOMcvldj78.0-92.2Bon [facility] CenterComment on above:Performed By: #### TS3C #### [facility] [address] [place] [address] Misivetto (Bld) [#/Vol]116 10*3/iJGnq289-245Ezv [facility] Comment on above:Performed By: #### TS3C #### [facility] [address] [place] [address] ACK (Bld) [#/Vol]2.93 10*6/uLLow4.70-6.10Bon [facility] Comment on above:Performed By: #### TS3C #### [facility] [address] [place] [address] GRF (Bld) [#/Vol]13.2 10*3/uLCritically high4.8-10.8Bon [facility] CenterComment on above:Performed By: #### TS3C #### [facility] [address] [place] [address] Fgvdxmmtmvh distribution width (RBC) [Ratio]16.8 %Critically high 11.5-14.5[facility] CenterComment on above:Performed By: #### CBCND #### [facility] [address] [place] [address] Zmeugunrzr (Bld) [Volume fraction]25.7 %Low42.0-52.0[facility] CenterComment on above:Performed By: #### CBCND #### [facility] [address] [place] [address] Bxmwhenbwe (Bld) [Mass/Vol]8.5 g/dLLow14.0-18.0[facility] CenterComment on above:Performed By: #### CBCND #### [facility] [address] [place] [address] IZU (RBC) [Entitic mass]30.0 nlLmbtaq95.0-31.3MSky Ridge Medical CenterComment on above:Performed By: #### CBCND #### [facility] [address] [place] [address] CDYL78.1 %Ejoady20.0-37.0[facility] CenterComment on above:Performed By: #### CBCND #### [facility] [address] [place] [address] RCD (RBC) [Entitic vol]90.8 lRVutegd37.0-92.2MSky Ridge Medical CenterComment on above:Performed By: #### CBCND #### [facility] [address] [place] [address] Pbnjcxnxc (Bld) [#/Vol]125 10*3/yXEnt290-229NhtikArkansas Valley Regional Medical CenterComment on above:Performed By: #### CBCND #### [facility] [address] [place] [address] JDC (Bld) [#/Vol]2.83 10*6/uLLow4.70-6.10[facility] CenterComment on above:Performed By: #### CBCND #### [facility] [address] [place] [address] XBJ (Bld) [#/Vol]10.8 10*3/uLNormal4.8-10.8[facility] CenterComment on above:Performed By: #### CBCND #### [facility] [address] [facility] [address] Djhzivogzwp distribution width (RBC) [Ratio]17.1 %Critically high 11.5-14.5[facility] Medical CenterComment on above:Performed By: #### PGLU #### [facility] [address] [place] [address] Zkcmjemrfh (Bld) [Volume fraction]28.6 %Low42.0-52.0[facility] Medical CenterComment on above:Performed By: #### PGLU #### [facility] [address] [place] [address] Qqzhfbadni (Bld) [Mass/Vol]9.2 g/dLLow14.0-18.0[facility] Medical CenterComment on above:Performed By: #### PGLU #### [facility] [address] [place] [address] EHI (RBC) [Entitic mass]31.0 anAzafma86.0-31.3Bon SecMercy Health Urbana HospitalComment on above:Performed By: #### PGLU #### [facility] [address] [place] [address] QNYA20.2 %Low33.0-37.0[facility] CenterComment on above: Performed By: #### PGLU #### [facility] [address] [facility] [address] LDD (RBC) [Entitic vol]96.3 fLCritically high79.0-92.2Bon SecMercy Health Urbana HospitalComment on above:Performed By: #### PGLU #### [address] [place] [address] Xyuvsfuqa (Bld) [#/Vol]182 10*3/xCDmdcvr886-276Vkp SecMercy Health Urbana HospitalComment on above:Performed By: #### PGLU #### [facility] [address] [facility] [address] YUX (Bld) [#/Vol]2.97 10*6/uLLow4.70-6.10[facility] Comment on above:Performed By: #### PGLU #### [facility] [address] [facility] [address] TGB (Bld) [#/Vol]14.0 10*3/uLCritically high4.8-10.8Bon SecMercy Health Urbana HospitalComment on above:Performed By: #### PGLU #### [facility] [address] [facility] [address] HAD With Platelet and Differentialon 69-45-9574Tztihbrnt (Bld) [#/Vol]0.0 10*3/uLNormal0.0-0.2[facility] Medical CenterComment on above: Performed By: #### PGLU #### [facility] [address] [address] Coyaacxvw/100 WBC (Bld)0.1 %NormalBon [facility] Hospital HealthComment on above:Performed By: #### PGLU #### [facility] [address] [address] Rdszphzrkdy (Bld) [#/Vol]0.0 10*3/uLNormal0.0-0.7[facility] HealthComment on above:Performed By: #### PGLU #### [facility] [address] [place] [address] Ctoaycrnsvn/100 WBC (Bld)0.0 %NormalBon [facility]ours [facility] Hospital HealthComment on above:Performed By: #### PGLU #### [facility] [address] [place] [address] Qrcuifhvhbe distribution width (RBC) [Ratio]14.6 %Critically high 11.5-14.5[facility] HealthComment on above:Performed By: #### PGLU #### [facility] [address] [place] [address] Jhfdivmize (Bld) [Volume fraction]28.4 %Low42.0-52.0[facility] HealthComment on above:Performed By: #### PGLU #### [facility] [address] [place] [address] Uwhyekavhv (Bld) [Mass/Vol]9.4 g/dLLow14.0-18.0[facility] HealthComment on above:Performed By: #### PGLU #### [facility] [address] [address] Smzrxqiaqmh (Bld) [#/Vol]1.3 10*3/uLNormal1.0-4.8[facility] HealthComment on above:Performed By: #### PGLU #### [facility] [address] [address] Dhxmadbenti/100 WBC (Bld)8.7 %NormalBon [facility] Medical CenterComment on above:Performed By: #### PGLU #### [facility] [address] [place] [address] UCD (RBC) [Entitic mass]33.1 pgCritically high27.0-31.3[facility] Medical CenterComment on above:Performed By: #### PGLU #### [facility] [address] [place] [address] BXWZ64.1 %Gevdsl06.0-37.0[facility] CenterComment on above:Performed By: #### PGLU #### [facility] [address] [facility] [address] SFO (RBC) [Entitic vol]100.0 fLCritically high79.0-92.2[facility] Medical CenterComment on above:Performed By: #### PGLU #### [facility] [address] [facility] [address] Ckelzurhv (Bld) [#/Vol]1.2 10*3/uLCritically high0.2-0.8[facility] Medical CenterComment on above:Performed By: #### PGLU #### [facility] [address] [facility] [address] Qldmixvwx/100 WBC (Bld)8.2 %NormalBon [facility]ours [facility] Heights Medical CenterComment on above:Performed By: #### PGLU #### [facility] [address] [facility] [address] Mozedhjbysj (Bld) [#/Vol]12.2 10*3/uLCritically high1.4-6.5[facility] Medical CenterComment on above:Performed By: #### PGLU #### [facility] [address] [facility] [address] Bgdnjfjhsck/100 WBC (Bld)82.4 %[facility] Comment on above:Performed By: #### PGLU #### [facility] [address] [address] Bahqrfppg (Bld) [#/Vol]242 10*3/bSXeehiy444-184Dii [facility] CenterComment on above:Performed By: #### PGLU #### [facility] [address] [place] [address] SMX (Bld) [#/Vol]2.84 10*6/uLLow4.70-6.10Bon [facility] Comment on above:Performed By: #### PGLU #### [facility] [address] [place] [address] NPV (Bld) [#/Vol]14.8 10*3/uLCritically high4.8-10.8Bon [facility] CenterComment on above:Performed By: #### PGLU #### [facility] [address] [place] [address] VPM panel Auto (Bld)on 03-27-5263Rujffmfcjtlhkm and review of laboratory resultsAbnormCarilion Roanoke Memorial HospitalHC (RBC) [Mass/Vol]35.5 % 33.0 - 37.0 %[facility] CampusErythrocyte distribution width (RBC) [Ratio]16.8 %High11.5 - 14.5 %[facility] Hematocrit (Bld) [Volume fraction]25.7 %Low42.0 - 52.0 %[facility] Hemoglobin (Bld) [Mass/Vol]8.5 g/dLLow14.0 - 18.0 g/dLBon [facility] Interpretation and review of laboratory resultsAbnormPioneer Community Hospital of Patrick MCH (RBC) [Entitic mass]30.0 pg27.0 - 31.3 pgInova Fair Oaks HospitalHC (RBC) [Mass/Vol]33.1 %33.0 - 37.0 %[facility]aks HospitalV (RBC) [Entitic vol]90.8 fL79.0 - 92.2 fLBon Secours Mercy HealthPlatelets (Bld) [#/Vol]125 10*3/xWIef935 - 400 K/uLBon [facility] HealthRBC (Bld) [#/Vol]2.83 10*6/uLLowBon [facility] Medical CenterWBC (Bld) [#/Vol]10.8 10*3/uL4.8 - 10.8 K/uLBon [facility] Memorial HospitalInterpretation and review of laboratory resultsAbnormal [facility] HospitalMCHC (RBC) [Mass/Vol]32.2 %Low33.0 - 37.0 %[facility] CampusComprehensive Metabolic Panel reflex Mgon 83-18-7153Mlumccw [Mass/Vol]3.4 g/dLLow3.5-4.6MS[facility] Comment on above:Performed By: #### CBCND #### [facility] [address] [place] [address] DZN [Catalytic activity/Vol]73 U/DNlcgzw26-183UumeeArkansas Valley Regional Medical CenterComment on above:Performed By: #### CBCND #### [facility] [address] [place] [address] BJN [Catalytic activity/Vol]10 U/LNormal0-41[facility] CenterComment on above:Performed By: #### CBCND #### [facility] [address] [place] [address] Vxlxq gap [Moles/Vol]10 mmol/LNormal9-15[facility] CenterComment on above:Performed By: #### CBCND #### [facility] [address] [place] [address] EFD [Catalytic activity/Vol]13 U/LNormal0-40[facility] CenterComment on above:Performed By: #### CBCND #### [facility] [address] [place] [address] Bbpgdzrly [Mass/Vol]0.9 mg/dLCritically high0.2-0.7[facility] CenterComment on above:Performed By: #### CBCND #### [facility] [address] [place] [address] Hsubzyz [Mass/Vol]7.6 mg/dLLow8.5-9.9[facility] Comment on above:Performed By: #### CBCND #### [facility] [address] [place] [place] [address] Tbowegug [Moles/Vol]105 mmol/JVptlez74-785IhpauArkansas Valley Regional Medical CenterComment on above:Performed By: #### CBCND #### [facility] [address] [place] [address] WF9 [Moles/Vol]21 mmol/QDstguy26-97YbgohArkansas Valley Regional [facility] Comment on above:Performed By: #### CBCND #### [facility] [address] [place] [address] Qpjfifenaa [Mass/Vol]1.50 mg/dLCritically high0.70-1.20[facility] CenterComment on above:Performed By: #### CBCND #### [facility] [address] [place] [address] WLG35.5Low>60Ar[facility] CenterComment on above:Result Comment: Pediatric calculator link https://www.kidney.org/professionals/kdoqi/gfr_calculatorped Effective Feb [...] or following therapy that affects renal tubular secretion.Performed By: #### CBCND #### [facility] [address] [place] [address] Ujauvxor (S) [Mass/Vol]1.8 g/dLLow2.3-3.5[facility] CenterComment on above:Performed By: #### CBCND #### [facility] [address] [place] [address] Zkakcox [Mass/Vol]216 mg/dLCritically jwlj27-23YldzsSky Ridge Medical CenterComment on above:Performed By: #### CBCND #### [facility] [address] [place] [address] Pktlvnpwf [Moles/Vol]4.6 mmol/LNormal3.4-4.9[facility] CenterComment on above:Performed By: #### CBCND #### [facility] [address] [place] [place] [address] Lznhchj [Mass/Vol]5.2 g/dLLow6.3-8.0[facility] Comment on above:Performed By: #### CBCND #### [facility] [address] [place] [address] Uyijkj [Moles/Vol]136 mmol/LCtykth098-024JxqrlArkansas Valley Regional Medical CenterComment on above:Performed By: #### CBCND #### [facility] [address] [place] [address] Ccxx nitrogen [Mass/Vol]17 mg/dLNormal8-23Ar[facility] CenterComment on above:Performed By: #### CBCND #### [facility] [address] [place] [address] Ghbpbfuynrbgd metabolic 2000 panelon 67-29-5182Afhhope [Mass/Vol]3.4 g/dLLow3.5 - 4.6 g/dLBon [facility] HealthALP [Catalytic activity/Vol]73 U/L 35 - 104 U/LBon [facility] HealthALT [Catalytic activity/Vol]10 U/L0 - 41 U/L Bon SecMercy Health Urbana HospitalAnion gap [Moles/Vol]10 mmol/LBon [facility] AST [Catalytic activity/Vol]13 U/L0 - 40 U/LBon [facility] CenterBilirubin [Mass/Vol]0.9 mg/dLHigh0.2 - 0.7 mg/dLBon [facility] HealthCalcium [Mass/Vol] 7.6 mg/dLLow8.5 - 9.9 mg/dLBon Secours Mercy HealthChloride [Moles/Vol]105 mmol/LBon Secours Mercy HealthCO2 [Moles/Vol]21 mmol/LBon [facility] Creatinine [Mass/Vol]1.50 mg/dLHigh0.70 - 1.20 mg/dLBon [facility]ours [facility] GFR/1.73 sq M.predicted among non-blacks MDRD (S/P/Bld) [Vol rate/Area]51.5 mL/min/{1.73_m2}Low60 - PINFBon Secours Mercy HealthGlobulin (S) [Mass/Vol]1.8 g/dLLow2.3 - 3.5 g/dLBon Secours Mercy HealthGlucose [Mass/Vol]216 mg/fIVxvh83 - 99 mg/dLBon Secours Mercy HealthPotassium [Moles/Vol]4.6 mmol/LBon Secours Mercy HealthProtein [Mass/Vol]5.2 g/dLLow6.3 - 8.0 g/dLBon [facility]ours [facility] Sodium [Moles/Vol]136 mmol/LBon Secours Mercy HealthUrea nitrogen [Mass/Vol]17 mg/dL8 - 23 mg/dLBon Secours AkesoGenXy HealthEKG Rhythm Stripon 05-00-0283ABCYDMadison HealthStratopy Regency Hospital CompanyFresh Frozen Plasmaon 64-58-4188Chnmx Frozen PlasmaPATIENT: NETTE Burdick LOC: [facility],01,01 BILL# : [id number] : 1960 SEX: M ORDERED BY: TAL HAMM ORDERED : 04/11/2024 03:11 COLLECTED: 04/11/2024 02:26 ORDER : [id number] RECEIVED : 04/11/2024 02:37 TEST NAME RESULT UNITS RANGES ABN FL ST Fresh Frozen Plasma E5549 FP Thaw 5D W1 F = Fresh Frozen Plasma E5549 FP Thaw 5D W1 F = Fresh Frozen Plasma E5548 FP Thaw 5D W1 F = Fresh Frozen Plasma E2121 FP thaw 5D W1 F = Fresh Frozen Plasma E5549 FP Thaw 5D W1 F = Fresh Frozen Plasma E5548 FP Thaw 5D W1 F = Fresh Frozen Plasma E2701 FP thaw 5D W1 F = [facility] HospitalComment on above:Performed By: #### PGLU #### [facility] [address] [place] [address] Bmaeszoogc A1Con 52-30-2211Jdgcbfs [Mass/Vol]123 mg/dLNoInova Children's Hospital on above:Result Comment: The ADA and AACC recommend providing the estimated average glucose result to permit better patient understanding of their HBA1c result. Performed at [facility], [address] [place], [place] [address] .HbA1c (Bld) [Mass fraction]5.9 %Normal4.0-6.0[facility] HospitalHemoglobin and Hematocriton 49-85-1932Wygqaozgqi (Bld) [Volume fraction] 22.5 %Low42.0-52.0Bon [facility] on above:Performed By: #### TS3C #### [facility] [address] [address] Vhcsuwvoyz (Bld) [Mass/Vol]7.9 g/dLLow14.0-18.0Bon [facility] on above:Performed By: #### TS3C #### [facility] [address] [place] [address] [phone] and review of laboratory resultsAbnormPoplar Springs HospitalHepatic Function Panelon 75-02-5165Nrldvjs [Mass/Vol]2.8 g/dLLow3.5 - 4.6 g/dLBon [facility] CenterALP [Catalytic activity/Vol]62 U/L35 - 104 U/LBon [facility] CenterALT [Catalytic activity/Vol]11 U/L0 - 41 U/LBon [facility] HealthAST [Catalytic activity/Vol]16 U/L0 - 40 U/LBon [facility] HealthBilirubin [Mass/Vol]0.9 mg/dLHigh0.2 - 0.7 mg/dLBon [facility] CenterBilirubin.direct [Mass/Vol]0.3 mg/dL0.0 - 0.4 mg/dLBon [facility] CenterBilirubin.indirect [Mass/Vol]0.6 mg/dL0.0 - 0.6 mg/dLBon [facility] CenterProtein [Mass/Vol]4.6 g/dLLow6.3 - 8.0 g/dLBon [facility] CenterHigh Sensitivity Troponin Ton 98-94-0483Tfex Sensitivity Troponin T10 ng/LNormal0-19[facility] CenterComment on above:Result Comment: High Sensitivity Troponin values cannot be compared with other Troponin methodologies.Performed By: #### PGLU #### [facility] [address] [facility] [facility] [address] KHR [Catalytic activity/Vol]on 61-06-0602Ieh [facility] Lactate (BldV) [Moles/Vol]on 76-04-5400ERGTRCHERRINGTON HOSPITAL LAB Interpretation and review of laboratory resultsAbnormalBon [facility] LABBon [facility] Medical CenterLactate Dehydrogenaseon 64-37-5236KIS [Catalytic activity/Vol]156 U/L135 - 225 U/LBon [facility] Medical CenterLDH [Catalytic activity/Vol]156 U/UZfetot589-794GahotArkansas Valley Regional Medical CenterComment on above:Performed By: #### PGLU #### [facility] [address] [place] [address] Wqlkzjc, Sepsison 53-84-7965Ewpockzjbryhwj and review of laboratory resultsAbnormalInova Fair Oaks HospitalLactic Acid, Sepsis5.1 mmol/LCritically high0.5 - 1.9 mmol/LBon [facility] LABInova Fair Oaks HospitalLactate, Sepsis5.1 mmol/LCritically high0.5-1.9[facility] CenterComment on above:Order Comment: CALL Zhu LCICL tel. [phone],lacid results called to and read back by frieda sanchez, 04/11/2024 07:15, byCARDYPerformed By: #### PGLU #### [facility] [address] [facility] [address] Axlads Acidon 46-53-2418Ypppvox (BldV) [Moles/Vol]3.9 mmol/L Critically high0.5 - 2.2 mmol/LBon [facility] Medical CenterLactate [Moles/Vol]3.9 mmol/LCritically high0.5-2.2MSky Ridge Medical CenterComment on above:Order Comment: Collection has been rescheduled by DEBBI at 04/18/2024 02:16 Reason: Patient has port or linePerformed By: #### RENAL #### [facility] [address] [place] [address] Zcfbkcx (BldV) [Moles/Vol]3.4 mmol/LCritically high0.5 - 2.2 mmol/L Bon [facility] CenterLactate [Moles/Vol]3.4 mmol/LCritically high0.5-2.2MSky Ridge Medical CenterComment on above:Order Comment: CALL Zhu LCICL tel. [phone], LACID results called to and read back by Ruchi PARADA NP, 04/11/2024 03:02, by WEBAMPerformed By: #### LACID #### [facility] [address] [facility] [place] [id number] [phone] Panelon 26-09-0639Xrfziud [Mass/Vol]2.8 g/dLLow3.5-4.6MSky Ridge Medical CenterComment on above:Performed By: #### PGLU #### [facility] [address] [place] [address] UYN [Catalytic activity/Vol]62 U/GXdrbrp45-326CfwfpArkansas Valley Regional Medical CenterComment on above:Performed By: #### PGLU #### [facility] [address] [place] [address] BJZ [Catalytic activity/Vol]11 U/LNormal0-41Ar[facility] CenterComment on above:Performed By: #### PGLU #### [facility] [address] [place] [address] CEJ [Catalytic activity/Vol]16 U/LNormal0-40[facility] CenterComment on above:Performed By: #### PGLU #### [facility] [address] [place] [address] Usblesfsn [Mass/Vol]0.9 mg/dLCritically high0.2-0.7Ar[facility] CenterComment on above:Performed By: #### PGLU #### [facility] [address] [place] [address] Sjxptkneg Indirect0.6 mg/dLNormal0.0-0.6MSky Ridge Medical CenterComment on above:Performed By: #### PGLU #### [facility] [address] [place] [address] Hsipuupqj.indirect [Mass/Vol]0.3 mg/dLNormal0.0-0.4Ar[facility] CenterComment on above:Performed By: #### PGLU #### [facility] [address] [place] [address] Iavhrbm [Mass/Vol]4.6 g/dLLow6.3-8.0[facility] Comment on above:Performed By: #### PGLU #### [facility] [address] [place] [place] [address] Zabnzcazzmo 28-17-7192Skxvsbbiy [Mass/Vol]1.6 mg/dLLow1.7 - 2.4 mg/dLBon [facility] CenterMagnesium [Mass/Vol]1.6 mg/dLLow1.7-2.4Ar[facility] CenterComment on above:Performed By: #### RENAL #### [facility] [address] [place] [address] Ds Panel Informationon 68-68-5707Rzp [facility] Interpretation and review of laboratory resultsAbnormalInova Fair [facility]aks Hospital Bon [facility] SchoolInterpretation and review of laboratory resultsAbnoSt. Michael's Hospital OPERATIVE REPORTon [id number] REPORTMOUNT ST. [facility] [address] [place] [address] OPERATIVE REPORT PATIENT NAME:JASMEET PERDUE :1960 MED REC NO:[id number] ROOM:[facility] ACCOUNT NO:[id number] ADMIT DATE:04/10/2024 PROVIDER:Beltran Hall MD DATE OF PROCEDURE: 04/11/2024 SURGEON: Beltran Hall MD RESOURCE ROOM TEACHER: Ms. Olvera. PREOPERATIVE DIAGNOSIS: Hemorrhagic shock following [...] His abdomen was quickly prepped with a Betadine-containingsolution. He received Zosyn preoperatively. A time-out was taken quickly for verification. Janice were all removed. The fascia was opened quickly. There was a large amount of clot that was mostly in the left upper quadrant. About 2000 to 2500 mL of old blood clot were quickly removed. Theleft upper quadrant was packed, and resuscitative efforts [...] the pelvis was clear of any bleeding. Drainwas in place in that area. The small bowel, which was pale at first, became viable and pink upon continued resuscitation. Irrigation was performed in the pelvis. The left upper quadrant was dry. Surgicel powder was placed, and an additional COLTON drain was placed in the left upper [...] Discussed with the intensive care physician. BELTRAN HALL MD [facility]/AQS Doc#: [id number] Community District HospitalPOCT Arterialon 20-61-6673Gtbc Excess, Npmqhxbm-1-3 - 3[facility] HealthCalcium, Ionized 1.11 mmol/LLow1.12 - 1.32 mmol/LBon Secours Mercy HealthCO2 [Moles/Vol]25 mmol/L 21 - 32 mmol/LBon [facility]ours Mercy HealthCreatinine [Mass/Vol]1.7 mg/dLHigh0.8 - 1.3 mg/dLBon [facility]ours [facility] AegswuMLX635.000[facility] HealthGFR/1.73 sq M.predicted among non-blacks MDRD (S/P/Bld) [Vol rate/Area]44 mL/min/{1.73_m2} Hqojvsgm82 - PINFBon Secours Mercy HealthGlucose [Mass/Vol]108 mg/vJPhbe14 - 99 mg/dlBon Secours [facility] HealthHCO3 (Bld) [Moles/Vol]23.3 mmol/L21.0 - 29.0 mmol/L [facility] SecRapides Regional Medical Center HealthHematocrit (Bld) [Volume fraction]20 %Critically low41 - 53 %[facility] HealthHemoglobin (Bld) [Mass/Vol]6.9 g/dLCritically lowBon Secours [facility] Anders[facility] HealthInterpretation and review of laboratory resultsAbnormalBon [facility]ours Mercy HealthLactate [Moles/Vol]0.98 mmol/L0.40 - 2.00 mmol/LBon Secours [facility] HealthOxygen saturation in Blood98 %93 - 100 %[facility] pCO2, Osdvpbhk86Mto [facility] HealthPerformed onSEE BELOWBon [facility]ours [facility] HealthpH, Arterial7.146Jff0.350 - 7.450[facility] HealthpO2, Wbecurhs266 [facility] HealthPOC Abbkcodl008Hjo [facility] HealthPotassium [Moles/Vol]4.0 mmol/LBon Secours Mercy HealthSample TypeARTBon [facility] HealthSodium [Moles/Vol]147 mmol/LHighBon [facility]ours [facility] HealthBon [facility] HealthChloride [Moles/Vol]110 mmol/TVkmthx12-073AbnhoArkansas [facility] Center Comment on above:Performed By: #### TS3C #### [facility] [address] [place] [address] BN6 [Moles/Vol]25 mmol/WZsabqv65-50OmaypArkansas Valley Regional Medical Center Comment on above:Performed By: #### TS3C #### [facility] [address] [place] [address] Psyvsdlglt [Mass/Vol]1.7 mg/dLCritically high0.8-1.3MSky Ridge Medical CenterComment on above:Performed By: #### TS3C #### [facility] [address] [place] [place] [address] NXW32Kvemccoh>60[facility] Medical CenterComment on above:Result Comment: Pediatric calculator link https://www.kidney.org/professionals/kdoqi/gfr_calculatorped Effective Feb [...] or following therapy that affects renal tubular secretion.Performed By: #### TS3C #### [facility] [address] [place] [address] Cuonrad [Mass/Vol]108 mg/dLCritically ucil43-39GhcybSky Ridge Medical CenterComment on above:Performed By: #### TS3C #### [facility] [address] [place] [address] LSC5 (Bld) [Moles/Vol]23.3 mmol/CZmekuy67.0-29.0Ar[facility] Medical CenterComment on above:Performed By: #### TS3C #### [facility] [address] [place] [address] Gybnacvvkt (Bld) [Volume fraction]20 %Critically rob66-57OagvoArkansas Valley Regional Medical CenterComment on above:Performed By: #### TS3C #### [facility] [address] [place] [address] Ocjewvnilg (Bld) [Mass/Vol]6.9 g/dLCritically low13.5-17.5Ar[facility] CenterComment on above:Performed By: #### TS3C #### [facility] [address] [place] [address] Xxqtee saturation in Blood98 %Cpfrpn72-066IkkmeArkansas Valley Regional Medical CenterComment on above:Performed By: #### TS3C #### [facility] [address] [place] [address] WRJ Arterial Base Acpaba-7Ebpmal-1-3MSky Ridge Medical Center Comment on above:Performed By: #### TS3C #### [facility] [address] [place] [address] UCP Arterial GDB570 mm AxUppoou82-05SexsnArkansas Valley [facility] Center Comment on above:Performed By: #### TS3C #### [facility] [address] [place] [address] GFM Arterial pH7.888Diz0.350-7.45[facility] Comment on above:Performed By: #### TS3C #### [facility] [address] [place] [address] HMQ Arterial GP0142 mm UbSempjb76-418RhyyqArkansas Valley Regional Medical Center Comment on above:Performed By: #### TS3C #### [facility] [address] [place] [address] EKF Calciuim Ionized1.11 mmol/LLow1.12-1.32Ar[facility] Medical CenterComment on above:Performed By: #### TS3C #### [facility] [address] [place] [address] VMH WUB102.000NormalArkansas Valley Regional Medical CenterComment on above: Performed By: #### TS3C #### [facility] [address] [place] [address] BBC Lactic Acid0.98 mmol/LNormal0.40-2.00Ar[facility] Medical CenterComment on above:Performed By: #### TS3C #### [facility] [address] [place] [place] [address] GMR Performed onSEE BELOWValley View HospitalComment on above:Result Comment: Performed on POC Sample Type: Arterial Draw site: Art Line Jorge's test: N/A Oxygen Delivery System: Adult Vent Ventilator Mode: CPAP/PS PEEP: 5 Pressure Support (PS): 5Performed By: #### TS3C #### [facility] [address] [place] [address] HFY Sample TypeARTValley View HospitalComment on above:Performed By: #### TS3C #### [facility] [address] [place] [address] Nmkmgstho [Moles/Vol]4.0 mmol/LNormal3.5-5.1MSky Ridge Medical CenterComment on above:Performed By: #### TS3C #### [facility] [address] [place] [address] Craajk [Moles/Vol]147 mmol/LCritically lcpz428-244FjyiaArkansas Valley Regional Medical CenterComment on above:Performed By: #### TS3C #### [facility] [address] [place] [address] Kuwt Excess, Irlzixzi-8Phy-3 - 3[facility] EverpurseCalcium, Ionized1.07 mmol/LLow1.12 - 1.32 mmol/LBon SecSharetribeCO2 [Moles/Vol]21 mmol/L21 - 32 mmol/LBon Secours EverpurseCreatinine [Mass/Vol]1.8 mg/dLHigh 0.8 - 1.3 mg/dLBon SecSharetribeFIO250.000[facility] GFR/1.73 sq M.predicted among non-blacks MDRD (S/P/Bld) [Vol rate/Area]41 mL/min/{1.73_m2}Wtlgdwar27 - PINFBon Secours Mercy HealthGlucose [Mass/Vol]118 mg/wQPiow44 - 99 mg/dlBon Secours [facility] HealthHCO3 (Bld) [Moles/Vol]20.2 mmol/L Low21.0 - 29.0 mmol/LBon Secours Mercy HealthHematocrit (Bld) [Volume fraction] 24 %Low41 - 53 %Bon SecDoctors Hospitaly HealthHemoglobin (Bld) [Mass/Vol]8.0 g/dLLow Bon [facility] Hospitaly HealthInterpretation and review of laboratory resultsAbnormal [facility] HealthLactate [Moles/Vol]3.05 mmol/LHigh0.40 - 2.00 mmol/LBon Secours Mercy HealthOxygen saturation in Blood99 %93 - 100 %[facility] HealthpCO2, Lmurrmpq10Btp [facility] HealthPerformed onSEE BELOWBon [facility]ours [facility] HealthpH, Arterial7.950Dxl7.350 - 7.450Bon [facility] HealthpO2, Ijhrwhif106ApsmMty [facility] HealthPOC Rlssbeod711VlfjTzj [facility] HealthPotassium [Moles/Vol]4.4 mmol/LBon Secours [facility] HealthSample TypeARTBon [facility] HealthSodium [Moles/Vol]147 mmol/LHighBon [facility] HealthBon [facility] HealthChloride [Moles/Vol]111 mmol/LCritically isdq97-197RqseyArkansas Valley Regional Medical CenterComment on above:Performed By: #### PGLU #### [facility] [address] [place] [address] LH0 [Moles/Vol]21 mmol/FIexxrr40-47FtchkArkansas Valley Regional Medical Center Comment on above:Performed By: #### PGLU #### [facility] [address] [place] [address] Udxadybtro [Mass/Vol]1.8 mg/dLCritically high0.8-1.3MSky Ridge Medical CenterComment on above:Performed By: #### PGLU #### [facility] [address] [place] [place] [address] ADM98Qffkluks>60Ar[facility] CenterComment on above:Result Comment: Pediatric calculator link https://www.kidney.org/professionals/kdoqi/gfr_calculatorped Effective Feb [...] or following therapy that affects renal tubular secretion.Performed By: #### PGLU #### [facility] [address] [place] [address] Iljlejp [Mass/Vol]118 mg/dLCritically knzs09-82UsgehSky Ridge Medical CenterComment on above:Performed By: #### PGLU #### [facility] [address] [place] [address] OHW0 (Bld) [Moles/Vol]20.2 mmol/LLow21.0-29.0Ar[facility] CenterComment on above:Performed By: #### PGLU #### [facility] [address] [place] [address] Gstghgcldf (Bld) [Volume fraction]24 %Cxr89-17KniegArkansas Valley Regional Medical CenterComment on above:Performed By: #### PGLU #### [facility] [address] [place] [address] Ecawufwezz (Bld) [Mass/Vol]8.0 g/dLLow13.5-17.5Ar[facility] CenterComment on above:Performed By: #### PGLU #### [facility] [address] [place] [address] Jnixdt saturation in Blood99 %Illhgh33-148BllgvArkansas Valley Regional Medical CenterComment on above:Performed By: #### PGLU #### [facility] [address] [place] [address] TGJ Arterial Base Bbzrtr-2Vva-5-3MSky Ridge Medical Center Comment on above:Performed By: #### PGLU #### [facility] [address] [place] [address] JSV Arterial KRB634 mm UjVgaeot62-12EmjybArkansas Valley Regional Medical Center Comment on above:Performed By: #### PGLU #### [facility] [address] [place] [address] GDD Arterial pH7.728Bhf0.350-7.45[facility] Comment on above:Performed By: #### PGLU #### [facility] [address] [place] [address] SPV Arterial RE4430 mm HgCritically lwsr12-225YtryvArkansas Valley Regional Medical CenterComment on above:Performed By: #### PGLU #### [facility] [address] [address] LBE Calciuim Ionized1.07 mmol/LLow1.12-1.32Ar[facility] CenterComment on above:Performed By: #### PGLU #### [facility] [address] [address] SZC WQC504.000NoWray Community District HospitalComment on above: Performed By: #### PGLU #### [facility] [address] [address] AEH Lactic Acid3.05 mmol/LCritically high0.40-2.00Ar[facility] CenterComment on above:Performed By: #### PGLU #### [facility] [address] [place] [address] RZC Performed onSEE BELOWValley View HospitalComment on above:Result Comment: Performed on POC Sample Type: Arterial Draw site: Art Line Jorge's test: N/A Oxygen Delivery System: Adult Vent Ventilator Mode: AC Tidal volume (Vt): 440 Respiratory Rate (RR): 28 PEEP: 5Performed By: #### PGLU #### [facility] [address] [place] [address] QIL Sample TypeARTNormalMercy Regional Medical CenterComment on above:Performed By: #### PGLU #### [facility] [address] [place] [address] Pwclpiaei [Moles/Vol]4.4 mmol/LNormal3.5-5.1MSky Ridge Medical CenterComment on above:Performed By: #### PGLU #### [facility] [address] [place] [address] Egkhjb [Moles/Vol]147 mmol/LCritically ibpw396-105NogdyArkansas Valley Regional Medical CenterComment on above:Performed By: #### PGLU #### [facility] [address] [place] [address] Xoqz Excess, Jssvcwax-09Cfq-4 - 3[facility] AkesoGenXy HealthCalcium, Ionized1.16 mmol/L1.12 - 1.32 mmol/LBon Secours MOGL HealthCO2 [Moles/Vol]19 mmol/LLow21 - 32 mmol/LBon Secours AkesoGenXy HealthCreatinine [Mass/Vol]1.7 mg/dL High0.8 - 1.3 mg/dLBon Secours MOGL BsidaaLYI0827.000[facility] GFR/1.73 sq M.predicted among non-blacks MDRD (S/P/Bld) [Vol rate/Area]44 mL/min/{1.73_m2}Jmwlmqtd36 - PINFBon Secours Mercy HealthGlucose [Mass/Vol]125 mg/dLNleh10 - 99 mg/dlBon Secours MOGL HealthHCO3 (Bld) [Moles/Vol]17.8 mmol/L Low21.0 - 29.0 mmol/LBon Secours Mercy HealthHematocrit (Bld) [Volume fraction] 27 %Low41 - 53 %[facility] AkesoGenXy HealthHemoglobin (Bld) [Mass/Vol]9.3 g/dLLow [facility] AkesoGenXy HealthInterpretation and review of laboratory resultsAbnormal [facility] AkesoGenXy HealthLactate [Moles/Vol]3.87 mmol/LHigh0.40 - 2.00 mmol/LBon Secours Mercy HealthOxygen saturation in Ntxtd409 %93 - 100 %[facility] HealthpCO2, Ddzzwdlr16OtqmOic [facility] HealthPerformed onSEE BELOWBon [facility]ours [facility] Andersonlobo HealthpH, Arterial7.156Critically low7.350 - 7.450Bon [facility] HealthpO2, Ofkqgcde235FluzWji [facility] HealthPOC Wqfebgwt939ZxdjUxb [facility] HealthPotassium [Moles/Vol]5.0 mmol/LBon [facility]ours [facility] Health Sample TypeARTBon [facility] HealthSodium [Moles/Vol]145 mmol/LBon [facility]ours [facility] HealthBon [facility] HealthChloride [Moles/Vol]111 mmol/LCritically gtpk42-092IdgqvArkansas Valley Regional Medical CenterComment on above:Performed By: #### PGLU #### [facility] [address] [place] [place] [address] PE8 [Moles/Vol]19 mmol/ARjg38-72WtjstArkansas Valley Regional Medical CenterComment on above:Performed By: #### PGLU #### [facility] [address] [place] [address] Twulpeflqp [Mass/Vol]1.7 mg/dLCritically high0.8-1.3MSky Ridge Medical CenterComment on above:Performed By: #### PGLU #### [facility] [address] [place] [address] CAV47Reinmpar>60Ar[facility] CenterComment on above:Result Comment: Pediatric calculator link https://www.kidney.org/professionals/kdoqi/gfr_calculatorped Effective Feb [...] or following therapy that affects renal tubular secretion.Performed By: #### PGLU #### [facility] [address] [place] [address] Cfcovxv [Mass/Vol]125 mg/dLCritically appb04-14QaceySky Ridge Medical CenterComment on above:Performed By: #### PGLU #### [facility] [address] [place] [address] MRS8 (Bld) [Moles/Vol]17.8 mmol/LLow21.0-29.0Ar[facility] CenterComment on above:Performed By: #### PGLU #### [facility] [address] [place] [address] Cnpuukycle (Bld) [Volume fraction]27 %Mxd51-27KdcciArkansas Valley Regional Medical CenterComment on above:Performed By: #### PGLU #### [facility] [address] [place] [address] Cfxojqqdda (Bld) [Mass/Vol]9.3 g/dLLow13.5-17.5Ar[facility] CenterComment on above:Performed By: #### PGLU #### [facility] [address] [place] [address] Jytzpk saturation in Gvduj138 %Dmyreg63-705IpzqhArkansas Valley Regional Medical CenterComment on above:Performed By: #### PGLU #### [facility] [address] [place] [address] SWM Arterial Base Bpnuot-09Pmk-2-3MSky [facility] Comment on above:Performed By: #### PGLU #### [facility] [address] [place] [address] GUB Arterial QIW285 mm HgCritically kwrb43-01ZfuchArkansas Valley Regional Medical CenterComment on above:Performed By: #### PGLU #### [facility] [address] [place] [address] ZME Arterial pH7.156Critically low7.350-7.45Ar[facility] CenterComment on above:Performed By: #### PGLU #### [facility] [address] [address] EJK Arterial JY5230 mm HgCritically cric94-821KtgehArkansas Valley Regional Medical CenterComment on above:Performed By: #### PGLU #### [facility] [address] [place] [address] UDG Calciuim Ionized1.16 mmol/LNormal1.12-1.32Ar[facility] CenterComment on above:Performed By: #### PGLU #### [facility] [address] [place] [address] DRU VAG2402.000NoWray Community District HospitalComment on above: Performed By: #### PGLU #### [facility] [address] [place] [address] DOE Lactic Acid3.87 mmol/LCritically high0.40-2.00Ar[facility] CenterComment on above:Performed By: #### PGLU #### [facility] [address] [place] [address] QYY Performed onSEE BELOWValley View HospitalComment on above:Result Comment: Performed on POC Sample Type: Arterial Draw site: Art Line Jorge's test: N/A Oxygen Delivery System: Adult Vent Ventilator Mode: AC Tidal volume (Vt): 440 Respiratory Rate (RR): 18 PEEP: 5 Critical action: Notify physician Critical notify: mic parra Read back: Yes Notify date: 11-Apr-24 Notify time: 10:52:10Performed By: #### PGLU #### [facility] [address] [place] [address] HCX Sample TypeARTNoWray Community District HospitalComment on above:Performed By: #### PGLU #### [facility] [address] [place] [address] Vyoethaff [Moles/Vol]5.0 mmol/LNormal3.5-5.1MSky Ridge Medical CenterComment on above:Performed By: #### PGLU #### [facility] [address] [place] [address] Xmgken [Moles/Vol]145 mmol/TZjbhga685-413RrzjgArkansas Valley Regional Medical CenterComment on above:Performed By: #### PGLU #### [facility] [address] [place] [address] Nmuk Excess, Fuwbgwne-2Arc-7 - 3[facility] HealthCalcium, Ionized1.12 mmol/L1.12 - 1.32 mmol/LBon Secours Mercy HealthCO2 [Moles/Vol]20 mmol/LLow21 - 32 mmol/LBon Secours Mercy HealthCreatinine [Mass/Vol]1.6 mg/dL High0.8 - 1.3 mg/dLBon Secours [facility] IzjnwgBAQ75.000[facility] Health GFR/1.73 sq M.predicted among non-blacks MDRD (S/P/Bld) [Vol rate/Area]48 mL/min/{1.73_m2}Tzhgciav82 - PINFBon Secours Mercy HealthGlucose [Mass/Vol]202 mg/mQScuk24 - 99 mg/dlBon Secours [facility] HealthHCO3 (Bld) [Moles/Vol]19.0 mmol/L Low21.0 - 29.0 mmol/LBon [facility]ours [facility] HealthHematocrit (Bld) [Volume fraction] 19 %Critically low41 - 53 %[facility] HealthHemoglobin (Bld) [Mass/Vol] 6.4 g/dLCritically lowBon [facility] HealthInterpretation and review of laboratory resultsAbnormalBon [facility]ours Mercy HealthLactate [Moles/Vol]6.62 mmol/L Critically high0.40 - 2.00 mmol/LBon [facility]ours [facility] HealthpCO2, Jerxuxas88Vou [facility]ours [facility] HealthPerformed onSEE BELOWBon [facility] HealthpH, Arterial 7.794Oad7.350 - 7.450[facility] HealthpO2, ArterialCritically lowBon [facility] HealthPOC Nazyfcog854Ife [facility] HealthPotassium [Moles/Vol] 5.1 mmol/LBon Secours Mercy HealthSample TypeARTBon [facility] HealthSodium [Moles/Vol]142 mmol/LBon Secours Mercy HealthBon [facility] HealthChloride [Moles/Vol]109 mmol/YAphfqe23-151UcsilArkansas Valley Regional Medical CenterComment on above: Performed By: #### RENAL #### [facility] [address] [place] [address] GT1 [Moles/Vol]20 mmol/WAxp64-52TwbmkArkansas Valley Regional Medical CenterComment on above:Performed By: #### RENAL #### [facility] [address] [place] [address] Nbhibospwz [Mass/Vol]1.6 mg/dLCritically high0.8-1.3MSky Ridge Medical CenterComment on above:Performed By: #### RENAL #### [facility] [address] [place] [address] EOR55Bjoirver>60[facility] Medical CenterComment on above:Result Comment: Pediatric calculator link https://www.kidney.org/professionals/kdoqi/gfr_calculatorped Effective Feb [...] or following therapy that affects renal tubular secretion.Performed By: #### RENAL #### [facility] [address] [place] [address] Dchiwya [Mass/Vol]202 mg/dLCritically miwn28-88HfwpwSky Ridge Medical CenterComment on above:Performed By: #### RENAL #### [facility] [address] [place] [address] KHQ1 (Bld) [Moles/Vol]19.0 mmol/LLow21.0-29.0Ar[facility] CenterComment on above:Performed By: #### RENAL #### [facility] [address] [place] [address] Zqceqxjluq (Bld) [Volume fraction]19 %Critically igc13-38YkcbcArkansas Valley Regional Medical CenterComment on above:Performed By: #### RENAL #### [facility] [address] [place] [address] Hjjwnuydfs (Bld) [Mass/Vol]6.4 g/dLCritically low13.5-17.5Ar[facility] CenterComment on above:Performed By: #### RENAL #### [facility] [address] [place] [address] CJA Arterial Base Nzljjg-3Epd-0-3MSky [facility] Medical [facility] Comment on above:Performed By: #### RENAL #### [facility] [address] [place] [place] [address] XKW Arterial LHY654 mm LrVkzcuz37-05GzemrArkansas Valley Regional Medical Center Comment on above:Performed By: #### RENAL #### [facility] [address] [place] [address] FET Arterial pH7.200Bsz8.350-7.45[facility] Comment on above:Performed By: #### RENAL #### [facility] [address] [place] [address] PAX Arterial PO2<22Critically rib67-484MxxcoArkansas [facility] Comment on above:Performed By: #### RENAL #### [facility] [address] [place] [address] HCX Calciuim Ionized1.12 mmol/LNormal1.12-1.32Ar[facility] CenterComment on above:Performed By: #### RENAL #### [facility] [address] [place] [address] XBW FIO23.000NormDenver Health Medical CenterComment on above: Performed By: #### RENAL #### [facility] [address] [place] [address] ELF Lactic Acid6.62 mmol/LCritically high0.40-2.00Ar[facility] CenterComment on above:Performed By: #### RENAL #### [facility] [address] [place] [address] SUZ Performed onSEE BELOWNoWray Community District HospitalComment on above:Result Comment: Performed on POC Sample Type: Arterial Draw site: R Steve Jorge's test: N/A Oxygen Delivery System: Cannula Critical action: Notify physician Critical notify: mic parra Read back: Yes Notify date: 11-Apr-24 Notify time: 07:43:29Performed By: #### RENAL #### [facility] [address] [address] CRK Sample TypeARTValley View HospitalComment on above:Performed By: #### RENAL #### [facility] [address] [facility] [address] Wodxqlvxy [Moles/Vol]5.1 mmol/LNormal3.5-5.1MSky Ridge Medical CenterComment on above:Performed By: #### RENAL #### [facility] [address] [address] Aeuluj [Moles/Vol]142 mmol/UMkyyok928-289SnjcwArkansas Valley Regional Medical CenterComment on above:Performed By: #### RENAL #### [facility] [address] [facility] [address] VMWC Glucoseon 38-81-8974Gqncbkg [Mass/Vol]103 mg/mNVfmy02 - 99 mg/dlBon Adena Regional Medical CenterInterpretation and review of laboratory results [facility] HospitalPerformed onACCU-CHEKBon Adena Regional Medical CenterBon [facility]ena Regional Medical CenterGlucose [Mass/Vol]103 mg/dLCritically moyw86-71EkrqvSky Ridge Medical CenterComment on above:Performed By: #### PGLU #### [facility] [address] [facility] [address] TOQ Performed onACCU-AdventHealth ParkerComment on above:Performed By: #### PGLU #### [facility] [address] [facility] [address] Buvqfaw [Mass/Vol]112 mg/sJShij31 - 99 mg/dlBon [facility]ena Regional Medical Center Interpretation and review of laboratory resultsAbnoTwin County Regional Healthcare Performed onACCU-CHEKBon Adena Regional Medical CenterGlucose [Mass/Vol]112 mg/dL Critically rjlg23-51GsgtuSky Ridge Medical CenterComment on above:Performed By: #### PGLU #### [facility] [address] [place] [address] STA Performed [facility] HospitalComment on above:Performed By: #### PGLU #### [facility] [address] [place] [address] Egstffo [Mass/Vol]209 mg/eOAkhl19 - 99 mg/dlBon [facility] Interpretation and review of laboratory resultsAbnormalInova Fair Oaks Hospital Performed onACCU-CHEKBon [facility]ena Regional Medical CenterBon [facility] Medical CenterGlucose [Mass/Vol]209 mg/dLCritically qkhb21-51LkewdSky Ridge Medical CenterComment on above:Performed By: #### PGLU #### [facility] [address] [place] [address] ZCG Performed [facility] HospitalComment on above:Performed By: #### PGLU #### [facility] [address] [place] [address] Spsaveq Thromboplastin Timeon 17-58-6648gHWL Coag (Bld) [Time]30.1 s Fjkytn02.4-36.8[facility] Medical CenterComment on above:Result Comment: Effective 03/25/2020: Heparin Therapeutic Range: 64.0 ? 98.0 seconds.Performed By: #### PGLU #### [facility] [address] [place] [address] sCGV Coag (Bld) [Time]29.1 aPpwbwn04.4-36.8[facility] Medical CenterComment on above:Result Comment: Effective 03/25/2020: Heparin Therapeutic Range: 64.0 ? 98.0 seconds.Performed By: #### PGLU #### [facility] [address] [place] [address] Sasmzyqg XR Chest AP single viewon 27-94-1932ELJP [place] [facility] CHPO [place] RADIOLOGYBon [facility]ena Regional Medical CenterRadiology Study observation (narrative)Bon [facility] HealthCHPO [place] RADIOLOGYCHPO [place] RADIOLOGYBon [facility] Regional Medical CenterRadiology Study observation (narrative)Bon [facility] HealthPortable XR Chest AP single viewOrdered By: Michellemahogany Moody on 45-24-5516N[facility] [employer] Work Phone: Portable XR Chest AP single viewOrdered By: Mitzi Garcia on 21-83-0281Wyy [facility] [employer] Work Phone: Prothrombin Timeon 78-26-6493YWX Coag (PPP) [Relative time]1.4 {INR}[facility] HospitalComment on above:Performed By: #### PGLU #### [facility] [address] [facility] [address] ZG Coag (PPP) [Time]17.2 sCritically high12.3-14.9Bon [facility] CenterComment on above:Performed By: #### PGLU #### [facility] [address] [facility] [address] WPD Coag (PPP) [Relative time]1.4 {INR}[facility] View HospitalComment on above:Performed By: #### RENAL #### [facility] [address] [facility] [address] TV Coag (PPP) [Time]17.0 sCritically high12.3-14.9[facility] CenterComment on above:Performed By: #### RENAL #### [facility] [address] [facility] [address] Fzphxvv-INRon 69-06-1861Qaehtczzbmgvfr and review of laboratory resultsAbnormalBon [facility] and SchoolINR Coag (PPP) [Relative time]1.4 {INR}In[facility] Fair Oaks HospitalInterpretation and review of laboratory resultsAbnormalInova Fair Oaks HospitalPT Coag (PPP) [Time]17.0 sHigh Bon [facility] LRon 45-20-2863FHY LR PATIENT: NETTE Burdick LOC: [facility], [facility]# : [id number] : 1960 SEX: M ORDERED BY: TAL HAMM ORDERED : 04/11/2024 02:19 COLLECTED: 04/11/2024 02:26 ORDER : [id number] RECEIVED : 04/11/2024 02:37 TEST NAME RESULT UNITS RANGES ABN FL ST RBC LR E0336 RBC LR W1 F = RBC LR E0336 RBC LR W1 F = RBC LR E0685 RBC Aph LR W1 F = RBC LR E0336 RBC LR W1 F = [facility] HospitalComment on above:Performed By: #### PGLU #### [place] [id number] [phone] Specimenon 35-45-1433Bmpioaay [facility] [address] [place] [address] FINAL SURGICAL PATHOLOGY REPORT Patient Name: JASMEET PERDUE Accession No: [id number] Age Sex: 1960 Location: [facility] [id number] Account No: [id number] Collected: 04/11/2024 [facility] Rec No: [id number] Received: 04/12/2024 Attend Phys: BELTRAN HALL Completed: 04/16/2024 Perform Phys: BELTRAN HALL FINAL DIAGNOSIS: SPLEEN: SPLEEN (127 G) SHOWING CAPSULAR DISRUPTION, HEMORRHAGE, AND ATTACHED BLOOD CLOT. PSW/PSW CLINICAL INFORMATION: Procedure: Exploratory laparotomy. Preoperative diagnosis: Bleeding. SPECIMEN: Spleen GROSS DESCRIPTION: Received in one container labeled Jasmeet Perdue and designated spleen . The specimen is received in formalin. The specimen consists of a spleen, which is 13 x 7.5 x 2 cm. The capsule is disrupted and there is adherent clot. The spleen is 127 grams. A mass lesion is not identified. Pictures Editor sections are submitted in five cassettes. DOMINIQUETX/SAVANNAH CPT: 83425 X1 Intradepartmental Consultation performed by: Dr. Angela CHO M.D., who concurs with the above diagnosis. ZOE GLASS M.D. 04/16/2024 Electronically signed out by Page 1 of 1Invalid Interpretation [facility] HealthComment on above:Performed By: #### JOSE CARLOS ####[facility] RdLorValley Springs Behavioral Health Hospital [phone] AND SCREENon 06-19-9062XKR/RhPositiveBon [facility] CenterBon [facility] HealthTroponinon 10-55-6779Vnzmyxhu, High Rqvnbxfidud70 ng/L0 - 19 ng/LBon [facility] Medical CenterType and Screen 3 cell Gel on 16-30-1983Riwk and Screen 3 cell GelPATIENT: NETTE Burdick LOC: LCOPS,ORPOOL,NON BILL# : [id number] : 1960 SEX: M ORDERED BY: TAL HAMM ORDERED : 04/11/2024 02:18 COLLECTED: 04/11/2024 02:26 ORDER : [id number] RECEIVED : 04/11/2024 02:37 TEST NAME RESULT UNITS RANGES ABN FL ST ABORH Gel O POS F Antibody 3 Cell Scrn Gel NEG F Valley [facility] HospitalComment on above:Performed By: #### PGLU #### [facility] [address] [place] [address] FY CHEST PORTABLEon 76-08-9785OH CHEST PORTABLEEXAMINATION: ONE XRAY VIEW OF THE CHEST 04/11/2024 [...] Signed by: Sharath Moody MD 04/11/24 Final resultNormDenver Health Medical CenterXR CHEST PORTABLEEXAMINATION: ONE XRAY VIEW OF THE CHEST 04/11/2024 [...] Signed by: Mitzi Garcia MD 04/11/24 Final resultNoWray Community District HospitalaPTT Coag (PPP) [Time]on 22-06-7321Eps [facility] Care Hospital and SchoolEKG Rhythm Stripon 31-16-3528CXMACCHERRINGTON HOSPITAL LABInova Fair Oaks HospitalOPERATIVE REPORTon 17-81-1259RFTBJZYNS REPORTMOUNT ST. [facility] [address] [place] [address] OPERATIVE REPORT PATIENT NAME:JASMEET PERDUE :1960 MED REC NO:[id number] ROOM:[facility] ACCOUNT NO:[id number] ADMIT DATE:04/10/2024 PROVIDER:Beltran Hall MD DATE OF PROCEDURE: 04/10/2024 SURGEON: Beltran Hall MD RESOURCE ROOM TEACHER: Ms. Olvera. 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 Patient has a number ofcomorbidities. Patient cleared from a Cardiology standpoint and medically optimized. Bowel prep andantibiotic bowel prep were given preoperatively. Risks and benefits of sigmoid resection with possible ileostomy were discussed in the office. Risks of the surgery including infection, bleeding, damage to the surrounding intestine, anastomotic leak, reoperation, postoperative pain, as well as othercomplications from existing aortic aneurysm repair as well as severe coronary artery disease were all explained well. Despite the risks of surgery, he wished to proceed given his symptoms. Consent obtained. DESCRIPTION OF PROCEDURE: He was taken to the operating room and placed in the supine position. General endotracheal anesthesia was administered. Bilateral TAP block was placed. Fraire catheter and orogastric tube were placed. He was placed in lithotomy. All pressure points were properly padded. Hisperineum and abdomen were prepped and draped with a Betadine-containing solution and ChloraPrep-cont aining solution respectively. Ancef and Flagyl given preoperatively. [...] the sigmoid colon to the distal bladder. [place] meticulous dissection to get through the scar [...] device. I was able to get down belowthe area of dense adhesions and a Contour was used to fire across the mid rectum. The specimen was taken off and sent to Pathology in formalin for permanent section. At this time, I maximized mobility of the left colon. 3 mL of ICG was given intravenously, and using the [employer] AIM perfusion equipment, the proximal colon was [...] bleeding. Gown and gloves were changed. A 19-English round Neal drain was placed in the pelvis, brought out laterally and sutured to the skin. A distal loop of small bowel was brought out through a separate incision on the right lower abdomenas a diverting loop ileostomy. A 20-English chest tube was used as an ileostomy bridge. At this time, all 4 quadrants were evaluated. No bleeding seen. Small bowel was run from the ligament of Treitz to the ileocecal valve. It was placed back in normal anatomic position. The omentum wasdraped over the intestine. A closing table was [...] appliance was placed. Dressings were applied. Prior (more content not included)...NormalArkansas Valley Regional Medical CenterPOCT Glucoseon 45-22-9919Bicmbfw [Mass/Vol]133 mg/kEZvgm98 - 99 mg/dlBon [facility] CenterInterpretation and review of laboratory resultsAbnormalInova Fair Oaks HospitalPerformed onACCU-CHEKBon Children[facility] Care Hospital and SchoolGlucose [Mass/Vol]133 mg/dLCritically oddk87-29XlpznSky Ridge Medical CenterComment on above:Performed By: #### CBCND #### [address] [id number] POC Performed onACCU-[facility]IET[facility]IAL HOSPITALKNYuma District HospitalComment on above:Performed By: #### CBCND #### [address] [id number] [phone] Specimenon 73-06-0724Vsjqbdur [facility] [address] [place] [address] [id number] FINAL SURGICAL PATHOLOGY REPORT Patient Name: JASMEET PERDUE Accession No: [id number] Age Sex: 1960 Location: [facility] HG3547 Account No: [id number] Collected: 04/10/2024 [facility] Rec No: [id number] Received: 04/11/2024 Attend Phys: BELTRAN HALL Completed: 04/12/2024 Perform Phys: BELTRAN HALL FINAL DIAGNOSIS: SIGMOID COLECTOMY: ACUTE DIVERTICULITIS WITH PERICOLIC ABSCESSES, HEMORRHAGE AND ADHESIONS RESECTION MARGINS, NO PATHOLOGIC DIAGNOSIS SMALL REGIONAL LYMPH NODES DOMINIQUEMO/DOMINIQUEMO CLINICAL INFORMATION: Procedure: Sigmoid colectomy with ileostomy. Preop Diagnosis: Diverticulitis, large intestine. SPECIMEN: Sigmoid GROSS DESCRIPTION: Received is one container labeled with the patient's name, Jasmeet Perdue , and designated sigmoid colon. The specimen is received in formalin. The specimen consists of a portion of colon, 24 cm in length. There is extensive hemorrhage, and there are extensive adhesions on the serosal surface and in the pericolic adipose tissue. A mass lesion is not grossly identified. There is diverticular disease with a thickened bowel wall and a narrow lumen. Pictures Editor sections are submitted: 1 - 2: Proximal and distal resection margins. 3 - 10: Diverticula. LISA/LISA CPT: 64745 X1 J VASU CHO M.D. 04/12/2024 Electronically signed out by Page 1 of 1Invalid Interpretation Grand River HealthComment on above:Performed By: #### PGLU #### [facility] [address] [facility] [address] MFE With Platelet No Differentialon 70-01-7419Ntlgjvjetzg distribution width (RBC) [Ratio]14.6 %Critically high11.5-14.5Bon SecMercy Health Urbana HospitalComment on above:Performed By: #### CBCND #### [facility] [address] [place] [address] Ajzsmgdwbm (Bld) [Volume fraction]50.6 %Yshmbk79.0-52.0Bon SecMercy Health Urbana HospitalComment on above:Performed By: #### CBCND #### [facility] [address] [place] [address] Rhooitswkv (Bld) [Mass/Vol]16.8 g/rBHvapgp37.0-18.0Bon [facility] Medical CenterComment on above:Performed By: #### CBCND #### [facility] [address] [address] PDX (RBC) [Entitic mass]32.3 pgCritically high27.0-31.3Bon [facility] Hospital - Andersonment on above:Performed By: #### CBCND #### [facility] [address] [place] [address] YEPA46.2 %Oatmox02.0-37.0[facility] Medical CenterComment on above:Performed By: #### CBCND #### [facility] [address] [place] [address] KUC (RBC) [Entitic vol]97.3 fLCritically high79.0-92.2Bon [facility] CenterComment on above:Performed By: #### CBCND #### [facility] [address] [place] [address] Hujfybami (Bld) [#/Vol]199 10*3/fMAyrypi539-475Umd [facility] CenterCombrighton hospital on above:Performed By: #### CBCND #### [facility] [address] [place] [address] CXO (Bld) [#/Vol]5.20 10*6/uLNormal4.70-6.10Bon [facility] Comment on above:Performed By: #### CBCND #### [facility] [address] [place] [address] EHN (Bld) [#/Vol]7.6 10*3/uLNormal4.8-10.8Bon [facility] Comment on above:Performed By: #### CBCND #### [facility] [address] [place] [address] LFC panel Auto (Bld)on 71-90-9662Sapgsoptrxijft and review of laboratory resultsAbnormCarilion Roanoke Memorial HospitalHC (RBC) [Mass/Vol]33.2 % 33.0 - 37.0 %[facility]—Henrico CampusFresh Frozen Plasma on 39-79-2186Ouscg Frozen PlasmaPATIENT: NETTE Burdick LOC: [facility] BILL# : [id number] : 1960 SEX: M ORDERED BY: ZINA Moore ORDERED : 04/11/2024 03:13 COLLECTED: 04/03/2024 14:01 ORDER : [id number] RECEIVED : 04/03/2024 14:01 Two types on record-confirmation type not required. TEST NAME RESULT UNITS RANGES ABN FL ST Fresh Frozen Plasma E5548 FP Thaw 5D W1 F = Fresh Frozen Plasma E5548 FP Thaw 5D W1 F = Fresh Frozen Plasma E5548 FP Thaw 5D W1 F = Fresh Frozen Plasma E5548 FP Thaw 5D W1 F = Fresh Frozen Plasma E2701 FP thaw 5D W1 F = Fresh Frozen Plasma E5548 FP Thaw 5D W1 F = Fresh Frozen Plasma E5549 FP Thaw 5D W1 F = Fresh Frozen Plasma E2701 FP thaw 5D W1 F = Fresh Frozen Plasma E5548 FP Thaw 5D W1 F = [facility] HospitalComment on above:Performed By: #### PGLU #### [facility] [address] [facility] [address] Pepxicoz LRon 03-27-0288Czggllqk LRPATIENT: NETTE Burdick LOC: [facility]# : [id number] : 1960 SEX: M ORDERED BY: ZINA Moore ORDERED : 04/11/2024 08:02 COLLECTED: 04/03/2024 14:01 ORDER : [id number] RECEIVED : 04/03/2024 14:01 Two types on record-confirmation type not required. TEST NAME RESULT UNITS RANGES ABN FL ST Platelet IRR LR E8342 APLT LR W1 F = [facility] HospitalComment on above:Performed By: #### PGLU #### [facility] [address] [facility] [address] IUA LR 05-91-9048UFF LRPATIENT: NETTE JASMEET L LOC: [facility] BILL# : [id number] : 1960 SEX: M ORDERED BY: ZINA Moore ORDERED : 04/11/2024 02:25 COLLECTED: 04/03/2024 14:01 ORDER : [id number] RECEIVED : 04/03/2024 14:01 Two types on record-confirmation type not required. TEST NAME RESULT UNITS RANGES ABN FL ST RBC LR E0336 RBC LR W1 F = RBC LR E0685 RBC Aph LR W1 F = RBC LR E0686 RBC Aph LR W1 F = RBC LR E0685 RBC Aph LR W1 F = RBC LR E0686 RBC Aph LR W1 F = RBC LR E0336 RBC LR W1 F = RBC LR E0336 RBC LR W1 F = RBC LR E0336 RBC LR W1 F = RBC LR E0336 RBC LR W1 F = RBC LR E0685 RBC Aph LR W1 F = RBC LR E0336 RBC LR W1 F = [facility] HospitalComment on above:Performed By: #### CBCND #### [facility] [address] [facility] [address] KYIV AND SCREENon 26-31-6557EYB and Rh group Nom (Bld)Blood group O Rh(D) positiveInova Fair Oaks HospitalBlood group antibody screen QlNegativeCarilion Tazewell Community Hospitalwo types on record-confirmation type not required. [facility] LABInova Fair Oaks HospitalType and Screen Capture 3 scrn cellon 24-84-1853Kleh and Screen Capture 3 scrn cellPATIENT: NETTE Burdick LOC: [facility] BILL# : [id number] : 1960 SEX: M ORDERED BY: ZINA Moore ORDERED : 04/03/2024 13:57 COLLECTED: 04/03/2024 14:01 ORDER : [id number] RECEIVED : 04/03/2024 14:01 Two types on record-confirmation type not required. TEST NAME RESULT UNITS RANGES ABN FL ST ABORH Capture O POS F Antibody 3 Cell Scrn Captu NEG F [facility] HospitalComment on above:Performed By: #### TS3C #### [facility] [address] [place] [address] Yexwtlmkdp Visit Summaryon 79-76-6591Douakazfqm Visit Summary Ambulatory Visit Summary JASMEET PERDUE :1960 Visit Date:02/28/2024 Ambulatory Visit Instructions Your Diagnosis Chronic sciatica of left side Your Care Team Attending Physician - Shanel VICK, [place] Primary Care Physician - Tristen MSN, APPLICATION ADMINISTRATOR-PROCUREMENT BUYER, Sherie Dash This Is Your Medications List atorvastatin [...] (11/09/2020), Epidural injection of lumbar spine using fluoroscopicguidance (09/30/2020), Injection of nerve root of lumbar [...] Follow-Up Appointments Monday 7:20 AM EDT With: Tristen MSN, APPLICATION ADMINISTRATOR-PROCUREMENT BUYER, Sherie Dash Where: [place] [phone]- Medications What How Much When Instructions Unchanged [...] you for choosing us for your care. [facility] Medicine Office/Clinic Noteon 87-20-5506Peynww Medicine Office/Clinic NoteLeonard Morse Hospital Medicine Office/Clinic Note Chief Complaint leg and hip pain HPI Staff complaints of leg and hip pain Onset: a week Characteristics: left side, think it comes from back pain, hard to do daily activities, hip down tocalf, OTC tried: ice on back, was doing pain management [place] [facility], they got new drs who are not credentialed with his insurance so they placed him on hold History of Present Illness I have reviewed and verified the staff HPI to be accurate for this encounter. Portions of this record have been created with voice recognition software. Occasional wrong-word or?mirvy-p-xnjn? substitutions may have occurred due to the inherent limitations of voice recognitionsoftware. 63-year-old male with history of chronic lumbar [...] did have a pain management follow-up on December 31fter procedure done on 12/27/23 where it is [...] cannot get pain relief in pain management dueto insurance issues he should be seeking care [...] not be a long-lasting remedy. He needs towork with his primary care provider and pain [...] emergency department. Follow-up With When Contact Information Tristen MSN, APPLICATION ADMINISTRATOR-PROCUREMENT BUYER, [place] [address] Additional Instructions: Patient Education Hypertension, Adult, Buis-la-Duct Sciatica, Msbv-to-Zcvc Acute Pain, Adult Problem List/Past Medical History [...] Pain in joint, mu (more content not included)...[facility] Medical CenterComment on above:Result Comment: Electronically Signed By: Shanel VICK, [place]\.br\Date and Time Signed: 02/28/24 15:33 EDTBasic Metabolic Panelon 83-77-0358Zyfwv gap [Moles/Vol]6 mmol/LLow9-15[facility] Comment on above:Performed By: #### CBCWD #### [facility] [address] [place] [address] Nnmdnhp [Mass/Vol]8.9 mg/dLNormal8.5-9.9[facility] CenterComment on above:Performed By: #### CBCWD #### [facility] [address] [place] [place] [address] Jmlskldw [Moles/Vol]101 mmol/PXvmwdu21-128LldkmArkansas Valley Regional Medical CenterComment on above:Performed By: #### CBCWD #### [facility] [address] [place] [address] QA5 [Moles/Vol]30 mmol/KZwgwjm55-55NafjfArkansas Valley Regional Medical Center Comment on above:Performed By: #### CBCWD #### [facility] [address] [place] [place] [address] Ogylcydytj [Mass/Vol]0.80 mg/dLNormal0.70-1.20[facility] CenterComment on above:Performed By: #### CBCWD #### [facility] [address] [place] [address] FIS>90.0Normal>60Ar[facility] Medical CenterComment on above: Result Comment: Pediatric calculator link https://www.kidney.org/professionals/kdoqi/gfr_calculatorped Effective Feb [...] or following therapy that affects renal tubular secretion.Performed By: #### CBCWD #### [facility] [address] [address] Rjcgfcy [Mass/Vol]97 mg/kILndaej23-98ZbmmjSky Ridge Medical Center Comment on above:Performed By: #### CBCWD #### [facility] [address] [place] [address] Smpbgorvg [Moles/Vol]4.1 mmol/LNormal3.4-4.9[facility] CenterComment on above:Performed By: #### CBCWD #### [facility] [address] [place] [address] Ortrgq [Moles/Vol]137 mmol/SLuoxtt692-860EeqhvArkansas Valley Regional Medical CenterComment on above:Performed By: #### CBCWD #### [facility] [address] [place] [address] Aqvy nitrogen [Mass/Vol]9 mg/dLNormal8-23Ar[facility] CenterComment on above:Performed By: #### CBCWD #### [facility] [address] [place] [address] EA ABDOMEN PELVIS W IV CONTRASTon 78-39-3284ZZ ABDOMEN PELVIS W IV CONTRASTEXAMINATION: CT OF THE ABDOMEN AND PELVIS WITH [...] the sigmoid colon. Assess for sigmoid pathology laboratory aide PROVIDED HISTORY: Reason for exam:->Bowel stricturing at [...] mild thickening Pelvis: Patulous left inguinal canal Peritoneum/Retroperitoneum: Portal venous and venous structures are normal. [...] Signed by: Sharath Moody MD 02/21/24 Final resultNoWray Community District HospitalPOCT Venouson 02-21-2024 Creatinine [Mass/Vol]0.7 mg/dLLow0.8-1.3MSky Ridge Medical CenterComment on above:Performed By: #### CBCND #### [facility] [address] [place] [address] VOB>90Normal>60Ar[facility] CenterComment on above:Result Comment: Pediatric calculator link https://www.kidney.org/professionals/kdoqi/gfr_calculatorped Effective Feb [...] or following therapy that affects renal tubular secretion.Performed By: #### CBCND #### [facility] [address] [place] [address] HBN Performed onSEE BELOWValley View HospitalComment on above:Result Comment: Performed on POCPerformed By: #### CBCND #### [facility] [address] [place] [address] MAX Sample TypeVENValley View HospitalComment on above:Performed By: #### CBCND #### [facility] [address] [place] [address] Mnhjcw Medicine Office/Clinic Noteon 15-39-1788Kqyzzn Medicine Office/Clinic NoteLeonard Morse Hospital Medicine Office/Clinic Note HPI Staff Patient is [...] f/u recommended; this patient does _ have familyhistory of colon cancer: took polyps out supposed to follow up in 1 year but never did Labs: 08/01/2023 PSA: 1.1 on 02/2022 ; this patient does _ have a family history of prostate cancer Smokers/ former smokers: Low dose lung CT: _ List of Providers: Pain clinic: Dr Andrade Cardiovascular surgeon: Dr Yan Software Q[employer] System Specialist: Dr Hall Games Manager: [facility] Cr/eGFR: eGFR: 95 mL/min/1.73 [...] in the process of obtaining credential insurance. Hefollowed up with the specialist, but he is [...] uncertain of its effectiveness. His neurosurgeon has advisedagainst further intervention due to potential long-term implications. After walking for a while, heexperiences tingling in his foot and leg pain, [...] during which polyps were removed. He was supp osed to follow up back with Dr. Hall for another colonoscopy within a year but did not follow through. He is planning to schedule an appointment. He has tried MiraLAX in the past, but it caused work-related issues. He had a single bowel movement after taking 2 pills. He denies hematochezia. Hehas a history of irritable bowel syndrome. He has a nodule on his leg, which has not increased in size. He had a similar nodule in the same leg, which resolved after bursting. He has dry spots on his skin that become erythematous and bleed when he bumps himself. He follows up with a calender machine operator helper, Dr. Gonsalves, who monitors for cancer. SOCIAL [...] essential HTN (I10: Essential (more content not included)...Normal [facility], AvonComment on above:Result Comment: Electronically Signed By: Tristen AQUINO, APPLICATION ADMINISTRATOR-PROCUREMENT BUYERSherie\.br\Date and Time Signed: 02/02/24 11:03 EDT\.br\Electronically Co-Signed By: Oni Gabriel\.br\Date and Time Co-Signed: 02/02/24 09:58 EDTMain OR Intraoperative Recordon [id number] OR Intraoperative RecordMain OR Intraoperative Record IntraOp Document Type FTPM Summary Primary Physician: Cresencio Andrade DO Finalized Date/Time: 12/27/23 13:20:06 Pt. Name: JASMEET PERDUE/Sex: 1960 Male Med Rec #: [id number] Physician: Cresencio Andrade DO Financial #: [id number] Pt. Type: P Room/Bed: / Admit/Disch: 12/27/23 [...] Martita Miller Role Performed Surgeon - Primary Placement Manager - Primary Scrub - Primary Time In 12/27/23 13:11:00 12/27/23 13:11:00 12/27/23 13:11:00 Time Out 12/27/23 13:20:00 12/27/23 13:20:00 12/27/23 13:20:00 Procedure MEDIAL BRANCH MEDIAL BRANCH MEDIAL BRANCH BLOCK(Bilateral) BLOCK(Bilateral) BLOCK(Bilateral) Comments Last Modified By: Safia Bruno RN, RN, Madison A Pritchard RN, Madison A 12/27/23 13:19:38 12/27/23 13:19:38 12/27/23 13:19:38 Entry 4 Case Attendee Alla Friend Role Performed Spray Drier Operator Time In 12/27/23 13:11:00 Time Out 12/27/23 [...] Roderick RN, Raymond Rivera DO, Bradford A., Alla Friend Time Out Complete 12/27/23 13:11:00 Outcomes Met? [...] and tissue Entry 1 Skin Integrity Intact, [place], Warm, & Skin Abnormality No Dry Outcomes [...] Last Modified By: Tomi (more content not included)...[facility] Preoperative Recordon [id number] OR Preoperative RecordMain OR Preoperative Record Holding Area Document Type FTPM Summary Primary Physician: Cresencio Andrade DO Finalized Date/Time: 12/27/23 12:18:34 Pt. Name: JASMEET PERDUE/Sex: 1960 Male Med Rec #: [id number] Physician: Cresenico Andrade DO Financial #: [id number] Pt. Type: P Room/Bed: / Admit/Disch: 12/27/23 11:47:54 - Institution: Case Times Holding FTPM Pre-Care Text: Verifies consent for planned procedure, identifies individual values and wishes concerning care, includes family members in perioperative teaching Secures patient's records' belongings, and valuables, maintains patient's dignity and privacy, and maintains patient confidentiality Entry 1 In Holding 12/27/23 11:58:00 Outcomes Met? Yes Last Modified By: Henry Brown RN 12/27/23 11:58:07 Post-Care Text: The patient participates in decisions affecting his or her perioperative plan of care The patient'sright to privacy is maintained Surgery Checklist FTPM [...] comments below for reason Last Modified By: Henry Brown RN 12/27/23 12:18:33 Finalized By: Henry Brown RN Document Signatures Signed By: Henry Brown RN 12/27/23 12:01 Henry Brown RN 12/27/23 12:18Normal[facility] [place] CHEMISTRYOrdered By: SYSTEM SYSTEM on [id number] [Mass/Vol]4.3 g/dLNormal 3.3 - 5.0 gm/dLRemisol ChemAlbumin/Globulin [Mass ratio]1.4 {ratio}Normal1.1 - 2.2Remisol ChemALP [Catalytic activity/Vol]94 [iU]/cXstbzb38 - 98 Int._Unit/L Remisol ChemALT No additional P-5'-P [Catalytic activity/Vol]20 [iU]/dNormal6 - 46 Int._Unit/LRemisol ChemAnion gap [Moles/Vol]11 mmol/LNormal6 - 16 mEq/L Remisol ChemAST [Catalytic activity/Vol]18 [iU]/dNormal5 - 43 Int._Unit/LRemisol ChemBilirubin [Mass/Vol]0.4 mg/dLNormal0.0 - 1.1 mg/dLRemisol ChemCalcium [Mass/Vol]9.3 mg/dLNormal8.9 - 11.1 mg/dLRemisol ChemChloride [Moles/Vol]105 mmol/NRgxebo276 - 111 mmol/LRemisol ChemCholesterol [Mass/Vol]125 mg/fTBzqdao267 - 200 mg/dLRemisol ChemCholesterol in HDL [Mass/Vol]42 mg/dLInvalid Interpretation CodeRemisol ChemComment on above:Result Comment: '>= 60 LOW RISK' '<= 40 HIGH RISK'Cholesterol in LDL [Mass/Vol]72 mg/dLNormal<=129mg/dLRemisol ChemCholesterol in VLDL [Mass/Vol]18 mg/dLNormal7 - 40 mg/dLRemisol ChemCO2 [Moles/Vol]28 mmol/YQysgmz68 - 31 mmol/LRemisol ChemCreatinine [Mass/Vol]0.9 mg/dLNormal0.5 - 1.3 mg/dLRemisol WzhedKHX05 mL/min/1.73 d1Gcpryv>=59mL/min/1.73 x0Ddbgonb ChemGlobulin (S) [Mass/Vol]3.1 g/dLNormal1.4 - 4.0 gm/dLRemisol Chem Glucose [Mass/Vol]88 mg/tBIbcjkp83 - 199 mg/dLRemisol ChemPotassium [Moles/Vol] 4.2 mmol/LNormal3.5 - 5.3 mmol/LRemisol ChemProtein [Mass/Vol]7.4 g/dLNormal6.0 - 7.8 gm/dLRemisol ChemSodium [Moles/Vol]140 mmol/CTsgdjx820 - 145 mmol/LRemisol ChemTriglyceride [Mass/Vol]90 mg/dLNormal<=149mg/dLRemisol ChemUrea nitrogen [Mass/Vol]15 mg/dLNormal5 - 21 mg/dLRemisol ChemUrea nitrogen/Creatinine [Mass ratio]17 mg/dpYydphv93 - 20Remisol ChemHEMATOLOGYOrdered By: SYSTEM SYSTEM on 91-40-5501Bknjpjxjx/100 WBC (Bld)0.7 %Normal0.0 - 2.0 %Remisol Heme Basophils/Leukocytes Auto (Bld) [Pure # fraction]0.1 E9/LNormal0.0 - 0.2 E9/L Remisol HemeEosinophils (Bld) [#/Vol]0.4 E9/LNormal0.0 - 0.5 E9/LRemisol Heme Eosinophils/100 WBC (Bld)5.7 %Normal0.0 - 8.0 %Remisol HemeErythrocyte distribution width (RBC) [Ratio]15.3 %High10.9 - 14.2 %Remisol HemeHematocrit (Bld) [Volume fraction]49.6 %High37.7 - 49.0 %Remisol HemeHemoglobin (Bld) [Mass/Vol]15.7 g/oAFdnjsr03.5 - 17.5 gm/dLRemisol HemeLymphocytes (Bld) [#/Vol] 1.6 E9/LNormal1.0 - 4.0 E9/LRemisol HemeLymphocytes/100 WBC (Bld)21.7 %Normal 14.0 - 50.0 %Remisol HemeMCH (RBC) [Entitic mass]30.6 thEmruye55.0 - 34.0 pg Remisol HemeMCHC (RBC) [Mass/Vol]31.7 g/vKJdsvzm29.4 - 36.0 gm/dLRemisol HemeMCV (RBC) [Entitic vol]96.4 dUOvzmfu19.0 - 100.0 fLRemisol HemeMonocytes (Bld) [#/Vol]0.7 E9/LNormal0.2 - 1.0 E9/LRemisol HemeMonocytes/100 WBC (Bld)9.4 % Normal4.0 - 14.0 %Remisol HemeNeutrophils (Bld) [#/Vol]4.7 E9/LNormal2.0 - 7.5 E9/LRemisol HemeNeutrophils/100 WBC (Bld)62.5 %Pdfcfo23.0 - 75.0 %Remisol Heme Fzuovmtk886.0 E9/YFzvmuo883.0 - 500.0 E9/LRemisol HemePlatelet mean volume (Bld) [Entitic vol]8.5 fLNormal6.4 - 10.8 fLRemisol HemeRBC (Bld) [#/Vol]5.1 E12/L Normal4.3 - 5.9 E12/LRemisol HemeWBC corrected for nucl RBC Auto (Bld) [#/Vol] 7.5 E9/LNormal4.0 - 11.0 E9/LRemisol HemeColonoscopy studyon 05-18-2022 Beltran Hall MD - 05/18/2022 Site: [facility] Patient Name: JASMEET PERDUE Procedure Date: 05/18/2022 Date of : 1960 Gender: Male Attending MD: Beltran Hall Referring MD: PCP NO Indications: - Screening [...] - Await pathology results. Procedure Code(s): - 27407, Colonoscopy, flexible; with removal of tumor(s), polyp(s), or other lesion(s) by snare technique - 25233-25, Colonoscopy, flexible; with biopsy, single or multiple Diagnosis Code(s): - Z12.11, Encounter for screening for malignant neoplasm of colon - D12.8, Benign neoplasm of rectum - D12.4, Benign neoplasm of descending colon - K57.30, Diverticulosis of large intestine without perforation or abscess without bleeding CPT(R) - 2022 copyright [employer]. All Rights Reserved. The CPT codes, CCI edits and ICD codes generated are intended as suggestions and were generated based on input data. These codes are preliminary and upon soft sugar cutter review may be revised to meet current compliance and payer requirements. The provider is responsible for the final determination of appropriate codes, and modifiers. Scope Withdrawal Time: 00:17:48 Signature Name: Beltran Hall MD Signature Statement:This document has been electronically signed. Note Initiated On:05/18/2022 Signature Date:05/18/2022 8:57 AM JAMISON [employer] Work Phone: bON [employer] Phone: cHEMISTRYOrdered By: SYSTEM SYSTEM on 03-17-2022 Albumin [Mass/Vol]3.8 g/dLNormal3.3 - 5.0 gm/dLFT RemisolAlbumin/Globulin [Mass ratio]1.1 {ratio}Normal1.1 - 2.2FTMC RemisolALP [Catalytic activity/Vol]90 [iU]/gUdxyda89 - 98 Int._Unit/LFTMC RemisolALT No additional P-5'-P [Catalytic activity/Vol]16 [iU]/dNormal6 - 46 Int._Unit/LFTMC RemisolAnion gap [Moles/Vol] 11 mmol/LNormal6 - 16 mEq/LFTMC RemisolAST [Catalytic activity/Vol]16 [iU]/d Normal5 - 43 Int._Unit/LFTMC RemisolBilirubin [Mass/Vol]0.3 mg/dLNormal0.0 - 1.1 mg/dLFTMC RemisolCalcium [Mass/Vol]8.9 mg/dLNormal8.9 - 11.1 mg/dLFTMC Remisol Chloride [Moles/Vol]104 mmol/GCdjriz912 - 111 mmol/LFTMC RemisolCholesterol [Mass/Vol]114 mg/oRMft121 - 200 mg/dLFTMC RemisolCholesterol in HDL [Mass/Vol]39 mg/dLInvalid Interpretation CodeFTMC RemisolCholesterol in LDL [Mass/Vol]65 mg/dLNormal<=129mg/dLFTMC RemisolCholesterol in VLDL [Mass/Vol]7 mg/dLNormal7 - 40 mg/dLFTMC RemisolCO2 [Moles/Vol]28 mmol/UJawjwq52 - 31 mmol/LFTMC Remisol Creatinine [Mass/Vol]0.9 mg/dLNormal0.5 - 1.3 mg/dLFTMC RemisolGFR/1.73 sq M.predicted among blacks MDRD (S/P/Bld) [Vol rate/Area]mL/min/1.73 v4Bvjjnk >=59mL/min/1.73 m2FT Chem SGFR/1.73 sq M.predicted among non-blacks MDRD (S/P/Bld) [Vol rate/Area]mL/min/1.73 t4Kxnqoj>=59mL/min/1.73 m2FT Chem S Globulin (S) [Mass/Vol]3.6 g/dLNormal1.4 - 4.0 gm/dLFTMC RemisolGlucose [Mass/Vol]100 mg/mAKfifuz90 - 199 mg/dLFTMC RemisolPotassium [Moles/Vol]3.9 mmol/LNormal3.5 - 5.3 mmol/LFTMC RemisolProstate specific Ag [Mass/Vol]1.1 ng/mL Normal0.1 - 3.5 ng/mLFTMC RemisolProtein [Mass/Vol]7.4 g/dLNormal6.0 - 7.8 gm/dL [facility] RemisolSodium [Moles/Vol]139 mmol/WOcxfxd259 - 145 mmol/LFTMC Remisol Triglyceride [Mass/Vol]34 mg/dLNormal<=149mg/dLFTMC RemisolUrea nitrogen [Mass/Vol]8 mg/dLNormal5 - 21 mg/dLFTMC RemisolUrea nitrogen/Creatinine [Mass ratio]9 mg/mgLow10 - 20FTMC RemisolHEMATOLOGYOrdered By: Eve on 04-70-3689Bamotrdue/100 WBC (Bld)0.6 %Normal0.0 - 2.0 %[facility] HemeAutoSS Basophils/Leukocytes Auto (Bld) [Pure # fraction]0.0 E9/LNormal0.0 - 0.2 E9/L [facility] HemeAutoSSEosinophils/100 WBC (Bld)2.1 %Normal0.0 - 8.0 %[facility] HemeAutoSS Eosinophils/Leukocytes Auto (Bld) [Pure # fraction]0.1 E9/LNormal0.0 - 0.5 E9/L [facility] HemeAutoSSLymphocytes/100 WBC (Bld)21.9 %Rrcvcd60.0 - 50.0 %[facility] HemeAutoSS Lymphocytes/Leukocytes Auto (Bld) [Pure # fraction]1.3 E9/LNormal1.0 - 4.0 E9/L [facility] HemeAutoSSMonocytes/100 WBC (Bld)8.5 %Normal4.0 - 14.0 %[facility] HemeAutoSS Monocytes/Leukocytes Auto (Bld) [Pure # fraction]0.5 E9/LNormal0.2 - 1.0 E9/L [facility] HemeAutoSSNeutrophils/100 WBC (Bld)66.9 %Sphped00.0 - 75.0 %[facility] HemeAutoSS Neutrophils/Leukocytes Auto (Bld) [Pure # fraction]4.1 E9/LNormal2.0 - 7.5 E9/L [facility] HemeAutoSSHEMATOLOGYOrdered By: Deandra Whitney on 50-78-6475Gpiwsxecvxw distribution width (RBC) [Ratio]14.9 %High10.9 - 14.2 %[facility] HemeAutoSSHematocrit (Bld) [Volume fraction]46.0 %Uvnxti33.7 - 49.0 %[facility] HemeAutoSSHemoglobin (Bld) [Mass/Vol]15.1 g/dXRhoxru87.5 - 17.5 gm/dLFTMC HemeAutoSSMCH (RBC) [Entitic mass]30.4 cyYfsjan36.0 - 34.0 pgFTMC HemeAutoSSMCHC (RBC) [Mass/Vol]32.8 g/dL Tipdke23.4 - 36.0 gm/dLFTMC HemeAutoSSMCV (RBC) [Entitic vol]92.7 mRObztcf87.0 - 100.0 fLFTMC HemeAutoSSPlatelet mean volume (Bld) [Entitic vol]8.7 fLNormal6.4 - 10.8 fLFTMC HemeAutoSSPlatelets (Bld) [#/Vol]206.0 E9/ZGfnnjj922.0 - 500.0 E9/L [facility] HemeAutoSSRBC (Bld) [#/Vol]5.0 E12/LNormal4.3 - 5.9 E12/LFTMC HemeAutoSSWBC corrected for nucl RBC Auto (Bld) [#/Vol]6.1 E9/LNormal4.0 - 11.0 E9/LFTMC HemeAutoSSUS CAROTID ARTERY BILATERALon 02-09-2868PJ LEFT CAROTID BULB, THERE IS ATHEROSCLEROTIC PLAQUE [...] FLOW AND THEREFORE ASSUMED TO BE OCCLUDED. [facility] RADIOLOGYEXAMINATION: CAROTID DUPLEX ULTRASONOGRAPHY CLINICAL HISTORY: CAROTID BRUITS [...] 138 cm/s Prox VERT cm/s ICA/CCA 0.89 [facility]Ohio[facility] Mat[facility] MD - 02/25/2022 EXAMINATION: CAROTID DUPLEX ULTRASONOGRAPHY [...] FLOW AND THEREFORE ASSUMED TO BE OCCLUDED. MDdatacor Phone: bON [employer] Phone: US CAROTID ARTERY BILATERALon [id number] Study observation (narrative)MDdatacor Phone: XR ABDOMEN (KUB) (SINGLE AP VIEW)on 07-28-2021 Two small stones left kidney unchanged. [facility] RIS CONSOLIDATEDEXAM: XR ABDOMEN (KUB) (SINGLE AP VIEW) HISTORY: Reason for exam:->kidney stones COMPARISON: CT abdomen and pelvis 01/12/2021. TECHNIQUE: KUB, 3 images. FINDINGS: A 5 mm and a 2 mm stone overlies the superior pole left kidney, unchanged. Aortoiliac stent graft. No stones over the bladder or expected course of the ureters. [facility] Claus Douglass Jr., MD - 07/28/2021 EXAM: XR ABDOMEN (KUB) (SINGLE AP VIEW) HISTORY: Reason for exam:->kidney stones COMPARISON: CT abdomen and pelvis 01/12/2021. TECHNIQUE: KUB, 3 images. FINDINGS: A 5 mm and a 2 mm stone overlies the superior pole left kidney, unchanged. Aortoiliac stent graft. No stones over the bladder or expected course of the ureters. IMPRESSION: Two small stones left kidney unchanged. [employer] Phone: radiology Study observation (narrative)[employer] Phone: XR ABDOMEN (KUB) (SINGLE AP VIEW)Ordered By: Claus Cornelius on [id number] Phone: us TRANSRECTALOrdered By: Flaco Quan on 02-10-2021 [employer] Phone: eErik hester Incoming Radiant Results From [email or web address] - 02/10/2021 10:32 AM EDT IMPRESSION: 1.Limited [...] the sigmoid colon with wall thickening are seen.[employer] Phone: [employer] Phone: basic Metabolic PanelOrdered By: Geoffrey Richards on 92-98-6725Hbsoh gap [Moles/Vol]11 mmol/L9 - 17 mmol/LMSourceMedical Phone: calcium [Mass/Vol]8.4 mg/dLLow8.6 - 10.4 mg/dLInnometrics Phone: chloride [Moles/Vol]106 mmol/L98 - 107 mmol/LMSourceMedical Phone: cO2 [Moles/Vol]25 mmol/L20 - 31 mmol/LMCommunity Medical Centersy [employer] Phone: creatinine [Mass/Vol]0.67 mg/dLLow0.70 - 1.20 mg/dL [employer] Phone: GFR >60>60 mL/minMagruder HospitalQuantopian Phone: GFR Non->60>60 mL/minMagruder HospitalQuantopian Phone: GFR/1.73 sq M.predicted MDRD (S/P/Bld) [Vol rate/Area] [facility] Phone: comment on above:Average GFR for 60-69 years old: 85 mL/min/1.73sq m Chronic Kidney Disease: <60 mL/min/1.73sq m Kidney failure: <15 mL/min/1.73sq m eGFR calculated using average adult body mass. Additional eGFR calculator available at: http://www.[employer]/multiple_crcl_2012.htm GFR/1.73 sq M.predicted MDRD (S/P/Bld) [Vol rate/Area]NOT REPORTEDMagruder HospitalQuantopian Phone: Glucose [Mass/Vol]99 mg/dL70 - 99 mg/dLMagruder HospitalQuantopian Phone: Interpretation and review of laboratory results AbnormalMagruder HospitalQuantopian Phone: potassium [Moles/Vol]4.1 mmol/L3.7 - 5.3 mmol/LMSourceMedical Phone: sodium [Moles/Vol]142 mmol/L135 - 144 mmol/LMCommunity Medical Centersy [employer] Phone: Urea nitrogen (BldV) [Mass/Vol]12 mg/dL8 - 23 mg/dL [facility] Work Phone: Urea nitrogen/Creatinine (Bld) [Mass ratio]NOT REPORTEDGeorgetown Behavioral Hospital [employer]wu [employer] Work Phone: [facility] [employer] Work Phone: basic Metabolic Profon 01-15-2021(cont.)NormalUniversity Hospitals Samaritan Medical CenterComment on above:Result Comment: Average GFR for 60-69 years old: 85 mL/min/1.73sq m Chronic Kidney Disease: <60 mL/min/1.73sq m Kidney failure: <15 mL/min/1.73sq m eGFR calculated using average adult body mass. Additional eGFR calculator available at: http://www.[employer]/multiple_crcl_2012.htmPerformed By: #### RAMSEY, BMP #### [facility] [address] [place] [address] Teles[employer] Advisor: Dandre Griffiths MDAnion gap [Moles/Vol]11 mmol/LNormal9-17[facility] Samaritan Medical CenterComment on above:Performed By: #### RAMSEY, BMP #### [facility] [address] [place] [address] [employer]eles[employer] Advisor: Dandre Griffiths MDCalcium [Mass/Vol]8.4 mg/dLLow8.6-10.4[facility]aritan Medical CenterComment on above:Performed By: #### CBC, BMP #### [facility] [address] [place] [address] [employer]eles[employer] Advisor: Dandre Griffiths MDChloride [Moles/Vol]106 mmol/NHlsvvo98-636YiyjnUniversity Hospitals Samaritan Medical CenterComment on above:Performed By: #### CBC, BMP #### [facility] [place] [address] Telesales Advisor: Dandre Griffiths MDCO2 [Moles/Vol]25 mmol/CKcxvxr80-78WztxxUniversity Hospitals Samaritan Medical CenterComment on above:Performed By: #### CBC, BMP #### [facility] [address] [place] [address] Teles[employer] Advisor: ALBA Washburnreatinine [Mass/Vol]0.67 mg/dLLow0.70-1.20[facility] Samaritan Medical CenterComment on above:Performed By: #### CBC, BMP #### [facility] [address] [place] [address] Teles[employer] Advisor: Dandre Griffiths MDGFR, Amer>60Normal>60[facility] Samaritan Medical CenterComment on above:Performed By: #### CBC, BMP #### [address] [address] Teles[employer] Advisor: Dandre Griffiths MDGFR,non Amer>60Normal>60[facility] Medical CenterComment on above:Performed By: #### CBC, BMP #### [address] [address] Teles[employer] Advisor: Dandre Griffiths MDGlucose [Mass/Vol]99 mg/jEVjgdak00-17AkvjrSan Leandro HospitalComment on above:Performed By: #### CBC, BMP #### [address] [address] Teles[employer] Advisor: Dandre Griffiths MDPotassium [Moles/Vol]4.1 mmol/LNormal3.7-5.3 [facility] Medical CenterComment on above:Performed By: #### CBC, BMP #### [facility] [address] [place] [address] Telesales Advisor: Dandre Griffiths MDSodium [Moles/Vol]142 mmol/CDlzubt193-051NaiecUniversity Hospitals Samaritan Medical CenterComment on above:Performed By: #### CBC, BMP #### [facility] [address] [place] [address] Telesales Advisor: Dandre Griffiths MDUrea nitrogen [Mass/Vol]12 mg/dLNormal8-23[facility] Medical CenterComment on above:Performed By: #### CBC, BMP #### [facility] [address] [place] [address] Telesales Advisor: AG Washburn/CRE RatioNOT REPORTEDNormal9-20[facility] Medical CenterComment on above:Performed By: #### CBC, BMP #### [place] [address] Teles[employer] Advisor: BENJAMÍN Washburntaging:NOT REPORTEDNormalUniversity Hospitals Samaritan Medical CenterComment on above:Performed By: #### CBC, BMP #### [place] [address] [employer]eles[employer] Advisor: Terrell Washburn [id number] distribution width (RBC) [Ratio]14.0 %Zvqaio82.8-14.4[facility] Medical CenterComment on above:Performed By: #### CBC, BMP #### [place] [address] Teles[employer] Advisor: Dandre Griffiths MDHematocrit (Bld) [Volume fraction]41.2 %Normal 40.7-50.3MSan Leandro HospitalComment on above:Performed By: #### CBC, BMP #### [place] [address] [employer]eles[employer] Advisor: Dandre Griffiths MDHemoglobin (Bld) [Mass/Vol]13.3 g/dLNormal 13.0-17.0[facility] Medical CenterComment on above:Performed By: #### CBC, BMP #### [address] [address] Telesales Advisor: DIANN WashburnCH (RBC) [Entitic mass]31.2 zbQxhjyn92.2-33.5 [facility] Medical CenterComment on above:Performed By: #### CBC, BMP #### [address] [address] Telesales Advisor: DIANN WashburnCHC (RBC) [Mass/Vol]32.3 g/jTXsktkh32.4-34.8 [facility] Medical CenterComment on above:Performed By: #### CBC, BMP #### [place] [address] Telesales Advisor: DIANN WashburnCV (RBC) [Entitic vol]96.7 iMTjztdk95.6-102.9 [facility] Medical CenterComment on above:Performed By: #### CBC, BMP #### [address] [address] Teles[employer] Advisor: JESS WashburnBC Automated0.0 per 100 WBCNormal0.0[facility]ar[facility] Medical CenterComment on above:Performed By: #### CBC, BMP #### [address] [address] Telesales Advisor: Jayden Washburn mean volume (Bld) [Entitic vol]10.5 fL Normal8.1-13.5[facility]ar[facility] Medical CenterComment on above:Performed By: #### CBC, BMP #### [address] [address] Teles[employer] Advisor: KASSIDY Washburnlatelets (Bld) [#/Vol]211 10*3/zZLjxlpj863-680 [facility] Medical CenterComment on above:Performed By: #### CBC, BMP #### [address] [address] Telesales Advisor: Dandre Griffiths MDRBC (Bld) [#/Vol]4.26 10*6/uLNormal4.21-5.77 [facility] Medical CenterComment on above:Performed By: #### CBC, BMP #### [facility] [address] [place], [place] [id number] Telesales Advisor: ADDIS Washburn (Bld) [#/Vol]9.1 10*3/uLNormal3.5-11.3[facility] CenterComment on above:Performed By: #### CBC, BMP #### [facility] [address] [place], [place] [id number] Telesales Advisor: ALBA WashburnOrdered By: Geoffrey Richards on 01-15-2021 Hematocrit (Bld) [Volume fraction]41.2 %40.7 - 50.3 %[employer] Phone: Hemoglobin.gastrointestinal spec 1 Ql (Stl)13.3 g/dL 13.0 - 17.0 g/dLInnometrics Phone: MCH (RBC) [Entitic mass]31.2 pg25.2 - 33.5 pgInnometrics Phone: MCHC (RBC) [Mass/Vol]32.3 g/dL28.4 - 34.8 g/dLInnometrics Phone: MCV (RBC) [Entitic vol]96.7 fL82.6 - 102.9 fLInnometrics Phone: NRBC Automated0.00.0 per 100 WBCInnometrics Phone: platelet distribution width (Bld) [Ratio]14.0 %11.8 - 14.4 %[employer] Phone: platelet mean volume (Bld) [Entitic vol]10.5 fL8.1 - 13.5 fLInnometrics Phone: Platelets (Bld) [#/Vol]211 10*3/uLEverpurse Work Phone: RBC (Bld) [#/Vol]4.26 10*6/uL4.21 - 5.77 m/[facility] [employer] Work Phone: [facility] ([place]) [#/Vol]9.1 10*3/AmbridgeAutoUncle Work Phone: [facility] [employer] Phone: cult,Aerobe/Anaerobeon [phone],Aerobe/Anaerobe Specimen Description .ABSCESS PELVIC Special Requests NOT REPORTED Direct [...] <=1 SUSCEPTIBLE Trimethoprim/Sulfa <=20 SUSCEPTIBLE Piperacillin/Tazobactam <=4 SUSCEPTIBLENormalUniversity Hospitals Samaritan Medical Center Comment on above:Performed By: #### CBC, CMPX, MG, WIL #### [facility] [address] [place] [address] Telesales Advisor: Dandre Griffiths [facility] WITH AUTO DIFFERENTIALOrdered By: Lidia Whitney on 06-69-9532Sfferaoc Eos #0.06MerQuantopian Phone: absolute Immature Granulocyte0.06Magruder HospitalQuantopian Phone: absolute Lymph #0.62LowMagruder HospitalQuantopian Phone: absolute Gilliam #0.72Magruder HospitalQuantopian Phone: basophils (Bld) [#/Vol]0.03 10*3/uLMagruder HospitalQuantopian Phone: basophils/100 WBC (Bld)0 %0 - 2 %[employer] Phone: differential TypeNOT REPORTEDMagruder HospitalQuantopian Phone: eosinophils/100 WBC (Bld)1 %1 - 4 %[employer] Phone: Hematocrit (Bld) [Volume fraction]44.2 %40.7 - 50.3 % [employer] Phone: Hemoglobin.gastrointestinal spec 1 Ql (Stl)14.3 g/dL 13.0 - 17.0 g/dLMagruder HospitalQuantopian Phone: Immature granulocytes/100 WBC (Bld)1 %Iept6VybkdQuantopian Phone: Interpretation and review of laboratory results AbnormalMagruder HospitalQuantopian Phone: lymphocytes/100 WBC (Bld)6 %Low24 - 43 %[employer] Phone: MCH (RBC) [Entitic mass]31.8 pg25.2 - 33.5 pgMagruder HospitalQuantopian Phone: MCHC (RBC) [Mass/Vol]32.4 g/dL28.4 - 34.8 g/dLMagruder HospitalQuantopian Phone: MCV (RBC) [Entitic vol]98.2 fL82.6 - 102.9 fLMagruder HospitalQuantopian Phone: Monocytes/100 WBC (Bld)7 %3 - 12 %[employer] Phone: NRBC Automated0.00.0 per 100 WBCMagruder HospitalQuantopian Phone: Platelet distribution width (Bld) [Ratio]14.2 %11.8 - 14.4 %[employer] Phone: Platelet EstimateNOT REPORTEDMagruder HospitalQuantopian Phone: [phone] mean volume (Bld) [Entitic vol]10.4 fL8.1 - 13.5 fLMagruder HospitalQuantopian Phone: [phone] (Bld) [#/Vol]218 10*3/uLMagruder HospitalQuantopian Phone: RBC (Bld) [#/Vol]4.50 10*6/uL4.21 - 5.77 m/X BODYMagruder HospitalQuantopian Phone: RBC (Bld) [#/Vol]NOT REPORTEDMagruder HospitalQuantopian Phone: [phone] neutrophils/100 WBC (Bld)86 %High36 - 65 % [employer] Phone: Segs Absolute8.94HighMagruder HospitalQuantopian Phone: [phone] (Bld) [#/Vol]10.4 10*3/[facility]bridgeQuant[facility] Phone: [phone] (Bld) [#/Vol]NOT REPORTEDMagruder HospitalQuantopian Phone: [facility] Phone: CBC with Diffon [id number]. Basophil0.03 k/uLNormal 0.00-0.20[facility]aritan Medical CenterComment on above:Performed By: #### CDP #### [facility] [place] [address] Telesales Advisor: Jc Washburn.Imm.Granulocyte0.06 k/uLNormal0.00-0.30[facility]als Samaritan Medical CenterComment on above:Performed By: #### CDP #### [place] [address] Telesales Advisor: Jc Washburn.Neutrophil (Seg)8.94 k/uLHigh1.50-8.10[facility] Medical CenterComment on above:Performed By: #### CDP #### [place] [address] [employer]elesales Advisor: Dandre Griffiths MDBasophils/100 WBC (Bld)0 %Normal0-2MSan Leandro HospitalComment on above:Performed By: #### CDP #### [place] [address] Telesales Advisor: Dandre Griffiths MDEosinophils (Bld) [#/Vol]0.06 10*3/uLNormal 0.00-0.44[facility] Medical CenterComment on above:Performed By: #### CDP #### [place] [address] [employer]elesales Advisor: Dandre Griffiths MDEosinophils/100 WBC (Bld)1 %Normal1-4[facility] Medical CenterComment on above:Performed By: #### CDP #### [place] [address] Telesales Advisor: Dandre Griffiths MDErythrocyte distribution width (RBC) [Ratio]14.2 %Iglsgm70.8-14.4[facility] Medical CenterComment on above:Performed By: #### CDP #### [place] [address] Telesales Advisor: Dandre Griffiths MDHematocrit (Bld) [Volume fraction]44.2 %Normal 40.7-50.3MSan Leandro HospitalComment on above:Performed By: #### CDP #### [address] [address] Telesales Advisor: Dandre Griffiths MDHemoglobin (Bld) [Mass/Vol]14.3 g/dLNormal 13.0-17.0[facility] Medical CenterComment on above:Performed By: #### CDP #### [address] [address] Telesales Advisor: Dandre Griffiths MDImmature granulocytes/100 WBC (Bld)1 %Tneo1LgjffUniversity Hospitals Samaritan Medical CenterComment on above:Performed By: #### CDP #### [address] [address] Telesales Advisor: Dandre Griffiths MDLymphocytes (Bld) [#/Vol]0.62 10*3/uLLow 1.10-3.70[facility] CenterComment on above:Performed By: #### CDP #### [address] [address] Telesales Advisor: Jeremy Washburnmphocytes/100 WBC (Bld)6 %Lgg34-07TfsfuUniversity Hospitals Samaritan Medical CenterComment on above:Performed By: #### CDP #### [address] [address] Telesales Advisor: DIANN WashburnCH (RBC) [Entitic mass]31.8 dfXpiqjj50.2-33.5 [facility] CenterComment on above:Performed By: #### CDP #### [address] [address] Telesales Advisor: DIANN WashburnCHC (RBC) [Mass/Vol]32.4 g/wWQjvyon13.4-34.8 [facility] CenterComment on above:Performed By: #### CDP #### [address] [address] Telesales Advisor: DIANN WashburnCV (RBC) [Entitic vol]98.2 xCKjpqvb06.6-102.9 [facility] CenterComment on above:Performed By: #### CDP #### [address] [address] Telesales Advisor: DIANN Washburnonocytes (Bld) [#/Vol]0.72 10*3/uLNormal 0.10-1.20[facility] Medical CenterComment on above:Performed By: #### CDP #### [place] [address] Telesales Advisor: DIANN Washburnonocytes/100 WBC (Bld)7 %Normal3-12[facility] Medical CenterComment on above:Performed By: #### CDP #### [place] [address] Telesales Advisor: Dandre Griffiths MDNeutrophil (Seg)86 %Riyh26-43YpwopUniversity Hospitals Samaritan Medical CenterComment on above:Performed By: #### CDP #### [place] [address] Telesales Advisor: Dandre Griffiths MDNRBC Automated0.0 per 100 WBCNormal0.0[facility] Medical CenterComment on above:Performed By: #### CDP #### [place] [address] [employer]elesales Advisor: Dandre Griffiths MDPlatelet mean volume (Bld) [Entitic vol]10.4 fL Normal8.1-13.5[facility] Medical CenterComment on above:Performed By: #### CDP #### [address] [address] Telesales Advisor: Dandre Griffiths MDPlatelets (Bld) [#/Vol]218 10*3/tGBxgdjb430-998 [facility] CenterComment on above:Performed By: #### CDP #### [facility] [address] [place] [address] Telesales Advisor: CARLYN Washburn (Bld) [#/Vol]4.50 10*6/uLNormal4.21-5.77 [facility] CenterComment on above:Performed By: #### CDP #### [facility] [address] [place] [address] Telesales Advisor: VISH Washburn (Bld) [#/Vol]10.4 10*3/uLNormal3.5-11.3MSan Leandro HospitalComment on above:Performed By: #### CDP #### [facility] [address] [place] [address] Telesales Advisor: Jordy Washburn PerformedNOT REPORTEDNormalUniversity Hospitals Samaritan Medical CenterComment on above:Performed By: #### CDP #### [facility] [employer] [address] [place] [address] Telesales Advisor: Jayden Washburn EstimateNOT REPORTEDAvita Health System Bucyrus HospitalComment on above:Performed By: #### CDP #### [facility] [employer] [address] [place] [address] Telesales Advisor: CARLYN Washburn morphology finding Nom (Bld)NOT REPORTED NormalUniversity Hospitals Samaritan Medical CenterComment on above:Performed By: #### CDP #### [facility] [address] [place] [address] Telesales Advisor: VISH Washburn MorphologyNOT REPORTEDAvita Health System Bucyrus HospitalComment on above:Performed By: #### CDP #### [facility] [employer] [address] [place] [address] Telesales Advisor: Terrell Washburn [phone] distribution width (RBC) [Ratio]14.3 %Vmwapx60.8-14.4[facility] Medical CenterComment on above:Performed By: #### CBC, CMPX, MG, WIL #### [facility] [employer] [address] [place] [address] Telesales Advisor: Dandre Griffiths MDHematocrit (Bld) [Volume fraction]43.4 %Normal 40.7-50.3MSan Leandro HospitalComment on above:Performed By: #### CBC, CMPX, MG, WIL #### [facility] [employer] [address] [place] [address] Telesales Advisor: Dandre Griffiths MDHemoglobin (Bld) [Mass/Vol]13.9 g/dLNormal 13.0-17.0[facility] CenterComment on above:Performed By: #### CBC, CMPX, MG, WIL #### [facility] [employer] [address] [place] [address] Telesales Advisor: DIANN WashburnCH (RBC) [Entitic mass]31.4 jpMxkqjq01.2-33.5 [facility] CenterComment on above:Performed By: #### CBC, CMPX, MG, WIL #### [facility] [employer] [address] [place] [address] Telesales Advisor: AYANNA WashburnC (RBC) [Mass/Vol]32.0 g/yFAkckdd10.4-34.8 [facility] CenterComment on above:Performed By: #### CBC, CMPX, MG, WIL #### [facility] [employer] [address] [place] [address] Telesales Advisor: DIANN WashburnCV (RBC) [Entitic vol]98.0 oTBilvka08.6-102.9 [facility] CenterComment on above:Performed By: #### CBC, CMPX, MG, WIL #### [facility] [address] [place] [address] Telesales Advisor: VIVIAN Washburn Automated0.0 per 100 WBCNormal0.0[facility] Medical CenterComment on above:Performed By: #### CBC, CMPX, MG, WIL #### [facility] [address] [place] [address] Telesales Advisor: Austin Washburntelet mean volume (Bld) [Entitic vol]10.5 fL Normal8.1-13.5[facility] Medical CenterComment on above:Performed By: #### CBC, CMPX, MG, WIL #### [facility] [address] [place] [address] Telesales Advisor: KASSIDY Washburnlatelets (Bld) [#/Vol]179 10*3/rZOkngox870-207 [facility] CenterComment on above:Performed By: #### CBC, CMPX, MG, WIL #### [facility] [address] [place] [address] Telesales Advisor: FRANKI WashburnBC (Bld) [#/Vol]4.43 10*6/uLNormal4.21-5.77 [facility] CenterComment on above:Performed By: #### CBC, CMPX, MG, WIL #### [facility] [address] [place] [address] Telesales Advisor: VISH Wasbhurn (Bld) [#/Vol]15.4 10*3/uLHigh3.5-11.3MSan Leandro HospitalComment on above:Performed By: #### CBC, CMPX, MG, WIL #### [facility] [address] [place] [address] Telesales Advisor: GAIL WashburnOrdered By: Elli Banuelos on 01-13-2021 Hematocrit (Bld) [Volume fraction]43.4 %40.7 - 50.3 %[employer] Phone: Hemoglobin.gastrointestinal spec 1 Ql (Stl)13.9 g/dL 13.0 - 17.0 g/dLMagruder HospitalQuantopian Phone: Interpretation and review of laboratory results AbnormalMagruder HospitalQuantopian Phone: MCH (RBC) [Entitic mass]31.4 pg25.2 - 33.5 pgMagruder HospitalQuantopian Phone: MCHC (RBC) [Mass/Vol]32.0 g/dL28.4 - 34.8 g/dLMagruder HospitalQuantopian Phone: MCV (RBC) [Entitic vol]98.0 fL82.6 - 102.9 fLInnometrics Phone: NRBC Automated0.00.0 per 100 WBCMagruder HospitalQuantopian Phone: platelet distribution width (Bld) [Ratio]14.3 %11.8 - 14.4 %[employer] Phone: platelet mean volume (Bld) [Entitic vol]10.5 fL8.1 - 13.5 fLMagruder HospitalQuantopian Phone: platelets (Bld) [#/Vol]179 10*3/[employer] Phone: RBC (Bld) [#/Vol]4.43 10*6/uL4.21 - 5.77 m/[employer] Phone: WBC (Bld) [#/Vol]15.4 10*3/uLMcLean HospitalQuantopian Phone: [facility]ruder HospitalQuantopian Phone: cT ABSCESS DRAINAGEOrdered By: Lidia Whitney on [phone] CT guided placement of a 8 English pelvic drainage catheter via right transgluteal fashion.[employer] Phone: eKatherine hester Incoming Radiant Results From [employer] - 01/13/2021 4:22 PM EDT PROCEDURE: CT [...] the procedure including risks, benefits, and alternatives. [place] protocol was followed. All elements of maximal [...] wire was used to place a 8 English all-purpose locking drainage catheter after the tract was dilated. Approximately 60 cc purulent material was drained. The catheter was sutured to the skin and the patient tolerated the procedure well. The catheter was attached to COLTON suction drainage. Dose modulation, iterative reconstruction, and/or weight based adjustment of the mA/kV was utilized to reduce the radiation dose to as low as reasonably achievable. FINDINGS: A total of 60 mL of purulent fluid was removed and sent for diagnostic tests. Postprocedural CT demonstrated complete collapse of the cavity. IMPRESSION: Successful CT guided placement of a 8 English pelvic drainage catheter via right transgluteal fashion. [facility] Work Phone: [facility] [employer] Work Phone: comp Metabolic Pr/rfx MGon 01-13-2021(cont.)Normal [facility] Medical CenterComment on above:Result Comment: Average GFR for 60-69 years old: 85 mL/min/1.73sq m Chronic Kidney Disease: <60 mL/min/1.73sq m Kidney failure: <15 mL/min/1.73sq m eGFR calculated using average adult body mass. Additional eGFR calculator available at: http://www.Conviva.Inivata/multiple_crcl_2012.htmPerformed By: #### CBC, CMPX, MG, WIL #### [facility] [address] [place] [address] Teles[employer] Advisor: Dandre Griffiths MDAlbumin [Mass/Vol]3.3 g/dLLow3.5-5.2MSan Leandro HospitalComment on above:Performed By: #### CBC, CMPX, MG, WIL #### [facility] [address] [place] [address] Teles[employer] Advisor: Dandre Griffiths MDAlbumin/Glob Ratio1.8Dzxhgm1.0-2.5[facility] Medical CenterComment on above:Performed By: #### CBC, CMPX, MG, WIL #### [address] [address] Telesales Advisor: Dandre Griffiths MDAlkaline Yriz923 U/FAeaxem18-617UqjyeUniversity Hospitals Samaritan Medical CenterComment on above:Performed By: #### CBC, CMPX, MG, WIL #### [address] [address] [employer]eles[employer] Advisor: Dandre Griffiths MDALT [Catalytic activity/Vol]12 U/LNormal5-41 [facility] CenterComment on above:Performed By: #### CBC, CMPX, MG, WLI #### [facility] [address] [place] [address] Telesales Advisor: Dandre Griffiths MDAnion gap [Moles/Vol]11 mmol/LNormal9-17[facility] CenterComment on above:Performed By: #### CBC, CMPX, MG, WIL #### [address] [address] [employer]eles[employer] Advisor: Dandre Griffiths MDAST [Catalytic activity/Vol]14 U/LNormal<40[facility] CenterComment on above:Performed By: #### CBC, CMPX, MG, WIL #### [facility] [address] [place] [address] Telesales Advisor: Dandre Griffiths MDBilirubin [Mass/Vol]0.78 mg/dLNormal0.3-1.2MSan Leandro HospitalComment on above:Performed By: #### CBC, CMPX, MG, WIL #### [facility] [address] [place] [address] Telesales Advisor: Dandre Griffiths MDCalcium [Mass/Vol]8.5 mg/dLLow8.6-10.4[facility] CenterComment on above:Performed By: #### CBC, CMPX, MG, WIL #### [facility] [address] [place] [address] Telesales Advisor: Dandre Griffiths MDChloride [Moles/Vol]104 mmol/IUaokjp92-067AhuhiUniversity Hospitals Samaritan Medical CenterComment on above:Performed By: #### CBC, CMPX, MG, WIL #### [facility] [address] [place] [address] Teles[employer] Advisor: Dandre Griffiths MDCO2 [Moles/Vol]23 mmol/IRkafeb16-13VvjsmUniversity Hospitals Samaritan Medical CenterComment on above:Performed By: #### CBC, CMPX, MG, WIL #### [facility] [address] [place] [address] Telesales Advisor: Dandre Griffiths MDCreatinine [Mass/Vol]0.79 mg/dLNormal0.70-1.20 [facility] CenterComment on above:Performed By: #### CBC, CMPX, MG, WIL #### [facility] [address] [place] [address] Telesales Advisor: Dandre Griffiths MDGFR, Amer>60Normal>60MerLong Beach Community HospitalComment on above:Performed By: #### CBC, CMPX, MG, WIL #### [facility] [address] [place] [address] Telesales Advisor: Dandre Griffiths MDGFR,non Amer>60Normal>60[facility] CenterComment on above:Performed By: #### CBC, CMPX, MG, WIL #### [facility] [address] [place] [address] Teles[employer] Advisor: Dandre Griffiths MDGlucose [Mass/Vol]93 mg/oPXistth61-58FrehiSan Leandro HospitalComment on above:Performed By: #### CBC, CMPX, MG, WIL #### [facility] [address] [address] [employer]eles[employer] Advisor: Dandre Griffiths MDPotassium [Moles/Vol]3.9 mmol/LNormal3.7-5.3 [facility] CenterComment on above:Performed By: #### CBC, CMPX, MG, WIL #### [facility] [address] [place] [address] Teles[employer] Advisor: Dandre Griffiths MDProtein [Mass/Vol]6.6 g/dLNormal6.4-8.3MSan Leandro HospitalComment on above:Performed By: #### CBC, CMPX, MG, WIL #### [facility] [address] [place] [address] Telesales Advisor: Dandre Griffiths MDSodium [Moles/Vol]138 mmol/JWxvqke222-261NwdzfUniversity Hospitals Samaritan Medical CenterComment on above:Performed By: #### CBC, CMPX, MG, WIL #### [facility] [address] [place] [address] Telesales Advisor: Dandre Griffiths MDUrea nitrogen [Mass/Vol]15 mg/dLNormal8-23[facility] CenterComment on above:Performed By: #### CBC, CMPX, MG, WIL #### [facility] [address] [place] [address] [employer]elesales Advisor: AG Washburn/CRE RatioNOT REPORTEDNormal9-20[facility] Medical CenterComment on above:Performed By: #### CBC, CMPX, MG, WIL #### [facility] [address] [place] [address] [employer]eles[employer] Advisor: BENJAMÍN Washburntaging:NOT REPORTEDNormalUniversity Hospitals Samaritan Medical CenterComment on above:Performed By: #### CBC, CMPX, MG, WIL #### [facility] [address] [place] [address] [employer]eles[employer] Advisor: ALBA Washburnomprehensive Metabolic Panel w/ Reflex to MG Ordered By: Elli Banuelos on [phone] [Mass/Vol]3.3 g/dLLow3.5 - 5.2 g/dLGeorgetown Behavioral Hospital [employer] Work Phone: albumin/Globulin [Mass ratio]1.0 {ratio}[facility] [employer] Phone: aLP (Bld) [Catalytic activity/Vol]101 U/L40 - 129 U/L [facility] [employer] Phone: aLT [Catalytic activity/Vol]12 U/L5 - 41 U/LMchildren's hospital for rehabilitation [employer] Work Phone: anion gap [Moles/Vol]11 mmol/L9 - 17 mmol/LMaultman alliance community hospitaly [employer] Work Phone: aST [Catalytic activity/Vol]14 U/L<40[facility] HospitalAuto[facility] Work Phone: bilirubin [Mass/Vol]0.78 mg/dL0.3 - 1.2 mg/dLGeorgetown Behavioral Hospital [employer] Work Phone: calcium [Mass/Vol]8.5 mg/dLLow8.6 - 10.4 mg/dLMagruder HospitalQuantopian Phone: chloride [Moles/Vol]104 mmol/L98 - 107 mmol/LMercy [employer] Work Phone: cO2 [Moles/Vol]23 mmol/L20 - 31 mmol/LMaultman alliance community hospitaly [employer] Phone: creatinine [Mass/Vol]0.79 mg/dL0.70 - 1.20 mg/dLMagruder HospitalQuantopian Phone: Free PSA/Total PSA [Mass fraction]6.6 g/dL6.4 - 8.3 g/dLMagruder HospitalQuantopian Phone: GFR >60>60 mL/minMagruder HospitalQuantopian Phone: GFR Non->60>60 mL/minMagruder HospitalQuantopian Phone: GFR/1.73 sq M.predicted MDRD (S/P/Bld) [Vol rate/Area] [facility] Phone: comment on above:Average GFR for 60-69 years old: 85 mL/min/1.73sq m Chronic Kidney Disease: <60 mL/min/1.73sq m Kidney failure: <15 mL/min/1.73sq m eGFR calculated using average adult body mass. Additional eGFR calculator available at: http://www.Conviva.Inivata/multiple_crcl_2012.htm GFR/1.73 sq M.predicted MDRD (S/P/Bld) [Vol rate/Area]NOT REPORTEDMagruder HospitalQuantopian Phone: Glucose [Mass/Vol]93 mg/dL70 - 99 mg/dLMagruder HospitalQuantopian Phone: potassium [Moles/Vol]3.9 mmol/L3.7 - 5.3 mmol/LMaultman alliance community hospitaly [employer] Phone: sodium [Moles/Vol]138 mmol/L135 - 144 mmol/LMercy [employer] Work Phone: Urea nitrogen (BldV) [Mass/Vol]15 mg/dL8 - 23 mg/dL [facility] Work Phone: Urea nitrogen/Creatinine (Bld) [Mass ratio]NOT REPORTEDMet[facility] Work Phone: cult,Fluidon [id number],FluidSpecimen Description .ASPIRATE Special Requests NOT REPORTED Direct Exam NOT REPORTED Culture DUE TO THE SPECIMEN TYPE, THE ORDER WAS CANCELED AND REORDERED. PLEASE REFER TO: ANAEROBIC AEROBIC CULTURE Report Status FINAL 01/13/2021NormalUniversity Hospitals Samaritan Medical CenterComment on above:Performed By: #### FLCU #### [facility] [place] [address] [employer]eles[employer] Advisor: Dandre Griffiths, MDCulture, Body FluidOrdered By: Kendall Thomason on [id number] identified Cx Nom (Unsp spec)DUE TO THE SPECIMEN TYPE, THE ORDER WAS CANCELED AND REORDERED. PLEASE REFER TO: ANAEROBIC AEROBIC C ULTUREMet[facility]health [facility] [employer] Phone: direct ExamNOT REPORTEDMet[facility]health [facility] Work Phone: special RequestsNOT REPORTEDMet[facility] [employer] Phone: specimen Description.ASPIRATEMetrohealth Cleveland Heights Medical Center Work Phone: [facility] [employer] Phone: Magnesiumon [id number] [Mass/Vol]1.9 mg/dL Normal1.6-2.6Maultman alliance community hospitaly [facility] Medical CenterComment on above:Performed By: #### CBC, CMPX, MG, WIL #### [facility] [address] [place] [address] [employer]eles[employer] Advisor: Dandre Griffiths MDMagnesiumOrdered By: Elli Banuelos on 01-13-2021 Magnesium [Mass/Vol]1.9 mg/dL1.6 - 2.6 mg/dLMetrohealth Cleveland Heights [facility] Center Work Phone: No Panel InformationOrdered By: Elli Banuelos on [id number] and review of laboratory resultsAbnormalGeorgetown Behavioral Hospital [employer] Work Phone: [facility] [employer] Phone: [phone]-ALPOvpgrbz By: Lidia Whitney on [phone] Coag (Bld) [Relative time]1.0 {INR}[facility] [employer] Phone: comment on above: Therapeutic Range: Moderate Anticoagulant Intensity: INR = 2.0-3.0 High Anticoagulant Intensity: INR = 2.5-3.5 PT Coag (PPP) [Time]11.1 [facility] [employer] Phone: [facility] [employer] Phone: pTon [phone] Coag (PPP) [Relative time]1.0 {INR} NormalUniversity Hospitals Samaritan Medical CenterComment on above:Result Comment: Therapeutic Range: Moderate Anticoagulant Intensity: INR = 2.0-3.0 High Anticoagulant Intensity: INR = 2.5-3.5Performed By: #### PT #### [facility] [address] [place], [place] [id number] [employer] Advisor: BELLA Washburn Coag (PPP) [Time]11.1 sNormal9.1-12.3MSan Leandro HospitalComment on above:Performed By: #### PT #### [facility] [address] [place], [place] [address] [employer] Advisor: Kerwin WashburnsphorusOrdered By: Elli Banuelos on [phone] [Mass/Vol]2.2 mg/dLLow2.5 - 4.5 mg/dLMetrohealth [facility] [employer] Phone: phosphorus, Inorg.on [phone], Inorg.2.2 mg/dLLow2.5-4.5[facility] Medical CenterComment on above:Performed By: #### CBC, CMPX, MG, WIL #### [facility] [address] [place] [address] [employer]eles[employer] Advisor: Dandre Griffiths [facility] Auto DifferentialOrdered By: Shanel Fritz on [phone] Bands #2.10HighMerAutoUncle Work Phone: absolute Eos #[employer] Work Phone: absolute Immature GranulocyteNOT REPORTEDMerAutoUncle Work Phone: absolute Lymph #1.17MerQuantopian Phone: absolute Gilliam #0.93MerQuantopian Phone: bands9 %0 - 10 %[employer] Work Phone: basophils (Bld) [#/Vol]0 - 2 %[employer] Work Phone: basophils AbsoluteMerAutoUncle Work Phone: differential TypeNOT REPORTEDMagruder HospitalAutoUncle Work Phone: eosinophils %0 - 5 %[employer] Phone: Hematocrit (Bld) [Volume fraction]46.9 %41 - 53 %[employer] Phone: Hemoglobin.gastrointestinal spec 1 Ql (Stl)15.7 g/dL 13.5 - 17.5 g/dLMagruder HospitalQuantopian Phone: Immature GranulocytesNOT REPORTED0 %[employer] Phone: Interpretation and review of laboratory results AbnormalInnometrics Phone: lymphocytes/100 WBC (Bld)5 %Low13 - 44 %[employer] Phone: MCH (RBC) [Entitic mass]32.2 pg26 - 34 pgEverpurse Work Phone: MCHC (RBC) [Mass/Vol]33.5 g/dL31 - 37 g/dLMagruder HospitalAutoUncle Work Phone: MCV (RBC) [Entitic vol]96.0 fL80 - 100 fLMagruder HospitalQuantopian Phone: Monocytes/100 WBC (Bld)4 %Low5 - 9 %[employer] Work Phone: Morphology Mohit (Bld) [Interp]Manual Differential PerformedMagruder HospitalQuantopian Phone: NRBC AutomatedNOT REPORTEDper 100 WBCMagruder HospitalQuantopian Phone: platelet distribution width (Bld) [Ratio]15.4 %High 12.1 - 15.2 %[employer] Phone: platelet EstimateNOT REPORTEDMagruder HospitalQuantopian Phone: platelet mean volume (Bld) [Entitic vol]NOT REPORTED 6.0 - 12.0 [facility] HospitalQuant[facility] Phone: Platelets (Bld) [#/Vol]200 10*3/uLMagruder HospitalAutoUncle Work Phone: RBC (Bld) [#/Vol]4.89 10*6/uL4.5 - 5.9 m/uLMagruder HospitalQuantopian Phone: RBC (Bld) [#/Vol]NOT REPORTEDMagruder HospitalAutoUncle Work Phone: Segmented neutrophils/100 WBC (Bld)82 %High39 - 75 % [employer] Work Phone: Segs Oznenxli98.10HighMagruder HospitalQuantopian Phone: WBC (Bld) [#/Vol]23.3 10*3/uLCritically highMagruder HospitalQuantopian Phone: WBC (Bld) [#/Vol]NOT REPORTEDMagruder HospitalAutoUncle Work Phone: [employer] Work Phone: ct ABDOMEN PELVIS W IV CONTRAST Additional Contrast? NoneOrdered By: Shanel Fritz on . Acute sigmoid diverticulitis with 5.5 x 6.2 [...] atherosclerosis. 4. Sequela of old granulomatous disease. [employer] Phone: ct abdomen and pelvis with contrast CLINICAL: Abdominal [...] splenic granulomata. Gallbladder is normal. There is nointrahepatic or extrahepatic biliary ductal dilatation. The pancreas [...] wedging of the T12 vertebral body, age indeterminate.[employer] Work Phone: edi, [facility] Incoming Radiant Results From [email or web address] - 01/12/2021 10:[address] abdomen [...] atherosclerosis. 4. Sequela of old granulomatous disease. [employer] Phone: [employer] Phone: comprehensive Metabolic Panel w/ Reflex to MGOrdered By: Shanel Fritz on [phone] [Mass/Vol]3.9 g/dL3.5 - 5.2 g/dLMagruder HospitalQuantopian Phone: albumin/Globulin RatioNOT REPORTEDMagruder HospitalQuantopian Phone: aLP (Bld) [Catalytic activity/Vol]120 U/L40 - 129 U/L [employer] Phone: aLT [Catalytic activity/Vol]15 U/L5 - 41 U/LMSourceMedical Phone: anion gap [Moles/Vol]11 mmol/L9 - 17 mmol/LMSourceMedical Phone: aST [Catalytic activity/Vol]17 U/L<40Mag[facility] HospitalQuant[facility] Phone: bilirubin [Mass/Vol]0.89 mg/dL0.30 - 1.20 mg/dLMagruder HospitalQuantopian Phone: calcium [Mass/Vol]9.6 mg/dL8.6 - 10.4 mg/dLMagruder HospitalQuantopian Phone: chloride [Moles/Vol]103 mmol/L98 - 107 mmol/LMCommunity Medical Centersy [employer] Work Phone: cO2 [Moles/Vol]23 mmol/L20 - 31 mmol/LMaultman alliance community hospitaly [employer] Phone: creatinine [Mass/Vol]0.75 mg/dL0.70 - 1.20 mg/dLMagruder HospitalQuantopian Phone: Free PSA/Total PSA [Mass fraction]8.0 g/dL6.4 - 8.3 g/dLMagruder HospitalQuantopian Phone: GFR >60>60 mL/minMagruder HospitalQuantopian Phone: GFR Non->60>60 mL/minMagruder HospitalQuantopian Phone: GFR/1.73 sq M.predicted MDRD (S/P/Bld) [Vol rate/Area] [facility] Phone: comment on above:Average GFR for 60-69 years old: 85 mL/min/1.73sq m Chronic Kidney Disease: <60 mL/min/1.73sq m Kidney failure: <15 mL/min/1.73sq m eGFR calculated using average adult body mass. Additional eGFR calculator available at: http://www.Conviva.Inivata/multiple_crcl_2012.htm GFR/1.73 sq M.predicted MDRD (S/P/Bld) [Vol rate/Area]NOT REPORTEDMagruder HospitalQuantopian Phone: Glucose [Mass/Vol]125 mg/pCCkvu83 - 99 mg/dLMagruder HospitalQuantopian Phone: Interpretation and review of laboratory results AbnormalMagruder HospitalQuantopian Phone: potassium [Moles/Vol]4.0 mmol/L3.7 - 5.3 mmol/LMchildren's hospital for rehabilitation [employer] Work Phone: sodium [Moles/Vol]137 mmol/L135 - 144 mmol/LMaultman alliance community hospitaly Health Work Phone: Urea nitrogen (BldV) [Mass/Vol]16 mg/dL8 - 23 mg/dL [facility] [employer] Work Phone: Urea nitrogen/Creatinine (Bld) [Mass ratio]21HighGeorgetown Behavioral Hospital [employer] Work Phone: lactic AcidOrdered By: Shanel Fritz on 01-12-2021 Lactate [Moles/Vol]0.8 mmol/L0.5 - 2.2 mmol/LMaultman alliance community hospitaly Health Work Phone: [facility] [employer] Work Phone: lipaseOrdered By: Shanel Fritz on 25-99-4066Ireugs [Catalytic activity/Vol]14 U/L13 - 60 U/[facility] Work Phone: Microscopic UrinalysisOrdered By: Shanel Fritz on 01-12-2021-[facility] [employer] Work Phone: amorphous, UANOT REPORTEDNoneMey Health Work Phone: bacteria, UANOT REPORTEDNoneMey Health Work Phone: casts UANOT REPORTED/LPFMercy Health Work Phone: crystals, UANOT REPORTEDNone /HPFMercy Health Work Phone: epithelial Cells UANOT REPORTED/HPFMer Health Work Phone: Interpretation and review of laboratory results AbnormalGeorgetown Behavioral Hospital Health Work Phone: Mucus, UA1+AbnormalNoneMemetrohealth main campus medical center Health Work Phone: Other Observations UANOT REPORTEDNOT REQ.[facility] [employer] Work Phone: rBC, UA0 TO 2[facility] Work Phone: renal Epithelial, UANOT REPORTED0 /HPFMercy Health Work Phone: Trichomonas, UANOT REPORTEDNoneMercy Health Work Phone: WBC, UA0 TO 20 /HPFMercy Health Work Phone: Yeast, UANOT REPORTEDNoneMercy Health Work Phone: [facility] Work Phone: No Panel InformationOrdered By: Shanel Fritz on [id number] Work Phone: Urinalysis, reflex to microscopicOrdered By: Shanel Fritz on 61-61-4390Urmujauzj UrineNegativeNEGATIVEGeorgetown Behavioral Hospital Health Work Phone: color, UAAMBERAbnormalYELLOWGeorgetown Behavioral Hospital Health Work Phone: Glucose, UrNegativeNEGATIVEGeorgetown Behavioral Hospital Health Work Phone: Interpretation and review of laboratory results AbnormalGeorgetown Behavioral Hospital Health Work Phone: Ketones Ql (U)SMALLAbnormalNEGATIVEGeorgetown Behavioral Hospital Health Work Phone: leukocyte esterase Test strip Ql (U)NegativeNEGATIVE [facility] Work Phone: Nitrite, UrineNegativeNEGATIVEGeorgetown Behavioral Hospital Health Work Phone: pH, UA6.5Mer Health Work Phone: protein, UATRACEAbnormalNEGATIVEGeorgetown Behavioral Hospital Health Work Phone: specific [place], UA1.010Mer Health Work Phone: Turbidity UACLEARCLEARMer Health Work Phone: Urinalysis CommentsGeorgetown Behavioral Hospital Health Work Phone: Urine HgbTRACEAbnormalNEGATIVEGeorgetown Behavioral Hospital Health Work Phone: Urobilinogen, Urine4 mg/dLAbnormalNormalMercy Health Work Phone: [facility] Work Phone: FLUORO FOR SURGICAL PROCEDURESon [id number] FOR SURGICAL PROCEDURESRadiology exam is complete. No Radiologist dictation. Please follow up with ordering provider. Final resultNoMercy Health Kings Mills HospitalOPERATIVE REPORTon [id number] REPORT[address] [address] OPERATIVE REPORT PATIENT NAME: JASMEET PERDUE : 1960 MED REC NO: [id number] ROOM: ACCOUNT NO: [id number] ADMIT DATE: 06/18/2020 PROVIDER: Ankita Yip DATE OF PROCEDURE: 06/18/2020 SURGEON: Dr. Ankita Yip. RESOURCE ROOM TEACHER: None. PREOPERATIVE DIAGNOSES: 1. Left ureteral calculus. 2. Left renal calculus. POSTOPERATIVE DIAGNOSES: 1. Left ureteral calculus. 2. Left renal calculus. PROCEDURES PERFORMED: Cystoscopy, left ureteroscopy, left Holmium laser lithotripsy, left ureteral stent exchange. ANESTHESIA: General. COMPLICATIONS: None. ESTIMATED BLOOD LOSS: Minimal. SPECIMENS: None. PROSTHESIS: A 6-English x 26-cm double-J ureteral stent. DISPOSITION: Stable. [...] obtained. The [facility] the operating table, where he was induced under general anesthesia and given IV Cipro for preoperative antibiotic prophylaxis. To begin the case, he was prepped and draped in the normal sterile fashion, placed in the dorsal lithotomy. He had a 22-English sheath with a 30-degree lens passed through [...] cystoscope over the Glidewire and placed a 6-English x 26-cm double-J ureteral stent over the Glidewire up into the kidney. Glidewire was removed. Proximal curl was confirmed by fluoroscopy and distal curl was confirmed by visualization. At this point in time, the stent string was attached to the glans penis with Steris and benzoin. He was awoken from general anesthesia, transferred to the [facility], and taken to the PACU in satisfactory condition by Nursing and Anesthesia Teams. PLAN: The patient will be discharged to home per PACU criteria and follow up with us in three to seven days for stent removal via string. ANKITA YIP TZ/V_CGJAS_T Doc#: [id number] CC:Kindred HealthcareFLUORO FOR SURGICAL PROCEDURESon [id number] FOR SURGICAL PROCEDURESRadiology exam is complete. No Radiologist dictation. Please follow up with ordering provider. Final resultNormalMercy Health St. Joseph Warren HospitalRadiology exam is complete. No Radiologist dictation. Please follow up with ordering provider.[facility], KYOPERATIVE REPORTon [id number] REPORT[address] [address] OPERATIVE REPORT PATIENT NAME: JASMEET PERDUE : 1960 MED REC NO: [id number] ROOM: ACCOUNT NO: [id number] ADMIT DATE: 06/05/2020 PROVIDER: Ankita Yip DATE OF PROCEDURE: 06/05/2020 SURGEON: Dr. Ankita Yip. RESOURCE ROOM TEACHER: None. PREOPERATIVE DIAGNOSIS: Left ureteral calculus. POSTOPERATIVE DIAGNOSIS: Left ureteral calculus. PROCEDURES PERFORMED: Cystoscopy and left ureteral stent. ANESTHESIA: General. COMPLICATIONS: None. ESTIMATED BLOOD LOSS: Minimal. SPECIMENS: None. PROSTHESIS: A 6-English x 26 cm double-J ureteral stent. DISPOSITION: [...] obtained. The patient was transferred from the [facility] onto the operating table, where he was induced under general anesthesia, and given IV Cipro for preoperative antibiotic prophylaxis. To begin the case, he was prepped and draped in the normal sterile fashion and placed in dorsal lithotomy. He had a 22-English sheath with a 30-degree lens passed through the urethra into the bladder. Once in the bladder, we identified the left ureteral orifice. A 0.035-inch wire was attempted to be placed up. We were unable to place the wire up. We used an open-ended catheter 5-English and passed up the ureter. We were able to pass by the stone, placed the Glidewire by. We then were able to remove the catheter leaving the Glidewire in place and then we placed a 6-English x 26-cm double-J ureteral stent over the Glidewire up into the kidney. We did have some trouble getting by the distal stone. Once this was done, we removed the Glidewire. The proximal curl was confirmed by fluoroscopy. Distal curl was confirmed by visualization. At this point in time, the bladder was drained. He was awoken from general anesthesia, transferred to the [facility], and taken to the PACU in satisfactory condition by Nursing and Anesthesia Teams. PLAN: The patient will be discharged home per PACU criterion and follow up with us in one to two weeks for definitive stone therapy. He will be on antibiotics during the interim. ANKITA YIP TZ/V_CGJAS_T Doc#: [id number] CC:[facility] Metabolic Panel w/ Reflex to MGon 06-04-2020 Anion gap [Moles/Vol]10 mmol/L9 - 17 mmol/LMFulton County Health Center- [place], KYBun/Cre Ratio12 [facility], KYCalcium [Mass/Vol]10.0 mg/dL8.6 - 10.4 mg/dLWayne HealthCare [facility], KYChloride [Moles/Vol]104 mmol/L98 - 107 mmol/LMFulton County Health Center- [place], KYCO2 [Moles/Vol]27 mmol/L20 - 31 mmol/LMBarney [facility] [place], KYCreatinine [Mass/Vol]1.11 mg/dL0.7 - 1.2 mg/dLWayne HealthCare [facility], KYGFR >60>60 mL/minWayne HealthCare Main Campus, KYGFR Non->60>60 mL/minWayne HealthCare Main Campus, KYGFR/1.73 sq M predicted among non-blacks MDRD (S/P/Bld) [Vol rate/Area]NOT REPORTEDWay[facility] HealthCare [facility], KYGFR/1.73 sq M predicted among non-blacks MDRD (S/P/Bld) [Vol rate/Area][facility], KYComment on above:Average GFR for 60-69 years old: 85 mL/min/1.73sq m Chronic Kidney Disease: <60 mL/min/1.73sq m Kidney failure: <15 mL/min/1.73sq m eGFR calculated using average adult body mass. Additional eGFR calculator available at: http://www.Conviva.Inivata/multiple_crcl_2011.htm Glucose [Mass/Vol]127 mg/fNJxwh51 - 99 mg/dLWayne HealthCare [facility], KYInterpretation and review of laboratory resultsAbnormalWayne HealthCare [facility], KYPotassium [Moles/Vol]4.1 mmol/L3.7 - 5.3 mmol/LMBarney [facility] [place], KYSodium [Moles/Vol]141 mmol/L135 - 144 mmol/LMBarney Children's Medical Center [place], KYUrea nitrogen [Mass/Vol]13 mg/dL8 - 23 mg/dLWayne HealthCare Main Campus, KYCBC Auto Differentialon [id number] (Bld) [#/Vol]0.00 10*3/[facility], KYBasophils/100 WBC (Bld)0 %0 - 2 %[facility], KYDifferential TypeYESMOhioHealth Doctors Hospital, KYEosinophils (Bld) [#/Vol] 0.00 10*3/[facility], KYEosinophils/100 WBC (Bld)0 %0 - 5 %[facility], MOErythrocyte distribution width (RBC) [Ratio]14.6 %12.1 - 15.2 %[facility], KYHematocrit (Bld) [Volume fraction]46.3 %41 - 53 %[facility], MOHemoglobin (Bld) [Mass/Vol]15.6 g/dL13.5 - 17.5 g/dLWayne HealthCare [facility], [place] Interpretation and review of laboratory resultsAbnormalWayne HealthCare [facility] Campus, [place] Lymphocytes (Bld) [#/Vol]0.90 10*3/uLLowWayne HealthCare Main Campus, KYLymphocytes/100 WBC (Bld)5 %Low13 - 44 %[facility], MOMCH (RBC) [Entitic mass]32.0 pg26 - 34 pgWayne HealthCare Main Campus, KYMCHC (RBC) [Mass/Vol]33.8 g/dL31 - 37 g/dLWayne HealthCare Main Campus, MOMCV (RBC) [Entitic vol]94.8 fL80 - 100 [facility], KYMonocytes (Bld) [#/Vol]0.70 10*3/[facility], KYMonocytes/100 WBC (Bld)5 %5 - 9 % [facility], KYPlatelet mean volume (Bld) [Entitic vol]NOT REPORTED6 - 12 fLWayne HealthCare Main Campus, KYPlatelets (Bld) [#/Vol]NOT REPORTEDWay[facility] Health[facility], [place] Platelets (Bld) [#/Vol]251 10*3/[facility], KYRBC (Bld) [#/Vol]4.89 10*6/uL4.5 - 5.9 m/uLLubbock, KYRB morphology finding Nom (Bld)NOT REPORTEDWayne HealthCare [facility] Hospitalented neutrophils/100 WBC (Bld)90 %High39 - 75 % [facility] MOSegs Kyvgonnp12.30HighWayne HealthCare Main Campus MOWBC (Bld) [#/Vol] NOT REPORTEDper 100 WBCWayne HealthCare Main Campus MOWBC (Bld) [#/Vol]15.9 10*3/uLHigh [facility] MorphologyNOT REPORTEDLubbock, KYCOVID-19, PCR on [id number]-CoV-2, RapidNot DetectedNot DetectedLubbock, [place] Comment on above: Rapid NAAT: The [...] management decisions. Fact sheet for Healthcare Providers: https://www.fda.gov/media/717705/download Fact sheet for Patients: https://www.fda.gov/media/520961/download Methodology: Isothermal Nucleic Acid Amplification Source.THROATLubbock, KYCT ABDOMEN PELVIS W IV CONTRAST Additional Contrast? Radiologist Recommendationon [id number]: CT ABDOMEN PELVIS W IV CONTRAST HISTORY: Contrast As per Dr Cornelius. COMPARISON: CT of th abdomen and pelvis from 06/04/2020. TECHNIQUE: CT examination of the abdomen and pelvis following the administration of 50 mL of Isovue-370 intravenous contrast. Coronal and sagittal reformations were performed. Oral contrast was not given. Dose reduction techniques were achieved by using automatedexposure control and/or adjustment of mA and/or kV according to patient size and/or use of iterative reconstruction technique. REPORT: The lung bases are clear of infiltrate or nodule or effusion. The visualized heart shows no gross enlargement or pericardial effusion. A mild hiatal hernia is notedwithout inflammation or edema. The abdominal and pelvic vasculature show no acute process. There isprominence of the abdominal aorta noted at the [...] the earlier CT study. No obvious right r enal stones are noted. No inflammation is noted of the right kidney or right ureter. There are mildinflammatory changes including mild surrounding fluid about the left kidney. Moderate to prominent hydroureteronephrosis. There are areas of mild inflammation along the left ureter. A left ureteral stone is again difficult to visualize. The bladder is unremarkable. Limited views of the external genitalia are normal. Perirectal regions and inguinal regions are unremarkable. The anus and rectum areunremarkable. The prostate is mildly prominent with a [...] no free air, loculated fluid, mass, or lymph adenopathy. The subcutaneous tissues are unremarkable. No abdominal wall hernia is noted. Mild osteopenic and moderate degenerative changes are noted throughout. No bony lesions are noted.[facility]- [place], Claus, Katherine Incoming Radiant Results From [email or web address] - 06/04/2020 6:48 PM EST EXAMINATION: CT ABDOMEN PELVIS W IV CONTRAST HISTORY: Contrast As per Dr Cornelius. COMPARISON: CT of th abdomen and pelvis from 06/04/2020. TECHNIQUE: CT [...] 2. Prominent but stable abdominal aortic aneurysm. [facility], KY1. Again noted is a moderate to prominent left-sided hydroureteronephrosis with inflammation. No obvious calculus is noted. There are some calcifications along the path of the left ureter but difficult to separate out from vascular calcifications. There is delay of excretion of the left kidney compared to the right. 2. Prominent but stable abdominal aortic aneurysm. [facility], KYCT ABDOMEN PELVIS WO CONTRASTon [id number]: CT ABDOMEN PELVIS WO CONTRAST HISTORY: Reason for exam:->renal stone protocol COMPARISON: CT with contrast obtained 1659 hours same date reported separately. TECHNIQUE: CT examinationof the abdomen and pelvis without IV contrast. [...] of the left ischial spine. 2.5 cm cystleft kidney. Normal size prostate. Minimal urine in the bladder. Appendix normal. Right kidney azalia l. No bowel obstruction. Normal gallbladder, spleen, pancreas and adrenal glands. Lung bases are clear. No free air. Abdominal wall intact. Degenerative changes are most prominent at L3-L4 in the lumbar spine.[facility], [place] High-grade obstruction of the left ureter of uncertain origin, likely due to a calculus, but difficult to separate from vascular calcifications within the lower abdomen and pelvis. Additional delayedimages after contrast can be obtained as clinically indicated. 5.1-5.2 cm in greatest diameter infrarenal abdominal aortic aneurysm without leak. Diverticulosis sigmoid colon, without acute diverticulitis. Preliminary report was given by myself to Dr. Brasher at the conclusion of the study. With contrast CT abdomen pelvis dictated separately. [facility] CampusClaus, Katherine Incoming Radiant Results From [email or web address] - 06/04/2020 5:28 PM EST EXAMINATION: CT [...] With contrast CT abdomen pelvis dictated separately. [employer] KYMicroscopic Urinalysison [id number], UANOT REPORTED NoneMet[facility]- [place], KYBacteria, UARAREAbnormalNoneMemetrohealth main campus medical center Health- [place], KYCasts UA NOT REPORTED/LPFMchildren's hospital for rehabilitation [employer]- [place], KYCrystals, UANOT REPORTEDNone /[facility]- [place], KYEpithelial Cells UANOT REPORTED/[facility]- [place], [place] Interpretation and review of laboratory resultsAbnormalMercy Health- [place], [place] Mucus, UANOT REPORTEDNoneMercy Health- [place], KYOther Observations UANOT REPORTED NOT REQ.[facility]- [place], KYRBC (U) [#/Vol]LOADEDMercy Health- [place], KYRenal Epithelial, UANOT REPORTED0 /HPFMercy Health- [place], KYTrichomonas, UANOT REPORTED NoneMercy Health- [place], KYWBC, UA5 TO 100 /HPFMercy Health- [place], KYYeast, UANOT REPORTEDNoneMercy Health- [place], [place]-[facility]- [place], KYOtheron 06-04-2020 CBOE-NhX-4Clooi Health- [place], KYImmature granulocytes (Bld) [#/Vol]NOT REPORTED0 % [facility]- [place], KYUrinalysis, reflex to microscopicon [id number] UrineNegativeNEGATIVEMercy Health- [place], KYColor, UAYELLOWYELLOWMercy Health- [place], KYGlucose, UrNegativeNEGATIVEMercy Health- [place], KYInterpretation and review of laboratory resultsAbnormalMercy Health- [place], KYKetones Ql (U)NegativeNEGATIVE [facility]- [place], KYLeukocyte esterase Test strip Ql (U)1+AbnormalNEGATIVEMercy Health- [place], KYNitrite, UrineNegativeNEGATIVEMercy Health- [place], KYpH, UA8.0[facility]- [place], KYProtein (U) [Mass/Vol]TRACEAbnormalNEGATIVEMercy Health- [place], [place] Specific [place], UA1.010[facility]- [place], KYTurbidity UAHAZYAbnormalCLEARMercy Health- [place], KYUrinalysis CommentsMercy Health- [place], KYUrine Hgb3+AbnormalNEGATIVE [facility]- [place], KYUrobilinogen, UrineNormalNormalMercy Health- [place], [place] Vital Signs Date TimeVital SignValuePerforming [id number] 13:21-0500 Respiratory rate18 /minBeltran Hall MD Work Phone: bon Andrzej [facility] CenterPxdknq36-63-8364 07:27-0500Body .2 [degF]Beltran Hall MD Work Phone: [phone] [facility]02-12-2025 07:27-0500Diastolic blood rucmdkwe78 mm[Hg]Beltran Hall MD Work Phone: [phone] [facility]02-12-2025 07:27-0500Heart rate73 /minBeltran Hall MD Work Phone: [phone] [facility]02-12-2025 07:27-2876RrE9% (BldA) [Mass fraction]96 %Beltran Hall MD Work Phone: [phone] [facility]02-12-2025 07:27-0500Systolic blood lvyhroid134 mm[Hg]Beltran Hall MD Work Phone: [phone] [facility]02-10-2025 07:35-0500Body .3 cmTdaja Hall MD Work Phone: [phone] [facility]02-10-2025 07:35-0500Body mass index (BMI) [Ratio]23.63 kg/p1ThkqaxlBeltran Hall MD Work Phone: [phone] [facility]02-10-2025 07:35-0500Body ogaodk85.58 kgBeltran Hall MD Work Phone: [phone] [facility]01-20-2025 08:40-0500Diastolic blood rvwsxouj85 mm[Hg]Beltran Hall MD Work Phone: [phone] [facility]01-20-2025 08:40-0500Heart rate63 /minBeltran Hall MD Work Phone: [phone] [facility] Dfgtrs94-96-2229 08:40-0500 Respiratory rate18 /minBeltran Hall MD Work Phone: [phone] [facility]01-20-2025 08:40-7427MpX4% (BldA) [Mass fraction]97 %Beltran Hall MD Work Phone: bon [facility]01-20-2025 08:40-0500Systolic blood gtcybkzo941 mm[Hg]Beltran Hall MD Work Phone: bsmooth [facility]01-20-2025 08:00-0500Body pzhnonysjor26.11 [degF]Beltran Hall MD Work Phone: bsmooth [facility]01-20-2025 06:29-0500Body fjmqic076.3 cmTdaja Hall MD Work Phone: bsmooth [facility]01-20-2025 06:29-0500Body mass index (BMI) [Ratio]23.63 kg/d0EhrjkatBeltran Hall MD Work Phone: bH[facility]01-20-2025 06:29-0500Body .58 kgBeltran Hall MD Work Phone: bsmooth [facility]01-14-2025 14:42-0500Blood Pressure LocationTammy Tristen [phone]-YbrfxSumma Health 06-04-2024 14:42-0500Body aneeigbpvyd43.06 [degF]Sherie Ramon [phone]-NibplSumma Health 06-04-2024 14:42-0500Diastolic blood cukrdeei35 mm[Hg]Sherie Ramon [phone]-GpxylSumma Health 06-04-2024 14:42-0500Heart rate76 /minTammy Tristen [phone]-PwiqjSumma Health 06-04-2024 14:42-0500Respiratory rate18 /minTammy Tristen [phone]-ItotdSumma Health 06-04-2024 14:42-1268XuL8% (BldA) [Mass fraction]97 %Sherie Tristen [phone]-Nskgg[address] [place] [address] 06-04-2024 14:42-0500Systolic blood sbsjuyge843 mm[Hg]Sherie Tristen [phone]-Ehgro[address] [place] [address] 04-30-2024 15:35-0500Diastolic blood zetywtzx64 mm[Hg]Sherie Tristen [phone]-Stqig[address] [place] [address] 04-30-2024 15:35-0500Mean blood ofojtqea52 mm[Hg]Sherie Tristen [phone]-Tiouh[address] [place] [address] 04-30-2024 15:35-3930AtG1% (BldA) [Mass fraction]92 %Sherie Tristen [phone]-Mhymd[address] [place] [address] 04-30-2024 15:35-0500Systolic blood jnxdrjte129 mm[Hg]Sherie Tristen [phone]-Vfdlv[address] [place] [address] 04-30-2024 14:54-0500Blood Pressure LocationTammy Tristen [phone]-Zkmbd[address] [place] [address] 04-30-2024 14:54-0500Body nfzhzskutef18.88 [degF]Sherie Tristen [phone]-Zmekj[address] [place] [address] 04-30-2024 14:54-0500Diastolic blood dtjcylvp03 mm[Hg]Sherie Tristen [phone]-Blbvg[address] [place] [address] 04-30-2024 14:54-0500Heart rate74 /minTammy Tristen [phone]-Cbigf[address] [place] [address] 04-30-2024 14:54-0500Respiratory rate18 /minTammy Tristen [phone]-Mjsuc[address] [place] [address] 04-30-2024 14:54-0500Systolic blood gbkjival154 mm[Hg]Sherie Ramon [phone]-PbxzpMercy Health [facility] 04-25-2024 07:59-0500Body cyixukezkoi58.1 [degF]Bárbara Scullin DO Work Phone: [employer]12-05-2024 07:59-0500Diastolic blood kqyzszzi84 mm[Hg]Bárbara Scullin DO Work Phone: [employer]12-05-2024 07:59-0500Heart rate89 /minHeather Scullin DO Work Phone: [employer]12-05-2024 07:59-0500 Respiratory rate17 /minHeather Scullin DO Work Phone: [employer]12-05-2024 07:59-4924JgJ8% (BldA) [Mass fraction]95 %Bárbara Scullin DO Work Phone: [employer]12-05-2024 07:59-0500Systolic blood parwgzmy964 mm[Hg]Bárbara Scullin DO Work Phone: [employer]12-04-2024 22:45-0500Body boewhh411.8 cmHeather Scullin DO Work Phone: [employer]12-04-2024 22:45-0500Body mass index (BMI) [Ratio]24.79 kg/j1Mtfyzva Scullin DO Work Phone: [employer]12-04-2024 22:45-0500Body wmetvs96.38 kgHeather Scullin DO Work Phone: [employer]11-30-2024 07:17-0500Body cpzsjatznco89.2 [degF]Beltran Hall MD Work Phone: bon [employer]11-30-2024 07:17-0500Diastolic blood pvfvtzyk35 mm[Hg]Beltran Hall MD Work Phone: bsmooth [facility]11-30-2024 07:17-0500Heart rate74 /minBeltran Hall MD Work Phone: bsmooth [facility]11-30-2024 07:17-0500 Respiratory rate16 /minBeltran Hall MD Work Phone: bsmooth [facility]11-30-2024 07:17-7393RoH6% (BldA) [Mass fraction]99 %Beltran Hall MD Work Phone: bsmooth [facility]11-30-2024 07:17-0500Systolic blood aliijxht984 mm[Hg]Beltran Hall MD Work Phone: bsmooth [facility]11-28-2024 04:04-0500Body mass index (BMI) [Ratio]24.77 kg/e3RmgeeqxBeltran Hall MD Work Phone: Gsmooth [facility]11-28-2024 04:04-0500Body .3 kgBeltran Hall MD Work Phone: bsmooth [facility]11-20-2024 08:26-0500Body uaemzc873.8 Karen Hall MD Work Phone: Rsmooth [facility]11-13-2024 13:45-0500Body qtwgtxogrde90.29 [degF][facility] 13:45-0500 Diastolic blood vytlgmuv57 mm[Hg][facility]-13-2024 13:45-0500Heart rate69 /minMloz [facility]11-13-2024 13:45-0500 Respiratory rate16 /minMloz [facility]11-13-2024 13:45-8522AiC5% (BldA) [Mass fraction]95 %Mloz RnBon [facility]11-13-2024 13:45-0500 Systolic blood iaupchha513 mm[Hg][facility] 14:21-0400Blood Pressure LocationPatricia Vaner 063-4871Jnwnqt-KzxmaMercy Health Convenient Vzmq98-90-7998 14:21-0400Diastolic blood mm[Hg]Mirian Abdonjeniferer 551-7749Upuhbt-HtgxdMercy Health Convenient Cnni17-05-8394 14:21-0400Heart rate75 /minPatricia Vaner 079-6494Eezhzw-EadrvMercy Health Convenient Qirq49-35-9857 14:21-8773ClY5% (BldA) [Mass fraction]95 %Mirian Ugarte [phone]-LpvkaKettering Health Preble10-09-2024 14:21-0400Systolic blood jqlvludd513 mm[Hg]Mirian Coppolajeniferaracelis 275-4881Rykvse-BijltMercy Health Convenient Rtdy95-99-7734 08:04-0400Blood Pressure LocationTammy Tristen [phone]-HpibcSumma Health 02-02-2024 08:04-0400Body mihhjzxfjip85.52 [degF]Sherie Tristen 269-7761Cwwhgq-KojxoSumma Health 02-02-2024 08:04-0400Diastolic blood hhndenjr73 mm[Hg]Sherie Tristen 868-8797Bcipxg-OmkmkSumma Health 02-02-2024 08:04-0400Heart rate74 /minTammy Tristen 321-0865Lbmyyt-BzcaeSumma Health 02-02-2024 08:04-0400Respiratory rate18 /minTammy Tristen [phone]-UfuwaSumma Health 02-02-2024 08:04-4527UsG7% (BldA) [Mass fraction]96 %Sherie Ramon 141-6446Pswzcz-TasybSumma Health 02-02-2024 08:04-0400Systolic blood pvpyqfae264 mm[Hg]Sherie Ramon 348-3030Stzlyn-IjchuSumma Health 01-01-2024 12:30-0400Diastolic blood lwlnobdy64 mm[Hg]Jillian Aranda [facility]08-12-2024 12:30-0400Heart rate78 /minAmanjosie Aranda [facility]08-12-2024 12:30-0400Mean blood ufcxkskt112 mm[Hg]Jillian Aranda [facility]08-12-2024 12:30-0400 Systolic blood lprzkyba528 mm[Hg]Jillian Aranda [facility]08-07-2024 13:22-0400Heart rate59 /minBrarogerio Andrade [facility]08-07-2024 13:22-2425ReG7% (BldA) [Mass fraction]96 %Cresencio Andrade [facility]08-07-2024 13:22-0400 Diastolic blood ejuukdvx17 mm[Hg]Cresencio Andrade [facility]08-07-2024 13:22-0400Mean blood basdsffg842 mm[Hg]Cresencio Andrade [facility]08-07-2024 13:22-0400 Systolic blood rtejctlv237 mm[Hg]Cresencio Andrade [facility]08-07-2024 13:22-0400 Respiratory rate16 /minBrarogerio Andrade [facility]08-07-2024 13:13-0400 Diastolic blood azdtlgfs817 mm[Hg]Cresencio Andrade [facility]08-07-2024 13:13-0400Heart rate63 /minBrarogerio Raymond [facility]08-07-2024 13:13-0400 Respiratory rate18 /minBrarogerio Raymond [facility]08-07-2024 13:13-7684JeJ8% (BldA) [Mass fraction]97 %Cresencio Andrade [facility]08-07-2024 13:13-0400 Systolic blood hvujqbbf287 mm[Hg]Dupont Raymond [facility]08-07-2024 11:59-0400Heart rate60 /minBrarogerio Raymond [facility]08-07-2024 11:59-1866AkP5% (BldA) [Mass fraction]98 %Cresencio Andrade [facility]08-07-2024 11:59-0400Body pbxnmbyoaoq15.52 [degF]Dupont Raymond [facility]08-07-2024 11:57-0400 Diastolic blood szhlyciz61 mm[Hg]Cresencio Raymond [facility]08-07-2024 11:57-0400Mean blood rrjmfoxw809 mm[Hg]Cresencio Andrade [facility]08-07-2024 11:57-0400 Systolic blood yvuzgsvp497 mm[Hg]Cresencio Andrade [facility]08-07-2024 11:57-0400 Respiratory rate16 /minBrarogerio Andrade [facility]04-18-2024 15:37-0400 Respiratory rate14 /minBrarogerio Andrade [address] [place], [place] 985[address]3-13-2024 11:35-0400Heart rate68 /minBradfbridget Raymond [facility]03-13-2024 11:35-0415PkO7% (BldA) [Mass fraction]95 %Cresencio Andrade [facility]03-13-2024 11:35-0400 Diastolic blood mm[Hg]Dupont Raymond [facility]03-13-2024 11:35-0400Mean blood glhytcdh302 mm[Hg]Dupont Raymond [facility]03-13-2024 11:35-0400 Systolic blood ifvlhlcl720 mm[Hg]Cresencio Raymond [facility]03-13-2024 11:34-0400 Respiratory rate16 /minBrarogerio Raymond [address] [place], [place] 985[address]3-13-2024 11:28-0400 Diastolic blood soehljrb76 mm[Hg]Dupont Raymond [facility]03-13-2024 11:28-0400Heart rate73 /minBrarogerio Raymond [facility]03-13-2024 11:28-3656CaW6% (BldA) [Mass fraction]97 %Cresencio Andrade [facility]03-13-2024 11:28-0400 Systolic blood zobltcgq823 mm[Hg]Cresencio Andrade [facility]03-13-2024 10:58-0400Heart rate71 /minBrarogerio Andrade [facility]03-13-2024 10:58-2860SjO7% (BldA) [Mass fraction]94 %Cresencio Andrade [facility]03-13-2024 10:58-0400Body tonhihkrewp06.42 [degF]Cresencio Andrade [facility]03-13-2024 10:55-0400 Diastolic blood azbatmgs62 mm[Hg]Cresencio Andrade [facility]03-13-2024 10:55-0400Mean blood lwvkkmal702 mm[Hg]Cresencio Andrade [facility]03-13-2024 10:55-0400 Systolic blood hzqjdlor096 mm[Hg]Cresencio Andrade [facility]03-13-2024 10:54-0400 Respiratory rate14 /minBrarogerio Raymond [facility]03-12-2024 07:58-0400Blood Pressure LocationTammy Tristen 110-7882Wmuqyl-Nvnky[address] [place] [address] 08-01-2023 07:58-0400Body .88 [degF]Sherie Ramon [phone]-Skxqv[address] [place] [address] 08-01-2023 07:58-0400Diastolic blood uglmzptw94 mm[Hg]Sherie Tristen [phone]-Agsvl[address] [place] [address] 08-01-2023 07:58-0400Heart rate72 /minTammy Tristen 705-8865Asmlug-Jbocd[address] [place] [address] 08-01-2023 07:58-0400Respiratory rate18 /minTammy Tristen 014-5265Mjfejv-Wohuc[address] [place] [address] 08-01-2023 07:58-4450JfR3% (BldA) [Mass fraction]97 %Sherieargelia Ramon 074-1049Dvsnoh-Xtvuf[address] [place] [address] 08-01-2023 07:58-0400Systolic blood hseqzbvw229 mm[Hg]Sherie Ramon 781-1512Rtdlkx-Oelcm[address] [place] [address] 06-16-2023 07:49-0500Diastolic blood mwzvehpr64 mm[Hg]Jillian Aranda [facility]01-26-2024 07:49-0500Heart rate66 /minAmanda Aranda [facility]01-26-2024 07:49-0500Mean blood iqmlgqxu331 mm[Hg]Jillian Aranda [address] [place], [place] 9857501-26-2024 07:49-0500 Respiratory rate14 /minAmanda [employer] [address] [place], [place] 9857501-26-2024 07:49-0500 Systolic blood bafkirlh696 mm[Hg]Jillian [employer] [address] [place], [place] 985[address]11-17-2023 08:16-0500 Diastolic blood cpqtvqot04 mm[Hg]Jillian Aranda [address] [place], [place] 985[address]11-17-2023 08:16-0500Heart rate64 /minAmanda [employer] [address] [place], [place] 985[address]11-17-2023 08:16-0500Mean blood jcszhynp158 mm[Hg]Jillian [employer] [address] [place], [place] 985[address]11-17-2023 08:16-0500 Respiratory rate14 /minAmanda Aranda [address] [place], [place] 985[address]11-17-2023 08:16-0500 Systolic blood mrqhjlok495 mm[Hg]Jillian [employer] [address] [place], [place] 9857509-22-2023 09:27-0400 Diastolic blood mm[Hg]Jillian [employer] [address]09-22-2023 09:27-0400Heart rate61 /minAmanda Aranda [address] [place], [place] 9857509-22-2023 09:27-0400Mean blood yaegfmva037 mm[Hg]Jillian TownSquared [facility]09-22-2023 09:27-0400 Respiratory rate16 /minAmanjosie Aranda [facility]09-22-2023 09:27-0400 Systolic blood iqbexosi251 mm[Hg]Jillian Aranda [facility]09-19-2023 11:47-0400 Diastolic blood vpptctgu42 mm[Hg]Sherie Ramon 908-8277Gdrqza-Oysmk[address] [place] [address] 02-07-2023 11:47-0400Mean blood nernlahs008 mm[Hg]Sherie Ramon 984-8443Vyrlrh-Nxiae[address] [place] [address] 02-07-2023 11:47-0400Systolic blood mm[Hg]Sherie Tateant 531-3520Kzauot-Ngxfy[address] [place] [address] 02-07-2023 10:58-0400Blood Pressure LocationTammy Tristen 089-8905Plunmn-Jmlsp[address] [place] [address] 02-07-2023 10:58-0400Body lnloxxgcnrs35.78 [degF]Sherie Ramon 305-5822Mfaaij-Xttuo[address] [place] [address] 02-07-2023 10:58-0400Diastolic blood mm[Hg]Sherie Tateant 789-2561Kjhwrk-Wcuvg[address] [place] [address] 02-07-2023 10:58-0400Heart rate68 /minTammy Tristen 425-8470Brirst-AshwcSumma Health 02-07-2023 10:58-0400Respiratory rate16 /minTammy Tristen 111-7001Scujuc-Imfvk[address] [place] [address] 02-07-2023 10:58-0674EjA7% (BldA) [Mass fraction]95 %Sherie Tateant 456-5565Ohquls-HfkpnSumma Health 02-07-2023 10:58-0400Systolic blood vnbnutfa920 mm[Hg]Sherie Ramon 376-3236Bkekpo-NjqntSumma Health 01-18-2023 07:59-0400Diastolic blood fjrowacy84 mm[Hg]Jillian Aranda [facility]08-30-2023 07:59-0400Heart rate60 /minAmanda TownSquared [facility]08-30-2023 07:59-0400Mean blood mfsnypyp065 mm[Hg]Jillian Aranda [facility]08-30-2023 07:59-0400 Respiratory rate16 /minAmanda TownSquared [facility]08-30-2023 07:59-0400 Systolic blood zenjxwpo984 mm[Hg]Jillian Aranda [address] [place], [place] 9857506-23-2023 09:08-0400 Diastolic blood mm[Hg]Jillian Aranda [facility]06-23-2023 09:08-0400Heart rate63 /minAmanda TownSquared [facility]06-23-2023 09:08-0400Mean blood mm[Hg]Jillian Aranda [facility]06-23-2023 09:08-0400 Respiratory rate14 /minAmanda TownSquared [facility]06-23-2023 09:08-0400 Systolic blood nirsrumy967 mm[Hg]Jillian Aranda [facility]05-26-2023 08:33-0400 Diastolic blood uhshmtdh44 mm[Hg]Jillian Aranda [address] [place], [place] 9857505-26-2023 08:33-0400Heart rate89 /minAmanda Aranda [address] [place], [place] 9857505-26-2023 08:33-0400Mean blood uacwapru13 mm[Hg]Jillian Aranda [address] [place], [place] 9857505-26-2023 08:33-0400 Systolic blood gfanqdxe753 mm[Hg]Jillian Aranda [address]05-03-2023 14:27-0400Heart rate66 /minZachary Zumbar [address]05-03-2023 14:27-2215EbL4% (BldA) [Mass fraction]95 %Marcel Zumbar [address]05-03-2023 14:27-0400 Respiratory rate16 /minZachary Zumbar [address]05-03-2023 14:26-0400 Diastolic blood mm[Hg]Marcel Zumbar [address] [place], [place] 9857505-03-2023 14:26-0400Mean blood mm[Hg]Marcel Zumbar [address] [place], [place] 9857505-03-2023 14:26-0400 Systolic blood juaoltjh353 mm[Hg]Marcel Zumbar [address]05-03-2023 14:17-0400 Diastolic blood eenliyyo85 mm[Hg]Marcel Zumbar [address]05-03-2023 14:17-0400Heart rate64 /minZachary Zumbar [address] [place], [place] 9857505-03-2023 14:17-0400 Respiratory rate14 /minZachary Zumbar [address] [place], [place] 9857505-03-2023 14:17-5860RaS5% (BldA) [Mass fraction]98 %Marcel Zumbar [facility]05-03-2023 14:17-0400 Systolic blood nenlgrun808 mm[Hg]Marcel Zumbar [address] [place], [place] 9857505-03-2023 13:00-0400Heart rate70 /minZachary Zumbar [address] [place], [place] 9857505-03-2023 13:00-6673ZaG7% (BldA) [Mass fraction]96 %Marcel Zumbar [address]05-03-2023 12:59-0400Body adgfsrpoogm33.52 [degF]Marcel Zumbar [address] [place], [place] 9857505-03-2023 12:57-0400 Diastolic blood ikvopctr96 mm[Hg]Marcel Zumbar [address] [place], [place] 9857505-03-2023 12:57-0400Mean blood yjosrhja262 mm[Hg]Marcel Zumbar [address] [place], [place] 9857505-03-2023 12:57-0400 Systolic blood invrgjgm351 mm[Hg]Marcel Zumbar [address] [place], [place] 9857505-03-2023 12:55-0400 Respiratory rate4 /minZachary Zumbar [address] [place], [place] 9857503-31-2023 10:53-0400 Diastolic blood ljgzeqqo87 mm[Hg]Jillian Aranda [address] [place], [place] 9857503-31-2023 10:53-0400Heart rate73 /minJillian Aranda [facility]03-31-2023 10:53-0400Mean blood oosyvbbx13 mm[Hg]Jillian Aranda [facility]03-31-2023 10:53-0400 Respiratory rate14 /minAmanda Aranda [facility]03-31-2023 10:53-0400 Systolic blood alzkavtv364 mm[Hg]Jillian Manoj [facility]03-08-2023 13:40-0500Heart rate60 /minZachary Zumbar [address] [place], [place] 9857503-08-2023 13:40-2318YxM4% (BldA) [Mass fraction]97 %Marcel Zumbar [address] [place], [place] 9857503-08-2023 13:40-0500 Diastolic blood qzwameln77 mm[Hg]Marcel Zumbar [facility]03-08-2023 13:40-0500Mean blood utmvdmmc715 mm[Hg]Marcel Zumbar [facility]03-08-2023 13:40-0500 Systolic blood gaqijygl470 mm[Hg]Marcel Zumbar [facility]03-08-2023 13:35-0500Heart rate69 /minZachary Zumbar [facility]03-08-2023 13:35-2776HxP9% (BldA) [Mass fraction]97 %Marcel Zumbar [facility]03-08-2023 13:35-0500 Diastolic blood iykpckvb266 mm[Hg]Marcel Zumbar [facility]03-08-2023 13:35-0500Mean blood dtochexp380 mm[Hg]Marcel Zumbar [facility]03-08-2023 13:35-0500 Systolic blood hpulehhi651 mm[Hg]Marcel Zumbar [facility]03-08-2023 13:35-0500 Respiratory rate20 /minZachary Zumbar [facility]03-08-2023 13:28-0500 Diastolic blood ntogaqaq336 mm[Hg]Marcel Zumbar [facility]03-08-2023 13:28-0500Heart rate67 /minZachary Zumbar [facility]03-08-2023 13:28-0500 Respiratory rate14 /minZachary Zumbar [facility]03-08-2023 13:28-6093RyS5% (BldA) [Mass fraction]98 %Marcel Zumbar [facility]03-08-2023 13:28-0500 Systolic blood mozlggcr039 mm[Hg]Marcel Zumbar [facility]03-08-2023 12:25-0500Mean blood mm[Hg]Marcel Zumbar [facility]03-08-2023 12:25-0500Body stdqwmkfdow25.06 [degF]Marcel Zumbar [address] [place], [place] 985[address]3-08-2023 12:24-0500 Respiratory rate12 /minZachary Zumbar [address] [place], [place] 985[address]3-03-2023 13:55-0500Blood Pressure LocationTacarey Ramon 033-7286Bdfrqq-MpmcgSumma Health 07-22-2022 13:55-0500Diastolic blood enssgpsb58 mm[Hg]Sherie Ramon 764-4703Jpdzcu-XzkxjSumma Health 07-22-2022 13:55-0500Heart rate92 /minTammy Tristen 995-4213Xyxaus-PycajSumma Health 07-22-2022 13:55-3641DiH8% (BldA) [Mass fraction]95 %Sherie Ramon 141-0515Mlmsun-RshguSumma Health 07-22-2022 13:55-0500Systolic blood dixavafx131 mm[Hg]Sherie Ramon 203-8908Aszksw-YxzqtSumma Health 06-10-2022 13:45-0500Diastolic blood cvhmodpc84 mm[Hg]Jillian Aranda [facility]01-20-2023 13:45-0500Heart rate64 /minAmanjosie Manoj [facility]01-20-2023 13:45-0500Mean blood mm[Hg]Jillian Aranda [facility]01-20-2023 13:45-0500 Systolic blood pzjezryh668 mm[Hg]Jillian Aranda [facility]12-28-2022 10:00-0500 Diastolic blood mgovzrud16 mm[Hg]Beltran Hall MD Work Phone: bon [facility]12-28-2022 10:00-0500Heart rate92 /minBeltran Hall MD Work Phone: bon [facility]12-28-2022 10:00-0500 Respiratory rate16 /minBeltran Hall MD Work Phone: bon [facility]12-28-2022 10:00-7430CgC3% (BldA) [Mass fraction]95 %Beltran Hall MD Work Phone: bon [facility]12-28-2022 10:00-0500Systolic blood dynteejr879 mm[Hg]Beltran Hall MD Work Phone: HON [facility]12-28-2022 09:30-0500Body yjwsqtrqmzb64.3 [degF]Beltran Hall MD Work Phone: BON [facility]12-28-2022 06:15-0500Body opdnxs879.3 cmTdaja Hall MD Work Phone: [facility]-28-2022 06:15-0500Body mass index (BMI) [Ratio]23.63 kg/s4MmdrvvkBeltran Hall MD Work Phone: BSMOOTH [facility]12-28-2022 06:15-0500Body ijhlvb34.58 kgBeltran Hall MD Work Phone: MPV [facility]12-21-2022 15:21-0500Heart rate55 /minZachary Zumbar [facility]12-21-2022 15:21-5631VgK3% (BldA) [Mass fraction]98 %Marcel Zumbar [facility]12-21-2022 15:21-0500 Respiratory rate20 /minZachary Zumbar [facility]12-21-2022 15:20-0500 Diastolic blood nshjntgu78 mm[Hg]Marcel Zumbar [facility]12-21-2022 15:20-0500Mean blood lfckgvic293 mm[Hg]Marcel Zumbar [facility]12-21-2022 15:20-0500 Systolic blood mm[Hg]Marcel Zumbar [facility]12-21-2022 15:17-0500 Diastolic blood mm[Hg]Marcel Zumbar [address] [place], [place] 9280412-21-2022 15:17-0500 Systolic blood wxpajedj686 mm[Hg]Marcel Zumbar [address] [place], [place] 9280412-21-2022 15:14-0500 Diastolic blood deqnibnz05 mm[Hg]Marcel Zumbar [address] [place], [place] 9280412-21-2022 15:14-0500Heart rate58 /minZachary Zumbar [address] [place], [place] 9280412-21-2022 15:14-0500 Respiratory rate16 /minZachary Zumbar [address] [place], [place] 9280412-21-2022 15:14-3940PvX6% (BldA) [Mass fraction]95 %Marecl Zumbar [address] [place], [place] 9280412-21-2022 15:14-0500 Systolic blood kfbvplon215 mm[Hg]Marcel Zumbar [address] [place], [place] 9280412-21-2022 14:21-0500Heart rate61 /minZachary Zumbar [address] [place], [place] 9280412-21-2022 14:21-5595CzR1% (BldA) [Mass fraction]98 %Marcel Zumbar [address] [place], [place] 9280412-21-2022 14:09-0500Mean blood ifjwgtzm552 mm[Hg]Marcel Zumbar [address] [place], [place] 9280412-21-2022 14:08-0500Body taonjswyjvx78.52 [degF]Marcel Zumbar [address] [place], [place] 9280412-21-2022 14:06-0500 Respiratory rate15 /minZachary Zumbar [address] [place], [place] 9280412-07-2022 08:05-0500 Diastolic blood rnmziwzq06 mm[Hg]Marcel Zumbar [facility]12-07-2022 08:05-0500Heart rate55 /minZachary Zumbar [facility]12-07-2022 08:05-0500Mean blood sahaowhb871 mm[Hg]Marcel Zumbar [facility]12-07-2022 08:05-0500 Systolic blood leydbyhr502 mm[Hg]Marcel Zumbar [facility]11-15-2022 08:23-0500Blood Pressure LocationMichael NILL 105-5647Xhpnkn-KfjzfMer[facility] [place] 04-05-2022 08:23-0500Diastolic blood ofvhhpdw910 mm[Hg]Iftikhar NILL 519-5025Wlyfcq-XbbesMercy Health [facility] [place] 04-05-2022 08:23-0500Heart rate67 /minMichael NILL 696-7274Ehuvlj-JtlodGlenbe[facility] [place] 04-05-2022 08:23-0500Respiratory rate16 /minMichael NILL 510-0562Afgvph-SjjqcMercy Health [facility] [place] 04-05-2022 08:23-0500Systolic blood ahhhdbzf820 mm[Hg]Iftikhar NILL 581-4513Cylrax-LqkkxGlenbeigh [facility] [place] 03-17-2022 13:05-0400Diastolic blood imrebqeo44 mm[Hg]Henry FREITAS 978-1217Oghbhn-LbwouSumma Health 03-17-2022 13:05-0400Mean blood kcobopin125 mm[Hg]Henry FREITAS 805-2227Yprzpg-QfajnSumma Health 03-17-2022 13:05-0400Systolic blood mm[Hg]Henry NIXON 898-9052Rlrhgh-Dpfrq[address] [place] [address] 03-17-2022 08:25-0400Blood Pressure LocationChsongtopher FREITAS 615-0825Dsrjmb-Pzmya[address] [place] [address] 03-17-2022 08:25-0400Body uuxoytuldmq83.42 [degF]Ketanlilliamaracelis NIXON 855-9728Znfgbe-Cvkgm[address] [place] [address] 03-17-2022 08:25-0400Diastolic blood ssqeghlp91 mm[Hg]Henry NIXON [address] [place] [address] 03-17-2022 08:25-0400Heart rate77 /minChristopher NIXON [address] [place] [address] 03-17-2022 08:25-0400Respiratory rate16 /minChristopher NIXON [address] [place] [address] 03-17-2022 08:25-6891PdP6% (BldA) [Mass fraction]94 %Henry FREITAS 641-1167Ynxqck-Pykaw[address] [place] [address] 03-17-2022 08:25-0400Systolic blood sqfpemmg587 mm[Hg]Henry FREITAS 005-7964Uygleh-Ipzte[address] [place] [address] 03-04-2022 08:05-0400Diastolic blood hcqibevi61 mm[Hg]Jillian Aranda [facility]10-14-2022 08:05-0400Heart rate65 /minAmanda TownSquared [facility]10-14-2022 08:05-0400Mean blood jzcsyfdk944 mm[Hg]Jillian [facility]10-14-2022 08:05-0400 Respiratory rate14 /minAmanda Aranda [facility]10-14-2022 08:05-0400 Systolic blood ekvyqzmm353 mm[Hg]Jillian Aranda [address] [place], [place] [id number] 08:46-0400 Diastolic blood mm[Hg]Marcel Zumbar [address] [place], [place] [id number] 08:46-0400Heart rate62 /minZachary Zumbar [address] [place], [place] [id number] 08:46-0400Mean blood mm[Hg]Marcel Zumbar [address] [place], [place] [id number] 08:46-2920JzK4% (BldA) [Mass fraction]97 %Marcel Zumbar [address] [place], [place] [id number] 08:46-0400 Systolic blood kfcxpros609 mm[Hg]Marcel Zumbar [address] [place], [place] [id number] 08:46-0400 Respiratory rate16 /minZachary Zumbar [facility]09-14-2022 08:39-0400 Diastolic blood vaulpdnz39 mm[Hg]Marcel Zumbar [address] [place], [place] [id number] 08:39-0400Heart rate61 /minZachary Zumbar [address] [place], [place] [id number] 08:39-0400 Respiratory rate16 /minZachary Zumbar [address] [place], [place] [id number] 08:39-1548ErK7% (BldA) [Mass fraction]96 %Marcel Zumbar [address] [place], [place] [id number] 08:39-0400 Systolic blood mm[Hg]Marcel Rembertoumbar [address]09-14-2022 07:34-0400Body houygepqumm11.88 [degF]Marcel Rembertoumbar [address]09-14-2022 07:34-0400 Diastolic blood mobrovfw58 mm[Hg]Marcel Rembertoumbar [address] [place], [place] [id number] 07:34-0400Heart rate64 /minZamarianory Rembertoumbar [address] [place], [place] [id number] 07:34-0400Mean blood zldedgpx063 mm[Hg]Marcel Rembertoumbar [address] [place], [place] [id number] 07:34-0400 Respiratory rate16 /minZamarianory Rembertoumbar [address] [place], [place] [id number] 07:34-2133JlG1% (BldA) [Mass fraction]95 %Marcel Hager [address] [place], [place] [id number] 07:34-0400 Systolic blood gjubdkbv721 mm[Hg]Marcel Rembertoumbar [address] [place], [place] [id number] 12:42-0400 Diastolic blood mm[Hg]Jillian [employer] [address] [place], [place] [id number] 12:42-0400Heart rate81 /minAmanda [employer] [address] [place], [place] [id number] 12:42-0400Mean blood gfyefhiz07 mm[Hg]Jillian [employer] [address] [place], [place] [id number] 12:42-0400 Respiratory rate12 /minAmanda [employer] [address] [place], [place] [id number] 12:42-0400 Systolic blood mm[Hg]Jillian Aranda [facility]05-04-2022 13:41-0400Body .3 Marika Yan MD Work Phone: [facility]05-04-2022 13:41-0400Body fbfysj66.65 kgAmilcar Yan MD Work Phone: [facility]04-27-2022 15:10-0400Blood Pressure LocationYairleigh DONNAMILLER [phone]-FscbvPaulding County Hospital [place] 04-27-2022 15:10-0400Body ewfoqbmheah55.7 [degF]Magalie DONNAMILLER [phone]-AlkxrBlanchard Valley Health [facility] [place] 04-27-2022 15:10-0400Diastolic blood uhannkyz10 mm[Hg] Magalie DONNAMILLER [phone]-NtgblMercy Health Family Medicine [place] 04-27-2022 15:10-0400Heart rate70 /minYairleicallie DONNAMILLER [phone]-TxdwlBlanchard Valley Health [facility] [place] 04-27-2022 15:10-0400Respiratory rate16 /minYairleicallie DONNAMILLER [phone]-MvbysPaulding County Hospital [place] 04-27-2022 15:10-2369FdN3% (BldA) [Mass fraction]96 % Magalie DONNAMILLER [phone]-OtvlyPaulding County Hospital [place] 04-27-2022 15:10-0400Systolic blood qbovlpfd113 mm[Hg] Magalie DONNAMILLER [phone]-RbreiMercy Health Family Medicine [place] 08-27-2021 08:00-0400Body hsdyzfdhdrj52.1 [degF]Neftali Galvin MD Work Phone: [facility] [employer] Work Phone: 1(124) 483-194308-27-2021 08:00-0400Diastolic blood dvlnpoau88 mm[Hg] Neftali Galvin MD Work Phone: [facility] [employer] Work Phone: 1(955) [phone] 08:00-0400Heart rate66 /minNeftali Galvin MD Work Phone: [facility] [employer] Work Phone: 1(344) 398-279308-27-2021 08:00-0400Respiratory rate16 /minNeftali Galvin MD Work Phone: [facility] [employer] Work Phone: 1(250) 593-682608-27-2021 08:00-3650FkH6% (BldA) [Mass fraction]98 % Neftali Galvin MD Work Phone: [facility] [employer] Work Phone: 1(377) 414-291308-27-2021 08:00-0400Systolic blood kuauajdf677 mm[Hg] Neftali Galvin MD Work Phone: [facility] [employer] Work Phone: 1(425) [phone] 06:00-0400Body mass index (BMI) [Ratio]24.9 kg/m2Neftali Galvin MD Work Phone: [facility] [employer] Work Phone: 1(884) 523-958708-27-2021 06:00-0400Body ppxbvy97.48 kgNeftali Galvin MD Work Phone: [facility]: 1(347) [phone] 23:29-0400Body .3 cmNeftali Galvin MD Work Phone: [facility] Work Phone: 1(916) 419-490508-24-2021 18:59-0400Diastolic blood zrrsbyjb16 mm[Hg] Shanel Fritz MD Work Phone: [facility] Work Phone: 1(594) 344-632708-24-2021 18:59-0791XqW8% (BldA) [Mass fraction]91 % Shanel Fritz MD Work Phone: 1(150)730-[address] [place], [place] [address] Work Phone: 1(160) 110-494608-24-2021 18:59-0400Systolic blood wycrxsql605 mm[Hg] Shanel Fritz MD Work Phone: [facility] Work Phone: 1(420) 279-182408-24-2021 14:35-0400Heart rate85 /minShanel Fritz MD Work Phone: 1(443)[facility] [place], [place] [address] Work Phone: 1(199) 543-180808-24-2021 14:35-0400Respiratory rate22 /minShanel Fritz MD Work Phone: 1([phone] [place], [place] [address] Work Phone: 1([phone]) 624-980908-24-2021 08:46-0400Body tjdspgvlyoo26.71 [degF]Shanel Fritz MD Work Phone: [phone] Work Phone: 1(604) 490-647708-24-2021 08:43-0400Body semyzv856.3 cmShanel Fritz MD Work Phone: [facility] Work Phone: 1(345) 158-152808-24-2021 08:43-0400Body mass index (BMI) [Ratio] 23.63 kg/m2Shanel Fritz MD Work Phone: [facility] Work Phone: 1(783) 333-267008-24-2021 08:43-0400Body .58 kgShanel Fritz MD Work Phone: [facility] Work Phone: 1(186) [phone] 11:30-0500BP Hjoijsfhn23 mm[Hg][facility], IW61-27-8668 11:30-0500BP Kecznpbh925 mm[Hg]Ankita VázquezBucyrus Community Hospital, VJ30-61-4295 11:30-0500Pulse (Heart Rate)63 /min Ankita YipWayne HealthCare Main [facility], AY07-46-0551 11:30-0500Pulse Adgzoqeg75 % Ankita PrasadCleveland Clinic Hill[facility], VN65-72-3005 11:30-0500Respiratory Rate16 /min Ankita Prasadbrown memorial hospitalclintonWayne HealthCare Main Campus, PS46-31-4168 10:30-0500Body Aintpulmnyx18.5 [degF]Ankita [facility], ND63-52-0943 07:30-0500BMI (Body Mass Index)23.48 kg/e9Qivhqa [facility], VW15-64-5522 07:30-0500Body jpzyxo18.12 kgendy [facility], ZU82-28-0101 07:30-0500Height 175.3 [facility], JU96-30-2361 09:00-0500BP Hwvuxahts92 mm[Hg]Ankita [facility], QG17-13-9459 09:00-0500BP Eptcqysi340 mm[Hg]Ankita [facility], QW62-66-7009 09:00-0500Pulse (Heart Rate)66 /minendy [facility], JN16-57-2164 09:00-0500Pulse Soskslhe24 %Ankita [facility], BX11-79-0634 09:00-0500Respiratory Rate18 /minendy [facility], RC50-89-3980 08:30-0500Body Zzqwyyrrxut93.2 [degF]Ankita [facility], SB76-64-1428 06:31-0500 BMI (Body Mass Index)23.63 kg/q7PfeolrSanta Ynez Valley Cottage [facility], TS92-80-9319 06:31-0500Body prikmq84.58 kgThomas [facility], DP62-68-9171 06:31-9556Jxvkpv652.3 cmTjose antonio VázquezBucyrus Community Hospital, BF29-13-6777 18:03-0500BP Yxcgqdlax37 mm[Hg][facility] Departmentkinga [facility], WH48-59-6397 18:03-0500BP Wqsfaedz630 mm[Hg][facility], XZ19-36-9971 18:03-0500Pulse Qdsyxsdp50 %[facility] Departmentkinga [facility], AA43-98-3862 15:00-0500Body Vrwrjrzhygp33.71 [degF][facility] Departmentkinga [facility], [place] 06-04-2020 14:58-0500BMI (Body Mass Index)24.03 kg/w7Nldffaqwzxt [facility], YW35-49-7823 14:58-0500Body .98 kgChStephens Memorial Hospital, LU40-48-2245 14:58-1814Qahkio647.8 cmChrvirtua our lady of lourdes medical centeraracelis [facility], GW08-64-5283 14:58-0500Pulse (Heart Rate)79 /minNorthern Light [facility]cy [facility], SZ00-18-4199 14:58-0500Respiratory Rate18 /minNorthern Light Mercy Hospital, [place] Encounters Encounter DateEncounter TypeCare ProviderFacilityStart: 29-27-5747jdlnutfbidlena RamonFacility: ardStart: 03-06-2025 End: 27-49-8597ecscxshicdXdyty L. BryantFacility: WillardStart: 03-06-2025 End: 69-18-7222Aqinouz encounter procedureSherie Ramon [phone]-HeicsMercy Health Family Medicine [place] Start: 83-23-0009ygxfamwlszNBFEM [facility] Hospital[facility]art: 01-13-2025 End: 11-46-9657lbgrbyijebVttbx L. BryantFacility: tart: 01-13-2025 End: 52-21-8845Kuuuchn encounter procedureTacarey Ramon [phone]-TodxbBlanchard Valley Health System [facility] [place] Start: 18-60-4962kszkndlndxKVVQQ [facility] Hospitaltart: 23-28-3379nnjhafcunlJZRXSU [facility] Hospitaltart: 67-78-8371lytttoncfwPZWGQFoothills Hospitaltart: 12-02-2024 End: 06-40-3016upfdsznbewPlaxn Hardy RamonFacility: tart: 12-02-2024 End: 77-10-3170Unzokhh encounter procedureTacarey Ramon [phone]-DllpgSt. Francis Hospitalard Start: 11-18-2024 End: 79-05-4099bbbtlvgmwkEvmatamIgnacia Ye MDFacility:PM Abel[place] Start: 11-12-2024 End: 88-47-8317avgresxmoaXOBRZUIYPremier Health Upper Valley Medical Centertart: 11-06-2024 End: 34-74-4174lgryllsnxyAHFAQIZMPremier Health Upper Valley Medical Centertart: 11-06-2024 End: 99-12-6101fyljsoqtigWJAYXPTM T HOYTFacility:FTMCStart: 11-06-2024 End: 85-64-0316Wwcduoa encounter procedureALASTAIR T MICHELLE [facility] Start: 11-06-2024 End: 11-01-6598srfgyofvksKWJVYKDNPremier Health Upper Valley Medical Centertart: 10-28-2024 End: 08-66-3575kczxfazuazQXJJTQ [facility]art: 10-28-2024 End: 08-47-1897Ujjiemmzou hospital visit by Anabel Oneal MD Work Phone: [facility] UltrasoundComment on above: Bilateral carotid bruitsStart: 10-22-2024 End: 00-38-8232fjwxgxwavbOSSGCXUVFulton County Health Centertart: 10-22-2024 End: 31-99-0590fxrkchocujLKVTHWZBFulton County Health Centertart: 10-21-2024 End: 18-32-3255wvflcqzmidZFEKIZZTFulton County Health Centertart: 09-17-2024 End: 14-90-1835emajmnawerUFSTOhioHealth Arthur G.H. Bing, MD, Cancer Centertart: 09-17-2024 End: 42-45-9253Wutzrhoiws hospital visit by physicianMwh Additional [facility] RadiologyComment on above:ArrivedKidney stonesStart: 09-03-2024 End: 77-16-3805Xazpgez encounter procedureChristopher Phillips DO Work Phone: ana SANDUSKYComment on above:Lumbar radiculopathy (Primary Dx)Start: 09-03-2024 End: 30-43-7191liuwkibpozLZEHXEKSCUR ALANNot AvailableStart: 08-19-2024 End: 76-41-2643wnmfuqqargRzkeaja Vytautas Giedraitis Facility:PM [place] Start: 07-30-2024 End: 93-71-7614oinpzlszpwDfpyt L. BryantFacility:FM WillardStart: 07-04-2024 End: 52-17-2307averdprtuiGekdy L. BryantFacility:CD:[id number]: 07-01-2024 End: 33-45-8960Vwyoductj encounterAmilcar Yan MD Work Phone: [facility] LOStart: 07-01-2024 End: 78-63-6286Eslukxgbqt and management of inpatientTimdany Hall MD Work Phone: M[facility] 4W Med Surg UnitComment on above:Ileostomy dysfunction (HCC) (Primary Dx)Start: 06-10-2024 End: 50-90-1153szakxnoolaLWXMUMercy Hospital St. Louistart: 06-10-2024 End: 54-85-6865Nlpuglkmxt hospital visit by Herbert Hall MD Work Phone: mlOZ ORComment on above:Colon cancer screeningStart: 06-04-2024 End: 60-41-9237akdnrxspjjMvlre L. BryantFacility:FM WillardStart: 06-04-2024 End: 12-26-2806Xfeobwv encounter procedureSherie Ramon [phone]-PfsoaMercy Health Family Medicine [place] Start: 05-08-2024 End: 78-58-6557lguwnydltzNJMFB [facility] Hospitaltart: 05-08-2024 End: 89-56-5576Uthzzsvygx hospital visit by physician[facility] [address] OP NursingStart: 05-05-2024 End: 22-28-3774xwqgnutmbcGKBTBFirelands Regional Medical Center South Campustart: 05-04-2024 End: 25-91-4683kjvaxuoacaEEGNIWexner Medical Centertart: 05-04-2024 End: 41-30-3208Fyhikexlmf hospital visit by physicianLong [facility] [address] OP NursingComment on above:Candidiasis (Primary Dx); Perforation and abscess of large intestine concurrent with and due to diverticulitisStart: 05-03-2024 End: 83-68-2149rvjkhifpkoKLODNFirelands Regional Medical Center South Campustart: 05-03-2024 End: 22-75-6252Twzublbces hospital visit by physicianLong [facility] Op Treatment [place] [facility] OP NursingComment on above:Candidiasis (Primary Dx); Perforation and abscess of large intestine concurrent with and due to diverticulitisStart: 05-02-2024 End: 40-90-4609xqjhobxgqtQMGUA [facility] Hospitaltart: 05-02-2024 End: 99-38-5625Kmiakwqjhs hospital visit by physicianLong [facility] Treatment [place] [facility] OP NursingComment on above:Candidiasis (Primary Dx); Perforation and abscess of large intestine concurrent with and due to diverticulitisStart: 05-01-2024 End: 00-83-0722pyqggdpnfkYGCRR BRYANTMersudha [place] HospitalStart: 04-30-2024 End: 75-82-9959Xafrogp encounter procedureTacarey Ramon [phone]-AxbynMercy Health Family Medicine [place] Start: 04-30-2024 End: 24-08-0864mhyvnjajvgYUBDG YAOCleveland Clinic [facility] HospitalStart: 04-30-2024 End: 56-27-9234Rrimtohwhn hospital visit by physicianLong [facility] [place] [address] [place] [address] NursingComment on above:Candidiasis (Primary Dx); Perforation and abscess of large intestine concurrent with and due to diverticulitisStart: 04-29-2024 End: 80-95-4934afkzdqcsuqVNHM [facility] HospitalStart: 04-29-2024 End: 01-62-0618Mjtxsogfvr hospital visit by physicianLong [facility] Op [facility] [place] [facility] OP NursingComment on above:Candidiasis (Primary Dx); Perforation and abscess of large intestine concurrent with and due to diverticulitisStart: 04-28-2024 End: 19-50-4233enozkokyauSDTT A [facility] HospitalStart: 04-28-2024 End: 72-76-4407Xmdrpytndi hospital visit by physicianLong [facility] Op Treatment [place] [facility] OP NursingComment on above:Candidiasis (Primary Dx); Perforation and abscess of large intestine concurrent with and due to diverticulitisStart: 04-27-2024 End: 60-35-9126bribczpnnfQVEC A [facility] HospitalStart: 04-27-2024 End: 46-02-2548Selhdpadym hospital visit by physicianLong [facility] Op [facility] [place] [facility] OP NursingComment on above:Candidiasis (Primary Dx); Perforation and abscess of large intestine concurrent with and due to diverticulitisStart: 04-26-2024 End: 77-21-9003tkdsvqcyieNGLL [facility] Ohiotart: 04-26-2024 End: 50-51-8442Cfcsljoswo hospital visit by physicianLong [facility] Op Treatment [place] [facility] OP NursingComment on above:Candidiasis (Primary Dx); Perforation and abscess of large intestine concurrent with and due to diverticulitisStart: 04-26-2024 End: 42-79-7917tgljdgwigeLsygv Hardy RamonFacility:CD:[id number]: 04-22-2024 End: 99-38-2561gkrswwurruDfqvq LShaun RamonMarycility:CD:[id number]: 04-20-2024 End: 15-50-7463Nzxvfcazeg and management of inpatientHeather Scullin DO Work Phone: [facility] REHABComment on above:Bilateral sciatica (Primary Dx); Multiple joint pain; Ileostomy in place (HCC); Status post splenectomy; Spondylosis of lumbar spine; Post-op painStart: 04-10-2024 End: 31-02-1914Sowidwevnc and management of inpatientBeltran Hall MD Work Phone: [facility] 4W Med Surg UnitStart: 04-03-2024 End: 69-52-3994uocmtoqbztJJPZCFoothills Hospitaltart: 04-03-2024 End: 05-53-2319Kdaivrymts hospital visit by physicianmary [facility] 2 RnMagruder Hospitalcy Pre- Admission TestingStart: 03-11-2024 End: 16-26-7703qmtidyjsfpGavqnpp Vytautas Gity BURNETTEFacility:PM [place] Start: 02-28-2024 End: 23-20-6934ljhxwekbfpLxgnhehh C BordnerFacility:CC Ismaeltart: 02-28-2024 End: 82-12-6941Koarcak encounter procedureMirian Ugarte [phone]-VpdjnMercy Health Con[facility] Care Start: 02-26-2024 End: 70-48-9084dagntrllfkCprrqqq Robert Ye MDFacility:PM [place] Start: 02-21-2024 End: 47-75-6460perdjiimeiSZKTD BRYANTMedical Center of the Rockiestart: 02-02-2024 End: 64-89-4128anrnzwgpjsRtfrz L. BryantFacility:FM WillardStart: 02-02-2024 End: 43-38-8228Adrmxwm encounter procedureSherie Ramon [phone]-CwohoPaulding County Hospital [place] Start: 01-01-2024 End: 54-31-9635jvzqghoyzdYftots SpringerFacility:FTMCStart: 01-01-2024 End: 77-77-0806Wrpn ManagementSt. Joseph'S Wayne Hospitaljosie Aranda [facility] Start: 12-27-2023 End: 41-67-2552dlkizovoijIkqnvcyb A. JonesFacility:FTMCStart: 12-27-2023 End: 03-75-0830Vgwo ManagementCresencio Andrade [facility] Start: 09-07-2023 End: 46-91-2422Brwt ManagementCresencio Andrade [facility] Start: 08-02-2023 End: 67-18-5223Hbdr ManagementCresencio Andrade [facility] Start: 08-01-2023 End: 67-35-0129Vkx Drop offSherie Ramon [facility] Start: 08-01-2023 End: 59-65-7183Tixrubx encounter procedureSherie Ramon [phone]-HccbiPaulding County Hospital [place] Start: 06-16-2023 End: 63-85-4189Rmbw [facility] Start: 04-07-2023 End: 98-90-0868Xbjn [facility] Start: 02-10-2023 End: 77-16-1939Ycau [facility] Start: 02-07-2023 End: 75-65-2135Erzsgeo encounter procedureSherie Ramon [phone]-XmzpuPaulding County Hospital [place] Start: 28-33-5871Nrqhxogfp encounterAmilcar Yan MD Work Phone: [facility] LOComment on above: Refill Request (Pletal)Start: 01-18-2023 End: 56-55-8992Buqk [facility] Start: 01-10-2023 End: 08-04-7557Tcywedimtr hospital visit by Itzel Yan MD Work Phone: [facility] UltrasoundComment on above: Aneurysm of infrarenal abdominal aorta, unspecified whether ruptured (HCC)Start: 11-11-2022 End: 20-00-6031Tvwc [facility] Start: 16-03-6339Dhbahggng Evie Yan MD Work Phone: [facility] WLComment on above: Medication Assistance (Patient out of Pletal, requesting new Rx )Start: 10-14-2022 End: 19-64-3052Vepn [facility] Aranda [facility] Start: 09-21-2022 End: 95-02-2070Zqxp [facility] Start: 35-08-0439Zuyca abstractReece Yan MD Work Phone: [facility] LOComment on above: AbstractStart: 08-19-2022 End: 78-97-8823Xhwc [facility] Start: 08-08-2022 End: 12-59-4072Atjijbgblu hospital visit by physicianLorabdiel Ultrasound [address] [place] [address] UltrasoundComment on above: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)Infrarenal abdominal aortic aneurysm (AAA) without rupture Start: 07-27-2022 End: 51-92-0581Oyhx [facility] Start: 07-22-2022 End: 07-95-5650Coivihk encounter procedureTacarey Ramon [phone]-UztolMercy Health Family Medicine [place] Start: 06-10-2022 End: 10-84-9952Hfpr [facility] Start: 05-18-2022 End: 26-53-5332Rlaaawtfrg hospital visit by Herbert Hall MD Work Phone: OZ ORComment on above:Colon cancer screeningStart: 05-11-2022 End: 52-20-0863Duhb ManagementZaacmc healthcare system glenbeighry Zumbar [facility] Start: 04-29-2022 End: 97-28-9938Kpnkwvp encounter procedureZachary Zumbar [facility] Start: 04-27-2022 End: 07-26-2083Yzyo ManagementZaacmc healthcare system glenbeighry Zumbar [facility] Start: 04-05-2022 End: 17-87-6743Jombqwu encounter procedureMichael R NILL [phone]-CdnohMercy Health General Surgery [place] Start: 03-17-2022 End: 75-65-9705Tba Drop offChristop NIXON [facility] Start: 03-17-2022 End: 74-71-8824Fqmtxnh encounter procedureChristopher FREITAS [phone]-XmqiwMercy Health Family Medicine [place] Start: 03-04-2022 End: 18-94-3255Hxev ManagementJillian TownSquared [facility] Start: 02-24-2022 End: 41-51-9287Pexaagmwei hospital visit by physicianManning Regional Healthcare Centerain Ultrasound [address] [place] [address] UltrasoundComment on above:Bilateral carotid bruitsStart: 02-02-2022 End: 89-55-2772Agsq ManagementZamarianory Zumbar [facility] Start: 12-27-2021 End: 33-15-8684Lfcg ManagementJillian TownSquared [facility] Start: 09-15-2021 End: 08-70-9709Vdwtxey encounter arnaudMagalie HENNING [phone]-YgngoMercy Health Family Medicine [place] Start: 09-13-2021 End: 64-10-5948Itfnclsgof hospital visit by physicianLorain Ultrasound 2MPremier Health [facility] UltrasoundComment on above:Abdominal aortic aneurysm without rupture (HCC)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)Start: 07-28-2021 End: 38-27-3716Fnlttrwpoo hospital visit by physicianMwh Additional Xray At [facility] RadiologyComment on above:Kidney stonesStart: 05-05-2021 End: 02-54-3505Krndwedilo hospital visit by physicianCallahan Nuclear Medicine Room 3MPremier Health [facility] Nuclear MedicineComment on above:ArrivedStart: 02-08-2021 End: 84-57-6674Ftjvfiznlm hospital visit by [facility] [address] [place] [address] CT ScanComment on above:AbscessStart: 02-08-2021 End: 40-28-2305Qtmwqgubn to Cristobal Brock MD Work Phone: [facility] UltrasoundStart: 02-08-2021 End: 60-88-4228Iqgawkknnc hospital visit by Oleksandr Brock MD Work Phone: [facility] UltrasoundComment on above:Colonic diverticular abscess; Encounter for preadmission testing; AbscessStart: 01-12-2021 End: 50-72-1529Dvlsfmwvza and management of inpatientMARK ANDRIAFormerly Vidant Roanoke-Chowan Hospitallobo [facility] Hospitaltart: 01-12-2021 End: 87-72-0947Gzgfcewmvw and management of inpatientNeftali Galvin MD Work Phone: stVZ Renal//Med SurgStart: 01-12-2021 End: 68-99-8818Swwbissic department patient visitShanel Fritz MD Work Phone: [facility] EDComment on above:Colonic diverticular abscess (Primary Dx)Start: 06-18-2020 End: 96-28-4501Vhfkidt encounter procedureENCOMPASS [facility] Shawn [facility] Hospitaltart: 06-18-2020 End: 18-50-0614Qhfojzdfcj hospital visit by physicianAnkita Yip Work Phone: mthz ORStart: 06-11-2020 End: 32-81-3418Ghniqturgo hospital visit by physicianHellen Covid19 Pat Screening ScheduleMWHZ PRE ADMITComment on above:ArrivedStart: 06-05-2020 End: 11-81-6333Tdcsdgv encounter procedureFairmont Regional Medical [facility] Start: 06-05-2020 End: 26-73-5373Caoqlnqwtf hospital visit by physicianAnkita Yip Work Phone: mthz ORComment on above:Kidney stoneStart: 06-04-2020 End: 52-85-9333Jhsuxngaj department patient visitChrisneda Mic Anshu Work Phone: [facility] EDComment on above:Left renal stone (Primary Dx); Abdominal aortic aneurysm (AAA) without rupture (HCC)Start: 10-19-2016 End: 45-70-9793DoitgrnitgQPJHVJC NILLFacility:H1 Procedures DateProcedureProcedure DetailPerforming ClinicianStart: 73-74-0034Pufrnr-up visitFollow-upALASTAIR HOYTStart: 09-72-9838MR myelogram of lumbar region DAYANNEW [facility] Start: 89-71-4193Pnefex scan extracranial art compl bi Merlene Oneal MD Work Phone: Start: 09-03-2024 End: 35-86-5337Vpsqrp emg ea extremty w/paraspinl area completeChristopher Alan NORTH Work Phone: Start: 41-18-4491Buasj count complete auto&auto difrntl wbcTimdany Hall MD Work Phone: Start: 23-55-6191Qvumc metabolic panel calcium total Beltran Hall MD Work Phone: Start: 07-01-2024 End: 91-52-5362Khiftys enterostomy lg/small intestineBeltran Hall MD Work Phone: Start: 06-10-2024 End: 78-42-7855FlkyqszspycKrercgw P O'Donnell MD Work Phone: Start: 06-02-2024H/O: ileostomyTammy Heavenly. Tristen Start: 68-27-9936H-reactive proteinVeronica Mariscal MD Work Phone: Start: 32-20-1633Haesiqsxotzsj metabolic panelVeronica Mariscal MD Work Phone: Start: 04-28-2024H/O: ileostomyTammy L. Tristen Start: 01-18-2636Cwjyb metabolic panel calcium total Shanel Espinoza MD Work Phone: Start: 55-44-2125F-reactive proteinVeronica Mariscal MD Work Phone: Start: 30-01-0659VY WOUND CARE/OSTOMY NURSE EVAL AND TREATHeather Scullin DO Work Phone: Start: 92-50-4850LL WOUND CARE/OSTOMY NURSE EVAL AND TREATHeather Scullin DO Work Phone: Start: 13-47-5619Okzch metabolic panel calcium total Shanel Espinoza MD Work Phone: Start: 30-84-0443Gwrkovwraaxq pulse oximetryLiliana Keen MD Work Phone: Start: 55-80-3344VE WOUND CARE/OSTOMY NURSE EVAL AND Shamika Keen MD Work Phone: Start: 95-48-5446Vnyy bld gluc mntr dev cleared fda spec home useUnknown Provider ResultStart: 52-21-3190Gvasg function panelBeltran Hall MD Work Phone: Start: 27-63-6767Pdvc bld gluc mntr dev cleared fda spec home useUnknown Provider ResultStart: 22-19-7290Zcgiht ecg 1-3 leads w/interpretation & reportUnknown Provider ResultStart: 55-84-8948Esbz bld gluc mntr dev cleared fda spec home useUnknown Provider ResultStart: 54-38-0955C- reactive proteinVera Goldberg MD Work Phone: Start: 04-20-2024 End: 29-71-9118Yjnto function panelVera Goldberg MD Work Phone: Start: 02-85-6484Mmmc bld gluc mntr dev cleared fda spec home useUnknown Provider ResultStart: 41-02-1187Wgro bld gluc mntr dev cleared fda spec home useUnknown Provider ResultStart: 38-11-3478Ltrr bld gluc mntr dev cleared fda spec home useUnknown Provider ResultStart: 38-09-5172Hp abdomen & pelvis w/contrast materialTimdany Hall MD Work Phone: Start: 78-59-8010Xtby bld gluc mntr dev cleared fda spec home useUnknown Provider ResultStart: 04-19-2024 End: 67-11-7063Yuqnz function panelElysia Arteaga APPLICATION ADMINISTRATOR - PROCUREMENT BUYER Work Phone: Start: 04-19-2024 End: 95-09-2824Jdkacs ecg 1-3 leads w/interpretation & reportUnknown Provider ResultStart: 89-82-0499Hnri bld gluc mntr dev cleared fda spec home useUnknown Provider ResultStart: 65-22-9473Tujezo ecg 1-3 leads w/interpretation & report Unknown Provider ResultStart: 25-41-7121Orlm bld gluc mntr dev cleared fda spec home useUnknown Provider ResultStart: 89-15-7211Sgwc bld gluc mntr dev cleared fda spec home useUnknown Provider ResultStart: 25-96-8035Gmge bld gluc mntr dev cleared fda spec home useUnknown Provider ResultStart: 40-18-3678Crhdv function Sanjeev Arteaga APPLICATION ADMINISTRATOR - [facility] Work Phone: Start: 78-01-0889Tcbttp ecg 1-3 leads w/interpretation & reportUnknown Provider ResultStart: 44-77-5083Zfuq bld gluc mntr dev cleared fda spec home useUnknown Provider ResultStart: 30-52-4339Ypsr bld gluc mntr dev cleared fda spec home useUnknown Provider ResultStart: 10-40-9484Klrciq ecg 1-3 leads w/interpretation & reportUnknown Provider ResultStart: 99-55-1780Jbml bld gluc mntr dev cleared fda spec home useUnknown Provider ResultStart: 04-17-2024 Gluc bld gluc mntr dev cleared fda spec home useUnknown Provider ResultStart: 98-24-7709Rrsxovxdz picc w/rs&i 5 yr/>Veronica Mariscal MD Work Phone: Start: 04-75-0672Azhui function Sanjeev Arteaga APPLICATION ADMINISTRATOR - [facility] Work Phone: Start: 10-60-1568Zzrsyg ecg 1-3 leads w/interpretation & reportUnknown Provider ResultStart: 73-58-9286Nrsgv function Sanjeev Arteaga APPLICATION ADMINISTRATOR - [facility] Work Phone: Start: 04-16-2024 End: 05-32-4168Ydycjv ecg 1-3 leads w/interpretation & reportUnknown Provider ResultStart: 16-66-3042MW WOUND CARE/OSTOMY NURSE EVAL AND Ester Hall MD Work Phone: Start: 10-24-1919Xhntpmb function Al Dyer MD Work Phone: Start: 44-61-1970Osuvw function Al Dyer MD Work Phone: Start: 44-23-0532Tezn bld gluc mntr dev cleared fda spec home useUnknown Provider ResultStart: 70-15-7955Iipm bld gluc mntr dev cleared fda spec home useUnknown Provider ResultStart: 47-44-2431Ilvf bld gluc mntr dev cleared fda spec home useUnknown Provider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 series)COVID- 19 Vaccine (3 - Booster for Pfizer series)[facility] CenterStnotre dame: 63-09-3642Tdtngubuz vaccinationFlu vaccine (#1)[facility]: 21-45-4946OMFFS-19 Vaccine (3 - Booster for Pfizer series)COVID-19 Vaccine (3 - Booster for Pfizer series)[facility]OS[facility]ITALStnotre dame: 75-47-8700CYHBN-19 VACCINE (3 - Pfizer series)COVID- 19 VACCINE (3 - Pfizer series)[facility]: 06-25-2020 End: 85-69-5029Ildhlv Visit06/25/2020 Office Visit Urology Marco Santiago PA-C [address] [facility] [address] [place] [address] [phone] [facility] UrologyStart: 06-18-2020 End: 28-47-4686Uhnvslxe EncounterMTHZ ORComment on above:CYSTOSCOPY URETEROSCOPY LASER-WITH HLLStart: 06-05-2020 End: 13-08-6624Kodybckq EncounterMTHZ ORComment on above:CYSTOSCOPY STENT INSERTIONStart: 10-66-7343Jvxwhegrj vaccinationFlu vaccine (#1)[facility] CampusDANOStart: 91-35-0229Urdhb panelLipid [facility] [employer] Work Phone: start: 24-11-3139Fimfk panelMetrohealth [facility] Heights Medical CenterStart: 68-96-6321BMIDYNAM CANCER SCREENING DISCUSSIONPROSTATE CANCER SCREENING DISCUSSIONMercy Health St. Charles Hospitaltart: 88-62-5748Fwguxlng specific antigen measurement Prostate Cancer Screening DiscussionMercy Health St. Charles Hospitaltart: 52-66-1406Sfuybnyht vaccinationLUNG CANCER SCREENINGMercy Health St. Charles Hospitaltart: 66-33-2793Dijbthbwg for malignant neoplasm of colonColon cancer screen colonoscopyLubb[place], [place] Start: 90-17-9441Etbcxocff for malignant neoplasm of lungMetrohealth Cleveland Heights Medical CenterStart: 00-91-0191Vwsxmzpb Vaccine (1 of 2)Shingles Vaccine (1 of 2)[facility] CenterStart: 60-90-0495WSAPVQHS VACCINE (1 of 2)SHINGRIX VACCINE (1 of 2)[facility] Start: 70-85-6867Sxo Secours [facility] CenterStart: 96-87-8619GQECSZQBH (FIT-DNA) COLOGUARD (FIT-DNA)[facility]art: 82-76-7349OtihrmhooglOZCCDRTVPMX [facility]tart: 51-65-0964IWATRUAOGU CANCER SCREENINGCOLORECTAL CANCER SCREENINGMercy Health St. Charles Hospitaltart: 22-88-6018SX COLONOGRAPHYCT COLONOGRAPHY [facility]: 66-21-7852JKEIHFTD SCREENDIABETES SCREENAcmc Healthcare System Glenbeigh Start: 44-39-3800LOHTS OCCULT BLOODFECAL OCCULT BLOODMercy Health St. Charles Hospitaltart: 22-54-1040Nnhcnxrlw for malignant neoplasm of colonMetrohealth [facility] Heights Medical CenterStart: 09-30-[address] Charles Hospitaltart: 65-48-8222Vainjrmh screen Diabetes screenMetrohealth Cleveland Heights Medical CenterStart: 14-10-5469Sefux panelLipid ScreeningMercy Health St. Charles Hospitaltart: 81-10-2412MHNEJ SCREENLIPID SCREENMercy Health St. Charles Hospitaltart: 09-30-1978 DTaP/Tdap/Td vaccine (1 - Tdap)DTaP/Tdap/Td vaccine (1 - Tdap)[place], [place]: 66-92-7544Zhgyweczzhjb Vaccine: 50+ (1 of 2 - PCV)Pneumococcal Vaccine: 50+ (1 of 2 - PCV)[facility]: 69-51-0629Vhuua microalbumin profile DTAP,TDAP,TD (1 - Tdap)[facility]: 80-77-3456Gbzmetw ScreeningAnxiety ScreeningMercy Health St. Charles Hospitaltart: 71-77-3590Hazdupdcbz ScreeningDepression ScreeningMercy Health St. Charles Hospitaltart: 19-59-6342Scyqnlqdk C screeningMetrohealth [facility] Center Start: 74-04-1665ICYEGRNNT C SCREENINGHEPATITIS C SCREENINGAcmc Healthcare System [facility] Start: 41-32-1219AHD SCREENINGHIV SCREENINGMercy Health St. Charles Hospitaltart: 74-38-5092PPV screeningHIV ScreeningMercy Health St. Charles Hospitaltart: 68-47-4031SGT screeningMetrohealth [facility] Start: 59-04-8722Wreiwuuimy ScreenDepression ScreenMetrohealth [facility] Heights Medical CenterStart: 1971 [facility] CenterStart: 22-02-6679HPDVODKAGDJZ (1 - PCV)PNEUMOCOCCAL (1 - PCV)[facility]: 13-65-7944Lvkgluwfhbnz 0-64 years Vaccine (1 - PCV) Pneumococcal 0-64 years Vaccine (1 - PCV)[facility]: 09-30-1966 Pneumococcal 0-64 years Vaccine (1 of 1 - PPSV23)Pneumococcal 0-64 years Vaccine (1 of 1 - PPSV23)[facility]art: 93-46-9097Vfolefanippt 0-64 years Vaccine (1 of 2 - PCV)Pneumococcal 0-64 years Vaccine (1 of 2 - PCV)[facility]: 09-34-5932Lahedvzvoxci 0-64 years Vaccine (1 of 2 - PPSV23) Pneumococcal 0-64 years Vaccine (1 of 2 - PPSV23)[facility]: 04-02-1961 COVID-19 VACCINE (#1)COVID-19 VACCINE (#1)[facility]: 1960 Hepatitis C screeningHelos angeles general medical [facility] C [facility] HospitalStart: 48-96-1297Zbbfuaotj for malignant neoplasm of colonNOMS HealthcareAcapellaBon [facility] AcapellaAcapella Respiratory Care Routine Daily until discontinued starting 4[facility] CenterComment on above:Daily until discontinued starting 04/21/2024 End: 37-79-0098Sfdbe metabolic 2000 panel - Serum or PlasmaBasic Metabolic Panel Lab Routine Every Mo,Th for 3 Weeks starting 04/22/2024 until 05/09/2024, 2 co mplIn[facility] San[employer] TechnologyCarondelet Health on above:Every Mo,Th for 3 Weeks starting 04/22/2024 until 05/09/2024, 2 completed End: 56-93-0494Ayiwx Occult Stool Screen #1Blood Occult Stool Screen #1 Lab Routine One Time for 1 Occurrences starting 01/12/2021 until 01/12/2021[employer] Phone: comment on above:One Time for 1 Occurrences starting 01/12/2021 until 01/12/2021 End: 02-53-8938IJZ W Auto Differential panel - [facility] [employer] End: 47-82-8377OVI W Auto Differential panel - BloodCBC with Auto Differential Lab Routine Every Mo,Th for 3 Weeks starting 04/22/2024 until 05/09/2024, 2 [facility] [employer] TechnologyCarondelet Health on above:Every Mo,Th for 3 Weeks starting 04/22/2024 until 05/09/2024, 2 completed End: 66-57-1428Mtexr- AmbulatoryCovid-19 Ambulatory Lab Routine Once for 1 Occurrences starting 06/11/2020 until 06/11/2020[facility] HospitalAutoUncleUNIVERSITY HOSPITALAbhishek on above:Once for 1 Occurrences starting 06/11/2020 until 06/11/2020ovid-19 AmbulatoryCovid-19 Ambulatory Lab Routine 06/11/2020 4:23 PM [facility], DANOCT ABDOMEN PELVIS W IV CONTRAST Additional Contrast? RectalCT ABDOMEN PELVIS W IV CONTRAST Additional Contrast? Rectal Imaging Routine Abscess 02/08/2021 1:23PM [facility] Phone: culture, Anaerobic and AerobicCulture, Anaerobic and Aerobic Microbiology Routine 01/13/2021 2:34 PM [facility] Phone: End: 15-68-4852Nabjkeg, UrineCulture, Urine Microbiology Routine Once for 1 Occurrences starting 06/04/2020 until 06/04/2020[facility], DANOComment on above:Once for 1 Occurrences starting 06/04/2020 until 06/04/2020ulture, Urine Culture, Urine Microbiology Routine 06/04/2020 5:00 PM [facility] [place] EKG 12 LeadEKG 12 Lead ECG Routine 06/05/2020 7:10 AM [facility], [place]ANO End: 16-87-0050Gavekyvswsb during operationFLUORO FOR SURGICAL PROCEDURES Imaging Routine Once for 1 Occurrences starting 06/18/2020 until 06/18/2020[facility], DANOComment on above:Once for 1 Occurrences starting 06/18/2020 until 06/18/2020Glucose [Mass/volume] in Serum or PlasmaPOCT Glucose Point of Care Testing STAT As Needed until discontinued starting 05/18/2022 [employer] Phone: comment on above:As Needed until discontinued starting 05/18/2022Glucose [Mass/volume] in Serum or PlasmaBon [employer] Glucose [Mass/volume] in Serum or PlasmaBon [employer] End: 50-52-3967Zkaccxz [Mass/volume] in Serum or PlasmaBon [employer] Glucose [Mass/volume] in Serum or PlasmaPOCT Glucose Point of Care Testing STAT As Needed until discontinued starting 06/10/2024 [employer] NetworkCarondelet Health on above:As Needed until discontinued starting 06/10/2024 End: 86-48-8296Bnsogdt [Mass/volume] in Serum or PlasmaPOCT Glucose Point of Care Testing Routine One Time for 1 Occurrences starting 07/01/2024 until 06/22 [employer] Phone: comment on above:One Time for 1 Occurrences starting 07/01/2024 until 07/01/2024 End: 51-08-6319NWIDVYRC PACU OXYGEN THERAPY PROTOCOLInitiate PACU Oxygen Therapy Protocol Respiratory Care Routine Continuous until discontinued starting 05/18/2022 [employer] Phone: comjnqu on above:Continuous until discontinued starting 05/18/2022 End: 84-71-6510HDHBWZBZ PACU OXYGEN THERAPY PROTOCOLBon [employer] Phone: End: 22-65-5596BXYFQWGH PACU OXYGEN THERAPY PROTOCOLInitiate PACU Oxygen Therapy Protocol Respiratory Care Routine Continuous until discontinued starting 06/10/2024 [employer] Phone: comment on above:Continuous until discontinued starting 06/10/2024Intermittent pulse oximetryPulse Oximetry Spot Check Respiratory Care Routine As Needed until discontinued starting 01/12/2021[employer] Phone: comment on above:As Needed until discontinued starting 01/12/2021NM MYOCARDIAL SPECT REST EXERCISE OR RXNM MYOCARDIAL SPECT REST EXERCISE OR RX Imaging Routine Pre-operative clearance 05/05/2021 10:59 AMEST [employer] Phone: Oxygen therapy [Minimum Data Set][employer] [place] Comment on above:Daily until discontinued starting 06/18/2020aily until discontinued starting 01/12/2021Oxygen therapy [Minimum Data Set][employer] Ultimate Football NetworkOxygen therapy [Minimum Data Set]Initiate Oxygen Therapy Protocol Respiratory Care Routine As Needed until discontinued starting 04/20/2024 [facility] on above:As Needed until discontinued starting 04/20/2024Oxygen therapy [Minimum Data Set]Initiate Oxygen Therapy Protocol Respiratory Care Routine Daily until discontinued starting 04/21/2024 [employer] Phone: Comment on above:Daily until discontinued starting 04/21/2024Oxygen therapy [Minimum Data Set]Initiate Oxygen Therapy Protocol Respiratory Care Routine As Needed until discontinued starting 07/01/2024 [facility] on above:As Needed until discontinued starting 07/01/2024Pathology studyBon Ultimate Football NetworkPathology studyBon Ultimate Football NetworkPathology studySurgical Pathology Lab Routine Colon cancer screening Release Upon Ordering for 1 Occurrences starting 06/10/2024 [employer] on above:Release Upon Ordering for 1 Occurrences starting 06/10/2024Phase I & II - metered glucosePhase I & II - metered glucose Point of Care Testing Routine As Needed until discontinued starting 06/05/2020Mer[place], [place]Comment [place] above:As Needed until discontinued starting 06/05/2020 End: 18-25-4074Tumvpdx PlateletsBon [employer] Phone: End: 72-01-9360Gzurg Function PanelBon SecPowerPractical HealthSpirometry panelBon SecPowerPractical HealthSpirometry panelBon SecSharetribeSpirometry panel Incentive spirometry Respiratory Care Routine Every 2hr while awake until discontinued starting 04/20/2024on Treatsiement on above:Every 2hr while awake until discontinued starting 04/20/2024Spirometry panelIncentive spirometry Respiratory Care Routine Every 2hr while awake until discontinued starting 07/01/2024on [employer] on above:Every 2hr while awake until discontinued starting 07/01/2024Surgical PathologySurgical Pathology Lab Routine Colon cancer screening Release Upon Ordering for 1 Occurrences starting 05/18/2022ON [employer] Phone: comment on above:Release Upon Ordering for 1 Occurrences starting 05/18/2022Transfuse PlasmaBon [employer] End: 31-21-3592VA DUP LOWER EXTREMITY RIGHT [employer] Phone: comhqhy on above:1 Occurrences starting 09/13/2021 until 09/13/2021 End: 77-99-1609CZ DUP LOWER EXTREMITY RIGHT ARTERIESBON [employer] Phone: comknpx on above:1 Occurrences starting 08/08/2022 until 08/08/2022 End: 72-70-1809UP DUPLEX SCAN OF AORTABON [employer] Phone: comment on above:1 Occurrences starting 08/08/2022 until 08/08/2022 End: 73-49-8751WA SCREENING FOR AAAMerQuantopian Phone: comment on above:1 Occurrences starting 09/13/2021 until 09/13/2021 End: 00-59-8533Oeqqjvfx duplex abdominal aortaBON MobileV[employer] on above:1 Occurrences starting 01/10/2023 until 01/10/2023 End: 96-92-8907ID Abdomen Single viewBon [employer] Work Phone: Comment on above:1 Occurrences starting 09/17/2024 until 5[facility] Immunizations Immunization DateImmunizationNotesCare QxqxjxrhOmeysasw59-09-1212ewnmiiulmnv influenzae type b vaccine, PRP-T conjugateBeltran Hall MD Work Phone: bon [facility] CenterTreatsie [facility] CenterComment on above:Result Comment: 2024-12-02: VIS DATE: 036538-29-1852lqcuzptfp virus vaccine, unspecified formulationTacarey Tristen 577-6367Qfeneu-FwqckPaulding County Hospital [place] Comment on above:Result Comment: 2024-12-02: VIS DATE: influenza, seasonal, injectableBeltran Hall MD Work Phone: bon [facility] CenterRufcvm13-00-6152igvsoalzqdmqa ACWY vaccine, unspecified formulationTacarey Tristen 128-4745Hcmnon-SzvzyPaulding County Hospital [place] Comment on above:Result Comment: 2024-12-02: VIS DATE: meningococcal B vaccine, fully recombinantTacarey Tristen 643-9024Upxnjz-OdbriPaulding County Hospital [place] Comment on above:Result Comment: 2024-12-02: VIS DATE: meningococcal B vaccine, recombinant, OMV, adjuvantedBeltran Hall MD Work Phone: bon [facility] CenterTreatsie [facility] CenterCiccah72-10-4739tlnvdqrdosxai oligosaccharide (groups A, C, Y and W-135) diphtheria toxoid conjugate vaccine (MCV4O)Beltran Hall MD Work Phone: bon [facility] CenterTreatsie [facility] CenterGqmsul18-71-5516ywklaeimtmcb conjugate vaccine, 13 valentBeltran Hall MD Work Phone: bon [facility] CenterComment on above:Result Comment: 2024-12-02: VIS DATE: 449430-34-2965fopoejgnfmdch vaccine of unknown formulation and unknown serogroupsHeather Scullin DO Work Phone: [facility]04-02-2022tetanus toxoid, reduced diphtheria toxoid, and acellular pertussis vaccine, adsorbed; Translations:[Boostrix (Tdap)]Magalie JASMYNELEONARDOYUMIKO [phone]-MgubyPaulding County Hospital [place] 04483249-89-2498WZEAG-17, mRNA, LNP-S, PF, 30 mcg/0.3 mL dose; Translations: [Pfizer-BioNTech COVID-19 Vaccine]Magalie JASMYNELEONARDOYUMIKO [phone]-CdvlbSumma Health comgkqt on above:Reason for Medication: Prophylaxis Reason for Medication: Wpakryjwzqg44-51-1288FAABA-62, mRNA, LNP-S, PF, 30 mcg/0.3 mL dose; Translations: [Pfizer-BioNTech COVID-19 Vaccine]Magalie JASMYNELEONARDOAULTMAN ALLIANCE COMMUNITY HOSPITALNova [phone]-FzeayPaulding County Hospital [place] comdgbc on above:Reason for Medication: Prophylaxis Reason for Medication: Bufoecngyde94-76-5480atdfkqqjo, injectable, quadrivalent, contains preservativeSamantacallie JASMYNELEONARDOYUMIKO [phone]-YmhsbPaulding County Hospital [place] 1337373-10-9760atocqwmop virus vaccine, unspecified formulationAmilcar Yan MD Work Phone: [facility]beighJvlfna33-53-7977atungaj toxoid, reduced diphtheria toxoid, and acellular pertussis vaccine, adsorbed; Translations: [Adacel (Tdap)]Magalie JASMYNELEONARDOYUMIKO [phone]-MugywPaulding County Hospital [place] NEGATED: Highlighted row has not occurred!08-01-2023 influenza virus vaccine, unspecified formulationTacarey Ramon 324-0514Uafglc-OljdpPaulding County Hospital [place] NEGATED: Highlighted row has not occurred!26-15-7042nfrbmxtcp virus vaccine, unspecified formulationTacarey Ramon [phone]-UlpaaPaulding County Hospital [place] NEGATED: Highlighted row has not occurred!35-92-4827ZVUQ-CoV-2 mRNA (tozinameran 5y-11y) vaccineChristopher BROWN [phone]-OnityPaulding County Hospital [place] Comment on above:Result Comment: initial vaccinations receivedNEGATED: Highlighted row has not occurred!18-35-8714goupdpqhr virus vaccine, unspecified formulationMagalie MEDLEYNAMILLER [phone]-WjeopPaulding County Hospital [place] NEGATED: Highlighted row has not occurred!04-11-2019 influenza virus vaccine, unspecified formulationKakalpesh DONNAMILLER [phone]-YpxitPaulding County Hospital [place] comment on above:Result Comment: pt received vaccine Result Comment: pt received vaccine Payers DatePayer CategoryPayerPolicy ID2025Medicare [id number] [id number] 2025 [id number] [id number]57119.7227.46159-39-7753 Private Health Insurance1.2.840.292835.1.13.693.2.7.9.879606.922295.315 [id number] Health [id number] 1.2.840.163248.1.13.239.2.7.3.898[id number] 1.2.840.738226.1.13.239.2.7.3.549[id number] 2.16.840.1.271434.3.57[id number] 2.16.840.1.231724.3.579.2.37398-49-7182Dzdnzye52507532 2.16.840.1.046446.3.579.2.60898-95-3834Mkvuvbp1734155 2.16.840.1.218427.3.579.2.837731-10-7881Gzljazy16490284 2.16.840.1.165272.3.579.2.19481-93-0367Bfapkgs83800342 2.16.840.1.480916.3.579.2.55088-39-2349Nfifkjt89649040 2.16.840.1.123277.3.579.[id number] 2.16.840.1.225375.3.579.2.04801-16-4412Trovcru04227988 2.16.840.1.127377.3.579.2.04999-47-1645Yrhwkyp38364006 2.16.840.1.933639.3.579.2.94555-48-4731Ngqdkaf58377052 2.16.840.1.353818.3.579.2.57507-45-7783Fprybzn21109916 2.16.840.1.957070.3.579.2.99395-03-3296Cygyfmc32659045 2.16.840.1.244879.3.579.2.25547-95-1938Dxulacg44382340 2.16.840.1.823941.3.579.2.93326-48-4093Rlcdvif51718371 2.16.840.1.784722.3.579.2.52159-28-5073Coypsmw60877312 2.16.840.1.020756.3.579.2.40272-54-8471Fotywuv59298812 2.16.840.1.457735.3.579.2.58896-40-4901Damlulv31852424 2.16.840.1.036281.3.579.2.90894-89-2088Cthbrtp93291234 2.16.840.1.235464.3.579.2.18428-91-2536Kukhwck05577714 2.16.840.1.105337.3.579.2.79909-99-2884Ljjvyrb80281153 2.16.840.1.632261.3.579.2.73847-04-6822Ppqdagg37956073 2.16.840.1.952842.3.579.2.15546-75-0784Ggkycmu33057325 2.16.840.1.310820.3.579.2.18706-24-8938Qjyhmxh01524574 2.16.840.1.752818.3.579.2.96238-72-5278Fihpjph92078365 2.16.840.1.051196.3.579.2.41815-06-9470Eamjims51017804 2.16.840.1.249866.3.579.2.92916-52-2838Aqbapri165243970 2.16.840.1.857357.3.579.2.38601-73-5022Tdcynqr028536374 2.16.840.1.691436.3.579.2.94251-52-1641Lbwysok836063075 2.16.840.1.697047.3.579.2.86701-91-1777Ctpwkke132252702 2.16.840.1.657449.3.579.2.97869-43-0512Wkvrjun21928932 2.840.1.109686.3.579.2.16627-39-5503Cvajysg72464053 2.0.1.207888.3.579.2.14405-67-8525Zecrllc81985481 2..1.175455.3.579.2.47858-02-1970Iysqjar86944222 2..1.235164.3.579.2.17342-06-5402Ugmpfjj311736961 2..1.042720.3.579.2.57682-10-1764Lezzvlj046965593 2..1.956549.3.579.2.96864-12-7877Pxcsftl702385026 2.0.1.970586.3.579.2.83019-85-5103Smkegbq703181744 2..1.288861.3.579.2.28064-75-7920Jjddjyp521557099 2..1.339813.3.579.2.38319-27-3022Tiqjqds365858107 2..1.602629.3.579.2.43823-02-3191Inaoyut318669190 2.840.1.354169.3.579.2.79918-48-8824Mmiklgm660260477 2.840.1.247344.3.579.2.59832-23-4090Nsgfjtf856406399 2.16.840.1.927268.3.579.2.42207-63-8681Fcoqhpz783888646 2.16.840.1.326088.3.579.2.14622-19-8680Slvsnvb55635427 2.16.840.1.821562.3.579.2.01658-54-7408Bzxwpzx69371574 2.16.840.1.983546.3.57[id number] 2.16.840.1.653868.3.57[id number] 2.16.840.1.901035.3.57[id number] 2.16.840.1.772636.3.579.[id number] Social History DateTypeDetailFacilityStart: 06-05-2020 End: 26-86-4374Mdppxwk smoking status NHISCurrent every day [facility]okerW[facility]: 40-52-4604Vlowkeb of tobacco useCigarette SmokerW[facility]oster [facility] Hospital: 06-05-2020 End: 39-71-5460Ikjwkbvyvn smoked current (pack per day) - [facility] End: 51-97-6052Ywjvwhw use and exposureNever usedW[facility]: 06-05-2020 End: 83-98-6192Uklpuiu intakeCurrent non-drinker of alcohol (finding)[place] [facility] [id number] Assigned At BirthNot on fileW[facility]oster [facility]: [facility]21 End: [id number] to SARS-CoV-2 (event)Not sureWooster [facility] Hospital: 09-15-2021 End: [id number] smoking statusHeavy tobacco smoker (finding)[facility] comment on above:1-2 ppd1-2 ppdTobacco smoking status NeverPaulding County Hospital [facility] comment on above:1-2 ppd1-2 ppdStart: 11-03-2022 End: [id number] [facility] History of tobacco usePassive smokerBon Ultimate Football NetworkHas the electric, gas, oil, or water company threatened to shut off services in your home in past 12MoNoBon [employer](I/We) worried whether (my/our) food would run out before (I/we) got money to buy more.Never trueBon Last Size [facility] CompanyStart: 05-82-4199Wpuntfb smoking status NHIS Ex-smokerBon Last Size [facility] CompanyStart: 04-34-7741Jkewgwp of tobacco useCurrent smokerBon Last Size [facility] CompanyTobacco smoking status NHISTobacco smoking consumption unknownRIVERTON HOSPITAL HealthcareStart: 08-11-2014 End: 06-58-0508VviUukg (finding)Bon Andrzej MOGL [facility] CompanySexual OrientationLakehealth Tripoint Medical Center Medical Equipment Procedure CodeEquipment CodeEquipment Original TextEquipment IdentifierDates [id number]: [id number]: [id number]_gvtYjpjn: 85-87-1829Qlzyfjd on above:Description: Main body abdominal [id number]_abf Start: 85-19-0736Irshoru on above:Description: Implanted in: LEFT COMMON ILIAC [id number]: 24-57-4571Vghopby on above:Description: IMPLANTED IN: LEFT FEMORAL [id number]: 06-03-2021 Functional Status SlkkJilmxmrucuJycwkcUsamvaku79-65-8807Npvjoheery StatusN/AFAult[facility]12-10-2024Functional StatusN/[facility] Cpntzhx84-93-7541Ovzsrqlyrb StatusN/[facility] Kwef59-17-9170Ovfxxmstaf StatusN/[facility] Wssfmej28-20-8481Iqfbrhjgti StatusN/[facility]08-07-2024Functional StatusN/[facility]04-18-2024 Functional StatusN/[facility]03-13-2024Functional StatusN/A [facility]03-12-2024Functional StatusN/[facility] Qwcsqer98-67-1232Tquqgnzujh StatusN/[facility]11-17-2023Functional StatusN/[facility] 27-84-0007Tbshaltapj StatusN/[facility]09-19-2023Functional StatusNCity Hospital Dirivkg55-75-0806Vynjmagftt StatusN/[facility]06-23-2023Functional StatusN/[facility]05-26-2023Functional StatusN/[facility] 15-23-1615Ovreexmmiu StatusN/[facility]03-31-2023Functional StatusN/[facility]03-08-2023Functional StatusN/[facility]01-20-2023Functional StatusN/[facility] 68-00-5542Fnuujrbryu StatusN/[facility]12-07-2022Functional StatusN/[facility]11-15-2022Functional StatusN/[facility] Tadhdlk50-55-0852Qwrbxwucdz StatusN/[facility] Gotyptx31-42-6751Rteubzzyzk StatusN/[facility]09-14-2022N/[facility]08-08-2022 Functional StatusN/[facility] Clinical Notes 01-13-2021 to 01-12-2025 Note Date & VkmgXdcaYjfbsahq58-46-8293 Hospital Discharge instructions Patient Education 01/12/2025 11:39:59 Restless Legs Syndrome Restless Legs Syndrome Restless legs syndrome is a condition that causes uncomfortable feelings or sensations in the legs,especially while sitting or lying down. The sensations [...] you more likely to develop this condition: Being older than 50. . Being a woman. In general, the condition is more common in women than in men. A family history of the condition. Having iron deficiency. Overuse of caffeine, nicotine, or alcohol. Certain medical conditions, such as kidney disease, Parkinson's disease, or nerve damage. Certain medicines, such as those for high blood pressure, nausea, colds, allergies, depression, andsome heart conditions. What are the signs or symptoms? The main symptom of this condition is uncomfortable sensations in the legs, such as: Pulling. Tingling. Prickling. Throbbing. Crawling. Burning. Usually, the sensations: Affect both sides of the body. Are worse when you sit or lie down. Are worse at night. These may make it difficult to fall asleep. Make you have a strong urge to move your legs. Are temporarily relieved by moving your legs or standing. The arms can also be affected, but this is rare. People who have this condition often have tiredness during the day because of their lack of sleep at night. How is this diagnosed? This condition may be diagnosed based on: Your symptoms. Blood tests. In some cases, you may be monitored in a sleep lab by a specialist (a sleep study). This can detectany disruptions in your sleep. How is this treated? This condition is treated by managing the symptoms. This may include: Lifestyle changes, such as exercising, using relaxation techniques, and avoiding caffeine, alcohol,or tobacco. Iron supplements. Medicines. Parkinson's medications may be tried first. Anti-seizure medications can also be helpful. Follow these instructions at home: General instructions Take bahn-sov-ehgqmwl and prescription medicines only as told by your health care provider. Use methods to help relieve the uncomfortable sensations, such as: ?Massaging your legs. ?Walking or stretching. ?Taking a cold or hot bath. Keep all follow-up visits. This is important. Lifestyle Practice good sleep habits. For example, go to bed and get up at the same time every day. Most adults should get 7 9 hours of sleep each night. Exercise regularly. Try to get at least 30 minutes of exercise most days of the week. Practice ways of relaxing, such as yoga or meditation. Avoid caffeine and alcohol. Do not use any products that contain nicotine or tobacco. These products include cigarettes, chewing tobacco, and vaping devices, such as e-cigarettes. If you need help quitting, ask your health careprovider. Where to find more information National [place] of Neurological Disorders and Stroke: www.ninds.nih.gov Contact a health care provider if: Your symptoms get worse or they do not improve with treatment. Summary Restless legs syndrome is a condition that causes uncomfortable feelings or sensations in the legs,especially while sitting or lying down. The symptoms often interfere with your ability to sleep. This condition is treated by managing the symptoms. You may need to make lifestyle changes or take medicines. This information is not intended to replace advice given to you by your health care provider. Make sure you discuss any questions you have with your health care provider. Document Revised: 12/19/2021 Document Reviewed: 12/19/2021 Epoch Patient Education 2023 [employer]. Follow Up Care 12/02/2024 09:10:28 With:Tristen AQUINO, APPLICATION ADMINISTRATOR-Sherie JONES Address: [address] [place] [phone] When:Within 6 Month(s) Comments:chronic care [facility] [place] 08-24-2025 NotePatient Education Neurology Restless Legs Syndrome Restless legs syndrome is a condition that causes uncomfortable feelings or sensations in the legs,especially while sitting or lying down. The sensations [...] for high blood pressure, nausea, colds, allergies, depression,and some heart conditions. What are the signs [...] a specialist (a sleep study). This can detectany disruptions in your sleep. How is this treated? This condition is treated by managing the symptoms. This may include: ??? Lifestyle changes, such as exercising, using relaxation techniques, and avoiding caffeine, alcohol, or tobacco. ??? Iron supplements. ??? Medicines. Parkinson's medications may be tried first. Anti-seizure medications can also be helpful. Follow these instructions at home: General instructions ??? Take rjia-gdh-wofplim and prescription medicines only as told by [...] Where to find more information ??? National [place] of Neurological Disorders and Stroke: www.ninds.nih.gov Contact [...] provider. Document Revised: 12/19/2021 Document Reviewed: 12/19/2021 Epoch Patient Education ? 2023 [employer].[facility] 12-02-2024 Hospital Discharge instructions Patient Education 12/02/2024 10:54:44 Health Risks of Smoking Health Risks of [...] Department of Health and Human Services: www.smokefree.gov [place] [employer]: www.freedomfromsmoking.org [place] [employer]: www.heart.org Where to find more [...] provider. Document Revised: 05/10/2022 Document Reviewed: 05/10/2022 Epoch Patient Education 2023 [employer]. 12/02/2024 10:54:40 Hypertension, Adult Hypertension, Adult High blood pressure (hypertension) is [...] are some conditions that result in high bloodpressure. What increases the risk? Certain factors may make you more likely to develop high blood pressure. Some of these risk factorsare under your control, including: Smoking. Not getting enough exercise or physical activity. Being overweight. Having too much fat, sugar, calories, or salt (sodium) in your diet. Drinking too much alcohol. Other risk factors include: Having a personal history of heart disease, diabetes, high cholesterol, or kidney disease. Stress. Having a family history of high blood pressure and high cholesterol. Having obstructive sleep apnea. Age. The risk increases with age. What are the signs or symptoms? High blood pressure may not cause symptoms. Very high blood pressure (hypertensive crisis) may cause: Headache. Fast or irregular heartbeats (palpitations). Shortness of breath. Nosebleed. Nausea and vomiting. Vision changes. Severe chest pain, dizziness, and seizures. How is this diagnosed? This condition is diagnosed by measuring your blood pressure while you are seated, with your arm resting on a flat surface, your legs uncrossed, and your feet flat on the floor. The cuff of the bloodpressure monitor will be placed directly against the [...] risk factors, you may be asked to: Return on a different day to have your blood pressure checked again. Monitor your blood pressure at home for [...] your blood pressure under control and if: Your systolic blood pressure is above 130. Your diastolic blood pressure is above 80. Your personal target blood pressure may vary depending on your medical conditions, your age, and other factors. Follow these instructions at home: Eating and drinking Eat a diet that is high in fiber and potassium, and low in sodium, added sugar, and fat. An exampleof this eating plan is called the DASH diet. DASH stands for Dietary Approaches to Stop Hypertension. To eat this way: ?Eat plenty of fresh fruits and vegetables. Try to fill one half of your plate at each meal with fruits and vegetables. ?Eat whole grains, such as whole-wheat pasta, brown rice, or whole-grain bread. Fill about one fourth of your plate with whole grains. ?Eat or drink low-fat dairy products, such as skim milk or low-fat yogurt. ?Avoid fatty cuts of meat, processed or cured meats, and poultry with skin. Fill about one fourth of your plate with lean proteins, such as fish, chicken without skin, beans, eggs, or tofu. ?Avoid pre-made and processed foods. These tend to be higher in sodium, added sugar, and fat. Reduce your daily sodium intake. Many people with hypertension should eat less than 1,500 mg of sodium a day. Do not drink alcohol if: ?Your health care provider tells you not to drink. ?You are [...] liquor (44 mL). Lifestyle Work with your health care provider to maintain a healthy body weight or to lose weight. Ask what an ideal weight is for you. Get at least 30 minutes of exercise that causes your heart to beat faster (aerobic exercise) most days of the week. Activities may include walking, swimming, or biking. Include exercise to strengthen your muscles (resistance exercise), such as Pilates or lifting weights, as part of your weekly exercise routine. Try to do these types of exercises for 30 minutes at least 3 days a week. Do not use any products that contain nicotine or tobacco. These products include cigarettes, chewing tobacco, and vaping devices, such as e-cigarettes. If you need help quitting, ask your health careprovider. Monitor your blood pressure at home as told by your health care provider. Keep all follow-up visits. This is important. Medicines Take kxhp-xld-rapneve and prescription medicines only as told by your health care provider. Follow directions carefully. Blood pressure medicines must be taken as prescribed. Do not skip doses of blood pressure medicine. Doing this puts you at risk for problems and can makethe medicine less effective. Ask your health care provider about side effects or reactions to medicines that you should watch for. Contact a health care provider if you: Think you are having a reaction to a medicine you are taking. Have headaches that keep coming back (recurring). Feel dizzy. Have swelling in your ankles. Have trouble with your vision. Get help right away if you: Develop a severe headache or confusion. Have unusual weakness or numbness. Feel faint. Have severe pain in your chest or abdomen. Vomit repeatedly. Have trouble breathing. These symptoms may be an emergency. Get help right away. Call 911. Do not wait to see if the symptoms will go away. Do not drive yourself to the hospital. Summary Hypertension is when the force of blood pumping through your arteries is too strong. If this condition is not controlled, it may put you at risk for serious complications. Your personal target blood pressure may vary depending on your medical conditions, your age, and other factors. For most people, a normal blood pressure is less than 120/80. Hypertension is treated with lifestyle changes, medicines, or a combination of both. Lifestyle changes include losing weight, eating a healthy, low-sodium diet, exercising more, and limiting alcohol. This information is not intended to replace advice given to you by your health care provider. Make sure you discuss any questions you have with your health care provider. Document Revised: 03/15/2022 Document Reviewed: 03/15/2022 Epoch Patient Education 2023 [employer]. 12/02/2024 10:54:39 High Cholesterol High Cholesterol High cholesterol is [...] ask your health careprovider. General instructions Take zacb-zcz-atyepqs and prescription medicines only as told by your health care provider. Keep all follow-up visits. This is important. Where to find more information [place] [employer]: www.heart.org National Heart, Lung, and Blood [place]: www.nhlbi.nih.gov Contact a health care provider if: [...] provider. Document Revised: 12/09/2022 Document Reviewed: 07/12/2021 Epoch Patient Education 2023 [employer]. 12/02/2024 08:54:17 Hoarseness Hoarseness Hoarseness, also called dysphonia, is any [...] and to help relieve your symptoms: Lifestyle Do not eat foods that give you heartburn, such as spicy or acidic foods like hot peppers and orangejuice. These foods can cause a gastroesophageal reflux that may worsen your vocal cord problems. Limit how much alcohol and caffeine you drink as told by your health care provider. Drink enough fluid to keep your urine pale yellow. Do not use any products that contain nicotine or tobacco. These products include cigarettes, chewing tobacco, and vaping devices, such as e-cigarettes. If you need help quitting, ask your health careprovider. Avoid secondhand smoke. General instructions Use a humidifier if the air in your home is dry. Avoid coughing or clearing your throat. Do not whisper. Whispering can cause muscle strain. Do not speak in a loud or harsh voice. Rest your voice. If recommended by your health care provider, schedule an appointment with a speech-criminal intelligence specialist. This specialist may give you methods to try that can help you avoid misusing your voice. Contact a health care provider if: Your voice is hoarse longer than 2 weeks. You almost lose or completely lose your voice for more than 3 days. You have pain when you swallow or try to talk. You feel a lump in your neck. Get help right away if: You have trouble swallowing. You feel like you are choking when you swallow. You cough up blood or vomit blood. You have trouble breathing. You choke, cannot swallow, or cannot breathe if you lie flat. You notice swelling or a rash on your body, face, or tongue. These symptoms may represent a serious problem that is an emergency. Do not wait to see if the symptoms will go away. Get medical help right away. Call your local emergency services (911 in the [place] Do not drive yourself to the hospital. Summary Hoarseness, also called dysphonia, is any abnormal change in your voice that can make it difficult to speak. Your voice may sound raspy, breathy, or strained. Hoarseness is caused by a problem with your vocal cords (vocal folds). Do not speak in a loud or harsh voice, whisper, use nicotine or tobacco products, or eat foods thatgive you heartburn. See your health care provider if your hoarseness does not improve after 2 weeks. This information is not intended to replace advice given to you by your health care provider. Make sure you discuss any questions you have with your health care provider. Document Revised: 10/26/2021 Document Reviewed: 10/26/2021 Epoch Patient Education 2023 [employer]. Follow Up Care 07/30/2024 08:33:21 With:Tristen AQUINO, APPLICATION ADMINISTRATOR-PROCUREMENT BUYER, Sherie Dash Address: [address] [place] [phone] When:Within 6 Week(s) Comments:[facility] [place] 07-14-2025 NotePatient Education Cardiovascular Hypertension, Adult High blood pressure [...] are some conditions that result in high bloodpressure. What increases the risk? Certain factors may make you more likely to develop high blood pressure. Some of these risk factorsare under your control, including: ??? Smoking. ??? [...] on the floor. The cuff of the bloodpressure monitor will be placed directly against the [...] hypertension should eat less than 1,500 mg ofsodium a day. ??? Do not drink alcohol [...] one drink equals one 12 oz bottle (more content not included)...[facility]06-24-2025 NoteNeurosurgery Clinic Note Chief Complaint: Left low back and leg pain, imaging follow-up. Interval History: Jasmeet Nette is a 64 y.o. year-old male who presents for for review of a CT myelogram of the lumbar and thoracic spine. He continues to note that his leg pain is worse than his back pain. He denies any substantial changes in the pattern of pain since last seen. A CT myelogram was performed at [facility]. In review of his symptoms, he was first evaluated in referral from pain management at [facility] for evaluation of left low back [...] lower extremities by Dr. Phillips in the [place] which stated evidence of a chronic left [...] of the thoracic and lumbar spine from [facility] dated 11/06/2024 is available for review. [...] neuroforaminal narrowing without definite canal stenosis. Impression: Jasmeet Perdue is a 64 y.o. male with [...] is no critical stenosis or prior surgical int (more content not included)...[facility]06-02-2025 NoteNeurosurgery Consult Chief Complaint: Left low back and leg pain. History of Present Illness: Jasmeet Perdue is a 64 y.o. male who presents in kind referral from pain management in [facility] for evaluation of left low back [...] lower extremities by Dr. Phillips in the [place] which stated evidence of a chronic left L5 radiculopathy without active denervation. He is referred to discuss potential surgical treatments including potential treatment with spinal cord stimulation. 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 Intermittent claudication of left lower extremity due to atherosclerosis Back pain, lumbosacral Chest pain Benign essential HTN Primary hypertension BMI 27.0-27.9,adult Chronic midline low back pain with bilateral sciatica Colonic diverticular abscess Constipation Diverticulitis of sigmoid colon Dry skin dermatitis Atherosclerosis of quinault arteries of extremities with intermittent claudication, left [...] History: Social History Socioeconomic History Marital status: (more content not included)...[facility]04-15-2025 History of Present illness Narrative* Henry Phillips DO - 09/03/2024 2:00 PM EDT Images from the original note were not included. Reason for Appointment: EMG Patient: Jasmeet Perdue : 1960 EMG Computer: [employer] Referring Physician: Molly Moy CNP EMG: LLE surgical assistant: Vera Bonner CMA Office Location: [place] Reason for EMG: c/o pain in the calf and foot. He does reports back pain and gets injections that are helpful. Some balance difficulty intermittently. Hx of lipoma removed from the low back. No Hx ofDM, takes Plavix Comments: Procedure explained to the patient who expressed understanding. documented in this encounterMissouri Baptist Medical [id number] NotePatient Education Cardiovascular Hypertension, Adult High blood pressure [...] are some conditions that result in high bloodpressure. What increases the risk? Certain factors may make you more likely to develop high blood pressure. Some of these risk factorsare under your control, including: ??? Smoking. ??? [...] on the floor. The cuff of the bloodpressure monitor will be placed directly against the [...] hypertension should eat less than 1,500 mg ofsodium a day. ??? Do not drink alcohol [...] one drink equals one 12 oz bottle (more content not included)...[facility]02-12-2025 History of Present illness Narrative* Chavo Lopez RN - 07/03/2024 1:24 PM EST Discharge instructions provided to patient and spouse. Verbalized understanding of follow up appointments, diet, activity, wound care, medications and reasons to return to ED/call physician. All questions answered. Copy of discharge instructions provided. Assisted into wheelchair and taken to personal car. Denies further needs. * Deborah Galeano RN - 07/03/2024 5:42 AM EST Pt stated he had bowel movements overnight, brown in color and runny. Did not witness these BM's. Educated pt to ring call light next time he uses the bathroom. Pt refused morning labs. Educated pt on importance of the morning labs and he is now okay with lab drawing them. * Beltran Hall MD - 07/02/2024 6:03 PM EST Patient seen and examined Doing well. Passing flatus. Denies nausea tolerating clears. IV fluids Hep-Lock. Will advance diet tomorrow if doing well. * Beltran Hall MD - 07/02/2024 11:09 AM EST Postop day #1 from an ileostomy reversal Patient without issues overnight. Pain improved. Plan is to start clear liquids today. Ambulation encouraged. Will Hep-Lock IV once tolerating liquids. Progressing well. * Deborah Galeano RN - 07/01/2024 9:30 PM EST Shift assessment completed and documented, see flowsheets. VSS on RA. A&Ox4. Meds given per JUL. PRN pain meds given. Midline dressing noted. Outlined breakthrough drainage on dressing. Ice pack to abdomen refilled. Using urinal independently. Pt denies any other needs at this time. Safety maintained. Call light within reach. documented in this [facility] N[facility]* Beltran Hall MD - 07/03/2024 11:05 AM EST Physician Discharge Summary Patient ID: Jasmeet Perdue [id number] y.o. 1960 Admit date: 07/01/2024 Discharge date and time: 07/03/2024 Admitting Physician: Beltran Hall MD Discharge Physician: Same Admission Diagnoses: Ileostomy dysfunction (HCC) [K94.13] Discharge Diagnoses: Same Admission Condition: good Discharged Condition: good Indication for Admission: Dysfunctional ileostomy Hospital Course: Patient was taken to the operating room on 07/01/2024 for an ileostomy reversal, the details of which can be found in the history and physical and the operative report. He was taken to the floor postoperatively. He was kept on sips of liquids and ice chips. The following morning his bowels were working. He was advanced to a clear liquid diet and then a low fiber diet without problems. He ambulated early and often. Home medications were restarted. [place] drain was removed on postop day #2. Discharge instructions were given. Patient was tolerating diet and moving his bowels without problems. Discharge instructions regarding activity, medication, follow-up and wound care were given at the bedside. Patient will see me in the office for staple removal. All questions answered. Consults: none Significant Diagnostic Studies: labs: CBC, BMP Treatments: IV hydration, antibiotics: Ancef and metronidazole, and surgery: Ileostomy reversal Discharge Exam: Abdomen soft and nondistended, surgical site looks fine. Awake alert oriented, regular rate, lungs clear, neurologically intact symmetric Disposition: home In process/preliminary results: Outstanding Order Results No orders found from 06/02/2024 to 07/02/2024. Patient Instructions: Current Discharge Medication List START taking these medications Details oxyCODONE-acetaminophen (PERCOCET) 5-325 MG per tablet Take 1 tablet by mouth every 6 hours as needed for Pain for up to 3 days. Max Daily Amount: 4 tablets Qty: 12 tablet, Refills: 0 Comments: Reduce doses taken as pain becomes manageable Associated Diagnoses: Ileostomy dysfunction (HCC) CONTINUE these medications which have NOT CHANGED Details buPROPion (WELLBUTRIN SR) 150 MG extended release tablet Take 1 tablet by mouth 2 times daily Qty: 60 tablet, Refills: 3 tamsulosin (FLOMAX) 0.4 MG capsule Take 1 capsule by mouth daily Qty: 30 capsule, Refills: 3 nicotine (NICODERM CQ) 14 MG/24HR Place 1 patch onto the skin daily Qty: 30 patch, Refills: 3 Vitamin D (CHOLECALCIFEROL) 50 MCG (2000 UT) TABS tablet Take 1 tablet by mouth Daily with supper Qty: 60 tablet, Refills: 4 Comments: Labeling may look different. 25 [id number] Units. Please double check dosages. rOPINIRole (REQUIP) 1 MG tablet Take 2 tablets by mouth nightly metoprolol succinate (TOPROL XL) 25 MG extended release tablet TAKE 1 TABLET BY MOUTH EVERY DAY Qty: 90 tablet, Refills: 1 clopidogrel (PLAVIX) 75 MG tablet TAKE 1 TABLET BY MOUTH EVERY DAY Qty: 90 tablet, Refills: 3 pantoprazole (PROTONIX) 40 MG tablet Take 1 tablet by mouth daily Qty: 90 tablet, Refills: 3 Comments: Patient needs an appointment for more refills. Associated Diagnoses: Essential hypertension atorvastatin (LIPITOR) 20 MG tablet Take 1 tablet by mouth daily Qty: 90 tablet, Refills: 3 gabapentin (NEURONTIN) 600 MG tablet TAKE 1 TABLET BY MOUTH THREE TIMES DAILY baclofen (LIORESAL) 10 MG tablet TAKE 1 TABLET BY MOUTH THREE TIMES DAILY NEEDED for muscle pain Activity: activity as tolerated Diet: regular diet Wound Care: keep wound clean and dry Follow-up with Zina in 11 days. Signed: Zina 07/03/2024 11:05 AM [facility] Discharge [facility]* Discharge Instructions* Beltran Hall MD - 07/03/2024 11:04 AM EST May shower Keep dressing over previous ileostomy site as needed No lifting greater than 20 pounds for the next week [facility] Telephone encounter Note* Telephone Encounter - Tereza Riley - 07/01/2024 4:47 PM EST Spoke with pt on 06/27/24. He reports he is having his colostomy reversed this week. Is holding the Plavix per Dr. Oneal, but wants to know if he should hold pletal. Upon further discussion, pt states his is not currently taking pletal. Spoke with Dr. Yan who states to leave it up to GI doc. Relayedthis to pt, who states he will ask the dioramist./KG [facility]02-10-2025 Miscellaneous Notes* Telephone Encounter - Tereza Riley - 07/01/2024 4:47 PM EST Spoke with pt on 06/27/24. He reports he is having his colostomy reversed this week. Is holding the Plavix per Dr. Oneal, but wants to know if he should hold pletal. Upon further discussion, pt states his is not currently taking pletal. Spoke with Dr. Yan who states to leave it up to GI doc. Relayedthis to pt, who states he will ask the dioramist./KG [facility] History of Present illness Narrative* Carlotta Bray, RN - 06/10/2024 8:[address] Hall to to bedside. Discussing with patient procedure upcoming on July 01, 2024 for an ileostomy reversal. Patient to stop Plavix 72 hours prior to procedure per Dr. Hall * Guerline Pan RN - 06/05/2024 9:37 AM EST Call to Dr Stewart office regarding pt holding plavix for procedure. State it should be held for 3 days and they will call patient and advise. [facility] Discharge instructions* Discharge Instructions* Carlotta Bray, LYNSEY - 06/10/2024 7:42 AM EST Normal post colonoscopy instructions No driving today Please see if PAT can see him regarding preoperative evaluation for ileostomy reversal next month [facility] Outpatient Discharge Instructions To continue your care at home, please follow the instructions below and any additional discharge instructions given to you by your physician. GENERAL ANESTHESIA: Do not drive or operate machinery for 24hrs after discharge, Do not drink alcohol, take tranquilizers, sleeping medication, or any other medication not directlyinstructed by your physician, Do not make any important decisions or sign any legal documents for 24hrs after surgery, Have someone with you for 24hrs after surgery to assist you as needed. ACTIVITY: Light activity for 24hrs, No heavy lifting or exercise until instructed by your physician, You may resume normal activities once instructed by your physician, Special Instruction: FLUIDS AND DIET: An upset stomach or feeling sick (nausea) can commonly occur after surgery and/or pain medication use. To help minimize nausea: Do not eat a heavy meal soon after your surgery, Start with water or other clear liquids, Advance to mild or bland items like Jell-O, dry toast, crackers, etc., Avoid caffeine, Do not drink alcohol for at least 24 hours after surgery, Your physician may prescribe anti-nausea medication if your nausea continues, If you are free from nausea for 24hrs, you can advance to your normal diet as tolerated. OPERATIVE SITE: A small amount of bleeding or drainage after surgery is normal. Your physician will provide you with specific instructions on how to care for your surgical site and/or dressing. Try not to touch your surgical site unless necessary, Always wash your hands BEFORE and AFTER changing your dressing if instructed by your physician, Proper handwashing includes wetting your hands with clean water, applying soap, lathering your hands by rubbing them together with soap for 20 seconds, rinsing them with clean water, and drying them with a clean towel. If soap and water is not available, alcohol-based assembler fitter may be applied by rubbing the hands together and allowing them to dry for 20 seconds. Special Instructions: PAIN: Pain after surgery is normal and should be expected. When you go home, the anesthesia wears off, and you may experience increased discomfort. Your provider will give you specific instructions on whatpain medication to take at home. Listed below is additional information on treating pain after surgery: Pain medication can give you an upset stomach. Unless your provider has instructed you not to eat or drink, the pain medication should be taken with a small amount of food. Eating will decrease the chance of an upset stomach. Pain medication can take about 20-30 minutes to start working, so do not wait until the pain worsens before taking a dose. Remember, always take ujup-smy-jpgwkkn and prescription drugs only as directed by your provider. Unless otherwise instructed by your provider, applying ice on or around your surgical site can be agreat way to help minimize pain and swelling after surgery. Apply ice to the affected area a minimum of 4 times daily for no longer than 15- 20 minutes at a time. It is very important to protect your skin by NOT applying ice or ice pack directly to your skin. Always have a towel or pillow case between your skin and the ice. Frozen vegetable packs like peas or corn make great inexpensive alternatives for use as an icepack. FOLLOW UP CARE - Call your Physician if any of the following occur: Increased swelling, redness, warmth, hardness around operative area, Blood soaked dressings (small amounts of oozing may be normal), Numb, tingling, or cold fingers or toes (for surgeries on extremities) Fever over 101 F, Increased drainage, puss, and/or odor from surgical site, Pain not relieved by medications ordered Unable to urinate * Attachments The following attachments cannot be sent through Care Everywhere. * Colonoscopy: Post-op (Armenian) [facility] Discharge instructions Patient Education 06/04/2024 15:38:05 Lipoma Lipoma A lipoma is a noncancerous (benign) [...] more likely to develop this condition if: You are 40 60 years old. You have a family history of lipomas. What are the signs or symptoms? A lipoma usually appears as a small, round bump under the skin. In most cases, the lump will: Feel soft or rubbery. Not cause pain or other symptoms. However, if a lipoma is located in an area where it pushes on nerves, it can become painful or cause other symptoms. How is this diagnosed? A lipoma can usually be diagnosed with a physical exam. You may also have tests to confirm the diagnosis and to rule out other conditions. Tests may include: Imaging tests, such as a CT scan or an MRI. Removal of a tissue sample to be looked at under a microscope (biopsy). How is this treated? Treatment for this condition depends on the size of the lipoma and whether it is causing any symptoms. For small lipomas that are not causing problems, no treatment is needed. If a lipoma is bigger or it causes problems, surgery may be done to remove the lipoma. Lipomas can also be removed to improve appearance. Most often, the procedure is done after applying a medicine that numbs the area (local anesthetic). Liposuction may be done to reduce the [...] with suction. Follow these instructions at home: Watch your lipoma for any changes. Keep all follow-up visits. This is important. Where to find more information OrthoInfo: orthoinfo.aaos.org Contact a health care provider if: Your lipoma becomes larger or hard. Your lipoma becomes painful, red, or increasingly swollen. These could be signs of infection or a more serious condition. Get help right away if: You develop tingling or numbness in an area near the lipoma. This could indicate that the lipoma iscausing nerve damage. Summary A lipoma is a noncancerous tumor that is made up of fat cells. Most lipomas do not cause problems and do not require treatment. If a lipoma is bigger or it causes problems, surgery may be done to remove the lipoma. Contact a health care provider if your [...] provider. Document Revised: 05/27/2022 Document Reviewed: 05/27/2022 Epoch Patient Education 2023 [employer]. 06/04/2024 15:38:02 Restless Legs Syndrome Restless Legs Syndrome Restless legs syndrome is a condition that causes uncomfortable feelings or sensations in the legs,especially while sitting or lying down. The sensations [...] you more likely to develop this condition: Being older than 50. . Being a woman. In general, the condition is more common in women than in men. A family history of the condition. Having iron deficiency. Overuse of caffeine, nicotine, or alcohol. Certain medical conditions, such as kidney disease, Parkinson's disease, or nerve damage. Certain medicines, such as those for high blood pressure, nausea, colds, allergies, depression, andsome heart conditions. What are the signs or symptoms? The main symptom of this condition is uncomfortable sensations in the legs, such as: Pulling. Tingling. Prickling. Throbbing. Crawling. Burning. Usually, the sensations: Affect both sides of the body. Are worse when you sit or lie down. Are worse at night. These may make it difficult to fall asleep. Make you have a strong urge to move your legs. Are temporarily relieved by moving your legs or standing. The arms can also be affected, but this is rare. People who have this condition often have tiredness during the day because of their lack of sleep at night. How is this diagnosed? This condition may be diagnosed based on: Your symptoms. Blood tests. In some cases, you may be monitored in a sleep lab by a specialist (a sleep study). This can detectany disruptions in your sleep. How is this treated? This condition is treated by managing the symptoms. This may include: Lifestyle changes, such as exercising, using relaxation techniques, and avoiding caffeine, alcohol,or tobacco. Iron supplements. Medicines. Parkinson's medications may be tried first. Anti-seizure medications can also be helpful. Follow these instructions at home: General instructions Take urex-ckp-vzodahk and prescription medicines only as told by your health care provider. Use methods to help relieve the uncomfortable sensations, such as: ?Massaging your legs. ?Walking or stretching. ?Taking a cold or hot bath. Keep all follow-up visits. This is important. Lifestyle Practice good sleep habits. For example, go to bed and get up at the same time every day. Most adults should get 7 9 hours of sleep each night. Exercise regularly. Try to get at least 30 minutes of exercise most days of the week. Practice ways of relaxing, such as yoga or meditation. Avoid caffeine and alcohol. Do not use any products that contain nicotine or tobacco. These products include cigarettes, chewing tobacco, and vaping devices, such as e-cigarettes. If you need help quitting, ask your health careprovider. Where to find more information National [place] of Neurological Disorders and Stroke: www.ninds.nih.gov Contact a health care provider if: Your symptoms get worse or they do not improve with treatment. Summary Restless legs syndrome is a condition that causes uncomfortable feelings or sensations in the legs,especially while sitting or lying down. The symptoms often interfere with your ability to sleep. This condition is treated by managing the symptoms. You may need to make lifestyle changes or take medicines. This information is not intended to replace advice given to you by your health care provider. Make sure you discuss any questions you have with your health care provider. Document Revised: 12/19/2021 Document Reviewed: 12/19/2021 Epoch Patient Education 2023 [employer]. 06/02/2024 10:33:10 Colostomy Home Guide, Adult Colostomy Home Guide, Adult A colostomy is a surgically created opening (ostomy) that brings a piece of the large intestine through an opening in the abdomen to create a stoma. The stoma allows stool (feces) and gas (flatus) toleave the body. A stoma may be a [...] or curved (convex), drainable, and closed or ventedoptions. Your health care provider will help you [...] 6 weeks. To care for the stoma: Keep the skin around the stoma clean and dry. Use a clean, soft washcloth to gently wash the stoma and the skin around it. Clean using a circularmotion, and wipe away from the stoma opening, nottoward it. ?Use warm water and only use cleansers, such as mild soap and stoma-safe adhesive remover, recommended by your health care provider. ?Inspect and dry the skin around the stoma. Use stoma powder or skin protectant on your skin as told by your health care provider. Do not use any other powders, gels, wipes, or creams on the skin around the stoma. These may keep pouch adhesivefrom sticking or may cause injury to your stoma. Check the stoma area every day for signs of infection or problems. Check for: ?New or worsening redness, warmth, swelling, irritation, itching, or pain around the stoma. ?New or worsening changes to the stoma, such as bleeding, trauma, or a dark and dusky color. ?Changes to the drainage from the stoma, such as pus, blood, a large amount of liquid drainage, or little to no stool drainage. Measure the stoma opening regularly and record the size. Watch for changes, such as the stoma getting longer, becoming flat, or falling below skin level. (It is normal for the stoma to get smaller asthe swelling goes away.) Share this information with your health care provider. Changes in the sizeor shape of the stoma may require a [...] basic steps for emptying a drainable pouch: 1.Prepare the toilet or container: If draining directly into the toilet, put several pieces of toilet paper into the toilet water. This will prevent splashing as you empty the stool into the toilet. Sit far back on the toilet seat. If draining into a container, place a few pieces of moistened toilet paper in the bottom of the container. This can help when emptying the container. 2.Remove the clip or the gcws-wmj-jlat fastener from the tail end of the bag. 3.Unroll the tail, then empty the stool into the toilet or container. 4.Clean the tail with toilet paper or a moist towelette. 5.Reroll the tail, and close it with the clip or the fwrq-wqh-drek fastener. 6.Wash your hands. How to change the colostomy bag Change your bag every 3 4 days or as often as told by your health care provider. Also change the bag if it is leaking or from the skin, or if your skin around the stoma looks or feels irritated. Irritated skin may be a sign that the bag is leaking. Always have colostomy supplies with you, and follow these basic steps: 1.Have paper towels or tissues and a trash bag nearby to clean any discharge and dispose of the soiled pouch. 2.Remove the old pouching appliance. Use your fingers, a warm, moist cloth, or a stoma-safe adhesive remover to gently remove the pouch and remove adhesive residue. 3.Clean the stoma area with water or with mild soap and water, as directed. Use water to rinse awayany soap. 4.Dry the skin. You may use the cool setting on a mathematics department chair to do this. 5.Use a tracing pattern (template) to cut the skin barrier to the size needed. The opening should be large enough to fit around the stoma, but you should not see exposed skin. 6.If you are using a two-piece bag, attach the bag and the base to each other. Add the barrier ring, if you use one. 7.If directed, apply stoma powder or skin protectant to the skin. 8.Warm the pouch base with your hands or blow with a mathematics department chair for 5 10 seconds. 9.Remove the paper from the adhesive backing of the pouch base. 10.Press the adhesive backing onto the skin around the stoma. 11.Gently rub the pouch base onto the skin. This creates heat that helps the barrier to stick. 12.Apply barrier strips to the edges of the pouch, if desired. 13.Dispose of the soiled pouch, and wash your hands. General recommendations Avoid wearing tight clothes or having anything press directly on your stoma or bag. Change your clothing whenever it is soiled or damp. You may shower or bathe with the bag on or off. Do not use harsh or oily soaps or lotions. Dry the skin and bag after bathing. Do not shower or bathe right after changing the pouch. Wait 4 5 hours. Store all supplies in a cool, dry place. Do not leave supplies in extreme heat because some parts can melt or not stick as well. Whenever you leave home, take extra clothing and an extra ostomy pouch with you. If your bag gets wet, you can dry it with a mathematics department chair on the cool setting. To prevent odor, you may put drops of ostomy deodorizer in the bag. If recommended by your health care provider, put ostomy lubricant inside the bag. This helps stool slide out of the bag more easily and completely. Contact a health care provider if: You have new or worsening redness, warmth, swelling, irritation, itching, or pain around the stoma. You have new or worsening changes to the stoma, such as bleeding, trauma, or a dark and dusky color. There are changes to the drainage from the stoma, such as pus, blood, a large amount of liquid drainage, or little to no stool drainage. Your stoma extends in or out farther than normal. You need to change your bag every day or have frequent leaks. You have a fever. Get help right away if: Your stool is bloody. You have nausea or you vomit. You have trouble breathing. These symptoms may be an emergency. Get help right away. Call 911. Do not wait to see if the symptoms will go away. Do not drive yourself to the hospital. Summary Measure your stoma opening regularly and record the size. Watch for changes. Empty your bag at bedtime, before physical activity or sexual relations, and whenever it is one-third to one-half full. Do not let the bag get more than half-full with stool or gas. Change your bag every 3 4 days or as often as told by your health care provider. Whenever you leave home, take extra clothing and an extra ostomy pouch with you. This information is not intended to replace advice given to you by your health care provider. Make sure you discuss any questions you have with your health care provider. Document Revised: 05/18/2022 Document Reviewed: 05/18/2022 Epoch Patient Education 2023 [employer]. 06/02/2024 10:33:06 Acute Kidney Injury, Adult Acute Kidney Injury, Adult Acute kidney injury is a sudden decrease in the ability of the kidneys to do what they are supposedto do. The kidneys are a pair of organs that: Make urine. Make hormones. Keep the right amount of fluids and chemicals in the body. This condition ranges from mild to severe. Over time, it may turn into long-term (chronic) kidney disease. Finding and treating the injury early may keep it from turning into chronic kidney disease. What are the causes? Common causes of this condition include: A problem with blood flow to the kidneys. This may be caused by: ?Low blood pressure, shock, or severe dehydration. ?Severe blood loss. ?Heart and blood vessel disease. ?Severe huerta. ?Liver disease. Direct damage to the kidneys. This may be caused by: ?Certain medicines or toxins. ?Kidney disease. ?Contrast dye used in imaging tests. ?An infection of the kidney or bloodstream. ?Problems from surgery. ?Trauma to the kidney area. ?Organ failure. This includes heart or liver failure. A sudden block in urine flow. This may be caused by: ?Cancer. ?Kidney stones. ?An enlarged prostate. What increases the risk? You may be more likely to develop this condition if: You are older than 65 years of age. You are female. You are in the hospital. You may be even more at risk if you are very sick. You have certain conditions. These may include: ?Chronic kidney or liver disease. ?Diabetes. ?Heart disease and heart failure. ?Lung disease. What are the signs or symptoms? This condition may not cause symptoms until it becomes severe. If it does, symptoms may include: Feeling very tired or having trouble staying awake. Nausea or vomiting. Swelling (edema) of the face, legs, ankles, or feet. Pain in your abdomen, back, or along the side of your back (flank). Urine changes. You may: ?Make little or no urine. ?Pass urine with a weak flow. Muscle twitches and cramps. These are most often in the legs. Confusion or trouble focusing. Not feeling the urge to eat. Fever. How is this diagnosed? This condition may be diagnosed based on your symptoms and your medical history. You may have a physical exam done. You may also have tests, such as: Blood tests. Urine tests. Imaging tests. A kidney biopsy. This is when a sample of kidney tissue is removed and looked at under a microscope. How is this treated? Treatment depends on the cause and how severe the condition is. In mild cases, treatment may not beneeded. The kidneys may heal on their own. In severe cases, treatment may include: Treating the cause of the kidney injury. This may mean that you have to change your medicines or the doses you take. Getting fluids through an IV tube. Having a flexible tube (catheter) put in. This tube will drain urine and prevent blockages. Trying to keep problems from starting. This may mean not using certain medicines or not having tests done that could cause more injury. In some cases, you may also need: Dialysis or continuous renal replacement therapy (CRRT). This treatment uses a machine to do the job of the kidneys. Surgery. This may be done to repair a damaged kidney. It could also be done to remove a blockage inthe urinary tract. Follow these instructions at home: Medicines Take blqb-cae-fsbnqlq and prescription medicines only as told by your health care provider. Do not take new medicines unless approved by your health care provider. Many medicines can make kidney damage worse. Do not take vitamin or mineral supplements unless approved by your health care provider. Some of these can make kidney damage worse. Lifestyle Make changes to your diet as told by your health care provider. You may need to eat less protein. Get to, and stay at, a healthy weight. If you need help, ask your health care provider. Start or keep up an exercise plan. Exercise at least 30 minutes a day, 5 days a week. Do not use any products that contain nicotine or tobacco. These products include cigarettes, chewing tobacco, and vaping devices, such as e-cigarettes. If you need help quitting, ask your health careprovider. General instructions Keep track of your blood pressure. Tell your health care provider if you notice any changes. Keep your vaccines up to date. Ask your health care provider which vaccines you need. Keep all follow-up visits. Your health care provider will need to monitor your kidneys. Where to find support [place] [employer]: aakp.org [place] [employer]: akfinc.org Where to find more information National Kidney Foundation: kidney.org Medical Education [place]: ?LifeOptions: lifeoptions.org ?Kidney School: kidneyschool.org Contact a health care provider if: Your symptoms get worse. You have new symptoms, such as: ?Headaches. ?Skin that is darker or director of community center than normal. ?Easy bruising. ?Feeling itchy. ?Hiccups. ?Lack of menstrual periods. You have a fever. Get help right away if: You have signs of severe kidney disease, such as: ?Chest pain. ?Shortness of breath. ?Seizures. You have pain or bleeding when you pass urine. You make little or no urine. These [...] provider. Document Revised: 11/25/2022 Document Reviewed: 11/25/2022 Epoch Patient Education 2023 [employer]. 06/02/2024 10:33:04 Health Risks of Smoking Health Risks of [...] Department of Health and Human Services: www.smokefree.gov [place] [employer]: www.freedomfromsmoking.org [place] [employer]: www.heart.org Where to find more [...] provider. Document Revised: 05/10/2022 Document Reviewed: 05/10/2022 Epoch Patient Education 2023 [employer]. Follow Up Care 04/30/2024 15:52:50 With:Tristen AQUINO, APPLICATION ADMINISTRATOR-PROCUREMENT BUYER, Sherie Dash Address: [address] [place] [phone] When: only if needed [facility] 01-14-2025 NotePatient Education Caregiving Colostomy Home Guide, Adult A colostomy is a surgically created opening (ostomy) that brings a piece of the large intestine through an opening in the abdomen to create a stoma. The stoma allows stool (feces) and gas (flatus) toleave the body. A stoma may be a [...] or curved (convex), drainable, and closed or ventedoptions. Your health care provider will help you [...] blood, a large amount of liquid drainage, orlittle to no stool drainage. ??? Measure the [...] pieces of toilet paper into the toilet water.This will prevent splashing as you empty the stool into the toilet. Sit far back on the toilet seat. ??? If draining into a container, place a few pieces of moistened toilet paper in the bottom of thecontainer. This can help when emptying the container. 2. Remove the clip or the cfgx-itr-rrsl fastener from the tail end of the bag. 3. Unroll the tail, then empty the stool into the toilet or container. 4. Clean the tail with toilet paper or a moist towelette. 5. Reroll the tail, and close it with the clip or the kser-kpy-nvcr fastener. 6. Wash your hands. How to [...] may use the cool setting on a mathematics department chair to do this. 5. Use a tracing pattern (template) to cut the skin barrier to the size needed. The opening should be large enough to fit around the stoma, but you should not see exposed skin. 6. If you are using a two-piece bag, attach the bag and the base to each other. Add the barrier ring, if you use one. 7. (more content not included)...[facility]12-08-2024 Hospital Discharge instructions Patient Education 04/28/2024 17:57:07 Acute Kidney Injury, Adult Acute Kidney Injury, Adult Acute kidney injury is a sudden decrease in the ability of the kidneys to do what they are supposedto do. The kidneys are a pair of organs that: Make urine. Make hormones. Keep the right amount of fluids and chemicals in the body. This condition ranges from mild to severe. Over time, it may turn into long-term (chronic) kidney disease. Finding and treating the injury early may keep it from turning into chronic kidney disease. What are the causes? Common causes of this condition include: A problem with blood flow to the kidneys. This may be caused by: ?Low blood pressure, shock, or severe dehydration. ?Severe blood loss. ?Heart and blood vessel disease. ?Severe huerta. ?Liver disease. Direct damage to the kidneys. This may be caused by: ?Certain medicines or toxins. ?Kidney disease. ?Contrast dye used in imaging tests. ?An infection of the kidney or bloodstream. ?Problems from surgery. ?Trauma to the kidney area. ?Organ failure. This includes heart or liver failure. A sudden block in urine flow. This may be caused by: ?Cancer. ?Kidney stones. ?An enlarged prostate. What increases the risk? You may be more likely to develop this condition if: You are older than 65 years of age. You are female. You are in the hospital. You may be even more at risk if you are very sick. You have certain conditions. These may include: ?Chronic kidney or liver disease. ?Diabetes. ?Heart disease and heart failure. ?Lung disease. What are the signs or symptoms? This condition may not cause symptoms until it becomes severe. If it does, symptoms may include: Feeling very tired or having trouble staying awake. Nausea or vomiting. Swelling (edema) of the face, legs, ankles, or feet. Pain in your abdomen, back, or along the side of your back (flank). Urine changes. You may: ?Make little or no urine. ?Pass urine with a weak flow. Muscle twitches and cramps. These are most often in the legs. Confusion or trouble focusing. Not feeling the urge to eat. Fever. How is this diagnosed? This condition may be diagnosed based on your symptoms and your medical history. You may have a physical exam done. You may also have tests, such as: Blood tests. Urine tests. Imaging tests. A kidney biopsy. This is when a sample of kidney tissue is removed and looked at under a microscope. How is this treated? Treatment depends on the cause and how severe the condition is. In mild cases, treatment may not beneeded. The kidneys may heal on their own. In severe cases, treatment may include: Treating the cause of the kidney injury. This may mean that you have to change your medicines or the doses you take. Getting fluids through an IV tube. Having a flexible tube (catheter) put in. This tube will drain urine and prevent blockages. Trying to keep problems from starting. This may mean not using certain medicines or not having tests done that could cause more injury. In some cases, you may also need: Dialysis or continuous renal replacement therapy (CRRT). This treatment uses a machine to do the job of the kidneys. Surgery. This may be done to repair a damaged kidney. It could also be done to remove a blockage inthe urinary tract. Follow these instructions at home: Medicines Take rftt-rfc-pnqwian and prescription medicines only as told by your health care provider. Do not take new medicines unless approved by your health care provider. Many medicines can make kidney damage worse. Do not take vitamin or mineral supplements unless approved by your health care provider. Some of these can make kidney damage worse. Lifestyle Make changes to your diet as told by your health care provider. You may need to eat less protein. Get to, and stay at, a healthy weight. If you need help, ask your health care provider. Start or keep up an exercise plan. Exercise at least 30 minutes a day, 5 days a week. Do not use any products that contain nicotine or tobacco. These products include cigarettes, chewing tobacco, and vaping devices, such as e-cigarettes. If you need help quitting, ask your health careprovider. General instructions Keep track of your blood pressure. Tell your health care provider if you notice any changes. Keep your vaccines up to date. Ask your health care provider which vaccines you need. Keep all follow-up visits. Your health care provider will need to monitor your kidneys. Where to find support [place] [employer] Patients: aakp.org [place] [employer]: akfinc.org Where to find more information National Kidney Foundation: kidney.org Medical Education [place]: ?LifeOptions: lifeoptions.org ?Kidney School: kidneyschool.org Contact a health care provider if: Your symptoms get worse. You have new symptoms, such as: ?Headaches. ?Skin that is darker or director of community center than normal. ?Easy bruising. ?Feeling itchy. ?Hiccups. ?Lack of menstrual periods. You have a fever. Get help right away if: You have signs of severe kidney disease, such as: ?Chest pain. ?Shortness of breath. ?Seizures. You have pain or bleeding when you pass urine. You make little or no urine. These [...] provider. Document Revised: 11/25/2022 Document Reviewed: 11/25/2022 Epoch Patient Education 2023 [employer]. 04/28/2024 17:57:02 Ileostomy Ileostomy Ileostomy is a surgery to redirect [...] permanent. Tell a health care provider about: Any allergies you have. All medicines you are taking, including vitamins, herbs, eye drops, creams, and ojxm-man-rsoetrr medicines. Any problems you or family members have had with anesthesia. Any bleeding problems you have. Any surgeries you have had. Any medical conditions you have or have had. Whether you are or may be . What are the risks? Your health care provider will talk with you about risks. These may include: Infection. Bleeding. Allergic reactions to medicines or dyes. Damage to nearby structures or organs. Lung problems, such as: ?Lung infection (pneumonia). ?Pulmonary embolism. This is when a blood clot forms in a leg and travels to the lung. Blockage of the intestine (ileus). Tissue that bulges through a weak spot in the abdomen muscles (hernia). Part of the small intestine coming out through the stoma (prolapse). Dehydration. What happens before the surgery? When to stop eating and drinking Follow instructions from your health care provider about what you may eat and drink. These may include: 8 hours before your procedure ?Stop eating most foods. Do not eat meat, fried foods, or fatty foods. ?Eat only light foods, such as toast or crackers. ?All liquids are okay except energy drinks and alcohol. 6 hours before your procedure ?Stop eating. ?Drink only clear liquids, such as water, clear fruit juice, black coffee, plain tea, and sports drinks. ?Do not drink energy drinks or alcohol. 2 hours before your procedure ?Stop drinking all liquids. ?You may be allowed to take medicines with small sips of water. If you do not follow your health care provider's instructions, your procedure may be delayed or canceled. Medicines Ask your health care provider about: Changing or stopping your regular medicines. These include any diabetes medicines or blood thinnersyou take. Taking medicines such as aspirin and ibuprofen. These medicines can thin your blood. Do not take them unless your health care provider tells you to. Taking zdht-kze-fpjoqbx medicines, vitamins, herbs, and supplements. Exams and tests You will have a physical exam, which may include a rectal exam. You may have tests, such as: ?Blood tests. ?Stool tests. ?X-rays. ?Colonoscopy. General instructions Ask your health care provider: ?How your surgery and stoma site will be marked. ?What steps will be taken to help prevent infection. These may include: ?Removing hair at the surgery site. ?Washing skin with a soap that kills germs. ?Taking antibiotics. Do not use any products that contain nicotine or tobacco for at least 4 weeks before the procedure.These products include cigarettes, chewing tobacco, and vaping devices, such as e-cigarettes. If you need help quitting, ask your health care provider. What happens during the surgery? An IV will be inserted into one of your veins. You may be given: ?A sedative. This helps you relax. ?Anesthesia. This will: ?Numb certain areas of your body. ?Make you fall asleep for surgery. A drainage tube called a nasogastric tube (NG tube) may be passed through your nose and into your stomach. An incision will be made in your abdomen. Your ileum will be cut so that it is divided in two. The end of the ileum will be attached to your abdomen with stitches (sutures) to make the stoma. An ostomy pouch will be attached to your stoma. The incision in your upper abdomen will be closed with sutures and may be covered with a bandage (dressing). The procedure may vary among health care providers and hospitals. What happens after the surgery? General information Your blood pressure, heart rate, breathing rate, and blood oxygen level will be monitored until youleave the hospital or clinic. You will have some pain. Medicines will be available to help you. You will be asked to: ?Get out of bed and start walking as soon as you are able. ?Do deep breathing exercises several times a day to prevent pneumonia. You will be taught how to care for your stoma and ostomy pouch. Wear compression stockings as told by your health care provider. These stockings help to prevent blood clots and reduce swelling in your legs. Do not drive or operate machinery until your health care provider says that it is safe. Hydration and nutrition You may continue to get fluids and medicines through your IV. You may not be able to drink fluids or eat solid food for at least 24 hours after your procedure. You may be given ice chips to suck on until you are able to drink fluids. The NG tube may stay in place until you can drink and eat normally. This information is not intended to replace advice given to you by your health care provider. Make sure you discuss any questions you have with your health care provider. Document Revised: 11/09/2022 Document Reviewed: 11/09/2022 Epoch Patient Education 2023 [employer]. Follow Up Care 04/26/2024 10:01:15 With:Tristen AQUINO, APPLICATION ADMINISTRATOR-ROBERT, Sherie Dash Address: [address] [place] [phone] When:Within 1 Month(s) [facility] 12-08-2024 NotePatient Education Gastroenterology Ileostomy Ileostomy is a surgery [...] including vitamins, herbs, eye drops, creams, and ggof-fui-ldciqjm medicines. ??? Any problems you or family [...] care provider tells you to. ??? Taking vpra-nkl-cpbvdwy medicines, vitamins, herbs, and supplements. Exams and [...] and blood oxygen level will be monitored untilyou leave the hospital or clinic. ??? You [...] Do not drive or operate machinery until (more content not included)...[facility]12-05-2024 Hospital Discharge instructions* Discharge Instr - Activity* Delilah Altamirano RN - 04/25/2024 1:34 PM EST Up as directed by therapy. * Discharge Instr - Other Orders* Delilah Altamirano RN - 04/25/2024 2:54 PM EST Please call [facility] in the morning [phone] to verify insurance has been authorized for infusions. * Attachments The following attachments cannot be sent through Care Everywhere. * Blood Transfusions: [facility] Info (Armenian[facility] of Present illness Narrative* Shanel Espinoza MD - 04/25/2024 11:24 AM EST Images from the original note were not included. Hospitalist Progress Note PCP: Sherie Ramon, APPLICATION ADMINISTRATOR - PROCUREMENT BUYER Date of Admission: 04/20/2024 Chief Complaint: no new complains Subjective: patient awake/alert Medications: Reviewed Infusion Medications dextrose sodium chloride Scheduled Medications Vitamin D 2,000 Units Oral Dinner cyanocobalamin 1,000 mcg IntraMUSCular Weekly coenzyme Q10 100 mg Oral Daily lidocaine 3 patch TransDERmal Daily miconazole Topical BID piperacillin-tazobactam 3,375 mg IntraVENous Q6H enoxaparin 40 mg SubCUTAneous Daily buPROPion 150 mg Oral BID nicotine 1 patch TransDERmal Daily tamsulosin 0.4 mg Oral Daily lactobacillus 1 capsule Oral BID rOPINIRole 1 mg Oral Nightly clopidogrel 75 mg Oral Daily gabapentin 600 mg Oral TID metoprolol succinate 25 mg Oral Daily pantoprazole 40 mg Oral Daily PRN Meds: acetaminophen, bisacodyl, sodium phosphate, Benzocaine-Menthol, ondansetron OR ondansetron, glucose, dextrose bolus OR dextrose bolus, glucagon (rDNA), dextrose, promethazine, naloxone 0.4 mg in 10 mL sodium chloride syringe, sodium chloride, oxyCODONE-acetaminophen OR oxyCODONE- acetaminophen, ipratropium 0.5 mg-albuterol 2.5 mg, sodium chloride flush, calcium carbonate, sodium chloride, fluticasone No intake or output data in the 24 hours ending 04/25/24 1124 Exam: BP 107/78 Pulse 89 Temp 98.1 F (36.7 C) (Oral) Resp 17 Ht 1.778 m (5' 10 ) Wt 78.4 kg (172 lb 12.8 oz) SpO2 95% BMI 24.79 kg/m General appearance: No apparent distress, appears stated age and cooperative. HEENT: Pupils equal, round, and reactive to light. Conjunctivae/corneas clear. Neck: Supple, with full range of motion. No jugular venous distention. Trachea midline. Respiratory: Normal respiratory effort. Clear to auscultation, bilaterally without Rales/Wheezes/Rhonchi. Cardiovascular: Regular rate and rhythm with normal S1/S2 without murmurs, rubs or gallops. Abdomen:colostomy in place Soft, non-tender, non-distended with normal bowel sounds. Musculoskeletal: No clubbing, cyanosis or edema bilaterally. Full range of motion without deformity. Skin: Skin color, texture, turgor normal. No rashes or lesions. Neurologic: Neurovascularly intact without any focal sensory/motor deficits. Cranial nerves: II-XIIintact, grossly non-focal. Psychiatric: Alert and oriented, thought content appropriate, normal insight Capillary Refill: Brisk,< 3 seconds Peripheral Pulses: +2 palpable, equal bilaterally Labs: Recent Labs 04/25/24 0628 WBC 15.6* HGB 9.4* HCT 28.7* PLT 970* Recent Labs 04/25/24 0628 NA 140 K 3.8 CL 104 CO2 27 BUN 7* CREATININE 1.11 CALCIUM 8.9 No results for input(s): AST , ALT , BILIDIR , BILITOT , ALKPHOS in the last 72 hours. No results for input(s): INR in the last 72 hours. No results for input(s): CKTOTAL , TROPONINI in the last 72 hours. Urinalysis: Lab Results Component Value Date/Time NITRU NEGATIVE 01/12/2021 10:59 AM WBCUA 0 TO 2 01/12/2021 10:59 AM BACTERIA NOT REPORTED 01/12/2021 10:59 AM RBCUA 0 TO 2 01/12/2021 10:59 AM GLUCOSEU NEGATIVE 01/12/2021 10:59 AM Radiology: No orders to display Assessment/Plan: Active Hospital Problems Diagnosis Date Noted Primary hypertension [I10] 04/23/2024 Priority: High Smoker [F17.200] 12/28/2021 Priority: Medium Peripheral vascular disease (HCC) [I73.9] 12/28/2021 Priority: Medium Post-op pain [G89.18] 04/22/[address] (HCC) [Z93.2] 04/22/2024 Impaired mobility & ADLs dt RA flare sp debility iliostomy [Z74.09, Z78.9] 04/16/2024 Rheumatoid arthritis (HCC) [M06.9] 04/16/2024 Multiple joint pain [M25.50] 04/16/2024 Shock [R57.9] 04/15/2024 Urinary retention [R33.9] 04/15/2024 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] 04/12/2024 Sciatica [M54.30] 03/16/2022 Atherosclerosis of [place] arteries of extremities with intermittent claudication, left leg (HCC) [I70.212] 03/16/2021 Tobacco use [Z72.0] 01/13/2021 Lumbar degenerative disc disease [M51.369] GERD (gastroesophageal reflux disease) [K21.9] 09/29/2014 DVT Prophylaxis: lovenox Diet: ADULT DIET; Regular; Low Fiber Code Status: Full Code PT/OT Eval Status: done Dispo - Diverticulitis/peritonitis- IV atbs per ID recommendation- post PICC placement Smoking- advised stop, pt accepted nicotinic patch BPH-post fraire cath placement, continue flomax, urology on case for further recommendations-fraire were removed, patient urinated well HTN/tachycardia- on B blockers Postoperative anemia- resolved, follow up with CBC Thrombocytopenia/leucocytosis due to ongoing peritonitis? Continue atbs, will follow up with CBC SANDEEP due to above- resolved, Oral candidiasis- on PO nystatin, follow up clinically Medically stable for acute rehab admission at [facility] TTS: 45 minutes where I focused more than 75% of my attention on rendering care, and planning treatment course for this patient, in addition to talking to RN team, mid levels, consulting with other physicians and following up on labs and imaging. * Daksha Barrett OT - 04/25/2024 10:50 AM EST OCCUPATIONAL THERAPY INPATIENT REHAB TREATMENT NOTE [facility] NAME: Jasmeet Perdue : 1960 (63 y.o.) CODE STATUS: Full Code Room: R253/R253-01 Date of Service: 04/25/2024 Referring Physician: Dr Dong Rehab Diagnosis: Imp mob and ADLs D/T debility secondary to abdominal surgery Hospital course: Comments: 63 y.o. male patient with PMHx of diverticulitis of large intestine with suspicion for fistula and admitted 04/10 for sigmoid resection with ileostomy performed by Dr. Hall. Post-op recovery c/b hemorraghic shock requiring second trip back to OR 04/12 for ex-lap, washout and splenectomy. Medically complex with SANDEEP and urinary retention requiring fraire catheter. Restrictions Restrictions/Precautions Restrictions/Precautions: Fall Risk Patient's date of confirmed: Yes SAFETY: Safety Devices Safety Devices in place: Yes Type of devices: All fall risk precautions in place;Left in chair (pt IND in room) SUBJECTIVE: Subjective Subjective: very very disappointed pt referring to scheduled discharge being tentatively rescheduled Pain at start of treatment: No Pain at end of treatment: No COGNITION: Orientation Overall Orientation Status: Within Functional Limits Cognition Overall Cognitive Status: WFL OBJECTIVE: Grooming/Oral Hygiene Assistance Level: Independent Skilled Clinical Factors: Standing at sink Upper Extremity Bathing Assistance Level: Modified independent Lower Extremity Bathing Assistance Level: Modified independent Upper Extremity Dressing Assistance Level: Independent Skilled Clinical Factors: long sleeve t shirt Lower Extremity Dressing Assistance Level: Modified independent Skilled Clinical Factors: standing and sitting at chair in bathroom Putting On/Taking Off Footwear Assistance Level: Modified independent Skilled Clinical Factors: socks and slip on shoes - completed shoes 2-3x throughout Toileting Skilled Clinical Factors: pt empties ostomy with mod I - denies need to use toilet to urinate Toilet Transfers Skilled Clinical Factors: denies need; emptied ostomy into canister Tub/Shower Transfers Type: Shower Transfer From: Rolling walker Transfer To: Shower chair with back Assistance Level: Modified independent Skilled Clinical Factors: grab bars Functional Mobility Activity: To/From bathroom;Retrieve items;Transport items Assistance Level: Independent Skilled Clinical Factors: no AD - pt ambulates within room throughout entire session Sit to Supine Assistance Level: Independent Supine to Sit Assistance Level: Independent Skilled Clinical Factors: completes several times throughout session for wound care and covering dressing/ostomy bag Sit to Stand Assistance Level: Independent Skilled Clinical Factors: completed several times throughout session from various surfaces Stand to Sit Assistance Level: Independent Skilled Clinical Factors: completed several times throughout session from various surfaces Bed To/From Chair Technique: Stand step Assistance Level: Independent Reviewed remainder of pt's home exercise program on this date to assess pt understanding and increase comfort with program to continue upon home-going. Pt provided with 1# dumbbells and HEP to self-initiate, min cues provided for proper form with education on where to look/read if pt isn't sure howto complete. Pt completes 1 set and 10 reps of each with rest breaks as needed. Pt completes one arm at a time per preference. Pt requests only completing the exercises he was unable to complete yesterday, at times requiring cues to maintain attention. Education: Extensive education regarding hospital policies/procedures, emotional support, empathetic discussion on this date regarding pt's frustration with discharge date being tentatively rescheduled. Nursingpresent at times as well and reiterates education/emotional support. Equipment recommendations: OT Equipment Recommendations Other: to be assessed ASSESSMENT: Assessment: Pt initially declining to participate in therapy on this date d/t plan for discharge for today being tentatively rescheduled. With encouragement, education and emotional support, pt agreeable to participate within room however requires continued support throughout session. Pt demos goodcarry over and ability to self-direct care for ostomy/dressings/IV for bathing tasks. Activity Tolerance: Patient tolerated treatment well PLAN OF CARE: Strengthening, Patient/Caregiver education & training, Equipment evaluation, education, & procurement, Self-Care / ADL, Endurance training Continue per OT POC for planned discharge on 04-24-24. Patient goals : To be able to walk and learn how to put these bags on and go home Time Frame for [facility] Goals : Within 1 week patient to demonstrate progress in the following areas in order to meet alf goals in as stated in the initial evaluation [facility] Goal 1: improve balance [facility] Goal 2: increase endurance [facility] Goal 3: improve self care status Therapy Time: Individual Group Co-Treat Time In 929 Time Out 1043 Minutes 73 ADL/IADL trainin minutes Other (specify): 18 minutes Electronically signed by: Daksha Barrett OT, 04/25/2024, 11:00 AM * Delilah Altamirano RN - 04/25/2024 10:04 AM EST New order for hematology consult d/t critical platelet level. Patient aware discharge home today isnow pending. Message sent to ID regarding possibly switching IV ATB to PO. Patient seen by ID and hematology consult d/c at this time. May discharge home as planned. Will have IV ATB (Invanz) ordered daily x10 days via outpatient infusion center. Patient and agreeable to this. Will d/c with PICC line to RU. at11:27 AM EST * Bárbara Dong DO - 04/25/2024 8:25 AM EST Subjective: The patient complains of severe acute on chronic progressive fatigue, generalized weakness and postop abdominal pain partially relieved by rest, medications and opiate titration, PT, OT, and rest and exacerbated by recent ileostomy and colectomy with postop splenectomy due to bleeding and shock. 63 y.o. male admitted to [facility] on 04/10/2024. Patient is recovering from Procedure Summary Date: 04/10/24 Room / Location: [facility] [facility] OR [facility] Anesthesia Start: 952 Anesthesia Stop: 125 Procedure: Sigmoid colectomy with loop ileostomy (Abdomen/Perineum) Diagnosis: Diverticulitis large intestine (Diverticulitis large intestine [K57.32]) Surgeons: Beltran Hall MD Responsible Provider: Iftikhar Moore MD Anesthesia Type: general, regional ASA Status: 3 Postop he had arrhythmias and low blood pressure. He was found to be in shock and was taken back tothe OR after it was found or suspected that he had a bleeding spleen. Procedure Summary Date: 04/11/24 Room / Location: [facility] / [facility] Anesthesia Start: 800 Anesthesia Stop: 100 Procedure: SPLEENECTOMY, EXPLORATORY LAPAROTOMY room icu:1 Diagnosis: Bleeding (Bleeding [R58]) Surgeons: Beltran Hall MD Responsible Provider: Iftikhar Vang MD Anesthesia Type: general ASA Status: 4 - Emergent He had had a colonoscopy the week prior to admission for obstipation and abdominal pain-the endoscopy could not be performed because the camera could not be advanced. He was originally admitted under the care of of colorectal surgery for exploratory lap on 04/10/2024. CAT scan has been concerning for diverticulitis and had a previous abscess. Postop he is been having urinary retention Fraire catheter is placed and he was started on Flomax. I am concerned about patient s medical complexities and barriers to advancing in rehab goals including controlling his pain and infection. I discussed current functional, rehabilitation, medical status with other rehabilitation providers including nursing and case management. According to recent nursing note, Dr Henriquez updated regarding critical lab platelet of 970. . I have transitioned him to independent around working on balance prior level of functioning and ADLs as we have focus on consistency of function and work with his insurance company to find a home health care company that we will take his insurance for the IV antibiotics that he needs. The actual antibiotics are covered but his Medicare replacement is not excepted by any of the home health care companies in this area. Note patient is very angry and irrational very rude to him myself and staff. Emotional support given and we tried to explain in the it is the problem is not with us it is that [facility] [employer] company will take on his insurance. Will continue to see if infectious disease cansomeway modify her as antibiotic so that he can do it and at home without the home health care nurse. ROS x10: The patient also complains of severely impaired mobility and activities of daily living. Otherwise no new problems with vision, hearing, nose, mouth, throat, dermal, cardiovascular, GI, , pulmonary, musculoskeletal, psychiatric or neurological. See Rehab H&P on Rehab chart dated . Vital signs: BP 107/78 Pulse 89 Temp 98.1 F (36.7 C) (Oral) Resp 17 Ht 1.778 m (5' 10 ) Wt 78.4 kg (172 lb 12.8 oz) SpO2 95% BMI 24.79 kg/m I/O: PO/Intake: fair PO intake, no problems observed or reported. Bowel/Bladder: continent, ileostomy and Fraire catheter for retention General: Patient is well developed, adequately nourished, non-obese and well kempt. HEENT: PERRLA, hearing intact to loud voice, external inspection of ear and nose benign. Inspection of lips, tongue and gums Musculoskeletal: No significant change in strength or tone. All joints stable. Inspection and palpation of digits and nails show no clubbing, cyanosis or inflammatory conditions. Neuro/Psychiatric: Affect: flat. Alert and oriented to person, place and situation. No significant change in deep tendon reflexes or Sensation Lungs: Diminished, CTA-B. Respiration effort is normal at rest.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 tablet 2,000 Units 2,000 Units Oral Dinner Scullin, Bárbara, DO 2,000 Units at 04/23/24 1532 cyanocobalamin injection 1,000 mcg 1,000 mcg IntraMUSCular Weekly Scullin, Bárbara, DO 1,000 mcg at106/23/23 1003 coenzyme Q10 capsule 100 mg 100 mg Oral Daily Scullin, Bárbara, DO 100 mg at 04/24/24 0910 lidocaine 4 % external patch 3 patch 3 patch TransDERmal Daily Scullin, Bárbara, DO oxymetazoline (AFRIN) 0.05 % nasal spray 2 spray 2 spray Each Nostril BID Scullin, Bárbara, DO 2 spray at 04/24/24 0939 miconazole (MICOTIN) 2 % powder Topical BID Scullin, Bárbara, DO Given at 04/24/24 0938 acetaminophen (TYLENOL) tablet 650 mg 650 mg Oral Q4H PRN Liliana Keen MD 650 mg at 04/23/24 0805 bisacodyl (DULCOLAX) suppository 10 mg 10 mg Rectal Daily PRN Liliana Keen MD sodium phosphate (FLEET) rectal enema 1 enema 1 enema Rectal Daily PRN Liliana Keen MD piperacillin-tazobactam (ZOSYN) 3,375 mg in sodium chloride 0.9 % 50 mL IVPB (mini-bag) 3,375 mg IntraVENous Q6H Liliana Keen MD Stopped at 04/24/24 1053 Benzocaine-Menthol (CEPACOL) 1 lozenge 1 lozenge Oral Q2H PRN Liliana Keen MD ondansetron (ZOFRAN-ODT) disintegrating tablet 4 mg 4 mg Oral Q8H PRN Beltran Hall MD Or ondansetron (ZOFRAN) injection 4 mg 4 mg IntraVENous Q6H PRN Beltran Hall MD enoxaparin (LOVENOX) injection 40 mg 40 mg SubCUTAneous Daily Beltran Hall MD 40 mg at 04/24/24 0910 glucose chewable tablet 16 g 4 tablet Oral PRN Beltran Hall MD dextrose bolus 10% 125 mL 125 mL IntraVENous PRN Beltran Hall MD Or dextrose bolus 10% 250 mL 250 mL IntraVENous PRN Beltran Hall MD glucagon injection 1 mg 1 mg SubCUTAneous PRN Beltran Hall MD dextrose 10 % infusion IntraVENous Continuous PRN Beltran Hall MD buPROPion (WELLBUTRIN SR) extended release tablet 150 mg 150 mg Oral BID Beltran Hall MD 150 mg at 04/24/24 0910 nicotine (NICODERM CQ) 14 MG/24HR 1 patch 1 patch TransDERmal Daily Beltran Hall MD 1 patch at 04/24/24 0938 promethazine (PHENERGAN) injection 6.25 mg 6.25 mg IntraMUSCular Q6H PRN Beltran Hall MD naloxone 0.4 mg in 10 mL sodium chloride syringe IntraVENous PRN Beltran Hall MD 0.9 % sodium chloride infusion IntraVENous PRN Beltran Hall MD oxyCODONE-acetaminophen (PERCOCET) 5-325 MG per tablet 1 tablet 1 tablet Oral Q4H PRN Beltran Hall MD 1 tablet at 04/23/242023 Or oxyCODONE-acetaminophen (PERCOCET) 5-325 MG per tablet 2 tablet 2 tablet Oral Q4H PRN Beltran Hall MD tamsulosin (FLOMAX) capsule 0.4 mg 0.4 mg Oral Daily Beltran Hall MD 0.4 mg at 04/24/24909 ipratropium 0.5 mg-albuterol 2.5 mg (DUONEB) nebulizer solution 1 Dose 1 Dose Inhalation Q4H PRN Beltran Hall MD lactobacillus (CULTURELLE) capsule 1 capsule 1 capsule Oral BID Beltran Hall MD 1 capsule at 04/24/24 09 sodium chloride flush 0.9 % injection 5-40 mL 5-40 mL IntraVENous PRN Beltran Hall MD calcium carbonate (TUMS) chewable tablet 500 mg 500 mg Oral TID PRN Beltran Hall MD sodium chloride (OCEAN, BABY AYR) 0.65 % nasal spray 1 spray 1 spray Each Nostril PRN Beltran Hall MD fluticasone (FLONASE) 50 MCG/ACT nasal spray 1 spray 1 spray Each Nostril Daily PRN Beltran Hall MD rOPINIRole (REQUIP) tablet 1 mg 1 mg Oral Nightly Beltran Hall MD 1 mg at 04/23/242022 clopidogrel (PLAVIX) tablet 75 mg 75 mg Oral Daily Beltran Hall MD 75 mg at 04/24/24909 gabapentin (NEURONTIN) capsule 600 mg 600 mg Oral TID Beltran Hall MD 600 mg at 04/24/24909 metoprolol succinate (TOPROL XL) extended release tablet 25 mg 25 mg Oral Daily Beltran Hall MD 25 mg at 04/24/24909 pantoprazole (PROTONIX) tablet 40 mg 40 mg Oral Daily Beltran Hall MD 40 mg at 04/24/24 09 Patient has no known allergies. reviewed Review of Systems Constitutional: Negative for fever. HENT: Negative for congestion. Respiratory: Negative for apnea. Genitourinary: Negative for hematuria. Neurological: Negative for speech difficulty. Objective: Physical Exam HENT: Mouth/Throat: Mouth: Mucous membranes are moist. Pulmonary: Effort: Pulmonary effort is normal. Skin: General: Skin is warm. Neurological: Mental Status: He is alert and oriented to person, place, and time. Assessment: 63 year old male who is voiding independently without any intervention. He denies any other urological complaints Plan: Continue flomax Monitor for urinary retention Urology signing off the case Maulik Baltazar PA-C * Bárbara Dong DO - 04/24/2024 8:59 AM EST Subjective: The patient complains of severe acute on chronic progressive fatigue, generalized weakness and postop abdominal pain partially relieved by rest, medications and opiate titration, PT, OT, and rest and exacerbated by recent ileostomy and colectomy with postop splenectomy due to bleeding and shock. 63 y.o. male admitted to [facility] on 04/10/2024. Patient is recovering from Procedure Summary Date: 04/10/24 Room / Location: [facility] Anesthesia Start: 952 Anesthesia Stop: 125 Procedure: Sigmoid colectomy with loop ileostomy (Abdomen/Perineum) Diagnosis: Diverticulitis large intestine (Diverticulitis large intestine [K57.32]) Surgeons: Beltran Hall MD Responsible Provider: Iftikhar Moore MD Anesthesia Type: general, regional ASA Status: 3 Postop he had arrhythmias and low blood pressure. He was found to be in shock and was taken back tothe OR after it was found or suspected that he had a bleeding spleen. Procedure Summary Date: 04/11/24 Room / Location: [address] Anesthesia Start: 800 Anesthesia Stop: 100 Procedure: SPLEENECTOMY, EXPLORATORY LAPAROTOMY room icu:1 Diagnosis: Bleeding (Bleeding [R58]) Surgeons: Beltran Hall MD Responsible Provider: Iftikhar Vang MD Anesthesia Type: general ASA Status: 4 - Emergent He had had a colonoscopy the week prior to admission for obstipation and abdominal pain-the endoscopy could not be performed because the camera could not be advanced. He was originally admitted under the care of of colorectal surgery for exploratory lap on 04/10/2024. CAT scan has been concerning for diverticulitis and had a previous abscess. Postop he is been having urinary retention Fraire catheter is placed and he was started on Flomax. I am concerned about patient s medical complexities and barriers to advancing in rehab goals including controlling his pain and infection. I discussed current functional, rehabilitation, medical status with other rehabilitation providers including nursing and case management. According to recent nursing note, spoke with Karla from Caroline Ramon's office regarding following for [facility] services at discharge. She is going to reach out tothe PCP and will call SOCIAL SERVICES DIRECTOR back. . I have transitioned him to independent around working on balance prior level of functioning and ADLs as we have focus on consistency of function and work with his insurance company to find a home health care company that we will take his insurance for the IV antibiotics that he needs. The actual antibiotics are covered but his Medicare replacement is not excepted by any of the home health care companies in this area. ROS x10: The patient also complains of severely impaired mobility and activities of daily living. Otherwise no new problems with vision, hearing, nose, mouth, throat, dermal, cardiovascular, GI, , pulmonary, musculoskeletal, psychiatric or neurological. See Rehab H&P on Rehab chart dated . Vital signs: BP 114/71 Pulse 97 Temp 98.2 F (36.8 C) (Oral) Resp 16 SpO2 98% I/O: PO/Intake: fair PO intake, no problems observed or reported. Bowel/Bladder: continent, ileostomy and Fraire catheter for retention General: Patient is well developed, adequately nourished, non-obese and well kempt. HEENT: PERRLA, hearing intact to loud voice, external inspection of ear and nose benign. Inspection of lips, tongue and gums Musculoskeletal: No significant change in strength or tone. All joints stable. Inspection and palpation of digits and nails show no clubbing, cyanosis or inflammatory conditions. Neuro/Psychiatric: Affect: flat. Alert and oriented to person, place and situation. No significant change in deep tendon reflexes or Sensation Lungs: Diminished, CTA-B. Respiration effort is normal at rest. Heart: S1 = S2, RRR. No loud murmurs. Abdomen: Soft, ileostomy-tender, no enlargement of liver or spleen. Extremities: Trace lower extremity edema, no tenderness. Skin: Intact to general survey, no visualized or palpated problems healing abdominal incision and-ileostomy. Yeast rash low back Rehabilitation: Physical therapy: FIMS: Bed Mobility: Transfers: Sit to Stand: Supervision Stand to Sit: Supervision, Ambulation Surface: Level tile Device: No Device Assistance: Supervision Quality of Gait: mild unsteadiness with fatigue; mild antalgic pattern Gait Deviations: Slow Josefina Distance: 150 ft Comments: SOB with this distance; SPO2 WNL on RA, Stairs # Steps : 4 Stairs Height: 6 Rails: Right ascending Device: No Device Assistance: Stand by assistance Comment: pt demonstrates reciprocally FIMS: , , Assessment: Pt is 63 y.o. male with continued fatigue and continued balance deficits and requires supervision for safety with mobility at this time. Continued PT is required to progress toward indep for return home and return to work with safety. 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 Patient is in the hospital following extensive abdominal surgery and will benefit from OT to address endurance and self care in order to get patient home at independent level Speech therapy: FIMS: Lab/X-ray studies reviewed, analyzed and discussed with patient and staff: Previous extensive, complex labs, notes and diagnostics reviewed and analyzed. ALLERGIES: Allergies as of 04/20/2024 (No Known Allergies) (please also verify by checking MAR) I reviewed her [place] prescription monitoring service data sheets in hopes of eliminating polypharmacy and weaning to the lowest effective dose of pain medications and eliminating the concomitant use of benzodiazepines. I see no medications of concern. I see no habits of combining sedatives and narcotics. Complex Physical Medicine & Rehab Issues Assess & Plan: Severe abnormality of gait and mobility and impaired self-care and ADL's secondary to progressive weakness dt flare of rheumatoid arthritis with debility status post a splenectomy and ileostomy. Functional and medical status reassessed regarding patient s ability to participate in therapies and patient found to be able to participate in acute intensive comprehensive inpatient rehabilitation program including PT/OT to improve balance, ambulation, ADL s, and to improve the P/AROM. Therapeutic modifications regarding activities in therapies, place, amount of time per day and intensity of therapymade daily. In bed therapies or bedside therapies prn. Bowel ileostomy, and Bladder dysfunction monitoring neurogenic bladder: frequent toileting, ambulate to bathroom with assistance, check post void residuals. Check for C.difficile x1 if >2 loose stools in 24 hours, continue bowel & bladder program. Monitor bowel and bladder function. Lactinex2 PO every AC. MOM prn, Brown Bomb prn, Glycerin suppository prn, enema prn. Ileostomy training Severe postop abdominal pain as well as generalized OA pain: reassess pain every shift and prior toand after each therapy session, give prn Tylenol and Percocet, modalities prn in therapy, Lidoderm,K-pad prn. Skin healing ileostomy and breakdown risk and yeast rash low back: continue pressure relief program. Daily skin exams and reports from nursing. Miconazole powder to SHEILA area and groin Severe fatigue due to nutritional and hydration deficiency: Add vitamin B12 vitamin D and CoQ10 continue to monitor I&O s, calorie counts prn, dietary consult prn. healthy HS snack. Acute episodic insomnia with situational adjustment disorder: consider prn low dose Ambien, monitorfor day time sedation. HS Tuck In Falls risk elevated: patient to use call light to get nursing assistance to get up, bed and chair alarm. Elevated DVT risk: progressive activities in PT, continue prophylaxis RENETTA hose, elevation and Lovenox. Complex discharge planning: Prepare for discharge 04/24/2024 home with his for home health careas well as IV antibiotic therapy. Patient is status weekly team meeting Monday to re-assess progress towards goals, discuss and address social, psychological and medical comorbidities and to address difficulties they may be having progressing in therapy. Patient and family education is in progress.The patient is to follow-up with their family physician after discharge. Complex Active General Medical Issues that complicate care Assess & Plan: COPD-Smoker, Tobacco use-stop smoking,Acute rehab for endurance traing with Pulse Ox to monitoring oxygen saturation and heart rate with O2 titration to lowest effective dose. Pulse oximeter checks to shift and at HS to dose and titrate oxygen and aerosol treatments monitor for nocturnal hypoxemia,monitor vital signs, oxygen prn. Focus on energy conservation. Peripheral vascular disease -Acute rehab to monitor heart rate and rhythm with the option of telemetry and the effects of chronotropic medication with respect to increasing physical activity and exercise in PT, OT, ADLs with medication titration to lowest effective dosing. Continue blood signs every shift focusing on heart rate, rhythm and blood pressure checks with orthostatic checks- monitoring the effect of exercise, therapy and posture. Consult hospitalist for backup medical and adjust/add medications. Monitor heart rate and blood pressure as well as medications effects on vital signs before during and after therapy with especial focus on preventing orthostasis and falls risk. GERD (gastroesophageal reflux disease)-Elevate head of bed after meals, monitor stools for blood, lowest effective dose of PPI, consider Tums. Atherosclerosis of quinault arteries of extremities with intermittent claudication, left leg Status post splenectomy, Post-op pain Shock status post bleed after colectomy requiring splenectomy Multiple joint pain dt OA and Rheumatoid arthritis, Sciatica, Lumbar degenerative disc disease Ileostomy in place -consult enterostomal nurse Review and simplify inpatient and outpatient medications and dosing times. Transition to self medication program if able. Continue to work on consistency of function and find a home health care company that will provide care Bárbara Dong D.O., PM&R Attending [phone] [facility] * Kyra Balderrama MSW, SOCIAL SERVICES DIRECTOR - 04/23/2024 4:56 PM EST [facility] INPATIENT REHABILITATION INDEPENDENT IN ROOM NOTE Room: R2/R253-01 Admit Date: 04/20/2024 Date: 04/22/2024 Patient Name: Jasmeet Perdue : 1960 (63 y.o.) Gender: male Patient orientation to the independent living suite(256) [] Yes [] No [x] NA (Safety checks to consider: Oxygen, Fire Alarm, Stove safety, Call alarm, Bed alarm, Bed power, TV, Phone) Nursin. Pt physical ability to be independent in room/suite: [x] Yes [] No Comment: 2. Pt demonstrates cognitive ability to be independent in room/suite: [x] Yes [] No Comment: 3. Pt demonstrates emotional ability to be independent in room/suite: [x] Yes [] No Comment: 4. Special Considerations/Equipment if needed: [x] NA Comment: Recommend independent in room/suite: [x] Yes [] No Signature: Occupational Therapy: 1. Pt physical ability to be independent in room/suite: [x] Yes [] No Comment: 2. Pt demonstrates cognitive ability to be independent in room/suite: [x] Yes [] No Comment: 3. Pt demonstrates emotional ability to be independent in room/suite: [x] Yes [] No Comment: 4. Special Considerations/Equipment if needed: [] NA Comment: Recommend independent in room/suite: [x] Yes [] No Signature: Physical Therapy: 1. Pt physical ability to be independent in room/suite: [x] Yes [] No Comment: 2. Pt demonstrates cognitive ability to be independent in room/suite: [x] Yes [] No Comment: 3. Pt demonstrates emotional ability to be independent in room/suite: [x] Yes [] No Comment: 4. Special Considerations/Equipment if needed: [x] NA Comment: Recommend independent in room/suite: [x] Yes [] No Signature: Physician: The recommendations and comments have been reviewed. Physician Signature: Bárbara Dong DO * Lance Norwood DO - 04/23/2024 3:47 PM EST Progress Note Patient: Jasmeet Perdue Unit/Bed: R253/R253-01 Date of : 1960 Acct: [id number] Admitting Diagnosis: Impaired mobility and activities of daily living [Z74.09, Z78.9] Date: 04/20/2024 Hospital Day: 3 Chief Complaint: Partial bowel obstruction Subjective Patient is a 63 y.o. male who is seen on rehab floor status post partial bowel resection due to diverticular disease complicated by splenic laceration, status splenectomy. Patient with history of AAAstatus post endograft repair, hypertension, hyperlipidemia, GERD, tobacco abuse. He currently denies any chest pain chest pressure evidence. No shortness of breath or lower extremity edema. No nauseavomiting or syncope Status post negative nuclear stress test in April 2021 Normal sinus rhythm on telemetry 04-23-2024: Patient resting up in chair. Comfortable. Denies chest pain or shortness of breath. Vitals stable Am labs reviewed, hgb 9.0 Review of Systems: Review of Systems Respiratory: Negative for chest tightness and shortness of breath. Cardiovascular: Negative for chest pain, palpitations and leg swelling. All other systems reviewed and are negative. Physical Examination: BP 118/72 Pulse 100 Temp 97.9 F (36.6 C) (Oral) Resp 18 SpO2 93% Physical Exam Cardiovascular: Rate and Rhythm: Normal rate. Pulmonary: Effort: Pulmonary effort is normal. Breath sounds: Normal breath sounds. Abdominal: General: Bowel sounds are normal. Musculoskeletal: Right lower leg: No edema. Left lower leg: No edema. Skin: General: Skin is warm and dry. Neurological: General: No focal deficit present. Mental Status: He is alert. Psychiatric: Mood and Affect: Mood normal. LABS: CBC: Lab Results Component Value Date/Time WBC 16.0 04/22/2024 05:26 AM RBC 2.93 04/22/2024 05:26 AM HGB 9.0 04/22/2024 05:26 AM HCT 27.1 04/22/2024 05:26 AM MCV 92.5 04/22/2024 05:26 AM MCH 30.7 04/22/2024 05:26 AM MCHC 33.2 04/22/2024 05:26 AM RDW 15.4 04/22/2024 05:26 AM PLT 836 04/22/2024 05:26 AM MPV 10.5 01/15/2021 04:26 AM CBC with Differential: Lab Results Component Value Date/Time WBC 16.0 04/22/2024 05:26 AM RBC 2.93 04/22/2024 05:26 AM HGB 9.0 04/22/2024 05:26 AM HCT 27.1 04/22/2024 05:26 AM PLT 836 04/22/2024 05:26 AM MCV 92.5 04/22/2024 05:26 AM MCH 30.7 04/22/2024 05:26 AM MCHC 33.2 04/22/2024 05:26 AM RDW 15.4 04/22/2024 05:26 AM NRBC 2 04/19/2024 06:00 AM BANDSPCT 1 04/18/2024 04:57 AM METASPCT 1 04/15/2024 04:27 AM LYMPHOPCT 16.7 04/22/2024 05:26 AM MONOPCT 7.8 04/22/2024 05:26 AM MYELOPCT 2 04/19/2024 06:00 AM EOSPCT 2.1 04/22/2024 05:26 AM BASOPCT 0.5 04/22/2024 05:26 AM MONOSABS 1.3 04/22/2024 05:26 AM LYMPHSABS 2.7 04/22/2024 05:26 AM EOSABS 0.3 04/22/2024 05:26 AM BASOSABS 0.1 04/22/2024 05:26 AM DIFFTYPE NOT REPORTED 01/14/2021 12:57 PM CMP: Lab Results Component Value Date/Time NA 140 04/22/2024 05:26 AM K 3.8 04/22/2024 05:26 AM K 4.6 04/11/2024 02:26 AM CL 101 04/22/2024 05:26 AM CO2 30 04/22/2024 05:26 AM BUN 11 04/22/2024 05:26 AM CREATININE 1.11 04/22/2024 05:26 AM GFRAA >60.0 06/04/2021 05:59 AM LABGLOM 73.9 04/22/2024 05:26 AM GLUCOSE 104 04/22/2024 05:26 AM CALCIUM 8.7 04/22/2024 05:26 AM BILITOT 0.5 04/15/2024 04:27 AM ALKPHOS 88 04/15/2024 04:27 AM AST 21 04/15/2024 04:27 AM ALT 67 04/15/2024 04:27 AM BMP: Lab Results Component Value Date/Time NA 140 04/22/2024 05:26 AM K 3.8 04/22/2024 05:26 AM K 4.6 04/11/2024 02:26 AM CL 101 04/22/2024 05:26 AM CO2 30 04/22/2024 05:26 AM BUN 11 04/22/2024 05:26 AM CREATININE 1.11 04/22/2024 05:26 AM CALCIUM 8.7 04/22/2024 05:26 AM GFRAA >60.0 06/04/2021 05:59 AM LABGLOM 73.9 04/22/2024 05:26 AM GLUCOSE 104 04/22/2024 05:26 AM Magnesium: Lab Results Component Value Date/Time MG 1.8 04/15/2024 04:27 AM Troponin: No results found for: TROPONINI Radiology: No results found. Assessment: History of AAA status post endovascular repair Diverticular disease status post partial bowel resection Status post splenectomy Hypertension Hyperlipidemia History of tobacco use History of right SFA endarterectomy as well as left common Artery stenting Moderate carotid artery disease Anemia-- hgb today 9.0 Plan: As always, aggressive risk factor modification is strongly recommended. We should adhere to the JNCVIII guidelines for HTN management and the NCEPATP III guidelines for LDL-C management. Maximize cardiac medications Continue with Plavix for now. Maintain hemoglobin greater than 7 Maintain potassium between 4-5 magnesium greater than 2 Check labs periodically GI/DVT prophylaxis Stable from cardiology standpoint to discharge. Follow up with Dr. Oneal post discharge. Attending Supervising Physician's Attestation Statement The patient is a 63 y.o. male. I have performed a history and physical examination of the patient. I discussed the case with the nurse practitioner. I reviewed the patient's Past Medical History, Past Surgical History, Medications, and Allergies. Physical Exam: Vitals: 04/22/24 0922 04/22/24 1948 04/23/24 0745 04/23/24 0807 BP: 100/68 135/77 94/82 118/72 Pulse: 68 (!) 106 (!) 105 100 Resp: 18 20 18 Temp: 98 F (36.7 C) 98.4 F (36.9 C) 97.9 F (36.6 C) TempSrc: Oral Oral Oral SpO2: 93% 95% 93% Pulmonary/Chest: clear to auscultation bilaterally- no wheezes, rales or rhonchi, normal air movement, no respiratory distress Cardiovascular: normal rate, normal S1 and S2, no gallops, intact distal pulses, and no carotid bruits Abdomen: soft, non-tender, non-distended, normal bowel sounds, no masses or organomegaly Active Hospital Problems Diagnosis Date Noted GERD (gastroesophageal reflux disease) [K21.9] 09/29/2014 Priority: High Smoker [F17.200] 12/28/2021 Priority: Medium Peripheral vascular disease (HCC) [I73.9] 12/28/2021 Priority: Medium Post-op pain [G89.18] 04/22/2024 Priority: Low Ileostomy in place (HCC) [Z93.2] 04/22/2024 Priority: Low Impaired mobility & ADLs dt RA flare sp debility iliostomy [Z74.09, Z78.9] 04/16/2024 Priority: Low Rheumatoid arthritis (HCC) [M06.9] 04/16/2024 Priority: Low Multiple joint pain [M25.50] 04/16/2024 Priority: Low Shock [R57.9] 04/15/2024 Priority: Low Urinary retention [R33.9] 04/15/2024 Priority: Low 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] 04/12/2024 Priority: Low Sciatica [M54.30] 03/16/2022 Priority: Low Atherosclerosis of [place] arteries of extremities with intermittent claudication, left leg (HCC) [I70.212] 03/16/2021 Priority: Low Tobacco use [Z72.0] 01/13/2021 Priority: Low Lumbar degenerative disc disease [M51.369] Priority: Low I reviewed and agree with the findings and plan documented in her note . Assessment: History of AAA status post endovascular repair Diverticular disease status post partial bowel resection Status post splenectomy Hypertension Hyperlipidemia History of tobacco use History of right SFA endarterectomy as well as left common Artery stenting Moderate carotid artery disease Anemia-- hgb today 9.0 Plan: As always, aggressive risk factor modification is strongly recommended. We should adhere to the JNCVIII guidelines for HTN management and the NCEPATP III guidelines for LDL-C management. Maximize cardiac medications Continue with Plavix for now. Maintain hemoglobin greater than 7 Maintain potassium between 4-5 magnesium greater than 2 Check labs periodically GI/DVT prophylaxis Stable from cardiology standpoint to discharge. Follow up with Dr. Oneal post discharge. * Noe ZambranoENE - 04/23/2024 3:34 PM EST Physical Therapy Rehab Treatment Note Facility/Department: [facility] Room: [place] [address] NAME: Jasmeet Perdue : 1960 (63 y.o.) CODE STATUS: Full Code Date of Service: 04/23/2024 Restrictions: Restrictions/Precautions: Fall Risk SUBJECTIVE: Subjective: I got my catheter out Pain Pain: 0/10 pre and post pain OBJECTIVE: Transfers Surface: To chair with arms;From chair with arms Additional Factors: Verbal cues;Hand placement cues;Increased time to complete Device: (no AD) Sit to Stand Assistance Level: Modified independent Skilled Clinical Factors: good safety, increased time to stabilize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 Outpatient visit plan No Supplies given Yes Samples requested Yes Referrals: [] [employer] [] Home Health Care [] Supplies [] Other Patient/Caregiver Teaching: Written Instructions given to patient/family Teaching provided: [x] Reviewed GI and A&P [x] Supplies [x] Pouch emptying [x] Manipulate closure [x] Routine Care [] Comment [x] Pouch maintenance Level of patient/caregiver understanding able to: [] Indicates understanding [] Needs reinforcement [] Unsuccessful [x] Verbal Understanding [x] Demonstrated understanding [] No evidence of learning [] Refused teaching [] N/A * Bárbara Dong DO - 04/23/2024 8:37 AM EST Subjective: The patient complains of severe acute on chronic progressive fatigue, generalized weakness and postop abdominal pain partially relieved by rest, medications and opiate titration, PT, OT, and rest and exacerbated by recent ileostomy and colectomy with postop splenectomy due to bleeding and shock. 63 y.o. male admitted to [facility] on 04/10/2024. Patient is recovering from Procedure Summary Date: 04/10/24 Room / Location: [address] Anesthesia Start: 952 Anesthesia Stop: 1258 Procedure: Sigmoid colectomy with loop ileostomy (Abdomen/Perineum) Diagnosis: Diverticulitis large intestine (Diverticulitis large intestine [K57.32]) Surgeons: Beltran Hall MD Responsible Provider: Iftikhar Moore MD Anesthesia Type: general, regional ASA Status: 3 Postop he had arrhythmias and low blood pressure. He was found to be in shock and was taken back tothe OR after it was found or suspected that he had a bleeding spleen. Procedure Summary Date: 04/11/24 Room / Location: [address] Anesthesia Start: 800 Anesthesia Stop: 100 Procedure: SPLEENECTOMY, EXPLORATORY LAPAROTOMY room icu:1 Diagnosis: Bleeding (Bleeding [R58]) Surgeons: Beltran Hall MD Responsible Provider: Iftikhar Vang MD Anesthesia Type: general ASA Status: 4 - Emergent He had had a colonoscopy the week prior to admission for obstipation and abdominal pain-the endoscopy could not be performed because the camera could not be advanced. He was originally admitted under the care of of colorectal surgery for exploratory lap on 04/10/2024. CAT scan has been concerning for diverticulitis and had a previous abscess. Postop he is been having urinary retention Fraire catheter is placed and he was started on Flomax. I am concerned about patient s medical complexities and barriers to advancing in rehab goals including controlling his pain and infection. I discussed current functional, rehabilitation, medical status with other rehabilitation providers including nursing and case management. According to recent nursing note, spoke with pt about the team meeting. Pt aware that discharge is 04/24. CM went over goals and progress, Pt has concerns with going home with fraire and needing IV therapy at home . I am concerned that we may have some difficulty getting his IV medications approved by time of discharge ROS x10: The patient also complains of severely impaired mobility and activities of daily living. Otherwise no new problems with vision, hearing, nose, mouth, throat, dermal, cardiovascular, GI, , pulmonary, musculoskeletal, psychiatric or neurological. See Rehab H&P on Rehab chart dated . Vital signs: BP 118/72 Pulse 100 Temp 97.9 F (36.6 C) (Oral) Resp 18 SpO2 93% I/O: PO/Intake: fair PO intake, no problems observed or reported. Bowel/Bladder: continent, ileostomy and Fraire catheter for retention General: Patient is well developed, adequately nourished, non-obese and well kempt. HEENT: PERRLA, hearing intact to loud voice, external inspection of ear and nose benign. Inspection of lips, tongue and gums Musculoskeletal: No significant change in strength or tone. All joints stable. Inspection and palpation of digits and nails show no clubbing, cyanosis or inflammatory conditions. Neuro/Psychiatric: Affect: flat. Alert and oriented to person, place and situation. No significant change in deep tendon reflexes or Sensation Lungs: Diminished, CTA-B. Respiration effort is normal at rest. Heart: S1 = S2, RRR. No loud murmurs. Abdomen: Soft, ileostomy-tender, no enlargement of liver or spleen. Extremities: Trace lower extremity edema, no tenderness. Skin: Intact to general survey, no visualized or palpated problems healing abdominal incision and-ileostomy. Yeast rash low back Rehabilitation: Physical therapy: FIMS: Bed Mobility: Transfers: Sit to Stand: Supervision Stand to Sit: Supervision, Ambulation Surface: Level tile Device: No Device Assistance: Supervision Quality of Gait: mild unsteadiness with fatigue; mild antalgic pattern Gait Deviations: Slow Josefina Distance: 150 ft Comments: SOB with this distance; SPO2 WNL on RA, Stairs # Steps : 4 Stairs Height: 6 Rails: Right ascending Device: No Device Assistance: Stand by assistance Comment: pt demonstrates reciprocally FIMS: , , Assessment: Pt is 63 y.o. male with continued fatigue and continued balance deficits and requires supervision for safety with mobility at this time. Continued PT is required to progress toward indep for return home and return to work with safety. 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 Patient is in the hospital following extensive abdominal surgery and will benefit from OT to address endurance and self care in order to get patient home at independent level Speech therapy: FIMS: Lab/X-ray studies reviewed, analyzed and discussed with patient and staff: No results found for this or any previous visit (from the past 24 hour(s)). Previous extensive, complex labs, notes and diagnostics reviewed and analyzed. ALLERGIES: Allergies as of 04/20/2024 (No Known Allergies) (please also verify by checking MAR) Today I evaluated this patient for periodic reassessment of medical and functional status. The patient was discussed in detail at the treatment team meeting focusing on current medical issues, progress in therapies, social issues, psychological issues, barriers to progress and strategies to address these barriers, and discharge planning. See the addendum to rehab progress note- as a second progress note in the chart. The patient continues to be high risk for future disability and their medical and rehabilitation prognosis continue to be good and therefore, we will continue the patient's rehabilitation course as planned. The patient's tentative discharge date was set. Patient and family education was discussed. The patient was made aware of the team discussion regarding their progress. Complex Physical Medicine & Rehab Issues Assess & Plan: Severe abnormality of gait and mobility and impaired self-care and ADL's secondary to progressive weakness dt flare of rheumatoid arthritis with debility status post a splenectomy and ileostomy. Functional and medical status reassessed regarding patient s ability to participate in therapies and patient found to be able to participate in acute intensive comprehensive inpatient rehabilitation program including PT/OT to improve balance, ambulation, ADL s, and to improve the P/AROM. Therapeutic modifications regarding activities in therapies, place, amount of time per day and intensity of therapymade daily. In bed therapies or bedside therapies prn. Bowel ileostomy, and Bladder dysfunction monitoring neurogenic bladder: frequent toileting, ambulate to bathroom with assistance, check post void residuals. Check for C.difficile x1 if >2 loose stools in 24 hours, continue bowel & bladder program. Monitor bowel and bladder function. Lactinex2 PO every AC. MOM prn, Brown Bomb prn, Glycerin suppository prn, enema prn. Ileostomy training Severe postop abdominal pain as well as generalized OA pain: reassess pain every shift and prior toand after each therapy session, give prn Tylenol and Percocet, modalities prn in therapy, Lidoderm,K-pad prn. Skin healing ileostomy and breakdown risk and yeast rash low back: continue pressure relief program. Daily skin exams and reports from nursing. Miconazole powder Severe fatigue due to nutritional and hydration deficiency: Add vitamin B12 vitamin D and CoQ10 continue to monitor I&O s, calorie counts prn, dietary consult prn. Add healthy HS snack. Acute episodic insomnia with situational adjustment disorder: consider prn low dose Ambien, monitorfor day time sedation. HS Tuck In Falls risk elevated: patient to use call light to get nursing assistance to get up, bed and chair alarm. Elevated DVT risk: progressive activities in PT, continue prophylaxis RENETTA hose, elevation and Lovenox. Complex discharge planning: Prepare for discharge 04/24/2024 home with his for home health careas well as IV antibiotic therapy. Patient is status weekly team meeting Monday to re-assess progress towards goals, discuss and address social, psychological and medical comorbidities and to address difficulties they may be having progressing in therapy. Patient and family education is in progress.The patient is to follow-up with their family physician after discharge. Complex Active General Medical Issues that complicate care Assess & Plan: COPD-Smoker, Tobacco use-stop smoking,Acute rehab for endurance traing with Pulse Ox to monitoring oxygen saturation and heart rate with O2 titration to lowest effective dose. Pulse oximeter checks to shift and at HS to dose and titrate oxygen and aerosol treatments monitor for nocturnal hypoxemia,monitor vital signs, oxygen prn. Focus on energy conservation. Peripheral vascular disease -Acute rehab to monitor heart rate and rhythm with the option of telemetry and the effects of chronotropic medication with respect to increasing physical activity and exercise in PT, OT, ADLs with medication titration to lowest effective dosing. Continue blood signs every shift focusing on heart rate, rhythm and blood pressure checks with orthostatic checks- monitoring the effect of exercise, therapy and posture. Consult hospitalist for backup medical and adjust/add medications. Monitor heart rate and blood pressure as well as medications effects on vital signs before during and after therapy with especial focus on preventing orthostasis and falls risk. GERD (gastroesophageal reflux disease)-Elevate head of bed after meals, monitor stools for blood, lowest effective dose of PPI, consider Tums. Atherosclerosis of quinault arteries of extremities with intermittent claudication, left leg Status post splenectomy, Post-op pain Shock status post bleed after colectomy requiring splenectomy Multiple joint pain dt OA and Rheumatoid arthritis, Sciatica, Lumbar degenerative disc disease Ileostomy in place -consult enterostomal nurse Focus on coordinating dc plans with patient family and care givers and order necessary equipment. Bárbara Dong D.O., PM&R Attending [phone] [facility] * Noe Zambrano, PRODUCT TEST ENGINEER - 04/22/2024 2:35 PM EST Physical Therapy Rehab Treatment Note Facility/Department: [facility] [place] [facility] Room: R253/R253-01 NAME: Jasmeet Perdue : 1960 (63 y.o.) CODE STATUS: Full Code Date of Service: 04/22/2024 Restrictions: Restrictions/Precautions: Fall Risk SUBJECTIVE: Subjective: I am disappointed theydidn't take this catheter out Pain Pain: 0/10 pre and post pain OBJECTIVE: Transfers Surface: From chair with arms;To chair with arms Additional Factors: Verbal cues;Hand placement cues;Increased time to complete Device: (no AD) Sit to Stand Assistance Level: Modified independent Skilled Clinical Factors: good safety, increased time to stabilize in standing Stand to Sit Assistance Level: Modified independent Skilled Clinical Factors: good safety and hand placement Ambulation Surface: Level surface;Uneven surface Device: (no AD) Distance: long distances to and from room to therapy gym, multiple long distances throughout therapy gym Activity: Within Unit Additional Factors: Verbal cues;Hand placement cues;Increased time to complete Assistance Level: Supervision Gait Deviations: Path deviations Skilled Clinical Factors: pt with good tolerance to increased gait distance, completes at steady but quick pacing throughout. no significant safety concerns, no LOB noted with good awareness of catheter line throughout. good tolerance to completing ramp, no safety concerns. PT Exercises Dynamic Standing Balance Exercises: standing ball toss without UE support- one LOB requiring ModA to correct, standing no UE support bag toss with reaching across midline- good tolerance and no LOB noted. Activity Tolerance Activity Tolerance: Patient tolerated treatment well ASSESSMENT/PROGRESS TOWARDS GOALS: Assessment Assessment: Pt with good tolerance to session this date, at supervision level for all mobility. Completed DGI with score of 23/24 this session. Pt very pleasant and motivated, very recepetive to education and cues for improving technique with tasks. Activity Tolerance: Patient tolerated treatment well Goals: [facility] Goals [facility] Goal 1: indep bed mobility [facility] Goal 2: indep sit to stand and bed transfers [facility] Goal 3: indep gait with or without device community distances- including ramp [facility] Goal 4: pt will demonstrate 3 steps with 1 rail mod indep [facility] Goal 5: pt will demonstrate DGI >/= 22/24 for decreased risk for falls Patient Goals Patient Goals : return to work without issues PLAN OF CARE/Safety: Safety Devices Type of Devices: All fall risk precautions in place Therapy Time: Individual Time In 1400 Time Out 1430 Minutes 30 Minutes: 30 Transfer/Bed mobility trainin Gait trainin Neuro re education: Therapeutic ex: 15 Noe Zambrano, ENE, 04/22/24 at 2:35 PM * Shanel Espinoza MD - 04/22/2024 1:00 PM EST Images from the original note were not included. Hospitalist Progress Note PCP: Sherie Ramon APRN - CNP Date of Admission: 04/20/2024 Chief Complaint: weakness Subjective: patient in chair Medications: Reviewed Infusion Medications dextrose sodium chloride Scheduled Medications Vitamin D 2,000 Units Oral Dinner cyanocobalamin 1,000 mcg IntraMUSCular Weekly coenzyme Q10 100 mg Oral Daily lidocaine 3 patch TransDERmal Daily oxymetazoline 2 spray Each Nostril BID miconazole Topical BID piperacillin-tazobactam 3,375 mg IntraVENous Q6H enoxaparin 40 mg SubCUTAneous Daily buPROPion 150 mg Oral BID nicotine 1 patch TransDERmal Daily tamsulosin 0.4 mg Oral Daily nystatin 5 mL Oral 4x Daily lactobacillus 1 capsule Oral BID rOPINIRole 1 mg Oral Nightly clopidogrel 75 mg Oral Daily gabapentin 600 mg Oral TID metoprolol succinate 25 mg Oral Daily pantoprazole 40 mg Oral Daily PRN Meds: acetaminophen, bisacodyl, sodium phosphate, Benzocaine-Menthol, ondansetron OR ondansetron, glucose, dextrose bolus OR dextrose bolus, glucagon (rDNA), dextrose, promethazine, naloxone 0.4 mg in 10 mL sodium chloride syringe, sodium chloride, oxyCODONE-acetaminophen OR oxyCODONE- acetaminophen, ipratropium 0.5 mg-albuterol 2.5 mg, sodium chloride flush, calcium carbonate, sodium chloride, fluticasone Intake/Output Summary (Last 24 hours) at 04/22/2024 1301 Last data filed at 04/22/2024 0938 Gross per 24 hour Intake 1047 ml Output 3500 ml Net -2453 ml Exam: BP 100/68 Pulse 68 Temp 98 F (36.7 C) (Oral) Resp 18 SpO2 93% General appearance: No apparent distress, appears stated age and cooperative. HEENT: Pupils equal, round, and reactive to light. Conjunctivae/corneas clear. Neck: Supple, with full range of motion. No jugular venous distention. Trachea midline. Respiratory: Normal respiratory effort. Clear to auscultation, bilaterally without Rales/Wheezes/Rhonchi. Cardiovascular: Regular rate and rhythm with normal S1/S2 without murmurs, rubs or gallops. Abdomen: colostomy in place Soft, non-tender, non-distended with normal bowel sounds. Musculoskeletal: No clubbing, cyanosis or edema bilaterally. Full range of motion without deformity. Skin: Skin color, texture, turgor normal. No rashes or lesions. Neurologic: Neurovascularly intact without any focal sensory/motor deficits. Cranial nerves: II-XIIintact, grossly non-focal. Psychiatric: Alert and oriented, thought content appropriate, normal insight Capillary Refill: Brisk,< 3 seconds Peripheral Pulses: +2 palpable, equal bilaterally Labs: Recent Labs 04/20/24 0519 04/21/24 0436 04/22/24 0526 WBC 12.3* 13.5* 16.0* HGB 8.5* 8.3* 9.0* HCT 26.5* 25.2* 27.1* PLT 666* 717* 836* Recent Labs 04/20/24 0519 04/21/24 0436 04/22/24 0526 NA 140 141 140 K 3.5 3.8 3.8 CL 102 104 101 CO2 31 30 30 BUN 12 11 11 CREATININE 0.77 0.83 1.11 CALCIUM 8.2* 8.2* 8.7 PHOS 3.1 3.5 -- No results for input(s): AST , ALT , BILIDIR , BILITOT , ALKPHOS in the last 72 hours. No results for input(s): INR in the last 72 hours. No results for input(s): CKTOTAL , TROPONINI in the last 72 hours. Urinalysis: Lab Results Component Value Date/Time NITRU NEGATIVE 01/12/2021 10:59 AM WBCUA 0 TO 2 01/12/2021 10:59 AM BACTERIA NOT REPORTED 01/12/2021 10:59 AM RBCUA 0 TO 2 01/12/2021 10:59 AM GLUCOSEU NEGATIVE 01/12/2021 10:59 AM Radiology: No orders to display Assessment/Plan: Active Hospital Problems Diagnosis Date Noted Smoker [F17.200] 12/28/2021 Priority: Medium Peripheral vascular disease (HCC) [I73.9] 12/28/2021 Priority: Medium Post-op pain [G89.18] 04/22/[address] ([facility]) [Z93.2] 04/22/2024 Impaired mobility & ADLs dt RA flare sp debility iliostomy [Z74.09, Z78.9] 04/16/2024 Rheumatoid arthritis (HCC) [M06.9] 04/16/2024 Multiple joint pain [M25.50] 04/16/2024 Shock [R57.9] 04/15/2024 Urinary retention [R33.9] 04/15/2024 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] 04/12/2024 Sciatica [M54.30] 03/16/2022 Atherosclerosis of quinault arteries of extremities with intermittent claudication, left leg ([facility]) [I70.212] 03/16/2021 Tobacco use [Z72.0] 01/13/2021 Lumbar degenerative disc disease [M51.369] GERD (gastroesophageal reflux disease) [K21.9] 09/29/2014 DVT Prophylaxis: lovenox Diet: ADULT DIET; Regular; Low Fiber ADULT ORAL NUTRITION SUPPLEMENT; Breakfast; Standard High Calorie/High Protein Oral Supplement ADULT ORAL NUTRITION SUPPLEMENT; Lunch, Dinner; Frozen Oral Supplement Code Status: Full Code PT/OT Eval Status: done Dispo - Diverticulitis/peritonitis- IV atbs x 2 more weeks per ID recommendation- post PICC placement Smoking- advised stop, pt accepted nicotinic patch BPH-post fraire cath placement, continue flomax, urology on case for further recommendations HTN/tachycardia- on B blockers Postoperative anemia- resolved, follow up with CBC SANDEEP due to above- resolved Oral candidiasis- on PO nystatin, follow up clinically Medically stable for acute rehab admission at [facility] TTS: 45 minutes where I focused more than 75% of my attention on rendering care, and planning treatment course for this patient, in addition to talking to RN team, mid levels, consulting with other physicians and following up on labs and imaging. * Jessica Arango OTR/L - 04/22/2024 12:37 PM EST OCCUPATIONAL THERAPY INPATIENT REHAB TREATMENT NOTE [facility] NAME: Jasmeet Perdue : 1960 (63 y.o.) CODE STATUS: Full Code Room: [facility]/[place] [address] Date of Service: 04/22/2024 Referring Physician: Dr Dong Rehab Diagnosis: Imp mob and ADLs D/T debility secondary to abdominal surgery Hospital course: Comments: 63 y.o. male patient with PMHx of diverticulitis of large intestine with suspicion for fistula and admitted 04/10 for sigmoid resection with ileostomy performed by Dr. Hall. Post-op recovery c/b hemorraghic shock requiring second trip back to OR 04/12 for ex-lap, washout and splenectomy. Medically complex with SANDEEP and urinary retention requiring fraire catheter. Restrictions:Fall Patient's date of confirmed: Yes SAFETY: Safety Devices Safety Devices in place: Yes Type of devices: All fall risk precautions in place;Left in chair SUBJECTIVE:Pt pleasant and cooperative. I think that they are taking this out today. (Catheter) Pain at start of treatment: No Pain at end of treatment: No Location: N/A Description: N/A Nursing notified: No Nurse: N/A Intervention: Repositioned COGNITION: Patient's cognition will improve or maintain baseline to safely perform ADLs: OBJECTIVE: Grooming/Oral Hygiene Skilled Clinical Factors: Standing at sink Upper Extremity Bathing Assistance Level: Supervision Lower Extremity Bathing Assistance Level: Supervision Upper Extremity Dressing Assistance Level: Set-up Lower Extremity Dressing Assistance Level: Set-up Putting On/Taking Off Footwear Assistance Level: Set-up Toileting Assistance Level: Set-up (Pt completed ostomy care) Tub/Shower Transfers Type: Shower Assistance Level: Supervision Pt completed trimming of garrison with electric razor standing at sink. Education: Equipment recommendations: ASSESSMENT:Pt making gains to increase independence with ADL self care and functional mobility PLAN OF CARE: Strengthening, Patient/Caregiver education & training, Equipment evaluation, education, & procurement, Self-Care / ADL, Endurance training Patient goals : To be able to walk and learn how to put these bags on and go home Time Frame for [facility] Goals : Within 1 week patient to demonstrate progress in the following areas in order to meet alf goals in as stated in the initial evaluation [facility] Goal 1: improve balance [facility] Goal 2: increase endurance [facility] Goal 3: improve self care status Therapy Time: Individual Group Co-Treat Time In 0830 Time Out 0930 Minutes 60 ADL/IADL trainin minutes Electronically signed by: SYBIL Riley/Heavenly, 04/22/2024, 12:37 PM * Noe Zambrano PTA - 04/22/2024 11:28 AM EST Physical Therapy Rehab Treatment Note Facility/Department: [facility] Room: [place] [address] NAME: Jasmeet Perdue : 1960 (63 y.o.) CODE STATUS: Full Code Date of Service: 04/22/2024 Restrictions: Restrictions/Precautions: Fall Risk SUBJECTIVE: Subjective: I got my first shower today Pain Pain: 0/10 pre and post pain OBJECTIVE: Bed Mobility Overall Assistance Level: Modified Independent Additional Factors: Verbal cues;Head of bed flat;Without handrails Roll Left Assistance Level: Modified independent Roll Right Assistance Level: Modified independent Sit to Supine Assistance Level: Modified independent Supine to Sit Assistance Level: Modified independent Scooting Assistance Level: Modified independent Transfers Surface: From chair with arms;To chair with arms;From bed;To bed Additional Factors: Verbal cues;Hand placement cues;Increased time to complete Device: (no AD) Sit to Stand Assistance Level: Modified independent Skilled Clinical Factors: good safety, increased time to stabilize in standing Stand to Sit Assistance Level: Modified independent Skilled Clinical Factors: good safety and hand placement Car Transfer Assistance Level: Supervision Skilled Clinical Factors: steps into car, but demos good safety Ambulation Surface: Level surface;Uneven surface;Ramp Device: (no AD) Distance: 200', 50', long distances to and from room to therapy gym Activity: Within Unit Additional Factors: Verbal cues;Hand placement cues;Increased time to complete Assistance Level: Supervision Gait Deviations: Path deviations Skilled Clinical Factors: pt with good tolerance to increased gait distance, completes at steady but quick pacing throughout. no significant safety concerns, no LOB noted with good awareness of catheter line throughout. good tolerance to completing ramp, no safety concerns. Stairs Stair Height: 6'' Device: One handrail Number of Stairs: 8 Additional Factors: Verbal cues;Reciprocal going up;Reciprocal going down;Increased time to complete Assistance Level: Supervision Skilled Clinical Factors: good ability to complete with one HR to simulate home environment , completes with quick steady pace throughout, no safety concerns. Neuromuscular Education Neuromuscular Education: Yes NDT Treatment: Gait Neuromuscular Comments: DGI completed with score of 23/24 this session. PT Exercises PROM Exercises: seated HS/gastoc stretch x3 30 sec hold BLE Activity Tolerance Activity Tolerance: Patient tolerated treatment well ASSESSMENT/PROGRESS TOWARDS GOALS: Assessment Assessment: Pt with good tolerance to session this date, at supervision level for all mobility. Completed DGI with score of 23/24 this session. Pt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 04/10/2024. CAT scan has been concerning for diverticulitis and had a previous abscess. Postop he is been having urinary retention Fraire catheter is placed and he was started on Flomax. I am concerned about patient s medical complexities and barriers to advancing in rehab goals including controlling his pain and infection. I discussed current functional, rehabilitation, medical status with other rehabilitation providers including nursing and case management. According to recent nursing note, Dr Henriquez updated regarding critical lab platelet of 970. . I have transitioned him to independent around working on balance prior level of functioning and ADLs as we have focus on consistency of function and work with his insurance company to find a home health care company that we will take his insurance for the IV antibiotics that he needs. The actual antibiotics are covered but his Medicare replacement is not excepted by any of the home health care companies in this area. Note patient is very angry and irrational very rude to him myself and staff. Emotional support given and we tried to explain in the it is the problem is not with us it is that [facility] will take on his insurance. Will continue to see if infectious disease cansomeway modify her as antibiotic so that he can do it and at home without the home health care nurse. DISCHARGE SUMMARY Hospital Course: The patient was admitted to the Rehabilitation Unit to address ADL and mobility deficits-as detailed above and below. The patient was enrolled in acute PT, OT program. Weekly team meetings were held to assess functional progress toward their goals-and modify the therapy program. The patient's medical, emotional, psychosocial and functional issues were addressed. The patient progressed in the rehab program and is now ready for discharge home. Refer to functional assessments summary report for detailed functional status. Refer to the medical problem list below to see the medical issues addressed. The social and DC complexities are detailed in the DC planning section below. Greater than 3 5 minutes was spent on coordinating patients discharge including follow-up care, medications and patient/family education. Extended time needed because of the potential use of controlled medications are high risk medications and a high risk population individual. Patient and family were instructed to use lowest effective dose of these medications and slowly titrate off over the next 2 to 4 weeks. They are not to combine opiates with sedatives. I reviewed her [place] prescription monitoring service data sheets in hopes of eliminating polypharmacy and weaning to the lowest effective dose of pain medications and eliminating the concomitant use of benzodiazepines. I see no medications of concern. I see no habits of combining sedatives and narcotics. Controlled Substance Monitoring: Acute and Chronic Pain Monitoring: RX Monitoring Acute Pain Prescriptions Periodic Controlled Substance Monitoring 04/24/2024 2:41 PM Severe pain not adequately treated with lower dose.;Prescription exceeds daily limit for a specific reason. See comments or note.;Not required given exclusionary diagnoses... Possible medication side effects, risk of tolerance/dependence & alternative treatments discussed.;No signs of potential drug abuse or diversion identified.;Assessed functional status (ability to engage in work or other purposeful activities, the pain intensity and its interference with activities of daily living, quality of family life and social activities, and the physical activity);Obtaining appropriate analgesic effect of treatment. ROS x10: The patient also complains of severely impaired mobility and activities of daily living. Otherwise no new problems with vision, hearing, nose, mouth, throat, dermal, cardiovascular, GI, , pulmonary, musculoskeletal, psychiatric or neurological. See Rehab H&P on Rehab chart dated . Vital signs: BP 107/78 Pulse 89 Temp 98.1 F (36.7 C) (Oral) Resp 17 Ht 1.778 m (5' 10 ) Wt 78.4 kg (172 lb 12.8 oz) SpO2 95% BMI 24.79 kg/m I/O: PO/Intake: fair PO intake, no problems observed or reported. Bowel/Bladder: continent, ileostomy and Fraire catheter for retention General: Patient is well developed, adequately nourished, non-obese and well kempt. HEENT: PERRLA, hearing intact to loud voice, external inspection of ear and nose benign. Inspection of lips, tongue and gums Musculoskeletal: No significant change in strength or tone. All joints stable. Inspection and palpation of digits and nails show no clubbing, cyanosis or inflammatory conditions. Neuro/Psychiatric: Affect: flat. Alert and oriented to person, place and situation. No significant change in deep tendon reflexes or Sensation Lungs: Diminished, CTA-B. Respiration effort is normal at rest. Heart: S1 = S2, RRR. No loud murmurs. Abdomen: Soft, ileostomy-tender, no enlargement of liver or spleen. Extremities: Trace lower extremity edema, no tenderness. Skin: Intact to general survey, no visualized or palpated problems healing abdominal incision and-ileostomy. Yeast rash low back Rehabilitation: Physical therapy: FIMS: Bed Mobility: Transfers: Sit to Stand: Supervision Stand to Sit: Supervision, Ambulation Surface: Level tile Device: No Device Assistance: Supervision Quality of Gait: mild unsteadiness with fatigue; mild antalgic pattern Gait Deviations: Slow Josefina Distance: 150 ft Comments: SOB with this distance; SPO2 WNL on RA, Stairs # Steps : 4 Stairs Height: 6 Rails: Right ascending Device: No Device Assistance: Stand by assistance Comment: pt demonstrates reciprocally FIMS: , , Assessment: Pt is 63 y.o. male with continued fatigue and continued balance deficits and requires supervision for safety with mobility at this time. Continued PT is required to progress toward indep for return home and return to work with safety. 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 Patient is in the hospital following extensive abdominal surgery and will benefit from OT to address endurance and self care in order to get patient home at independent level Speech therapy: FIMS: Lab/X-ray studies reviewed, analyzed and discussed with patient and staff: Previous extensive, complex labs, notes and diagnostics reviewed and analyzed. ALLERGIES: Allergies as of 04/20/2024 (No Known Allergies) (please also verify by checking MAR) I reviewed her [place] prescription monitoring service data sheets in hopes of eliminating polypharmacy and weaning to the lowest effective dose of pain medications and eliminating the concomitant use of benzodiazepines. I see no medications of concern. I see no habits of combining sedatives and narcotics. Complex Physical Medicine & Rehab Issues Assess & Plan: Severe abnormality of gait and mobility and impaired self-care and ADL's secondary to progressive weakness dt flare of rheumatoid arthritis with debility status post a splenectomy and ileostomy. Functional and medical status reassessed regarding patient s ability to participate in therapies and patient found to be able to participate in acute intensive comprehensive inpatient rehabilitation program including PT/OT to improve balance, ambulation, ADL s, and to improve the P/AROM. Therapeutic modifications regarding activities in therapies, place, amount of time per day and intensity of therapymade daily. In bed therapies or bedside therapies prn. Bowel ileostomy, and Bladder dysfunction monitoring neurogenic bladder: frequent toileting, ambulate to bathroom with assistance, check post void residuals. Check for C.difficile x1 if >2 loose stools in 24 hours, continue bowel & bladder program. Monitor bowel and bladder function. Lactinex2 PO every AC. MOM prn, Brown Bomb prn, Glycerin suppository prn, enema prn. Ileostomy training Severe postop abdominal pain as well as generalized OA pain: reassess pain every shift and prior toand after each therapy session, give prn Tylenol and Percocet, modalities prn in therapy, Lidoderm,K-pad prn. Skin healing ileostomy and breakdown risk and yeast rash low back: continue pressure relief program. Daily skin exams and reports from nursing. Miconazole powder to SHEILA area and groin Severe fatigue due to nutritional and hydration deficiency: Add vitamin B12 vitamin D and CoQ10 continue to monitor I&O s, calorie counts prn, dietary consult prn. healthy HS snack. Acute episodic insomnia with situational adjustment disorder: consider prn low dose Ambien, monitorfor day time sedation. HS Tuck In Falls risk elevated: patient to use call light to get nursing assistance to get up, bed and chair alarm. Elevated DVT risk: progressive activities in PT, continue prophylaxis RENETTA hose, elevation and Lovenox. Complex discharge planning: Prepare for discharge 04/24/2024 home with his for home health careas well as IV antibiotic therapy. He was recent change to IV Invanz through the infusion center. Patient is status weekly team meeting Monday to re-assess progress towards goals, discuss and address social, psychological and medical comorbidities and to address difficulties they may be having progressing in therapy. Patient and family education is in progress. The patient is to follow-up with their family physician after discharge. Complex Active General Medical Issues that complicate care Assess & Plan: COPD-Smoker, Tobacco use-stop smoking,Acute rehab for endurance traing with Pulse Ox to monitoring oxygen saturation and heart rate with O2 titration to lowest effective dose. Pulse oximeter checks to shift and at HS to dose and titrate oxygen and aerosol treatments monitor for nocturnal hypoxemia,monitor vital signs, oxygen prn. Focus on energy conservation. Peripheral vascular disease -Acute rehab to monitor heart rate and rhythm with the option of telemetry and the effects of chronotropic medication with respect to increasing physical activity and exercise in PT, OT, ADLs with medication titration to lowest effective dosing. Continue blood signs every shift focusing on heart rate, rhythm and blood pressure checks with orthostatic checks- monitoring the effect of exercise, therapy and posture. Consult hospitalist for backup medical and adjust/add medications. Monitor heart rate and blood pressure as well as medications effects on vital signs before during and after therapy with especial focus on preventing orthostasis and falls risk. GERD (gastroesophageal reflux disease)-Elevate head of bed after meals, monitor stools for blood, lowest effective dose of PPI, consider Tums. Atherosclerosis of quinault arteries of extremities with intermittent claudication, left leg Status post splenectomy, Post-op pain-lowest effective dose of pain medication Shock status post bleed after colectomy requiring splenectomy-he transitioned to IV Invanz via the infusion center at discharge. Infectious disease was on the case. Multiple joint pain dt OA and Rheumatoid arthritis, Sciatica, Lumbar degenerative disc disease Ileostomy in place -consult enterostomal nurse Await medical stability, IV antibiotics and home health care discharge his insurance is not excepted by any of the local home health care companies Bárbara Dong D.O., PM&R Attending [phone] [facility] documented in this encounterBon [facility] History of Present illness Narrative* Praneeth Ac MD - 04/20/2024 11:48 AM EST Images from the original note were not included. [facility] Hospitalist Progress Note Admitting Date and Time: 04/10/2024 7:36 AM Admit Dx: Diverticulitis large intestine [K57.32] Diverticulitis [K57.92] Subjective: Patient is being followed for Diverticulitis large intestine [K57.32] Diverticulitis [K57.92] Pt feels well. Patient report abdominal pain when he leans forward. He denies fever, chest pain, nausea, vomiting, leg pain or leg swelling Per RN: no acute events overnight ROS: denies fever, chills, cp, sob, n/v, GARCIA unless stated above. lactated ringers 1,000 mL IntraVENous Once rOPINIRole 1 mg Oral Nightly nystatin 5 mL Oral 4x Daily lactobacillus 1 capsule Oral BID tamsulosin 0.4 mg Oral Daily pantoprazole (PROTONIX) 40 mg in sodium chloride (PF) 0.9 % 10 mL injection 40 mg IntraVENous Daily piperacillin-tazobactam 3,375 mg IntraVENous Q8H sodium chloride flush 5-40 mL IntraVENous 2 times per day [Held by provider] enoxaparin 40 mg SubCUTAneous Daily buPROPion 150 mg Oral BID metoprolol succinate 25 mg Oral Daily nicotine 1 patch TransDERmal Daily fluticasone, 1 spray, Daily PRN sodium chloride, 1 spray, PRN calcium carbonate, 500 mg, TID PRN potassium chloride, 40 mEq, PRN Or potassium alternative oral replacement, 40 mEq, PRN Or potassium chloride, 10 mEq, PRN sodium chloride flush, 5-40 mL, PRN ipratropium 0.5 mg-albuterol 2.5 mg, 1 Dose, Q4H PRN sodium phosphate 15 mmol in sodium chloride 0.9 % 250 mL IVPB, 15 mmol, PRN oxyCODONE-acetaminophen, 1 tablet, Q4H PRN Or oxyCODONE-acetaminophen, 2 tablet, Q4H PRN promethazine, 6.25 mg, Q6H PRN naloxone 0.4 mg in 10 mL sodium chloride syringe, , PRN sodium chloride flush, 5-40 mL, PRN sodium chloride, , PRN sodium chloride flush, 5-40 mL, PRN ondansetron, 4 mg, Q8H PRN Or ondansetron, 4 mg, Q6H PRN glucose, 4 tablet, PRN dextrose bolus, 125 mL, PRN Or dextrose bolus, 250 mL, PRN glucagon (rDNA), 1 mg, PRN dextrose, , Continuous PRN HYDROmorphone, 0.5 mg, Q2H PRN Or HYDROmorphone, 1 mg, Q2H PRN Objective: BP 129/73 Pulse 74 Temp 98.2 F (36.8 C) (Oral) Resp 16 Ht 1.778 m (5' 10 ) Wt 78.3 kg (172 lb 9.9 oz) SpO2 99% BMI 24.77 kg/m General Appearance: alert and oriented to person, place and time and in no acute distress Skin: warm and dry Head: normocephalic and atraumatic Eyes: pupils equal, round, and reactive to light, extraocular eye movements intact, conjunctivae normal Neck: neck supple and non tender without mass Pulmonary/Chest: clear to auscultation bilaterally- no wheezes, rales or rhonchi, normal air movement, no respiratory distress Cardiovascular: normal rate, normal S1 and S2 and no carotid bruits Abdomen: soft, non-tender, colostomy bag in place Extremities: no cyanosis, no clubbing and no edema Neurologic: no cranial nerve deficit and speech normal Recent Labs 04/18/2445604/19/24 0601 04/20/24 0519 NA 137 143 140 K 3.2* 3.6 3.5 CL 94* 103 102 CO2 31 34* 31 BUN 10 14 12 CREATININE 0.88 0.82 0.77 GLUCOSE 124* 131* 120* CALCIUM 8.5 8.2* 8.2* Recent Labs 04/18/2445604/19/24 0600 04/20/24 0519 WBC 14.2* 10.4 12.3* RBC 2.98* 2.85* 2.84* HGB 9.4* 8.8* 8.5* HCT 27.5* 26.7* 26.5* MCV 92.3* 93.7* 93.3* MCH 31.5* 30.9 29.9 MCHC 34.2 33.0 32.1* RDW 15.5* 15.4* 15.2* PLT 570* 671* 666* Radiology: Assessment: Principal Problem: Diverticulitis large intestine Active Problems: Colonic diverticular abscess Diverticulitis Hemorrhagic shock (HCC) Status post splenectomy Shock Acute retention of urine Impaired mobility and activities of daily living Resolved Problems: * No resolved hospital problems. * Acute medical issues 1:Hemorrhagic shock 2. Diverticulitis complicated with colon perforation status post sigmoid resection and diverting loop ileostomy 3. Acute hypoxic respiratory failure 4. Acute kidney injury 5. Elevated liver enzymes Plan: 1. Continue Zosyn. plan is for 4 weeks. ID following 2. Patient is on 2 L when of oxygen as tolerated. Incentive spirometry placed 3. Status post 1 L of fluid today in the setting of thrombocytosis likely due to hypovolemia Chronic medical issues: 1. hypertension: Continue Toprol 2. Peripheral artery disease status post revascularization in 2021 3. Abdominal aortic repair in 2019 Diet: PN-Adult 3 IN 1 Central Line (Standard) ADULT DIET; Clear Liquid Code Status: Full Code NOTE: This report was transcribed using voice recognition software. Every effort was made to ensureaccuracy; however, inadvertent computerized timber poisoner errors may be present. * Beltran Hall MD - 04/20/2024 11:09 AM EST Patient did well overnight. Tolerated liquid diet. Ileostomy functioning. Nasal cannula has been removed. Plan for transfer to inpatient rehab. Low fiber diet ordered. * Veronica Mariscal MD - 04/20/2024 10:01 AM EST Infectious Diseases Inpatient Progress Note HISTORY OF PRESENT ILLNESS: Follow up shock, acute kidney injury, acute diverticulitis of large intestine status post sigmoid colectomy and diverting loop ileostomy done on April 10, postop hemorrhagic shock on April 11 requiring reexploration and splenectomy on IV Zosyn, well tolerated. Continues to improve Decreased generalized weakness Occasional cough, chronic smoker's cough No confusion or disorientation Positive dry mouth and lips Remains on liquid diet. No nausea or vomiting Decreasing abdominal distention. Decreased abdominal pain No nausea vomiting Positive generalized weakness Positive Fraire Urology following for acute urinary retention Current Medications: lactated ringers 1,000 mL IntraVENous Once rOPINIRole 1 mg Oral Nightly nystatin 5 mL Oral 4x Daily lactobacillus 1 capsule Oral BID tamsulosin 0.4 mg Oral Daily pantoprazole (PROTONIX) 40 mg in sodium chloride (PF) 0.9 % 10 mL injection 40 mg IntraVENous Daily piperacillin-tazobactam 3,375 mg IntraVENous Q8H sodium chloride flush 5-40 mL IntraVENous 2 times per day [Held by provider] enoxaparin 40 mg SubCUTAneous Daily buPROPion 150 mg Oral BID metoprolol succinate 25 mg Oral Daily nicotine 1 patch TransDERmal Daily Allergies: Patient has no known allergies. Review of Systems Rest of system review is negative other than HPI Physical Exam Vitals: 04/19/24 2154 04/19/24 2210 04/20/24 0225 04/20/24 0717 BP: 132/68 129/73 Pulse: 74 74 Resp: 18 16 16 Temp: 98.6 F (37 C) 98.2 F (36.8 C) TempSrc: Oral SpO2: 96% 98% 99% Weight: Height: General Appearance: alert and oriented to person, place and time, well-developed and well-nourished, in no acute distress NG connected to suction Skin: warm and dry, no rash. Head: normocephalic and atraumatic Eyes: anicteric sclerae Follows commands appropriately ENT: dry mucous membranes. + oral thrush Lungs: normal respiratory effort, no wheezes Heart normal S1-S2 no murmur Abdomen: Intact dressing, decreased abdominal distention, intact ileostomy Left upper extremity with resolved swelling No erythema, no tenderness Right upper extremity PICC line Positive Fraire with small amount of sediment DATA: Lab Results Component Value Date WBC 12.3 (H) 04/20/2024 HGB 8.5 (L) 04/20/2024 HCT 26.5 (L) 04/20/2024 MCV 93.3 (H) 04/20/2024 PLT 666 (H) 04/20/2024 Lab Results Component Value Date CREATININE 0.77 04/20/2024 BUN 12 04/20/2024 NA 140 04/20/2024 K 3.5 04/20/2024 CL 102 04/20/2024 CO2 31 04/20/2024 Hepatic Function Panel: Lab Results Component Value Date/Time ALKPHOS 88 04/15/2024 04:27 AM ALT 67 04/15/2024 04:27 AM AST 21 04/15/2024 04:27 AM BILITOT 0.5 04/15/2024 04:27 AM BILIDIR <0.2 04/15/2024 04:27 AM IBILI see below 04/15/2024 04:[address] of abdomen pelvis done today with positive small bowel ileus. Consulted fluid collection in posterior deep pelvis, probably postsurgical Pathology was negative for malignancy as discussed with the patient IMPRESSION: Acute perforated diverticulitis of colon with abscess status post sigmoid resection with primary anastomosis and diverting loop ileostomy, resolving leukocytosis, decreasing CRP Oral candidiasis Acute urinary retention requiring Fraire catheter placement Postop hypovolemic/hemorrhagic shock requiring reexploration and splenectomy, resolved Anemia secondary to blood loss and acute kidney injury, improving PLAN: Continue IV Zosyn for 2 weeks Continue nystatin swish and swallow for 1 week Follow-up with surgery for diet advancement and weaning of TPN Follow-up with urology for Fraire catheter management Agree with inpatient rehab postdischarge follow-up CBC BMP Continue postsplenectomy vaccination protocol postdischarge. Patient will need Prevnar postdischarge Tetanus toxoid, Hib, Flu, Menig B, Colby ACY, Pneumococcal conjugate 13 given Discussed with patient and Veronica Mariscal MD * Bárbara Dong DO - 04/20/2024 9:24 AM EST Subjective: The patient complains of severe acute abdominal pain ,chronic progressive fatigue and generalized weakness partially relieved by rest, PT, OT and meds titration and exacerbated by exertion and recent illness with surgery. 63 y.o. male admitted to [facility] on 04/10/2024. Patient is recovering from Procedure Summary Date: 04/10/24 Room / Location: [facility] [place] OR / [facility] Anesthesia Start: 952 Anesthesia Stop: 1258 Procedure: Sigmoid colectomy with loop ileostomy (Abdomen/Perineum) Diagnosis: Diverticulitis large intestine (Diverticulitis large intestine [K57.32]) Surgeons: Beltran Hall MD Responsible Provider: Iftikhar Moore MD Anesthesia Type: general, regional ASA Status: 3 Postop he had arrhythmias and low blood pressure. He was found to be in shock and was taken back tothe OR after it was found or suspected that he had a bleeding spleen. Procedure Summary Date: 04/11/24 Room / Location: [facility] [place] OR / [facility] Anesthesia Start: 800 Anesthesia Stop: 100 Procedure: SPLEENECTOMY, EXPLORATORY LAPAROTOMY room icu:1 Diagnosis: Bleeding (Bleeding [R58]) Surgeons: Beltran Hall MD Responsible Provider: Iftikhar Vang MD Anesthesia Type: general ASA Status: 4 - Emergent He had had a colonoscopy the week prior to admission for obstipation and abdominal pain-the endoscopy could not be performed because the camera could not be advanced. He was originally admitted under the care of of colorectal surgery for exploratory lap on 04/10/2024. CAT scan has been concerning for diverticulitis and had a previous abscess. Postop he is been having urinary retention Fraire catheter is placed and he was started on Flomax. He required reinsertion of the Fraire catheter on 04/17 due to urinary retention. He required NG tube placement for abdominal decompression due to ileus on 04/17. I am concerned about patient s medical complexities including: Principal Problem: Diverticulitis large intestine Active Problems: Colonic diverticular abscess Diverticulitis Hemorrhagic shock (HCC) Status post splenectomy Shock Acute retention of urine Impaired mobility and activities of daily living Resolved Problems: * No resolved hospital problems. * . Controlled Substance Monitoring: Acute and Chronic Pain Monitoring: RX Monitoring Acute Pain Prescriptions Periodic Controlled Substance Monitoring 04/16/2024 12:30 PM Prescription exceeds daily limit for a specific reason. See comments or note.;Severe pain not adequately treated with lower dose.;Not required given exclusionary diagnoses... Possible medication side effects, risk of tolerance/dependence & alternative treatments discussed.;No signs of potential drug abuse or diversion identified.;Assessed functional status (ability to engage in work or other purposeful activities, the pain intensity and its interference with activities of daily living, quality of family life and social activities, and the physical activity);Obtaining appropriate analgesic effect of treatment. Reviewed recent nursing note and discussed current status and planned care with acute care providers, JADEN was notified by [facility] that patients insurance has given [facility]. Patients insurance authorization is approved through 04/24/24. I have notified patient and patients at bedside. Anticipated [facility] to [facility] is 04/20/24, per Dr. Hall . His NG tube is out and he is now starting a clear liquid diet. He is to maintain the Fraire catheter. He continues on piperacillin. ROS x10: The patient also complains of severely impaired mobility and activities of daily living. Otherwise no new problems with vision, hearing, nose, mouth, throat, dermal, cardiovascular, GI, , pulmonary, musculoskeletal, psychiatric or neurological. Vital signs: BP 129/73 Pulse 74 Temp 98.2 F (36.8 C) (Oral) Resp 16 Ht 1.778 m (5' 10 ) Wt 78.3 kg (172 lb 9.9 oz) SpO2 99% BMI 24.77 kg/m I/O: PO/Intake: Clear liquid diet continue to monitor closely for dehydration Bowel/Bladder: Urinary retention, ileostomy Fraire catheter in General: Patient is well developed, adequately nourished,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 original note were not included. GENERAL SURGERY PROGRESS NOTE Pt Name: Jasmeet Perdue Date: 04/13/2024 Subjective SADIA overnight. Afebrile, VSS, satting well. Pt doing well, reports pain is controlled. No nausea/ vomiting. No Flatus, No BM. Vitals BP (!) 147/72 Pulse 86 Temp 99.1 F (37.3 C) (Bladder) Resp 16 Ht 1.778 m (5' 10 ) Wt 78.3kg (172 lb 9.6 oz) SpO2 97% BMI 24.77 kg/m Physical Exam GEN: A&Ox3, NAD, cooperative PULM: no increased work of breathing, satting well CV: regular rate ABD: Soft, NTND, incision clean, dry and intact EXT: Warm, dry, no lower extremity edema Intake/ Output Intake/Output Summary (Last 24 hours) at 04/13/2024 1201 Last data filed at 04/13/2024 1117 Gross per 24 hour Intake 4221.29 ml Output 3100 ml Net 1121.29 ml Date 04/13/24 0000 - 04/13/24 2359 Shift 4135-3567 1128-5696 6432-5138 24 Hour Total INTAKE I.V.(mL/kg) 426.7(5.5) 426.7(5.5) IV Piggyback(mL/kg) 45.9(0.6) 45.9(0.6) Shift Total(mL/kg) 472.6(6) 472.6(6) OUTPUT Urine(mL/kg/hr) 650(1) 650 1300 Drains(mL/kg) 60(0.8) 95(1.2) 155(2) Stool(mL/kg) 40(0.5) 40(0.5) Shift Total(mL/kg) 750(9.6) 745(9.5) 1495(19.1) Weight (kg) 78.3 78.3 78.3 78.3 Labs Recent Labs 04/11/24 0225 04/11/24 0226 04/11/24 0226 04/11/24 0424 04/11/24 0624 04/11/24 1152 04/11/24 1153 04/11/24 1202 04/11/24 1841 04/11/24 2016 04/12/24 0607 04/12/24 0609 04/12/24 0614 04/12/24 0851 04/12/24 1959 04/13/24 0151 04/13/24 0522 04/13/24 05 WBC -- 14.8* < > 14.0* < > -- 13.2* -- -- -- -- 10.7 -- -- -- -- -- 12.1* HGB -- 9.4* < > 9.2* < > -- 9.2* < > -- < > -- 7.6* 7.1* < > 8.3* 8.1* -- 8.0* HCT -- 28.4* < > 28.6* < > -- 25.9* -- -- < > -- 22.1* -- < > 24.5* 23.0* -- 23.2* PLT -- 242 < > 182 < > -- 116* -- -- -- -- 156 -- -- -- -- -- 180 NA -- 136 < > 139 -- -- -- -- 141 -- 144 -- -- -- -- -- 142 -- K -- 4.6 < > 5.2* -- -- -- -- 4.0 -- 4.1 -- -- -- -- -- 3.7 -- CL -- 105 < > 111* -- -- -- -- 110* -- 112* -- -- -- -- -- 109* -- CO2 -- 21 < > 18* -- -- -- -- 25 -- 24 -- -- -- -- -- 27 -- BUN -- 17 < > 18 -- -- -- -- 27* -- 30* -- -- -- -- -- 17 -- CREATININE -- 1.50* < > 1.59* < > -- -- < > 1.66* -- 1.78* -- 1.8* -- -- -- 1.10 -- MG -- 1.6* -- -- -- -- -- -- -- -- -- -- -- -- -- -- 1.6* -- PHOS -- -- -- -- -- -- -- -- -- -- -- -- -- -- -- -- 1.1* -- CALCIUM -- 7.6* < > 6.8* -- -- -- -- 7.2* -- 7.3* -- -- -- -- -- 7.6* -- INR -- -- -- 1.4 -- 1.4 -- -- -- -- -- -- -- -- -- -- -- -- AST -- 13 < > 16 -- -- -- -- -- -- 216* -- -- -- -- -- 79* -- ALT -- 10 < > 11 -- -- -- -- -- -- 232* -- -- -- -- -- 160* -- BILITOT -- 0.9* < > 0.9* -- -- -- -- -- -- 0.6 -- -- -- -- -- 0.7 -- BILIDIR -- -- -- 0.3 -- -- -- -- -- -- -- -- -- -- -- -- 0.5* -- LDH -- 156 -- -- -- -- -- -- -- -- -- -- -- -- -- -- -- -- LACTA 3.4* -- -- 3.9* -- -- -- -- -- -- -- -- -- -- -- -- -- -- < > = values in this interval not displayed. Assessment/ Plan Jasmeet Perdue is a 63 y.o. male now POD 3 s/p sigmoid resection and diverting ileostomy and POD 2 s/p exploratory laparotomy and splenectomy.Recovering well. Pain control: Pain controlled with po and IV pain medications Prn antiemetic Wean supplemental O2 as able for SpO2 > 92%, encourage IS x10/hour while awake Diet: CLD , IVF, replete lytes prn Strict I&Os, Encourage ambulation, OOB x3 DVT ppx: SCDs, HSQ Ollie Higgins MD General surgeon 04/13/2024 * Juliana Parra MD - 04/13/2024 7:51 AM EST Pulmonary & Critical Care Medicine ICU Progress Note Chief complaint : Hemorrhagic shock Subjunctive/24 hour events : Patient seen and examined during multidisciplinary rounds with RN, charge nurse, RT, pharmacy, dietitian, and social service. Doing good, no issues overnight, no active bleed, urine output 2100 cc, COLTON drain 200 cc, small bowel movement, +9.5 L, no nausea no vomiting, not on pressors, he is on 3 L O2 saturation 94% Pain is controlled New information updated in the note today, rest of the examination did not change compared to yesterday. Social History Tobacco Use Smoking status: Every Day Current packs/day: 1.00 Average packs/day: 1 pack/day for 54.9 years (54.9 ttl pk-yrs) Types: Cigarettes Start date: 05/28/1969 Passive exposure: Past Smokeless tobacco: Never Substance Use Topics Alcohol use: No Problem Relation Age of Onset Heart Disease Mother Cancer Mother Primary site unknown to patient Cancer Father Primary site unknown to patient No Known Problems Sister No Known Problems Brother No Known Problems Son No Known Problems Daughter Recent Labs 04/11/24 1637 04/12/24 0614 PHART 7.344* 7.333* [id number] 43 47* PO2ART 104 70* MV Settings: Vent Mode: (S) CPAP Resp Rate (Set): 28 bpm/Vt (Set, mL): 440 mL/ /FiO2 : 40 % IV: lactated ringers 75 mL/hr at 04/13/24 0437 sodium chloride sodium chloride sodium chloride dextrose Vitals: BP (!) 140/61 Pulse 90 Temp 99.3 F (37.4 C) Resp 12 Ht 1.778 m (5' 10 ) Wt 78.3 kg (172 lb 9.6 oz) SpO2 94% BMI 24.77 kg/m Tmax: Intake/Output Summary (Last 24 hours) at 04/13/2024 0751 Last data filed at 04/13/2024 0437 Gross per 24 hour Intake 4221.29 ml Output 2355 ml Net 1866.29 ml EXAM: General: alert, cooperative, no distress Head: normocephalic, atraumatic Eyes:No gross abnormalities. ENT: MMM no lesions Neck: supple and no masses Chest : clear to auscultation bilaterally- no wheezes, rales or rhonchi, normal air movement, no respiratory distress Heart:: Heart sounds are normal. Regular rate and rhythm without murmur, gallop or rub. ABD: symmetric, soft, mildly diffusely tender, no guarding or rebound, surgical dressing, and ileostomy in the right lower quadrant. Musculoskeletal : no cyanosis, no clubbing, and no edema Neuro: Grossly normal Skin: No rashes or nodules noted. Lymph node: no cervical nodes Urology: Yes Fraire Psychiatric: appropriate Medications: Scheduled Meds: magnesium sulfate 2,000 mg IntraVENous Once ipratropium 0.5 mg-albuterol 2.5 mg 1 Dose Inhalation Q4H WA RT pantoprazole (PROTONIX) 40 mg in sodium chloride (PF) 0.9 % 10 mL injection 40 mg IntraVENous Daily sodium chloride flush 5-40 mL IntraVENous 2 times per day piperacillin-tazobactam 3,375 mg IntraVENous Q8H sodium chloride flush 5-40 mL IntraVENous 2 times per day [Held by provider] enoxaparin 40 mg SubCUTAneous Daily buPROPion 150 mg Oral BID metoprolol succinate 25 mg Oral Daily nicotine 1 patch TransDERmal Daily PRN Meds: sodium phosphate 15 mmol in sodium chloride 0.9 % 250 mL IVPB, oxyCODONE- acetaminophen OR oxyCODONE-acetaminophen, sodium chloride, promethazine, naloxone 0.4 mg in 10 mL sodium chloride syringe,sodium chloride flush, sodium chloride, sodium chloride flush, sodium chloride, ondansetron OR o ndansetron, glucose, dextrose bolus OR dextrose bolus, glucagon (rDNA), dextrose, HYDROmorphoneOR HYDROmorphone Results: reviewed by me CBC: Recent Labs 04/11/24 1153 04/11/24 1202 04/12/24 0609 04/12/24 0614 04/12/24 1959 04/13/24 0151 04/13/24 0524 WBC 13.2* -- 10.7 -- -- -- 12.1* HGB 9.2* < > 7.6* < > 8.3* 8.1* 8.0* HCT 25.9* < > 22.1* < > 24.5* 23.0* 23.2* MCV 88.4 -- 89.1 -- -- -- 90.3 PLT 116* -- 156 -- -- -- 180 < > = values in this interval not displayed. BMP: Recent Labs 04/11/24 1841 04/12/24 0607 04/12/24 0614 04/13/24 0522 NA 141 144 -- 142 K 4.0 4.1 -- 3.7 CL 110* 112* -- 109* CO2 25 24 -- 27 PHOS -- -- -- 1.1* BUN 27* 30* -- 17 CREATININE 1.66* 1.78* 1.8* 1.10 LIVER PROFILE: Recent Labs 04/11/24 0424 04/12/24 0607 04/13/24 0522 AST 16 216* 79* ALT 11 232* 160* BILIDIR 0.3 -- 0.5* BILITOT 0.9* 0.6 0.7 ALKPHOS 62 52 58 PT/INR: Recent Labs 04/11/24 0424 04/11/24 1152 PROTIME 17.0* 17.2* INR 1.4 1.4 APTT: Recent Labs 04/11/24 0424 04/11/24 1152 APTT 29.1 30.1 UA:No results for input(s): NITRITE , COLORU , PHUR , LABCAST , WBCUA , RBCUA , MUCUS , TRICHOMONAS , YEAST , BACTERIA , CLARITYU , SPECGRAV , LEUKOCYTESUR , UROBILINOGEN , BILIRUBINUR , BLOODU , GLUCOSEU , AMORPHOUS in the last 72 hours. Invalid input(s): KETONESU Cultures: None Films: CXR films reviewed by me and it showed chest x-ray is clear Assessment: This is a critically ill patient at risk of deterioration / , needing close ICU monitoring and intervention due to below noted problems Hemorrhagic/hypovolemia shock, shock physiology resolved Acute blood loss anemia secondary to intra-abdominal bleed, status postsurgical repair, resolved S/p splenectomy Acute diverticulitis status post sigmoid resection with primary anastomosis and diverting loop ileostomy SANDEEP, slightly worse today Mild hyperkalemia, resolved Hyperchloremia due to volume resuscitation Hyperglycemia, improved Left shoulder pain likely irritation from previous bleed History of AAA Recommendation Monitor H&H daily, currently no active bleed As needed Percocet ABG as needed Again discussed with RN , DC central line and Fraire catheter Lasix 20 mg IV x 1 Continue Zosyn DC IV fluid Monitor blood sugar target 1 40-1 80 Watch renal function and urine output Up in chair, physical therapy Electronically signed by Juliana Parra MD, [facility] ,on 04/13/2024 at 7:51 AM * Maulik Khan RN - 04/13/2024 6:36 AM EST Shift Summary: Patient rested well overnight, pain controlled with PRN percocet and required one time dose of prn dilaudid for breakthrough pain as well as zofran for mild nausea but no vomiting. Patient given pillow for splinting cough when he needs. Patient with productive cough but able to clear secretions when using splinting pillow. Patient reminded to use incentive spirometer when awake and to utilize theacapella device. Good urine output overnight, afebrile, hgb remained in the 8's overnight. Magensium and phosphorous levels low this AM received [facility] * Chio Bills RN - 04/12/2024 5:43 PM EST 1743: Arterial line removed without incident, dressing applied, patient tolerated well. * Beltran Hall MD - 04/12/2024 4:05 PM EST Postop day #2 from a sigmoid resection and diverting ileostomy, postop day 1 from exploratory laparotomy and splenectomy for acute hemorrhagic shock. Patient extubated yesterday. Currently comfortable resting. Ileostomy beginning to function. Currently on clear liquids. His hemoglobin trended down to 7. 1 additional unit of packed red blood cells given. Urine output increasing. Acute kidney injury present. I expected to resolve over the next 48 hours.Will keep Fraire catheter in place for urine output. Expect transfer to floor probably tomorrow where we will begin physical therapy for continued recovery. Dr. Higgins to cover in my absence this weekend. * Robi Casillas - 04/12/2024 3:36 PM EST Spiritual Health History and Assessment/Progress Note [facility] Cynthia (P) Initial Encounter, , , Name: Jasmeet Perdue Age: 63 y.o. 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 Patient and were eager and open to chaplains presence, guided questions, emotional, spiritual support. Patient expressed concern and appreciation for his well-being. Patients expressed thanks to José Miguel for keeping his life and granting him life and wellness of health. Patient is recovering from two surgical procedures, patient shows signs of discomfort of pain and consistent cough. Patient affect, pleasant, receptive, alert, aware, and attentive. Encounter Overview/Reason: (P) Initial Encounter Service Provided For: (P) Patient and family together Yariel, Belief, Meaning: Patient is connected with a yariel tradition or spiritual practice Family/Friends are connected with a yariel tradition or spiritual practice Importance and Influence: Patient has spiritual/personal beliefs that influence decisions regarding their health Family/Friends have spiritual/personal beliefs that influence decisions regarding the patient's health Community: Patient feels well-supported. Support system includes: Spouse/Partner Family/Friends feel well-supported. Support system includes: Yariel Community Assessment and Plan of Care: Patient Interventions include: Facilitated expression of thoughts and feelings, Explored spiritual coping/struggle/distress, and Engaged in theological reflection Family/Friends Interventions include: Facilitated expression of thoughts and feelings and Engaged in theological reflection Patient Plan of Care: No spiritual needs identified for follow-up Family/Friends Plan of Care: No spiritual needs identified for follow-up * Chio Bills RN - 04/12/2024 2:51 PM EST Lab called for hgb7.0, hct 20.2. Dr. Hall made aware via [employer]. * Jessica Perdue MD - 04/12/2024 1:50 PM EST Infectious Disease Patient Name: Jasmeet Perdue Date: 04/12/2024 Date of : 1960 Diverticulitis Patient had colonoscopy performed the week prior to admission develop persistent abdominal pain Patient had stricture at time of colonoscopy CT scan admission showed evidence of diverticulitis Patient had persistent symptoms and was admitted for surgical treatment of acute and chronic diverticulitis with exploratory lap sigmoid resection on 04/10/2024 sigmoid colectomy with loop ileostomy Transferred to intensive care unit because of hypotension blood loss Return to surgery 04/11/2024 because of hemorrhagic shock voiced resection underwent laparotomy andsplenectomy for splenic hemorrhage No purulence or spillage of bowel was noted in either surgery Review of Systems Constitutional: Negative for fatigue and fever. Respiratory: Positive for cough and shortness of breath. Cardiovascular: Negative. Gastrointestinal: Positive for abdominal distention and abdominal pain. Genitourinary: Negative. Physical Exam Constitutional: Appearance: He is not ill-appearing. Eyes: Extraocular Movements: Extraocular movements intact. Pupils: Pupils are equal, round, and reactive to light. Neck: Vascular: No carotid bruit. Cardiovascular: Heart sounds: Normal heart sounds. No murmur heard. Pulmonary: Effort: Pulmonary effort is normal. No respiratory distress. Breath sounds: Normal breath sounds. No stridor. No wheezing, rhonchi or rales. Chest: Chest wall: No tenderness. Abdominal: General: Abdomen is flat. Palpations: Abdomen is soft. Tenderness: There is abdominal tenderness. Musculoskeletal: General: No swelling, tenderness, deformity or signs of injury. Cervical back: Normal range of motion and neck supple. No rigidity or tenderness. Right lower leg: No edema. Left lower leg: No edema. Lymphadenopathy: Cervical: No cervical adenopathy. Skin: General: Skin is warm. Coloration: Skin is not jaundiced. Findings: No bruising, erythema or lesion. Neurological: General: No focal deficit present. Blood pressure (!) 148/63, pulse (!) 107, temperature 100.2 F (37.9 C), resp. rate 14, height 1.778m (5' 10 ), weight 78.3 kg (172 lb 9.6 oz), SpO2 97%. . Lab Results Component Value Date WBC 10.7 04/12/2024 HGB 7.7 (L) 04/12/2024 HCT 22.0 (L) 04/12/2024 MCV 89.1 04/12/2024 PLT 156 04/12/2024 Lab Results Component Value Date/Time NA 144 04/12/2024 06:07 AM K 4.1 04/12/2024 06:07 AM K 4.6 04/11/2024 02:26 AM CL 112 04/12/2024 06:07 AM CO2 24 04/12/2024 06:07 AM BUN 30 04/12/2024 06:07 AM CREATININE 1.8 04/12/2024 06:14 AM CREATININE 1.78 04/12/2024 06:07 AM GLUCOSE 102 04/12/2024 06:07 AM CALCIUM 7.3 04/12/2024 06:07 AM LABGLOM 41 04/12/2024 06:14 AM ASSESSMENT: Patient Active Problem List Diagnosis Chest pain GERD (gastroesophageal reflux disease) Ureteral calculus Acute diverticulitis Diverticulitis of colon with perforation AAA (abdominal aortic aneurysm) (HCC) Tobacco use Chronic midline low back pain with bilateral sciatica Lumbar degenerative disc disease Hypokalemia Labile blood pressure Edema of left lower leg due to peripheral venous insufficiency Atherosclerosis of quinault arteries of extremities with intermittent claudication, left leg (HCC) Iliac artery stenosis, left (HCC) 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) AAA (abdominal aortic aneurysm) without rupture (HCC) Smoker Peripheral vascular disease (HCC) History of colonic polyps Diverticulitis large intestine Diverticulitis Hemorrhagic shock (HCC) PLAN: Diverticulitis Patient's residually taken to surgery for the diagnosis of acute and chronic diverticulitis Maintain patient on antibiotics with Zosyn Antibiotics will be changed to oral amoxicillin with a plan for 1 year of oral antibiotics postsplenectomy Postsplenectomy vaccinations Pneumococcal vaccination with Prevnar x 1 Haemophilus B vaccination x 1 Neisseria meningitidis vaccination for ACWY and for B These vaccines need to be repeated in 2 weeks Influenza vaccine * Marichuy Lopez [facility] - 04/12/2024 10:55 AM EST Images from the original note were not included. PHARMACY NOTE: Interdisciplinary Rounds Completed ICU Day #2 Pt diagnosis: hemorrhagic shock Follow up/Changes: PRN Percocet orders placed Toprol XL and Wellbutrin unheld Levophed and fentanyl drips discontinued Home meds in need of review/reorder as appropriate: -- Renal: Recent Labs 04/11/24 1841 04/12/24 0607 04/12/24 0614 CREATININE 1.66* 1.78* 1.8* Estimated Creatinine Clearance: 43 mL/min (A) (based on SCr of 1.8 mg/dL (H)). Additional Information/Core Measures: DVT Prophylaxis/Anticoagulant Therapy: Lovenox 40 mg (on hold) Recent Labs 04/11/24 0624 04/11/24 0739 04/11/24 1153 04/11/24 1202 04/12/24 0609 04/12/24 0614 04/12/24 0851 HGB 8.5* < > 9.2* < > 7.6* < > 7.7* PLT 125* -- 116* -- 156 -- -- < > = values in this interval not displayed. Recent Labs 04/11/24 0424 04/11/24 1152 INR 1.4 1.4 Stress Ulcer Prophylaxis: [] Pantoprazole [] Famotidine Steroid: [] Solu-medrol [] Solu-cortef [] Prednisone [] Decadron Insulin Coverage (goal: 140-180): Recent Labs 04/11/24 0424 04/11/24 1841 04/12/24 0607 GLUCOSE 185* 102* 102* Lantus: -- SSI: -- Humalog: -- units required in the past 24 hours Pressors: [] Levophed [] Epinephrine [] Vasopressin [] Rod-Synephrine Sedation: [] Precedex [] Fentanyl [] Propofol Fluids: LR Drips: -- Antimicrobial Therapy: Recent Labs 04/11/24 0624 04/11/24 1153 04/12/24 0609 WBC 10.8 13.2* 10.7 No results for input(s): PROCAL in the last 72 hours. ID on consult: No Antimicrobial agents: Zosyn 3375 mg Q8H D2 Cultures: -- Bowel Regimen: [] Miralax [] Colace [] Lactulose Core measures assessed/met Marichuy Lopez PharmD, BCPS 04/12/2024 10:43 AM * Juliana Parra MD - 04/12/2024 9:57 AM EST Pulmonary & Critical Care Medicine ICU Progress Note Chief complaint : Hemorrhagic shock Subjunctive/24 hour events : Patient seen and examined during multidisciplinary rounds with RN, charge nurse, RT, pharmacy, dietitian, and social service. Doing better, he underwent emergent session yesterday, recovered in ICU and extubated later in the afternoon, currently off pressors, he is on 4 L O2 saturation 93%, no fever, he is tachycardic, no nausea or vomiting, started clear liquid diet today, urine output 485 cc, COLTON drain 100 cc overnight total 1000 cc since yesterday. He is +7.7 L, no bowel movement. He complains of abdominal pain, no chest pain, he has pain in the left shoulder blade, New information updated in the note today, rest of the examination did not change compared to yesterday. Social History Tobacco Use Smoking status: Every Day Current packs/day: 1.00 Average packs/day: 1 pack/day for 54.9 years (54.9 ttl pk-yrs) Types: Cigarettes Start date: 05/28/1969 Passive exposure: Past Smokeless tobacco: Never Substance Use Topics Alcohol use: No Problem Relation Age of Onset Heart Disease Mother Cancer Mother Primary site unknown to patient Cancer Father Primary site unknown to patient No Known Problems Sister No Known Problems Brother No Known Problems Son No Known Problems Daughter Recent Labs 04/11/24 1637 04/12/24 0614 PHART 7.344* 7.333* SFE4HAW 43 47* PO2ART 104 70* MV Settings: Vent Mode: (S) CPAP Resp Rate (Set): 28 bpm/Vt (Set, mL): 440 mL/ /FiO2 : 40 % IV: sodium chloride sodium chloride sodium chloride 125 mL/hr at 04/12/24 0255 dextrose Vitals: BP (!) 148/63 Pulse (!) 123 Temp 99.7 F (37.6 C) Resp 18 Ht 1.778 m (5' 10 ) Wt 78.3 kg (172 lb 9.6 oz) SpO2 93% BMI 24.77 kg/m Tmax: Intake/Output Summary (Last 24 hours) at 04/12/2024 1000 Last data filed at 04/11/2024 1922 Gross per 24 hour Intake 3594.95 ml Output 915 ml Net 2679.95 ml EXAM: General: alert, cooperative, no distress Head: normocephalic, atraumatic Eyes:No gross abnormalities. ENT: MMM no lesions Neck: supple and no masses Chest : clear to auscultation bilaterally- no wheezes, rales or rhonchi, normal air movement, no respiratory distress Heart:: Heart sounds are normal. Regular rate and rhythm without murmur, gallop or rub. ABD: symmetric, soft, mildly diffusely tender, no guarding or rebound, surgical dressing, and ileostomy in the right lower quadrant. Musculoskeletal : no cyanosis, no clubbing, and no edema Neuro: Grossly normal Skin: No rashes or nodules noted. Lymph node: no cervical nodes Urology: Yes Fraire Psychiatric: appropriate Medications: Scheduled Meds: ipratropium 0.5 mg-albuterol 2.5 mg 1 Dose Inhalation Q4H WA RT sodium chloride flush 5-40 mL IntraVENous 2 times per day piperacillin-tazobactam 3,375 mg IntraVENous Q8H sodium chloride flush 5-40 mL IntraVENous 2 times per day [Held by provider] enoxaparin 40 mg SubCUTAneous Daily buPROPion 150 mg Oral BID metoprolol succinate 25 mg Oral Daily nicotine 1 patch TransDERmal Daily PRN Meds: oxyCODONE-acetaminophen OR oxyCODONE-acetaminophen, promethazine, naloxone 0.4 mg in 10 mL sodium chloride syringe, sodium chloride flush, sodium chloride, ondansetron, diphenhydrAMINE, sodium chloride flush, sodium chloride, ondansetron OR ondansetron, glucose, dextrose bolus OR dextrose bolus, glucagon (rDNA), dextrose, HYDROmorphone OR HYDROmorphone Results: reviewed by me CBC: Recent Labs 04/11/2462304/11/24 0739 04/11/24 1153 04/11/24 1202 04/12/24 0210 04/12/24 0609 04/12/24 0614 04/12/24 0851 WBC 10.8 -- 13.2* -- -- 10.7 -- -- HGB 8.5* < > 9.2* < > 7.8* 7.6* 7.1* 7.7* HCT 25.7* -- 25.9* < > 22.0* 22.1* -- 22.0* MCV 90.8 -- 88.4 -- -- 89.1 -- -- PLT 125* -- 116* -- -- 156 -- -- < > = values in this interval not displayed. BMP: Recent Labs 04/11/2442304/11/24 0739 04/11/24 1841 04/12/24 0607 04/12/24 0614 NA 139 -- 141 144 -- K 5.2* -- 4.0 4.1 -- CL 111* -- 110* 112* -- CO2 18* -- 25 24 -- BUN 18 -- 27* 30* -- CREATININE 1.59* < > 1.66* 1.78* 1.8* < > = values in this interval not displayed. LIVER PROFILE: Recent Labs 04/11/24 0226 04/11/2442304/12/24 06 AST 13 16 216* ALT 10 11 232* BILIDIR -- 0.3 -- BILITOT 0.9* 0.9* 0.6 ALKPHOS 73 62 52 PT/INR: Recent Labs 04/11/2442324 1152 PROTIME 17.0* 17.2* INR 1.4 1.4 APTT: Recent Labs 04/11/24 0424 04/11/24 1152 APTT 29.1 30.1 UA:No results for input(s): NITRITE , COLORU , PHUR , LABCAST , WBCUA , RBCUA , MUCUS , TRICHOMONAS , YEAST , BACTERIA , CLARITYU , SPECGRAV , LEUKOCYTESUR , UROBILINOGEN , BILIRUBINUR , BLOODU , GLUCOSEU , AMORPHOUS in the last 72 hours. Invalid input(s): KETONESU Cultures: None Films: CXR films reviewed by me and it showed chest x-ray is clear Assessment: This is a critically ill patient at risk of deterioration / , needing close ICU monitoring and intervention due to below noted problems Hemorrhagic/hypovolemia shock, shock physiology resolved Acute blood loss anemia secondary to intra-abdominal bleed, status postsurgical repair, resolved S/p splenectomy Acute diverticulitis status post sigmoid resection with primary anastomosis and diverting loop ileostomy SANDEEP, slightly worse today Mild hyperkalemia, resolved Hyperchloremia due to volume resuscitation Hyperglycemia, improved Left shoulder pain likely irritation from previous bleed History of AAA Recommendation DC Levophed Continue as needed Dilaudid Add as needed Percocet ABG as needed DC central line and A-line DC Fraire Resume metoprolol Will consider Lasix when kidney function improved Continue Zosyn Change IV fluid to LR, monitor chloride Monitor blood sugar target 1 40-1 80 Watch renal function and urine output Appreciate ID Monitor in ICU Due to the immediate potential for life-threatening deterioration due to hemorrhagic shock I spent 35 minutes providing critical care. This time is excluding time spent performing procedures. Electronically signed by Juliana Parra MD, [facility] ,on 04/12/2024 at 10:00 AM * Chris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 [facility], 176, cm, 09/07/23 15:47:00 EDT, Height/Length Dosing, 82, kg, 09/07/23 15:47:00 EDT, Weight Dosing buPROPion 150 mg ER Tab: 150 mg = 1 tab(s), Oral, BID, # 60 tab(s), Refills(s) 3, Pharmacy: [facility], 176, cm, 09/07/23 15:47:00 EDT, Height/Length Dosing, 82, kg, 09/07/23 15:47:00EDT, Weight Dosing cilostazol 100 mg Tab: See Instructions, Take one tablet twice a day, # 90 EA, Refills(s) 3, Pharmacy: [facility], 176, cm, 09/07/23 15:47:00 EDT, Height/Length Dosing, 82, kg, 09/07/23 15:47:00 EDT, Weight Dosing gabapentin 600 mg Tab: 600 mg = 1 tab(s), Oral, TID, # 270 tab(s), Refills(s) 0, Pharmacy: [facility], 176, cm, 09/07/23 15:47:00 EDT, Height/Length Dosing, 82, kg, 09/07/23 15:47:00 EDT, Weight Dosing ropinirole 1 mg Tab: 1 mg = 1 tab(s), Oral, Daily, 1 to 3 hours before bedtime, # 90 tab(s), Refills(s) 1, Pharmacy: [facility], 176, cm, 09/07/23 15:47:00 EDT, Height/Length Dosing, 82, kg, 09/07/23 15:47:00 EDT, Weight Dosing triamcinolone Top 0.1% Oint: 1 ted, Topical, TID Dry skin, 30 gm, Refill(s) 0, [facility], 176, cm, 09/07/23 15:47:00 EDT, Height/Length Dosing, 82, kg, 09/07/23 15:47:00 EDT, Weight Dosing Documented Medications Documented Metoprolol succinate 25 mg ER Tablet: Refills(s) 0 Plavix 75 mg Tab: 75 mg = 1 tab(s), Oral, Daily, Refills(s) 0 Problem list: All Problems Sciatica / SNOMED CT 75510861 / Confirmed GERD (gastroesophageal reflux disease) / SNOMED CT 356654753 / Confirmed Pain in joint, multiple sites / SNOMED CT 558711233 / Confirmed Kidney stone on left side / SNOMED CT 722708879 / Confirmed AAA (abdominal aortic aneurysm) / SNOMED CT 057325243 / Confirmed PAD (peripheral artery disease) / SNOMED CT 9554959455 / Confirmed Hypocalcemia / SNOMED CT 1649752 / Confirmed Anticoagulated / SNOMED CT 762449497 / Confirmed Lumbar radiculopathy / SNOMED CT 359559356 / Confirmed Cigarette nicotine dependence / SNOMED CT 23901868 / Confirmed Prostate cancer screening / SNOMED CT 210644324 / Confirmed Combined hyperlipidemia / SNOMED CT 152197177 / Confirmed History of diverticular abscess of colon / SNOMED CT 1556436755 / Confirmed Benign essential HTN / SNOMED CT 4009767 / Confirmed Actinic keratoses / SNOMED CT 4874376286 / Confirmed Restless leg syndrome / SNOMED CT 39127638 / Confirmed Embolism of iliac artery / SNOMED CT 346145469 / Confirmed Intermittent claudication of left lower extremity due to atherosclerosis / SNOMED CT 9227544888 / Confirmed Overweight / SNOMED CT 011967196 / Confirmed BMI 26.0-26.9,adult / SNOMED CT 2133609347 / Confirmed Lipid screening / SNOMED CT 011406380 / Confirmed Diabetes mellitus screening / SNOMED CT 724339872 / Confirmed Medication management / SNOMED CT 200467507 / Confirmed Resolved: Smoker / SNOMED CT 857138084 Added secondary to documentation in Social History. Canceled: Smoker / SNOMED CT 9708128477 Added secondary to documentation in Social History. Canceled: Left hip pain / SNOMED CT 47023942 Canceled: Lumbar back pain / SNOMED CT 923341943 Canceled: Dyspepsia / SNOMED CT 212740950 (more content not included)...[facility]:Result Comment: Electronically Signed By: Jillian Aranda PA-C\.br\Date and Time Signed: 01/01/24 12:59 [id number] NoteOperative Report Diagnosis: m47.816, lumbar spondyloarthropathy Procedure: [...] The patient agrees to continue currently prescribed/recommended therapies.[facility]: Result Comment: Electronically Signed By: Cresencio Andrade DO\.br\Date and Time Signed: 12/27/23 13:20 [id number] Evaluation + Plan noteExtracted from: Title:chronic painAuthor:Cresencio Andrade DODate:09/07/23 Patient is presenting as a f ollow-up [...] and treatment, all questions were answered and patientagrees to adhere to the plan above. Risk [...] Future Appointments Appointment Date:02/02/2024 08:00:00 AM Scheduled Provider:Tristen AQUINO, CRICKET, Sherie Dash Location:[facility] Appointment Type: Open Future Scheduled Tests Laboratory* CBC w/ Auto Diff 02/07/23 * Comprehensive Metabolic Panel 02/07/23 * Lipid Panel 02/07/23 [facility]04-05-2024 Evaluation + Plan noteExtracted from: Title:Bilateral lumbar medial branch block for L4/5 and L5/S1 facets #1Author: Cresencio Andrade DODate:12/27/23 Diagnosis: m47.816, lumbar s pondyloarthropathy Procedure: Bilateral [...] Date:01/01/2024 10:30:00 AM Scheduled Provider:Jillian Aranda PA-C Location:[facility] Appointment Type:Pain Management - Follow Up (FT) Appointment Date:02/02/2024 08:00:00 AM Scheduled Provider:Tristen AQUINO, APPLICATION ADMINISTRATOR-Sherie JONES Location:[facility] Appointment Type: Open Future Scheduled Tests Laboratory* CBC w/ Auto Diff 02/07/23 * Comprehensive Metabolic Panel 02/07/23 * Lipid Panel 02/07/23 [facility] 03-13-2024 Evaluation + Plan noteExtracted from:Title: L5/S1 interlaminar epidural steroid injectionAuthor:Cresencio Andrade DODate: 08/02/23 Diagnosis: M54.16, lumbar ra diculopathy Procedure: L5/S1 [...] the epidural space was confirmed using the zzhd-qm-suawjbdgga technique and 2 cc of air. Injection [...] Date:09/07/2023 03:30:00 PM Scheduled Provider:Cresencio Andrade DO Location:[facility] Appointment Type:Pain Management - Follow Up (FT) Appointment Date:02/02/2024 08:00:00 AM Scheduled Provider:Tristen AQUINO, APPLICATION ADMINISTRATOR-ROBERT, Sherie Dash Location:[facility] Appointment Type: Open Future Scheduled Tests Laboratory* CBC w/ Auto Diff 02/07/23 * Comprehensive Metabolic Panel 02/07/23 * Lipid Panel 02/07/23 [facility]03-10-2024 Hospital Discharge instructions Patient Education 07/30/2023 16:46:01 [...] Follow these instructions at home: Medicines Take zqwi-heo-jzhqyga and prescription medicines only as told by [...] more information Society for Vascular Surgery: vascular.org [place] [employer]: heart.org National Heart, Lung, and Blood [place]: nhlbi.nih.gov Contact a health care provider if: [...] provider. Document Revised: 11/09/2020 Document Reviewed: 11/09/2020 Epoch Patient Education 2022 [employer] 07/30/2023 16:45:57 Intermittent Claudication Intermittent Claudication Intermittent [...] high blood pressure, or high cholesterol. Take thve-ofk-mznjviu and prescription medicines only as told by [...] your local emergency services (911 in the ). Do not drive yourself to the hospital. [...] provider. Document Revised: 11/09/2020 Document Reviewed: 11/09/2020 Epoch Patient Education 2022 [employer]. 07/30/2023 16:45:52 Health Risks of Smoking Health [...] Department of Health and Human Services: www.smokefree.gov [place] [employer]: www.freedomfromsmoking.org [place] [employer]: www.heart.org Where to find more [...] provider. Document Revised: 05/10/2022 Document Reviewed: 05/10/2022 Epoch Patient Education 2022 [employer]. 07/30/2023 16:45:51 DASH Eating Plan DASH Eating [...] Dairy Whole or 2% milk, cream, and byds-iqh-sljn. Whole or full-fat cream cheese. Whole-fat or [...] more information National Heart, Lung, and Blood [place]: www.nhlbi.nih.gov [place] [employer]: www.heart.org Academy of Nutrition and [...] provider. Document Revised: 04/10/2020 Document Reviewed: 04/10/2020 Epoch Patient Education 2022 [employer]. Follow Up Care 05/02/2023 10:10:57 With:Tristen AQUINO, APPLICATION ADMINISTRATOR-PROCUREMENT BUYER, Sherie Dash Address: [address] [place], [place] [id number] When:Within 6 Month(s) Comments:chronic care [facility] 01-26-2024 Evaluation + Plan noteExtracted from:Title: Pain Managment Follow upAuthor:Jillian Aranda PA-CDate:06/16/23 Patient: JASMEET PERDUE Age: 62 years Sex: Male : [...] wants to get the ball rolling and geton the schedule to have another injection as [...] would like to get second opinion as hewould like to get this taken care of . Health Status Allergies: Allergic Reactions (Selected) No Known Allergies No Known Medication Allergies, Allergies (2) ActiveReaction No Known AllergiesNone Documented No Known Medication AllergiesNone Documented Current medications: (Selected) Prescriptions Prescribed Protonix 40 mg Tab-DR: 40 mg = 1 tab(s), Oral, Daily, # 90 tab(s), Refills(s) 3, Pharmacy: [id number], 178, cm, 07/22/22 14:01:00 EST, Height/Length Dosing, 80.9, kg, 07/22/22 14:01:00 EST, Weight Dosing atorvastatin 20 mg Tab: 20 mg = 1 tab(s), Oral, Daily, # 90 tab(s), Refills(s) 3, Pharmacy: [facility] #[id number], 178, cm, 05/02/23 9:17:00 EST, Height/Length Dosing, 84.2, kg, 05/02/23 9:17:00 EST, Weight Dosing buPROPion 150 mg ER Tab: 150 mg = 1 tab(s), Oral, BID, # 60 tab(s), Refills(s) 3, Pharmacy: [facility] #[id number], 178, cm, 05/02/23 9:17:00 EST, Height/Length Dosing, 84.2, kg, 05/02/23 9:17:00 EST, Weight Dosing pregabalin 100 mg Cap: 100 mg = 1 cap(s), Oral, TID, take twice a day for one week. If doing ok go to TID. DC GPN, # 90 cap(s), Refills(s) 0, Pharmacy: [facility] #[id number], 178, cm, 10/14/22 8:44:00EDT, Height/Length Dosing, 73, kg, 10/14/22 8:44:00 EDT, Weight D... ropinirole 1 mg Tab: 1 mg = 1 tab(s), Oral, Daily, 1 to 3 hours before bedtime, # 90 tab(s), Refills(s) 0, Pharmacy: [facility] #[id number], 178, cm, 05/02/23 9:17:00 EST, Height/Length Dosing, 84.2, kg, 05/02/23 9:17:00 EST, Weight Dosing triamcinolone Top 0.1% Oint: 1 ted, Topical, TID Dry skin, 30 gm, Refill(s) 0, [id number], 178, cm, 07/22/22 14:01:00 EST, Height/Length Dosing, 80.9, kg, 07/22/22 14:01:00 EST, Weight Dosing Documented Medications Documented Metoprolol succinate 25 mg ER Tablet: Refills(s) 0 Plavix 75 mg Tab: 75 mg = 1 tab(s), Oral, Daily, Refills(s) 0 Tylenol: Refills(s) 0 cilostazol 100 mg Tab: TAKE 1 TABLET BY MOUTH TWICE DAILY Problem list: All Problems Sciatica / SNOMED CT 00628314 / Confirmed GERD (gastroesophageal reflux disease) / SNOMED CT 397640889 / Confirmed Pain in joint, multiple sites / SNOMED CT 076446379 / Confirmed Kidney stone on left side / SNOMED CT 862730222 / Confirmed AAA (abdominal aortic aneurysm) / SNOMED CT 811785505 / Confirmed PAD (peripheral artery disease) / SNOMED CT 1329669550 / Confirmed Hypocalcemia / SNOMED CT 5611544 / Confirmed Anticoagulated / SNOMED CT 527068342 / Confirmed Lumbar radiculopathy / SNOMED CT 564368557 / Confirmed Cigarette nicotine dependence / SNOMED CT 05365053 / Confirmed Prostate cancer screening / SNOMED CT 466717128 / Confirmed Combined hyperlipidemia / SNOMED CT 715380173 / Confirmed History of diverticular abscess of colon / SNOMED CT 7995013499 / Confirmed Benign essential HTN / SNOMED CT 7063030 / Confirmed Actinic keratoses / SNOMED CT 6350732229 / Confirmed Restless leg syndrome / SNOMED CT 73506604 / Confirmed Embolism of iliac artery / SNOMED CT 979743116 / Confirmed Intermittent claudication of left lower extremity due to atherosclerosis / SNOMED CT 3793066827 / Confirmed Resolved: Smoker / SNOMED CT 451134959 Added secondary to documentation in Social History. Canceled: Smoker / SNOMED CT 9085328808 Added secondary to documentation in Social History. Canceled: Left hip pain / SNOMED CT 30318577 Canceled: Lumbar back pain / SNOMED CT 521381382 Canceled: Dyspepsia / SNOMED CT 458253254 Canceled: Screening for lipoid disorders / SNOMED CT 207225286 Canceled: Tobacco use disorder / SNOMED CT 491158783 Canceled: Smoker / SNOMED CT 745829183 Added secondary to documentation in Social History. Canceled: Left lower quadrant pain / SNOMED CT 860915142 Canceled: Abdominal aortic aneurysm, without rupture / SNOMED CT 052547115 Canceled: Smoker / SNOMED CT 392745956 Added secondary to documentation in Social History. Canceled: Generalized abdominal pain / SNOMED CT 798292967 Canceled: Acute constipation / SNOMED CT 213281647 Canceled: BMI 23.0-23.9, adult / SNOMED CT 3544373154 Canceled: Acute diverticulitis / SNOMED CT 4751924344 Canceled: BMI 22.0-22.9, adult / SNOMED CT 3486112250 Canceled: Diverticulitis of sigmoid colon / SNOMED CT 0486716336 Canceled: Abscess of sigmoid colon / SNOMED CT 0609400615 Canceled: Smoker / SNOMED CT 628310971 Added secondary to documentation in Social History. Canceled: BMI 23.0-23.9, adult / SNOMED CT 4707169914 Canceled: Cigarette smoker / SNOMED CT 980415068 Canceled: Dry skin dermatitis / SNOMED CT 332776056 Canceled: BMI 24.0-24.9, adult / SNOMED CT 7959364737 Canceled: Laceration of left thigh / SNOMED CT 649525401 Canceled: Senile purpura / SNOMED CT 14205978 Canceled: Colon cancer screening / SNOMED CT 758219204 Canceled: Cellulitis of right hand excluding fingers and thumb / SNOMED CT 221306029 Canceled: Screening for malignant neoplasm of colon / SNOMED CT 214113803 Canceled: Sore throat / SNOMED CT 803679221 Canceled: Oral thrush / SNOMED CT 637648659 Canceled: Skin lesion of hand / SNOMED CT 8433851450 Canceled: Lipid screening / SNOMED CT 805794794 Canceled: Medication management / SNOMED CT 438025925 Canceled: Diabetes mellitus screening / SNOMED CT 115970240 Objective Vital Signs 06/16/2023 7:49 EST Peripheral Pulse Rate 66 bpm Respiratory Rate 14 br/min Systolic Blood Pressure 153 mmHg HI Diastolic Blood Pressure 83 mmHg Mean Arterial Pressure, Cuff 106 mmHg General: Alert and oriented, No acute distress. Eye: Normal conjunctiva. HENT: Normocephalic, Normal hearing. Cardiovascular: No edema. Musculoskeletal Normal range of motion. Normal strength. 5/5 lower extremity strength Integumentary: Warm, Dry, [place]. Neurologic: Alert, Oriented. Psychiatric: Cooperative, Appropriate mood [...] purposes. Procedure was discussed. Risk and benefits werediscussed. Patient is agreeable. He will follow-up 2 weeks after the injection for reevaluation. Call clinic sooner if necessary. In the meantime he will continue on gabapentin and baclofen. OARRS reviewed. Refill sent to the pharmacy. BARRETT score: 70%Addendum by Jillian Aranda PA-C on June 16, 2023 8:20 [id number] mg of GPN Future Appointments Appointment Date:08/01/2023 08:00:00 AM Scheduled Provider:Tristen AQUINO, APPLICATION ADMINISTRATOR-Sherie JONES Location:[facility] Appointment Type: Open Future Scheduled Tests Laboratory* CBC w/ Auto Diff 02/07/23 * Comprehensive Metabolic Panel 02/07/23 * Lipid Panel 02/07/23 [facility]11-17-2023 Evaluation + Plan noteExtracted from: Title:Pain Managment Follow upAuthor:Jillian Aranda PA-CDate:04/07/23 Impression and Plan Patient is a 62-year-old male with a past medical history significant for lumbar stenosis, lumbar neuritis, lumbar degenerative disease, lumbar disc bulge, and lumbar foraminal stenosis. Recent L5-K0nejcyjjm steroid injection gave him 65% relief. He states that things are better. It still is not perfect but better than before. He would like to get a second opinion from a surgeon. We will facilitate a referral. He wants to check with his insurance company to see who would be covered he will letus know. In the meantime, he is going [...] have to wait around. If he wants todo get it done again he wants to be able to do this. BARRETT score: 64% Future Appointments Appointment Date:05/09/2023 11:00:00 AM Scheduled Provider:Tristen AQUINO, APPLICATION ADMINISTRATOR-ROBERT, Sherie Dash Location:[facility] Appointment Type: Open Appointment Date:06/16/2023 07:45:00 AM Scheduled Provider:Jillian Aranda PA-C Location:[facility] Appointment Type:Pain Management - Follow Up (FT) Future Scheduled Tests Laboratory* CBC w/ Auto Diff 02/07/23 * Comprehensive Metabolic Panel 02/07/23 * Lipid Panel 02/07/23 [facility]09-22-2023 Evaluation + Plan noteExtracted from: Title:Pain Managment Follow upAuthor:Jillian Aranda PA-CDate:02/10/23 Impression and Plan Patient is a 62-year-old [...] conservative treatments. Patient states that he is significant ly debilitated because of all the pain that [...] states that he saw a previous surgeon andthey told him that he did not need surgery and in fact, to have that appointment he canceled an appo intment with us and then when he needed a refill I would not give it to him . At this time, he does not require refill of the gabapentin. OARRS was reviewed. He will call when he does. BARRETT score: 86% Future Appointments Appointment Date:05/09/2023 11:00:00 AM Scheduled Provider:Tristen AQUINO, Sherie HARLEY Location:[facility] Appointment Type: Open Future Scheduled Tests Laboratory* CBC w/ Auto Diff 02/07/23 * Comprehensive Metabolic Panel 02/07/23 * Lipid Panel 02/07/23 [facility]09-18-2023 Hospital Discharge instructions Patient Education 02/06/2023 18:30:10 [...] ask your health careprovider. General instructions Take syho-pao-lzxwney and prescription medicines only as told by your health care provider. Keep all follow-up visits. This is important. Where to find more information [place] [employer]: www.heart.org National Heart, Lung, and Blood [place]: www.nhlbi.nih.gov Contact a health care provider if: [...] provider. Document Revised: 07/22/2021 Document Reviewed: 07/12/2021 Epoch Patient Education 2022 [employer]. 02/06/2023 18:30:06 Health Risks of Smoking Health [...] Department of Health and Human Services: www.smokefree.gov [place] [employer] Association: www.freedomfromsmoking.org [place] Heart Association: www.heart.org Where to find more [...] provider. Document Revised: 05/10/2022 Document Reviewed: 05/10/2022 Epoch Patient Education 2022 [employer] 02/06/2023 18:30:05 DASH Eating Plan DASH Eating [...] Dairy Whole or 2% milk, cream, and hvev-jce-yvfp. Whole or full-fat cream cheese. Whole-fat or [...] more information National Heart, Lung, and Blood [place]: www.nhlbi.nih.gov [place] [employer]: www.heart.org Academy of Nutrition and [...] provider. Document Revised: 04/10/2020 Document Reviewed: 04/10/2020 Epoch Patient Education 2022 [employer]. Follow Up Care 07/22/2022 14:47:37 With:Tristen AQUINO, Sherie HARLEY Address: [address] [place] [id number] When:Within 3 Month(s) Comments:smoking cessation f/u [facility] 08-31-2023 Miscellaneous Notes* Telephone Encounter - Radha Marroquin - 01/19/2023 3:44 PM EDT Patient requested refill of Pletal 100 mg, qty 180, one tob po bis, [address] Yan [facility] [place] [place] [facility] Evaluation + Plan note Extracted from:Title:Pain Managment Follow upAuthor:Manoj DIAZ, AmandaDate: 01/18/23 Impression and Plan Patient is a 62-year-old male with a past medical history significant for lumbosacral neuritis, lumbar degenerative disease and multifocal pain. At this time, he is using gabapentin. 900 mg 3 times aday. He has not gotten the relief he [...] CT scan for possible injection options versus velázquez rgical consultation depend on the results. Patient is agreeable. Patient is not able to have an MRIdue to some shrapnel in his body. He is going to follow-up after the CT scan for further discussionof different options. BARRETT score: 72% Future Appointments Appointment Date:02/03/2023 09:20:00 AM Scheduled Provider:Tristen AQUINO, Sherie HARLEY Location:[facility] Appointment Type:[facility]06-23-2023 Evaluation + Plan noteExtracted from: Title:Pain Managment Follow upAuthor:Jillian Aranda PA-CDate:11/11/22 Impression and Plan Patient is a 62-year-old [...] Future Appointments Appointment Date:01/27/2023 08:00:00 AM Scheduled Provider:Tristen AQUINO, CRICKET, Sherie Dash Location:[facility] Appointment Type:[facility]06-05-2023 Miscellaneous Notes* Telephone Encounter - Radha Marrqouin - 10/24/2022 11:31 AM EDT Patient requesting refill of Pletal Called into [facility] [phone] Cilostazol 100 mg tab, 100mg, 180 qty, 2 refills. Take 1 tab po bid documented in this encounterA[facility] Evaluation + Plan note Extracted from:Title:Pain Managment Follow upAuthor:Manoj DIAZ AmandaDate: 10/14/22 Impression and Plan Patient is a 62-year-old [...] Date:11/11/2022 09:00:00 AM Scheduled Provider:Jillian Aranda PA-C Location:[facility] Appointment Type:Pain Management - Follow Up (FT) Appointment Date:01/27/2023 08:00:00 AM Scheduled Provider:Tristen AQUINO, APPLICATION ADMINISTRATOR-Sherie JONES Location:[facility] Appointment Type:[facility]05-03-2023 Evaluation + Plan noteExtracted from: Title:Clinical DocumentAuthor:Elise BURNETTE, GaliryDate:09/21/22 Procedure: Injection of the left and right [...] was administered into the skin with a 25-gauge needle, a 25-gauge Quincke needle was inserted into the skin and advanced to the midpoint of that line just superior to the acetabulum and was advanced until the bone was contacted.The needle was withdrawn slightly. Aspiration was negative. [...] Date:10/14/2022 08:45:00 AM Scheduled Provider:Jillian Aranda PA-C Location:[facility] Appointment Type:Pain Management - Follow Up (FT) Appointment Date:01/27/2023 08:00:00 AM Scheduled Provider:CRICKET Anders Tammy L. Location:[facility] Appointment Type:[facility]03-31-2023 Evaluation + Plan noteExtracted from: Title:Pain Managment Follow upAuthor:Jillian Aranda PA-CDate:08/19/22 Impression and Plan Patient is a 61-year-old male. He presents today for follow-up after undergoing left and right lateral branch blocks from S1-3. This gave him 100% relief for 4 to 6 hours. He was able to walk furtherand stand longer. Unfortunately, since his pain has [...] piriformis injection to be done by Dr. Hager. Procedure was discussed. Questions and concerns were all answered and discussed at length. At this time we will facilitate authorization for this and follow-up with patient to do the injection. We will then see him back 3 weeks after the injection for reevaluation. In regards to his medications, OARRS reviewed. At this time, he is also requesting refills.I will send refills to his pharmacy of his medications baclofen and gabapentin. BARRETT score: 58 Future Appointments Appointment Date:01/27/2023 08:00:00 AM Scheduled Provider:CRICKET Anders [facility] L[facility] [id number] Hospital Discharge instructions Patient Education 07/21/2022 14:32:40 [...] these methods. Where to find more information [place] [employer] Association: www.lung.org [place] [employer]: www.cancer.org Summary Smoking cigarettes is [...] 06/15/2005 Document Revised: 08/09/2018 Document Reviewed: 05/12/2017 Epoch Patient Education 2020 [employer]. 07/21/2022 14:32:29 DASH Eating Plan DASH Eating [...] health care provider or diet and dairy nutritionist (dietitian) to adjust your eating plan to [...] each week. ?Heart-healthy fats. Healthy fats called [place]-3 fatty acids are found in foods such [...] Dairy Whole or 2% milk, cream, and mkji-wva-uukg. Whole or full-fat cream cheese. Whole-fat or [...] more information: National Heart, Lung, and Blood [place]: www.nhlbi.nih.gov [place] [employer]: www.heart.org Summary The DASH eating [...] health care provider or diet and dairy nutritionist (dietitian) to adjust your eating plan to your individual calorie needs. This information is not intended to replace advice given to you by your health care provider. Make sure you discuss any questions you have with your health care provider. Document Released: 04/26/2012 Document Revised: 04/20/2018 Document Reviewed: 05/01/2017 Epoch Patient Education 2020 [employer]. Follow Up Care 07/14/2022 15:46:53 With:Tristen AQUINO, APPLICATION ADMINISTRATOR-PROCUREMENT BUYER, Sherie Dash Address: [address] [place] [phone] When:Within 6 Month(s) Comments:chronic care [facility] [place] 01-20-2023 Evaluation + Plan noteExtracted from:Title: Pain Managment Follow upAuthor:Manoj DIAZ, AmandaDate:06/10/22 Impression and Plan Patient is a 61-year-old [...] Call clinic sooner if necessary. BARRETT score: 35[facility]12[facility] History of Present illness Narrative* Aleja Galeano RN - 05/18/2022 9:17 AM EST 09:05 Admitted to PACU from OR. Monitor leads applied rec'd report and pt assessed. Remains very sleepy from surgery will monitor. 09:15 Remains sleepy VSS no distress noted. 09:23 Fully awake offers no C/O, VSS. [facility] [employer] Phone: 1(933) 497-655312-28-2022 Hospital Discharge instructions* Discharge Instructions* Beltran Hall MD - 05/18/2022 8:53 AM EST Normal post colonoscopy instructions May resume Plavix Call office in 1 week for polyp results No driving today [facility] [employer] Phone: 1([phone]) 280-638612-28-2022 NoteSite: [facility] Patient Name: JASMEET PERDUE Procedure Date: 05/18/2022 Date of : 1960 Gender: Male Attending MD: Beltran Hall Referring MD: PCP NO Indications: - Screening [...] - Await pathology results. 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 All Rights Reserved. The CPT codes, CCI edits and ICD codes generated are intended as suggestions and were generated based on input data. These codes are preliminary and upon soft sugar cutter review may be revised to meet current compliance and payer requirements. The provider is responsible for the final determination of appropriate codes, and modifiers. Scope Withdrawal Time: 00:17:48 Signature Name: Beltran Hall MD Signature Statement:This document has been electronically signed. Note Initiated On:05/18/2022 Signature Date:05/18/2022 8:57 AMSWOH [id number] Hospital Discharge instructions Patient Education 03/17/2022 09:06:08 [...] 02/01/2005 Document Revised: 08/23/2018 Document Reviewed: 08/23/2018 Epoch Patient Education 2020 [employer]. 03/16/2022 14:24:46 Gastroesophageal Reflux Disease, Adult Gastroesophageal [...] powder, vinegar, hot sauces, and barbecue sauce. ?[place] fruit juices and citrus fruits, such as oranges, nilesh, and limes. ?Tomato-based foods, such as red sauce, chili, salsa, and pizza with red sauce. ?Fried and fatty foods, such as donuts, south african fries, potato chips, and high-fat dressings. ?High-fat [...] to any changes in your symptoms. Take bmxk-jta-gjjlagf and prescription medicines only as told by [...] you have new or worsening symptoms. Take poku-vof-qwjtmrv and prescription medicines only as told by [...] 02/15/2006 Document Revised: 11/14/2018 Document Reviewed: 11/14/2018 Epoch Patient Education Pertino. Follow Up Care 09/28/2021 09:49:44 With:NIXON BURNETTE, CLIFTON Han Address: [address] [place], [place] [id number]- [facility] [facility] Evaluation + Plan noteExtracted from:Title: Pain management follow-upAuthor:Manoj DIAZ, AmandaDate:03/04/22 Impression and Plan Patient is a 61-year-old [...] his baclofen and gabapentin. He will call whenhe requires any refills. At this time I would like to gather up his notes from his surgeon and I would like to speak to Dr. hager. I will call patient with a formal plan of care once I have been able to speak to him. Future Appointments Appointment Date:03/17/2022 08:20:00 AM Scheduled Provider:Henry FREITAS MD Location:[facility] Appointment Type:[facility]09-14-2022 Evaluation + Plan noteExtracted from: Title:Operative ReportAuthor:Marcel Hager MDDate:02/02/22 SURGERY DATE: 02/02/2022 DIAGNOSIS: Lumbosacral radiculopathy OPERATION: [...] right S1 levels because the patient had symptomsin the distribution of those nerve roots PROCEDURE: [...] needle was inserted into the skin and advancedinto the left S1 foramen under intermittent fluoroscopic guidance. Proper needle position was confirmed via AP and lateral fluoroscopy. Contrast was administered under live fluoroscopy which demonstrated appropriate epidural and nerve root uptake and the absence of any intravascular or intrathecal s pread. The local anesthetic steroid solution was injected incrementally. The needle was removed. Bleeding was nil. The procedure was repeated in the same manner at the same level on the opposite side. The patient tolerated the procedure well and was transferred to the Recovery Room in good condition. Marcel Hager M.D. Future Appointments Appointment Date:03/04/2022 08:00:00 AM Scheduled Provider:Jillian Aranda PA-C Location:[facility] Appointment Type:Pain Management - Follow Up (FT) Appointment Date:03/17/2022 08:20:00 AM Scheduled Provider:Henry FREITAS MD [facility]08-08-2022 Evaluation + Plan noteExtracted from: Title:Pain management follow upAuthor:Jillian Aranda PA-CDate:12/27/21 Impression and Plan Patient is a 60-year-old male. He has a past medical history significant for lumbosacral neuritis. Patient underwent previous bilateral S1 transforaminal epidural steroid injection. This was done on 07/28/2021 and gave him 75% relief. He continues to use baclofen 10 mg 1 tablet up to 3 times daily asneeded pain. He also uses gabapentin 600 mg 3 times a day. He tolerates his well. No side effects. He takes it as prescribed. He is requesting a 9-day supply be sent to his pharmacy. I will accommodate this. At this time we discussed repeating the injection but he wants to first see the surgeon. Hehas an appointment tomorrow. He states that based on what they tell him he may call to pursue the injection but he would like to get his surgical options first. OARRS was reviewed and is appropriate.Patient will follow-up as needed. He will call after he discusses with the surgeon what his optionsare. Future Appointments Appointment Date:03/17/2022 08:20:00 AM Scheduled Provider:Henry FREITAS MD Location:[facility] App[facility]04-27-2022 Hospital Discharge instructions Patient Education 09/15/2021 15:50:02 Laceration Care, Adult, Shuo-ip-Vixq Laceration Care, Adult A laceration is a [...] prevent scarring. Supplies needed: Soap. Water. Hand assembler fitter. Bandage (dressing). Antibiotic ointment. Clean towel. How to take care of your cut Wash your hands with soap and water before touching your wound or changing your bandage. If soap and water are not available, use hand assembler fitter. If your doctor used stitches or janice: [...] falls off the skin. General instructions Take ifej-skd-auxjfxs and prescription medicines only as told by [...] 10/24/2008 Document Revised: 07/06/2018 Document Reviewed: 05/28/2018 Epoch Patient Education 2020 [employer]. Follow Up Care 03/15/2021 14:44:23 With:[facility] Address: When:6 months [facility] [facility] 09-22-2021 Note1.Limited transrectal ultrasound as part of [...] the sigmoid colon with wall thickening are seen.[employer] Phone: 1(662) 677-780508-27-2021 History of Present illness Narrative* Luis Daniel Nanette - 01/15/2021 11:31 AM EDT CLINICAL PHARMACY NOTE: MEDS TO BEDS Total # of Prescriptions Filled: 2 The following medications were delivered to the patient: Ondansetron 4 odt Amoxicillin- pot clavul 875-125 Additional Documentation: Left with pt in room * Geoffrey Richards DO - 01/15/2021 9:52 AM EDT Images from the original note were not included. [facility] Office: [phone] Francisco Sanabria DO, Geoffrey Richards DO, Chandler Romeo DO, Kenyon Rose DO, Tanika Forte MD, Kat Romo MD, Janneth Arevalo MD, Viktoria Parks MD, Goran Weinstein MD, Lanny Michel MD, MD Phyllis, Patt Castro MD, Henry Navarro DO, Tabitha Berkowitz MD, Perry Schreiber DO, MD Nadia, Lani Coles DO, Neftali Galvin MD, Viktoria Kent MD, Ernestine Garcia MD, Tyson Ferreira MD, Sandra Colindres, PROCUREMENT BUYER, Viviane Whitman, PROCUREMENT BUYER, Elli Banuelos, PROCUREMENT BUYER, Janie Sutton, TAILINGS DAM LABORER,Will Arzate, PROCUREMENT BUYER, Camille Casillas, PROCUREMENT BUYER, Brooke Calle, PROCUREMENT BUYER, Tamika Melgoza, PROCUREMENT BUYER, Noe Lucero, PROCUREMENT BUYER, Bk Palacios PA-C, Frieda Strange, RACH, Liz Martin, PROCUREMENT BUYER, Elisabet Rodriguez, PROCUREMENT BUYER, Sharla Rodriguez, PROCUREMENT BUYER, Roger Lozano PROCUREMENT BUYER, Laura Roca, PROCUREMENT BUYER, Daksha Vann, PROCUREMENT BUYER [facility] IN-PATIENT SERVICE [facility] Progress Note 01/15/2021 10:08 AM Name: Jasmeet Perdue Acct: [id number] Room: [address] [place] [address] Day: 3 Admit Date: 01/12/2021 8:27 PM PCP: LEONEL TAVERAS Code Status: Full Code Subjective: C/C: Abdominal pain Interval History Status: Improved Up to chair Left lower quadrant pain resolving Mild pain at drain site Doing okay with diet Has had loose stools Hoping to go home today Data Base Updates: WBC9.1k/uL RBC4.26m/uL Hvprxyqvax91.3 Specimen Source: Abscess Specimen Description.ABSCESS PELVIC Special RequestsNOT REPORTED Direct ExamMANY NEUTROPHILSAbnormal MODERATE GRAM POSITIVE COCCI IN CLUSTERSAbnormal FEW GRAM POSITIVE COCCI IN PAIRSAbnormal FEW GRAM POSITIVE RODSAbnormal CultureLACTOSE FERMENTING GRAM NEGATIVE RODS LIGHT GROWTHAbnormal NORMAL BEATRIZ Brief History: Jasmeet Perdue is a 60 y.o. male who presents with: LLQ pain Patient was admitted thru [facility] with diverticulitis, diverticular abscess The patient [...] initial plan included: Admit N.p.o. Antibiotics: Zosyn bilingual call center representative for abscess drainage per IR Pain management [...] results found for: POCPH, PHART, PH, POCPCO2, DXD4VBR, PCO2, POCPO2, PO2ART, PO2, POCHCO3, ZOM2FOL, HCO3, NBEA, PBEA, BEART, BE, THGBART, THB, XQT3HEN, ADIW5MKP, B2UCJFOD, O2SAT, FIO2 Lab Results Component Value Date/Time [...] Successful CT guided placement of a 8 English pelvic drainage catheter via right transgluteal fashion. [...] services. Follow-up with PCP in one week, LEONEL TAVERAS Notify PCP of discharge Med rec done Drain care CINDY done Home care orders placed DCP 32 min+ IP CONSULT TO GENERAL SURGERY IP CONSULT TO HOME CARE NEEDS Geoffrey Richards DO 01/15/2021 10:08 AM * Geoffrey Richards DO - 01/14/2021 11:14 AM EDT Physician Progress Note PATIENT: JASMEET PERDUE CSN #: [id number] : 1960 ADMIT DATE: 01/12/2021 8:27 PM DISCH DATE: RESPONDING PROVIDER #: GEOFFREY RICHARDS DO QUERY TEXT: Pt admitted with [...] on 01/14/2021 11:08 AM Electronically signed by: GEOFFREY RICHARDS DO 01/14/2021 11:13 AM * Geoffrey Richards DO - 01/14/2021 10:07 AM EDT Images from the original note were not included. [facility] Office: [phone] Francisco Sanabria DO, Geoffrey Richards DO, Chandler Romeo DO, Kenyon Rose DO, Tanika Forte MD, Kat Romo MD, Janneth Arevalo MD, Viktoria Parks MD, Goran Weinstein MD, Lanny Michel MD, MD Phyllis, Patt Castro MD, Henry Navarro DO, Tabitha Berkowitz MD, Perry Schreiber DO, MD Nadia, Lani Coles DO, Neftali Galvin MD, Viktoria Kent MD, Ernestine Garcia MD, Tyson Ferreira MD, Sandra Colindres, PROCUREMENT BUYER, Viviane Whitman, PROCUREMENT BUYER, Elli Baneulos, PROCUREMENT BUYER, Janie Sutton, [place] LABORER,Will Arzate, PROCUREMENT BUYER, Camille Casillas, PROCUREMENT BUYER, Brooke Calle, PROCUREMENT BUYER, Tamika Melgoza, PROCUREMENT BUYER, Noe Lucero, PROCUREMENT BUYER, Bk Paalcios PA-C, Frieda Strange, RACH, Liz Martin, PROCUREMENT BUYER, Elisabet Rodriguez, PROCUREMENT BUYER, Sharla Rodriguez, PROCUREMENT BUYER, Roger Lozano PROCUREMENT BUYER, Laura Roca, PROCUREMENT BUYER, Daksha Vann, PROCUREMENT BUYER [facility] IN-PATIENT SERVICE [facility] Progress Note 01/14/2021 10:18 AM Name: Jasmeet Perdue Acct: [id number] Room: [address] [place] [address] Day: 2 Admit Date: 01/12/2021 8:27 PM PCP: LEONEL TAVERAS Code Status: Full Code Subjective: C/C: Abdominal pain Interval History Status: Improved Status post drain placement Pain better controlled Ambulating Hungry No BM Data Base Updates: Specimen Source: Abscess Specimen Description.ABSCESS PELVIC Special RequestsNOT REPORTED Direct ExamMANY NEUTROPHILSAbnormal MODERATE GRAM POSITIVE COCCI IN CLUSTERSAbnormal FEW GRAM POSITIVE COCCI IN PAIRSAbnormal FEW GRAM POSITIVE RODSAbnormal CulturePENDING Brief History: Jasmeet Perdue is a 60 y.o. male who presents with: LLQ pain Patient was admitted thru [place] with diverticulitis, diverticular abscess The patient [...] initial plan included: Admit N.p.o. Antibiotics: Zosyn bilingual call center representative for abscess drainage per IR Pain management [...] results found for: POCPH, PHART, PH, POCPCO2, VCF3FHG, PCO2, POCPO2, PO2ART, PO2, POCHCO3, IYZ4SID, HCO3, NBEA, PBEA, BEART, BE, THGBART, THB, UYK3KRZ, CFVQ5HXB, F6YLUHCZ, O2SAT, FIO2 Lab Results Component Value Date/Time [...] Successful CT guided placement of a 8 English pelvic drainage catheter via right transgluteal fashion. Assessment: Principal Problem: Colonic diverticular abscess Active Problems: GERD (gastroesophageal reflux disease) Acute diverticulitis AAA (abdominal aortic aneurysm) ([facility]) Tobacco use Chronic midline low back pain with bilateral sciatica DDD (degenerative disc disease), lumbar Hypokalemia Resolved Problems: * No resolved hospital problems. * Plan: Progress to clear liquid diet Antibiotics: Zosyn Pain management CRS evaluation and f/u Dr Tran Smoking cessation / education Reflux precautions Vascular follow-up as scheduled: 5 cm AAA Correct electrolyte abnormalities DVT prophylaxis IP CONSULT TO GENERAL SURGERY Geoffrey Richards DO 01/14/2021 10:18 AM * Yasmeen Tran MD - 01/14/2021 5:53 AM EDT General Surgery: Daily Progress Note PATIENT NAME: Jasmeet Perdue TODAY'S DATE: 01/14/2021, 5:53 AM SUBJECTIVE: [...] rate and rhythm Abdomen: soft, ND, NTTP, COLTON drain in place posteriorly draining purulent fluid [...] with 60 cc of purulent fluid drained. COLTON drainin place. Continue to monitor output Medical management and supportive care per primary team Advance to CLD today Activity: Continue to encourage ambulation/activity w/ [...] General Surgery: Daily Progress Note PATIENT NAME: Jasmeet Perdue TODAY'S DATE: 01/13/2021, 5:53 AM SUBJECTIVE: [...] data in the 24 hours ending 01/13/21 0586 PHYSICAL EXAM: General Appearance: awake, alert, oriented, [...] Yasmeen Tran Colorectal Surgery [facility] Phone: [phone]) 245-285708-27-2021 Hospital Discharge instructions* Discharge Instr - CINDY* Zahida Read RN - 01/15/2021 10:06 AM EDT Continuity of Care Form Patient Name: Jasmeet Perdue : 1960 Admit date: 01/12/2021 Discharge date: 01/15/21 Code Status Order: Full Code Advance Directives: Admitting Physician: Geoffrey Richards DO PCP: LEONEL TAVERAS Discharging Nurse: Zahida MENON Discharging Hospital Unit/Room#: 0320/0320-01 Discharging Unit Emergency Contact: Extended Emergency Contact Information Primary Emergency Contact: Brooke Perdue [facility] Relation: Spouse Past Surgical History: Past Surgical History: Procedure Laterality Date CT ABSCESS DRAIN SUBCUTANEOUS 01/13/2021 CT ABSCESS DRAIN SUBCUTANEOUS 01/13/[address] SCAN CYSTOSCOPY Left stent CYSTOSCOPY Left 06/18/2020 Dr Yip- HLL with stent CYSTOSCOPY Left 06/18/2020 CYSTOSCOPY URETEROSCOPY LASER-WITH HLL performed by Ankita Yip MD at [facility] OR CYSTOSCOPY INSERTION / REMOVAL STENT / STONE Left 06/05/2020 CYSTOSCOPY STENT INSERTION performed by Ankita Yip MD at [facility] OR CYSTOSCOPY INSERTION / REMOVAL STENT / STONE Left 06/18/2020 CYSTOSCOPY STENT INSERTION/EXCHANGE performed by Ankita Yip MD at [facility] OR HERNIA REPAIR upper left INGUINAL [...] diverticular abscess K57.20 AAA (abdominal aortic aneurysm) ([facility]) I71.4 Tobacco use Z72.0 Chronic [...] Independent Dressing Independent Toileting Independent Feeding Independent Supervisor Contingents Independent Med Delivery whole Wound Care Documentation [...] a DME order): na Other Treatments: flush COLTON drain with 10 ml of normal saline twice a day. Patient's personal belongings (please select all that are sent with patient): Larry RN SIGNATURE: CASE MANAGEMENT/SOCIAL WORK SECTION Inpatient Status Date: Readmission Risk Assessment Score: Readmission Risk Risk of Unplanned Readmission: 8 Discharging to Facility/ Agency Name: Address: Phone: Fax: Dialysis Facility (if applicable) Name: Address: Dialysis Schedule: Phone: Fax: Building Construction Supervisor/Lubrication Servicer signature: {Esignature:[id number]:::0} PHYSICIAN SECTION Prognosis: Good Condition at Discharge: Stable Rehab Potential (if transferring to Rehab): N/A Recommended Labs or Other Treatments After Discharge: Regular diet Antibiotics: Augmentin 10 days CRS evaluation and f/u Dr Tran in two weeks Smoking cessation / education Reflux precautions Vascular follow-up as scheduled: 5 cm AAA Follow-up with PCP in one week, LEONEL TAVERAS Drain care Physician Certification: I certify the above information and transfer of Jasmeet Perdue is necessary for the continuing treatment of the diagnosis listed and that he requires Home Care for less 30 days. Update Admission H&P: Principal Problem: Colonic diverticular abscess Active Problems: GERD (gastroesophageal reflux disease) Acute diverticulitis AAA (abdominal aortic aneurysm) ([facility]) Tobacco use Chronic midline low back pain with bilateral sciatica DDD (degenerative disc disease), lumbar Hypokalemia Resolved Problems: * No resolved hospital problems. * PHYSICIAN SIGNATURE: * Attachments The following attachments cannot be sent through Care Everywhere. * Video: Caring for a Drain After Surgery (Armenian) [facility] Work Phone: [phone]) 796-552408-25-2021 NotePROCEDURE: CT GUIDEDTRANSGLUTEAL RIGHT PELVICABSCESS DRAINAGE CATHETER [...] the procedure including risks, benefits, and alternatives. [place] protocol was followed. All elements of maximal [...] wire was used to place a 8 English all-purpose locking drainage catheter after the tract was dilated. Approximately 60 cc purulent material was drained. The catheter was sutured to the skin and the patient tolerated the procedure well. The catheter was attached to COLTON suction drainage. Dose modulation, iterative reconstruction, and/or weight based adjustment of the mA/kV was utilized to reduce the radiation dose to as low as reasonably achievable. FINDINGS: A total of 60 mL of purulent fluid was removed and sent for diagnostic tests. Postprocedural CT demonstrated complete collapse of the cavity. IMPRESSION: Successful CT guided placement of a 8 English pelvic drainage catheter via right transgluteal fashion. Interpreted by: Kendall Thomason MD Signed by: Kendall Thomason MD 01/13/21 Final resultMerLong [facility]08-25-2021 NotePROCEDURE: CT GUIDEDTRANSGLUTEAL RIGHT PELVICABSCESS DRAINAGE CATHETER [...] the procedure including risks, benefits, and alternatives. [place] protocol was followed. All elements of maximal [...] wire was used to place a 8 English all-purpose locking drainage catheter after the tract was dilated. Approximately 60 cc purulent material was drained. The catheter was sutured to the skin and the patient tolerated the procedure well. The catheter was attached to COLTON suction drainage. Dose modulation, iterative reconstruction, and/or weight based adjustment of the mA/kV was utilized to reduce the radiation doseto as low as reasonably achievable. FINDINGS: A total of 60 mL of purulent fluid was removed and sent for diagnostic tests. Postprocedural CT demonstrated complete collapse of the cavity.[facility] Work Phone: evaluation + Plan note Future Appointments Appointment Date:09/29/2021 01:00:00 PM Scheduled Provider:Marcel Hager MD Location:FT.[facility] Appointment Type:Pain Management - Follow Up (FT) [facility] [place] Evaluation + Plan note Future Appointments Appointment [...] (FT) Appointment Date:05/02/2022 07:30:00 AM Scheduled Provider: Location:FT.PH[place]ICAL [place] Appointment Type:PT 45 (FT) Appointment Date:05/05/2022 08:00:00 AM Scheduled Provider: Location:FT.[place]ICAL [place] Appointment Type:PT Re-Eval 45 (FT) [facility] [place] Evaluation + Plan note Future Appointments Appointment Date:06/10/2022 07:45:00 AM Scheduled Provider:Jillian Aranda PA-C Location:FT.[facility] Mgmt [place] Appointment [facility] - [facility] Future Appointments Appointment Date:07/27/2022 01:30:00 PM Scheduled Provider: Location:[facility] Appointment Type:Surgery FT Appointment Date:08/19/2022 11:15:00 AM Scheduled Provider:Jillian Aranda PA-C Location:FT.[facility] [place] Appointment Type:Pain Management - Follow Up (FT) Appointment Date:01/27/2023 08:00:00 AM Scheduled Provider:CRICKET Anders [facility] L. [facility] [place] Evaluation + Plan note Future Appointments Appointment Date:08/19/2022 11:15:00 AM Scheduled Provider:Jillian Aranda PA-C Location:FT.[facility] [place] Appointment Type:Pain Management - Follow Up (FT) Appointment Date:01/27/2023 08:00:00 AM Scheduled Provider:CRICKET Anders [facility] L. [facility] App[facility]ments Appointment Date:02/24/2023 03:15:00 PM Scheduled Provider:Jillian Aranda PA-C Location:[facility] Appointment Type:Pain Management - Follow Up (FT) Appointment Date:05/09/2023 11:00:00 AM Scheduled Provider:Tristen AQUINO, Sherie HARLEY Location:[facility] Appointment Type: Open Future Scheduled Tests Laboratory* CBC w/ Auto Diff 02/07/23 * Comprehensive Metabolic Panel 02/07/23 * Lipid Panel 02/07/23 [facility] Evaluation + Plan note Future Appointments Appointment Date:08/02/2023 11:30:00 AM Scheduled Provider: Location:[facility] Appointment Type:Surgery FT Appointment Date:09/07/2023 03:30:00 PM Scheduled Provider:Cresencio Andrade DO Location:[facility] Appointment Type:Pain Management - Follow Up (FT) Appointment Date:02/02/2024 08:00:00 AM Scheduled Provider:Tristen AQUINO, Sherie HARLEY Location:[facility] Appointment Type: Open Future Scheduled Tests Laboratory* CBC w/ Auto Diff 02/07/23 * Comprehensive Metabolic Panel 02/07/23 * Lipid Panel 02/07/23 [facility] Evaluation + Plan note Future Appointments Appointment Date:08/02/2024 07:20:00 AM Scheduled Provider:Tristen AQUINO, Sherie HARLEY Location:[facility] Appointment Type: Open [facility] Evaluation + Plan note Future Appointments Appointment Date:08/02/2024 07:20:00 AM Scheduled Provider:Tristen AQUINO, Sherie HARLEY Location:[facility] Appointment Type: Open Future Scheduled Tests Laboratory* CBC w/ Auto Diff 02/07/23 * Comprehensive Metabolic Panel 02/07/23 * Lipid Panel 02/07/23 [facility] Evaluation + Plan note Future Appointments Appointment Date:06/04/2024 02:40:00 PM Scheduled Provider:CRICKET Anders Tammy L. Location:[facility] Appointment Type: Open Appointment Date:08/02/2024 07:20:00 AM Scheduled Provider:CRICKET Anders Tammy L. Location:[facility] Appointment Type:[facility] Evaluation + Plan note Future Appointments Appointment Date:12/02/2024 08:20:00 AM Scheduled Provider:CRICKET Anders Tammy L. Location:[facility] Appointment Type:[facility] Evaluation + Plan note Future Appointments Appointment Date:01/13/2025 08:20:00 AM Scheduled Provider:CRICKET Anders Tammy L. Location:[facility] Appointment Type:[facility] Evaluation + Plan note Future Appointments Appointment Date:07/15/2025 09:20:00 AM Scheduled Provider:CRICKET Anders Tammy L. Location:[facility] Appointment Type:[facility] evaluation note* Diagnosis Colonic diverticular abscess- Primary documented in this encounter [employer] Phone: evaluation note* Diagnosis Colonic diverticular abscess- [...] diagnosis of hypertension documented in this encounter [employer] Phone: evaluation note* Diagnosis Abscess Cellulitis and abscess of unspecified site documented in this encounter [employer] Phone: evaluation note* Diagnosis Colonic diverticular abscess Encounter for preadmission testing Abscess Cellulitis and abscess of unspecified site documented in this encounter [employer] Phone: evaluation note* Diagnosis Kidney stones Calculus of kidney documented in this encounter [employer] Phone: evaluation note* Diagnosis Abdominal aortic aneurysm without rupture (HCC) Abdominal aneurysm without mention of rupture documented in this encounter [employer] Phone: evaluation note* Diagnosis 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 documented in this encounter [employer] Phone: evaluation note* Diagnosis Bilateral carotid bruits documented in this encounter [employer] Phone: evaluation note* Diagnosis Colon cancer screening Special screening for malignant neoplasms, colon documented in this encounter [employer] Phone: evaluation note* Diagnosis 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 note* Diagnosis Diverticulitis large intestine- Primary Diverticulitis of colon (without mention of hemorrhage) Bleeding Hemorrhage, unspecified Diverticulitis Diverticulitis of colon (without mention of hemorrhage) Colonic diverticular abscess Hemorrhagic shock (HCC) Other shock without mention of trauma Status post splenectomy Other acquired absence of organ Shock Shock, unspecified Acute retention of urine Other specified retention of urine Impaired mobility and activities of daily living Mechanical problems with limbs documented in this encounter [employer] note* Diagnosis Impaired mobility & ADLs dt RA flare sp debility iliostomy- Primary Mechanical problems with limbs Bilateral sciatica Sciatica Multiple joint pain Pain in joint, multiple sites Ileostomy in place (HCC) Ileostomy status 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 Post-op pain Other acute postoperative pain Tobacco use Tobacco use disorder Smoker Tobacco use disorder Status post splenectomy Other acquired absence of organ Sciatica Rheumatoid arthritis (HCC) Peripheral vascular disease (HCC) Peripheral vascular disease, unspecified Multiple joint pain Pain in joint, multiple sites Lumbar degenerative disc disease Degeneration of lumbar or lumbosacral intervertebral disc GERD (gastroesophageal reflux disease) Esophageal reflux Atherosclerosis of [place] arteries of extremities with intermittent claudication, left leg ([facility]) Shock Shock, unspecified Post-op pain Other acute postoperative pain Ileostomy in place ([facility]) Ileostomy status Urinary retention Retention of urine, unspecified Primary hypertension Unspecified essential hypertension Perforation and abscess of large intestine concurrent with and due to diverticulitis Oral candidiasis Candidiasis of mouth [facility]* Diagnosis Candidiasis- Primary Candidiasis of unspecified site Perforation and abscess of large intestine concurrent with and due to diverticulitis documented [facility] this [facility]* Diagnosis Candidiasis- Primary Candidiasis of unspecified site Perforation and abscess of large intestine concurrent with and due to diverticulitis documented in this encounter [facility]* Diagnosis Candidiasis- Primary Candidiasis of unspecified site Perforation and abscess of large intestine concurrent with and due to diverticulitis documented in this encounter [facility]* Diagnosis Candidiasis- Primary Candidiasis of unspecified site Perforation and abscess of large intestine concurrent with and due to diverticulitis documented in this [facility]* Diagnosis Candidiasis- Primary Candidiasis of unspecified site Perforation and abscess of large intestine concurrent with and due to diverticulitis documented in this [facility]* Diagnosis Candidiasis- Primary Candidiasis of unspecified site Perforation and abscess of large intestine concurrent with and due to diverticulitis documented in this [facility]* Diagnosis Candidiasis- Primary Candidiasis of unspecified site Perforation and abscess of large intestine concurrent with and due to diverticulitis documented in this encounter [facility]* Diagnosis Perforation and abscess of large intestine concurrent with and due to diverticulitis- Primary Status post splenectomy Other acquired absence of organ Thrombocytosis Essential thrombocythemia Colon cancer screening- Primary Special screening for malignant neoplasms, colon Ileostomy dysfunction (HCC)- Primary Mechanical complication of colostomy and enterostomy Ileostomy dysfunction (HCC) Mechanical complication of colostomy and enterostomy [facility]* Diagnosis Candidiasis- Primary Candidiasis of unspecified site Perforation and abscess of large intestine concurrent with and due to diverticulitis [facility]* Diagnosis Perforation and abscess of large intestine concurrent with and due to diverticulitis- Primary Status post splenectomy Other acquired absence of organ Thrombocytosis Essential thrombocythemia Ileostomy dysfunction (HCC)- Primary Mechanical complication of colostomy and enterostomy Ileostomy dysfunction (HCC) Mechanical complication of colostomy and enterostomy documented [facility] this [facility]* Diagnosis Lumbar radiculopathy- Primary Thoracic or lumbosacral neuritis or radiculitis, unspecified [facility] Diagnosis Perforation and abscess of large intestine concurrent with and due to diverticulitis- Primary Status post splenectomy Other acquired absence of organ Thrombocytosis Essential thrombocythemia Kidney stones Calculus of kidney documented [facility]* Diagnosis Perforation and abscess of large intestine concurrent with and due to diverticulitis- Primary Status post splenectomy Other acquired absence of organ Thrombocytosis Essential thrombocythemia Bilateral carotid bruits documented [facility] Narrative No data available for this section [facility] Discharge instructions No data available for this section [facility] No data available for this section [facility] CenterReason for referral (narrative) Referred by: CRICKET Anders Tammy L. [facility] [place] [employer] for referral (narrative) , insurance is requesting a new referrral to be sent Referred by: CRICKET Anders Tammy L. , patient already established patient, unsure if need a new referral, did set appt for 02/09/23 Referred by: CRICKET Anders [facility] L. [facility] N[facility]ative* Treatment Plan and Therapy Plan (Routine) - OpenSpecialtyDiagnoses / ProceduresReferred By Contact Referred To Contact Diagnoses Candidiasis Perforation and abscess of large intestine concurrent with and due to diverticulitis Veronica Mariscal MD [address] [facility] [address] [place] [address] [facility] [address] [place] [address] Referral IDStatusReasonStart DateExpiration DateVisits RequestedVisits [id number]/6/202412/ [facility] N[facility]* Other Medical (Routine) - ClosedSpecialtyDiagnoses / ProceduresReferred By ContactReferred To Contact Neurology Diagnoses Radiculopathy, lumbar region Other spondylosis, lumbar region Procedures GA NERVE CONDUCTION STUDIES 9-10 STUDIES GA NEEDLE EMG EA EXTREMTY W/PARASPINL AREA COMPLETE Molly Moy, [address] [place] [address] Phone: tel: fax: Henry Phillips, [address] [place] [id number] Phone: tel: fax: Referral IDStatusReasonStnotre dame DateExpiration DateVisits RequestedVisits [id number] Perform [facility] Narrative* Imaging (Routine) - Not Required - RTASpecialtyDiagnoses / ProceduresReferred By ContactReferred To Contact Cardiology Diagnoses Bilateral carotid bruits Procedures Vascular duplex carotid bilateral Andrade Oneal MD [address] [facility] [address] [place] [address] Phone: tel: fax: Referral IDStatusReasonStart DateExpiration DateVisits RequestedVisits [id number] Required - [facility] Summary Purpose Family History No Family History [...] History Records FoundNo Family History Records Found Advance Directives No Advanced Directives Records Found Date ActivatedDate WbehibqiforFexczaui70/30/2024 2:22 PM04/25/2024 5:44 PMDate ActivatedDate CjnubghfuizCkjfmkwn14/20/2024 8:12 AM04/20/2024 2:05 PMDate ActivatedDate UhonvrjdtpbSzaarhji01/2/2024 7:22 AM02/21/2024 1:03 PMDate ActivatedDate InactivatedComments06/03/2021 1:24 PM06/04/2021 5:20 PMDate ActivatedDate InactivatedComments01/12/2021 9:44 PM01/15/2021 3:26 PMName RelationshipHealthcare Agent RelationshipCommunicationLinda MurrySpousePrimary Decision Maker* * TypeDate RecordedPatient RepresentativeExplanationACP-Advance DirectiveACP-Power of AttorneyTypeDate RecordedPatient RepresentativeExplanationACP-Advance DirectiveACP-Power of AttorneyCode StatusDate ActivatedDate InactivatedComments Full Code06/18/2020 7:18 AMCode StatusDate ActivatedDate InactivatedCommentsFull Code06/18/2020 7:18 AM06/18/2020 1:50 PMCode StatusDate ActivatedDate Inactivated CommentsFull Code01/12/2021 9:44 PMFull Code06/18/2020 7:18 AM06/18/2020 1:50 PM Code StatusDate ActivatedDate InactivatedCommentsFull Code01/12/2021 9:44 PM 01/15/2021 3:26 PMCode StatusDate ActivatedDate InactivatedCommentsFull Code 06/03/2021 1:24 PM06/04/2021 5:20 PMFull Code01/12/2021 9:44 PM01/15/2021 3:26 PM Full Code06/18/2020 7:18 AM06/18/2020 1:50 PMCode StatusDate ActivatedDate InactivatedCommentsFull Code06/03/2021 1:24 PM06/04/2021 5:20 PMFull Code01/12/2021 9:44 PM01/15/2021 3:26 PMCode StatusDate ActivatedDate InactivatedCommentsFull Code06/03/2021 1:24 PM06/04/2021 5:20 PMCode StatusDate ActivatedDate Inactivated CommentsFull Code01/12/2021 9:44 PM01/15/2021 3:26 PMFull Code06/18/2020 7:18 AM 06/18/2020 1:50 PMDate ActivatedDate RtfcutnjbghUkeokvbv43/2/2024 7:22 AM 02/21/2024 1:03 PMDate ActivatedDate InactivatedComments06/03/2021 1:24 PM 06/04/2021 5:20 PMDate ActivatedDate InactivatedComments01/12/2021 9:44 PM 01/15/2021 3:26 PMDate ActivatedDate InactivatedComments06/18/2020 7:18 AM 06/18/2020 1:50 PMDate ActivatedDate WijixuctwohKhwqihfv15/20/2024 8:12 AMDate ActivatedDate LelfjzcpfvzOcmjawkc59/2/2024 7:22 AM02/21/2024 1:03 PMDate ActivatedDate InactivatedComments06/03/2021 1:24 PM1/ 5:20 PMDate ActivatedDate InactivatedComments01/12/2021 9:44 PM01/15/2021 3:26 PMDate ActivatedDate InactivatedComments06/18/2020 7:18 AM06/18/2020 1:50 PMName RelationshipHealthcare Agent RelationshipCommunicationLinda MurrySpousePrimary Decision Maker* * Date ActivatedDate TmbmuityewqHeglrlhq29/30/2024 2:22 PMNameRelationship Healthcare Agent RelationshipCommunicationLinda MurrySpousePrimary Decision Maker* * NameRelationshipHealthcare Agent RelationshipCommunicationLinda MurrySpouse Primary Decision Maker* * NameRelationshipHealthcare Agent RelationshipCommunicationLinda MurrySpouse Primary Decision Maker* * NameRelationshipHealthcare Agent RelationshipCommunicationLinda MurrySpouse Primary Decision Maker* * NameRelationshipHealthcare Agent RelationshipCommunicationLinda MurrySpouse Primary Decision Maker* * NameRelationshipHealthcare Agent RelationshipCommunicationLinda MurrySpouse Primary Decision Maker* * Date ActivatedDate JcilfkdvszoBavjpxkb67/30/2024 2:22 PM04/25/2024 5:44 PMDate ActivatedDate OxqaubkodxgThlcewhl56/20/2024 8:12 AM04/20/2024 2:05 PMDate ActivatedDate XdyhzrebjbqOnrcbdqk59/2/2024 7:22 AM02/21/2024 1:03 PMDate ActivatedDate InactivatedComments06/03/2021 1:24 PM06/04/2021 5:20 PMDate ActivatedDate InactivatedComments01/12/2021 9:44 PM01/15/2021 3:26 PMName RelationshipHealthcare Agent RelationshipCommunicationLinda MurrySpousePrimary Decision Maker* * Date ActivatedDate InactivatedComments06/10/2024 6:17 AMDate ActivatedDate PuzcrggpraaRtngcgwp37/30/2024 2:22 PM04/25/2024 5:44 PMDate ActivatedDate GjvrhxesgroXwddhzho34/20/2024 8:12 AM04/20/2024 2:05 PMDate ActivatedDate JqbihmtkeadJsvfmcdp57/2/2024 7:22 AM02/21/2024 1:03 PMDate ActivatedDate InactivatedComments06/03/2021 1:24 PM06/04/2021 5:20 PMNameRelationshipHealthcare Agent RelationshipCommunicationLinda MurrySpousePrimary Decision Maker* * NameRelationshipHealthcare Agent RelationshipCommunicationLinda MurrySpouse Primary Decision Maker* * Date ActivatedDate InactivatedComments07/01/2024 1:58 PMDate ActivatedDate InactivatedComments07/01/2024 1:58 PM2 1:58 PMDate ActivatedDate InactivatedComments06/10/2024 6:17 AM06/10/2024 11:13 AMDate ActivatedDate HdcbfcwbmreBssbutdk40/30/2024 2:22 PM04/25/2024 5:44 PMDate ActivatedDate FhignhkbfdxLhoicphx43/20/2024 8:12 AM04/20/2024 2:05 PMNameRelationship Healthcare Agent RelationshipCommunicationLinda MurrySpousePrimary Decision Maker* * Date ActivatedDate InactivatedComments07/01/2024 1:58 PM2 3:29 PMDate ActivatedDate InactivatedComments07/01/2024 1:58 PM2 1:58 PMDate ActivatedDate InactivatedComments06/10/2024 6:17 AM06/10/2024 11:13 AMDate ActivatedDate EwzseqxgqyvVkuuazmt41/30/2024 2:22 PM04/25/2024 5:44 PMDate ActivatedDate OzgzijjuxvvWoecoipm21/20/2024 8:12 AM04/20/2024 2:05 PMName RelationshipHealthcare Agent RelationshipCommunicationLinda MurrySpousePrimary Decision Maker* * NameRelationshipHealthcare Agent RelationshipCommunicationLinda MurrySpouse Primary Decision Maker* * Date ActivatedDate InactivatedComments07/01/2024 1:58 PM2 3:29 PM Discharge Instructions * Instructions* Jeannette Gomez [...] the bathroom and getting dressed. Call Dr. Yip ([phone]) if you develop: Fever over 100 degrees Prolonged soreness/pain Unusual bleeding/bruising Unable to urinate or if urine is bloody You cannot pass urine 8 hours after the test. You have pain in your belly or your back just below your rib cage. (This is called flank pain.) You have frequent urge to urinate but can pass only small amounts of urine. Call Dr. Yip office for follow-up appointment ([phone]). documented in this encounter* Attachments The following attachments cannot be sent through Care Everywhere. * Kidney Stone (Armenian) * Ureteral Stent Placement: Pre-op (Armenian) * Aortic Aneurysm: Abdominal (Armenian) documented in this encounter* Instructions* Mirian Weaver [...] to flush the urinary tract.) Call Dr. Yip ([phone]) if you develop: Fever over 100 degrees Prolonged soreness/pain Unusual bleeding/bruising Unable to urinate or if urine is bloody You cannot pass urine 8 hours after the test. You have pain in your belly or your back just below your rib cage. (This is called flank pain.) You have frequent urge to urinate but can pass only small amounts of urine. Call Dr. Yip office for follow-up appointment ([phone]). documented in this encounter History of Present [...] Discharge instructions given to pt and . 916 Dr. Yip spoke with pt and .Discharge Criteria Inpatients [...] stone Calculus of kidney Reason for Referral StatusReasonSpecialtyDiagnoses / ProceduresReferred By ContactReferred To ContactClosedRadiology Diagnoses Abscess Procedures CT ABDOMEN PELVIS WO CONTRAST Additional Contrast? Rectal Geoffrey Brock MD [address] [facility] [address] [place] [address] StatusReasonSpecialtyDiagnoses / ProceduresReferred By ContactReferred To ContactClosedRadiology Diagnoses Colonic diverticular abscess Encounter for preadmission testing Procedures US TRANSRECTAL Flaco Quan, APPLICATION ADMINISTRATOR - PROCUREMENT BUYER [address] [facility] [address] [place] [address] SpecialtyDiagnoses / ProceduresReferred By ContactReferred To ContactRadiology Diagnoses Abdominal aortic aneurysm without rupture (HCC) Procedures [place] [address] [place] [address] Referral IDStatusReasonStart DateExpiration DateVisits RequestedVisits [id number] [id number] / ProceduresReferred By ContactReferred To ContactRadiology Diagnoses 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) Procedures US DUP LOWER [place]REM[place] [address] [place] [address] Referral IDStatusReasonStart DateExpiration DateVisits RequestedVisits [id number] Review/[id number] / ProceduresReferred By ContactReferred To ContactRadiology Diagnoses Bilateral carotid bruits Procedures US CAROTID ARTERY BILATERAL Andrade Oneal MD [address] [facility] [address] [place] [address] Referral IDStatusReasonStart DateExpiration DateVisits RequestedVisits [id number]/4/20229/18/561453Ycqmtosy IDStatusReasonStart Date Expiration DateVisits RequestedVisits [id number] Review07/30/2022554617KbjoadeksZkwfhmjkw / ProceduresReferred By ContactReferred To Contact Radiology Diagnoses Infrarenal abdominal aortic aneurysm (AAA) without rupture (HCC) Procedures [place] [address] [place] [address] Referral IDStatusReasonStart DateExpiration DateVisits RequestedVisits [id number] Review/[id number] / ProceduresReferred By ContactReferred To Contact Diagnoses Aneurysm of infrarenal abdominal aorta, unspecified whether ruptured (HCC) Procedures [place]ascular [place] [address] [place] [address] Referral IDStatusReasonStart DateExpiration DateVisits RequestedVisits [id number] Review/ Additional Source Comments (unrecognized sect ion and [...] section and content) DATE CREATED AUTHOR 11/15/2017 [facility] DATE CREATED AUTHOR AUTHOR'S ORGANIZ ATION 06/18/[address] [facility] DATE CREATED AUTHOR AUTHOR'S ORGANIZ ATION 01/19/2021 [facility] DATE CREATED AUTHOR AUTHOR'S ORGANIZ ATION 09/05/2024 [facility] DATE CREATED AUTHOR AUTHOR'S ORGANIZ ATION 09/24/2024 [facility] DATE CREATED AUTHOR AUTHOR'S ORGANIZ ATION 11/16/2024 [facility] DATE CREATED AUTHOR AUTHOR'S ORGANIZ ATION 12/03/2024 [facility] DATE CREATED AUTHOR AUTHOR'S ORGANIZ ATION 12/06/2024 [facility] DATE CREATED AUTHOR AUTHOR'S ORGANIZ ATION 12/06/2024 [facility] DATE CREATED AUTHOR AUTHOR'S ORGANIZ ATION 12/09/2024 [facility] DATE CREATED AUTHOR AUTHOR'S ORGANIZ ATION 01/14/2025 [facility] DATE CREATED AUTHOR AUTHOR'S ORGANIZ ATION 02/06/2025 [facility] DATE CREATED AUTHOR AUTHOR'S ORGANIZ ATION 03/08/2025 [facility] DATE CREATED AUTHOR AUTHOR'S ORGANIZ ATION 03/16/2025 [facility] DATE CREATED AUTHOR AUTHOR'S ORGANIZ ATION 03/23/2025 [facility] Reason for Visit (unrecogniz ed section and content) StatusReasonSpecialtyDiagnoses / ProceduresReferred By ContactReferred To Contact Diagnoses Left ureteral calculus LEFT URETERAL CALCULUS Procedures GA CYSTO/URETERO W/LITHOTRIPSY &INDWELL STENT INSRT GA CYSTO/URETERO W/LITHOTRIPSY &INDWELL STENT INSRT CYSTOSCOPY URETEROSCOPY LASER-WITH HLL CYSTOSCOPY STENT INSERTION/EXCHANGE Ankita Yip MD [address] [facility] [place] [address] [employer] ReasonCommentsFlank Painpain to left flank and abdomen started yesterday. Pt sent here from [facility] office for possible Kidney StoneStatusReasonSpecialty Diagnoses / ProceduresReferred By ContactReferred To Contact Diagnoses Kidney stone KIDNEY STONE Procedures GA CYSTOSCOPY,INSERT URETERAL STENT CYSTOSCOPY STENT INSERTION Ankita Yip MD [address] [facility], [address] [place] [address] [facility] [employer] ReasonCommentsAbdominal Painstarted Monday - had BM Monday - hx AAA - was sent over from walk in clinicStatusReasonSpecialtyDiagnoses / ProceduresReferred By ContactReferred To Contact Diagnoses Acute diverticulitis acute diverticulitis Geoffrey Richards DO [facility] [place] [address] [facility] StatusReasonSpecialtyDiagnoses / ProceduresReferred By ContactReferred To ContactClosedRadiology Diagnoses Abscess Procedures CT ABDOMEN PELVIS WO CONTRAST Additional Contrast? Rectal Geoffrey Brock MD [address] [facility] [address] [place] [address] StatusReasonSpecialtyDiagnoses / ProceduresReferred By ContactReferred To ContactClosedRadiology Diagnoses Colonic diverticular abscess Encounter for preadmission testing Procedures US ABSCESS DRAINAGE W CATH S&I IR ABSCESS DRAINAGE PERC Flaco Quan, APPLICATION ADMINISTRATOR - PROCUREMENT BUYER [address] [facility] [address] [place] [address] SpecialtyDiagnoses / ProceduresReferred By ContactReferred To ContactRadiology Diagnoses Pre-operative clearance Z01.818 (ICD-10-CM) - Pre-operative clearance Procedures NM MYOCARDIAL SPECT REST EXERCISE OR RX CHG MYOCARDIAL SPECT MULTIPLE STUDIES 77915 - CHG MYOCARDIAL SPECT MULTIPLE STUDIES Andrade Oneal MD [address] [facility] [address] [place] [address] Referral IDStatusReasonStart DateExpiration DateVisits RequestedVisits [id number] Zfuvpc00/[id number] / ProceduresReferred By ContactReferred To ContactRadiology Diagnoses Abdominal aortic aneurysm without rupture (HCC) Procedures [place] [address] [place] [address] Referral IDStatusReasonStart DateExpiration DateVisits RequestedVisits [id number] Review/[id number] / ProceduresReferred By ContactReferred To ContactRadiology Diagnoses 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) Procedures US DUP LOWER [place]REMITY [place] [address] [place] [address] Referral IDStatusReasonStart DateExpiration DateVisits RequestedVisits [id number] Review/[id number] / ProceduresReferred By ContactReferred To ContactRadiology Diagnoses Bilateral carotid bruits Procedures US CAROTID ARTERY BILATERAL Andrade Oneal MD [address] [facility] [address] [place] [address] Referral IDStatusReasonStart DateExpiration DateVisits RequestedVisits [id number]/4/20229/917870WphrbqdjwNlrvobtqr / Procedures Referred By ContactReferred To Contact Diagnoses Colon cancer screening COLON SCREENING Procedures GA COLON CA SCRN NOT HI RSK IND GA COLONOSCOPY FLX DX W/COLLJ SPEC WHEN PFRMD COLONOSCOPY, PAT ON ADMIT Beltran Hall MD [address] [facility] [address] [place] [address] [facility] [address] [place] [address] Referral IDStatusReasonStart DateExpiration DateVisits RequestedVisits [id number] IDStatusReasonStart DateExpiration DateVisits RequestedVisits [id number] Review/[id number] Diagnoses / ProceduresReferred By ContactReferred To ContactRadiology Diagnoses Infrarenal abdominal aortic aneurysm (AAA) without rupture (HCC) Procedures [place]UPLEX [place] [address] [place] [address] Referral IDStatusReasonStart DateExpiration DateVisits RequestedVisits [id number] Review/[id number]lvuq CommentsMedication AssistancePatient out of Pletal, requesting new RxSpecialty Diagnoses / ProceduresReferred By ContactReferred To Contact Diagnoses Aneurysm of infrarenal abdominal aorta, unspecified whether ruptured (HCC) Procedures Vascular [place] [address] [place] [address] Referral IDStatusReasonStart DateExpiration DateVisits RequestedVisits [id number] Review/[id number] Request PletalSpecialtyDiagnoses / ProceduresReferred By ContactReferred To Contact Diagnoses Diverticulitis large intestine Diverticulitis large intestine [K57.32] Procedures GA COLECTOMY PARTIAL W/ANASTOMOSIS Sigmoid colectomy with possible ileostomy/in person PAT/bowel prep mechanical and antibiotic Beltran Hall MD [address] [address] [facility] [id number] [place] [phone] [facility] DateExpiration DateVisits RequestedVisits [id number] / ProceduresReferred By ContactReferred To Contact Diagnoses IMPAIRED MOBILITY AND ADL'S D/T DEBILITY 2ND TO ABD SURGERY Procedures ADMIT TO INPATIENT REHAB Bárbara Dong DO [address] [place] [address] [facility] [id number] [place] [phone] Referral [facility]Status[facility] DateExpiration DateVisits RequestedVisits [id number] / ProceduresReferred By ContactReferred To Contact Diagnoses Colon cancer screening Colon cancer screening [Z12.11] Procedures GA COLONOSCOPY FLX DX W/COLLJ SPEC WHEN PFRMD Colonoscopy possible biopsy/no bowel prep/phone PAT 06/03/24 Beltran Hall MD [address] [address] [facility] [id number] [place] [phone] Referral IDStatusReasonStnotre dame DateExpiration DateVisits RequestedVisits [id number] / ProceduresReferred By ContactReferred To Contact Diagnoses Ileostomy dysfunction (HCC) Ileostomy dysfunction (HCC) [K94.13] Procedures GA CLOSURE ENTEROSTOMY LG/SMALL INTESTINE Ileostomy reversal/hold Plavix 3 days prior/PAT performed already Beltran Hall MD [address] [address] [facility] [address] [place] [address] Referral IDStatusReasonStnotre dame DateExpiration DateVisits RequestedVisits [id number] Ordered Prescriptions (unrec ognized section and content) PrescriptionSigDispensedRefillsStart DateEnd Date sulfamethoxazole-trimethoprim (BACTRIM DS) 800-160 MG per tablet Take 1 tablet by mouth 2 times daily for 7 days 14 tablet / tamsulosin (FLOMAX) 0.4 MG capsule Take 1 capsule by mouth daily for 7 days 7 capsule / ondansetron (ZOFRAN ODT) 4 MG disintegrating tablet Take 1 tablet by mouth every 4 hours as needed for Nausea or Vomiting 10 tablet oxyCODONE-acetaminophen (PERCOCET) 5-325 MG per tablet Indications:Left renal stoneTake 1 tablet by mouth every 6 hours as needed for Pain for up to 3 days. Intended supply: 3 days. Take lowest dose possible to manage pain 12 tablet /rescriptionSigDispensedRefillsStart DateEnd Date amoxicillin-clavulanate (AUGMENTIN) 875-125 MG per tablet Take 1 tablet by mouth every 12 hours for 10 days 20 tablet /10/2020 ondansetron (ZOFRAN-ODT) 4 MG disintegrating tablet Take 1 tablet by mouth every 8 hours as needed for Nausea or Vomiting 20 tablet rescriptionSigDispensedRefillsStart DateEnd Date piperacillin-tazobactam (ZOSYN) infusion Infuse 3.375 g intravenously every 6 hours CBC BMP weekly CRP in 3 weeks Fax results to [phone] Follow-up with Dr. Veronica Mariscal in 4 weeks at [phone] 405 g rescriptionSigDispensedRefillsStart DateEnd Date fluconazole (DIFLUCAN) 200 MG tablet Take 1 tablet by mouth daily for 10 days 10 tablet ertapenem (INVANZ) infusion Infuse 1,000 mg intravenously every 24 hours for 10 days CBC BMP in 1 week CRP in 1 week Fax results to [phone] 10 g Vitamin D (CHOLECALCIFEROL) 50 MCG (1999) TABS tablet Take 1 tablet by mouth Daily with supper 60 tablet nicotine (NICODERM CQ) 14 MG/24HR Place 1 patch onto the skin daily 30 patch tamsulosin (FLOMAX) 0.4 MG capsule Take 1 capsule by mouth daily 30 capsule buPROPion (WELLBUTRIN SR) 150 MG extended release tablet Take 1 tablet by mouth 2 times daily 60 tablet oxyCODONE-acetaminophen (PERCOCET) 5-325 MG per tablet Indications:Bilateral sciatica,Multiple joint pain,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 Max Daily Amount: 6 tablets 30 tablet piperacillin-tazobactam (ZOSYN) infusion Infuse 3.375 g intravenously every 6 hours for 10 days Cbc bmp weekly CRP weekly 135 g rescriptionSigDispensedRefillsStart DateEnd Date oxyCODONE-acetaminophen (PERCOCET) 5-325 MG per tablet Indications:Ileostomy dysfunction (HCC)Take 1 tablet by mouth every 6 hours as needed for Pain for up to 3 days. Max Daily Amount: 4 tablets 12 tablet Scheduled Active and Recently Administ ered Medications (unrecognized section and content) Medication Order// 0.9 % sodium chloride bolus (COMPLETED) 1,000 mL (13.8 mL/kg), Intravenous, at 1,000 mL/hr, Administer over 1 Hours, ONCE, On Mon01/12/21 at 0900, For 1 dose * 0900 (New Bag - Provider: Starr Brasher, RN) * 1050 (Stopped - Provider: Iftikhar Ac, RN) morphine sulfate (PF) injection 4 mg (COMPLETED) 4 mg, Intravenous, ONCE, On Mon01/12/21 at 0900, For 1 dose * 0901 (Given - Provider: Starr Brasher, RN) morphine sulfate (PF) injection 4 mg (COMPLETED) 4 mg, Intravenous, ONCE, On Mon01/12/21 at 1100, For 1 dose * 1056 (Given - Provider: Iftikhar Ac, RN) morphine sulfate (PF) injection 4 mg (COMPLETED) 4 mg, IntraVENous, ONCE, On Mon01/12/21 at 1730, For 1 dose * 1722 (Given - Provider: Delores Hatfield, RN) ondansetron (ZOFRAN) injection 4 mg (COMPLETED) 4 mg, Intravenous, ONCE, On Mon01/12/21 at 0900, For 1 dose * 0901 (Given - Provider: Starr Brasher, LYNSEY) piperacillin-tazobactam (ZOSYN) 4,500 mg in dextrose 5 % 100 mL IVPB (mini-bag) (COMPLETED) 4,500 mg, Intravenous, ONCE, 1 dose, On Mon01/12/21 at 1030 * 1044 (New Bag - Provider: Iftikhar Ac, LYNSEY) * 1114 (Stopped - Provider: Delores Hatfield, RN) piperacillin-tazobactam (ZOSYN) 4,500 mg in dextrose 5 % 100 mL IVPB (mini-bag) (COMPLETED) 4,500 mg, IntraVENous, ONCE, 1 dose, On Mon01/12/21 at 1730 * 1722 (New Bag - Provider: Delores Hatfield, LYNSEY) * 1756 (Stopped - Provider: Iftikhar Ac, RN) Medication Order// iopamidol (ISOVUE-370) 76 % injection 75 mL (COMPLETED) 75 mL, Intravenous, IMG ONCE PRN, Other, Starting on Mon01/12/21 at 0913, For 1 dose * 0942 (Given - Provider: Delmy Dean) Medication Order/// amoxicillin-clavulanate (AUGMENTIN) 875-125 MG per tablet 1 tablet 1 tablet, Oral, EVERY 12 HOURS SCHEDULED (2 times per day), First dose on Mon01/15/21 at 1015 * 1204 (Given - Provider: Zahida Read, [place]) * 2100 (Due) enoxaparin (LOVENOX) injection 40 mg 40 mg, Subcutaneous, DAILY, First dose on Mon01/13/21 at 0900 * 0742 (Not Given - Provider: Majo Mchugh RN - Reason: Contraindicated) * 1022 (Held by provider - Provider: Lidia Whitney MD - Reason: Transfer to a Procedural area - Comment: IR drainage of abscess) * 0900 (Automatically Held - Provider: Lidia Whitney MD) * 1018 (Unheld by provider - Provider: Geoffrey Richards DO) * 1506 (Given - Provider: Cherie Self RN) * 0809 (Given - Provider: Zahida Read RN) famotidine (PEPCID) injection 20 mg (CANCELED) 20 mg, IntraVENous, 2 TIMES DAILY, First dose on Mon01/12/21 at 2245, Administer over 2 minutes. * 0833 (Given - Provider: Cherie Self RN) * 2053 (Given - Provider: Solo Huff RN) * 0937 (Given - Provider: Cherie Self RN) * 2305 (Given - Provider: Jeanine Harry, [place]) * 0809 (Given - Provider: Zahida Read, [place]) pantoprazole (PROTONIX) tablet 20 mg 20 mg, Oral, DAILY BEFORE BREAKFAST, First dose on Mon01/16/21 at 0700, Do not crush or break. piperacillin-tazobactam (ZOSYN) 3,375 mg in dextrose 5 % 50 mL IVPB (mini-bag) (CANCELED) 3,375 mg, IntraVENous, EVERY 8 HOURS, First dose (after last reorder) on Mon01/13/21 at 0145, UntilDiscontinued * 0153 (New Bag - Provider: Shahzad Torres, [place]) * 0527 (Stopped - Provider: Shahzad Torres RN) * 1023 (New Bag - Provider: Cherie Self RN) * 1434 (Stopped - Provider: Cherie Self, [place]) * 1720 (New Bag - Provider: Cherie Self, [place]) * 2120 (Stopped - Provider: Solo Huff RN) * 0142 (New Bag - Provider: Solo Huff RN) * 0542 (Stopped - Provider: Solo Huff RN) * 0937 (New Bag - Provider: Cherie Self, [place]) * 1414 (Stopped - Provider: Cherie Self RN) * 1753 (New Bag - Provider: Cherei Self RN) * 1930 (Paused - Provider: Jeanine Harry RN - Comment: loss of iv) * 2311 (Restarted - Provider: Jeanine Harry RN) * 0103 (Stopped - Provider: Jeanine Harry RN) * 0202 (New Bag - Provider: Jeanine Harry, [place]) * 0603 (Stopped - Provider: Jeanine Harry, [place]) * 1004 (Canceled Entry - Provider: Zahida Read, RN) sodium chloride flush 0.9 % injection 10 mL 10 mL, IntraCATHeter, 2 TIMES DAILY, First dose on Mon01/13/21 at 1445, Please flush abscess drain with 10 mL of saline BID and record I&Os. * 1448 (Given - Provider: Cherie Self, [place]) * 2227 (Given - Provider: Solo Huff RN - Comment: see MAR) * 0937 (Given - Provider: Cherie Self, [place]) * 2312 (Not Given - Provider: Jeanine Harry RN - Reason: Loss of IV access) * 0810 (Given - Provider: Zahida Read, RN) * 2100 (Due) sodium chloride flush 0.9 % injection [...] Midline or Central Line = 20 mL/lumen * 0833 (Given - Provider: Cherie Self RN) * 2051 (Given - Provider: Solo Huff RN) * 2052 (Given - Provider: Solo Huff RN - Comment: colton) * 09 (Not Given - Provider: Cherie Self RN - Reason: IV Fluid Infusing) * 2311 (Not Given - Provider: Jeanine Harry RN - Reason: Loss of IV access) * 08 (Given - Provider: Zahida Read RN) * 2099 (Due) Medication Order01/13/// 0.9 % sodium chloride infusion (CANCELED) IntraVENous, at 125 mL/hr, CONTINUOUS, Starting on Mon01/12/21 at 2200 * 2051 (New Bag - Provider: Solo Huff RN) Medication Order01/13/// 0.9 % sodium chloride infusion 25 mL, IntraVENous, at 100 mL/hr, PRN, If patient receiving piggyback infusions without ordered maintenance IV fluids or with frequent/long duration piggyback infusions, Starting on Mon01/12/21 at 2128, Administer at the same rate as the piggyback being infused. acetaminophen (TYLENOL) tablet 650 mg 650 mg, Oral, EVERY 6 HOURS PRN, Pain Mild (1-3), Fever, For temp greater than 100.4 F (38 C), Starting on Mon01/12/21 at 2128, Maximum dose of acetaminophen is 4000 mg from all sources in 24 hours. fentaNYL (SUBLIMAZE) injection (COMPLETED) ONCE PRN, Starting on Mon01/13/21 at 1347, For 1 dose * 1347 (Given - Provider: Guerline Esparza RN - Comment: for procedural discomfort) fentaNYL (SUBLIMAZE) injection (COMPLETED) ONCE PRN, Starting on Mon01/13/21 at 1354, For 1 dose * 1354 (Given - Provider: Guerline Esparza, [place] - Comment: for drain placement) ibuprofen (ADVIL;MOTRIN) [...] on Mon01/13/21 at 1346, For 1 dose * 1346 (Given - Provider: Guerline Esparza, [place] - Comment: for procedural anxiety) morphine (PF) injection 1 mg (CANCELED) 1 mg, IntraVENous, EVERY 4 HOURS PRN, Pain Severe (7-10), Starting on Mon01/13/21 at 0807, If oral and IV narcotics ordered, use oral first and only use IV if oral is ineffective or cannot take oral.Do Not give oral and IV within 1 hour of each other unless specifically ordered. * 0833 (Given - Provider: Cherie Self RN) * 2100 (Given - Provider: Solo Huff RN) * 1258 (Given - Provider: Cherie Self RN) * 1803 (Given - Provider: Cherie Self RN) * 2302 (Given - Provider: Jeanine Harry RN) ondansetron (ZOFRAN) injection 4 mg(Linked Group 1) 4 mg, IntraVENous, EVERY 6 HOURS PRN, Nausea, Vomiting, Starting on Mon01/12/21 at 2129, Administerif oral route cannot be used. ondansetron (ZOFRAN-ODT) [...] Lab Replacement Action 3.1 to 3.5 40 mEqORAL x 1 Under 3.1 Refer to IV [...] PRN, Per Potassium Replacement Protocol, Starting on Mon01/12/21at 2128, K Lab Replacement Action 2.7-3.0 10 [...] line use, Starting on Mon01/12/21 at 2128 Order Group 1: ondansetron (ZOFRAN-ODT) disintegrating tablet [...] Replacement Protocol, Starting on Mon01/12/21 at 2128
Maygive oral solution if patient unable to tolerate tablet K Lab Replacement Action 3.1-3.5 40 mEq ORAL x 1 &nb sp; &nb sp; 2.7-3. 0 Refer to IV replacement protocol & nbsp; & nbsp; <2.7 Refer to IV replacement protocol &nbsp ; Recheck potassium level in AM. Protocol not for use in patients with CrCl less than 30 mL/min.
Or potassium bicarb-citric acid (EFFER-K) effervescent tablet 40 mEqJump to med 40 mEq, Oral, PRN, Per Potassium Replacement Protocol, Starting on Mon01/12/21 at 2129
Administer as alternative if patient unable to tolerate oral tablet. K Lab & amp;nbsp; & amp;nbsp;Replacement Action 3.1 to 3.5 &am p;nbsp; 40 mEq ORAL x 1 Under 3.1 Refer to IV replacement protocol Recheck K level in AM. Protocol not f or use in patients with CrCl less than 30 mL/min. Do not chew or crush. Dissolve flavored tablets completely in 3 to 4 ounces of cold water; unflavored tablets may be dissolved in 3to 4 ounces of cold juice. Patient to sip slowly over a 5 to 10 minute period. May further dilute if GI adverse effects occur.
Or potassium chloride 10 mEq/100 mL IVPB (Peripheral Line)Jump to med 10 mEq, IntraVENous, at 100 mL/hr, PRN, Per Potassium Replacement Protocol, Starting on Mon01/12/212128
K Lab Replacement Action 2.7- 3.0 10 mEeq IVPB x 6 doses &nbs p; (60 mEq Total) <2.7 &a mp;nbsp; CALL PHYSICIAN and &a mp;nbsp; &a mp;nbsp; 10 mEq IVPB x 6 doses (60 mEq Total) Infuse at 10 mEq/hr. Repeat potassium lab 1 hour after final administration. Protocol not for use in patients with CrCl less than 30 mL/min.
Medication Order// sodium chloride flush 0.9 % injection 5-40 [...] non-viscous solutions use: Peripheral IV = 5 mLMidline or Central Line = 10 mL/lumen For viscous solutions (i.e. blood components, parenteral nutrition, contrast media, or after obtaining blood sample) use: Peripheral IV = 10 mL Midline or Central Line = 20 mL/lumen, PACU only * 0900 (Due) * 2100 (Due) Medication Order05/16/[id number]// 0.9 % sodium chloride infusion 25 mL, [...] LESS THAN 70 mg/dL, repeat treatment and re check blood glucose in 15 minutes x 2. [...] Mon05/18/22 at 0844, Until Mikayla 05/19/22 at 0844,Nausea, Secondary antiemetic therapy., PACU only ondansetron (ZOFRAN) [...] PRN, Starting on Mon05/18/22 at 0820, Intra-op * 0820 (Given - Provider: Beltran Hall MD) Order Group 1: dextrose bolus 10% 125 mLJump to med 125 mL, IntraVENous, at 937.5 mL/hr, Administer over 8 Minutes, PRN, Other, Blood glucose 40 - 69 mg/dL and patient NOT ALERT or NPO, Starting on Mon05/18/22 at 0844
Repeat blood glucose in15 minutes. If blood glucose remains LESS THAN 70 mg/dL, repeat treatment and recheck blood glucosein 15 minutes x 2. If using glycemic [...] provider if SBP is still greater than 180mmHg 10 minutes after second antihypertensive dose is administered.
PACU only Medication Order/ 0.9 % sodium chloride infusion 250 mL, IntraVENous, at 100 mL/hr, ONCE, On Mon04/16/24 at 1400, For 1 dose, To be used during procedure for placement of PICC. * 2129 (Stopped - Provider: Gwendolyn Bush RN - Comment: TPN infusing) atorvastatin (LIPITOR) 20 MG tablet Take 1 tablet by mouth daily, Disp-90 tablet, R-3, Normal buPROPion (WELLBUTRIN SR) 150 MG extended release tablet Take 1 tablet by mouth 2 times daily, Historical Med buPROPion (WELLBUTRIN SR) extended release tablet 150 mg 150 mg, Oral, 2 TIMES DAILY, First dose on Mon04/11/24 at 0900, Until Discontinued, Do not crush or break. Start when ok with Surgeon * 0908 (Given - Provider: Bri Sandoval RN) * 2223 (Not Given - Provider: Gwendolyn Bush RN - Reason: Pt NPO - Comment: NGT to suction) * 1017 (Held - Provider: Jillian Theodore RN - Reason: Pt NPO) * 1142 (Given - Provider: Jillian Theodore, [place]) * 214 (Given - Provider: Cherie Casillas RN) * 0902 (Given - Provider: Jillian Arambula RN) * 2100 (Due) cilostazol (PLETAL) 100 MG tablet Take 1 tablet by mouth 2 times daily, Historical Med clopidogrel (PLAVIX) 75 MG tablet TAKE 1 TABLET BY MOUTH EVERY DAY, Disp-90 tablet, R-3, Normal enoxaparin (LOVENOX) injection 40 mg 40 mg, SubCUTAneous, DAILY, First dose on Mon04/10/24 at 2100, Until Discontinued, Indication of Use: Prophylaxis-DVT/PE, Administer by deep subCUTAneous injection with pt lying down. Alternate injection sites on abdominal wall. Do not rub site after injection. Check with provider prior to any invasive procedure., On hold since Mon04/11/2024 at 0434 until manually unheld * 0900 (Automatically Held) * 0900 (Automatically Held) * 0900 (Automatically Held) lactated ringers bolus 1,000 mL (COMPLETED) 1,000 mL, IntraVENous, at 495.9 mL/hr, Administer over 121 Minutes, ONCE, On Mon04/20/24 at 0930, For 1 dose * 1100 (New Bag - Provider: Jillian Arambula, [place]) * 1314 (Stopped - Provider: Jillian Arambula RN) lactobacillus (CULTURELLE) capsule 1 capsule 1 capsule, Oral, 2 TIMES DAILY, First dose on Mon04/16/24 at 1345, Until Discontinued * 0908 (Given - Provider: Bri Sandoval, [place]) * 2224 (Not Given - Provider: Gwendolyn Bush RN - Reason: Other - Comment: NGT to suction) * 1017 (Held - Provider: Jillian Theodore RN - Reason: Pt NPO) * 1142 (Given - Provider: Jillian Theodore, [place]) * 214 (Given - Provider: Cherie Casillas RN) * 0902 (Given - Provider: Jillian Arambula RN) * 2100 (Due) metoprolol succinate (TOPROL XL) 25 MG extended release tablet TAKE 1 TABLET BY MOUTH EVERY DAY, Disp-90 tablet, R-1, Normal metoprolol succinate (TOPROL XL) extended release tablet 25 mg 25 mg, Oral, DAILY, First dose on Mon04/11/24 at 0900, Until Discontinued, Do not crush or chew.Hold for SBP < 115 or HR 60 or Below. Start when Ok with Surgeon * 0908 (Given - Provider: Bri Sandoval RN) * 1017 (Held - Provider: Jillian Theodore RN - Reason: Pt NPO) * 1142 (Given - Provider: Jillian Theodore, [place]) * 0902 (Given - Provider: Jillian Arambula, [place]) nicotine (NICODERM CQ) 14 MG/24HR 1 patch 1 patch, TransDERmal, Administer over 24 Hours, DAILY, First dose on Mon04/10/24 at 2100, Apply new patch to nonhairy, clean, dry skin on the upper body or upper outer arm. Rotate patch sites. Notify pharmacy if patient or provider prefers patch to be removed at bedtime and replaced in the morning. Hazardous Medication -- Refer to facility policy for handling and disposal. * 0909 (Patch Applied - Provider: Bri Sandoval RN) * 0826 (Patch Removed - Provider: Jillian Theodore RN) * 0828 (Patch Applied - Provider: Jillian Theodore RN) * 0732 (Patch Removed - Provider: Jillian Arambula RN) * 0902 (Patch Applied - Provider: Jillian Arambula RN) nystatin (MYCOSTATIN) [id number] UNIT/ML suspension 500,000 Units 500,000 Units (5 mL), Oral, 4 TIMES DAILY, 28 doses, First dose on Mon04/16/24 at 1700, Last dose on Mon04/23/24 at 1300, Swish about the mouth and retain in the mouth for as long as possible beforeswallowing. * 0909 (Given - Provider: Bri Sandoval RN) * 1148 (Not Given - Provider: Bri Sandoval RN - Reason: Nausea) * 1931 (Not Given - Provider: Bri Sandoval RN - Reason: Patient/family refused) * 2144 (Not Given - Provider: Gwendolyn Bush RN - Reason: Other) * 1017 (Held - Provider: Jillian Theodore RN - Reason: Pt NPO) * 1319 (Not Given - Provider: Jillian Theodore RN - Reason: Patient/family refused) * 1332 (Given - Provider: Jillian Theodore RN) * 1746 (Given - Provider: Jillian Theodore RN) * 2139 (Given - Provider: Cheire Casillas RN) * 0902 (Given - Provider: Jillian Arambula RN) * 1316 (Given - Provider: Jillian Arambula RN) * 1700 (Due) * 2100 (Due) pantoprazole (PROTONIX) 40 mg in sodium chloride (PF) 0.9 % 10 mL injection 40 mg, IntraVENous, DAILY, First dose on Mon04/12/24 at 2215, Reconstitute with 10 mL 0.9 % sodiumchloride and administer over at least 2 minutes. * 0910 (Given - Provider: Bri Sandoval RN) * 0826 (Given - Provider: Jillian Theodore RN) * 0902 (Given - Provider: Jillian Arambula RN) pantoprazole (PROTONIX) 40 MG tablet Take 1 tablet by mouth daily, Disp-90 tablet, R-3, Patient needs an appointment for more refills., Normal piperacillin-tazobactam (ZOSYN) 3,375 mg in sodium chloride 0.9 % 50 mL IVPB (mini-bag) 3,375 mg, IntraVENous, EVERY 8 HOURS, First dose on Mikayla 04/11/24 at 1615, Until Discontinued, Antimicrobial Indications: Intra-Abdominal Infection * 0143 (Stopped - Provider: Gwendolyn Bush RN) * 0541 (New Bag - Provider: Gwendolyn Bush RN) * 0945 (Stopped - Provider: Bri Sandoval RN) * 1446 (New Bag - Provider: Bri Sandoval RN) * 1846 (Rate/Dose Verify - Provider: Jillian Theodore RN) * 1850 (Stopped - Provider: Jillian Theodore RN) * 1931 (Stopped - Provider: Bri Sandoval RN) * 2226 (New Bag - Provider: Gwendolyn Bush RN) * 0202 (Stopped - Provider: Jillian Theodore RN) * 0205 (Stopped - Provider: Frieda Linares, [place]) * 0551 (New Bag - Provider: Frieda Linares RN) * 0950 (Stopped - Provider: Jillian Theodore RN) * 1000 (Stopped - Provider: Jillian Theodore RN) * 1427 (New Bag - Provider: Jillian Theodore RN) * 1748 (Rate/Dose Verify - Provider: Jillian Theodore RN) * 1750 (Stopped - Provider: Jillian Theodore RN) * 1835 (Stopped - Provider: Jillian Theodore RN) * 2134 (New Bag - Provider: Cherie Casillas RN) * 0142 (Rate/Dose Verify - Provider: Cherie Casillas RN) * 0149 (Stopped - Provider: Cherie Casillas RN) * 0200 (Stopped - Provider: Cherie Casillas RN) * 0638 (New Bag - Provider: Driss Reyes RN) * 1040 (Stopped - Provider: Jillian Arambula RN) * 1400 (Due - Provider: Jeannette Mckeon [facility]) * 2200 (Due - Provider: Jeannette Mckeon [facility]) piperacillin-tazobactam (ZOSYN) infusion Infuse 3.375 g intravenously every 6 hours CBC BMP weekly, CRP in 3 weeks, Fax results to [phone], Follow-up with Dr. Veronica Mariscal in 4 weeks at [phone], Disp-405 g, R-0, NO PRINT potassium chloride 20 mEq/50 mL IVPB (Central Line) (COMPLETED) 20 mEq, IntraVENous, EVERY HOUR, 3 doses, First dose on Mikayla 04/18/24 at 1200, Last dose on Mon04/18/24 at 1400, at 50 mL/hr, For Central Line administration only. Do not administer via peripheral lines. Patient must be on monitoring analyst if rate is greater than 10 mEq/hour. Potassium chloride doses are limited to a maximum of six consecutive doses before reassessment of laboratory values is needed. * 1230 (New Bag - Provider: Bri Sandoval RN) * 1330 (New Bag - Provider: Bri Sandoval RN) * 1433 (New Bag - Provider: Bri Sandoval RN) rOPINIRole (REQUIP) tablet 1 mg 1 mg, Oral, NIGHTLY, First dose on Mon04/20/24 at 0000, Until Discontinued * 2351 (Given - Provider: Cherie Casillas RN) * 2100 (Due) sodium chloride flush 0.9 % injection 5-40 mL 5-40 mL, IntraVENous, EVERY 12 HOURS SCHEDULED (2 times per day), First dose on Mon04/10/24 at 2100, Until Discontinued, For Line Patency: Peripheral IV = 5 mL; Midline or Central Line = 10 mL/lumen. If following IV push medication, administer flush at same rate as the IV push. Flush volume is determined by type of infusion therapy being given. For non-viscous solutions use: Peripheral IV = 5 mLMidline or Central Line = 10 mL/lumen For viscous solutions (i.e. blood components, parenteral nutrition, contrast media, or after obtaining blood sample) use: Peripheral IV = 10 mL Midline or Central Line = 20 mL/lumen * 0910 (Given - Provider: Bri Sandoval RN) * 2113 (Given - Provider: Gwendolyn Bush, [place]) * 0826 (Given - Provider: Jillian Theodore, [place]) * 2135 (Given - Provider: Cherie Casillas RN) * 0734 (Not Given - Provider: Jillian Arambula RN - Reason: IV Fluid Infusing) * 2100 (Due) sodium chloride flush 0.9 % injection 5-40 mL (CANCELED) 5-40 mL, IntraVENous, EVERY 12 HOURS SCHEDULED (2 times per day), First dose on Mikayla 04/11/24 at 2200, Until Discontinued, For Line Patency: Peripheral IV = 5 mL; Midline or Central Line = 10 mL/lumen. If following IV push medication, administer flush at same rate as the IV push. Flush volume is determined by type of infusion therapy being given. For non-viscous solutions use: Peripheral IV = 5 mLMidline or Central Line = 10 mL/lumen For viscous solutions (i.e. blood components, parenteral nutrition, contrast media, or after obtaining blood sample) use: Peripheral IV = 10 mL Midline or Central Line = 20 mL/lumen, PACU only * 0910 (Given - Provider: Bri Sandoval RN) * 2113 (Given - Provider: Gwendolyn Bush, [place]) sodium chloride flush 0.9 % injection 5-40 mL (CANCELED) 5-40 mL, IntraVENous, EVERY 12 HOURS SCHEDULED (2 times per day), First dose on e 04/16/24 at 2100, Until Discontinued, For Line Patency: Peripheral IV = 5 mL; Midline or Central Line = 10 mL/lumen. If following IV push medication, administer flush at same rate as the IV push. Flush volume is determined by type of infusion therapy being given. For non-viscous solutions use: Peripheral IV = 5 mLMidline or Central Line = 10 mL/lumen For viscous solutions (i.e. blood components, parenteral nutrition, contrast media, or after obtaining blood sample) use: Peripheral IV = 10 mL Midline or Central Line = 20 mL/lumen * 0910 (Given - Provider: Bri Sandoval, L[place]) * 2112 (Given - Provider: Gwendolyn Bush, [place]) tamsulosin (FLOMAX) capsule 0.4 mg 0.4 mg, Oral, DAILY, First dose on 04/13/24 at 1145, Until Discontinued, Do not crush or break.Give 30 minutes after a full meal to limit risk of orthostatic hypotension/falls. * 0910 (Given - Provider: Bri Sandoval, [place]) * 1017 (Held - Provider: Jillian Theodore RN - Reason: Pt NPO) * 1142 (Given - Provider: Jillian Theodore, [place]) * 0902 (Given - Provider: Jillian Arambula RN) Medication Order04/18/[id number]//[id number]/ 0.9 % sodium chloride infusion (CANCELED) IntraVENous, at 100 mL/hr, CONTINUOUS, Starting on Mikayla 04/18/24 at 1145 * 1215 (New Bag - Provider: Bri Sandoval RN) * 0048 (Stopped - Provider: Jillian Theodore RN) * 1242 (Stopped - Provider: Jillian Arambula, L[place]) PN-Adult 3 IN 1 Central Line (Standard) () IntraVENous, at 75 mL/hr, Administer over 24 Hours, CONTINUOUS TPN, Starting on Mikayla 04/18/24 at 2100, For 24 hours, Use 1.2 micro filter. Do not use administration sets and lines that contain DEHP. USE CAUTION IF PATIENT USING PROPOFOL. * 2117 (New Bag - Provider: Gwendolyn Bush RN) * 0543 (Paused - Provider: Jillian hTeodore RN) * 0545 (Paused - Provider: Jillian Theodore, [place]) * 0549 (Restarted - Provider: Jillian Theodore, [place]) * 0950 (Paused - Provider: Jillian Theodore, L[place]) * 1000 (Paused - Provider: Jillian Theodore, L[place]) * 1000 (Restarted - Provider: Jillian Theodore, RN) * 1748 (Rate/Dose Verify - Provider: Jillian Theodore RN) * 1831 (Rate/Dose Verify - Provider: Jillian Theodore, L[place]) * 1910 (Paused - Provider: Cherie Casillas RN) * 191 (Restarted - Provider: Cherie Casillas RN) * 2129 (Stopped - Provider: Cherie Casillas RN) * 2129 (Stopped - Provider: Cherie Casillas RN) * 2133 (Stopped - Provider: Cherie Casillas RN) PN-Adult 3 IN 1 Central Line (Standard) IntraVENous, at 75 mL/hr, Administer over 24 Hours, CONTINUOUS TPN, Starting on Mon04/19/24 at 2100, For 24 hours, Use 1.2 micro filter. Do not use administration sets and lines that contain DEHP. USE CAUTION IF PATIENT USING PROPOFOL. * 2134 (New Bag - Provider: Cherie Casillas RN) * 624 (Rate/Dose Verify - Provider: Cherie Casillas RN) * 2134 (Due: Stopped - Provider: Cherie Casillas RN) Medication Order04/18/ 0.9 % sodium chloride infusion IntraVENous, at 100 mL/hr, PRN, If patient receiving piggyback infusions without ordered maintenance IV fluids or with frequent/long duration piggyback infusions, Starting on Mikayla 04/11/24 at 2139, Administer at the same rate as the piggyback being infused., PACU only calcium carbonate (TUMS) chewable tablet 500 mg 500 mg, Oral, 3 TIMES DAILY PRN, Starting on Mon04/17/24 at 0559, Until Discontinued, Heartburn * 0435 (Given - Provider: Gwendolyn Bush RN) dextrose 10 % infusion IntraVENous, at 100 mL/hr, CONTINUOUS PRN, if blood glucose remains LESS THAN 70 mg/dL after 2 dextrose 10% intravenous boluses or administration of glucagon, Starting on Mon04/10/24 at 1554, If blood glucose fails to stabilize after 2 dextrose 10% intravenous boluses or glucagon administration, start dextrose 10% infusion at 100 mL/hour and repeat blood glucose at 30 and 60 minutes. If blood glucose is GREATER THAN 70 mg/dL after 60 minutes, discontinue dextrose 10% infusion. dextrose bolus 10% 125 mL(Linked Group 1) 125 mL, IntraVENous, at 937.5 mL/hr, Administer over 8 Minutes, PRN, Other, Blood glucose 40 - 69 mg/dL and patient NOT ALERT or NPO, Starting on Mon04/10/24 at 1554, Repeat blood glucose in 15 minutes. If blood glucose remains LESS THAN 70 mg/dL, repeat treatment and recheck blood glucose in 15 minutes x 2. If using glycemic management system, dose as instructed per system. If blood glucose remains LESS THAN 70 mg/dL after 2 intravenous boluses start dextrose 10% at 100 mL/hour and notify provider. dextrose bolus 10% 250 mL(Linked Group 1) 250 mL, IntraVENous, at 937.5 mL/hr, Administer over 16 Minutes, PRN, Other, Blood glucose LESS THAN 40 mg/dL and patient NOT ALERT or NPO, Starting on Mon04/10/24 at 1554, Repeat blood glucose in 15 minutes. If blood glucose remains LESS THAN 70 mg/dL, repeat treatment and recheck blood glucose in 15 minutes x 2. If using glycemic management system, dose as instructed per system. If blood glucose remains LESS THAN 70 mg/dL after 2 intravenous boluses start dextrose 10% at 100 mL/hour and notify provider. fluticasone (FLONASE) 50 MCG/ACT nasal spray 1 spray 1 spray, Each Nostril, DAILY PRN, Starting on Mon04/19/24 at 1228, Until Discontinued, Rhinitis, Pharmacists should automatically interchange the frequency from daily or QHS to Daily PRN when Flonase is ordered from a patient's home medication list. If it is not ordered from the home medication list, then do not change the ordered frequency. * 1331 (Given - Provider: Jillian Theodore RN) glucagon injection 1 mg 1 mg, SubCUTAneous, PRN, Starting on Mon04/10/24 at 1554, Until Discontinued, Low blood sugar, Blood glucose LESS THAN 70 mg/dL and patient NOT ALERT or NPO and does not have IV access., After administration, attempt intravenous access and start dextrose 10% at 100 mL/hr. Repeat blood glucose in 15 minutes x 2 and notify provider. glucose chewable tablet 16 g 16 g (4 tablet), Oral, PRN, Starting on Mon04/10/24 at 1554, Until Discontinued, Low blood sugar, If blood glucose is LESS THAN 70 mg/dL and patient is alert and tolerating oral. Give 4 tablets (16g) Repeat blood glucose in 15 minutes. If blood glucose is LESS THAN 70 mg/dL, repeat treatment and re check blood glucose in 15 minutes x 2. If blood glucose remains LESS THAN 70 mg/dL, notify provider. HYDROmorphone (DILAUDID) injection 0.5 mg(Linked Group 2) 0.5 mg, IntraVENous, EVERY 2 HOURS PRN, Starting on Mon04/10/24 at 1643, Until Discontinued, Pain Moderate (4-6), pain, If oral and IV narcotics ordered, use oral first and only use IV if oral is ineffective or cannot take oral. Do Not give oral and IV within 1 hour of each other unless specifically ordered. * 0401 (See Alternative - Provider: Gwendolyn Bush RN) * 2246 (Given - Provider: Gwendolyn Bush RN) HYDROmorphone HCl PF (DILAUDID) injection 1 mg(Linked Group 2) 1 mg, IntraVENous, EVERY 2 HOURS PRN, Starting on Mon04/10/24 at 1643, Until Discontinued, Pain Severe (7-10), pain, If oral and IV narcotics ordered, use oral first and only use IV if oral is ineffective or cannot take oral. Do Not give oral and IV within 1 hour of each other unless specifically ordered. * 0401 (Given - Provider: Gwendolyn Bush RN) * 2246 (See Alternative - Provider: Gwendolyn Bush RN) iopamidol (ISOVUE-370) 76 % injection 18 mL (COMPLETED) 18 mL, Other, IMG ONCE PRN, 1 dose, Starting on Mon04/19/24 at 0807, Until Mon04/19/24 at 0956, Other * 0956 (Given - Provider: Shahzad Mcmillan) iopamidol (ISOVUE-370) 76 % injection 75 mL (COMPLETED) 75 mL, IntraVENous, IMG ONCE PRN, 1 dose, Starting on Mon04/19/24 at 0807, Until Mon04/19/24 at 0956, Other * 0956 (Given - Provider: Shahzad Mcmillan) ipratropium 0.5 mg-albuterol 2.5 mg (DUONEB) nebulizer solution 1 Dose 1 Dose, Inhalation, EVERY 4 HOURS PRN, Starting on 04/15/24 at 1520, Until Discontinued, Shortness of Breath, Initiate RT Bronchodilator Protocol: Yes - Inpatient Protocol naloxone 0.4 mg in 10 mL sodium chloride syringe IntraVENous, PRN, Opioid Reversal, Starting on Mikayla 04/11/24 at 2139, PRN if respiratory rate is less than 6/min and patient is difficult to arouse then notify physician STAT. Mix 9 mL of sodium chloride 0.9% with 0.4 mg (1 mL) of naloxone (NARCAN) in 10 mL syringe. (Note: dilution is 0.04 mg/mL) Give 0.08 mg (2 mL of special dilution), slow IV push, repeat up to 0.4 mg (10 mL) or until patient isresponsive to physical stimulation and respiratory rate is equal to or greater than 6 breaths/min. Continue to observe, if no response within 3 minutes of administration of 0.4 mg (10 mL) total, repeat dose (0.4 mg as administered previously). Concentration 0.04 mg/mL, PACU only ondansetron (ZOFRAN) injection 4 mg(Linked Group 3) 4 mg, IntraVENous, EVERY 6 HOURS PRN, Starting on Mon04/10/24 at 1505, Until Discontinued, Nausea,Vomiting, Administer if oral route cannot be used. * 0400 (Given - Provider: Gwendolyn Bush RN) * 0826 (Given - Provider: Jillian Theodore RN) ondansetron (ZOFRAN-ODT) disintegrating tablet 4 mg(Linked Group 3) 4 mg, Oral, EVERY 8 HOURS PRN, Starting on Mon04/10/24 at 1505, Until Discontinued, Nausea, Vomiting * 0400 (See Alternative - Provider: Gwendolyn Bush RN) * 0826 (See Alternative - Provider: Jillian Theodore RN) oxyCODONE-acetaminophen (PERCOCET) 5-325 MG per tablet 1 tablet(Linked Group 4) 1 tablet, Oral, EVERY 4 HOURS PRN, Starting on Mon04/12/24 at 0906, Until Discontinued, Pain Moderate (4-6), Maximum dose of acetaminophen is 4000 mg from all sources in 24 hours. * 2140 (See Alternative - Provider: Cherie Casillas RN) oxyCODONE-acetaminophen (PERCOCET) 5-325 MG per tablet 2 tablet(Linked Group 4) 2 tablet, Oral, EVERY 4 HOURS PRN, Starting on Mon04/12/24 at 0906, Until Discontinued, Pain Severe (7-10), Maximum dose of acetaminophen is 4000 mg from all sources in 24 hours. * 2140 (Given - Provider: Cherie Casillas RN) potassium bicarb-citric acid (EFFER-K) effervescent tablet 40 mEq(Linked Group 5) 40 mEq, Oral, PRN, Starting on Mon04/17/24 at 0801, Until Discontinued, Per Potassium Replacement Protocol, Administer as alternative if patient unable to tolerate oral tablet. K Lab Replacement Action 3.1 to 3.5 40 mEq ORAL x 1 Under 3.1 Refer to IV replacement protocol Recheck K level in AM. Protocol not for use in patients with CrCl less than 30 mL/min. Do not chew or crush. Dissolve flavoredtablets completely in 3 to 4 ounces of cold water; unflavored tablets may be dissolved in 3 to 4 ounces of cold juice. Patient to sip slowly over a 5 to 10 minute period. May further dilute if GI adverse effects occur. * 0713 (See Alternative - Provider: Gwendolyn Bush RN) * 1222 (See Alternative - Provider: Bri Sandoval, LYNSEY) * 1222 (See Alternative - Provider: Jillian Theodore, LYNSEY) * 1227 (See Alternative - Provider: Jillian Theodore, LYNSEY) potassium chloride (KLOR-CON M) extended release tablet 40 mEq(Linked Group 5) 40 mEq, Oral, PRN, Starting on Mon04/17/24 at 0801, Until Discontinued, Per Potassium Replacement Protocol, May give alternative linked oral order (ordered as effervescent, packet, or liquid solution) if patient unable to tolerate tablet. K Lab Replacement Action 3.1 to 3.5 40 mEq ORAL x 1 Under 3.1 Refer to IV replacement protocol Recheck K level in AM. Protocol not for use in patients with CrCl less than 30 mL/min. Do not crush, chew, or suck on tablet. Tablet may also be broken in half and each half swallowed separately. * 0713 (Given - Provider: Gwendolyn Bush, LYNSEY) * 1222 (See Alternative - Provider: Bri Sandoval, LYNSEY) * 1222 (See Alternative - Provider: Jillian Theodore, LYNSEY) * 1227 (See Alternative - Provider: Jillian Theodore, LYNSEY) potassium chloride 10 mEq/100 mL IVPB (Peripheral Line)(Linked Group 5) 10 mEq, IntraVENous, PRN, Starting on Mon04/17/24 at 0801, Until Discontinued, at 100 mL/hr, Per Potassium Replacement Protocol, K Lab Replacement Action 2.7 to 3.0 10 mEq IVPB x 6 doses (60 mEq Total) Under 2.7 CALL PROVIDER and administer 10 mEq IVPB x 6 doses (60 mEq Total) Infuse at 10 mEq/hr.Repeat Potassium lab 1 hour after final administration. Protocol not for use in patients with CrCl less than 30 mL/min. * 0713 (See Alternative - Provider: Gwendolyn Bush, LYNSEY) * 1222 (Not Given - Provider: Bri Sandoval RN - Reason: Order parameters not met) * 1222 (Rate/Dose Change - Provider: Jillian Theodore, RN) * 1227 (Stopped - Provider: Jillian Theodore, RN) promethazine (PHENERGAN) injection 6.25 mg 6.25 mg, IntraMUSCular, EVERY 6 HOURS PRN, Starting on Mon04/11/24 at 0310, Until Discontinued, Nausea, Only to be given as IM injection. sodium chloride (OCEAN, BABY AYR) 0.65 % nasal spray 1 spray 1 spray, Each Nostril, PRN, Starting on Mon04/18/24 at 1007, Until Discontinued, Congestion sodium chloride flush 0.9 % injection 5-40 mL 5-40 mL, IntraVENous, PRN, Starting on Mon04/10/24 at 1505, Until Discontinued, Line Care, After every IV [...] Midline or Central Line = 20 mL/lumen sodium chloride flush 0.9 % injection 5-40 mL 5-40 mL, IntraVENous, PRN, Starting on Mikayla 04/11/24 at 2139, Until Discontinued, Line Care, After every IV [...] Central Line = 20 mL/lumen, PACU only sodium chloride flush 0.9 % injection 5-40 mL 5-40 mL, IntraVENous, PRN, Starting on Mon04/16/24 at 1330, Until Discontinued, Line Care, After every IV [...] Midline or Central Line = 20 mL/lumen sodium phosphate 15 mmol in sodium chloride 0.9 % 250 mL IVPB 15 mmol, IntraVENous, at 83.3 mL/hr, Administer over 180 Minutes, PRN, Phosphate IV Replacement, Starting on Mon04/13/24 at 0608, Phos level Replacement Action 1.5 to 2.7 mg/dL 15 mmol IVPB over 3 hours LESS than 1.5 mg/dL CALL PHYSICIAN and 15 mmol IVPB over 3 hours Repeat Phos level 1 hour afteradministration Protocol not for use in Patients with CrCl less than 30mL/min Medication [id number]/[id number]//[id number]/ baclofen (LIORESAL) 10 MG tablet TAKE 1 TABLET BY MOUTH THREE TIMES DAILY NEEDED for muscle pain, Historical Med gabapentin (NEURONTIN) 600 MG tablet TAKE 1 TABLET BY MOUTH THREE TIMES DAILY, Historical Med rOPINIRole (REQUIP) 1 MG tablet TAKE 1 TABLET BY MOUTH EVERY DAY 1 to 3 hours before bedtime, Historical Med Order Group 1: dextrose bolus 10% 125 mLJump to med 125 mL, IntraVENous, at 937.5 mL/hr, Administer over 8 Minutes, PRN, Other, Blood glucose 40 - 69 mg/dL and patient NOT ALERT or NPO, Starting on Mon04/10/24 at 1554, Repeat blood glucose in 15 minutes. If blood glucose remains LESS THAN 70 mg/dL, repeat treatment and recheck blood glucose in 15 minutes x 2. If using glycemic management system, dose as instructed per system. If blood glucose remains LESS THAN 70 mg/dL after 2 intravenous boluses start dextrose 10% at 100 mL/hour and notify provider. Or dextrose bolus 10% 250 mLJump to med 250 mL, IntraVENous, at 937.5 mL/hr, Administer over 16 Minutes, PRN, Other, Blood glucose LESS THAN 40 mg/dL and patient NOT ALERT or NPO, Starting on Mon04/10/24 at 1554, Repeat blood glucose in 15 minutes. If blood glucose remains LESS THAN 70 mg/dL, repeat treatment and recheck blood glucose in 15 minutes x 2. If using glycemic management system, dose as instructed per system. If blood glucose remains LESS THAN 70 mg/dL after 2 intravenous boluses start dextrose 10% at 100 mL/hour and notify provider. Group 2: HYDROmorphone (DILAUDID) injection 0.5 mgJump to med 0.5 mg, IntraVENous, EVERY 2 HOURS PRN, Starting on Mon04/10/24 at 1643, Until Discontinued, Pain Moderate (4-6), pain, If oral and IV narcotics ordered, use oral first and only use IV if oral is ineffective or cannot take oral. Do Not give oral and IV within 1 hour of each other unless specifically ordered. Or HYDROmorphone HCl PF (DILAUDID) injection 1 mgJump to med 1 mg, IntraVENous, EVERY 2 HOURS PRN, Starting on Mon04/10/24 at 1643, Until Discontinued, Pain Severe (7-10), pain, If oral and IV narcotics ordered, use oral first and only use IV if oral is ineffective or cannot take oral. Do Not give oral and IV within 1 hour of each other unless specifically ordered. Group 3: ondansetron (ZOFRAN-ODT) disintegrating tablet 4 mgJump to med 4 mg, Oral, EVERY 8 HOURS PRN, Starting on Mon04/10/24 at 1505, Until Discontinued, Nausea, Vomiting Or ondansetron (ZOFRAN) injection 4 mgJump to med 4 mg, IntraVENous, EVERY 6 HOURS PRN, Starting on Mon04/10/24 at 1505, Until Discontinued, Nausea,Vomiting, Administer if oral route cannot be used. Group 4: oxyCODONE-acetaminophen (PERCOCET) 5-325 MG per tablet 1 tabletJump to med 1 tablet, Oral, EVERY 4 HOURS PRN, Starting on Mon04/12/24 at 0906, Until Discontinued, Pain Moderate (4-6), Maximum dose of acetaminophen is 4000 mg from all sources in 24 hours. Or oxyCODONE-acetaminophen (PERCOCET) 5-325 MG per tablet 2 tabletJump to med 2 tablet, Oral, EVERY 4 HOURS PRN, Starting on Mon04/12/24 at 0906, Until Discontinued, Pain Severe (7-10), Maximum dose of acetaminophen is 4000 mg from all sources in 24 hours. Group 5: potassium chloride (KLOR-CON M) extended release tablet 40 mEqJump to med 40 mEq, Oral, PRN, Starting on Mon04/17/24 at 0801, Until Discontinued, Per Potassium Replacement Protocol, May give alternative linked oral order (ordered as effervescent, packet, or liquid solution) if patient unable to tolerate tablet. K Lab Replacement Action 3.1 to 3.5 40 mEq ORAL x 1 Under 3.1 Refer to IV replacement protocol Recheck K level in AM. Protocol not for use in patients with CrCl less than 30 mL/min. Do not crush, chew, or suck on tablet. Tablet may also be broken in half and each half swallowed separately. Or potassium bicarb-citric acid (EFFER-K) effervescent tablet 40 mEqJump to med 40 mEq, Oral, PRN, Starting on Mon04/17/24 at 0801, Until Discontinued, Per Potassium Replacement Protocol, Administer as alternative if patient unable to tolerate oral tablet. K Lab Replacement Action 3.1 to 3.5 40 mEq ORAL x 1 Under 3.1 Refer to IV replacement protocol Recheck K level in AM. Protocol not for use in patients with CrCl less than 30 mL/min. Do not chew or crush. Dissolve flavoredtablets completely in 3 to 4 ounces of cold water; unflavored tablets may be dissolved in 3 to 4 ounces of cold juice. Patient to sip slowly over a 5 to 10 minute period. May further dilute if GI adverse effects occur. Or potassium chloride 10 mEq/100 mL IVPB (Peripheral Line)Jump to med 10 mEq, IntraVENous, PRN, Starting on Mon04/17/24 at 0801, Until Discontinued, at 100 mL/hr, Per Potassium Replacement Protocol, K Lab Replacement Action 2.7 to 3.0 10 mEq IVPB x 6 doses (60 mEq Total) Under 2.7 CALL PROVIDER and administer 10 mEq IVPB x 6 doses (60 mEq Total) Infuse at 10 mEq/hr.Repeat Potassium lab 1 hour after final administration. Protocol not for use in patients with CrCl less than 30 mL/min. Medication Order//09/2023 buPROPion (WELLBUTRIN SR) extended release tablet 150 mg 150 mg, Oral, 2 TIMES DAILY, First dose (after last modification) on 04/20/24 at 2100, Until Discontinued, Do not crush or break. Start when ok with Surgeon * 0804 (Given - Provider: Lianne Greene RN) * 2022 (Given - Provider: Vera Briceno RN) * 0910 (Given - Provider: Mona Parmar RN) * 2027 (Given - Provider: Neema Aguirre RN) * 0837 (Given - Provider: Delilah Altamirano, RN) * 2100 (Due) clopidogrel (PLAVIX) tablet 75 mg 75 mg, Oral, DAILY, First dose (after last reorder) on Mon04/20/24 at 1445, Until Discontinued * 0805 (Given - Provider: Lianne Greene RN) * 0910 (Given - Provider: Mona Parmar, LYNSEY) * 0914 (Given - Provider: Delilah Altamirano, RN) coenzyme Q10 capsule 100 mg 100 mg, Oral, DAILY, First dose on Mon04/22/24 at 0915, Until Discontinued * 0805 (Given - Provider: Lianne Greene RN) * 0910 (Given - Provider: Mona Parmar, LYNSEY) * 0838 (Given - Provider: Delilah Altamirano, RN) cyanocobalamin injection 1,000 mcg 1,000 mcg, IntraMUSCular, WEEKLY, First dose on Mon04/22/24 at 0915, Until Discontinued enoxaparin (LOVENOX) injection 40 mg 40 mg, SubCUTAneous, DAILY, First dose (after last modification) on Mon04/21/24 at 0900, Until Discontinued, Indication of Use: Prophylaxis-DVT/PE, Administer by deep subCUTAneous injection with pt lying down. Alternate injection sites on abdominal wall. Do not rub site after injection. Check with provider prior to any invasive procedure. * 0803 (Given - Provider: Lianne Greene RN) * 0910 (Given - Provider: Mona Parmar, RN) * 0914 (Given - Provider: Delilah Altamirano, RN) ertapenem (INVanz) 1,000 mg in sodium chloride 0.9 % 50 mL IVPB (mini-bag) (COMPLETED) 1,000 mg, IntraVENous, ONCE, 1 dose, On Mikayla 04/25/24 at 1200, Antimicrobial Indications: Other, Other Abx Indication: ., Incompatible with dextrose containing solutions. * 1405 (New Bag - Provider: Delilah Altamirano RN) * 1432 (Stopped - Provider: Delilah Altamirano RN) gabapentin (NEURONTIN) capsule 600 mg 600 mg, Oral, 3 TIMES DAILY, First dose (after last reorder) on 04/20/24 at 1445, Until Discontinued * 0805 (Given - Provider: Lianne Greene RN) * 1532 (Given - Provider: Lianne Greene RN) * 2023 (Given - Provider: Vera Briceno, LYNSEY) * 0910 (Given - Provider: Mona Parmar, LYNSEY) * 1541 (Given - Provider: Mona Parmar, LYNSEY) * 2027 (Given - Provider: Neema Aguirre RN - Comment: patient request) * 0837 (Given - Provider: Delilah Altamirano RN) * 1359 (Given - Provider: Delilah Altamirano, RN) * 2100 (Due) lactobacillus (CULTURELLE) capsule 1 capsule 1 capsule, Oral, 2 TIMES DAILY, First dose (after last modification) on 04/20/24 at 2100, UntilDiscontinued * 0805 (Given - Provider: Lianne Greene RN) * 202 (Given - Provider: Vera Briceno, LYNSEY) * 0910 (Given - Provider: Mona Parmar, LYNSEY) * 202 (Given - Provider: Neema Aguirre, LYNSEY) * 0838 (Given - Provider: Delilah Altamirano, RN) * 2100 (Due) lidocaine 4 % external patch 3 patch 3 patch, TransDERmal, Administer over 24 Hours, DAILY, First dose on 04/22/24 at 0915, Substituted for Lidocaine 5% Patch. * 0806 (Not Given - Provider: Lianne Greene RN - Reason: Patient/family refused) * 0937 (Held - Provider: Mona Parmar RN - Reason: Patient/family refused) * 0838 (Not Given - Provider: Delilah Altamirano, RN - Reason: Patient/family refused) metoprolol succinate (TOPROL XL) extended release tablet 25 mg 25 mg, Oral, DAILY, First dose (after last reorder) on 04/20/24 at 1445, Until Discontinued, Donot crush or chew. * 0804 (Not Given - Provider: Lianne Greene RN - Reason: Order parameters not met) * 0910 (Given - Provider: Mona Parmar, LYNSEY) * 0838 (Given - Provider: Delilah Altamirano, RN) miconazole (MICOTIN) 2 % powder Topical, 2 TIMES DAILY, First dose on 04/22/24 at 1145, Apply to To back rash. Substituted for Nystatin (MICOSTATIN) powder. * 0808 (Given - Provider: Lianne Greene RN) * 2025 (Given - Provider: Vera Briceno, LYNSEY) * 0938 (Given - Provider: Mona Parmar, LYNSEY) * 2037 (Given - Provider: Neema Aguirre, LYNSEY) * 0826 (Not Given - Provider: Delilah Altamirano, RN - Reason: Patient/family refused) * 2100 (Due) nicotine (NICODERM CQ) 14 MG/24HR 1 patch 1 patch, TransDERmal, Administer over 24 Hours, DAILY, First dose (after last modification) on 04/21/24 at 0900, Apply new patch to nonhairy, clean, dry skin on the upper body or upper outer arm. Rotate patch sites. Notify pharmacy if patient or provider prefers patch to be removed at bedtime and replaced in the morning. Hazardous Medication -- Refer to facility policy for handling and disposal. * 0802 (Patch Removed - Provider: Lianne Greene RN) * 0809 (Patch Applied - Provider: Lianne Greene RN) * 0910 (Patch Removed - Provider: Mona Parmar RN) * 0938 (Patch Applied - Provider: Mona Parmar RN) * 0907 (Patch Removed - Provider: Delilah Altamirano, RN) * 0908 (Patch Applied - Provider: Delilah Altamirano, RN) nystatin (MYCOSTATIN) 131307 UNIT/ML suspension 500,000 Units () 500,000 Units (5 mL), Oral, 4 TIMES DAILY, 12 doses, First dose (after last modification) on Mon04/20/24 at 2100, Last dose on Mon04/23/24 at 1700, Swish about the mouth and retain in the mouth for as long as possible before swallowing. * 0805 (Given - Provider: Lianne Greene RN) * 1324 (Not Given - Provider: Lianne Greene RN - Reason: Patient not available) * 153 (Given - Provider: Lianne Greene RN) oxymetazoline (AFRIN) 0.05 % nasal spray 2 spray 2 spray, Each Nostril, 2 TIMES DAILY, 6 doses, First dose on Mon04/22/24 at 0930, Last dose on Mon04/24/24 at 2100 * 0808 (Given - Provider: Lianne Greene RN) * 2024 (Given - Provider: Vera Briceno RN) * 0939 (Given - Provider: Mona Parmar RN) * 2037 (Given - Provider: Neema Aguirre RN) pantoprazole (PROTONIX) tablet 40 mg 40 mg, Oral, DAILY, First dose (after last reorder) on 04/20/24 at 1445, Until Discontinued, Donot crush or break. * 0805 (Given - Provider: Lianne Greene RN) * 0910 (Given - Provider: Mona Parmar, LYNSEY) * 0838 (Given - Provider: Delilah Altamirano, RN) piperacillin-tazobactam (ZOSYN) 3,375 mg in sodium chloride 0.9 % 50 mL IVPB (mini-bag) 3,375 mg, IntraVENous, EVERY 6 HOURS, First dose (after last modification) on Mon04/21/24 at 2045, Until Discontinued, Antimicrobial Indications: Intra- Abdominal Infection * 0245 (New Bag - Provider: Wendy Anderson, LYNSEY) * 0315 (Stopped - Provider: Wendy Anderson, RN) * 0825 (New Bag - Provider: Lianne Greene RN) * 0913 (Stopped - Provider: Lianne Greene RN) * 154 (New Bag - Provider: Lianne Greene RN) * 161 (Stopped - Provider: Lianne Greene RN) * 2027 (New Bag - Provider: Vera Briceno RN) * 2100 (Stopped - Provider: Vera Briceno RN) * 0303 (New Bag - Provider: Vera Briceno RN) * 0336 (Stopped - Provider: Vera Briceno RN) * 0933 (New Bag - Provider: Mona Parmar, LYNSEY) * 1053 (Stopped - Provider: Mona Parmar RN) * 154 (New Bag - Provider: Mona Parmar RN) * 161 (Stopped - Provider: Mona Parmar RN) * 2037 (New Bag - Provider: Neema Aguirre RN) * 211 (Stopped - Provider: Neema Aguirre RN) * 0240 (New Bag - Provider: Neema Aguirre RN) * 0313 (Stopped - Provider: Neema Aguirre RN) * 0913 (New Bag - Provider: Delilah Altamirano, LYNSEY) * 0943 (Stopped - Provider: Delilah Altamirano RN) * 1445 (Due) * 2044 (Due) rOPINIRole (REQUIP) tablet 1 mg 1 mg, Oral, NIGHTLY, First dose (after last modification) on 04/20/24 at 2100, Until Discontinued * 2022 (Given - Provider: Vera Briceno RN) * 2027 (Given - Provider: Neema Aguirre RN - Comment: patient request) * 2099 (Due) tamsulosin (FLOMAX) capsule 0.4 mg 0.4 mg, Oral, DAILY, First dose (after last modification) on 04/21/24 at 0900, Until Discontinued, Do not crush or break. Give 30 minutes after a full meal to limit risk of orthostatic hypotension/falls. * 0816 (Given - Provider: Lianne Greene RN) * 0910 (Given - Provider: Mona Parmar RN) * 0837 (Given - Provider: Delilah Altamirano RN) Vitamin D (CHOLECALCIFEROL) tablet 2,000 Units 2,000 Units, Oral, DAILY WITH DINNER, First dose on 04/22/24 at 1730, Until Discontinued, Labeling may look different. 25 [id number]=[id number] Units. Please double check dosages. * 1532 (Given - Provider: Lianne Greene RN) * 1541 (Given - Provider: Mona Parmar RN) * 1730 (Due) Medication Order//09/2023 0.9 % sodium chloride infusion IntraVENous, at 100 mL/hr, PRN, If patient receiving piggyback infusions without ordered maintenance IV fluids or with frequent/long duration piggyback infusions, Starting on 04/20/24 at 1421, Administer at the same rate as the piggyback being infused., PACU only acetaminophen (TYLENOL) tablet 650 mg 650 mg, Oral, EVERY 4 HOURS PRN, Starting on 04/21/24 at 1229, Until Discontinued, Pain Mild (1-3), Pain Moderate (4-6), Fever, Maximum dose of acetaminophen is 3000 mg from all sources in 24 hours. Discontinue at discharge. * 0805 (Given - Provider: Lianne Greene RN) Benzocaine-Menthol (CEPACOL) 1 lozenge 1 lozenge, Oral, EVERY 2 HOURS PRN, Starting on 04/21/24 at 1734, Until Discontinued, Sore Throat bisacodyl (DULCOLAX) suppository 10 mg 10 mg, Rectal, DAILY PRN, Starting on 04/21/24 at 1229, Until Discontinued, Constipation, First line therapy for constipation calcium carbonate (TUMS) chewable tablet 500 mg 500 mg, Oral, 3 TIMES DAILY PRN, Starting on 04/20/24 at 1421, Until Discontinued, Heartburn dextrose 10 % infusion IntraVENous, at 100 mL/hr, CONTINUOUS PRN, if blood glucose remains LESS THAN 70 mg/dL after 2 dextrose 10% intravenous boluses or administration of glucagon, Starting on 04/20/24 at 1421, If blood glucose fails to stabilize after 2 dextrose 10% intravenous boluses or glucagon administration, start dextrose 10% infusion at 100 mL/hour and repeat blood glucose at 30 and 60 minutes. If blood glucose is GREATER THAN 70 mg/dL after 60 minutes, discontinue dextrose 10% infusion. dextrose bolus 10% 125 mL(Linked Group 1) 125 mL, IntraVENous, at 937.5 mL/hr, Administer over 8 Minutes, PRN, Other, Blood glucose 40 - 69 mg/dL and patient NOT ALERT or NPO, Starting on 04/20/24 at 1421, Repeat blood glucose in 15 minutes. If blood glucose remains LESS THAN 70 mg/dL, repeat treatment and recheck blood glucose in 15 minutes x 2. If using glycemic management system, dose as instructed per system. If blood glucose remains LESS THAN 70 mg/dL after 2 intravenous boluses start dextrose 10% at 100 mL/hour and notify provider. dextrose bolus 10% 250 mL(Linked Group 1) 250 mL, IntraVENous, at 937.5 mL/hr, Administer over 16 Minutes, PRN, Other, Blood glucose LESS THAN 40 mg/dL and patient NOT ALERT or NPO, Starting on 04/20/24 at 1421, Repeat blood glucose in 15 minutes. If blood glucose remains LESS THAN 70 mg/dL, repeat treatment and recheck blood glucose in 15 minutes x 2. If using glycemic management system, dose as instructed per system. If blood glucose remains LESS THAN 70 mg/dL after 2 intravenous boluses start dextrose 10% at 100 mL/hour and notify provider. fluticasone (FLONASE) 50 MCG/ACT nasal spray 1 spray 1 spray, Each Nostril, DAILY PRN, Starting on 04/20/24 at 1421, Until Discontinued, Rhinitis, Pharmacists should automatically interchange the frequency from daily or QHS to Daily PRN when Flonase is ordered from a patient's home medication list. If it is not ordered from the home medication list, then do not change the ordered frequency. glucagon injection 1 mg 1 mg, SubCUTAneous, PRN, Starting on 04/20/24 at 1421, Until Discontinued, Low blood sugar, Blood glucose LESS THAN 70 mg/dL and patient NOT ALERT or NPO and does not have IV access., After administration, attempt intravenous access and start dextrose 10% at 100 mL/hr. Repeat blood glucose in 15 minutes x 2 and notify provider. Reconstitute powder for injection by adding 1 mL of metal polisher and buffer apprentice-supplied sterile diluent or sterile water for injection to a vial containing 1 mg of the drug, to provide solutions containing 1 mg/mL. Shake vial gently to dissolve. glucose chewable tablet 16 g 16 g (4 tablet), Oral, PRN, Starting on 04/20/24 at 1421, Until Discontinued, Low blood sugar, If blood glucose is LESS THAN 70 mg/dL and patient is alert and tolerating oral. Give 4 tablets (16g) Repeat blood glucose in 15 minutes. If blood glucose is LESS THAN 70 mg/dL, repeat treatment and re check blood glucose in 15 minutes x 2. If blood glucose remains LESS THAN 70 mg/dL, notify provider. ipratropium 0.5 mg-albuterol 2.5 mg (DUONEB) nebulizer solution 1 Dose 1 Dose, Inhalation, EVERY 4 HOURS PRN, Starting on 04/20/24 at 1421, Until Discontinued, Shortness of Breath, Initiate RT Bronchodilator Protocol: Yes - Inpatient Protocol naloxone 0.4 mg in 10 mL sodium chloride syringe IntraVENous, PRN, Opioid Reversal, Starting on 04/20/24 at 1421, PRN if respiratory rate is less than 6/min and patient is difficult to arouse then notify physician STAT. Mix 9 mL of sodium chloride 0.9% with 0.4 mg (1 mL) of naloxone (NARCAN) in 10 mL syringe. (Note: dilution is 0.04 mg/mL) Give 0.08 mg (2 mL of special dilution), slow IV push, repeat up to 0.4 mg (10 mL) or until patient isresponsive to physical stimulation and respiratory rate is equal to or greater than 6 breaths/min. Continue to observe, if no response within 3 minutes of administration of 0.4 mg (10 mL) total, repeat dose (0.4 mg as administered previously). Concentration 0.04 mg/mL, PACU only ondansetron (ZOFRAN) injection 4 mg(Linked Group 2) 4 mg, IntraVENous, EVERY 6 HOURS PRN, Starting on 04/20/24 at 1421, Until Discontinued, Nausea,Vomiting, Administer if oral route cannot be used. ondansetron (ZOFRAN-ODT) disintegrating tablet 4 mg(Linked Group 2) 4 mg, Oral, EVERY 8 HOURS PRN, Starting on 04/20/24 at 1421, Until Discontinued, Nausea, Vomiting oxyCODONE-acetaminophen (PERCOCET) 5-325 MG per tablet 1 tablet(Linked Group 3) 1 tablet, Oral, EVERY 4 HOURS PRN, Starting on 04/20/24 at 1421, Until Discontinued, Pain Moderate (4-6), Maximum dose of acetaminophen is 4000 mg from all sources in 24 hours. * 2023 (Given - Provider: Vera Briceno, LYNSEY) oxyCODONE-acetaminophen (PERCOCET) 5-325 MG per tablet 2 tablet(Linked Group 3) 2 tablet, Oral, EVERY 4 HOURS PRN, Starting on 04/20/24 at 1421, Until Discontinued, Pain Severe (7-10), Maximum dose of acetaminophen is 4000 mg from all sources in 24 hours. * 2023 (See Alternative - Provider: Vera Briceno, LYNSEY) promethazine (PHENERGAN) injection 6.25 mg 6.25 mg, IntraMUSCular, EVERY 6 HOURS PRN, Starting on 04/20/24 at 1421, Until Discontinued, Nausea, Only to be given as IM injection. sodium chloride (OCEAN, BABY AYR) 0.65 % nasal spray 1 spray 1 spray, Each Nostril, PRN, Starting on 04/20/24 at 1421, Until Discontinued, Congestion sodium chloride flush 0.9 % injection 5-40 mL 5-40 mL, IntraVENous, PRN, Starting on 04/20/24 at 1421, Until Discontinued, Line Care, After every IV [...] Midline or Central Line = 20 mL/lumen sodium phosphate (FLEET) rectal enema 1 enema 1 enema, Rectal, DAILY PRN, Starting on 04/21/24 at 1229, Until Discontinued, Constipation, Second line therapy for constipation, After 24 hours, if no result from first line PRN therapy, give second line therapy in combination with first line therapy. Order Group 1: dextrose bolus 10% 125 mLJump to med 125 mL, IntraVENous, at 937.5 mL/hr, Administer over 8 Minutes, PRN, Other, Blood glucose 40 - 69 mg/dL and patient NOT ALERT or NPO, Starting on 04/20/24 at 1421, Repeat blood glucose in 15 minutes. If blood glucose remains LESS THAN 70 mg/dL, repeat treatment and recheck blood glucose in 15 minutes x 2. If using glycemic management system, dose as instructed per system. If blood glucose remains LESS THAN 70 mg/dL after 2 intravenous boluses start dextrose 10% at 100 mL/hour and notify provider. Or dextrose bolus 10% 250 mLJump to med 250 mL, IntraVENous, at 937.5 mL/hr, Administer over 16 Minutes, PRN, Other, Blood glucose LESS THAN 40 mg/dL and patient NOT ALERT or NPO, Starting on 04/20/24 at 1421, Repeat blood glucose in 15 minutes. If blood glucose remains LESS THAN 70 mg/dL, repeat treatment and recheck blood glucose in 15 minutes x 2. If using glycemic management system, dose as instructed per system. If blood glucose remains LESS THAN 70 mg/dL after 2 intravenous boluses start dextrose 10% at 100 mL/hour and notify provider. Group 2: ondansetron (ZOFRAN-ODT) disintegrating tablet 4 mgJump to med 4 mg, Oral, EVERY 8 HOURS PRN, Starting on 04/20/24 at 1421, Until Discontinued, Nausea, Vomiting Or ondansetron (ZOFRAN) injection 4 mgJump to med 4 mg, IntraVENous, EVERY 6 HOURS PRN, Starting on 04/20/24 at 1421, Until Discontinued, Nausea,Vomiting, Administer if oral route cannot be used. Group 3: oxyCODONE-acetaminophen (PERCOCET) 5-325 MG per tablet 1 tabletJump to med 1 tablet, Oral, EVERY 4 HOURS PRN, Starting on 04/20/24 at 1421, Until Discontinued, Pain Moderate (4-6), Maximum dose of acetaminophen is 4000 mg from all sources in 24 hours. Or oxyCODONE-acetaminophen (PERCOCET) 5-325 MG per tablet 2 tabletJump to med 2 tablet, Oral, EVERY 4 HOURS PRN, Starting on 04/20/24 at 1421, Until Discontinued, Pain Severe (7-10), Maximum dose of acetaminophen is 4000 mg from all sources in 24 hours. Medication Order/ sodium chloride flush 0.9 % injection 5-40 mL 5-40 mL, IntraVENous, EVERY 12 HOURS SCHEDULED (2 times per day), First dose on Mon06/10/24 at 0900, Until Discontinued, For Line Patency: Peripheral IV = 5 mL; Midline or Central Line = 10 mL/lumen.If following IV push medication, administer flush at same rate as the IV push. Flush volume is determined by type of infusion therapy being given. For non-viscous solutions use: Peripheral IV = 5 mL Midline or Central Line = 10 mL/lumen For viscous solutions (i.e. blood components, parenteral nutrition, contrast media, or after obtaining blood sample) use: Peripheral IV = 10 mL Midline or CentralLine = 20 mL/lumen, PACU only * 0900 (Due) * 2100 (Due) Medication Order/ 0.9 % sodium chloride infusion (CANCELED) IntraVENous, at 5-250 mL/hr, PRN, if patient receiving piggyback infusions and maintenance fluids are not ordered, Starting on Mon06/10/24 at 0617, For piggyback infusion, administer at same rate as piggyback for a total of 25 mL. Enter 25 mL into dose field and piggyback rate into rate field of order. If piggyback is infusing at a rate less than 100 mL/hr, enter 25 mL into dose field and 100 mL/hr into rate field of order., Pre-op (day of surgery) * 0646 (New Bag - Provider: Marek Joseph RN) * 0726 (NoRateChange - Provider: Deandra Medina APRN - [employer]ENTAL CLERK) 0.9 % sodium chloride infusion IntraVENous, at 100 mL/hr, PRN, If patient receiving piggyback infusions without ordered maintenance IV fluids or with frequent/long duration piggyback infusions, Starting on Mon06/10/24 at 0757, Administer at the same rate as the piggyback being infused., PACU only dextrose 10 % infusion IntraVENous, at 100 mL/hr, CONTINUOUS PRN, if blood glucose remains LESS THAN 70 mg/dL after 2 dextrose 10% intravenous boluses or administration of glucagon, Starting on Mon06/10/24 at 0757, If blood glucose fails to stabilize after [...] patient NOT ALERT or NPO, Starting on Mon06/10/24 at 0757, Repeat blood glucose in 15 minutes. If [...] patient NOT ALERT or NPO, Starting on Mon06/10/24 at 0757, Repeat blood glucose in 15minutes. If blood glucose remains LESS THAN 70 mg/dL, repeat treatment and recheck blood glucose in15 minutes x 2. If using glycemic management system, dose as instructed per system. If blood glucose remains LESS THAN 70 mg/dL after 2 intravenous boluses start dextrose 10% at 100 mL/hour and notify provider., PACU only glucagon injection 1 mg 1 mg, SubCUTAneous, PRN, Starting on Mon06/10/24 at 0757, Until Discontinued, Low blood sugar, Blood glucose LESS THAN 70 mg/dL and patient NOT ALERT or NPO and does not have IV access., After administration, attempt intravenous access and start dextrose 10% at 100 mL/hr. Repeat blood glucose in 15minutes x 2 and notify provider. Reconstitute powder for injection by adding 1 mL of metal polisher and buffer apprentice-supplied sterile diluent or sterile water for injection to a vial containing 1 mg of the drug, to provide solutions containing 1 mg/mL. Shake vial gently to dissolve., PACU only glucose chewable tablet 16 g 16 g (4 tablet), Oral, PRN, Starting on Mon06/10/24 at 0757, Until Discontinued, Low blood sugar, If blood glucose is LESS THAN 70 mg/dL and patient is alert and tolerating oral. Give 4 tablets (16g)Repeat blood glucose in 15 minutes. If blood glucose is LESS THAN 70 mg/dL, repeat treatment and recheck blood glucose in 15 minutes x 2. If blood glucose remains LESS THAN 70 mg/dL, notify provider., PACU only hydrALAZINE (APRESOLINE) injection 10 mg(Linked Group 2) 10 mg, IntraVENous, EVERY 15 MIN PRN, 2 doses, Starting on Mon06/10/24 at 0757, Until Discontinued,for SBP greater than 180 mmHg for 2 consecutive measurements taken from different sites, If heart rate is greater than 60 bpm, hold hydralazine and use labetalol if ordered, otherwise contact provider. Inform provider if SBP is still greater than 180 mmHg 10 minutes after second antihypertensive dose is administered., PACU only ipratropium 0.5 mg-albuterol 2.5 mg (DUONEB) nebulizer solution 1 Dose 1 Dose, Inhalation, ONCE PRN, 1 dose, Starting on Mon06/10/24 at 0757, Until Mon06/11/24 at 0757, Shortness of Breath, Initiate RT Bronchodilator Protocol: No, PACU only labetalol (NORMODYNE;TRANDATE) injection 10 mg(Linked Group 2) 10 mg, IntraVENous, EVERY 15 MIN PRN, 2 doses, Starting on Mon06/10/24 at 0757, Until Discontinued,High Blood Pressure, for SBP greater than 180 mmHg for 2 consecutive measurements taken from different sites., If heart rate is 60 bpm or less hold labetalol and use hydralazine if ordered, otherwisecontact provider. Inform provider if SBP is still greater than 180 mmHg, 10 minutes after second antihypertensive dose is administered., PACU only metoclopramide (REGLAN) injection 10 mg 10 mg, IntraVENous, ONCE PRN, 1 dose, Starting on Mon06/10/24 at 0757, Until Mon06/11/24 at 0757, Nausea, Secondary antiemetic therapy., PACU only naloxone 0.4 mg in 10 mL sodium chloride syringe IntraVENous, PRN, Opioid Reversal, Starting on Mon06/10/24 at 0757, PRN if respiratory rate is lessthan 6/min and patient is difficult to arouse then notify physician STAT. Mix 9 mL of sodium chloride 0.9% with 0.4 mg (1 mL) of naloxone (NARCAN) in 10 mL syringe. (Note: dilution is 0.04 mg/mL) Give 0.08 mg (2 mL of special dilution), slow IV push, repeat up to 0.4 mg (10 mL) or until patient is responsive to physical stimulation and respiratory rate is equal to or greater than 6 breaths/min. Continue to observe, if no response within 3 minutes of administration of 0.4 mg (10 mL) total, repeat dose (0.4 mg as administered previously). Concentration 0.04 mg/mL, PACU only ondansetron (ZOFRAN) injection 4 mg 4 mg, IntraVENous, ONCE PRN, 1 dose, Starting on Mon06/10/24 at 0757, Until Mon06/11/24 at 0757, Nausea, Initial antiemetic therapy., PACU only sodium chloride flush 0.9 % injection 5-40 mL 5-40 mL, IntraVENous, PRN, Starting on Mon06/10/24 at 0757, Until Discontinued, Line Care, After every IV [...] For viscous solutions (i.e. blood components, parenteral nutrition,contrast media, or after obtaining blood sample) use: Peripheral IV = 10 mL Midline or Central Line= 20 mL/lumen, PACU only Order Group 1: dextrose bolus 10% 125 mLJump to med 125 mL, IntraVENous, at 937.5 mL/hr, Administer over 8 Minutes, PRN, Other, Blood glucose 40 - 69 mg/dL and patient NOT ALERT or NPO, Starting on Mon06/10/24 at 0757, Repeat blood glucose in 15 minutes. If blood glucose remains LESS THAN 70 mg/dL, repeat treatment and recheck blood glucose in 15 minutes x 2. If using glycemic management system, dose as instructed per system. If blood glucose remains LESS THAN 70 mg/dL after 2 intravenous boluses start dextrose 10% at 100 mL/hour and notify provider., PACU only Or dextrose bolus 10% 250 mLJump to med 250 mL, IntraVENous, at 937.5 mL/hr, Administer over 16 Minutes, PRN, Other, Blood glucose LESS THAN 40 mg/dL and patient NOT ALERT or NPO, Starting on Mon06/10/24 at 0757, Repeat blood glucose in 15minutes. If blood glucose remains LESS THAN 70 mg/dL, repeat treatment and recheck blood glucose in15 minutes x 2. If using glycemic management system, dose as instructed per system. If blood glucose remains LESS THAN 70 mg/dL after 2 intravenous boluses start dextrose 10% at 100 mL/hour and notify provider., PACU only Group 2: labetalol (NORMODYNE;TRANDATE) injection 10 mgJump to med 10 mg, IntraVENous, EVERY 15 MIN PRN, 2 doses, Starting on Mon06/10/24 at 0757, Until Discontinued,High Blood Pressure, for SBP greater than 180 mmHg for 2 consecutive measurements taken from different sites., If heart rate is 60 bpm or less hold labetalol and use hydralazine if ordered, otherwisecontact provider. Inform provider if SBP is still greater than 180 mmHg, 10 minutes after second antihypertensive dose is administered., PACU only Or hydrALAZINE (APRESOLINE) injection 10 mgJump to med 10 mg, IntraVENous, EVERY 15 MIN PRN, 2 doses, Starting on Mon06/10/24 at 0757, Until Discontinued,for SBP greater than 180 mmHg for 2 consecutive measurements taken from different sites, If heart rate is greater than 60 bpm, hold hydralazine and use labetalol if ordered, otherwise contact provider. Inform provider if SBP is still greater than 180 mmHg 10 minutes after second antihypertensive dose is administered., PACU only Medication Order//04/2025 buPROPion (WELLBUTRIN SR) extended release tablet 150 mg 150 mg, Oral, 2 TIMES DAILY, First dose on Mon07/01/24 at 1415, Until Discontinued, Do not crush orbreak. * 1557 (Not Given - Provider: Chavo Lopez RN - Reason: Pt NPO) * 2125 (Given - Provider: Deborah Galeano RN) * 0821 (Given - Provider: Chavo Lopez RN) * 2118 (Given - Provider: Deborah Galeano RN) * 09 (Given - Provider: Chavo Lopez RN) * 2100 (Due) ceFAZolin (ANCEF) 2,000 mg in sterile water 20 mL IV syringe (COMPLETED)(Linked Group 1) 2,000 mg, IntraVENous, PANEL SEWER TO O.R., 1 dose, On Mon07/01/24 at 0730, Antimicrobial Indications: Surgical Prophylaxis, Administer within 1 hour prior to incision. Administer over 5 mins. Reconstitute 2 g vial with 20 mL Sterile Water. Withdraw entire contents., Pre-op (day of surgery) * 0849 (New Bag - Provider: Daksha Dodd [facility]) enoxaparin (LOVENOX) injection 40 mg 40 mg, SubCUTAneous, DAILY, First dose on Mon07/01/24 at 1415, Until Discontinued, Indication of Use: Prophylaxis-DVT/PE, Administer by deep subCUTAneous injection with pt lying down. Alternate injection sites on abdominal wall. Do not rub site after injection. Check with provider prior to any invasive procedure., Post-op * 2126 (Given - Provider: Deborah Galeano RN) * 2119 (Given - Provider: Deborah Galeano RN) * 0903 (Not Given - Provider: Chaov Lopez RN - Reason: Other) gabapentin (NEURONTIN) capsule 600 mg 600 mg, Oral, 3 TIMES DAILY, First dose on Mon07/01/24 at 1415, Until Discontinued * 1557 (Not Given - Provider: Chavo Lopez RN - Reason: Pt NPO) * 212 (Given - Provider: Deborah Galeano RN) * 0820 (Given - Provider: Chavo Lopez RN) * 1420 (Given - Provider: Chavo Lopez RN) * 2118 (Given - Provider: Deborah Galeano RN) * 09 (Given - Provider: Chavo Lopez RN) * 1400 (Due) * 2100 (Due) metoprolol succinate (TOPROL XL) extended release tablet 25 mg 25 mg, Oral, DAILY, First dose on Mon07/01/24 at 1415, Until Discontinued, Do not crush or chew. * 1557 (Not Given - Provider: Chavo Lopez RN - Reason: Pt NPO) * 0820 (Given - Provider: Chavo Lopez RN) * 0901 (Given - Provider: Chavo Lopez RN) nicotine (NICODERM CQ) 14 MG/24HR 1 patch 1 patch, TransDERmal, Administer over 24 Hours, DAILY, First dose on Mon07/01/24 at 1415, Apply newpatch to nonhairy, clean, dry skin on the upper body or upper outer arm. Rotate patch sites. Notifypharmacy if patient or provider prefers patch to be removed at bedtime and replaced in the morning.Hazardous Medication -- Refer to facility policy for handling and disposal. * 1450 (Patch Applied - Provider: Chavo Lopez RN) * 0809 (Patch Removed - Provider: Chavo Lopez RN) * 0820 (Patch Applied - Provider: Chavo Lopez RN) * 0902 (Patch Applied - Provider: Chavo Lopez RN) * 0903 (Patch Removed - Provider: Chavo Lopez RN) rOPINIRole (REQUIP) tablet 0.5 mg (CANCELED) 0.5 mg, Oral, NIGHTLY, First dose on Mon07/01/24 at 2100, Until Discontinued * 2125 (Given - Provider: Deborah Galeano, LYNSEY) rOPINIRole (REQUIP) tablet 2 mg 2 mg, Oral, NIGHTLY, First dose (after last modification) on Mon07/02/24 at 2100, Until Discontinued * 2118 (Given - Provider: Deborah Galeano, RN) * 2099 (Due) sodium chloride flush 0.9 % injection 5-40 mL 5-40 mL, IntraVENous, EVERY 12 HOURS SCHEDULED (2 times per day), First dose on Mon07/01/24 at 2100, Until Discontinued, For Line Patency: Peripheral IV = 5 mL; Midline or Central Line = 10 mL/lumen.If following IV push medication, administer flush at same rate as the IV push. Flush volume is determined by type of infusion therapy being given. For non-viscous solutions use: Peripheral IV = 5 mL Midline or Central Line = 10 mL/lumen For viscous solutions (i.e. blood components, parenteral nutrition, contrast media, or after obtaining blood sample) use: Peripheral IV = 10 mL Midline or CentralLine = 20 mL/lumen, Post-op * 2128 (Given - Provider: Deborah Galeano RN) * 0821 (Given - Provider: Chavo Lopez RN) * 1256 (Given - Provider: Chavo Lopez RN) * 2120 (Given - Provider: Deborah Galeano RN) * 0900 (Given - Provider: Chavo Lopez RN) * 2100 (Due) tamsulosin (FLOMAX) capsule 0.4 mg 0.4 mg, Oral, DAILY, First dose on Mon07/01/24 at 1415, Until Discontinued, Do not crush or break. Give 30 minutes after a full meal to limit risk of orthostatic hypotension/falls. * 1557 (Not Given - Provider: Chavo Lopez RN - Reason: Pt NPO) * 0821 (Given - Provider: Chavo Lopez RN) * 0901 (Given - Provider: Chavo Lopez RN) Medication Order/ 0.9 % sodium chloride infusion (CANCELED) IntraVENous, at 50 mL/hr, CONTINUOUS, Starting on Mon07/01/24 at 1415, Post-op * 1421 (New Bag - Provider: Chavo Lopez RN) * 1422 (Rate/Dose Verify - Provider: Chavo Lopez RN) * 1423 (Stopped - Provider: Chavo Lopez RN) * 1424 (Stopped - Provider: Chavo Lopez RN) * 1426 (New Bag - Provider: Chavo Lopez RN) * 1427 (Rate/Dose Verify - Provider: Chavo Lopez RN) * 1428 (Paused - Provider: Chavo Lopez RN) * 1428 (Paused - Provider: Chavo Lopez RN) * 1444 (Restarted - Provider: Chavo Lopez RN) * 1752 (Rate/Dose Verify - Provider: Chavo Lopez RN) * 0522 (Rate/Dose Verify - Provider: Deborah Galeano RN) * 0820 (New Bag - Provider: Chavo Lopez RN) Medication Order/ 0.9 % sodium chloride infusion (CANCELED) IntraVENous, at 5-250 mL/hr, PRN, if patient receiving piggyback infusions and maintenance fluids are not ordered, Starting on Mon07/01/24 at 0705, For piggyback infusion, administer at same rate as piggyback for a total of 25 mL. Enter 25 mL into dose field and piggyback rate into rate field of order. If piggyback is infusing at a rate less than 100 mL/hr, enter 25 mL into dose field and 100 mL/hr into rate field of order., Pre-op (day of surgery) * 0812 (New Bag - Provider: Maulik Garcia RN) * 0846 (NoRateChange - Provider: LEIGH Braswell) 0.9 % sodium chloride infusion IntraVENous, at 5-250 mL/hr, PRN, if patient receiving piggyback infusions and maintenance fluids are not ordered, Starting on Mon07/01/24 at 1358, For piggyback infusion, administer at same rate as piggyback for a total of 25 mL. Enter 25 mL into dose field and piggyback rate into rate field of order. If piggyback is infusing at a rate less than 100 mL/hr, enter 25 mL into dose field and 100 mL/hr into rate field of order., Post-op HYDROmorphone (DILAUDID) injection 0.5 mg (CANCELED) 0.5 mg, IntraVENous, EVERY 10 MIN PRN, 4 doses, Starting on Mon07/01/24 at 0953, Until Mon07/01/24 at 1354, Pain Severe (7-10), Phase I - Initial therapy for severe pain., PACU only * 1010 (Given - Provider: Marek Joseph RN) * 1149 (Given - Provider: Marek Joseph RN) HYDROmorphone (DILAUDID) injection 0.5 mg(Linked Group 2) 0.5 mg, IntraVENous, EVERY 3 HOURS PRN, 20 doses, Starting on Mon07/01/24 at 1358, Until Discontinued, Pain Moderate (4-6), pain, If oral and IV narcotics ordered, use oral first and only use IV if oral is ineffective or cannot take oral. Do Not give oral and IV within 1 hour of each other unless specifically ordered. * 1436 (Given - Provider: Chavo Lopez RN) * 2127 (Given - Provider: Deborah Galeano RN) * 0222 (Given - Provider: Deborah Galeano RN) * 0632 (Given - Provider: Deborah Galeano RN) * 1256 (Given - Provider: Chavo Lopez RN) * 1910 (Given - Provider: Chavo Lopez RN) * 0144 (Given - Provider: Deborah Galeano, RN) HYDROmorphone HCl PF (DILAUDID) injection 1 mg(Linked Group 2) 1 mg, IntraVENous, EVERY 3 HOURS PRN, 20 doses, Starting on 07/01/24 at 1358, Until Discontinued, Pain Severe (7-10), pain, If oral and IV narcotics ordered, use oral first and only use IV if oralis ineffective or cannot take oral. Do Not give oral and IV within 1 hour of each other unless specifically ordered. * 1436 (See Alternative - Provider: Chavo Lopez RN) * 2126 (See Alternative - Provider: Deborah Galeano RN) * 0222 (See Alternative - Provider: Deborah Galeano RN) * 0632 (See Alternative - Provider: Deborah Galeano RN) * 1255 (See Alternative - Provider: Chavo Lopez RN) * 1910 (See Alternative - Provider: Chavo Lopez RN) * 0144 (See Alternative - Provider: Deborah Galeano RN) ketorolac (TORADOL) injection 30 mg 30 mg, IntraVENous, EVERY 6 HOURS PRN, Starting on 07/01/24 at 1358, Until 07/06/24 at 1357, Pain Moderate (4-6), Do not administer for more than 5 days. * 1436 (Given - Provider: Chavo Lopez RN) * 2126 (Given - Provider: Deborah Galeano RN) * 0632 (Given - Provider: Deborah Galeano RN) * 125 (Given - Provider: Chavo Lopez, LYNSEY) * 1910 (Given - Provider: Chavo Lopez, RN) * 0144 (Given - Provider: Deborah Galeano, RN) ondansetron (ZOFRAN) injection 4 mg(Linked Group 3) 4 mg, IntraVENous, EVERY 6 HOURS PRN, Starting on 07/01/24 at 1358, Until Discontinued, Nausea, Vomiting, Administer if oral route cannot be used., Post-op ondansetron (ZOFRAN-ODT) disintegrating tablet 4 mg(Linked Group 3) 4 mg, Oral, EVERY 8 HOURS PRN, Starting on Mon07/01/24 at 1358, Until Discontinued, Nausea, Vomiting, Post-op oxyCODONE-acetaminophen (PERCOCET) 5-325 MG per tablet 1 tablet(Linked Group 4) 1 tablet, Oral, EVERY 4 HOURS PRN, 20 doses, Starting on Mon07/03/24 at 0729, Until Discontinued, Pain Moderate (4-6), Maximum dose of acetaminophen is 4000 mg from all sources in 24 hours. * 0901 (See Alternative - Provider: Chavo Lopez RN) * 1251 (See Alternative - Provider: Chavo Lopez RN) oxyCODONE-acetaminophen (PERCOCET) 5-325 MG per tablet 2 tablet(Linked Group 4) 2 tablet, Oral, EVERY 4 HOURS PRN, 20 doses, Starting on Mon07/03/24 at 0729, Until Discontinued, Pain Severe (7-10), Maximum dose of acetaminophen is 4000 mg from all sources in 24 hours. * 0901 (Given - Provider: Chavo Lopez RN) * 1251 (Given - Provider: Chavo Lopez RN) sod chloride IRR soln 0.9 % irrigation (CANCELED) CONTINUOUS PRN, Starting on Mon07/01/24 at 0900, Intra-op * 0900 (New Bag - Provider: Beltran Hall MD - Comment: PRN on sterile field) sodium chloride flush 0.9 % injection 5-40 mL 5-40 mL, IntraVENous, PRN, Starting on Mon07/01/24 at 1358, Until Discontinued, Line Care, After every IV [...] For viscous solutions (i.e. blood components, parenteral nutrition,contrast media, or after obtaining blood sample) use: Peripheral IV = 10 mL Midline or Central Line= 20 mL/lumen, Post-op Order Group 1: ceFAZolin (ANCEF) 2,000 mg in sterile water 20 mL IV syringe (COMPLETED)Jump to med 2,000 mg, IntraVENous, PANEL SEWER TO O.R., 1 dose, On Mon07/01/24 at 0730, Antimicrobial Indications: Surgical Prophylaxis, Administer within 1 hour prior to incision. Administer over 5 mins. Reconstitute 2 g vial with 20 mL Sterile Water. Withdraw entire contents., Pre-op (day of surgery) And metroNIDAZOLE (FLAGYL) 500 mg in 0.9% NaCl 100 mL IVPB premix (CANCELED) 500 mg, IntraVENous, PANEL SEWER TO O.R., 1 dose, On Mon07/01/24 at 0730, Antimicrobial Indications: Surgical Prophylaxis, Administer within 1 hour prior to incision., Pre-op (day of surgery) Group 2: HYDROmorphone (DILAUDID) injection 0.5 mgJump to med 0.5 mg, IntraVENous, EVERY 3 HOURS PRN, 20 doses, Starting on Mon07/01/24 at 1358, Until Discontinued, Pain Moderate (4-6), pain, If oral and IV narcotics ordered, use oral first and only use IV if oral is ineffective or cannot take oral. Do Not give oral and IV within 1 hour of each other unless specifically ordered. Or HYDROmorphone HCl PF (DILAUDID) injection 1 mgJump to med 1 mg, IntraVENous, EVERY 3 HOURS PRN, 20 doses, Starting on Mon07/01/24 at 1358, Until Discontinued, Pain Severe (7-10), pain, If oral and IV narcotics ordered, use oral first and only use IV if oralis ineffective or cannot take oral. Do Not give oral and IV within 1 hour of each other unless specifically ordered. Group 3: ondansetron (ZOFRAN-ODT) disintegrating tablet 4 mgJump to med 4 mg, Oral, EVERY 8 HOURS PRN, Starting on Mon07/01/24 at 1358, Until Discontinued, Nausea, Vomiting, Post-op Or ondansetron (ZOFRAN) injection 4 mgJump to med 4 mg, IntraVENous, EVERY 6 HOURS PRN, Starting on Mon07/01/24 at 1358, Until Discontinued, Nausea, Vomiting, Administer if oral route cannot be used., Post-op Group 4: oxyCODONE-acetaminophen (PERCOCET) 5-325 MG per tablet 1 tabletJump to med 1 tablet, Oral, EVERY 4 HOURS PRN, 20 doses, Starting on Mon07/03/24 at 0729, Until Discontinued, Pain Moderate (4-6), Maximum dose of acetaminophen is 4000 mg from all sources in 24 hours. Or oxyCODONE-acetaminophen (PERCOCET) 5-325 MG per tablet 2 tabletJump to med 2 tablet, Oral, EVERY 4 HOURS PRN, 20 doses, Starting on Mon07/03/24 at 0729, Until Discontinued, Pain Severe (7-10), Maximum dose of acetaminophen is 4000 mg from all sources in 24 hours. Care Teams (unrecognized sec tion and content) Team MemberRelationshipSpecialtyStart DateEnd Date Magalie Henning, APPLICATION ADMINISTRATOR - PROCUREMENT BUYER [address] [place] [address] PCP - GeneralFamily Medicine07/28/21Te MemberRelationshipSpecialtyStart DateEnd Date Magalie Henning, APPLICATION ADMINISTRATOR - PROCUREMENT BUYER [address] [place] [address] PCP - GeneralFamily Medicine07/28/21 MemberRelationshipSpecialtyStart DateEnd Date Magalie Henning, APPLICATION ADMINISTRATOR - PROCUREMENT BUYER [address] [place] [address] PCP - GeneralFamily Medicine07/28/21Team MemberRelationshipSpecialtyStart DateEnd Date Magalie Henning, APPLICATION ADMINISTRATOR - PROCUREMENT BUYER [address] [place] [address] PCP - GeneralFamily Medicine07/28/21 MemberRelationshipSpecialtyStart DateEnd Date Henry Freitas MD [address] [place] [id number] PCP - GeneralFamily Gzbguwqp33/28/22Te MemberRelationshipSpecialtyStart Date End Date Tristen, Sherie, APPLICATION ADMINISTRATOR - PROCUREMENT BUYER [address] [place] [address] PCP - General3/7/23Team MemberRelationshipSpecialtyStart DateEnd Date Sherie Ramon, APPLICATION ADMINISTRATOR - PROCUREMENT BUYER PCP - General3/7/23Team MemberRelationshipSpecialtyStart DateEnd Date TristenSherie leong, APPLICATION ADMINISTRATOR - PROCUREMENT BUYER PCP - General3/7/23Team MemberRelationshipSpecialtyStart DateEnd Date Sherie Ramon, APPLICATION ADMINISTRATOR - PROCUREMENT BUYER PCP - General3/7/23Team MemberRelationshipSpecialtyStart DateEnd Date TristenSherie leong, APPLICATION ADMINISTRATOR - PROCUREMENT BUYER PCP - General3/7/23Team MemberRelationshipSpecialtyStart DateEnd Date TristenSherie leong, APPLICATION ADMINISTRATOR - PROCUREMENT BUYER PCP - General3/7/23Team MemberRelationshipSpecialtyStart DateEnd Date TristenSherie leong, APPLICATION ADMINISTRATOR - PROCUREMENT BUYER PCP - General3/7/23Team MemberRelationshipSpecialtyStart DateEnd Date Sherie Ramon, APPLICATION ADMINISTRATOR - PROCUREMENT BUYER PCP - General3/7/23Team MemberRelationshipSpecialtyStart DateEnd Date Sherie Ramon, APPLICATION ADMINISTRATOR - PROCUREMENT BUYER [facility]07/26/22Team MemberRelationshipSpecialtyStart DateEnd Date Sherie Ramon APRN [facility]07/26/22Te MemberRelationshipSpecialtyStart DateEnd Date Sherie Ramon APRN [facility]07/26/22Team MemberRelationshipSpecialtyStart DateEnd Date Sherie Ramon APRN [facility]07/26/22Te MemberRelationshipSpecialtyStart DateEnd Date [facility]07/26/22Te MemberRelationshipSpecialtyStart DateEnd Date Sherie Ramon APRN [facility]07/26/22Te MemberRelationshipSpecialtyStart DateEnd Date Sherie Ramon APRN [facility]07/26/22Te MemberRelationshipSpecialtyStart DateEnd Date Sherie Ramon [facility]07/26/22 Source Comments (unrecognize d section and content) In the event this informatio n is protected by the Federal Confidentiality of Alcohol and Drug Abuse Patient Records regulations: The Federal rules restrict any use of the information to criminally investigate or prosecute any alcohol or drug abuse patient.[facility]igh[facility] the event this information is protected by the Federal Confidentiality of Alcohol and Drug Abuse Patient Records regulations: The Federal rules restrict any use of the information to criminally investigate or prosecute any alcohol or drug abuse patient.[facility]ighIn the event this information is protected by the Federal Confidentiality of Alcohol and Drug Abuse Patient Records regulations: The Federal rules restrict any use of the information to criminally investigate or prosecute any alcohol or drug abuse patient.[facility]ighIn the event this information is protected by the Federal Confidentiality of Alcohol and Drug Abuse Patient Records regulations: The Federal rules restrict any use of the information to criminally investigate or prosecute any alcohol or drug abuse patient.[facility] FOR RECORDS PERTAINING TO PATIENTS WHO ARE [...] BE BASED ON THE PRIMARY CLINICAL RECORDS. [facility]. provides no warranty or guarantee of the accuracy or completeness of information in this document.
[2025-03-24 08:20] VITALS: BP 137/85; PULSE 66; TEMP 37; O2SAT 96
[2025-03-24 08:56] VITALS: BP 158/87; BP 164/87; PULSE 65; PULSE 66; O2SAT 96; O2SAT 97
[2025-03-24] MEDS: 0.9 % SODIUM CHLORIDE 10 ML SYRINGE - SALINE FLUSH INJ (08:57)
[2025-03-24] MEDS: BUPIVACAINE HCL 0.25% PF 25 MG/10 ML VIAL INJ (08:57)
[2025-03-24] MEDS: IOHEXOL 240 MG/ML - 10 ML VIAL 24 MG INJ (08:57)
[2025-03-24] MEDS: LIDOCAINE HCL 2% 400 MG/20 ML MDV INJ (08:57)
[2025-03-24] MEDS: METHYLPREDNISOLONE ACETATE 80 MG/ML VIAL INJ (08:57)
--- NOTE | 2025-03-24 09:00 | P.ON_ITS ---
Date of procedure: 03/24/25 Pre-op diagnosis: Pain due to lumbar stenosis with neurogenic claudication Post-op diagnosis: same as pre-op Procedure: Procedure: Left L4-5, L5-S1 transforaminal epidural steroid injection Medications: Bupivacaine 0.25% 2cc, lidocaine 2% 1cc, depomedrol 80mg The patient was seen and examined in the preoperative holding area.? Informed consent was obtained and placed on the chart.? Patient was brought to the medical procedure unit and placed in the prone position where a timeout was completed verifying the correct patient, procedure site, position, and planned special equipment using sterile aseptic technique.? Under direct fluoroscopic visualization a 25-gauge Quincke tipped spinal needle was advanced to the designated neural foramen where contrast dye was injected to show adequate spread.? The needle was inserted at level left L4-5. There was no evidence of vascular or adverse uptake.? Epidural spread was appreciated.? The above- mentioned injectate was then placed in a 1.5 mL aliquot preceded by negative aspiration.? The needle was removed. The needle was inserted and the procedure repeated at level left L5-S1.? The surgery site was covered.? Patient was taken to the postprocedural recovery area and monitored for an appropriate length of time before found suitable for discharge in the accompaniment of a responsible adult. Anesthesia: Local Surgeon: Erum Ye Pathology: none sent Condition: stable Disposition: no change
== END 2025-03-24 09:04 | disposition home or self-care (01) ==
PROVIDERS: Visit Provider Anesthesiology
DX: M48.062 Spinal stenosis, lumbar region with neurogenic claudication (principal); M54.50 Low back pain, unspecified
CPT/HCPCS: 64483; 64484; J0665; J1010; Q9966

== ENCOUNTER 2025-04-03 09:21 | Outpatient (OUT) | payer MEDICARE, SELFPAY ==
--- OUTSIDE RECORDS SUMMARY | 2025-04-03 09:24 | XMS_ITS | Clinical Summary ---
Author Organization [facility] Address [address] [place] [address] Care Team Providers Care Corporate Associate Name Role Phone Amilcar Yan MD Unavailable [phone] Laci Dominique MD Unavailable Allergies No [...] by mouth.Active Active Problems ProblemNoted DateDiagnosed DateActinic liblwuvbc28/02/2025KI (acute kidney injury)10/21/20242802Armlmolthiltri22/02/2025Intermittent claudication of left lower extremity due to gbaotuzzofnptbn52/02/2025enign essential HTN10/21/2024MI 27.0-27.9,adult10/21/2024History of diverticular abscess of colon10/21/2024 History of reversal of lvfibsziu09/02/5764Bruwkhcyxktk94/02/2025Hypokalemia 10/21/2024Labile blood /02/2025Lumbar degenerative disc disease 10/21/2024Lumbar ihmcpvvrxneqe35/02/2025Multiple wjbgjoa4010/21/2024Overweight 10/21/2024PAD (peripheral artery disease)10/21/2024Restless leg syndrome 10/21/2024S/P colon ybfyxssgf39/02/2025S/P terbdgkqptl90/02/2025Sacroiliitis 10/21/2024Embolism of iliac smctly8910/21/2024Kidney bnsfpx0009/13/2024Ileostomy llzpntsrmsi92/20/7058Yteoibaahot90/06/2024Oral cfziizbgfsu99/05/2024rimary zzcmtwammzsx36/03/2024Ileostomy in place04/22/2024ost-op pain04/22/2024Impaired mobility and activities of daily eftpyc7504/16/20240967Elvelcrcsrgm66/26/2024 Diverticulitis of sigmoid colon04/16/2024ry skin iknttgitnw79/26/2024Multiple joint pain04/16/2024heumatoid iohirsrph70/26/2950Ixrdj99/25/2024Urinary qgjfvimcf10/25/2024Status post rbckmgsxhbe45/22/2024Hemorrhagic shock04/11/2024 Perforation and abscess of large intestine concurrent with and due to vkcujrkgmmgxlg14/01/2024Spondylosis of lumbar spine02/26/2024History of colonic cvdetu1602/13/2024 Overview (10/21/2024): Problem List Diagnosis Replacement Utility 02/20/2024 Aneurysm of infrarenal abdominal aorta08/23/2022theroscler of [place] artery of both legs with intermit ofdhzagiinkz33/04/2023ack pain, hkmdxawvtpm82/04/2023 Herniated lumbar intervertebral disc08/23/2022Thrombosis of arteries of lower yivdozxmj20/04/2023Thrombosis of iliac mhscog2708/23/2022Mixed hyperlipidemia 03/17/20221702Topycski71/26/2022Peripheral vascular efsjkuk6612/28/2021moker 12/28/2021AA (abdominal aortic aneurysm) without yjtntzm6306/03/2021Thrombosis of both common femoral luelhvbp22/07/2022Iliac artery stenosis, left05/28/2021 Atherosclerosis of [place] arteries of extremities with intermittent claudication, left leg03/16/2021dema of left lower leg due to peripheral venous uppzbkbattisl07/26/2021hronic midline low back pain with bilateral sciatica 01/13/2021olonic diverticular dqbnxhx7801/13/2021Tobacco use01/13/2021cute yfuqqcemyiugkc34/24/2021Ureteral /27/2021Nicotine ecytwmypjm34/09/2017 Overview (10/21/2024): Comment on above: Added secondary [...] of your partner or ex-partner?Patient unable to rinvbz3111/12/2024Emotionally AbusedNot on file11/12/2024Physically AbusedNot on file11/12/2024Sexually AbusedNot on file11/12/2024PHQ-2AnswerDate RecordedPatient Health Questionnaire-2 Lxcqt860Sex and Gender InformationValueDate RecordedSex Assigned at BirthNot on fileLegal SexMale 09/13/2024 11:04 AM EDTGender IdentityNot on fileSexual OrientationNot on file Last Filed Vital Signs Vital SignReadingTime TakenCommentsBlood Aaobkepu183/70011/12/2024 1:10 PM EDT Vaoll794411/12/2024 1:10 PM KCZAtbncpewyeu70.5 ??C (97.7 ??F)11/12/2024 1:10 PM EDTRespiratory Rate--Oxygen Saturation--Inhaled Oxygen Concentration--Hyoksc92.6 kg (180 lb)11/12/2024 1:10 PM ZGRRuxkpi049.8 cm (5' 10 )11/12/2024 1:10 PM EDT Body Mass Index25.8311/12/2024 1:10 PM EDT Plan of Treatment Health MaintenanceDue DateLast DoneCommentsCT Jwzgcauvlmga39/12/1960FIT-DNA 1959FIT1959FOBT1959Medicare Annual Wellness (AWV)1960 Medicare Initial Physical (IPPE)1960 9670Ieqpgdnkuofhf40/12/1960Zoster Vaccines (1 of 2)09/30/2009Meningococcal B Vaccine (2 of 5 - Increased Risk Bexsero 3- dose series)Meningococcal Vaccine (2 - Risk 2-dose series) neumococcal Vaccine: 50+ Years (2 of 2 - PPSV23, PCV20, or PCV21)4COVID-19 Vaccine (3 - season)2025 09/04/2020, 08/07/2020Influenza Vaccine (#1), 04/12/2024, 04/11/2019Depression Tnejdxywj92/24/42434311/12/2024Fall Risk Icudhvoyv68/24/2026 11/12/2024dult Csfbhpc70/06/2021, 03/24/20178677Bxfjqctlpwj78/20/2035 06/10/2024olorectal Cancer Hahgiccyz75/20/2035HIB GmwknnapTmxvkimnl42/22/2024 HPV VaccinesAged OutNo longer eligible based on patient's age to complete this topicIPV VaccinesAged OutNo longer eligible based on patient's age to complete this topicRotavirus VaccinesAged OutNo longer eligible based on patient's age to complete this topic Insurance Care Teams Team MemberRelationshipSpecialty[place] [address] [facility] [address] [place] [address] Referring PhysicianVascular Surgery10/21/24 Laci Dominique MD [address] [place] [address] [address] [place] [address] Referring PhysicianCardiology10/21/24 Sherie Ramon CNP Primary Care ProviderFami Medicine10/21/24
--- OUTSIDE RECORDS SUMMARY | 2025-04-03 09:24 | XMS_ITS | Data Portability ---
Author Organization [place] [facility] Address [address] [facility] [address] [place], [place] Assessment No assessment recorded. Plan of Treatment Reminders Order DateSubmit DateProviderLast Modified ByOrganization DetailsLast Modified TimeDetailsAppointmentsNone recorded.LabNone recorded.ReferralNone recorded. ProceduresNone recorded.SurgeriesNone recorded.ImagingNone recorded.Medication OrdersNone recorded. Patient TargetsNo targets recorded. Patient Instructions Encounter Date Encounter Id Patient Instructions Last Modified By Organization Details Last Modified Time 03/17/2025 [id number] Continue to follow up with PCP. Follow up with Split Leather Mosser, general surgeon , Pain doctor and Gastro Doctor. Recommended to stop smoking Drink more water and less caffeine jyqdswj230 Not available 03/17/2025 20:08:05 Reason for Referral None Reported. Problems Name Problem SNOMED Code Status Onset Date Resolution Date Notes Provider Name and Address Organization Details Recorded Time Intermittent claudication [id number] EDUIN Coronel [address] [facility] [address], [place], [place], , [place]03/17/2025 19:32:15Generalized osteoarthritis [id number] Delgado [address] [facility] [address], [place], [place], , [facility]03/17/2025 19:32:33Essential [id number] DEUIN Delgado [address] [facility] [address], [place], [place], , [place]03/17/2025 19:32:59Mixed [id number] EDUIN Delgado [address] [facility] [address], [place], , [facility]03/17/2025 19:33:30Nchdzi16347394BlcevrKionqp Miller, NP-C [address] [facility] [address], [place], , [facility]03/17/2025 19:34:00Acute hepatitis [id number] ActiveEDUIN Lizarraga [address] [address], [place], , [facility]03/17/2025 19:35:06History of sxsgvfjsu558286935 Ovfolzmzw95/27/2025Removal Reason: Colostomy due to blockage in 2023. reversal done in 2023. Cleared by general surgeon for 5 year follow up EDUIN Lizarraga [address] [address], [place], , [facility]03/17/2025 19:57:25Benign prostatic hyperplasia without outflow uhdlgpsmmqw942718667HmwtvmMejjzs Miller, NP-C [address] [address], [place], , [facility]03/17/2025 20:11:00 Problem Notes None recorded. Procedures Surgical History Date Name Laterality Status Provider Name and Address Organization Details Recorded Time 06/22/2023 closure of colostomy completedEDUIN Lizarraga [address] [address], [place], , [facility]03/17/2025 19:36:33colocolostomycompletedLinda [facility]se[facility]03/17/2025 07:57:26insertion of arterial stentcompletedDEDUIN Wyman [id number], [place], , [facility]03/17/2025 19:39:11 Imaging Results None recorded. Procedure Notes None recorded. Medical Equipment None Reported. Allergies No known drug allergies Medications Name Sig Start Date Stop Date Status Note LastModified by Organization Details LastModified Time cilostazol 100 mg tablet TAKE 1 TABLET BY MOUTH TWICE DAILY activeNot AvailableNot AvailableNot Availablebupropion HCl SR 150 mg tablet,12 hr sustained-releaseTAKE 1 TABLET BY MOUTH TWICE DAILYactiveNot AvailableNot AvailableNot Availablegabapentin 600 mg tabletTAKE 1 TABLET BY MOUTH THREE TIMES DAILY03/17/2025ompletedNot AvailableNot AvailableNot Availableatorvastatin 20 mg tabletTAKE 1 TABLET BY MOUTH EVERY DAYactiveNot AvailableNot AvailableNot Availableropinirole 1 mg tabletTAKE 1 TABLET BY MOUTH DAILY TAKE 1-3 HOURS before ptnhmhx8403/17/2025ompletedNot AvailableNot AvailableNot Availablenicotine 14 mg/24 hr daily transdermal patchApply 1 patch daily as dyewyrvi24/27/2025 completedNot AvailableNot AvailableNot Availablefluconazole 200 mg tabletTAKE 1 TABLET BY MOUTH EVERY DAY FOR 10 DAYSactiveNot AvailableNot AvailableNot Availableropinirole 3 mg tabletTAKE 1 TABLET BY MOUTH THREE TIMES DAILYactiveNot AvailableNot AvailableNot Availablemetronidazole 500 mg tabletTake 1 tablet by mouth 3 times daily for 1 day,Take 1 tablet at 9 AM, 3 PM, and 10 PM the day before bhrqhim8203/17/2025ompletedNot AvailableNot AvailableNot Available clopidogrel 75 mg tabletTake 1 tablet by mouth daily03/17/2025ompletedNot AvailableNot AvailableNot Availableoxycodone-acetaminophen 5 mg-325 mg tablet TAKE 1 TABLET BY MOUTH EVERY 6 HOURS NEEDED FOR PAIN for up to 3 (THREE) days, (maximum daily amount OF FOUR TABLETS)activeNot AvailableNot AvailableNot Availabletamsulosin 0.4 mg capsuleTAKE 1 CAPSULE BY MOUTH EVERY DAYactiveNot AvailableNot AvailableNot Availablegabapentin 800 mg tabletTAKE 1 TABLET BY MOUTH THREE TIMES DAILYactiveNot AvailableNot AvailableNot Availablebaclofen 10 mg tabletTAKE 1 TABLET BY MOUTH THREE TIMES DAILY NEEDED for muscle pain activeNot AvailableNot AvailableNot Availableropinirole 2 mg tabletTAKE 1 TABLET BY MOUTH TWICE DAILY03/17/2025ompletedNot AvailableNot AvailableNot Available pantoprazole 40 mg tablet,delayed releaseTAKE 1 TABLET BY MOUTH EVERY DAYactive Not AvailableNot AvailableNot Availablenicotine 21 mg/24 hr daily transdermal patchapply 1 patch topically DAILY FOR 14 DAYS03/17/2025ompletedNot Available Not AvailableNot Availablemetoprolol succinate ER 25 mg tablet,extended release 24 hrTAKE 1 TABLET BY MOUTH ONCE DAILYactiveNot AvailableNot AvailableNot Availableneomycin 500 mg tabletTake 2 tablet by mouth 3 times daily for 1 day, Take 1 tablet at 9 AM, 3 PM, and 10 PM the day before ryttxwb18/27/2025completed Not AvailableNot AvailableNot AvailableFeroSul 325 mg (65 mg iron) tabletTAKE 1 TABLET BY MOUTH EVERY DAYactiveNot AvailableNot AvailableNot Available cholecalciferol (vitamin D3) 50 mcg (2,000 unit) tabletTAKE 1 TABLET BY MOUTH EVERY DAY with supperactiveNot AvailableNot AvailableNot Available Vitals Date Recorded Body height Body temperature Respiratory rate Body mass index (BMI) Body weight Oxygen saturation Oxygen saturation in Arterial blood by Pulse oximetry Heart rate Systolic And Diastolic Provider Name and Address Organization Details Last Updated DateTime 5 175.26 cm 98.3 [degF] 15 /min 27.9 kg/m2 15867.9 6 g 95 % 95 % 63 /min 156/86 mm[Hg] EDUIN Lizarraga [id number], [place], [address] [place] [facility] 5 23:00:43 Social History None recorded. Functional Status None recorded. Mental Status None recorded. Family History Nothing Reported Notes:cancer in family Medical History No medical history recorded. Past Encounters Encounter ID Performer Location Encounter Start Date Encounter Closed Date Diagnosis/Indication Diagnosis SNOMED-CT Code Diagnosis ICD10 Code Diagnosis IMO Codes Diagnosis Note [id number] [facility] [address] [facility] [address] [place] [address] 03/17/2025 07:56:44 03/24/2025 07:21:17 Intermittent claudication 20015584 I73.9 4078 Stable, managed by DION and Yuriy. On cilostazol, HTN meds ropinirole for pain. Generalized cqngilcjgvyidm418171129R07.9 1453 Stable, managed by Sherie Ramon PCP. On baclofen and takes Tylenol #3 as needed. Essential amdezwejnnjo71451741D86 [address] Stable, managed by Dr. Yan. On metoprolol 25 mg dailyMixed hyperlipidemia 327221655N11.2 [address] Stable, managed by Sherie Ramon. On atorvastatin ttghnRfpzyr99850643S54.200 181394 Smoking cessation managed by Sherie Ramon. Member currently taking bupropion 150 mg daily for smoking cessation. Has not stopped but has decreased daily cigarette useAcute hepatitis Z289485770W65.10 [id number] Stable, managed by Dr. Reese Mclean . Currently finishing Epclusa.Benign prostatic hyperplasia without outflow bbygompistr153726399J98.0 [id number] Stable, managed by Dr Aneesh Jameson. On tamsulosin 0.4 mg at bedtime Health Concerns Section Related Observation LastModified by Organization Detai ls LastModified Time None Recorded Concern Status LastModified by Organization Details LastModified Time None Recorded Advance Directives Directive None Recorded Payers Insurance Date Sequence Insurance Name Policy Number Policy Bustillos Covered Member ID Bustillos Member ID Guarantor Name 03/25/2025 1 [employer] (MEDICARE REPLACEMENT /ADVANTAGE - HMO) [id number] Jasmeet Perdue [id number] Jasmeet Perdue Notes Date Note Type Note Provider Name and Address Orga nization Details Recorded Time 03/17/2025 text/html Here for healthy home visit. Lives in multi level house with spouse. Non clutter home. Low fall risk with only three stairs into home. No loose rugs seen. No clutter. Clean barnesLis Kingston NP-C [address], [address], [place] - [facility]03/21/2025 23:02:59
--- OUTSIDE RECORDS SUMMARY | 2025-04-03 09:24 | XMS_ITS | Clinical Summary ---
Author Organization [facility] Address [address] [place] [address] Care Team Providers Care Security Alarm Technician Name Role Phone Unavailable Primary Care Provider Unavailabl e Allergies No known active allergies Medications MedicationSigDispense QuantityRefillsLast FilledStart DateEnd DateStatus gabapentin (NEURONTIN) 600 mg tablet Take 600 mg by mouth three times daily.Active clopidogrel (PLAVIX) 75 mg tablet Take 75 mg by mouth once daily.Active atorvastatin (LIPITOR) 20 mg tablet Take 20 mg by mouth once daily.Active metoprolol succinate ER (TOPROL XL) 200 mg 24 hr tablet Take 200 mg by mouth once daily.Active baclofen (LIORESAL) 10 mg tablet Take 1 tablet by mouth three times daily.08/19/2022ctive cilostazol (PLETAL) 100 mg tablet Take 100 mg by mouth twice daily.10/16/2022ctive pantoprazole DR (PROTONIX) 40 mg tablet Take 40 mg by mouth once daily.10/10/2022ctive triamcinolone acetonide (KENALOG) 0.1 % ointment Apply 1 application to affected area three times daily as needed.07/22/2022 Active rOPINIRole (REQUIP) 1 mg tablet TAKE 1 TABLET BY MOUTH DAILY TAKE 1-3 HOURS before bedtimeActive Active Problems ProblemNoted DateDiagnosed DateAneurysm of infrarenal abdominal aorta08/23/2022 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 yzbanloqqirl22/04/2023 Nknfeydjquhbgk92/04/2023Herniated lumbar intervertebral disc08/23/2022Thrombosis of arteries of lower tegwsppeh58/04/2023Thrombosis of iliac ktxxnx7708/23/2022ack pain, biqbrdmuyzj27/04/2023 Family History Medical HistoryRelationCommentsCancerMotherRelationStatusCommentsMother Social History Tobacco UseTypesPacks/DayYears UsedDateSmoking Tobacco: Every TdpHxeigrfnuo430 Smokeless Tobacco: Never Tobacco Cessation:Ready to Q uit: Not Asked; Counseling Given: Not Answered Area Deprivation IndexAnswerDate RecordedNational Score (1-100), lower number is lower zltn117101/18/2023State Score (1-10), lower number is lower nben900 Data from: https://www.neighborhoodatlas.[facility]/. Last address used for vlexvwrblxx09 [facility]01/18/2023Sex and Gender InformationValueDate RecordedSex Assigned at BirthNot on fileLegal RizBlfe9608/22/2022 7:11 PM EDT Gender IdentityNot on fileSexual OrientationNot on file Last Filed Vital Signs Vital SignReadingTime TakenCommentsBlood Xazdrsfi390/8007 10:48 AM EDT Pulse--Temperature--Respiratory Lcty178611/25/2024 10:48 AM EDTOxygen Saturation-- Inhaled Oxygen Concentration--Zvmvna45.6 kg (180 lb)11/25/2024 10:48 AM EDT Idkbmn171.3 cm (5' 9 )11/25/2024 10:48 AM EDTBody Mass Index26.5807 10:48 AM EDT Plan of Treatment Health MaintenanceDue DateLast DoneCommentsAnxiety Fxkpliedv26/12/1978Depression Ekeklehet23/12/1978HIV Rcywxobjl39/12/1978Hepatitis C Fmgvmzmzq58/12/1978Lipid Xfhkfdbsh12/12/1995CT Vptrnviamste49/12/2005Cologuard (FIT-DNA)09/30/2004Fecal Occult Blood09/30/2004Prostate Cancer Screening Ukdcuacaqv28/12/2005 Kmdtcyikcxafw08/12/2005Lung Cancer Yxzcrtfwt17/12/2010Shingrix Vaccine (1 of 2) 09/30/2009Pneumococcal Vaccine: 50+ (2 of 2 - PPSV23, PCV20, or PCV21)06/07/2024 04/12/2024dvance Directive Fmanfeftcb62/12/2025Covid-19 Vaccine (3 - season)504/, 08/07/2020Influenza Vaccine (#1)2025 04/12/2024, 04/11/20199124Ccldklrlngm28/02/1246404Colorectal Cancer Screening 02/20/2025Diabetes Olxieshyu87, 07/02/2024, 05/02/2024, Additional history existsDTaP,Tdap,Td Vaccine (3 - Td or Tdap)08/22/2031 08/21/2021, 03/24/2017RSV Vaccine (1 - 1-dose 75+ series)5Abdominal Aortic Aneurysm PrblopozfOwkkzvbvd03/20/2023, 09/13/2021
--- OUTSIDE RECORDS SUMMARY | 2025-04-03 09:24 | XMS_ITS | Clinical Summary ---
Author Organization [facility] Address [address] [place] [address] Care Team Providers Care Utility Operator Name Role Phone Unavailable Primary Care Provider Unavailabl e Allergies No known active allergies Social History Tobacco UseTypesPacks/DayYears UsedDateSmoking Tobacco: Never AssessedSex and Gender InformationValueDate RecordedSex Assigned at BirthNot on fileLegal Sex Male08/03/2022 6:38 PM EDTGender IdentityNot on fileSexual OrientationNot on file Plan of Treatment Health MaintenanceDue DateLast DoneCommentsCT Bvliofsrsqfm56/12/1960FIT-DNA 1959FIT1959FOBT1959 1552Vfsxwhoqmaxej59/12/1960COVID-19 Vaccine ( season)/, 08/07/2020Influenza Vaccine (#1) /, 04/11/2019Pneumococcal Vaccine: 65+ Years (2 of 2 - PCV20 or PCV21)olonoscopy501/, 06/10/2024 Colorectal Cancer Kplxmhemh45/20/2035 Insurance
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
== END 2025-04-03 09:22 | disposition home or self-care (01) ==
LOC: PM 09:22
PROVIDERS: Visit Provider Nurse Practitioner
DX: M48.062 Spinal stenosis, lumbar region with neurogenic claudication (principal); M54.16 Radiculopathy, lumbar region
CPT/HCPCS: G0463